=== PATIENT | female | born 1975 | race Caucasian/White ===

== ENCOUNTER 2022-12-17 09:48 | Outpatient (RCR) | payer BC, SELFPAY | END 2022-12-31 14:00 | disposition home or self-care (01) | LOC: PT 09:48 | PROVIDERS: PCP Internal Medicine; Visit Provider Nurse Practitioner Family | DX: M47.812 Spondylosis without myelopathy or radiculopathy, cervical region (principal) | CPT/HCPCS: 97010; 97012; 97035; 97140; G0283 ==

== ENCOUNTER 2022-12-28 12:44 | Outpatient (OUT) | payer BC, SELFPAY ==
--- NOTE | 2022-12-28 15:16 | PM.CN ---
Consult Note: HPI Data of Consult Patient: known to practice within the last 3 years Consult date: 12/28/22 Requesting Physician: Booker Lizarraga MD Primary Care Provider: Shaikh Patria MD Consult Narrative Reason for consult: Neck pain Narrative: this is a pleasant 47-year-old female who presents for assessment. She has increasing pain throughout her axial neck and bilateral shoulder region. She recently underwent a cervical MRI, which is significant for multiple levels of spondylosis and facet arthropathy, as well as mild stenosis and multiple levels. She engages in physical therapy, acupuncture, and massage, which provide mild relief. She utilizes baclofen, which helps her sleep. She was also recently prescribed gabapentin, but has not started taking this yet. She denies adverse medication side effects or loss of bowel or bladder control. cc:: CC: Booker Lizarraga MD Review of Systems ROS Status of ROS 10 or more systems reviewed and unremarkable except as noted in history and below Meds Home Medications and Allergies Home Medications Medication Instructions Recorded Confirmed Type baclofen 10 mg tablet 10 mg PO .HS PRN muscle spasm 12/28/22 12/28/22 History citalopram 20 mg tablet 20 mg PO .QD 12/28/22 12/28/22 History hydrocortisone 10 mg tablet 10 mg PO .Every Other Day 12/28/22 12/28/22 History levothyroxine 50 mcg tablet 50 mcg PO .QD 12/28/22 12/28/22 History pantoprazole 40 mg tablet,delayed 40 mg PO .QD 12/28/22 12/28/22 History release Allergies Allergy/AdvReac Type Severity Reaction Status Date / Time No Known Drug Allergies Allergy Verified 12/28/22 14:29 Exam Constitutional Common normals: no apparent distress, oriented x3 and healthy appearing Neck & C-Spine Other: tenderness to palpation throughout the cervical spine and paraspinal muscles which her. Pain is elicited with flexion, extension, lateral rotation of the cervical spine. Facet loading maneuvers are positive bilaterally. Coordination remains intact. Gait remains nonantalgic. Respiratory Common normals: normal respiratory effort Effort & inspection: able to speak in complete sentences Extremity Common normals: normal to inspection Neuro Common normals: oriented x3, CN's II-XII intact bilaterally and no focal motor deficits Psych Common normals: mental status grossly normal and cooperative Assessment and Plan Assessment and Plan (1) Cervical spondylosis: (2) Cervical stenosis of spinal canal: Plan this is a pleasant 47-year-old female who presents for assessment. She has failed physical and medical modalities, as listed above. Imaging was reviewed, as noted above. Given her symptomatology, imaging findings, and failure to respond to more conservative measures, it is prudent to attempt diagnostic bilateral C5, C6, C7 medial branch blocks with the intention of proceeding to radiofrequency ablation. She is in agreement with this plan. Medications were reviewed. I suggested that she could trial the gabapentin for now and see how effective it may be. She expressed understanding. She will follow-up after the procedure is completed.
[2023-01-05] MEDS: HEPARIN SODIUM (PORCINE) PF LOCK FLUSH 500 UNIT/5 ML SYRINGE IV (12:31)
[2023-01-05 13:32] LABS: Basophils Absolute Auto 0.1 10^3/uL (0.0-0.1); Eosinophils Absolute Auto 0.2 10^3/uL (0.0-0.7); Eosinophils Percent Auto 4.7 % (0.9-7.0); Hematocrit 38.6 % (36.0-48.0); Hemoglobin 12.7 g/dL (12.0-16.0); Immature Granulocytes Abs Auto 0.01 10^3/uL (0.00-0.03); Immature Granulocytes Pct Auto 0.2 % (0.0-0.5); Lymphocytes Absolute Auto 1.8 10^3/uL (1.2-3.8); Lymphocytes Percent Auto 34.7 % (20.5-60.0); Mean Corpuscular HGB Conc 32.9 g/dL (29.9-35.2); Mean Corpuscular Hemoglobin 30.1 pg (26.7-34.0); Mean Corpuscular Volume 91.5 fL (81.0-99.0); Mean Platelet Volume 9.3 fL (9.5-13.5); Monocytes Absolute Auto 0.4 10^3/uL (0.3-0.8); Monocytes Percent Auto 8.4 % (1.7-12.0); Neutrophils Absolute Auto 2.6 10^3/uL (1.4-6.5); Platelet Count 273 10^3/uL (150-450); Red Blood Count 4.22 10^6/uL (4.20-5.40); Red Cell Distribution Width 12.6 % (11.0-15.0); White Blood Count 5.1 10^3/uL (4.0-11.0)
[2023-01-05 13:48] LABS: Erythrocyte Sedimentation Rate 24 mm/hr (<=20)
[2023-01-05 14:37] LABS: Alanine Aminotransferase 25 U/L (14-59); Albumin Level 3.5 g/dL (3.4-5.0); Alkaline Phosphatase 91 U/L (46-116); Aspartate Amino Transferase 27 U/L (15-37); BUN Creatinine Ratio 15.9; Bilirubin Total 0.5 mg/dL (0.2-1.0); Calcium 9.4 mg/dL (8.5-10.1); Carbon Dioxide 25.9 mmol/L (21.0-32.0); Chloride 104 mmol/L (98-107); Estimated GFR (African America >60 (>=60); Estimated GFR (Non-African Ame >60 (>=60); Globulin 3.6 g/dL; Glucose 84 mg/dL (74-106); Potassium 3.9 mmol/L (3.5-5.1); Sodium 140 mmol/L (136-145); Total Protein 7.1 g/dL (6.4-8.2)
[2023-01-05 16:54] LABS: C Reactive Protein <0.2 mg/dL (<=1.0)
[2023-01-06 07:09] LABS: Rheumatoid Factor (RF) <10.0 IU/mL (<14.0)
[2023-01-06 14:14] LABS: ANA Direct Negative (Negative)
== END 2022-12-28 13:30 | disposition home or self-care (01) ==
LOC: PM 03-09 12:44
PROVIDERS: PCP Internal Medicine; Visit Provider Anesthesiology
DX: M47.812 Spondylosis without myelopathy or radiculopathy, cervical region (principal); M48.02 Spinal stenosis, cervical region; M13.0 Polyarthritis, unspecified
CPT/HCPCS: 36415; 80053; 85025; 85652; 86038; 86140; 86430; G0463

== ENCOUNTER 2023-01-05 10:30 | Outpatient (OUT) | payer BC, SELFPAY | END 2023-01-05 10:31 | disposition home or self-care (01) | LOC: HEMC 01-14 09:19 | PROVIDERS: PCP Internal Medicine; Visit Provider Internal Medicine Hematology & Oncology | DX: M13.0 Polyarthritis, unspecified (principal); C50.919 Malignant neoplasm of unspecified site of unspecified female breast | CPT/HCPCS: 36415; 80053; 85025; 85652; 86038; 86140; 86430; G0463 ==

== ENCOUNTER 2023-01-11 06:40 | Day surgery (SDC) | payer BC, SELFPAY ==
[2023-01-11 06:53] VITALS: BP 101/65; PULSE 87; RESP 16; TEMP 36.6; O2SAT 98
[2023-01-11 07:34] VITALS: BP 96/63; PULSE 82; RESP 18; O2SAT 96
[2023-01-11] MEDS: BUPIVACAINE HCL 0.25% PF 25 MG/10 ML VIAL INJ (07:37)
[2023-01-11] MEDS: DEXAMETHASONE SODIUM PHOSPHATE 10 MG/ML VIAL INJ (07:39)
[2023-01-11] MEDS: LIDOCAINE HCL 2% PF 100 MG/5 ML VIAL INJ (07:39)
[2023-01-11 07:41] VITALS: BP 96/59; PULSE 64; RESP 18; O2SAT 95
--- NOTE | 2023-01-11 07:41 | W.PM.PROCNOT ---
Date of procedure: 01/11/23 Pre-op diagnosis: cervical spondylosis Post-op diagnosis: same Procedure: Bilateral C5, 6, 7 medial branch block Medications: Bupivacaine 0.25% 4cc The patient was seen and examined in the preoperative holding area.? The informed consent was obtained and placed on the chart.? The patient was brought to the medical procedure unit and placed in the prone position.? A timeout was completed verifying correct patient, procedure site, positioning, plan, and special equipment.? Using aseptic technique, the needle was placed at left C5.? Under direct fluoroscopic visualization, a Quincke tip needle was advanced to the midpoint of the waist of the articular pillar at the respective medial branch segment. The above-mentioned injectate was placed in a 1 mL aliquot proceeded by negative aspiration.? The needle was removed.? The procedure was completed at all left C6, 7. The same procedure, at the same levels, was then completed on the right side. Insertion site was covered.? Patient was taken to the postprocedural recovery area and monitored for an appropriate length of time before found suitable for discharge in the accompaniment of a responsible adult. Surgeon: Booker Lizarraga Condition: stable
== END 2023-01-11 07:46 | disposition home or self-care (01) ==
PROVIDERS: PCP Internal Medicine; Visit Provider Anesthesiology
DX: M47.812 Spondylosis without myelopathy or radiculopathy, cervical region (principal)
CPT/HCPCS: 64490; 64491; J1100

== ENCOUNTER 2023-01-13 15:05 | Outpatient (RCR) | payer BC, SELFPAY | END 2023-02-04 16:20 | disposition home or self-care (01) | LOC: OT 15:05 | PROVIDERS: PCP Internal Medicine; Visit Provider Internal Medicine | DX: M54.2 Cervicalgia (principal) | CPT/HCPCS: 97110; 97140; 97166 ==

== ENCOUNTER 2023-01-14 07:35 | Outpatient (OUT) | payer BC, SELFPAY ==
[2023-01-14 09:25] VITALS: BP 111/73; PULSE 71; RESP 18; TEMP 36.2; O2SAT 95
[2023-01-14] MEDS: COSYNTROPIN 0.25 MG VIAL IM (09:47)
--- NOTE | 2023-01-14 09:53 | PC.NURSE ---
Pt is here for port blood draw and Cosyntropin IM, cortisol level drawn, Cosyntropin given at 0947, will draw next cortisol level at 1017 then 1047. Patient tolerated port blood draw well and injection well.
[2023-01-14] MEDS: HEPARIN SODIUM (PORCINE) PF LOCK FLUSH 500 UNIT/5 ML SYRINGE IV (10:52)
== END 2023-01-14 07:36 | disposition home or self-care (01) ==
LOC: INF 07:36
PROVIDERS: PCP Internal Medicine; Visit Provider Internal Medicine
DX: E27.3 Drug-induced adrenocortical insufficiency (principal); E03.9 Hypothyroidism, unspecified
CPT/HCPCS: 36415; 36591; 82533

== ENCOUNTER 2023-01-29 10:11 | Outpatient (OUT) | payer BC, SELFPAY ==
--- NOTE | 2023-01-29 10:25 | P.CN_ITS ---
Consult Note: HPI Data of Consult Patient: known to practice within the last 3 years Consult date: 01/29/23 Requesting Physician: PATRICK TOMLIN NP Primary Care Provider: Shaikh Patria MD Consult Narrative Narrative: Patient is here for f/u of bilat cervical MBB done 01/11/23 . She recieved 90% relief of pain and increased fx for several hours. She would like to proceed with second MBB of same region. Pain today is bilat neck worse with ROM. No radiculopathy . No new sensorimotor or bowel or bladder issues. No adverse medication SE. Medication regimen assists patient with being better able to complete ADLs. cc:: CC: PATRICK TOMLIN NP Review of Systems ROS Status of ROS 10 or more systems reviewed and unremarkable except as noted in history and below [facility] Medical History (Updated 01/29/23 @ 10:43 by PATRICK TOMLIN NP) Surgical History Meds Home Medications and Allergies Home Medications Medication Instructions Recorded Confirmed Type baclofen 10 mg tablet 10 mg PO .HS PRN muscle spasm 12/28/22 01/11/23 History citalopram 20 mg tablet 20 mg PO .QD 12/28/22 01/11/23 History hydrocortisone 10 mg tablet 10 mg PO .Every Other Day 12/28/22 01/11/23 History levothyroxine 50 mcg tablet 50 mcg PO .QD 12/28/22 01/11/23 History pantoprazole 40 mg tablet,delayed 40 mg PO .QD 12/28/22 01/11/23 History release Allergies Allergy/AdvReac Type Severity Reaction Status Date / Time No Known Drug Allergies Allergy Verified 12/28/22 14:29 Exam Constitutional Documenting provider has reviewed patient's vital signs: yes Common normals: no apparent distress, average body habitus, oriented x3, no limitations, healthy appearing, alert and well nourished General appearance: cooperative and comfortable Orientation/consciousness: Yes awake, Yes oriented to person, Yes oriented to place and Yes oriented to time [facility] Common normals: normocephalic and moist oral mucous membranes Neck & C-Spine Common normals: supple General: normal visual inspection, trachea midline and tenderness Other: trigger point areas to left trapezius area. muscle strength 5/5 bilat UE with intact sensation Respiratory Common normals: normal respiratory effort, no retractions and no use of accessory muscles Effort & inspection: able to speak in complete sentences and symmetric chest movement Extremity Common normals: normal to inspection, full ROM and normal capillary refill Assessment and Plan Assessment and Plan (1) Cervical spondylosis: Plan schedule second dx MBB bilat cervical C5, 6, 7 under fluoroscopy
== END 2023-01-29 10:12 | disposition home or self-care (01) ==
PROVIDERS: PCP Internal Medicine; Visit Provider Nurse Practitioner
DX: M47.812 Spondylosis without myelopathy or radiculopathy, cervical region (principal)
CPT/HCPCS: G0463

== ENCOUNTER 2023-02-01 10:16 | Outpatient (OUT) | payer BC, SELFPAY ==
[2023-02-01 13:05] LABS: Anion Gap 12.8; BUN Creatinine Ratio 17.7; Calcium 9.3 mg/dL (8.5-10.1); Carbon Dioxide 26.4 mmol/L (21.0-32.0); Chloride 104 mmol/L (98-107); Estimated GFR (African America >60 (>=60); Estimated GFR (Non-African Ame >60 (>=60); Free T3 2.64 pg/mL (2.18-3.98); Glucose 90 mg/dL (74-106); Potassium 4.2 mmol/L (3.5-5.1); Sodium 139 mmol/L (136-145); Thyroid Stimulating Hormone 2.392 uIU/mL (0.358-3.740)
[2023-02-01 14:40] LABS: Free T4 0.89 ng/dL (0.76-1.46)
[2023-02-02 13:08] LABS: ACTH, Plasma 7.1 pg/mL (7.2-63.3)
== END 2023-02-01 10:17 | disposition home or self-care (01) ==
LOC: LAB 10:18
PROVIDERS: PCP Internal Medicine; Visit Provider Internal Medicine
DX: E27.3 Drug-induced adrenocortical insufficiency (principal); E03.9 Hypothyroidism, unspecified
CPT/HCPCS: 36415; 80048; 82024; 82533; 84439; 84443; 84481

== ENCOUNTER 2023-02-09 09:52 | Outpatient (OUT) | payer BC, SELFPAY | END 2023-02-09 09:53 | disposition home or self-care (01) | LOC: INF 09:53 | PROVIDERS: PCP Internal Medicine; Visit Provider Internal Medicine Hematology & Oncology | DX: C50.919 Malignant neoplasm of unspecified site of unspecified female breast (principal) | CPT/HCPCS: G0463 ==

== ENCOUNTER 2023-02-09 11:21 | Outpatient (OUT) | payer BC, SELFPAY ==
--- NOTE | 2023-02-09 11:26 | MM_ITS ---
Patient: ALLYSON HANCOCK Exam Date: 02/09/2023 : 1975 Gender:F Ordering : Jaci [place] Admission #: [id number] Family : SHAIKH Krystian HEARN . Order #: [id number] CLICK HERE TO VIEW EXAM RADIOLOGY REPORT PROCEDURE: MM TOMOSYNTHESIS DIAGNOSTIC BI COMPARISON: MAMMO POST BIOPSY RIGHT, 05/26/2021. MG MAMM RT DIAG FU, 05/13/2021. MG MAMM SCREEN 3D YUAN CAD, 04/22/2021. MG MAMM YUAN SCRN W CAD DIG, 07/05/2014. 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 LOCATION: [facility] BREAST COMPOSITION: Heterogeneously dense,which may obscure small masses. FINDINGS: DIAGNOSTIC CATEGORY 2--BENIGN FINDING: RIGHT BREAST: No significant suspicious finding. New rim calcified oil cyst at site of prior surgery, resection of previously seen mass. LEFT BREAST: No significant suspicious finding. No significant change has occurred. RECOMMENDATIONS: ROUTINE MAMMOGRAM AND CLINICAL EVALUATION IN 12 MONTHS. PLEASE NOTE: A NORMAL MAMMOGRAM DOES NOT EXCLUDE THE POSSIBILITY OF BREAST CANCER. A CLINICALLY SUSPICIOUS PALPABLE LUMP SHOULD BE BIOPSIED. Dictated by: Magdiel Leiva M.D. on 02/09/2023 at 12:40 Approved by: Magdiel Leiva M.D. on 02/09/2023 at 13:02
== END 2023-02-09 11:22 | disposition home or self-care (01) ==
LOC: MAMMO 11:21
PROVIDERS: PCP Internal Medicine; Visit Provider Internal Medicine Hematology & Oncology
DX: C50.911 Malignant neoplasm of unspecified site of right female breast (principal); Z98.890 Other specified postprocedural states; N60.01 Solitary cyst of right breast
CPT/HCPCS: 77066; G0279

== ENCOUNTER 2023-02-15 07:03 | Day surgery (SDC) | payer BC, SELFPAY ==
[2023-02-15 07:20] VITALS: BP 110/75; PULSE 68; RESP 16; TEMP 36.4; O2SAT 100
--- NOTE | 2023-02-15 08:00 | P.ON_ITS ---
Date of procedure: 02/15/23 Pre-op diagnosis: Lumbosacral spondylosis Post-op diagnosis: same Procedure: Procedure: L3-4, L4-5 radiofrequency ablation Medications: Bupivacaine 0.25% 6cc, kenalog 80mg The patient was seen and examined in the preoperative holding area.? The site w as marked.? Written informed consent was obtained and placed on the chart.? The patient was brought to the medical procedure unit and placed in the prone position.? A timeout was completed verifying correct patient, procedure, positioning, and special requirements.? The skin overlying the target points, the designated medial branch, were prepped and draped in the usual sterile fashion.? The target point was achieved with a 20-gauge 15 cm with a 10 mm curved active tip radiofrequency cannula under direct fluoroscopic visualization.? The needle was inserted at level L3 on the right side. Needle tip position was confirmed with lateral fluoroscopic position.? Motor stimulation was carried out at 2 Hz up to 5 volts with the absence of extremity activity.? This was repeated at level L4, L5 on right side.?? Sensory stimulation was carried out.? Concordant pain was realized at the above- mentioned sites.? Then radiofrequency lesioning was carried out times 90 seconds at 80 degrees times 2 lesions at each level.? The radiofrequency probe was removed prior to cannula removal.? The above-mentioned injectate was placed in 1 mL increments.? The needle was removed.? Insertion sites were covered.? The patient was taken to the postoperative recovery area and monitored for an appropriate length of time before being found suitable for discharge in the company of a responsible adult. The same procedure was then completed on the left side. Anesthesia: MAC Surgeon: Booker Lizarraga Pathology: none sent Condition: stable Disposition: no change
[2023-02-15] MEDS: BUPIVACAINE HCL 0.25% PF 25 MG/10 ML VIAL INJ (08:10)
[2023-02-15] MEDS: DEXAMETHASONE SODIUM PHOSPHATE 10 MG/ML VIAL INJ (08:10)
[2023-02-15] MEDS: LIDOCAINE HCL 2% PF 100 MG/5 ML VIAL INJ (08:11)
--- NOTE | 2023-02-15 08:20 | W.PM.PROCNOT ---
Date of procedure: 02/15/23 Pre-op diagnosis: Cervical spondylosis Post-op diagnosis: same Procedure: Procedure: Bilateral C5-6, C6-7 medial branch block Medications: Bupivacaine 0.25% 4cc The patient was seen and examined in the preoperative holding area.? The informed consent was obtained and placed on the chart.? The patient was brought to the medical procedure unit and placed in the prone position.? A timeout was completed verifying correct patient, procedure site, positioning, plan, and special equipment.? Using aseptic technique, the needle was placed at left C5.? Under direct fluoroscopic visualization, a Quincke tip needle was advanced to the midpoint of the waist of the articular pillar at the respective medial branch segment. The above-mentioned injectate was placed in a 1 mL aliquot proceeded by negative aspiration.? The needle was removed.? The procedure was completed at all left C6, 7. The same procedure, at the same levels, was then completed on the right side. Insertion site was covered.? Patient was taken to the postprocedural recovery area and monitored for an appropriate length of time before found suitable for discharge in the accompaniment of a responsible adult. Anesthesia: Local Surgeon: Booker Lizarraga Pathology: none sent Condition: stable Disposition: no change
[2023-02-15 13:39] VITALS: BP 117/72; BP 126/72; PULSE 60; PULSE 61; RESP 18; O2SAT 98; O2SAT 99
== END 2023-02-15 08:21 | disposition home or self-care (01) ==
PROVIDERS: PCP Internal Medicine; Visit Provider Anesthesiology
DX: M47.812 Spondylosis without myelopathy or radiculopathy, cervical region (principal)
CPT/HCPCS: 64490; 64491; J1100

== ENCOUNTER 2023-02-25 08:10 | Outpatient (OUT) | payer BC, SELFPAY ==
--- NOTE | 2023-02-25 08:18 | P.CN_ITS ---
Consult Note: HPI Data of Consult Patient: known to practice within the last 3 years Requesting Physician: Elsie Kwong NP Primary Care Provider: Shaikh Patria MD Consult Narrative Reason for consult: MBB bilateral C5-6 C6-7 #2 F/U cc:: CC: Elsie Kwong NP Review of Systems ROS Status of ROS 10 or more systems reviewed and unremarkable except as noted in history and below [facility] Medical History (Updated 02/25/23 @ 08:38 by Elsie Kwong NP) Surgical History Meds Home Medications and Allergies Home Medications Medication Instructions Recorded Confirmed Type baclofen 10 mg tablet 10 mg PO .HS PRN muscle spasm 12/28/22 02/15/23 History citalopram 20 mg tablet 20 mg PO .QD 12/28/22 02/15/23 History hydrocortisone 10 mg tablet 10 mg PO .Every Other Day 12/28/22 02/15/23 History levothyroxine 50 mcg tablet 50 mcg PO .QD 12/28/22 02/15/23 History pantoprazole 40 mg tablet,delayed 40 mg PO .QD 12/28/22 02/15/23 History release Allergies Allergy/AdvReac Type Severity Reaction Status Date / Time No Known Drug Allergies Allergy Verified 12/28/22 14:29 Exam Constitutional Common normals: no apparent distress, oriented x3, healthy appearing, alert and well nourished General appearance: cooperative HENCT Common normals: normocephalic Head and scalp: normocephalic Mouth: oral and palatal mucosa normal Eye Common normals: PERRL Pupil: PERRL Neck & C-Spine Common normals: full ROM (mild pain with ROM) General: normal visual inspection Cervical spine: cervical ROM normal and pain with cervical ROM Other: bilateral neck tightness radiating from cervical to upper shoulders Chest Common normals: inspection of chest normal Respiratory Common normals: normal respiratory effort, no retractions and no use of accessory muscles Back & Pelvis Common normals: thoracic and lumbar spine normal to inspection, no thoracic nor lumbar tenderness and thoraco-lumbar ROM normal Extremity Common normals: normal to inspection, full ROM, no clubbing, cyanosis or edema and no pedal edema Neuro Common normals: oriented x3, CN's II-XII intact bilaterally, moves all extremities, no focal motor deficits, no sensory deficits noted, deep tendon reflexes 2+ bilaterally and gait normal Sensorium/orientation: alert Motor exam: strength 5/5 throughout and no movement abnormalities noted Psych Common normals: mental status grossly normal, thought process normal, cooperative, affect normal, speech normal and activity/motor behavior normal Speech: normal speech Thought process: normal thought process Assessment and Plan Assessment and Plan (1) Cervical spondylosis: (2) Muscle spasms of neck: Plan The patient had significant relief of over 80%, with increased range of motion, decreased pain with provocative maneuvers, and increased ability to perform ADLs after diagnostic bilateral C5/6 C6/7 block #2.?? The patient has had over 3 months of moderate to severe neck pain with functional impairment and inadequate response to conservative care including NSAIDS (unless there are contraindication such as concurrent blood thinners), multiple oral or topical pain medications, and home exercise program/physical therapy.? Patient has completed >6 weeks of guided home exercise program and/or formal physical therapy program without relief of their symptoms.? I have reviewed the imaging of the cervical spine and no red flags were identified.? The imaging reveals radiographic findings consistent with cervical facet arthropathy. The Oswestry Disability Index was completed, and the patient scored a 22%.? The patient noted the following:?? moderate pain, pain completing ADLs, pain restricts sleep to less than 6hrs, and pain restricts journeys over 2hrs. We discussed the risks and benefits of the procedure with the patient, and we are NOT planning on using sedation. Proceed with thermal RFA under fluoroscopy on bilateral C5/6 C6/7, will be done as two separate procedures once on the left side and once on the right side. Discussed procedure, risks/benefits, and follow up with patient. Continue on baclofen 10mg HS PRN for muscle spasms. F/u 4 weeks after RFA
== END 2023-02-25 08:11 | disposition home or self-care (01) ==
PROVIDERS: PCP Internal Medicine; Visit Provider Nurse Practitioner
DX: M54.50 Low back pain, unspecified (principal); M54.2 Cervicalgia; M25.552 Pain in left hip; M47.812 Spondylosis without myelopathy or radiculopathy, cervical region; M47.816 Spondylosis without myelopathy or radiculopathy, lumbar region; M62.838 Other muscle spasm
CPT/HCPCS: 72050; 72110; 73502; G0463

== ENCOUNTER 2023-02-25 08:37 | Outpatient (OUT) | payer BC, SELFPAY ==
--- NOTE | 2023-02-25 08:53 | XR_ITS ---
The [address] [address] Patient Name: ALLYSON HANCOCK MRN: [id number] date: 1975 Sex: F Assigned Patient Location: [facility] Current Patient Location: [facility] Accession/Order Number: [id number] Exam Date: 02/25/2023 09:05 Report Date: 02/25/2023 09:54 At the request of: DARLENE BENITEZ Procedure: XR cervical spine 5V EXAMINATION: XR cervical spine 5V HISTORY: Neck pain ; chronic COMPARISON: XR C-spine 10/08/2020 FINDINGS: BONES: Mild straightening of normal lordotic curvature. No fracture or spondylolisthesis. Multilevel mild degenerative facet arthropathy. DISC SPACES: Moderate narrowing C4-5, C5-C6 with prominent posterior disc-osteophyte complexes causing moderate foramen narrowing. Mild disc height reduction and C7-T1. PARASPINOUS: Negative. No paraspinous abnormality is seen. OTHER: Left subclavian Port-A-Cath. XR/XR cervical spine 5V IMPRESSION: 1. Multilevel moderate degenerative changes of cervical spine; not appreciably changed. Consider MRI for further evaluation. Electronically authenticated by: BARBER VASQUEZ Date: 02/25/2023 09:54
--- NOTE | 2023-02-25 08:53 | XR_ITS ---
The [address] [address] Patient Name: ALLYSON HANCOCK MRN: [id number] date: 1975 Sex: F Assigned Patient Location: [facility] Current Patient Location: [facility] Accession/Order Number: [id number] Exam Date: 02/25/2023 09:05 Report Date: 02/25/2023 09:49 At the request of: DARLENE BENITEZ Procedure: XR lumbar spine min 4V EXAMINATION: XR lumbar spine min 4V HISTORY: Low back pain, left hip pain ; chronic COMPARISON: XR L-spine 05/07/2021 FINDINGS: BONES: Mild right convex curvature of lumbar spine. Mild degenerative facet arthropathy L4-5, L5-S1. DISC SPACES: Mild narrowing L2-3, L3-4, L4-5. PARASPINOUS: Negative. No paraspinous abnormality is seen. OTHER: Negative. XR/XR lumbar spine min 4V IMPRESSION: 1. Mild degenerative changes of lumbar spine; not appreciably changed compared to 05/07/2021. Electronically authenticated by: BARBER VASQUEZ Date: 02/25/2023 09:49
--- NOTE | 2023-02-25 09:03 | XR_ITS ---
The [address] [address] Patient Name: ALLYSON HANCOCK MRN: [id number] date: 1975 Sex: F Assigned Patient Location: [facility] Current Patient Location: [facility] Accession/Order Number: [id number] Exam Date: 02/25/2023 09:05 Report Date: 02/25/2023 09:46 At the request of: DARLENE BENITEZ Procedure: XR hip LT min 2V PROCEDURE: XR hip LT min 2V HISTORY: Left hip pain , chronic COMPARISON: None. FINDINGS: BONES:No fracture, acute abnormality, or significant arthropathy. SOFT TISSUES:No visible soft tissue swelling. EFFUSION:None visible. OTHER: Bilateral fallopian tube clips within pelvis. XR/XR hip LT min 2V IMPRESSION: 1. No acute bone abnormality or significant degenerative joint disease of the left hip. Electronically authenticated by: BARBER VASQUEZ Date: 02/25/2023 09:46
== END 2023-02-25 08:38 | disposition home or self-care (01) ==
LOC: RAD 08:39
PROVIDERS: PCP Internal Medicine; Visit Provider Internal Medicine Rheumatology
DX: M54.50 Low back pain, unspecified (principal); M54.2 Cervicalgia; M25.552 Pain in left hip; M47.812 Spondylosis without myelopathy or radiculopathy, cervical region; M47.816 Spondylosis without myelopathy or radiculopathy, lumbar region
CPT/HCPCS: 72050; 72110; 73502

== ENCOUNTER 2023-03-03 07:52 | Outpatient (OUT) | payer BC, SELFPAY ==
[2023-03-04 15:11] LABS: Cortisol - AM 0.6 ug/dL (6.2-19.4)
== END 2023-03-03 07:53 | disposition home or self-care (01) ==
PROVIDERS: PCP Internal Medicine; Visit Provider Internal Medicine Hematology & Oncology
DX: C50.911 Malignant neoplasm of unspecified site of right female breast (principal); M25.50 Pain in unspecified joint; M13.0 Polyarthritis, unspecified
CPT/HCPCS: 36415; 82533

== ENCOUNTER 2023-03-15 07:04 | Day surgery (SDC) | payer BC, SELFPAY ==
[2023-03-15 07:17] VITALS: BP 118/86; PULSE 71; RESP 16; TEMP 36.3; O2SAT 100
[2023-03-15] MEDS: DEXAMETHASONE SODIUM PHOSPHATE 10 MG/ML VIAL INJ (08:21)
[2023-03-15] MEDS: BUPIVACAINE HCL 0.25% PF 25 MG/10 ML VIAL 2 ML INJ (08:21)
[2023-03-15] MEDS: LIDOCAINE HCL 2% 400 MG/20 ML MDV 10 ML INJ (08:21)
[2023-03-15 08:22] VITALS: BP 116/74; PULSE 58; RESP 20; O2SAT 97
[2023-03-15 08:23] VITALS: RESP 20; O2SAT 97
[2023-03-15 08:24] VITALS: BP 111/64; PULSE 56
--- NOTE | 2023-03-15 08:42 | P.ON_ITS ---
Date of procedure: 03/15/23 Pre-op diagnosis: Cervical spondylosis Post-op diagnosis: same as pre-op Procedure: Procedure: Left C5-6, C6-7 radiofrequency ablation Medications: Bupivacaine 0.25% 3cc, lidocaine 1% 3cc, dexamethasone 10mg The patient was seen and examined in the preoperative holding area.? The site was marked.? Written informed consent was obtained and placed on the chart.? The patient was brought to the medical procedure unit and placed in the prone position.? A timeout was completed verifying correct patient, procedure, positioning, and special requirements.? The skin overlying the target points, the designated medial branch, were prepped and draped in the usual sterile fashion.? The target point was achieved with a 20-gauge 15 cm with a 10 mm curved active tip radiofrequency cannula under direct fluoroscopic visualization.? The needle was inserted at level left on the C5 side. Needle tip position was confirmed with lateral fluoroscopic position.? Motor stimulation was carried out at 2 Hz up to 5 volts with the absence of extremity activity.? This was repeated at level C6, 7 on left side.?? Sensory stimulation was carried out.? Concordant pain was realized at the above- mentioned sites.? Then radiofrequency lesioning was carried out times 90 seconds at 80 degrees times 2 lesions at each level.? The radiofrequency probe was removed prior to cannula removal.? The above-mentioned injectate was placed in 1 mL increments.? The needle was removed.? Insertion sites were covered.? The patient was taken to the postoperative recovery area and monitored for an appropriate length of time before being found suitable for discharge in the company of a responsible adult. Anesthesia: Local and None Surgeon: Booker Lizarraga Pathology: none sent Condition: stable Disposition: no change
== END 2023-03-15 08:34 | disposition home or self-care (01) ==
PROVIDERS: PCP Internal Medicine; Visit Provider Anesthesiology
DX: M47.812 Spondylosis without myelopathy or radiculopathy, cervical region (principal)
CPT/HCPCS: 64633; 64634; J1100

== ENCOUNTER 2023-03-29 06:45 | Day surgery (SDC) | payer BC, SELFPAY ==
[2023-03-29 07:12] VITALS: BP 118/67; PULSE 51; RESP 16; TEMP 36.7; O2SAT 99
[2023-03-29 07:38] VITALS: BP 134/75; PULSE 52; RESP 18; O2SAT 97
[2023-03-29] MEDS: BUPIVACAINE HCL 0.25% PF 25 MG/10 ML VIAL INJ (07:42)
[2023-03-29] MEDS: LIDOCAINE HCL 2% 400 MG/20 ML MDV 15 ML INJ (07:43)
[2023-03-29] MEDS: DEXAMETHASONE SODIUM PHOSPHATE 10 MG/ML VIAL INJ (07:43)
[2023-03-29 07:44] VITALS: BP 135/77; PULSE 49; RESP 18; O2SAT 98
--- NOTE | 2023-03-29 07:49 | P.ON_ITS ---
Date of procedure: 03/29/23 Pre-op diagnosis: cervical spondylosis Post-op diagnosis: same as pre-op Procedure: Procedure: Right C5-6, C6-7 radiofrequency ablation Medications: Bupivacaine 0.25% 3cc, lidocaine 1% 5cc, dexamethasone 10mg The patient was seen and examined in the preoperative holding area.? The site was marked.? Written informed consent was obtained and placed on the chart.? The patient was brought to the medical procedure unit and placed in the prone position.? A timeout was completed verifying correct patient, procedure, positioning, and special requirements.? The skin overlying the target points, the designated medial branch, were prepped and draped in the usual sterile fashion.? The target point was achieved with a 20-gauge 15 cm with a 10 mm curved active tip radiofrequency cannula under direct fluoroscopic visualization.? The needle was inserted at level C5 on the right side. Needle tip position was confirmed with lateral fluoroscopic position.? Motor stimulation was carried out at 2 Hz up to 5 volts with the absence of extremity activity.? This was repeated at level C6, 7 on right side.?? Sensory stimulation was carried out.? Concordant pain was realized at the above- mentioned sites.? Then radiofrequency lesioning was carried out times 90 seconds at 80 degrees times 2 lesions at each level.? The radiofrequency probe was removed prior to cannula removal.? The above-mentioned injectate was placed in 1 mL increments.? The needle was removed.? Insertion sites were covered.? The patient was taken to the postoperative recovery area and monitored for an appropriate length of time before being found suitable for discharge in the company of a responsible adult. Anesthesia: Local Surgeon: Booker Lizarraga Pathology: none sent Condition: stable Disposition: no change
== END 2023-03-29 07:52 | disposition home or self-care (01) ==
PROVIDERS: PCP Internal Medicine; Visit Provider Anesthesiology
DX: M47.812 Spondylosis without myelopathy or radiculopathy, cervical region (principal)
CPT/HCPCS: 64633; 64634; J1100

== ENCOUNTER 2023-04-08 08:42 | Outpatient (OUT) | payer BC, SELFPAY ==
[2023-04-09 16:08] LABS: Cortisol - AM 0.6 ug/dL (6.2-19.4)
== END 2023-04-08 08:43 | disposition home or self-care (01) ==
PROVIDERS: PCP Internal Medicine; Visit Provider Internal Medicine Hematology & Oncology
DX: C50.911 Malignant neoplasm of unspecified site of right female breast (principal); M25.50 Pain in unspecified joint; M13.0 Polyarthritis, unspecified
CPT/HCPCS: 36415; 82533

== ENCOUNTER 2023-04-08 08:52 | Outpatient (OUT) | payer BC, SELFPAY ==
[2023-04-08 09:53] LABS: Basophils Absolute Auto 0.1 10^3/uL (0.0-0.1); Basophils Percent Auto 0.8 % (0.2-2.0); Eosinophils Absolute Auto 0.1 10^3/uL (0.0-0.7); Eosinophils Percent Auto 1.5 % (0.9-7.0); Hematocrit 42.4 % (36.0-48.0); Hemoglobin 13.4 g/dL (12.0-16.0); Immature Granulocytes Abs Auto 0.07 10^3/uL (0.00-0.03); Immature Granulocytes Pct Auto 1.1 % (0.0-0.5); Lymphocytes Percent Auto 30.2 % (20.5-60.0); Mean Corpuscular HGB Conc 31.6 g/dL (29.9-35.2); Mean Corpuscular Hemoglobin 30.1 pg (26.7-34.0); Mean Corpuscular Volume 95.3 fL (81.0-99.0); Mean Platelet Volume 9.1 fL (9.5-13.5); Monocytes Absolute Auto 0.4 10^3/uL (0.3-0.8); Monocytes Percent Auto 5.9 % (1.7-12.0); Neutrophils Percent Auto 60.5 % (43.0-75.0); Platelet Count 251 10^3/uL (150-450); Red Blood Count 4.45 10^6/uL (4.20-5.40); White Blood Count 6.6 10^3/uL (4.0-11.0)
[2023-04-08 10:14] LABS: Estimated Average Glucose 111 mg/dL; Glycohemoglobin A1C 5.5 % (4.5-6.2)
[2023-04-08 10:23] LABS: Alanine Aminotransferase 21 U/L (14-59); Albumin Level 3.9 g/dL (3.4-5.0); Alkaline Phosphatase 112 U/L (46-116); Anion Gap 12.9; Aspartate Amino Transferase 12 U/L (15-37); BUN Creatinine Ratio 31.9; Bilirubin Total 0.5 mg/dL (0.2-1.0); Calcium 9.6 mg/dL (8.5-10.1); Carbon Dioxide 25.5 mmol/L (21.0-32.0); Chloride 103 mmol/L (98-107); Chol HDL Ratio 3.4; Cholesterol 313 mg/dL (<=200); Estimated GFR (African America >60 (>=60); Estimated GFR (Non-African Ame >60 (>=60); Globulin 3.9 g/dL; Glucose 80 mg/dL (74-106); HDL Cholesterol 91 mg/dL (40-60); Potassium 4.4 mmol/L (3.5-5.1); Sodium 137 mmol/L (136-145); Thyroid Stimulating Hormone 2.952 uIU/mL (0.358-3.740); Total Protein 7.8 g/dL (6.4-8.2); Triglycerides 108 mg/dL (<=150); VLDL CHOLESTEROL 21.6 mg/dL
== END 2023-04-08 08:53 | disposition home or self-care (01) ==
LOC: LAB 08:53
PROVIDERS: PCP Internal Medicine; Visit Provider Internal Medicine
DX: Z00.00 Encounter for general adult medical examination without abnormal findings (principal); C50.911 Malignant neoplasm of unspecified site of right female breast; M25.50 Pain in unspecified joint; M13.0 Polyarthritis, unspecified
CPT/HCPCS: 36415; 80053; 80061; 82533; 83036; 84443; 85025

== ENCOUNTER 2023-04-12 20:42 | Outpatient (REF) | payer BC, SELFPAY ==
[2023-04-15 16:10] LABS: Age Gdln ACOG Testing Note (.); HPV Aptima Negative (Negative); IGP, Aptima HPV, rfx 16/18,45 Note (.)
== END 2023-04-12 20:43 | disposition home or self-care (01) ==
LOC: LAB 20:42
PROVIDERS: PCP Internal Medicine; Visit Provider Obstetrics & Gynecology
DX: Z12.4 Encounter for screening for malignant neoplasm of cervix (principal)
CPT/HCPCS: 87624; G0145

== ENCOUNTER 2023-04-28 10:27 | Outpatient (OUT) | payer BC, SELFPAY ==
[2023-04-28 11:47] LABS: Albumin Level 3.8 g/dL (3.4-5.0); Anion Gap 10.8; BUN Creatinine Ratio 19.4; Calcium 8.8 mg/dL (8.5-10.1); Carbon Dioxide 25.6 mmol/L (21.0-32.0); Chloride 103 mmol/L (98-107); Estimated GFR (African America >60 (>=60); Estimated GFR (Non-African Ame >60 (>=60); Free T3 2.14 pg/mL (2.18-3.98); Glucose 76 mg/dL (74-106); Potassium 4.4 mmol/L (3.5-5.1); Sodium 135 mmol/L (136-145); Thyroid Stimulating Hormone 0.826 uIU/mL (0.358-3.740)
[2023-04-28 12:03] LABS: Free T4 1.11 ng/dL (0.76-1.46)
== END 2023-04-28 10:28 | disposition home or self-care (01) ==
LOC: LAB 10:30
PROVIDERS: PCP Internal Medicine; Visit Provider Internal Medicine
DX: E03.9 Hypothyroidism, unspecified (principal); E27.3 Drug-induced adrenocortical insufficiency
CPT/HCPCS: 36415; 80069; 82306; 84439; 84443; 84481

== ENCOUNTER 2023-04-28 14:37 | Outpatient (OUT) | payer BC, SELFPAY ==
--- NOTE | 2023-04-28 14:55 | P.CN_ITS ---
Consult Note: HPI Data of Consult Patient: known to practice within the last 3 years Requesting Physician: Elsie Kwong NP Primary Care Provider: Shaikh Patria MD Consult Narrative Reason for consult: f/u Narrative: Tenisha Harrington a pleasant 48 year old female presents for evaluation and management of chronic neck pain. Patient recently had right and left C5-6 C6-7 RFAs with mild to no relief. Today rating pain 4/10 and burning. Patient utilizes biofreeze, heat, and ice with mild relief. Ibuprofen mildly beneficial. Patient would like to discuss additional treatment options. cc:: CC: Elsie Kwong NP Review of Systems ROS Status of ROS 10 or more systems reviewed and unremarkable except as noted in history and below Musculoskeletal Reports: neck pain PFSH PFSH Medical History Breast cancer ?C50.919 - Malignant neoplasm of unspecified site of unspecified female breast (ICD-10) Carpal tunnel syndrome ?G56.00 - Carpal tunnel syndrome, unspecified upper limb (ICD-10) Former smoker ?Z87.891 - Personal history of nicotine dependence (ICD-10) High cholesterol ?E78.00 - Pure hypercholesterolemia, unspecified (ICD-10) Low back pain ?M54.50 - Low back pain, unspecified (ICD-10) Neck pain ?M54.2 - Cervicalgia (ICD-10) Numbness and tingling ?R20.0 - Anesthesia of skin (ICD-10) ?R20.2 - Paresthesia of skin (ICD-10) Osteoarthritis ?M19.90 - Unspecified osteoarthritis, unspecified site (ICD-10) TMJ (dislocation of temporomandibular joint) ?S03.00XA - Dislocation of jaw, unspecified side, initial encounter (ICD-10) Upper back pain ?M54.9 - Dorsalgia, unspecified (ICD-10) Surgical History H/O foot surgery ?Z98.890 - Other specified postprocedural states (ICD-10) Hx of cholecystectomy ?Z90.49 - Acquired absence of other specified parts of digestive tract (ICD- 10) Hx of tubal ligation ?Z98.51 - Tubal ligation status (ICD-10) S/P lumpectomy of breast ?Z98.890 - Other specified postprocedural states (ICD-10) Meds Home Medications and Allergies Home Medications Medication Instructions Recorded Confirmed Type baclofen 10 mg tablet 10 mg PO .HS PRN muscle spasm 12/28/22 03/29/23 History citalopram 20 mg tablet 20 mg PO .QD 12/28/22 03/29/23 History hydrocortisone 10 mg tablet 10 mg PO .Every Other Day 12/28/22 03/29/23 History levothyroxine 50 mcg tablet 50 mcg PO .QD 12/28/22 03/29/23 History pantoprazole 40 mg tablet,delayed 40 mg PO .QD 12/28/22 03/29/23 History release Allergies Allergy/AdvReac Type Severity Reaction Status Date / Time No Known Drug Allergies Allergy Verified 03/29/23 07:25 Exam Constitutional Documenting provider has reviewed patient's vital signs: yes Common normals: no apparent distress, oriented x3, healthy appearing, alert and well nourished General appearance: cooperative HENMT Common normals: normocephalic, hearing grossly normal bilaterally and moist oral mucous membranes Head and scalp: normocephalic Eye Common normals: PERRL Pupil: PERRL Neck & C-Spine Common normals: full ROM General: normal visual inspection Cervical spine: pain with cervical ROM, cervical spine tenderness and paracervical muscle tenderness Chest Common normals: inspection of chest normal Respiratory Common normals: normal respiratory effort, no retractions and no use of accessory muscles Neuro Common normals: oriented x3, CN's II-XII intact bilaterally, moves all extremities, no focal motor deficits, no sensory deficits noted, deep tendon reflexes 2+ bilaterally and gait normal Sensorium/orientation: alert Motor exam: strength 5/5 throughout and no movement abnormalities noted Psych Common normals: mental status grossly normal, thought process normal, cooperative, affect normal, speech normal and activity/motor behavior normal Speech: normal speech Thought process: normal thought process Results Additional Findings Additional findings: I have checked an [facility] report on this patient today and there are no aberrancies noted in the prescribing history.?? A drug screen was completed and reviewed within the last year, and if there has not been a drug screen completed we ordered one today to monitor higher risk, state monitored pain medication use. As part of providing excellent, safe, comprehensive care, the following was completed at our patient's visit: 1. A medication reconciliation and review to ensure accurate knowledge of current/active medications, including asking our patients to inform us about any [id number] medications or herbal remedies/nutritional s upplements/alternative remedies. 2. A review to specifically ensure our patients have had annual screening for: elevated body mass index (BMI), tobacco use, screening for depression, and screening for unhealthy alcohol use. When screening is concerning, patients are provided with education and the specific recommendation to discuss the concerning health issue and treatment options with their primary care provider. Assessment and Plan Assessment and Plan (1) Cervical spondylosis: Assessment and Plan: mild to no relief from recent r and l cervical RFA at 5-6 6-7 facets (2) Muscle spasms of neck: Plan increase baclofen 10mg BID PRN muscle spasms, consider switching in the future PT with massage and dry needling transdermal therapeutics cream #8 TID-QID to neck f/u 2 months, sooner if needed
== END 2023-04-28 14:38 | disposition home or self-care (01) ==
LOC: PM 14:37
PROVIDERS: PCP Internal Medicine; Visit Provider Nurse Practitioner
DX: M47.812 Spondylosis without myelopathy or radiculopathy, cervical region (principal); M62.838 Other muscle spasm; E27.3 Drug-induced adrenocortical insufficiency; E03.9 Hypothyroidism, unspecified
CPT/HCPCS: 36415; 80069; 82306; 84439; 84443; 84481; G0463

== ENCOUNTER 2023-05-04 14:54 | Outpatient (RCR) | payer BC, SELFPAY | END 2023-05-18 23:59 | disposition home or self-care (01) | LOC: INF 14:54 | PROVIDERS: PCP Internal Medicine; Visit Provider Internal Medicine Hematology & Oncology | DX: C50.911 Malignant neoplasm of unspecified site of right female breast (principal); M25.50 Pain in unspecified joint; M13.0 Polyarthritis, unspecified | CPT/HCPCS: G0463 ==

== ENCOUNTER 2023-05-07 15:00 | Outpatient (RCR) | payer BC, SELFPAY | END 2023-05-29 17:17 | disposition home or self-care (01) | LOC: PT 15:00 | PROVIDERS: PCP Internal Medicine; Visit Provider Nurse Practitioner | DX: M47.812 Spondylosis without myelopathy or radiculopathy, cervical region (principal); M62.838 Other muscle spasm | CPT/HCPCS: 20560; 97110; 97140; 97161 ==

== ENCOUNTER 2023-07-20 09:54 | Outpatient (OUT) | payer BC, SELFPAY ==
--- OUTSIDE RECORDS SUMMARY | 2023-07-20 10:05 | XMS_ITS | CCD ---
Author Name Unknown Address [address] [facility] [address] [place] [address] Organization [facility] Care Team Providers Care Construction Recruiter Name Role Phone Jasbir Limon Primary Care Provider [phone] Franco Stokes Unavailable Jasbir Limon MD Primary Care Provider Eliel Hurd Primary Care Provider [phone] BRYAN MURGUIAANCE P Admitting Unavailable SHANTAL, DIANA P Attending Unavailable ELIEL HURD Primary Care Unavailable BRYAN MURGUIAANCE P Referring Unavailable ELIEL HURD Primary Care Unavailable MD Eliel Hurd Primary Care Provider [phone] MD Eliel Hurd Referring Provider MD Kallie Chang Attending Provider [phone] NON STAFF Attending Provider Unavailable MD Eliel Hurd Primary Care Provider [phone] MD Eliel Hurd Referring Provider MD Kallie Chang Attending Provider BRYAN MURGUIAANCE P Referring Unavailable ELIEL HURD Primary Care Unavailable ELIEL HURD Primary Care Unavailable DIANA MURGUIA P Referring Unavailable MD Eliel Hurd Primary Care Provider [phone] MD Larissa Saunders Attending Provider MD Eliel Hurd Referring Provider [phone] MD Kallie Chang Attending Provider [phone] MD Eliel Hurd Primary Care Provider MD Larissa Saunders Attending Provider MD Eliel Hurd Referring Provider MD Kallie Chang Attending Provider MD Eliel Hurd Primary Care Provider [phone] DO Adam Vickers Attending Provider MD Eliel Hurd Referring Provider MD Kallie Chang Attending Provider MD Eliel Hurd Referring Provider [phone] MD Kallie Chang Attending Provider MD Eliel Hurd Referring Provider [phone] MD Kallie Chang Attending Provider [phone] MD Eliel Hurd Primary Care Provider [phone] MD Eliel Hurd Referring Provider MD Kallie Chang Attending Provider MD Eliel Hurd Primary Care Provider [phone] MD Eliel Hurd Referring Provider [phone] MD Kallie Chang Attending Provider EARNEST HDZ Admitting Unavailable HURD ., DR ELIEL Rouse Primary Care Unavailable EARNEST HDZ Attending Unavailable EARNEST HDZ Consulting Unavailable HURD ., DR ELIEL Rouse Attending Unavailable HURD ., DR ELIEL Rouse Consulting Unavailable HURD ., DR ELIEL Rouse Primary Care Unavailable HURD ., DR ELIEL Rouse Admitting Unavailable ZIEBER, DR BARBER Christianson Consulting Unavailable HURD ., DR ELIEL Rouse Attending Unavailable HURD ., DR ELIEL Rouse Admitting Unavailable HURD ., DR ELIEL Rouse Consulting Unavailable HURD ., DR ELIEL Rouse Primary Care Unavailable VERNELL ., DR FREITAS Consulting Unavailable VERNELL ., DR FREITAS Admitting Unavailable HURD ., DR ELIEL Rouse Primary Care Unavailable VERNELL ., DR FREITAS Attending Unavailable [place], DR KRISTA Delgado Consulting Unavailable HURD ., DR ELIEL Rouse Primary Care Unavailable VERNELL ., DR FREITAS Admitting Unavailable VERNELL ., DR FREITAS Attending Unavailable VERNELL ., DR FREITAS Consulting Unavailable BRIEN KOEHLER Admitting Unavailable SHAIKH Jun HEARN Primary Care Unavailable BRIEN KOEHLER Attending Unavailable [facility] Consulting Unavailable DI ., DR ELIEL Rouse Primary Care Unavailable MONIQUE ., DR KAITLIN Norton Admitting Unavailable MONIQUE ., DR KAITLIN Norton Attending Unavailable GIEDJESSIE, ANDRI Admitting Unavailable JUAN RICE Referring Unavailable SHAIKH Jun HEARN Primary Care Unavailable GIBUD, ANDVENKAT Attending Unavailable Elham POZO, Booker Briones Attending Unavailable Elham POZO, Booker Briones Attending Unavailable MD Eliel Hurd Primary Care Provider MD Eliazar Gibson Attending Provider Eliel Hurd Primary Care Unavailable Eliazar Gibson Admitting Unavailable Eliazar Gibson Attending Unavailable Rizwan Vickers Admitting Unavailab Rizwan Schuster Attending UnavailEliel Taylor Primary Care Unavailable Kallie Chang Attending Unavailable Eliel Hurd Primary Care Unavailable Eliel Hurd Referring Unavailable Kallie Chang Admitting Unavailable Ismael BERMAN Attending Unavailable SYDNIE LITTEL Primary Care Unavailable Allergies Allergy Classification Reported Allergen(s) Allergy Type Date of Onset Reaction(s) Facility (1 source) No Known Medication Allergies; Translations: [No Known Medication Allergies] Propensity to adverse reactions (disorder) [facility] Repository Medications Current Medications Medication Drug Class(es) Dates Sig (Normalized) Sig (Original) acetaminophen 250 mg / aspirin 250 mg / caffeine 65 mg oral tablet (14 sources) Platelet Aggregation Inhibitor, Nonsteroidal Anti-inflammatory Drug, Central Nervous System Stimulant, Methylxanthine Start: 07-08-2021 take 1 tablet by mouth every four to six hours Aspirin-Acetamin ophen-Caffeine (Excedrin Migraine) 250-250-65 mg Tablet Active 1 TAB PO EVERY 4-6 HOURS July 08, 2021 1:00am take 1 tablet by adair th every six hours as needed for headache rkbxuyl-qzgimlrndutue-zrgcnkjv (EXCEDRIN MIGRAINE) 250-250-65 MG per tablet Take 1 tablet by mouth every 6 hours as needed for Headaches 0 Active acetaminophen 325 mg / HYDROcodone bitartrate 5 mg oral tablet (1 source) Opioid Agonist Start: 02-17-2022 End: 02-22-2022 HYDROcodone-acetaminophen (NORCO) 5-325 MG per tablet Indications: Status post breast lumpectomy , Status post breast reconstruction Take 1 tablet by mouth every 6 hours as needed for Pain for up to 5 days. Intended supply: 5 days. Take lowest dose possible to manage pain 20 tablet 0 02/17/2022 02/22/2022 Active baclofen 10 mg oral tablet (1 source) gamma-Aminobut yric Acid-ergic Agonist Start: 02-17-2022 End: 02-27-2022 baclofen (LIORESAL) 10 MG ta blet Take 1 tablet by mouth in the morning and 1 tablet at noon and 1 tablet before bedtime. Do all this for 10 days. 30 tablet 0 02/17/2022 02/27/2022 Active calcium chloride 0.0014 meq/ml / potassium chloride 0.004 meq/ml / sodium chloride 0.103 meq/ml / sodium lactate 0.028 meq/ml injectable solution (1 source) Start: 02-18-2022 lactated ringe rs infusion Start: 02-18-2022 lactated ringe rs infusion citalopram 20 mg oral tablet (17 sources) Serotonin Reuptake Inhibitor Start: 02-27-2021 take 20 mg by mouth once daily Citalopram Active 20 MG PO Daily July 08, 2021 1:00am Comment on above: Take 20 mg by mouth once daily. 2 ml fentaNYL 0.05 mg/ml injection (1 source) Opioid Agonist Start: 02-17-2022 fentaNYL (SUBLIMAZE) injection 25 mcg gabapentin 300 mg oral capsule (1 source) Anti-epileptic Agent Start: 02-17-2022 End: 03-03-2022 gabapentin (NEURONTIN) 300 MG capsule Take 1 capsule by mouth in the morning and 1 capsule at noon and 1 capsule before bedtime. Do all this for 14 days. Intended supply: 90 days. 42 capsule 0 02/17/2022 03/03/2022 Active hydrocortisone 20 mg oral tablet (10 sources) Corticosteroid Start: 09-18-2022 Hydrocortisone Active 20 MG PO Daily September 18, 2022 1:00am 20mg and 10mg in the afternoon Start: 06-18-2022 End: 08-06-2022 Hydrocortisone Discontinued 0 .ROUTE .COMPLEX 90 June 18, 2022 1:00am August 06, 2022 2:31pm take 2 tabs in am and 1 tab in pm 0.5 ml HYDROmorphone hydrochloride 1 mg/ml prefilled syringe (1 source) Opioid Agonist Start: 02-17-2022 HYDROmorphone HCl PF (DILAUDID) injection 0.25 mg Ibuprofen (1 source) Nonsteroidal Anti-inflammatory Drug Ibuprofen Active 10 ml lidocaine hydrochloride 10 mg/ml injection (2 sources) Antiarrhythmic, Amide Local Anesthetic Start: 02-18-2022 End: 02-18-2022 lidocaine PF 1 % injection 1 mL Start: 02-17-2022 End: 02-17-2022 lidocaine (LMX) 4 % cream ondansetron 8 mg disintegrating oral tablet (20 sources) Serotonin-3 Receptor Antagonist Start: 06-02-2022 take 8 mg by mouth every eight hours Ondansetron Active 8 MG PO Q8H June 02, 2022 1:00am Start: 02-17-2022 End: 02-17-2022 ondansetron (ZOFRAN) injecti on 4 mg Start: 07-08-2021 End: 03-12-2022 take 8 mg by mouth every eight hours Ondansetron Hcl Discontinued 8 MG PO Q8H July 08, 2021 1:00am March 12, 2022 8:55am Start: 07-03-2021 End: 08-14-2021 take 8 mg by mouth twice daily Ondansetron Discontinue d 8 MG PO Twice daily July 03, 2021 1:00am August 14, 2021 10:21am 72 hr scopolamine 0.0139 mg/hr transdermal system (1 source) Anticholinergic Start: 02-17-2022 scopolamine (TRANSDERM-SCOP) transdermal patch 1 patch sertraline 50 mg oral tablet (1 source) Serotonin Reuptake Inhibitor take 1 tablet by mouth every twenty-four hours Sertraline HCl 50 MG 1 tablet Orally Once a day for 30 day(s) Active simvastatin 20 mg oral tablet (1 source) HMG-CoA Reductase Inhibitor take 1 tablet by mouth every twenty-four hours Simvastatin 20 MG 1 tablet in the evening Orally Once a day Active 5 ml sodium chloride 9 mg/ml injection (8 sources) Start: 02-17-2022 sodium chloride flush 0.9 % injection 5-40 mL Start: 02-17-2022 0.9 % sodium c hloride infusion Start: 02-17-2022 sodium chlorid e flush 0.9 % injection 5-40 mL Start: 02-04-2022 sodium chlorid e flush 0.9 % injection 10 mL Start: 02-04-2022 End: 02-04-2022 0.9 % sodium chloride bolus Completed/Discontinued Medications Medication Drug Class(es) Dates Sig (Normalized) Sig (Original) cephalexin 500 mg oral capsule (11 sources) Cephalosporin Antibacterial Start: 07-03-2021 End: 07-08-2021 take 500 mg by mouth three times daily Cephalexin Discontinued 500 MG PO Three times daily July 03, 2021 1:00am July 08, 2021 3:07pm dexamethasone 4 mg oral tablet (20 sources) Corticosteroid Start: 09-17-2021 End: 03-12-2022 take 8 mg by mouth twice daily Dexamethasone Discontinued 8 MG PO Twice daily September 17, 2021 1:00am March 12, 2022 8:55am for 3 days after treatment Start: 07-03-2021 End: 07-22-2021 take 4 mg by mouth once daily Dexamethasone Discontinu ed 4 MG PO Daily July 03, 2021 1:00am July 22, 2021 3:49pm diclofenac sodium 50 mg delayed release oral tablet (14 sources) Nonsteroidal Anti-inflammatory Drug Start: 07-08-2021 End: 03-12-2022 take 50 mg by mouth three times daily Diclofenac Sodium Discontinued 50 MG PO Three times daily July 08, 2021 1:00am March 12, 2022 8:55am DICLOFENAC SODIU M PO Take by mouth 0 Active 1 ml diphenhydrAMINE hydrochloride 50 mg/ml cartridge (1 source) Histamine-1 Receptor Antagonist Start: 02-17-2022 End: 02-17-2022 diphenhydrAMINE (BENADRYL) injection 12.5 mg Start: 02-17-2022 End: 02-17-2022 diphenhydrAMINE (BENADRYL) i njection 12.5 mg gadoteridol (PROHANCE) injection 18 mL (1 source) Start: 02-04-2022 End: 02-04-2022 gadoteridol (PROHANCE) injection 18 mL levothyroxine sodium 0.05 mg oral tablet (8 sources) l-Thyroxine Start: 09-04-2022 End: 10-12-2022 take 1 tablet by mouth once daily Levothyroxine (Synthroid) 50 mcg Tablet Discontinued 50 MCG PO Daily September 04, 2022 2:26pm October 12, 2022 10:38am LORazepam 1 mg oral tablet (20 sources) Benzodiazepine Start: 07-03-2021 End: 03-12-2022 take 1 mg by mouth every six hours Lorazepam Discontinued 1 MG PO Q6H 56 September 04, 2021 12:48pm March 12, 2022 8:55am mometasone furoate 1 mg/ml topical cream (15 sources) Corticosteroid Start: 04-16-2022 End: 08-06-2022 Mometasone Discontinued 1 APPLIC TOPICAL Daily June 09, 2022 1:12pm August 06, 2022 2:31pm omeprazole 20 mg delayed release oral capsule (15 sources) Proton Pump Inhibitor Start: 11-29-2021 take 1 capsule by mouth twice daily omeprazole (PRILOSEC) 20 mg capsule Take 20 mg by mouth twice daily. 0 11/29/2021 Active Start: 07-08-2021 take 20 mg by mouth once daily Omeprazole Active 20 MG PO Daily July 08, 2021 1:00am Comment on above: Take 20 mg by mouth twice daily. pantoprazole 40 mg injection (1 source) Proton Pump Inhibitor Start: 02-17-2022 End: 02-17-2022 pantoprazole (PROTONIX) injection 40 mg Start: 02-17-2022 End: 02-17-2022 pantoprazole (PROTONIX) inje ction 40 mg predniSONE 20 mg oral tablet (18 sources) Start: 08-17-2022 End: 09-04-2022 take 10 mg by mouth once daily Prednisone Discontinued 10 MG PO Daily 60 August 17, 2022 1:01pm September 04, 2022 3:10pm Start: 08-14-2022 End: 09-18-2022 take 40 mg by mouth once daily, then take 30 mg by mouth once daily, then take 20 mg by mouth once daily Prednisone Discontinued 20 MG PO As Directed 60 September 04, 2022 3:09pm September 18, 2022 2:35pm take 40mg po daily for 7d then 30mg po daily for 7d then 20mg po daily Start: 08-14-2022 Prednisone Act laci 20 MG PO As Directed August 14, 2022 12:00am tapered dose, patient down to 1/2 20mg tab daily Start: 07-23-2022 End: 08-06-2022 take 1 tablet by mouth once daily Prednisone Discontinued 0 .ROUTE .COMPLEX 42 July 23, 2022 1:00am August 06, 2022 2:31pm 20 mg orally--take 3 tabs daily x 1 week, then 2 tabs daily x 1 week, then 1 tab daily x 1 week, then 0.5mg daily x 1 week prochlorperazine 10 mg oral tablet (20 sources) Phenothiazine Start: 07-03-2021 End: 03-12-2022 take 10 mg by mouth every six hours Prochlorperazine Maleate Discontinued 10 MG PO Q6H October 13, 2021 8:26am October 22, 2021 8:35am silver sulfADIAZINE 10 mg/ml topical cream (7 sources) Sulfonamide Antibacterial Start: 06-09-2022 End: 08-06-2022 Silver Sulfadiazine (Silvadene) 1 % Cream Discontinued 1 APPLIC TOPICAL Daily 60 June 09, 2022 1:00am August 06, 2022 2:31pm apply a 1.5 mm thickness to open/blistered areas only technetium Tc 99m tilmanocept (LYMPHOSEEK) injection 0.6 millicurie (1 source) Start: 02-17-2022 End: 02-17-2022 technetium Tc 99m tilmanocept (LYMPHOSEEK) injection 0.6 millicurie Problems Active Problems Problem Classification Problem Date Documented Date Episodic/Chronic Administrative/social admission (11 sources) Patient encounter status; Translations: [Other specified counseling] 06-19-2022 Episodic Cancer of breast (20 sources) Malignant neoplasm of female breast; Translations: [Malignant neoplasm of unspecified site of right female breast] Onset: 11-25-2022 Chronic Cancer of breast (1 source) History of malignant neoplasm of breast; Translations: [Personal history of malignant neoplasm of breast] Episodic Diseases of white blood cells (20 sources) Neutropenia due to and following chemotherapy; Translations: [Agranulocytosis secondary to cancer chemotherapy] 11-13-2021 Chronic Disorders of lipid metabolism (3 sources) Hyperlipidemia; Translations: [Hyperlipidemia, unspecified] Onset: 01-23-2022 01-23-2022 Chronic Esophageal disorders (1 source) Gastro-esophageal reflux disease without esophagitis; Translations: [GERD WITHOUT ESOPHAGITIS] Onset: 04-05-2022 Chronic Maintenance chemotherapy; radiotherapy (20 sources) Patient encounter status; Translations: [Encounter for antineoplastic chemotherapy] 09-24-2021 Chronic Nonmalignant breast conditions (1 source) Breasts asymmetrical; Translations: [Disproportion of reconstructed breast] Episodic Other endocrine disorders (6 sources) Adrenal cortical hypofunction; 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] 06-19-2022 Chronic Other endocrine disorders (5 sources) Drug-induced adrenocortical insufficiency; Translations: [Glucocorticoid deficiency] 07-22-2022 Chronic Other nervous system disorders (1 source) Carpal tunnel syndrome; Translations: [Carpal tunnel syndrome, left upper limb] 11-25-2022 Chronic Other non-traumatic joint disorders (6 sources) Multiple joint pain; Translations: [Pain in unspecified joint] 06-19-2022 Episodic Other non-traumatic joint disorders (6 sources) Pain in unspecified joint; Translations: [Pain in joint, multiple sites] Onset: 04-07-2023 07-22-2022 Episodic Residual codes; unclassified (3 sources) H/O: artificial organ/tissue; Translations: [Other specified postprocedural states] Onset: 02-17-2022 Episodic Spondylosis; intervertebral disc disorders; other back problems (5 sources) Cervical spondylosis; Translations: [Spondylosis without myelopathy or radiculopathy, cervical region] Onset: 09-15-2021 Resolved: 09-15-2021 Chronic Spondylosis; intervertebral disc disorders; other back problems (20 sources) Neck pain; Translations: [Cervical pain (neck)] 09-24-2021 Episodic Thyroid disorders (5 sources) Acquired hypothyroidism; Translations: [Hypothyroidism, unspecified] 09-04-2022 Chronic Unclassified (2 sources) CONTACT W/AND (SUSP) EXPOS COVID-19; Translations: [CONTACT W/AND (SUSP) EXPOS COVID-19] Onset: 04-01-2022 Unclassified (1 source) Malignant neoplasm of unspecified site of right female breast; Translations: [Malignant neoplasm of unspecified site of right female breast] Onset: 11-25-2022 Viral infection (1 source) COVID-19; Translations: [COVID-19] Onset: 04-01-2022 Past or Other Problems Problem Classification Problem Date Documented Date Episodic/Chronic Abdominal pain (4 sources) Epigastric pain; Translations: [EPIGASTRIC PAIN] Onset: 2022 Episodic Immunizations and screening for infectious disease (1 source) Encounter for screening for human papillomavirus (HPV); Translations: [ENC SCREENING HUMAN PAPILLOMAVIRUS] Onset: 04-08-2022 Episodic Other connective tissue disease (1 source) Other symptoms and signs involving the musculoskeletal system; Translations: [Other symptoms and signs involving the musculoskeletal system] Onset: 06-19-2022 Episodic Other screening for suspected conditions (not mental disorders or infectious disease) (5 sources) Mammography abnormal; Translations: [Other abnormal and inconclusive findings on diagnostic imaging of breast] Onset: 04-07-2022 Episodic Residual codes; unclassified (4 sources) Personal history of antineoplastic chemotherapy; Translations: [PERSONAL HX ANTINEOPLASTIC CHEMO] Onset: 04-14-2022 Episodic Unclassified (1 source) CONTACT W/AND (SUSP) EXPOS COVID-19; Translations: [CONTACT W/AND (SUSP) EXPOS COVID-19] Onset: 03-14-2022 Results Test Name Value Interpretation Reference Range Facility Physician Referralon 023 Physician Referral [id number] .[id number] Normal [facility] Physician Referralon 023 Physician Referral [id number] .[id number] Normal [facility] LEONARD Antinuclear Antibodieson 04-07-2023 Antinuclear Abs, IFA Positive Critically abnormal . [facility] Comment on above: Result Comment: Nega tive <1:80 Borderline 1:80 Positive >1:80 Performed By: #### C RAYMON CBC #### [facility] [address] Homogeneous Pattern 1:80 Normal . [facility] Comment on above: Result Comment: ICAP nomenclature: AC-1 Performed By: #### C RAYMON, CBC #### [facility] [address] [place] [id number] [facility] Note 1 Normal . [facility] Comment on above: Result Comment: For more information about Hep-2 cell patterns use ANApatterns.org, the official website for the International Consensus on Antinuclear Antibody (LEONARD) Patterns (ICAP). A positive LEONARD result may occur in healthy individuals (low titer) or be associated with a variety of diseases. See interpretation chart which is not all inclusive: Pattern Antigen Detected Suggested Disease Association Homogeneous DNA(ds,ss), SLE - High titers Nucleosomes, Histones Drug-induced SLE Speckled Sm, PARAFFIN PLANT OPERATOR, SCL-70, SLE,MCTD,PSS (diffuse form), SS-A/SS-B Sjogrens Nucleolar SCL-70, PM-1/SCL High titers Scleroderma, PM/DM Centromere Centromere PSS (limited form) w/Crest syndrome variable Nuclear Dot [id number] Primary Biliary Cirrhosis Nuclear GP210, Primary Biliary Cirrhosis Membrane scarlett A,B,C Performed at: [address] [id number] Detective And Intelligence Analyst: Red Sena PhD, Phone: [phone] PERFORMED BY: [place] [address] PATHOLOGIST ARTIFICIAL INSEMINATOR CHITO HENDRICKS M.D. Performed By: #### C MP, CBC #### [facility] [address] [place] [address] [place] Speckled Pattern 1:160 High . [facility] Comment on above: Result Comment: ICAP nomenclature: AC-2,4,5,29 Performed By: #### C MP, CBC #### [facility] [address] [place] [address] [place] C reactive protein [Mass/vol ume] in Serum or PlasmaOrdered By: Eliazar Gibson on 04-07-2023 CRP [Mass/Vol] < 0.5 mg/dL 0.0-0.5 [facility] C-Reactive Proteinon 023 CRP [Mass/Vol] mg/L Normal 0.0-0.5 [facility] Comment on above: Result Comment: PERF ORMED BY: [place] [address] PATHOLOGIST ARTIFICIAL INSEMINATOR CHITO HENDRICKS M.D. Performed By: #### C MP, CBC #### [facility] [address] [place] [address] Erythrocyte Sedimentation Ra logan 04-07-2023 ESR (Bld) [Velocity] 22 mm/h High 0- [facility] Comment on above: Result Comment: PERF ORMED BY: [place] [address] PATHOLOGIST ARTIFICIAL INSEMINATOR CHTIO HENDRICKS M.D. Performed By: #### C MP, CBC #### [facility] [address] [place] [address] Erythrocyte sedimentation ra te by Photometric methodOrdered By: Eliazar Gibson on 04-07-2023 ESR Photometric method (Bld) [Velocity] 22 mm/hr 0 [facility] Retail - Clinical Noteon Retail - Clinical Note [id number]. [id number]:127 Normal [facility] Free T4 (Free Thyroxine)on 0 11-16-2022 Free T4 [Mass/Vol] 1.03 ng/dL Normal 0.61-1.12 [facility] Comment on above: Performed By: #### C MP, TSH3, RAÚL, T4F #### [facility] [address] [place] [address] Serum or plasma thyroperoxid ase antibody assay (units/volume)Ordered By: Elizabeth Pérez on 11-16-2022 TPO Ab Qn 13 [IU]/mL [facility] Comment on above: Performed at: [facility] [address] [id number] Director: Red Sena PhD, Phone: [phone] Thyroid Peroxidase Antibodie son 11-16-2022 Thyroid Peroxidase Antibodies 13 Normal - [facility] Comment on above: Result Comment: Perf ormed at: CB - [facility] [address] [id number] Detective And Intelligence Analyst: Red Sena PhD, Phone: [phone] PERFORMED BY: [place] [address] PATHOLOGIST ARTIFICIAL INSEMINATOR CHITO HENDRICKS M.D. Performed By: #### C MP, TSH3, RAÚL, T4F #### [facility] [address] [place] [address] [place] Thyroid Stimulating Hormoneo n 11-16-2022 TSH Qn 1.03 m[IU]/L Normal 0.45-5.33 [facility] Comment on above: Result Comment: PERF ORMED BY: [place] [address] PATHOLOGIST ARTIFICIAL INSEMINATOR CHITO HENDRICKS M.D. Performed By: #### C MP, TSH3, RAÚL, T4F #### [address] [address] [place] Thyrotropin [Units/volume] i n Serum or PlasmaOrdered By: lEizabeth Pérez on 11-16-2022 TSH Qn 1.03 m[IU]/L 0.45-5.33 [facility] Thyroxine (T4) free [Mass/vo lume] in Serum or PlasmaOrdered By: Elizabeth Pérez on 11-16-2022 Free T4 [Mass/Vol] 1.03 ng/dL 0.61-1.12 [facility] Triiodothyronine (T3) Freeon 11-16-2022 Triiodothyronine (T3) Free 4.39 pg/mL High 2.50-3.90 [facility] Comment on above: Result Comment: PERF ORMED BY: [address] [address] PATHOLOGIST ARTIFICIAL INSEMINATOR CHITO HENDRICKS M.D. Performed By: #### C MP, CBC #### [facility] [address] [place] [id number] [facility] Triiodothyronine (T3) Free [ Mass/volume] in Serum or PlasmaOrdered By: Elizabeth Pérez on 11-16-2022 Free T3 [Mass/Vol] 4.39 pg/mL 2.50-3.90 [facility] Adrenocorticotropic Hormone PLon 09-16-[address] <1.5 Low 7.2-63.3 [facility] Comment on above: Result Comment: ACTH reference interval for samples collected between 7 and 10 AM. Performed at: - [facility] [address], [place], [place] [id number] Detective And Intelligence Analyst: Red Sena PhD, Phone: [phone] PERFORMED BY: [place] [address] PATHOLOGIST ARTIFICIAL INSEMINATOR CHITO HENDRICKS M.D. Performed By: #### C BC, CMP #### [address] Albumin [Mass/volume] in Bod y fluidOrdered By: Kallie Chang on 09-16-2022 Albumin (Body fld) [Mass/Vol] 3.7 g/dL 3.2-5.5 [facility] Alkaline phosphatase [Enzyma tic activity/volume] in Serum or PlasmaOrdered By: Kallie Chang on 09-16-2022 ALP [Catalytic activity/Vol] 85 U/L 32-92 [facility] Aspartate aminotransferase [ Enzymatic activity/volume] in Serum or PlasmaOrdered By: Kallie Chang on 09-16-2022 AST [Catalytic activity/Vol] 20 U/L 10-42 [facility] Basophils Auto (Bld) [#/Vol] Ordered By: Kallie Chang on 09-16-2022 Basophils (Bld) [#/Vol] 0.0 10*3/uL 0.0-0.2 [facility] Basophils/100 WBC Auto (Bld) Ordered By: Kallie Chang on 09-16-2022 Basophils/100 WBC (Bld) 0.3 % . [facility] Bilirubin.total [Mass/volume ] in Serum or PlasmaOrdered By: Kallie Chang on 09-16-2022 Bilirubin [Mass/Vol] 0.6 mg/dL 0.3-1.2 [facility] Calcium [Mass/volume] in Ser um or PlasmaOrdered By: Kallie Chang on 09-16-2022 Calcium [Mass/Vol] 9.2 mg/dL 8.2-10.2 [facility] Carbon dioxide, total [Moles /volume] in Serum or PlasmaOrdered By: Kallie Chang on 09-16-2022 CO2 [Moles/Vol] 23.1 mmol/L 22.0-30.0 [facility] Chloride [Moles/volume] in S nathaly or PlasmaOrdered By: Kallie Chang on 09-16-2022 Chloride [Moles/Vol] 102 mmol/L 95-114 [facility] Complete Blood Count Auto Di ffon 09-16-2022 Basophils (Bld) [#/Vol] 0.0 10*3/uL Normal 0.0-0.2 [facility] Comment on above: Result Comment: PERF ORMED BY: [place] [address] PATHOLOGIST ARTIFICIAL INSEMINATOR CHITO HENDIRCKS M.D. Performed By: #### C MP, TSH3, RAÚL, T4F #### [facility] [address] [place] [address] Basophils/100 WBC (Bld) 0.3 % Normal . [facility] Comment on above: Performed By: #### C MP, TSH3, RAÚL, T4F #### [facility] [address] Eosinophils (Bld) [#/Vol] 0.0 10*3/uL Normal 0.0-0.45 [facility] Comment on above: Performed By: #### C MP, TSH3, RAÚL, T4F #### [facility] [address] [place] [address] Eosinophils/100 WBC (Bld) 0.1 % Normal . [facility] Comment on above: Performed By: #### C MP, TSH3, RAÚL, T4F #### [facility] [address] [place] [address] Erythrocyte distribution width (RBC) [Ratio] 15.1 % Normal 11.9-15.3 [facility] Comment on above: Performed By: #### C MP, TSH3, RAÚL, T4F #### [facility] [address] [place] [address] Hematocrit (Bld) [Volume fraction] 38.3 % Normal 34.0-46.4 [facility] Comment on above: Performed By: #### C MP, TSH3, RAÚL, T4F #### [address] Hemoglobin (Bld) [Mass/Vol] 12.5 g/dL Normal 11.8-15.4 [facility] Comment on above: Performed By: #### C MP, TSH3, RAÚL, T4F #### [address] Lymphocytes (Bld) [#/Vol] 0.7 10*3/uL Low 1.00-4.8 [facility] Comment on above: Performed By: #### C MP, TSH3, RAÚL, T4F #### [address] Lymphocytes/100 WBC (Bld) 6.2 % Normal . [facility] Comment on above: Performed By: #### C MP, TSH3, RAÚL, T4F #### [address] MCH (RBC) [Entitic mass] 30.2 pg Normal 24.7-34.3 [facility] Comment on above: Performed By: #### C MP, TSH3, RAÚL, T4F #### [address] MCV (RBC) [Entitic vol] 92.4 fL Normal 80-100 [facility] Comment on above: Performed By: #### C MP, TSH3, RAÚL, T4F #### [address] Mean Corpuscular HGB Conc 32.7 g/dL Normal 32.0-35.0 [facility] Comment on above: Performed By: #### C MP, TSH3, RAÚL, T4F #### [address] Monocytes (Bld) [#/Vol] 0.3 10*3/uL Normal 0.0-0.8 [facility] Comment on above: Performed By: #### C MP, TSH3, RAÚL, T4F #### [address] [address] [place] [address] [place] Monocytes/100 WBC (Bld) 2.3 % Normal . [facility] Comment on above: Performed By: #### C MP, TSH3, RAÚL, T4F #### [facility] [address] Neutrophils (Bld) [#/Vol] 10.4 10*3/uL High 1.8-7.7 [facility] Comment on above: Performed By: #### C MP, TSH3, RAÚL, T4F #### [facility] [address] [place] [address] Neutrophils/100 WBC (Bld) 91.1 % Normal . [facility] Comment on above: Performed By: #### C MP, TSH3, RAÚL, T4F #### [facility] [address] [place] [address] NRBC% 0.1 /100{WBC} Normal 0-0.5 [facility] Comment on above: Performed By: #### C MP, TSH3, RAÚL, T4F #### [facility] [address] [place] [address] Platelet mean volume (Bld) [Entitic vol] 6.9 fL Normal 6.3-10.7 [facility] Comment on above: Performed By: #### C MP, TSH3, RAÚL, T4F #### [place] [address] [place] Platelets (Bld) [#/Vol] 287 10*3/uL Normal 150-450 [facility] Comment on above: Performed By: #### C MP, TSH3, RAÚL, T4F #### [facility] [address] [place] [address] [place] RBC (Bld) [#/Vol] 4.14 10*6/uL Normal 3.60-5.00 [facility] Comment on above: Performed By: #### C MP, TSH3, RAÚL, T4F #### [place] [address] [place] WBC (Bld) [#/Vol] 11.5 10*3/uL Normal 3.8-11.6 [facility] Comment on above: Performed By: #### C MP, TSH3, RAÚL, T4F #### [facility] [address] [place] [address] Comprehensive Metabolic Pane arthur 09-16-2022 Albumin [Mass/Vol] 3.7 g/dL Normal 3.2-5.5 [facility] Comment on above: Performed By: #### C MP, TSH3, RAÚL, T4F #### [facility] [address] [place] [address] Albumin/Globulin [Mass ratio] 1.3 {ratio} Normal [facility] Comment on above: Performed By: #### C MP, TSH3, RAÚL, T4F #### [facility] [address] [place] [address] ALP [Catalytic activity/Vol] 85 U/L Normal 32-92 [facility] Comment on above: Performed By: #### C MP, TSH3, RAÚL, T4F #### [facility] [address] [place] [address] ALT [Catalytic activity/Vol] 16 U/L Normal 10-60 [facility] Comment on above: Performed By: #### C MP, TSH3, RAÚL, T4F #### [address] Anion gap [Moles/Vol] 13.2 mmol/L Normal 6.0-15.0 [facility] Comment on above: Performed By: #### C MP, TSH3, RAÚL, T4F #### [facility] [address] [place] [address] AST [Catalytic activity/Vol] 20 U/L Normal 10-42 [facility] Comment on above: Performed By: #### C MP, TSH3, RAÚL, T4F #### [facility] [address] [place] [address] Bilirubin [Mass/Vol] 0.6 mg/dL Normal 0.3-1.2 [facility] Comment on above: Performed By: #### C MP, TSH3, RAÚL, T4F #### [facility] [address] Calcium [Mass/Vol] 9.2 mg/dL Normal 8.2-10.2 [facility] Comment on above: Performed By: #### C MP, TSH3, RAÚL, T4F #### [facility] [address] Chloride [Moles/Vol] 102 mmol/L Normal 95-114 [facility] Comment on above: Performed By: #### C MP, TSH3, RAÚL, T4F #### [address] CO2 [Moles/Vol] 23.1 mmol/L Normal 22.0-30.0 [facility] Comment on above: Performed By: #### C MP, TSH3, RAÚL, T4F #### [address] Creatinine [Mass/Vol] 0.98 mg/dL Normal 0.44-1.03 [facility] Comment on above: Performed By: #### C MP, TSH3, RAÚL, T4F #### [address] Creatinine Clr Calc Pharmacy 72.74 [facility] Comment on above: Result Comment: PERF ORMED BY: [place] [address] PATHOLOGIST ARTIFICIAL INSEMINATOR CHITO HENDRICKS M.D. Performed By: #### C MP, TSH3, RAÚL, T4F #### [address] Estimated GFR ( Janis > 60 [facility] Comment on above: Result Comment: GFR estimated reference range: According to KDOQI guidelines, <60 ml/min/1.73m2 is sufficient to diagnose a patient with chronic kidney disease. Performed By: #### C MP, TSH3, RAÚL, T4F #### [address] Estimated GFR (Non- Am > 60 [facility] Comment on above: Performed By: #### C MP, TSH3, RAÚL, T4F #### [facility] [address] [place] [address] [place] Globulin (S) [Mass/Vol] 2.8 g/dL Normal [facility] Comment on above: Performed By: #### C MP, TSH3, RAÚL, T4F #### [facility] [address] [place] [address] [place] Glucose [Mass/Vol] 176 mg/dL High 70-100 [facility] Comment on above: Result Comment: [facility] Glucose Reference Range is dependent on time and content of last meal. Glucose of more than 200 mg/dL in a nonstressed, ambulatory subject supports the diagnosis of Diabetes Mellitus. ADA recommended reference range Performed By: #### C MP, TSH3, RAÚL, T4F #### [facility] [address] Potassium [Moles/Vol] 4.3 mmol/L Normal 3.5-5.1 [facility] Comment on above: Performed By: #### C MP, TSH3, RAÚL, T4F #### [facility] [address] [place] [address] [place] Protein [Mass/Vol] 6.5 g/dL Normal 6.1-7.9 [facility] Comment on above: Performed By: #### C MP, TSH3, RAÚL, T4F #### [facility] [address] [place] [address] [place] Sodium [Moles/Vol] 134 mmol/L Low 136-146 [facility] Comment on above: Performed By: #### C MP, TSH3, RAÚL, T4F #### [facility] [address] [place] [address] [place] Urea nitrogen [Mass/Vol] 15 mg/dL Normal 9-23 [facility] Comment on above: Performed By: #### C MP, TSH3, RAÚL, T4F #### [facility] [address] [place] [address] [place] Cortisolon 09-16-2022 Cortisol 3.7 ug/dL Normal [facility] Comment on above: Result Comment: Refe rence range: AM 6 - 24 ug/dl PM <10 ug/dl PERFORMED BY: [place] [address] PATHOLOGIST ARTIFICIAL INSEMINATOR CHITO HENDRICKS M.D. Performed By: #### C BC, CMP #### [facility] [address] Creatinine and Glomerular fi ltration rate.predicted panel (S/P/Bld)Ordered By: Kallie Chang on 09-16-2022 Creatinine [Mass/Vol] 0.98 mg/dL 0.44-1.03 [facility] Eosinophils Auto (Bld) [#/Vo l]Ordered By: Kallie Chang on 09-16-2022 Eosinophils (Bld) [#/Vol] 0.0 10*3/uL 0.0-0.45 [facility] Eosinophils/100 WBC Auto (Bl d)Ordered By: Kallie Chang on 09-16-2022 Eosinophils/100 WBC (Bld) 0.1 % . [facility] Erythrocyte distribution wid th Auto (RBC) [Ratio]Ordered By: Kallie Chang on 09-16-2022 Erythrocyte distribution width (RBC) [Ratio] 15.1 % 11.9-15.3 [facility] Estimated glomerular filtrat ion rate (GFR) non- AmericanOrdered By: Kallie Chang on 09-16-2022 GFR/1.73 sq M.predicted among non-blacks MDRD (S/P/Bld) [Vol rate/Area] > 60 mL/Min [facility] Free T4 (Free Thyroxine)on 0 09-16-2022 Free T4 [Mass/Vol] 0.84 ng/dL Normal 0.61-1.12 [facility] Comment on above: Performed By: #### C BC, CMP #### [facility] [address] Globulin Calc (S) [Mass/Vol] Ordered By: Kallie Chang on 09-16-2022 Globulin (S) [Mass/Vol] 2.8 g/dL [facility] Glucose [Mass/volume] in Ser um or PlasmaOrdered By: Kallie Chang on 09-16-2022 Glucose [Mass/Vol] 176 mg/dL 70-100 [facility] Comment on above: ADA recommended refe rence rangeRandom Glucose Reference Range is dependent on time and content of last meal. Glucose of more than 200 mg/dL in a nonstressed, ambulatory subject supports the diagnosis of Diabetes Mellitus. Hematocrit Auto (Bld) [Volum e fraction]Ordered By: Kallie Chang on 09-16-2022 Hematocrit (Bld) [Volume fraction] 38.3 % 34.0-46.4 [facility] Hemoglobin [Mass/volume] in BloodOrdered By: Kallie Chang on 09-16-2022 Hemoglobin (Bld) [Mass/Vol] 12.5 g/dL 11.8-15.4 [facility] Leukocytes [#/volume] correc annie for nucleated erythrocytes in Blood by Automated counOrdered By: Kallie Chang on 09-16-2022 WBC corrected for nucl RBC Auto (Bld) [#/Vol] 11.5 10*3/uL 3.8-11.6 [facility] Lymphocytes Auto (Bld) [#/Vo l]Ordered By: Kallie Chang on 09-16-2022 Lymphocytes (Bld) [#/Vol] 0.7 10*3/uL 1.00-4.8 [facility] Lymphocytes/100 WBC Auto (Bl d)Ordered By: Kallie Chang on 09-16-2022 Lymphocytes/100 WBC (Bld) 6.2 % . [facility] MCH Auto (RBC) [Entitic mass ]Ordered By: Kallie Chang on 09-16-2022 MCH (RBC) [Entitic mass] 30.2 pg 24.7-34.3 [facility] MCHC Auto (RBC) [Mass/Vol]Or dered By: Kallie Chang on 09-16-2022 MCHC (RBC) [Mass/Vol] 32.7 g/dL 32.0-35.0 [facility] MCV Auto (RBC) [Entitic vol] Ordered By: Kallie Chang on 09-16-2022 MCV (RBC) [Entitic vol] 92.4 fL 80-100 [facility] Monocytes Auto (Bld) [#/Vol] Ordered By: Kallie Chang on 09-16-2022 Monocytes (Bld) [#/Vol] 0.3 10*3/uL 0.0-0.8 [facility] Monocytes/100 WBC Auto (Bld) Ordered By: Kallie Chang on 09-16-2022 Monocytes/100 WBC (Bld) 2.3 % . [facility] Neutrophils Auto (Bld) [#/Vo l]Ordered By: Kallie Chang on 09-16-2022 Neutrophils (Bld) [#/Vol] 10.4 10*3/uL 1.8-7.7 [facility] Neutrophils/100 WBC Auto (Bl d)Ordered By: Kallie Chang on 09-16-2022 Neutrophils/100 WBC (Bld) 91.1 % . [facility] No Panel InformationOrdered By: Kallie Chang on 09-16-2022 Adrenocorticotropic Hormone <1.5 pg/mL 7.2-63.3 [facility] Comment on above: ACTH reference inter ervin for samples collected between 7 and10 AM.Performed at: [facility] [address] [id number] Director: Red Sena PhD, Phone: [phone] Estimated GFR () > 60 mL/Min [facility] Comment on above: GFR estimated refere nce range: According to KDOQI guidelines, <60 ml/min/1.73m2 is sufficient to diagnose a patient with chronic kidney disease. Pharmacy Creatinine Clearance (Chem 72.74 [facility] Nucleated erythrocytes [Pres ence] in Blood by Automated countOrdered By: Kallie Chang on 09-16-2022 Nucleated RBC Auto Ql (Bld) 0.1 /100{WBC} 0-0.5 [facility] Platelet mean volume Auto (B ld) [Entitic vol]Ordered By: Kallie Chang on 09-16-2022 Platelet mean volume (Bld) [Entitic vol] 6.9 fL 6.3-10.7 [facility] Platelets Auto (Bld) [#/Vol] Ordered By: Kallie Chang on 09-16-2022 Platelets (Bld) [#/Vol] 287 10*3/uL 150-450 [facility] Potassium [Moles/volume] in Serum or PlasmaOrdered By: Kallie Chang on 09-16-2022 Potassium [Moles/Vol] 4.3 mmol/L 3.5-5.1 [facility] Protein [Mass/volume] in Ser um or PlasmaOrdered By: Kallie Chang on 09-16-2022 Protein [Mass/Vol] 6.5 g/dL 6.1-7.9 [facility] RBC Auto (Bld) [#/Vol]Ordere d By: Kallie Chang on 09-16-2022 RBC (Bld) [#/Vol] 4.14 10*6/uL 3.60-5.00 [facility] Random cortisol measurementO rdered By: Kallie Chang on 09-16-2022 Cortisol [Mass/Vol] 3.7 ug/dL [facility] Comment on above: Reference range: AM 6 - 24 ug/dl PM <10 ug/dl Serum or plasma alanine napoles otransferase measurement without P-5'-P (enzymatic activiOrdered By: Kallie Chang on 09-16-2022 ALT No additional P-5'-P [Catalytic activity/Vol] 16 U/L 10-60 [facility] Serum or plasma albumin/glob ulin mass ratioOrdered By: Kallie Chang on 09-16-2022 Albumin/Globulin [Mass ratio] 1.3 {ratio} [facility] Serum or plasma anion gap de terminationOrdered By: Kallie Chang on 09-16-2022 Anion gap [Moles/Vol] 13.2 mmol/L 6.0-15.0 [facility] Sodium [Moles/volume] in Ser um or PlasmaOrdered By: Kallie Chang on 09-16-2022 Sodium [Moles/Vol] 134 mmol/L 136-146 [facility] TSH DL <= 0.005 mIU/L QnOrde red By: Kallie Chang on 09-16-2022 TSH Qn 0.51 m[IU]/L 0.45-5.33 [facility] Thyroid Stimulating Hormoneo n 09-16-2022 TSH Qn 0.51 m[IU]/L Normal 0.45-5.33 [facility] Comment on above: Performed By: #### C BC, CMP #### [address] Thyroxine (T4) free [Mass/vo lume] in Serum or PlasmaOrdered By: Kallie Chang on 09-16-2022 Free T4 [Mass/Vol] 0.84 ng/dL 0.61-1.12 [facility] Urea nitrogen [Mass/volume] in Serum or PlasmaOrdered By: Kallie Chang on 09-16-2022 Urea nitrogen [Mass/Vol] 15 mg/dL 04-10 [facility] WBC Auto (Bld) [#/Vol]Ordere d By: Kallie Chang on 09-16-2022 WBC (Bld) [#/Vol] 11.5 10*3/uL 3.8-11.6 [facility] Adrenocorticotropic Hormone PLon 08-27-[address] 2.7 pg/mL Low 7.2-63.3 [facility] Comment on above: Result Comment: ACTH reference interval for samples collected between 7 and 10 AM. Performed at: - [place] [id number] Detective And Intelligence Analyst: Red Sena PhD, Phone: [phone] PERFORMED BY: [place] [address] PATHOLOGIST ARTIFICIAL INSEMINATOR CHITO HENDRICKS M.D. Performed By: #### C MP, CBC #### [address] Complete Blood Count Auto Di ffon 08-27-2022 Basophils (Bld) [#/Vol] 0.1 10*3/uL Normal 0.0-0.2 [facility] Comment on above: Result Comment: PERF ORMED BY: [place] [address] PATHOLOGIST ARTIFICIAL INSEMINATOR CHITO HENDRICKS M.D. Performed By: #### C BC, CMP #### [address] Basophils/100 WBC (Bld) 0.8 % Normal . [facility] Comment on above: Performed By: #### C BC, CMP #### [facility] [address] [place] [address] [place] Eosinophils (Bld) [#/Vol] 0.1 10*3/uL Normal 0.0-0.45 [facility] Comment on above: Performed By: #### C BC, CMP #### [facility] [address] [place] [address] [place] Eosinophils/100 WBC (Bld) 2.3 % Normal . [facility] Comment on above: Performed By: #### C BC, CMP #### [address] Erythrocyte distribution width (RBC) [Ratio] 15.1 % Normal 11.9-15.3 [facility] Comment on above: Performed By: #### C BC, CMP #### [address] Hematocrit (Bld) [Volume fraction] 36.6 % Normal 34.0-46.4 [facility] Comment on above: Performed By: #### C BC, CMP #### [address] Hemoglobin (Bld) [Mass/Vol] 12.3 g/dL Normal 11.8-15.4 [facility] Comment on above: Performed By: #### C BC, CMP #### [place] [address] [place] Lymphocytes (Bld) [#/Vol] 1.5 10*3/uL Normal 1.00-4.8 [facility] Comment on above: Performed By: #### C BC, CMP #### [place] [address] [place] Lymphocytes/100 WBC (Bld) 25.4 % Normal . [facility] Comment on above: Performed By: #### C BC, CMP #### [address] MCH (RBC) [Entitic mass] 30.7 pg Normal 24.7-34.3 [facility] Comment on above: Performed By: #### C BC, CMP #### [facility] [address] MCV (RBC) [Entitic vol] 91.1 fL Normal 80-100 [facility] Comment on above: Performed By: #### C BC, CMP #### [facility] [address] Mean Corpuscular HGB Conc 33.7 g/dL Normal 32.0-35.0 [facility] Comment on above: Performed By: #### C BC, CMP #### [facility] [address] Monocytes (Bld) [#/Vol] 0.4 10*3/uL Normal 0.0-0.8 [facility] Comment on above: Performed By: #### C BC, CMP #### [facility] [address] [place] [address] [place] Monocytes/100 WBC (Bld) 6.2 % Normal . [facility] Comment on above: Performed By: #### C BC, CMP #### [facility] [address] [place] [address] [place] Neutrophils (Bld) [#/Vol] 4.0 10*3/uL Normal 1.8-7.7 [facility] Comment on above: Performed By: #### C BC, CMP #### [facility] [address] [place] [address] [place] Neutrophils/100 WBC (Bld) 65.3 % Normal . [facility] Comment on above: Performed By: #### C BC, CMP #### [facility] [address] [place] [address] [place] NRBC% 0.2 /100{WBC} Normal 0-0.5 [facility] Comment on above: Performed By: #### C BC, CMP #### [facility] [address] Platelet mean volume (Bld) [Entitic vol] 6.8 fL Normal 6.3-10.7 [facility] Comment on above: Performed By: #### C BC, CMP #### [facility] [address] Platelets (Bld) [#/Vol] 272 10*3/uL Normal 150-450 [facility] Comment on above: Performed By: #### C BC, CMP #### [address] RBC (Bld) [#/Vol] 4.01 10*6/uL Normal 3.60-5.00 [facility] Comment on above: Performed By: #### C BC, CMP #### [address] WBC (Bld) [#/Vol] 6.1 10*3/uL Normal 3.8-11.6 [facility] Comment on above: Performed By: #### C BC, CMP #### [address] Comprehensive Metabolic Pane arthur 08-27-2022 Albumin [Mass/Vol] 3.6 g/dL Normal 3.2-5.5 [facility] Comment on above: Performed By: #### C BC, CMP #### [address] Albumin/Globulin [Mass ratio] 1.4 {ratio} Normal [facility] Comment on above: Performed By: #### C BC, CMP #### [address] ALP [Catalytic activity/Vol] 89 U/L Normal 32-92 [facility] Comment on above: Performed By: #### C BC, CMP #### [address] ALT [Catalytic activity/Vol] 18 U/L Normal 10-60 [facility] Comment on above: Performed By: #### C BC, CMP #### [address] Anion gap [Moles/Vol] 11.5 mmol/L Normal 6.0-15.0 [facility] Comment on above: Performed By: #### C BC, CMP #### [facility] [address] [place] [address] [place] AST [Catalytic activity/Vol] 20 U/L Normal 10-42 [facility] Comment on above: Performed By: #### C BC, CMP #### [facility] [address] [place] [id number] [facility] Bilirubin [Mass/Vol] 0.4 mg/dL Normal 0.3-1.2 [facility] Comment on above: Performed By: #### C BC, CMP #### [facility] [address] Calcium [Mass/Vol] 9.1 mg/dL Normal 8.2-10.2 [facility] Comment on above: Performed By: #### C BC, CMP #### [facility] [address] [place] [address] [place] Chloride [Moles/Vol] 103 mmol/L Normal 95-114 [facility] Comment on above: Performed By: #### C BC, CMP #### [facility] [address] [place] [address] [place] CO2 [Moles/Vol] 24.3 mmol/L Normal 22.0-30.0 [facility] Comment on above: Performed By: #### C BC, CMP #### [facility] [address] [place] [address] [place] Creatinine [Mass/Vol] 0.79 mg/dL Normal 0.44-1.03 [facility] Comment on above: Performed By: #### C BC, CMP #### [facility] [address] [place] [address] [place] Creatinine Clr Calc Pharmacy 89.84 Normal [facility] Comment on above: Result Comment: PERF ORMED BY: [place] [address] PATHOLOGIST ARTIFICIAL INSEMINATOR CHITO HENDRICKS M.D. Performed By: #### C BC, CMP #### [facility] [address] [place] [address] [place] Estimated GFR ( Janis > 60 Normal [facility] Comment on above: Result Comment: GFR estimated reference range: According to KDOQI guidelines, <60 ml/min/1.73m2 is sufficient to diagnose a patient with chronic kidney disease. Performed By: #### C BC, CMP #### [address] Estimated GFR (Non- Am > 60 Normal [facility] Comment on above: Performed By: #### C BC, CMP #### [address] Globulin (S) [Mass/Vol] 2.6 g/dL Normal [facility] Comment on above: Performed By: #### C BC, CMP #### [address] Glucose [Mass/Vol] 130 mg/dL High 70-100 [facility] Comment on above: Result Comment: [place] Glucose Reference Range is dependent on time and content of last meal. Glucose of more than 200 mg/dL in a nonstressed, ambulatory subject supports the diagnosis of Diabetes Mellitus. ADA recommended reference range Performed By: #### C BC, CMP #### [address] Potassium [Moles/Vol] 3.8 mmol/L Normal 3.5-5.1 [facility] Comment on above: Performed By: #### C BC, CMP #### [place] [address] [place] Protein [Mass/Vol] 6.2 g/dL Normal 6.1-7.9 [facility] Comment on above: Performed By: #### C BC, CMP #### [place] [address] [place] Sodium [Moles/Vol] 135 mmol/L Low 136-146 [facility] Comment on above: Performed By: #### C BC, CMP #### [place] [address] [place] Urea nitrogen [Mass/Vol] 15 mg/dL Normal 9-23 [facility] Comment on above: Performed By: #### C BC, CMP #### [address] Cortisolon 08-27-2022 Cortisol < 0.4 Normal [facility] Comment on above: Result Comment: Refe rence range: AM 6 - 24 ug/dl PM <10 ug/dl PERFORMED BY: [place] [address] PATHOLOGIST ARTIFICIAL INSEMINATOR CHITO HENDRICKS M.D. Performed By: #### C MP, CBC #### [address] Free T4 (Free Thyroxine)on 0 08-27-2022 Free T4 [Mass/Vol] 0.66 ng/dL Normal 0.61-1.12 [facility] Comment on above: Performed By: #### C BC, CMP #### [address] Thyroid Stimulating Hormoneo n 08-27-2022 TSH Qn 6.13 m[IU]/L High 0.45-5.33 [facility] Comment on above: Performed By: #### C MP, CBC #### [address] Adrenocorticotropic Hormone PLon 08-05-[address] <1.5 Low 7.2-63.3 [facility] Comment on above: Result Comment: ACTH reference interval for samples collected between 7 and 10 AM. Performed at: [facility] [id number] Detective And Intelligence Analyst: Red Sena PhD, Phone: [phone] PERFORMED BY: [place] [address] PATHOLOGIST ARTIFICIAL INSEMINATOR CHITO HENDRICKS M.D. Performed By: #### C MP, CBC #### [address] Albumin [Mass/volume] in Ser um or PlasmaOrdered By: Kallie Chang on 08-05-2022 Albumin [Mass/Vol] 3.8 g/dL 3.2-5.5 [facility] Basophils Auto (Bld) [#/Vol] Ordered By: Kallie Chang on 08-05-2022 Basophils (Bld) [#/Vol] 0.0 10*3/uL 0.0-0.2 [facility] Basophils/100 WBC Auto (Bld) Ordered By: Kallie Chang on 08-05-2022 Basophils/100 WBC (Bld) 0.2 % . [facility] Complete Blood Count Auto Di ffon 08-05-2022 Basophils (Bld) [#/Vol] 0.0 10*3/uL Normal 0.0-0.2 [facility] Comment on above: Result Comment: PERF ORMED BY: [place] [address] PATHOLOGIST ARTIFICIAL INSEMINATOR CHITO HENDRICKS M.D. Performed By: #### C MP, CBC #### [address] Basophils/100 WBC (Bld) 0.2 % Normal . [facility] Comment on above: Performed By: #### C MP, CBC #### [address] Eosinophils (Bld) [#/Vol] 0.0 10*3/uL Normal 0.0-0.45 [facility] Comment on above: Performed By: #### C MP, CBC #### [address] Eosinophils/100 WBC (Bld) 0.0 % Normal . [facility] Comment on above: Performed By: #### C MP, CBC #### [address] Erythrocyte distribution width (RBC) [Ratio] 14.9 % Normal 11.9-15.3 [facility] Comment on above: Performed By: #### C MP, CBC #### [address] Hematocrit (Bld) [Volume fraction] 37.2 % Normal 34.0-46.4 [facility] Comment on above: Performed By: #### C MP, CBC #### [facility] [address] Hemoglobin (Bld) [Mass/Vol] 12.2 g/dL Normal 11.8-15.4 [facility] Comment on above: Performed By: #### C MP, CBC #### [facility] [address] Lymphocytes (Bld) [#/Vol] 0.5 10*3/uL Low 1.00-4.8 [facility] Comment on above: Performed By: #### C MP, CBC #### [facility] [address] Lymphocytes/100 WBC (Bld) 5.5 % Normal . [facility] Comment on above: Performed By: #### C MP, CBC #### [facility] [address] MCH (RBC) [Entitic mass] 29.8 pg Normal 24.7-34.3 [facility] Comment on above: Performed By: #### C MP, CBC #### [facility] [address] MCV (RBC) [Entitic vol] 90.9 fL Normal 80-100 [facility] Comment on above: Performed By: #### C MP, CBC #### [facility] [address] Mean Corpuscular HGB Conc 32.8 g/dL Normal 32.0-35.0 [facility] Comment on above: Performed By: #### C MP, CBC #### [facility] [address] [place] [address] [place] Monocytes (Bld) [#/Vol] 0.1 10*3/uL Normal 0.0-0.8 [facility] Comment on above: Performed By: #### C MP, CBC #### [facility] [address] Monocytes/100 WBC (Bld) 1.4 % Normal . [facility] Comment on above: Performed By: #### C MP, CBC #### [facility] [address] [place] [address] [place] Neutrophils (Bld) [#/Vol] 8.7 10*3/uL High 1.8-7.7 [facility] Comment on above: Performed By: #### C MP, CBC #### [facility] [address] [place] [id number] [place] Neutrophils/100 WBC (Bld) 92.9 % Normal . [facility] Comment on above: Performed By: #### C MP, CBC #### [facility] [address] NRBC% 0.0 /100{WBC} Normal 0-0.5 [facility] Comment on above: Performed By: #### C MP, CBC #### [facility] [address] Platelet mean volume (Bld) [Entitic vol] 7.1 fL Normal 6.3-10.7 [facility] Comment on above: Performed By: #### C MP, CBC #### [facility] [address] [place] [address] [place] Platelets (Bld) [#/Vol] 263 10*3/uL Normal 150-450 [facility] Comment on above: Performed By: #### C MP, CBC #### [facility] [address] [place] [address] [place] RBC (Bld) [#/Vol] 4.09 10*6/uL Normal 3.60-5.00 [facility] Comment on above: Performed By: #### C MP, CBC #### [facility] [address] [place] [address] [place] WBC (Bld) [#/Vol] 9.3 10*3/uL Normal 3.8-11.6 [facility] Comment on above: Performed By: #### C MP, CBC #### [facility] [address] Comprehensive Metabolic Pane arthur 08-05-2022 Albumin [Mass/Vol] 3.8 g/dL Normal 3.2-5.5 [facility] Comment on above: Performed By: #### C MP, CBC #### [facility] [address] [place] [address] [place] Albumin/Globulin [Mass ratio] 1.4 {ratio} [facility] Comment on above: Performed By: #### C MP, CBC #### [facility] [address] Albumin/Globulin [Mass ratio] 1.3 {ratio} [facility] Comment on above: Performed By: #### C MP, CBC #### [facility] [address] [place] [address] ALP [Catalytic activity/Vol] 88 U/L Normal [facility] Comment on above: Performed By: #### C MP, CBC #### [facility] [address] [place] [address] ALP [Catalytic activity/Vol] 89 U/L Normal [facility] Comment on above: Performed By: #### C MP, CBC #### [facility] [address] [place] [address] [place] ALT [Catalytic activity/Vol] 17 U/L Normal [facility] Comment on above: Performed By: #### C MP, CBC #### [facility] [address] [place] [address] [place] ALT [Catalytic activity/Vol] 16 U/L Normal [facility] Comment on above: Performed By: #### C MP, CBC #### [facility] [address] [place] [address] [place] Anion gap [Moles/Vol] 14.5 mmol/L Normal 6.0-15.0 [facility] Comment on above: Performed By: #### C MP, CBC #### [facility] [address] [place] [address] Anion gap [Moles/Vol] 16.6 mmol/L High 6.0-15.0 [facility] Comment on above: Performed By: #### C MP, CBC #### [facility] [address] AST [Catalytic activity/Vol] 15 U/L Normal 10-42 [facility] Comment on above: Performed By: #### C MP, CBC #### [address] AST [Catalytic activity/Vol] 18 U/L Normal 10-42 [facility] Comment on above: Performed By: #### C MP, CBC #### [address] Bilirubin [Mass/Vol] 0.5 mg/dL Normal 0.3-1.2 [facility] Comment on above: Performed By: #### C MP, CBC #### [address] Bilirubin [Mass/Vol] 0.7 mg/dL Normal 0.3-1.2 [facility] Comment on above: Performed By: #### C MP, CBC #### [address] Calcium [Mass/Vol] 9.0 mg/dL Normal 8.2-10.2 [facility] Comment on above: Performed By: #### C MP, CBC #### [address] Calcium [Mass/Vol] 9.1 mg/dL Normal 8.2-10.2 [facility] Comment on above: Performed By: #### C MP, CBC #### [facility] [address] [place] [address] [place] Chloride [Moles/Vol] 101 mmol/L Normal 95-114 [facility] Comment on above: Performed By: #### C MP, CBC #### [facility] [address] [place] [address] [place] Chloride [Moles/Vol] 99 mmol/L Normal 95-114 [facility] Comment on above: Performed By: #### C MP, CBC #### [place] [address] [place] CO2 [Moles/Vol] 25.1 mmol/L Normal 22.0-30.0 [facility] Comment on above: Performed By: #### C MP, CBC #### [facility] [address] [place] [address] CO2 [Moles/Vol] 24.0 mmol/L Normal 22.0-30.0 [facility] Comment on above: Performed By: #### C MP, CBC #### [place] [address] [place] Creatinine [Mass/Vol] 1.01 mg/dL Normal 0.44-1.03 [facility] Comment on above: Performed By: #### C MP, CBC #### [address] Creatinine [Mass/Vol] 1.03 mg/dL Normal 0.44-1.03 [facility] Comment on above: Performed By: #### C MP, CBC #### [place] [address] [place] Creatinine Clr Calc Pharmacy 69.07 [facility] Comment on above: Result Comment: PERF ORMED BY: [place] [address] PATHOLOGIST ARTIFICIAL INSEMINATOR CHITO HENDRICKS M.D. Performed By: #### C MP, CBC #### [place] [address] [place] Creatinine Clr Calc Pharmacy 67.73 [facility] Comment on above: Performed By: #### C MP, CBC #### [facility] [address] [place] [address] Estimated GFR ( Janis > 60 [facility] Comment on above: Result Comment: GFR estimated reference range: According to KDOQI guidelines, <60 ml/min/1.73m2 is sufficient to diagnose a patient with chronic kidney disease. Performed By: #### C MP, CBC #### [place] [address] [place] Estimated GFR (Non- Am 59 [facility] Comment on above: Performed By: #### C MP, CBC #### [address] [place] [address] [place] Estimated GFR (Non- Am 58 Normal [facility] Comment on above: Performed By: #### C MP, CBC #### [facility] [address] [place] [id number] [facility] Globulin (S) [Mass/Vol] 2.8 g/dL Normal [facility] Comment on above: Performed By: #### C MP, CBC #### [facility] [address] Globulin (S) [Mass/Vol] 2.9 g/dL Normal [facility] Comment on above: Performed By: #### C MP, CBC #### [facility] [address] Glucose [Mass/Vol] 164 mg/dL High 70-100 [facility] Comment on above: Result Comment: [place] Glucose Reference Range is dependent on time and content of last meal. Glucose of more than 200 mg/dL in a nonstressed, ambulatory subject supports the diagnosis of Diabetes Mellitus. ADA recommended reference range Performed By: #### C MP, CBC #### [address] Potassium [Moles/Vol] 4.6 mmol/L Normal 3.5-5.1 [facility] Comment on above: Performed By: #### C MP, CBC #### [place] [address] [place] Protein [Mass/Vol] 6.6 g/dL Normal 6.1-7.9 [facility] Comment on above: Performed By: #### C MP, CBC #### [facility] [address] [place] [id number] [place] Protein [Mass/Vol] 6.7 g/dL Normal 6.1-7.9 [facility] Comment on above: Performed By: #### C MP, CBC #### [facility] [address] [place] [address] [place] Sodium [Moles/Vol] 136 mmol/L Normal 136-146 [facility] Comment on above: Performed By: #### C MP, CBC #### [facility] [address] Sodium [Moles/Vol] 135 mmol/L Low 136-146 [facility] Comment on above: Performed By: #### C MP, CBC #### [facility] [address] Urea nitrogen [Mass/Vol] 15 mg/dL Normal 9-23 [facility] Comment on above: Performed By: #### C MP, CBC #### [facility] [address] Creatinine and Glomerular fi ltration rate.predicted panel (S/P/Bld)Ordered By: Kallie Chang on 08-05-2022 Creatinine [Mass/Vol] 1.03 mg/dL 0.44-1.03 [facility] Eosinophils Auto (Bld) [#/Vo l]Ordered By: Kallie Chang on 08-05-2022 Eosinophils (Bld) [#/Vol] 0.0 10*3/uL 0.0-0.45 [facility] Eosinophils/100 WBC Auto (Bl d)Ordered By: Kallie Chang on 08-05-2022 Eosinophils/100 WBC (Bld) 0.0 % . [facility] Erythrocyte distribution wid th Auto (RBC) [Ratio]Ordered By: Kallie Chang on 08-05-2022 Erythrocyte distribution width (RBC) [Ratio] 14.9 % 11.9-15.3 [facility] Estimated glomerular filtrat ion rate (GFR) non- AmericanOrdered By: Kallie Chang on 08-05-2022 GFR/1.73 sq M.predicted among non-blacks MDRD (S/P/Bld) [Vol rate/Area] 58 mL/Min [facility] Free T4 (Free Thyroxine)on 0 08-05-2022 Free T4 [Mass/Vol] 0.71 ng/dL Normal 0.61-1.12 [facility] Comment on above: Performed By: #### C MP, CBC #### [facility] [address] [place] [address] [place] Globulin Calc (S) [Mass/Vol] Ordered By: Kallie Chang on 08-05-2022 Globulin (S) [Mass/Vol] 2.9 g/dL [facility] Hematocrit Auto (Bld) [Volum e fraction]Ordered By: Kallie Chang on 08-05-2022 Hematocrit (Bld) [Volume fraction] 37.2 % 34.0-46.4 [facility] Hemoglobin [Mass/volume] in BloodOrdered By: Kallie Chang on 08-05-2022 Hemoglobin (Bld) [Mass/Vol] 12.2 g/dL 11.8-15.4 [facility] LDH Lactate Dehydrogenaseon 08-05-2022 LDH Lactate Dehydrogenase 169 U/L Normal 45-190 [facility] Comment on above: Performed By: #### C MP, CBC #### [address] Lactate dehydrogenase measur ement (enzymatic activity/volume)Ordered By: Kallie Chang on 08-05-2022 LDH (Unsp spec) [Catalytic activity/Vol] 169 U/L 45-190 [facility] Leukocytes [#/volume] correc annie for nucleated erythrocytes in Blood by Automated counOrdered By: Kallie Chang on 08-05-2022 WBC corrected for nucl RBC Auto (Bld) [#/Vol] 9.3 10*3/uL 3.8-11.6 [facility] Lymphocytes Auto (Bld) [#/Vo l]Ordered By: Kallie Chang on 08-05-2022 Lymphocytes (Bld) [#/Vol] 0.5 10*3/uL 1.00-4.8 [facility] Lymphocytes/100 WBC Auto (Bl d)Ordered By: Kallie Chang on 08-05-2022 Lymphocytes/100 WBC (Bld) 5.5 % . [facility] MCH Auto (RBC) [Entitic mass ]Ordered By: Kallie Chang on 08-05-2022 MCH (RBC) [Entitic mass] 29.8 pg 24.7-34.3 [facility] MCHC Auto (RBC) [Mass/Vol]Or dered By: Kallie Chang on 08-05-2022 MCHC (RBC) [Mass/Vol] 32.8 g/dL 32.0-35.0 [facility] MCV Auto (RBC) [Entitic vol] Ordered By: Kallie Chang on 08-05-2022 MCV (RBC) [Entitic vol] 90.9 fL 80-100 [facility] Monocytes Auto (Bld) [#/Vol] Ordered By: Kallie Chang on 08-05-2022 Monocytes (Bld) [#/Vol] 0.1 10*3/uL 0.0-0.8 [facility] Monocytes/100 WBC Auto (Bld) Ordered By: Kallie Chang on 08-05-2022 Monocytes/100 WBC (Bld) 1.4 % . [facility] Neutrophils Auto (Bld) [#/Vo l]Ordered By: Kallie Chang on 08-05-2022 Neutrophils (Bld) [#/Vol] 8.7 10*3/uL 1.8-7.7 [facility] Neutrophils/100 WBC Auto (Bl d)Ordered By: Kallie Chang on 08-05-2022 Neutrophils/100 WBC (Bld) 92.9 % . [facility] No Panel InformationOrdered By: Kallie Chang on 08-05-2022 Adrenocorticotropic Hormone <1.5 pg/mL 7.2-63.3 [facility] Comment on above: ACTH reference inter ervin for samples collected between 7 and10 AM.Performed at: [facility] [address] [id number] Director: Red Sena PhD, Phone: [phone] Estimated GFR () > 60 mL/Min [facility] Comment on above: GFR estimated refere nce range: According to KDOQI guidelines, <60 ml/min/1.73m2 is sufficient to diagnose a patient with chronic kidney disease. Pharmacy Creatinine Clearance (Chem 67.73 [facility] Nucleated erythrocytes [Pres ence] in Blood by Automated countOrdered By: Kallie Chang on 08-05-2022 Nucleated RBC Auto Ql (Bld) 0.0 /100{WBC} 0-0.5 [facility] Platelet mean volume Auto (B ld) [Entitic vol]Ordered By: Kallie Chang on 08-05-2022 Platelet mean volume (Bld) [Entitic vol] 7.1 fL 6.3-10.7 [facility] Platelets Auto (Bld) [#/Vol] Ordered By: Kallie Chang on 08-05-2022 Platelets (Bld) [#/Vol] 263 10*3/uL 150-450 [facility] Protein [Mass/volume] in Ser um or PlasmaOrdered By: Kallie Chang on 08-05-2022 Protein [Mass/Vol] 6.7 g/dL 6.1-7.9 [facility] RBC Auto (Bld) [#/Vol]Ordere d By: Kallie Chang on 08-05-2022 RBC (Bld) [#/Vol] 4.09 10*6/uL 3.60-5.00 [facility] Serum or plasma alanine napoles otransferase measurement without P-5'-P (enzymatic activiOrdered By: Kallie Chang on 08-05-2022 ALT No additional P-5'-P [Catalytic activity/Vol] 16 U/L 10-60 [facility] Serum or plasma albumin/glob ulin mass ratioOrdered By: Kallie Chang on 08-05-2022 Albumin/Globulin [Mass ratio] 1.3 {ratio} [facility] Serum or plasma alkaline zo sphatase measurement (enzymatic activity/volume)Ordered By: Kallie Chang on 08-05-2022 ALP [Catalytic activity/Vol] 89 U/L 32-92 [facility] Serum or plasma anion gap de terminationOrdered By: Kallie Chang on 08-05-2022 Anion gap [Moles/Vol] 16.6 mmol/L 6.0-15.0 [facility] Serum or plasma aspartate am inotransferase measurement (enzymatic activity/volume)Ordered By: Kallie Chang on 08-05-2022 AST [Catalytic activity/Vol] 18 U/L 10-42 [facility] Serum or plasma calcium daiana urement (mass/volume)Ordered By: Kallie Chang on 08-05-2022 Calcium [Mass/Vol] 9.1 mg/dL 8.2-10.2 [facility] Serum or plasma chloride lizett surement (moles/volume)Ordered By: Kallie Chang on 01-18-2023 Chloride [Moles/Vol] 99 mmol/L 95-114 [facility] Serum or plasma glucose daiana urement (mass/volume)Ordered By: Kallie Chang on 08-05-2022 Glucose [Mass/Vol] 164 mg/dL 70-100 [facility] Comment on above: ADA recommended refe rence rangeRandom Glucose Reference Range is dependent on time and content of last meal. Glucose of more than 200 mg/dL in a nonstressed, ambulatory subject supports the diagnosis of Diabetes Mellitus. Serum or plasma potassium me asurement (moles/volume)Ordered By: Kallie hCang on 08-05-2022 Potassium [Moles/Vol] 4.6 mmol/L 3.5-5.1 [facility] Serum or plasma sodium measu rement (moles/volume)Ordered By: Kallie Chang on 08-05-2022 Sodium [Moles/Vol] 135 mmol/L 136-146 [facility] Serum or plasma total biliru bin measurement (mass/volume)Ordered By: Kallie Chang on 08-05-2022 Bilirubin [Mass/Vol] 0.7 mg/dL 0.3-1.2 [facility] Serum or plasma total carbon dioxide measurement (moles/volume)Ordered By: Kallie Chang on 08-05-2022 CO2 [Moles/Vol] 24.0 mmol/L 22.0-30.0 [facility] Serum or plasma urea nitroge n measurement (mass/volume)Ordered By: Kallie Chang on 08-05-2022 Urea nitrogen [Mass/Vol] 15 mg/dL 9-23 [facility] TSH DL <= 0.005 mIU/L QnOrde red By: Kallie Chang on 08-05-2022 TSH Qn 0.70 m[IU]/L 0.45-5.33 [facility] Thyroid Stimulating Hormoneo n 08-05-2022 TSH Qn 0.70 m[IU]/L Normal 0.45-5.33 [facility] Comment on above: Result Comment: PERF ORMED BY: [facility] [address] [place] [address] PATHOLOGIST ARTIFICIAL INSEMINATOR CHITO HENDRICKS M.D. Performed By: #### C MP, CBC #### [address] Thyroxine (T4) free [Mass/vo lume] in Serum or PlasmaOrdered By: Kallie Chang on 08-05-2022 Free T4 [Mass/Vol] 0.71 ng/dL 0.61-1.12 [facility] WBC Auto (Bld) [#/Vol]Ordere d By: Kallie Chang on 08-05-2022 WBC (Bld) [#/Vol] 9.3 10*3/uL 3.8-11.6 [facility] Adrenocorticotropic Hormone PLon 07-22-[address] <1.5 Low 7.2-63.3 [facility] Comment on above: Result Comment: ACTH reference interval for samples collected between 7 and 10 AM. Performed at: [facility] [address] [id number] Detective And Intelligence Analyst: Red Sena PhD, Phone: [phone] PERFORMED BY: [place] [address] PATHOLOGIST ARTIFICIAL INSEMINATOR CHITO HENDRICKS M.D. Performed By: #### C MP, CBC #### [address] Complete Blood Count Auto Di ffon 07-22-2022 Basophils (Bld) [#/Vol] 0.0 10*3/uL Normal 0.0-0.2 [facility] Comment on above: Result Comment: PERF ORMED BY: [place] [address] PATHOLOGIST ARTIFICIAL INSEMINATOR CHITO HENDRICKS M.D. Performed By: #### C BC #### [place] [address] [place] Basophils/100 WBC (Bld) 0.7 % Normal . [facility] Comment on above: Performed By: #### C BC #### [place] [address] [place] Eosinophils (Bld) [#/Vol] 0.1 10*3/uL Normal 0.0-0.45 [facility] Comment on above: Performed By: #### C BC #### [facility] [address] [place] [address] [place] Eosinophils/100 WBC (Bld) 1.3 % Normal . [facility] Comment on above: Performed By: #### C BC #### [facility] [address] Erythrocyte distribution width (RBC) [Ratio] 13.7 % Normal 11.9-15.3 [facility] Comment on above: Performed By: #### C BC #### [facility] [address] Hematocrit (Bld) [Volume fraction] 32.7 % Low 34.0-46.4 [facility] Comment on above: Performed By: #### C BC #### [facility] [address] Hemoglobin (Bld) [Mass/Vol] 11.0 g/dL Low 11.8-15.4 [facility] Comment on above: Performed By: #### C BC #### [facility] [address] [place] [address] [place] Lymphocytes (Bld) [#/Vol] 1.3 10*3/uL Normal 1.00-4.8 [facility] Comment on above: Performed By: #### C BC #### [facility] [address] Lymphocytes/100 WBC (Bld) 19.9 % Normal . [facility] Comment on above: Performed By: #### C BC #### [facility] [address] MCH (RBC) [Entitic mass] 30.1 pg Normal 24.7-34.3 [facility] Comment on above: Performed By: #### C BC #### [facility] [address] MCV (RBC) [Entitic vol] 89.6 fL Normal 80-100 [facility] Comment on above: Performed By: #### C BC #### [facility] [address] Mean Corpuscular HGB Conc 33.6 g/dL Normal 32.0-35.0 [facility] Comment on above: Performed By: #### C BC #### [facility] [address] Monocytes (Bld) [#/Vol] 0.4 10*3/uL Normal 0.0-0.8 [facility] Comment on above: Performed By: #### C BC #### [facility] [address] [place] [address] [place] Monocytes/100 WBC (Bld) 6.3 % Normal . [facility] Comment on above: Performed By: #### C BC #### [address] Neutrophils (Bld) [#/Vol] 4.6 10*3/uL Normal 1.8-7.7 [facility] Comment on above: Performed By: #### C BC #### [address] Neutrophils/100 WBC (Bld) 71.8 % Normal . [facility] Comment on above: Performed By: #### C BC #### [address] NRBC% 0.2 /100{WBC} Normal 0-0.5 [facility] Comment on above: Performed By: #### C BC #### [address] Platelet mean volume (Bld) [Entitic vol] 6.9 fL Normal 6.3-10.7 [facility] Comment on above: Performed By: #### C BC #### [place] [address] [place] Platelets (Bld) [#/Vol] 361 10*3/uL Normal 150-450 [facility] Comment on above: Performed By: #### C BC #### [place] [address] [place] RBC (Bld) [#/Vol] 3.65 10*6/uL Normal 3.60-5.00 [facility] Comment on above: Performed By: #### C BC #### [address] WBC (Bld) [#/Vol] 6.5 10*3/uL Normal 3.8-11.6 [facility] Comment on above: Performed By: #### C BC #### [address] Comprehensive Metabolic Pane arthur 07-22-2022 Albumin [Mass/Vol] 3.5 g/dL Normal 3.2-5.5 [facility] Comment on above: Performed By: #### C MP, TSH3, RAÚL, T4F #### [address] Albumin/Globulin [Mass ratio] 1.2 {ratio} Normal [facility] Comment on above: Performed By: #### C MP, TSH3, RAÚL, T4F #### [address] ALP [Catalytic activity/Vol] 71 U/L Normal 32-92 [facility] Comment on above: Performed By: #### C MP, TSH3, RAÚL, T4F #### [address] ALT [Catalytic activity/Vol] 18 U/L Normal 10-60 [facility] Comment on above: Performed By: #### C MP, TSH3, RAÚL, T4F #### [address] Anion gap [Moles/Vol] 13.0 mmol/L Normal 6.0-15.0 [facility] Comment on above: Performed By: #### C MP, TSH3, RAÚL, T4F #### [address] AST [Catalytic activity/Vol] 19 U/L Normal 10-42 [facility] Comment on above: Performed By: #### C MP, TSH3, RAÚL, T4F #### [facility] [address] Bilirubin [Mass/Vol] 0.3 mg/dL Normal 0.3-1.2 [facility] Comment on above: Performed By: #### C MP, TSH3, RAÚL, T4F #### [facility] [address] Calcium [Mass/Vol] 9.2 mg/dL Normal 8.2-10.2 [facility] Comment on above: Performed By: #### C MP, TSH3, RAÚL, T4F #### [address] Chloride [Moles/Vol] 103 mmol/L Normal 95-114 [facility] Comment on above: Performed By: #### C MP, TSH3, RAÚL, T4F #### [address] CO2 [Moles/Vol] 23.1 mmol/L Normal 22.0-30.0 [facility] Comment on above: Performed By: #### C MP, TSH3, RAÚL, T4F #### [address] Creatinine [Mass/Vol] 0.67 mg/dL Normal 0.44-1.03 [facility] Comment on above: Performed By: #### C MP, TSH3, RAÚL, T4F #### [facility] [address] [place] [address] [place] Creatinine Clr Calc Pharmacy 103.05 [facility] Comment on above: Performed By: #### C MP, TSH3, RAÚL, T4F #### [address] Estimated GFR ( Janis > 60 [facility] Comment on above: Result Comment: GFR estimated reference range: According to KDOQI guidelines, <60 ml/min/1.73m2 is sufficient to diagnose a patient with chronic kidney disease. Performed By: #### C MP, TSH3, RAÚL, T4F #### [place] [id number] [place] Estimated GFR (Non- Am > 60 Normal [facility] Comment on above: Performed By: #### C MP, TSH3, RAÚL, T4F #### [address] Globulin (S) [Mass/Vol] 2.9 g/dL Normal [facility] Comment on above: Performed By: #### C MP, TSH3, RAÚL, T4F #### [address] Glucose [Mass/Vol] 93 mg/dL Normal 70-100 [facility] Comment on above: Result Comment: [facility] Glucose Reference Range is dependent on time and content of last meal. Glucose of more than 200 mg/dL in a nonstressed, ambulatory subject supports the diagnosis of Diabetes Mellitus. ADA recommended reference range Performed By: #### C MP, TSH3, RAÚL, T4F #### [address] Potassium [Moles/Vol] 4.1 mmol/L Normal 3.5-5.1 [facility] Comment on above: Performed By: #### C MP, TSH3, RAÚL, T4F #### [address] Protein [Mass/Vol] 6.4 g/dL Normal 6.1-7.9 [facility] Comment on above: Performed By: #### C MP, TSH3, RAÚL, T4F #### [address] Sodium [Moles/Vol] 135 mmol/L Low 136-146 [facility] Comment on above: Performed By: #### C MP, TSH3, RAÚL, T4F #### [address] Urea nitrogen [Mass/Vol] 10 mg/dL Normal 9-23 [facility] Comment on above: Performed By: #### C MP, TSH3, RAÚL, T4F #### [address] Cortisolon 01-04-2023 Cortisol 2.6 ug/dL Normal [facility] Comment on above: Result Comment: Refe rence range: AM 6 - 24 ug/dl PM <10 ug/dl PERFORMED BY: [place] [address] PATHOLOGIST ARTIFICIAL INSEMINATOR CHITO HENDRICKS M.D. Performed By: #### C MP, TSH3, RAÚL, T4F #### [facility] [address] [place] [address] Free T4 (Free Thyroxine)on 0 07-22-2022 Free T4 [Mass/Vol] 0.78 ng/dL Normal 0.61-1.12 [facility] Comment on above: Performed By: #### C MP, TSH3, RAÚL, T4F #### [address] Random cortisol measurementO rdered By: Kallie Chang on 07-22-2022 Cortisol [Mass/Vol] 2.6 ug/dL [facility] Comment on above: Reference range: AM 6 - 24 ug/dl PM <10 ug/dl Thyroid Stimulating Hormoneo n 07-22-2022 TSH Qn 1.41 m[IU]/L Normal 0.45-5.33 [facility] Comment on above: Performed By: #### C MP, TSH3, RAÚL, T4F #### [address] MR cervical spine wo conon 1 08-20-2021 MR cervical spine wo con [facility] Main [place] [address] [place] [address] MRI Report Signed Patient: Tenisha Hancock MR#: [id number] : 1975 Acct:[id number] Age/Sex: 47 / F ADM Date: 06/19/22 Loc: MR Room: Type: [facility] Attending Dr: Adam Vickers DO Copies to: Rizwan Vickers DO Ordering Provider: Rizwan Vickers DO Date of Service: 06/19/22 MR/MR cervical spine wo con: [id number] EXAMINATION: MRI OF THE CERVICAL SPINE WITHOUT CONTRAST CLINICAL DATA: Chronic neck and left arm numbness for multiple years. TECHNIQUE: Multiecho imaging was performed in the sagittal and axial plane without contrast administration. FINDINGS: Vertebral body heights appear maintained. No bone marrow edema is noted. No abnormal cord signal. Cervicomedullary junction appears normal. No paraspinal mass. C2-3: Normal. C3-4: Normal. C4-5: Disc osteophyte complex causing mild canal bilateral neural foraminal stenosis. C5-6: Disc osteophyte complex causing mild canal and bilateral neural foraminal stenosis. C6-7: Central disc osteophyte complex causing mild canal and bilateral neural foraminal stenosis. MR/MR cervical spine wo con IMPRESSION: DEGENERATIVE DISEASE C4-C7. Impression dictated by: Jamari Guzman Jr., D.O.06/19/2022 7:04 PM Dictation Location: [place] [address] Transcribed By: [facility] 06/19/221903 Dictated By: Jmaari Guzman Jr, DO 06/19/221857 Signed By: 06/19/221903 Normal [facility] Adrenocorticotropic Hormone PLon 06-17-[address] 8.2 pg/mL Normal 7.2-63.3 [facility] Comment on above: Result Comment: ACTH reference interval for samples collected between 7 and 10 AM. Performed at: [facility] [address] [id number] Detective And Intelligence Analyst: Red Sena PhD, Phone: [phone] PERFORMED BY: [place] [address] PATHOLOGIST ARTIFICIAL INSEMINATOR CHITO HENDRICKS M.D. Performed By: #### C MP, CBC #### [address] Albumin [Mass/volume] in Ser um or PlasmaOrdered By: Kallie Chang on 06-17-2022 Albumin [Mass/Vol] 3.6 g/dL 3.2-5.5 [facility] Basophils Auto (Bld) [#/Vol] Ordered By: Kallie Chang on 06-17-2022 Basophils (Bld) [#/Vol] 0.0 10*3/uL 0.0-0.2 [facility] Basophils/100 WBC Auto (Bld) Ordered By: Kallie Chang on 06-17-2022 Basophils/100 WBC (Bld) 0.7 % . [facility] Complete Blood Count Auto Di ffon 06-17-2022 Basophils (Bld) [#/Vol] 0.0 10*3/uL Normal 0.0-0.2 [facility] Comment on above: Result Comment: PERF ORMED BY: [place] [address] PATHOLOGIST ARTIFICIAL INSEMINATOR CHITO HENDRICKS M.D. Performed By: #### C MP, CBC #### [address] Basophils/100 WBC (Bld) 0.7 % Normal . [facility] Comment on above: Performed By: #### C MP, CBC #### [address] Eosinophils (Bld) [#/Vol] 0.1 10*3/uL Normal 0.0-0.45 [facility] Comment on above: Performed By: #### C MP, CBC #### [address] Eosinophils/100 WBC (Bld) 2.7 % Normal . [facility] Comment on above: Performed By: #### C MP, CBC #### [address] Erythrocyte distribution width (RBC) [Ratio] 13.2 % Normal 11.9-15.3 [facility] Comment on above: Performed By: #### C MP, CBC #### [address] Hematocrit (Bld) [Volume fraction] 32.8 % Low 34.0-46.4 [facility] Comment on above: Performed By: #### C MP, CBC #### [address] Hemoglobin (Bld) [Mass/Vol] 10.7 g/dL Low 11.8-15.4 [facility] Comment on above: Performed By: #### C MP, CBC #### [address] Lymphocytes (Bld) [#/Vol] 0.9 10*3/uL Low 1.00-4.8 [facility] Comment on above: Performed By: #### C MP, CBC #### [address] Lymphocytes/100 WBC (Bld) 17.2 % Normal . [facility] Comment on above: Performed By: #### C MP, CBC #### [address] MCH (RBC) [Entitic mass] 29.5 pg Normal 24.7-34.3 [facility] Comment on above: Performed By: #### C MP, CBC #### [address] MCV (RBC) [Entitic vol] 90.0 fL Normal 80-100 [facility] Comment on above: Performed By: #### C MP, CBC #### [address] Mean Corpuscular HGB Conc 32.8 g/dL Normal 32.0-35.0 [facility] Comment on above: Performed By: #### C MP, CBC #### [address] Monocytes (Bld) [#/Vol] 0.5 10*3/uL Normal 0.0-0.8 [facility] Comment on above: Performed By: #### C MP, CBC #### [address] Monocytes/100 WBC (Bld) 10.3 % Normal . [facility] Comment on above: Performed By: #### C MP, CBC #### [address] Neutrophils (Bld) [#/Vol] 3.5 10*3/uL Normal 1.8-7.7 [facility] Comment on above: Performed By: #### C MP, CBC #### [address] Neutrophils/100 WBC (Bld) 69.1 % Normal . [facility] Comment on above: Performed By: #### C MP, CBC #### [facility] [address] NRBC% 0.0 /100{WBC} Normal 0-0.5 [facility] Comment on above: Performed By: #### C MP, CBC #### [address] Platelet mean volume (Bld) [Entitic vol] 7.2 fL Normal 6.3-10.7 [facility] Comment on above: Performed By: #### C MP, CBC #### [address] Platelets (Bld) [#/Vol] 241 10*3/uL Normal 150-450 [facility] Comment on above: Performed By: #### C MP, CBC #### [address] RBC (Bld) [#/Vol] 3.64 10*6/uL Normal 3.60-5.00 [facility] Comment on above: Performed By: #### C MP, CBC #### [address] WBC (Bld) [#/Vol] 5.1 10*3/uL Normal 3.8-11.6 [facility] Comment on above: Performed By: #### C MP, CBC #### [address] Comprehensive Metabolic Pane arthur 06-17-2022 Albumin [Mass/Vol] 3.6 g/dL Normal 3.2-5.5 [facility] Comment on above: Performed By: #### C BC, CMP #### [address] [place] [address] [place] Albumin/Globulin [Mass ratio] 1.4 {ratio} Normal [facility] Comment on above: Performed By: #### C BC, CMP #### [address] ALP [Catalytic activity/Vol] 82 U/L Normal 32-92 [facility] Comment on above: Performed By: #### C BC, CMP #### [address] ALT [Catalytic activity/Vol] 34 U/L Normal 10-60 [facility] Comment on above: Performed By: #### C BC, CMP #### [address] Anion gap [Moles/Vol] 11.1 mmol/L Normal 6.0-15.0 [facility] Comment on above: Performed By: #### C BC, CMP #### [address] AST [Catalytic activity/Vol] 36 U/L Normal 10-42 [facility] Comment on above: Performed By: #### C BC, CMP #### [address] Bilirubin [Mass/Vol] 0.8 mg/dL Normal 0.3-1.2 [facility] Comment on above: Performed By: #### C BC, CMP #### [facility] [address] [place] [address] Calcium [Mass/Vol] 9.5 mg/dL Normal 8.2-10.2 [facility] Comment on above: Performed By: #### C BC, CMP #### [facility] [address] [place] [address] [place] Chloride [Moles/Vol] 101 mmol/L Normal 95-114 [facility] Comment on above: Performed By: #### C BC, CMP #### [address] CO2 [Moles/Vol] 24.5 mmol/L Normal 22.0-30.0 [facility] Comment on above: Performed By: #### C BC, CMP #### [facility] [address] Creatinine [Mass/Vol] 0.66 mg/dL Normal 0.44-1.03 [facility] Comment on above: Performed By: #### C BC, CMP #### [facility] [address] Creatinine Clr Calc Pharmacy 110.52 [facility] Comment on above: Result Comment: PERF ORMED BY: [facility] [address] [place] [address] PATHOLOGIST ARTIFICIAL INSEMINATOR CHITO HENDRICKS M.D. Performed By: #### C BC, CMP #### [facility] [address] Estimated GFR ( Janis > 60 [facility] Comment on above: Result Comment: GFR estimated reference range: According to KDOQI guidelines, <60 ml/min/1.73m2 is sufficient to diagnose a patient with chronic kidney disease. Performed By: #### C BC, CMP #### [facility] [address] Estimated GFR (Non- Am > 60 [facility] Comment on above: Performed By: #### C BC, CMP #### [facility] [address] Globulin (S) [Mass/Vol] 2.6 g/dL Normal [facility] Comment on above: Performed By: #### C BC, CMP #### [facility] [address] Glucose [Mass/Vol] 94 mg/dL Normal 70-100 [facility] Comment on above: Result Comment: [place] Glucose Reference Range is dependent on time and content of last meal. Glucose of more than 200 mg/dL in a nonstressed, ambulatory subject supports the diagnosis of Diabetes Mellitus. ADA recommended reference range Performed By: #### C BC, CMP #### [facility] [address] Potassium [Moles/Vol] 3.6 mmol/L Normal 3.5-5.1 [facility] Comment on above: Performed By: #### C BC, CMP #### [facility] [address] Protein [Mass/Vol] 6.2 g/dL Normal 6.1-7.9 [facility] Comment on above: Performed By: #### C BC, CMP #### [facility] [address] Sodium [Moles/Vol] 133 mmol/L Low 136-146 [facility] Comment on above: Performed By: #### C BC, CMP #### [facility] [address] Urea nitrogen [Mass/Vol] 7 mg/dL Low 9-23 [facility] Comment on above: Performed By: #### C BC, CMP #### [facility] [address] [place] [address] Cortisolon 06-17-2022 Cortisol 0.4 ug/dL Normal [facility] Comment on above: Result Comment: Refe rence range: AM 6 - 24 ug/dl PM <10 ug/dl PERFORMED BY: [place] [address] PATHOLOGIST ARTIFICIAL INSEMINATOR CHITO HENDRICKS M.D. Performed By: #### C MP, CBC #### [facility] [address] [place] [address] Creatinine and Glomerular fi ltration rate.predicted panel (S/P/Bld)Ordered By: Kallie Chang on 06-17-2022 Creatinine [Mass/Vol] 0.66 mg/dL 0.44-1.03 [facility] Eosinophils Auto (Bld) [#/Vo l]Ordered By: Kallie Chang on 06-17-2022 Eosinophils (Bld) [#/Vol] 0.1 10*3/uL 0.0-0.45 [facility] Eosinophils/100 WBC Auto (Bl d)Ordered By: Kallie Chang on 06-17-2022 Eosinophils/100 WBC (Bld) 2.7 % . [facility] Erythrocyte distribution wid th Auto (RBC) [Ratio]Ordered By: Kallie Chang on 06-17-2022 Erythrocyte distribution width (RBC) [Ratio] 13.2 % 11.9-15.3 [facility] Estimated glomerular filtrat ion rate (GFR) non- AmericanOrdered By: Kallie Chang on 06-17-2022 GFR/1.73 sq M.predicted among non-blacks MDRD (S/P/Bld) [Vol rate/Area] > 60 mL/Min [facility] Free T4 (Free Thyroxine)on 08-17-2021 Free T4 [Mass/Vol] 0.43 ng/dL Low 0.61-1.12 [facility] Comment on above: Performed By: #### C MP, CBC #### [facility] [address] Globulin Calc (S) [Mass/Vol] Ordered By: Kallie Chang on 06-17-2022 Globulin (S) [Mass/Vol] 2.6 g/dL [facility] Hematocrit Auto (Bld) [Volum e fraction]Ordered By: Kallie Chang on 06-17-2022 Hematocrit (Bld) [Volume fraction] 32.8 % 34.0-46.4 [facility] Hemoglobin [Mass/volume] in BloodOrdered By: Kallie Chang on 06-17-2022 Hemoglobin (Bld) [Mass/Vol] 10.7 g/dL 11.8-15.4 [facility] Leukocytes [#/volume] correc annie for nucleated erythrocytes in Blood by Automated counOrdered By: Kallie Chang on 06-17-2022 WBC corrected for nucl RBC Auto (Bld) [#/Vol] 5.1 10*3/uL 3.8-11.6 [facility] Lymphocytes Auto (Bld) [#/Vo l]Ordered By: Kallie Chang on 06-17-2022 Lymphocytes (Bld) [#/Vol] 0.9 10*3/uL 1.00-4.8 [facility] Lymphocytes/100 WBC Auto (Bl d)Ordered By: Kallie Chang on 06-17-2022 Lymphocytes/100 WBC (Bld) 17.2 % . [facility] MCH Auto (RBC) [Entitic mass ]Ordered By: Kallie Chang on 06-17-2022 MCH (RBC) [Entitic mass] 29.5 pg 24.7-34.3 [facility] MCHC Auto (RBC) [Mass/Vol]Or dered By: Kallie Chang on 06-17-2022 MCHC (RBC) [Mass/Vol] 32.8 g/dL 32.0-35.0 Fir [facility] MCV Auto (RBC) [Entitic vol] Ordered By: Kallie Chang on 06-17-2022 MCV (RBC) [Entitic vol] 90.0 fL 80-100 [facility] Monocytes Auto (Bld) [#/Vol] Ordered By: Kallie Chang on 06-17-2022 Monocytes (Bld) [#/Vol] 0.5 10*3/uL 0.0-0.8 [facility] Monocytes/100 WBC Auto (Bld) Ordered By: Kallie Chang on 06-17-2022 Monocytes/100 WBC (Bld) 10.3 % . [facility] Neutrophils Auto (Bld) [#/Vo l]Ordered By: Kallie Chang on 06-17-2022 Neutrophils (Bld) [#/Vol] 3.5 10*3/uL 1.8-7.7 [facility] Neutrophils/100 WBC Auto (Bl d)Ordered By: Kallie Chang on 06-17-2022 Neutrophils/100 WBC (Bld) 69.1 % . [facility] No Panel InformationOrdered By: Kallie Chang on 06-17-2022 Adrenocorticotropic Hormone 8.2 pg/mL 7.2-63.3 [facility] Comment on above: ACTH reference inter ervin for samples collected between 7 and10 AM.Performed at: [facility] [id number] Director: Red Sena PhD, Phone: [phone] Estimated GFR () > 60 mL/Min [facility] Comment on above: GFR estimated refere nce range: According to KDOQI guidelines, <60 ml/min/1.73m2 is sufficient to diagnose a patient with chronic kidney disease. Pharmacy Creatinine Clearance (Chem 110.52 [facility] Nucleated erythrocytes [Pres ence] in Blood by Automated countOrdered By: Kallie Chang on 06-17-2022 Nucleated RBC Auto Ql (Bld) 0.0 /100{WBC} 0-0.5 [facility] Platelet mean volume Auto (B ld) [Entitic vol]Ordered By: Kallie Chang on 06-17-2022 Platelet mean volume (Bld) [Entitic vol] 7.2 fL 6.3-10.7 [facility] Platelets Auto (Bld) [#/Vol] Ordered By: Kallie Chang on 06-17-2022 Platelets (Bld) [#/Vol] 241 10*3/uL 150-450 [facility] Protein [Mass/volume] in Ser um or PlasmaOrdered By: Kallie Chang on 06-17-2022 Protein [Mass/Vol] 6.2 g/dL 6.1-7.9 [facility] RBC Auto (Bld) [#/Vol]Ordere d By: Kallie Chang on 06-17-2022 RBC (Bld) [#/Vol] 3.64 10*6/uL 3.60-5.00 [facility] Random cortisol measurementO rdered By: Kallie Chang on 06-17-2022 Cortisol [Mass/Vol] 0.4 ug/dL [facility] Comment on above: Reference range: AM 6 - 24 ug/dl PM <10 ug/dl Serum or plasma alanine napoles otransferase measurement without P-5'-P (enzymatic activiOrdered By: Kallie Chang on 06-17-2022 ALT No additional P-5'-P [Catalytic activity/Vol] 34 U/L 10-60 [facility] Serum or plasma albumin/glob ulin mass ratioOrdered By: Kallie Chang on 06-17-2022 Albumin/Globulin [Mass ratio] 1.4 {ratio} [facility] Serum or plasma alkaline zo sphatase measurement (enzymatic activity/volume)Ordered By: Kallie Chang on 06-17-2022 ALP [Catalytic activity/Vol] 82 U/L 32-92 [facility] Serum or plasma anion gap de terminationOrdered By: Kallie Chang on 06-17-2022 Anion gap [Moles/Vol] 11.1 mmol/L 6.0-15.0 [facility] Serum or plasma aspartate am inotransferase measurement (enzymatic activity/volume)Ordered By: Kallie Chang on 06-17-2022 AST [Catalytic activity/Vol] 36 U/L 10-42 [facility] Serum or plasma calcium daiana urement (mass/volume)Ordered By: Kallie Chang on 06-17-2022 Calcium [Mass/Vol] 9.5 mg/dL 8.2-10.2 [facility] Serum or plasma chloride lizett surement (moles/volume)Ordered By: Kallie Chang on 06-17-2022 Chloride [Moles/Vol] 101 mmol/L 95-114 [facility] Serum or plasma glucose daiana urement (mass/volume)Ordered By: Kallie Chang on 06-17-2022 Glucose [Mass/Vol] 94 mg/dL 70-100 [facility] Comment on above: ADA recommended refe rence rangeRandom Glucose Reference Range is dependent on time and content of last meal. Glucose of more than 200 mg/dL in a nonstressed, ambulatory subject supports the diagnosis of Diabetes Mellitus. Serum or plasma potassium me asurement (moles/volume)Ordered By: Kallie Chang on 06-17-2022 Potassium [Moles/Vol] 3.6 mmol/L 3.5-5.1 [facility] Serum or plasma sodium measu rement (moles/volume)Ordered By: Kallie Chang on 06-17-2022 Sodium [Moles/Vol] 133 mmol/L 136-146 [facility] Serum or plasma total biliru bin measurement (mass/volume)Ordered By: Kallie Chang on 06-17-2022 Bilirubin [Mass/Vol] 0.8 mg/dL 0.3-1.2 [facility] Serum or plasma total carbon dioxide measurement (moles/volume)Ordered By: Kallie Chang on 06-17-2022 CO2 [Moles/Vol] 24.5 mmol/L 22.0-30.0 [facility] Serum or plasma urea nitroge n measurement (mass/volume)Ordered By: Kallie Chang on 06-17-2022 Urea nitrogen [Mass/Vol] 7 mg/dL 9-23 [facility] TSH DL <= 0.005 mIU/L QnOrde red By: Kallie Chang on 06-17-2022 TSH Qn 2.66 m[IU]/L 0.45-5.33 [facility] Thyroid Stimulating Hormoneo n 06-17-2022 TSH Qn 2.66 m[IU]/L Normal 0.45-5.33 [facility] Comment on above: Performed By: #### C MP, CBC #### [facility] [address] [place] [address] Thyroxine (T4) free [Mass/vo lume] in Serum or PlasmaOrdered By: Kallie Bernardo on 06-17-2022 Free T4 [Mass/Vol] 0.43 ng/dL 0.61-1.12 [facility] WBC Auto (Bld) [#/Vol]Ordere d By: Kallie Bernardo on 06-17-2022 WBC (Bld) [#/Vol] 5.1 10*3/uL 3.8-11.6 [facility] Adrenocorticotropic Hormone PLon 05-27-[address] 14.9 pg/mL Normal 7.2-63.3 [facility] Comment on above: Result Comment: ACTH reference interval for samples collected between 7 and 10 AM. Performed at: [facility] [address] [id number] Detective And Intelligence Analyst: Red Sena PhD, Phone: [phone] PERFORMED BY: [address] [place] [address] PATHOLOGIST ARTIFICIAL INSEMINATOR CHITO HENDRICKS M.D. Performed By: #### C BC, CMP #### [facility] [address] [place], [place] [id number] [facility] Complete Blood Count Auto Di ffon 05-27-2022 Basophils (Bld) [#/Vol] 0.0 10*3/uL Normal 0.0-0.2 [facility] Comment on above: Result Comment: PERF ORMED BY: [address] [place] [address] PATHOLOGIST ARTIFICIAL INSEMINATOR CHITO HENDRICKS M.D. Performed By: #### C MP, CBC #### [facility] [address] [place] [address] [place] Basophils/100 WBC (Bld) 0.6 % Normal . [facility] Comment on above: Performed By: #### C MP, CBC #### [facility] [address] [place] [address] [place] Eosinophils (Bld) [#/Vol] 0.3 10*3/uL Normal 0.0-0.45 [facility] Comment on above: Performed By: #### C MP, CBC #### [facility] [address] [place] [address] [place] Eosinophils/100 WBC (Bld) 5.8 % Normal . [facility] Comment on above: Performed By: #### C MP, CBC #### [address] Erythrocyte distribution width (RBC) [Ratio] 13.3 % Normal 11.9-15.3 [facility] Comment on above: Performed By: #### C MP, CBC #### [facility] [address] [place] [address] [place] Hematocrit (Bld) [Volume fraction] 31.2 % Low 34.0-46.4 [facility] Comment on above: Performed By: #### C MP, CBC #### [facility] [address] [place] [address] [place] Hemoglobin (Bld) [Mass/Vol] 10.5 g/dL Low 11.8-15.4 [facility] Comment on above: Performed By: #### C MP, CBC #### [facility] [address] [place] [address] [place] Lymphocytes (Bld) [#/Vol] 1.0 10*3/uL Normal 1.00-4.8 [facility] Comment on above: Performed By: #### C MP, CBC #### [facility] [address] [place] [address] [place] Lymphocytes/100 WBC (Bld) 19.1 % Normal . [facility] Comment on above: Performed By: #### C MP, CBC #### [facility] [address] MCH (RBC) [Entitic mass] 30.4 pg Normal 24.7-34.3 [facility] Comment on above: Performed By: #### C MP, CBC #### [facility] [address] MCV (RBC) [Entitic vol] 90.1 fL Normal 80-100 [facility] Comment on above: Performed By: #### C MP, CBC #### [facility] [address] Mean Corpuscular HGB Conc 33.7 g/dL Normal 32.0-35.0 [facility] Comment on above: Performed By: #### C MP, CBC #### [facility] [address] Monocytes (Bld) [#/Vol] 0.4 10*3/uL Normal 0.0-0.8 [facility] Comment on above: Performed By: #### C MP, CBC #### [facility] [address] [place] [address] [place] Monocytes/100 WBC (Bld) 8.4 % Normal . [facility] Comment on above: Performed By: #### C MP, CBC #### [facility] [address] [place] [address] [place] Neutrophils (Bld) [#/Vol] 3.5 10*3/uL Normal 1.8-7.7 [facility] Comment on above: Performed By: #### C MP, CBC #### [facility] [address] [place] [address] [place] Neutrophils/100 WBC (Bld) 66.1 % Normal . [facility] Comment on above: Performed By: #### C MP, CBC #### [facility] [address] [place] [address] [place] Nucleated RBC/100 WBC (Bld) [Ratio] 0.1 % Normal 0-0.5 [facility] Comment on above: Performed By: #### C MP, CBC #### [facility] [address] Platelet mean volume (Bld) [Entitic vol] 7.4 fL Normal 6.3-10.7 [facility] Comment on above: Performed By: #### C MP, CBC #### [address] Platelets (Bld) [#/Vol] 278 10*3/uL Normal 150-450 [facility] Comment on above: Performed By: #### C MP, CBC #### [address] RBC (Bld) [#/Vol] 3.46 10*6/uL Low 3.60-5.00 [facility] Comment on above: Performed By: #### C MP, CBC #### [address] WBC (Bld) [#/Vol] 5.2 10*3/uL Normal 4.5-11.0 [facility] Comment on above: Performed By: #### C MP, CBC #### [address] Comprehensive Metabolic Pane arthur 05-27-2022 Albumin [Mass/Vol] 3.2 g/dL Normal 3.2-5.5 [facility] Comment on above: Performed By: #### C MP, CBC #### [address] Albumin/Globulin [Mass ratio] 1.3 {ratio} Normal [facility] Comment on above: Performed By: #### C MP, CBC #### [address] ALP [Catalytic activity/Vol] 56 U/L Normal 32-92 [facility] Comment on above: Performed By: #### C MP, CBC #### [address] ALT [Catalytic activity/Vol] 28 U/L Normal 10-60 [facility] Comment on above: Performed By: #### C MP, CBC #### [facility] [address] [place] [id number] [facility] Anion gap [Moles/Vol] 9.8 mmol/L Normal 6.0-15.0 [facility] Comment on above: Performed By: #### C MP, CBC #### [facility] [address] [place] [id number] [facility] AST [Catalytic activity/Vol] 31 U/L Normal 10-42 [facility] Comment on above: Performed By: #### C MP, CBC #### [facility] [address] Bilirubin [Mass/Vol] 0.5 mg/dL Normal 0.3-1.2 [facility] Comment on above: Performed By: #### C MP, CBC #### [facility] [address] Calcium [Mass/Vol] 9.3 mg/dL Normal 8.2-10.2 [facility] Comment on above: Performed By: #### C MP, CBC #### [facility] [address] [place] [address] [place] Chloride [Moles/Vol] 102 mmol/L Normal 95-114 [facility] Comment on above: Performed By: #### C MP, CBC #### [facility] [address] [place] [address] [place] CO2 [Moles/Vol] 26.7 mmol/L Normal 22.0-30.0 [facility] Comment on above: Performed By: #### C MP, CBC #### [facility] [address] [place] [address] [place] Creatinine [Mass/Vol] 0.69 mg/dL Normal 0.44-1.03 [facility] Comment on above: Performed By: #### C MP, CBC #### [facility] [address] [place] [address] [place] Creatinine Clr Calc Pharmacy 109.79 Normal [facility] Comment on above: Result Comment: PERF ORMED BY: [place] [address] PATHOLOGIST ARTIFICIAL INSEMINATOR CHITO HENDRICKS M.D. Performed By: #### C MP, CBC #### [address] Estimated GFR ( Janis > 60 [facility] Comment on above: Result Comment: GFR estimated reference range: According to KDOQI guidelines, <60 ml/min/1.73m2 is sufficient to diagnose a patient with chronic kidney disease. Performed By: #### C MP, CBC #### [address] Estimated GFR (Non- Am > 60 [facility] Comment on above: Performed By: #### C MP, CBC #### [address] Globulin (S) [Mass/Vol] 2.5 g/dL Normal [facility] Comment on above: Performed By: #### C MP, CBC #### [address] Glucose [Mass/Vol] 113 mg/dL High 70-100 [facility] Comment on above: Result Comment: [place] Glucose Reference Range is dependent on time and content of last meal. Glucose of more than 200 mg/dL in a nonstressed, ambulatory subject supports the diagnosis of Diabetes Mellitus. ADA recommended reference range Performed By: #### C MP, CBC #### [address] Potassium [Moles/Vol] 3.5 mmol/L Normal 3.5-5.1 [facility] Comment on above: Performed By: #### C MP, CBC #### [address] Protein [Mass/Vol] 5.7 g/dL Low 6.1-7.9 [facility] Comment on above: Performed By: #### C MP, CBC #### [address] Sodium [Moles/Vol] 135 mmol/L Low 136-146 [facility] Comment on above: Performed By: #### C MP, CBC #### [address] Urea nitrogen [Mass/Vol] 9 mg/dL Normal 9-23 [facility] Comment on above: Performed By: #### C MP, CBC #### [address] Cortisolon 05-27-2022 Cortisol 0.8 ug/dL Normal [facility] Comment on above: Result Comment: Refe rence range: AM 6 - 24 ug/dl PM <10 ug/dl PERFORMED BY: [place] [address] PATHOLOGIST ARTIFICIAL INSEMINATOR CHITO HENDRICKS M.D. Performed By: #### C BC, CMP #### [address] Free T4 (Free Thyroxine)on 07-27-2021 Free T4 [Mass/Vol] 0.46 ng/dL Low 0.61-1.12 [facility] Comment on above: Performed By: #### C BC, CMP #### [address] Laboratory - Hematology and Cell countsOrdered By: Kallie Chang on 05-27-2022 Nucleated RBC/100 WBC (Bld) [Ratio] 0.1 % 0-0.5 [facility] No Panel InformationOrdered By: Kallie Chang on 05-27-2022 Adrenocorticotropic Hormone 14.9 pg/mL 7.2-63.3 [facility] Comment on above: ACTH reference inter ervin for samples collected between 7 and10 AM.Performed at: - [facility] [id number] Director: Red Sena PhD, Phone: [phone] Thyroid Stimulating Hormoneo n 05-27-2022 TSH Qn 1.89 m[IU]/L Normal 0.45-5.33 [facility] Comment on above: Performed By: #### C BC, CMP #### [address] HCG ( test) IA.rapi d Ql (U)Ordered By: Stacie Thomas on 04-16-2022 HCG ( test) Ql (U) Negative [facility] PAP ACOG PANEL 2: 30 to 65on 04-16-2022 . . Normal [facility] Comment on above: Result Comment: Perf ormed at: WB Performed By: #### [id number] #### [facility] [address] [place] [address] [address] Lilly Varner Age Gdln ACOG Testing - Normal [facility] Comment on above: Performed By: #### [id number] #### [facility] [address] [place] [address] [address] Lilly Varner DIAGNOSIS: Comment [facility] Comment on above: Result Comment: NEGA TIVE FOR INTRAEPITHELIAL LESION OR MALIGNANCY. THIS SPECIMEN WAS RESCREENED PART OF OUR MEDICAL ONCOLOGY PHYSICIAN PROGRAM. Performed at: WB Performed By: #### [id number] #### [facility] [address] [place] [address] [address] Lilly Varner HPV Aptima Positive Abnormal Negative [facility] Comment on above: Result Comment: This nucleic acid amplification test detects fourteen high-risk HPV types (16,18,31,33,35,39,45,51,52,56,58,59,66,68) without differentiation. Performed at: =G Performed By: #### [id number] #### [facility] [address] [place] [address] [address] Lilly Varner HPV Genotype 16 Negative Normal Negative [facility] Comment on above: Result Comment: Perf ormed at: =G Performed By: #### [id number] #### [facility] [address] [place] [address] [address] Lilly Varner HPV Genotype 18,45 Positive Abnormal Negative [facility] Comment on above: Result Comment: Perf ormed at: =G Performed By: #### [id number] #### [facility] [address] [place] [address] [address] Lilly Varner Methodology: Comment Normal [facility] Comment on above: Result Comment: This liquid based ThinPrep(R) pap test was screened with the use of an image guided system. Performed at: WB Performed By: #### [id number] #### [facility] [address] [place] [address] Dr. Lilly Varner Note: Comment Normal [facility] Comment on above: Result Comment: The Pap smear is a screening test designed to aid in the detection of premalignant and malignant conditions of the uterine cervix. It is not a diagnostic procedure and should not be used as the sole means of detecting cervical cancer. Both false-positive and false-negative reports do occur. . Performed at: WB Performed By: #### [id number] #### [facility] [address] [place] [address] Dr. Lilly Varner Performed by: Comment Normal [facility] Comment on above: Result Comment: Nickie Ford, Paper Hanger (ASCP) Performed at: WB Performed By: #### [id number] #### [facility] [address] [place] [address] Dr. Lilly Varner QC reviewed by: Comment Normal [facility] Comment on above: Result Comment: Dequan Plaza, Supervisory Paper Hanger (ASCP) Performed at: WB Performed By: #### [id number] #### [facility] [address] [place] [address] Dr. Lilly Varner Specimen adequacy: Comment Normal [facility] Comment on above: Result Comment: Sati sfactory for evaluation. Endocervical and/or squamous metaplastic cells (endocervical component) are present. Performed at: WB Performed By: #### [id number] #### [facility] [address] [place] [address] Dr. Lilly Varner XR DEXA BONE DENSITYon 04-14 XR DEXA BONE DENSITY EXAMINATION: XR DEX A BONE DENSITY, 04/14/2022 1:34 PM EDT HISTORY: Personal history of antineoplastic chemotherapy COMPARISON: None. TECHNIQUE: Dual-energy X-ray absorptiometry (DEXA) bone density study performed for the axial skeleton. FINDINGS: Bone mineral density AP spine L1-L4 measures 1.355 g/sq cm. T score -1.5. WHO classification: Normal Bone mineral density lowest in the rectum trochanter measuring 0.875 g/sq cm. T score 0.2. WHO classification: Normal IMPRESSION: Normal bone mineral density. Low fracture risk Electronically authenticated by: KRISTA ROBERTSON Date: 2022-04-14 17:25 Normal [facility] VIT D 25-OH LABCORPon 2021 Vitamin D, 25-Hydroxy 19.5 ng/mL Critically low 30.0-100.0 [facility] Comment on above: Result Comment: [place] min D deficiency has been defined by the [place] of [employer] and an Endocrine Society practice guideline as a level of serum 25-OH vitamin D less than 20 ng/mL (1,2). The Endocrine Society went on to further define vitamin D insufficiency as a level between 21 and 29 ng/mL (2). 1. IOM ([place] [employer]). 2010. Dietary reference intakes for calcium and D. [place]: The National Academies Press. 2. Lorena MF, Art [place], Eleazar SPENCE, et al. Evaluation, treatment, and prevention of vitamin D deficiency: an Endocrine Society clinical practice guideline. JCEM. 2010; 96(7):1911-30. Performed By: #### V ITADLC #### [facility] [address] [place] [address] Dr. Lilly Varner CBC AUTO DIFFon 2022 BASO # 0.0 103/ul Normal 0.0-0.1 [facility] Comment on above: Performed By: #### C BC #### [facility] [address] [place] [address] Dr. Lilly Varner Basophils/100 WBC (Bld) 0.5 % Normal 0.2-2.0 [facility] Comment on above: Performed By: #### C BC #### [facility] [address] [place] [address] Dr. Lilly Varner EO # 0.5 103/ul Normal 0.0-0.7 [facility] Comment on above: Performed By: #### C BC #### [facility] [address] [place] [address] Dr. Lilly Varner Eosinophils/100 WBC (Bld) 6.4 % Normal 0.9-7.0 [facility] Comment on above: Performed By: #### C BC #### [facility] [address] [place] [address] Dr. Lilly Varner Erythrocyte distribution width (RBC) [Ratio] 13.0 % Normal 11.0-15.0 [facility] Comment on above: Performed By: #### C BC #### [facility] [address] [place] [address] Dr. Lilly Varner Hematocrit (Bld) [Volume fraction] 40.1 % Normal 36.0-48.0 [facility] Comment on above: Performed By: #### C BC #### [facility] [address] [place] [address] Dr. Lilly Varner Hemoglobin (Bld) [Mass/Vol] 12.7 g/dL Normal 12.0-16.0 [facility] Comment on above: Performed By: #### C BC #### [facility] [address] [place] [address] Dr. Lilly Varner IG # 0.04 10e3/ul Critically high 0.00-0.03 [facility] Comment on above: Performed By: #### C BC #### [facility] [address] [place] [address] Dr. Lilly Varner IG % 0.5 % Normal 0.0-0.5 [facility] Comment on above: Performed By: #### C BC #### [facility] [address] [place] [address] Dr. Lilly Varner LYMPH # 2.0 103/ul Normal 1.2-3.8 [facility] Comment on above: Performed By: #### C BC #### [facility] [address] [place] [address] Dr. Lilly Varner Lymphocytes/100 WBC (Bld) 24.3 % Normal 20.5-60.0 [facility] Comment on above: Performed By: #### C BC #### [facility] [address] [place] [address] Dr. Lilly Varner MANUAL DIFF REQ NO Normal [facility] Comment on above: Performed By: #### C BC #### [facility] [address] [place] [address] [address] Lilly Varner MCH (RBC) [Entitic mass] 30.3 pg Normal 26.7-34.0 [facility] Comment on above: Performed By: #### C BC #### [facility] [address] [place] [address] [address] Lilly Varner MCHC (RBC) [Mass/Vol] 31.7 g/dL Normal 29.9-35.2 [facility] Comment on above: Performed By: #### C BC #### [facility] [address] [place] [address] Dr. Lilly Varner MCV (RBC) [Entitic vol] 95.7 fL Normal 81.0-99.0 [facility] Comment on above: Performed By: #### C BC #### [facility] [address] [place] [address] Dr. Lilly Varner MONO # 0.5 103/ul Normal 0.3-0.8 [facility] Comment on above: Performed By: #### C BC #### [facility] [address] [place] [address] Dr. Lilly Varner Monocytes/100 WBC (Bld) 5.7 % Normal 1.7-12.0 [facility] Comment on above: Performed By: #### C BC #### [facility] [address] [place] [address] Dr. Lilly Varner NEUT # 5.1 103/ul Normal 1.4-6.5 [facility] Comment on above: Performed By: #### C BC #### [facility] [address] [place] [address] Dr. Lilly Varner Neutrophils/100 WBC (Bld) 62.6 % Normal 43.0-75.0 [facility] Comment on above: Performed By: #### C BC #### [facility] [address] [place] [address] Dr. Lilly Varner Platelet mean volume (Bld) [Entitic vol] 8.6 fL Critically low 9.5-13.5 [facility] Comment on above: Performed By: #### C BC #### [facility] [address] [place] [address] [address] Lilly Varner PLT 279 103/ul Normal 150-450 [facility] Comment on above: Performed By: #### C BC #### [facility] [address] [place] [address] [address] Lilly Varner RBC 4.19 106/ul Critically low 4.20-5.40 [facility] Comment on above: Performed By: #### C BC #### [facility] [address] [place] [address] [address] Lilly Varner WBC 8.2 103/ul Normal 4.0-11.0 [facility] Comment on above: Performed By: #### C BC #### [facility] [address] [place] [address] [address] Lilly Varner GLYCOHEMOGLOBIN A1Con 2021 ADA RECOMMENDATION SEE BELOW Normal [facility] Comment on above: Result Comment: ADA RECOMMENDED LIMIT 4.0 - 6.0 ADA THERAPEUTIC TARGET < 7.0 ACTION SUGGESTED > 7.0 Performed By: #### A 1C ####[facility] [id number] [place] [address]Dr. Lilly Varner Glucose [Mass/Vol] 128 mg/dL Normal [facility] Comment on above: Performed By: #### A 1C ####[facility] [id number] [place] [id number]. Lilly Varner HbA1c (Bld) [Mass fraction] 6.1 % Normal 4.5-6.2 [facility] Comment on above: Performed By: #### A 1C ####[facility] [id number] [place] [address]Dr. Lilly Varner LIPID PROFILEon 2022 CHOL-HDL RATIO NORM SEE BELOW Normal [facility] Comment on above: Result Comment: 3.3 - 4.4 LOW RISK 4.4 - 7.1 AVERAGE RISK 7.1 - 11.0 MODERATE RISK >11.0 HIGH RISK Performed By: #### C MP, TSH, LIPID #### [facility] [address] [address] [address] Lilly Varner Cholesterol [Mass/Vol] 291 mg/dL Critically high <=200 [facility] Comment on above: Performed By: #### C MP, TSH, LIPID #### [facility] [address] [address] [address] Lilly Varner Cholesterol in HDL [Mass/Vol] 60 mg/dL Normal 40-60 [facility] Comment on above: Performed By: #### C MP, TSH, LIPID #### [facility] [address] [address] [address] Lilly Varner Cholesterol in LDL [Mass/Vol] 209.6 mg/dL Normal [facility] Comment on above: Performed By: #### C MP, TSH, LIPID #### [facility] [address] [address] [address] Lilly Varner Cholesterol.total/Cholest caro in HDL [Mass ratio] 4.9 {ratio} Normal [facility] Comment on above: Performed By: #### C MP, TSH, LIPID #### [facility] [address] [address] [address] Lilly Varner HDL NORMAL > or = 60 mg/dl - LO W CARDIOVASCULAR RISK <40 mg/dl - HIGH CARDIOVASCULAR RISK Normal [facility] Comment on above: Performed By: #### C MP, TSH, LIPID #### [facility] [address] [address] [address] Lilly Varner LDL CALC NORMAL SEE BELOW Normal [facility] Comment on above: Result Comment: <100 mg/dl OPTIMAL 100 - 129 mg/dl NEAR OR ABOVE OPTIMAL 130 - 159 mg/dl BORDERLINE HIGH 160 - 189 mg/dl HIGH >190 mg/dl VERY HIGH Performed By: #### C MP, TSH, LIPID #### [facility] [address] [address] [address] Lilly Varner Triglyceride [Mass/Vol] 107 mg/dL Normal <=150 [facility] Comment on above: Performed By: #### C MP, TSH, LIPID #### [facility] [address] [address] [address] Lilly Varner VLDL CALC 21.4 mg/dL Normal [facility] Comment on above: Performed By: #### C MP, TSH, LIPID #### [facility] [address] [address] [address] Lilly Varner PROF 14(COMP METB)on 022 Albumin [Mass/Vol] 3.9 g/dL Normal 3.4-5.0 [facility] Comment on above: Performed By: #### C MP, TSH, LIPID #### [facility] [address] [address] [address] Lilly Varner Albumin/Globulin [Mass ratio] 1.1 {ratio} Normal [facility] Comment on above: Performed By: #### C MP, TSH, LIPID #### [facility] [address] [address] [address] Lilly Varner ALP [Catalytic activity/Vol] 103 U/L Normal 46-116 [facility] Comment on above: Performed By: #### C MP, TSH, LIPID #### [facility] [address] [place] [address] Dr. Lilly Varner ALT [Catalytic activity/Vol] 44 U/L Normal 14-59 [facility] Comment on above: Performed By: #### C MP, TSH, LIPID #### [facility] [address] [address] [address] Lilly Varner Anion gap [Moles/Vol] 12.7 mmol/L Normal [facility] Comment on above: Performed By: #### C MP, TSH, LIPID #### [facility] [address] [address] [address] Lilly Varner AST [Catalytic activity/Vol] 24 U/L Normal 15-37 [facility] Comment on above: Performed By: #### C MP, TSH, LIPID #### [facility] [address] [address] [address] Lilly Varner Bilirubin [Mass/Vol] 0.4 mg/dL Normal 0.2-1.0 [facility] Comment on above: Performed By: #### C MP, TSH, LIPID #### [facility] [address] [address] [address] Lilly Varner Calcium [Mass/Vol] 9.1 mg/dL Normal 8.5-10.1 [facility] Comment on above: Performed By: #### C MP, TSH, LIPID #### [facility] [address] [address] [address] Lilly Varner Chloride [Moles/Vol] 104 mmol/L Normal 98-107 [facility] Comment on above: Performed By: #### C MP, TSH, LIPID #### [facility] [address] [address] [address] Lilly Varner CO2 [Moles/Vol] 28.4 mmol/L Normal 21.0-32.0 [facility] Comment on above: Performed By: #### C MP, TSH, LIPID #### [facility] [address] [place] [address] Dr. Lilly Varner Creatinine [Mass/Vol] 0.75 mg/dL Normal 0.55-1.02 [facility] Comment on above: Performed By: #### C MP, TSH, LIPID #### [facility] [address] [place] [address] Dr. Lilly Varner EGFR-AF WALLISIAN >60 Normal >=60 [facility] Comment on above: Performed By: #### C MP, TSH, LIPID #### [facility] [address] [place] [address] Dr. Lilly Varner EGFR-NON AF WALLISIAN >60 Normal >=60 [facility] Comment on above: Performed By: #### C MP, TSH, LIPID #### [facility] Laboratory [address] [place] [address] Dr. Lilly Varner Globulin (S) [Mass/Vol] 3.7 g/dL Normal [facility] Comment on above: Performed By: #### C MP, TSH, LIPID #### [facility] Laboratory [address] [place] [address] Dr. Lilly Varner Glucose [Mass/Vol] 98 mg/dL Normal 74-106 [facility] Comment on above: Performed By: #### C MP, TSH, LIPID #### [facility] Laboratory [address] [place] [address] Dr. Lilly Varner Potassium [Moles/Vol] 4.1 mmol/L Normal 3.5-5.1 [facility] Comment on above: Performed By: #### C MP, TSH, LIPID #### [facility] Laboratory [address] [place] [address] Dr. Lilly Varner Protein [Mass/Vol] 7.6 g/dL Normal 6.4-8.2 [facility] Comment on above: Performed By: #### C MP, TSH, LIPID #### [facility] Laboratory [address] [place] [address] Dr. Lilly Varner Sodium [Moles/Vol] 141 mmol/L Normal 136-145 [facility] Comment on above: Performed By: #### C MP, TSH, LIPID #### [facility] Laboratory [address] [place] [address] Dr. Lilly Varner Urea nitrogen [Mass/Vol] 16.0 mg/dL Normal 7.0-18.0 [facility] Comment on above: Performed By: #### C MP, TSH, LIPID #### [facility] Laboratory [address] [place] [address] Dr. Lilly Varner Urea nitrogen/Creatinine [Mass ratio] 21.3 mg/mg Normal [facility] Comment on above: Performed By: #### C MP, TSH, LIPID #### [facility] Laboratory [address] [place] [address] Dr. Lilly Varner TSHon 2022 TSH 1.280 uIU/mL Normal 0.358-3.74 0 [facility] Comment on above: Performed By: #### C MP, TSH, LIPID #### [facility] Laboratory [address] [place] [address] Dr. Lilly Varner [facility] SARS-CoV-2 (COVID-19) RNA SHILPI+probe Ql (Unsp spec) Detected Critically abnormal NOT DETECTED [facility] Comment on above: Result Comment: This test is not yet approved or cleared by the [place] FDA. When there are no FDA-approved or cleared tests available, and other criteria are met, FDA can make tests available under an emergency access mechanism called an Emergency Use Authorization (EUA). The EUA for this test is supported by the [place] of Health and Human Service's declaration that circumstances exist to justify the emergency use of in vitro diagnostics for the detection and/or diagnosis of the virus that causes COVID-19. This EUA will remain in effect for the duration of the COVID-19 declaration justifying emergency of IVDs, unless it is terminated or revoked by the FDA (after which the test may no longer be used). Performed By: #### C [facility] #### [facility] Laboratory [address] [place] [address] Dr. 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 SEE COMMENT. -- Diagnosis Comment -- By report HER2 IHC is negative (1+). Krista Coto M.D. Electronically Signed Out magda02/19/2022 Clinical Information Operative Findings: RIGHT BREAST 6:00 MASS AND CALCIFICATIONS Operation Performed: US GUIDED CORE BIOPSY OF BREAST Source of Specimen A: OUTSIDE SLIDES Gross Description Received from [facility] Department of Pathology are 6 slides labelled, [id number], TENISHA HANCOCK, for consultation at the request of Dr. Diana Murguia. tm Microscopic Description Microscopic examination performed. Diagnosis of malignancy confirmed by Dr. Bruner. PROCEDURE: Ultrasound-guided biopsy. SPECIMEN LATERALITY / TUMOR SITE: Right/6:00. HISTOLOGIC TYPE OF INVASIVE CARCINOMA: Invasive carcinoma of no special type (ductal). LONGEST FOCUS INVASIVE COMPONENT IN ANY CORE: 10.0 mm. HISTOLOGIC GRADE (ELLIOTT) - GLANDULAR/TUBULAR DIFFERENTIATION SCORE: 3. - NUCLEAR PLEOMORPHISM SCORE: 3. - MITOTIC RATE SCORE: 3. - OVERALL GRADE (FROM E[place]IOTT TOTAL SCORE): Grade 3 (poorly differentiated). DCIS PRESENT / ARCHITECTURAL PATTERN: Not identified. DCIS NUCLEAR GRADE: N/A. DCIS NECROSIS: N/A. MICROCALCIFICATIONS: Not identified. LYMPHOVASCULAR INVASION: Not identified. BIOMARKER TESTING BREAST CARCINOMA ESTROGEN RECEPTOR*-- -NEGATIVE (<1% OF POSITIVE TUMOR CELL NUCLEI): Negative (0% staining). ---AVERAGE INTENSITY OF ANY POSITIVE STAINING: N/A. ---INTERNAL CONTROL PRESENT AND STAIN EXPECTED: Yes. PROGESTERONE RECEPTOR*-- -NEGATIVE (<1% OF POSITIVE TUMOR CELL NUCLEI): Negative (0% staining). ---AVERAGE INTENSITY OF ANY POSITIVE STAINING: N/A. ---INTERNAL CONTROL PRESENT AND STAIN EXPECTED: Yes. HER2*-- HER2 PROTEIN EXPRESSION (IMMUNOHISTOCHEMISTRY ): By report HER2 IHC is negative (1+). HER2 GENE AMPLIFICATION (INSITU HYBRIDIZATION): N/A. COLD ISCHEMIA TIME (TARGET UP TO 60 MIN): 7 minutes. FIXATION TIME (TARGET 6-72 HRS): 27 hours. CAP Breast Biopsy 1110; CAP BreastBiomarkers 1410 OUTSIDE CONSULTATION Patient Name: TENISHA HANCOCK [facility] Rec: [id number] Path Number: [id number] [facility] ANATOMIC PATHOLOGY [address] [place] [id number] [facility] Comment on above: Performed By: #### P PPVOC #### [facility] [employer] [address] [place] [address] [id number] Detective And Intelligence Analyst: Rico Melo MD [facility] BREAST SPECIMENon 2021 [facility] BREAST SPECIMEN EXAMINATION: SPECIMEN RADIOGRAPH 02/17/2022 TECHNIQUE: Single radiograph of the surgical specimen was obtained intraoperatively. COMPARISON: Localization procedure today. HISTORY: Specimen radiograph post lumpectomy. ORDERING SYSTEM PROVIDED HISTORY: Status post breast lumpectomy TECHNOLOGIST PROVIDED HISTORY: breast cancer Is the patient ?->No FINDINGS: Specimen radiograph is submitted intraoperatively. Biopsy clip and nearby microcalcifications are in the specimen. Biopsy clip coordinates are A2 and the microcalcification coordinates are A3. Wire tip is intact. IMPRESSION: Specimen radiograph demonstrates inclusion of the targeted microcalcifications and biopsy clip Findings discussed with Dr. Murguia in person at 12:55pm on 02/17/2022 Interpreted by: Gage Eng MD Signed by: Gage Eng MD 02/17/22 Final result Normal [facility] Specimen radiograph demonstrates inclusion of the targeted microcalcifications and biopsy clip Findings discussed with Dr. Murguia in person at 12:55pm on 02/17/2022 [facility] EXAMINATION: SPECIMEN RADIOGRAPH 02/17/2022 TECHNIQUE: Single radiograph of the surgical specimen was obtained intraoperatively. COMPARISON: Localization procedure today. HISTORY: Specimen radiograph post lumpectomy. ORDERING SYSTEM PROVIDED HISTORY: Status post breast lumpectomy TECHNOLOGIST PROVIDED HISTORY: breast cancer Is the patient ?->No FINDINGS: Specimen radiograph is submitted intraoperatively. Biopsy clip and nearby microcalcifications are in the specimen. Biopsy clip coordinates are A2 and the microcalcification coordinates are A3. Wire tip is intact. [facility] YURI Quintura Work Phone: Radiology Study observation (narrative) [facility] Quintura Work Phone: WILLIE NEEDLE BREAST LOCALIZATI ON RIGHTon 02-17-2022 WILLIE NEEDLE BREAST LOCALIZATION RIGHT EXAMINATION: MAMMOGRAPHIC GUIDED NEEDLE LOCALIZATION OF THE RIGHT BREAST POSTPROCEDURE RIGHT MAMMOGRAM 02/17/2022 7:57 am TECHNIQUE: A timeout was performed to confirm patient identification and site of procedure. Risks, benefits, and alternatives of the procedure were discussed. Informed written consent was obtained. The patient's right breast was prepped in the standard fashion and 1% lidocaine was used for local anesthesia. Previously placed biopsy clip and microcalcifications previously seen within the mass were targeted for this localization. The needle was advanced under mammographic guidance from a lateral approach through the targeted clip and nearby microcalcifications and wire deployed. Gentle traction was then applied to engage the hook and postprocedural imaging was performed. The wire tip is at a depth of approximately 11 cm. Total wire length is 15 cm. The patient tolerated the procedure well with no immediate complications and was transferred to the surgical preoperative area for continued care. COMPARISON: Outside mammography 05/26/2021. MRI 02/04/2022. HISTORY: ORDERING SYSTEM PROVIDED HISTORY: breast cancer TECHNOLOGIST PROVIDED HISTORY: breast cancer Is the patient ?->No FINDINGS: The postprocedure right mammogram demonstrates good localization of the biopsy clip and residual microcalcifications. The tip of the wire is at a depth of 11 cm from the skin surface. The microcalcifications are immediately adjacent to the wire at a depth of approximately 9 cm from the skin surface and the biopsy clip (2 cm proximal to the tip) is at a depth of approximately 8.5 cm from the skin surface (3 cm proximal to the tip) adjacent to the wire. No significant residual mammographic mass. IMPRESSION: Mammographic wire localization of biopsy clip and associated microcalcifications, as described. No residual mammographic mass. Interpreted by: Gage Eng MD Signed by: Gage Eng MD 02/17/22 Final result Normal [facility] WILLIE NEEDLE LOCALIZATION RIG Ton 02-17-2022 Mammographic wire localization of biopsy clip and associated microcalcifications, as described. No residual mammographic mass. [facility] EXAMINATION: MAMMOGRAPHIC GUIDED NEEDLE LOCALIZATION OF THE RIGHT BREAST POSTPROCEDURE RIGHT MAMMOGRAM 02/17/2022 7:57 am TECHNIQUE: A timeout was performed to confirm patient identification and site of procedure. Risks, benefits, and alternatives of the procedure were discussed. Informed written consent was obtained. The patient's right breast was prepped in the standard fashion and 1% lidocaine was used for local anesthesia. Previously placed biopsy clip and microcalcifications previously seen within the mass were targeted for this localization. The needle was advanced under mammographic guidance from a lateral approach through the targeted clip and nearby microcalcifications and wire deployed. Gentle traction was then applied to engage the hook and postprocedural imaging was performed. The wire tip is at a depth of approximately 11 cm. Total wire length is 15 cm. The patient tolerated the procedure well with no immediate complications and was transferred to the surgical preoperative area for continued care. COMPARISON: Outside mammography 05/26/2021. MRI 02/04/2022. HISTORY: ORDERING SYSTEM PROVIDED HISTORY: breast cancer TECHNOLOGIST PROVIDED HISTORY: breast cancer Is the patient ?->No FINDINGS: The postprocedure right mammogram demonstrates good localization of the biopsy clip and residual microcalcifications. The tip of the wire is at a depth of 11 cm from the skin surface. The microcalcifications are immediately adjacent to the wire at a depth of approximately 9 cm from the skin surface and the biopsy clip (2 cm proximal to the tip) is at a depth of approximately 8.5 cm from the skin surface (3 cm proximal to the tip) adjacent to the wire. No significant residual mammographic mass. [facility] Radiology Study observation (narrative) CORKY RUIZ Quintura Work Phone: WILLIE NEEDLE LOCALIZATION RIGH TOrdered By: Gage Eng on 02-17-2022 CORKY WELCH Quintura Work Phone: NM LYMPHOSCINTIGRAMon 2021 NM LYMPHOSCINTIGRAM EXAMINATION: LYMPHOSCINTIGRAPHY (INJECTION AND IMAGES) 02/17/2022 9:24 am TECHNIQUE: Verbal informed consent was provided. Site of procedure was performed with the patient. The skin was cleansed and sulfur colloid labeled with 0.6 mCi of Tc99 was injected in the periareolar right breast in 4 divided doses. Scintigraphic imaging was then performed. HISTORY: ORDERING SYSTEM PROVIDED HISTORY: Malignant neoplasm of right female breast, unspecified estrogen receptor status, unspecified site of breast (HCC) TECHNOLOGIST PROVIDED HISTORY: Is the patient ?->No Reason for Exam: Right Breast CA IMPRESSION: Prompt identification of sentinel lymph node in the right axilla. Interpreted by: Gage Eng MD Signed by: Gage Eng MD 02/17/22 Final result Normal [facility] Prompt identificatio n of sentinel lymph node in the right axilla. [facility] EXAMINATION: LYMPHOSCINTIGRAPHY (INJECTION AND IMAGES) 02/17/2022 9:24 am TECHNIQUE: Verbal informed consent was provided. Site of procedure was performed with the patient. The skin was cleansed and sulfur colloid labeled with 0.6 mCi of Tc99 was injected in the periareolar right breast in 4 divided doses. Scintigraphic imaging was then performed. HISTORY: ORDERING SYSTEM PROVIDED HISTORY: Malignant neoplasm of right female breast, unspecified estrogen receptor status, unspecified site of breast (HCC) TECHNOLOGIST PROVIDED HISTORY: Is the patient ?->No Reason for Exam: Right Breast CA [facility] Gage Eng MD - 02/17/2022 EXAMINATION: LYMPHOSCINTIGRAPHY (INJECTION AND IMAGES) 02/17/2022 9:24 am TECHNIQUE: Verbal informed consent was provided. Site of procedure was performed with the patient. The skin was cleansed and sulfur colloid labeled with 0.6 mCi of Tc99 was injected in the periareolar right breast in 4 divided doses. Scintigraphic imaging was then performed. HISTORY: ORDERING SYSTEM PROVIDED HISTORY: Malignant neoplasm of right female breast, unspecified estrogen receptor status, unspecified site of breast (HCC) TECHNOLOGIST PROVIDED HISTORY: Is the patient ?->No Reason for Exam: Right Breast CA IMPRESSION: Prompt identification of sentinel lymph node in the right axilla. CORK[facility] [employer] Phone: Radiology Study observation (narrative) [employer]APP Phone: [place] LYMPHOSCINTIGRAMOrdered B y: Gage Eng on 02-17-2022 [employer] Phone: Surgical Pathologyon 022 Surgical Pathology (NOTE) -- Diagnosis -- A. RIGHT AXILLARY SENTINEL LYMPH NODES, EXCISIONAL BIOPSIES: - NEGATIVE FOR MALIGNANCY (0/5). B. RIGHT BREAST, EXCISIONAL LUMPECTOMY WITH WIRE LOCALIZATION: - FOCAL INTERMEDIATE GRADE DUCTAL CARCINOMA IN SITU (3.5 MM), ER FOCALLY POSITIVE (5%), LA NEGATIVE, IN THE REGION OF THE PRIOR BIOPSY SITE. - NEGATIVE FOR RESIDUAL INVASIVE CARCINOMA. - ALL FINAL SURGICAL MARGINS ARE NEGATIVE FOR ATYPIA AND NEOPLASIA. - STATUS POST NEOADJUVANT CHEMOTHERAPY. - SEE COMMENT. -- Diagnosis Comment -- PER THE PREOPERATIVE NOTE, THE INVASIVE CARCINOMA WAS NEGATIVE FOR ESTROGEN RECEPTOR, PROGESTERONE RECEPTOR AND HER2 EXPRESSION (TRIPLE NEGATIVE) IN THE ORIGINAL BIOPSY. THE PATIENT UNDERWENT NEOADJUVANT CHEMOTHERAPY PRIOR TO THE CURRENT PROCEDURE. NO RESIDUAL INVASIVE CARCINOMA IS IDENTIFIED IN THE CURRENT LUMPECTOMY SPECIMEN (FOCAL INTERMEDIATE GRADE DCIS ONLY) AND THE SENTINEL LYMPH NODES ARE NEGATIVE. THIS CONSTITUTES A PATHOLOGIC COMPLETE RESPONSE (pCR). Brett Nuñez M.D. Electronically Signed Out 02/18/2022 Clinical Information Pre-op Diagnosis: MALIGNANT NEOPLASM OF RIGHT FEMALE BREAST, UNSPECIFIED ESTROGEN RECEPTOR STATUS, UNSPECIFIED SITE OF BREAST Operative Findings: RIGHT AXILLARY SENTINEL NODES; RIGHT BREAST MAS DOUBLE SHORT BLACK SUTURE DAVISON SUPERIOR MARGIN, SINGLE LONG BLACK IS LATERAL MARGIN, BLUE SUTURE DAVISON ANTERIOR MARGIN, ADDITIONAL ANTERIOR MEDIAL MARGIN SUTURE DAVISON NEW MARGIN Operation Performed: NEEDLE DIRECTED RIGHT BREAST LUMPECTOMY WITH SENTINEL NODE BIOPSY WITH FROZEN SECTION AND POSSIBLE AXILLARY LYMPH NODE DISSECTION, ONCOPLASTIC RECONSTRUCTION RIGHT BREAST WITH JOSE R INCISIONAL VAC AND PEC BLOCK Source of Specimen A: RIGHT AXILLARY SENTINEL NODES B: RIGHT BREAST MASS Gross Description A. TENISHA HANCOCK, RIGHT AXILLARY SENTINEL NODES Received fresh are multiple fragments of adipose tissue, 4.0 x 3.0 x 2.1 cm in aggregate, contain five nodes, 0.3-1.1 cm. TP x 2, FS x 2, 2cs. B. TENISHA HANCOCK, RIGHT BREAST MASS DOUBLE SHORT BLACK SUTURE DAVISON SUPERIOR MARGIN, SINGLE LONG BLACK IS LATERAL MARGIN, BLUE SUTURE DAVISON ANTERIOR MARGIN, ADDITIONAL ANTERIOR MEDIAL MARGIN SUTURE DAVISON NEW MARGIN Two components. The first component is a 7.2 x 6.4 x 3.2 cm (S-I x M-L x A-P) oriented portion of fibrofatty tissue with a localization wire. The specimen is oriented with a double short black suture, single long black and double blue suture. The deep margin is inked black, superior blue, inferior red and anterior green. Sectioning reveals approximately 90% yellow-costello lobular adipose tissue and 10% focally dense ill-defined fibrous tissue with areas of nodular foci. Centrally, there is a region of hemorrhage consistent with previous biopsy and a stellate mass is not identified. Dense fibrous tissue focally extends to the superior, anterior and medial margins. The second component is a 5.1 x 2.8 x 1.8 cm oriented portion of fibrofatty tissue with a suture designating new margin. The new margin is inked black and opposite surface blue. Sectioning reveals mostly fatty cut surfaces with a few areas of ill-defined fibrous tissue that extend focally to the new margin and there are cystic areas which are at least 0.5 cm from the new margin. Cassette summary: 1-26 component 1 business services sales representative submitted from lateral to medial with all margins perpendicular except medial which is en face in 1 and medial is perpendicular in 25-26, biopsy site is in region of 24-26 and obvious dense fibrous tissue submitted in entirety (all six margins are represented), 27-35 component 2 in entirety, new margin perpendicular. tm Intraoperative Diagnosis A. FS DX: Negative for malignancy on frozen sections. ([facility], 02/17/22) Microscopic Description A, B. PROCEDURE: Excisional lumpectomy with wire localization, excision of additional margin, biopsies of right axillary sentinel lymph nodes SPECIMEN LATERALITY AND TUMOR SITE: Right breast, site not specified TUMOR SIZE (LARGEST INVASIVE COMPONENT): No residual invasive carcinoma is identified in the lumpectomy specimen. See comment above. DUCTAL CARCINOMA IN SITU: A 3.5 mm focus of intermediate grade ductal carcinoma in situ is present adjacent to the prior biopsy site. TUMOR EXTENT - SKIN (INVASION, SATELLITE FOCI): N/A - NIPPLE: N/A - SKELETAL MUSCLE: Negative MARGINS - INVASIVE CARCINOMA - - SITE(S) OF ALL POSITIVE MARGINS (SPECIFY EXTENT): N/A - IF ALL NEGATIVE-- --SITE(S) AND DISTANCE TO CLOSEST: N/A MARGINS - DCIS - - SITE(S) OF ALL POSITIVE MARGINS: N/A - IF ALL NEGATIVE-- --SITE(S) AND DISTANCE TO CLOSEST: All final surgical margins are greater than 1 cm from the DCIS. LYMPHOVASCULAR INVASION: Not identified REGIONAL LYMPH NODES - - NUMBER EXAMINED (SENTINEL AND NON-SENTINEL): 5 - NUMBER OF SENTINEL: 5 - NUMBER WITH MACROMETASTASES: 0. The sentinel lymp (more content not included)... Normal [facility] Comment on above: Performed By: #### P PPVS #### [facility] [employer] [facility] [place] [address] Detective And Intelligence Analyst: Rico Melo MD MRI BREAST BILATERAL W WO CO NTRASTon 02-04-2022 MRI BREAST BILATERAL W WO CONTRAST EXAMINATION: MRI OF THE BILATERAL BREASTS WITHOUT AND WITH CONTRAST 02/04/2022 12:46 pm: TECHNIQUE: Multiplanar multisequence MRI of the bilateral breasts were performed without and with the administration of intravenous contrast. Data analysis was performed with color parametric mapping, image subtraction, and 3D reconstructions. COMPARISON: Comparison November 17 prior right breast ultrasound of 13 May 2021 and right mammogram of 22 April [address] [facility]. Other right mammogram of June 2021 at an outside facility is not available. HISTORY: ORDERING SYSTEM PROVIDED HISTORY: Malignant neoplasm of right female breast, unspecified estrogen receptor status, unspecified site of breast (HCC) TECHNOLOGIST PROVIDED HISTORY: STAT Creatinine as needed:->Yes Last MRI done at [facility] in [place]. Result scanned in Media Reason for Exam: Last MRI done at [facility] in [place]. Result scanned in Media , Malign Additional signs and symptoms: Last MRI done at [facility] in [place]. Result scanned in Media , Malignant neoplasm of right female breast, unspecified estrogen receptor status, unspecified site of breast (HCC) pleomorphic calcifications within a mass 2.4 x 2.2 cm at 6 o'clock in the right breast. Patient has undergone chemotherapy. FINDINGS: Breast parenchyma: The breasts are composed of scattered fibroglandular density. Minimal parenchymal contrast enhancement is noted. Right breast: At 6 o'clock in the right breast there is a signal void area compatible with a biopsy clip. Surrounding this area is minimal enhancement of approximately 9 x 6 mm, located 8 cm from the nipple representing the patient's site of carcinoma with only minimal residual remaining following chemotherapy. No other areas of questionable masslike or non masslike contrast enhancement are noted within the right breast. No abnormality in the right axilla or internal mammary chain. Left breast: Areas of cyst-like signal are present in the upper inner left breast. No worrisome areas of masslike or non masslike contrast enhancement. No abnormality in the left axilla or internal mammary chain is noted. Extra mammary tissues: No abnormal signal intensity or contrast enhancement noted. IMPRESSION: 1. Area of 9 x 6 mm mild enhancement at 6 o'clock right breast 8 cm from the nipple consistent with residual of breast cancer treated with chemotherapy. No other areas of abnormal contrast enhancement in the right breast or axilla. 2. No MRI evidence of malignancy left breast. BI-RADS 6 BIRADS: BIRADS - CATEGORY 6 Known Biopsy-Proven Cancer. Appropriate action should be taken. OVERALL ASSESSMENT - KNOWN BIOPSY PROVEN MALIGNANCY. Interpreted by: Ashlie Fofana MD Signed by: Ashlie Fofana MD 02/04/22 Final result Normal [facility] 1. Area of 9 x 6 mm mild enhancement at 6 o'clock right breast 8 cm from the nipple consistent with residual of breast cancer treated with chemotherapy. No other areas of abnormal contrast enhancement in the right breast or axilla. 2. No MRI evidence of malignancy left breast. BI-RADS 6 BIRADS: BIRADS - CATEGORY 6 Known Biopsy-Proven Cancer. Appropriate action should be taken. OVERALL ASSESSMENT - KNOWN BIOPSY PROVEN MALIGNANCY. [facility] RIS CONSOL[facility] EXAMINATION: MRI OF THE BILATERAL BREASTS WITHOUT AND WITH CONTRAST 02/04/2022 12:46 pm: TECHNIQUE: Multiplanar multisequence MRI of the bilateral breasts were performed without and with the administration of intravenous contrast. Data analysis was performed with color parametric mapping, image subtraction, and 3D reconstructions. COMPARISON: Comparison May 2 prior right breast ultrasound of 13 May 2021 and right mammogram of 22 April [address] [facility]. Other right mammogram of June 2021 at an outside facility is not available. HISTORY: ORDERING SYSTEM PROVIDED HISTORY: Malignant neoplasm of right female breast, unspecified estrogen receptor status, unspecified site of breast (HCC) TECHNOLOGIST PROVIDED HISTORY: STAT Creatinine as needed:->Yes Last MRI done at [facility] in [place]. Result scanned in Media Reason for Exam: Last MRI done at [facility] in [place]. Result scanned in Media , Malign Additional signs and symptoms: Last MRI done at [facility] in [place]. Result scanned in Media , Malignant neoplasm of right female breast, unspecified estrogen receptor status, unspecified site of breast (HCC) pleomorphic calcifications within a mass 2.4 x 2.2 cm at 6 o'clock in the right breast. Patient has undergone chemotherapy. FINDINGS: Breast parenchyma: The breasts are composed of scattered fibroglandular density. Minimal parenchymal contrast enhancement is noted. Right breast: At 6 o'clock in the right breast there is a signal void area compatible with a biopsy clip. Surrounding this area is minimal enhancement of approximately 9 x 6 mm, located 8 cm from the nipple representing the patient's site of carcinoma with only minimal residual remaining following chemotherapy. No other areas of questionable masslike or non masslike contrast enhancement are noted within the right breast. No abnormality in the right axilla or internal mammary chain. Left breast: Areas of cyst-like signal are present in the upper inner left breast. No worrisome areas of masslike or non masslike contrast enhancement. No abnormality in the left axilla or internal mammary chain is noted. Extra mammary tissues: No abnormal signal intensity or contrast enhancement noted. [facility] Radiology Study observation (narrative) CORKY RUIZ [facility]ura Work Phone: MRI BREAST BILATERAL W WO CO NTRASTOrdered By: Ashlie Fofana on 02-04-2022 Interpretation and review of laboratory results Abnormal C[facility]Y [facility]ura Work Phone: CORKY WELCH [employer] Phone: Aamir 01-29-2022 CNPN Telephone (BRJESSICAAV) TENISHA HANCOCK ([id number]) 1975 F DEF Date Time Provider Department 01/29/22 XIOMARA LEA During your visit today, we recorded the following information about you: Nat Ricketts RN 01/29/2022 5:27 PM Signed Noticed that patient's appointment for 01/[address] Lea was cancelled Called and lmom with my name and number for her to call back if this was cancelled accidentally somehow and we would be happy to put her back on the schedule Allergies As of Date: 01/29/2022 (No Known Allergies) Date Reviewed: 01/15/2022 Reviewed by: Diamond Gibson - Fully Assessed Reason for Visit: Appointment [186] Prescriptions as of 02/02/2022 - citalopram (CELEXA) 20 mg tablet Take 20 mg by mouth once daily. - omeprazole (PRILOSEC) 20 mg capsule Take 20 mg by mouth twice daily. Problem List As Of Date: 01/29/2022 (None) Encounter Status:Closed by NAT RICKETTS on 02/02/22 [facility] 01-15-2022 CNOV Office Visit (PLASMN ) TENISHA HANCOCK ([id number]) 1975 F DEF Date Time Provider Department 01/15/22 4:00 PM FAHAD RUSSELL During your visit today, we recorded the following information about you: Temperature Pulse Blood pressure Weight 98.1 degrees 72/minute 149/86 87.6 kg Height 1.6 m Fahad Russell MD 01/27/2022 4:45 PM Signed BREAST RECONSTRUCTION EVALUATION CC: Tenisha Hnacock is a 46 year old female that presents today for breast reconstruction evaluation. 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 Dr. Reza in [place] is her breast surgeon. She saw a plastic surgeon in [place] but he was not a microsurgeon and she is interested in a JOSEP. She is currently leaning towards a double mastectomy but is not definite. Prior breast procedures: Breast biopsy Prior Abdominal Surgery: Gallbladder removed Hx Radiation Therapy: No Hx Chemotherapy: Yes - finished 12/17/21 PRIOR MAMMOGRAM: Yes, date: October 07, 2021 Bra Size: C Desired Bra Size: around the same size OB HISTORY: Para: 1 : Patient did breastfeed Plan for future pregnancies: No HISTORY OF BREAST DISEASE: No patient history of previous breast disease FAMILY HISTORY OF BREAST CANCER: No family history of breast cancer HISTORY OF BLEEDING/CLOTTING: No FAMILY HISTORY OF BLEEDING OR CLOTTING: No REVIEW OF SYSTEMS PAIN ASSESSMENT: Negative for pain, history of chronic pain, or current treatment for a chronic pain condition. GENERAL: No weight loss, malaise or fevers NECK: Negative for lumps, goiter, pain and significant neck swelling RESPIRATORY: Negative for cough, hemoptysis, wheezing, COPD, dyspnea or shortness of breath CARDIOVASCULAR: Negative for chest pain, leg swelling, hypertension, CHF or palpitations MUSCULOSKELETAL: Negative for joint pain or swelling, back pain or muscle pain SKIN: Negative for lesions, rash, and itching ENDOCRINE: Negative for cold or heat intolerance, polyuria, polydipsia and goiter NEURO: No history of headaches, syncope, paralysis, seizures or tremors PMH: No past medical history on file. PSH: No past surgical history on file. MEDS: No current outpatient medications on file. No current facility-administered medications for this visit. 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 Back Exam: no scar; latissimus dorsi muscle function appears to be intact Abdominal Exam: soft, non-tender, obese and protuberant, BS+, non-distended, lap samreen Breast Exam: Asymmetry: Minimal Axillary Lymphadenopathy: no Scars: None Ptosis: R: Grade III L: Grade III Medially displaced nipple: None Assessment: Patient is a candidate for tissue guest relations agent Photos taken today Plan: An extensive discussion was undertaken with the patient detailing the risks, benefits and alternatives to tissue guest relations agent. Tenisha Hancock was given supplemental information on breast reconstruction. I have advised her to contact me at any time with further questions she may have regarding breast reconstruction. This plan will be coordinated with Dr. Lea This visit lasted for more than 30 minutes and greater than 50% of the visit was involved in the discussion of the options for treatment. The patient was seen with Yeimi Ogden RN who performed the Review of Systems and Past/Family/Social History. I have reviewed these and agree with her findings. The History and Physical as taken by me are documented above and/or dictated below. I agree with the Chief Complaint, ROS, and Past Histories independently gathered by the clinical office support specialist and the remaining scribed note accurately describes my personal service to the patient. patient's condition reviewed and examined ? plan and options of management, complexity, risk benefit limitation potential complication, success /failure of management, expected result and recovery discussed ? I spent 30 minutes in the visit, with more than 50% of the total [id number] time of the visit in counseling / coordination of care. ? Fahad Russell MD Referring Provider: SELF [200] Allergies As of Date: 01/15/2022 (No Known Allergies) Date Reviewed: 01/15/2022 Reviewed by: Diamond Gibson - Fully Assessed Reason for Visit: Consult [173] Primary Visit Diagnosis:History of breast cancer [Z85.3] Other Visit Diagnosis:Breast asymmetry following reconstructive surgery [N65.1] Prescriptions as of 01/27/2022 - citalopram (CELEXA) 20 mg tablet Take 20 mg by mouth once daily. - omeprazole (PRILOSEC) 20 mg capsule Take 20 mg by mouth twice daily. Problem Li (more content not included)... [facility] CNPNon 01-15-2022 CNPN Telephone (BRCRAV) TENISHA HANCOCK ([id number]) 1975 F DEF Date Time Provider Department 01/15/22 XIOMARA LEA During your visit today, we recorded the following information about you: Nat Ricketts, RN 01/15/2022 4:43 PM Signed Patient was seen by Dr Russell and has finished her chemotherapy treatments and needs a surgical consult SHANNAN She had outside studies done so we will need all outside imaging and reports and path slides and reports SHANNAN Lucinda Alvarez Ma 01/16/2022 9:42 AM Signed I called pt to discuss where all outside workup has been, she has had studies at both [facility] and [place]. I was able to have patient get a release and will also fax to [facility] what she has thus far. Our office will continue to work on getting all outside records to be submitted for a second review. Gayeabdulkadir Vanesa 01/16/2022 1:25 PM Signed Pt calling regarding faxed info she had sent to [facility]. Pt asking if fax was received by office or if she needs to do anything else. Pt requesting call back to discuss. Lucinda Alvarez Ma 01/16/2022 3:53 PM Signed Noted I will check when in [place] on Wednesday. Marybel Watson 01/22/2022 9:54 AM Signed Patient is calling again in reference to the below. Patient states she has still not been contacted about the status of her outside records being reviewed or scheduling an appointment. Patient is asking for a call back to discuss and schedule. Jade Marie 01/22/2022 11:20 AM Addendum Patient calling checking on status of records and consult Please advise Xiomara Lea MD 01/22/2022 1:20 PM Signed Imaging reports rec'd reviewed: [facility] 04/2021 - R screening abnl 2.4 cm mass with satellites? Bx in May, looks like no clip placed? Rest of imaging doesn't have location IDed MRI 06/11/21 - 2.8 cm mass at 6:00 posterior, two adjacent satellite lesions (7 mm and 1 cm) Clip placed 06/19/21 CT CAP 07/16/21 - 8mm and 7mm liver lesions, uncertain etiology Hip XRay 08/18/21 neg MRI L spine 08/19/21 neg for malignancy Breast MRI 10/13/21 decrease in size of masses I have no images, no notes about treatment to date. I see a teaching note 06/23/21 at [facility] but limited documentation since then as to her treatments, etc. I need path to be reviewed, pt will likely need updated imaging, can start with bilat diagnostic mammogram, perhaps can see me with same day imaging at ? Perhaps combine slots for her at 2:00 Tuesday 01/30? Thanks, MD Nat Louis RN 01/22/2022 2:07 PM Signed Left message on answering machine with my name and number and to call back to offer appointment Tuesday 01/30 at 1:[address] Lea. She will need imaging prior to that appt and we will call with arrival time for that 01/23 [facility] 01/22/2022 3:14 PM Signed Patient called back, she left detailed message on voicemail to return her call at [phone]. Thank you. Nat Ricketts RN 01/22/2022 3:49 PM Signed Spoke with patient - she is aware that we will call her 01/23 with the time to arrive for imaging prior to appt We still need her slides to be reviewed as stated below Nat Ricketts RN 01/23/2022 9:32 AM Signed Please add patient to Dr Lea on 01/30 at 1:45 for 60 min new cancer consult at [facility] Patient Moss Picker 01/23/2022 9:57 AM Signed Pt scheduled Lucinda Alvarez Ma 01/23/2022 10:40 AM Signed Still have not received all records, I spoke to patient today and asked that she help expedite getting her pathology reports and slides from [facility] along with all her images and reports, we also need all the workup done at [facility] and [place]. I provided [facility] fax number and patient advised she will help me gather all her records. Lucinda Alvarez Ma 01/27/2022 10:00 AM Signed We still have not received path slides as of today. I called and LMOM for Jillian whom is the director of [employer] lab department to get an update. I will f/u once I receive a call from this office. Lucinda Alvarez Ma 01/27/2022 10:07 AM Signed Please note patient's imaging and biopsies were from 04/2021 to 06/2021 due to being over 6 months old radiology will not review, images and reports are available for Dr. Lea to review. Lucinda Alvarez Ma 01/27/2022 10:34 AM Signed Jillian called from [facility] she advised she will work on getting all slides sent to [facility] [place]. Lucinda Alvarez Ma 01/28/2022 9:41 AM Signed Addended by: LUCINDA RED MA on: 01/28/2022 09:41 AM Modules accepted: Orders Allergies As of Date: 01/15/2022 (No Known Allergies) Date Reviewed: 01/15/2022 Reviewed by: Diamond Gibson - Fully Assessed Reason for Visit: Appointment [186] Order(s):OUTSIDE SURG PATH SLIDE REVIEW [[id number]] Order #: [id number] Prescriptions as of 01/28/2022 - citalopram (CELEXA) 20 mg tablet Take 20 mg (more content not included)... [facility] Basophils Auto (Bld) [#/Vol] Ordered By: Kallie Chang on 12-24-2021 Basophils (Bld) [#/Vol] 0.0 10*3/uL 0.0-0.2 [facility] Basophils/100 WBC Auto (Bld) Ordered By: Kallie Chang on 12-24-2021 Basophils/100 WBC (Bld) 0.3 % . [facility] Blood hemoglobin measurement (mass/volume)Ordered By: Kallie Chang on 12-24-2021 Hemoglobin (Bld) [Mass/Vol] 10.3 g/dL 11.8-15.4 [facility] Blood leukocytes automated c ount (number/volume)Ordered By: Kallie Chang on 12-24-2021 WBC (Bld) [#/Vol] 5.8 10*3/uL 4.5-11.0 [facility] Body fluid albumin measureme nt (mass/volume)Ordered By: Kallie Chang on 12-24-2021 Albumin (Body fld) [Mass/Vol] 3.8 g/dL 3.2-5.5 [facility] Creatinine and Glomerular fi ltration rate.predicted panel (S/P/Bld)Ordered By: Kallie Chang on 12-24-2021 Creatinine [Mass/Vol] 0.66 mg/dL 0.44-1.03 [facility] Eosinophils Auto (Bld) [#/Vo l]Ordered By: Kallie Chang on 12-24-2021 Eosinophils (Bld) [#/Vol] 0.1 10*3/uL 0.0-0.45 [facility] Eosinophils/100 WBC Auto (Bl d)Ordered By: Kallie Chang on 12-24-2021 Eosinophils/100 WBC (Bld) 0.9 % . [facility] Erythrocyte distribution wid th Auto (RBC) [Ratio]Ordered By: Kallie Chang on 12-24-2021 Erythrocyte distribution width (RBC) [Ratio] 13.9 % 11.9-15.3 [facility] Estimated glomerular filtrat ion rate (GFR) non- AmericanOrdered By: Kallie Chang on 12-24-2021 GFR/1.73 sq M.predicted among non-blacks MDRD (S/P/Bld) [Vol rate/Area] > 60 mL/Min [facility] Globulin Calc (S) [Mass/Vol] Ordered By: Kallie Chang on 12-24-2021 Globulin (S) [Mass/Vol] 3.0 g/dL [facility] Hematocrit Auto (Bld) [Volum e fraction]Ordered By: Kallie Chang on 12-24-2021 Hematocrit (Bld) [Volume fraction] 30.4 % 34.0-46.4 [facility] Laboratory - Hematology and Cell countsOrdered By: Kallie Chang on 12-24-2021 Nucleated RBC/100 WBC (Bld) [Ratio] 0.0 % 0-0.5 [facility] Lymphocytes Auto (Bld) [#/Vo l]Ordered By: Kallie Chang on 12-24-2021 Lymphocytes (Bld) [#/Vol] 1.2 10*3/uL 1.00-4.8 [facility] Lymphocytes/100 WBC Auto (Bl d)Ordered By: Kallie Chang on 12-24-2021 Lymphocytes/100 WBC (Bld) 21.5 % . [facility] MCH Auto (RBC) [Entitic mass ]Ordered By: Kallie Chang on 12-24-2021 MCH (RBC) [Entitic mass] 34.6 pg 24.7-34.3 [facility] MCHC Auto (RBC) [Mass/Vol]Or dered By: Kallie Chang on 12-24-2021 MCHC (RBC) [Mass/Vol] 33.9 g/dL 32.0-35.0 Fir [facility] MCV Auto (RBC) [Entitic vol] Ordered By: Kallie Chang on 12-24-2021 MCV (RBC) [Entitic vol] 102.2 fL 80-100 [facility] Macrocytes detectionOrdered By: Kallie Chang on 12-24-2021 Macrocytes Ql (Bld) Slight [facility] Monocytes Auto (Bld) [#/Vol] Ordered By: Kallie Chang on 12-24-2021 Monocytes (Bld) [#/Vol] 0.3 10*3/uL 0.0-0.8 [facility] Monocytes/100 WBC Auto (Bld) Ordered By: Kallie Chang on 12-24-2021 Monocytes/100 WBC (Bld) 5.5 % . [facility] Neutrophils Auto (Bld) [#/Vo l]Ordered By: Kallie Chang on 12-24-2021 Neutrophils (Bld) [#/Vol] 4.1 10*3/uL 1.8-7.7 [facility] Neutrophils/100 WBC Auto (Bl d)Ordered By: Kallie Chang on 12-24-2021 Neutrophils/100 WBC (Bld) 71.8 % . [facility] No Panel InformationOrdered By: Kallie Chang on 12-24-2021 Estimated GFR () > 60 mL/Min [facility] Comment on above: GFR estimated refere nce range: According to KDOQI guidelines, <60 ml/min/1.73m2 is sufficient to diagnose a patient with chronic kidney disease. Pharmacy Creatinine Clearance (Chem 115.02 [facility] Platelet Estimate Normal Normal [facility] Platelet Morphology Comment Normal Normal [facility] Poikilocytosis Slight [facility] Ovalocyte detectionOrdered B y: Kallie Chang on 12-24-2021 Ovalocytes LM Ql (Bld) [facility] Plate[facility] mean volume Auto (B ld) [Entitic vol]Ordered By: Kallie Chang on 12-24-2021 Platelet mean volume (Bld) [Entitic vol] 8.0 fL 6.3-10.7 [facility] Platelets Auto (Bld) [#/Vol] Ordered By: Kallie Chang on 12-24-2021 Platelets (Bld) [#/Vol] 207 10*3/uL 150-450 [facility] Protein [Mass/volume] in Ser um or PlasmaOrdered By: Kallie Chang on 12-24-2021 Protein [Mass/Vol] 6.8 g/dL 6.1-7.9 [facility] RBC Auto (Bld) [#/Vol]Ordere d By: Kallie Chang on 12-24-2021 RBC (Bld) [#/Vol] 2.98 10*6/uL 3.60-5.00 [facility] RBC morphologyOrdered By: Precious Chang on 12-24-2021 RBC morphology finding Nom (Bld) N/A [facility] Serum or plasma alanine napoles otransferase measurement without P-5'-P (enzymatic activiOrdered By: Kallie Chang on 12-24-2021 ALT No additional P-5'-P [Catalytic activity/Vol] 20 U/L 10-60 [facility] Serum or plasma albumin/glob ulin mass ratioOrdered By: Kallie Chang on 12-24-2021 Albumin/Globulin [Mass ratio] 1.3 {ratio} [facility] Serum or plasma alkaline zo sphatase measurement (enzymatic activity/volume)Ordered By: Kallie Chang on 12-24-2021 ALP [Catalytic activity/Vol] 112 U/L 32-92 [facility] Serum or plasma aspartate am inotransferase measurement (enzymatic activity/volume)Ordered By: Kallie Chang on 12-24-2021 AST [Catalytic activity/Vol] 17 U/L 10-42 [facility] Serum or plasma calcium daiana urement (mass/volume)Ordered By: Kallie Chang on 12-24-2021 Calcium [Mass/Vol] 9.6 mg/dL 8.2-10.2 [facility] Serum or plasma chloride lizett surement (moles/volume)Ordered By: Kallie Chang on 12-24-2021 Chloride [Moles/Vol] 98 mmol/L 95-114 [facility] Serum or plasma glucose daiana urement (mass/volume)Ordered By: Kallie Chang on 12-24-2021 Glucose [Mass/Vol] 119 mg/dL 70-100 [facility] Comment on above: ADA recommended refe rence range Random Glucose Reference Range is dependent on time and content of last meal. Glucose of more than 200 mg/dL in a nonstressed, ambulatory subject supports the diagnosis of Diabetes Mellitus. ADA recommended refe rence rangeRandom Glucose Reference Range is dependent on time and content of last meal. Glucose of more than 200 mg/dL in a nonstressed, ambulatory subject supports the diagnosis of Diabetes Mellitus. Serum or plasma potassium me asurement (moles/volume)Ordered By: Kallie Chang on 12-24-2021 Potassium [Moles/Vol] 4.0 mmol/L 3.5-5.1 [facility] Serum or plasma sodium measu rement (moles/volume)Ordered By: Kallie Chang on 12-24-2021 Sodium [Moles/Vol] 134 mmol/L 136-146 [facility] Serum or plasma total biliru bin measurement (mass/volume)Ordered By: Kallie Chang on 12-24-2021 Bilirubin [Mass/Vol] 0.5 mg/dL 0.3-1.2 [facility] Serum or plasma total carbon dioxide measurement (moles/volume)Ordered By: Kallie Chang on 12-24-2021 CO2 [Moles/Vol] 23.2 mmol/L 22.0-30.0 [facility] Serum or plasma urea nitroge n measurement (mass/volume)Ordered By: Kallie Chang on 12-24-2021 Urea nitrogen [Mass/Vol] 7 mg/dL 04-10 [facility] CNPNon 12-19-2021 CNPN Telephone (DPQ) TENISHA HANCOCK ([id number]) 1975 F Date Time Provider Department 12/19/21 FAHAD RUSESLL DPQ During your visit today, we recorded the following information about you: Alfredo Falcon 12/19/2021 10:46 AM Signed I was unable to contact the patient to get her scheduled with . The phone number on file is disconnected and the patient does not have a my chart set up. Allergies As of Date: 12/19/2021 (Not on File) Date Reviewed: Never Reviewed Reason for Visit: Appointment [186] Problem List As Of Date: 12/19/2021 (None) Encounter Status:Closed by ALFREDO ORTEGA on 12/19/21 [facility] No Panel InformationOrdered By: Kallie Chang on 12-16-2021 Adrenocorticotropic Hormone 31.0 pg/mL 7.2-63.3 [facility] Comment on above: ACTH reference inter ervin for samples collected between 7 and 10 AM. Performed at: [facility] [id number] Detective And Intelligence Analyst: Red Sena PhD, Phone: [phone] ACTH reference inter ervin for samples collected between 7 and10 AM.Performed at: [facility] [id number] Director: Red Sena PhD, Phone: [phone] Random cortisol measurementO rdered By: Kallie Chang on 12-16-2021 Cortisol [Mass/Vol] 7.2 ug/dL [facility] Comment on above: Reference range: AM 6 - 24 ug/dl PM <10 ug/dl Reference range: AM 6 - 24 ug/dl PM <10 ug/dl TSH DL <= 0.005 mIU/L QnOrde red By: Kallie Chang on 12-16-2021 TSH Qn 0.08 m[IU]/L 0.45-5.33 [facility] Thyroxine (T4) free [Mass/vo lume] in Serum or PlasmaOrdered By: Kallie Chang on 12-16-2021 Free T4 [Mass/Vol] 0.74 ng/dL 0.61-1.12 [facility] No Panel InformationOrdered By: Kallie Chang on 12-02-2021 Dohle Bodies Slight [facility] Teardrop cell detectionOrder ed By: Kallie Chang on 12-02-2021 Dacrocytes LM Ql (Bld) Slight [facility] Toxic leukocyte granulation detectionOrdered By: Kallie Chang on 12-02-2021 Toxic granules LM Ql (Bld) Slight [facility] Basophils/100 WBC Auto (Bld) Ordered By: Kallie Chang on 11-04-2021 Basophils/100 WBC (Bld) 1 % 0-2 [facility] Blood anisocytosis detection Ordered By: Kallie Chang on 11-04-2021 Anisocytosis Ql (Bld) Moderate [facility] Blood polychromasia detectio n by light microscopyOrdered By: Kallie Chang on 11-04-2021 Polychromasia LM Ql (Bld) Slight [facility] Erythrocyte basophilic stipp ling detectionOrdered By: Kallie Chang on 11-04-2021 Basophilic stippling LM Ql (Bld) Rare [facility] Laboratory - Hematology and Cell countsOrdered By: Kallie Chang on 11-04-2021 Band form neutrophils/100 WBC (Bld) 1 % 0-5 [facility] Lymphocytes/100 WBC Auto (Bl d)Ordered By: Kallie Chang on 11-04-2021 Lymphocytes/100 WBC (Bld) 25 % 18-42 [facility] Monocytes/100 WBC Manual cnt (Bld)Ordered By: Kallie Chang on 11-04-2021 Monocytes/100 WBC (Bld) 6 % 2-11 [facility] Myelocytes/100 WBC Manual cn t (Bld)Ordered By: Kallie Chang on 11-04-2021 Myelocytes/100 WBC (Bld) 3 % 0-0 [facility] No Panel InformationOrdered By: Kallie Chang on 11-04-2021 Rouleau Slight [facility] Segmented neutrophils/100 WB C Manual cnt (Bld)Ordered By: Kallie Chang on 11-04-2021 Segmented neutrophils/100 WBC (Bld) 64 % 50-70 [facility] Otheron 06-06-1998 CONVERTED ELECTRONIC SIGNATURE PATI CARTAGENA, SUPERVISORY POST ACUTE CARE NURSE PRACTITIONER (Electronic signature on file) Final Signed Out: 06/06/1998 15:39 [facility] CONVERTED FINAL DIAGNOSIS SPECIMEN ADEQU ACY SATISFACTORY FOR EVALUATION GENERAL CATEGORIZATION BENIGN CELLULAR CHANGES DESCRIPTIVE DIAGNOSIS FUNGAL ORGANISMS MORPHOLOGICALLY CONSISTENT WITH JUAN CARLOS SPECIES. INFLAMMATORY CELL CHANGES. HORMONAL EVALUATION HORMONAL PATTERN COMPATIBLE WITH AGE AND HISTORY [facility] CONVERTED ORDERING PROVIDER Ordering Provider: JAMARI HOYT [facility] CONVERTED PAP DISCLAIMER The Pap test se rves as a screening tool for early detection of cervical cancer. The Pap test does not represent a final diagnostic test for cervical cancer. Furthermore, the Pap test was not designed to screen for other malignancies (endometrial, ovarian cancer, etc....). False negatives and false positives have occurred. If clinically indicated, further patient evaluation is recommended. [facility] Vital Signs Date Time Vital Sign Value Performing Clinician Facility 11-25-2022 14:42-0400 Body temperature 97.8 [degF] MD Eliel Hurd Work Phone: [facility] 11-25-2022 14:42-0400 Body weight 79.83 kg MD Eliel Hurd Work Phone: [facility] 11-25-2022 14:42-0400 Diastolic blood pressure 73 mm[Hg] MD Eliel Hurd Work Phone: [facility] 11-25-2022 14:42-0400 Heart rate 75 /min MD Eliel Hurd Work Phone: [facility] [facility] 11-25-2022 14:42-0400 Respiratory rate 16 /min MD Eliel Hurd Work Phone: [facility] 11-25-2022 14:42-0400 SaO2% (BldA) [Mass fraction] 97 % MD Eliel Hurd Work Phone: [facility] 11-25-2022 14:42-0400 Systolic blood pressure 109 mm[Hg] MD Eliel Hurd Work Phone: [facility] 09-18-2022 13:38-0500 Body temperature 98 [degF] MD Eliel Hurd Work Phone: [facility] 09-18-2022 13:38-0500 Body weight 80.4 kg MD Eliel Hurd Work Phone: [facility] 09-18-2022 13:38-0500 Diastolic blood pressure 78 mm[Hg] MD Eliel Hurd Work Phone: [facility] 09-18-2022 13:38-0500 Heart rate 77 /min MD Eliel Hurd Work Phone: [facility] 09-18-2022 13:38-0500 Respiratory rate 16 /min MD Eliel Hurd Work Phone: [facility] 09-18-2022 13:38-0500 SaO2% (BldA) [Mass fraction] 99 % MD Eliel Hurd Work Phone: [facility] 09-18-2022 13:38-0500 Systolic blood pressure 115 mm[Hg] MD Eliel Hurd Work Phone: [facility] 08-14-2022 14:08-0500 Body weight 79.6 kg MD Eliel Hurd Work Phone: [facility] 08-14-2022 14:08-0500 Diastolic blood pressure 68 mm[Hg] MD Eliel Hurd Work Phone: [facility] 08-14-2022 14:08-0500 Heart rate 72 /min MD Eliel Hurd Work Phone: [facility] 08-14-2022 14:08-0500 Respiratory rate 18 /min MD Eliel Hurd Work Phone: [facility] 08-14-2022 14:08-0500 SaO2% (BldA) [Mass fraction] 99 % MD Eliel Hurd Work Phone: [facility] 08-14-2022 14:08-0500 Systolic blood pressure 103 mm[Hg] MD Eliel Hurd Work Phone: [facility] 08-07-2022 13:06-0500 Body temperature 98 [degF] MD Eliel Hurd Work Phone: [facility] 08-06-2022 13:31-0500 Body temperature 97.8 [degF] MD Eliel Hurd Work Phone: [facility] 08-06-2022 13:31-0500 Body weight 76.1 kg MD Eliel Hurd Work Phone: [facility] 08-06-2022 13:31-0500 Diastolic blood pressure 78 mm[Hg] MD Eliel Hurd Work Phone: [facility] 08-06-2022 13:31-0500 Heart rate 60 /min MD Eliel Hurd Work Phone: [facility] 08-06-2022 13:31-0500 Respiratory rate 16 /min MD Eliel Hurd Work Phone: [facility] 08-06-2022 13:31-0500 SaO2% (BldA) [Mass fraction] 95 % MD Eliel uHrd Work Phone: [facility] 08-06-2022 13:31-0500 Systolic blood pressure 115 mm[Hg] MD Eliel Hurd Work Phone: [facility] 07-15-2022 13:06-0500 Body height 160.02 cm MD Eliel Hurd Work Phone: [facility] 07-15-2022 13:06-0500 Body temperature 97.5 [degF] MD Eliel Hurd Work Phone: [facility] 07-15-2022 13:06-0500 Body weight 75.3 kg MD Eliel Hurd Work Phone: [facility] 07-15-2022 13:06-0500 Diastolic blood pressure 61 mm[Hg] MD Eliel Hurd Work Phone: [facility] 07-15-2022 13:06-0500 Heart rate 80 /min MD lEiel Hurd Work Phone: [facility] 07-15-2022 13:06-0500 Respiratory rate 18 /min MD Eliel Hurd Work Phone: [facility] 07-15-2022 13:06-0500 SaO2% (BldA) [Mass fraction] 98 % MD Eliel Hurd Work Phone: [facility] 07-15-2022 13:06-0500 Systolic blood pressure 102 mm[Hg] MD Eliel Hurd Work Phone: [facility] 06-18-2022 10:07-0500 Body height 160.02 cm MD Eliel Hurd Work Phone: [facility] 06-18-2022 10:07-0500 Body temperature 98.4 [degF] MD Eliel Hurd Work Phone: [facility] 06-18-2022 10:07-0500 Body weight 78.9 kg MD Eliel Hurd Work Phone: [facility] 06-18-2022 10:07-0500 Diastolic blood pressure 80 mm[Hg] MD Eliel Hurd Work Phone: [facility] 06-18-2022 10:07-0500 Heart rate 84 /min MD Eliel Hurd Work Phone: [facility] 06-18-2022 10:07-0500 Respiratory rate 20 /min MD Eliel Hurd Work Phone: [facility] 06-18-2022 10:07-0500 SaO2% (BldA) [Mass fraction] 100 % MD Eliel Hurd Work Phone: [facility] 06-18-2022 10:07-0500 Systolic blood pressure 117 mm[Hg] MD Eliel Hurd Work Phone: [facility] 03-19-2022 10:00-0400 Body temperature 98.8 [degF] MD Eliel Hurd Work Phone: [facility] 03-19-2022 10:00-0400 Body weight 90.26 kg MD Eliel Hurd Work Phone: [facility] 03-19-2022 10:00-0400 Diastolic blood pressure 86 mm[Hg] MD Eliel Hurd Work Phone: [facility] 03-19-2022 10:00-0400 Heart rate 68 /min MD Eliel Hurd Work Phone: [facility] 03-19-2022 10:00-0400 Respiratory rate 18 /min MD Eliel Hurd Work Phone: [facility] 03-19-2022 10:00-0400 SaO2% (BldA) [Mass fraction] 98 % MD Eliel Hurd Work Phone: [facility] 03-19-2022 10:00-0400 Systolic blood pressure 125 mm[Hg] MD Eliel Hurd Work Phone: [facility] 02-17-2022 16:00-0400 Body temperature 97.5 [degF] Diana Cashen DO Work Phone: [facility] 02-17-2022 16:00-0400 Diastolic blood pressure 71 mm[Hg] Diana Cashen DO Work Phone: [facility] 02-17-2022 16:00-0400 Heart rate 101 /min [facility] 02-17-2022 16:00-0400 Respiratory rate 23 /min Diana Cashen DO Work Phone: [facility] 02-17-2022 16:00-0400 SaO2% (BldA) [Mass fraction] 95 % Diana Cashen DO Work Phone: [facility] 02-17-2022 16:00-0400 Systolic blood pressure 134 mm[Hg] Diana Cashen DO Work Phone: [facility] 02-17-2022 07:21-0400 Body height 160 cm Diana Cashen DO Work Phone: [facility] 02-17-2022 07:21-0400 Body mass index (BMI) [Ratio] 34.05 kg/m2 Diana Shantal DO Work Phone: [facility] 02-17-2022 07:21-0400 Body weight 87.18 kg Dianasadie Murguia DO Work Phone: [facility] 01-15-2022 15:34-0400 Body height 160 cm Fahad Russell MD Work Phone: [facility] 01-15-2022 15:34-0400 Body temperature 98.1 [degF] Fahad Russell MD Work Phone: [facility] 01-15-2022 15:34-0400 Body weight 87.59 kg Fahad Russell MD Work Phone: [facility] 01-15-2022 15:34-0400 Diastolic blood pressure 86 mm[Hg] Fahad Russell MD Work Phone: [facility] 01-15-2022 15:34-0400 Heart rate 72 /min Fahad Russell MD Work Phone: [facility] 01-15-2022 15:34-0400 Systolic blood pressure 149 mm[Hg] Fahad Russell MD Work Phone: [facility] 09-15-2021 15:45-0500 Body height 160.02 cm Franco Stokes Other [employer] Other 09-15-2021 15:45-0500 Body mass index (BMI) [Ratio] 34.36 kg/m2 Franco Stokes Other [employer] Other 09-15-2021 15:45-0500 Body weight 88 kg Franco Stokes Other [employer] Other 07-08-2021 14:14-0500 Body height 160.02 cm MD Eliel Hurd Work Phone: [facility] Encounters Encounter Date Encounter Type Care Provider Facility Start: 06-23-2023 ambulatory Ismael R ANTONELLA Facility : [facility] Start: 05-04-2023 ambulatory Ismael BERMAN Facility:[facility] Start: 04-07-2023 End: 04-07-2023 ambulatory Eliel Hurd Facility:[facility] Start: 04-07-2023 End: 04-07-2023 ambulatory MD Eliel Hurd Work Phone: [facility] Work Phone: Start: 04-07-2023 End: 04-07-2023 Patient encounter procedure MD Eliel Hurd Work Phone: [facility]-Lab [address] Work Phone: Start: 02-15-2023 End: 02-16-2023 ambulatory Booker Lizarraga MD Facility:[facility] Start: 01-22-2023 ambulatory Ismael NILL Facility:[facility] Start: 01-11-2023 End: 01-12-2023 ambulatory Booker Lizarraga MD Facility:[facility] Start: 12-28-2022 ambulatory ANDRIUS ELHAM Faci lity:[facility] Start: 12-01-2022 ambulatory BRIEN KOEHLER Facility :[facility] Start: 11-25-2022 ambulatory Kallie Bernardo Facility:[facility] Start: 11-25-2022 End: 11-25-2022 ambulatory MD Eliel Hurd Work Phone: [facility] Work Phone: Start: 11-25-2022 End: 11-25-2022 Registered Recurring MD Eliel Hurd Work Phone: [facility] Work Phone: Start: 09-18-2022 End: 09-18-2022 ambulatory MD Eliel Hurd Work Phone: [facility] Work Phone: Start: 09-18-2022 End: 09-18-2022 Registered Recurring MD Eliel Hurd Work Phone: [facility] Work Phone: Start: 08-14-2022 End: 08-14-2022 ambulatory MD Eliel Hurd Work Phone: [facility] Work Phone: Start: 08-14-2022 End: 08-14-2022 Registered Recurring MD Eliel Hurd Work Phone: [facility] Work Phone: Start: 08-06-2022 End: 08-06-2022 ambulatory MD Eliel Hurd Work Phone: [facility] Work Phone: Start: 08-06-2022 End: 08-06-2022 Registered Recurring MD Eliel Hurd Work Phone: [facility] Work Phone: Start: 07-23-[address] DOCTOR STRINGER Facility :[facility] Start: 07-22-2022 End: 07-22-2022 ambulatory MD Eliel Hurd Work Phone: [facility] Work Phone: Start: 07-22-2022 End: 07-22-2022 Registered Recurring MD Eliel Hurd Work Phone: [facility] Work Phone: Start: 06-19-2022 End: 06-19-2022 ambulatory Miguelcarol Vickers Facility:[facility] Start: 06-19-2022 End: 06-19-2022 Patient encounter procedure MD Eliel Hurd Work Phone: [facility]-MRI [address] [place] Work Phone: Start: 06-18-2022 End: 06-18-2022 ambulatory MD Eliel Hurd Work Phone: [facility] Work Phone: Start: 06-18-2022 End: 06-18-2022 Registered Recurring MD Eliel Hurd Work Phone: [facility] Start: 04-16-2022 End: 04-16-2022 ambulatory MD Eliel Hurd Work Phone: [facility] Work Phone: Start: 04-16-2022 End: 04-16-2022 Registered Recurring MD Eliel Hurd Work Phone: [facility] Start: 04-16-2022 End: 04-16-2022 Discharged Recurring MD Eliel Hurd Work Phone: [facility]-Infusion Therapy - O/P Start: 04-14-2022 End: 04-15-[address] KRISTA ROBERTSON Facility:[facility] Start: 04-07-2022 End: 04-07-[address] CHIDI MATT . Facility:[facility] Start: 04-05-2022 Encounter for genera l adult medical examination without abnormal findings DR ELIEL HURD . [facility] Start: 2022 End: 04-01-2022 Encounter for general adult medical examination without abnormal findings DR ELIEL HURD . Facility:[facility] Start: 2022 End: 04-01-[address] ELIEL HURD . Facility:[facility] Start: 03-20-2022 Registered Recurring MD Eliel rogers Work Phone: [facility]-Infusion Therapy - O/P Start: 03-19-2022 End: 03-19-2022 Registered Recurring MD Eliel Hurd Work Phone: [facility] Start: 03-14-2022 End: 03-14-2022 ambulatory EARNEST HDZ Facility:[facility] Start: 03-12-2022 End: 03-12-2022 Registered Recurring MD Eliel Hurd Work Phone: [facility] Start: 02-18-2022 End: 02-19-2022 ambulatory [facility] Start: 02-17-2022 End: 02-20-2022 ambulatory [facility] Start: 02-17-2022 End: 02-17-2022 ambulatory [facility] Start: 02-17-2022 End: 02-19-2022 Subsequent hospital visit by physician Jackie Everett Room 1 [facility] Nuclear Medicine Comment on above: Malignant neoplasm o f right female breast, unspecified estrogen receptor status, unspecified site of breast (HCC) Start: 02-17-2022 End: 02-17-2022 Subsequent hospital visit by physician Diana Murguia DO Work Phone: [facility] Comment on above: Status post breast r econstruction (Primary Dx); Status post breast lumpectomy; Abnormal mammogram; Malignant neoplasm of right female breast, unspecified estrogen receptor status, unspecified site of breast (HCC) Start: 02-04-2022 End: 02-07-20[facility] Start: 02-04-2022 End: 02-06-2022 Subsequent hospital visit by physician Lesly Su Mri [facility] MRI Comment on above: Malignant neoplasm o f right female breast, unspecified estrogen receptor status, unspecified site of breast (HCC) Start: 01-29-2022 Telephone encounter Xiomara tolliver MD Work Phone: [facility] Comment on above: Appointment Start: 01-15-2022 End: 01-15-2022 Patient encounter procedure Fahad Russell MD Work Phone: Plastic Surgery Comment on above: History of breast ca ncer (Primary Dx); Breast asymmetry following reconstructive surgery Start: 01-15-2022 Telephone encounter Xiomara tolliver MD Work Phone: [facility] Comment on above: Appointment Start: 09-15-2021 End: 09-15-2021 ambulatory Franco Stokes Other [facility] [employer] Other Start: 09-15-2021 Office outpatient ne w 30 minutes Franco Stokes [facility] Neurosurgery Start: 05-27-1998 End: 05-27-1998 Patient encounter procedure Conversion José Meyer [facility] Start: 05-27-1998 Results Only Conversion José Meyer [facility] Procedures Date Procedure Procedure Detail Performing Clinician Start: 06-19-2022 MRI of cervical spin e without contrast MD Eliel Hurd Work Phone: Start: 02-17-2022 Radiological examina tion surgical specimen Diana P Cashen DO Work Phone: Start: 02-17-2022 Lymphatics & lymph n odes imaging Diana P Cashen DO Work Phone: Start: 02-17-2022 Perq device placemen t breast loc 1st les w/gdnce Diana P Cashen DO Work Phone: Start: 02-04-2022 MRI w/o fol w/cont, breast, Diana P Cashen DO Work Phone: Start: 10-07-2021 MRI of bilateral corinna asts with contrast MD Eliel Hurd Work Phone: Start: 08-18-2021 MRI of lumbar spine with contrast MD Eliel Hurd Work Phone: Start: 08-18-2021 Plain X-ray of left hip MD Eliel Hurd Work Phone: Start: 07-16-2021 Computed tomography of abdomen and pelvis with contrast MD Eliel Hurd Work Phone: Start: 07-16-2021 CT of thorax with contrast MD Eliel Hurd Work Phone: Start: 04-22-2021 Mammography Xiomara bolanos MD Work Phone: Start: 05-27-1998 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 José Ap History of mastectomy Status pos t breast lumpectomy Diana Murguia DO Work Phone: Plan of Treatment Date Care Activity Detail Author Start: 04-07-2023 [facility] Start: 09-04-2022 End: 09-04-2022 [facility] Start: 09-03-2022 [facility] Start: 08-07-2022 [facility] Start: 08-05-2022 [facility] Start: 07-22-2022 Adrenocorticotropic hormone measurement [facility] Start: 07-22-2022 [facility] Start: 07-09-2022 [facility] Start: 06-19-2022 [facility] Start: 06-18-2022 [facility] Start: 06-17-2022 Adrenocorticotropic hormone measurement [facility] Start: 05-28-2022 [facility] Start: 04-22-2022 Mammography MAMMOGRAM [facility] Start: 03-20-2022 Registered Recurring Registered Recurring [facility]-Infusion Therapy - O/P Start: 03-19-2022 Influenza vaccination [facility] Start: 03-04-2022 End: 03-04-2022 Patient encounter procedure 03/04/2022 Office Visit [place] [id number] [address] [facility] Start: 03-04-2022 End: 03-04-2022 Patient encounter procedure 03/04/2022 Office Visit General Surgery Diana Murguia, DO [address] [address] [facility] Start: 02-17-2022 End: 02-17-2022 Mast modf rad w/ax lymph nod w/wo pect/gonzalo min BREAST MASTECTOMY RECONSTRUCTION Malignant neoplasm of right female breast, unspecified estrogen receptor status, unspecified site of breast (HCC) 02/17/2022 10:22 AM [facility] Start: 02-17-2022 End: 02-17-2022 Mastectomy partial BREAST LUMPECTOMY PARTIAL MASTECTOMY Malignant neoplasm of right female breast, unspecified estrogen receptor status, unspecified site of breast (HCC) 02/17/2022 10:22 AM [facility] Start: 02-09-2022 End: 02-09-2022 Patient encounter procedure 02/09/2022 Office Visit General Surgery Diana Murguia, DO [address] [facility] [address] [place] [address] [facility] Start: 12-17-2021 [facility] Start: 11-26-2021 [facility] Start: 11-05-2021 [facility] Start: 10-15-2021 [facility] Start: 09-30-2021 [facility] Start: 09-24-2021 [facility] Start: 09-24-2021 [facility] Start: 09-17-2021 End: 09-17-2021 [facility] Start: 09-16-2021 End: 09-16-2021 [facility] Start: 09-11-2021 End: 09-11-2021 [facility] Start: 09-04-2021 [facility] Start: 08-27-2021 [facility] Start: 08-20-2021 [facility] Start: 08-14-2021 [facility] Start: 08-13-2021 End: 08-14-2021 [facility] Start: 07-30-2021 [facility] Start: 07-28-2021 [facility] Start: 07-21-2021 End: 07-22-2021 [facility] Start: 01-18-2021 COVID-19 VACCINE (3 - Booster for Moderna series) COVID-19 VACCINE (3 - Booster for Moderna series) [facility] Start: 2017 [facility]id [facility]ids [facility] Start: 2012 Diabetes screen Diabetes screen [facility] Start: 2007 HPV TESTING HPV TESTING [facility] Start: 2007 Screening for malignant neoplasm of cervix [email or web address] Start: 1998 PAP TESTING PAP TESTING [facility] Start: 1998 Screening for malignant neoplasm of cervix Pap smear [email or web address] Start: 1996 DTaP/Tdap/Td vaccine (1 - Tdap) DTaP/Tdap/Td vaccine (1 - Tdap) [facility] Start: 1996 Urine microalbumin profile DTAP,TDAP,TD (1 - Tdap) [facility] Start: 1995 HEPATITIS C SCREENING HEPATITIS C SCREENING [facility] Start: 1995 Hepatitis C screening Hepatitis C screen [facility] Start: 1995 HIV SCREENING HIV SCREENING [facility] Start: 1992 HIV screening HIV screen [email or web address] Start: 1989 Adult depression screening assessment [facility] Start: 1989 Depression Screen Depression [facility] Start: 1977 COVID-19 Vaccine (#1) COVID-19 Vaccine (#1) [facility] Adrenocorticotropic hormone measurement [facility] Work Phone: Adrenocorticotropic hormone measurement [facility] Adrenocorticotropic hormone measurement [facility] Adrenocorticotropic hormone measurement [facility] Adrenocorticotropic hormone measurement [facility] Adrenocorticotropic hormone measurement [facility] Basophils [#/volume] in Blood by Automated count [facility] Basophils/100 leukoc ytes in Blood by Automated count [facility] Comprehensive metabo lic 1999 panel - Serum or Plasma [facility] Work Phone: Comprehensive metabo lic 1999 panel - Serum or Plasma [facility] Comprehensive metabo lic 1999 panel - Serum or Plasma [facility] Comprehensive metabo lic 1999 panel - Serum or Plasma [facility] Comprehensive metabo lic 1999 panel - Serum or Plasma [facility] Comprehensive metabo lic 1999 panel - Serum or Plasma [facility] Comprehensive metabo lic 1999 panel - Serum or Plasma [facility] Comprehensive metabo lic 1999 panel - Serum or Plasma [facility] Comprehensive metabo lic 1999 panel - Serum or Plasma [facility] Cortisol [Mass/volum e] in Serum or Plasma [facility] Work Phone: Cortisol [Mass/volum e] in Serum or Plasma [facility] Cortisol [Mass/volum e] in Serum or Plasma [facility] Cortisol [Mass/volum e] in Serum or Plasma [facility] Cortisol [Mass/volum e] in Serum or Plasma [facility] Cortisol [Mass/volum e] in Serum or Plasma [facility] CT Head WO and W contrast IV [facility] Work Phone: CT Head WO and W contrast IV [facility] Eosinophils [#/volum e] in Blood [facility] Eosinophils/100 leuk ocytes in Blood by Automated count [facility] Erythrocyte distribu tion width [Ratio] by Automated count [facility] Erythrocytes [#/volu me] in Blood [facility] Hematocrit [Volume F raction] of Blood [facility] Hemoglobin [Mass/vol ume] in Blood [facility] End: 02-17-2022 INITIATE PACU OXYGEN THERAPY PROTOCOL Initiate PACU Oxygen Therapy Protocol Respiratory Care Routine Continuous until discontinued starting 02/17/2022 [employer] Work Phone: Comment on above: Continuous until discontinued starting 0 02/17/2022 Leukocytes [#/volume ] corrected for nucleated erythrocytes in Blood by Automated coun [facility] Leukocytes [#/volume ] in Blood [facility] Lymphocytes [#/volum e] in Blood by Automated count [facility] Lymphocytes/100 leuk ocytes in Blood by Automated count [facility] End: 02-17-2022 WILLIE NEEDLE LOCALIZATION RIGHT WILLIE NEEDLE LOCALIZATION RIGHT Imaging Routine Abnormal mammogram Once for 1 Occurrences starting 02/17/2022 until 02/17/2022 [employer] Work Phone: Comment on above: Once for 1 Occurrences starting 02/18/20 until 02/17/2022 MCH [Entitic mass] b y Automated count [facility] MCHC [Mass/volume] b y Automated count [facility] MCV [Entitic volume] by Automated count [facility] MG Breast - bilatera l Diagnostic [facility] Monocytes [#/volume] in Blood by Automated count [facility] Monocytes/100 leukoc ytes in Blood by Automated count [facility] Neutrophils [#/volum e] in Blood by Automated count [facility] Neutrophils/100 leuk ocytes in Blood by Automated count [facility] Nucleated erythrocyt es [Presence] in Blood by Automated count [facility] Oxygen therapy [Mini mum Data Set] Initiate Oxygen Therapy Protocol Respiratory Care Routine Daily until discontinued starting 02/17/2022 [employer] Work Phone: Comment on above: Daily until discontinued starting 2021 Platelet mean volume [Entitic volume] in Blood by Automated count [facility] Platelets [#/volume] in Blood [facility] Surgical Pathology Surgical Path ology Lab Routine Malignant neoplasm of right female breast, unspecified estrogen receptor status, unspecified site of breast (HCC) Release Upon Ordering for 1 Occurrences starting 02/17/2022 [employer] Phone: Comment on above: Release Upon Ordering for 1 Occurrences starting 02/17/2022 End: 02-17-2022 SURGICAL PATHOLOGY REPORT SURGICAL PATHOLOGY REPORT Lab Routine Once for 1 Occurrences starting 02/17/2022 until 02/17/2022 [employer] Phone: Comment on above: Once for 1 Occurrences starting 02/18/20 22 until 02/17/2022 Thyrotropin [Units/v olume] in Serum or Plasma [facility] Work Phone: Thyrotropin [Units/v olume] in Serum or Plasma [facility] Thyrotropin [Units/v olume] in Serum or Plasma [facility] Thyrotropin [Units/v olume] in Serum or Plasma [facility] Thyrotropin [Units/v olume] in Serum or Plasma [facility] Thyrotropin [Units/v olume] in Serum or Plasma [facility] Thyroxine (T4) free [Mass/volume] in Serum or Plasma [facility] Work Phone: Thyroxine (T4) free [Mass/volume] in Serum or Plasma [facility] Thyroxine (T4) free [Mass/volume] in Serum or Plasma [facility] Thyroxine (T4) free [Mass/volume] in Serum or Plasma [facility] Thyroxine (T4) free [Mass/volume] in Serum or Plasma [facility] Thyroxine (T4) free [Mass/volume] in Serum or Plasma [facility] Payers Date Payer Category Payer Unknown [id number] 2022 Unknown 2021 Unknown MMO MMO [employer] [id number] 2021-Present [phone] [address] [place] [address] O [id number] 2021 Self-pay [id number] 2021 Unknown [id number] 2019 Unknown [id number] [id number] 1977 Unknown [id number] 2.16.840.1.801700.3.579.2.177 1977 Unknown [id number] 2.16.840.1.139869.3.579.2.177 1977 Unknown [id number] 2.16.840.1.043623.3.579.2.175 1977 Unknown [id number] 2.16.840.1.531537.3.579.2.175 1977 Unknown [id number] 2.16.840.1.898266.3.579.2.593 1977 Unknown [id number] 2.16.840.1.665836.3.579.2.593 1977 Unknown [id number] 2.16840.1.309427.3.579.2.593 1977 Unknown [id number] 2.16840.1.917851.3.579.2.593 1977 Unknown [id number] 2.840.1.222783.3.579.2.593 1977 Unknown [id number] 2.840.1.058199.3.579.2.593 1977 Unknown [id number] 2.840.1.188628.3.579.2.593 1977 Unknown [id number] 2.840.1.766970.3.579.2.593 1977 Unknown [id number] 2.840.1.350072.3.579.2.196 1977 Unknown [id number] 2.840.1.893839.3.579.2.196 1977 Unknown [id number] .840.1.977833.3.579.2.727 Unknown HCAP/HFA/FAP Active [id number] Unknown [id number] .840.1.443915.3.579.2.531 Unknown [id number] 2.840.1.793895.3.579.2.531 Unknown [id number] 2.16840.1.362780.3.579.2.531 Social History Date Type Detail Facility Tobacco smoking status NHIS Unknown if ever smoked [facility] Start: 1975 Sex Assigned At Not on file [place] Sex Assigned At Sex Assigned At [facility] [employer] Other Start: 01-15-2022 End: 11-25-2022 Tobacco smoking status NHIS Ex-smoker [facility] Start: 01-15-2022 Tobacco use and exposure Smokeless tobacco non-user [facility] Start: 1975 Sex Assigned At Female [facility] [place] Start: 01-13-2022 End: 02-17-2022 Exposure to SARS-CoV-2 (event) Not sure [facility] History of tobacco use Current smoker [facility] Phone: Start: 02-04-2022 Tobacco use and exposure Former smokeless tobacco user [employer] [facility]: Start: 02-17-2022 End: 02-18-2022 Alcohol intake Lifetime non-drinker (finding) [employer] [facility]: Clinical Notes 07-08-2021 to 09-19-2022 Note Date & Type Note Facility 09-19-2022 Progress note Note Date/Time September 18, 2022 1:44pm [facility] [place] [address] Hem/Onc Follow Up Note - OP Signed Patient: Tenisha Hancock MR#: [id number] : 1975 Acct:[id number] Age/Sex: 47 / F Type: REG RCR Copies to: MD Eliel Arteaga MD~ Subjective Date/Time of Service: Date of Service: 09/18/2022 Time of Service: 13:43 Chief Complaint: Patient is here today for a 2 week follow up visit for breast cancer. She saw Dr Elizabeth Pérez MD HPI: 09/18/2022: Rachel had an endocrinology consult with Dr. Pérez on 09/16/2022. He recommended changing to hydrocortisone 20mg am/10mg pm which she started yesterday with stable fatigue. She is to complete 6 weeks on hydrocortisone, then he plans to test her ACTH and cortisol off hydrocortisone. Arthralgias andmyalgias have largely resolved. We will see her in mid to late October after her endocrinology followup and determine whether she is able to resume pembrolizumabat that time or continue observation. 30 min moderate complexity to review endocrinology recommendations. 09/04/2022: Rachel is here for 3 week followup on pembrolizumab. She had adrenal insufficiency and immunotherapy-related arthralgia in 06/2022. Therapy was held with improved fatigue and arthralgias after full dose steroids. Labs last week showed recurrent adrenal insufficiency with undetectable cortisol and low ACTH. She also has increased TSH and I will hold her pembrolizumab again and refer to endocrinology for adrenal insufficiency or possibly hypopituitarism. Will resume higher dose Prednisone 40mg daily, then decrease by 10mg each week and add levothyroxine 50mcg daily. Will f/u endocrinology consult in 2 weeks. Moderate complexity 35 minute f/u visit. 08/14/2022: Rachel presents in follow-up for her breast cancer on pembrolizumab.She maintains on 10mg prednisone daily and states her symptoms were definitely improved with her last treatment. She notes fatigue and slept quite a bit still thru last weekend, but has felt more energy this week. She notes her body aches were much less severe but still present. Otherwise she denies new complaints. She would like to continue with treatment for now and follow-up for another tox check after next cycle of pembro to ensure her symptoms continue to improve and don't worsen again after next cycle. 08/06/2022: Rachel is here for 2-week follow-up. She notes that she feels much improved since starting full dose steroids. She is now tapered down to 20 mg daily starting tomorrow. We discussed potential risks and benefits of resuming immunotherapy with pembrolizumab maintenance x1 year. Since she has immunotherapy related adrenal insufficiency, we will complete the next week of prednisone at 20 mg daily, then maintain prednisone dose at 10 mg daily and she wishes to resume pembrolizumab maintenance starting 08/13/2022. We will coordinate follow-up 1 week later with nurse practitioner to review side effects. If well-tolerated she will continue current dosing and follow-up with me at 3 months for exam. Moderate complexity 30-minute follow-up to review symptoms on prednisone taper and coordinate resuming immunotherapy. 07/23/2022: Rachel is here for 1 month follow-up after holding Pembroluzumab dueto multiple suspected immunotherapy related symptoms. She previously was havingdiffuse body aches with difficulty ambulating due to joint pain. Her joint painis now pretty much localized to her wrists and she is ambulating without assistance, however she still has profound fatigue. She was also noted to have persistently low cortisol level of 2.6 with ACTH <1.5 despite compliance with replacement dose hydrocortisone 20 mg a.m., 10 mg p.m. she sometimes notes that she forgets to take the evening dose. CBC shows stable hemoglobin 11 with normal white count and platelets. Sodium mildly low at 135 but otherwise normalelectrolytes and liver function test. TSH and free T4 normal. I recommended increasing steroid dose to prednisone 60 mg daily for 1 week, then 40 mg daily for 1 week then 20 mg daily for 1 week, then 10 mg daily for 1 week with reassessment in 1 month. We will continue to hold Pembroluzumab immunotherapy and reevaluate whether she is able to continue adjuvant immunotherapy or observation only. This is a moderate complexity visit over 30 minutes for review of symptoms with immunotherapy related adrenal insufficiency and myalgias. 06/19/2022: Rachel completed radiation therapy on 06/16/2022: continued nausea with generalized weakness and diffuse body aches. She has pain over joints, pain rising to stand and ambulating. Labs reveal low cortisol and normal ACTH suggesting immunotherapy related adrenal insufficiency, thyroid function normal. We discussed holding pembrolizumab today and starting replacement dose hydrocortisone 20mg am/10mg pm. 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 We may give full dose slow prednisone taper if continued arthralgias on immunotherapy. Will determine whether she continues further pembrolizumab if persistent arthralgia. High complexity 45 minute visit to manage immunotherapy related adrenal insufficiency and arthralgia. 03/12/2022: Rachel is here following her needle localized lumpectomy with oncoplastic reconstruction of right breast with right mastopexy on 02/17/2022 by Drs. Saunders/Drew ([facility]). 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 DCIS had estrogen receptor 5% and progesterone receptor negative therefore she is not a candidate for adjuvant hormonal therapy. -- Prior to neoadjuvant therapy the patient's clinical stage was T2N0 (baseline tumor about 2.5 cm by exam). Pathologic stage is ypTis pN0 pMx (3.5mm). She ishealing well with mild residual pain at sites but no drainage from incisions which are healing well. Due to in situ disease only, she does not require further chemotherapy and we will send her to radiation to discuss radiation for her in situ disease. As per the KEYNOTE-522 study, the patient will receive 9 additional cycles of pembrolizumab every 3 weeks following her radiation therapythen observation. The patient expresses understanding and will return after radiation oncology evaluation to and I will see her for follow-up cycle 2. High complexity 45-minute visit for review of outside operative notes and final pathology after right lumpectomy/reconstruction. 12/24/2021: Rachel presents after completing her 4th and last cycle of Adriamycin, Cytoxan and Pembrolizumab. She notes some lingering fatigue and nausea without vomiting. She also notes a few days of diarrhea with some improvement today. Otherwise she does not admit to any other complaints. Her labs are reviewed and stable overall, no significant cytopenias. She is unsure of her next steps and has a lot of questions related to surgical options as wellas if she will need radiation therapy. She met with Dr. Simons and has an appointment scheduled at [facility] to discuss josep flap surgery as well. We have advised her to follow-up with Dr. Reza to review her options and answer herquestions related to timing with the surgeon and plastic surgeon. We reviewed lumpectomy vs. mastectomy and the role radiation plays as well. We will plan to follow-up 2 weeks postop, and she will call us with her surgery date once decisions have been made. 12/03/2021: Rachel presents for cycle 3, week 2 toxicity check for Adriamycin/Cytoxan/Pembrolizumab. She continues to note fatigue and nausea but has not had any further neutropenia since dose reduction. We are coordinating evaluation by Dr. Simons with plastic surgery as well as Dr. Reza for planned end of therapy with last cycle due on December 17, 2021. The patient is undecided whether she would like to proceed with breast conservation option versus immediate reconstruction with mastectomy. Dr. Simons was contacted to arrange initial evaluation and she may see nurse practitioner for follow-up 1 week after her last cycle of Adriamycin/Cytoxan/Pembrolizumab. I will see her about 2 weeks postoperatively from her definitive therapy to review pathology and any further therapy options at that point. 11/12/2021: Rachel is here for cycle 2, week 2 toxicity check for Adriamycin/Cytoxan/Pembrolizumab. She was given 20% dose reduction Adriamycin and Cytoxan due to neutropenia last cycle and notes that she felt even more fatigued this cycle than prior cycle. She did not have any oral mucositis and met with Dr. Reza but he was unable to review her prior films. She did notrequire any further interventions since surgical clip was placed in the past. She still is undecided whether she will proceed with lumpectomy or mastectomy. I will refer her back for surgical evaluation after completion of her 4 cycles of Adriamycin/Cytoxan/Pembrolizumab. Currently she does not have any cytopeniasnoted recommend proceeding with same dose of therapy. 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 Next follow-up in 3 weeks fortoxicity check or sooner as needed. 10/22/2021: Rachel is here for toxicity check after cycle 1 of Adriamycin/Cytoxan/Pembrolizumab 1 week ago. She notes that she had increased fatigue and persistent nausea and her total white blood cell count is 1200 with ANC 100. No fever, chills, night sweats, or signs or symptoms of infection. Wediscussed dose reduction by 20% due to her neutropenia. Baseline echocardiogramprior to Adriamycin and Cytoxan was 55 to 60%. MRI of the breast was reviewed in comparison to her initial MRI in May 2022 that shows some progression ofher primary breast mass and one of the satellite lesions is no longer identified. Patient does note that after her breast MRI she did undergo placement of clip at the site of her prior lesions. She wanted to transfer her care for surgical evaluation by Dr. Reza and I will place consult for him to evaluate her to plan surgery following 3 more cycles of Adriamycin/Cytoxan/Pembroluzumab. Otherwise she will follow-up for next cycle of chemotherapy in 2 weeks and toxicity visit the following week after 20% dose reduction of both Adriamycin and Cytoxan. 10/08/2021: Rachel is here for followup after completing 4 cycles of neoadjuvant carboplatin AUC 5 with weekly paclitaxel 80 mg/m? and every 3-week Pembroluzumab 200 mg. She is on her last dose of 12-week paclitaxel today. We ordered an MRI on her and reviewed the images with her in clinic today but finalreport is still pending radiology read. I reviewed her case with breast medical oncologist Dr. Vinh Bucio who agreed that patient should likely continue on Adriamycin/Cytoxan/Pembrolizumab every 3 weeks for 4 more cycles as previously written. She had a baseline echocardiogram in May but we will repeat this prior to starting her next round of chemo in 1 week. Her next follow-up for toxicity visit will be cycle 1 week 2 and we will coordinate surgery evaluation based on her breast MRI to review her response to initial therapy. Symptoms are otherwise stable on weekly paclitaxel with minimal neuropathy. I contacted radiology and breast MRI should be read early next week. 09/24/2021: Rachel is a 46-year-old lady who is currently cycle 4-day 1 for neoadjuvant carboplatin AUC 5 (dose adjusted for adjusted body weight), weekly paclitaxel 80 mg/m?, and every 3-week Pembrolizumab 200 mg. She has tolerated chemotherapy reasonably well with nausea and IBS symptoms but she has not had any significant neutropenia. She has not noticed any clinical difference in herbreast exam, although in comparison to prior notes there is a 9 discrete area onexam 3 to 4 cm of thickening in the right 10:00 to 11:00 area. There is no skindimpling or nipple discharge or retraction. I do not feel any palpable masses in the axilla. Although the patient previously saw Dr. Red at diagnosis, she is uncertain of the plan for surgery. Since she had negative genetic testing it is unlikely that she will have bilateral mastectomy and reconstruction, however we can coordinate her evaluation by surgery locally if she wishes. --Otherwise we decided to proceed with her fourth cycle of carboplatin/paclitaxel/Pembrolizumab today. She had a baseline MRI and I will schedule repeat MRI after her fourth cycle and reevaluate her response to disease. Originally Dr. Phoenix had consented her to proceed with Adriamycin and Cytoxan with Pembrolizumab for 4 more cycles following her carboplatin/paclitaxel/Pembrolizumab. I will review this with tertiary breast medical oncologist Dr. Vinh Bucio to determine whether she should proceed with further therapy or be evaluated for surgery. Patient will follow up with me in approximately 2 weeks after her MRI to review subsequent plan of therapy. Previous notes from Dr. Phoenix, last seen 08/18/2021: Tenisha presents August 20, 2021 for cycle 2, day 7 of neoadjuvant chemotherapy for triple negative breast cancer. She does have some progressive alopecia. No nausea vomiting diarrhea. The breast mass in the right breast is not as evidence with deep palpation. Youcan still feel it but it appears to be smaller somewhat. In the right axilla there is a very small pinpoint hard nodule fairly superficial. Her tolerance to therapy to date has been overall good. BRCA testing was done through [employer] and is negative. She does have left foot numbness. MRI was done of the lumbar spine and does show multiple areas of degenerative disc disease. The patient has a known history of problem both in her lumbar spine and what appears in her cervical spine. I will refer her to Dr. Castle for consideration of kyphoplasty or other. I willdefer to his impression and recommendations. MOHEGAN: This is a now 47 year old female, recently diagnosed with triple negative right breast cancer; currently undergoing neoadjuvant pembrolizumab, carboplatin AUC 4and weekly paclitaxel x6 cycles, which commenced: 07/22/2021. This is a 46-year-old female who works at [employer] with triple negative breast cancer, referred for neoadjuvant chemotherapy. Mammogramon on April 22, 2021 showed 3 new focal masses with the largest measuring 2 cm in size in the right breast. 2 additional lesions measuring 1 cm and a second 0.9 cm were also seen. The patient was referred for biopsy. Needle biopsy showed triple negative breast cancer, ER negative, LA negative, and H ER 2 -. The patient was referred to Dr. Ismael Red for Otxwgj-n-Gjcw which she has had placed. She has seen my colleague Dr. Smith at the [facility] recommended neoadjuvant chemotherapy and immunotherapy. Because of insurance reasons, she will be getting her treatment here at [facility]. She has had echocardiography as well. According the patient an MRI was obtained prior to neoadjuvant therapy while she was at [facility] we are requesting this prior study. She does have a palpable breast mass. It is in the lower mid quadrant of the right breast. Mammogram on on April 22, 2021 showed 3 new focal masses with the largest measuring 2 cm in size in the right breast. 2 additional lesions measuring 1 cmand a second 0.9 cm were also seen. The patient was referred for biopsy. Needle biopsy showed triple negative breast cancer, ER negative, LA negative, and HER 2 -. The patient was referred to Dr. Ismael Red for Raresf-o-Toom which she has had placed. She has seen my colleague Dr. Smith at the [facility] recommended neoadjuvant chemotherapy and immunotherapy. Because of insurance reasons, she will be getting her treatment here at [facility]. She has had echocardiography as well. PET/CT scan was denied by insurance and she underwent CT scan of the chest/abdomen/pelvis on 07/16/2021 which showed no obvious evidence of distant metastatic disease. As noted above, Cycle 1, Day 1 (Carboplatin/Paclitaxel/Pembrolizumab) commenced 07/22/2021 and this was well tolerated. The patient went home that evening and began to feel flushed, general malaise, etc. She subsequently tested positive for COVID - 19 per PCR the following day, 07/23/2021. Her symptoms were quite mild; however, next cycle of chemotherapy was pushed out 2 days and she is here today for Cycle 1, Day 8 of single agent Paclitaxel. She does have a palpable breast mass in the lower mid quadrant of the right breast; she was concerned about a lump under her right axilla but upon exam wehad trouble locating a discrete nodule or lymph node. Otherwise, her only complaint is continued low back pain with radiculopathy involving the left groin/hip and left lower extremity with associated numbness in left foot. She has known neuroma of the left foot and was in the process of being worked up by pain management (Dr. Monique) for lumbar pain; radiculopathy. - Summary of Therapies Summary of Therapies: 1. Neoadjuvant Carboplatin AUC 5-day 1, Pembrolizumab 200 mg day 1, Paclitaxel 80 mg meter squared weekly each 21-day cycle for planned 4 cycles: started Cycle1, Day 1: 07/22/2021, cycle 4 09/24/2021 --Plan 10/15/2021: Start Pembrolizumab 200 mg day 1, doxorubicin 60 mg/m? day 1,and cyclophosphamide 600 mg/m? day 1 every 21 days x 4 cycles followed by adjuvant Pembrolizumab 200 mg IV every 21 days x 9 cycles --Original breast MRI obtained from [facility] from May 2021, follow-up breast MRI performed 10/07/2021 for initial response to therapy. Patient requested an opinion from Dr. Reza for planning breast surgery options based on MRI (she does note that prior biopsy clips were placed after her original MRI for further neoadjuvant therapy). -- 20% dose reduction doxorubicin and cyclophosphamide cycle 2 for neutropenia. Last dose of Adriamycin, cyclophosphamide, Pembrolizumab due 12/17/2021. End of therapy echo may be ordered preoperatively in late December. 2. 02/17/2022 at [facility], Drs. Saunders/Shantal: needle localized lumpectomy with oncoplastic reconstruction of right breast with right mastopexy 3. Adjuvant radiation: Right SCV axilla 5000 cGy 05/04-06/07/22 25 fractions over 34 elapsed days. Right breast 5000 cGy 05/04-06/07/22 25 fractions over 34elapsed days. Cavity boost 1000 cGy 06/08-06/16/2022 5 fractions over 8 days. 4. Resumed Immunotherapy Pembrolizumab 200 mg IV every 3 weeks for 9 more cycles--first/only postop dose was 05/28/2022. Stopped 06/18/2022 after 1 postopdose due to immunotherapy related arthralgias/myalgia and adrenal insufficiency. No hormonal therapy indicated for triple negative disease. Continue to hold Pembroluzumab follow-up 07/23/2022 -- Resumed Pembrolizumab 200 mg IV every 3 weeks on 08/14/2022, maintaining prednisone 10 mg daily for immunotherapy related myalgias and adrenal insufficiency. -- Held dose 09/04/2022, resumed prednisone 40mg po daily with addition of levothyroxine 50mcg daily. -- Endocrinology consult 09/16/2022--he placed her back on hydrocortisone 20mg am/10mg pm--6 weeks on replacement dose. Continue to hold Pembrolizumab. ROS Details: All systems reviewed & no additional complaints except as documented Subjective/ROS - Narrative: CONSTITUTIONAL: Improvement of generalized fatigue (now resumed on replacement dose hydrocortisone), negative for fever or night sweats. Still able to performactivities of daily living. HEAD AND NECK: Negative for changes in hearing and vision. Negative for mouth ulcers, nasal congestion and nasal drainage. BREASTS: Status post right lumpectomy with oncoplastic reconstruction/right mastopexy well-healed incisions without tenderness to palpation. No lymphedema or axillary fullness right. Left breast and axilla unremarkable. PULMONARY: Negative for chest pain, cough and dyspnea. CARDIOVASCULAR: Negative for claudication and irregular heartbeat/palpitations. GASTROINTESTINAL: Negative for abdominal pain, constipation, decreased appetite,diarrhea. Denies nausea/vomiting on Prednisone GENITOURINARY: Negative for dysuria and hematuria. ENDOCRINE: Negative for cold intolerance and heat intolerance. Positive for fatigue due to immunotherapy related adrenal insufficiency--started hydrocortisone 20 mg a.m./10 mg p.m. at 06/18/2022 visit--changed to higher dose prednisone 07/23 visit). Significantly improved myalgias at 08/06/2022 visit but worse at 09/04 visit after taper. Repeated Prednisone higher dose pending endocrinology consult. 09/16/2022: endocrinology placed back on hydrocortisone 20mg a.m./10 mg p.m. CENTRAL NERVOUS SYSTEM: Improvement of prior gait disturbance due to myalgia/arthralgia at 07/23 visit but still persistent bilateral wrist pain. Negative for headache. No significant motor neuropathy or focal deficits. PSYCHIATRIC: Negative for anxiety. Positive distress mood regarding recent symptoms. DERMATOLOGICAL: Negative for pruritus and rash. Negative for suspicious skin lesions. MUSCULOSKELETAL: Stable lumbar back pain. New generalized arthralgias and myalgias--noted at 06/18 visit, stopped immunotherapy for symptoms; resumed 08/13,held again 09/04. HEMATOLOGICAL: Negative for bleeding and easy bruising. Negative for history of transfusion or thromboembolic disease. Laboratories with cycle 1 AC Pembroluzumab showed neutropenia without fever. No neutropenia after dose reduction cycle 2. ALLERGY: Negative for environmental allergies and food allergies. PMFSH - History Attestation statement: The following information was validated with the patient. Source: Old Records Reviewed - Medical History Medical History: Medical History (Last Reviewed 09/18/22 @ 21:59 by Kallie Chang MD) Arthritis COVID-19 Headache High blood cholesterol - Surgical History Surgical History: Surgical History (Last Reviewed 09/18/22 @ 21:59 by Kallie Chang MD) History of breast biopsy right 05/26/2021 History of carpal tunnel release History of cholecystectomy History of foot surgery right - Family History Family History: Family History (Last Reviewed 09/18/22 @ 21:59 by Kallie Chang MD) Brother Lung cancer Father Cancer Mother COPD (chronic obstructive pulmonary disease) - Social History Smoking Status: Former smoker Tobacco Type: cigarettes Substance Use Type: None Home Medications & Allergies Allergies No Known Allergies Allergy (Verified 09/18/22 13:38) Home Medications [id number] 250 mg-250 mg-65 mg tablet (Excedrin Migraine) 1 tab PO Q4-6H PRN Headache 07/08/21 [History Confirmed 09/18/22] citalopram 20 mg tablet 20 mg PO DAILY 07/08/21 [History Confirmed 09/18/22] omeprazole 20 mg capsule,delayed release 20 mg PO DAILY 07/08/21 [History Confirmed 09/18/22] ondansetron 8 mg disintegrating tablet 8 mg PO Q8H #90 tabs 06/02/22 [Rx Confirmed 09/18/22] levothyroxine 50 mcg tablet (Synthroid) 50 mcg PO DAILY #30 tabs 09/04/22 [Rx Confirmed 09/18/22] hydrocortisone 20 mg tablet 20 mg PO DAILY 09/18/22 [History Confirmed 09/18/22] Objective - Height/Weight Height/Weight: Height 5 ft 3 in Weight 80.4 kg BSA for Today's Weight 1.85 - Vital Signs Vital Signs: 09/18/22 13:38 Temperature 98.0 F Pulse Rate [Left Brachial] 77 Respiratory Rate 16 Blood Pressure [Left Arm] 115/78 02 Sat by Pulse Oximetry 99 Oxygen Delivery Method Room Air - Pain Left Shoulder Pain Intensity: 5 Lower Back Pain Intensity: 4 Pain Location Body Site: Penis Generalized Left Pain Intensity: 5 Generalized Pain Intensity: 8 - Distress Screening Distress Screen Results: RN Distress Screening Start: 07/08/21 15:06 Freq: Q30D Status: Active Protocol: Document 09/04/22 13:16 LB (Rec: 09/04/22 13:17 LB [id number]) Distress Screening Distress Score: 9 Physical Concerns Pain,Trouble Sleeping Emotional Concerns Depression,Worry Distress Screening Total 9 Distress score of 4 or more discussed No with patient? Distress screening follow up: defer to patient navigator Physical Exam Narrative: GENERAL: Alert, pleasant, no acute distress, no longer noted to have hip pain with ambulating and ambulates independently. Exam deferred--see 09/04/2022 exam below HEENT: Oral mucosa is pink/moist; no lesions or exudate. Neck supple without adenopathy or thyromegaly. BREAST: Well-healed incisions from right lumpectomy with breast reconstruction/mastopexy. No masses left breast. No axillary fullness or tenderness. HEART: RRR; no murmurs/rubs or gallops; S1 and S2 normal. No edema. LUNGS: CTA bilaterally; no wheezes or crackles. Normal respiratory effort. ABDOMEN: Soft, non tender. BS present x 4 quadrants. No HSM. INTEGUMENTARY: Warm, dry; no skin rashes. LYMPHATICS: No lymphadenopathy appreciated. MUSCULOSKELETAL: No vertebral tenderness or step-off deformity. No palpable synovitis of joints. NEUROLOGICAL: Grossly intact, patient is alert and oriented x 3; stable gait, nofocal deficits. - ECOG Performance Status ECOG Score: 1 Results - Labs Labs: Diagram of Most Recent CBC and CMP 09/16/22 14:53 09/16/22 14:53 Labs - Last 7 Days 09/16/22 14:53: PHA Creatinine Clear 72.74, Sodium 134 L, Potassium 4.3, Chloride 102, Carbon Dioxide 23.1, Anion Gap 13.2, BUN 15, Creatinine 0.98, Est GFR ( Amer) > 60, Est GFR (Non-Af Amer) > 60, Glucose 176 H, Calcium 9.2,Total Bilirubin 0.6, AST 20, ALT 16, Alkaline Phosphatase 85, Total Protein 6.5,Albumin 3.7, Globulin 2.8, Albumin/Globulin Ratio 1.3 09/16/22 14:53: Corrected WBC 11.5, Uncorrected WBC Count 11.5, RBC 4.14, Hgb 12.5, Hct 38.3, MCV 92.4, MCH 30.2, MCHC 32.7, RDW 15.1, Plt Count 287, MPV 6.9,Neut % (Auto) 91.1, Lymph % (Auto) 6.2, [place] % (Auto) 2.3, Eos % (Auto) 0.1, Baso % (Auto) 0.3, Nucleat RBC Rel Count 0.1, Neut # (Auto) 10.4 H, Lymph # (Auto) 0.7 L, [place] # (Auto) 0.3, Eos # (Auto) 0.0, Baso # (Auto) 0.0 09/16/22 14:53: ACTH <1.5 L 09/16/22 14:53: Free T4 0.84, TSH 3rd Generation 0.51, Total Cortisol 3.7 - Impressions No new imaging for review. 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 Right lumpectomy/breast reconstruction/mastopexy 02/17/2022--small area of ductal carcinoma in situ 3.5 mm but no invasive disease. 5 lymph nodes were negative for carcinoma. (1) Breast cancer Qualifiers: Breast location: overlapping sites of breast Patient sex: female Laterality: right Patient is a now 47-year-old female presenting with 3 discernible masses by mammography (04/22/2021) with needle biopsy confirming triple negative breast cancer. She was initially see in consultation by Dr. Smith at [facility] in [place], [place]; however, due to insurance reasons the [facility]. In reviewing notes from her prior physician from 06/20/2021 she had 3 focal nodules with largest measuring 2 x 1.8 cm 6 o'clock position, 2 additional lesions measuring 1 x 0.7 cm and another 0.9 x 0.6 cm. BI-RADS spot compression view right breast showed persistent 2.4 x 2.2 cm partially obscured round mass with pleomorphic calcifications. She did have breast MRI prior to initiation of neoadjuvant therapy which I do not have records from this from [facility] in [place]. I am requesting this to evaluate her baseline study since transfer of care from Dr. Phoenix to myself. She also had reported normal baseline echo in May 2021. She commenced neoadjuvant Carboplatin/Paclitaxel/Pembrolizumab therapy on 07/22/2021; Our treatment plan will be pembrolizumab 200 mg IV every 3 weeks with weekly paclitaxel 80 mg/m? IV and q. 21 days carboplatin AUC 5 for 4 cycles. This treatment regimen is based on KEYNOTE 522 trial and is now standard of careand NCCN guidelines. After review of her MRI from outside hospital, I will repeat her breast MRI for new baseline here. If stable to responding disease wemay continue prior plan for followed by pembrolizumab every 3 weeks with Adriamycin and cyclophosphamide for 4 cycles. The patient would like reassessment by general surgery for surgical plan and we will determine whether she proceeds with mastectomy or lumpectomy based on his results. Baseline genetic testing returned negative from prior physicians at [facility]. BRCA testing negative Follow-up September is cycle 4 -day 1. Tolerance is overall good-- Proceed with cycle 4 with breast MRI prior to 2-week follow-up in comparison to baseline MRI. This will be useful in surgical planning. I am discussing her case with tertiary breast oncology Dr. Vinh Bucio to see if he concurs withthis plan. If decision is made to commence AC Pembroluzumab we will repeat her echocardiogram prior to this and obtain her prior echo results. --Physical exam may be showing some evidence of response with the lump in the right breast being not as conspicuous as compared to prior notes although it is unclear to evaluate by exam, therefore MRI is ordered. --My plan at this time will be to press on and continue our chemotherapy per plan. I will see her in 2 weeks. 10/08/2021: Patient is here for her last paclitaxel prior to changing agents for neoadjuvant therapy to Adriamycin/cyclophosphamide/pembrolizumab. She is due for follow-up echocardiogram prior to starting anthracycline. She had discussedpotentially changing surgeons to Dr. Reza and I contacted him regarding breast MRI for surgical planning. We will review her prior MRI from [facility] in May 2021 in comparison to most recent MRI (report pending). Of note outside MRI noted no biopsy clips in place and we may need to rebiopsy to place clips at sites of residual tumor masses prior to continuing further neoadjuvant therapy. We will coordinate a time for him to meet with the patientto discuss surgical options of lumpectomy versus mastectomy. Patient will commence her Adriamycin/cyclophosphamide/Pembrolizumab at 10/15/2021 and I will follow-up with her in early October for toxicity visit for tolerance. 10/22/2021: Change to Adriamycin/cyclophosphamide/Pembrolizumab with neutropenia noted but no fever. Echocardiogram at baseline was 55 to 60%. Other than nausea no other significant toxicities. MRI was reviewed and [facility] tumor board with Dr. Reza and he will be arranging evaluation for surgical options. Consultation was placed to him today. We willdose reduce Adriamycin and cyclophosphamide both by 20% due to her neutropenia. Otherwise may proceed with chemotherapy in 2 weeks he can follow-up in 3 weeks either with myself or nurse practitioner for toxicity review. 11/12/2021: Here for cycle 2-day 8 toxicity visit on now 20% dose reduced Adriamycin/cyclophosphamide/Pembrolizumab due to neutropenia without fever last cycle. Persistent fatigue and nausea without mouth ulcers. No neutropenia thiscycle. The patient met with Dr. Reza and will follow-up with her at end oftherapy. She is still not decided whether she would like to proceed with lumpectomy or mastectomy plus minus reconstruction. We will coordinate 3-week follow-up toxicity visit with nurse practitioner cycle 3-day 8--no dose reduction since she does not have any significant cytopenias. 12/03/2021: Here for cycle 3-day 8 toxicity visit on 20% dose reduced Adriamycin/cyclophosphamide/Pembrolizumab with no new toxicities. No cytopeniasare noted. I am coordinating plastic surgery consultation with Dr. Berny Simons prior to evaluation by Dr. Reza to determine surgical approach. She will have 1 more dose of chemotherapy due on 12/17/2021 and will follow-up with nurse practitioner 1 week following her chemo. She will require end of therapy echocardiogram in late December. I will see her in follow-up 2 weeks after her definitive surgery to review pathology and further plan for therapy/surveillance. Moderate complexity visit over 35 minutes for symptom review on chemotherapy, coordination with Dr. Simons and Dr. Reza of breast surgery for surgical plan. 12/24/2021: She is here for toxicity check after completion of 4 cycles of AC+Pembro. She has some lingering fatigue and nausea, but otherwise ok. Labs reviewed and ok. She will schedule follow-up with Dr. Reza to discuss surgical intervention and schedule surgery. We will plan for follow-up 2 weeks postop to discuss final pathology and next steps. She will call us with the scheduled surgery date. Her end of treatment ECHO is scheduled for 01/07/2022. 03/12/2022: Patient returns after right lumpectomy/breast reconstruction/mastopexy 02/17/2022 well-healed without complaints. 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 5lymph nodes were negative for carcinoma. We discussed referral to radiation oncology after she has well-healed, then she may resume pembrolizumab 200 mg IV every 3 weeks for 9 further cycles as per KEYNOTE 522. No hormonal therapy indicated due to triple negative breast cancer. I will see her in follow-up with immunotherapy labs adjuvant cycle 2-day 1 Pembrolizumab or sooner if new issues arise. High complexity visit over 45 minutes to review outside operativenotes, pathology, and to discuss adjuvant radiation and immunotherapy. 06/19/2022: Patient has now completed her adjuvant radiation therapy on 06/16/2022. She resumed her first postop dose of Pembrolizumab on 05/28/2022 and has had intractable arthralgias and myalgias. She is also has had nausea and vomiting and is noted to have cortisol level of 0.2 with normal ACTH. This is consistent with immunotherapy induced adrenal insufficiency. We will hold pembrolizumab today and start hydrocortisone 20 mg a.m./10 mg p.m. reassessed byNP in 1 week to see if arthralgia symptoms are improved. If she has persistent arthralgias and myalgias she may get full dose prednisone with slow taper (prednisone 60 mg x 1 week, 40 mg x 1 week, 20 mg x 1 week, 10 mg x 1 week). Ifarthralgias completely resolved with hydrocortisone therapy we may consider resuming Keytruda for remaining doses. Next follow-up with me will be in around6 weeks or sooner as needed. High complexity visit over 45 minutes to address new toxicities. 07/23/2022: As per HPI the patient has improvement of gait but still has persistent myalgias and arthralgias of bilateral wrists. Also has persistent nausea despite compliance with replacement dose hydrocortisone. Since she has persistent nausea and arthralgias/myalgias with persistently low fasting cortisol she will be treated with full dose prednisone with slow taper (prednisone 60 mg x 1 week, 40 mg x 1 week, 20 mg x 1 week, 10 mg x 1 week). Continue to hold Pembroluzumab and follow-up in about 1 month for symptom review(with nurse practitioner at that time). No evidence of recurrence on clinical exam. Moderate complexity 30-minute follow-up of immunotherapy related toxicities. 08/06/2022: Significant improvement of myalgias since higher dose prednisone dosing with taper. She completed her first 2 weeks and starts 20 mg daily x1 week tomorrow. Due to her adrenal insufficiency I will have her maintain prednisone 10 mg daily. After discussion of risks and benefits she wishes to resume Pembrolizumab on 08/13/2022 and will have toxicity follow-up with Nurse Practitioner the following week. The goal will be to complete 8 more cycles of adjuvant pembrolizumab every 3 weeks. I will see her in follow-up in 3 months for full exam and immunotherapy labs. Is a moderate complexity 35-minute follow-up of her symptoms on prednisone taper, decision to resume immunotherapy. 08/21/2022: She had improvement in her myalgias and fatigue with addition of steroids to her treatment regimen. She maintains on 10mg prednisone currently. Her fatigue was more significant over the weekend after treatment, but this weekhas improved quite a bit. She still had diffuse myalgias, but much improved. Labs stable overall. She will follow-up in 3wks after discussion to see how she tolerates the next cycle and if adjustments will need made to her steroids. Thiswill be discussed further at follow-up. 09/04/2022: Resumed Pembrolizumab 200mg IV on 08/10--now has recurrent adrenal insufficiency with hypothyroidism. Resumed Prednisone 40mg daily taper with newprescription for levothyroxine 50mcg daily. Consult to Endocrinology for further workup. Will continue to hold pembrolizumab and followup in 2 weeks after endocrinology evaluation. Moderate complexity 35 minute followup. 09/18/2022: Consult with endocrinology on 09/16/2022: Recommendation to resume hydrocortisone 20 mg a.m./[address] Pérez will recommend titration of steroid dosing and likely retesting ACTH and cortisol with thyroid studies in about 6 weeks. Continue to hold pembrolizumab until 6 week followup after endocrinology testing for adrenal insufficiency. Moderate complexity 35 minute followup. 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 persistent symptoms at follow-up 07/23/2022 and changed to full dose prednisone with slow taper (prednisone 60 mg x 1 week, 40 mg x 1 week, 20 mg x 1 week, 10 mg x 1 week). 08/06/2022: Symptoms improved with higher dose prednisone. She will resume Pembrolizumab 08/13/2022 and maintain prednisone 10 mg daily. We can titrate prednisone as needed for adrenal insufficiency and myalgias. 08/14/2022: Tolerated pembro better with addition of 10mg prednisone. No repeat ACTH yet 09/04/2022: Holding pembrolizumab again and resuming Prednisone 40mg daily, Levothyroxine, endocrinology consult. 09/18/2022: Dr. Pérez recommended replacement dose hydrocortisone and followup testing in 6 weeks. Continue to hold Pembrolizumab. (3) Hypothyroidism (acquired) Continue levothyroxine 50mcg daily--6 week recheck at endocrinology evaluation. (4) Lumbar back pain with radiculopathy affecting left lower extremity Lumbar MRI results previously reviewed--degenerative disc disease but no evidence of metastatic cancer. Previously referred to Dr. Jameson Castle for his recommendations. Recent cervical MRI consistent with degenerative disc diseases. (5) Arthralgia of multiple sites, bilateral This is also deemed associated with immunotherapy. She has had good response response to prednisone over the last 2 weeks and will resume Pembrolizumab next week with low-dose prednisone therapy. 08/14/2022: Improved with addition of steroids to treatment regimen. Will monitorclosely. As noted above, holding Pembrolizumab 09/04/2022 and resuming higher dose Prednisone. 09/18/2022: No recurrence of myalgias/arthralgia--now resumed on hydrocortisone by Dr. Pérez. Reassess symptoms mid to late October and continue to hold Pembrolizumab. (6) Encounter for antineoplastic immunotherapy Good partial pathologic response with only a small focus of residual DCIS, ER 5%, LA 0%. Completed adjuvant radiation then we resumed pembrolizumab 200 mg IVevery 3 weeks for 9 cycles in May 2022. Pembrolizumab on hold for 2 months for immunotherapy related adrenal insufficiency and arthralgias. Improvement with steroid course and decision to resume therapy 08/13/2022, then stop again with steroids and endocrinology referral 09/04/2022. Continue to hold Pembrolizumab at 09/18/2022 followup after endocrinology consult. - Chemo Plan Chemo Plan (Dose, Rate, Freq): Neoadjuvant Carboplatin/Paclitaxel/Pembrolizumab therapy on 07/22/2021; Our treatment plan will be pembrolizumab 200 mg IV every 3 weeks with weekly paclitaxel 80 mg/m? IV and q. 21 days carboplatin AUC 5 for 4 cycles. This treatment regimen is based on KEYNOTE 522 trial and is now standard of care and NCCN guidelines. --After review of her MRI from outside hospital, I repeated her breast MRI for new baseline here. 10/17/2021: Cycle 1 day 1 pembrolizumab every 3 weeks with Adriamycin and cyclophosphamide for 4 cycles. 20% dose reduction Adriamycin andcyclophosphamide for neutropenia with cycle 2. -- She underwent lumpectomy with sentinel lymph node biopsy 02/17/2022 in [place]. Adjuvant radiation completed 05/04-06/16/2022. Total of 30 fractions. -- Resumed adjuvant Pembrolizumab 05/28/2022. Received 1 cycle and stopped 06/18/2022 due to persistent arthralgias/myalgia and adrenal insufficiency. Resume therapy with Pembrolizumab after response to steroids 08/13/2022, maintainlow-dose prednisone. Continue to hold Pembrolizumab at 09/04 and 09/18/2022 followups. Number of Cycles: 8 Goal of Treatment: Curative - Time with Patient Time Spent with Patient (Follow Up Visit): 35 minutes - Moderate complexity 35 visit for immunotherapy related adrenal insufficiency. Resumed Keytruda 08/13/2021/held 09/04 for recurrent AI/low thyroid. Endocrine consult 09/16--Resumehydrocortisone 6 weeks. Coordination of Care & Counseling Time: Greater than 50% of time spent with patient was for coordination of care (as documented) and [id number] counseling of patient and/or family. Dictated By: Kallie Chang MD DD/ [id number] Signed By: <Electronically signed by MD Kallie Chang> 09/18/22 [id number] [facility] Work Phone: [phone]) [phone] Progress note Author Kallie Chang [facility] September 04, 2022 10:35pm Note Date/Time September 04, 2022 1:11pm [facility] [place] [address] Hem/Onc Follow Up Note - OP Signed Patient: Tenisha Hancock Kaitlin MR#: [id number] : 1975 Acct:[id number] Age/Sex: 47 / F Type: REG RCR Copies to: MD Eliel Arteaga MD~ Subjective Date/Time of Service: Date of Service: 09/04/2022 Time of Service: 13:08 Chief Complaint: Patient is here today a 3 follow up visit for breast cancer andgo over labs HPI: 09/04/2022: Rachel is here for 3 week followup on pembrolizumab. She had adrenal insufficiency and immunotherapy-related arthralgia in 06/2022. Therapy was held with improved fatigue and arthralgias after full dose steroids. Labs last week showed recurrent adrenal insufficiency with undetectable cortisol and low ACTH. She also has increased TSH and I will hold her pembrolizumab again and refer to endocrinology for adrenal insufficiency or possibly hypopituitarism. Will resume higher dose Prednisone 40mg daily, then decrease by 10mg each week and add levothyroxine 50mcg daily. Will f/u endocrinology consult in 2 weeks. Moderate complexity 35 minute f/u visit. 08/14/2022: Rachel presents in follow-up for her breast cancer on pembrolizumab.She maintains on 10mg prednisone daily and states her symptoms were definitely improved with her last treatment. She notes fatigue and slept quite a bit still thru last weekend, but has felt more energy this week. She notes her body aches were much less severe but still present. Otherwise she denies new complaints. She would like to continue with treatment for now and follow-up for another tox check after next cycle of pembro to ensure her symptoms continue to improve and don't worsen again after next cycle. 08/06/2022: Rachel is here for 2-week follow-up. She notes that she feels much improved since starting full dose steroids. She is now tapered down to 20 mg daily starting tomorrow. We discussed potential risks and benefits of resuming immunotherapy with pembrolizumab maintenance x1 year. Since she has immunotherapy related adrenal insufficiency, we will complete the next week of prednisone at 20 mg daily, then maintain prednisone dose at 10 mg daily and she wishes to resume pembrolizumab maintenance starting 08/13/2022. We will coordinate follow-up 1 week later with nurse practitioner to review side effects. If well-tolerated she will continue current dosing and follow-up with me at 3 months for exam. Moderate complexity 30-minute follow-up to review symptoms on prednisone taper and coordinate resuming immunotherapy. 07/23/2022: Rachel is here for 1 month follow-up after holding Pembroluzumab dueto multiple suspected immunotherapy related symptoms. She previously was havingdiffuse body aches with difficulty ambulating due to joint pain. Her joint painis now pretty much localized to her wrists and she is ambulating without assistance, however she still has profound fatigue. She was also noted to have persistently low cortisol level of 2.6 with ACTH <1.5 despite compliance with replacement dose hydrocortisone 20 mg a.m., 10 mg p.m. she sometimes notes that she forgets to take the evening dose. CBC shows stable hemoglobin 11 with normal white count and platelets. Sodium mildly low at 135 but otherwise normalelectrolytes and liver function test. TSH and free T4 normal. I recommended increasing steroid dose to prednisone 60 mg daily for 1 week, then 40 mg daily for 1 week then 20 mg daily for 1 week, then 10 mg daily for 1 week with reassessment in 1 month. We will continue to hold Pembroluzumab immunotherapy and reevaluate whether she is able to continue adjuvant immunotherapy or observation only. This is a moderate complexity visit over 30 minutes for review of symptoms with immunotherapy related adrenal insufficiency and myalgias. 06/19/2022: Rachel completed radiation therapy on 06/16/2022: continued nausea with generalized weakness and diffuse body aches. She has pain over joints, pain rising to stand and ambulating. Labs reveal low cortisol and normal ACTH suggesting immunotherapy related adrenal insufficiency, thyroid function normal. We discussed holding pembrolizumab today and starting replacement dose hydrocortisone 20mg am/10mg pm. 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 We may give full dose slow prednisone taper if continued arthralgias on immunotherapy. Will determine whether she continues further pembrolizumab if persistent arthralgia. High complexity 45 minute visit to manage immunotherapy related adrenal insufficiency and arthralgia. 03/12/2022: Rachel is here following her needle localized lumpectomy with oncoplastic reconstruction of right breast with right mastopexy on 02/17/2022 by Drs. Saunders/Drew ([facility]). 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 DCIS had estrogen receptor 5% and progesterone receptor negative therefore she is not a candidate for adjuvant hormonal therapy. -- Prior to neoadjuvant therapy the patient's clinical stage was T2N0 (baseline tumor about 2.5 cm by exam). Pathologic stage is ypTis pN0 pMx (3.5mm). She ishealing well with mild residual pain at sites but no drainage from incisions which are healing well. Due to in situ disease only, she does not require further chemotherapy and we will send her to radiation to discuss radiation for her in situ disease. As per the KEYNOTE-522 study, the patient will receive 9 additional cycles of pembrolizumab every 3 weeks following her radiation therapythen observation. The patient expresses understanding and will return after radiation oncology evaluation to and I will see her for follow-up cycle 2. High complexity 45-minute visit for review of outside operative notes and final pathology after right lumpectomy/reconstruction. 12/24/2021: Rachel presents after completing her 4th and last cycle of Adriamycin, Cytoxan and Pembrolizumab. She notes some lingering fatigue and nausea without vomiting. She also notes a few days of diarrhea with some improvement today. Otherwise she does not admit to any other complaints. Her labs are reviewed and stable overall, no significant cytopenias. She is unsure of her next steps and has a lot of questions related to surgical options as wellas if she will need radiation therapy. She met with Dr. Simons and has an appointment scheduled at [facility] to discuss josep flap surgery as well. We have advised her to follow-up with Dr. Reza to review her options and answer herquestions related to timing with the surgeon and plastic surgeon. We reviewed lumpectomy vs. mastectomy and the role radiation plays as well. We will plan to follow-up 2 weeks postop, and she will call us with her surgery date once decisions have been made. 12/03/2021: Rachel presents for cycle 3, week 2 toxicity check for Adriamycin/Cytoxan/Pembrolizumab. She continues to note fatigue and nausea but has not had any further neutropenia since dose reduction. We are coordinating evaluation by Dr. Simons with plastic surgery as well as Dr. Reza for planned end of therapy with last cycle due on December 17, 2021. The patient is undecided whether she would like to proceed with breast conservation option versus immediate reconstruction with mastectomy. Dr. Simons was contacted to arrange initial evaluation and she may see nurse practitioner for follow-up 1 week after her last cycle of Adriamycin/Cytoxan/Pembrolizumab. I will see her about 2 weeks postoperatively from her definitive therapy to review pathology and any further therapy options at that point. 11/12/2021: Rachel is here for cycle 2, week 2 toxicity check for Adriamycin/Cytoxan/Pembrolizumab. She was given 20% dose reduction Adriamycin and Cytoxan due to neutropenia last cycle and notes that she felt even more fatiguedthis cycle than prior cycle. She did not have any oral mucositis and met with Dr. Reza but he was unable to review her prior films. She did not require any further interventions since surgical clip was placed in the past. She stillis undecided whether she will proceed with lumpectomy or mastectomy. I will refer her back for surgical evaluation after completion of her 4 cycles of Adriamycin/Cytoxan/Pembrolizumab. Currently she does not have any cytopenias noted recommend proceeding with same dose of therapy. 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 Next follow-up in 3 weeks fortoxicity check or sooner as needed. 10/22/2021: Rachel is here for toxicity check after cycle 1 of Adriamycin/Cytoxan/Pembrolizumab 1 week ago. She notes that she had increased fatigue and persistent nausea and her total white blood cell count is 1200 with ANC 100. No fever, chills, night sweats, or signs or symptoms of infection. Wediscussed dose reduction by 20% due to her neutropenia. Baseline echocardiogramprior to Adriamycin and Cytoxan was 55 to 60%. MRI of the breast was reviewed in comparison to her initial MRI in May 2022 that shows some progression ofher primary breast mass and one of the satellite lesions is no longer identified. Patient does note that after her breast MRI she did undergo placement of clip at the site of her prior lesions. She wanted to transfer her care for surgical evaluation by Dr. Reza and I will place consult for him to evaluate her to plan surgery following 3 more cycles of Adriamycin/Cytoxan/Pembroluzumab. Otherwise she will follow-up for next cycle of chemotherapy in 2 weeks and toxicity visit the following week after 20% dose reduction of both Adriamycin and Cytoxan. 10/08/2021: Rachel is here for followup after completing 4 cycles of neoadjuvant carboplatin AUC 5 with weekly paclitaxel 80 mg/m? and every 3-week Pembroluzumab 200 mg. She is on her last dose of 12-week paclitaxel today. We ordered an MRI on her and reviewed the images with her in clinic today but finalreport is still pending radiology read. I reviewed her case with breast medical oncologist Dr. Vinh Bucio who agreed that patient should likely continue on Adriamycin/Cytoxan/Pembrolizumab every 3 weeks for 4 more cycles as previously written. She had a baseline echocardiogram in May but we will repeat this prior to starting her next round of chemo in 1 week. Her next follow-up for toxicity visit will be cycle 1 week 2 and we will coordinate surgery evaluation based on her breast MRI to review her response to initial therapy. Symptoms are otherwise stable on weekly paclitaxel with minimal neuropathy. I contacted radiology and breast MRI should be read early next week. 09/24/2021: Rachel is a 46-year-old lady who is currently cycle 4-day 1 for neoadjuvant carboplatin AUC 5 (dose adjusted for adjusted body weight), weekly paclitaxel 80 mg/m?, and every 3-week Pembrolizumab 200 mg. She has tolerated chemotherapy reasonably well with nausea and IBS symptoms but she has not had any significant neutropenia. She has not noticed any clinical difference in herbreast exam, although in comparison to prior notes there is a 9 discrete area onexam 3 to 4 cm of thickening in the right 10:00 to 11:00 area. There is no skindimpling or nipple discharge or retraction. I do not feel any palpable masses in the axilla. Although the patient previously saw Dr. Red at diagnosis, she is uncertain of the plan for surgery. Since she had negative genetic testing it is unlikely that she will have bilateral mastectomy and reconstruction, however we can coordinate her evaluation by surgery locally if she wishes. --Otherwise we decided to proceed with her fourth cycle of carboplatin/paclitaxel/Pembrolizumab today. She had a baseline MRI and I will schedule repeat MRI after her fourth cycle and reevaluate her response to disease. Originally Dr. Phoenix had consented her to proceed with Adriamycin and Cytoxan with Pembrolizumab for 4 more cycles following her carboplatin/paclitaxel/Pembrolizumab. I will review this with tertiary breast medical oncologist Dr. Vinh Bucio to determine whether she should proceed with further therapy or be evaluated for surgery. Patient will follow up with me in approximately 2 weeks after her MRI to review subsequent plan of therapy. Previous notes from Dr. Phoenix, last seen 08/18/2021: Tenisha presents August 20, 2021 for cycle 2, day 7 of neoadjuvant chemotherapy for triple negative breast cancer. She does have some progressive alopecia. No nausea vomiting diarrhea. The breast mass in the right breast is not as evidence with deep palpation. Youcan still feel it but it appears to be smaller somewhat. In the right axilla there is a very small pinpoint hard nodule fairly superficial. Her tolerance to therapy to date has been overall good. BRCA testing was done through [employer] and is negative. She does have left foot numbness. MRI was done of the lumbar spine and does show multiple areas of degenerative disc disease. The patient has a known history of problem both in her lumbar spine and what appears in her cervical spine. I will refer her to Dr. Castle for consideration of kyphoplasty or other. I willdefer to his impression and recommendations. MOHEGAN: This is a now 47 year old female, recently diagnosed with triple negative right breast cancer; currently undergoing neoadjuvant pembrolizumab, carboplatin AUC 4and weekly paclitaxel x6 cycles, which commenced: 07/22/2021. This is a 46-year-old female who works at [employer] with triple negative breast cancer, referred for neoadjuvant chemotherapy. Mammogramon on April 22, 2021 showed 3 new focal masses with the largest measuring 2 cm in size in the right breast. 2 additional lesions measuring 1 cm and a second 0.9 cm were also seen. The patient was referred for biopsy. Needle biopsy showed triple negative breast cancer, ER negative, LA negative, and H ER 2 -. The patient was referred to Dr. Ismael Red for [id number] which she has had placed. She has seen my colleague Dr. Smith at the [facility] recommended neoadjuvant chemotherapy and immunotherapy. Because of insurance reasons, she will be getting her treatment here at [facility]. She has had echocardiography as well. According the patient an MRI was obtained prior to neoadjuvant therapy while she was at [facility] we are requesting this prior study. She does have a palpable breast mass. It is in the lower mid quadrant of the right breast. Mammogram on on April 22, 2021 showed 3 new focal masses with the largest measuring 2 cm in size in the right breast. 2 additional lesions measuring 1 cmand a second 0.9 cm were also seen. The patient was referred for biopsy. Needle biopsy showed triple negative breast cancer, ER negative, LA negative, and HER 2 -. The patient was referred to Dr. Ismael Red for [id number] which she has had placed. She has seen my colleague Dr. Smith at the [facility] recommended neoadjuvant chemotherapy and immunotherapy. Because of insurance reasons, she will be getting her treatment here at [facility]. She has had echocardiography as well. PET/CT scan was denied by insurance and she underwent CT scan of the chest/abdomen/pelvis on 07/16/2021 which showed no obvious evidence of distant metastatic disease. As noted above, Cycle 1, Day 1 (Carboplatin/Paclitaxel/Pembrolizumab) commenced 07/22/2021 and this was well tolerated. The patient went home that evening and began to feel flushed, general malaise, etc. She subsequently tested positive for COVID - 19 per PCR the following day, 07/23/2021. Her symptoms were quite mild; however, next cycle of chemotherapy was pushed out 2 days and she is here today for Cycle 1, Day 8 of single agent Paclitaxel. She does have a palpable breast mass in the lower mid quadrant of the right breast; she was concerned about a lump under her right axilla but upon exam wehad trouble locating a discrete nodule or lymph node. Otherwise, her only complaint is continued low back pain with radiculopathy involving the left groin/hip and left lower extremity with associated numbness in left foot. She has known neuroma of the left foot and was in the process of being worked up by pain management (Dr. Monique) for lumbar pain; radiculopathy. - Summary of Therapies Summary of Therapies: 1. Neoadjuvant Carboplatin AUC 5-day 1, Pembrolizumab 200 mg day 1, Paclitaxel 80 mg meter squared weekly each 21-day cycle for planned 4 cycles: started Cycle1, Day 1: 07/22/2021, cycle 4 09/24/2021 --Plan 10/15/2021: Start Pembrolizumab 200 mg day 1, doxorubicin 60 mg/m? day 1,and cyclophosphamide 600 mg/m? day 1 every 21 days x 4 cycles followed by adjuvant Pembrolizumab 200 mg IV every 21 days x 9 cycles --Original breast MRI obtained from [facility] from May 2021, follow-up breast MRI performed 10/07/2021 for initial response to therapy. Patient requested an opinion from Dr. Reza for planning breast surgery options based on MRI (she does note that prior biopsy clips were placed after her original MRI for further neoadjuvant therapy). -- 20% dose reduction doxorubicin and cyclophosphamide cycle 2 for neutropenia. Last dose of Adriamycin, cyclophosphamide, Pembrolizumab due 12/17/2021. End of therapy echo may be ordered preoperatively in late December. 2. 02/17/2022 at [facility], Drs. Saunders/Shantal: needle localized lumpectomy with oncoplastic reconstruction of right breast with right mastopexy 3. Adjuvant radiation: Right SCV axilla 5000 cGy 05/04-06/07/22 25 fractions over 34 elapsed days. Right breast 5000 cGy 05/04-06/07/22 25 fractions over 34elapsed days. Cavity boost 1000 cGy 06/08-06/16/2022 5 fractions over 8 days. 4. Resumed Immunotherapy Pembrolizumab 200 mg IV every 3 weeks for 9 more cycles--first/only postop dose was 05/28/2022. Stopped 06/18/2022 after 1 postopdose due to immunotherapy related arthralgias/myalgia and adrenal insufficiency. No hormonal therapy indicated for triple negative disease. Continue to hold Pembroluzumab follow-up 07/23/2022 -- Resumed Pembrolizumab 200 mg IV every 3 weeks on 08/14/2022, maintaining prednisone 10 mg daily for immunotherapy related myalgias and adrenal insufficiency. -- Held dose 09/04/2022, resumed prednisone 40mg po daily with addition of levothyroxine 50mcg daily. Endocrinology consult. ROS Details: All systems reviewed & no additional complaints except as documented Subjective/ROS - Narrative: CONSTITUTIONAL: Positive for recurrent generalized fatigue (not improved on replacement dose hydrocortisone or after prednisone taper), negative for fever or night sweats. Still able to perform activities of daily living. HEAD AND NECK: Negative for changes in hearing and vision. Negative for mouth ulcers, nasal congestion and nasal drainage. BREASTS: Status post right lumpectomy with oncoplastic reconstruction/right mastopexy well-healed incisions without tenderness to palpation. No lymphedema or axillary fullness right. Left breast and axilla unremarkable. PULMONARY: Negative for chest pain, cough and dyspnea. CARDIOVASCULAR: Negative for claudication and irregular heartbeat/palpitations. GASTROINTESTINAL: Negative for abdominal pain, constipation, decreased appetite,diarrhea. Denies nausea/vomiting on Prednisone GENITOURINARY: Negative for dysuria and hematuria. ENDOCRINE: Negative for cold intolerance and heat intolerance. Positive for fatigue due to immunotherapy related adrenal insufficiency--started hydrocortisone 20 mg a.m./10 mg p.m. at 06/18/2022 visit--changed to higher dose prednisone 07/23 visit). Significantly improved myalgias at 08/06/2022 visit but worse at 09/04 visit after taper. Repeating Prednisone higher dose pending endocrinology consult. CENTRAL NERVOUS SYSTEM: Improvement of prior gait disturbance due to myalgia/arthralgia at 07/23 visit but still persistent bilateral wrist pain. Negative for headache. No significant motor neuropathy or focal deficits. PSYCHIATRIC: Negative for anxiety. Positive distress mood regarding recent symptoms. DERMATOLOGICAL: Negative for pruritus and rash. Negative for suspicious skin lesions. MUSCULOSKELETAL: Stable lumbar back pain. New generalized arthralgias and myalgias--noted at 06/18 visit, stopped immunotherapy for symptoms; resumed 08/13,held again 09/04. HEMATOLOGICAL: Negative for bleeding and easy bruising. Negative for history of transfusion or thromboembolic disease. Laboratories with cycle 1 AC Pembroluzumab showed neutropenia without fever. No neutropenia after dose reduction cycle2. ALLERGY: Negative for environmental allergies and food allergies. PMFSH - History Attestation statement: The following information was validated with the patient. Source: Old Records Reviewed - Medical History Medical History: Medical History (Last Reviewed 09/04/22 @ 22:16 by Kallie Chang MD) Arthritis COVID-19 Headache High blood cholesterol - Surgical History Surgical History: Surgical History (Last Reviewed 09/04/22 @ 22:17 by Kallie Chang MD) History of breast biopsy right 05/26/2021 History of carpal tunnel release History of cholecystectomy History of foot surgery right - Family History Family History: Family History (Last Reviewed 09/04/22 @ 22:16 by Kallie Chang MD) Brother Lung cancer Father Cancer Mother COPD (chronic obstructive pulmonary disease) - Social History Smoking Status: Former smoker Tobacco Type: cigarettes Substance Use Type: None Home Medications & Allergies Allergies No Known Allergies Allergy (Verified 09/04/22 13:03) Home Medications [id number] 250 mg-250 mg-65 mg tablet (Excedrin Migraine) 1 tab PO Q4-6H PRN Headache 07/08/21 [History Confirmed 09/04/22] citalopram 20 mg tablet 20 mg PO DAILY 07/08/21 [History Confirmed 09/04/22] omeprazole 20 mg capsule,delayed release 20 mg PO DAILY 07/08/21 [History Confirmed 09/04/22] ondansetron 8 mg disintegrating tablet 8 mg PO Q8H #90 tabs 06/02/22 [Rx Confirmed 09/04/22] levothyroxine 50 mcg tablet (Synthroid) 50 mcg PO DAILY #30 tabs 09/04/22 [Rx] prednisone 20 mg tablet 20 mg PO DIRECTED #60 tabs 09/04/22 [Rx] Objective - Height/Weight Height/Weight: Height 5 ft 3 in Weight 80.3 kg BSA for Today's Weight 1.85 - Vital Signs Vital Signs: 09/04/22 13:04 Temperature 97.8 F Pulse Rate [Left Brachial] 75 Respiratory Rate 16 Blood Pressure [Left Arm] 141/83 H 02 Sat by Pulse Oximetry 98 Oxygen Delivery Method Room Air - Pain Left Shoulder Pain Intensity: 5 Lower Back Pain Intensity: 4 Generalized Left Pain Intensity: 5 Generalized Pain Intensity: 8 Physical Exam Narrative: GENERAL: Alert, pleasant, no acute distress, no longer noted to have hip pain with ambulating and ambulates independently. HEENT: Oral mucosa is pink/moist; no lesions or exudate. Neck supple without adenopathy or thyromegaly. BREAST: Well-healed incisions from right lumpectomy with breast reconstruction/mastopexy. No masses left breast. No axillary fullness or tenderness. HEART: RRR; no murmurs/rubs or gallops; S1 and S2 normal. No edema. LUNGS: CTA bilaterally; no wheezes or crackles. Normal respiratory effort. ABDOMEN: Soft, non tender. BS present x 4 quadrants. No HSM. INTEGUMENTARY: Warm, dry; no skin rashes. LYMPHATICS: No lymphadenopathy appreciated. MUSCULOSKELETAL: No vertebral tenderness or step-off deformity. No palpable synovitis of joints. NEUROLOGICAL: Grossly intact, patient is alert and oriented x 3; stable gait, nofocal deficits. - ECOG Performance Status ECOG Score: 1 Results - Labs Labs: Diagram of Most Recent CBC and CMP 08/27/22 14:35 08/27/22 14:35 Assessment and Plan - TNM Staging Staging: Stage II right breast invasive ductal carcinoma grade 3, estrogen receptor 0%, progesterone receptor 0%, HER-2 negative by IHC Clinical stage II with baseline tumor at least 2 or 2.5 cm (In comparison with prior 05/2021 MRI there was interval decrease of dominant mass to 1.5 cm in greatest dimension)--completed neoadjuvant therapy with TC plus pembrolizumab then AC plus pembrolizumab Postoperative pathologic staging: yTis yN0 postoperative pathologic stage 0. Right lumpectomy/breast reconstruction/mastopexy 02/17/2022--small area of ductal carcinoma in situ 3.5 mm but no invasive disease. 5 lymph nodes were negative for carcinoma. (1) Breast cancer Qualifiers: Breast location: overlapping sites of breast Patient sex: female Laterality: right Patient is a now 47-year-old female presenting with 3 discernible masses by mammography (04/22/2021) with needle biopsy confirming triple negative breast cancer. She was initially see in consultation by Dr. Smith at [facility] in [place], [place]; however, due to insurance reasons the [facility]. In reviewing notes from her prior physician from 06/20/2021 she had 3 focal nodules with largest measuring 2 x 1.8 cm 6 o'clock position, 2 additional lesions measuring 1 x 0.7 cm and another 0.9 x 0.6 cm. BI-RADS spot compression view right breast showed persistent 2.4 x 2.2 cm partially obscured round mass with pleomorphic calcifications. She did have breast MRI prior to initiation of neoadjuvant therapy which I do not have records from this from [facility] in [place]. I am requesting this to evaluate her baseline study since transfer of care from Dr. Phoenix to myself. She also had reported normal baseline echo in May 2021. She commenced neoadjuvant Carboplatin/Paclitaxel/Pembrolizumab therapy on 07/22/2021; Our treatment plan will be pembrolizumab 200 mg IV every 3 weeks with weekly paclitaxel 80 mg/m? IV and q. 21 days carboplatin AUC 5 for 4 cycles. This treatment regimen is based on KEYNOTE 522 trial and is now standard of careand NCCN guidelines. After review of her MRI from outside hospital, I will repeat her breast MRI for new baseline here. If stable to responding disease wemay continue prior plan for followed by pembrolizumab every 3 weeks with Adriamycin and cyclophosphamide for 4 cycles. The patient would like reassessment by general surgery for surgical plan and we will determine whether she proceeds with mastectomy or lumpectomy based on his results. Baseline genetic testing returned negative from prior physicians at [facility]. BRCA testing negative Follow-up September is cycle 4 -day 1. Tolerance is overall good-- Proceed with cycle 4 with breast MRI prior to 2-week follow-up in comparison to baseline MRI. This will be useful in surgical planning. I am discussing her case with tertiary breast oncology Dr. Vinh Bucio to see if he concurs withthis plan. If decision is made to commence AC Pembroluzumab we will repeat her echocardiogram prior to this and obtain her prior echo results. --Physical exam may be showing some evidence of response with the lump in the right breast being not as conspicuous as compared to prior notes although it is unclear to evaluate by exam, therefore MRI is ordered. --My plan at this time will be to press on and continue our chemotherapy per plan. I will see her in 2 weeks. 10/08/2021: Patient is here for her last paclitaxel prior to changing agents for neoadjuvant therapy to Adriamycin/cyclophosphamide/pembrolizumab. She is due for follow-up echocardiogram prior to starting anthracycline. She had discussedpotentially changing surgeons to Dr. Reza and I contacted him regarding breast MRI for surgical planning. We will review her prior MRI from [facility] in May 2021 in comparison to most recent MRI (report pending). Of note outside MRI noted no biopsy clips in place and we may need to rebiopsy to place clips at sites of residual tumor masses prior to continuing further neoadjuvant therapy. We will coordinate a time for him to meet with the patientto discuss surgical options of lumpectomy versus mastectomy. Patient will commence her Adriamycin/cyclophosphamide/Pembrolizumab at 10/15/2021 and I will follow-up with her in early October for toxicity visit for tolerance. 10/22/2021: Change to Adriamycin/cyclophosphamide/Pembrolizumab with neutropenia noted but no fever. Echocardiogram at baseline was 55 to 60%. Other than nausea no other significant toxicities. MRI was reviewed and [facility] tumor board with Dr. Reza and he will be arranging evaluation for surgical options. Consultation was placed to him today. We willdose reduce Adriamycin and cyclophosphamide both by 20% due to her neutropenia. Otherwise may proceed with chemotherapy in 2 weeks he can follow-up in 3 weeks either with myself or nurse practitioner for toxicity review. 11/12/2021: Here for cycle 2-day 8 toxicity visit on now 20% dose reduced Adriamycin/cyclophosphamide/Pembrolizumab due to neutropenia without fever last cycle. Persistent fatigue and nausea without mouth ulcers. No neutropenia thiscycle. The patient met with Dr. Reza and will follow-up with her at end oftherapy. She is still not decided whether she would like to proceed with lumpectomy or mastectomy plus minus reconstruction. We will coordinate 3-week follow-up toxicity visit with nurse practitioner cycle 3-day 8--no dose reduction since she does not have any significant cytopenias. 12/03/2021: Here for cycle 3-day 8 toxicity visit on 20% dose reduced Adriamycin/cyclophosphamide/Pembrolizumab with no new toxicities. No cytopenias are noted. I am coordinating plastic surgery consultation with Dr. Berny Simons prior to evaluation by Dr. Reza to determine surgical approach. She will have 1 more dose of chemotherapy due on 12/17/2021 and will follow-up with nurse practitioner 1 week following her chemo. She will require end of therapy echocardiogram in late December. I will see her in follow-up 2 weeks after her definitive surgery to review pathology and further plan for therapy/surveillance. Moderate complexity visit over 35 minutes for symptom review on chemotherapy, coordination with Dr. Simons and Dr. Reza of breast surgery for surgical plan. 12/24/2021: She is here for toxicity check after completion of 4 cycles of AC+Pembro. She has some lingering fatigue and nausea, but otherwise ok. Labs reviewed and ok. She will schedule follow-up with Dr. Reza to discuss surgical intervention and schedule surgery. We will plan for follow-up 2 weeks postop to discuss final pathology and next steps. She will call us with the scheduled surgery date. Her end of treatment ECHO is scheduled for 01/07/2022. 03/12/2022: Patient returns after right lumpectomy/breast reconstruction/mastopexy 02/17/2022 well-healed without complaints. 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 5 lymph nodes were negative for carcinoma. We discussed referral to radiation oncology after she has well-healed, then she may resume pembrolizumab 200 mg IV every 3 weeks for 9 further cycles as per KEYNOTE 522. No hormonal therapy indicated due to triple negative breast cancer. I will see her in follow-up with immunotherapy labs adjuvant cycle 2-day 1 Pembrolizumab timothy if new issues arise. High complexity visit over 45 minutes to review outside operative notes, pathology, and to discuss adjuvant radiation and immunotherapy. 06/19/2022: Patient has now completed her adjuvant radiation therapy on 06/16/2022. She resumed her first postop dose of Pembrolizumab on 05/28/2022 and has had intractable arthralgias and myalgias. She is also has had nausea and vomiting and is noted to have cortisol level of 0.2 with normal ACTH. This is consistent with immunotherapy induced adrenal insufficiency. We will hold pembrolizumab today and start hydrocortisone 20 mg a.m./10 mg p.m. reassessed byNP in 1 week to see if arthralgia symptoms are improved. If she has persistent arthralgias and myalgias she may get full dose prednisone with slow taper (prednisone 60 mg x 1 week, 40 mg x 1 week, 20 mg x 1 week, 10 mg x 1 week). Ifarthralgias completely resolved with hydrocortisone therapy we may consider resuming Keytruda for remaining doses. Next follow-up with me will be in around6 weeks or sooner as needed. High complexity visit over 45 minutes to address new toxicities. 07/23/2022: As per HPI the patient has improvement of gait but still has persistent myalgias and arthralgias of bilateral wrists. Also has persistent nausea despite compliance with replacement dose hydrocortisone. Since she has persistent nausea and arthralgias/myalgias with persistently low fasting cortisol she will be treated with full dose prednisone with slow taper (prednisone 60 mg x 1 week, 40 mg x 1 week, 20 mg x 1 week, 10 mg x 1 week). Continue to hold Pembroluzumab and follow-up in about 1 month for symptom review(with nurse practitioner at that time). No evidence of recurrence on clinical exam. Moderate complexity 30-minute follow-up of immunotherapy related toxicities. 08/06/2022: Significant improvement of myalgias since higher dose prednisone dosing with taper. She completed her first 2 weeks and starts 20 mg daily x1 week tomorrow. Due to her adrenal insufficiency I will have her maintain prednisone 10 mg daily. After discussion of risks and benefits she wishes to resume Pembrolizumab on 08/13/2022 and will have toxicity follow-up with Nurse Practitioner the following week. The goal will be to complete 8 more cycles of adjuvant pembrolizumab every 3 weeks. I will see her in follow-up in 3 months for full exam and immunotherapy labs. Is a moderate complexity 35-minute follow-up of her symptoms on prednisone taper, decision to resume immunotherapy. 08/21/2022: She had improvement in her myalgias and fatigue with addition of steroids to her treatment regimen. She maintains on 10mg prednisone currently. Her fatigue was more significant over the weekend after treatment, but this weekhas improved quite a bit. She still had diffuse myalgias, but much improved. Labs stable overall. She will follow-up in 3wks after discussion to see how she tolerates the next cycle and if adjustments will need made to her steroids. Thiswill be discussed further at follow-up. 09/04/2022: Resumed Pembrolizumab 200mg IV on 08/10--now has recurrent adrenal insufficiency with hypothyroidism. Resumed Prednisone 40mg daily taper with newprescription for levothyroxine 50mcg daily. Consult to Endocrinology for further workup. Will continue to hold pembrolizumab and followup in 2 weeks after endocrinology evaluation. Moderate complexity 35 minute followup. 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 persistent symptoms at follow-up 07/23/2022 and changed to full dose prednisone with slow taper (prednisone 60 mg x 1 week, 40 mg x 1 week, 20 mg x 1 week, 10 mg x 1 week). 08/06/2022: Symptoms improved with higher dose prednisone. She will resume Pembrolizumab 08/13/2022 and maintain prednisone 10 mg daily. We can titrate prednisone as needed for adrenal insufficiency and myalgias. 08/14/2022: Tolerated pembro better with addition of 10mg prednisone. No repeat ACTH yet 09/04/2022: Holding pembrolizumab again and resuming Prednisone 40mg daily, Levothyroxine, endocrinology consult. (3) Hypothyroidism (acquired) Start levothyroxine 50mcg daily pending endocrinology evaluation. (4) Lumbar back pain with radiculopathy affecting left lower extremity Lumbar MRI results previously reviewed--degenerative disc disease but no evidence of metastatic cancer. Previously referred to Dr. Jameson Castle for his recommendations. Recent cervical MRI consistent with degenerative disc diseases. (5) Arthralgia of multiple sites, bilateral This is also deemed associated with immunotherapy. She has had good response response to prednisone over the last 2 weeks and will resume Pembrolizumab next week with low-dose prednisone therapy. 08/14/2022: Improved with addition of steroids to treatment regimen. Will monitorclosely. As noted above, holding Pembrolizumab 09/04/2022 and resuming higher dose Prednisone. (6) Encounter for antineoplastic immunotherapy Good partial pathologic response with only a small focus of residual DCIS, ER 5%, LA 0%. Completed adjuvant radiation then we resumed pembrolizumab 200 mg IVevery 3 weeks for 9 cycles in May 2022. Pembrolizumab on hold for 2 months for immunotherapy related adrenal insufficiency and arthralgias. Improvement with steroid course and decision to resume therapy 08/13/2022, then stop again with steroids and endocrinology referral 09/04/2022. - Chemo Plan Number of Cycles: 8 Goal of Treatment: Curative - Time with Patient Time Spent with Patient (Follow Up Visit): 35 minutes - Moderate complexity 35 visit for immunotherapy related adrenal insufficiency, arthralgia/myalgia. Resumed Keytruda 08/13/2021/held 09/04 for recurrent AI/low thyroid. Resume prednisone and hypothyroidism for symptom management. Coordination of Care & Counseling Time: Greater than 50% of time spent with patient was for coordination of care (as documented) and [id number] counseling of patient and/or family. Dictated By: Kallie Chang MD DD/ [id number] Signed By: <Electronically signed by MD Kallie Chang> 09/04/22 [address] [facility] Work Phone: [phone]) 948-672602-03-2023 Progress note Author Ashlie Arriaga [facility] August 21, 2022 1:13pm Note Date/Time August 14, 2022 2 :16pm [facility] at [address] [address] Hem/Onc Follow Up Note - OP Signed Patient: Tenisha Hancock MR#: [id number] : 1975 Acct:[id number] Age/Sex: 47 / F Type: REG RCR Copies to: MD Eliel Wilson MD~ Subjective Date/Time of Service: Date of Service: 08/14/2022 Time of Service: 14:16 Chief Complaint: Patient is here for a one week follow up, had cycle 10 day 15 Pembro 08/07/2022. Patient states she was fatigued all weekend and slept most ofit. HPI: 08/14/2022: Rachel presents in follow-up for her breast cancer on pembrolizumab.She maintains on 10mg prednisone daily and states her symptoms were definitely improved with her last treatment. She notes fatigue and slept quite a bit still thru last weekend, but has felt more energy this week. She notes her body aches were much less severe but still present. Otherwise she denies new complaints. She would like to continue with treatment for now and follow-up for another tox check after next cycle of pembro to ensure her symptoms continue to improve and don't worsen again after next cycle. 08/06/2022: Rachel is here for 2-week follow-up. She notes that she feels much improved since starting full dose steroids. She is now tapered down to 20 mg daily starting tomorrow. We discussed potential risks and benefits of resuming immunotherapy with pembrolizumab maintenance x1 year. Since she has immunotherapy related adrenal insufficiency, we will complete the next week of prednisone at 20 mg daily, then maintain prednisone dose at 10 mg daily and she wishes to resume pembrolizumab maintenance starting 08/13/2022. We will coordinate follow-up 1 week later with nurse practitioner to review side effects. If well-tolerated she will continue current dosing and follow-up with me at 3 months for exam. Moderate complexity 30-minute follow-up to review symptoms on prednisone taper and coordinate resuming immunotherapy. 07/23/2022: Rachel is here for 1 month follow-up after holding Pembroluzumab dueto multiple suspected immunotherapy related symptoms. She previously was havingdiffuse body aches with difficulty ambulating due to joint pain. Her joint painis now pretty much localized to her wrists and she is ambulating without assistance, however she still has profound fatigue. She was also noted to have persistently low cortisol level of 2.6 with ACTH <1.5 despite compliance with replacement dose hydrocortisone 20 mg a.m., 10 mg p.m. she sometimes notes that she forgets to take the evening dose. CBC shows stable hemoglobin 11 with normal white count and platelets. Sodium mildly low at 135 but otherwise normalelectrolytes and liver function test. TSH and free T4 normal. I recommended increasing steroid dose to prednisone 60 mg daily for 1 week, then 40 mg daily for 1 week then 20 mg daily for 1 week, then 10 mg daily for 1 week with reassessment in 1 month. We will continue to hold Pembroluzumab immunotherapy and reevaluate whether she is able to continue adjuvant immunotherapy or observation only. This is a moderate complexity visit over 30 minutes for review of symptoms with immunotherapy related adrenal insufficiency and myalgias. 06/19/2022: Rachel completed radiation therapy on 06/16/2022: continued nausea with generalized weakness and diffuse body aches. She has pain over joints, pain rising to stand and ambulating. Labs reveal low cortisol and normal ACTH suggesting immunotherapy related adrenal insufficiency, thyroid function normal. We discussed holding pembrolizumab today and starting replacement dose hydrocortisone 20mg am/10mg pm. 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 We may give full dose slow prednisone taper if continued arthralgias on immunotherapy. Will determine whether she continues further pembrolizumab if persistent arthralgia. High complexity 45 minute visit to manage immunotherapy related adrenal insufficiency and arthralgia. 03/12/2022: Rachel is here following her needle localized lumpectomy with oncoplastic reconstruction of right breast with right mastopexy on 02/17/[address] Drs. Saunders/Drew ([facility]). 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 DCIS had estrogen receptor 5% and progesterone receptor negative therefore she is not a candidate for adjuvant hormonal therapy. -- Prior to neoadjuvant therapy the patient's clinical stage was T2N0 (baseline tumor about 2.5 cm by exam). Pathologic stage is ypTis pN0 pMx (3.5mm). She ishealing well with mild residual pain at sites but no drainage from incisions which are healing well. Due to in situ disease only, she does not require further chemotherapy and we will send her to radiation to discuss radiation for her in situ disease. As per the KEYNOTE-522 study, the patient will receive 9 additional cycles of pembrolizumab every 3 weeks following her radiation therapythen observation. The patient expresses understanding and will return after radiation oncology evaluation to and I will see her for follow-up cycle 2. High complexity 45-minute visit for review of outside operative notes and final pathology after right lumpectomy/reconstruction. 12/24/2021: Rachel presents after completing her 4th and last cycle of Adriamycin, Cytoxan and Pembrolizumab. She notes some lingering fatigue and nausea without vomiting. She also notes a few days of diarrhea with some improvement today. Otherwise she does not admit to any other complaints. Her labs are reviewed and stable overall, no significant cytopenias. She is unsure of hernext steps and has a lot of questions related to surgical options as well as if she will need radiation therapy. She met with Dr. Simons and has an appointment scheduled at [facility] to discuss josep flap surgery as well. We have advised her to follow-up with Dr. Reza to review her options and answer herquestions related to timing with the surgeon and plastic surgeon. We reviewed lumpectomy vs. mastectomy and the role radiation plays as well. We will plan to follow-up 2 weeks postop, and she will call us with her surgery date once decisions have been made. 12/03/2021: Rachel presents for cycle 3, week 2 toxicity check for Adriamycin/Cytoxan/Pembrolizumab. She continues to note fatigue and nausea but has not had any further neutropenia since dose reduction. We are coordinating evaluation by Dr. Simons with plastic surgery as well as Dr. Reza for planned end of therapy with last cycle due on December 17, 2021. The patient is undecided whether she would like to proceed with breast conservation option versus immediate reconstruction with mastectomy. Dr. Simons was contacted to arrange initial evaluation and she may see nurse practitioner for follow-up 1 week after her last cycle of Adriamycin/Cytoxan/Pembrolizumab. I will see her about 2 weeks postoperatively from her definitive therapy to review pathology and any further therapy options at that point. 11/12/2021: Rachel is here for cycle 2, week 2 toxicity check for Adriamycin/Cytoxan/Pembrolizumab. She was given 20% dose reduction Adriamycin and Cytoxan due to neutropenia last cycle and notes that she felt even more fatigued this cycle than prior cycle. She did not have any oral mucositis and met with Dr. Reza but he was unable to review her prior films. She did notrequire any further interventions since surgical clip was placed in the past. She still is undecided whether she will proceed with lumpectomy or mastectomy. I will refer her back for surgical evaluation after completion of her 4 cycles of Adriamycin/Cytoxan/Pembrolizumab. Currently she does not have any cytopeniasnoted recommend proceeding with same dose of therapy. 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 Next follow-up in 3 weeks fortoxicity check or sooner as needed. 10/22/2021: Rachel is here for toxicity check after cycle 1 of Adriamycin/Cytoxan/Pembrolizumab 1 week ago. She notes that she had increased fatigue and persistent nausea and her total white blood cell count is 1200 with ANC 100. No fever, chills, night sweats, or signs or symptoms of infection. Wediscussed dose reduction by 20% due to her neutropenia. Baseline echocardiogramprior to Adriamycin and Cytoxan was 55 to 60%. MRI of the breast was reviewed in comparison to her initial MRI in May 2022 that shows some progression ofher primary breast mass and one of the satellite lesions is no longer identified. Patient does note that after her breast MRI she did undergo placement of clip at the site of her prior lesions. She wanted to transfer her care for surgical evaluation by Dr. Reza and I will place consult for him to evaluate her to plan surgery following 3 more cycles of Adriamycin/Cytoxan/Pembroluzumab. Otherwise she will follow-up for next cycle of chemotherapy in 2 weeks and toxicity visit the following week after 20% dose reduction of both Adriamycin and Cytoxan. 10/08/2021: Rachel is here for followup after completing 4 cycles of neoadjuvant carboplatin AUC 5 with weekly paclitaxel 80 mg/m? and every 3-week Pembroluzumab 200 mg. She is on her last dose of 12-week paclitaxel today. We ordered an MRI on her and reviewed the images with her in clinic today but finalreport is still pending radiology read. I reviewed her case with breast medical oncologist Dr. Vinh Bucio who agreed that patient should likely continue on Adriamycin/Cytoxan/Pembrolizumab every 3 weeks for 4 more cycles as previously written. She had a baseline echocardiogram in May but we will repeat this prior to starting her next round of chemo in 1 week. Her next follow-up for toxicity visit will be cycle 1 week 2 and we will coordinate surgery evaluation based on her breast MRI to review her response to initial therapy. Symptoms are otherwise stable on weekly paclitaxel with minimal neuropathy. I contacted radiology and breast MRI should be read early next week. 09/24/2021: Rachel is a 46-year-old lady who is currently cycle 4-day 1 for neoadjuvant carboplatin AUC 5 (dose adjusted for adjusted body weight), weekly paclitaxel 80 mg/m?, and every 3-week Pembrolizumab 200 mg. She has tolerated chemotherapy reasonably well with nausea and IBS symptoms but she has not had any significant neutropenia. She has not noticed any clinical difference in herbreast exam, although in comparison to prior notes there is a 9 discrete area onexam 3 to 4 cm of thickening in the right 10:00 to 11:00 area. There is no skindimpling or nipple discharge or retraction. I do not feel any palpable masses in the axilla. Although the patient previously saw Dr. Red at diagnosis, she is uncertain of the plan for surgery. Since she had negative genetic testing it is unlikely that she will have bilateral mastectomy and reconstruction, however we can coordinate her evaluation by surgery locally if she wishes. --Otherwise we decided to proceed with her fourth cycle of carboplatin/paclitaxel/Pembrolizumab today. She had a baseline MRI and I will schedule repeat MRI after her fourth cycle and reevaluate her response to disease. Originally Dr. Phoenix had consented her to proceed with Adriamycin and Cytoxan with Pembrolizumab for 4 more cycles following her carboplatin/paclitaxel/Pembrolizumab. I will review this with tertiary breast medical oncologist Dr. Vinh Bucio to determine whether she should proceed with further therapy or be evaluated for surgery. Patient will follow up with me in approximately 2 weeks after her MRI to review subsequent plan of therapy. Previous notes from Dr. Phoenix, last seen 08/18/2021: Tenisha presents August 20, 2021 for cycle 2, day 7 of neoadjuvant chemotherapy for triple negative breast cancer. She does have some progressive alopecia. No nausea vomiting diarrhea. The breast mass in the right breast is not as evidence with deep palpation. Youcan still feel it but it appears to be smaller somewhat. In the right axilla there is a very small pinpoint hard nodule fairly superficial. Her tolerance to therapy to date has been overall good. BRCA testing was done through [employer] and is negative. She does have left foot numbness. MRI was done of the lumbar spine and does show multiple areas of degenerative disc disease. The patient has a known history of problem both in her lumbar spine and what appears in her cervical spine. I will refer her to Dr. Castle for consideration of kyphoplasty or other. I willdefer to his impression and recommendations. MOHEGAN: This is a 46 year old female, recently diagnosed with triple negative right breast cancer; currently undergoing neoadjuvant pembrolizumab, carboplatin AUC 4and weekly paclitaxel x6 cycles, which commenced: 07/22/2021. This is a 46-year-old female who works at [employer] with triple negative breast cancer, referred for neoadjuvant chemotherapy. Mammogramon on April 22, 2021 showed 3 new focal masses with the largest measuring 2 cm in size in the right breast. 2 additional lesions measuring 1 cm and a second 0.9 cm were also seen. The patient was referred for biopsy. Needle biopsy showed triple negative breast cancer, ER negative, LA negative, and H ER 2 -. The patient was referred to Dr. Ismael Red for Qotonp-s-Thpl which she has had placed. [facility]. Because of insurance reasons, she will be getting her treatment here at [facility]. She has had echocardiography as well. According the patient an MRI was obtained prior to neoadjuvant therapy while she was at [facility] we are requesting this prior study. She does have a palpable breast mass. It is in the lower mid quadrant of the right breast. Mammogram on on April 22, 2021 showed 3 new focal masses with the largest measuring 2 cm in size in the right breast. 2 additional lesions measuring 1 cmand a second 0.9 cm were also seen. The patient was referred for biopsy. Needle biopsy showed triple negative breast cancer, ER negative, LA negative, and HER 2 -. The patient was referred to Dr. Ismael Red for Cvnajt-n-Apim which she has had placed. She [facility] [facility]. Because of insurance reasons, she will be getting her treatment here at [facility]. She has had echocardiography as well. PET/CT scan was denied by insurance and she underwent CT scan of the chest/abdomen/pelvis on 07/16/2021 which showed no obvious evidence of distant metastatic disease. As noted above, Cycle 1, Day 1 (Carboplatin/Paclitaxel/Pembrolizumab) commenced 07/22/2021 and this was well tolerated. The patient went home that evening and began to feel flushed, general malaise, etc. She subsequently tested positive for COVID - 19 per PCR the following day, 07/23/2021. Her symptoms were quite mild; however, next cycle of chemotherapy was pushed out 2 days and she is here today for Cycle 1, Day 8 of single agent Paclitaxel. She does have a palpable breast mass in the lower mid quadrant of the right breast; she was concerned about a lump under her right axilla but upon exam wehad trouble locating a discrete nodule or lymph node. Otherwise, her only complaint is continued low back pain with radiculopathy involving the left groin/hip and left lower extremity with associated numbness in left foot. She has known neuroma of the left foot and was in the process of being worked up by pain management (Dr. Monique) for lumbar pain; radiculopathy. - Summary of Therapies Summary of Therapies: 1. Neoadjuvant Carboplatin AUC 5-day 1, Pembrolizumab 200 mg day 1, Paclitaxel 80 mg meter squared weekly each 21-day cycle for planned 4 cycles: started Cycle1, Day 1: 07/22/2021, cycle 4 09/24/2021 --Plan 10/15/2021: Start Pembrolizumab 200 mg day 1, doxorubicin 60 mg/m? day 1,and cyclophosphamide 600 mg/m? day 1 every 21 days x 4 cycles followed by adjuvant Pembrolizumab 200 mg IV every 21 days x 9 cycles --Original breast MRI obtained from [facility] from May 2021, follow-up breast MRI performed 10/07/2021 for initial response to therapy. Patient requested an opinion from Dr. Reza for planning breast surgery options based on MRI (she does note that prior biopsy clips were placed after her original MRI for further neoadjuvant therapy). -- 20% dose reduction doxorubicin and cyclophosphamide cycle 2 for neutropenia. Last dose of Adriamycin, cyclophosphamide, Pembrolizumab due 12/17/2021. End of therapy echo may be ordered preoperatively in late December. 2. 02/17/2022 at [facility], Drs. Saunders/Shantal: needle localized lumpectomy with oncoplastic reconstruction of right breast with right mastopexy 3. Adjuvant radiation: Right SCV axilla 5000 cGy 05/04-06/07/22 25 fractions over 34 elapsed days. Right breast 5000 cGy 05/04-06/07/22 25 fractions over 34elapsed days. Cavity boost 1000 cGy 06/08-06/16/2022 5 fractions over 8 days. 4. Resumed Immunotherapy Pembrolizumab 200 mg IV every 3 weeks for 9 more cycles--first/only postop dose was 05/28/2022. Stopped 06/18/2022 after 1 postopdose due to immunotherapy related arthralgias/myalgia and adrenal insufficiency. No hormonal therapy indicated for triple negative disease. Continue to hold Pembroluzumab follow-up 07/23/2022 -- Plan to resume Pembrolizumab 200 mg IV every 3 weeks on 08/13/2022 for 8 more cycles. We will maintain prednisone 10 mg daily for immunotherapy related myalgias and adrenal insufficiency. ROS Details: All systems reviewed & no additional complaints except as documented [facility] - Medical History Medical History: Medical History (Last Reviewed 08/07/22 @ 12:37 by Kallie Chang MD) Arthritis COVID-19 Headache High blood cholesterol - Surgical History Surgical History: Surgical History (Last Reviewed 08/07/22 @ 12:37 by Kallie Chang MD) History of breast biopsy right 05/26/2021 History of carpal tunnel release History of cholecystectomy History of foot surgery right - Family History Family History: Family History (Last Reviewed 08/07/22 @ 12:37 by Kallie Chang MD) Brother Lung cancer Father Cancer Mother COPD (chronic obstructive pulmonary disease) - Social History Smoking Status: Former smoker Tobacco Type: cigarettes Substance Use Type: None Home Medications & Allergies Allergies No Known Allergies Allergy (Verified 08/06/22 13:31) Home Medications lupsmic-kqxmzzsqswkks-ublacidy 250 mg-250 mg-65 mg tablet (Excedrin Migraine) 1 tab PO Q4-6H PRN Headache 07/08/21 [History Confirmed 08/14/22] citalopram 20 mg tablet 20 mg PO DAILY 07/08/21 [History Confirmed 08/14/22] omeprazole 20 mg capsule,delayed release 20 mg PO DAILY 07/08/21 [History Confirmed 08/14/22] ondansetron 8 mg disintegrating tablet 8 mg PO Q8H #90 tabs 06/02/22 [Rx Confirmed 08/14/22] prednisone 20 mg tablet 20 mg PO DIRECTED 08/14/22 [History Confirmed 08/14/22] prednisone 5 mg tablet 10 mg PO DAILY 30 days #60 tabs 08/17/22 [Rx] Objective - Height/Weight Height/Weight: Height 5 ft 3 in Weight 79.6 kg BSA for Today's Weight 1.85 - Vital Signs Vital Signs: 08/14/22 14:08 Pulse Rate [Left Brachial] 72 Respiratory Rate 18 Blood Pressure [Left Arm] 103/68 02 Sat by Pulse Oximetry 99 Oxygen Delivery Method Room Air - Pain Left Shoulder Pain Intensity: 5 Lower Back Pain Intensity: 4 Generalized Left Pain Intensity: 5 Generalized Pain Intensity: 5 Physical Exam Narrative: GENERAL: Alert, pleasant, no acute distress, no longer noted to have hip pain with ambulating and ambulates independently. HEENT: Oral mucosa is pink/moist; no lesions or exudate. Neck supple without adenopathy or thyromegaly. HEART: RRR; no murmurs/rubs or gallops; S1 and S2 normal. No edema. LUNGS: CTA bilaterally; no wheezes or crackles. Normal respiratory effort. ABDOMEN: Soft, non tender. BS present x 4 quadrants. No HSM. INTEGUMENTARY: Warm, dry; no skin rashes. LYMPHATICS: No lymphadenopathy appreciated. MUSCULOSKELETAL: No vertebral tenderness or step-off deformity. No palpable synovitis of joints. NEUROLOGICAL: Grossly intact, patient is alert and oriented x 3; improved gait, no focal deficits. 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 Right lumpectomy/breast reconstruction/mastopexy 02/17/2022--small area of ductal carcinoma in situ 3.5 mm but no invasive disease. 5 lymph nodes were negative for carcinoma. (1) Breast cancer Qualifiers: Breast location: overlapping sites of breast Patient sex: female Laterality: right Patient is a now 47-year-old female presenting with 3 discernible masses by mammography (04/22/2021) with needle biopsy confirming triple negative breast cancer. She was initially see in consultation by Dr. Smith at [facility] in [place], [place]; however, due to insurance reasons the [facility]. In reviewing notes from her prior physician from 06/20/2021 she had 3 focal nodules with largest measuring 2 x 1.8 cm 6 o'clock position, 2 additional lesions measuring 1 x 0.7 cm and another 0.9 x 0.6 cm. BI-RADS spot compression view right breast showed persistent 2.4 x 2.2 cm partially obscured round mass with pleomorphic calcifications. She did have breast MRI prior to initiation of neoadjuvant therapy which I do not have records from this from [facility] in [place]. I am requesting this to evaluate her baseline study since transfer of care from Dr. Phoenix to myself. She also had reported normal baseline echo in May 2021. She commenced neoadjuvant Carboplatin/Paclitaxel/Pembrolizumab therapy on 07/22/2021; Our treatment plan will be pembrolizumab 200 mg IV every 3 weeks with weekly paclitaxel 80 mg/m? IV and q. 21 days carboplatin AUC 5 for 4 cycles. This treatment regimen is based on KEYNOTE 522 trial and is now standard of careand NCCN guidelines. After review of her MRI from outside hospital, I will repeat her breast MRI for new baseline here. If stable to responding disease wemay continue prior plan for followed by pembrolizumab every 3 weeks with Adriamycin and cyclophosphamide for 4 cycles. The patient would like reassessment by general surgery for surgical plan and we will determine whether she proceeds with mastectomy or lumpectomy based on his results. Baseline genetic testing returned negative from prior physicians at [facility]. BRCA testing negative Follow-up September is cycle 4 -day 1. Tolerance is overall good-- Proceed with cycle 4 with breast MRI prior to 2-week follow-up in comparison to baseline MRI. This will be useful in surgical planning. I am discussing her case with tertiary breast oncology Dr. Vinh Bucio to see if he concurs withthis plan. If decision is made to commence AC Pembroluzumab we will repeat her echocardiogram prior to this and obtain her prior echo results. --Physical exam may be showing some evidence of response with the lump in the right breast being not as conspicuous as compared to prior notes although it is unclear to evaluate by exam, therefore MRI is ordered. --My plan at this time will be to press on and continue our chemotherapy per plan. I will see her in 2 weeks. 10/08/2021: Patient is here for her last paclitaxel prior to changing agents for neoadjuvant therapy to Adriamycin/cyclophosphamide/pembrolizumab. She is due for follow-up echocardiogram prior to starting anthracycline. She had discussedpotentially changing surgeons to Dr. Reza and I contacted him regarding breast MRI for surgical planning. We will review her prior MRI from [facility] in May 2021 in comparison to most recent MRI (report pending). Of note outside MRI noted no biopsy clips in place and we may need to rebiopsy to place clips at sites of residual tumor masses prior to continuing further neoadjuvant therapy. We will coordinate a time for him to meet with the patientto discuss surgical options of lumpectomy versus mastectomy. Patient will commence her Adriamycin/cyclophosphamide/Pembrolizumab at 10/15/2021 and I will follow-up with her in early October for toxicity visit for tolerance. 10/22/2021: Change to Adriamycin/cyclophosphamide/Pembrolizumab with neutropenia noted but no fever. Echocardiogram at baseline was 55 to 60%. Other than nausea no other significant toxicities. MRI was reviewed and [facility] tumor board with Dr. Reza and he will be arranging evaluation for surgical options. Consultation was placed to him today. We willdose reduce Adriamycin and cyclophosphamide both by 20% due to her neutropenia. Otherwise may proceed with chemotherapy in 2 weeks he can follow-up in 3 weeks either with myself or nurse practitioner for toxicity review. 11/12/2021: Here for cycle 2-day 8 toxicity visit on now 20% dose reduced Adriamycin/cyclophosphamide/Pembrolizumab due to neutropenia without fever last cycle. Persistent fatigue and nausea without mouth ulcers. No neutropenia thiscycle. The patient met with Dr. Reza and will follow-up with her at end oftherapy. She is still not decided whether she would like to proceed with lumpectomy or mastectomy plus minus reconstruction. We will coordinate 3-week follow-up toxicity visit with nurse practitioner cycle 3-day 8--no dose reduction since she does not have any significant cytopenias. 12/03/2021: Here for cycle 3-day 8 toxicity visit on 20% dose reduced Adriamycin/cyclophosphamide/Pembrolizumab with no new toxicities. No cytopeniasare noted. I am coordinating plastic surgery consultation with Dr. Berny Simons prior to evaluation by Dr. Reza to determine surgical approach. She will have 1 more dose of chemotherapy due on 12/17/2021 and will follow-up with nurse practitioner 1 week following her chemo. She will require end of therapy echocardiogram in late December. I will see her in follow-up 2 weeks after her definitive surgery to review pathology and further plan for therapy/surveillance. Moderate complexity visit over 35 minutes for symptom review on chemotherapy, coordination with Dr. Simons and Dr. Reza of breast surgery for surgical plan. 12/24/2021: She is here for toxicity check after completion of 4 cycles of AC+Pembro. She has some lingering fatigue and nausea, but otherwise ok. Labs reviewed and ok. She will schedule follow-up with Dr. Reza to discuss surgical intervention and schedule surgery. We will plan for follow-up 2 weeks postop to discuss final pathology and next steps. She will call us with the scheduled surgery date. Her end of treatment ECHO is scheduled for 01/07/2022. 03/12/2022: Patient returns after right lumpectomy/breast reconstruction/mastopexy 02/17/2022 well-healed without complaints. 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 5 lymph nodes were negative for carcinoma. We discussed referral to radiation oncology after she has well-healed, then she may resume pembrolizumab 200 mg IV every 3 weeks for 9 further cycles as per KEYNOTE 522. No hormonal therapy indicated due to triple negative breast cancer. I will see her in follow-up with immunotherapy labs adjuvant cycle 2-day 1 Pembrolizumab orsooner if new issues arise. High complexity visit over 45 minutes to review outside operative notes, pathology, and to discuss adjuvant radiation and immunotherapy. 06/19/2022: Patient has now completed her adjuvant radiation therapy on 06/16/2022. She resumed her first postop dose of Pembrolizumab on 05/28/2022 and hashad intractable arthralgias and myalgias. She is also has had nausea and vomiting and is noted to have cortisol level of 0.2 with normal ACTH. This is consistent with immunotherapy induced adrenal insufficiency. We will hold pembrolizumab today and start hydrocortisone 20 mg a.m./10 mg p.m. reassessed byNP in 1 week to see if arthralgia symptoms are improved. If she has persistent arthralgias and myalgias she may get full dose prednisone with slow taper (prednisone 60 mg x 1 week, 40 mg x 1 week, 20 mg x 1 week, 10 mg x 1 week). Ifarthralgias completely resolved with hydrocortisone therapy we may consider resuming Keytruda for remaining doses. Next follow-up with me will be in around6 weeks or sooner as needed. High complexity visit over 45 minutes to address new toxicities. 07/23/2022: As per HPI the patient has improvement of gait but still has persistent myalgias and arthralgias of bilateral wrists. Also has persistent nausea despite compliance with replacement dose hydrocortisone. Since she has persistent nausea and arthralgias/myalgias with persistently low fasting cortisol she will be treated with full dose prednisone with slow taper (prednisone 60 mg x 1 week, 40 mg x 1 week, 20 mg x 1 week, 10 mg x 1 week). Continue to hold Pembroluzumab and follow-up in about 1 month for symptom review(with nurse practitioner at that time). No evidence of recurrence on clinical exam. Moderate complexity 30-minute follow-up of immunotherapy related toxicities. 08/06/2022: Significant improvement of myalgias since higher dose prednisone dosing with taper. She completed her first 2 weeks and starts 20 mg daily x1 week tomorrow. Due to her adrenal insufficiency I will have her maintain prednisone 10 mg daily. After discussion of risks and benefits she wishes to resume Pembrolizumab on 08/13/2022 and will have toxicity follow-up with Nurse Practitioner the following week. The goal will be to complete 8 more cycles of adjuvant pembrolizumab every 3 weeks. I will see her in follow-up in 3 months for full exam and immunotherapy labs. Is a moderate complexity 35-minute follow-up of her symptoms on prednisone taper, decision to resume immunotherapy. 08/21/2022: She had improvement in her myalgias and fatigue with addition of steroids to her treatment regimen. She maintains on 10mg prednisone currently. Her fatigue was more significant over the weekend after treatment, but this weekhas improved quite a bit. She still had diffuse myalgias, but much improved. Labs stable overall. She will follow-up in 3wks after discussion to see how she tolerates the next cycle and if adjustments will need made to her steroids. Thiswill be discussed further at follow-up. 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 persistent symptoms at follow-up 07/23/2022 and changed to full dose prednisone with slow taper (prednisone 60 mg x 1 week, 40 mg x 1 week, 20 mg x 1 week, 10 mg x 1 week). 08/06/2022: Symptoms improved with higher dose prednisone. She will resume Pembrolizumab 08/13/2022 and maintain prednisone 10 mg daily. We can titrate prednisone as needed for adrenal insufficiency and myalgias. 08/14/2022: Tolerated pembro better with addition of 10mg prednisone. No repeat ACTH yet (3) Lumbar back pain with radiculopathy affecting left lower extremity Lumbar MRI results previously reviewed--degenerative disc disease but no evidence of metastatic cancer. Previously referred to Dr. Jameson Castle for his recommendations. (4) Arthralgia of multiple sites, bilateral This is also deemed associated with immunotherapy. She has had good response response to prednisone over the last 2 weeks and will resume Pembrolizumab next week with low-dose prednisone therapy. 08/14/2022: Improved with addition of steroids to treatment regimen. Will monitorclosely (5) Encounter for antineoplastic immunotherapy Good partial pathologic response with only a small focus of residual DCIS, ER 5%, LA 0%. Completed adjuvant radiation then we resumed pembrolizumab 200 mg IVevery 3 weeks for 9 cycles in May 2022. Pembrolizumab on hold for 2 months for immunotherapy related adrenal insufficiency and arthralgias. Improvement with steroid course and decision to resume therapy 08/13/2022. - Chemo Plan Number of Cycles: 8 Goal of Treatment: Curative - Time with Patient Time Spent with Patient (Follow Up Visit): 35 minutes - Moderate complexity 30 visit for review of symptoms of immunotherapy related adrenal insufficiency, arthralgia/myalgia. Plan to resume Keytruda 08/13/2021 and continue prednisone for symptom management. Good pathologic response with DCIS only on pathology Coordination of Care & Counseling Time: Greater than 50% of time spent with patient was for coordination of care (as documented) and [id number] counseling of patient and/or family. Dictated By: Ashlie Arriaga APRN DD/ [id number] Signed By: <Electronically signed by PETE Arriaga> 08/21/22 13[address] [facility] Work Phone: [phone]) 952-995501-20-2023 Progress note Author Kallie Chang [facility] August 07, 2022 1:00pm Note Date/Time August 06, 2022 1 :39pm [facility] [place] [id number] Hem/Onc Follow Up Note - OP Signed Patient: Tenisha Hancock MR#: [id number] : 1975 Acct:[id number] Age/Sex: 47 / F Type: REG RCR Copies to: MD Eliel Perdue MD~ Subjective Date/Time of Service: Date of Service: 08/06/2022 Time of Service: 13:38 Chief Complaint: Patient is here today for a two week follow up visit and she isfeeling better HPI: 08/06/2022: Rachel is here for 2-week follow-up. She notes that she feels much improved since starting full dose steroids. She is now tapered down to 20 mg daily starting tomorrow. We discussed potential risks and benefits of resuming immunotherapy with pembrolizumab maintenance x1 year. Since she has immunotherapy related adrenal insufficiency, we will complete the next week of prednisone at 20 mg daily, then maintain prednisone dose at 10 mg daily and she wishes to resume pembrolizumab maintenance starting 08/13/2022. We will coordinate follow-up 1 week later with nurse practitioner to review side effects. If well-tolerated she will continue current dosing and follow-up with me at 3 months for exam. Moderate complexity 30-minute follow-up to review symptoms on prednisone taper and coordinate resuming immunotherapy. 07/23/2022: Rachel is here for 1 month follow-up after holding Pembroluzumab dueto multiple suspected immunotherapy related symptoms. She previously was havingdiffuse body aches with difficulty ambulating due to joint pain. Her joint painis now pretty much localized to her wrists and she is ambulating without assistance, however she still has profound fatigue. She was also noted to have persistently low cortisol level of 2.6 with ACTH <1.5 despite compliance with replacement dose hydrocortisone 20 mg a.m., 10 mg p.m. she sometimes notes that she forgets to take the evening dose. CBC shows stable hemoglobin 11 with normal white count and platelets. Sodium mildly low at 135 but otherwise normalelectrolytes and liver function test. TSH and free T4 normal. I recommended increasing steroid dose to prednisone 60 mg daily for 1 week, then 40 mg daily for 1 week then 20 mg daily for 1 week, then 10 mg daily for 1 week with reassessment in 1 month. We will continue to hold Pembroluzumab immunotherapy and reevaluate whether she is able to continue adjuvant immunotherapy or observation only. This is a moderate complexity visit over 30 minutes for review of symptoms with immunotherapy related adrenal insufficiency and myalgias. 06/19/2022: Rachel completed radiation therapy on 06/16/2022: continued nausea with generalized weakness and diffuse body aches. She has pain over joints, pain rising to stand and ambulating. Labs reveal low cortisol and normal ACTH suggesting immunotherapy related adrenal insufficiency, thyroid function normal. We discussed holding pembrolizumab today and starting replacement dose hydrocortisone 20mg am/10mg pm. 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 We may give full dose slow prednisone taper if continued arthralgias on immunotherapy. Will determine whether she continues further pembrolizumab if persistent arthralgia. High complexity 45 minute visit to manage immunotherapy related adrenal insufficiency and arthralgia. 03/12/2022: Rachel is here following her needle localized lumpectomy with oncoplastic reconstruction of right breast with right mastopexy on 02/17/2022 by Drs. Saunders/Drew ([facility]). 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 DCIS had estrogen receptor 5% and progesterone receptor negative therefore she is not a candidate for adjuvant hormonal therapy. -- Prior to neoadjuvant therapy the patient's clinical stage was T2N0 (baseline tumor about 2.5 cm by exam). Pathologic stage is ypTis pN0 pMx (3.5mm). She ishealing well with mild residual pain at sites but no drainage from incisions which are healing well. Due to in situ disease only, she does not require further chemotherapy and we will send her to radiation to discuss radiation for her in situ disease. As per the KEYNOTE-522 study, the patient will receive 9 additional cycles of pembrolizumab every 3 weeks following her radiation therapythen observation. The patient expresses understanding and will return after radiation oncology evaluation to and I will see her for follow-up cycle 2. High complexity 45-minute visit for review of outside operative notes and final pathology after right lumpectomy/reconstruction. 12/24/2021: Rachel presents after completing her 4th and last cycle of Adriamycin, Cytoxan and Pembrolizumab. She notes some lingering fatigue and nausea without vomiting. She also notes a few days of diarrhea with some improvement today. Otherwise she does not admit to any other complaints. Her labs are reviewed and stable overall, no significant cytopenias. She is unsure of her next steps and has a lot of questions related to surgical options as wellas if she will need radiation therapy. She met with Dr. Simons and has an appointment scheduled at [facility] to discuss josep flap surgery as well. We have advised her to follow-up with Dr. Reza to review her options and answer her questions related to timing with the surgeon and plastic surgeon. We reviewed lumpectomy vs. mastectomy and the role radiation plays as well. We will plan to follow-up 2 weeks postop, and she will call us with her surgery date once decisions have been made. 12/03/2021: Rachel presents for cycle 3, week 2 toxicity check for Adriamycin/Cytoxan/Pembrolizumab. She continues to note fatigue and nausea but has not had any further neutropenia since dose reduction. We are coordinating evaluation by Dr. Simons with plastic surgery as well as Dr. Reza for planned end of therapy with last cycle due on December 17, 2021. The patient is undecided whether she would like to proceed with breast conservation option versus immediate reconstruction with mastectomy. Dr. Simons was contacted to arrange initial evaluation and she may see nurse practitioner for follow-up 1 week after her last cycle of Adriamycin/Cytoxan/Pembrolizumab. I will see her about 2 weeks postoperatively from her definitive therapy to review pathology and any further therapy options at that point. 11/12/2021: Rachel is here for cycle 2, week 2 toxicity check for Adriamycin/Cytoxan/Pembrolizumab. She was given 20% dose reduction Adriamycin and Cytoxan due to neutropenia last cycle and notes that she felt even more fatigued this cycle than prior cycle. She did not have any oral mucositis and met with Dr. Reza but he was unable to review her prior films. She did notrequire any further interventions since surgical clip was placed in the past. She still is undecided whether she will proceed with lumpectomy or mastectomy. I will refer her back for surgical evaluation after completion of her 4 cycles of Adriamycin/Cytoxan/Pembrolizumab. Currently she does not have any cytopeniasnoted recommend proceeding with same dose of therapy. 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 Next follow-up in 3 weeks fortoxicity check or sooner as needed. 10/22/2021: Rachel is here for toxicity check after cycle 1 of Adriamycin/Cytoxan/Pembrolizumab 1 week ago. She notes that she had increased fatigue and persistent nausea and her total white blood cell count is 1200 with ANC 100. Nofever, chills, night sweats, or signs or symptoms of infection. We discussed dose reduction by 20% due to her neutropenia. Baseline echocardiogram prior to Adriamycin and Cytoxan was 55 to 60%. MRI of the breast was reviewed in comparison to her initial MRI in May 2022 that shows some progression of her primary breast mass and one of the satellite lesions is no longer identified. Patient does note that after her breast MRI she did undergo placement of clip at the site of her prior lesions. She wanted to transfer her care for surgical evaluation by Dr. Reza and I will place consult for him to evaluate her to plan surgery following 3 more cycles of Adriamycin/Cytoxan/Pembroluzumab. Otherwise she will follow-up for next cycle of chemotherapy in 2 weeks and toxicity visit the following week after 20% dose reduction of both Adriamycin and Cytoxan. 10/08/2021: Rachel is here for followup after completing 4 cycles of neoadjuvant carboplatin AUC 5 with weekly paclitaxel 80 mg/m? and every 3-week Pembroluzumab 200 mg. She is on her last dose of 12-week paclitaxel today. We ordered an MRI on her and reviewed the images with her in clinic today but finalreport is still pending radiology read. I reviewed her case with breast medical oncologist Dr. Vinh Bucio who agreed that patient should likely continue on Adriamycin/Cytoxan/Pembrolizumab every 3 weeks for 4 more cycles as previously written. She had a baseline echocardiogram in May but we will repeat this prior to starting her next round of chemo in 1 week. Her next follow-up for toxicity visit will be cycle 1 week 2 and we will coordinate surgery evaluation based on her breast MRI to review her response to initial therapy. Symptoms are otherwise stable on weekly paclitaxel with minimal neuropathy. I contacted radiology and breast MRI should be read early next week. 09/24/2021: Rachel is a 46-year-old lady who is currently cycle 4-day 1 for neoadjuvant carboplatin AUC 5 (dose adjusted for adjusted body weight), weekly paclitaxel 80 mg/m?, and every 3-week Pembrolizumab 200 mg. She has tolerated chemotherapy reasonably well with nausea and IBS symptoms but she has not had any significant neutropenia. She has not noticed any clinical difference in herbreast exam, although in comparison to prior notes there is a 9 discrete area onexam 3 to 4 cm of thickening in the right 10:00 to 11:00 area. There is no skindimpling or nipple discharge or retraction. I do not feel any palpable masses in the axilla. Although the patient previously saw Dr. Red at diagnosis, she is uncertain of the plan for surgery. Since she had negative genetic testing it is unlikely that she will have bilateral mastectomy and reconstruction, however we can coordinate her evaluation by surgery locally if she wishes. --Otherwise we decided to proceed with her fourth cycle of carboplatin/paclitaxel/Pembrolizumab today. She had a baseline MRI and I will schedule repeat MRI after her fourth cycle and reevaluate her response to disease. Originally Dr. Phoenix had consented her to proceed with Adriamycin and Cytoxan with Pembrolizumab for 4 more cycles following her carboplatin/paclitaxel/Pembrolizumab. I will review this with tertiary breast medical oncologist Dr. Vinh Bucio to determine whether she should proceed with further therapyor be evaluated for surgery. Patient will follow up with me in approximately 2 weeks after her MRI to review subsequent plan of therapy. Previous notes from Dr. Phoenix, last seen 08/18/2021: Tenisha presents August 20, 2021 for cycle 2, day 7 of neoadjuvant chemotherapy for triple negative breast cancer. She does have some progressive alopecia. No nausea vomiting diarrhea. The breast mass in the right breast is not as evidence with deep palpation. Youcan still feel it but it appears to be smaller somewhat. In the right axilla there is a very small pinpoint hard nodule fairly superficial. Her tolerance to therapy to date has been overall good. BRCA testing was done through [employer] and is negative. She does have left foot numbness. MRI was done of the lumbar spine and does show multiple areas of degenerative disc disease. The patient has a known history of problem both in her lumbar spine and what appears in her cervical spine. I will refer her to Dr. Castle for consideration of kyphoplasty or other. I willdefer to his impression and recommendations. MOHEGAN: This is a 46 year old female, recently diagnosed with triple negative right breast cancer; currently undergoing neoadjuvant pembrolizumab, carboplatin AUC 4and weekly paclitaxel x6 cycles, which commenced: 07/22/2021. This is a 46-year-old female who works at [employer] with triple negative breast cancer, referred for neoadjuvant chemotherapy. Mammogramon on April 22, 2021 showed 3 new focal masses with the largest measuring 2 cm in size in the right breast. 2 additional lesions measuring 1 cm and a second 0.9 cm were also seen. The patient was referred for biopsy. Needle biopsy showed triple negative breast cancer, ER negative, LA negative, and H ER 2 -. The patient was referred to Dr. Ismael Red for [id number] which she has had placed. [facility]. Because of insurance reasons, she will be getting her treatment here at [facility]. She has had echocardiography as well. According the patient an MRI was obtained prior to neoadjuvant therapy while she was at [facility] we are requesting this prior study. She does have a palpable breast mass. It is in the lower mid quadrant of the right breast. Mammogram on on April 22, 2021 showed 3 new focal masses with the largest measuring 2 cm in size in the right breast. 2 additional lesions measuring 1 cmand a second 0.9 cm were also seen. The patient was referred for biopsy. Needle biopsy showed triple negative breast cancer, ER negative, LA negative, and HER 2 -. The patient was referred to Dr. Ismael Red for [id number] which she has had placed. She has [facility]. Because of insurance reasons, she will be getting her treatment here at [facility]. She has had echocardiography as well. PET/CT scan was denied by insurance and she underwent CT scan of the chest/abdomen/pelvis on 07/16/2021 which showed no obvious evidence of distant metastatic disease. As noted above, Cycle 1, Day 1 (Carboplatin/Paclitaxel/Pembrolizumab) commenced 07/22/2021 and this was well tolerated. The patient went home that evening and began to feel flushed, general malaise, etc. She subsequently tested positive for COVID - 19 per PCR the following day, 07/23/2021. Her symptoms were quite mild; however, next cycle of chemotherapy was pushed out 2 days and she is here today for Cycle 1, Day 8 of single agent Paclitaxel. She does have a palpable breast mass in the lower mid quadrant of the right breast; she was concerned about a lump under her right axilla but upon exam wehad trouble locating a discrete nodule or lymph node. Otherwise, her only complaint is continued low back pain with radiculopathy involving the left groin/hip and left lower extremity with associated numbness in left foot. She has known neuroma of the left foot and was in the process of being worked up by pain management (Dr. Monique) for lumbar pain; radiculopathy. - Summary of Therapies Summary of Therapies: 1. Neoadjuvant Carboplatin AUC 5-day 1, Pembrolizumab 200 mg day 1, Paclitaxel 80 mg meter squared weekly each 21-day cycle for planned 4 cycles: started Cycle1, Day 1: 07/22/2021, cycle 4 09/24/2021 --Plan 10/15/2021: Start Pembrolizumab 200 mg day 1, doxorubicin 60 mg/m? day 1,and cyclophosphamide 600 mg/m? day 1 every 21 days x 4 cycles followed by adjuvant Pembrolizumab 200 mg IV every 21 days x 9 cycles --Original breast MRI obtained from [facility] from May 2021, follow-up breast MRI performed 10/07/2021 for initial response to therapy. Patient requested an opinion from Dr. Reza for planning breast surgery options based on MRI (she does note that prior biopsy clips were placed after her original MRI for further neoadjuvant therapy). -- 20% dose reduction doxorubicin and cyclophosphamide cycle 2 for neutropenia. Last dose of Adriamycin, cyclophosphamide, Pembrolizumab due 12/17/2021. End of therapy echo may be ordered preoperatively in late December. 2. 02/17/2022 at [facility], Drs. Saunders/Shantal: needle localized lumpectomy with oncoplastic reconstruction of right breast with right mastopexy 3. Adjuvant radiation: Right SCV axilla 5000 cGy 05/04-06/07/22 25 fractions over 34 elapsed days. Right breast 5000 cGy 05/04-06/07/22 25 fractions over 34elapsed days. Cavity boost 1000 cGy 06/08-06/16/2022 5 fractions over 8 days. 4. Resumed Immunotherapy Pembrolizumab 200 mg IV every 3 weeks for 9 more cycles--first/only postop dose was 05/28/2022. Stopped 06/18/2022 after 1 postopdose due to immunotherapy related arthralgias/myalgia and adrenal insufficiency. No hormonal therapy indicated for triple negative disease. Continue to hold Pembroluzumab follow-up 07/23/2022 -- Plan to resume Pembrolizumab 200 mg IV every 3 weeks on 08/13/2022 for 8 more cycles. We will maintain prednisone 10 mg daily for immunotherapy related myalgias and adrenal insufficiency. ROS Details: All systems reviewed & no additional complaints except as documented Subjective/ROS - Narrative: CONSTITUTIONAL: Positive for generalized fatigue (not improved on replacement dose hydrocortisone), negative for fever or night sweats. Still able to performactivities of daily living. HEAD AND NECK: Negative for changes in hearing and vision. Negative for mouth ulcers, nasal congestion and nasal drainage. BREASTS: Status post right lumpectomy with oncoplastic reconstruction/right mastopexy well-healed incisions without tenderness to palpation. No lymphedema or axillary fullness right. Left breast and axilla unremarkable. PULMONARY: Negative for chest pain, cough and dyspnea. CARDIOVASCULAR: Negative for claudication and irregular heartbeat/palpitations. GASTROINTESTINAL: Negative for abdominal pain, constipation, decreased appetite,diarrhea. Positive for recent nausea/vomiting over the past 2 to 3 weeks--persistent nausea despite hydrocortisone (increasing to higher dose prednisone 07/23 visit). GENITOURINARY: Negative for dysuria and hematuria. ENDOCRINE: Negative for cold intolerance and heat intolerance. Positive for fatigue and nausea due to immunotherapy related adrenal insufficiency--started hydrocortisone 20 mg a.m./10 mg p.m. at 06/18/2022 visit--changed to higher dose prednisone 07/23 visit). Significantly improved myalgias at 08/06/2022 visit. CENTRAL NERVOUS SYSTEM: Improvement of prior gait disturbance due to myalgia/arthralgia at 07/23 visit but still persistent bilateral wrist pain. Negative for headache. No significant motor neuropathy or focal deficits. PSYCHIATRIC: Negative for anxiety. Positive distress mood regarding recent symptoms. DERMATOLOGICAL: Negative for pruritus and rash. Negative for suspicious skin lesions. MUSCULOSKELETAL: Stable lumbar back pain. New generalized arthralgias and myalgias--noted at 06/18 visit, stopped immunotherapy for symptoms. HEMATOLOGICAL: Negative for bleeding and easy bruising. Negative for history of transfusion or thromboembolic disease. Laboratories with cycle 1 AC Pembroluzumab showed neutropenia without fever. No neutropenia after dose reduction cycle 2. ALLERGY: Negative for environmental allergies and food allergies. PMFSH - History Attestation statement: The following information was validated with the patient. Source: Old Records Reviewed - Medical History Medical History: Medical History (Last Reviewed 08/07/22 @ 12:37 by Kallie Chang MD) Arthritis COVID-19 Headache High blood cholesterol - Surgical History Surgical History: Surgical History (Last Reviewed 08/07/22 @ 12:37 by Kallie Chang MD) History of breast biopsy right 05/26/2021 History of carpal tunnel release History of cholecystectomy History of foot surgery right - Family History Family History: Family History (Last Reviewed 08/07/22 @ 12:37 by Kallie Chang MD) Brother Lung cancer Father Cancer Mother COPD (chronic obstructive pulmonary disease) - Social History Smoking Status: Former smoker Tobacco Type: cigarettes Substance Use Type: None Home Medications & Allergies Allergies No Known Allergies Allergy (Verified 08/06/22 13:31) Home Medications yciqwry-xiocnddqstruw-vbdxcdor 250 mg-250 mg-65 mg tablet (Excedrin Migraine) 1 tab PO Q4-6H PRN Headache 07/08/21 [History Confirmed 08/06/22] citalopram 20 mg tablet 20 mg PO DAILY 07/08/21 [History Confirmed 08/06/22] omeprazole 20 mg capsule,delayed release 20 mg PO DAILY 07/08/21 [History Confirmed 08/06/22] ondansetron 8 mg disintegrating tablet 8 mg PO Q8H #90 tabs 06/02/22 [Rx Confirmed 08/06/22] Objective - Height/Weight Height/Weight: Height 5 ft 3 in Weight 76.1 kg BSA for Today's Weight 2.01 - Vital Signs Vital Signs: 08/06/22 13:31 Temperature 97.8 F Pulse Rate [Left Brachial] 60 Respiratory Rate 16 Blood Pressure [Left Arm] 115/78 02 Sat by Pulse Oximetry 95 Oxygen Delivery Method Room Air - Pain Left Shoulder Pain Intensity: 5 Lower Back Pain Intensity: 4 Generalized Left Pain Intensity: 5 Physical Exam Narrative: GENERAL: Alert, pleasant, no acute distress, no longer noted to have hip pain with ambulating and ambulates independently. Full exam deferred. See exam below from 07/23/2022. HEENT: Oral mucosa is pink/moist; no lesions or exudate. Neck supple without adenopathy or thyromegaly. BREAST: Well-healed incisions from right lumpectomy with breast reconstruction/mastopexy. No masses left breast. No axillary fullness or tenderness. HEART: RRR; no murmurs/rubs or gallops; S1 and S2 normal. No edema. LUNGS: CTA bilaterally; no wheezes or crackles. Normal respiratory effort. ABDOMEN: Soft, non tender. BS present x 4 quadrants. No HSM. INTEGUMENTARY: Warm, dry; no skin rashes. LYMPHATICS: No lymphadenopathy appreciated. MUSCULOSKELETAL: No vertebral tenderness or step-off deformity. No palpable synovitis of joints. Decreased range of motion wrists due to arthralgias/myalgia. NEUROLOGICAL: Grossly intact, patient is alert and oriented x 3; improved gait, no focal deficits. - ECOG Performance Status ECOG Score: 1 Results - Labs Labs: Diagram of Most Recent CBC and CMP 08/05/22 13:45 08/05/22 13:45 Labs - Last 7 Days 08/05/22 13:45: ACTH <1.5 L 08/05/22 13:45: PHA Creatinine Clear 67.73, Sodium 135 L, Potassium 4.6, Chloride 99, Carbon Dioxide 24.0, Anion Gap 16.6 H, BUN 15, Creatinine 1.03, EstGFR ( Amer) > 60, Est GFR (Non-Af Amer) 58, Glucose 164 H, Calcium 9.1, Total Bilirubin 0.7, AST 18, ALT 16, Alkaline Phosphatase 89, Lactate Dehydrogenase 169, Total Protein 6.7, Albumin 3.8, Globulin 2.9, Albumin/Globulin Ratio 1.3, Free T4 0.71, TSH 3rd Generation 0.70 08/05/22 13:45: PHA Creatinine Clear 69.07, Sodium 136, Potassium 4.6, Chloride 101, Carbon Dioxide 25.1, Anion Gap 14.5, BUN 15, Creatinine 1.01, Est GFR ( Amer) > 60, Est GFR (Non-Af Amer) 59, Glucose 164 H, Calcium 9.0, TotalBilirubin 0.5, AST 15, ALT 17, Alkaline Phosphatase 88, Total Protein 6.6, Albumin 3.8, Globulin 2.8, Albumin/Globulin Ratio 1.4 08/05/22 13:45: Corrected WBC 9.3, Uncorrected WBC Count 9.3, RBC 4.09, Hgb 12.2, Hct 37.2, MCV 90.9, MCH 29.8, MCHC 32.8, RDW 14.9, Plt Count 263, MPV 7.1,Neut % (Auto) 92.9, Lymph % (Auto) 5.5, [place] % (Auto) 1.4, Eos % (Auto) 0.0, Baso % (Auto) 0.2, Nucleat RBC Rel Count 0.0, Neut # (Auto) 8.7 H, Lymph # (Auto) 0.5 L, [place] # (Auto) 0.1, Eos # (Auto) 0.0, Baso # (Auto) 0.0 - Impressions No new imaging for review. 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 Right lumpectomy/breast reconstruction/mastopexy 02/17/2022--small area of ductal carcinoma in situ 3.5 mm but no invasive disease. 5 lymph nodes were negative for carcinoma. (1) Breast cancer Qualifiers: Breast location: overlapping sites of breast Patient sex: female Laterality: right Patient is a now 47-year-old female presenting with 3 discernible masses by mammography (04/22/2021) with needle biopsy confirming triple negative breast cancer. She was initially see in consultation by Dr. Smith at [facility] in [place], [place]; however, due to insurance reasons the [facility]. In reviewing notes from her prior physician from 06/20/2021 she had 3 focal nodules with largest measuring 2 x 1.8 cm 6 o'clock position, 2 additional lesions measuring 1 x 0.7 cm and another 0.9 x 0.6 cm. BI-RADS spot compression view right breast showed persistent 2.4 x 2.2 cm partially obscured round mass with pleomorphic calcifications. She did have breast MRI prior to initiation of neoadjuvant therapy which I do not have records from this from [facility] in [place]. I am requesting this to evaluate her baseline study since transfer of care from Dr. Phoenix to myself. She also had reported normal baseline echo in May 2021. She commenced neoadjuvant Carboplatin/Paclitaxel/Pembrolizumab therapy on 07/22/2021; Our treatment plan will be pembrolizumab 200 mg IV every 3 weeks with weekly paclitaxel 80 mg/m? IV and q. 21 days carboplatin AUC 5 for 4 cycles. This treatment regimen is based on KEYNOTE 522 trial and is now standard of careand NCCN guidelines. After review of her MRI from outside hospital, I will repeat her breast MRI for new baseline here. If stable to responding disease wemay continue prior plan for followed by pembrolizumab every 3 weeks with Adriamycin and cyclophosphamide for 4 cycles. The patient would like reassessment by general surgery for surgical plan and we will determine whether she proceeds with mastectomy or lumpectomy based on his results. Baseline genetic testing returned negative from prior physicians at [facility]. BRCA testing negative Follow-up September is cycle 4 -day 1. Tolerance is overall good-- Proceed with cycle 4 with breast MRI prior to 2-week follow-up in comparison to baseline MRI. This will be useful in surgical planning. I am discussing her case with tertiary breast oncology Dr. Vinh Bucio to see if he concurs withthis plan. If decision is made to commence AC Pembroluzumab we will repeat her echocardiogram prior to this and obtain her prior echo results. --Physical exam may be showing some evidence of response with the lump in the right breast being not as conspicuous as compared to prior notes although it is unclear to evaluate by exam, therefore MRI is ordered. --My plan at this time will be to press on and continue our chemotherapy per plan. I will see her in 2 weeks. 10/08/2021: Patient is here for her last paclitaxel prior to changing agents for neoadjuvant therapy to Adriamycin/cyclophosphamide/pembrolizumab. She is due for follow-up echocardiogram prior to starting anthracycline. She had discussedpotentially changing surgeons to Dr. Reza and I contacted him regarding breast MRI for surgical planning. We will review her prior MRI from [facility] in May 2021 in comparison to most recent MRI (report pending). Of note outside MRI noted no biopsy clips in place and we may need to rebiopsy to place clips at sites of residual tumor masses prior to continuing further neoadjuvant therapy. We will coordinate a time for him to meet with the patientto discuss surgical options of lumpectomy versus mastectomy. Patient will commence her Adriamycin/cyclophosphamide/Pembrolizumab at 10/15/2021 and I will follow-up with her in early October for toxicity visit for tolerance. 10/22/2021: Change to Adriamycin/cyclophosphamide/Pembrolizumab with neutropenia noted but no fever. Echocardiogram at baseline was 55 to 60%. Other than nausea no other significant toxicities. MRI was reviewed and [facility] tumor board with Dr. Reza and he will be arranging evaluation for surgical options. Consultation was placed to him today. We willdose reduce Adriamycin and cyclophosphamide both by 20% due to her neutropenia. Otherwise may proceed with chemotherapy in 2 weeks he can follow-up in 3 weeks either with myself or nurse practitioner for toxicity review. 11/12/2021: Here for cycle 2-day 8 toxicity visit on now 20% dose reduced Adriamycin/cyclophosphamide/Pembrolizumab due to neutropenia without fever last cycle. Persistent fatigue and nausea without mouth ulcers. No neutropenia thiscycle. The patient met with Dr. Reza and will follow-up with her at end oftherapy. She is still not decided whether she would like to proceed with lumpectomy or mastectomy plus minus reconstruction. We will coordinate 3-week follow-up toxicity visit with nurse practitioner cycle 3-day 8--no dose reduction since she does not have any significant cytopenias. 12/03/2021: Here for cycle 3-day 8 toxicity visit on 20% dose reduced Adriamycin/cyclophosphamide/Pembrolizumab with no new toxicities. No cytopeniasare noted. I am coordinating plastic surgery consultation with Dr. Berny Simons prior to evaluation by Dr. Reza to determine surgical approach. She will have 1 more dose of chemotherapy due on 12/17/2021 and will follow-up with nurse practitioner 1 week following her chemo. She will require end of therapy echocardiogram in late December. I will see her in follow-up 2 weeks after her definitive surgery to review pathology and further plan for therapy/surveillance. Moderate complexity visit over 35 minutes for symptom review on chemotherapy, coordination with Dr. Simons and Dr. Reza of breast surgery for surgical plan. 12/24/2021: She is here for toxicity check after completion of 4 cycles of AC+Pembro. She has some lingering fatigue and nausea, but otherwise ok. Labs reviewed and ok. She will schedule follow-up with Dr. Reza to discuss surgical intervention and schedule surgery. We will plan for follow-up 2 weeks postop to discuss final pathology and next steps. She will call us with the scheduled surgery date. Her end of treatment ECHO is scheduled for 01/07/2022. 03/12/2022: Patient returns after right lumpectomy/breast reconstruction/mastopexy 02/17/2022 well-healed without complaints. 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 5 lymph nodes were negative for carcinoma. We discussed referral to radiation oncology after she has well-healed, then she may resume pembrolizumab 200 mg IV every 3 weeks for 9 further cycles as per KEYNOTE 522. No hormonal therapy indicated due to triple negative breast cancer. I will see her in follow-up with immunotherapy labs adjuvant cycle 2-day 1 Pembrolizumab timothy if new issues arise. High complexity visit over 45 minutes to review outside operative notes, pathology, and to discuss adjuvant radiation and immunotherapy. 06/19/2022: Patient has now completed her adjuvant radiation therapy on 06/16/2022. She resumed her first postop dose of Pembrolizumab on 05/28/2022 and has had intractable arthralgias and myalgias. She is also has had nausea and vomiting and is noted to have cortisol level of 0.2 with normal ACTH. This is consistent with immunotherapy induced adrenal insufficiency. We will hold pembrolizumab today and start hydrocortisone 20 mg a.m./10 mg p.m. reassessed byNP in 1 week to see if arthralgia symptoms are improved. If she has persistent arthralgias and myalgias she may get full dose prednisone with slow taper (prednisone 60 mg x 1 week, 40 mg x 1 week, 20 mg x 1 week, 10 mg x 1 week). Ifarthralgias completely resolved with hydrocortisone therapy we may consider resuming Keytruda for remaining doses. Next follow-up with me will be in around6 weeks or sooner as needed. High complexity visit over 45 minutes to address new toxicities. 07/23/2022: As per HPI the patient has improvement of gait but still has persistent myalgias and arthralgias of bilateral wrists. Also has persistent nausea despite compliance with replacement dose hydrocortisone. Since she has persistent nausea and arthralgias/myalgias with persistently low fasting cortisol she will be treated with full dose prednisone with slow taper (prednisone 60 mg x 1 week, 40 mg x 1 week, 20 mg x 1 week, 10 mg x 1 week). Continue to hold Pembroluzumab and follow-up in about 1 month for symptom review(with nurse practitioner at that time). No evidence of recurrence on clinical exam. Moderate complexity 30-minute follow-up of immunotherapy related toxicities. 08/06/2022: Significant improvement of myalgias since higher dose prednisone dosing with taper. She completed her first 2 weeks and starts 20 mg daily x1 week tomorrow. Due to her adrenal insufficiency I will have her maintain prednisone 10 mg daily. After discussion of risks and benefits she wishes to resume Pembrolizumab on 08/13/2022 and will have toxicity follow-up with Nurse Practitioner the following week. The goal will be to complete 8 more cycles of adjuvant pembrolizumab every 3 weeks. I will see her in follow-up in 3 months for full exam and immunotherapy labs. Is a moderate complexity 35-minute follow-up of her symptoms on prednisone taper, decision to resume immunotherapy. 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 persistent symptoms at follow-up 07/23/2022 and changed to full dose prednisone with slow taper (prednisone 60 mg x 1 week, 40 mg x 1 week, 20 mg x 1 week, 10 mg x 1 week). 08/06/2022: Symptoms improved with higher dose prednisone. She will resume Pembrolizumab 08/13/2022 and maintain prednisone 10 mg daily. We can titrate prednisone as needed for adrenal insufficiency and myalgias. (3) Lumbar back pain with radiculopathy affecting left lower extremity Lumbar MRI results previously reviewed--degenerative disc disease but no evidence of metastatic cancer. Previously referred to Dr. Jameson Castle for his recommendations. (4) Arthralgia of multiple sites, bilateral This is also deemed associated with immunotherapy. She has had good response response to prednisone over the last 2 weeks and will resume Pembrolizumab next week with low-dose prednisone therapy. (5) Encounter for antineoplastic immunotherapy Good partial pathologic response with only a small focus of residual DCIS, ER 5%, LA 0%. Completed adjuvant radiation then we resumed pembrolizumab 200 mg IVevery 3 weeks for 9 cycles in May 2022. Pembrolizumab on hold for 2 months for immunotherapy related adrenal insufficiency and arthralgias. Improvement with steroid course and decision to resume therapy 08/13/2022. - Chemo Plan Chemo Plan (Dose, Rate, Freq): Neoadjuvant Carboplatin/Paclitaxel/Pembrolizumab therapy on 07/22/2021; Our treatment plan will be pembrolizumab 200 mg IV every 3 weeks with weekly paclitaxel 80 mg/m? IV and q. 21 days carboplatin AUC 5 for 4 cycles. This treatment regimen is based on KEYNOTE 522 trial and is now standard of care and NCCN guidelines. --After review of her MRI from outside hospital, I repeated her breast MRI for new baseline here. 10/17/2021: Cycle 1 day 1 pembrolizumab every 3 weeks with Adriamycin and cyclophosphamide for 4 cycles. 20% dose reduction Adriamycin andcyclophosphamide for neutropenia with cycle 2. -- She underwent lumpectomy with sentinel lymph node biopsy 02/17/2022 in [place]. Adjuvant radiation completed 05/04-06/16/2022. Total of 30 fractions. -- Resumed adjuvant Pembrolizumab 05/28/2022. Received 1 cycle and stopped 06/18/2022 due to persistent arthralgias/myalgia and adrenal insufficiency. Resume therapy with Pembrolizumab after response to steroids 08/13/2022, maintainlow-dose prednisone. Number of Cycles: 8 Goal of Treatment: Curative - Time with Patient Time Spent with Patient (Follow Up Visit): 35 minutes - Moderate complexity 30 visit for review of symptoms of immunotherapy related adrenal insufficiency, arthralgia/myalgia. Plan to resume Keytruda 08/13/2021 and continue prednisone for symptom management. Good pathologic response with DCIS only on pathology Coordination of Care & Counseling Time: Greater than 50% of time spent with patient was for coordination of care (as documented) and [id number] counseling of patient and/or family. Dictated By: Kallie Chang MD DD/ [id number] Signed By: <Electronically signed by MD Kallie Chagn> 08/07/22 [address] [facility] Work Phone: [phone] 516-901001-06-2023 Progress note Author Kallie Chang [facility] July 24, 2022 11:26am Note Date/Time July 23, 2022 1: 43pm [facility] [place] [address] Hem/Onc Follow Up Note - OP Signed Patient: Tenisha Hancock MR#: [id number] : 1975 Acct:[id number] Age/Sex: 47 / F Type: REG RCR Copies to: Eliel Hurd MD~ Subjective Date/Time of Service: Date of Service: 07/23/2022 Time of Service: 13:42 Chief Complaint: Patient is here for a one month follow up with labs for review.FInished radiation 06/16/2022. Patient reports losing her balance, dizziness, chemo brain, and nausea. HPI: 07/23/2022: Rachel is here for 1 month follow-up after holding Pembroluzumab dueto multiple suspected immunotherapy related symptoms. She previously was havingdiffuse body aches with difficulty ambulating due to joint pain. Her joint painis now pretty much localized to her wrists and she is ambulating without assistance, however she still has profound fatigue. She was also noted to have persistently low cortisol level of 2.6 with ACTH <1.5 despite compliance with replacement dose hydrocortisone 20 mg a.m., 10 mg p.m. she sometimes notes that she forgets to take the evening dose. CBC shows stable hemoglobin 11 with normal white count and platelets. Sodium mildly low at 135 but otherwise normal electrolytes and liver function test. TSH and free T4 normal. I recommended increasing steroid dose to prednisone 60 mg daily for 1 week, then 40 mg daily for 1 week then 20 mg daily for 1 week, then 10 mg daily for 1 week with reassessment in 1 month. We will continue to hold Pembroluzumab immunotherapy and reevaluate whether she is able to continue adjuvant immunotherapy or observation only. This is a moderate complexity visit over 30 minutes for review of symptoms with immunotherapy related adrenal insufficiency and myalgias. 06/19/2022: Rachel completed radiation therapy on 06/16/2022: continued nausea with generalized weakness and diffuse body aches. She has pain over joints, pain rising to stand and ambulating. Labs reveal low cortisol and normal ACTH suggesting immunotherapy related adrenal insufficiency, thyroid function normal. We discussed holding pembrolizumab today and starting replacement dose hydrocortisone 20mg am/10mg pm. 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 We may give full dose slow prednisone taper if continued arthralgias on immunotherapy. Will determine whether she continues further pembrolizumab if persistent arthralgia. High complexity 45 minute visit to manage immunotherapy related adrenal insufficiency and arthralgia. 03/12/2022: Rachel is here following her needle localized lumpectomy with oncoplastic reconstruction of right breast with right mastopexy on 02/17/2022 by Drs. Saunders/Drew ([facility]). 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 DCIS had estrogen receptor 5% and progesterone receptor negative therefore she is not a candidate for adjuvant hormonal therapy. -- Prior to neoadjuvant therapy the patient's clinical stage was T2N0 (baseline tumor about 2.5 cm by exam). Pathologic stage is ypTis pN0 pMx (3.5mm). She ishealing well with mild residual pain at sites but no drainage from incisions which are healing well. Due to in situ disease only, she does not require further chemotherapy and we will send her to radiation to discuss radiation for her in situ disease. As per the KEYNOTE-522 study, the patient will receive 9 additional cycles of pembrolizumab every 3 weeks following her radiation therapythen observation. The patient expresses understanding and will return after radiation oncology evaluation to and I will see her for follow-up cycle 2. High complexity 45-minute visit for review of outside operative notes and final pathology after right lumpectomy/reconstruction. 12/24/2021: Rachel presents after completing her 4th and last cycle of Adriamycin, Cytoxan and Pembrolizumab. She notes some lingering fatigue and nausea without vomiting. She also notes a few days of diarrhea with some improvement today. Otherwise she does not admit to any other complaints. Her labs are reviewed and stable overall, no significant cytopenias. She is unsure of her next steps and has a lot of questions related to surgical options as wellas if she will need radiation therapy. She met with Dr. Simons and has an appointment scheduled at [facility] to discuss josep flap surgery as well. We have advised her to follow-up with Dr. Reza to review her options and answer herquestions related to timing with the surgeon and plastic surgeon. We reviewed lumpectomy vs. mastectomy and the role radiation plays as well. We will plan to follow-up 2 weeks postop, and she will call us with her surgery date once decisions have been made. 12/03/2021: Rachel presents for cycle 3, week 2 toxicity check for Adriamycin/Cytoxan/Pembrolizumab. She continues to note fatigue and nausea but has not had any further neutropenia since dose reduction. We are coordinating evaluation by Dr. Simons with plastic surgery as well as Dr. Reza for planned end of therapy with last cycle due on December 17, 2021. The patient is undecided whether she would like to proceed with breast conservation option versus immediate reconstruction with mastectomy. Dr. Simons was contacted to arrange initial evaluation and she may see nurse practitioner for follow-up 1 week after her last cycle of Adriamycin/Cytoxan/Pembrolizumab. I will see her about 2 weeks postoperatively from her definitive therapy to review pathology and any further therapy options at that point. 11/12/2021: Rachel is here for cycle 2, week 2 toxicity check for Adriamycin/Cytoxan/Pembrolizumab. She was given 20% dose reduction Adriamycin and Cytoxan due to neutropenia last cycle and notes that she felt even more fatigued this cycle than prior cycle. She did not have any oral mucositis and met with Dr. Reza but he was unable to review her prior films. She did notrequire any further interventions since surgical clip was placed in the past. She still is undecided whether she will proceed with lumpectomy or mastectomy. I will refer her back for surgical evaluation after completion of her 4 cycles of Adriamycin/Cytoxan/Pembrolizumab. Currently she does not have any cytopeniasnoted recommend proceeding with same dose of therapy. 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 Next follow-up in 3 weeks fortoxicity check or sooner as needed. 10/22/2021: Rachel is here for toxicity check after cycle 1 of Adriamycin/Cytoxan/Pembrolizumab 1 week ago. She notes that she had increased fatigueand persistent nausea and her total white blood cell count is 1200 with ANC 100. No fever, chills, night sweats, or signs or symptoms of infection. We discussed dose reduction by 20% due to her neutropenia. Baseline echocardiogramprior to Adriamycin and Cytoxan was 55 to 60%. MRI of the breast was reviewed in comparison to her initial MRI in May 2022 that shows some progression ofher primary breast mass and one of the satellite lesions is no longer identified. Patient does note that after her breast MRI she did undergo placement of clip at the site of her prior lesions. She wanted to transfer her care for surgical evaluation by Dr. Reza and I will place consult for him to evaluate her to plan surgery following 3 more cycles of Adriamycin/Cytoxan/Pembroluzumab. Otherwise she will follow-up for next cycle of chemotherapy in 2 weeks and toxicity visit the following week after 20% dose reduction of both Adriamycin and Cytoxan. 10/08/2021: Rachel is here for followup after completing 4 cycles of neoadjuvant carboplatin AUC 5 with weekly paclitaxel 80 mg/m? and every 3-week Pembroluzumab 200 mg. She is on her last dose of 12-week paclitaxel today. We ordered an MRI on her and reviewed the images with her in clinic today but finalreport is still pending radiology read. I reviewed her case with breast medical oncologist Dr. Vinh Bucio who agreed that patient should likely continue on Adriamycin/Cytoxan/Pembrolizumab every 3 weeks for 4 more cycles as previously written. She had a baseline echocardiogram in May but we will repeat this prior to starting her next round of chemo in 1 week. Her next follow-up for toxicity visit will be cycle 1 week 2 and we will coordinate surgery evaluation based on her breast MRI to review her response to initial therapy. Symptoms are otherwise stable on weekly paclitaxel with minimal neuropathy. I contacted radiology and breast MRI should be read early next week. 09/24/2021: Rachel is a 46-year-old lady who is currently cycle 4-day 1 for neoadjuvant carboplatin AUC 5 (dose adjusted for adjusted body weight), weekly paclitaxel 80 mg/m?, and every 3-week Pembrolizumab 200 mg. She has tolerated chemotherapy reasonably well with nausea and IBS symptoms but she has not had any significant neutropenia. She has not noticed any clinical difference in herbreast exam, although in comparison to prior notes there is a 9 discrete area onexam 3 to 4 cm of thickening in the right 10:00 to 11:00 area. There is no skindimpling or nipple discharge or retraction. I do not feel any palpable masses in the axilla. Although the patient previously saw Dr. Red at diagnosis, she is uncertain of the plan for surgery. Since she had negative genetic testing it is unlikely that she will have bilateral mastectomy and reconstruction, however we can coordinate her evaluation by surgery locally if she wishes. --Otherwise we decided to proceed with her fourth cycle of carboplatin/paclitaxel/Pembrolizumab today. She had a baseline MRI and I will schedule repeat MRI after her fourth cycle and reevaluate her response to disease. Originally Dr. Phoenix had consented her to proceed with Adriamycin and Cytoxan with Pembrolizumab for 4 more cycles following her carboplatin/paclitaxel/Pembrolizumab. I will review this with tertiary breast medical oncologist Dr. Vinh Bucio to determine whether she should proceed with further therapy or be evaluated for surgery. Patient will follow up with me in approximately 2 weeks after her MRI to review subsequent plan of therapy. Previous notes from Dr. Phoenix, last seen 08/18/2021: Tenisha presents August 20, 2021 for cycle 2, day 7 of neoadjuvant chemotherapy for triple negative breast cancer. She does have some progressive alopecia. No nausea vomiting diarrhea. The breast mass in the right breast is not as evidence with deep palpation. Youcan still feel it but it appears to be smaller somewhat. In the right axilla there is a very small pinpoint hard nodule fairly superficial. Her tolerance to therapy to date has been overall good. BRCA testing was done through [employer] and is negative. She does have left foot numbness. MRI was done of the lumbar spine and does show multiple areas of degenerative disc disease. The patient has a known history of problem both in her lumbar spine and what appears in her cervical spine. I will refer her to Dr. Castle for consideration of kyphoplasty or other. I willdefer to his impression and recommendations. MOHEGAN: This is a 46 year old female, recently diagnosed with triple negative right breast cancer; currently undergoing neoadjuvant pembrolizumab, carboplatin AUC 4and weekly paclitaxel x6 cycles, which commenced: 07/22/2021. This is a 46-year-old female who works at [employer] with triple negative breast cancer, referred for neoadjuvant chemotherapy. Mammogram onon April 22, 2021 showed 3 new focal masses with the largest measuring 2 cm in size in the right breast. 2 additional lesions measuring 1 cm and a second 0.9 cm were also seen. The patient was referred for biopsy. Needle biopsy showed triple negative breast cancer, ER negative, LA negative, and H ER 2 -. The patient was referred to Dr. Ismael Red for Byfllb-[id number] which she has had placed. She has seen my colleague Dr. Smith at the [facility] whorecommended neoadjuvant chemotherapy and immunotherapy. Because of insurance reasons, she will be getting her treatment here at [facility]. She has had echocardiography as well. According the patient an MRI was obtained prior to neoadjuvant therapy while [facility]was at [facility] we are requesting this prior study. She does have a palpable breast mass. It is in the lower mid quadrant of the right breast. Mammogram on on April 22, 2021 showed 3 new focal masses with the largest measuring 2 cm in size in the right breast. 2 additional lesions measuring 1 cmand a second 0.9 cm were also seen. The patient was referred for biopsy. Needle biopsy showed triple negative breast cancer, ER negative, LA negative, and HER 2 -. The patient was referred to Dr. Ismael Red for [id number] which she has had placed. [facility]. Because of insurance reasons, she will be getting her treatment here at [facility]. She has had echocardiography as well. PET/CT scan was denied by insurance and she underwent CT scan of the chest/abdomen/pelvis on 07/16/2021 which showed no obvious evidence of distant metastatic disease. As noted above, Cycle 1, Day 1 (Carboplatin/Paclitaxel/Pembrolizumab) commenced 07/22/2021 and this was well tolerated. The patient went home that evening and began to feel flushed, general malaise, etc. She subsequently tested positive for COVID - 19 per PCR the following day, 07/23/2021. Her symptoms were quite mild; however, next cycle of chemotherapy was pushed out 2 days and she is here today for Cycle 1, Day 8 of single agent Paclitaxel. She does have a palpable breast mass in the lower mid quadrant of the right breast; she was concerned about a lump under her right axilla but upon exam wehad trouble locating a discrete nodule or lymph node. Otherwise, her only complaint is continued low back pain with radiculopathy involving the left groin/hip and left lower extremity with associated numbness in left foot. She has known neuroma of the left foot and was in the process of being worked up by pain management (Dr. Monique) for lumbar pain; radiculopathy. - Summary of Therapies Summary of Therapies: 1. Neoadjuvant Carboplatin AUC 5-day 1, Pembrolizumab 200 mg day 1, Paclitaxel 80 mg meter squared weekly each 21-day cycle for planned 4 cycles: started Cycle1, Day 1: 07/22/2021, cycle 4 09/24/2021 --Plan 10/15/2021: Start Pembrolizumab 200 mg day 1, doxorubicin 60 mg/m? day 1,and cyclophosphamide 600 mg/m? day 1 every 21 days x 4 cycles followed by adjuvant Pembrolizumab 200 mg IV every 21 days x 9 cycles --Original breast MRI obtained from [facility] from May 2021, follow-up breast MRI performed 10/07/2021 for initial response to therapy. Patient requested an opinion from Dr. Reza for planning breast surgery options based on MRI (she does note that prior biopsy clips were placed after her original MRI for further neoadjuvant therapy). -- 20% dose reduction doxorubicin and cyclophosphamide cycle 2 for neutropenia. Last dose of Adriamycin, cyclophosphamide, Pembrolizumab due 12/17/2021. End of therapy echo may be ordered preoperatively in late December. 2. 02/17/2022 at [facility], Drs. Saunders/Drew: needle localized lumpectomy with oncoplastic reconstruction of right breast with right mastopexy 3. Adjuvant radiation: Right SCV axilla 5000 cGy 05/04-06/07/22 25 fractions over 34 elapsed days. Right breast 5000 cGy 05/04-06/07/22 25 fractions over 34elapsed days. Cavity boost 1000 cGy 06/08-06/16/2022 5 fractions over 8 days. 4. Resumed Immunotherapy Pembrolizumab 200 mg IV every 3 weeks for 9 more cycles--first/only postop dose was 05/28/2022. Stopped 06/18/2022 after 1 postopdose due to immunotherapy related arthralgias/myalgia and adrenal insufficiency. No hormonal therapy indicated for triple negative disease. Continue to hold Pembroluzumab follow-up 07/23/2022 ROS Details: All systems reviewed & no additional complaints except as documented Subjective/ROS - Narrative: CONSTITUTIONAL: Positive for generalized fatigue (not improved on replacement dose hydrocortisone), negative for fever or night sweats. Still able to performactivities of daily living. HEAD AND NECK: Negative for changes in hearing and vision. Negative for mouth ulcers, nasal congestion and nasal drainage. BREASTS: Status post right lumpectomy with oncoplastic reconstruction/right mastopexy well-healed incisions without tenderness to palpation. No lymphedema or axillary fullness right. Left breast and axilla unremarkable. PULMONARY: Negative for chest pain, cough and dyspnea. CARDIOVASCULAR: Negative for claudication and irregular heartbeat/palpitations. GASTROINTESTINAL: Negative for abdominal pain, constipation, decreased appetite,diarrhea. Positive for recent nausea/vomiting over the past 2 to 3 weeks--persistent nausea despite hydrocortisone (increasing to higher dose prednisone 07/23 visit). GENITOURINARY: Negative for dysuria and hematuria. ENDOCRINE: Negative for cold intolerance and heat intolerance. Positive for fatigue and nausea due to immunotherapy related adrenal insufficiency--started hydrocortisone 20 mg a.m./10 mg p.m. at 06/18/2022 visit--changed to higher dose prednisone 07/23 visit). CENTRAL NERVOUS SYSTEM: Improvement of prior gait disturbance due to myalgia/arthralgia at 07/23 visit but still persistent bilateral wrist pain. Negative for headache. No significant motor neuropathy or focal deficits. PSYCHIATRIC: Negative for anxiety. Positive distress mood regarding recent symptoms. DERMATOLOGICAL: Negative for pruritus and rash. Negative for suspicious skin lesions. MUSCULOSKELETAL: Stable lumbar back pain. New generalized arthralgias and myalgias--noted at 06/18 visit, stopped immunotherapy for symptoms. HEMATOLOGICAL: Negative for bleeding and easy bruising. Negative for history of transfusion or thromboembolic disease. Laboratories with cycle 1 AC Pembroluzumab showed neutropenia without fever. No neutropenia after dose reduction cycle 2. ALLERGY: Negative for environmental allergies and food allergies. PMFSH - History Attestation statement: The following information was validated with the patient. Source: Old Records Reviewed - Medical History Medical History: Medical History (Last Reviewed 07/24/22 @ 11:16 by Kallie Chang MD) Arthritis COVID-19 Headache High blood cholesterol - Surgical History Surgical History: Surgical History (Last Reviewed 07/24/22 @ 11:16 by Kallie Chang MD) History of breast biopsy right 05/26/2021 History of carpal tunnel release History of cholecystectomy History of foot surgery right - Family History Family History: Family History (Last Reviewed 07/24/22 @ 11:17 by Kallie Chang MD) Brother Lung cancer Father Cancer Mother COPD (chronic obstructive pulmonary disease) - Social History Smoking Status: Former smoker Tobacco Type: cigarettes Substance Use Type: None Home Medications & Allergies Allergies No Known Allergies Allergy (Verified 07/23/22 13:29) Home Medications aqpnjok-nnrhcsxekisrd-frsqerfs 250 mg-250 mg-65 mg tablet (Excedrin Migraine) 1 tab PO Q4-6H PRN Headache 07/08/21 [History Confirmed 07/23/22] citalopram 20 mg tablet 20 mg PO DAILY 07/08/21 [History Confirmed 07/23/22] omeprazole 20 mg capsule,delayed release 20 mg PO DAILY 07/08/21 [History Confirmed 07/23/22] ondansetron 8 mg disintegrating tablet 8 mg PO Q8H #90 tabs 06/02/22 [Rx Confirmed 07/23/22] mometasone 0.1 % topical cream 1 applic topical DAILY #45 grams 06/09/22 [Rx Confirmed 07/23/22] silver sulfadiazine 1 % topical cream (Silvadene) 1 applic topical DAILY #60 grams 06/09/22 [Rx Confirmed 07/23/22] hydrocortisone 10 mg tablet See Rx Instructions .Route .COMPLEX 30 days #90 tabs108/19/21 [Rx Confirmed 07/23/22] prednisone 20 mg tablet See Rx Instructions .Route .COMPLEX 28 days #42 tabs 07/23/22 [Rx] Objective - Height/Weight Height/Weight: Height 5 ft 3 in Weight 76.9 kg BSA for Today's Weight 2.01 - Vital Signs Vital Signs: 07/23/22 13:30 Pulse Rate [Left Brachial] 68 Respiratory Rate 20 Blood Pressure [Left Arm] 108/68 02 Sat by Pulse Oximetry 99 Oxygen Delivery Method Room Air - Pain Left Shoulder Pain Intensity: 5 Lower Back Pain Intensity: 4 Generalized Left Pain Intensity: 5 Physical Exam Narrative: GENERAL: Alert, pleasant, no acute distress, no longer noted to have hip pain with ambulating and ambulates independently. HEENT: Oral mucosa is pink/moist; no lesions or exudate. Neck supple without adenopathy or thyromegaly. BREAST: Well-healed incisions from right lumpectomy with breast reconstruction/mastopexy. No masses left breast. No axillary fullness or tenderness. HEART: RRR; no murmurs/rubs or gallops; S1 and S2 normal. No edema. LUNGS: CTA bilaterally; no wheezes or crackles. Normal respiratory effort. ABDOMEN: Soft, non tender. BS present x 4 quadrants. No HSM. INTEGUMENTARY: Warm, dry; no skin rashes. LYMPHATICS: No lymphadenopathy appreciated. MUSCULOSKELETAL: No vertebral tenderness or step-off deformity. No palpable synovitis of joints. Decreased range of motion wrists due to arthralgias/myalgia. NEUROLOGICAL: Grossly intact, patient is alert and oriented x 3; improved gait, no focal deficits. - ECOG Performance Status ECOG Score: 1 Results - Labs Labs: Diagram of Most Recent CBC and CMP 07/22/22 15:05 07/22/22 15:05 Labs - Last 7 Days 07/22/22 15:05: Corrected WBC 6.5, Uncorrected WBC Count 6.5, RBC 3.65, Hgb 11.0L, Hct 32.7 L, MCV 89.6, MCH 30.1, MCHC 33.6, RDW 13.7, Plt Count 361, MPV 6.9, Neut % (Auto) 71.8, Lymph % (Auto) 19.9, [place] % (Auto) 6.3, Eos % (Auto) 1.3, Baso % (Auto) 0.7, Nucleat RBC Rel Count 0.2, Neut # (Auto) 4.6, Lymph # (Auto) 1.3, Greenwood # (Auto) 0.4, Eos # (Auto) 0.1, Baso # (Auto) 0.0 07/22/22 15:05: PHA Creatinine Clear 103.05, Sodium 135 L, Potassium 4.1, Chloride 103, Carbon Dioxide 23.1, Anion Gap 13.0, BUN 10, Creatinine 0.67, Est GFR ( Amer) > 60, Est GFR (Non-Af Amer) > 60, Glucose 93, Calcium 9.2, Total Bilirubin 0.3, AST 19, ALT 18, Alkaline Phosphatase 71, Total Protein 6.4,Albumin 3.5, Globulin 2.9, Albumin/Globulin Ratio 1.2, Free T4 0.78, TSH 3rd Generation 1.41, Total Cortisol 2.6 - Impressions EXAMINATION: MRI OF THE CERVICAL SPINE WITHOUT CONTRAST CLINICAL DATA: Chronic neck and left arm numbness for multiple years. TECHNIQUE: Multiecho imaging was performed in the sagittal and axial plane without contrast administration. FINDINGS: Vertebral body heights appear maintained. No bone marrow edema is noted. No abnormal cord signal. Cervicomedullary junction appears normal. No paraspinal mass. C2-3: Normal. C3-4: Normal. C4-5: Disc osteophyte complex causing mild canal bilateral neural foraminal stenosis. C5-6: Disc osteophyte complex causing mild canal and bilateral neural foraminal stenosis. C6-7: Central disc osteophyte complex causing mild canal and bilateral neural foraminal stenosis. MR/MR cervical spine wo con IMPRESSION: DEGENERATIVE DISEASE C4-C7. Impression dictated by: Jamari Guzman Jr., D.O.06/19/2022 7:04 PM Assessment and Plan - TNM Staging Staging: Stage II right breast invasive ductal carcinoma grade 3, estrogen receptor 0%, progesterone receptor 0%, HER-2 negative by IHC Clinical stage II with baseline tumor at least 2 or 2.5 cm (In comparison with prior 05/2021 MRI there was interval decrease of dominant mass to 1.5 cm in greatest dimension)--completed neoadjuvant therapy with TC plus pembrolizumab then AC plus pembrolizumab Postoperative pathologic staging: yTis yN0 postoperative pathologic stage 0. Right lumpectomy/breast reconstruction/mastopexy 02/17/2022--small area of ductal carcinoma in situ 3.5 mm but no invasive disease. 5 lymph nodes were negative for carcinoma. (1) Breast cancer Qualifiers: Breast location: overlapping sites of breast Patient sex: female Laterality: right Patient is a now 47-year-old female presenting with 3 discernible masses by mammography (04/22/2021) with needle biopsy confirming triple negative breast cancer. She was initially see in consultation by Dr. Smith at [facility] in [place], [place]; however, due to insurance reasons [facility]. In reviewing notes from her prior physician from 06/20/2021 she had 3 focal nodules with largest measuring 2 x 1.8 cm 6 o'clock position, 2 additional lesions measuring 1 x 0.7 cm and another0.9 x 0.6 cm. BI- RADS spot compression view right breast showed persistent 2.4 x 2.2 cm partially obscured round mass with pleomorphic calcifications. She didhave breast MRI prior to initiation of neoadjuvant therapy which I do not have records from this from [facility] in [place]. I am requesting this to evaluate her baseline study since transfer of care from Dr. Phoenix to myself. She also had reported normal baseline echo in May 2021. She commenced neoadjuvant Carboplatin/Paclitaxel/Pembrolizumab therapy on 07/22/2021; Our treatment plan will be pembrolizumab 200 mg IV every 3 weeks with weekly paclitaxel 80 mg/m? IV and q. 21 days carboplatin AUC 5 for 4 cycles. This treatment regimen is based on KEYNOTE 522 trial and is now standard of careand NCCN guidelines. After review of her MRI from outside hospital, I will repeat her breast MRI for new baseline here. If stable to responding disease wemay continue prior plan for followed by pembrolizumab every 3 weeks with Adriamycin and cyclophosphamide for 4 cycles. The patient would like reassessment by general surgery for surgical plan and we will determine whether she proceeds with mastectomy or lumpectomy based on his results. Baseline genetic testing returned negative from prior physicians at [facility]. BRCA testing negative Follow-up September is cycle 4 -day 1. Tolerance is overall good-- Proceed with cycle 4 with breast MRI prior to 2-week follow-up in comparison to baseline MRI. This will be useful in surgical planning. I am discussing her case with tertiary breast oncology Dr. Vinh Bucio to see if he concurs withthis plan. If decision is made to commence AC Pembroluzumab we will repeat her echocardiogram prior to this and obtain her prior echo results. --Physical exam may be showing some evidence of response with the lump in the right breast being not as conspicuous as compared to prior notes although it is unclear to evaluate by exam, therefore MRI is ordered. --My plan at this time will be to press on and continue our chemotherapy per plan. I will see her in 2 weeks. 10/08/2021: Patient is here for her last paclitaxel prior to changing agents for neoadjuvant therapy to Adriamycin/cyclophosphamide/pembrolizumab. She is due for follow-up echocardiogram prior to starting anthracycline. She had discussedpotentially changing surgeons to Dr. Reza and I contacted him regarding breast MRI for surgical planning. We will review her prior MRI from [facility] in May 2021 in comparison to most recent MRI (report pending). Of note outside MRI noted no biopsy clips in place and we may need to rebiopsy to place clips at sites of residual tumor masses prior to continuing further neoadjuvant therapy. We will coordinate a time for him to meet with the patientto discuss surgical options of lumpectomy versus mastectomy. Patient will commence her Adriamycin/cyclophosphamide/Pembrolizumab at 10/15/2021 and I will follow-up with her in early October for toxicity visit for tolerance. 10/22/2021: Change to Adriamycin/cyclophosphamide/Pembrolizumab with neutropenia noted but no fever. Echocardiogram at baseline was 55 to 60%. Other than nausea no other significant toxicities. MRI was reviewed and [facility] tumor board with Dr. Reza and he will be arranging evaluation for surgical options. Consultation was placed to him today. We willdose reduce Adriamycin and cyclophosphamide both by 20% due to her neutropenia. Otherwise may proceed with chemotherapy in 2 weeks he can follow-up in 3 weeks either with myself or nurse practitioner for toxicity review. 11/12/2021: Here for cycle 2-day 8 toxicity visit on now 20% dose reduced Adriamycin/cyclophosphamide/Pembrolizumab due to neutropenia without fever last cycle. Persistent fatigue and nausea without mouth ulcers. No neutropenia thiscycle. The patient met with Dr. Reza and will follow-up with her at end oftherapy. She is still not decided whether she would like to proceed with lumpectomy or mastectomy plus minus reconstruction. We will coordinate 3-week follow-up toxicity visit with nurse practitioner cycle 3-day 8--no dose reduction since she does not have any significant cytopenias. 12/03/2021: Here for cycle 3-day 8 toxicity visit on 20% dose reduced Adriamycin/cyclophosphamide/Pembrolizumab with no new toxicities. No cytopeniasare noted. I am coordinating plastic surgery consultation with Dr. Berny Simons prior to evaluation by Dr. Reza to determine surgical approach. She will have 1 more dose of chemotherapy due on 12/17/2021 and will follow-up with nurse practitioner 1 week following her chemo. She will require end of therapy echocardiogram in late December. I will see her in follow-up 2 weeks after her definitive surgery to review pathology and further plan for therapy/surveillance. Moderate complexity visit over 35 minutes for symptom review on chemotherapy, coordination with Dr. Simons and Dr. Reza of breast surgery for surgical plan. 12/24/2021: She is here for toxicity check after completion of 4 cycles of AC+Pembro. She has some lingering fatigue and nausea, but otherwise ok. Labs reviewed and ok. She will schedule follow-up with Dr. Reza to discuss surgical intervention and schedule surgery. We will plan for follow-up 2 weeks postop to discuss final pathology and next steps. She will call us with the scheduled surgery date. Her end of treatment ECHO is scheduled for 01/07/2022. 03/12/2022: Patient returns after right lumpectomy/breast reconstruction/mastopexy 02/17/2022 well-healed without complaints. 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 5 lymph nodes were negative for carcinoma. We discussed referral to radiation oncology after she has well-healed, then she may resume pembrolizumab 200 mg IV every 3 weeks for 9 further cycles as per KEYNOTE 522. No hormonal therapy indicated due to triple negative breast cancer. I will see her in follow-up with immunotherapy labs adjuvant cycle 2-day 1 Pembrolizumab orsooner if new issues arise. High complexity visit over 45 minutes to review outside operative notes, pathology, and to discuss adjuvant radiation and immunotherapy. 06/19/2022: Patient has now completed her adjuvant radiation therapy on 06/16/2022. She resumed her first postop dose of Pembrolizumab on 05/28/2022 and has had intractable arthralgias and myalgias. She is also has had nausea and vomiting and is noted to have cortisol level of 0.2 with normal ACTH. This is consistent with immunotherapy induced adrenal insufficiency. We will hold pembrolizumab today and start hydrocortisone 20 mg a.m./10 mg p.m. reassessed byNP in 1 week to see if arthralgia symptoms are improved. If she has persistent arthralgias and myalgias she may get full dose prednisone with slow taper (prednisone 60 mg x 1 week, 40 mg x 1 week, 20 mg x 1 week, 10 mg x 1 week). Ifarthralgias completely resolved with hydrocortisone therapy we may consider resuming Keytruda for remaining doses. Next follow-up with me will be in around6 weeks or sooner as needed. High complexity visit over 45 minutes to address new toxicities. 07/23/2022: As per HPI the patient has improvement of gait but still has persistent myalgias and arthralgias of bilateral wrists. Also has persistent nausea despite compliance with replacement dose hydrocortisone. Since she has persistent nausea and arthralgias/myalgias with persistently low fasting cortisol she will be treated with full dose prednisone with slow taper (prednisone 60 mg x 1 week, 40 mg x 1 week, 20 mg x 1 week, 10 mg x 1 week). Continue to hold Pembroluzumab and follow-up in about 1 month for symptom review(with nurse practitioner at that time). No evidence of recurrence on clinical exam. Moderate complexity 30-minute follow-up of immunotherapy related toxicities. 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 persistent symptoms at follow-up 07/23/2022 and changed to full dose prednisone with slow taper (prednisone 60 mg x 1 week, 40 mg x 1 week, 20 mg x 1 week, 10 mg x 1 week). (3) Lumbar back pain with radiculopathy affecting left lower extremity Lumbar MRI results previously reviewed--degenerative disc disease but no evidence of metastatic cancer. Previously referred to Dr. Jameson Castle for his recommendations. (4) Arthralgia of multiple sites, bilateral This is also deemed associated with immunotherapy. We will assess her response to prednisone over the last month and continue to hold Pembroluzumab. (5) Encounter for coordination of complex care Discussion of new symptoms, coordination of treatment for immunotherapy, continuing to hold Keytruda - Chemo Plan Chemo Plan (Dose, Rate, Freq): Neoadjuvant Carboplatin/Paclitaxel/Pembrolizumab therapy on 07/22/2021; Our treatment plan will be pembrolizumab 200 mg IV every 3 weeks with weekly paclitaxel 80 mg/m? IV and q. 21 days carboplatin AUC 5 for 4 cycles. This treatment regimen is based on KEYNOTE 522 trial and is now standard of care and NCCN guidelines. --After review of her MRI from outside hospital, I repeated her breast MRI for new baseline here. 10/17/2021: Cycle 1 day 1 pembrolizumab every 3 weeks with Adriamycin and cyclophosphamide for 4 cycles. 20% dose reduction Adriamycin andcyclophosphamide for neutropenia with cycle 2. -- She underwent lumpectomy with sentinel lymph node biopsy 02/17/2022 in [place]. Adjuvant radiation completed 05/04-06/16/2022. Total of 30 fractions. -- Resumed adjuvant Pembrolizumab 05/28/2022. Received 1 cycle and stopped 06/18/2022 due to persistent arthralgias/myalgia and adrenal insufficiency. We will determine based on response to steroids whether she can resume therapy. Number of Cycles: 8 Goal of Treatment: Curative - Time with Patient Time Spent with Patient (Follow Up Visit): 35 minutes - Moderate complexity 30 visit for review labs and symptoms of immunotherapy related adrenal insufficiency, arthralgia/myalgia. Holding Keytruda and giving prednisone for symptom management. Good pathologic response with DCIS only on pathology Coordination of Care & Counseling Time: Greater than 50% of time spent with patient was for coordination of care (as documented) and [id number] counseling of patient and/or family. Dictated By: Kallie Chang MD DD/ [id number] Signed By: <Electronically signed by MD Kallie Chang> 07/24/22 [address] [facility] Work Phone: [phone] 140-791412-28-2022 Progress note Author Stacie Thomas [facility] July 15, 2022 1:57pm Note Date/Time July 15, 2022 9:31am [facility] [place] [address] Rad Onc Follow Up Note - OP Signed Patient: Tenisha Hancock MR#: [id number] : 1975 Acct:[id number] Age/Sex: 47 / F Type: REG RCR Copies to: MD Eliel Wilson MD~ Date of Service Service Date: 07/15/22 Assessment & Plan (1) Breast cancer Plan: Return to clinic as needed Assessment: 47-year-old female who presented with a cT2N0 invasive ductal carcinoma of the right breast, grade 3, multifocal disease, triple negative. She received neoadjuvant chemotherapy and immunotherapy in early February 2022 proceeded to right-sided lumpectomy with oncoplastic reduction. Final pathology confirmed 3.5 cm of residual DCIS with 0 out of 5 lymph nodes involved. [id number]. In review of her operative note as well as the final pathology it clearly states there was treatment effect in both the breast and the lymph nodes indicating shewas likely at least microscopically and pathologically node positive at presentation. Patient was seen in consultation on March 18 at that time her exam showed persistent wound dehiscence and she was scheduled to meet with wound care. Radiation was delayed until appropriate wound healing was confirmed. June 16, 2022 patient completed whole breast radiation including regional liliana radiation using conventional fractionation with a boost due to her young age and advanced disease. She received total of 50 Benavidez in 25 fractions followed by a 10 Benavidez 5 fraction boost. She tolerated radiation therapy well and worked full-time during her treatment course. She did experience expected radiation dermatitis and moist desquamation in the axilla for which she was given Silvadene. Today patient's has healed well from her radiation. We reviewed light massage techniques to help minimize radiation fibrosis. She still struggles with her adrenal insufficiency from the Keytruda which she has been off of for 6 weeks. She occasionally forgets to take her evening dose of the steroid and she was counseled on the importance of compliance. She has follow-up with medical oncology for ongoing systemic therapy we will discharge her in their care. We are happy to see her back at any time if there is a need for additional radiation or radiation related concerns. Follow Up Note - Narrative 47-year-old female with the following oncologic history: April 22 2021 screening mammogram confirming 3 new masses largest measuring 2 cm at the 6 o'clock position with 2 additional lesions in this vicinity measuring 1 cm and 9 mm in the upper outer quadrant and lower inner quadrant of the right breast. Left breast was negative. May 13, 2021 diagnostic mammogram showed a 2.4 partially obscured mildly lobular round mass with pleomorphic microcalcifications. Ultrasound confirmed the lesion at the 6 o'clock position with mildly lobular borders. May 26, 2021 ultrasound-guided core biopsy of the mass at 6:00 confirmed invasive ductal carcinoma, 9 mm, provisional grade 3, ER/LA negative and HER2 negative. Per the available notes her BRCA testing was done through [employer] and was negative. Also appears the right breast mass was palpable in the lower mid quadrant of the breast. [facility]. Due to insurance reasons she received her systemic therapy here at [facility]. PET/CT was denied by insurance. CT scan of the chest abdomen pelvis on July 16, 2021 was negative for metastatic disease. Her clinical stage at presentation was cT2N0. June 11, 2021 patient did undergo an MRI in [place]. I do not have that report available however based on my review it appears there was multifocal disease with possibility of ipsilateral lymphadenopathy. July 22, 2021 patient was initiated on neoadjuvant carboplatin, paclitaxel, pembrolizumab. Of note she tested positive for COVID on July 23, 2021. September 2021 breast MRI was somewhat concerning for progression of her primary breast mass however one of the satellite lesions was no longer identified. December 24, 2021 she completed her fourth and last cycle of Adriamycin, Cytoxan and pembrolizumab. February 23, 2022 patient went a needle localized lumpectomy and oncoplastic reconstruction of the right breast with right mastopexy (60g removed). Her pathology came back negative for invasive disease with only 3.5 mm of DCIS with all margins negative. 0 out of 5 lymph nodes negative. [id number]. Pathology was negative for LVSI. Of note final pathology did show treatment effect in both the breast and the lymph nodes. Frozen section diagnosis also reported treatment effect in all 5 lymph nodes per the operative report. Patient was seen in consultation on March 18 at that time her exam showed persistent wound dehiscence and she was scheduled to meet with wound care. Radiation was delayed until appropriate wound healing was confirmed. June 16, 2022 patient completed whole breast radiation including regional liliana radiation using conventional fractionation with a boost due to her young age and advanced disease. She received total of 50 Benavidez in 25 fractions followed by a 10 Benavidez 5 fraction boost. She tolerated radiation therapy well and worked full-time during her treatment course. She did experience expected radiation dermatitis and moist desquamation in the axilla for which she was given Silvadene. Today patient has been off her Keytruda for 6 weeks. She is on steroids for theadrenal insufficiency but states she is not always compliant with taking eveningdose. She reports an occasional headache. Ongoing nausea. She also reports occasional memory loss and chemo brain type symptoms. Physical exam: General: Alert and oriented, no acute distress. HEENT: Normocephalic, extraocular movements intact Chest: Normal work of breathing on room air Breast: Right breast shows surgical incision from oncoplastic reduction to be well-healed. Mild residual tanning consistent with the radiation field. Abdomen: Nonacute MSK: Extremities within normal limits Dictated By: Stacie Thomas MD DD/ 8 Signed By: <Electronically signed by Stacie Thomas MD> 07/15/22 0963 [facility] Work Phone: 1(235) 756-396312-02-2022 Progress note Author Kallie Chang [facility] June 19, 2022 9:06am Note Date/Time June 18, 2022 1 0:26am [facility] [place] [address] Hem/Onc Follow Up Note - OP Signed Patient: Tenisha Hancock MR#: [id number] : 1975 Acct:[id number] Age/Sex: 47 / F Type: REG RCR Copies to: MD Eliel Perdue MD Norleena Poynter, MD~ Subjective Date/Time of Service: Date of Service: 06/18/2022 Time of Service: 10:00 Chief Complaint: Patient is here for a 3 month follow up, finsihed radiation 06/16/2022. She has labs for review prior to treatment today. Patient reports nausea and vomiting. HPI: 06/19/2022: Rachel completed radiation therapy on 06/16/2022: continued nausea with generalized weakness and diffuse body aches. She has pain over joints, pain rising to stand and ambulating. Labs reveal low cortisol and normal ACTH suggesting immunotherapy related adrenal insufficiency, thyroid function normal. We discussed holding pembrolizumab today and starting replacement dose hydrocortisone 20mg am/10mg pm. 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 We may give full dose slow prednisone taper if continued arthralgias on immunotherapy. Will determine whether she continues further pembrolizumab if persistent arthralgia. High complexity 45 minute visit to manage immunotherapy related adrenal insufficiency and arthralgia. 03/12/2022: Rachel is here following her needle localized lumpectomy with oncoplastic reconstruction of right breast with right mastopexy on 02/17/2022 by Drs. Saunders/Drew ([facility]). 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 DCIS had estrogen receptor 5% and progesterone receptor negative therefore she is not a candidate for adjuvant hormonal therapy. -- Prior to neoadjuvant therapy the patient's clinical stage was T2N0 (baseline tumor about 2.5 cm by exam). Pathologic stage is ypTis pN0 pMx (3.5mm). She ishealing well with mild residual pain at sites but no drainage from incisions which are healing well. Due to in situ disease only, she does not require further chemotherapy and we will send her to radiation to discuss radiation for her in situ disease. As per the [id number] study, the patient will receive 9 additional cycles of pembrolizumab every 3 weeks following her radiation therapythen observation. The patient expresses understanding and will return after radiation oncology evaluation to and I will see her for follow-up cycle 2. High complexity 45-minute visit for review of outside operative notes and final pathology after right lumpectomy/reconstruction. 12/24/2021: Rachel presents after completing her 4th and last cycle of Adriamycin, Cytoxan and Pembrolizumab. She notes some lingering fatigue and nausea without vomiting. She also notes a few days of diarrhea with some improvement today. Otherwise she does not admit to any other complaints. Her labs are reviewed and stable overall, no significant cytopenias. She is unsure of her next steps and has a lot of questions related to surgical options as wellas if she will need radiation therapy. She met with Dr. Simons and has an appointment scheduled at [facility] to discuss josep flap surgery as well. We have advised her to follow-up with Dr. Reza to review her options and answer herquestions related to timing with the surgeon and plastic surgeon. We reviewed lumpectomy vs. mastectomy and the role radiation plays as well. We will plan to follow-up 2 weeks postop, and she will call us with her surgery date once decisions have been made. 12/03/2021: Rachel presents for cycle 3, week 2 toxicity check for Adriamycin/Cytoxan/Pembrolizumab. She continues to note fatigue and nausea but has not had any further neutropenia since dose reduction. We are coordinating evaluation by Dr. Simons with plastic surgery as well as Dr. Reza for planned end of therapy with last cycle due on December 17, 2021. The patient is undecided whether she would like to proceed with breast conservation option versus immediate reconstruction with mastectomy. Dr. Simons was contacted to arrange initial evaluation and she may see nurse practitioner for follow-up 1 week after her last cycle of Adriamycin/Cytoxan/Pembrolizumab. I will see her about 2 weeks postoperatively from her definitive therapy to review pathology and any further therapy options at that point. 11/12/2021: Rachel is here for cycle 2, week 2 toxicity check for Adriamycin/Cytoxan/Pembrolizumab. She was given 20% dose reduction Adriamycin and Cytoxan due to neutropenia last cycle and notes that she felt even more fatigued this cycle than prior cycle. She did not have any oral mucositis and met with Dr. Reza but he was unable to review her prior films. She did notrequire any further interventions since surgical clip was placed in the past. She still is undecided whether she will proceed with lumpectomy or mastectomy. I will refer her back for surgical evaluation after completion of her 4 cycles of Adriamycin/Cytoxan/Pembrolizumab. Currently she does not have any cytopeniasnoted recommend proceeding with same dose of therapy. 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 Next follow-up in 3 weeks fortoxicity check or sooner as needed. 10/22/2021: Rachel is here for toxicity check after cycle 1 of Adriamycin/Cytoxan/Pembrolizumab 1 week ago. She notes that she had increased fatigue and persistent nausea and her total white blood cell count is 1200 with ANC 100. No fever, chills, night sweats, or signs or symptoms of infection. Wediscussed dose reduction by 20% due to her neutropenia. Baseline echocardiogramprior to Adriamycin and Cytoxan was 55 to 60%. MRI of the breast was reviewed in comparison to her initial MRI in May 2022 that shows some progression ofher primary breast mass and one of the satellite lesions is no longer identified. Patient does note that after her breast MRI she did undergo placement of clip at the site of her prior lesions. She wanted to transfer her care for surgical evaluation by Dr. Reza and I will place consult for him to evaluate her to plan surgery following 3 more cycles of Adriamycin/Cytoxan/Pembroluzumab. Otherwise she will follow-up for next cycle of chemotherapy in 2 weeks and toxicity visit the following week after 20% dose reduction of both Adriamycin and Cytoxan. 10/08/2021: Rachel is here for followup after completing 4 cycles of neoadjuvant carboplatin AUC 5 with weekly paclitaxel 80 mg/m? and every 3-week Pembroluzumab 200 mg. She is on her last dose of 12-week paclitaxel today. We ordered an MRI on her and reviewed the images with her in clinic today but finalreport is still pending radiology read. I reviewed her case with breast medical oncologist Dr. Vinh Bucio who agreed that patient should likely continue on Adriamycin/Cytoxan/Pembrolizumab every 3 weeks for 4 more cycles as previously written. She had a baseline echocardiogram in May but we will repeat this prior to starting her next round of chemo in 1 week. Her next follow-up for toxicity visit will be cycle 1 week 2 and we will coordinate surgery evaluation based on her breast MRI to review her response to initial therapy. Symptoms are otherwise stable on weekly paclitaxel with minimal neuropathy. I contacted radiology and breast MRI should be read early next week. 09/24/2021: Rachel is a 46-year-old lady who is currently cycle 4-day 1 for neoadjuvant carboplatin AUC 5 (dose adjusted for adjusted body weight), weekly paclitaxel 80 mg/m?, and every 3-week Pembrolizumab 200 mg. She has tolerated chemotherapy reasonably well with nausea and IBS symptoms but she has not had any significant neutropenia. She has not noticed any clinical difference in herbreast exam, although in comparison to prior notes there is a 9 discrete area onexam 3 to 4 cm of thickening in the right 10:00 to 11:00 area. There is no skindimpling or nipple discharge or retraction. I do not feel any palpable masses in the axilla. Although the patient previously saw Dr. Red at diagnosis, she is uncertain of the plan for surgery. Since she had negative genetic testing it is unlikely that she will have bilateral mastectomy and reconstruction, however we can coordinate her evaluation by surgery locally if she wishes. --Otherwise we decided to proceed with her fourth cycle of carboplatin/paclitaxel/Pembrolizumab today. She had a baseline MRI and I will schedule repeat MRI after her fourth cycle and reevaluate her response to disease. Originally Dr. Phoenix had consented her to proceed with Adriamycin and Cytoxan with Pembrolizumab for 4 more cycles following her carboplatin/paclitaxel/Pembrolizumab. I will review this with tertiary breast medical oncologist Dr. Vinh Bucio to determine whether she should proceed with further therapy or be evaluated for surgery. Patient will follow up with me in approximately 2 weeks after her MRI to review subsequent plan of therapy. Previous notes from Dr. Phoenix, last seen 08/18/2021: Tenisha presents August 20, 2021 for cycle 2, day 7 of neoadjuvant chemotherapy for triple negative breast cancer. She does have some progressive alopecia. No nausea vomiting diarrhea. The breast mass in the right breast is not as evidence with deep palpation. Youcan still feel it but it appears to be smaller somewhat. In the right axilla there is a very small pinpoint hard nodule fairly superficial. Her tolerance to therapy to date has been overall good. BRCA testing was done through [employer] and is negative. She does have left foot numbness. MRI was done of the lumbar spine and does show multiple areas of degenerative disc disease. The patient has a known history of problem both in her lumbar spine and what appears in her cervical spine. I will refer her to Dr. Castle for consideration of kyphoplasty or other. I willdefer to his impression and recommendations. MOHEGAN: This is a 46 year old female, recently diagnosed with triple negative right breast cancer; currently undergoing neoadjuvant pembrolizumab, carboplatin AUC 4and weekly paclitaxel x6 cycles, which commenced: 07/22/2021. This is a 46-year-old female who works at [employer] with triple negative breast cancer, referred for neoadjuvant chemotherapy. Mammogramon on April 22, 2021 showed 3 new focal masses with the largest measuring 2 cm in size in the right breast. 2 additional lesions measuring 1 cm and a second 0.9 cm were also seen. The patient was referred for biopsy. Needle biopsy showed triple negative breast cancer, ER negative, LA negative, and H ER 2 -. The patient was referred to Dr. Ismael Red for Utqhmj-y-Rild which she has had placed. She has seen my colleague Dr. Smith at the [facility] recommended neoadjuvant chemotherapy and immunotherapy. Because of insurance reasons, she will be getting her treatment here at [facility]. She has had echocardiography as well. According the patient an MRI was obtained prior to neoadjuvant therapy while she was at [facility] we are requesting this prior study. She does have a palpable breast mass. It is in the lower mid quadrant of the right breast. Mammogram on on April 22, 2021 showed 3 new focal masses with the largest measuring 2 cm in size in the right breast. 2 additional lesions measuring 1 cmand a second 0.9 cm were also seen. The patient was referred for biopsy. Needle biopsy showed triple negative breast cancer, ER negative, LA negative, and HER 2 -. The patient was referred to Dr. Ismael Red for Qugmgi-p-Ewlv which she has had placed. She has seen my colleague Dr. Smith at the [facility] recommended neoadjuvant chemotherapy and immunotherapy. Because of insurance reasons, she will be getting her treatment here at [facility]. She has had echocardiography as well. PET/CT scan was denied by insurance and she underwent CT scan of the chest/abdomen/pelvis on 07/16/2021 which showed no obvious evidence of distant metastatic disease. As noted above, Cycle 1, Day 1 (Carboplatin/Paclitaxel/Pembrolizumab) commenced 07/22/2021 and this was well tolerated. The patient went home that evening and began to feel flushed, general malaise, etc. She subsequently tested positive for COVID - 19 per PCR the following day, 07/23/2021. Her symptoms were quite mild; however, next cycle of chemotherapy was pushed out 2 days and she is here today for Cycle 1, Day 8 of single agent Paclitaxel. She does have a palpable breast mass in the lower mid quadrant of the right breast; she was concerned about a lump under her right axilla but upon exam wehad trouble locating a discrete nodule or lymph node. Otherwise, her only complaint is continued low back pain with radiculopathy involving the left groin/hip and left lower extremity with associated numbness in left foot. She has known neuroma of the left foot and was in the process of being worked up by pain management (Dr. Monique) for lumbar pain; radiculopathy. - Summary of Therapies Summary of Therapies: 1. Neoadjuvant Carboplatin AUC 5-day 1, Pembrolizumab 200 mg day 1, Paclitaxel 80 mg meter squared weekly each 21-day cycle for planned 4 cycles: started Cycle1, Day 1: 07/22/2021, cycle 4 09/24/2021 --Plan 10/15/2021: Start Pembrolizumab 200 mg day 1, doxorubicin 60 mg/m? day 1,and cyclophosphamide 600 mg/m? day 1 every 21 days x 4 cycles followed by adjuvant Pembrolizumab 200 mg IV every 21 days x 9 cycles --Original breast MRI obtained from [facility] from May 2021, follow-up breast MRI performed 10/07/2021 for initial response to therapy. Patient requested an opinion from Dr. Reza for planning breast surgery options based on MRI (she does note that prior biopsy clips were placed after her original MRI for further neoadjuvant therapy). -- 20% dose reduction doxorubicin and cyclophosphamide cycle 2 for neutropenia. Last dose of Adriamycin, cyclophosphamide, Pembrolizumab due 12/17/2021. End of therapy echo may be ordered preoperatively in late December. 2. 02/17/2022 at [facility], Drs. Saunders/Drew: needle localized lumpectomy with oncoplastic reconstruction of right breast with right mastopexy 3. Adjuvant radiation: Right SCV axilla 5000 cGy 05/04-06/07/22 25 fractions over 34 elapsed days. Right breast 5000 cGy 05/04-06/07/22 25 fractions over 34elapsed days. Cavity boost 1000 cGy 06/08-06/16/2022 5 fractions over 8 days. 4. Resumed Immunotherapy Pembrolizumab 200 mg IV every 3 weeks for 9 more cycles--first postop dose was 05/28/2022. Stopped 06/18/2022 after 1 postop dose dueto immunotherapy related arthralgias/myalgia and adrenal insufficiency. No hormonal therapy indicated for triple negative disease. ROS Details: All systems reviewed & no additional complaints except as documented Subjective/ROS - Narrative: CONSTITUTIONAL: Positive for generalized fatigue, negative for fever or night sweats. Still able to perform activities of daily living. HEAD AND NECK: Negative for changes in hearing and vision. Negative for mouth ulcers, nasal congestion and nasal drainage. BREASTS: Status post right lumpectomy with oncoplastic reconstruction/right mastopexy well-healed incisions without tenderness to palpation. No lymphedema or axillary fullness right. Left breast and axilla unremarkable. PULMONARY: Negative for chest pain, cough and dyspnea. CARDIOVASCULAR: Negative for claudication and irregular heartbeat/palpitations. GASTROINTESTINAL: Negative for abdominal pain, constipation, decreased appetite,diarrhea. Positive for recent nausea or vomiting over the past 2 to 3 weeks. GENITOURINARY: Negative for dysuria and hematuria. ENDOCRINE: Negative for cold intolerance and heat intolerance. Positive for fatigue and nausea due to immunotherapy related adrenal insufficiency--started hydrocortisone 20 mg a.m./10 mg p.m. at 06/18/2022 visit. CENTRAL NERVOUS SYSTEM: Positive for gait disturbance due to myalgia/arthralgia. Negative for headache. No significant motor neuropathy or focal deficits. PSYCHIATRIC: Negative for anxiety. Positive distress mood regarding recent symptoms. DERMATOLOGICAL: Negative for pruritus and rash. Negative for suspicious skin lesions. MUSCULOSKELETAL: Stable lumbar back pain. New generalized arthralgias and myalgias--noted at 06/18 visit, stopped immunotherapy for symptoms. HEMATOLOGICAL: Negative for bleeding and easy bruising. Negative for history of transfusion or thromboembolic disease. Laboratories with cycle 1 AC Pembroluzumab showed neutropenia without fever. No neutropenia after dose reduction cycle 2. ALLERGY: Negative for environmental allergies and food allergies. PMFSH - History Attestation statement: The following information was validated with the patient. Source: Old Records Reviewed - Medical History Medical History: Medical History (Last Reviewed 06/19/22 @ 08:34 by Kallie Chang MD) Arthritis COVID-19 Headache High blood cholesterol - Surgical History Surgical History: Surgical History (Last Reviewed 06/19/22 @ 08:34 by Kallie Chang MD) History of breast biopsy right 05/26/2021 History of carpal tunnel release History of cholecystectomy History of foot surgery right - Family History Family History: Family History (Last Reviewed 06/19/22 @ 08:34 by Kallie Chang MD) Brother Lung cancer Father Cancer Mother COPD (chronic obstructive pulmonary disease) - Social History Smoking Status: Former smoker Tobacco Type: cigarettes Substance Use Type: None Home Medications & Allergies Allergies No Known Allergies Allergy (Verified 03/12/22 08:56) Home Medications htilcoa-itnaglljpnkuu-uxgbamty 250 mg-250 mg-65 mg tablet (Excedrin Migraine) 1 tab PO Q4-6H PRN Headache 07/08/21 [History Confirmed 06/18/22] citalopram 20 mg tablet 20 mg PO DAILY 07/08/21 [History Confirmed 06/18/22] omeprazole 20 mg capsule,delayed release 20 mg PO DAILY 07/08/21 [History Confirmed 06/18/22] ondansetron 8 mg disintegrating tablet 8 mg PO Q8H #90 tabs 06/02/22 [Rx Confirmed 06/18/22] mometasone 0.1 % topical cream 1 applic topical DAILY #45 grams 06/09/22 [Rx Confirmed 06/18/22] silver sulfadiazine 1 % topical cream (Silvadene) 1 applic topical DAILY #60 grams 06/09/22 [Rx Confirmed 06/18/22] hydrocortisone 10 mg tablet See Rx Instructions .Route .COMPLEX 30 days #90 tabs108/19/21 [Rx] Objective - Height/Weight Height/Weight: Height 5 ft 3 in Weight 78.9 kg BSA for Today's Weight 2.01 - Vital Signs Vital Signs: 06/18/22 10:07 Temperature 98.4 F Pulse Rate [Left Brachial] 84 Respiratory Rate 20 Blood Pressure [Left Arm] 117/80 02 Sat by Pulse Oximetry 100 Oxygen Delivery Method Room Air - Pain Left Shoulder Pain Intensity: 5 Lower Back Pain Intensity: 4 Generalized Left Pain Intensity: 5 Physical Exam Narrative: GENERAL: Alert, pleasant, no acute distress, but pain with ambulating and delayed rise to stand due to arthralgias/myalgia. HEENT: Oral mucosa is pink/moist; no lesions or exudate. Neck supple without adenopathy or thyromegaly. BREAST: Well-healed incisions from right lumpectomy with breast reconstruction/mastopexy. No masses left breast. No axillary fullness or tenderness. HEART: RRR; no murmurs/rubs or gallops; S1 and S2 normal. No edema. LUNGS: CTA bilaterally; no wheezes or crackles. Normal respiratory effort. ABDOMEN: Soft, non tender. BS present x 4 quadrants. No HSM. INTEGUMENTARY: Warm, dry; no skin rashes. LYMPHATICS: No lymphadenopathy appreciated. MUSCULOSKELETAL: No vertebral tenderness or step-off deformity. No palpable synovitis of joints. Decreased range of motion due to arthralgias/myalgia. NEUROLOGICAL: Grossly intact, patient is alert and oriented x 3; positive for antalgic gait but no focal deficits. - ECOG Performance Status ECOG Score: 2 Results - Labs Labs: Diagram of Most Recent CBC and CMP 06/17/22 11:25 06/17/22 11:25 Labs - Last 7 Days 06/17/22 11:25: PHA Creatinine Clear 110.52, Sodium 133 L, Potassium 3.6, Chloride 101, Carbon Dioxide 24.5, Anion Gap 11.1, BUN 7 L, Creatinine 0.66, EstGFR ( Amer) > 60, Est GFR (Non-Af Amer) > 60, Glucose 94, Calcium 9.5, Total Bilirubin 0.8, AST 36, ALT 34, Alkaline Phosphatase 82, Total Protein 6.2,Albumin 3.6, Globulin 2.6, Albumin/Globulin Ratio 1.4 06/17/22 11:25: Corrected WBC 5.1, Uncorrected WBC Count 5.1, RBC 3.64, Hgb 10.7L, Hct 32.8 L, MCV 90.0, MCH 29.5, MCHC 32.8, RDW 13.2, Plt Count 241, MPV 7.2, Neut % (Auto) 69.1, Lymph % (Auto) 17.2, [place] % (Auto) 10.3, Eos % (Auto) 2.7, Baso % (Auto) 0.7, Nucleat RBC Rel Count 0.0, Neut # (Auto) 3.5, Lymph # (Auto) 0.9 L, Greenwood # (Auto) 0.5, Eos # (Auto) 0.1, Baso # (Auto) 0.0 06/17/22 11:25: Free T4 0.43 L, TSH 3rd Generation 2.66, Total Cortisol 0.4 - Impressions No new imaging for review. 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 Right lumpectomy/breast reconstruction/mastopexy 02/17/2022--small area of ductal carcinoma in situ 3.5 mm but no invasive disease. 5 lymph nodes were negative for carcinoma. (1) Breast cancer Qualifiers: Breast location: overlapping sites of breast Patient sex: female Laterality: right Patient is a now 47-year-old female presenting with 3 discernible masses by mammography (04/22/2021) with needle biopsy confirming triple negative breast cancer. She was initially see in consultation by Dr. Smith at [facility] in [place], [place]; however, due to insurance reasons the [facility]. In reviewing notes from her prior physician from 06/20/2021 she had 3 focal nodules with largest measuring 2 x 1.8 cm 6 o'clock position, 2 additional lesions measuring 1 x 0.7 cm and another 0.9 x 0.6 cm. BI-RADS spot compression view right breast showed persistent 2.4 x 2.2 cm partially obscured round mass with pleomorphic calcifications. She did have breast MRI prior to initiation of neoadjuvant therapy which I do not have records from this from [facility] in [place]. I am requesting this to evaluate her baseline study since transfer of care from Dr. Phoenix to myself. She also had reported normal baseline echo in May 2021. She commenced neoadjuvant Carboplatin/Paclitaxel/Pembrolizumab therapy on 07/22/2021; Our treatment plan will be pembrolizumab 200 mg IV every 3 weeks with weekly paclitaxel 80 mg/m? IV and q. 21 days carboplatin AUC 5 for 4 cycles. This treatment regimen is based on KEYNOTE 522 trial and is now standard of careand NCCN guidelines. After review of her MRI from outside hospital, I will repeat her breast MRI for new baseline here. If stable to responding disease wemay continue prior plan for followed by pembrolizumab every 3 weeks with Adriamycin and cyclophosphamide for 4 cycles. The patient would like reassessment by general surgery for surgical plan and we will determine whether she proceeds with mastectomy or lumpectomy based on his results. Baseline genetic testing returned negative from prior physicians at [facility]. BRCA testing negative Follow-up September is cycle 4 -day 1. Tolerance is overall good-- Proceed with cycle 4 with breast MRI prior to 2-week follow-up in comparison to baseline MRI. This will be useful in surgical planning. I am discussing her case with tertiary breast oncology Dr. Vinh Bucio to see if he concurs withthis plan. If decision is made to commence AC Pembroluzumab we will repeat her echocardiogram prior to this and obtain her prior echo results. --Physical exam may be showing some evidence of response with the lump in the right breast being not as conspicuous as compared to prior notes although it is unclear to evaluate by exam, therefore MRI is ordered. --My plan at this time will be to press on and continue our chemotherapy per plan. I will see her in 2 weeks. 10/08/2021: Patient is here for her last paclitaxel prior to changing agents for neoadjuvant therapy to Adriamycin/cyclophosphamide/pembrolizumab. She is due for follow-up echocardiogram prior to starting anthracycline. She had discussedpotentially changing surgeons to Dr. Reza and I contacted him regarding breast MRI for surgical planning. We will review her prior MRI from [facility] in May 2021 in comparison to most recent MRI (report pending). Of note outside MRI noted no biopsy clips in place and we may need to rebiopsy to place clips at sites of residual tumor masses prior to continuing further neoadjuvant therapy. We will coordinate a time for him to meet with the patientto discuss surgical options of lumpectomy versus mastectomy. Patient will commence her Adriamycin/cyclophosphamide/Pembrolizumab at 10/15/2021 and I will follow-up with her in early October for toxicity visit for tolerance. 10/22/2021: Change to Adriamycin/cyclophosphamide/Pembrolizumab with neutropenia noted but no fever. Echocardiogram at baseline was 55 to 60%. Other than nauseano other significant toxicities. MRI was reviewed and [facility] tumor board with Dr. Reza and he will be arranging evaluation for surgical options. Consultation was placed to him today. We willdose reduce Adriamycin and cyclophosphamide both by 20% due to her neutropenia. Otherwise may proceed with chemotherapy in 2 weeks he can follow-up in 3 weeks either with myself or nurse practitioner for toxicity review. 11/12/2021: Here for cycle 2-day 8 toxicity visit on now 20% dose reduced Adriamycin/cyclophosphamide/Pembrolizumab due to neutropenia without fever last cycle. Persistent fatigue and nausea without mouth ulcers. No neutropenia thiscycle. The patient met with Dr. Reza and will follow-up with her at end oftherapy. She is still not decided whether she would like to proceed with lumpectomy or mastectomy plus minus reconstruction. We will coordinate 3-week follow-up toxicity visit with nurse practitioner cycle 3-day 8--no dose reduction since she does not have any significant cytopenias. 12/03/2021: Here for cycle 3-day 8 toxicity visit on 20% dose reduced Adriamycin/cyclophosphamide/Pembrolizumab with no new toxicities. No cytopeniasare noted. I am coordinating plastic surgery consultation with Dr. Berny Simons prior to evaluation by Dr. Reza to determine surgical approach. She will have 1 more dose of chemotherapy due on 12/17/2021 and will follow-up with nurse practitioner 1 week following her chemo. She will require end of therapy echocardiogram in late December. I will see her in follow-up 2 weeks after her definitive surgery to review pathology and further plan for therapy/surveillance. Moderate complexity visit over 35 minutes for symptom review on chemotherapy, coordination with Dr. Simons and Dr. Reza of breast surgery for surgical plan. 12/24/2021: She is here for toxicity check after completion of 4 cycles of AC+Pembro. She has some lingering fatigue and nausea, but otherwise ok. Labs reviewed and ok. She will schedule follow-up with Dr. Reza to discuss surgical intervention and schedule surgery. We will plan for follow-up 2 weeks postop to discuss final pathology and next steps. She will call us with the scheduled surgery date. Her end of treatment ECHO is scheduled for 01/07/2022. 03/12/2022: Patient returns after right lumpectomy/breast reconstruction/mastopexy 02/17/2022 well-healed without complaints. 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 5 lymph nodes were negative for carcinoma. We discussed referral to radiation oncology after she has well-healed, then she may resume pembrolizumab 200 mg IV every 3 weeks for 9 further cycles as per KEYNOTE 522. No hormonal therapy indicated due to triple negative breast cancer. I will see her in follow-up with immunotherapy labs adjuvant cycle 2-day 1 Pembrolizumab orsooner if new issues arise. High complexity visit over 45 minutes to review outside operative notes, pathology, and to discuss adjuvant radiation and immunotherapy. 06/19/2022: Patient has now completed her adjuvant radiation therapy on 06/16/2022. She resumed her first postop dose of Pembrolizumab on 05/28/2022 and has had intractable arthralgias and myalgias. She is also has had nausea and vomiting and is noted to have cortisol level of 0.2 with normal ACTH. This is consistent with immunotherapy induced adrenal insufficiency. We will hold pembrolizumab today and start hydrocortisone 20 mg a.m./10 mg p.m. reassessed byNP in 1 week to see if arthralgia symptoms are improved. If she has persistent arthralgias and myalgias she may get full dose prednisone with slow taper (prednisone 60 mg x 1 week, 40 mg x 1 week, 20 mg x 1 week, 10 mg x 1 week). Ifarthralgias completely resolved with hydrocortisone therapy we may consider resuming Keytruda for remaining doses. Next follow-up with me will be in around6 weeks or sooner as needed. High complexity visit over 45 minutes to address new toxicities. (2) Lumbar back pain with radiculopathy affecting left lower extremity Lumbar MRI results previously reviewed--degenerative disc disease but no evidence of metastatic cancer. Previously referred to Dr. Jameson Castle for his recommendations. (3) 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 As noted above patient has new immunotherapy associated adrenal insufficiency and is starting hydrocortisone 20 mg a.m./10 mg p.m. with reevaluation by nurse practitioner next week to review arthralgia and nausea/vomiting symptoms. Keytruda therapy is held today. (4) Arthralgia of multiple sites, bilateral This is also deemed associated with immunotherapy. We will assess her response to hydrocortisone next week and if persistent symptoms she can start on higher dose prednisone as above. (5) Encounter for coordination of complex care Discussion of new symptoms, coordination of treatment for immunotherapy, stopping Keytruda, reviewing adjuvant radiation course - Chemo Plan Chemo Plan (Dose, Rate, Freq): Neoadjuvant Carboplatin/Paclitaxel/Pembrolizumab therapy on 07/22/2021; Our treatment plan will be pembrolizumab 200 mg IV every 3 weeks with weekly paclitaxel 80 mg/m? IV and q. 21 days carboplatin AUC 5 for 4 cycles. This treatment regimen is based on KEYNOTE 522 trial and is now standard of care and NCCN guidelines. --After review of her MRI from outside hospital, I repeated her breast MRI for new baseline here. 10/17/2021: Cycle 1 day 1 pembrolizumab every 3 weeks with Adriamycin and cyclophosphamide for 4 cycles. 20% dose reduction Adriamycin andcyclophosphamide for neutropenia with cycle 2. -- She underwent lumpectomy with sentinel lymph node biopsy 02/17/2022 in [place]. Adjuvant radiation completed 05/04-06/16/2022. Total of 30 fractions. -- Resumed adjuvant Pembrolizumab 05/28/2022. Received 1 cycle and stopped 06/18/2022 due to persistent arthralgias/myalgia and adrenal insufficiency. We will determine based on response to low-dose steroids whether she can resume therapy. Number of Cycles: 8 Goal of Treatment: Curative - Time with Patient Time Spent with Patient (Follow Up Visit): 45 minutes or more - High complexity for review labs showing immunotherapy related adrenal insufficiency, arthralgia/myalgia. Stopping Keytruda and giving hydrocortisone for symptom management. Reassess by ASSOCIATE PROPERTY MANAGER for tolerance of therapy in 1 week. Good pathologicresponse with DCIS only on pathology Coordination of Care & Counseling Time: Greater than 50% of time spent with patient was for coordination of care (as documented) and [id number] counseling of patient and/or family. Dictated By: Kallie Chang MD DD/ 1026 Signed By: <Electronically signed by MD Kallie Chang> 06/19/22 09 [facility] Work Phone: [phone]) 372-846209-30-2022 Progress note Author Stacie Thomas [facility] April 17, 2022 9:21am Note Date/Time April 16, 2022 9:02am [facility] [place] [address] Rad Onc Follow Up Note - OP Signed with Addenda Patient: Tenisha Hancock MR#: [id number] : 1975 Acct:[id number] Age/Sex: 47 / F Type: REG RCR Copies to: MD Eliel Wilson MD~ ADDENDUM1 Correction, because of the need to treat the regional lymphatics, patient will be planned for 42.5Gy/16 fx to right breast, SCV, and Axilla followed by a 10Gy/4fx boost to the cavity. IMN will be included if able to meet constraints. Pt required ABC due to liver elevation. Addendum Dictated By: Stacie Thomas MD Addendum Signed By: 04/17/22920 Addendum Cosigned By: DD/ TD/TT: 04/17/22 Date of Service Service Date: 04/16/22 Assessment & Plan (1) Breast cancer Plan: CT simulation today - NOTE: At time of CT simulation patient was noted to have aresidual ipsilateral right tumor bed/cavity despite the oncoplastic reduction. Therefore her radiation prescription was changed for delivery of 40.05 Benavidez in 15 fractions followed by cavity boost of 10 Benavidez in 4 fractions for a total of [address] simulation showed significant liver elevation on the right. Due to her young age and need to minimize toxicity we will utilize ABC to spare the liver. This was explained to the patient and she is agreeable to the plan. Assessment: 46-year-old female who has been treated at several outside facilities. Per the available medical records she presented with a cT2N0 invasive ductal carcinoma of the right breast, grade 3, multifocal disease, triple negative. However in review of her June 11, 2021 MRI it appears there could have been involvementof the ipsilateral axillary lymph nodes despite being clinically negative. We will obtain this radiology report to confirm. Regardless she received neoadjuvant chemotherapy and immunotherapy in early February 2022 proceeded to right-sided lumpectomy with oncoplastic reduction. Final pathology confirmed 3.5 cm of residual DCIS with 0 out of 5 lymph nodes involved. [id number]. In review of her operative note as well as the final pathology it clearly states there was treatment effect in both the breast and the lymph nodes indicating shewas likely at least microscopically and pathologically node positive at presentation. Patient returns to clinic today and is planned for CT simulation and delivery of42.5 Benavidez in 16 fractions to the whole breast and regional lymphatics. Typically I would consider a boost to the cavity in light of her oncoplastic reduction this is not feasible. I again provided a general overview of radiation treatment planning and delivery. We discussed the need for immobilization and CT simulation. Short and long-term side effects were reviewed in detail and her questions were answered. She has previously been consulted. Follow Up Note - Narrative 47-year-old female with the following oncologic history: April 22 2021 screening mammogram confirming 3 new masses largest measuring 2 cm at the 6 o'clock position with 2 additional lesions in this vicinity measuring 1 cm and 9 mm in the upper outer quadrant and lower inner quadrant of the right breast. Left breast was negative. May 13, 2021 diagnostic mammogram showed a 2.4 partially obscured mildly lobular round mass with pleomorphic microcalcifications. Ultrasound confirmed the lesion at the 6 o'clock position with mildly lobular borders. May 26, 2021 ultrasound-guided core biopsy of the mass at 6:00 confirmed invasive ductal carcinoma, 9 mm, provisional grade 3, ER/LA negative and HER2 negative. Per the available notes her BRCA testing was done through [employer] and was negative. Also appears the right breast mass was palpable in the lower mid quadrant of the breast. [facility] and immunotherapy. Due to insurance reasons she received her systemic therapy here at [facility]. PET/CT was denied by insurance. CT scan of the chest abdomen pelvis on July 16, 2021 was negative for metastatic disease. Her clinical stage at presentation was cT2N0. June 11, 2021 patient did undergo an MRI in [place]. I do not have that report available however based on my review it appears there was multifocal disease with possibility of ipsilateral lymphadenopathy. July 22, 2021 patient was initiated on neoadjuvant carboplatin, paclitaxel, pembrolizumab. Of note she tested positive for COVID on July 23, 2021. September 2021 breast MRI was somewhat concerning for progression of her primary breast mass however one of the satellite lesions was no longer identified. December 24, 2021 she completed her fourth and last cycle of Adriamycin, Cytoxan and pembrolizumab. February 23, 2022 patient went a needle localized lumpectomy and oncoplastic reconstruction of the right breast with right mastopexy (60g removed). Her pathology came back negative for invasive disease with only 3.5 mm of DCIS with all margins negative. 0 out of 5 lymph nodes negative. [id number]. Pathology was negative for LVSI. Of note final pathology did show treatment effect in both the breast and the lymph nodes. Frozen section diagnosis also reported treatment effect in all 5 lymph nodes per the operative report. Patient was seen in consultation on March 18 at that time her exam showed persistent wound dehiscence and she was scheduled to meet with wound care. She returns to clinic today and was recently discharged from wound care and is healed well. She has no new breast related complaints. Physical exam: General: Alert and oriented, no acute distress. HEENT: Normocephalic, extraocular movements intact Chest: Normal work of breathing on room air Breast: Right breast shows surgical incision from oncoplastic reduction to be well-healed. Contralateral breast within normal limits. Lymph: No palpable cervical, supraclavicular, axillary lymphadenopathy bilaterally. Abdomen: Nonacute MSK: Extremities within normal limits Dictated By: Stacie Thomas MD DD/ 0901 Signed By: <Electronically signed by Stacie Thomas MD> 04/16/22 1256 [facility] Work Phone: [phone]) 679-879009-13-2022 NotePROCEDURE: XR GI UPPER AIR KUB DUAL CONTRAST, XR CINERADIOGRAPHY COMPARISON: None. HISTORY: Indigestion TECHNIQUE: An air contrast upper gastrointestinal series was performed in the usual manner. Standard level fluoroscopic mode of operation utilized. FINDINGS: ESOPHAGUS:Marked gastroesophageal reflux without visible stricture, abnormal dilation, or appreciable mucosal irregularity. No hiatal hernia. STOMACH: No obstruction, mass, or ulceration. Normal motility. DUODENUM:No ulceration or diverticulum. OTHER: Negative. IMPRESSION: 1. Marked gastroesophageal reflux. 2. No hiatal hernia. Electronically authenticated by: BARBER VASQUEZ Date: 2022 14:36[facility]09-13-2022 NotePROCEDURE: XR GI UPPER AIR KUB DUAL CONTRAST, XR CINERADIOGRAPHY COMPARISON: None. HISTORY: Indigestion TECHNIQUE: An air contrast upper gastrointestinal series was performed in the usual manner. Standard level fluoroscopic mode of operation utilized. FINDINGS: ESOPHAGUS:Marked gastroesophageal reflux without visible stricture, abnormal dilation, or appreciable mucosal irregularity. No hiatal hernia. STOMACH: No obstruction, mass, or ulceration. Normal motility. DUODENUM:No ulceration or diverticulum. OTHER: Negative. IMPRESSION: 1. Marked gastroesophageal reflux. 2. No hiatal hernia. Electronically authenticated by: BARBER VASQUEZ Date: 2022 14:36[facility]09-01-2022 Consult note Author Stacie Thomas [facility] March 19, 2022 10:56am Note Date/Time March 18, 2022 3: [address] [place] [address] [place] [address] Rad Onc Consult Note - OP Signed Patient: Tenisha Hancock MR#: [id number] : 1975 Acct:[id number] Age/Sex: 46 / F Type: REG RCR Copies to: MD Eliel Wilson MD~ Assessment & Plan (1) Breast cancer Plan: Obtain radiology report of 06/11/21 outside breast MRI Return to clinic in 1 month for follow-up Tentatively planned at that time for CT simulation to the right whole breast andregional lymphatics to a dose of 42.5 Benavidez in 16 fractions. Assessment: 46-year-old female who has been treated at several outside facilities. Per the available medical records she presented with a cT2N0 invasive ductal carcinoma of the right breast, grade 3, multifocal disease, triple negative. However in review of her June 11, 2021 MRI it appears there could have been involvementof the ipsilateral axillary lymph nodes despite being clinically negative. We will obtain this radiology report to confirm. Regardless she received neoadjuvant chemotherapy and immunotherapy in early February 2022 proceeded to right-sided lumpectomy with oncoplastic reduction. Final pathology confirmed 3.5 cm of residual DCIS with 0 out of 5 lymph nodes involved. [id number]. In review of her operative note as well as the final pathology it clearly states there was treatment effect in both the breast and the lymph nodes indicating shewas likely at least microscopically and pathologically node positive at presentation. We reviewed the role of adjuvant radiation in the treatment of triple negative breast cancer. The need for whole breast radiation after pathological complete response is a active clinical trial question. However in light of her young ageand aggressive nature of triple negative breast cancer she is a candidate for whole breast radiation and due to concern for lymph node involvement upfront I do favor comprehensive liliana radiation. Consequently I recommend 42.5 Benavidez in 16 fractions to the whole breast and regional lymphatics. Typically I would consider a boost to the cavity in light of her oncoplastic reduction this is notfeasible. I provided a general overview of radiation treatment planning and delivery. We discussed the need for immobilization and CT simulation. Short and long-term side effects were reviewed in detail and her questions were answered. She understands the risk of a secondary malignancy and was counseled on the importance of a cancer prevention lifestyle. She was consented to receive care. As her exam today shows a superficial wound dehiscence she will proceed to wound care. I would like to see her back in 1 month for follow-up and tentativeCT simulation. In light of the wound dehiscence as well as the lumpectomy and oncoplastic she needs additional time to heal. HPI Date of Service: 03/19/22 HPI: 46-year-old female with the following oncologic history: April 22 2021 screening mammogram confirming 3 new masses largest measuring 2 cm at the 6 o'clock position with 2 additional lesions in this vicinity measuring 1 cm and 9 mm in the upper outer quadrant and lower inner quadrant of the right breast. Left breast was negative. May 13, 2021 diagnostic mammogram showed a 2.4 partially obscured mildly lobular round mass with pleomorphic microcalcifications. Ultrasound confirmed the lesion at the 6 o'clock position with mildly lobular borders. May 26, 2021 ultrasound-guided core biopsy of the mass at 6:00 confirmed invasive ductal carcinoma, 9 mm, provisional grade 3, ER/LA negative and HER2 negative. Per the available notes her BRCA testing was done through [employer] and was negative. Also appears the right breast mass was palpable in the lower mid quadrant of the breast. [facility]. Due to insurance reasons she received her systemic therapy here at [facility]. PET/CT was denied by insurance. CT scan of the chest abdomen pelvis on July 16, 2021 was negative for metastatic disease. Her clinical stage at presentation was cT2N0. June 11, 2021 patient did undergo an MRI in [place]. I do not have that report available however based on my review it appears there was multifocal disease with possibility of ipsilateral lymphadenopathy. July 22, 2021 patient was initiated on neoadjuvant carboplatin, paclitaxel, pembrolizumab. Of note she tested positive for COVID on July 23, 2021. September 2021 breast MRI was somewhat concerning for progression of her primary breast mass however one of the satellite lesions was no longer identified. December 24, 2021 she completed her fourth and last cycle of Adriamycin, Cytoxan and pembrolizumab. February 23, 2022 patient went a needle localized lumpectomy and oncoplastic reconstruction of the right breast with right mastopexy (60g removed). Her pathology came back negative for invasive disease with only 3.5 mm of DCIS with all margins negative. 0 out of 5 lymph nodes negative. [id number]. Pathology was negative for LVSI. Of note final pathology did show treatment effect in both the breast and the lymph nodes. Frozen section diagnosis also reported treatment effect in all 5 lymph nodes per the operative report. She presents today for consideration of radiation. Today she is overall doing well does report fatigue from her systemic therapy. She is concerned regarding her surgical wound not healing and is planned to meet with wound care today. She states she was given a cream but cannot get the prescription filled anywherelocally. She is currently off work. Has no other breast related complaints. [facility] - Medical History Medical History: Medical History (Last Reviewed 03/12/22 @ 16:28 by Kallie Chang MD) Arthritis COVID-19 Headache High blood cholesterol - Surgical History Surgical History: Surgical History (Last Reviewed 03/12/22 @ 16:28 by Kallie Chang MD) History of breast biopsy right 05/26/2021 History of carpal tunnel release History of cholecystectomy History of foot surgery right - Family History Family History: Family History (Last Reviewed 03/12/22 @ 16:28 by Kallie Chang MD) Brother Lung cancer Father Cancer Mother COPD (chronic obstructive pulmonary disease) - Social History Smoking Status: Former smoker Tobacco Type: cigarettes Substance Use Type: None Home Medications & Allergies Allergies No Known Allergies Allergy (Verified 03/12/22 08:56) Home Medications [id number] 250 mg-250 mg-65 mg tablet (Excedrin Migraine) 1 tab PO Q4-6H PRN Headache 07/08/21 [History Confirmed 03/12/22] citalopram 20 mg tablet 20 mg PO DAILY 07/08/21 [History Confirmed 03/12/22] omeprazole 20 mg capsule,delayed release 20 mg PO DAILY 07/08/21 [History Confirmed 03/12/22] Subjective ROS: I reviewed the 12-point Review of Systems with the patient as per our standard questionnaire. Objective Height 5 ft 3 in Weight 89.358 kg Temp 97.7 F 03/12/22 08:56 Pulse 60 03/12/22 08:56 Resp 16 03/12/22 08:56 BP 131/85 03/12/22 08:56 Pulse Ox 98 03/12/22 08:56 O2 Del Method Room Air 03/12/22 08:56 Pain: 0/10 Karnofsky Performance Scale: 90%: Can perform normal activity, minor signs of disease Physical Exam: Physical exam: General: Alert and oriented, no acute distress. HEENT: Normocephalic, extraocular movements intact Chest: Normal work of breathing on room air Breast: Examination of the right breast shows mastopexy scars to be healing however there is a superficial wound dehiscence at inferior to the nipple approximately 1 cm x 1 cm in size. Exam also shows expected postoperative changes palpable edema. No palpable mass or abnormality. Contralateral breast within normal limits. Lymph: No palpable cervical, supraclavicular, axillary lymphadenopathy bilaterally. Exam limited by body habitus. Abdomen: Nonacute MSK: Extremities within normal limits Results CBC & Chem 7: 12/24/21 13:31 12/24/21 13:31 Dictated By: Stacie Thomas MD DD/ [id number] Signed By: <Electronically signed by Stacie Thomas MD> 03/19/22 10[address] [facility] Work Phone: 1(781) 157-206608-31-2022 Consult note Author Stacie Thomas [facility] March 19, 2022 10:56am Note Date/Time March 18, 2022 3: 31pm [facility] [place] [address] Rad Onc Consult Note - OP Signed Patient: Tenisha Hancock MR#: [id number] : 1975 Acct:[id number] Age/Sex: 46 / F Type: REG RCR Copies to: MD Eliel Wilson MD~ Assessment & Plan (1) Breast cancer Plan: Obtain radiology report of 06/11/21 outside breast MRI Return to clinic in 1 month for follow-up Tentatively planned at that time for CT simulation to the right whole breast andregional lymphatics to a dose of 42.5 Benavidez in 16 fractions. Assessment: 46-year-old female who has been treated at several outside facilities. Per the available medical records she presented with a cT2N0 invasive ductal carcinoma of the right breast, grade 3, multifocal disease, triple negative. However in review of her June 11, 2021 MRI it appears there could have been involvementof the ipsilateral axillary lymph nodes despite being clinically negative. We will obtain this radiology report to confirm. Regardless she received neoadjuvant chemotherapy and immunotherapy in early February 2022 proceeded to right-sided lumpectomy with oncoplastic reduction. Final pathology confirmed 3.5 cm of residual DCIS with 0 out of 5 lymph nodes involved. [id number]. In review of her operative note as well as the final pathology it clearly states there was treatment effect in both the breast and the lymph nodes indicating shewas likely at least microscopically and pathologically node positive at presentation. We reviewed the role of adjuvant radiation in the treatment of triple negative breast cancer. The need for whole breast radiation after pathological complete response is a active clinical trial question. However in light of her young ageand aggressive nature of triple negative breast cancer she is a candidate for whole breast radiation and due to concern for lymph node involvement upfront I do favor comprehensive liliana radiation. Consequently I recommend 42.5 Benavidez in 16 fractions to the whole breast and regional lymphatics. Typically I would consider a boost to the cavity in light of her oncoplastic reduction this is notfeasible. I provided a general overview of radiation treatment planning and delivery. We discussed the need for immobilization and CT simulation. Short and long-term side effects were reviewed in detail and her questions were answered. She understands the risk of a secondary malignancy and was counseled on the importance of a cancer prevention lifestyle. She was consented to receive care. As her exam today shows a superficial wound dehiscence she will proceed to wound care. I would like to see her back in 1 month for follow-up and tentativeCT simulation. In light of the wound dehiscence as well as the lumpectomy and oncoplastic she needs additional time to heal. HPI Date of Service: 03/19/22 HPI: 46-year-old female with the following oncologic history: April 22 2021 screening mammogram confirming 3 new masses largest measuring 2 cm at the 6 o'clock position with 2 additional lesions in this vicinity measuring 1 cm and 9 mm in the upper outer quadrant and lower inner quadrant of the right breast. Left breast was negative. May 13, 2021 diagnostic mammogram showed a 2.4 partially obscured mildly lobular round mass with pleomorphic microcalcifications. Ultrasound confirmed the lesion at the 6 o'clock position with mildly lobular borders. May 26, 2021 ultrasound-guided core biopsy of the mass at 6:00 confirmed invasive ductal carcinoma, 9 mm, provisional grade 3, ER/LA negative and HER2 negative. Per the available notes her BRCA testing was done through [employer] and was negative. Also appears the right breast mass was palpable in the lower mid quadrant of the breast. [facility]. Due to insurance reasons she received her systemic therapy here at [facility]. PET/CT was denied by insurance. CT scan of the chest abdomen pelvis on July 16, 2021 was negative for metastatic disease. Her clinical stage at presentation was cT2N0. June 11, 2021 patient did undergo an MRI in [place]. I do not have that report available however based on my review it appears there was multifocal disease with possibility of ipsilateral lymphadenopathy. July 22, 2021 patient was initiated on neoadjuvant carboplatin, paclitaxel, pembrolizumab. Of note she tested positive for COVID on July 23, 2021. September 2021 breast MRI was somewhat concerning for progression of her primary breast mass however one of the satellite lesions was no longer identified. December 24, 2021 she completed her fourth and last cycle of Adriamycin, Cytoxan and pembrolizumab. February 23, 2022 patient went a needle localized lumpectomy and oncoplastic reconstruction of the right breast with right mastopexy (60g removed). Her pathology came back negative for invasive disease with only 3.5 mm of DCIS with all margins negative. 0 out of 5 lymph nodes negative. [id number]. Pathology was negative for LVSI. Of note final pathology did show treatment effect in both the breast and the lymph nodes. Frozen section diagnosis also reported treatment effect in all 5 lymph nodes per the operative report. She presents today for consideration of radiation. Today she is overall doing well does report fatigue from her systemic therapy. She is concerned regarding her surgical wound not healing and is planned to meet with wound care today. She states she was given a cream but cannot get the prescription filled anywherelocally. She is currently off work. Has no other breast related complaints. [facility] - Medical History Medical History: Medical History (Last Reviewed 03/12/22 @ 16:28 by Kallie Chang MD) Arthritis COVID-19 Headache High blood cholesterol - Surgical History Surgical History: Surgical History (Last Reviewed 03/12/22 @ 16:28 by Kallie Chang MD) History of breast biopsy right 05/26/2021 History of carpal tunnel release History of cholecystectomy History of foot surgery right - Family History Family History: Family History (Last Reviewed 03/12/22 @ 16:28 by Kallie Chang MD) Brother Lung cancer Father Cancer Mother COPD (chronic obstructive pulmonary disease) - Social History Smoking Status: Former smoker Tobacco Type: cigarettes Substance Use Type: None Home Medications & Allergies Allergies No Known Allergies Allergy (Verified 03/12/22 08:56) Home Medications [id number]-[id number] 250 mg-250 mg-65 mg tablet (Excedrin Migraine) 1 tab PO Q4-6H PRN Headache 07/08/21 [History Confirmed 03/12/22] citalopram 20 mg tablet 20 mg PO DAILY 07/08/21 [History Confirmed 03/12/22] omeprazole 20 mg capsule,delayed release 20 mg PO DAILY 07/08/21 [History Confirmed 03/12/22] Subjective ROS: I reviewed the 12-point Review of Systems with the patient as per our standard questionnaire. Objective Height 5 ft 3 in Weight 89.358 kg Temp 97.7 F 03/12/22 08:56 Pulse 60 03/12/22 08:56 Resp 16 03/12/22 08:56 BP 131/85 03/12/22 08:56 Pulse Ox 98 03/12/22 08:56 O2 Del Method Room Air 03/12/22 08:56 Pain: 0/10 Karnofsky Performance Scale: 90%: Can perform normal activity, minor signs of disease Physical Exam: Physical exam: General: Alert and oriented, no acute distress. HEENT: Normocephalic, extraocular movements intact Chest: Normal work of breathing on room air Breast: Examination of the right breast shows mastopexy scars to be healing however there is a superficial wound dehiscence at inferior to the nipple approximately 1 cm x 1 cm in size. Exam also shows expected postoperative changes palpable edema. No palpable mass or abnormality. Contralateral breast within normal limits. Lymph: No palpable cervical, supraclavicular, axillary lymphadenopathy bilaterally. Exam limited by body habitus. Abdomen: Nonacute MSK: Extremities within normal limits Results CBC & Chem 7: 12/24/21 13:31 12/24/21 13:31 Dictated By: Stacie Thomas MD DD/ [id number] Signed By: <Electronically signed by Stacie Thomas MD> 03/19/22 5[address] [facility] Work Phone: [phone]) 207-713408-25-2022 Progress note Author Kallie Chang [facility] March 12, 2022 4:36pm Note Date/Time March 12, 2022 9: 49am [facility] at [address] [address] Hem/Onc Follow Up Note - OP Signed Patient: Tenisha Hancock MR#: [id number] : 1975 Acct:[id number] Age/Sex: 46 / F Type: REG RCR Copies to: Eliel Hurd MD~ Subjective Date/Time of Service: Date of Service: 03/12/2022 Time of Service: 08:48 Chief Complaint: Patient is here today for a 2 month follow up visit for breast cancer. She had a needle point lumpectomy with oncoplastic reconstructin HPI: 03/12/2022: Rachel is here following her needle localized lumpectomy with oncoplastic reconstruction of right breast with right mastopexy on 02/17/2022 by Drs. Saunders/Derw ([facility]). 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 DCIS had estrogen receptor 5% and progesterone receptor negative therefore she is not a candidate for adjuvant hormonal therapy. -- Prior to neoadjuvant therapy the patient's clinical stage was T2N0 (baseline tumor about 2.5 cm by exam). Pathologic stage is ypTis pN0 pMx (3.5mm). She ishealing well with mild residual pain at sites but no drainage from incisions which are healing well. Due to in situ disease only, she does not require further chemotherapy and we will send her to radiation to discuss radiation for her in situ disease. As per the [id number] study, the patient will receive 9 additional cycles of pembrolizumab every 3 weeks following her radiation therapythen observation. The patient expresses understanding and will return after radiation oncology evaluation to and I will see her for follow-up cycle 2. High complexity 45-minute visit for review of outside operative notes and final pathology after right lumpectomy/reconstruction. 12/24/2021: Rachel presents after completing her 4th and last cycle of Adriamycin, Cytoxan and Pembrolizumab. She notes some lingering fatigue and nausea without vomiting. She also notes a few days of diarrhea with some improvement today. Otherwise she does not admit to any other complaints. Her labs are reviewed and stable overall, no significant cytopenias. She is unsure of her next steps and has a lot of questions related to surgical options as well as if she will need radiation therapy. She met with Dr. Simons and has an appointment scheduled at [facility] to discuss josep flap surgery as well. We have advised her to follow-up with Dr. Reza to review her options and answer herquestions related to timing with the surgeon and plastic surgeon. We reviewed lumpectomy vs. mastectomy and the role radiation plays as well. We will plan to follow-up 2 weeks postop, and she will call us with her surgery date once decisions have been made. 12/03/2021: Rachel presents for cycle 3, week 2 toxicity check for Adriamycin/Cytoxan/Pembrolizumab. She continues to note fatigue and nausea but has not had any further neutropenia since dose reduction. We are coordinating evaluation by Dr. Simons with plastic surgery as well as Dr. Reza for planned end of therapy with last cycle due on December 17, 2021. The patient is undecided whether she would like to proceed with breast conservation option versus immediate reconstruction with mastectomy. Dr. Simons was contacted to arrange initial evaluation and she may see nurse practitioner for follow-up 1 week after her last cycle of Adriamycin/Cytoxan/Pembrolizumab. I will see her about 2 weeks postoperatively from her definitive therapy to review pathology and any further therapy options at that point. 11/12/2021: Rachel is here for cycle 2, week 2 toxicity check for Adriamycin/Cytoxan/Pembrolizumab. She was given 20% dose reduction Adriamycin and Cytoxan due to neutropenia last cycle and notes that she felt even more fatigued this cycle than prior cycle. She did not have any oral mucositis and met with Dr. Reza but he was unable to review her prior films. She did notrequire any further interventions since surgical clip was placed in the past. She still is undecided whether she will proceed with lumpectomy or mastectomy. I will refer her back for surgical evaluation after completion of her 4 cycles of Adriamycin/Cytoxan/Pembrolizumab. Currently she does not have any cytopeniasnoted recommend proceeding with same dose of therapy. 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 Next follow-up in 3 weeks fortoxicity check or sooner as needed. 10/22/2021: Rachel is here for toxicity check after cycle 1 of Adriamycin/Cytoxan/Pembrolizumab 1 week ago. She notes that she had increased fatigue and persistent nausea and her total white blood cell count is 1200 with ANC 100. No fever, chills, night sweats, or signs or symptoms of infection. Wediscussed dose reduction by 20% due to her neutropenia. Baseline echocardiogramprior to Adriamycin and Cytoxan was 55 to 60%. MRI of the breast was reviewed in comparison to her initial MRI in May 2022 that shows some progression ofher primary breast mass and one of the satellite lesions is no longer identified. Patient does note that after her breast MRI she did undergo placement of clip at the site of her prior lesions. She wanted to transfer her care for surgical evaluation by Dr. Reza and I will place consult for him to evaluate her to plan surgery following 3 more cycles of Adriamycin/Cytoxan/Pembroluzumab. Otherwise she will follow-up for next cycle of chemotherapy in 2 weeks and toxicity visit the following week after 20% dose reduction of both Adriamycin and Cytoxan. 10/08/2021: Rachel is here for followup after completing 4 cycles of neoadjuvant carboplatin AUC 5 with weekly paclitaxel 80 mg/m? and every 3-week Pembroluzumab 200 mg. She is on her last dose of 12-week paclitaxel today. We ordered an MRI on her and reviewed the images with her in clinic today but finalreport is still pending radiology read. I reviewed her case with breast medical oncologist Dr. Vinh Bucio who agreed that patient should likely continue on Adriamycin/Cytoxan/Pembrolizumab every 3 weeks for 4 more cycles as previously written. She had a baseline echocardiogram in May but we will repeat this prior to starting her next round of chemo in 1 week. Her next follow-up for toxicity visit will be cycle 1 week 2 and we will coordinate surgery evaluation based on her breast MRI to review her response to initial therapy. Symptoms are otherwise stable on weekly paclitaxel with minimal neuropathy. I contacted radiology and breast MRI should be read early next week. 09/24/2021: Rachel is a 46-year-old lady who is currently cycle 4-day 1 for neoadjuvant carboplatin AUC 5 (dose adjusted for adjusted body weight), weekly paclitaxel 80 mg/m?, and every 3-week Pembrolizumab 200 mg. She has tolerated chemotherapy reasonably well with nausea and IBS symptoms but she has not had any significant neutropenia. She has not noticed any clinical difference in herbreast exam, although in comparison to prior notes there is a 9 discrete area onexam 3 to 4 cm of thickening in the right 10:00 to 11:00 area. There is no skindimpling or nipple discharge or retraction. I do not feel any palpable masses in the axilla. Although the patient previously saw Dr. Red at diagnosis, she is uncertain of the plan for surgery. Since she had negative genetic testing it is unlikely that she will have bilateral mastectomy and reconstruction, however we can coordinate her evaluation by surgery locally if she wishes. --Otherwise we decided to proceed with her fourth cycle of carboplatin/paclitaxel/Pembrolizumab today. She had a baseline MRI and I will schedule repeat MRI after her fourth cycle and reevaluate her response to disease. Originally Dr. Phoenix had consented her to proceed with Adriamycin and Cytoxan with Pembrolizumab for 4 more cycles following her carboplatin/paclitaxel/Pembrolizumab. I will review this with tertiary breast medical oncologist Dr. Vinh Bucio to determine whether she should proceed with further therapy or be evaluated for surgery. Patient will follow up with me in approximately 2 weeks after her MRI to review subsequent plan of therapy. Previous notes from Dr. Phoenix, last seen 08/18/2021: Tenisha presents August 20, 2021 for cycle 2, day 7 of neoadjuvant chemotherapy for triple negative breast cancer. She does have some progressive alopecia. No nausea vomiting diarrhea. The breast mass in the right breast is not as evidence with deep palpation. Youcan still feel it but it appears to be smaller somewhat. In the right axilla there is a very small pinpoint hard nodule fairly superficial. Her tolerance to therapy to date has been overall good. BRCA testing was done through [employer] and is negative. She does have left foot numbness. MRI was done of the lumbar spine and does show multiple areas of degenerative disc disease. The patient has a known history of problem both in her lumbar spine and what appears in her cervical spine. I will refer her to Dr. Castle for consideration of kyphoplasty or other. I willdefer to his impression and recommendations. MOHEGAN: This is a 46 year old female, recently diagnosed with triple negative right breast cancer; currently undergoing neoadjuvant pembrolizumab, carboplatin AUC 4 and weekly paclitaxel x6 cycles, which commenced: 07/22/2021. This is a 46-year-old female who works at [employer] with triple negative breast cancer, referred for neoadjuvant chemotherapy. Mammogramon on April 22, 2021 showed 3 new focal masses with the largest measuring 2 cm in size in the right breast. 2 additional lesions measuring 1 cm and a second 0.9 cm were also seen. The patient was referred for biopsy. Needle biopsy showed triple negative breast cancer, ER negative, LA negative, and H ER 2 -. The patient was referred to Dr. Ismael Red for Kwtuhk-f-Qyfo which she has had placed. She has seen my colleague Dr. Smith at the [facility] recommended neoadjuvant chemotherapy and immunotherapy. Because of insurance reasons, she will be getting her treatment here at [facility]. She has had echocardiography as well. According the patient an MRI was obtained prior to neoadjuvant therapy while she was at [facility] we are requesting this prior study. She does have a palpable breast mass. It is in the lower mid quadrant of the right breast. Mammogram on on April 22, 2021 showed 3 new focal masses with the largest measuring 2 cm in size in the right breast. 2 additional lesions measuring 1 cmand a second 0.9 cm were also seen. The patient was referred for biopsy. Needle biopsy showed triple negative breast cancer, ER negative, LA negative, and HER 2 -. The patient was referred to Dr. Ismael Red for [id number]-Slwo which she has had placed. She has seen my colleague Dr. Smith at the [facility] recommended neoadjuvant chemotherapy and immunotherapy. Because of insurance reasons, she will be getting her treatment here at [facility]. She has had echocardiography as well. PET/CT scan was denied by insurance and she underwent CT scan of the chest/abdomen/pelvis on 07/16/2021 which showed no obvious evidence of distant metastatic disease. As noted above, Cycle 1, Day 1 (Carboplatin/Paclitaxel/Pembrolizumab) commenced 07/22/2021 and this was well tolerated. The patient went home that evening and began to feel flushed, general malaise, etc. She subsequently tested positive for COVID - 19 per PCR the following day, 07/23/2021. Her symptoms were quite mild; however, next cycle of chemotherapy was pushed out 2 days and she is here today for Cycle 1, Day 8 of single agent Paclitaxel. She does have a palpable breast mass in the lower mid quadrant of the right breast; she was concerned about a lump under her right axilla but upon exam wehad trouble locating a discrete nodule or lymph node. Otherwise, her only complaint is continued low back pain with radiculopathy involving the left groin/hip and left lower extremity with associated numbness in left foot. She hasknown neuroma of the left foot and was in the process of being worked up by painmanagement (Dr. Monique) for lumbar pain; radiculopathy. - Summary of Therapies Summary of Therapies: 1. Neoadjuvant Carboplatin AUC 5-day 1, Pembrolizumab 200 mg day 1, Paclitaxel 80 mg meter squared weekly each 21-day cycle for planned 4 cycles: started Cycle1, Day 1: 07/22/2021, cycle 4 09/24/2021 --Plan 10/15/2021: Start Pembrolizumab 200 mg day 1, doxorubicin 60 mg/m? day 1,and cyclophosphamide 600 mg/m? day 1 every 21 days x 4 cycles followed by adjuvant Pembrolizumab 200 mg IV every 21 days x 9 cycles --Original breast MRI obtained from [facility] from May 2021, follow-up breast MRI performed 10/07/2021 for initial response to therapy. Patient requested an opinion from Dr. Reza for planning breast surgery options based on MRI (she does note that prior biopsy clips were placed after her original MRI for further neoadjuvant therapy). -- 20% dose reduction doxorubicin and cyclophosphamide cycle 2 for neutropenia. Last dose of Adriamycin, cyclophosphamide, Pembrolizumab due 12/17/2021. End of therapy echo may be ordered preoperatively in late December. 2. 02/17/2022 at [facility], Drs. Saunders/Drew: needle localized lumpectomy with oncoplastic reconstruction of right breast with right mastopexy 3. 03/12/2022: Referral to radiation oncology, then resume Pembrolizumab 200 mg IV every 3 weeks for 9 more cycles. No hormonal therapy indicated for triple negative disease. ROS Details: All systems reviewed & no additional complaints except as documented Subjective/ROS - Narrative: CONSTITUTIONAL: Improved fatigue, negative for fever or night sweats. Still able to perform activities of daily living. HEAD AND NECK: Negative for changes in hearing and vision. Negative for mouth ulcers, nasal congestion and nasal drainage. BREASTS: Status post right lumpectomy with oncoplastic reconstruction/right mastopexy well-healed incisions without tenderness to palpation. No lymphedema or axillary fullness right. Left breast and axilla unremarkable. PULMONARY: Negative for chest pain, cough and dyspnea. CARDIOVASCULAR: Negative for claudication and irregular heartbeat/palpitations. GASTROINTESTINAL: Negative for abdominal pain, constipation, decreased appetite,diarrhea, nausea or vomiting. GENITOURINARY: Negative for dysuria and hematuria. ENDOCRINE: Negative for cold intolerance and heat intolerance. CENTRAL NERVOUS SYSTEM: Negative for gait disturbance and headache. PSYCHIATRIC: Negative for anxiety or depression. DERMATOLOGICAL: Negative for pruritus and rash. Negative for suspicious skin lesions. MUSCULOSKELETAL: Stable lumbar back pain and no bone/joint symptoms. HEMATOLOGICAL: Negative for bleeding and easy bruising. Negative for history of transfusion or thromboembolic disease. Laboratories with cycle 1 AC Pembroluzumab showed neutropenia without fever. No neutropenia after dose reduction cycle 2. ALLERGY: Negative for environmental allergies and food allergies. PMFSH - History Attestation statement: The following information was validated with the patient. Source: Old Records Reviewed - Medical History Medical History: Medical History (Last Reviewed 03/12/22 @ 16:28 by Kallie Chang MD) Arthritis COVID-19 Headache High blood cholesterol - Surgical History Surgical History: Surgical History (Last Reviewed 03/12/22 @ 16:28 by Kallie Chang MD) History of breast biopsy right 05/26/2021 History of carpal tunnel release History of cholecystectomy History of foot surgery right - Family History Family History: Family History (Last Reviewed 03/12/22 @ 16:28 by Kallie Chang MD) Brother Lung cancer Father Cancer Mother COPD (chronic obstructive pulmonary disease) - Social History Smoking Status: Former smoker Tobacco Type: cigarettes Substance Use Type: None Home Medications & Allergies Allergies No Known Allergies Allergy (Verified 03/12/22 08:56) Home Medications [id number]-ilplvqhzboqho-ixdmdnmg 250 mg-250 mg-65 mg tablet (Excedrin Migraine) 1 tab PO Q4-6H PRN Headache 07/08/21 [History Confirmed 03/12/22] citalopram 20 mg tablet 20 mg PO DAILY 07/08/21 [History Confirmed 03/12/22] omeprazole 20 mg capsule,delayed release 20 mg PO DAILY 07/08/21 [History Confirmed 03/12/22] Objective - Height/Weight Height/Weight: Height 5 ft 3 in Weight 89.358 kg BSA for Today's Weight 2.01 - Vital Signs Vital Signs: 03/12/22 08:56 Temperature 97.7 F Pulse Rate [Left Brachial] 60 Respiratory Rate 16 Blood Pressure [Left Arm] 131/85 02 Sat by Pulse Oximetry 98 Oxygen Delivery Method Room Air - Pain Left Shoulder Pain Intensity: 5 Lower Back Pain Intensity: 4 Generalized Left Pain Intensity: 5 Physical Exam Narrative: GENERAL: Alert, pleasant, no acute distress. HEENT: Oral mucosa is pink/moist; no lesions or exudate. Neck supple without adenopathy or thyromegaly. BREAST: Well-healed incisions from right lumpectomy with breast reconstruction/mastopexy. No masses left breast. No axillary fullness or tenderness. HEART: RRR; no murmurs/rubs or gallops; S1 and S2 normal. No edema. LUNGS: CTA bilaterally; no wheezes or crackles. Normal respiratory effort. ABDOMEN: Soft, non tender. BS present x 4 quadrants. No HSM. INTEGUMENTARY: Warm, dry; no skin rashes. LYMPHATICS: No lymphadenopathy appreciated. NEUROLOGICAL: Grossly intact, patient is alert and oriented x 3; normal gait. - ECOG Performance Status ECOG Score: 0 Results - Labs Labs: Diagram of Most Recent CBC and CMP 12/24/21 13:31 12/24/21 13:31 - Impressions Outside records reviewed prior operative note and pathology. - Other Results Results/Comments: Date of Service: 01/07/22 ECH/ECH echo transthoracic: end of therapy Copies to: MD Meghana Wilson MD, [facility]~ Weight: 196 lb Performed By: ARNOLD Alexis BSA: 1.9 m2 BP: 131/80 mmHg HR: 67 Reason For Study: end of therapy History: No cardiac history per patient Interpretation Summary Ejection Fraction = 55-60%. The left ventricular size, thickness and function are normal The left ventricular wall motion is normal. Normal strain pattern Normal transthoracic echocardiogram. Assessment and Plan - TNM Staging Staging: Stage II right breast invasive ductal carcinoma grade 3, estrogen receptor 0%, progesterone receptor 0%, HER-2 negative by IHC Clinical stage II with baseline tumor at least 2 or 2.5 cm (In comparison with prior 05/2021 MRI there was interval decrease of dominant mass to 1.5 cm in greatest dimension)--we will continue neoadjuvant therapy as previously written with AC plus pembrolizumab (1) Breast cancer Qualifiers: Breast location: overlapping sites of breast Patient sex: female Laterality: right Patient is a 46-year-old female presenting with 3 discernible masses by mammography (04/22/2021) with needle biopsy confirming triple negative breast cancer. She was initially see in consultation by Dr. Smith at [facility] in [place], [place]; however, due to insurance reasons the [facility]. In reviewing notes from her prior physician from 06/20/2021 she had 3 focal nodules with largest measuring 2 x 1.8 cm 6 o'clock position, 2 additional lesions measuring 1 x 0.7 cm and another 0.9 x 0.6 cm. BI-RADS spot compression view right breast showed persistent 2.4 x 2.2 cm partially obscured round mass with pleomorphic calcifications. She did have breast MRI prior to initiation of neoadjuvant therapy which I do not have records from this from [facility] in [place]. I am requesting this to evaluate her baseline study since transfer of care from Dr. Phoenix to myself. She also had reported normal baseline echo in May 2021. She commenced neoadjuvant Carboplatin/Paclitaxel/Pembrolizumab therapy on 07/22/2021; Our treatment plan will be pembrolizumab 200 mg IV every 3 weeks with weekly paclitaxel 80 mg/m? IV and q. 21 days carboplatin AUC 5 for 4 cycles. This treatment regimen is based on KEYNOTE 522 trial and is now standard of careand NCCN guidelines. After review of her MRI from outside hospital, I will repeat her breast MRI for new baseline here. If stable to responding disease wemay continue prior plan for followed by pembrolizumab every 3 weeks with Adriamycin and cyclophosphamide for 4 cycles. The patient would like reassessment by general surgery for surgical plan and we will determine whether she proceeds with mastectomy or lumpectomy based on his results. Baseline genetic testing returned negative from prior physicians at [facility]. BRCA testing negative Follow-up September is cycle 4 -day 1. Tolerance is overall good-- Proceed with cycle 4 with breast MRI prior to 2-week follow-up in comparison to baseline MRI. This will be useful in surgical planning. I am discussing her case with tertiary breast oncology Dr. Vinh Bucio to see if he concurs withthis plan. If decision is made to commence AC Pembroluzumab we will repeat her echocardiogram prior to this and obtain her prior echo results. --Physical exam may be showing some evidence of response with the lump in the right breast being not as conspicuous as compared to prior notes although it is unclear to evaluate by exam, therefore MRI is ordered. --My plan at this time will be to press on and continue our chemotherapy per plan. I will see her in 2 weeks. 10/08/2021: Patient is here for her last paclitaxel prior to changing agents for neoadjuvant therapy to Adriamycin/cyclophosphamide/pembrolizumab. She is due for follow-up echocardiogram prior to starting anthracycline. She had discussedpotentially changing surgeons to Dr. Reza and I contacted him regarding breast MRI for surgical planning. We will review her prior MRI from [facility] in May 2021 in comparison to most recent MRI (report pending). Of note outside MRI noted no biopsy clips in place and we may need to rebiopsy to place clips at sites of residual tumor masses prior to continuing further neoadjuvant therapy. We will coordinate a time for him to meet with the patientto discuss surgical options of lumpectomy versus mastectomy. Patient will commence her Adriamycin/cyclophosphamide/Pembrolizumab at 10/15/2021 and I will follow-up with her in early October for toxicity visit for tolerance. 10/22/2021: Change to Adriamycin/cyclophosphamide/Pembrolizumab with neutropenia noted but no fever. Echocardiogram at baseline was 55 to 60%. Other than nausea no other significant toxicities. MRI was reviewed and [facility] tumor board with Dr. Reza and he will be arranging evaluation for surgical options. Consultation was placed to him today. We willdose reduce Adriamycin and cyclophosphamide both by 20% due to her neutropenia. Otherwise may proceed with chemotherapy in 2 weeks he can follow-up in 3 weeks either with myself or nurse practitioner for toxicity review. 11/12/2021: Here for cycle 2-day 8 toxicity visit on now 20% dose reduced Adriamycin/cyclophosphamide/Pembrolizumab due to neutropenia without fever last cycle. Persistent fatigue and nausea without mouth ulcers. No neutropenia thiscycle. The patient met with Dr. Reza and will follow-up with her at end oftherapy. She is still not decided whether she would like to proceed with lumpectomy or mastectomy plus minus reconstruction. We will coordinate 3-week follow-up toxicity visit with nurse practitioner cycle 3-day 8--no dose reduction since she does not have any significant cytopenias. 12/03/2021: Here for cycle 3-day 8 toxicity visit on 20% dose reduced Adriamycin/cyclophosphamide/Pembrolizumab with no new toxicities. No cytopeniasare noted. I am coordinating plastic surgery consultation with Dr. Berny Simons prior to evaluation by Dr. Reza to determine surgical approach. She will have 1 more dose of chemotherapy due on 12/17/2021 and will follow-up with nurse practitioner 1 week following her chemo. She will require end of therapy echocardiogram in late December. I will see her in follow-up 2 weeks after her definitive surgery to review pathology and further plan for therapy/surveillance. Moderate complexity visit over 35 minutes for symptom review on chemotherapy, coordination with Dr. Simons and Dr. Reza of breast surgery for surgical plan. 12/24/2021: She is here for toxicity check after completion of 4 cycles of AC+Pembro. She has some lingering fatigue and nausea, but otherwise ok. Labs reviewed and ok. She will schedule follow-up with Dr. Reza to discuss surgical intervention and schedule surgery. We will plan for follow-up 2 weeks postop to discuss final pathology and next steps. She will call us with the scheduled surgery date. Her end of treatment ECHO is scheduled for 01/07/2022. 03/12/2022: Patient returns after right lumpectomy/breast reconstruction/mastopexy 02/17/2022 well-healed without complaints. 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 5 lymph nodes were negative for carcinoma. We discussed referral to radiation oncology after she has well-healed, then she may resume pembrolizumab 200 mg IV every 3 weeks for 9 further cycles as per KEYNOTE 522. No hormonal therapy indicated due to triple negative breast cancer. I will see her in follow-up with immunotherapy labs adjuvant cycle 2-day 1 Pembroluzumab orsooner if new issues arise. High complexity visit over 45 minutes to review outside operative notes, pathology, and to discuss adjuvant radiation and immunotherapy. (2) Lumbar back pain with radiculopathy affecting left lower extremity Lumbar MRI results previously reviewed--degenerative disc disease but no evidence of metastatic cancer. Previously referred to Dr. Jameson Castle for his recommendations. (3) Encounter for antineoplastic immunotherapy Good partial pathologic response with only a small focus of residual DCIS, ER 5%, LA 0%. Referring for adjuvant radiation then we will resume pembrolizumab 200 mg IV every 3 weeks for 9 cycles. - Chemo Plan Chemo Plan (Dose, Rate, Freq): Neoadjuvant Carboplatin/Paclitaxel/Pembrolizumab therapy on 07/22/2021; Our treatment plan will be pembrolizumab 200 mg IV every 3 weeks with weekly paclitaxel 80 mg/m? IV and q. 21 days carboplatin AUC 5 for 4 cycles. This treatment regimen is based on KEYNOTE 522 trial and is now standard of care and NCCN guidelines. --After review of her MRI from outside hospital, I repeated her breast MRI for new baseline here. 10/17/2021: Cycle 1 day 1 pembrolizumab every 3 weeks with Adriamycin and cyclophosphamide for 4 cycles. 20% dose reduction Adriamycin andcyclophosphamide for neutropenia with cycle 2. Number of Cycles: 8 Goal of Treatment: Curative - Time with Patient Time Spent with Patient (Follow Up Visit): 45 minutes or more - High complexity for review of outside records operative note, pathology, discussion of adjuvant radiation and immunotherapy. Good pathologic response with DCIS only on pathology Coordination of Care & Counseling Time: Greater than 50% of time spent with patient was for coordination of care (as documented) and [id number] counseling of patient and/or family. Dictated By: Kallie Chang MD DD/ [id number] Signed By: <Electronically signed by MD Kallie Chang> 03/12/22 1636 [facility] Work Phone: 1(731) 798-424508-02-2022 Hospital Discharge instructions* Discharge Instructions* Nader Alicia MD - 02/17/2022 9:51 AM EDT Images from the original note were not included. Surgery Patient Discharge Instructions Discharge Date: 02/17/2022 Discharged To: Home RESUME ACTIVITY: WOUND CARE: See Dr. Saunders instructions for management of wound dressing Surgical glue to remain in place. BATHING: Ok to shower in 24 hrs. DRIVING: No driving for while on pain medication RETURN TO WORK: No overhead lifting WALKING: Yes LIFTING: Avoid lifting objects heavier than 10 lbs for 2 weeks. DIET: Ok to resume regular diet. SPECIAL INSTRUCTIONS: After you leave the hospital, call your doctor if any of the following occurs: Pain or symptoms that worsen Other new symptoms Signs of infection, including fever and chills Nausea and/or vomiting that you can't control with the medications you were given Pain that you can't control with the medications you've been given Excessive tenderness or swelling Changes in bowel or sexual function Dizziness or lightheadedness Rash or hives Watch for signs of infection: Excessive warmth or bright redness around your incisions Leakage of bloody or cloudy fluid from you incisions Fever over 100.5 POST-OPERATIVE INSTRUCTIONS FOR SUTURE LINECARE Incisions and suture lines are a necessary part of surgery. These lines take many months to fully heal. Part of the healing process requires proper cleansing and care. In addition, there are treatments that can help resulting scars to be flatter, finer, and less noticeable. There is no guarantee towhat a scar will look like once it has fully healed, however the following instructions are important to a good outcome. Do not smoke. You have been advised to quit before surgery. Do not start after surgery. Smoking decreases the oxygen in your blood and greatly impacts your ability to heal. Do not smoke until your incisions have fully healed. You may shower 24 hours post your procedure unless instructed other giron. You may remove the outer dressings to shower. If you have Steri-Strips in place keep them intact. If you have no visible sutures but only tape (steri-strips) over the incision, you do not need to do anything until the strips fall off. You may use antibiotic ointment on the area after the steri-strips have fallen off. If you have sutures, they will remain in the skin anywhere from 7-21 days, or longer depending on the area and your healing. Please call for an appointment if one has not been scheduled. You may notice a slight drainage of either blood or a clear type of liquid from the area, which is normal. If the drainage has an odor to it call the office. DIET: Resume your previous diet. ACTIVITY: Avoid straining, strenuous exercise, or lifting over five pounds for 14 days, unless instructed otherwise. Depending on they type of surgery you have had this may be as long as SIX WEEKS. (Do not bend over for the first 24 hours after your surgery). Direct trauma and physical stress may result in a separation of the suture line or wider scars. MEDICATIONS: If you have been given an antibiotic, take until finished. Please take pain medication as prescribed, follow directions CAREFULLY. Note: As Needed Do not drive or operate machinery while on pain medications. WORK/SCHOOL: This will be decided at the time of surgery or your follow up visit. Do not swim in any mata, ocean, swimming pool or other water for at least 5 days or other giron instructed. INFORMATION: Pain and swelling in the surgical area is normal, and will reduce over the several weeks after surgery, at times it may last several months after surgery. Avoid sun medina or over exposing your skin to the sun for two weeks prior to surgery, and one year after your surgery. You must wear water proof sun block with at least an SPF of 30 at all times in the surgically treated area including the suture line. This is imperative at least 30 minutes before any prolonged sun exposure is expected. Protective clothing and wide brimmed hat for facial surgeries is highly recommended. New scars are sensitive to sunlight and if unprotected will result in permanent changes in scar color to darker, clinic mgr or discolored. At times you may have a modular, bumpy,raised or thickened appearance to the scar. This may be hypertrophic or keloid. Please contact our o ffice as soon as possible. Call the office if any of the following occur: Excessive bleeding from the incision Excessive swelling Excessive redness Extreme throbbing Fever over 100.4 F. Foul smelling drainage Our office numbers are as follows: [place] office: documented in this encounterBON ABRAZO CENTRAL [email or web address] [facility] Phone: [phone]) 766-105007-14-2022 Miscellaneous Notes* Telephone Encounter - Nat Ricketts RN - 01/29/2022 5:25 PM EDT Noticed that patient's appointment for 01/[address] Lea was cancelled Called and lmom with my name and number for her to call back if this was cancelled accidentally somehow and we would be happy to put her back on the schedule documented in this encounterAcmc Healthcare System07-07-2022 Miscellaneous Notes* Telephone Encounter - Nat Ricketts RN - 01/22/2022 3:42 PM EDT Spoke with patient - she is aware that we will call her 01/23 with the time to arrive for imaging prior to appt We still need her slides to be reviewed as stated below * Telephone Encounter - Sarah Lima - 01/22/2022 3:13 PM EDT Patient called back, she left detailed message on voicemail to return her call at [phone]. Thank you. * Telephone Encounter - Nat Ricketts RN - 01/22/2022 2:06 PM EDT Left message on answering machine with my name and number and to call back to offer appointment Tuesday 01/30 at 1:[address] Lea. She will need imaging prior to that appt and we will call with arrival time for that 01/23 * Telephone Encounter - Xiomara Lea MD - 01/22/2022 12:46 PM EDT Imaging reports rec'd reviewed: [facility] 04/2021 - R screening abnl 2.4 cm mass with satellites? Bx in May, looks like no clip placed? Rest of imaging doesn't have location IDed MRI 06/11/21 - 2.8 cm mass at 6:00 posterior, two adjacent satellite lesions (7 mm and 1 cm) Clip placed 06/19/21 CT CAP 07/16/21 - 8mm and 7mm liver lesions, uncertain etiology Hip XRay 08/18/21 neg MRI L spine 08/19/21 neg for malignancy Breast MRI 10/13/21 decrease in size of masses I have no images, no notes about treatment to date. I see a teaching note 06/23/21 at [facility] but limited documentation since then as to her treatments, etc. I need path to be reviewed, pt will likely need updated imaging, can start with bilat diagnostic mammogram, perhaps can see me with same day imaging at ? Perhaps combine slots for her at 2:00 Tuesday 01/30? Thanks, Xiomara Lea MD * Telephone Encounter - Jade Marie - 01/22/2022 11:18 AM EDT Patient calling checking on status of records and consult Please advise * Telephone Encounter - Marybel Watson - 01/22/2022 9:51 AM EDT Patient is calling again in reference to the below. Patient states she has still not been contacted about the status of her outside records being reviewed or scheduling an appointment. Patient is asking for a call back to discuss and schedule. * Telephone Encounter - Lucinda Alvarez Ma - 01/16/2022 3:53 PM EDT Noted I will check when in [place] on Wednesday. * Telephone Encounter - Alvin Alexis - 01/16/2022 1:23 PM EDT Pt calling regarding faxed info she had sent to [facility]. Pt asking if fax was received by office or if she needs to do anything else. Pt requesting call back to discuss. * Telephone Encounter - Lucinda Alvarez Ma - 01/16/2022 9:13 AM EDT I called pt to discuss where all outside workup has been, she has had studies at both [facility] and [place]. I was able to have patient get a release and will also fax to [facility] what she hasthus far. Our office will continue to work on getting all outside records to be submitted for a second review. * Telephone Encounter - Nat Ricketts RN - 01/15/2022 4:25 PM EDT Patient was seen by Dr Russell and has finished her chemotherapy treatments and needs a surgical consult SHANNAN She had outside studies done so we will need all outside imaging and reports and path slides and reports SHANNAN documented in this encounterAcmc Healthcare System06-30-2022 NoteHNO ID: [id number] Author: Yasemin Turnergess Service: ? Author Type: ? Type: Progress Notes Filed: 01/15/2022 4:35 PM Note Text: DATE OF PHOTOS: 01/15/2022 Body Part: Breasts and Abdomen Yasemin Bernal January 15, 2022 4:35 [facility]06-29-2022 NoteHNO ID: [id number] Author: Fahad Russell MD Service: ? Author Type: Physician Type: Progress Notes Filed: 01/27/2022 4:45 PM Note Text: BREAST RECONSTRUCTION EVALUATION CC: Tenisha Hancock is a 46 year old female that presents today for breast reconstruction evaluation. 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 Dr. Reza in [place] is her breast surgeon. She saw a plastic surgeon in [place] but he was not a microsurgeon and she is interested in a JOSEP. She is currently leaning towards a double mastectomy but is not definite. Prior breast procedures: Breast biopsy Prior Abdominal Surgery: Gallbladder removed Hx Radiation Therapy: No Hx Chemotherapy: Yes - finished 12/17/21 PRIOR MAMMOGRAM: Yes, date: October 07, 2021 Bra Size: C Desired Bra Size: around the same size OB HISTORY: Para: 1 : Patient did breastfeed Plan for future pregnancies: No HISTORY OF BREAST DISEASE: No patient history of previous breast disease FAMILY HISTORY OF BREAST CANCER: No family history of breast cancer HISTORY OF BLEEDING/CLOTTING: No FAMILY HISTORY OF BLEEDING OR CLOTTING: No REVIEW OF SYSTEMS PAIN ASSESSMENT: Negative for pain, history of chronic pain, or current treatment for a chronic pain condition. GENERAL: No weight loss, malaise or fevers NECK: Negative for lumps, goiter, pain and significant neck swelling RESPIRATORY: Negative for cough, hemoptysis, wheezing, COPD, dyspnea or shortness of breath CARDIOVASCULAR: Negative for chest pain, leg swelling, hypertension, CHF or palpitations MUSCULOSKELETAL: Negative for joint pain or swelling, back pain or muscle pain SKIN: Negative for lesions, rash, and itching ENDOCRINE: Negative for cold or heat intolerance, polyuria, polydipsia and goiter NEURO: No history of headaches, syncope, paralysis, seizures or tremors PMH: No past medical history on file. PSH: No past surgical history on file. MEDS: No current outpatient medications on file. No current facility-administered medications for this visit. SMOKING HISTORY: Ex-smoker - quit 25 years ago ETOH USE: None USE OF VITAMIN E, HERBS, ASA, NSAIDS: No MARITAL STATUS: Single EMPLOYMENT: Patient is employed at [employer] [employer] EXAM: There is no height or weight on file to calculate BMI. Back Exam: no scar; latissimus dorsi muscle function appears to be intact Abdominal Exam: soft, non-tender, obese and protuberant, BS+, non-distended, lap samreen Breast Exam: Asymmetry: Minimal Axillary Lymphadenopathy: no Scars: None Ptosis: R: Grade III L: Grade III Medially displaced nipple: None Assessment: Patient is a candidate for tissue guest relations agent Photos taken today Plan: An extensive discussion was undertaken with the patient detailing the risks, benefits and alternatives to tissue guest relations agent. Tenisha Hancock was given supplemental information on breast reconstruction. I have advised her to contact me at any time with further questions she may have regarding breast reconstruction. This plan will be coordinated with Dr. Lea This visit lasted for more than 30 minutes and greater than 50% of the visit was involved in the discussion of the options for treatment. The patient was seen with Yeimi Ogden RN who performed the Review of Systems and Past/Family/Social History. I have reviewed these and agree with her findings. The History and Physical as taken by me are documented above and/or dictated below. I agree with the Chief Complaint, ROS, and Past Histories independently gathered by the clinical office support specialist and the remaining scribed note accurately describes my personal service to the patient. patient's condition reviewed and examined ? plan and options of management, complexity, risk benefit limitation potential complication, success /failure of management, expected result and recovery discussed ? I spent 30 minutes in the visit, with more than 50% of the total bega-wf-dwks time of the visit in counseling / coordination of care. ? [facility] History of Present illness Narrative* Fahad Russell MD - 01/14/2022 4:48 PM EDT BREAST RECONSTRUCTION EVALUATION CC: Tenisha Hancock is a 46 year old female that presents today for breast reconstruction evaluation. 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 in [place] is her breast surgeon. She saw a plastic surgeon in [place] but he was not amicrosurgeon and she is interested in a JOSEP. She is currently leaning towards a double mastectomy but is not definite. Prior breast procedures: Breast biopsy Prior Abdominal Surgery: Gallbladder removed Hx Radiation Therapy: No Hx Chemotherapy: Yes - finished 12/17/21 PRIOR MAMMOGRAM: Yes, date: October 07, 2021 Bra Size: C Desired Bra Size: around the same size OB HISTORY: Para: 1 : Patient did breastfeed Plan for future pregnancies: No HISTORY OF BREAST DISEASE: No patient history of previous breast disease FAMILY HISTORY OF BREAST CANCER: No family history of breast cancer HISTORY OF BLEEDING/CLOTTING: No FAMILY HISTORY OF BLEEDING OR CLOTTING: No REVIEW OF SYSTEMS PAIN ASSESSMENT: Negative for pain, history of chronic pain, or current treatment for a chronic pain condition. GENERAL: No weight loss, malaise or fevers NECK: Negative for lumps, goiter, pain and significant neck swelling RESPIRATORY: Negative for cough, hemoptysis, wheezing, COPD, dyspnea or shortness of breath CARDIOVASCULAR: Negative for chest pain, leg swelling, hypertension, CHF or palpitations MUSCULOSKELETAL: Negative for joint pain or swelling, back pain or muscle pain SKIN: Negative for lesions, rash, and itching ENDOCRINE: Negative for cold or heat intolerance, polyuria, polydipsia and goiter NEURO: No history of headaches, syncope, paralysis, seizures or tremors PMH: No past medical history on file. PSH: No past surgical history on file. MEDS: No current outpatient medications on file. No current facility-administered medications for this visit. 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 Back Exam: no scar; latissimus dorsi muscle function appears to be intact Abdominal Exam: soft, non-tender, obese and protuberant, BS+, non-distended, lap samreen Breast Exam: Asymmetry: Minimal Axillary Lymphadenopathy: no Scars: None Ptosis: R: Grade III L: Grade III Medially displaced nipple: None Assessment: Patient is a candidate for tissue guest relations agent Photos taken today Plan: An extensive discussion was undertaken with the patient detailing the risks, benefits and alternatives to tissue guest relations agent. Tenisha Hancock was given supplemental information on breast reconstruction. I have advised her to contact me at any time with further questions she may have regarding breast reconstruction. This plan will be coordinated with Dr. Lea This visit lasted for more than 30 minutes and greater than 50% of the visit was involved in the discussion of the options for treatment. The patient was seen with Yeimi Ogden RN who performed the Review of Systems and Past/Family/Social History. I have reviewed these and agree with her findings. The History and Physical as taken by me are documented above and/or dictated below. I agree with the Chief Complaint, ROS, and Past Histories independently gathered by the clinical office support specialist and the remaining scribed note accurately describes my personal service to the patient. patient's condition reviewed and examined plan and options of management, complexity, risk benefit limitation potential complication, success/failure of management, expected result and recovery discussed I spent 30 minutes in the visit, with more than 50% of the total sppt-as-qcac time of the visit in counseling / coordination of care. Fahad Russell MD documented in [facility] Progress note Author [facility] December 24, 2021 8:46pm Note Date/Time December 24, 2021 3:07p kaitlin [facility] [place] [address] Hem/Onc Follow Up Note - OP Signed Patient: Tenisha Hancock MR#: [id number] : 1975 Acct:[id number] Age/Sex: 46 / F Type: REG RCR Copies to: MD Uriel Wilson DO Kim E Knight, MD~ Subjective Date/Time of Service: Date of Service: 12/24/2021 Time of Service: 15:07 Chief Complaint: Patient is here for a 3 week follow up [facility] labs for review. Has multiple questions today. HPI: 12/24/2021: Rachel presents after completing her 4th and last cycle of Adriamycin, Cytoxan and Pembrolizumab. She notes some lingering fatigue and nausea without vomiting. She also notes a few days of diarrhea with some improvement today. Otherwise she does not admit to any other complaints. Her labs are reviewed and stable overall, no significant cytopenias. She is unsure of her next steps and has a lot of questions related to surgical options as wellas if she will need radiation therapy. She met with Dr. Simons and has an appointment scheduled at [facility] to discuss josep flap surgery as well. We have advised her to follow-up with Dr. Reza to review her options and answer herquestions related to timing with the surgeon and plastic surgeon. We reviewed lumpectomy vs. mastectomy and the role radiation plays as well. We will plan to follow-up 2 weeks postop, and she will call us with her surgery date once decisions have been made. 12/03/2021: Rachel presents for cycle 3, week 2 toxicity check for Adriamycin/Cytoxan/Pembrolizumab. She continues to note fatigue and nausea but has not had any further neutropenia since dose reduction. We are coordinating evaluation by Dr. Simons with plastic surgery as well as Dr. Reza for planned end of therapy with last cycle due on December 17, 2021. The patient is undecided whether she would like to proceed with breast conservation option versus immediate reconstruction with mastectomy. Dr. Simons was contacted to arrange initial evaluation and she may see nurse practitioner for follow-up 1 week after her last cycle of Adriamycin/Cytoxan/Pembrolizumab. I will see her about 2 weeks postoperatively from her definitive therapy to review pathology and any further therapy options at that point. 11/12/2021: Rachel is here for cycle 2, week 2 toxicity check for Adriamycin/Cytoxan/Pembrolizumab. She was given 20% dose reduction Adriamycin and Cytoxan due to neutropenia last cycle and notes that she felt even more fatigued this cycle than prior cycle. She did not have any oral mucositis and met with Dr. Reza but he was unable to review her prior films. She did notrequire any further interventions since surgical clip was placed in the past. She still is undecided whether she will proceed with lumpectomy or mastectomy. I will refer her back for surgical evaluation after completion of her 4 cycles of Adriamycin/Cytoxan/Pembrolizumab. Currently she does not have any cytopeniasnoted recommend proceeding with same dose of therapy. 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 Next follow-up in 3 weeks fortoxicity check or sooner as needed. 10/22/2021: Rachel is here for toxicity check after cycle 1 of Adriamycin/Cytoxan/Pembrolizumab 1 week ago. She notes that she had increased fatigue and persistent nausea and her total white blood cell count is 1200 with ANC 100. No fever, chills, night sweats, or signs or symptoms of infection. Wediscussed dose reduction by 20% due to her neutropenia. Baseline echocardiogramprior to Adriamycin and Cytoxan was 55 to 60%. MRI of the breast was reviewed in comparison to her initial MRI in May 2022 that shows some progression ofher primary breast mass and one of the satellite lesions is no longer identified. Patient does note that after her breast MRI she did undergo placement of clip at the site of her prior lesions. She wanted to transfer her care for surgical evaluation by Dr. Reza and I will place consult for him to evaluate her to plan surgery following 3 more cycles of Adriamycin/Cytoxan/Pembroluzumab. Otherwise she will follow-up for next cycle of chemotherapy in 2 weeks and toxicity visit the following week after 20% dose reduction of both Adriamycin and Cytoxan. 10/08/2021: Rachel is here for followup after completing 4 cycles of neoadjuvant carboplatin AUC 5 with weekly paclitaxel 80 mg/m? and every 3-week Pembroluzumab 200 mg. She is on her last dose of 12-week paclitaxel today. We ordered an MRI on her and reviewed the images with her in clinic today but finalreport is still pending radiology read. I reviewed her case with breast medical oncologist Dr. Vinh Bucio who agreed that patient should likely continue on Adriamycin/Cytoxan/Pembrolizumab every 3 weeks for 4 more cycles as previously written. She had a baseline echocardiogram in May but we will repeat this prior to starting her next round of chemo in 1 week. Her next follow-up for toxicity visit will be cycle 1 week 2 and we will coordinate surgery evaluation based on her breast MRI to review her response to initial therapy. Symptoms are otherwise stable on weekly paclitaxel with minimal neuropathy. I contacted radiology and breast MRI should be read early next week. 09/24/2021: Rachel is a 46-year-old lady who is currently cycle 4-day 1 for neoadjuvant carboplatin AUC 5 (dose adjusted for adjusted body weight), weekly paclitaxel 80 mg/m?, and every 3-week Pembrolizumab 200 mg. She has tolerated chemotherapy reasonably well with nausea and IBS symptoms but she has not had any significant neutropenia. She has not noticed any clinical difference in herbreast exam, although in comparison to prior notes there is a 9 discrete area onexam 3 to 4 cm of thickening in the right 10:00 to 11:00 area. There is no skindimpling or nipple discharge or retraction. I do not feel any palpable masses in the axilla. Although the patient previously saw Dr. Red at diagnosis, she is uncertain of the plan for surgery. Since she had negative genetic testing it is unlikely that she will have bilateral mastectomy and reconstruction, however we can coordinate her evaluation by surgery locally if she wishes. --Otherwise we decided to proceed with her fourth cycle of carboplatin/paclitaxel/Pembrolizumab today. She had a baseline MRI and I will schedule repeat MRI after her fourth cycle and reevaluate her response to disease. Originally Dr. Phoenix had consented her to proceed with Adriamycin and Cytoxan with Pembrolizumab for 4 more cycles following her carboplatin/paclitaxel/Pembrolizumab. I will review this with tertiary breast medical oncologist Dr. Vinh Bucio to determine whether she should proceed with further therapy or be evaluated for surgery. Patient will follow up with me in approximately 2 weeks after her MRI to review subsequent plan of therapy. Previous notes from Dr. Phoenix, last seen 08/18/2021: Tenisha presents August 20, 2021 for cycle 2, day 7 of neoadjuvant chemotherapy for triple negative breast cancer. She does have some progressive alopecia. No nausea vomiting diarrhea. The breast mass in the right breast is not as evidence with deep palpation. Youcan still feel it but it appears to be smaller somewhat. In the right axilla there is a very small pinpoint hard nodule fairly superficial. Her tolerance to therapy to date has been overall good. BRCA testing was done through [employer] and is negative. She does have left foot numbness. MRI was done of the lumbar spine and does show multiple areas of degenerative disc disease. The patient has a known history of problem both in her lumbar spine and what appears in her cervical spine. I will refer her to Dr. Castel for consideration of kyphoplasty or other. I willdefer to his impression and recommendations. MOHEGAN: This is a 46 year old female, recently diagnosed with triple negative right breast cancer; currently undergoing neoadjuvant pembrolizumab, carboplatin AUC 4and weekly paclitaxel x6 cycles, which commenced: 07/22/2021. This is a 46-year-old female who works at [employer] with triple negative breast cancer, referred for neoadjuvant chemotherapy. Mammogramon on April 22, 2021 showed 3 new focal masses with the largest measuring 2 cm in size in the right breast. 2 additional lesions measuring 1 cm and a second 0.9 cm were also seen. The patient was referred for biopsy. Needle biopsy showed triple negative breast cancer, ER negative, LA negative, and H ER 2 -. The patient was referred to Dr. Ismael Red for Mmkxdh-b-Fzwr which she has had placed. [facility]. Because of insurance reasons, she will be getting her treatment here at [facility]. She has had echocardiography as well. According the patient an MRI was obtained prior to neoadjuvant therapy while she was at [facility] we are requesting this prior study. She does have a palpable breast mass. It is in the lower mid quadrant of the right breast. Mammogram on on April 22, 2021 showed 3 new focal masses with the largest measuring 2 cm in size in the right breast. 2 additional lesions measuring 1 cmand a second 0.9 cm were also seen. The patient was referred for biopsy. Needle biopsy showed triple negative breast cancer, ER negative, LA negative, and HER 2 -. The patient was referred to Dr. Ismael Red for Ktltdr-f-Bkod which she has had placed. She [facility]. Because of insurance reasons, she will be getting her treatment here at [facility]. She has had echocardiography as well. PET/CT scan was denied by insurance and she underwent CT scan of the chest/abdomen/pelvis on 07/16/2021 which showed no obvious evidence of distant metastatic disease. As noted above, Cycle 1, Day 1 (Carboplatin/Paclitaxel/Pembrolizumab) commenced 07/22/2021 and this was well tolerated. The patient went home that evening and began to feel flushed, general malaise, etc. She subsequently tested positive for COVID - 19 per PCR the following day, 07/23/2021. Her symptoms were quite mild; however, next cycle of chemotherapy was pushed out 2 days and she is here today for Cycle 1, Day 8 of single agent Paclitaxel. She does have a palpable breast mass in the lower mid quadrant of the right breast; she was concerned about a lump under her right axilla but upon exam wehad trouble locating a discrete nodule or lymph node. Otherwise, her only complaint is continued low back pain with radiculopathy involving the left groin/hip and left lower extremity with associated numbness in left foot. She has known neuroma of the left foot and was in the process of being worked up by pain management (Dr. Monique) for lumbar pain; radiculopathy. - Summary of Therapies Summary of Therapies: Neoadjuvant Carboplatin AUC 5-day 1, Pembrolizumab 200 mg day 1, Paclitaxel 80 mg meter squared weekly each 21-day cycle for planned 4 cycles: started Cycle 1,Day 1: 07/22/2021, cycle 4 09/24/2021 --Plan 10/15/2021: Start Pembrolizumab 200 mg day 1, doxorubicin 60 mg/m? day 1,and cyclophosphamide 600 mg/m? day 1 every 21 days x 4 cycles followed by adjuvant Pembrolizumab 200 mg IV every 21 days x 9 cycles --Original breast MRI obtained from [facility] from May 2021, follow-up breast MRI performed 10/07/2021 for initial response to therapy. Patient requested an opinion from Dr. Reza for planning breast surgery options based on MRI (she does note that prior biopsy clips were placed after her original MRI for further neoadjuvant therapy). -- 20% dose reduction doxorubicin and cyclophosphamide cycle 2 for neutropenia. Last dose of Adriamycin, cyclophosphamide, Pembroluzumab due 12/17/2021. End of therapy echo may be ordered preoperatively in late December. ROS Details: All systems reviewed & no additional complaints except as documented PMFSH - Medical History Medical History: Medical History (Last Reviewed 12/03/21 @ 14:14 by Kallie Chang MD) Arthritis COVID-19 Headache High blood cholesterol - Surgical History Surgical History: Surgical History (Last Reviewed 12/03/21 @ 14:14 by Kallie Chang MD) History of breast biopsy right 05/26/2021 History of carpal tunnel release History of cholecystectomy History of foot surgery right - Family History Family History: Family History (Last Reviewed 12/03/21 @ 14:14 by Kallie Chang MD) Brother Lung cancer Father Cancer Mother COPD (chronic obstructive pulmonary disease) - Social History Smoking Status: Former smoker Tobacco Type: cigarettes Substance Use Type: None Home Medications & Allergies Allergies No Known Allergies Allergy (Verified 12/03/21 13:51) Home Medications okrlszs-mlftluzxptdfl-vpruvlnk 250 mg-250 mg-65 mg tablet (Excedrin Migraine) 1 tab PO Q4-6H PRN 07/08/21 [History Confirmed 12/24/21] citalopram 20 mg tablet 20 mg PO DAILY 07/08/21 [History Confirmed 12/24/21] diclofenac sodium 50 mg tablet,delayed release 50 mg PO TID 07/08/21 [History Confirmed 12/24/21] omeprazole 20 mg capsule,delayed release 20 mg PO DAILY 07/08/21 [History Confirmed 12/24/21] ondansetron HCl 8 mg tablet 8 mg PO Q8H PRN #30 tab 07/08/21 [Rx Confirmed 12/24/21] prochlorperazine maleate 10 mg tablet (Compazine) 10 mg PO Q6H PRN #30 tab 07/08/21 [Rx Confirmed 12/24/21] lorazepam 1 mg tablet 1 mg PO Q6H PRN 14 Days #56 tab 09/04/21 [Rx Confirmed 12/24/21] dexamethasone 4 mg tablet 8 mg PO BID #6 tab 09/17/21 [Rx Confirmed 12/24/21] Objective - Height/Weight Height/Weight: Height 5 ft 3 in Weight 88.859 kg BSA for Today's Weight 2.01 - Vital Signs Vital Signs: 12/24/21 13:59 Temperature 97.7 F Pulse Rate [Left Brachial] 76 Respiratory Rate 18 Blood Pressure [Left Arm] 118/82 02 Sat by Pulse Oximetry 100 - Pain Left Shoulder Pain Intensity: 5 Lower Back Pain Intensity: 4 Generalized Left Pain Intensity: 4 Physical Exam Narrative: GENERAL: Alert, pleasant, no acute distress. HEENT: Oral mucosa is pink/moist; no lesions or exudate. Neck supple without adenopathy or thyromegaly. BREAST: Deferred HEART: RRR; no murmurs/rubs or gallops; S1 and S2 normal. No edema. LUNGS: CTA bilaterally; no wheezes or crackles. Normal respiratory effort. ABDOMEN: Soft, non tender. BS present x 4 quadrants. No HSM. INTEGUMENTARY: Warm, dry; no skin rashes. LYMPHATICS: No lymphadenopathy appreciated. NEUROLOGICAL: Grossly intact, patient is alert and oriented x 3; stable gait. Results - Labs Labs: Diagram of Most Recent CBC and CMP 12/24/21 13:31 12/24/21 13:31 Labs - Last 7 Days 12/24/21 13:31: PHA Creatinine Clear 115.02, Sodium 134 L, Potassium 4.0, Chloride 98, Carbon Dioxide 23.2, BUN 7 L, Creatinine 0.66, Est GFR ( Amer) > 60, Est GFR (Non-Af Amer) > 60, Glucose 119 H, Calcium 9.6, Total Bilirubin 0.5, AST 17, ALT 20, Alkaline Phosphatase 112 H, Total Protein 6.8, Albumin 3.8, Globulin 3.0, Albumin/Globulin Ratio 1.3 12/24/21 13:31: Corrected WBC 5.8, Uncorrected WBC Count 5.8, RBC 2.98 L, Hgb 10.3 L, Hct 30.4 L, MCV 102.2 H, MCH 34.6 H, MCHC 33.9, RDW 13.9, Plt Count 207,MPV 8.0, Nucleated RBC % (auto) 0.0 Assessment and Plan - TNM Staging Staging: Stage II right breast invasive ductal carcinoma grade 3, estrogen receptor 0%, progesterone receptor 0%, HER-2 negative by IHC Clinical stage II with baseline tumor at least 2 or 2.5 cm (In comparison with prior 05/2021 MRI there was interval decrease of dominant mass to 1.5 cm in greatest dimension)--we will continue neoadjuvant therapy as previously written with AC plus pembrolizumab (1) Breast cancer Qualifiers: Breast location: overlapping sites of breast Patient sex: female Laterality: right Patient is a 46-year-old female presenting with 3 discernible masses by mammography (04/22/2021) with needle biopsy confirming triple negative breast cancer. She was initially see in consultation by Dr. Smith at [facility] in [place], [place]; however, due to insurance reasons the [facility]. In reviewing notes from her prior physician from 06/20/2021 she had 3 focal nodules with largest measuring 2 x 1.8 cm 6 o'clock position, 2 additional lesions measuring 1 x 0.7 cm and another 0.9 x 0.6 cm. BI-RADS spot compression view right breast showed persistent 2.4 x 2.2 cm partially obscured round mass with pleomorphic calcifications. She did have breast MRI prior to initiation of neoadjuvant therapy which I do not have records from this from [facility] in [place]. I am requesting this to evaluate her baseline study since transfer of care from Dr. Phoenix to myself. She also had reported normal baseline echo in May 2021. She commenced neoadjuvant Carboplatin/Paclitaxel/Pembrolizumab therapy on 07/22/2021; Our treatment plan will be pembrolizumab 200 mg IV every 3 weeks with weekly paclitaxel 80 mg/m? IV and q. 21 days carboplatin AUC 5 for 4 cycles. This treatment regimen is based on KEYNOTE 522 trial and is now standard of careand NCCN guidelines. After review of her MRI from outside hospital, I will repeat her breast MRI for new baseline here. If stable to responding disease wemay continue prior plan for followed by pembrolizumab every 3 weeks with Adriamycin and cyclophosphamide for 4 cycles. The patient would like reassessment by general surgery for surgical plan and we will determine whether she proceeds with mastectomy or lumpectomy based on his results. Baseline genetic testing returned negative from prior physicians at [facility]. BRCA testing negative Follow-up September is cycle 4 -day 1. Tolerance is overall good-- Proceed with cycle 4 with breast MRI prior to 2-week follow-up in comparison to baseline MRI. This will be useful in surgical planning. I am discussing her case with tertiary breast oncology Dr. Vinh Bucio to see if he concurs withthis plan. If decision is made to commence AC Pembroluzumab we will repeat her echocardiogram prior to this and obtain her prior echo results. --Physical exam may be showing some evidence of response with the lump in the right breast being not as conspicuous as compared to prior notes although it is unclear to evaluate by exam, therefore MRI is ordered. --My plan at this time will be to press on and continue our chemotherapy per plan. I will see her in 2 weeks. 10/08/2021: Patient is here for her last paclitaxel prior to changing agents for neoadjuvant therapy to Adriamycin/cyclophosphamide/pembrolizumab. She is due for follow-up echocardiogram prior to starting anthracycline. She had discussedpotentially changing surgeons to Dr. Reza and I contacted him regarding breast MRI for surgical planning. We will review her prior MRI from [facility] in May 2021 in comparison to most recent MRI (report pending). Of note outside MRI noted no biopsy clips in place and we may need to rebiopsy to place clips at sites of residual tumor masses prior to continuing further neoadjuvant therapy. We will coordinate a time for him to meet with the patientto discuss surgical options of lumpectomy versus mastectomy. Patient will commence her Adriamycin/cyclophosphamide/Pembrolizumab at 10/15/2021 and I will follow-up with her in early October for toxicity visit for tolerance. 10/22/2021: Change to Adriamycin/cyclophosphamide/Pembrolizumab with neutropenia noted but no fever. Echocardiogram at baseline was 55 to 60%. Other than nausea no other significant toxicities. MRI was reviewed and [facility] tumor board with Dr. Reza and he will be arranging evaluation for surgical options. Consultation was placed to him today. We willdose reduce Adriamycin and cyclophosphamide both by 20% due to her neutropenia. Otherwise may proceed with chemotherapy in 2 weeks he can follow-up in 3 weeks either with myself or nurse practitioner for toxicity review. 11/12/2021: Here for cycle 2-day 8 toxicity visit on now 20% dose reduced Adriamycin/cyclophosphamide/Pembrolizumab due to neutropenia without fever last cycle. Persistent fatigue and nausea without mouth ulcers. No neutropenia thiscycle. The patient met with Dr. Reza and will follow-up with her at end oftherapy. She is still not decided whether she would like to proceed with lumpectomy or mastectomy plus minus reconstruction. We will coordinate 3-week follow-up toxicity visit with nurse practitioner cycle 3-day 8--no dose reduction since she does not have any significant cytopenias. 12/03/2021: Here for cycle 3-day 8 toxicity visit on 20% dose reduced Adriamycin/cyclophosphamide/Pembrolizumab with no new toxicities. No cytopeniasare noted. I am coordinating plastic surgery consultation with Dr. Berny Simons prior to evaluation by Dr. Reza to determine surgical approach. She will have 1 more dose of chemotherapy due on 12/17/2021 and will follow-up with nurse practitioner 1 week following her chemo. She will require end of therapy echocardiogram in late December. I will see her in follow-up 2 weeks after her definitive surgery to review pathology and further plan for therapy/surveillance. Moderate complexity visit over 35 minutes for symptom review on chemotherapy, coordination with Dr. Simons and Dr. Reza of breast surgery for surgical plan. 12/24/2021: She is here for toxicity check after completion of 4 cycles of AC+Pembro. She has some lingering fatigue and nausea, but otherwise ok. Labs reviewed and ok. She will schedule follow-up with Dr. Reza to discuss surgical intervention and schedule surgery. We will plan for follow-up 2 weeks postop to discuss final pathology and next steps. She will call us with the scheduled surgery date. Her end of treatment ECHO is scheduled for 01/07/2022. (2) Lumbar back pain with radiculopathy affecting left lower extremity Lumbar MRI results are reviewed--degenerative disc disease but no evidence of metastatic cancer. Previously referred to Dr. Jameson Castle for his recommendations. (3) Encounter for chemotherapy management Moderate complexity visit for toxicity visit on Adriamycin/cyclophosphamide/Pembroluzumab, review evaluation by Dr. Reza ofgeneral surgery, and discussion of overall plan of care with the patient. -- Last cycle of therapy completed 12/17/2021 and now coordinating surgical planning. - Chemo Plan Chemo Plan (Dose, Rate, Freq): Neoadjuvant Carboplatin/Paclitaxel/Pembrolizumab therapy on 07/22/2021; Our treatment plan will be pembrolizumab 200 mg IV every 3 weeks with weekly paclitaxel 80 mg/m? IV and q. 21 days carboplatin AUC 5 for 4 cycles. This treatment regimen is based on KEYNOTE 522 trial and is now standard of care and NCCN guidelines. --After review of her MRI from outside hospital, I repeated her breast MRI for new baseline here. 10/17/2021: Cycle 1 day 1 pembrolizumab every 3 weeks with Adriamycin and cyclophosphamide for 4 cycles. 20% dose reduction Adriamycin andcyclophosphamide for neutropenia with cycle 2. Number of Cycles: 8 Goal of Treatment: Curative - Time with Patient Time Spent with Patient (Follow Up Visit): 35 minutes Coordination of Care & Counseling Time: Greater than 50% of time spent with patient was for coordination of care (as documented) and [id number] counseling of patient and/or family. Dictated By: Ashlie Arriaga APRN DD/ [id number] Signed By: <Electronically signed by PETE Arriaga> 12/24/212045 [facility] Work Phone: [phone] Progress note Author Kallie Chang [facility] December 03, 2021 2:19pm Note Date/Time December 03, 2021 2:02p [facility] [place] [id number] Hem/Onc Follow Up Note - OP Signed Patient: Tenisha Hancock MR#: [id number] : 1975 Acct:[id number] Age/Sex: 46 / F Type: REG RCR Copies to: DO Miguel Ángel Fernandez MD Kim E Knight, MD~ Subjective Date/Time of Service: Date of Service: 12/03/2021 Time of Service: 14:01 Chief Complaint: Patient is here today for 3 week follow up visit for breast cancer of the right breast and toxicity check HPI: 12/03/2021: Rachel presents for cycle 3, week 2 toxicity check for Adriamycin/Cytoxan/Pembrolizumab. She continues to note fatigue and nausea but has not had any further neutropenia since dose reduction. We are coordinating evaluation by Dr. Simons with plastic surgery as well as Dr. Reza for planned end of therapy with last cycle due on December 17, 2021. The patient is undecided whether she would like to proceed with breast conservation option versus immediate reconstruction with mastectomy. Dr. Simons was contacted to arrange initial evaluation and she may see nurse practitioner for follow-up 1 week after her last cycle of Adriamycin/Cytoxan/Pembrolizumab. I will see her about 2 weeks postoperatively from her definitive therapy to review pathology and any further therapy options at that point. 11/12/2021: Rachel is here for cycle 2, week 2 toxicity check for Adriamycin/Cytoxan/Pembrolizumab. She was given 20% dose reduction Adriamycin and Cytoxan due to neutropenia last cycle and notes that she felt even more fatigued this cycle than prior cycle. She did not have any oral mucositis and met with Dr. Reza but he was unable to review her prior films. She did notrequire any further interventions since surgical clip was placed in the past. She still is undecided whether she will proceed with lumpectomy or mastectomy. I will refer her back for surgical evaluation after completion of her 4 cycles of Adriamycin/Cytoxan/Pembrolizumab. Currently she does not have any cytopeniasnoted recommend proceeding with same dose of therapy. 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 Next follow-up in 3 weeks fortoxicity check or sooner as needed. 10/22/2021: Rachel is here for toxicity check after cycle 1 of Adriamycin/Cytoxan/Pembrolizumab 1 week ago. She notes that she had increased fatigue and persistent nausea and her total white blood cell count is 1200 with ANC 100. No fever, chills, night sweats, or signs or symptoms of infection. Wediscussed dose reduction by 20% due to her neutropenia. Baseline echocardiogramprior to Adriamycin and Cytoxan was 55 to 60%. MRI of the breast was reviewed in comparison to her initial MRI in May 2022 that shows some progression ofher primary breast mass and one of the satellite lesions is no longer identified. Patient does note that after her breast MRI she did undergo placement of clip at the site of her prior lesions. She wanted to transfer her care for surgical evaluation by Dr. Reza and I will place consult for him to evaluate her to plan surgery following 3 more cycles of Adriamycin/Cytoxan/Pembroluzumab. Otherwise she will follow-up for next cycle of chemotherapy in 2 weeks and toxicity visit the following week after 20% dose reduction of both Adriamycin and Cytoxan. 10/08/2021: Rachel is here for followup after completing 4 cycles of neoadjuvant carboplatin AUC 5 with weekly paclitaxel 80 mg/m? and every 3-week Pembroluzumab 200 mg. She is on her last dose of 12-week paclitaxel today. We ordered an MRI on her and reviewed the images with her in clinic today but finalreport is still pending radiology read. I reviewed her case with breast medical oncologist Dr. Vinh Bucio who agreed that patient should likely continue on Adriamycin/Cytoxan/Pembrolizumab every 3 weeks for 4 more cycles as previously written. She had a baseline echocardiogram in May but we will repeat this prior to starting her next round of chemo in 1 week. Her next follow-up for toxicity visit will be cycle 1 week 2 and we will coordinate surgery evaluation based on her breast MRI to review her response to initial therapy. Symptoms are otherwise stable on weekly paclitaxel with minimal neuropathy. I contacted radiology and breast MRI should be read early next week. 09/24/2021: Rachel is a 46-year-old lady who is currently cycle 4-day 1 for neoadjuvant carboplatin AUC 5 (dose adjusted for adjusted body weight), weekly paclitaxel 80 mg/m?, and every 3-week Pembrolizumab 200 mg. She has tolerated chemotherapy reasonably well with nausea and IBS symptoms but she has not had any significant neutropenia. She has not noticed any clinical difference in herbreast exam, although in comparison to prior notes there is a 9 discrete area onexam 3 to 4 cm of thickening in the right 10:00 to 11:00 area. There is no skindimpling or nipple discharge or retraction. I do not feel any palpable masses in the axilla. Although the patient previously saw Dr. Red at diagnosis, she is uncertain of the plan for surgery. Since she had negative genetic testing it is unlikely that she will have bilateral mastectomy and reconstruction, however we can coordinate her evaluation by surgery locally if she wishes. --Otherwise we decided to proceed with her fourth cycle of carboplatin/paclitaxel/Pembrolizumab today. She had a baseline MRI and I will schedule repeat MRI after her fourth cycle and reevaluate her response to disease. Originally Dr. Phoenix had consented her to proceed with Adriamycin and Cytoxan with Pembrolizumab for 4 more cycles following her carboplatin/paclitaxel/Pembrolizumab. I will review this with tertiary breast medical oncologist Dr. Vinh Bucio to determine whether she should proceed with further therapy or be evaluated for surgery. Patient will follow up with me in approximately 2 weeks after her MRI to review subsequent plan of therapy. Previous notes from Dr. Phoenix, last seen 08/18/2021: Tenisha presents August 20, 2021 for cycle 2, day 7 of neoadjuvant chemotherapy for triple negative breast cancer. She does have some progressive alopecia. No nausea vomiting diarrhea. The breast mass in the right breast is not as evidence with deep palpation. Youcan still feel it but it appears to be smaller somewhat. In the right axilla there is a very small pinpoint hard nodule fairly superficial. Her tolerance to therapy to date has been overall good. BRCA testing was done through [employer] and is negative. She does have left foot numbness. MRI was done of the lumbar spine and does show multiple areas of degenerative disc disease. The patient has a known history of problem both in her lumbar spine and what appears in her cervical spine. I will refer her to Dr. Castle for consideration of kyphoplasty or other. I willdefer to his impression and recommendations. MOHEGAN: This is a 46 year old female, recently diagnosed with triple negative right breast cancer; currently undergoing neoadjuvant pembrolizumab, carboplatin AUC 4and weekly paclitaxel x6 cycles, which commenced: 07/22/2021. This is a 46-year-old female who works at [employer] with triple negative breast cancer, referred for neoadjuvant chemotherapy. Mammogramon on April 22, 2021 showed 3 new focal masses with the largest measuring 2 cm in size in the right breast. 2 additional lesions measuring 1 cm and a second 0.9 cm were also seen. The patient was referred for biopsy. Needle biopsy showed triple negative breast cancer, ER negative, LA negative, and H ER 2 -. The patient was referred to Dr. Ismael Red for [id number]-[id number] which she has had placed. She has seen my colleague Dr. Smith at the [facility] recommended neoadjuvant chemotherapy and immunotherapy. Because of insurance reasons, she will be getting her treatment here at [facility]. She has had echocardiography as well. According the patient an MRI was obtained prior to neoadjuvant therapy while she was at [facility] we are requesting this prior study. She does have a palpable breast mass. It is in the lower mid quadrant of the right breast. Mammogram on on April 22, 2021 showed 3 new focal masses with the largest measuring 2 cm in size in the right breast. 2 additional lesions measuring 1 cmand a second 0.9 cm were also seen. The patient was referred for biopsy. Needle biopsy showed triple negative breast cancer, ER negative, LA negative, and HER 2 -. The patient was referred to Dr. Ismael Red for [id number] which she has had placed. She has seen my colleague Dr. Smith at the [facility] recommended neoadjuvant chemotherapy and immunotherapy. Because of insurance reasons, she will be getting her treatment here at [facility]. She has had echocardiography as well. PET/CT scan was denied by insurance and she underwent CT scan of the chest/abdomen/pelvis on 07/16/2021 which showed no obvious evidence of distant metastatic disease. As noted above, Cycle 1, Day 1 (Carboplatin/Paclitaxel/Pembrolizumab) commenced 07/22/2021 and this was well tolerated. The patient went home that evening and began to feel flushed, general malaise, etc. She subsequently tested positive for COVID - 19 per PCR the following day, 07/23/2021. Her symptoms were quite mild; however, next cycle of chemotherapy was pushed out 2 days and she is here today for Cycle 1, Day 8 of single agent Paclitaxel. She does have a palpable breast mass in the lower mid quadrant of the right breast; she was concerned about a lump under her right axilla but upon exam wehad trouble locating a discrete nodule or lymph node. Otherwise, her only complaint is continued low back pain with radiculopathy involving the left groin/hip and left lower extremity with associated numbness in left foot. She has known neuroma of the left foot and was in the process of being worked up by pain management (Dr. Monique) for lumbar pain; radiculopathy. - Summary of Therapies Summary of Therapies: Neoadjuvant Carboplatin AUC 5-day 1, Pembrolizumab 200 mg day 1, Paclitaxel 80 mg meter squared weekly each 21-day cycle for planned 4 cycles: started Cycle 1,Day 1: 07/22/2021, cycle 4 09/24/2021 --Plan 10/15/2021: Start Pembrolizumab 200 mg day 1, doxorubicin 60 mg/m? day 1,and cyclophosphamide 600 mg/m? day 1 every 21 days x 4 cycles followed by adjuvant Pembrolizumab 200 mg IV every 21 days x 9 cycles --Original breast MRI obtained from [facility] from May 2021, follow-up breast MRI performed 10/07/2021 for initial response to therapy. Patient requested an opinion from Dr. Reza for planning breast surgery options based on MRI (she does note that prior biopsy clips were placed after her original MRI for further neoadjuvant therapy). -- 20% dose reduction doxorubicin and cyclophosphamide cycle 2 for neutropenia. Last dose of Adriamycin, cyclophosphamide, Pembroluzumab due 12/17/2021. End of therapy echo may be ordered preoperatively in late December. ROS Details: All systems reviewed & no additional complaints except as documented Subjective/ROS - Narrative: CONSTITUTIONAL: Stable fatigue, negative for fever or night sweats. Still able to perform activities of daily living. HEAD AND NECK: Negative for changes in hearing and vision. Negative for mouth ulcers, nasal congestion and nasal drainage. BREASTS: Unchanged right UOQ fullness without skin changes. PULMONARY: Negative for chest pain, cough and dyspnea. CARDIOVASCULAR: Negative for claudication and irregular heartbeat/palpitations. GASTROINTESTINAL: Negative for abdominal pain, constipation, decreased appetite,diarrhea, noted to have increased nausea without vomiting with first 2 cycles ofAC Pembroluzumab--stable cycle 3. GENITOURINARY: Negative for dysuria and hematuria. ENDOCRINE: Negative for cold intolerance and heat intolerance. CENTRAL NERVOUS SYSTEM: Negative for gait disturbance and headache. PSYCHIATRIC: Negative for anxiety or depression. DERMATOLOGICAL: Negative for pruritus and rash. Negative for suspicious skin lesions. MUSCULOSKELETAL: Stable lumbar back pain and no bone/joint symptoms. HEMATOLOGICAL: Negative for bleeding and easy bruising. Negative for history of transfusion or thromboembolic disease. Laboratories with cycle 1 AC Pembroluzumab shows neutropenia without fever. No neutropenia after dose reduction cycle 2. ALLERGY: Negative for environmental allergies and food allergies. PMFSH - History Attestation statement: The following information was validated with the patient. Source: Old Records Reviewed - Medical History Medical History: Medical History (Last Reviewed 12/03/21 @ 14:14 by Kallie Chang MD) Arthritis COVID-19 Headache High blood cholesterol - Surgical History Surgical History: Surgical History (Last Reviewed 12/03/21 @ 14:14 by Kallie Chang MD) History of breast biopsy right 05/26/2021 History of carpal tunnel release History of cholecystectomy History of foot surgery right - Family History Family History: Family History (Last Reviewed 12/03/21 @ 14:14 by Kallie Chang MD) Brother Lung cancer Father Cancer Mother COPD (chronic obstructive pulmonary disease) - Social History Smoking Status: Former smoker Tobacco Type: cigarettes Substance Use Type: None Home Medications & Allergies Allergies No Known Allergies Allergy (Verified 12/03/21 13:51) Home Medications [id number] 250 mg-250 mg-65 mg tablet (Excedrin Migraine) 1 tab PO Q4-6H PRN 07/08/21 [History Confirmed 12/03/21] citalopram 20 mg tablet 20 mg PO DAILY 07/08/21 [History Confirmed 12/03/21] diclofenac sodium 50 mg tablet,delayed release 50 mg PO TID 07/08/21 [History Confirmed 12/03/21] omeprazole 20 mg capsule,delayed release 20 mg PO DAILY 07/08/21 [History Confirmed 12/03/21] ondansetron HCl 8 mg tablet 8 mg PO Q8H PRN #30 tab 07/08/21 [Rx Confirmed 12/03/21] prochlorperazine maleate 10 mg tablet (Compazine) 10 mg PO Q6H PRN #30 tab 07/08/21 [Rx Confirmed 12/03/21] lorazepam 1 mg tablet 1 mg PO Q6H PRN 14 Days #56 tab 09/04/21 [Rx Confirmed 12/03/21] dexamethasone 4 mg tablet 8 mg PO BID #6 tab 09/17/21 [Rx Confirmed 12/03/21] Objective - Height/Weight Height/Weight: Height 5 ft 3 in Weight 90.265 kg BSA for Today's Weight 2.02 - Vital Signs Vital Signs: 12/03/21 13:51 Temperature 97.0 F L Pulse Rate [Left Brachial] 81 Respiratory Rate 16 Blood Pressure [Left Arm] 108/72 02 Sat by Pulse Oximetry 98 - Pain Left Shoulder Pain Intensity: 5 Lower Back Pain Intensity: 4 Generalized Left Pain Intensity: 4 Physical Exam Narrative: GENERAL: Alert, pleasant, no acute distress. HEENT: Oral mucosa is pink/moist; no lesions or exudate. Neck supple without adenopathy or thyromegaly. BREAST: Right breast reveals fullness without discrete margins in the subareolarregion (previously documented as ~ 2-3 cm in size near the inferior/medial aspect of the breast). No supraclavicular/infraclavicular or axillary lymphadenopathy. Left breast without masses, left upper chest [id number]-[id number] in place and nontender. No axillary fullness seen, no skin changes or nipple discharge/deviation of left breast. HEART: RRR; no murmurs/rubs or gallops; S1 and S2 normal. No edema. LUNGS: CTA bilaterally; no wheezes or crackles. Normal respiratory effort. ABDOMEN: Soft, non tender. BS present x 4 quadrants. No HSM. INTEGUMENTARY: Warm, dry; no skin rashes. MUSCULOSKELETAL: Normal strength 5/5 in extremities x 4; no weakness; left groinpain. LYMPHATICS: No lymphadenopathy appreciated. NEUROLOGICAL: Grossly intact, patient is alert and oriented x 3; stable gait. Lumbar spine pain with referred pain in the left gluteal area and around the left groin; with radiculopathy of left lower extremity--patient is ambulatory and pain is stable. - ECOG Performance Status ECOG Score: 1 Results - Labs Labs: Diagram of Most Recent CBC and CMP 12/02/21 13:28 12/02/21 13:28 Labs - Last 7 Days 12/02/21 13:28: PHA Creatinine Clear 87.18, Sodium 133 L, Potassium 3.7, Chloride 100, Carbon Dioxide 23.7, BUN 8 L, Creatinine 0.88, Est GFR ( Amer) > 60, Est GFR (Non-Af Amer) > 60, Glucose 168 H, Calcium 8.9, Total Bilirubin 0.5, AST 16, ALT 23, Alkaline Phosphatase 131 H, Total Protein 6.5, Albumin 3.6, Globulin 2.9, Albumin/Globulin Ratio 1.2 12/02/21 13:28: Corrected WBC 8.7, Uncorrected WBC Count 8.7, RBC 2.87 L, Hgb 10.0 L, Hct 30.0 L, MCV 104.6 H, MCH 34.8 H, MCHC 33.3, RDW 15.1, Plt Count 284,MPV 7.9, Neut % (Auto) 80.1, Lymph % (Auto) 16.3, Greenwood % (Auto) 2.6, Eos % (Auto) 0.5, Baso % (Auto) 0.5, Neut # (Auto) 6.9, Lymph # (Auto) 1.4, Greenwood # (Auto) 0.2, Eos # (Auto) 0.0, Baso # (Auto) 0.0, Nucleated RBC % (auto) 0.1, Toxic Granulation Slight, Dohle Bodies Slight, Platelet Estimate Normal, Plt Morphology Comment Normal, RBC Morphology N/A, Macrocytosis Slight, Tear Drop Cells Slight 11/25/21 14:45: PHA Creatinine Clear 105.09, Sodium 137, Potassium 4.2, [id number], Carbon Dioxide 22.6, BUN 14, Creatinine 0.73, Est GFR ( Amer) > 60, Est GFR (Non-Af Amer) > 60, Glucose 99, Calcium 9.3, Total Bilirubin 0.4, AST 39, ALT 46, Alkaline Phosphatase 77, Total Protein 6.5, Albumin 3.8, Globulin 2.7, Albumin/Globulin Ratio 1.4 11/25/21 14:45: Corrected WBC 8.7, Uncorrected WBC Count 8.7, RBC 2.81 L, Hgb 9.9 L, Hct 29.4 L, MCV 104.6 H, MCH 35.4 H, MCHC 33.8, RDW 15.6 H, Plt Count 321, MPV 8.6, Neut % (Auto) 71.5, Lymph % (Auto) 19.6, Greenwood % (Auto) 7.6, Eos % (Auto) 0.4, Baso % (Auto) 0.9, Neut # (Auto) 6.2, Lymph # (Auto) 1.7, Greenwood # (Auto) 0.7, Eos # (Auto) 0.0, Baso # (Auto) 0.1, Nucleated RBC % (auto) 0.2 11/25/21 14:45: ACTH 11/25/21 14:45: Free T4 0.81, TSH 3rd Generation 0.13 L, Total Cortisol 4.0 - Impressions No new imaging for review. Assessment and Plan - TNM Staging Staging: Stage II right breast invasive ductal carcinoma grade 3, estrogen receptor 0%, progesterone receptor 0%, HER-2 negative by IHC Clinical stage II with baseline tumor at least 2 or 2.5 cm (In comparison with prior 05/2021 MRI there was interval decrease of dominant mass to 1.5 cm in greatest dimension)--we will continue neoadjuvant therapy as previously written with AC plus pembrolizumab (1) Breast cancer Qualifiers: Breast location: overlapping sites of breast Patient sex: female Laterality: right Patient is a 46-year-old female presenting with 3 discernible masses by mammography (04/22/2021) with needle biopsy confirming triple negative breast cancer. She was initially see in consultation by Dr. Smith at [facility] in [place], [place]; however, due to insurance reasons the [facility]. In reviewing notes from her prior physician from 06/20/2021 she had 3 focal nodules with largest measuring 2 x 1.8 cm 6 o'clock position, 2 additional lesions measuring 1 x 0.7 cm and another 0.9 x 0.6 cm. BI-RADS spot compression view right breast showed persistent 2.4 x 2.2 cm partially obscured round mass with pleomorphic calcifications. She did have breast MRI prior to initiation of neoadjuvant therapy which I do not have records from this from [facility] in [place]. I am requesting this to evaluate her baseline study since transfer of care from Dr. Phoenix to myself. She also had reported normal baseline echo in May 2021. She commenced neoadjuvant Carboplatin/Paclitaxel/Pembrolizumab therapy on 07/22/2021; Our treatment plan will be pembrolizumab 200 mg IV every 3 weeks with weekly paclitaxel 80 mg/m? IV and q. 21 days carboplatin AUC 5 for 4 cycles. This treatment regimen is based on KEYNOTE 522 trial and is now standard of careand NCCN guidelines. After review of her MRI from outside hospital, I will repeat her breast MRI for new baseline here. If stable to responding disease wemay continue prior plan for followed by pembrolizumab every 3 weeks with Adriamycin and cyclophosphamide for 4 cycles. The patient would like reassessment by general surgery for surgical plan and we will determine whether she proceeds with mastectomy or lumpectomy based on his results. Baseline genetic testing returned negative from prior physicians at [facility]. BRCA testing negative Follow-up September is cycle 4 -day 1. Tolerance is overall good-- Proceed with cycle 4 with breast MRI prior to 2-week follow-up in comparison to baseline MRI. This will be useful in surgical planning. I am discussing her case with tertiary breast oncology Dr. Vinh Bucio to see if he concurs withthis plan. If decision is made to commence AC Pembroluzumab we will repeat her echocardiogram prior to this and obtain her prior echo results. --Physical exam may be showing some evidence of response with the lump in the right breast being not as conspicuous as compared to prior notes although it is unclear to evaluate by exam, therefore MRI is ordered. --My plan at this time will be to press on and continue our chemotherapy per plan. I will see her in 2 weeks. 10/08/2021: Patient is here for her last paclitaxel prior to changing agents for neoadjuvant therapy to Adriamycin/cyclophosphamide/pembrolizumab. She is due for follow-up echocardiogram prior to starting anthracycline. She had discussedpotentially changing surgeons to Dr. Reza and I contacted him regarding breast MRI for surgical planning. We will review her prior MRI from [facility] in May 2021 in comparison to most recent MRI (report pending). Of note outside MRI noted no biopsy clips in place and we may need to rebiopsy to place clips at sites of residual tumor masses prior to continuing further neoadjuvant therapy. We will coordinate a time for him to meet with the patientto discuss surgical options of lumpectomy versus mastectomy. Patient will commence her Adriamycin/cyclophosphamide/Pembrolizumab at 10/15/2021 and I will follow-up with her in early October for toxicity visit for tolerance. 10/22/2021: Change to Adriamycin/cyclophosphamide/Pembrolizumab with neutropenia noted but no fever. Echocardiogram at baseline was 55 to 60%. Other than nausea no other significant toxicities. MRI was reviewed and [facility] tumor board with Dr. Reza and he will be arranging evaluation for surgical options. Consultation was placed to him today. We willdose reduce Adriamycin and cyclophosphamide both by 20% due to her neutropenia. Otherwise may proceed with chemotherapy in 2 weeks he can follow-up in 3 weeks either with myself or nurse practitioner for toxicity review. 11/12/2021: Here for cycle 2-day 8 toxicity visit on now 20% dose reduced Adriamycin/cyclophosphamide/Pembrolizumab due to neutropenia without fever last cycle. Persistent fatigue and nausea without mouth ulcers. No neutropenia thiscycle. The patient met with Dr. Reza and will follow-up with her at end oftherapy. She is still not decided whether she would like to proceed with lumpectomy or mastectomy plus minus reconstruction. We will coordinate 3-week follow-up toxicity visit with nurse practitioner cycle 3-day 8--no dose reduction since she does not have any significant cytopenias. 12/03/2021: Here for cycle 3-day 8 toxicity visit on 20% dose reduced Adriamycin/cyclophosphamide/Pembrolizumab with no new toxicities. No cytopeniasare noted. I am coordinating plastic surgery consultation with Dr. Berny Simons prior to evaluation by Dr. Reza to determine surgical approach. She will have 1 more dose of chemotherapy due on 12/17/2021 and will follow-up with nurse practitioner 1 week following her chemo. She will require end of therapy echocardiogram in late December. I will see her in follow-up 2 weeks after her definitive surgery to review pathology and further plan for therapy/surveillance. Moderate complexity visit over 35 minutes for symptom review on chemotherapy, coordination with Dr. Simons and Dr. Reza of breast surgery for surgical plan. (2) Chemotherapy-induced neutropenia Neutropenia without fever with first cycle. Precautions given. 20% dose reduction for cycle 2 Adriamycin and cyclophosphamide as noted above--no furtherdose reductions required for cycle 3 or cycle 4. (3) Lumbar back pain with radiculopathy affecting left lower extremity Lumbar MRI results are reviewed--degenerative disc disease but no evidence of metastatic cancer. Previously referred to Dr. Jameson Castle for his recommendations. (4) Encounter for chemotherapy management Moderate complexity visit for toxicity visit on Adriamycin/cyclophosphamide/Pembroluzumab, review evaluation by Dr. Reza ofgeneral surgery, and discussion of overall plan of care with the patient. -- Last cycle of therapy 12/17/2021 and coordinating surgical planning. - Chemo Plan Chemo Plan (Dose, Rate, Freq): Neoadjuvant Carboplatin/Paclitaxel/Pembrolizumab therapy on 07/22/2021; Our treatment plan will be pembrolizumab 200 mg IV every 3 weeks with weekly paclitaxel 80 mg/m? IV and q. 21 days carboplatin AUC 5 for 4 cycles. This treatment regimen is based on KEYNOTE 522 trial and is now standard of care and NCCN guidelines. --After review of her MRI from outside hospital, I repeated her breast MRI for new baseline here. 10/17/2021: Cycle 1 day 1 pembrolizumab every 3 weeks with Adriamycin and cyclophosphamide for 4 cycles. 20% dose reduction Adriamycin andcyclophosphamide for neutropenia with cycle 2. Number of Cycles: 8 Goal of Treatment: Curative - Time with Patient Time Spent with Patient (Follow Up Visit): 35 minutes Coordination of Care & Counseling Time: Greater than 50% of time spent with patient was for coordination of care (as documented) and [id number] counseling of patient and/or family. Dictated By: Kallie Chang MD DD/ [id number] Signed By: <Electronically signed by MD Kallie Chang> 12/03/21 1419 [facility] Work Phone: [phone] 111-441504-28-2022 Progress note Author Kallie Chang [facility] November 13, 2021 3:34pm Note Date/Time November 12, 2021 3:0 7pm [facility] at [address] [address] Hem/Onc Follow Up Note - OP Signed Patient: Tenisha Hancock MR#: [id number] : 1975 Acct:[id number] Age/Sex: 46 / F Type: REG RCR Copies to: DO Eliel Fernandez MD~ Subjective Date/Time of Service: Date of Service: 11/12/2021 Time of Service: 15:07 Chief Complaint: Patient is here for a 3 week follow up with labs for review, states she is not feeling the greatest today. HPI: 11/12/2021: Rachel is here for cycle 2, week 2 toxicity check for cycle 2 Adriamycin/Cytoxan/Pembrolizumab. She was given 20% dose reduction Adriamycin and Cytoxan due to neutropenia last cycle and notes that she felt even more fatigued this cycle than prior cycle. She did not have any oral mucositis and met with Dr. Reza but he was unable to review her prior films. She did notrequire any further interventions since surgical clip was placed in the past. She still is undecided whether she will proceed with lumpectomy or mastectomy. Iwill refer her back for surgical evaluation after completion of her 4 cycles of Adriamycin/Cytoxan/Pembroluzumab. Currently she does not have any cytopenias noted recommend proceeding with same dose of therapy. 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 Next follow-up in 3 weeks fortoxicity check or sooner as needed. 10/22/2021: Rachel is here for toxicity check after cycle 1 of Adriamycin/Cytoxan/Pembrolizumab 1 week ago. She notes that she had increased fatigue and persistent nausea and her total white blood cell count is 1200 with ANC 100. No fever, chills, night sweats, or signs or symptoms of infection. Wediscussed dose reduction by 20% due to her neutropenia. Baseline echocardiogramprior to Adriamycin and Cytoxan was 55 to 60%. MRI of the breast was reviewed in comparison to her initial MRI in May 2022 that shows some progression ofher primary breast mass and one of the satellite lesions is no longer identified. Patient does note that after her breast MRI she did undergo placement of clip at the site of her prior lesions. She wanted to transfer her care for surgical evaluation by Dr. Reza and I will place consult for him to evaluate her to plan surgery following 3 more cycles of Adriamycin/Cytoxan/Pembroluzumab. Otherwise she will follow-up for next cycle of chemotherapy in 2 weeks and toxicity visit the following week after 20% dose reduction of both Adriamycin and Cytoxan. 10/08/2021: Rachel is here for followup after completing 4 cycles of neoadjuvant carboplatin AUC 5 with weekly paclitaxel 80 mg/m? and every 3-week Pembroluzumab 200 mg. She is on her last dose of 12-week paclitaxel today. We ordered an MRI on her and reviewed the images with her in clinic today but finalreport is still pending radiology read. I reviewed her case with breast medical oncologist Dr. Vinh Bucio who agreed that patient should likely continue on Adriamycin/Cytoxan/Pembrolizumab every 3 weeks for 4 more cycles as previously written. She had a baseline echocardiogram in May but we will repeat this prior to starting her next round of chemo in 1 week. Her next follow-up for toxicity visit will be cycle 1 week 2 and we will coordinate surgery evaluation based on her breast MRI to review her response to initial therapy. Symptoms are otherwise stable on weekly paclitaxel with minimal neuropathy. I contacted radiology and breast MRI should be read early next week. 09/24/2021: Rachel is a 46-year-old lady who is currently cycle 4-day 1 for neoadjuvant carboplatin AUC 5 (dose adjusted for adjusted body weight), weekly paclitaxel 80 mg/m?, and every 3-week Pembrolizumab 200 mg. She has tolerated chemotherapy reasonably well with nausea and IBS symptoms but she has not had any significant neutropenia. She has not noticed any clinical difference in herbreast exam, although in comparison to prior notes there is a 9 discrete area onexam 3 to 4 cm of thickening in the right 10:00 to 11:00 area. There is no skindimpling or nipple discharge or retraction. I do not feel any palpable masses in the axilla. Although the patient previously saw Dr. Red at diagnosis, she is uncertain of the plan for surgery. Since she had negative genetic testing it is unlikely that she will have bilateral mastectomy and reconstruction, however we can coordinate her evaluation by surgery locally if she wishes. --Otherwise we decided to proceed with her fourth cycle of carboplatin/paclitaxel/Pembrolizumab today. She had a baseline MRI and I will schedule repeat MRI after her fourth cycle and reevaluate her response to disease. Originally Dr. Phoenix had consented her to proceed with Adriamycin and Cytoxan with Pembrolizumab for 4 more cycles following her carboplatin/paclitaxel/Pembrolizumab. I will review this with tertiary breast medical oncologist Dr. Vinh Bucio to determine whether she should proceed with further therapy or be evaluated for surgery. Patient will follow up with me in approximately 2 weeks after her MRI to review subsequent plan of therapy. Previous notes from Dr. Phoenix, last seen 08/18/2021: Tenisha presents August 20, 2021 for cycle 2, day 7 of neoadjuvant chemotherapy for triple negative breast cancer. She does have some progressive alopecia. No nausea vomiting diarrhea. The breast mass in the right breast is not as evidence with deep palpation. Youcan still feel it but it appears to be smaller somewhat. In the right axilla there is a very small pinpoint hard nodule fairly superficial. Her tolerance to therapy to date has been overall good. BRCA testing was done through [employer] and is negative. She does have left foot numbness. MRI was done of the lumbar spine and does show multiple areas of degenerative disc disease. The patient has a known history of problem both in her lumbar spine and what appears in her cervical spine. I will refer her to Dr. Castle for consideration of kyphoplasty or other. I willdefer to his impression and recommendations. MOHEGAN: This is a 46 year old female, recently diagnosed with triple negative right breast cancer; currently undergoing neoadjuvant pembrolizumab, carboplatin AUC 4and weekly paclitaxel x6 cycles, which commenced: 07/22/2021. This is a 46-year-old female who works at [employer] with triple negative breast cancer, referred for neoadjuvant chemotherapy. Mammogramon on April 22, 2021 showed 3 new focal masses with the largest measuring 2 cm in size in the right breast. 2 additional lesions measuring 1 cm and a second 0.9 cm were also seen. The patient was referred for biopsy. Needle biopsy showed triple negative breast cancer, ER negative, LA negative, and H ER 2 -. The patient was referred to Dr. Ismael Red for Hjktmy-t-Boim which she has had placed. [facility]. Because of insurance reasons, she will be getting her treatment here at [facility]. She has had echocardiography as well. According the patient an MRI was obtained prior to neoadjuvant therapy while she was at [facility] we are requesting this prior study. She does have a palpable breast mass. It is in the lower mid quadrant of the right breast. Mammogram on on April 22, 2021 showed 3 new focal masses with the largest measuring 2 cm in size in the right breast. 2 additional lesions measuring 1 cmand a second 0.9 cm were also seen. The patient was referred for biopsy. Needle biopsy showed triple negative breast cancer, ER negative, LA negative, and HER 2 -. The patient was referred to Dr. Ismael Red for [id number] which she has had placed. She has seen my colleague Dr. Smith at the [facility] recommended neoadjuvant chemotherapy and immunotherapy. Because of insurance reasons, she will be getting her treatment here at [facility]. She has had echocardiography as well. PET/CT scan was denied by insurance and she underwent CT scan of the chest/abdomen/pelvis on 07/16/2021 which showed no obvious evidence of distant metastatic disease. As noted above, Cycle 1, Day 1 (Carboplatin/Paclitaxel/Pembrolizumab) commenced 07/22/2021 and this was well tolerated. The patient went home that evening and began to feel flushed, general malaise, etc. She subsequently tested positive for COVID - 19 per PCR the following day, 07/23/2021. Her symptoms were quite mild; however, next cycle of chemotherapy was pushed out 2 days and she is here today for Cycle 1, Day 8 of single agent Paclitaxel. She does have a palpable breast mass in the lower mid quadrant of the right breast; she was concerned about a lump under her right axilla but upon exam wehad trouble locating a discrete nodule or lymph node. Otherwise, her only complaint is continued low back pain with radiculopathy involving the left groin/hip and left lower extremity with associated numbness in left foot. She has known neuroma of the left foot and was in the process of being worked up by pain management (Dr. Monique) for lumbar pain; radiculopathy. - Summary of Therapies Summary of Therapies: Neoadjuvant Carboplatin AUC 5-day 1, Pembrolizumab 200 mg day 1, Paclitaxel 80 mg meter squared weekly each 21-day cycle for planned 4 cycles: started Cycle 1,Day 1: 07/22/2021, cycle 4 09/24/2021 --Plan 10/15/2021: Start Pembrolizumab 200 mg day 1, doxorubicin 60 mg/m? day 1,and cyclophosphamide 600 mg/m? day 1 every 21 days x 4 cycles followed by adjuvant Pembrolizumab 200 mg IV every 21 days x 9 cycles --Original breast MRI obtained from [facility] from May 2021, follow-up breast MRI performed 10/07/2021 for initial response to therapy. Patient requested an opinion from Dr. Reza for planning breast surgery options based on MRI (she does note that prior biopsy clips were placed after her original MRI for further neoadjuvant therapy). -- 20% dose reduction doxorubicin and cyclophosphamide cycle 2 for neutropenia. ROS Details: All systems reviewed & no additional complaints except as documented Subjective/ROS - Narrative: CONSTITUTIONAL: Moderate increased fatigue, negative for fever or night sweats. Still able to perform activities of daily living. HEAD AND NECK: Negative for changes in hearing and vision. Negative for mouth ulcers, nasal congestion and nasal drainage. BREASTS: Unchanged right UOQ fullness without skin changes. PULMONARY: Negative for chest pain, cough and dyspnea. CARDIOVASCULAR: Negative for claudication and irregular heartbeat/palpitations. GASTROINTESTINAL: Negative for abdominal pain, constipation, decreased appetite,diarrhea, noted to have increased nausea without vomiting with first 2 cycles ofAC Pembroluzumab. GENITOURINARY: Negative for dysuria and hematuria. ENDOCRINE: Negative for cold intolerance and heat intolerance. CENTRAL NERVOUS SYSTEM: Negative for gait disturbance and headache. PSYCHIATRIC: Negative for anxiety or depression. DERMATOLOGICAL: Negative for pruritus and rash. Negative for suspicious skin lesions. MUSCULOSKELETAL: Stable lumbar back pain and no bone/joint symptoms. HEMATOLOGICAL: Negative for bleeding and easy bruising. Negative for history of transfusion or thromboembolic disease. Laboratories with cycle 1 AC Pembroluzumab shows neutropenia without fever. No neutropenia after dose reduction cycle 2. ALLERGY: Negative for environmental allergies and food allergies. PMFSH - History Attestation statement: The following information was validated with the patient. Source: Old Records Reviewed - Medical History Medical History: Medical History (Last Reviewed 11/13/21 @ 15:24 by Kallie Chang MD) Arthritis COVID-19 Headache High blood cholesterol - Surgical History Surgical History: Surgical History (Last Reviewed 11/13/21 @ 15:24 by Kallie Chang MD) History of breast biopsy right 05/26/2021 History of carpal tunnel release History of cholecystectomy History of foot surgery right - Family History Family History: Family History (Last Reviewed 11/13/21 @ 15:24 by Kallie Chang MD) Brother Lung cancer Father Cancer Mother COPD (chronic obstructive pulmonary disease) - Social History Smoking Status: Former smoker Tobacco Type: cigarettes Substance Use Type: None Home Medications & Allergies Allergies No Known Allergies Allergy (Verified 10/22/21 10:19) Home Medications kqrpnbr-[id number]-[id number] 250 mg-250 mg-65 mg tablet (Excedrin Migraine) 1 tab PO Q4-6H PRN 07/08/21 [History Confirmed 11/12/21] citalopram 20 mg tablet 20 mg PO DAILY 07/08/21 [History Confirmed 11/12/21] diclofenac sodium 50 mg tablet,delayed release 50 mg PO TID 07/08/21 [History Confirmed 11/12/21] omeprazole 20 mg capsule,delayed release 20 mg PO DAILY 07/08/21 [History Confirmed 11/12/21] ondansetron HCl 8 mg tablet 8 mg PO Q8H PRN #30 tab 07/08/21 [Rx Confirmed 11/12/21] prochlorperazine maleate 10 mg tablet (Compazine) 10 mg PO Q6H PRN #30 tab 07/08/21 [Rx Confirmed 11/12/21] lorazepam 1 mg tablet 1 mg PO Q6H PRN 14 Days #56 tab 09/04/21 [Rx Confirmed 11/12/21] dexamethasone 4 mg tablet 8 mg PO BID #6 tab 09/17/21 [Rx Confirmed 11/12/21] Objective - Height/Weight Height/Weight: Height 5 ft 3 in Weight 90.628 kg BSA for Today's Weight 2.02 - Vital Signs Vital Signs: 11/12/21 14:57 Temperature 97.7 F Pulse Rate [Left Brachial] 78 Respiratory Rate 20 Blood Pressure [Left Arm] 111/74 02 Sat by Pulse Oximetry 100 - Pain Left Shoulder Pain Intensity: 5 Lower Back Pain Intensity: 4 Generalized Left Pain Intensity: 4 Physical Exam Narrative: GENERAL: Alert, pleasant, no acute distress. HEENT: Oral mucosa is pink/moist; no lesions or exudate. Neck supple without adenopathy or thyromegaly. BREAST: Right breast reveals less discrete mass 1.5 cm area of fullness without discrete margins in the subareolar region (previously documented as ~ 2-3 cm in size near the inferior/medial aspect of the breast); mildly regressed per patient. No supraclavicular/infraclavicular or axillary lymphadenopathy. Left breast without masses, left upper chest Keimzu-x-[id number] in place and nontender. No axillary fullness seen, no skin changes or nipple discharge/deviation of leftbreast. HEART: RRR; no murmurs/rubs or gallops; S1 and S2 normal. No edema. LUNGS: CTA bilaterally; no wheezes or crackles. Normal respiratory effort. ABDOMEN: Soft, non tender. BS present x 4 quadrants. No HSM. INTEGUMENTARY: Warm, dry; no skin rashes. MUSCULOSKELETAL: Normal strength 5/5 in extremities x 4; no weakness; left groinpain. LYMPHATICS: No lymphadenopathy appreciated. NEUROLOGICAL: Grossly intact, patient is alert and oriented x 3; stable gait. Lumbar spine pain with referred pain in the left gluteal area and around the left groin; with radiculopathy of left lower extremity--patient is ambulatory and pain is stable. - ECOG Performance Status ECOG Score: 1 Results - Labs Labs: Diagram of Most Recent CBC and CMP 11/12/21 13:52 Labs - Last 7 Days 11/12/21 13:52: PHA Creatinine Clear 145.60, Sodium 136, Potassium 3.6, [id number], Carbon Dioxide 23.3, BUN 7 L, Creatinine 0.53, Est GFR ( Amer) > 60,Est GFR (Non-Af Amer) > 60, Glucose 110 H, Calcium 9.3, Total Bilirubin 0.6, AST17, ALT 24, Alkaline Phosphatase 112 H, Total Protein 6.4, Albumin 3.6, Globulin2.8, Albumin/Globulin Ratio 1.3, Free T4 0.71, TSH 3rd Generation 0.60, Total Cortisol 7.3 - Impressions No new imaging for review. Assessment and Plan - TNM Staging Staging: Stage II right breast invasive ductal carcinoma grade 3, estrogen receptor 0%, progesterone receptor 0%, HER-2 negative by IHC Clinical stage II with baseline tumor at least 2 or 2.5 cm (awaiting prior MRI results)--we will continue neoadjuvant therapy as previously written with AC plus pembrolizumab (1) Breast cancer Qualifiers: Breast location: overlapping sites of breast Patient sex: female Laterality: right Patient is a 46-year-old female presenting with 3 discernible masses by mammography (04/22/2021) with needle biopsy confirming triple negative breast cancer. She was initially see in consultation by Dr. Smith at [facility] in [place], [place]; however, due to insurance reasons the [facility]. In reviewing notes from her prior physician from 06/20/2021 she had 3 focal nodules with largest measuring 2 x 1.8 cm 6 o'clock position, 2 additional lesions measuring 1 x 0.7 cm and another 0.9 x 0.6 cm. BI-RADS spot compression view right breast showed persistent 2.4 x 2.2 cm partially obscured round mass with pleomorphic calcifications. She did have breast MRI prior to initiation of neoadjuvant therapy which I do not have records from this from [facility] in [place]. I am requesting this to evaluate her baseline study since transfer of care from Dr. Phoenix to myself. She also had reported normal baseline echo in May 2021. She commenced neoadjuvant Carboplatin/Paclitaxel/Pembrolizumab therapy on 07/22/2021; Our treatment plan will be pembrolizumab 200 mg IV every 3 weeks with weekly paclitaxel 80 mg/m? IV and q. 21 days carboplatin AUC 5 for 4 cycles. This treatment regimen is based on KEYNOTE 522 trial and is now standard of careand NCCN guidelines. After review of her MRI from outside hospital, I will repeat her breast MRI for new baseline here. If stable to responding disease wemay continue prior plan for followed by pembrolizumab every 3 weeks with Adriamycin and cyclophosphamide for 4 cycles. The patient would like reassessment by general surgery for surgical plan and we will determine whether she proceeds with mastectomy or lumpectomy based on his results. Baseline genetic testing returned negative from prior physicians at [facility]. BRCA testing negative Follow-up September is cycle 4 -day 1. Tolerance is overall good-- Proceed with cycle 4 with breast MRI prior to 2-week follow-up in comparison to baseline MRI. This will be useful in surgical planning. I am discussing her case with tertiary breast oncology Dr. Vinh Bucio to see if he concurs withthis plan. If decision is made to commence AC Pembroluzumab we will repeat her echocardiogram prior to this and obtain her prior echo results. --Physical exam may be showing some evidence of response with the lump in the right breast being not as conspicuous as compared to prior notes although it is unclear to evaluate by exam, therefore MRI is ordered. --My plan at this time will be to press on and continue our chemotherapy per plan. I will see her in 2 weeks. 10/08/2021: Patient is here for her last paclitaxel prior to changing agents for neoadjuvant therapy to Adriamycin/cyclophosphamide/pembrolizumab. She is due for follow-up echocardiogram prior to starting anthracycline. She had discussedpotentially changing surgeons to Dr. Reza and I contacted him regarding breast MRI for surgical planning. We will review her prior MRI from [facility] in May 2021 in comparison to most recent MRI (report pending). Of note outside MRI noted no biopsy clips in place and we may need to rebiopsy to place clips at sites of residual tumor masses prior to continuing further neoadjuvant therapy. We will coordinate a time for him to meet with the patientto discuss surgical options of lumpectomy versus mastectomy. Patient will commence her Adriamycin/cyclophosphamide/Pembrolizumab at 10/15/2021 and I will follow-up with her in early October for toxicity visit for tolerance. 10/22/2021: Change to Adriamycin/cyclophosphamide/Pembrolizumab with neutropenia noted but no fever. Echocardiogram at baseline was 55 to 60%. Other than nausea no other significant toxicities. MRI was reviewed and [facility] tumor board with Dr. Reza and he will be arranging evaluation for surgical options. Consultation was placed to him today. We willdose reduce Adriamycin and cyclophosphamide both by 20% due to her neutropenia. Otherwise may proceed with chemotherapy in 2 weeks he can follow-up in 3 weeks either with myself or nurse practitioner for toxicity review. 11/12/2021: Here for cycle 2-day 8 toxicity visit on now 20% dose reduced Adriamycin/cyclophosphamide/Pembrolizumab due to neutropenia without fever last cycle. Persistent fatigue and nausea without mouth ulcers. No neutropenia thiscycle. The patient met with Dr. Reza and will follow-up with her at end oftherapy. She is still not decided whether she would like to proceed with lumpectomy or mastectomy plus minus reconstruction. We will coordinate 3-week follow-up toxicity visit with nurse practitioner cycle 3-day 8--no dose reduction since she does not have any significant cytopenias. Moderate complexity visit over 25 minutes for symptom review on chemotherapy, coordination with Dr. Reza of breast surgery for surgical plan. (2) Chemotherapy-induced neutropenia Neutropenia without fever with first cycle. Precautions given. 20% dose reduction for cycle 2 Adriamycin and cyclophosphamide as noted above--no furtherdose reductions required for cycle 3. (3) Lumbar back pain with radiculopathy affecting left lower extremity Lumbar MRI results are reviewed--degenerative disc disease but no evidence of metastatic cancer. Previously referred to Dr. Jameson Castle for his recommendations. (4) Encounter for chemotherapy management Moderate complexity visit for toxicity visit on Adriamycin/cyclophosphamide/Pembroluzumab, review evaluation by Dr. Reza of general surgery, and discussion of overall plan of care with the patient. - Chemo Plan Chemo Plan (Dose, Rate, Freq): Neoadjuvant Carboplatin/Paclitaxel/Pembrolizumab therapy on 07/22/2021; Our treatment plan will be pembrolizumab 200 mg IV every 3 weeks with weekly paclitaxel 80 mg/m? IV and q. 21 days carboplatin AUC 5 for 4 cycles. This treatment regimen is based on KEYNOTE 522 trial and is now standard of care and NCCN guidelines. --After review of her MRI from outside hospital, I repeated her breast MRI for new baseline here. 10/17/2021: Cycle 1 day 1 pembrolizumab every 3 weeks with Adriamycin and cyclophosphamide for 4 cycles. 20% dose reduction Adriamycin andcyclophosphamide for neutropenia with cycle 2. Number of Cycles: 8 Goal of Treatment: Curative - Time with Patient Time Spent with Patient (Follow Up Visit): 25 minutes Coordination of Care & Counseling Time: Greater than 50% of time spent with patient was for coordination of care (as documented) and [id number] counseling of patient and/or family. Dictated By: Kallie Chang MD DD/ [id number] Signed By: <Electronically signed by MD Kallie Chang> 11/13/21 1534 [facility] Work Phone: [phone] 405-767704-06-2022 Progress note Author Kallie Chang [facility] October 22, 2021 4:22pm Note Date/Time October 22, 2021 10:2 8am [facility] [place] [address] Hem/Onc Follow Up Note - OP Signed Patient: Tenisha Hancock MR#: [id number] : 1975 Acct:[id number] Age/Sex: 46 / F Type: REG RCR Copies to: DO Eliel Fernandez MD~ Subjective Date/Time of Service: Date of Service: 10/22/2021 Time of Service: 10:28 Chief Complaint: Patient is here today for 2 week follow up visit for breast cancer and go over echo and toxicity check. She has been having problems with nausea and headaches HPI: 10/22/2021: Rachel is here for toxicity check after cycle 1 of Adriamycin/Cytoxan/Pembrolizumab 1 week ago. She notes that she had increased fatigue and persistent nausea and her total white blood cell count is 1200 with ANC 100. No fever, chills, night sweats, or signs or symptoms of infection. Wediscussed dose reduction by 20% due to her neutropenia. Baseline echocardiogramprior to Adriamycin and Cytoxan was 55 to 60%. MRI of the breast was reviewed in comparison to her initial MRI in May 2022 that shows some progression ofher primary breast mass and one of the satellite lesions is no longer identified. Patient does note that after her breast MRI she did undergo placement of clip at the site of her prior lesions. She wanted to transfer her care for surgical evaluation by Dr. Reza and I will place consult for him to evaluate her to plan surgery following 3 more cycles of Adriamycin/Cytoxan/Pembroluzumab. Otherwise she will follow-up for next cycle of chemotherapy in 2 weeks and toxicity visit the following week after 20% dose reduction of both Adriamycin and Cytoxan. 10/08/2021: Rachel is here for followup after completing 4 cycles of neoadjuvant carboplatin AUC 5 with weekly paclitaxel 80 mg/m? and every 3-week Pembroluzumab 200 mg. She is on her last dose of 12-week paclitaxel today. We ordered an MRI on her and reviewed the images with her in clinic today but finalreport is still pending radiology read. I reviewed her case with breast medical oncologist Dr. Vinh Bucio who agreed that patient should likely continue on Adriamycin/Cytoxan/Pembrolizumab every 3 weeks for 4 more cycles as previously written. She had a baseline echocardiogram in May but we will repeat this prior to starting her next round of chemo in 1 week. Her next follow-up for toxicity visit will be cycle 1 week 2 and we will coordinate surgery evaluation based on her breast MRI to review her response to initial therapy. Symptoms are otherwise stable on weekly paclitaxel with minimal neuropathy. I contacted radiology and breast MRI should be read early next week. 09/24/2021: Rachel is a 46-year-old lady who is currently cycle 4-day 1 for neoadjuvant carboplatin AUC 5 (dose adjusted for adjusted body weight), weekly paclitaxel 80 mg/m?, and every 3-week Pembrolizumab 200 mg. She has tolerated chemotherapy reasonably well with nausea and IBS symptoms but she has not had any significant neutropenia. She has not noticed any clinical difference in herbreast exam, although in comparison to prior notes there is a 9 discrete area onexam 3 to 4 cm of thickening in the right 10:00 to 11:00 area. There is no skindimpling or nipple discharge or retraction. I do not feel any palpable masses in the axilla. Although the patient previously saw Dr. Red at diagnosis, she is uncertain of the plan for surgery. Since she had negative genetic testing it is unlikely that she will have bilateral mastectomy and reconstruction, however we can coordinate her evaluation by surgery locally if shewishes. --Otherwise we decided to proceed with her fourth cycle of carboplatin/paclitaxel/Pembrolizumab today. She had a baseline MRI and I will schedule repeat MRI after her fourth cycle and reevaluate her response to disease. Originally Dr. Phoenix had consented her to proceed with Adriamycin and Cytoxan with Pembrolizumab for 4 more cycles following her carboplatin/paclitaxel/Pembrolizumab. I will review this with tertiary breast medical oncologist Dr. Vinh Bucio to determine whether she should proceed with further therapy or be evaluated for surgery. Patient will follow up with me in approximately 2 weeks after her MRI to review subsequent plan of therapy. Previous notes from Dr. Phoenix, last seen 08/18/2021: Tenisha presents August 20, 2021 for cycle 2, day 7 of neoadjuvant chemotherapy for triple negative breast cancer. She does have some progressive alopecia. No nausea vomiting diarrhea. The breast mass in the right breast is not as evidence with deep palpation. Youcan still feel it but it appears to be smaller somewhat. In the right axilla there is a very small pinpoint hard nodule fairly superficial. Her tolerance to therapy to date has been overall good. BRCA testing was done through [employer] and is negative. She does have left foot numbness. MRI was done of the lumbar spine and does show multiple areas of degenerative disc disease. The patient has a known history of problem both in her lumbar spine and what appears in her cervical spine. I will refer her to Dr. Castle for consideration of kyphoplasty or other. I willdefer to his impression and recommendations. MOHEGAN: This is a 46 year old female, recently diagnosed with triple negative right breast cancer; currently undergoing neoadjuvant pembrolizumab, carboplatin AUC 4and weekly paclitaxel x6 cycles, which commenced: 07/22/2021. This is a 46-year-old female who works at [employer] with triple negative breast cancer, referred for neoadjuvant chemotherapy. Mammogramon on April 22, 2021 showed 3 new focal masses with the largest measuring 2 cm in size in the right breast. 2 additional lesions measuring 1 cm and a second 0.9 cm were also seen. The patient was referred for biopsy. Needle biopsy showed triple negative breast cancer, ER negative, LA negative, and H ER 2 -. The patient was referred to Dr. Ismael Red for [id number] which she has had placed. [facility]. Because of insurance reasons, she will be getting her treatment here at [facility]. She has had echocardiography as well. According the patient an MRI was obtained prior to neoadjuvant therapy while she was at [facility] we are requesting this prior study. She does have a palpable breast mass. It is in the lower mid quadrant of the right breast. Mammogram on on April 22, 2021 showed 3 new focal masses with the largest measuring 2 cm in size in the right breast. 2 additional lesions measuring 1 cmand a second 0.9 cm were also seen. The patient was referred for biopsy. Needle biopsy showed triple negative breast cancer, ER negative, LA negative, and HER 2 -. The patient was referred to Dr. Ismael Red for [id number] which she has had placed. She [facility]. Because of insurance reasons, she will be getting her treatment here at [facility]. She has had echocardiography as well. PET/CT scan was denied by insurance and she underwent CT scan of the chest/abdomen/pelvis on 07/16/2021 which showed no obvious evidence of distant metastatic disease. As noted above, Cycle 1, Day 1 (Carboplatin/Paclitaxel/Pembrolizumab) commenced 07/22/2021 and this was well tolerated. The patient went home that evening and began to feel flushed, general malaise, etc. She subsequently tested positive for COVID - 19 per PCR the following day, 07/23/2021. Her symptoms were quite mild; however, next cycle of chemotherapy was pushed out 2 days and she is here today for Cycle 1, Day 8 of single agent Paclitaxel. She does have a palpable breast mass in the lower mid quadrant of the right breast; she was concerned about a lump under her right axilla but upon exam wehad trouble locating a discrete nodule or lymph node. Otherwise, her only complaint is continued low back pain with radiculopathy involving the left groin/hip and left lower extremity with associated numbness in left foot. She has known neuroma of the left foot and was in the process of being worked up by pain management (Dr. Monique) for lumbar pain; radiculopathy. - Summary of Therapies Summary of Therapies: Neoadjuvant Carboplatin AUC 5-day 1, Pembrolizumab 200 mg day 1, Paclitaxel 80 mg meter squared weekly each 21-day cycle for planned 4 cycles: started Cycle 1,Day 1: 07/22/2021, cycle 4 09/24/2021 --Plan 10/15/2021: Start Pembrolizumab 200 mg day 1, doxorubicin 60 mg/m? day 1,and cyclophosphamide 600 mg/m? day 1 every 21 days x 4 cycles followed by adjuvant Pembrolizumab 200 mg IV every 21 days x 9 cycles --Original breast MRI obtained from [facility] from May 2021, follow-up breast MRI performed 10/07/2021 for initial response to therapy. Patient requested an opinion from Dr. Reza for planning breast surgery options based on MRI (she does note that prior biopsy clips were placed after her original MRI for further neoadjuvant therapy). ROS Details: All systems reviewed & no additional complaints except as documented Subjective/ROS - Narrative: CONSTITUTIONAL: Moderate increased fatigue, negative for fever or night sweats. Still able to perform activities of daily living. HEAD AND NECK: Negative for changes in hearing and vision. Negative for mouth ulcers, nasal congestion and nasal drainage. BREASTS: Unchanged right UOQ fullness without skin changes. PULMONARY: Negative for chest pain, cough and dyspnea. CARDIOVASCULAR: Negative for claudication and irregular heartbeat/palpitations. GASTROINTESTINAL: Negative for abdominal pain, constipation, decreased appetite,diarrhea, noted to have increased nausea without vomiting with first cycle of ACPembroluzumab. GENITOURINARY: Negative for dysuria and hematuria. ENDOCRINE: Negative for cold intolerance and heat intolerance. CENTRAL NERVOUS SYSTEM: Negative for gait disturbance and headache. PSYCHIATRIC: Negative for anxiety or depression. DERMATOLOGICAL: Negative for pruritus and rash. Negative for suspicious skin lesions. MUSCULOSKELETAL: Stable lumbar back pain and no bone/joint symptoms. HEMATOLOGICAL: Negative for bleeding and easy bruising. Negative for history of transfusion or thromboembolic disease. Laboratories with her cycle AC Pembroluzumab shows neutropenia without fever. ALLERGY: Negative for environmental allergies and food allergies. PMFSH - History Attestation statement: The following information was validated with the patient. Source: Old Records Reviewed - Medical History Medical History: Medical History (Last Reviewed 10/22/21 @ 16:12 by Kallie Chang MD) Arthritis COVID-19 Headache High blood cholesterol - Surgical History Surgical History: Surgical History (Last Reviewed 10/22/21 @ 16:12 by Kallie Chang MD) History of breast biopsy right 05/26/2021 History of carpal tunnel release History of cholecystectomy History of foot surgery right - Family History Family History: Family History (Last Reviewed 10/22/21 @ 16:12 by Kallie Chang MD) Brother Lung cancer Father Cancer Mother COPD (chronic obstructive pulmonary disease) - Social History Smoking Status: Former smoker Tobacco Type: cigarettes Substance Use Type: None Home Medications & Allergies Allergies No Known Allergies Allergy (Verified 10/22/21 10:19) Home Medications fumplgw-gnykrbwudkdtt-tgeaphsl 250 mg-250 mg-65 mg tablet (Excedrin Migraine) 1 tab PO Q4-6H PRN 07/08/21 [History Confirmed 10/22/21] citalopram 20 mg tablet 20 mg PO DAILY 07/08/21 [History Confirmed 10/22/21] diclofenac sodium 50 mg tablet,delayed release 50 mg PO TID 07/08/21 [History Confirmed 10/22/21] omeprazole 20 mg capsule,delayed release 20 mg PO DAILY 07/08/21 [History Confirmed 10/22/21] ondansetron HCl 8 mg tablet 8 mg PO Q8H PRN #30 tab 07/08/21 [Rx Confirmed 10/22/21] prochlorperazine maleate 10 mg tablet (Compazine) 10 mg PO Q6H PRN #30 tab 07/08/21 [Rx Confirmed 10/22/21] lorazepam 1 mg tablet 1 mg PO Q6H PRN 14 Days #56 tab 09/04/21 [Rx Confirmed 10/22/21] dexamethasone 4 mg tablet 8 mg PO BID #6 tab 09/17/21 [Rx Confirmed 10/22/21] Objective - Height/Weight Height/Weight: Height 5 ft 3 in Weight 91.626 kg BSA for Today's Weight 2.03 - Vital Signs Vital Signs: 10/22/21 10:20 Temperature 98.0 F Pulse Rate [Left Brachial] 84 Respiratory Rate 16 Blood Pressure [Left Arm] 101/70 02 Sat by Pulse Oximetry 99 - Pain Left Shoulder Pain Intensity: 5 Lower Back Pain Intensity: 4 Generalized Left Pain Intensity: 5 Physical Exam Narrative: GENERAL: Alert, pleasant, no acute distress. HEENT: Oral mucosa is pink/moist; no lesions or exudate. Neck supple without adenopathy or thyromegaly. BREAST: Right breast reveals palpable mass 2 cm area of fullness without discrete margins in the subareolar region (previously documented as ~ 2-3 cm in size near the inferior/medial aspect of the breast); unchanged per patient. No supraclavicular/infraclavicular or axillary lymphadenopathy. Left breast withoutmasses, left upper chest [id number] in place and nontender. No axillary fullness seen, no skin changes or nipple discharge/deviation of left breast. HEART: RRR; no murmurs/rubs or gallops; S1 and S2 normal. No edema. LUNGS: CTA bilaterally; no wheezes or crackles. Normal respiratory effort. ABDOMEN: Soft, non tender. BS present x 4 quadrants. No HSM. INTEGUMENTARY: Warm, dry; no skin rashes. MUSCULOSKELETAL: Normal strength 5/5 in extremities x 4; no weakness; left groinpain. LYMPHATICS: No lymphadenopathy appreciated. NEUROLOGICAL: Grossly intact, patient is alert and oriented x 3; stable gait. Lumbar spine pain with referred pain in the left gluteal area and around the left groin; with radiculopathy of left lower extremity--patient is ambulatory and pain is stable. - ECOG Performance Status ECOG Score: 1 Results - Labs Labs: Diagram of Most Recent CBC and CMP 10/22/21 09:40 10/22/21 09:40 Labs - Last 7 Days 10/22/21 09:40: PHA Creatinine Clear 133.76, Sodium 134 L, Potassium 4.0, Chloride 100, Carbon Dioxide 25.1, BUN 9, Creatinine 0.58, Est GFR ( Amer) > 60, Est GFR (Non-Af Amer) > 60, Glucose 122 H, Calcium 8.8, Total Bilirubin 0.7, AST 15, ALT 23, Alkaline Phosphatase 81, Total Protein 6.0 L, Albumin 3.1 L, Globulin 2.9, Albumin/Globulin Ratio 1.1 10/22/21 09:40: Corrected WBC 1.2 L, Uncorrected WBC Count 1.2 L, RBC 2.49 L, Hgb 8.6 L, Hct 25.6 L, MCV 102.5 H, MCH 34.5 H, MCHC 33.7, RDW 16.7 H, Plt [id number] L, MPV 7.1, Nucleated RBC % (auto) 0.3 10/14/21 15:20: ACTH 12.7 - Impressions MR/MR breast BI wo/w con CAD IMPRESSION: 1. Interval decrease in size of the dominant mass at the 6:00 position of the right breast, middle depth now measuring 1.5 cm in AP, 1.4 cm in the transverse and 1.0 cm no critical dimensions when compared to the prior outside breast MRI consistent with response to therapy. In addition, one of the previously identified satellite nodules appears to have resolved with one remaining Satellite nodule less conspicuous on today's study but still appears to be present just anterior to the dominant lesion measuring 5 mm in AP, 5 mm in the transverse and 4 mm in the craniocaudal dimensions. This also appears smaller compared to the prior MRI study. Findings are consistent with response to therapy. No new areas of malignancy are seen within either breast. No MRI evidence of metastatic disease. RESULT CODE: 6 DENSITY CODE: 2 FOLLOW UP: IMM Impression dictated by: Jamari Guzman Jr., DPeyton10/13/2021 3:12 PM - Other Results Results/Comments: Date of Service: 10/14/21 [facility] transthoracic: monitoring for chemotherapy Interpretation Summary The left ventricular size, thickness and function are normal Ejection Fraction = 55-60%. There is trace mitral regurgitation. There is trace tricuspid regurgitation. Procedure/Quality: A two-dimensional transthoracic echocardiogram with color flow and Doppler was performed. The study was technically good in quality. Left Ventricle: The left ventricular size, thickness and function are normal. Ejection Fraction = 55-60%. No left ventricular thrombus or mass is seen. Left Atrium: The left atrium appears normal in size. The atrial septum appears normal. Right Atrium: The right atrium appears normal in size. Right Ventricle: The right ventricular size, thickness and function are normal. Aortic Valve: The aortic valve is normal in structure and function. Mitral Valve: The mitral valve leaflets appear normal. There is no evidence of stenosis, fluttering, or prolapse. There is trace mitral regurgitation. Tricuspid Valve: The tricuspid valve is normal. There is trace tricuspid regurgitation. Pulmonic Valve: The pulmonic valve is not well visualized. Arteries: The aortic root is normal size. The aortic arch was visualized and no abnormalities were seen. Pericardium/Pleura: No pericardial effusion seen. There is no pleural effusion. IVC/Hepatic Viens: The inferior vena cava is normal in size, with a normal collapsibility index. Assessment and Plan - TNM Staging Staging: Stage II right breast invasive ductal carcinoma grade 3, estrogen receptor 0%, progesterone receptor 0%, HER-2 negative by IHC Clinical stage II with baseline tumor at least 2 or 2.5 cm (awaiting prior MRI results)--we will continue neoadjuvant therapy as previously written with AC plus pembrolizumab (1) Breast cancer Qualifiers: Breast location: overlapping sites of breast Patient sex: female Laterality: right Patient is a 46-year-old female presenting with 3 discernible masses by mammography (04/22/2021) with needle biopsy confirming triple negative breast cancer. She was initially see in consultation by Dr. Smith at [facility] in [place], [place]; however, due to insurance reasons the [facility]. In reviewing notes from her prior physician from 06/20/2021 she had 3 focal nodules with largest measuring 2 x 1.8 cm 6 o'clock position, 2 additional lesions measuring 1 x 0.7 cm and another 0.9 x 0.6 cm. BI-RADS spot compression view right breast showed persistent 2.4 x 2.2 cm partially obscured round mass with pleomorphic calcifications. She did have breast MRI prior to initiation of neoadjuvant therapy which I do not have records from this from [facility] in [place]. I am requesting this to evaluate her baseline study since transfer of care from Dr. Phoenix to myself. She also had reported normal baseline echo in May 2021. She commenced neoadjuvant Carboplatin/Paclitaxel/Pembrolizumab therapy on 07/22/2021; Our treatment plan will be pembrolizumab 200 mg IV every 3 weeks with weekly paclitaxel 80 mg/m? IV and q. 21 days carboplatin AUC 5 for 4 cycles. This treatment regimen is based on KEYNOTE 522 trial and is now standard of careand NCCN guidelines. After review of her MRI from outside hospital, I will repeat her breast MRI for new baseline here. If stable to responding disease wemay continue prior plan for followed by pembrolizumab every 3 weeks with Adriamycin and cyclophosphamide for 4 cycles. The patient would like reassessment by general surgery for surgical plan and we will determine whether she proceeds with mastectomy or lumpectomy based on his results. Baseline genetic testing returned negative from prior physicians at [facility]. BRCA testing negative Follow-up September is cycle 4 -day 1. Tolerance is overall good-- Proceed with cycle 4 with breast MRI prior to 2-week follow-up in comparison to baseline MRI. This will be useful in surgical planning. I am discussing her case with tertiary breast oncology Dr. Vinh Bucio to see if he concurs withthis plan. If decision is made to commence AC Pembroluzumab we will repeat her echocardiogram prior to this and obtain her prior echo results. --Physical exam may be showing some evidence of response with the lump in the right breast being not as conspicuous as compared to prior notes although it is unclear to evaluate by exam, therefore MRI is ordered. --My plan at this time will be to press on and continue our chemotherapy per plan. I will see her in 2 weeks. 10/08/2021: Patient is here for her last paclitaxel prior to changing agents for neoadjuvant therapy to Adriamycin/cyclophosphamide/pembrolizumab. She is due for follow-up echocardiogram prior to starting anthracycline. She had discussedpotentially changing surgeons to Dr. Reza and I contacted him regarding breast MRI for surgical planning. We will review her prior MRI from [facility] in May 2021 in comparison to most recent MRI (report pending). Of note outside MRI noted no biopsy clips in place and we may need to rebiopsy to place clips at sites of residual tumor masses prior to continuing further neoadjuvant therapy. We will coordinate a time for him to meet with the patientto discuss surgical options of lumpectomy versus mastectomy. Patient will commence her Adriamycin/cyclophosphamide/Pembrolizumab at 10/15/2021 and I will follow-up with her in early October for toxicity visit for tolerance. 10/22/2021: Change to Adriamycin/cyclophosphamide/Pembroluzumab with neutropenia noted but no fever. Echocardiogram at baseline was 55 to 60%. Other than nausea no other significant toxicities. MRI was reviewed and [facility] tumor board with Dr. Reza and he will be arranging evaluation for surgical options. Consultation was placed to him today. We willdose reduce Adriamycin and cyclophosphamide both by 20% due to her neutropenia. Otherwise may proceed with chemotherapy in 2 weeks he can follow-up in 3 weeks either with myself or nurse practitioner for toxicity review. Moderate complexity visit over 35 minutes for symptom review on chemotherapy, evaluation of breast MRI and echocardiogram, coordination with Dr. Reza of breast surgery for surgical plan. (2) Chemotherapy-induced neutropenia Neutropenia without fever. Precautions given. Dose reduction for cycle 2 Adriamycin and cyclophosphamide as noted above. (3) Lumbar back pain with radiculopathy affecting left lower extremity Lumbar MRI results are reviewed--degenerative disc disease but no evidence of metastatic cancer. Previously referred to Dr. Jameson Castle for his recommendations. (4) Encounter for chemotherapy management Moderate complexity visit for discussion and [facility] tumor board, review of MRI and echocardiogram, reevaluation by Dr. Reza of general surgery, and discussion of overall plan of care with the patient. - Chemo Plan Chemo Plan (Dose, Rate, Freq): Neoadjuvant Carboplatin/Paclitaxel/Pembrolizumab therapy on 07/22/2021; Our treatment plan will be pembrolizumab 200 mg IV every 3 weeks with weekly paclitaxel 80 mg/m? IV and q. 21 days carboplatin AUC 5 for 4 cycles. This treatment regimen is based on KEYNOTE 522 trial and is now standard of care and NCCN guidelines. --After review of her MRI from outside hospital, I repeated her breast MRI for new baseline here. 10/17/2021: Cycle 1 day 1 pembrolizumab every 3 weeks with Adriamycin and cyclophosphamide for 4 cycles. 20% dose reduction Adriamycin andcyclophosphamide for neutropenia with cycle 2. Number of Cycles: 8 Goal of Treatment: Curative - Time with Patient Time Spent with Patient (Follow Up Visit): 35 minutes Coordination of Care & Counseling Time: Greater than 50% of time spent with patient was for coordination of care (as documented) and [id number] counseling of patient and/or family. Dictated By: Kallie Chang MD DD/ [id number] Signed By: <Electronically signed by MD Kallie Chang> 10/22/21 0129 [facility] Work Phone: [phone] Progress note Author Kallie Chang [facility] October 09, 2021 2:48pm Note Date/Time October 08, 2021 11: 37am [facility] at [address] [address] Hem/Onc Follow Up Note - OP Signed Patient: Tenisha Hancock MR#: [id number] : 1975 Acct:[id number] Age/Sex: 46 / F Type: REG RCR Copies to: DO Eliel Fernandez MD~ Subjective Date/Time of Service: Date of Service: 10/08/2021 Time of Service: 11:36 Chief Complaint: Patient is here today for 2 week follow up visit for breast cancer and go over labs and breast biopsy MRI. HPI: 10/08/2021: Rachel is here for followup after completing 4 cycles of neoadjuvant carboplatin AUC 5 with weekly paclitaxel 80 mg/m? and every 3-week Pembroluzumab 200 mg. She is on her last dose of 12-week paclitaxel today. We ordered an MRI on her and reviewed the images with her in clinic today but finalreport is still pending radiology read. I reviewed her case with breast medical oncologist Dr. Vinh Bucio who agreed that patient should likely continue on Adriamycin/Cytoxan/Pembrolizumab every 3 weeks for 4 more cycles as previously written. She had a baseline echocardiogram in May but we will repeat this prior to starting her next round of chemo in 1 week. Her next follow-up for toxicity visit will be cycle 1 week 2 and we will coordinate surgery evaluation based on her breast MRI to review her response to initial therapy. Symptoms are otherwise stable on weekly paclitaxel with minimal neuropathy. I contacted radiology and breast MRI should be read early next week. 09/24/2021: Rachel is a 46-year-old lady who is currently cycle 4-day 1 for neoadjuvant carboplatin AUC 5 (dose adjusted for adjusted body weight), weekly paclitaxel 80 mg/m?, and every 3-week Pembrolizumab 200 mg. She has tolerated chemotherapy reasonably well with nausea and IBS symptoms but she has not had any significant neutropenia. She has not noticed any clinical difference in herbreast exam, although in comparison to prior notes there is a 9 discrete area onexam 3 to 4 cm of thickening in the right 10:00 to 11:00 area. There is no skindimpling or nipple discharge or retraction. I do not feel any palpable masses in the axilla. Although the patient previously saw Dr. Red at diagnosis, she is uncertain of the plan for surgery. Since she had negative genetic testing it is unlikely that she will have bilateral mastectomy and reconstruction, however we can coordinate her evaluation by surgery locally if she wishes. --Otherwise we decided to proceed with her fourth cycle of carboplatin/paclitaxel/Pembrolizumab today. She had a baseline MRI and I will schedule repeat MRI after her fourth cycle and reevaluate her response to disease. Originally Dr. Phoenix had consented her to proceed with Adriamycin and Cytoxan with Pembrolizumab for 4 more cycles following her carboplatin/paclitaxel/Pembrolizumab. I will review this with tertiary breast medical oncologist Dr. Vinh Bucio to determine whether she should proceed with further therapy or be evaluated for surgery. Patient will follow up with me in approximately 2 weeks after her MRI to review subsequent plan of therapy. Previous notes from Dr. Phoenix, last seen 08/18/2021: Tenisha presents August 20, 2021 for cycle 2, day 7 of neoadjuvant chemotherapy for triple negative breast cancer. She does have some progressive alopecia. No nausea vomiting diarrhea. The breast mass in the right breast is not as evidence with deep palpation. Youcan still feel it but it appears to be smaller somewhat. In the right axilla there is a very small pinpoint hard nodule fairly superficial. Her tolerance to therapy to date has been overall good. BRCA testing was done through [employer] and is negative. She does have left foot numbness. MRI was done of the lumbar spine and does show multiple areas of degenerative disc disease. The patient has a known history of problem both in her lumbar spine and what appears in her cervical spine. I will refer her to Dr. Castle for consideration of kyphoplasty or other. I willdefer to his impression and recommendations. MOHEGAN: This is a 46 year old female, recently diagnosed with triple negative right breast cancer; currently undergoing neoadjuvant pembrolizumab, carboplatin AUC 4and weekly paclitaxel x6 cycles, which commenced: 07/22/2021. This is a 46-year-old female who works at [employer] with triple negative breast cancer, referred for neoadjuvant chemotherapy. Mammogramon on April 22, 2021 showed 3 new focal masses with the largest measuring 2 cm in size in the right breast. 2 additional lesions measuring 1 cm and a second 0.9 cm were also seen. The patient was referred for biopsy. Needle biopsy showed triple negative breast cancer, ER negative, LA negative, and H ER 2 -. The patient was referred to Dr. Ismael Red for Evasth-s-Mlpw which she has had placed. She has seen my colleague Dr. Smith at the [facility] recommended neoadjuvant chemotherapy and immunotherapy. Because of insurance reasons, she will be getting her treatment here at [facility]. She has had echocardiography as well. According the patient an MRI was obtained prior to neoadjuvant therapy while she was at [facility] we are requesting this prior study. She does have a palpable breast mass. It is in the lower mid quadrant of the right breast. Mammogram on on April 22, 2021 showed 3 new focal masses with the largest measuring 2 cm in size in the right breast. 2 additional lesions measuring 1 cmand a second 0.9 cm were also seen. The patient was referred for biopsy. Needle biopsy showed triple negative breast cancer, ER negative, LA negative, and HER 2 -. The patient was referred to Dr. Ismael Red for [id number]-[id number] which she has had placed. She has seen my colleague Dr. Smith at the [facility] recommended neoadjuvant chemotherapy and immunotherapy. Because of insurance reasons, she will be getting her treatment here at [facility]. She has had echocardiography as well. PET/CT scan was denied by insurance and she underwent CT scan of the chest/abdomen/pelvis on 07/16/2021 which showed no obvious evidence of distant metastatic disease. As noted above, Cycle 1, Day 1 (Carboplatin/Paclitaxel/Pembrolizumab) commenced 07/22/2021 and this was well tolerated. The patient went home that evening and began to feel flushed, general malaise, etc. She subsequently tested positive for COVID - 19 per PCR the following day, 07/23/2021. Her symptoms were quite mild; however, next cycle of chemotherapy was pushed out 2 days and she is here today for Cycle 1, Day 8 of single agent Paclitaxel. She does have a palpable breast mass in the lower mid quadrant of the right breast; she was concerned about a lump under her right axilla but upon exam wehad trouble locating a discrete nodule or lymph node. Otherwise, her only complaint is continued low back pain with radiculopathy involving the left groin/hip and left lower extremity with associated numbness in left foot. She has known neuroma of the left foot and was in the process of being worked up by pain management (Dr. Monique) for lumbar pain; radiculopathy. - Summary of Therapies Summary of Therapies: Neoadjuvant Carboplatin AUC 5-day 1, Pembrolizumab 200 mg day 1, Paclitaxel 80 mg meter squared weekly each 21-day cycle for planned 4 cycles: started Cycle 1,Day 1: 07/22/2021, cycle 4 09/24/2021 --Plan 10/15/2021: Start Pembrolizumab 200 mg day 1, doxorubicin 60 mg/m? day 1,and cyclophosphamide 600 mg/m? day 1 every 21 days x 4 cycles followed by adjuvant Pembrolizumab 200 mg IV every 21 days x 9 cycles --Original breast MRI obtained from [facility] from May 2021, follow-up breast MRI performed 10/07/2021 for initial response to therapy. Patient was requesting an opinion from Dr. Reza for planning breast surgeryoptions based on MRI (if no clips in place we may need to arrange for ultrasound-guided biopsy for placement of biopsy clips for further neoadjuvant therapy). ROS Details: All systems reviewed & no additional complaints except as documented Subjective/ROS - Narrative: CONSTITUTIONAL: Stable mild fatigue, negative for fever or night sweats. HEAD AND NECK: Negative for changes in hearing and vision. Negative for mouth ulcers, nasal congestion and nasal drainage. BREASTS: Unchanged right UOQ fullness without skin changes. PULMONARY: Negative for chest pain, cough and dyspnea. CARDIOVASCULAR: Negative for claudication and irregular heartbeat/palpitations. GASTROINTESTINAL: Negative for abdominal pain, constipation, decreased appetite,diarrhea, controlled nausea without vomiting. GENITOURINARY: Negative for dysuria and hematuria. ENDOCRINE: Negative for cold intolerance and heat intolerance. CENTRAL NERVOUS SYSTEM: Negative for gait disturbance and headache. PSYCHIATRIC: Negative for anxiety or depression. DERMATOLOGICAL: Negative for pruritus and rash. Negative for suspicious skin lesions. MUSCULOSKELETAL: Stable lumbar back pain and no bone/joint symptoms. HEMATOLOGICAL: Negative for bleeding and easy bruising. Negative for history of transfusion or thromboembolic disease ALLERGY: Negative for environmental allergies and food allergies. PMFSH - History Attestation statement: The following information was validated with the patient. Source: Old Records Reviewed - Medical History Medical History: Medical History (Last Reviewed 10/09/21 @ 14:14 by Kallie Chang MD) Arthritis COVID-19 Headache High blood cholesterol - Surgical History Surgical History: Surgical History (Last Reviewed 10/09/21 @ 14:14 by Kallie Chang MD) History of breast biopsy right 05/26/2021 History of carpal tunnel release History of cholecystectomy History of foot surgery right - Family History Family History: Family History (Last Reviewed 10/09/21 @ 14:14 by Kallie Chang MD) Brother Lung cancer Father Cancer Mother COPD (chronic obstructive pulmonary disease) - Social History Smoking Status: Former smoker Tobacco Type: cigarettes Substance Use Type: None Home Medications & Allergies Allergies No Known Allergies Allergy (Verified 10/08/21 11:31) Home Medications prochlorperazine maleate 10 mg tablet 10 mg PO Q6H PRN 07/03/21 [History Confirmed 10/08/21] znwxkcd-flibottofdowe-zrnhvxez 250 mg-250 mg-65 mg tablet (Excedrin Migraine) 1 tab PO Q4-6H PRN 07/08/21 [History Confirmed 10/08/21] citalopram 20 mg tablet 20 mg PO DAILY 07/08/21 [History Confirmed 10/08/21] diclofenac sodium 50 mg tablet,delayed release 50 mg PO TID 07/08/21 [History Confirmed 10/08/21] omeprazole 20 mg capsule,delayed release 20 mg PO DAILY 07/08/21 [History Confirmed 10/08/21] ondansetron HCl 8 mg tablet 8 mg PO Q8H PRN #30 tab 07/08/21 [Rx Confirmed 10/08/21] prochlorperazine maleate 10 mg tablet (Compazine) 10 mg PO Q6H PRN #30 tab 07/08/21 [Rx Confirmed 10/08/21] lorazepam 1 mg tablet 1 mg PO Q6H PRN 14 Days #56 tab 09/04/21 [Rx Confirmed 10/08/21] dexamethasone 4 mg tablet 8 mg PO BID #6 tab 09/17/21 [Rx Confirmed 10/08/21] Objective - Height/Weight Height/Weight: Height 5 ft 3 in Weight 91.626 kg BSA for Today's Weight 2.02 - Vital Signs Vital Signs: 10/08/21 11:31 Temperature 98.0 F Pulse Rate [Left Brachial] 77 Respiratory Rate 16 Blood Pressure [Left Arm] 119/79 02 Sat by Pulse Oximetry 98 - Pain Left Shoulder Pain Intensity: 5 Lower Back Pain Intensity: 4 Generalized Left Pain Intensity: 5 Physical Exam Narrative: GENERAL: Alert, pleasant, no acute distress. HEENT: Oral mucosa is pink/moist; no lesions or exudate. Neck supple without adenopathy or thyromegaly. BREAST: Right breast reveals palpable mass 2 cm area of fullness (previously documented as ~ 2-3 cm in size near the inferior/medial aspect of the breast); unchanged per patient. No definitive supraclavicular/infraclavicular or axillarylymphadenopathy. Left breast without masses, left upper chest Lzovds-v-Ziuh in place and nontender. No axillary fullness seen, no skin changes or nipple discharge/deviation of left breast. HEART: RRR; no murmurs/rubs or gallops; S1 and S2 normal. No edema. LUNGS: CTA bilaterally; no wheezes or crackles. Normal respiratory effort. ABDOMEN: Soft, non tender. BS present x 4 quadrants. No HSM. INTEGUMENTARY: Warm, dry; no skin rashes. MUSCULOSKELETAL: Normal strength 5/5 in extremities x 4; no weakness; left groinpain. LYMPHATICS: No lymphadenopathy appreciated. NEUROLOGICAL: Grossly intact, patient is alert and oriented x 3; stable gait. Lumbar spine pain with referred pain in the left gluteal area and around the left groin; with radiculopathy of left lower extremity--patient is ambulatory and pain is stable. - ECOG Performance Status ECOG Score: 0 Results - Labs Labs: Diagram of Most Recent CBC and CMP 10/07/21 10:42 10/07/21 10:42 Labs - Last 7 Days 10/07/21 10:42: PHA Creatinine Clear 110.24, Sodium 136, Potassium 3.7, [id number], Carbon Dioxide 22.8, BUN 7 L, Creatinine 0.70, Est GFR ( Amer) > 60,Est GFR (Non-Af Amer) > 60, Glucose 140 H, Calcium 9.2, Total Bilirubin 0.6, AST34, ALT 53, Alkaline Phosphatase 77, Total Protein 6.6, Albumin 3.6, Globulin 3.0, Albumin/Globulin Ratio 1.2 10/07/21 10:42: Corrected WBC 6.1, Uncorrected WBC Count 6.1, RBC 2.94 L, Hgb 10.0 L, Hct 29.0 L, MCV 98.9, MCH 34.1, MCHC 34.5, RDW 18.3 H, Plt Count 327, MPV 7.4, Neut % (Auto) 65.5, Lymph % (Auto) 30.1, [place] % (Auto) 3.7, Eos % (Auto) 0.4, Baso % (Auto) 0.3, Neut # (Auto) 4.0, Lymph # (Auto) 1.8, [place] # (Auto) 0.2, Eos # (Auto) 0.0, Baso # (Auto) 0.0, Nucleated RBC % (auto) 0.2 - Impressions Breast MRI reviewed with patient but report still pending Assessment and Plan - TNM Staging Staging: Stage II right breast invasive ductal carcinoma grade 3, estrogen receptor 0%, progesterone receptor 0%, HER-2 negative by IHC Clinical stage II with baseline tumor at least 2 or 2.5 cm (awaiting prior MRI results)--we will continue neoadjuvant therapy as previously written with AC plus pembrolizumab (1) Breast cancer Qualifiers: Breast location: overlapping sites of breast Patient sex: female Laterality: right Patient is a 46-year-old female presenting with 3 discernible masses by mammography (04/22/2021) with needle biopsy confirming triple negative breast cancer. She was initially see in consultation by Dr. Smith at [facility] in [place], [place]; however, due to insurance reasons the [facility]. In reviewing notes from her prior physician from 06/20/2021 she had 3 focal nodules with largest measuring 2 x 1.8 cm 6 o'clock position, 2 additional lesions measuring 1 x 0.7 cm and another 0.9 x 0.6 cm. BI-RADS spot compression view right breast showed persistent 2.4 x 2.2 cm partially obscured round mass with pleomorphic calcifications. She did have breast MRI prior to initiation of neoadjuvant therapy which I do not have records from this from [facility] in [place]. I am requesting this to evaluate her baseline study since transfer of care from Dr. Phoenix to myself. She also had reported normal baseline echo in May 2021. She commenced neoadjuvant Carboplatin/Paclitaxel/Pembrolizumab therapy on 07/22/2021; Our treatment plan will be pembrolizumab 200 mg IV every 3 weeks with weekly paclitaxel 80 mg/m? IV and q. 21 days carboplatin AUC 5 for 4 cycles. This treatment regimen is based on KEYNOTE 522 trial and is now standard of careand NCCN guidelines. After review of her MRI from outside hospital, I will repeat her breast MRI for new baseline here. If stable to responding disease wemay continue prior plan for followed by pembrolizumab every 3 weeks with Adriamycin and cyclophosphamide for 4 cycles. The patient would like reassessment by general surgery for surgical plan and we will determine whether she proceeds with mastectomy or lumpectomy based on his results. Baseline genetic testing returned negative from prior physicians at [facility]. BRCA testing negative Follow-up September is cycle 4 -day 1. Tolerance is overall good-- Proceed with cycle 4 with breast MRI prior to 2-week follow-up in comparison to baseline MRI. This will be useful in surgical planning. I am discussing her case with tertiary breast oncology Dr. Vinh Bucio to see if he concurs withthis plan. If decision is made to commence AC Pembroluzumab we will repeat her echocardiogram prior to this and obtain her prior echo results. --Physical exam may be showing some evidence of response with the lump in the right breast being not as conspicuous as compared to prior notes although it is unclear to evaluate by exam, therefore MRI is ordered. --My plan at this time will be to press on and continue our chemotherapy per plan. I will see her in 2 weeks. 10/08/2021: Patient is here for her last paclitaxel prior to changing agents for neoadjuvant therapy to Adriamycin/cyclophosphamide/pembrolizumab. She is due for follow-up echocardiogram prior to starting anthracycline. She had discussedpotentially changing surgeons to Dr. Reza and I contacted him regarding breast MRI for surgical planning. We will review her prior MRI from [facility] in May 2021 in comparison to most recent MRI (report pending). Of note outside MRI noted no biopsy clips in place and we may need to rebiopsy to place clips at sites of residual tumor masses prior to continuing further neoadjuvant therapy. We will coordinate a time for him to meet with the patientto discuss surgical options of lumpectomy versus mastectomy. Patient will commence her Adriamycin/cyclophosphamide/Pembroluzumab at 10/15/2021 and I will follow-up with her in early October for toxicity visit for tolerance. High complexity visit over 45 minutes for patient counseling and review of extensive prior records including prior MRI, coordination with Dr. Reza of breast surgery for surgical plan. (2) Lumbar back pain with radiculopathy affecting left lower extremity Lumbar MRI results are reviewed--degenerative disc disease but no evidence of metastatic cancer. Previously referred to Dr. Jameson Castle for his recommendations. (3) Encounter for chemotherapy management High complexity visit for coordination of transfer of medical oncology care, reevaluation by Dr. Reza of general surgery, obtaining outside studies and discussion of overall plan of care with the patient. - Chemo Plan Chemo Plan (Dose, Rate, Freq): Neoadjuvant Carboplatin/Paclitaxel/Pembrolizumab therapy on 07/22/2021; Our treatment plan will be pembrolizumab 200 mg IV every 3 weeks with weekly paclitaxel 80 mg/m? IV and q. 21 days carboplatin AUC 5 for 4 cycles. This treatment regimen is based on KEYNOTE 522 trial and is now standard of care and NCCN guidelines. --After review of her MRI from outside hospital, I repeated her breast MRI for new baseline here. Although report is pending, her disease appears to be stable, therefore we may continue prior plan for followed by pembrolizumab every3 weeks with Adriamycin and cyclophosphamide for 4 cycles. Number of Cycles: 8 Goal of Treatment: Curative - Time with Patient Time Spent with Patient (Follow Up Visit): 45 minutes or more Coordination of Care & Counseling Time: Greater than 50% of time spent with patient was for coordination of care (as documented) and uzdn-po-ifxp counseling of patient and/or family. Dictated By: Kallie Chang MD DD/ [id number] Signed By: <Electronically signed by MD Kallie Chang> 10/09/21 1448 [facility] Work Phone: [phone] 177-492603-09-2022 Progress note Author Kallie Chang [facility] September 24, 2021 11:25am Note Date/Time September 24, 2021 8:11 am [facility] [place] [address] Hem/Onc Follow Up Note - OP Signed Patient: Tenisha Hancock MR#: [id number] : 1975 Acct:[id number] Age/Sex: 46 / F Type: REG RCR Copies to: DO Eliel Fernandez MD Michael E Grillis, DO~ Subjective Date/Time of Service: Date of Service: 09/24/2021 Time of Service: 08:10 Chief Complaint: Patient is here today for 5 week follow up visit for breast cancer. She has outside labs to reivew. Patient has questions today HPI: 09/24/2021: Rachel is a 46-year-old lady who is currently cycle 4-day 1 for neoadjuvant carboplatin AUC 5 (dose adjusted for adjusted body weight), weekly paclitaxel 80 mg/m?, and every 3-week Pembrolizumab 200 mg. She has tolerated chemotherapy reasonably well with nausea and IBS symptoms but she has not had any significant neutropenia. She has not noticed any clinical difference in herbreast exam, although in comparison to prior notes there is a 9 discrete area onexam 3 to 4 cm of thickening in the right 10:00 to 11:00 area. There is no skindimpling or nipple discharge or retraction. I do not feel any palpable masses in the axilla. Although the patient previously saw Dr. Red at diagnosis, she is uncertain of the plan for surgery. Since she had negative genetic testing it is unlikely that she will have bilateral mastectomy and reconstruction, however we can coordinate her evaluation by surgery locally if she wishes. --Otherwise we decided to proceed with her fourth cycle of carboplatin/paclitaxel/Pembrolizumab today. She had a baseline MRI and I will schedule repeat MRI after her fourth cycle and reevaluate her response to disease. Originally Dr. Phoenix had consented her to proceed with Adriamycin and Cytoxan with Pembrolizumab for 4 more cycles following her carboplatin/paclitaxel/Pembrolizumab. I will review this with tertiary breast medical oncologist Dr. Vinh Bucio to determine whether she should proceed with further therapy or be evaluated for surgery. Patient will follow up with me in approximately 2 weeks after her MRI to review subsequent plan of therapy. Previous notes from Dr. Phoenix, last seen 08/18/2021: Tenisha presents August 20, 2021 for cycle 2, day 7 of neoadjuvant chemotherapy for triple negative breast cancer. She does have some progressive alopecia. No nausea vomiting diarrhea. The breast mass in the right breast is not as evidence with deep palpation. Youcan still feel it but it appears to be smaller somewhat. In the right axilla there is a very small pinpoint hard nodule fairly superficial. Her tolerance to therapy to date has been overall good. BRCA testing was done through [employer] and is negative. She does have left foot numbness. MRI was done of the lumbar spine and does show multiple areas of degenerative disc disease. The patient has a known history of problem both in her lumbar spine and what appears in her cervical spine. I will refer her to Dr. Castle for consideration of kyphoplasty or other. I willdefer to his impression and recommendations. MOHEGAN: This is a 46 year old female, recently diagnosed with triple negative right breast cancer; currently undergoing neoadjuvant pembrolizumab, carboplatin AUC 4and weekly paclitaxel x6 cycles, which commenced: 07/22/2021. This is a 46-year-old female who works at [employer] with triple negative breast cancer, referred for neoadjuvant chemotherapy. Mammogramon on April 22, 2021 showed 3 new focal masses with the largest measuring 2 cm in size in the right breast. 2 additional lesions measuring 1 cm and a second 0.9 cm were also seen. The patient was referred for biopsy. Needle biopsy showed triple negative breast cancer, ER negative, LA negative, and H ER 2 -. The patient was referred to Dr. Ismael Red for Xorypj-y-Swqw which she has had placed. [facility]. Because of insurance reasons, she will be getting her treatment here at [facility]. She has had echocardiography as well. According the patient an MRI was obtained prior to neoadjuvant therapy while she was at [facility] we are requesting this prior study. She does have a palpable breast mass. It is in the lower mid quadrant of the right breast. Mammogram on on April 22, 2021 showed 3 new focal masses with the largest measuring 2 cm in size in the right breast. 2 additional lesions measuring 1 cmand a second 0.9 cm were also seen. The patient was referred for biopsy. Needle biopsy showed triple negative breast cancer, ER negative, LA negative, and HER 2 -. The patient was referred to Dr. Ismael Red for Sftvlb-b-Fhsd which she has had placed. She has [facility]. Because of insurance reasons, she will be getting her treatment here at [facility]. She has had echocardiography as well. PET/CT scan was denied by insurance and she underwent CT scan of the chest/abdomen/pelvis on 07/16/2021 which showed no obvious evidence of distant metastatic disease. As noted above, Cycle 1, Day 1 (Carboplatin/Paclitaxel/Pembrolizumab) commenced 07/22/2021 and this was well tolerated. The patient went home that evening and began to feel flushed, general malaise, etc. She subsequently tested positive for COVID - 19 per PCR the following day, 07/23/2021. Her symptoms were quite mild; however, next cycle of chemotherapy was pushed out 2 days and she is here today for Cycle 1, Day 8 of single agent Paclitaxel. She does have a palpable breast mass in the lower mid quadrant of the right breast; she was concerned about a lump under her right axilla but upon exam wehad trouble locating a discrete nodule or lymph node. Otherwise, her only complaint is continued low back pain with radiculopathy involving the left groin/hip and left lower extremity with associated numbness in left foot. She has known neuroma of the left foot and was in the process of being worked up by pain management (Dr. Monique) for lumbar pain; radiculopathy. - Summary of Therapies Summary of Therapies: Neoadjuvant Carboplatin AUC 5-day 1, Pembrolizumab 200 mg day 1, Paclitaxel 80 mg meter squared weekly each 21-day cycle for planned 4 cycles: started Cycle 1,Day 1: 07/22/2021, cycle 4 09/24/2021 --Evaluation in 3 weeks for Pembrolizumab 200 mg day 1, doxorubicin 60 mg/m? day1, and cyclophosphamide 600 mg/m? day 1 every 21 days x 4 cycles followed by adjuvant Pembrolizumab 200 mg IV every 21 days x 9 cycles (will discuss with tertiary medical oncology and review MRI for response) ROS Details: All systems reviewed & no additional complaints except as documented Subjective/ROS - Narrative: CONSTITUTIONAL: Stable mild fatigue, negative for fever or night sweats. HEAD AND NECK: Negative for changes in hearing and vision. Negative for mouth ulcers, nasal congestion and nasal drainage. BREASTS: Unchanged right UOQ fullness without skin changes. PULMONARY: Negative for chest pain, cough and dyspnea. CARDIOVASCULAR: Negative for claudication and irregular heartbeat/palpitations. GASTROINTESTINAL: Negative for abdominal pain, constipation, decreased appetite,diarrhea, controlled nausea without vomiting. GENITOURINARY: Negative for dysuria and hematuria. ENDOCRINE: Negative for cold intolerance and heat intolerance. CENTRAL NERVOUS SYSTEM: Negative for gait disturbance and headache. PSYCHIATRIC: Negative for anxiety or depression. DERMATOLOGICAL: Negative for pruritus and rash. Negative for suspicious skin lesions. MUSCULOSKELETAL: Stable lumbar back pain and no bone/joint symptoms. HEMATOLOGICAL: Negative for bleeding and easy bruising. Negative for history of transfusion or thromboembolic disease ALLERGY: Negative for environmental allergies and food allergies. PMFSH - History Attestation statement: The following information was validated with the patient. Source: Old Records Reviewed - Medical History Medical History: Medical History (Last Reviewed 09/24/21 @ 11:09 by Kallie Chang MD) Arthritis COVID-19 Headache High blood cholesterol - Surgical History Surgical History: Surgical History (Last Reviewed 09/24/21 @ 11:09 by Kallie Chang MD) History of breast biopsy right 05/26/2021 History of carpal tunnel release History of cholecystectomy History of foot surgery right - Family History Family History: Family History (Last Reviewed 09/24/21 @ 11:09 by Kallie Chang MD) Brother Lung cancer Father Cancer Mother COPD (chronic obstructive pulmonary disease) - Social History Smoking Status: Former smoker Tobacco Type: cigarettes Substance Use Type: None Home Medications & Allergies Allergies No Known Allergies Allergy (Verified 09/24/21 08:03) Home Medications prochlorperazine maleate 10 mg tablet 10 mg PO Q6H PRN 07/03/21 [History Confirmed 09/24/21] dkhnnxy-ztovfhbjyobum-nkhwbmke 250 mg-250 mg-65 mg tablet (Excedrin Migraine) 1 tab PO Q4-6H PRN 07/08/21 [History Confirmed 09/24/21] citalopram 20 mg tablet 20 mg PO DAILY 07/08/21 [History Confirmed 09/24/21] diclofenac sodium 50 mg tablet,delayed release 50 mg PO TID 07/08/21 [History Confirmed 09/24/21] omeprazole 20 mg capsule,delayed release 20 mg PO DAILY 07/08/21 [History Confirmed 09/24/21] ondansetron HCl 8 mg tablet 8 mg PO Q8H PRN #30 tab 07/08/21 [Rx Confirmed 09/24/21] prochlorperazine maleate 10 mg tablet (Compazine) 10 mg PO Q6H PRN #30 tab 07/08/21 [Rx Confirmed 09/24/21] lorazepam 1 mg tablet 1 mg PO Q6H PRN 14 Days #56 tab 09/04/21 [Rx Confirmed 09/24/21] dexamethasone 4 mg tablet 8 mg PO BID #6 tab 09/17/21 [Rx Confirmed 09/24/21] Objective - Height/Weight Height/Weight: Height 5 ft 3 in Weight 91.626 kg BSA for Today's Weight 2.02 - Vital Signs Vital Signs: 09/24/21 08:03 Temperature 98.0 F Pulse Rate [Left Brachial] 87 Respiratory Rate 16 Blood Pressure [Left Arm] 135/86 02 Sat by Pulse Oximetry 100 - Pain Left Shoulder Pain Intensity: 5 Lower Back Pain Intensity: 4 Generalized Left Pain Intensity: 5 Physical Exam Narrative: GENERAL: Alert, pleasant, no acute distress. HEENT: Oral mucosa is pink/moist; no lesions or exudate. Neck supple without adenopathy or thyromegaly. BREAST: Right breast reveals palpable mass 3 cm area of fullness (previously documented as ~ 2-2.5 cm in size near the inferior/medial aspect of the breast);unchanged per patient. No definitive supraclavicular/infraclavicular or axillarylymphadenopathy. Left breast without masses, left upper chest Owkcag-t-Uqxz in place and nontender. No axillary fullness seen, no skin changes or nipple discharge/deviation of left breast. HEART: RRR; no murmurs/rubs or gallops; S1 and S2 normal. No edema. LUNGS: CTA bilaterally; no wheezes or crackles. Normal respiratory effort. ABDOMEN: Soft, non tender. BS present x 4 quadrants. No HSM. INTEGUMENTARY: Warm, dry; no skin rashes. MUSCULOSKELETAL: Normal strength 5/5 in extremities x 4; no weakness; left groinpain. LYMPHATICS: No lymphadenopathy appreciated. NEUROLOGICAL: Grossly intact, patient is alert and oriented x 3; stable gait. Lumbar spine pain with referred pain in the left gluteal area and around the left groin; with radiculopathy of left lower extremity--patient is ambulatory and pain is stable. - ECOG Performance Status ECOG Score: 0 Results - Labs Labs: Diagram of Most Recent CBC and CMP 08/20/21 14:00 07/16/21 12:50 Outside labs reviewed 09/16/2021: White blood cells 5900, hemoglobin 10.3, hematocrit 31.5, platelet count 411,000, absolute neutrophil count 3400 Sodium 137, potassium 4.1, glucose 140, BUN 13, creatinine 0.8, EGFR greater than 60, calcium 9.4, ALT 66, AST 29, alkaline phosphatase 101, albumin 3.7 - Impressions We will request outside MRI from [facility] from baseline. - Other Results Results/Comments: Prior notes from 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 She was initially see in consultation by Dr. Smith at [facility] in [place], [place]; however, due to insurance reasons the [facility]. In reviewing notes from her prior physician from 06/20/2021 she had 3 focal nodules with largest measuring 2 x 1.8 cm 6 o'clock position, 2 additional lesions measuring 1 x 0.7 cm and another 0.9 x 0.6 cm. BI-RADS spot compression view right breast showed persistent 2.4 x 2.2 cm partially obscured round mass with pleomorphic calcifications. She did have breast MRI prior to initiation of neoadjuvant therapy which I do not have records from this from [facility] in [place]. I am requesting this to evaluate her baseline study since transfer of care from Dr. Phoenix to myself. She also had reported normal baseline echo in May 2021. She commenced neoadjuvant Carboplatin/Paclitaxel/Pembrolizumab therapy on 07/22/2021; Our treatment plan will be pembrolizumab 200 mg IV every 3 weeks with weekly paclitaxel 80 mg/m? IV and q. 21 days carboplatin AUC 5 for 4 cycles. This treatment regimen is based on KEYNOTE 522 trial and is now standard of careand NCCN guidelines. After review of her MRI from outside hospital, I will repeat her breast MRI for new baseline here. If stable to responding disease wemay continue prior plan for followed by pembrolizumab every 3 weeks with Adriamycin and cyclophosphamide for 4 cycles. The patient would like reassessment by general surgery for surgical plan and we will determine whether she proceeds with mastectomy or lumpectomy based on his results. Baseline genetic testing returned negative from prior physicians at [facility]. BRCA testing negative Today in follow-up September is cycle 4 -day 1. Tolerance is overall good-- Proceed with cycle 4 with breast MRI prior to 2-week follow-up in comparison to baseline MRI. This will be useful in surgical planning. I am discussing her case with tertiary breast oncology Dr. Vinh Bucio to see if he concurs with this plan. If decision is made to commence AC Pembroluzumab we will repeat her echocardiogram prior to this and obtain her prior echo results. Physical exam may be showing some evidence of response with the lump in the right breast being not as conspicuous as compared to prior notes although it is unclear to evaluate by exam, therefore MRI is ordered. My plan at this time will be to press on and continue our chemotherapy per plan. I will see her in 2 weeks. High complexity visit over 45 minutes for patient counseling and review of extensive prior records, coordination with tertiary breast oncology. (2) Lumbar back pain with radiculopathy affecting left lower extremity MRI results are reviewed. Previously referred to Dr. Jameson Castle for his recommendations. (3) Encounter for chemotherapy management High complexity visit for coordination of transfer of medical oncology care, potential reevaluation by general surgery, obtaining outside studies and discussion of overall plan of care with the patient. - Chemo Plan Chemo Plan (Dose, Rate, Freq): Neoadjuvant Carboplatin/Paclitaxel/Pembrolizumab therapy on 07/22/2021; Our treatment plan will be pembrolizumab 200 mg IV every 3 weeks with weekly paclitaxel 80 mg/m? IV and q. 21 days carboplatin AUC 5 for 4 cycles. This treatment regimen is based on KEYNOTE 522 trial and is now standard of care and NCCN guidelines. --After review of her MRI from outside hospital, I will repeat her breast MRI for new baseline here. If stable to responding disease we may continue prior plan for followed by pembrolizumab every 3 weeks with Adriamycin and cyclophosphamide for 4 cycles. Number of Cycles: 8 Goal of Treatment: Curative - Time with Patient Time Spent with Patient (Follow Up Visit): 45 minutes or more Coordination of Care & Counseling Time: Greater than 50% of time spent with patient was for coordination of care (as documented) and kalb-uc-lebq counseling of patient and/or family. Dictated By: Kallie Chang MD DD/ [id number] Signed By: <Electronically signed by MD Kallie Chang> 09/24/21 0735 [facility] Work Phone: [phone] Evaluation note* Encounter Date Diagnosis Assessment Notes Treatment Notes Treatment Clinical Notes Aug, Lumbar spondylosis (ICD-10 - M47.816) I really do not see any surgical process in either her lumbar spine or her cervical spine although I do not have an MRI of her cervical spine. If she wants to further understand the symptoms in her left leg she would be a candidate for left lower extremity EMG and nerve conduction study. Given everything else that she has going on knowing that this is not neoplastic at all I think she may want a follow-up conservatively for period of time but were happy to make those arrangements should she want further investigation. Aug, Cervical spondylosis (ICD-10 - M47.812) [employer] Other 02-02-2022 Progress note Author Salbador Phoenix [facility] August 20, 2021 2:47pm Note Date/Time August 20, 2021 2 :45pm [facility] [place] [address] Hem/Onc Follow Up Note - OP Signed Patient: Tenisha Hancock MR#: [id number] : 1975 Acct:[id number] Age/Sex: 46 / F Type: REG RCR Copies to: MD Eliel Hernandez MD~ Subjective Date/Time of Service: Date of Service: 08/20/2021 Time of Service: 14:41 Chief Complaint: Patient is here for a 3 week follow up with labs and MRI for review, prior to treatment today. HPI: Tenisha presents August 20, 2021 for cycle 2, day 7 of neoadjuvant chemotherapy for triple negative breast cancer. She does have some progressive alopecia. No nausea vomiting diarrhea. The breast mass in the right breast is not as evidence with deep palpation. Youcan still feel it but it appears to be smaller somewhat. In the right axilla there is a very small pinpoint hard nodule fairly superficial. Her tolerance to therapy to date has been overall good. BRCA testing was done through [employer] and is negative. She does have left foot numbness. MRI was done of the lumbar spine and does show multiple areas of degenerative disc disease. The patient has a known history of problem both in her lumbar spine and what appears in her cervical spine. I will refer her to Dr. Castle for consideration of kyphoplasty or other. I willdefer to his impression and recommendations. MOHEGAN: This is a 46 year old female, recently diagnosed with triple negative right breast cancer; currently undergoing neoadjuvant pembrolizumab, carboplatin and paclitaxel, which commenced: 07/22/2021. Mammogram on on April 22, 2021 showed 3 new focal masses with the largest measuring 2 cm in size in the right breast. 2 additional lesions measuring 1 cm staci second 0.9 cm were also seen. The patient was referred for biopsy. Needle biopsy showed triple negative breast cancer, ER negative, LA negative, and HER 2-. The patient was referred to Dr. Ismael Red for Nucvrc-v-Lzvy which she has had placed. [facility]. Because of insurance reasons, she will be getting her treatment here at [facility]. She has had echocardiography as well. PET/CT scan was denied by insurance and she underwent CT scan of the chest/abdomen/pelvis on 07/16/2021 which showed no obvious evidence of distant metastatic disease. As noted above, Cycle 1, Day 1 (Carboplatin/Paclitaxel/Pembrolizumab) commenced 07/22/2021 and this was well tolerated. The patient went home that evening and began to feel flushed, general malaise, etc. She subsequently tested positive for COVID - 19 per PCR the following day, 07/23/2021. Her symptoms were quite mild; however, next cycle of chemotherapy was pushed out 2 days and she is here today for Cycle 1, Day 8 of single agent Paclitaxel. She does have a palpable breast mass in the lower mid quadrant of the right breast; she was concerned about a lump under her right axilla but upon exam wehad trouble locating a discrete nodule or lymph node. Otherwise, her only complaint is continued low back pain with radiculopathy involving the left groin/hip and left lower extremity with associated numbness in left foot. She has known neuroma of the left foot and was in the process of being worked up by pain management (Dr. Monique) for lumbar pain; radiculopathy. - Summary of Therapies Summary of Therapies: Neoadjuvant Carboplatin, Pembrolizumab, Paclitaxel: started Cycle 1, Day 1: 07/22/2021 Subjective/ROS - Narrative: Mild fatigue; left hip/left groin pain, low back pain (chronic); left lower extremity radiculopathy; otherwise, 10 point review of systems is negative. PMFSH - Medical History Medical History: Medical History (Last Updated 07/31/21 @ 13:37 by Minda Hall) Arthritis COVID-19 Headache High blood cholesterol - Surgical History Surgical History: Surgical History (Last Reviewed 08/20/21 @ 14:18 by Minda Hall) History of breast biopsy right 05/26/2021 History of carpal tunnel release History of cholecystectomy History of foot surgery right - Family History Family History: Family History (Last Reviewed 07/08/21 @ 15:06 by Salbador Phoenix MD) Brother Lung cancer Father Cancer Mother COPD (chronic obstructive pulmonary disease) - Social History Smoking Status: Former smoker Tobacco Type: cigarettes Substance Use Type: None Home Medications & Allergies Allergies No Known Allergies Allergy (Verified 08/14/21 09:20) Home Medications prochlorperazine maleate 10 mg tablet 10 mg PO Q6H PRN 07/03/21 [History Confirmed 08/20/21] ycqrtaq-merfknndfpxyc-jikqglay 250 mg-250 mg-65 mg tablet (Excedrin Migraine) 1 tab PO Q4-6H PRN 07/08/21 [History Confirmed 08/20/21] citalopram 20 mg tablet 20 mg PO DAILY 07/08/21 [History Confirmed 08/20/21] diclofenac sodium 50 mg tablet,delayed release 50 mg PO TID 07/08/21 [History Confirmed 08/20/21] omeprazole 20 mg capsule,delayed release 20 mg PO DAILY 07/08/21 [History Confirmed 08/20/21] ondansetron HCl 8 mg tablet 8 mg PO Q8H PRN #30 tab 07/08/21 [Rx Confirmed 08/20/21] prochlorperazine maleate 10 mg tablet (Compazine) 10 mg PO Q6H PRN #30 tab 07/08/21 [Rx Confirmed 08/20/21] lorazepam 1 mg tablet 1 mg PO Q6H PRN 14 Days #56 tab 07/15/21 [Rx Confirmed 08/20/21] Objective - Height/Weight Height/Weight: Height 5 ft 3 in Weight 91.263 kg BSA for Today's Weight 2.01 - Vital Signs Vital Signs: 08/20/21 14:18 Temperature 97.9 F Pulse Rate [Left Brachial] 86 Respiratory Rate 20 Blood Pressure [Left Arm] 127/76 02 Sat by Pulse Oximetry 98 - Pain Left Shoulder Pain Intensity: 0 Lower Back Pain Intensity: 4 Generalized Left Pain Intensity: 5 Physical Exam Narrative: GENERAL: Alert, pleasant, no acute distress. HEENT: Oral mucosa is pink/moist; no lesions or exudate. Neck supple without adenopathy or thyromegaly. HEART: RRR; no murmurs/rubs or gallops; S1 and S2 normal. No edema. LUNGS: CTA bilaterally; no wheezes or crackles. Normal respiratory effort. ABDOMEN: Soft, non tender. BS present x 4 quadrants. No HSM. BREAST: Right breast reveals palpable mass ~ 2-2.5 cm in size near the inferior/medial aspect of the breast; unchanged per patient. No definitive supraclavicular/infraclavicular or axillary lymphadenopathy. Left breast not examined today. INTEGUMENTARY: Warm, dry; no skin rashes. MUSCULOSKELETAL: Normal strength 5/5 in extremities x 4; no weakness; left groinpain. LYMPHATICS: No lymphadenopathy appreciated. NEUROLOGICAL: Grossly intact, patient is alert and oriented x 3; stable gait. Lumbar spine pain with referred pain in the left gluteal area and around the left groin; with radiculopathy of left lower extremity. - ECOG Performance Status ECOG Score: 0 Results - Labs Labs: Diagram of Most Recent CBC and CMP 08/20/21 14:00 07/16/21 12:50 Labs - Last 7 Days 08/20/21 14:00: Corrected WBC 5.5, Uncorrected WBC Count 5.5, RBC 3.44 L, Hgb 10.9 L, Hct 32.0 L, MCV 93.0, MCH 31.7, MCHC 34.0, RDW 13.3, Plt Count 220, MPV 7.1, Neut % (Auto) 58.0, Lymph % (Auto) 36.6, Greenwood % (Auto) 3.9, Eos % (Auto) 1.0, Baso % (Auto) 0.5, Neut # (Auto) 3.2, Lymph # (Auto) 2.0, Greenwood # (Auto) 0.2, Eos # (Auto) 0.1, Baso # (Auto) 0.0, Nucleated RBC % (auto) 0.1 08/14/21 09:30: ACTH 7.3 08/14/21 09:30: Free T4 0.93, TSH 3rd Generation 0.84, Total Cortisol 1.7 Assessment and Plan (1) Breast cancer Patient is a 46-year-old female presenting with 3 discernible masses by mammography (04/22/2021) with needle biopsy confirming triple negative breast cancer. She was initially see in consultation by Dr. Smith at [facility] in [place], [place]; however, due to insurance reasons the patient [facility]care [facility]. She commenced neoadjuvant Carboplatin/Paclitaxel/Pembrolizumab therapy on 07/22/2021; Our treatment plan will be pembrolizumab every 3 weeks with weekly paclitaxel and q. 21 days carboplatin for 4 cycles, followed by pembrolizumab every 3 weeks with Adriamycin and cyclophosphamide for 4 cycles. BRCA testing negative Today in follow-up August 20, 2021 is cycle 2-day 7. Tolerance is overall good. Physical exam may be showing some evidence of response with the lump in the right breast being not as conspicuous. My plan at this time will be to press on and continue our chemotherapy per plan. I will see her in 1 month. (2) Lumbar back pain with radiculopathy affecting left lower extremity MRI results are reviewed. I will refer to Dr. Jameson Castle for his recommendations. - Chemo Plan Goal of Treatment: Curative - Time with Patient Time Spent with Patient (Follow Up Visit): 35 minutes Coordination of Care & Counseling Time: Greater than 50% of time spent with patient was for coordination of care (as documented) and ftra-vp-[id number] counseling of patient and/or family. Dictated By: Salbador Phoenix MD DD/ 40 Signed By: <Electronically signed by MD Salbador Phoenix> 08/20/21 1447 [facility] Work Phone: [phone] 165-709201-13-2022 Progress note Author Jazmin Monsivais [facility] July 31, 2021 3:54pm Note Date/Time July 31, 2021 3 :07pm [facility] at [address] [address] Hem/Onc Follow Up Note - OP Signed Patient: Tenisha Hancock MR#: [id number] : 1975 Acct:[id number] Age/Sex: 46 / F Type: REG RCR Copies to: Eliel Hurd MD~ Subjective Date/Time of Service: Date of Service: 07/31/2021 Time of Service: 14:54 Chief Complaint: Patient is here for a 2 week follow up for breast cancer with outside labs for review. She had CT scans 07/16/21 for review today. Patient states that she noticed a lump under her right arm. No other concerns voiced at this time. HPI: Cuong is a 46 year old female, recently diagnosed with triple negative right breast cancer; currently undergoing neoadjuvant pembrolizumab, carboplatin and paclitaxel, which commenced: 07/22/2021. Mammogram on on April 22, 2021 showed 3 new focal masses with the largest measuring 2 cm in size in the right breast. 2additional lesions measuring 1 cm and a second 0.9 cm were also seen. The patient was referred for biopsy. Needle biopsy showed triple negative breast cancer, ER negative, LA negative, and HER 2 -. The patient was referred to Dr. Ismael Red for Lqislb-g-Ampf which she has had placed. [facility]. Because of insurance reasons, she will be getting her treatment here at [facility]. She has had echocardiography as well. PET/CT scan was denied by insurance and she underwent CT scan of the chest/abdomen/pelvis on 07/16/2021 which showed no obvious evidence of distant metastatic disease. As noted above, Cycle 1, Day 1 (Carboplatin/Paclitaxel/Pembrolizumab) commenced 07/22/2021 and this was well tolerated. The patient went home that evening and began to feel flushed, general malaise, etc. She subsequently tested positive for COVID - 19 per PCR the following day, 07/23/2021. Her symptoms were quite mild; however, next cycle of chemotherapy was pushed out 2 days and she is here today for Cycle 1, Day 8 of single agent Paclitaxel. She does have a palpable breast mass in the lower mid quadrant of the right breast; she was concerned about a lump under her right axilla but upon exam wehad trouble locating a discrete nodule or lymph node. Otherwise, her only complaint is continued low back pain with radiculopathy involving the left groin/hip and left lower extremity with associated numbness in left foot. She has known neuroma of the left foot and was in the process of being worked up by pain management (Dr. Monique) for lumbar pain; radiculopathy. She was in the process of getting an MRI but was subsequently diagnosed with her breast cancer and work up has been on hold. She has true hip joint pain deep within the left groin. - Summary of Therapies Summary of Therapies: Neoadjuvant Carboplatin, Pembrolizumab, Paclitaxel: started Cycle 1, Day 1: 07/22/2021 Subjective/ROS - Narrative: Mild fatigue; left hip/left groin pain, low back pain (chronic); left lower extremity radiculopathy; otherwise, 10 point review of systems is negative. [facility] - Medical History Medical History: Medical History (Last Updated 07/31/21 @ 13:37 by Minda Hall) Arthritis COVID-19 Headache High blood cholesterol - Surgical History Surgical History: Surgical History (Last Reviewed 07/08/21 @ 15:06 by Salbador Phoenix MD) History of breast biopsy right 05/26/2021 History of carpal tunnel release History of cholecystectomy History of foot surgery right - Family History Family History: Family History (Last Reviewed 07/08/21 @ 15:06 by Salbador Phoenix MD) Brother Lung cancer Father Cancer Mother COPD (chronic obstructive pulmonary disease) - Social History Smoking Status: Former smoker Tobacco Type: cigarettes Substance Use Type: None Home Medications & Allergies Allergies No Known Allergies Allergy (Verified 07/31/21 13:24) Home Medications ondansetron 8 mg disintegrating tablet 8 mg PO BID PRN 07/03/21 [History Confirmed 07/31/21] prochlorperazine maleate 10 mg tablet 10 mg PO Q6H PRN 07/03/21 [History Confirmed 07/31/21] giwesvz-eheeimqcyjpft-oqgzomcc 250 mg-250 mg-65 mg tablet (Excedrin Migraine) 1 tab PO Q4-6H PRN 07/08/21 [History Confirmed 07/31/21] citalopram 20 mg tablet 20 mg PO DAILY 07/08/21 [History Confirmed 07/31/21] diclofenac sodium 50 mg tablet,delayed release 50 mg PO TID 07/08/21 [History Confirmed 07/31/21] omeprazole 20 mg capsule,delayed release 20 mg PO DAILY 07/08/21 [History Confirmed 07/31/21] ondansetron HCl 8 mg tablet 8 mg PO Q8H PRN #30 tab 07/08/21 [Rx Confirmed 07/31/21] prochlorperazine maleate 10 mg tablet (Compazine) 10 mg PO Q6H PRN #30 tab 07/08/21 [Rx Confirmed 07/31/21] lorazepam 1 mg tablet 1 mg PO Q6H PRN 14 Days #56 tab 07/15/21 [Rx Confirmed 07/31/21] Objective - Resuscitation Status Resuscitation Status: Full Code - Height/Weight Height/Weight: Height 5 ft 3 in Weight 91.263 kg BSA for Today's Weight 2.01 - Vital Signs Vital Signs: 07/31/21 13:27 Temperature 98 F Pulse Rate [Left Brachial] 80 Respiratory Rate 20 Blood Pressure [Left Arm] 121/73 02 Sat by Pulse Oximetry 99 - Pain Left Shoulder Pain Intensity: 0 Lower Back Pain Intensity: 4 Physical Exam Narrative: GENERAL: Alert, pleasant, no acute distress. HEENT: Oral mucosa is pink/moist; no lesions or exudate. Neck supple without adenopathy or thyromegaly. HEART: RRR; no murmurs/rubs or gallops; S1 and S2 normal. No edema. LUNGS: CTA bilaterally; no wheezes or crackles. Normal respiratory effort. ABDOMEN: Soft, non tender. BS present x 4 quadrants. No HSM. BREAST: Right breast reveals palpable mass ~ 2-2.5 cm in size near the inferior/medial aspect of the breast; unchanged per patient. No definitive supraclavicular/infraclavicular or axillary lymphadenopathy. Left breast not examined today. INTEGUMENTARY: Warm, dry; no skin rashes. MUSCULOSKELETAL: Normal strength 5/5 in extremities x 4; no weakness; left groinpain. LYMPHATICS: No lymphadenopathy appreciated. NEUROLOGICAL: Grossly intact, patient is alert and oriented x 3; stable gait. Lumbar spine pain with referred pain in the left gluteal area and around the left groin; with radiculopathy of left lower extremity. - ECOG Performance Status ECOG Score: 0 Results - Labs Labs: Diagram of Most Recent CBC and CMP 07/16/21 12:50 07/16/21 12:50 Outside Labs: Outside labs from [facility] scanned in chart; no significant cytopenias or abnormalities (WBC- 8.0; Hgb 12.0; normal platelets; Normal electrolytes; renal/hepatic fxn) Assessment and Plan (1) Breast cancer Patient is a 46-year-old female presenting with 3 discernible masses by mammography (04/22/2021) with needle biopsy confirming triple negative breast cancer. She was initially see in consultation by Dr. Smith at [facility] in [place], [place]; however, due to insurance reasons the patient transferredcare to [facility]. She commenced neoadjuvant Carboplatin/Paclitaxel/Pembrolizumab therapy on 07/22/2021; Our treatment plan will be pembrolizumab every 3 weeks with weekly paclitaxel and q. 21 days carboplatin for 4 cycles, followed by pembrolizumab every 3 weeks with Adriamycin and cyclophosphamide for 4 cycles. She is seen today, 07/31/2021 for toxicity check following initiation of therapy and will receive Cycle 1, Day 8 Paclitaxel today. She reports good tolerance to first treatment with no untoward side effects. Denies fever/chills, nausea/vomiting; bowel or bladder changes. We also reviewed her imaging; of note, it appears that insurance did not approve PET scan and she had CT scans ofthe chest/abdomen/pelvis on 07/16/2021 here at [facility]. There was no obvious evidence of distant metastatic disease (see report above). There was mention of 2 small subcentimeter areas in the liver; that were felt to be most consistent with hemangiomas vs cyst. We will follow her clinically throughout treatment andwith additional imaging if need be. Genetic testing to be re-drawn today as her first specimen was inadequate for testing. Labs are okay; may proceed with treatment today. See Dr. Phoenix prior to Cycle 2, Day 1 for toxicity visit/on treatment visit. (2) Lumbar back pain with radiculopathy affecting left lower extremity Chronic low back pain; known degenerative changes in the lumbar spine. Prior to diagnosis patient was being [facility] She has ongoing issues with low back pain; left gluteal pain radiating to the trochanteric bursa and left groin with associated left foot numbness. Patient also has known neuroma of left foot. She was in the process ofhaving a lumbar spine MRI ordered; however, was diagnosed with her breast cancerand this subsequently placed on hold. Symptoms seem to be worsening; mainly because of the neuropathy in her foot. Sheis pain mostly at night and it is hard to get comfortable; she has tried a couple sessions of physical therapy but no other aggressive measures. To be prudent we will check lumbar spine MRI and left hip X-ray; given her true hip joint pain. As noted above, on most recent CT scans there was no evidence of metastatic disease and she does not have any pain elsewhere. - Chemo Plan Goal of Treatment: Curative - Time with Patient Time Spent with Patient (Follow Up Visit): 35 minutes Coordination of Care & Counseling Time: Greater than 50% of time spent with patient was for coordination of care (as documented) and nanr-ah-evyj counseling of patient and/or family. Dictated By: Jazmin Monsivais APRN DD/ 1454 Signed By: <Electronically signed by PETE Monsivais> 07/31/21 1554 [facility] Work Phone: [phone]) 620-153101-13-2022 Hospital Discharge instructionsAmbulatory Orders* Imaging on Disk Time Frame: 1 Day, Location: Determined By Patient * RISE Order Time Frame: 07/31/21, Location: Determined By Patient [facility] Work Phone: [phone]) 427-273612-28-2021 Progress note Author Salbador Phoenix [facility] July 15, 2021 1:32pm Note Date/Time July 15, 2021 1:28pm [facility] at [address] [address] Hem/Onc Follow Up Note - OP Signed Patient: Tenisha Hancock MR#: [id number] : 1975 Acct:[id number] Age/Sex: 46 / F Type: REG RCR Copies to: Eliel Hurd MD~ Subjective Date/Time of Service: Date of Service: 07/15/2021 Time of Service: 13:27 Chief Complaint: Patient is here today for one week follow up visit HPI: Cuong will be starting neoadjuvant pembrolizumab, carboplatin and paclitaxel January 19, 2021. She will be getting chemotherapy education. Informed consent hasbeen obtained. She will be attending chemotherapy education class. PET scan isscheduled for tomorrow. This is a 46-year-old female who works at [employer] who was referred here with triple negative breast cancer, referred for neoadjuvant chemotherapy. Mammogram on on April 22, 2021 showed 3 new focal masses with the largest measuring 2 cm in size in the right breast. 2 additional lesions measuring 1 cm and a second 0.9 cm were also seen. The patient was referred forbiopsy. Needle biopsy showed triple negative breast cancer, ER negative, LA negative, and H ER 2 -. The patient was referred to Dr. Ismael Red for Wgwdoz-r-Mwgx which she has had placed. She has seen my colleague Dr. Smith at the [facility] who recommended neoadjuvant chemotherapy and immunotherapy. Because of insurance reasons, she will be getting her treatment here at [facility]. She has had echocardiography as well. She does have a palpable breast mass. It is in the lower mid quadrant of the right breast. Subjective/ROS - Narrative: No acute complaints PMFSH - Medical History Medical History: Medical History (Last Reviewed 07/08/21 @ 15:06 by Salbador Phoenix MD) Arthritis Headache High blood cholesterol - Surgical History Surgical History: Surgical History (Last Reviewed 07/08/21 @ 15:06 by Salbador Phoenix MD) History of breast biopsy right 05/26/2021 History of carpal tunnel release History of cholecystectomy History of foot surgery right - Family History Family History: Family History (Last Reviewed 07/08/21 @ 15:06 by Salbador Phoenix MD) Brother Lung cancer Father Cancer Mother COPD (chronic obstructive pulmonary disease) - Social History Smoking Status: Former smoker Tobacco Type: cigarettes Substance Use Type: None Home Medications & Allergies Allergies No Known Allergies Allergy (Verified 07/15/21 13:13) Home Medications dexamethasone 4 mg tablet 4 mg PO DAILY 07/03/21 [History Confirmed 07/15/21] lorazepam 1 mg tablet 1 mg PO Q6H PRN 07/03/21 [History Confirmed 07/15/21] ondansetron 8 mg disintegrating tablet 8 mg PO BID PRN 07/03/21 [History Confirmed 07/15/21] prochlorperazine maleate 10 mg tablet 10 mg PO Q6H PRN 07/03/21 [History Confirmed 07/15/21] lrxykre-weazwjxiysqvm-hmfopezf 250 mg-250 mg-65 mg tablet (Excedrin Migraine) 1 tab PO Q4-6H PRN 07/08/21 [History Confirmed 07/15/21] citalopram 20 mg tablet 20 mg PO DAILY 07/08/21 [History Confirmed 07/15/21] diclofenac sodium 50 mg tablet,delayed release 50 mg PO TID 07/08/21 [History Confirmed 07/15/21] omeprazole 20 mg capsule,delayed release 20 mg PO DAILY 07/08/21 [History Confirmed 07/15/21] ondansetron HCl 8 mg tablet 8 mg PO Q8H PRN #30 tab 07/08/21 [Rx Confirmed 07/15/21] prochlorperazine maleate 10 mg tablet (Compazine) 10 mg PO Q6H PRN #30 tab 07/08/21 [Rx Confirmed 07/15/21] Objective - Height/Weight Height/Weight: Height 5 ft 3 in Weight 90.265 kg - Vital Signs Vital Signs: 07/15/21 13:13 Temperature 98.0 F Pulse Rate [Left Brachial] 72 Respiratory Rate 20 Blood Pressure [Left Arm] 127/77 02 Sat by Pulse Oximetry 98 - Pain Left Shoulder Pain Intensity: 4 Physical Exam Narrative: Physical exam is noncontributory today - ECOG Performance Status ECOG Score: 0 Results - Labs Labs: Diagram of Most Recent CBC and CMP 07/08/21 16:15 07/08/21 16:15 Labs - Last 7 Days 07/08/21 16:15: PHA Creatinine Clear 106.95, Sodium 135 L, Potassium , Chloride 103, Carbon Dioxide 21.2 L, BUN 12, Creatinine 0.71, Est GFR ( Amer) > 60, Est GFR (Non-Af Amer) > 60, Glucose 102 H, Calcium 9.4, Total Bilirubin 0.7,AST 24, ALT 20, Alkaline Phosphatase 71, Total Protein 7.0, Albumin 4.0, Globulin 3.0, Albumin/Globulin Ratio 1.3 07/08/21 16:15: Corrected WBC 10.1, Uncorrected WBC Count 10.1, RBC 4.56, Hgb 14.1, Hct 41.9, MCV 91.8, MCH 31.0, MCHC 33.7, RDW 12.7, Plt Count 333, MPV 7.8,Neut % (Auto) 68.7, Lymph % (Auto) 25.5, Greenwood % (Auto) 3.9, Eos % (Auto) 1.0, Baso % (Auto) 0.9, Neut # (Auto) 6.9, Lymph # (Auto) 2.6, Greenwood # (Auto) 0.4, Eos# (Auto) 0.1, Baso # (Auto) 0.1, Nucleated RBC % (auto) 0.1 Assessment and Plan (1) Breast cancer Patient is a 46-year-old female presenting with 3 discernible masses by mammography with needle biopsy confirming triple negative breast cancer. Patient will get PET scan tomorrow. She will be starting neoadjuvant pembrolizumab and carboplatin paclitaxel July 22, 2021. I will see her in follow-up July 29, 2021. The patient has her Yjcrqd-a-Knqw and and has had echocardiography. We will refer her for chemotherapy education and literature. PET scan is pending. Genetic testing is pending. Our treatment plan will be pembrolizumab every 3 weeks with weekly paclitaxel and q. 21 days carboplatin for 4 cycles, followed by pembrolizumab every 3 weekswith Adriamycin and cyclophosphamide for 4 cycles. - Time with Patient Coordination of Care & Counseling Time: Greater than 50% of time spent with patient was for coordination of care (as documented) and vphc-sm-idkc counseling of patient and/or family. Dictated By: Salbador Phoenix MD DD/ 1327 Signed By: <Electronically signed by MD Salbador Phoenix> 07/15/21 1332 [facility] Work Phone: 1([phone]) 290-352612-21-2021 Consult note Author Salbador Phoenix [facility] July 08, 2021 3:14pm Note Date/Time July 08, 2021 2:58pm [facility] at [place] [id number] Hem/Onc Consult Note - OP Signed Patient: Tenisha Hancock MR#: [id number] : 1975 Acct:[id number] Age/Sex: 46 / F Type: REG RCR Copies to: Chidi Hurd MD~ HPI Date/Time of Service: Date of Service: 07/08/2021 Time of Service: 14:57 Referring Provider/PCP: Referring Provider: Eliel Hurd MD PCP: Eliel Hurd MD - History of Present Illness Reason for Consultation: Triple negative breast cancer Chief Complaint: Patient is here today for a transfer of care from Dr Telly Smith for breast cancern HPI: This is a 46-year-old female who works at [employer] who is referred here with triple negative breast cancer, referred for neoadjuvant chemotherapy. Mammogram on on April 22, 2021 showed 3 new focal masses with the largest measuring 2 cm in size in the right breast. 2 additional lesions measuring 1 cm and a second 0.9 cm were also seen. The patient was referred forbiopsy. Needle biopsy showed triple negative breast cancer, ER negative, LA negative, and H ER 2 -. The patient was referred to Dr. Ismael Red for Seleod-s-Wumq which she has had placed. She has seen my colleague Dr. Smith at the [facility] who recommended neoadjuvant chemotherapy and immunotherapy. Because of insurance reasons, she will be getting her treatment here at [facility]. She has had echocardiography as well. She does have a palpable breast mass. It is in the lower mid quadrant of the right breast. [facility] - Medical History Medical History: Medical History (Last Reviewed 07/08/21 @ 15:06 by Salbador Phoenix MD) Arthritis Headache High blood cholesterol - Surgical History Surgical History: Surgical History (Last Reviewed 07/08/21 @ 15:06 by Salbador Phoenix MD) History of breast biopsy right 05/26/2021 History of carpal tunnel release History of cholecystectomy History of foot surgery right - Family History Family History: Family History (Last Reviewed 07/08/21 @ 15:06 by Salbador Phoenix MD) Brother Lung cancer Father Cancer Mother COPD (chronic obstructive pulmonary disease) - Social History Smoking Status: Former smoker Tobacco Type: cigarettes Substance Use Type: None Home Medications & Allergies Allergies No Known Allergies Allergy (Verified 07/08/21 14:07) Home Medications dexamethasone 4 mg tablet 4 mg PO DAILY 07/03/21 [History Confirmed 07/08/21] lorazepam 1 mg tablet 1 mg PO Q6H PRN 07/03/21 [History Confirmed 07/08/21] ondansetron 8 mg disintegrating tablet 8 mg PO BID PRN 07/03/21 [History Confirmed 07/08/21] prochlorperazine maleate 10 mg tablet 10 mg PO Q6H PRN 07/03/21 [History Confirmed 07/08/21] scgpbsu-chzrqseyllfjm-fcjxpnxv 250 mg-250 mg-65 mg tablet (Excedrin Migraine) 1 tab PO Q4-6H PRN 07/08/21 [History Confirmed 07/08/21] citalopram 20 mg tablet 20 mg PO DAILY 07/08/21 [History Confirmed 07/08/21] diclofenac sodium 50 mg tablet,delayed release 50 mg PO TID 07/08/21 [History Confirmed 07/08/21] omeprazole 20 mg capsule,delayed release 20 mg PO DAILY 07/08/21 [History Confirmed 07/08/21] ondansetron HCl 8 mg tablet 8 mg PO Q8H PRN #30 tab 07/08/21 [Rx] prochlorperazine maleate 10 mg tablet (Compazine) 10 mg PO Q6H PRN #30 tab 07/08/21 [Rx] Objective - Height/Weight Height/Weight: Height 5 ft 3 in Weight 88.904 kg - Vital Signs Vital Signs: 07/08/21 14:15 Temperature 97.9 F Pulse Rate [Left Brachial] 79 Respiratory Rate 20 Blood Pressure [Left Arm] 120/71 02 Sat by Pulse Oximetry 98 - Pain Left Shoulder Pain Intensity: 4 Physical Exam Narrative: Physical exam is noted for a deep lower mid quadrant mass of the right breast. It is palpable with deep palpation. Remainder the physical exam is noncontributory. - ECOG Performance Status ECOG Score: 0 Assessment and Plan (1) Breast cancer Patient is a 46-year-old female presenting with 3 discernible masses by mammography with needle biopsy confirming triple negative breast cancer. She has seen medical oncology at [facility] who has recommended neoadjuvant chemotherapy and immunotherapy. I agree with Dr. Smith's recommendations with theuse of neoadjuvant pembrolizumab with carboplatin, paclitaxel followed by Adriamycin and cyclophosphamide. I was able to discuss the rationale, the treatment indications and potential side effects and risk. Clearly the use of immunotherapy upfront with chemotherapy has proven to improve the pathologic complete response rate and is standard in this situation. I do not see any contraindications to the use of immunotherapy at this time. The patient has her Xppnqg-f-Kavg and and has had echocardiography. We will refer her for chemotherapy education and literature. She was requesting PET scan which is reasonable. I will also recommend genetic testing which can be done through [employer]. Our treatment plan will be pembrolizumab every 3 weeks with weekly paclitaxel and q. 21 days carboplatin for 4 cycles, followed by pembrolizumab every 3 weekswith Adriamycin and cyclophosphamide for 4 cycles. I will see her in 1 week andtry to start a soon as possible. - Time with Patient Coordination of Care & Counseling Time: Greater than 50% of time spent with patient was for coordination of care (as documented) and [id number] counseling of patient and/or family. Dictated By: Salbador Phoenix MD DD/ [id number] Signed By: <Electronically signed by MD Salbador Phoenix> 07/08/21 [id number] [facility] Work Phone: Consult note Author [facility] March 19, 2022 10:56am Note Date/Time March 18, 2022 3: 31pm [facility] [place] [address] Rad Onc Consult Note - OP Signed Patient: Tenisha Hancock MR#: [id number] : 1975 Acct:[id number] Age/Sex: 46 / F Type: REG RCR Copies to: MD Eliel Wilson MD~ Assessment & Plan (1) Breast cancer Plan: Obtain radiology report of 06/11/21 outside breast MRI Return to clinic in 1 month for follow-up Tentatively planned at that time for CT simulation to the right whole breast andregional lymphatics to a dose of 42.5 Benavidez in 16 fractions. Assessment: 46-year-old female who has been treated at several outside facilities. Per the available medical records she presented with a cT2N0 invasive ductal carcinoma of the right breast, grade 3, multifocal disease, triple negative. However in review of her June 11, 2021 MRI it appears there could have been involvementof the ipsilateral axillary lymph nodes despite being clinically negative. We will obtain this radiology report to confirm. Regardless she received neoadjuvant chemotherapy and immunotherapy in early February 2022 proceeded to right-sided lumpectomy with oncoplastic reduction. Final pathology confirmed 3.5 cm of residual DCIS with 0 out of 5 lymph nodes involved. [id number]. In review of her operative note as well as the final pathology it clearly states there was treatment effect in both the breast and the lymph nodes indicating shewas likely at least microscopically and pathologically node positive at presentation. We reviewed the role of adjuvant radiation in the treatment of triple negative breast cancer. The need for whole breast radiation after pathological complete response is a active clinical trial question. However in light of her young ageand aggressive nature of triple negative breast cancer she is a candidate for whole breast radiation and due to concern for lymph node involvement upfront I do favor comprehensive liliana radiation. Consequently I recommend 42.5 Benavidez in 16 fractions to the whole breast and regional lymphatics. Typically I would consider a boost to the cavity in light of her oncoplastic reduction this is notfeasible. I provided a general overview of radiation treatment planning and delivery. We discussed the need for immobilization and CT simulation. Short and long-term side effects were reviewed in detail and her questions were answered. She understands the risk of a secondary malignancy and was counseled on the importance of a cancer prevention lifestyle. She was consented to receive care. As her exam today shows a superficial wound dehiscence she will proceed to wound care. I would like to see her back in 1 month for follow-up and tentativeCT simulation. In light of the wound dehiscence as well as the lumpectomy and oncoplastic she needs additional time to heal. HPI Date of Service: 03/19/22 HPI: 46-year-old female with the following oncologic history: April 22 2021 screening mammogram confirming 3 new masses largest measuring 2 cm at the 6 o'clock position with 2 additional lesions in this vicinity measuring 1 cm and 9 mm in the upper outer quadrant and lower inner quadrant of the right breast. Left breast was negative. May 13, 2021 diagnostic mammogram showed a 2.4 partially obscured mildly lobular round mass with pleomorphic microcalcifications. Ultrasound confirmed the lesion at the 6 o'clock position with mildly lobular borders. May 26, 2021 ultrasound-guided core biopsy of the mass at 6:00 confirmed invasive ductal carcinoma, 9 mm, provisional grade 3, ER/LA negative and HER2 negative. Per the available notes her BRCA testing was done through [employer] and was negative. Also appears the right breast mass was palpable in the lower mid quadrant of the breast. [facility]. Due to insurance reasons she received her systemic therapy here at [facility]. PET/CT was denied by insurance. CT scan of the chest abdomen pelvis on July 16, 2021 was negative for metastatic disease. Her clinical stage at presentation was cT2N0. June 11, 2021 patient did undergo an MRI in [place]. I do not have that report available however based on my review it appears there was multifocal disease with possibility of ipsilateral lymphadenopathy. July 22, 2021 patient was initiated on neoadjuvant carboplatin, paclitaxel, pembrolizumab. Of note she tested positive for COVID on July 23, 2021. September 2021 breast MRI was somewhat concerning for progression of her primary breast mass however one of the satellite lesions was no longer identified. December 24, 2021 she completed her fourth and last cycle of Adriamycin, Cytoxan and pembrolizumab. February 23, 2022 patient went a needle localized lumpectomy and oncoplastic reconstruction of the right breast with right mastopexy (60g removed). Her pathology came back negative for invasive disease with only 3.5 mm of DCIS with all margins negative. 0 out of 5 lymph nodes negative. [id number]. Pathology was negative for LVSI. Of note final pathology did show treatment effect in both the breast and the lymph nodes. Frozen section diagnosis also reported treatment effect in all 5 lymph nodes per the operative report. She presents today for consideration of radiation. Today she is overall doing well does report fatigue from her systemic therapy. She is concerned regarding her surgical wound not healing and is planned to meet with wound care today. She states she was given a cream but cannot get the prescription filled anywherelocally. She is currently off work. Has no other breast related complaints. [facility] - Medical History Medical History: Medical History (Last Reviewed 03/12/22 @ 16:28 by Kallie Chang MD) Arthritis COVID-19 Headache High blood cholesterol - Surgical History Surgical History: Surgical History (Last Reviewed 03/12/22 @ 16:28 by Kallie Chang MD) History of breast biopsy right 05/26/2021 History of carpal tunnel release History of cholecystectomy History of foot surgery right - Family History Family History: Family History (Last Reviewed 03/12/22 @ 16:28 by Kallie Chang MD) Brother Lung cancer Father Cancer Mother COPD (chronic obstructive pulmonary disease) - Social History Smoking Status: Former smoker Tobacco Type: cigarettes Substance Use Type: None Home Medications & Allergies Allergies No Known Allergies Allergy (Verified 03/12/22 08:56) Home Medications uemvaug-ezmljszmfjnty-[id number] 250 mg-250 mg-65 mg tablet (Excedrin Migraine) 1 tab PO Q4-6H PRN Headache 07/08/21 [History Confirmed 03/12/22] citalopram 20 mg tablet 20 mg PO DAILY 07/08/21 [History Confirmed 03/12/22] omeprazole 20 mg capsule,delayed release 20 mg PO DAILY 07/08/21 [History Confirmed 03/12/22] Subjective ROS: I reviewed the 12-point Review of Systems with the patient as per our standard questionnaire. Objective Height 5 ft 3 in Weight 89.358 kg Temp 97.7 F 03/12/22 08:56 Pulse 60 03/12/22 08:56 Resp 16 03/12/22 08:56 BP 131/85 03/12/22 08:56 Pulse Ox 98 03/12/22 08:56 O2 Del Method Room Air 03/12/22 08:56 Pain: 0/10 Karnofsky Performance Scale: 90%: Can perform normal activity, minor signs of disease Physical Exam: Physical exam: General: Alert and oriented, no acute distress. HEENT: Normocephalic, extraocular movements intact Chest: Normal work of breathing on room air Breast: Examination of the right breast shows mastopexy scars to be healing however there is a superficial wound dehiscence at inferior to the nipple approximately 1 cm x 1 cm in size. Exam also shows expected postoperative changes palpable edema. No palpable mass or abnormality. Contralateral breast within normal limits. Lymph: No palpable cervical, supraclavicular, axillary lymphadenopathy bilaterally. Exam limited by body habitus. Abdomen: Nonacute MSK: Extremities within normal limits Results CBC & Chem 7: 12/24/21 13:31 12/24/21 13:31 Dictated By: Stacie Thomas MD DD/ [id number] Signed By: <Electronically signed by Stacie Thomas MD> 03/19/22 1056 [facility] Work Phone: Evaluation note* Diagnosis History of breast cancer- Primary Personal history of malignant neoplasm of breast Breast asymmetry following reconstructive surgery Disproportion of reconstructed breast Malignant neoplasm of right female breast, unspecified estrogen receptor status, unspecified site of breast (HCC)- Primary [facility] Diagnosis Malignant neoplasm of right female breast, unspecified estrogen receptor status, unspecified site of breast (HCC) documented in this encounter [employer] Phone: evaluation note* Diagnosis Status post breast reconstruction- Primary Breast replaced by other means Status post breast lumpectomy Other postprocedural status Abnormal mammogram Abnormal mammogram, unspecified Malignant neoplasm of right female breast, unspecified estrogen receptor status, unspecified site of breast (HCC) documented in this encounter [employer] Phone: evaltsctve note* Diagnosis Malignant neoplasm of right female breast, unspecified estrogen receptor status, unspecified site of breast (HCC) documented in this encounter [employer] Phone: evalbasbih note* Diagnosis Onset Date Resolution Status Breast cancer chronic Encounter for antineoplastic immunotherapy chronic Encounter for chemotherapy management chronic 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 Chemotherapy-induced neutropenia resolved [facility] Work Phone: Evaluation note* Diagnosis Onset Date Resolution Status 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 acute Arthralgia of multiple sites, bilateral acute Encounter for coordination of complex care acute Breast cancer chronic Encounter for antineoplastic immunotherapy chronic Encounter for chemotherapy management chronic 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 Chemotherapy-induced neutropenia resolved [facility] Work Phone: Evaluation note* Diagnosis Onset Date Resolution Status 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 chronic Arthralgia of multiple sites, bilateral chronic Breast cancer chronic Encounter for antineoplastic immunotherapy chronic Encounter for chemotherapy management chronic Encounter for coordination of complex care chronic 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 Chemotherapy-induced neutropenia resolved [facility] Work Phone: Evaluation note* Diagnosis Onset Date Resolution Status 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 chronic Breast cancer chronic Encounter for antineoplastic immunotherapy chronic Encounter for chemotherapy management chronic Encounter for coordination of complex care chronic 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 Arthralgia of multiple sites, bilateral resolved Chemotherapy-induced neutropenia resolved [facility] Work Phone: Evaluation note* Diagnosis Onset Date Resolution Status Hypothyroidism (acquired) ac circle 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 chronic Breast cancer chronic Encounter for antineoplastic immunotherapy chronic Encounter for chemotherapy management chronic Encounter for coordination of complex care chronic 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 Arthralgia of multiple sites, bilateral resolved Chemotherapy-induced neutropenia resolved [facility] Work Phone: Evaluation noteNo assessment information available [facility] Work Phone: Hisrpec general Narrative - Reported* Type Description Date Medical History GERD (gastroesophageal reflux di sease) Medical History Depression Medical History Breast Cancer Surgical History gallbladder Surgical History Foot Surgery Hospitalization History gallbladder [facility] Work Phone[facility] Work Phone: [facility] Work Phone: Hospital Discharge instructionsAmbulatory Orders* RISE Order Time Frame: 1 Day, Location: Determined By Patient [facility] Work Phone: Progress note Author Kallie Chang [facility] March 12, 2022 4:36pm Note Date/Time March 12, 2022 9: 49am [facility] at [address] [address] Hem/Onc Follow Up Note - OP Signed Patient: Tenisha Hancock MR#: [id number] : 1975 Acct:[id number] Age/Sex: 46 / F Type: REG RCR Copies to: Eliel Hurd MD~ Subjective Date/Time of Service: Date of Service: 03/12/2022 Time of Service: 08:48 Chief Complaint: Patient is here today for a 2 month follow up visit for breast cancer. She had a needle point lumpectomy with oncoplastic reconstructin HPI: 03/12/2022: Rachel is here following her needle localized lumpectomy with oncoplastic reconstruction of right breast with right mastopexy on 02/17/[address] Saunders/Drew ([facility]). 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 DCIS had estrogen receptor 5% and progesterone receptor negative therefore she is not a candidate for adjuvant hormonal therapy. -- Prior to neoadjuvant therapy the patient's clinical stage was T2N0 (baseline tumor about 2.5 cm by exam). Pathologic stage is ypTis pN0 pMx (3.5mm). She ishealing well with mild residual pain at sites but no drainage from incisions which are healing well. Due to in situ disease only, she does not require further chemotherapy and we will send her to radiation to discuss radiation for her in situ disease. As per the KEYNOTE-522 study, the patient will receive 9 additional cycles of pembrolizumab every 3 weeks following her radiation therapythen observation. The patient expresses understanding and will return after radiation oncology evaluation to and I will see her for follow-up cycle 2. High complexity 45-minute visit for review of outside operative notes and final pathology after right lumpectomy/reconstruction. 12/24/2021: Rachel presents after completing her 4th and last cycle of Adriamycin, Cytoxan and Pembrolizumab. She notes some lingering fatigue and nausea without vomiting. She also notes a few days of diarrhea with some improvement today. Otherwise she does not admit to any other complaints. Her labs are reviewed and stable overall, no significant cytopenias. She is unsure of her next steps and has a lot of questions related to surgical options as well as if she will need radiation therapy. She met with Dr. Simons and has an appointment scheduled at [facility] to discuss josep flap surgery as well. We have advised her to follow-up with Dr. Reza to review her options and answer herquestions related to timing with the surgeon and plastic surgeon. We reviewed lumpectomy vs. mastectomy and the role radiation plays as well. We will plan to follow-up 2 weeks postop, and she will call us with her surgery date once decisions have been made. 12/03/2021: Rachel presents for cycle 3, week 2 toxicity check for Adriamycin/Cytoxan/Pembrolizumab. She continues to note fatigue and nausea but has not had any further neutropenia since dose reduction. We are coordinating evaluation by Dr. Simons with plastic surgery as well as Dr. Reza for planned end of therapy with last cycle due on December 17, 2021. The patient is undecided whether she would like to proceed with breast conservation option versus immediate reconstruction with mastectomy. Dr. Simons was contacted to arrange initial evaluation and she may see nurse practitioner for follow-up 1 week after her last cycle of Adriamycin/Cytoxan/Pembrolizumab. I will see her about 2 weeks postoperatively from her definitive therapy to review pathology and any further therapy options at that point. 11/12/2021: Rachel is here for cycle 2, week 2 toxicity check for Adriamycin/Cytoxan/Pembrolizumab. She was given 20% dose reduction Adriamycin and Cytoxan due to neutropenia last cycle and notes that she felt even more fatigued this cycle than prior cycle. She did not have any oral mucositis and met with Dr. Reza but he was unable to review her prior films. She did notrequire any further interventions since surgical clip was placed in the past. She still is undecided whether she will proceed with lumpectomy or mastectomy. I will refer her back for surgical evaluation after completion of her 4 cycles of Adriamycin/Cytoxan/Pembrolizumab. Currently she does not have any cytopeniasnoted recommend proceeding with same dose of therapy. 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 Next follow-up in 3 weeks fortoxicity check or sooner as needed. 10/22/2021: Rachel is here for toxicity check after cycle 1 of Adriamycin/Cytoxan/Pembrolizumab 1 week ago. She notes that she had increased fatigue and persistent nausea and her total white blood cell count is 1200 with ANC 100. No fever, chills, night sweats, or signs or symptoms of infection. Wediscussed dose reduction by 20% due to her neutropenia. Baseline echocardiogramprior to Adriamycin and Cytoxan was 55 to 60%. MRI of the breast was reviewed in comparison to her initial MRI in May 2022 that shows some progression ofher primary breast mass and one of the satellite lesions is no longer identified. Patient does note that after her breast MRI she did undergo placement of clip at the site of her prior lesions. She wanted to transfer her care for surgical evaluation by Dr. Reza and I will place consult for him to evaluate her to plan surgery following 3 more cycles of Adriamycin/Cytoxan/Pembroluzumab. Otherwise she will follow-up for next cycle of chemotherapy in 2 weeks and toxicity visit the following week after 20% dose reduction of both Adriamycin and Cytoxan. 10/08/2021: Rachel is here for followup after completing 4 cycles of neoadjuvant carboplatin AUC 5 with weekly paclitaxel 80 mg/m? and every 3-week Pembroluzumab 200 mg. She is on her last dose of 12-week paclitaxel today. We ordered an MRI on her and reviewed the images with her in clinic today but finalreport is still pending radiology read. I reviewed her case with breast medical oncologist Dr. Vinh Bucio who agreed that patient should likely continue on Adriamycin/Cytoxan/Pembrolizumab every 3 weeks for 4 more cycles as previously written. She had a baseline echocardiogram in May but we will repeat this prior to starting her next round of chemo in 1 week. Her next follow-up for toxicity visit will be cycle 1 week 2 and we will coordinate surgery evaluation based on her breast MRI to review her response to initial therapy. Symptoms are otherwise stable on weekly paclitaxel with minimal neuropathy. I contacted radiology and breast MRI should be read early next week. 09/24/2021: Rachel is a 46-year-old lady who is currently cycle 4-day 1 for neoadjuvant carboplatin AUC 5 (dose adjusted for adjusted body weight), weekly paclitaxel 80 mg/m?, and every 3-week Pembrolizumab 200 mg. She has tolerated chemotherapy reasonably well with nausea and IBS symptoms but she has not had any significant neutropenia. She has not noticed any clinical difference in herbreast exam, although in comparison to prior notes there is a 9 discrete area onexam 3 to 4 cm of thickening in the right 10:00 to 11:00 area. There is no skindimpling or nipple discharge or retraction. I do not feel any palpable masses in the axilla. Although the patient previously saw Dr. Red at diagnosis, she is uncertain of the plan for surgery. Since she had negative genetic testing it is unlikely that she will have bilateral mastectomy and reconstruction, however we can coordinate her evaluation by surgery locally if she wishes. --Otherwise we decided to proceed with her fourth cycle of carboplatin/paclitaxel/Pembrolizumab today. She had a baseline MRI and I will schedule repeat MRI after her fourth cycle and reevaluate her response to disease. Originally Dr. Phoenix had consented her to proceed with Adriamycin and Cytoxan with Pembrolizumab for 4 more cycles following her carboplatin/paclitaxel/Pembrolizumab. I will review this with tertiary breast medical oncologist Dr. Vinh Bucio to determine whether she should proceed with further therapy or be evaluated for surgery. Patient will follow up with me in approximately 2 weeks after her MRI to review subsequent plan of therapy. Previous notes from Dr. Phoenix, last seen 08/18/2021: Tenisha presents August 20, 2021 for cycle 2, day 7 of neoadjuvant chemotherapy for triple negative breast cancer. She does have some progressive alopecia. No nausea vomiting diarrhea. The breast mass in the right breast is not as evidence with deep palpation. Youcan still feel it but it appears to be smaller somewhat. In the right axilla there is a very small pinpoint hard nodule fairly superficial. Her tolerance to therapy to date has been overall good. BRCA testing was done through [employer] and is negative. She does have left foot numbness. MRI was done of the lumbar spine and does show multiple areas of degenerative disc disease. The patient has a known history of problem both in her lumbar spine and what appears in her cervical spine. I will refer her to Dr. Castle for consideration of kyphoplasty or other. I willdefer to his impression and recommendations. MOHEGAN: This is a 46 year old female, recently diagnosed with triple negative right breast cancer; currently undergoing neoadjuvant pembrolizumab, carboplatin AUC 4 and weekly paclitaxel x6 cycles, which commenced: 07/22/2021. This is a 46-year-old female who works at [employer] with triple negative breast cancer, referred for neoadjuvant chemotherapy. Mammogramon on April 22, 2021 showed 3 new focal masses with the largest measuring 2 cm in size in the right breast. 2 additional lesions measuring 1 cm and a second 0.9 cm were also seen. The patient was referred for biopsy. Needle biopsy showed triple negative breast cancer, ER negative, LA negative, and H ER 2 -. The patient was referred to Dr. Ismael Red for [id number] which she has had placed. She has seen my colleague Dr. Smith at the [facility] recommended neoadjuvant chemotherapy and immunotherapy. Because of insurance reasons, she will be getting her treatment here at [facility]. She has had echocardiography as well. According the patient an MRI was obtained prior to neoadjuvant therapy while she was at [facility] we are requesting this prior study. She does have a palpable breast mass. It is in the lower mid quadrant of the right breast. Mammogram on on April 22, 2021 showed 3 new focal masses with the largest measuring 2 cm in size in the right breast. 2 additional lesions measuring 1 cmand a second 0.9 cm were also seen. The patient was referred for biopsy. Needle biopsy showed triple negative breast cancer, ER negative, LA negative, and HER 2 -. The patient was referred to Dr. Ismael Red for [id number] which she has had placed. She has seen my colleague Dr. Smith at the [facility] recommended neoadjuvant chemotherapy and immunotherapy. Because of insurance reasons, she will be getting her treatment here at [facility]. She has had echocardiography as well. PET/CT scan was denied by insurance and she underwent CT scan of the chest/abdomen/pelvis on 07/16/2021 which showed no obvious evidence of distant metastatic disease. As noted above, Cycle 1, Day 1 (Carboplatin/Paclitaxel/Pembrolizumab) commenced 07/22/2021 and this was well tolerated. The patient went home that evening and began to feel flushed, general malaise, etc. She subsequently tested positive for COVID - 19 per PCR the following day, 07/23/2021. Her symptoms were quite mild; however, next cycle of chemotherapy was pushed out 2 days and she is here today for Cycle 1, Day 8 of single agent Paclitaxel. She does have a palpable breast mass in the lower mid quadrant of the right breast; she was concerned about a lump under her right axilla but upon exam wehad trouble locating a discrete nodule or lymph node. Otherwise, her only complaint is continued low back pain with radiculopathy involving the left groin/hip and left lower extremity with associated numbness in left foot. She hasknown neuroma of the left foot and was in the process of being worked up by painmanagement (Dr. Monique) for lumbar pain; radiculopathy. - Summary of Therapies Summary of Therapies: 1. Neoadjuvant Carboplatin AUC 5-day 1, Pembrolizumab 200 mg day 1, Paclitaxel 80 mg meter squared weekly each 21-day cycle for planned 4 cycles: started Cycle1, Day 1: 07/22/2021, cycle 4 09/24/2021 --Plan 10/15/2021: Start Pembrolizumab 200 mg day 1, doxorubicin 60 mg/m? day 1,and cyclophosphamide 600 mg/m? day 1 every 21 days x 4 cycles followed by adjuvant Pembrolizumab 200 mg IV every 21 days x 9 cycles --Original breast MRI obtained from [facility] from May 2021, follow-up breast MRI performed 10/07/2021 for initial response to therapy. Patient requested an opinion from Dr. Reza for planning breast surgery options based on MRI (she does note that prior biopsy clips were placed after her original MRI for further neoadjuvant therapy). -- 20% dose reduction doxorubicin and cyclophosphamide cycle 2 for neutropenia. Last dose of Adriamycin, cyclophosphamide, Pembrolizumab due 12/17/2021. End of therapy echo may be ordered preoperatively in late December. 2. 02/17/2022 at [facility], Drs. Saunders/Djohan: needle localized lumpectomy with oncoplastic reconstruction of right breast with right mastopexy 3. 03/12/2022: Referral to radiation oncology, then resume Pembrolizumab 200 mg IV every 3 weeks for 9 more cycles. No hormonal therapy indicated for triple negative disease. ROS Details: All systems reviewed & no additional complaints except as documented Subjective/ROS - Narrative: CONSTITUTIONAL: Improved fatigue, negative for fever or night sweats. Still able to perform activities of daily living. HEAD AND NECK: Negative for changes in hearing and vision. Negative for mouth ulcers, nasal congestion and nasal drainage. BREASTS: Status post right lumpectomy with oncoplastic reconstruction/right mastopexy well-healed incisions without tenderness to palpation. No lymphedema or axillary fullness right. Left breast and axilla unremarkable. PULMONARY: Negative for chest pain, cough and dyspnea. CARDIOVASCULAR: Negative for claudication and irregular heartbeat/palpitations. GASTROINTESTINAL: Negative for abdominal pain, constipation, decreased appetite,diarrhea, nausea or vomiting. GENITOURINARY: Negative for dysuria and hematuria. ENDOCRINE: Negative for cold intolerance and heat intolerance. CENTRAL NERVOUS SYSTEM: Negative for gait disturbance and headache. PSYCHIATRIC: Negative for anxiety or depression. DERMATOLOGICAL: Negative for pruritus and rash. Negative for suspicious skin lesions. MUSCULOSKELETAL: Stable lumbar back pain and no bone/joint symptoms. HEMATOLOGICAL: Negative for bleeding and easy bruising. Negative for history of transfusion or thromboembolic disease. Laboratories with cycle 1 AC Pembroluzumab showed neutropenia without fever. No neutropenia after dose reduction cycle 2. ALLERGY: Negative for environmental allergies and food allergies. PMF - History Attestation statement: The following information was validated with the patient. Source: Old Records Reviewed - Medical History Medical History: Medical History (Last Reviewed 03/12/22 @ 16:28 by Kallie Chang MD) Arthritis COVID-19 Headache High blood cholesterol - Surgical History Surgical History: Surgical History (Last Reviewed 03/12/22 @ 16:28 by Kallie Chang MD) History of breast biopsy right 05/26/2021 History of carpal tunnel release History of cholecystectomy History of foot surgery right - Family History Family History: Family History (Last Reviewed 03/12/22 @ 16:28 by Kallie Chang MD) Brother Lung cancer Father Cancer Mother COPD (chronic obstructive pulmonary disease) - Social History Smoking Status: Former smoker Tobacco Type: cigarettes Substance Use Type: None Home Medications & Allergies Allergies No Known Allergies Allergy (Verified 03/12/22 08:56) Home Medications fqlzdtd-bfkguvlhyxhqz-lsorsgmw 250 mg-250 mg-65 mg tablet (Excedrin Migraine) 1 tab PO Q4-6H PRN Headache 07/08/21 [History Confirmed 03/12/22] citalopram 20 mg tablet 20 mg PO DAILY 07/08/21 [History Confirmed 03/12/22] omeprazole 20 mg capsule,delayed release 20 mg PO DAILY 07/08/21 [History Confirmed 03/12/22] Objective - Height/Weight Height/Weight: Height 5 ft 3 in Weight 89.358 kg BSA for Today's Weight 2.01 - Vital Signs Vital Signs: 03/12/22 08:56 Temperature 97.7 F Pulse Rate [Left Brachial] 60 Respiratory Rate 16 Blood Pressure [Left Arm] 131/85 02 Sat by Pulse Oximetry 98 Oxygen Delivery Method Room Air - Pain Left Shoulder Pain Intensity: 5 Lower Back Pain Intensity: 4 Generalized Left Pain Intensity: 5 Physical Exam Narrative: GENERAL: Alert, pleasant, no acute distress. HEENT: Oral mucosa is pink/moist; no lesions or exudate. Neck supple without adenopathy or thyromegaly. BREAST: Well-healed incisions from right lumpectomy with breast reconstruction/mastopexy. No masses left breast. No axillary fullness or tenderness. HEART: RRR; no murmurs/rubs or gallops; S1 and S2 normal. No edema. LUNGS: CTA bilaterally; no wheezes or crackles. Normal respiratory effort. ABDOMEN: Soft, non tender. BS present x 4 quadrants. No HSM. INTEGUMENTARY: Warm, dry; no skin rashes. LYMPHATICS: No lymphadenopathy appreciated. NEUROLOGICAL: Grossly intact, patient is alert and oriented x 3; normal gait. - ECOG Performance Status ECOG Score: 0 Results - Labs Labs: Diagram of Most Recent CBC and CMP 12/24/21 13:31 12/24/21 13:31 - Impressions Outside records reviewed prior operative note and pathology. - Other Results Results/Comments: Date of Service: 01/07/22 ECH/ECH echo transthoracic: end of therapy Copies to: MD Meghana Wilson MD, FACC~ Weight: 196 lb Performed By: ARNOLD Alexis BSA: 1.9 m2 BP: 131/80 mmHg HR: 67 Reason For Study: end of therapy History: No cardiac history per patient Interpretation Summary Ejection Fraction = 55-60%. The left ventricular size, thickness and function are normal The left ventricular wall motion is normal. Normal strain pattern Normal transthoracic echocardiogram. Assessment and Plan - TNM Staging Staging: Stage II right breast invasive ductal carcinoma grade 3, estrogen receptor 0%, progesterone receptor 0%, HER-2 negative by IHC Clinical stage II with baseline tumor at least 2 or 2.5 cm (In comparison with prior 05/2021 MRI there was interval decrease of dominant mass to 1.5 cm in greatest dimension)--we will continue neoadjuvant therapy as previously written with AC plus pembrolizumab (1) Breast cancer Qualifiers: Breast location: overlapping sites of breast Patient sex: female Laterality: right Patient is a 46-year-old female presenting with 3 discernible masses by mammography (04/22/2021) with needle biopsy confirming triple negative breast cancer. She was initially see in consultation by Dr. Smith at [facility] in [place], [place]; however, due to insurance reasons the [facility]. In reviewing notes from her prior physician from 06/20/2021 she had 3 focal nodules with largest measuring 2 x 1.8 cm 6 o'clock position, 2 additional lesions measuring 1 x 0.7 cm and another 0.9 x 0.6 cm. BI-RADS spot compression view right breast showed persistent 2.4 x 2.2 cm partially obscured round mass with pleomorphic calcifications. She did have breast MRI prior to initiation of neoadjuvant therapy which I do not have records from this from [facility] in [place]. I am requesting this to evaluate her baseline study since transfer of care from Dr. Phoenix to myself. She also had reported normal baseline echo in May 2021. She commenced neoadjuvant Carboplatin/Paclitaxel/Pembrolizumab therapy on 07/22/2021; Our treatment plan will be pembrolizumab 200 mg IV every 3 weeks with weekly paclitaxel 80 mg/m? IV and q. 21 days carboplatin AUC 5 for 4 cycles. This treatment regimen is based on KEYNOTE 522 trial and is now standard of careand NCCN guidelines. After review of her MRI from outside hospital, I will repeat her breast MRI for new baseline here. If stable to responding disease wemay continue prior plan for followed by pembrolizumab every 3 weeks with Adriamycin and cyclophosphamide for 4 cycles. The patient would like reassessment by general surgery for surgical plan and we will determine whether she proceeds with mastectomy or lumpectomy based on his results. Baseline genetic testing returned negative from prior physicians at [facility]. BRCA testing negative Follow-up September is cycle 4 -day 1. Tolerance is overall good-- Proceed with cycle 4 with breast MRI prior to 2-week follow-up in comparison to baseline MRI. This will be useful in surgical planning. I am discussing her case with tertiary breast oncology Dr. Vinh Bucio to see if he concurs withthis plan. If decision is made to commence AC Pembroluzumab we will repeat her echocardiogram prior to this and obtain her prior echo results. --Physical exam may be showing some evidence of response with the lump in the right breast being not as conspicuous as compared to prior notes although it is unclear to evaluate by exam, therefore MRI is ordered. --My plan at this time will be to press on and continue our chemotherapy per plan. I will see her in 2 weeks. 10/08/2021: Patient is here for her last paclitaxel prior to changing agents for neoadjuvant therapy to Adriamycin/cyclophosphamide/pembrolizumab. She is due for follow-up echocardiogram prior to starting anthracycline. She had discussedpotentially changing surgeons to Dr. Reza and I contacted him regarding breast MRI for surgical planning. We will review her prior MRI from [facility] in May 2021 in comparison to most recent MRI (report pending). Of note outside MRI noted no biopsy clips in place and we may need to rebiopsy to place clips at sites of residual tumor masses prior to continuing further neoadjuvant therapy. We will coordinate a time for him to meet with the patientto discuss surgical options of lumpectomy versus mastectomy. Patient will commence her Adriamycin/cyclophosphamide/Pembrolizumab at 10/15/2021 and I will follow-up with her in early October for toxicity visit for tolerance. 10/22/2021: Change to Adriamycin/cyclophosphamide/Pembrolizumab with neutropenia noted but no fever. Echocardiogram at baseline was 55 to 60%. Other than nausea no other significant toxicities. MRI was reviewed and [facility] tumor board with Dr. Reza and he will be arranging evaluation for surgical options. Consultation was placed to him today. We willdose reduce Adriamycin and cyclophosphamide both by 20% due to her neutropenia. Otherwise may proceed with chemotherapy in 2 weeks he can follow-up in 3 weeks either with myself or nurse practitioner for toxicity review. 11/12/2021: Here for cycle 2-day 8 toxicity visit on now 20% dose reduced Adriamycin/cyclophosphamide/Pembrolizumab due to neutropenia without fever last cycle. Persistent fatigue and nausea without mouth ulcers. No neutropenia thiscycle. The patient met with Dr. Reza and will follow-up with her at end oftherapy. She is still not decided whether she would like to proceed with lumpectomy or mastectomy plus minus reconstruction. We will coordinate 3-week follow-up toxicity visit with nurse practitioner cycle 3-day 8--no dose reduction since she does not have any significant cytopenias. 12/03/2021: Here for cycle 3-day 8 toxicity visit on 20% dose reduced Adriamycin/cyclophosphamide/Pembrolizumab with no new toxicities. No cytopeniasare noted. I am coordinating plastic surgery consultation with Dr. Berny Simons prior to evaluation by Dr. Reza to determine surgical approach. She will have 1 more dose of chemotherapy due on 12/17/2021 and will follow-up with nurse practitioner 1 week following her chemo. She will require end of therapy echocardiogram in late December. I will see her in follow-up 2 weeks after her definitive surgery to review pathology and further plan for therapy/surveillance. Moderate complexity visit over 35 minutes for symptom review on chemotherapy, coordination with Dr. Simons and Dr. Reza of breast surgery for surgical plan. 12/24/2021: She is here for toxicity check after completion of 4 cycles of AC+Pembro. She has some lingering fatigue and nausea, but otherwise ok. Labs reviewed and ok. She will schedule follow-up with Dr. Reza to discuss surgical intervention and schedule surgery. We will plan for follow-up 2 weeks postop to discuss final pathology and next steps. She will call us with the scheduled surgery date. Her end of treatment ECHO is scheduled for 01/07/2022. 03/12/2022: Patient returns after right lumpectomy/breast reconstruction/mastopexy 02/17/2022 well-healed without complaints. 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 5 lymph nodes were negative for carcinoma. We discussed referral to radiation oncology after she has well-healed, then she may resume pembrolizumab 200 mg IV every 3 weeks for 9 further cycles as per KEYNOTE 522. No hormonal therapy indicated due to triple negative breast cancer. I will see her in follow-up with immunotherapy labs adjuvant cycle 2-day 1 Pembroluzumab orsooner if new issues arise. High complexity visit over 45 minutes to review outside operative notes, pathology, and to discuss adjuvant radiation and immunotherapy. (2) Lumbar back pain with radiculopathy affecting left lower extremity Lumbar MRI results previously reviewed--degenerative disc disease but no evidence of metastatic cancer. Previously referred to Dr. Jameson Castle for his recommendations. (3) Encounter for antineoplastic immunotherapy Good partial pathologic response with only a small focus of residual DCIS, ER 5%, LA 0%. Referring for adjuvant radiation then we will resume pembrolizumab 200 mg IV every 3 weeks for 9 cycles. - Chemo Plan Chemo Plan (Dose, Rate, Freq): Neoadjuvant Carboplatin/Paclitaxel/Pembrolizumab therapy on 07/22/2021; Our treatment plan will be pembrolizumab 200 mg IV every 3 weeks with weekly paclitaxel 80 mg/m? IV and q. 21 days carboplatin AUC 5 for 4 cycles. This treatment regimen is based on KEYNOTE 522 trial and is now standard of care and NCCN guidelines. --After review of her MRI from outside hospital, I repeated her breast MRI for new baseline here. 10/17/2021: Cycle 1 day 1 pembrolizumab every 3 weeks with Adriamycin and cyclophosphamide for 4 cycles. 20% dose reduction Adriamycin andcyclophosphamide for neutropenia with cycle 2. Number of Cycles: 8 Goal of Treatment: Curative - Time with Patient Time Spent with Patient (Follow Up Visit): 45 minutes or more - High complexity for review of outside records operative note, pathology, discussion of adjuvant radiation and immunotherapy. Good pathologic response with DCIS only on pathology Coordination of Care & Counseling Time: Greater than 50% of time spent with patient was for coordination of care (as documented) and [id number] counseling of patient and/or family. Dictated By: Kallie Chang MD DD/ [id number] Signed By: <Electronically signed by MD Kallie Chang> 03/12/22 1636 [facility] Work Phone: Progress note Author Kallie Chang [facility] September 18, 2022 10:28pm Note Date/Time September 18, 2022 1:44 pm [facility] [place] [address] Hem/Onc Follow Up Note - OP Signed Patient: Tenisha Hancock MR#: [id number] : 1975 Acct:[id number] Age/Sex: 47 / F Type: REG RCR Copies to: MD Eliel Arteaga MD~ Subjective Date/Time of Service: Date of Service: 09/18/2022 Time of Service: 13:43 Chief Complaint: Patient is here today for a 2 week follow up visit for breast cancer. She saw Dr Elizabeth Pérez MD HPI: 09/18/2022: Rachel had an endocrinology consult with Dr. Pérez on 09/16/2022. He recommended changing to hydrocortisone 20mg am/10mg pm which she started yesterday with stable fatigue. She is to complete 6 weeks on hydrocortisone, then he plans to test her ACTH and cortisol off hydrocortisone. Arthralgias andmyalgias have largely resolved. We will see her in mid to late October after her endocrinology followup and determine whether she is able to resume pembrolizumabat that time or continue observation. 30 min moderate complexity to review endocrinology recommendations. 09/04/2022: Rachel is here for 3 week followup on pembrolizumab. She had adrenal insufficiency and immunotherapy-related arthralgia in 06/2022. Therapy was held with improved fatigue and arthralgias after full dose steroids. Labs last week showed recurrent adrenal insufficiency with undetectable cortisol and low ACTH. She also has increased TSH and I will hold her pembrolizumab again and refer to endocrinology for adrenal insufficiency or possibly hypopituitarism. Will resume higher dose Prednisone 40mg daily, then decrease by 10mg each week and add levothyroxine 50mcg daily. Will f/u endocrinology consult in 2 weeks. Moderate complexity 35 minute f/u visit. 08/14/2022: Rachel presents in follow-up for her breast cancer on pembrolizumab.She maintains on 10mg prednisone daily and states her symptoms were definitely improved with her last treatment. She notes fatigue and slept quite a bit still thru last weekend, but has felt more energy this week. She notes her body aches were much less severe but still present. Otherwise she denies new complaints. She would like to continue with treatment for now and follow-up for another tox check after next cycle of pembro to ensure her symptoms continue to improve and don't worsen again after next cycle. 08/06/2022: Rachel is here for 2-week follow-up. She notes that she feels much improved since starting full dose steroids. She is now tapered down to 20 mg daily starting tomorrow. We discussed potential risks and benefits of resuming immunotherapy with pembrolizumab maintenance x1 year. Since she has immunotherapy related adrenal insufficiency, we will complete the next week of prednisone at 20 mg daily, then maintain prednisone dose at 10 mg daily and she wishes to resume pembrolizumab maintenance starting 08/13/2022. We will coordinate follow-up 1 week later with nurse practitioner to review side effects. If well-tolerated she will continue current dosing and follow-up with me at 3 months for exam. Moderate complexity 30-minute follow-up to review symptoms on prednisone taper and coordinate resuming immunotherapy. 07/23/2022: Rachel is here for 1 month follow-up after holding Pembroluzumab dueto multiple suspected immunotherapy related symptoms. She previously was havingdiffuse body aches with difficulty ambulating due to joint pain. Her joint painis now pretty much localized to her wrists and she is ambulating without assistance, however she still has profound fatigue. She was also noted to have persistently low cortisol level of 2.6 with ACTH <1.5 despite compliance with replacement dose hydrocortisone 20 mg a.m., 10 mg p.m. she sometimes notes that she forgets to take the evening dose. CBC shows stable hemoglobin 11 with normal white count and platelets. Sodium mildly low at 135 but otherwise normalelectrolytes and liver function test. TSH and free T4 normal. I recommended increasing steroid dose to prednisone 60 mg daily for 1 week, then 40 mg daily for 1 week then 20 mg daily for 1 week, then 10 mg daily for 1 week with reassessment in 1 month. We will continue to hold Pembroluzumab immunotherapy and reevaluate whether she is able to continue adjuvant immunotherapy or observation only. This is a moderate complexity visit over 30 minutes for review of symptoms with immunotherapy related adrenal insufficiency and myalgias. 06/19/2022: Rachel completed radiation therapy on 06/16/2022: continued nausea with generalized weakness and diffuse body aches. She has pain over joints, pain rising to stand and ambulating. Labs reveal low cortisol and normal ACTH suggesting immunotherapy related adrenal insufficiency, thyroid function normal. We discussed holding pembrolizumab today and starting replacement dose hydrocortisone 20mg am/10mg pm. 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 We may give full dose slow prednisone taper if continued arthralgias on immunotherapy. Will determine whether she continues further pembrolizumab if persistent arthralgia. High complexity 45 minute visit to manage immunotherapy related adrenal insufficiency and arthralgia. 03/12/2022: Rachel is here following her needle localized lumpectomy with oncoplastic reconstruction of right breast with right mastopexy on 02/17/2022 by Drs. Saunders/Drew ([facility]). 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 DCIS had estrogen receptor 5% and progesterone receptor negative therefore she is not a candidate for adjuvant hormonal therapy. -- Prior to neoadjuvant therapy the patient's clinical stage was T2N0 (baseline tumor about 2.5 cm by exam). Pathologic stage is ypTis pN0 pMx (3.5mm). She ishealing well with mild residual pain at sites but no drainage from incisions which are healing well. Due to in situ disease only, she does not require further chemotherapy and we will send her to radiation to discuss radiation for her in situ disease. As per the KEYNOTE-522 study, the patient will receive 9 additional cycles of pembrolizumab every 3 weeks following her radiation therapythen observation. The patient expresses understanding and will return after radiation oncology evaluation to and I will see her for follow-up cycle 2. High complexity 45-minute visit for review of outside operative notes and final pathology after right lumpectomy/reconstruction. 12/24/2021: Rachel presents after completing her 4th and last cycle of Adriamycin, Cytoxan and Pembrolizumab. She notes some lingering fatigue and nausea without vomiting. She also notes a few days of diarrhea with some improvement today. Otherwise she does not admit to any other complaints. Her labs are reviewed and stable overall, no significant cytopenias. She is unsure of her next steps and has a lot of questions related to surgical options as wellas if she will need radiation therapy. She met with Dr. Simons and has an appointment scheduled at [facility] to discuss josep flap surgery as well. We have advised her to follow-up with Dr. Reza to review her options and answer herquestions related to timing with the surgeon and plastic surgeon. We reviewed lumpectomy vs. mastectomy and the role radiation plays as well. We will plan to follow-up 2 weeks postop, and she will call us with her surgery date once decisions have been made. 12/03/2021: Rachel presents for cycle 3, week 2 toxicity check for Adriamycin/Cytoxan/Pembrolizumab. She continues to note fatigue and nausea but has not had any further neutropenia since dose reduction. We are coordinating evaluation by Dr. Simons with plastic surgery as well as Dr. Reza for planned end of therapy with last cycle due on December 17, 2021. The patient is undecided whether she would like to proceed with breast conservation option versus immediate reconstruction with mastectomy. Dr. Simons was contacted to arrange initial evaluation and she may see nurse practitioner for follow-up 1 week after her last cycle of Adriamycin/Cytoxan/Pembrolizumab. I will see her about 2 weeks postoperatively from her definitive therapy to review pathology and any further therapy options at that point. 11/12/2021: Rachel is here for cycle 2, week 2 toxicity check for Adriamycin/Cytoxan/Pembrolizumab. She was given 20% dose reduction Adriamycin and Cytoxan due to neutropenia last cycle and notes that she felt even more fatigued this cycle than prior cycle. She did not have any oral mucositis and met with Dr. Reza but he was unable to review her prior films. She did notrequire any further interventions since surgical clip was placed in the past. She still is undecided whether she will proceed with lumpectomy or mastectomy. I will refer her back for surgical evaluation after completion of her 4 cycles of Adriamycin/Cytoxan/Pembrolizumab. Currently she does not have any cytopeniasnoted recommend proceeding with same dose of therapy. 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 Next follow-up in 3 weeks fortoxicity check or sooner as needed. 10/22/2021: Rachel is here for toxicity check after cycle 1 of Adriamycin/Cytoxan/Pembrolizumab 1 week ago. She notes that she had increased fatigue and persistent nausea and her total white blood cell count is 1200 with ANC 100. No fever, chills, night sweats, or signs or symptoms of infection. Wediscussed dose reduction by 20% due to her neutropenia. Baseline echocardiogramprior to Adriamycin and Cytoxan was 55 to 60%. MRI of the breast was reviewed in comparison to her initial MRI in May 2022 that shows some progression ofher primary breast mass and one of the satellite lesions is no longer identified. Patient does note that after her breast MRI she did undergo placement of clip at the site of her prior lesions. She wanted to transfer her care for surgical evaluation by Dr. Reza and I will place consult for him to evaluate her to plan surgery following 3 more cycles of Adriamycin/Cytoxan/Pembroluzumab. Otherwise she will follow-up for next cycle of chemotherapy in 2 weeks and toxicity visit the following week after 20% dose reduction of both Adriamycin and Cytoxan. 10/08/2021: Rachel is here for followup after completing 4 cycles of neoadjuvant carboplatin AUC 5 with weekly paclitaxel 80 mg/m? and every 3-week Pembroluzumab 200 mg. She is on her last dose of 12-week paclitaxel today. We ordered an MRI on her and reviewed the images with her in clinic today but finalreport is still pending radiology read. I reviewed her case with breast medical oncologist Dr. Vinh Bucio who agreed that patient should likely continue on Adriamycin/Cytoxan/Pembrolizumab every 3 weeks for 4 more cycles as previously written. She had a baseline echocardiogram in May but we will repeat this prior to starting her next round of chemo in 1 week. Her next follow-up for toxicity visit will be cycle 1 week 2 and we will coordinate surgery evaluation based on her breast MRI to review her response to initial therapy. Symptoms are otherwise stable on weekly paclitaxel with minimal neuropathy. I contacted radiology and breast MRI should be read early next week. 09/24/2021: Rachel is a 46-year-old lady who is currently cycle 4-day 1 for neoadjuvant carboplatin AUC 5 (dose adjusted for adjusted body weight), weekly paclitaxel 80 mg/m?, and every 3-week Pembrolizumab 200 mg. She has tolerated chemotherapy reasonably well with nausea and IBS symptoms but she has not had any significant neutropenia. She has not noticed any clinical difference in herbreast exam, although in comparison to prior notes there is a 9 discrete area onexam 3 to 4 cm of thickening in the right 10:00 to 11:00 area. There is no skindimpling or nipple discharge or retraction. I do not feel any palpable masses in the axilla. Although the patient previously saw Dr. Red at diagnosis, she is uncertain of the plan for surgery. Since she had negative genetic testing it is unlikely that she will have bilateral mastectomy and reconstruction, however we can coordinate her evaluation by surgery locally if she wishes. --Otherwise we decided to proceed with her fourth cycle of carboplatin/paclitaxel/Pembrolizumab today. She had a baseline MRI and I will schedule repeat MRI after her fourth cycle and reevaluate her response to disease. Originally Dr. Phoenix had consented her to proceed with Adriamycin and Cytoxan with Pembrolizumab for 4 more cycles following her carboplatin/paclitaxel/Pembrolizumab. I will review this with tertiary breast medical oncologist Dr. Vinh Bucio to determine whether she should proceed with further therapy or be evaluated for surgery. Patient will follow up with me in approximately 2 weeks after her MRI to review subsequent plan of therapy. Previous notes from Dr. Phoenix, last seen 08/18/2021: Tenisha presents August 20, 2021 for cycle 2, day 7 of neoadjuvant chemotherapy for triple negative breast cancer. She does have some progressive alopecia. No nausea vomiting diarrhea. The breast mass in the right breast is not as evidence with deep palpation. Youcan still feel it but it appears to be smaller somewhat. In the right axilla there is a very small pinpoint hard nodule fairly superficial. Her tolerance to therapy to date has been overall good. BRCA testing was done through [employer] and is negative. She does have left foot numbness. MRI was done of the lumbar spine and does show multiple areas of degenerative disc disease. The patient has a known history of problem both in her lumbar spine and what appears in her cervical spine. I will refer her to Dr. Castle for consideration of kyphoplasty or other. I willdefer to his impression and recommendations. MOHEGAN: This is a now 47 year old female, recently diagnosed with triple negative right breast cancer; currently undergoing neoadjuvant pembrolizumab, carboplatin AUC 4and weekly paclitaxel x6 cycles, which commenced: 07/22/2021. This is a 46-year-old female who works at [employer] with triple negative breast cancer, referred for neoadjuvant chemotherapy. Mammogramon on April 22, 2021 showed 3 new focal masses with the largest measuring 2 cm in size in the right breast. 2 additional lesions measuring 1 cm and a second 0.9 cm were also seen. The patient was referred for biopsy. Needle biopsy showed triple negative breast cancer, ER negative, LA negative, and H ER 2 -. The patient was referred to Dr. Ismael Red for [id number] which she has had placed. [facility]. Because of insurance reasons, she will be getting her treatment here at [facility]. She has had echocardiography as well. According the patient an MRI was obtained prior to neoadjuvant therapy while she was at [facility] we are requesting this prior study. She does have a palpable breast mass. It is in the lower mid quadrant of the right breast. Mammogram on on April 22, 2021 showed 3 new focal masses with the largest measuring 2 cm in size in the right breast. 2 additional lesions measuring 1 cmand a second 0.9 cm were also seen. The patient was referred for biopsy. Needle biopsy showed triple negative breast cancer, ER negative, LA negative, and HER 2 -. The patient was referred to Dr. Ismael Red for [id number] which she has had placed. She has [facility]. Because of insurance reasons, she will be getting her treatment here at [facility]. She has had echocardiography as well. PET/CT scan was denied by insurance and she underwent CT scan of the chest/abdomen/pelvis on 07/16/2021 which showed no obvious evidence of distant metastatic disease. As noted above, Cycle 1, Day 1 (Carboplatin/Paclitaxel/Pembrolizumab) commenced 07/22/2021 and this was well tolerated. The patient went home that evening and began to feel flushed, general malaise, etc. She subsequently tested positive for COVID - 19 per PCR the following day, 07/23/2021. Her symptoms were quite mild; however, next cycle of chemotherapy was pushed out 2 days and she is here today for Cycle 1, Day 8 of single agent Paclitaxel. She does have a palpable breast mass in the lower mid quadrant of the right breast; she was concerned about a lump under her right axilla but upon exam wehad trouble locating a discrete nodule or lymph node. Otherwise, her only complaint is continued low back pain with radiculopathy involving the left groin/hip and left lower extremity with associated numbness in left foot. She has known neuroma of the left foot and was in the process of being worked up by pain management (Dr. Monique) for lumbar pain; radiculopathy. - Summary of Therapies Summary of Therapies: 1. Neoadjuvant Carboplatin AUC 5-day 1, Pembrolizumab 200 mg day 1, Paclitaxel 80 mg meter squared weekly each -day cycle for planned 4 cycles: started Cycle1, Day 1: 07/22/2021, cycle 4 09/24/2021 --Plan 10/15/2021: Start Pembrolizumab 200 mg day 1, doxorubicin 60 mg/m? day 1,and cyclophosphamide 600 mg/m? day 1 every 21 days x 4 cycles followed by adjuvant Pembrolizumab 200 mg IV every 21 days x 9 cycles --Original breast MRI obtained from [facility] from May 2021, follow-up breast MRI performed 10/07/2021 for initial response to therapy. Patient requested an opinion from Dr. Reza for planning breast surgery options based on MRI (she does note that prior biopsy clips were placed after her original MRI for further neoadjuvant therapy). -- 20% dose reduction doxorubicin and cyclophosphamide cycle 2 for neutropenia. Last dose of Adriamycin, cyclophosphamide, Pembrolizumab due 12/17/2021. End of therapy echo may be ordered preoperatively in late December. 2. 02/17/2022 at [facility], Drs. Saunders/Shantal: needle localized lumpectomy with oncoplastic reconstruction of right breast with right mastopexy 3. Adjuvant radiation: Right SCV axilla 5000 cGy 05/04-06/07/22 25 fractions over 34 elapsed days. Right breast 5000 cGy 05/04-06/07/22 25 fractions over 34elapsed days. Cavity boost 1000 cGy 06/08-06/16/2022 5 fractions over 8 days. 4. Resumed Immunotherapy Pembrolizumab 200 mg IV every 3 weeks for 9 more cycles--first/only postop dose was 05/28/2022. Stopped 06/18/2022 after 1 postopdose due to immunotherapy related arthralgias/myalgia and adrenal insufficiency. No hormonal therapy indicated for triple negative disease. Continue to hold Pembroluzumab follow-up 07/23/2022 -- Resumed Pembrolizumab 200 mg IV every 3 weeks on 08/14/2022, maintaining prednisone 10 mg daily for immunotherapy related myalgias and adrenal insufficiency. -- Held dose 09/04/2022, resumed prednisone 40mg po daily with addition of levothyroxine 50mcg daily. -- Endocrinology consult 09/16/2022--he placed her back on hydrocortisone 20mg am/10mg pm--6 weeks on replacement dose. Continue to hold Pembrolizumab. ROS Details: All systems reviewed & no additional complaints except as documented Subjective/ROS - Narrative: CONSTITUTIONAL: Improvement of generalized fatigue (now resumed on replacement dose hydrocortisone), negative for fever or night sweats. Still able to performactivities of daily living. HEAD AND NECK: Negative for changes in hearing and vision. Negative for mouth ulcers, nasal congestion and nasal drainage. BREASTS: Status post right lumpectomy with oncoplastic reconstruction/right mastopexy well-healed incisions without tenderness to palpation. No lymphedema or axillary fullness right. Left breast and axilla unremarkable. PULMONARY: Negative for chest pain, cough and dyspnea. CARDIOVASCULAR: Negative for claudication and irregular heartbeat/palpitations. GASTROINTESTINAL: Negative for abdominal pain, constipation, decreased appetite,diarrhea. Denies nausea/vomiting on Prednisone GENITOURINARY: Negative for dysuria and hematuria. ENDOCRINE: Negative for cold intolerance and heat intolerance. Positive for fatigue due to immunotherapy related adrenal insufficiency--started hydrocortisone 20 mg a.m./10 mg p.m. at 06/18/2022 visit--changed to higher dose prednisone 07/23 visit). Significantly improved myalgias at 08/06/2022 visit but worse at 09/04 visit after taper. Repeated Prednisone higher dose pending endocrinology consult. 09/16/2022: endocrinology placed back on hydrocortisone 20mg a.m./10 mg p.m. CENTRAL NERVOUS SYSTEM: Improvement of prior gait disturbance due to myalgia/arthralgia at 07/23 visit but still persistent bilateral wrist pain. Negative for headache. No significant motor neuropathy or focal deficits. PSYCHIATRIC: Negative for anxiety. Positive distress mood regarding recent symptoms. DERMATOLOGICAL: Negative for pruritus and rash. Negative for suspicious skin lesions. MUSCULOSKELETAL: Stable lumbar back pain. New generalized arthralgias and myalgias--noted at 06/18 visit, stopped immunotherapy for symptoms; resumed 08/13,held again 09/04. HEMATOLOGICAL: Negative for bleeding and easy bruising. Negative for history of transfusion or thromboembolic disease. Laboratories with cycle 1 AC Pembroluzumab showed neutropenia without fever. No neutropenia after dose reduction cycle 2. ALLERGY: Negative for environmental allergies and food allergies. [facility] - History Attestation statement: The following information was validated with the patient. Source: Old Records Reviewed - Medical History Medical History: Medical History (Last Reviewed 09/18/22 @ 21:59 by Kallie Chang MD) Arthritis COVID-19 Headache High blood cholesterol - Surgical History Surgical History: Surgical History (Last Reviewed 09/18/22 @ 21:59 by Kallie Chang MD) History of breast biopsy right 05/26/2021 History of carpal tunnel release History of cholecystectomy History of foot surgery right - Family History Family History: Family History (Last Reviewed 09/18/22 @ 21:59 by Kallie Chang MD) Brother Lung cancer Father Cancer Mother COPD (chronic obstructive pulmonary disease) - Social History Smoking Status: Former smoker Tobacco Type: cigarettes Substance Use Type: None Home Medications & Allergies Allergies No Known Allergies Allergy (Verified 09/18/22 13:38) Home Medications [id number]-[id number]-slcilrmp 250 mg-250 mg-65 mg tablet (Excedrin Migraine) 1 tab PO Q4-6H PRN Headache 07/08/21 [History Confirmed 09/18/22] citalopram 20 mg tablet 20 mg PO DAILY 07/08/21 [History Confirmed 09/18/22] omeprazole 20 mg capsule,delayed release 20 mg PO DAILY 07/08/21 [History Confirmed 09/18/22] ondansetron 8 mg disintegrating tablet 8 mg PO Q8H #90 tabs 06/02/22 [Rx Confirmed 09/18/22] levothyroxine 50 mcg tablet (Synthroid) 50 mcg PO DAILY #30 tabs 09/04/22 [Rx Confirmed 09/18/22] hydrocortisone 20 mg tablet 20 mg PO DAILY 09/18/22 [History Confirmed 09/18/22] Objective - Height/Weight Height/Weight: Height 5 ft 3 in Weight 80.4 kg BSA for Today's Weight 1.85 - Vital Signs Vital Signs: 09/18/22 13:38 Temperature 98.0 F Pulse Rate [Left Brachial] 77 Respiratory Rate 16 Blood Pressure [Left Arm] 115/78 02 Sat by Pulse Oximetry 99 Oxygen Delivery Method Room Air - Pain Left Shoulder Pain Intensity: 5 Lower Back Pain Intensity: 4 Pain Location Body Site: Penis Generalized Left Pain Intensity: 5 Generalized Pain Intensity: 8 - Distress Screening Distress Screen Results: RN Distress Screening Start: 07/08/21 15:06 Freq: Q30D Status: Active Protocol: Document 09/04/22 13:16 LB (Rec: 09/04/22 13:17 LB [id number]) Distress Screening Distress Score: 9 Physical Concerns Pain,Trouble Sleeping Emotional Concerns Depression,Worry Distress Screening Total 9 Distress score of 4 or more discussed No with patient? Distress screening follow up: defer to patient navigator Physical Exam Narrative: GENERAL: Alert, pleasant, no acute distress, no longer noted to have hip pain with ambulating and ambulates independently. Exam deferred--see 09/04/2022 exam below HEENT: Oral mucosa is pink/moist; no lesions or exudate. Neck supple without adenopathy or thyromegaly. BREAST: Well-healed incisions from right lumpectomy with breast reconstruction/mastopexy. No masses left breast. No axillary fullness or tenderness. HEART: RRR; no murmurs/rubs or gallops; S1 and S2 normal. No edema. LUNGS: CTA bilaterally; no wheezes or crackles. Normal respiratory effort. ABDOMEN: Soft, non tender. BS present x 4 quadrants. No HSM. INTEGUMENTARY: Warm, dry; no skin rashes. LYMPHATICS: No lymphadenopathy appreciated. MUSCULOSKELETAL: No vertebral tenderness or step-off deformity. No palpable synovitis of joints. NEUROLOGICAL: Grossly intact, patient is alert and oriented x 3; stable gait, nofocal deficits. - ECOG Performance Status ECOG Score: 1 Results - Labs Labs: Diagram of Most Recent CBC and CMP 09/16/22 14:53 09/16/22 14:53 Labs - Last 7 Days 09/16/22 14:53: PHA Creatinine Clear 72.74, Sodium 134 L, Potassium 4.3, Chloride 102, Carbon Dioxide 23.1, Anion Gap 13.2, BUN 15, Creatinine 0.98, Est GFR ( Amer) > 60, Est GFR (Non-Af Amer) > 60, Glucose 176 H, Calcium 9.2,Total Bilirubin 0.6, AST 20, ALT 16, Alkaline Phosphatase 85, Total Protein 6.5,Albumin 3.7, Globulin 2.8, Albumin/Globulin Ratio 1.3 09/16/22 14:53: Corrected WBC 11.5, Uncorrected WBC Count 11.5, RBC 4.14, Hgb 12.5, Hct 38.3, MCV 92.4, MCH 30.2, MCHC 32.7, RDW 15.1, Plt Count 287, MPV 6.9,Neut % (Auto) 91.1, Lymph % (Auto) 6.2, [place] % (Auto) 2.3, Eos % (Auto) 0.1, Baso % (Auto) 0.3, Nucleat RBC Rel Count 0.1, Neut # (Auto) 10.4 H, Lymph # (Auto) 0.7 L, [place] # (Auto) 0.3, Eos # (Auto) 0.0, Baso # (Auto) 0.0 09/16/22 14:53: ACTH <1.5 L 09/16/22 14:53: Free T4 0.84, TSH 3rd Generation 0.51, Total Cortisol 3.7 - Impressions No new imaging for review. 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 Right lumpectomy/breast reconstruction/mastopexy 02/17/2022--small area of ductal carcinoma in situ 3.5 mm but no invasive disease. 5 lymph nodes were negative for carcinoma. (1) Breast cancer Qualifiers: Breast location: overlapping sites of breast Patient sex: female Laterality: right Patient is a now 47-year-old female presenting with 3 discernible masses by mammography (04/22/2021) with needle biopsy confirming triple negative breast cancer. She was initially see in consultation by Dr. Smith at [facility] in [place], [place]; however, due to insurance reasons the [facility]. In reviewing notes from her prior physician from 06/20/2021 she had 3 focal nodules with largest measuring 2 x 1.8 cm 6 o'clock position, 2 additional lesions measuring 1 x 0.7 cm and another 0.9 x 0.6 cm. BI-RADS spot compression view right breast showed persistent 2.4 x 2.2 cm partially obscured round mass with pleomorphic calcifications. She did have breast MRI prior to initiation of neoadjuvant therapy which I do not have records from this from [facility] in [place]. I am requesting this to evaluate her baseline study since transfer of care from Dr. Phoenix to myself. She also had reported normal baseline echo in May 2021. She commenced neoadjuvant Carboplatin/Paclitaxel/Pembrolizumab therapy on 07/22/2021; Our treatment plan will be pembrolizumab 200 mg IV every 3 weeks with weekly paclitaxel 80 mg/m? IV and q. 21 days carboplatin AUC 5 for 4 cycles. This treatment regimen is based on KEYNOTE 522 trial and is now standard of careand NCCN guidelines. After review of her MRI from outside hospital, I will repeat her breast MRI for new baseline here. If stable to responding disease wemay continue prior plan for followed by pembrolizumab every 3 weeks with Adriamycin and cyclophosphamide for 4 cycles. The patient would like reassessment by general surgery for surgical plan and we will determine whether she proceeds with mastectomy or lumpectomy based on his results. Baseline genetic testing returned negative from prior physicians at [facility] clinic. BRCA testing negative Follow-up September is cycle 4 -day 1. Tolerance is overall good-- Proceed with cycle 4 with breast MRI prior to 2-week follow-up in comparison to baseline MRI. This will be useful in surgical planning. I am discussing her case with tertiary breast oncology Dr. Vinh Bucio to see if he concurs withthis plan. If decision is made to commence AC Pembroluzumab we will repeat her echocardiogram prior to this and obtain her prior echo results. --Physical exam may be showing some evidence of response with the lump in the right breast being not as conspicuous as compared to prior notes although it is unclear to evaluate by exam, therefore MRI is ordered. --My plan at this time will be to press on and continue our chemotherapy per plan. I will see her in 2 weeks. 10/08/2021: Patient is here for her last paclitaxel prior to changing agents for neoadjuvant therapy to Adriamycin/cyclophosphamide/pembrolizumab. She is due for follow-up echocardiogram prior to starting anthracycline. She had discussedpotentially changing surgeons to Dr. Reza and I contacted him regarding breast MRI for surgical planning. We will review her prior MRI from [facility] in May 2021 in comparison to most recent MRI (report pending). Of note outside MRI noted no biopsy clips in place and we may need to rebiopsy to place clips at sites of residual tumor masses prior to continuing further neoadjuvant therapy. We will coordinate a time for him to meet with the patientto discuss surgical options of lumpectomy versus mastectomy. Patient will commence her Adriamycin/cyclophosphamide/Pembrolizumab at 10/15/2021 and I will follow-up with her in early October for toxicity visit for tolerance. 10/22/2021: Change to Adriamycin/cyclophosphamide/Pembrolizumab with neutropenia noted but no fever. Echocardiogram at baseline was 55 to 60%. Other than nausea no other significant toxicities. MRI was reviewed and [facility] tumor board with Dr. Reza and he will be arranging evaluation for surgical options. Consultation was placed to him today. We willdose reduce Adriamycin and cyclophosphamide both by 20% due to her neutropenia. Otherwise may proceed with chemotherapy in 2 weeks he can follow-up in 3 weeks either with myself or nurse practitioner for toxicity review. 11/12/2021: Here for cycle 2-day 8 toxicity visit on now 20% dose reduced Adriamycin/cyclophosphamide/Pembrolizumab due to neutropenia without fever last cycle. Persistent fatigue and nausea without mouth ulcers. No neutropenia thiscycle. The patient met with Dr. Reza and will follow-up with her at end oftherapy. She is still not decided whether she would like to proceed with lumpectomy or mastectomy plus minus reconstruction. We will coordinate 3-week follow-up toxicity visit with nurse practitioner cycle 3-day 8--no dose reduction since she does not have any significant cytopenias. 12/03/2021: Here for cycle 3-day 8 toxicity visit on 20% dose reduced Adriamycin/cyclophosphamide/Pembrolizumab with no new toxicities. No cytopeniasare noted. I am coordinating plastic surgery consultation with Dr. Berny Simons prior to evaluation by Dr. Reza to determine surgical approach. She will have 1 more dose of chemotherapy due on 12/17/2021 and will follow-up with nurse practitioner 1 week following her chemo. She will require end of therapy echocardiogram in late December. I will see her in follow-up 2 weeks after her definitive surgery to review pathology and further plan for therapy/surveillance. Moderate complexity visit over 35 minutes for symptom review on chemotherapy, coordination with Dr. Simons and Dr. Reza of breast surgery for surgical plan. 12/24/2021: She is here for toxicity check after completion of 4 cycles of AC+Pembro. She has some lingering fatigue and nausea, but otherwise ok. Labs reviewed and ok. She will schedule follow-up with Dr. Reza to discuss surgical intervention and schedule surgery. We will plan for follow-up 2 weeks postop to discuss final pathology and next steps. She will call us with the scheduled surgery date. Her end of treatment ECHO is scheduled for 01/07/2022. 03/12/2022: Patient returns after right lumpectomy/breast reconstruction/mastopexy 02/17/2022 well-healed without complaints. 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 5lymph nodes were negative for carcinoma. We discussed referral to radiation oncology after she has well-healed, then she may resume pembrolizumab 200 mg IV every 3 weeks for 9 further cycles as per KEYNOTE 522. No hormonal therapy indicated due to triple negative breast cancer. I will see her in follow-up with immunotherapy labs adjuvant cycle 2-day 1 Pembrolizumab or sooner if new issues arise. High complexity visit over 45 minutes to review outside operativenotes, pathology, and to discuss adjuvant radiation and immunotherapy. 06/19/2022: Patient has now completed her adjuvant radiation therapy on 06/16/2022. She resumed her first postop dose of Pembrolizumab on 05/28/2022 and has had intractable arthralgias and myalgias. She is also has had nausea and vomiting and is noted to have cortisol level of 0.2 with normal ACTH. This is consistent with immunotherapy induced adrenal insufficiency. We will hold pembrolizumab today and start hydrocortisone 20 mg a.m./10 mg p.m. reassessed byNP in 1 week to see if arthralgia symptoms are improved. If she has persistent arthralgias and myalgias she may get full dose prednisone with slow taper (prednisone 60 mg x 1 week, 40 mg x 1 week, 20 mg x 1 week, 10 mg x 1 week). Ifarthralgias completely resolved with hydrocortisone therapy we may consider resuming Keytruda for remaining doses. Next follow-up with me will be in around6 weeks or sooner as needed. High complexity visit over 45 minutes to address new toxicities. 07/23/2022: As per HPI the patient has improvement of gait but still has persistent myalgias and arthralgias of bilateral wrists. Also has persistent nausea despite compliance with replacement dose hydrocortisone. Since she has persistent nausea and arthralgias/myalgias with persistently low fasting cortisol she will be treated with full dose prednisone with slow taper (prednisone 60 mg x 1 week, 40 mg x 1 week, 20 mg x 1 week, 10 mg x 1 week). Continue to hold Pembroluzumab and follow-up in about 1 month for symptom review(with nurse practitioner at that time). No evidence of recurrence on clinical exam. Moderate complexity 30-minute follow-up of immunotherapy related toxicities. 08/06/2022: Significant improvement of myalgias since higher dose prednisone dosing with taper. She completed her first 2 weeks and starts 20 mg daily x1 week tomorrow. Due to her adrenal insufficiency I will have her maintain prednisone 10 mg daily. After discussion of risks and benefits she wishes to resume Pembrolizumab on 08/13/2022 and will have toxicity follow-up with Nurse Practitioner the following week. The goal will be to complete 8 more cycles of adjuvant pembrolizumab every 3 weeks. I will see her in follow-up in 3 months for full exam and immunotherapy labs. Is a moderate complexity 35-minute follow-up of her symptoms on prednisone taper, decision to resume immunotherapy. 08/21/2022: She had improvement in her myalgias and fatigue with addition of steroids to her treatment regimen. She maintains on 10mg prednisone currently. Her fatigue was more significant over the weekend after treatment, but this weekhas improved quite a bit. She still had diffuse myalgias, but much improved. Labs stable overall. She will follow-up in 3wks after discussion to see how she tolerates the next cycle and if adjustments will need made to her steroids. Thiswill be discussed further at follow-up. 09/04/2022: Resumed Pembrolizumab 200mg IV on 08/10--now has recurrent adrenal insufficiency with hypothyroidism. Resumed Prednisone 40mg daily taper with newprescription for levothyroxine 50mcg daily. Consult to Endocrinology for further workup. Will continue to hold pembrolizumab and followup in 2 weeks after endocrinology evaluation. Moderate complexity 35 minute followup. 09/18/2022: Consult with endocrinology on 09/16/2022: Recommendation to resume hydrocortisone 20 mg a.m./[address] Pérez will recommend titration of steroid dosing and likely retesting ACTH and cortisol with thyroid studies in about 6 weeks. Continue to hold pembrolizumab until 6 week followup after endocrinology testing for adrenal insufficiency. Moderate complexity 35 minute followup. 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 persistent symptoms at follow-up 07/23/2022 and changed to full dose prednisone with slow taper (prednisone 60 mg x 1 week, 40 mg x 1 week, 20 mg x 1 week, 10 mg x 1 week). 08/06/2022: Symptoms improved with higher dose prednisone. She will resume Pembrolizumab 08/13/2022 and maintain prednisone 10 mg daily. We can titrate prednisone as needed for adrenal insufficiency and myalgias. 08/14/2022: Tolerated pembro better with addition of 10mg prednisone. No repeat ACTH yet 09/04/2022: Holding pembrolizumab again and resuming Prednisone 40mg daily, Levothyroxine, endocrinology consult. 09/18/2022: Dr. Pérez recommended replacement dose hydrocortisone and followup testing in 6 weeks. Continue to hold Pembrolizumab. (3) Hypothyroidism (acquired) Continue levothyroxine 50mcg daily--6 week recheck at endocrinology evaluation. (4) Lumbar back pain with radiculopathy affecting left lower extremity Lumbar MRI results previously reviewed--degenerative disc disease but no evidence of metastatic cancer. Previously referred to Dr. Jameson Castle for his recommendations. Recent cervical MRI consistent with degenerative disc diseases. (5) Arthralgia of multiple sites, bilateral This is also deemed associated with immunotherapy. She has had good response response to prednisone over the last 2 weeks and will resume Pembrolizumab next week with low-dose prednisone therapy. 08/14/2022: Improved with addition of steroids to treatment regimen. Will monitorclosely. As noted above, holding Pembrolizumab 09/04/2022 and resuming higher dose Prednisone. 09/18/2022: No recurrence of myalgias/arthralgia--now resumed on hydrocortisone by Dr. Pérez. Reassess symptoms mid to late October and continue to hold Pembrolizumab. (6) Encounter for antineoplastic immunotherapy Good partial pathologic response with only a small focus of residual DCIS, ER 5%, LA 0%. Completed adjuvant radiation then we resumed pembrolizumab 200 mg IVevery 3 weeks for 9 cycles in May 2022. Pembrolizumab on hold for 2 months for immunotherapy related adrenal insufficiency and arthralgias. Improvement with steroid course and decision to resume therapy 08/13/2022, then stop again with steroids and endocrinology referral 09/04/2022. Continue to hold Pembrolizumab at 09/18/2022 followup after endocrinology consult. - Chemo Plan Chemo Plan (Dose, Rate, Freq): Neoadjuvant Carboplatin/Paclitaxel/Pembrolizumab therapy on 07/22/2021; Our treatment plan will be pembrolizumab 200 mg IV every 3 weeks with weekly paclitaxel 80 mg/m? IV and q. 21 days carboplatin AUC 5 for 4 cycles. This treatment regimen is based on KEYNOTE 522 trial and is now standard of care and NCCN guidelines. --After review of her MRI from outside hospital, I repeated her breast MRI for new baseline here. 10/17/2021: Cycle 1 day 1 pembrolizumab every 3 weeks with Adriamycin and cyclophosphamide for 4 cycles. 20% dose reduction Adriamycin andcyclophosphamide for neutropenia with cycle 2. -- She underwent lumpectomy with sentinel lymph node biopsy 02/17/2022 in [place]. Adjuvant radiation completed 05/04-06/16/2022. Total of 30 fractions. -- Resumed adjuvant Pembrolizumab 05/28/2022. Received 1 cycle and stopped 06/18/2022 due to persistent arthralgias/myalgia and adrenal insufficiency. Resume therapy with Pembrolizumab after response to steroids 08/13/2022, maintainlow-dose prednisone. Continue to hold Pembrolizumab at 09/04 and 09/18/2022 followups. Number of Cycles: 8 Goal of Treatment: Curative - Time with Patient Time Spent with Patient (Follow Up Visit): 35 minutes - Moderate complexity 35 visit for immunotherapy related adrenal insufficiency. Resumed Keytruda 08/13/2021/held 09/04 for recurrent AI/low thyroid. Endocrine consult 09/16--Resumehydrocortisone 6 weeks. Coordination of Care & Counseling Time: Greater than 50% of time spent with patient was for coordination of care (as documented) and [id number] counseling of patient and/or family. Dictated By: Kallie Chang MD DD/ [id number] Signed By: <Electronically signed by MD Kallie Chang> 09/18/22 [address] [facility] Work Phone: Reason for visit NarrativeReferral Dr. [place] T12 [facility] [place] Other Summary Purpose Family History No Family History Records Found Relationship Condition Age at Onset Recorded Date/T vanessa brother Malignant neoplasm of lung Unknown father Malignant neoplasm Unknown Not Specified Chronic obstructive pulmonary disease Un known Advance Directives No Advanced Directives Records Found Advance Directive Response Recorded Date/ Time Advance Directives No July 24, 2020 3:25pm Advance Directive Response Recorded Date/ Time Advance Directives No July 24, 2020 2:25pm Reason for Referral Specialty Diagnoses / Procedures Referred By Ramirez t Referred To Contact Radiology Diagnoses Malignant neoplasm of right female breast, unspecified estrogen receptor status, unspecified site of breast (HCC) Procedures MRI BREAST BILATERAL W WO CONTRAST Diana Murguia P, DO [address] [facility] [address] [place] [id number] Referral ID Status Reason Start Date Expiration Date Visits Re quested Visits Authorized [id number] Closed 02/03/2022 01/28/2023 1 1 Chief Complaint and Reason for Visit Chief Complaint Breast Cancer R Breast Wound Reason for Visit Breast cancer Encounter for antineoplastic immunotherapy Encounter for chemotherapy management Lumbar back pain with radiculopathy affecting left lower extremity Chemotherapy-induced neutropenia Chief Complaint R Breast Wound Breast Cancer Reason for Visit Breast cancer Encounter for antineoplastic immunotherapy Encounter for chemotherapy management Lumbar back pain with radiculopathy affecting left lower extremity Chemotherapy-induced neutropenia Chief Complaint R29.898 Breast Cancer Reason for Visit Adrenal 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 Arthralgia of multiple sites, bilateral Encounter for coordination of complex care Breast cancer Encounter for antineoplastic immunotherapy Encounter for chemotherapy management Lumbar back pain with radiculopathy affecting left lower extremity Chemotherapy-induced neutropenia Chief Complaint R29.898 Breast Cancer Reason for Visit Adrenal 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 Arthralgia of multiple sites, bilateral Breast cancer Encounter for antineoplastic immunotherapy Encounter for chemotherapy management Encounter for coordination of complex care Lumbar back pain with radiculopathy affecting left lower extremity Chemotherapy-induced neutropenia Chief Complaint R29.898 Breast Cancer Reason for Visit Adrenal 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 Breast cancer Encounter for antineoplastic immunotherapy Encounter for chemotherapy management Encounter for coordination of complex care Lumbar back pain with radiculopathy affecting left lower extremity Arthralgia of multiple sites, bilateral Chemotherapy-induced neutropenia Chief Complaint Breast Cancer Reason for Visit Hypothyroidism (acqu ired) 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 Breast cancer Encounter for antineoplastic immunotherapy Encounter for chemotherapy management Encounter for coordination of complex care Lumbar back pain with radiculopathy affecting left lower extremity Arthralgia of multiple sites, bilateral Chemotherapy-induced neutropenia Additional Source Comments Source Comments (unrecognize d section and content) In the event this informatio n is protected by the Federal Confidentiality of Alcohol and Drug Abuse Patient Records regulations: The Federal rules restrict any use of the information to criminally investigate or prosecute any alcohol or drug abuse patient.[facility] the event this information is protected by the Federal Confidentiality of Alcohol and Drug Abuse Patient Records regulations: The Federal rules restrict any use of the information to criminally investigate or prosecute any alcohol or drug abuse patient.[facility] SystemIn the event this information is protected by the Federal Confidentiality of Alcohol and Drug Abuse Patient Records regulations: The Federal rules restrict any use of the information to criminally investigate or prosecute any alcohol or drug abuse patient.[facility] SystemIn the event this information is protected by the Federal Confidentiality of Alcohol and Drug Abuse Patient Records regulations: The Federal rules restrict any use of the information to criminally investigate or prosecute any alcohol or drug abuse patient.[facility] Reason for Visit (unrecogniz ed section and content) Reason Comments Appointment Reason Comments Consult Specialty Diagnoses / Procedures Referred By Ramirez t Referred To Contact Radiology Diagnoses Malignant neoplasm of right female breast, unspecified estrogen receptor status, unspecified site of breast (HCC) Procedures MRI BREAST BILATERAL W WO CONTRAST Diana Murguia, DO [address] [place] [address] Referral ID Status Reason Start Date Expiration Date Visits Re quested Visits Authorized [id number] Closed 02/03/2022 01/28/2023 1 1 Specialty Diagnoses / Procedures Referred By Daryaac t Referred To Contact Diagnoses Malignant neoplasm of right female breast, unspecified estrogen receptor status, unspecified site of breast (HCC) Malignant neoplasm of right female breast, unspecified estrogen receptor status, unspecified site of breast (HCC) [C50.911] Procedures LA MASTECTOMY, PARTIAL LA OFFICE/OUTPT VISIT,PROCEDURE ONLY LA BREAST REDUCTION NEEDLE DIRECTED @ 800 RIGHT BREAST LUMPECTOMY WITH SENTINEL NODE BIOPSY @ 830 WITH FROZEN SECTION AND POSSIBLE AXILLARY LYMPH NODE DISSECTION ONCOPLASTIC RECONSTRUCTION RIGHT BREAST WITH JOSE R INCISIONAL VAC AND PEC BLOCK Diana Murguia, DO [address] [facility] [address] [place] [address] [facility] [address] [place] [address] Referral ID Status Reason Start Date Expiration Date Visits Re quested Visits Authorized [id number] 1 1 Specialty Diagnoses / Procedures Referred By Ramirez t Referred To Contact Diagnoses Malignant neoplasm of unspecified site of right female breast Procedures HC NM LYMPHATICS,LYMPH GLAND IMAGING [facility] Nuclear Medicine [address] [place] [id number] [facility] [address] [place] [address] Referral ID Status Reason Start Date Expiration Date Visits Re quested Visits Authorized [id number] 1 1 Care Teams (unrecognized sec tion and content) Team Status: Active Member Role Status Dates Eliel Hurd MD Primary Care Provider Active Team Status: Inactive Member Role Status Dates Eliel Hurd MD Primary Care Provider Active Eliazar Gibson MD Attending Provider Active Team Status: Active Member Role Status Dates Eliel Hurd MD Primary Care Provider, Referring Pro vider Active Kallie Chang MD Attending Provider Active 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 Start Date End Date Jasbir Limon MD [facility] [place] [phone] PCP - General 10/28/00 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 Start Date End Date Jasbir Limon MD [address] [place] [phone] (Fax) PCP - General 10/28/00 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 Start Date End Date Jasbir Limon MD [address] [place] [phone] (Fax) PCP - General 10/28/00 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 Start Date End Date Eliel Hurd [address] [place] [address] PCP - General Specialist 02/04/22 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 Start Date End Date Eliel Hurd [address] [place] [address] PCP - General Specialist 02/04/22 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 Start Date End Date Eliel Hurd [address] [place] [address] PCP - General Specialist 02/04/22 Team Status: Active Member Role Status Dates Eliel Hurd MD Primary Care Provider Active NON STAFF Attending Provider Active Team Status: Inactive Member Role Status Dates Eliel Hurd MD Primary Care Provider Active Larissa Saunders MD Attending Provider Active Team Status: Active Member Role Status Dates Eliel Hurd MD Primary Care Provider, Referring Pro vider Active Kallie Chang MD Attending Provider Active Stacie Thomas MD Active Team Status: Inactive Member Role Status Dates Eliel Hurd MD Primary Care Provider Active Adam Vickers DO Attending Provider Active INFORMATION SOURCE (unrecogn ized section and content) DATE CREATED AUTHOR 02/03/2022 [facility] DATE CREATED AUTHOR AUTHOR'S ORGANIZ ATION 02/21/2022 [facility] DATE CREATED AUTHOR AUTHOR'S ORGANIZ ATION 03/24/2022 [facility] DATE CREATED AUTHOR AUTHOR'S ORGANIZ ATION 12/02/2022 [facility] DATE CREATED AUTHOR AUTHOR'S ORGANIZ ATION 03/09/2023 [facility] DATE CREATED AUTHOR AUTHOR'S ORGANIZ ATION 04/20/2023 [facility] DATE CREATED AUTHOR AUTHOR'S ORGANIZ ATION [facility]20[facility] Ordered Prescriptions (unrec ognized section and content) Prescription Sig Dispensed Refills Start Date End Da te gabapentin (NEURONTIN) 300 MG capsule Take 1 capsule by mouth in the morning and 1 capsule at noon and 1 capsule before bedtime. Do all this for 14 days. Intended supply: 90 days. 42 capsule 0 02/17/2022 03/03/2022 baclofen (LIORESAL) 10 MG tablet Take 1 tablet by mouth in the morning and 1 tablet at noon and 1 tablet before bedtime. Do all this for 10 days. 30 tablet 0 02/17/2022 02/27/2022 HYDROcodone-acetaminophe n (NORCO) 5-325 MG per tabletIndications:Status post breast lumpectomy,Status post breast reconstruction Take 1 tablet by mouth every 6 hours as needed for Pain for up to 5 days. Intended supply: 5 days. Take lowest dose possible to manage pain 20 tablet 0 02/17/2022 02/22/2022 Scheduled Active and Recently Administ ered Medications (unrecognized section and content) Medication Order 02/15/2022 02/16/2022 02/17/2022 ceFAZolin (ANCEF) 2000 mg in dextrose 5 % 50 mL IVPB (COMPLETED) 2,000 mg, IntraVENous, ONCE, 1 dose, On Wed02/17/22 at 0745, Antimicrobial Indications: Surgical Prophylaxis, Pre-op (day of surgery) 1047 (Given - Provid er: Valerie Davila CLINICAL TRIAL EDUCATOR - EMPLOYEE RELATIONS CONSULTANT) diphenhydrAMINE (BENADRYL) injection 12.5 mg (COMPLETED) 12.5 mg, IntraVENous, ONCE, 1 dose, On Wed02/17/22 at 0800, Pre-op (day of surgery) 0750 (Given - Provid er: Deloris Alejandra RN) pantoprazole (PROTONIX) injection 40 mg (COMPLETED) 40 mg, IntraVENous, ONCE, 1 dose, On Wed02/17/22 at 0815, Reconstitute with 10 mL 0.9 % sodium chloride and administer over at least 2 minutes., STAT 0812 (Given - Provid er: Deloris Alejandra RN) scopolamine (TRANSDERM-SCOP) transdermal patch 1 patch 1 patch, TransDERmal, Administer over 72 Hours, ONCE, On Wed02/17/22 at 0800, For 1 dose, 1.5 mg patch delivers 1 mg over 3 days. Apply patch to hairless area behind the ear., Pre-op (day of surgery) 0750 (Patch Applied - Provider: Deloris Alejandra RN - Comment: Behind right ear) sodium chloride flush 0.9 % injection 5-40 mL 5-40 mL, IntraVENous, EVERY 12 HOURS SCHEDULED (2 times per day), First dose on Wed02/17/22 at 0900, Until Discontinued, For Line Patency: Peripheral IV = 5 mL; Midline or Central Line = 10 mL/lumen. If following IV push medication, administer flush at same rate as the IV push. Flush volume is determined by type of infusion therapy being given. For non-viscous solutions use: Peripheral IV = 5 mL Midline or Central Line = 10 mL/lumen For viscous solutions (i.e. blood components, parenteral nutrition, contrast media, or after obtaining blood sample) use: Peripheral IV = 10 mL Midline or Central Line = 20 mL/lumen, Pre-op (day of surgery) 0900 (Due)2100 (Due) sodium chloride flush 0.9 % injection 5-40 mL 5-40 mL, IntraVENous, EVERY 12 HOURS SCHEDULED (2 times per day), First dose on Wed02/17/22 at 2100, Until Discontinued, For Line Patency: Peripheral IV = 5 mL; Midline or Central Line = 10 mL/lumen. If following IV push medication, administer flush at same rate as the IV push. Flush volume is determined by type of infusion therapy being given. For non-viscous solutions use: Peripheral IV = 5 mL Midline or Central Line = 10 mL/lumen For viscous solutions (i.e. blood components, parenteral nutrition, contrast media, or after obtaining blood sample) use: Peripheral IV = 10 mL Midline or Central Line = 20 mL/lumen, PACU only 2100 (Due) Continuous Medication Order 02/15/2022 02/16/2022 02/17/2022 lactated ringers infusion IntraVENous, at 125 mL/hr, CONTINUOUS, Starting on Wed02/18/22 at 0000, Pre-op (day of surgery) 0737 (New Bag - Prov ider: Deloris Alejandra RN)1022 (NoRateChange - Provider: Valerie Davila APRN - EMPLOYEE RELATIONS CONSULTANT)1148 (Paused - Provider: PETE Pereira CRNA - Comment: Switch to gravity)1149 (New Bag - Provider: Valerie Davila APRN - EMPLOYEE RELATIONS CONSULTANT)1318 (Anesthesia Volume Adjustment - Provider: Valerie Davila APRN - EMPLOYEE RELATIONS CONSULTANT)1615 (Stopped - Provider: Ashlie Baron RN) PRN Medication Order 02/15/2022 02/16/2022 02/17/2022 0.9 % sodium chloride infusion IntraVENous, at 5-250 mL/hr, PRN, if patient receiving piggyback infusions and maintenance fluids are not ordered OR KVO fluids to protect IV site / prevent frequent line interruptions/ long duration, Starting on Wed02/17/22 at 0724, For piggyback infusion, administer at same rate as piggyback for a total of 25 mL. Enter 25 mL into dose field and piggyback rate into rate field of order. If piggyback is infusing at a rate less than 100 mL/hr, enter 25 mL into dose field and 100 mL/hr into rate field of order. For KVO fluids, enter rate of 20 mL/hr or less into rate field of order., Pre-op (day of surgery) 0.9 % sodium chloride infusion IntraVENous, at 5-250 mL/hr, PRN, if patient receiving piggyback infusions and maintenance fluids are not ordered OR KVO fluids to protect IV site / prevent frequent line interruptions/ long duration, Starting on Wed02/17/22 at 1426, For piggyback infusion, administer at same rate as piggyback for a total of 25 mL. Enter 25 mL into dose field and piggyback rate into rate field of order. If piggyback is infusing at a rate less than 100 mL/hr, enter 25 mL into dose field and 100 mL/hr into rate field of order. For KVO fluids, enter rate of 20 mL/hr or less into rate field of order., PACU only fentaNYL (SUBLIMAZE) injection 25 mcg 25 mcg, IntraVENous, EVERY 5 MIN PRN, 4 doses, Starting on Wed02/17/22 at 1426, Until Discontinued, Pain Moderate (4-6), Phase I - Initial therapy for moderate pain., PACU only 1453 (Given - Provid er: Ashlie Baron RN) HYDROmorphone HCl PF (DILAUDID) injection 0.25 mg HYDROmorphone (DILAUDID) 1.5mg IV is equivalent to morphine 10mg IV, 0.25 mg, IntraVENous, EVERY 5 MIN PRN, 4 doses, Starting on Wed02/17/22 at 1426, Until Discontinued, Pain Severe (7-10), Phase I - Initial therapy for severe pain., PACU only lidocaine (LMX) 4 % cream (COMPLETED) Topical, As Directed - RT (PRN), Pain, Starting on Wed02/17/22 at 0724, For 1 dose, Apply to right breast., Pre-op (day of surgery) 0731 (Given - Provid er: Deloris Alejandra RN - Comment: Right breast) lidocaine PF 1 % injection 1 mL 1 mL, IntraDERmal, ONCE PRN, 1 dose, Starting on Wed02/18/22 at 0000, Until Wed02/18/22 at 2359, IV start, Pre-op (day of surgery) ondansetron (ZOFRAN) injection 4 mg (COMPLETED) 4 mg, IntraVENous, ONCE PRN, 1 dose, Starting on Wed02/17/22 at 1426, Until Wed02/17/22 at 2359, Nausea, Initial antiemetic therapy., PACU only 1624 (Given - Provid er: Ashlie Baron RN) sodium chloride flush 0.9 % injection 5-40 mL 5-40 mL, IntraVENous, PRN, Starting on Wed02/17/22 at 0724, Until Discontinued, Line Care, After every IV line use, For Line Patency: Peripheral IV = 5 mL; Midline or Central Line = 10 mL/lumen. If following IV push medication, administer flush at same rate as the IV push. Flush volume is determined by type of infusion therapy being given. For non-viscous solutions use: Peripheral IV = 5 mL Midline or Central Line = 10 mL/lumen For viscous solutions (i.e. blood components, parenteral nutrition, contrast media, or after obtaining blood sample) use: Peripheral IV = 10 mL Midline or Central Line = 20 mL/lumen, Pre-op (day of surgery) sodium chloride flush 0.9 % injection 5-40 mL 5-40 mL, IntraVENous, PRN, Starting on Wed02/17/22 at 1426, Until Discontinued, Line Care, After every IV line use, For Line Patency: Peripheral IV = 5 mL; Midline or Central Line = 10 mL/lumen. If following IV push medication, administer flush at same rate as the IV push. Flush volume is determined by type of infusion therapy being given. For non-viscous solutions use: Peripheral IV = 5 mL Midline or Central Line = 10 mL/lumen For viscous solutions (i.e. blood components, parenteral nutrition, contrast media, or after obtaining blood sample) use: Peripheral IV = 10 mL Midline or Central Line = 20 mL/lumen, PACU only Goals (unrecognized section and content) Goals may be documented in a n alternate section FOR RECORDS PERTAINING TO PATIENTS WHO ARE OR HAVE BEEN ENROLLED IN A CHEMICAL DEPENDENCY/SUBSTANCEABUSE PROGRAM, SOME INFORMATION MAY BE OMITTED. This clinical summary was aggregated from multiple sources. Caution should be exercised in using it in the provision of clinical care. This summary normalizes information from multiple sources, and as a consequence, information in this document may materially change the coding, format and clinical context of patient data. In addition, data may be omitted in some cases. CLINICAL DECISIONS SHOULD BE BASED ON THE PRIMARY CLINICAL RECORDS. [employer] [facility]. provides no warranty or guarantee of the accuracy or completeness of information in this document.
[2023-07-20 11:59] LABS: Alanine Aminotransferase 49 U/L (14-59); Albumin Globulin Ratio 0.9; Albumin Level 3.5 g/dL (3.4-5.0); Alkaline Phosphatase 132 U/L (46-116); Aspartate Amino Transferase 30 U/L (15-37); Bilirubin Direct 0.1 mg/dL (0.0-0.2); Bilirubin Total 0.3 mg/dL (0.2-1.0); Chol HDL Ratio 2.6; Cholesterol 178 mg/dL (<=200); Globulin 3.8 g/dL; HDL Cholesterol 68 mg/dL (40-60); Total Protein 7.3 g/dL (6.4-8.2); Triglycerides 96 mg/dL (<=150); VLDL CHOLESTEROL 19.2 mg/dL
== END 2023-07-20 09:55 | disposition home or self-care (01) ==
LOC: LAB 09:54
PROVIDERS: PCP Internal Medicine; Visit Provider Internal Medicine
DX: E78.5 Hyperlipidemia, unspecified (principal)
CPT/HCPCS: 36415; 80061; 80076

== ENCOUNTER 2023-07-30 08:50 | Outpatient (OUT) | payer BC, SELFPAY ==
--- OUTSIDE RECORDS SUMMARY | 2023-07-30 08:56 | XMS_ITS | CCD ---
Author Name Unknown Address [address] [place] [address] Organization [facility] Care Team Providers Care Relay Tester Name Role Phone Jasbir Limon Primary Care Provider Franco Stokes Unavailable Jasbir Limon MD Primary Care Provider Eliel Hurd Primary Care Provider [phone] BRYAN MURGUIAANCE P Admitting Unavailable SHANTAL, DIANA P Attending Unavailable ELIEL HURD Primary Care Unavailable BRYAN MURGUIAANCE P Referring Unavailable ELIEL HURD Primary Care Unavailable MD Eliel Hurd Primary Care Provider [phone] MD Eliel Hurd Referring Provider MD Kallie Chang Attending Provider [phone] NON STAFF Attending Provider Unavailable MD Eliel Hurd Primary Care Provider MD Eliel Hudr Referring Provider [phone] MD Kallie Chang Attending Provider BRYAN MURGUIAANCE P Referring Unavailable ELIEL HURD Primary Care Unavailable ELIEL HURD Primary Care Unavailable DIANA MURGUIA P Referring Unavailable MD Eliel Hurd Primary Care Provider [phone] MD Larissa Saunders Attending Provider [phone] MD Eliel Hurd Referring Provider MD Kallie Chang Attending Provider MD Eliel Hurd Primary Care Provider MD Larissa Saunders Attending Provider MD Eliel Hurd Referring Provider [phone] MD Kallie Chang Attending Provider MD Eliel Hurd Primary Care Provider [phone] DO Adam Vickers Attending Provider MD Eliel Hurd Referring Provider MD Kallie Chang Attending Provider [phone] MD Eliel Hurd Referring Provider MD Kallie Chang Attending Provider [phone] MD Eliel Hurd Referring Provider MD Kallie Chang Attending Provider MD Eliel Hurd Primary Care Provider MD Eliel Hurd Referring Provider MD Kallie Chang Attending Provider [phone] MD Eliel Hurd Primary Care Provider MD Eliel Hurd Referring Provider [phone] MD Kallie Chang Attending Provider EARNEST HDZ Admitting Unavailable HURD ., DR ELIEL Rouse Primary Care Unavailable EARNEST HDZ Attending Unavailable EARNEST [employer] Consulting Unavailable HURD ., DR ELIEL Rouse Attending Unavailable HURD ., DR ELIEL Rouse Consulting Unavailable HURD ., DR ELIEL Rouse Primary Care Unavailable HURD ., DR ELIEL Rouse Admitting Unavailable ZIEBER, DR BARBRE Christianson Consulting Unavailable HURD ., DR ELIEL Rouse Attending Unavailable HURD ., DR ELIEL Rouse Admitting Unavailable HURD ., DR ELIEL Rouse Consulting Unavailable HURD ., DR LEIEL Rouse Primary Care Unavailable VERNELL ., DR FREITAS Consulting Unavailable VERNELL ., DR FREITAS Admitting Unavailable HURD ., DR ELIEL Rouse Primary Care Unavailable VERNELL ., DR FREITAS Attending Unavailable [place], DR KRISTA Delgado Consulting Unavailable HURD ., DR ELIEL Rouse Primary Care Unavailable VERNELL ., DR FREITAS Admitting Unavailable VERNELL ., DR FREITAS Attending Unavailable VERNELL ., DR FREITAS Consulting Unavailable BRIEN KOEHLER Admitting Unavailable SHAIKH Jun HEARN Primary Care Unavailable BRIEN KOEHLER Attending Unavailable [facility] Consulting Unavailable DI ., DR ELIEL Rouse Primary Care Unavailable MONIQUE ., DR KAITLIN Norton Admitting Unavailable MONIQUE ., DR KAITLIN Norton Attending Unavailable GIEDJESSIE, ANDRI Admitting Unavailable JUAN RICE Referring Unavailable SHAIKH Jun HEARN Primary Care Unavailable GIBUD, ANDVENKAT Attending Unavailable Elham POZO, Booker Briones Attending Unavailable Elham POZO, Booker Briones Attending Unavailable MD Eliel Hurd Primary Care Provider [phone] MD Eliazar Gibson Attending Provider Eliel Hurd Primary Care Unavailable Eliazar Gibson Admitting Unavailable Eliazar Gibson Attending Unavailable Rizwan Vickers Admitting Unavailab Rizwan Schuster Attending UnavailEliel Taylor Primary Care Unavailable Kallie Chang Attending Unavailable Eliel Hurd Primary Care Unavailable Eliel Hurd Referring Unavailable Kallie Chang Admitting Unavailable Ismael BERMAN Attending Unavailable SYDNIE LITTLE Primary Care Unavailable Allergies Allergy Classification Reported Allergen(s) Allergy Type Date of Onset Reaction(s) Facility (1 source) No Known Medication Allergies; Translations: [No Known Medication Allergies] Propensity to adverse reactions (disorder) [facility] Repository Medications Current Medications Medication [...] every six hours as needed for headache uyqohmc-nkhpmwzyudpvo-qzmiolhk (EXCEDRIN MIGRAINE) 250-250-65 MG per tablet Take [...] Range Facility Physician Referralon 023 Physician Referral [id number] 1 [id number] .[id number] Normal [facility] Physician Referralon 023 Physician Referral [id number] 0 [id number] .[id number] Normal [facility] LEONARD Antinuclear Antibodieson 04-07-2023 Antinuclear Abs, IFA Positive Critically abnormal . [facility] Comment on above: Result Comment: Nega tive <1:80 Borderline 1:80 Positive >1:80 Performed By: #### C RAYMON CBC #### [facility] [address] Homogeneous Pattern 1:80 Normal . [facility] Comment on above: Result Comment: ICAP nomenclature: AC-1 Performed By: #### C RAYMON, CBC #### [facility] [address] [place] [id number] [facility] Note 1 Normal . [facility] Comment on above: Result Comment: For more [...] titers Nucleosomes, Histones Drug-induced SLE Speckled Sm, BUNKER WORKER, SCL-70, SLE,MCTD,PSS (diffuse form), SS-A/SS-B Sjogrens Nucleolar SCL-70, PM-1/SCL High titers Scleroderma, PM/DM Centromere Centromere PSS (limited form) w/Crest syndrome variable Nuclear Dot Sp100,[id number] Primary Biliary Cirrhosis Nuclear GP210, Primary Biliary Cirrhosis Membrane scarlett A,B,C Performed at: [address] [id number] Grant Officer: Red Sena PhD, Phone: [phone] PERFORMED BY: [place] [address] PATHOLOGIST CORRECTIONAL LIEUTENANT CHITO HENDRICKS M.D. Performed By: #### C MP, CBC #### [facility] [address] [place] [address] [place] Speckled Pattern 1:160 High . [facility] Comment on above: Result Comment: ICAP nomenclature: AC-2,4,5,29 Performed By: #### C MP, CBC #### [facility] [address] [place] [address] [place] C reactive protein [Mass/vol ume] in Serum or PlasmaOrdered By: Eliazar Gibson on 04-07-2023 CRP [Mass/Vol] < 0.5 mg/dL 0.0-0.5 [facility] C-Reactive Proteinon 023 CRP [Mass/Vol] mg/L Normal 0.0-0.5 [facility] Comment on above: Result Comment: PERF ORMED BY: [place] [address] PATHOLOGIST CORRECTIONAL LIEUTENANT CHITO HENDRICKS M.D. Performed By: #### C MP, CBC #### [facility] [address] [place] [address] Erythrocyte Sedimentation Ra logan 04-07-2023 ESR (Bld) [Velocity] 22 mm/h High 0- [facility] Comment on above: Result Comment: PERF ORMED BY: [place] [address] PATHOLOGIST CORRECTIONAL LIEUTENANT CHITO HENDRICKS M.D. Performed By: #### C MP, CBC #### [facility] [address] [place] [address] Erythrocyte sedimentation ra te by Photometric methodOrdered By: Eliazar Gibson on 04-07-2023 ESR Photometric method (Bld) [Velocity] 22 mm/hr 0 [facility] Retail - Clinical Noteon Retail - Clinical Note [id number]. [id number] Normal [facility] Free T4 (Free Thyroxine)on 0 11-16-2022 Free T4 [Mass/Vol] 1.03 ng/dL Normal 0.61-1.12 [facility] Comment on above: Performed By: #### C MP, TSH3, RAÚL, T4F #### [facility] [address] [place] [address] Serum or plasma thyroperoxid ase antibody assay (units/volume)Ordered By: Elizabeth Pérez on 11-16-2022 TPO Ab Qn 13 [IU]/mL [facility] Comment on above: Performed at: [facility] [address] [id number] Director: Red Sena PhD, Phone: [phone] Thyroid Peroxidase Antibodie son 11-16-2022 Thyroid Peroxidase Antibodies 13 Normal - [facility] Comment on above: Result Comment: Perf ormed at: CB - [facility] [address] [id number] Grant Officer: Red Sena PhD, Phone: [phone] PERFORMED BY: [place] [address] PATHOLOGIST CORRECTIONAL LIEUTENANT CHITO HENDRICKS M.D. Performed By: #### C MP, TSH3, RAÚL, T4F #### [facility] [address] [place] [address] [place] Thyroid Stimulating Hormoneo n 11-16-2022 TSH Qn 1.03 m[IU]/L Normal 0.45-5.33 [facility] Comment on above: Result Comment: PERF ORMED BY: [place] [address] PATHOLOGIST CORRECTIONAL LIEUTENANT CHITO HENDRICKS M.D. Performed By: #### C MP, TSH3, RAÚL, T4F #### [address] [address] [place] Thyrotropin [Units/volume] i n Serum or PlasmaOrdered By: Elizabeth Pérez on 11-16-2022 TSH Qn 1.03 m[IU]/L 0.45-5.33 [facility] Thyroxine (T4) free [Mass/vo lume] in Serum or PlasmaOrdered By: Elizabeth Pérez on 11-16-2022 Free T4 [Mass/Vol] 1.03 ng/dL 0.61-1.12 [facility] Triiodothyronine (T3) Freeon 11-16-2022 Triiodothyronine (T3) Free 4.39 pg/mL High 2.50-3.90 [facility] Comment on above: Result Comment: PERF ORMED BY: [address] [address] PATHOLOGIST CORRECTIONAL LIEUTENANT CHITO HENDRICKS M.D. Performed By: #### C MP, CBC #### [facility] [address] [place] [address] [facility] Triiodothyronine (T3) Free [ Mass/volume] in Serum or PlasmaOrdered By: Elizabeth Pérez on 11-16-2022 Free T3 [Mass/Vol] 4.39 pg/mL 2.50-3.90 [facility] Adrenocorticotropic Hormone PLon 09-16-[address] <1.5 Low 7.2-63.3 [facility] Comment on above: Result Comment: ACTH reference interval for samples collected between 7 and 10 AM. Performed at: - [facility] [address], [place], [place] [id number] Grant Officer: Red Sena PhD, Phone: [phone] PERFORMED BY: [place] [address] PATHOLOGIST CORRECTIONAL LIEUTENANT CHITO HENDRICKS M.D. Performed By: #### C BC, CMP #### [address] Albumin [Mass/volume] in Bod y fluidOrdered By: Kallie Chang on 09-16-2022 Albumin (Body fld) [Mass/Vol] 3.7 g/dL 3.2-5.5 [facility] Alkaline phosphatase [Enzyma tic activity/volume] in Serum or PlasmaOrdered By: Kallie Chang on 09-16-2022 ALP [Catalytic activity/Vol] 85 U/L 32-92 [facility] Aspartate aminotransferase [ Enzymatic activity/volume] in Serum or PlasmaOrdered By: Kallie Chang on 09-16-2022 AST [Catalytic activity/Vol] 20 U/L 10-42 [facility] Basophils Auto (Bld) [#/Vol] Ordered By: Kallie Chang on 09-16-2022 Basophils (Bld) [#/Vol] 0.0 10*3/uL 0.0-0.2 [facility] Basophils/100 WBC Auto (Bld) Ordered By: Kallie Chang on 09-16-2022 Basophils/100 WBC (Bld) 0.3 % . [facility] Bilirubin.total [Mass/volume ] in Serum or PlasmaOrdered By: Kallie Chang on 09-16-2022 Bilirubin [Mass/Vol] 0.6 mg/dL 0.3-1.2 [facility] Calcium [Mass/volume] in Ser um or PlasmaOrdered By: Kallie Chang on 09-16-2022 Calcium [Mass/Vol] 9.2 mg/dL 8.2-10.2 [facility] Carbon dioxide, total [Moles /volume] in Serum or PlasmaOrdered By: Kallie Chang on 09-16-2022 CO2 [Moles/Vol] 23.1 mmol/L 22.0-30.0 [facility] Chloride [Moles/volume] in S nathaly or PlasmaOrdered By: Kallie Chang on 09-16-2022 Chloride [Moles/Vol] 102 mmol/L 95-114 [facility] Complete Blood Count Auto Di ffon 09-16-2022 Basophils (Bld) [#/Vol] 0.0 10*3/uL Normal 0.0-0.2 [facility] Comment on above: Result Comment: PERF ORMED BY: [place] [address] PATHOLOGIST CORRECTIONAL LIEUTENANT CHITO HENDRICKS M.D. Performed By: #### C MP, TSH3, RAÚL, T4F #### [facility] [address] [place] [address] Basophils/100 WBC (Bld) 0.3 % Normal . [facility] Comment on above: Performed By: #### C MP, TSH3, RAÚL, T4F #### [facility] [address] Eosinophils (Bld) [#/Vol] 0.0 10*3/uL Normal 0.0-0.45 [facility] Comment on above: Performed By: #### C MP, TSH3, RAÚL, T4F #### [facility] [address] [place] [address] Eosinophils/100 WBC (Bld) 0.1 % Normal . [facility] Comment on above: Performed By: #### C MP, TSH3, RAÚL, T4F #### [facility] [address] [place] [address] Erythrocyte distribution width (RBC) [Ratio] 15.1 % Normal 11.9-15.3 [facility] Comment on above: Performed By: #### C MP, TSH3, RAÚL, T4F #### [facility] [address] [place] [address] Hematocrit (Bld) [Volume fraction] 38.3 % Normal 34.0-46.4 [facility] Comment on above: Performed By: #### C MP, TSH3, RAÚL, T4F #### [address] Hemoglobin (Bld) [Mass/Vol] 12.5 g/dL Normal 11.8-15.4 [facility] Comment on above: Performed By: #### C MP, TSH3, RAÚL, T4F #### [address] Lymphocytes (Bld) [#/Vol] 0.7 10*3/uL Low 1.00-4.8 [facility] Comment on above: Performed By: #### C MP, TSH3, RAÚL, T4F #### [address] Lymphocytes/100 WBC (Bld) 6.2 % Normal . [facility] Comment on above: Performed By: #### C MP, TSH3, RAÚL, T4F #### [address] MCH (RBC) [Entitic mass] 30.2 pg Normal 24.7-34.3 [facility] Comment on above: Performed By: #### C MP, TSH3, RAÚL, T4F #### [address] MCV (RBC) [Entitic vol] 92.4 fL Normal 80-100 F [facility] Comment on above: Performed By: #### C MP, TSH3, RAÚL, T4F #### [address] Mean Corpuscular HGB Conc 32.7 g/dL Normal 32.0-35.0 [facility] Comment on above: Performed By: #### C MP, TSH3, RAÚL, T4F #### [address] Monocytes (Bld) [#/Vol] 0.3 10*3/uL Normal 0.0-0.8 [facility] Comment on above: Performed By: #### C MP, TSH3, RAÚL, T4F #### [place] [address] [place] [address] [place] Monocytes/100 WBC (Bld) 2.3 % Normal . [facility] Comment on above: Performed By: #### C MP, TSH3, RAÚL, T4F #### [facility] [address] Neutrophils (Bld) [#/Vol] 10.4 10*3/uL High 1.8-7.7 [facility] Comment on above: Performed By: #### C MP, TSH3, RAÚL, T4F #### [facility] [address] [place] [address] Neutrophils/100 WBC (Bld) 91.1 % Normal . [facility] Comment on above: Performed By: #### C MP, TSH3, RAÚL, T4F #### [facility] [address] [place] [address] NRBC% 0.1 /100{WBC} Normal 0-0.5 [facility] Comment on above: Performed By: #### C MP, TSH3, RAÚL, T4F #### [facility] [address] [place] [address] Platelet mean volume (Bld) [Entitic vol] 6.9 fL Normal 6.3-10.7 [facility] Comment on above: Performed By: #### C MP, TSH3, RAÚL, T4F #### [place] [address] [place] Platelets (Bld) [#/Vol] 287 10*3/uL Normal 150-450 [facility] Comment on above: Performed By: #### C MP, TSH3, RAÚL, T4F #### [facility] [address] [place] [address] [place] RBC (Bld) [#/Vol] 4.14 10*6/uL Normal 3.60-5.00 [facility] Comment on above: Performed By: #### C MP, TSH3, RAÚL, T4F #### [place] [address] [place] WBC (Bld) [#/Vol] 11.5 10*3/uL Normal 3.8-11.6 [facility] Comment on above: Performed By: #### C MP, TSH3, RAÚL, T4F #### [facility] [address] [place] [address] Comprehensive Metabolic Pane arthur 09-16-2022 Albumin [Mass/Vol] 3.7 g/dL Normal 3.2-5.5 [facility] Comment on above: Performed By: #### C MP, TSH3, RAÚL, T4F #### [facility] [address] [place] [address] Albumin/Globulin [Mass ratio] 1.3 {ratio} Normal [facility] Comment on above: Performed By: #### C MP, TSH3, RAÚL, T4F #### [facility] [address] [place] [address] ALP [Catalytic activity/Vol] 85 U/L Normal 32-92 [facility] Comment on above: Performed By: #### C MP, TSH3, RAÚL, T4F #### [facility] [address] [place] [address] ALT [Catalytic activity/Vol] 16 U/L Normal 10-60 [facility] Comment on above: Performed By: #### C MP, TSH3, RAÚL, T4F #### [address] Anion gap [Moles/Vol] 13.2 mmol/L Normal 6.0-15.0 [facility] Comment on above: Performed By: #### C MP, TSH3, RAÚL, T4F #### [facility] [address] [place] [address] AST [Catalytic activity/Vol] 20 U/L Normal 10-42 [facility] Comment on above: Performed By: #### C MP, TSH3, RAÚL, T4F #### [facility] [address] [place] [address] Bilirubin [Mass/Vol] 0.6 mg/dL Normal 0.3-1.2 [facility] Comment on above: Performed By: #### C MP, TSH3, RAÚL, T4F #### [facility] [address] Calcium [Mass/Vol] 9.2 mg/dL Normal 8.2-10.2 [facility] Comment on above: Performed By: #### C MP, TSH3, RAÚL, T4F #### [facility] [address] Chloride [Moles/Vol] 102 mmol/L Normal 95-114 [facility] Comment on above: Performed By: #### C MP, TSH3, RAÚL, T4F #### [address] CO2 [Moles/Vol] 23.1 mmol/L Normal 22.0-30.0 [facility] Comment on above: Performed By: #### C MP, TSH3, RAÚL, T4F #### [address] Creatinine [Mass/Vol] 0.98 mg/dL Normal 0.44-1.03 [facility] Comment on above: Performed By: #### C MP, TSH3, RAÚL, T4F #### [address] Creatinine Clr Calc Pharmacy 72.74 [facility] Comment on above: Result Comment: PERF ORMED BY: [place] [address] PATHOLOGIST CORRECTIONAL LIEUTENANT CHITO HENDRICKS M.D. Performed By: #### C MP, TSH3, RAÚL, T4F #### [address] Estimated GFR ( Janis > 60 [facility] Comment on above: Result Comment: GFR estimated reference range: According to KDOQI guidelines, <60 ml/min/1.73m2 is sufficient to diagnose a patient with chronic kidney disease. Performed By: #### C MP, TSH3, RAÚL, T4F #### [address] Estimated GFR (Non- Am > 60 [facility] Comment on above: Performed By: #### C MP, TSH3, RAÚL, T4F #### [facility] [address] [place] [address] [place] Globulin (S) [Mass/Vol] 2.8 g/dL Normal F [facility] Comment on above: Performed By: #### C MP, TSH3, RAÚL, T4F #### [facility] [address] [place] [address] [place] Glucose [Mass/Vol] 176 mg/dL High 70-100 [facility] Comment on above: Result Comment: [facility] Glucose Reference Range is dependent on time and content of last meal. Glucose of more than 200 mg/dL in a nonstressed, ambulatory subject supports the diagnosis of Diabetes Mellitus. ADA recommended reference range Performed By: #### C MP, TSH3, RAÚL, T4F #### [facility] [address] Potassium [Moles/Vol] 4.3 mmol/L Normal 3.5-5.1 [facility] Comment on above: Performed By: #### C MP, TSH3, RAÚL, T4F #### [facility] [address] [place] [address] [place] Protein [Mass/Vol] 6.5 g/dL Normal 6.1-7.9 [facility] Comment on above: Performed By: #### C MP, TSH3, RAÚL, T4F #### [facility] [address] [place] [address] [place] Sodium [Moles/Vol] 134 mmol/L Low 136-146 [facility] Comment on above: Performed By: #### C MP, TSH3, RAÚL, T4F #### [facility] [address] [place] [address] [place] Urea nitrogen [Mass/Vol] 15 mg/dL Normal 9-23 [facility] Comment on above: Performed By: #### C MP, TSH3, RAÚL, T4F #### [facility] [address] [place] [address] [place] Cortisolon 09-16-2022 Cortisol 3.7 ug/dL Normal [facility] Comment on above: Result Comment: Refe rence range: AM 6 - 24 ug/dl PM <10 ug/dl PERFORMED BY: [place] [address] PATHOLOGIST CORRECTIONAL LIEUTENANT CHITO HENDRICKS M.D. Performed By: #### C BC, CMP #### [facility] [address] Creatinine and Glomerular fi ltration rate.predicted panel (S/P/Bld)Ordered By: Kallie Chang on 09-16-2022 Creatinine [Mass/Vol] 0.98 mg/dL 0.44-1.03 [facility] Eosinophils Auto (Bld) [#/Vo l]Ordered By: Kallie Chang on 09-16-2022 Eosinophils (Bld) [#/Vol] 0.0 10*3/uL 0.0-0.45 [facility] Eosinophils/100 WBC Auto (Bl d)Ordered By: Kallie Chang on 09-16-2022 Eosinophils/100 WBC (Bld) 0.1 % . [facility] Erythrocyte distribution wid th Auto (RBC) [Ratio]Ordered By: Kallie Chang on 09-16-2022 Erythrocyte distribution width (RBC) [Ratio] 15.1 % 11.9-15.3 [facility] Estimated glomerular filtrat ion rate (GFR) non- AmericanOrdered By: Kallie Chang on 09-16-2022 GFR/1.73 sq M.predicted among non-blacks MDRD (S/P/Bld) [Vol rate/Area] > 60 mL/Min [facility] Free T4 (Free Thyroxine)on 0 09-16-2022 Free T4 [Mass/Vol] 0.84 ng/dL Normal 0.61-1.12 [facility] Comment on above: Performed By: #### C BC, CMP #### [facility] [address] Globulin Calc (S) [Mass/Vol] Ordered By: Kallie Chang on 09-16-2022 Globulin (S) [Mass/Vol] 2.8 g/dL [facility] Glucose [Mass/volume] in Ser um or PlasmaOrdered By: Kallie Chang on 09-16-2022 Glucose [Mass/Vol] 176 mg/dL 70-100 [facility] Comment on above: ADA recommended refe rence rangeRandom Glucose Reference Range is dependent on time and content of last meal. Glucose of more than 200 mg/dL in a nonstressed, ambulatory subject supports the diagnosis of Diabetes Mellitus. Hematocrit Auto (Bld) [Volum e fraction]Ordered By: Kallie Chang on 09-16-2022 Hematocrit (Bld) [Volume fraction] 38.3 % 34.0-46.4 [facility] Hemoglobin [Mass/volume] in BloodOrdered By: Kallie Chang on 09-16-2022 Hemoglobin (Bld) [Mass/Vol] 12.5 g/dL 11.8-15.4 [facility] Leukocytes [#/volume] correc annie for nucleated erythrocytes in Blood by Automated counOrdered By: Kallie Chang on 09-16-2022 WBC corrected for nucl RBC Auto (Bld) [#/Vol] 11.5 10*3/uL 3.8-11.6 [facility] Lymphocytes Auto (Bld) [#/Vo l]Ordered By: Kallie Chang on 09-16-2022 Lymphocytes (Bld) [#/Vol] 0.7 10*3/uL 1.00-4.8 [facility] Lymphocytes/100 WBC Auto (Bl d)Ordered By: Kallie Chang on 09-16-2022 Lymphocytes/100 WBC (Bld) 6.2 % . [facility] MCH Auto (RBC) [Entitic mass ]Ordered By: Kallie Chang on 09-16-2022 MCH (RBC) [Entitic mass] 30.2 pg 24.7-34.3 [facility] MCHC Auto (RBC) [Mass/Vol]Or dered By: Kallie Chang on 09-16-2022 MCHC (RBC) [Mass/Vol] 32.7 g/dL 32.0-35.0 [facility] MCV Auto (RBC) [Entitic vol] Ordered By: Kallie Chang on 09-16-2022 MCV (RBC) [Entitic vol] 92.4 fL 80-100 [facility] Monocytes Auto (Bld) [#/Vol] Ordered By: Kallie Chang on 09-16-2022 Monocytes (Bld) [#/Vol] 0.3 10*3/uL 0.0-0.8 [facility] Monocytes/100 WBC Auto (Bld) Ordered By: Kallie Chang on 09-16-2022 Monocytes/100 WBC (Bld) 2.3 % . F [facility] Neutrophils Auto (Bld) [#/Vo l]Ordered By: Kallie Chang on 09-16-2022 Neutrophils (Bld) [#/Vol] 10.4 10*3/uL 1.8-7.7 [facility] Neutrophils/100 WBC Auto (Bl d)Ordered By: Kallie Chang on 09-16-2022 Neutrophils/100 WBC (Bld) 91.1 % . [facility] No Panel InformationOrdered By: Kallie Chang on 09-16-2022 Adrenocorticotropic Hormone <1.5 pg/mL 7.2-63.3 [facility] Comment on above: ACTH reference inter ervin for samples collected between 7 and10 AM.Performed at: [facility] [address] [id number] Director: Red Sena PhD, Phone: [phone] Estimated GFR () > 60 mL/Min [facility] Comment on above: GFR estimated refere nce range: According to KDOQI guidelines, <60 ml/min/1.73m2 is sufficient to diagnose a patient with chronic kidney disease. Pharmacy Creatinine Clearance (Chem 72.74 [facility] Nucleated erythrocytes [Pres ence] in Blood by Automated countOrdered By: Kallie Chang on 09-16-2022 Nucleated RBC Auto Ql (Bld) 0.1 /100{WBC} 0-0.5 [facility] Platelet mean volume Auto (B ld) [Entitic vol]Ordered By: Kallie Chang on 09-16-2022 Platelet mean volume (Bld) [Entitic vol] 6.9 fL 6.3-10.7 [facility] Platelets Auto (Bld) [#/Vol] Ordered By: Kallie Chang on 09-16-2022 Platelets (Bld) [#/Vol] 287 10*3/uL 150-450 [facility] Potassium [Moles/volume] in Serum or PlasmaOrdered By: Kallie Chang on 09-16-2022 Potassium [Moles/Vol] 4.3 mmol/L 3.5-5.1 [facility] Protein [Mass/volume] in Ser um or PlasmaOrdered By: Kallie Chang on 09-16-2022 Protein [Mass/Vol] 6.5 g/dL 6.1-7.9 [facility] RBC Auto (Bld) [#/Vol]Ordere d By: Kallie Chang on 09-16-2022 RBC (Bld) [#/Vol] 4.14 10*6/uL 3.60-5.00 [facility] Random cortisol measurementO rdered By: Kallie Chang on 09-16-2022 Cortisol [Mass/Vol] 3.7 ug/dL [facility] Comment on above: Reference range: AM 6 - 24 ug/dl PM <10 ug/dl Serum or plasma alanine napoles otransferase measurement without P-5'-P (enzymatic activiOrdered By: Kallie Chang on 09-16-2022 ALT No additional P-5'-P [Catalytic activity/Vol] 16 U/L 10-60 [facility] Serum or plasma albumin/glob ulin mass ratioOrdered By: Kallie Chang on 09-16-2022 Albumin/Globulin [Mass ratio] 1.3 {ratio} [facility] Serum or plasma anion gap de terminationOrdered By: Kallie Chang on 09-16-2022 Anion gap [Moles/Vol] 13.2 mmol/L 6.0-15.0 [facility] Sodium [Moles/volume] in Ser um or PlasmaOrdered By: Kallie Chang on 09-16-2022 Sodium [Moles/Vol] 134 mmol/L 136-146 [facility] TSH DL <= 0.005 mIU/L QnOrde red By: Kallie Chang on 09-16-2022 TSH Qn 0.51 m[IU]/L 0.45-5.33 [facility] Thyroid Stimulating Hormoneo n 09-16-2022 TSH Qn 0.51 m[IU]/L Normal 0.45-5.33 [facility] Comment on above: Performed By: #### C BC, CMP #### [address] Thyroxine (T4) free [Mass/vo lume] in Serum or PlasmaOrdered By: Kallie Chang on 09-16-2022 Free T4 [Mass/Vol] 0.84 ng/dL 0.61-1.12 [facility] Urea nitrogen [Mass/volume] in Serum or PlasmaOrdered By: Kallie Chang on 09-16-2022 Urea nitrogen [Mass/Vol] 15 mg/dL 04-10 [facility] WBC Auto (Bld) [#/Vol]Ordere d By: Kallie Chang on 09-16-2022 WBC (Bld) [#/Vol] 11.5 10*3/uL 3.8-11.6 [facility] Adrenocorticotropic Hormone PLon 08-27-[address] 2.7 pg/mL Low 7.2-63.3 [facility] Comment on above: Result Comment: ACTH reference interval for samples collected between 7 and 10 AM. Performed at: - [facility] [id number] Grant Officer: Red Sena PhD, Phone: [phone] PERFORMED BY: [place] [address] PATHOLOGIST CORRECTIONAL LIEUTENANT CHITO HENDRICKS M.D. Performed By: #### C MP, CBC #### [address] Complete Blood Count Auto Di ffon 08-27-2022 Basophils (Bld) [#/Vol] 0.1 10*3/uL Normal 0.0-0.2 [facility] Comment on above: Result Comment: PERF ORMED BY: [place] [address] PATHOLOGIST [employer]CTION[employer]IEUTENANT CHITO HENDRICKS M.D. Performed By: #### C BC, CMP #### [address] Basophils/100 WBC (Bld) 0.8 % Normal . [facility] Comment on above: Performed By: #### C BC, CMP #### [facility] [address] [place] [address] [place] Eosinophils (Bld) [#/Vol] 0.1 10*3/uL Normal 0.0-0.45 [facility] Comment on above: Performed By: #### C BC, CMP #### [facility] [address] [place] [address] [place] Eosinophils/100 WBC (Bld) 2.3 % Normal . [facility] Comment on above: Performed By: #### C BC, CMP #### [address] Erythrocyte distribution width (RBC) [Ratio] 15.1 % Normal 11.9-15.3 [facility] Comment on above: Performed By: #### C BC, CMP #### [address] Hematocrit (Bld) [Volume fraction] 36.6 % Normal 34.0-46.4 [facility] Comment on above: Performed By: #### C BC, CMP #### [address] Hemoglobin (Bld) [Mass/Vol] 12.3 g/dL Normal 11.8-15.4 [facility] Comment on above: Performed By: #### C BC, CMP #### [place] [address] [place] Lymphocytes (Bld) [#/Vol] 1.5 10*3/uL Normal 1.00-4.8 [facility] Comment on above: Performed By: #### C BC, CMP #### [place] [address] [place] Lymphocytes/100 WBC (Bld) 25.4 % Normal . [facility] Comment on above: Performed By: #### C BC, CMP #### [address] MCH (RBC) [Entitic mass] 30.7 pg Normal 24.7-34.3 [facility] Comment on above: Performed By: #### C BC, CMP #### [facility] [address] MCV (RBC) [Entitic vol] 91.1 fL Normal 80-100 [facility] Comment on above: Performed By: #### C BC, CMP #### [facility] [address] Mean Corpuscular HGB Conc 33.7 g/dL Normal 32.0-35.0 [facility] Comment on above: Performed By: #### C BC, CMP #### [facility] [address] Monocytes (Bld) [#/Vol] 0.4 10*3/uL Normal 0.0-0.8 [facility] Comment on above: Performed By: #### C BC, CMP #### [facility] [address] [place] [address] [place] Monocytes/100 WBC (Bld) 6.2 % Normal . [facility] Comment on above: Performed By: #### C BC, CMP #### [facility] [address] [place] [address] [place] Neutrophils (Bld) [#/Vol] 4.0 10*3/uL Normal 1.8-7.7 [facility] Comment on above: Performed By: #### C BC, CMP #### [facility] [address] [place] [address] [place] Neutrophils/100 WBC (Bld) 65.3 % Normal . [facility] Comment on above: Performed By: #### C BC, CMP #### [facility] [address] [place] [address] [place] NRBC% 0.2 /100{WBC} Normal 0-0.5 [facility] Comment on above: Performed By: #### C BC, CMP #### [facility] [address] Platelet mean volume (Bld) [Entitic vol] 6.8 fL Normal 6.3-10.7 [facility] Comment on above: Performed By: #### C BC, CMP #### [facility] [address] Platelets (Bld) [#/Vol] 272 10*3/uL Normal 150-450 [facility] Comment on above: Performed By: #### C BC, CMP #### [address] RBC (Bld) [#/Vol] 4.01 10*6/uL Normal 3.60-5.00 [facility] Comment on above: Performed By: #### C BC, CMP #### [address] WBC (Bld) [#/Vol] 6.1 10*3/uL Normal 3.8-11.6 [facility] Comment on above: Performed By: #### C BC, CMP #### [address] Comprehensive Metabolic Pane arthur 08-27-2022 Albumin [Mass/Vol] 3.6 g/dL Normal 3.2-5.5 [facility] Comment on above: Performed By: #### C BC, CMP #### [address] Albumin/Globulin [Mass ratio] 1.4 {ratio} Normal [facility] Comment on above: Performed By: #### C BC, CMP #### [address] ALP [Catalytic activity/Vol] 89 U/L Normal 32-92 [facility] Comment on above: Performed By: #### C BC, CMP #### [address] ALT [Catalytic activity/Vol] 18 U/L Normal 10-60 [facility] Comment on above: Performed By: #### C BC, CMP #### [address] Anion gap [Moles/Vol] 11.5 mmol/L Normal 6.0-15.0 [facility] Comment on above: Performed By: #### C BC, CMP #### [facility] [address] [place] [address] [place] AST [Catalytic activity/Vol] 20 U/L Normal 10-42 [facility] Comment on above: Performed By: #### C BC, CMP #### [facility] [address] [place] [id number] [facility] Bilirubin [Mass/Vol] 0.4 mg/dL Normal 0.3-1.2 [facility] Comment on above: Performed By: #### C BC, CMP #### [facility] [address] Calcium [Mass/Vol] 9.1 mg/dL Normal 8.2-10.2 [facility] Comment on above: Performed By: #### C BC, CMP #### [facility] [address] [place] [address] [place] Chloride [Moles/Vol] 103 mmol/L Normal 95-114 [facility] Comment on above: Performed By: #### C BC, CMP #### [facility] [address] [place] [address] [place] CO2 [Moles/Vol] 24.3 mmol/L Normal 22.0-30.0 [facility] Comment on above: Performed By: #### C BC, CMP #### [facility] [address] [place] [address] [place] Creatinine [Mass/Vol] 0.79 mg/dL Normal 0.44-1.03 [facility] Comment on above: Performed By: #### C BC, CMP #### [facility] [address] [place] [address] [place] Creatinine Clr Calc Pharmacy 89.84 Normal [facility] Comment on above: Result Comment: PERF ORMED BY: [place] [address] PATHOLOGIST [employer]CTION[employer]ENANT CHITO HENDRICKS M.D. Performed By: #### C BC, CMP #### [facility] [address] [place] [address] [place] Estimated GFR ( Janis > 60 Normal [facility] Comment on above: Result Comment: GFR estimated reference range: According to KDOQI guidelines, <60 ml/min/1.73m2 is sufficient to diagnose a patient with chronic kidney disease. Performed By: #### C BC, CMP #### [address] Estimated GFR (Non- Am > 60 Normal [facility] Comment on above: Performed By: #### C BC, CMP #### [address] Globulin (S) [Mass/Vol] 2.6 g/dL Normal [facility] Comment on above: Performed By: #### C BC, CMP #### [address] Glucose [Mass/Vol] 130 mg/dL High 70-100 [facility] Comment on above: Result Comment: [place] Glucose Reference Range is dependent on time and content of last meal. Glucose of more than 200 mg/dL in a nonstressed, ambulatory subject supports the diagnosis of Diabetes Mellitus. ADA recommended reference range Performed By: #### C BC, CMP #### [address] Potassium [Moles/Vol] 3.8 mmol/L Normal 3.5-5.1 [facility] Comment on above: Performed By: #### C BC, CMP #### [place] [address] [place] Protein [Mass/Vol] 6.2 g/dL Normal 6.1-7.9 [facility] Comment on above: Performed By: #### C BC, CMP #### [place] [address] [place] Sodium [Moles/Vol] 135 mmol/L Low 136-146 [facility] Comment on above: Performed By: #### C BC, CMP #### [place] [address] [place] Urea nitrogen [Mass/Vol] 15 mg/dL Normal 9-23 [facility] Comment on above: Performed By: #### C BC, CMP #### [address] Cortisolon 08-27-2022 Cortisol < 0.4 Normal [facility] Comment on above: Result Comment: Refe rence range: AM 6 - 24 ug/dl PM <10 ug/dl PERFORMED BY: [place] [address] PATHOLOGIST [employer]NT CHITO HENDRICKS M.D. Performed By: #### C MP, CBC #### [address] Free T4 (Free Thyroxine)on 0 08-27-2022 Free T4 [Mass/Vol] 0.66 ng/dL Normal 0.61-1.12 [facility] Comment on above: Performed By: #### C BC, CMP #### [address] Thyroid Stimulating Hormoneo n 08-27-2022 TSH Qn 6.13 m[IU]/L High 0.45-5.33 [facility] Comment on above: Performed By: #### C MP, CBC #### [address] Adrenocorticotropic Hormone PLon 08-05-[address] <1.5 Low 7.2-63.3 [facility] Comment on above: Result Comment: ACTH reference interval for samples collected between 7 and 10 AM. Performed at: [facility] [address] [id number] [place] Officer: Red Sena PhD, Phone: [phone] PERFORMED BY: [place] [address] PATHOLOGIST [employer] CHITO HENDRICKS M.D. Performed By: #### C MP, CBC #### [address] Albumin [Mass/volume] in Ser um or PlasmaOrdered By: Kallie Chang on 08-05-2022 Albumin [Mass/Vol] 3.8 g/dL 3.2-5.5 [facility] Basophils Auto (Bld) [#/Vol] Ordered By: Kallie Chang on 08-05-2022 Basophils (Bld) [#/Vol] 0.0 10*3/uL 0.0-0.2 [facility] Basophils/100 WBC Auto (Bld) Ordered By: Kallie Chang on 08-05-2022 Basophils/100 WBC (Bld) 0.2 % . F [facility] Complete Blood Count Auto Di ffon 08-05-2022 Basophils (Bld) [#/Vol] 0.0 10*3/uL Normal 0.0-0.2 [facility] Comment on above: Result Comment: PERF ORMED BY: [place] [address] PATHOLOGIST COR[employer]CTIONAL [employer]IE[employer]ENANT CHITO HENDRICKS M.D. Performed By: #### C MP, CBC #### [address] Basophils/100 WBC (Bld) 0.2 % Normal . [facility] Comment on above: Performed By: #### C MP, CBC #### [address] Eosinophils (Bld) [#/Vol] 0.0 10*3/uL Normal 0.0-0.45 [facility] Comment on above: Performed By: #### C MP, CBC #### [address] Eosinophils/100 WBC (Bld) 0.0 % Normal . [facility] Comment on above: Performed By: #### C MP, CBC #### [address] Erythrocyte distribution width (RBC) [Ratio] 14.9 % Normal 11.9-15.3 [facility] Comment on above: Performed By: #### C MP, CBC #### [address] Hematocrit (Bld) [Volume fraction] 37.2 % Normal 34.0-46.4 [facility] Comment on above: Performed By: #### C MP, CBC #### [facility] [address] Hemoglobin (Bld) [Mass/Vol] 12.2 g/dL Normal 11.8-15.4 [facility] Comment on above: Performed By: #### C MP, CBC #### [facility] [address] Lymphocytes (Bld) [#/Vol] 0.5 10*3/uL Low 1.00-4.8 [facility] Comment on above: Performed By: #### C MP, CBC #### [facility] [address] Lymphocytes/100 WBC (Bld) 5.5 % Normal . [facility] Comment on above: Performed By: #### C MP, CBC #### [facility] [address] MCH (RBC) [Entitic mass] 29.8 pg Normal 24.7-34.3 [facility] Comment on above: Performed By: #### C MP, CBC #### [facility] [address] MCV (RBC) [Entitic vol] 90.9 fL Normal 80-100 [facility] Comment on above: Performed By: #### C MP, CBC #### [facility] [address] Mean Corpuscular HGB Conc 32.8 g/dL Normal 32.0-35.0 [facility] Comment on above: Performed By: #### C MP, CBC #### [facility] [address] [place] [address] [place] Monocytes (Bld) [#/Vol] 0.1 10*3/uL Normal 0.0-0.8 [facility] Comment on above: Performed By: #### C MP, CBC #### [facility] [address] Monocytes/100 WBC (Bld) 1.4 % Normal . [facility] Comment on above: Performed By: #### C MP, CBC #### [facility] [address] [place] [address] [place] Neutrophils (Bld) [#/Vol] 8.7 10*3/uL High 1.8-7.7 [facility] Comment on above: Performed By: #### C MP, CBC #### [facility] [address] [place] [id number] [place] Neutrophils/100 WBC (Bld) 92.9 % Normal . [facility] Comment on above: Performed By: #### C MP, CBC #### [facility] [address] NRBC% 0.0 /100{WBC} Normal 0-0.5 [facility] Comment on above: Performed By: #### C MP, CBC #### [facility] [address] Platelet mean volume (Bld) [Entitic vol] 7.1 fL Normal 6.3-10.7 [facility] Comment on above: Performed By: #### C MP, CBC #### [facility] [address] [place] [address] [place] Platelets (Bld) [#/Vol] 263 10*3/uL Normal 150-450 [facility] Comment on above: Performed By: #### C MP, CBC #### [facility] [address] [place] [address] [place] RBC (Bld) [#/Vol] 4.09 10*6/uL Normal 3.60-5.00 [facility] Comment on above: Performed By: #### C MP, CBC #### [facility] [address] [place] [address] [place] WBC (Bld) [#/Vol] 9.3 10*3/uL Normal 3.8-11.6 [facility] Comment on above: Performed By: #### C MP, CBC #### [facility] [address] Comprehensive Metabolic Pane arthur 08-05-2022 Albumin [Mass/Vol] 3.8 g/dL Normal 3.2-5.5 [facility] Comment on above: Performed By: #### C MP, CBC #### [facility] [address] [place] [address] [place] Albumin/Globulin [Mass ratio] 1.4 {ratio} [facility] Comment on above: Performed By: #### C MP, CBC #### [facility] [address] Albumin/Globulin [Mass ratio] 1.3 {ratio} [facility] Comment on above: Performed By: #### C MP, CBC #### [facility] [address] [place] [address] ALP [Catalytic activity/Vol] 88 U/L Normal [facility] Comment on above: Performed By: #### C MP, CBC #### [facility] [address] [place] [address] ALP [Catalytic activity/Vol] 89 U/L Normal [facility] Comment on above: Performed By: #### C MP, CBC #### [facility] [address] [place] [address] [place] ALT [Catalytic activity/Vol] 17 U/L Normal [facility] Comment on above: Performed By: #### C MP, CBC #### [facility] [address] [place] [address] [place] ALT [Catalytic activity/Vol] 16 U/L Normal [facility] Comment on above: Performed By: #### C MP, CBC #### [facility] [address] [place] [address] [place] Anion gap [Moles/Vol] 14.5 mmol/L Normal 6.0-15.0 [facility] Comment on above: Performed By: #### C MP, CBC #### [facility] [address] [place] [address] Anion gap [Moles/Vol] 16.6 mmol/L High 6.0-15.0 [facility] Comment on above: Performed By: #### C MP, CBC #### [facility] [address] AST [Catalytic activity/Vol] 15 U/L Normal 10-42 [facility] Comment on above: Performed By: #### C MP, CBC #### [address] AST [Catalytic activity/Vol] 18 U/L Normal 10-42 [facility] Comment on above: Performed By: #### C MP, CBC #### [address] Bilirubin [Mass/Vol] 0.5 mg/dL Normal 0.3-1.2 [facility] Comment on above: Performed By: #### C MP, CBC #### [address] Bilirubin [Mass/Vol] 0.7 mg/dL Normal 0.3-1.2 [facility] Comment on above: Performed By: #### C MP, CBC #### [address] Calcium [Mass/Vol] 9.0 mg/dL Normal 8.2-10.2 [facility] Comment on above: Performed By: #### C MP, CBC #### [address] Calcium [Mass/Vol] 9.1 mg/dL Normal 8.2-10.2 [facility] Comment on above: Performed By: #### C MP, CBC #### [facility] [address] [place] [address] [place] Chloride [Moles/Vol] 101 mmol/L Normal 95-114 [facility] Comment on above: Performed By: #### C MP, CBC #### [facility] [address] [place] [address] [place] Chloride [Moles/Vol] 99 mmol/L Normal 95-114 [facility] Comment on above: Performed By: #### C MP, CBC #### [place] [address] [place] CO2 [Moles/Vol] 25.1 mmol/L Normal 22.0-30.0 [facility] Comment on above: Performed By: #### C MP, CBC #### [facility] [address] [place] [address] CO2 [Moles/Vol] 24.0 mmol/L Normal 22.0-30.0 [facility] Comment on above: Performed By: #### C MP, CBC #### [place] [address] [place] Creatinine [Mass/Vol] 1.01 mg/dL Normal 0.44-1.03 [facility] Comment on above: Performed By: #### C MP, CBC #### [address] Creatinine [Mass/Vol] 1.03 mg/dL Normal 0.44-1.03 [facility] Comment on above: Performed By: #### C MP, CBC #### [place] [address] [place] Creatinine Clr Calc Pharmacy 69.07 [facility] Comment on above: Result Comment: PERF ORMED BY: [place] [address] PATHOLOGIST CORRECTION[employer] LIEUTENANT CHITO HENDRICKS M.D. Performed By: #### C MP, CBC #### [place] [address] [place] Creatinine Clr Calc Pharmacy 67.73 [facility] Comment on above: Performed By: #### C MP, CBC #### [facility] [address] [place] [address] Estimated GFR ( Janis > 60 [facility] Comment on above: Result Comment: GFR estimated reference range: According to KDOQI guidelines, <60 ml/min/1.73m2 is sufficient to diagnose a patient with chronic kidney disease. Performed By: #### C MP, CBC #### [place] [address] [place] Estimated GFR (Non- Am 59 [facility] Comment on above: Performed By: #### C MP, CBC #### [address] [place] [address] [place] Estimated GFR (Non- Am 58 Normal [facility] Comment on above: Performed By: #### C MP, CBC #### [facility] [address] [place] [id number] [facility] Globulin (S) [Mass/Vol] 2.8 g/dL Normal F [facility] Comment on above: Performed By: #### C MP, CBC #### [facility] [address] Globulin (S) [Mass/Vol] 2.9 g/dL Normal F [facility] Comment on above: Performed By: #### C MP, CBC #### [facility] [address] Glucose [Mass/Vol] 164 mg/dL High 70-100 [facility] Comment on above: Result Comment: [place] Glucose Reference Range is dependent on time and content of last meal. Glucose of more than 200 mg/dL in a nonstressed, ambulatory subject supports the diagnosis of Diabetes Mellitus. ADA recommended reference range Performed By: #### C MP, CBC #### [address] Potassium [Moles/Vol] 4.6 mmol/L Normal 3.5-5.1 [facility] Comment on above: Performed By: #### C MP, CBC #### [place] [address] [place] Protein [Mass/Vol] 6.6 g/dL Normal 6.1-7.9 [facility] Comment on above: Performed By: #### C MP, CBC #### [facility] [address] [place] [id number] [place] Protein [Mass/Vol] 6.7 g/dL Normal 6.1-7.9 [facility] Comment on above: Performed By: #### C MP, CBC #### [facility] [address] [place] [address] [place] Sodium [Moles/Vol] 136 mmol/L Normal 136-146 [facility] Comment on above: Performed By: #### C MP, CBC #### [facility] [address] Sodium [Moles/Vol] 135 mmol/L Low 136-146 [facility] Comment on above: Performed By: #### C MP, CBC #### [facility] [address] Urea nitrogen [Mass/Vol] 15 mg/dL Normal 9-23 [facility] Comment on above: Performed By: #### C MP, CBC #### [facility] [address] Creatinine and Glomerular fi ltration rate.predicted panel (S/P/Bld)Ordered By: Kallie Chang on 08-05-2022 Creatinine [Mass/Vol] 1.03 mg/dL 0.44-1.03 [facility] Eosinophils Auto (Bld) [#/Vo l]Ordered By: Kallie Chang on 08-05-2022 Eosinophils (Bld) [#/Vol] 0.0 10*3/uL 0.0-0.45 [facility] Eosinophils/100 WBC Auto (Bl d)Ordered By: Kallie Chang on 08-05-2022 Eosinophils/100 WBC (Bld) 0.0 % . [facility] Erythrocyte distribution wid th Auto (RBC) [Ratio]Ordered By: Kallie Chang on 08-05-2022 Erythrocyte distribution width (RBC) [Ratio] 14.9 % 11.9-15.3 [facility] Estimated glomerular filtrat ion rate (GFR) non- AmericanOrdered By: Kallie Chang on 08-05-2022 GFR/1.73 sq M.predicted among non-blacks MDRD (S/P/Bld) [Vol rate/Area] 58 mL/Min [facility] Free T4 (Free Thyroxine)on 0 08-05-2022 Free T4 [Mass/Vol] 0.71 ng/dL Normal 0.61-1.12 [facility] Comment on above: Performed By: #### C MP, CBC #### [facility] [address] [place] [address] [place] Globulin Calc (S) [Mass/Vol] Ordered By: Kallie Chang on 08-05-2022 Globulin (S) [Mass/Vol] 2.9 g/dL F [facility] Hematocrit Auto (Bld) [Volum e fraction]Ordered By: Kallie Chang on 08-05-2022 Hematocrit (Bld) [Volume fraction] 37.2 % 34.0-46.4 [facility] Hemoglobin [Mass/volume] in BloodOrdered By: Kallie Chang on 08-05-2022 Hemoglobin (Bld) [Mass/Vol] 12.2 g/dL 11.8-15.4 [facility] LDH Lactate Dehydrogenaseon 08-05-2022 LDH Lactate Dehydrogenase 169 U/L Normal 45-190 [facility] Comment on above: Performed By: #### C MP, CBC #### [address] Lactate dehydrogenase measur ement (enzymatic activity/volume)Ordered By: Kallie Chang on 08-05-2022 LDH (Unsp spec) [Catalytic activity/Vol] 169 U/L 45-190 [facility] Leukocytes [#/volume] correc annie for nucleated erythrocytes in Blood by Automated counOrdered By: Kallie Chang on 08-05-2022 WBC corrected for nucl RBC Auto (Bld) [#/Vol] 9.3 10*3/uL 3.8-11.6 [facility] Lymphocytes Auto (Bld) [#/Vo l]Ordered By: Kallie Chang on 08-05-2022 Lymphocytes (Bld) [#/Vol] 0.5 10*3/uL 1.00-4.8 [facility] Lymphocytes/100 WBC Auto (Bl d)Ordered By: Kallie Chang on 08-05-2022 Lymphocytes/100 WBC (Bld) 5.5 % . [facility] MCH Auto (RBC) [Entitic mass ]Ordered By: Kallie Chang on 08-05-2022 MCH (RBC) [Entitic mass] 29.8 pg 24.7-34.3 [facility] MCHC Auto (RBC) [Mass/Vol]Or dered By: Kallie Chang on 08-05-2022 MCHC (RBC) [Mass/Vol] 32.8 g/dL 32.0-35.0 [facility] MCV Auto (RBC) [Entitic vol] Ordered By: Kallie Chang on 08-05-2022 MCV (RBC) [Entitic vol] 90.9 fL 80-100 [facility] Monocytes Auto (Bld) [#/Vol] Ordered By: Kallie Chang on 08-05-2022 Monocytes (Bld) [#/Vol] 0.1 10*3/uL 0.0-0.8 [facility] Monocytes/100 WBC Auto (Bld) Ordered By: Kallie Chang on 08-05-2022 Monocytes/100 WBC (Bld) 1.4 % . [facility] Neutrophils Auto (Bld) [#/Vo l]Ordered By: Kallie Chang on 08-05-2022 Neutrophils (Bld) [#/Vol] 8.7 10*3/uL 1.8-7.7 [facility] Neutrophils/100 WBC Auto (Bl d)Ordered By: Kallie Chang on 08-05-2022 Neutrophils/100 WBC (Bld) 92.9 % . [facility] No Panel InformationOrdered By: Kallie Chang on 08-05-2022 Adrenocorticotropic Hormone <1.5 pg/mL 7.2-63.3 [facility] Comment on above: ACTH reference inter ervin for samples collected between 7 and10 AM.Performed at: [facility] [address] [id number] Director: Red Sena PhD, Phone: [phone] Estimated GFR () > 60 mL/Min [facility] Comment on above: GFR estimated refere nce range: According to KDOQI guidelines, <60 ml/min/1.73m2 is sufficient to diagnose a patient with chronic kidney disease. Pharmacy Creatinine Clearance (Chem 67.73 [facility] Nucleated erythrocytes [Pres ence] in Blood by Automated countOrdered By: Kallie Chang on 08-05-2022 Nucleated RBC Auto Ql (Bld) 0.0 /100{WBC} 0-0.5 [facility] Platelet mean volume Auto (B ld) [Entitic vol]Ordered By: Kallie Chang on 08-05-2022 Platelet mean volume (Bld) [Entitic vol] 7.1 fL 6.3-10.7 [facility] Platelets Auto (Bld) [#/Vol] Ordered By: Kallie Chang on 08-05-2022 Platelets (Bld) [#/Vol] 263 10*3/uL 150-450 [facility] Protein [Mass/volume] in Ser um or PlasmaOrdered By: Kallie Chang on 08-05-2022 Protein [Mass/Vol] 6.7 g/dL 6.1-7.9 [facility] RBC Auto (Bld) [#/Vol]Ordere d By: Kallie Chang on 08-05-2022 RBC (Bld) [#/Vol] 4.09 10*6/uL 3.60-5.00 [facility] Serum or plasma alanine napoles otransferase measurement without P-5'-P (enzymatic activiOrdered By: Kallie Chang on 08-05-2022 ALT No additional P-5'-P [Catalytic activity/Vol] 16 U/L 10-60 [facility] Serum or plasma albumin/glob ulin mass ratioOrdered By: Kallie Chang on 08-05-2022 Albumin/Globulin [Mass ratio] 1.3 {ratio} [facility] Serum or plasma alkaline zo sphatase measurement (enzymatic activity/volume)Ordered By: Kallie hCang on 08-05-2022 ALP [Catalytic activity/Vol] 89 U/L 32-92 [facility] Serum or plasma anion gap de terminationOrdered By: Kallie Chang on 08-05-2022 Anion gap [Moles/Vol] 16.6 mmol/L 6.0-15.0 [facility] Serum or plasma aspartate am inotransferase measurement (enzymatic activity/volume)Ordered By: Kallie Chang on 08-05-2022 AST [Catalytic activity/Vol] 18 U/L 10-42 [facility] Serum or plasma calcium daiana urement (mass/volume)Ordered By: Kallie Chang on 08-05-2022 Calcium [Mass/Vol] 9.1 mg/dL 8.2-10.2 [facility] Serum or plasma chloride lizett surement (moles/volume)Ordered By: Kallie Chang on 01-18-2023 Chloride [Moles/Vol] 99 mmol/L 95-114 [facility] Serum or plasma glucose daiana urement (mass/volume)Ordered By: Kallie Chang on 08-05-2022 Glucose [Mass/Vol] 164 mg/dL 70-100 [facility] Comment on above: ADA recommended refe rence rangeRandom Glucose Reference Range is dependent on time and content of last meal. Glucose of more than 200 mg/dL in a nonstressed, ambulatory subject supports the diagnosis of Diabetes Mellitus. Serum or plasma potassium me asurement (moles/volume)Ordered By: Kallie Chang on 08-05-2022 Potassium [Moles/Vol] 4.6 mmol/L 3.5-5.1 [facility] Serum or plasma sodium measu rement (moles/volume)Ordered By: Kallie Chang on 08-05-2022 Sodium [Moles/Vol] 135 mmol/L 136-146 [facility] Serum or plasma total biliru bin measurement (mass/volume)Ordered By: Kallie Chang on 08-05-2022 Bilirubin [Mass/Vol] 0.7 mg/dL 0.3-1.2 [facility] Serum or plasma total carbon dioxide measurement (moles/volume)Ordered By: Kallie Chang on 08-05-2022 CO2 [Moles/Vol] 24.0 mmol/L 22.0-30.0 [facility] Serum or plasma urea nitroge n measurement (mass/volume)Ordered By: Kallie Chang on 08-05-2022 Urea nitrogen [Mass/Vol] 15 mg/dL 9-23 [facility] TSH DL <= 0.005 mIU/L QnOrde red By: Kallie Chang on 08-05-2022 TSH Qn 0.70 m[IU]/L 0.45-5.33 [facility] Thyroid Stimulating Hormoneo n 08-05-2022 TSH Qn 0.70 m[IU]/L Normal 0.45-5.33 [facility] Comment on above: Result Comment: PERF ORMED BY: [facility] [address] [place] [address] PATHOLOGIST CORRECTIONAL LIEUTENANT CHITO HENDRICKS M.D. Performed By: #### C MP, CBC #### [address] Thyroxine (T4) free [Mass/vo lume] in Serum or PlasmaOrdered By: Kallie Chang on 08-05-2022 Free T4 [Mass/Vol] 0.71 ng/dL 0.61-1.12 [facility] WBC Auto (Bld) [#/Vol]Ordere d By: Kallie Chang on 08-05-2022 WBC (Bld) [#/Vol] 9.3 10*3/uL 3.8-11.6 [facility] Adrenocorticotropic Hormone PLon 07-22-[address] <1.5 Low 7.2-63.3 [facility] Comment on above: Result Comment: ACTH reference interval for samples collected between 7 and 10 AM. Performed at: [facility] [address] [id number] [place] Officer: Red Sena PhD, Phone: [phone] PERFORMED BY: [place] [address] PATHOLOGIST CORRECTIONAL LIEUTENANT CHITO HENDRICKS M.D. Performed By: #### C MP, CBC #### [address] Complete Blood Count Auto Di ffon 07-22-2022 Basophils (Bld) [#/Vol] 0.0 10*3/uL Normal 0.0-0.2 [facility] Comment on above: Result Comment: PERF ORMED BY: [place] [address] PATHOLOGIST CORRECTIONAL LIEUTENANT CHITO HENDRICKS M.D. Performed By: #### C BC #### [place] [address] [place] Basophils/100 WBC (Bld) 0.7 % Normal . [facility] Comment on above: Performed By: #### C BC #### [place] [address] [place] Eosinophils (Bld) [#/Vol] 0.1 10*3/uL Normal 0.0-0.45 [facility] Comment on above: Performed By: #### C BC #### [facility] [address] [place] [address] [place] Eosinophils/100 WBC (Bld) 1.3 % Normal . [facility] Comment on above: Performed By: #### C BC #### [facility] [address] Erythrocyte distribution width (RBC) [Ratio] 13.7 % Normal 11.9-15.3 [facility] Comment on above: Performed By: #### C BC #### [facility] [address] Hematocrit (Bld) [Volume fraction] 32.7 % Low 34.0-46.4 [facility] Comment on above: Performed By: #### C BC #### [facility] [address] Hemoglobin (Bld) [Mass/Vol] 11.0 g/dL Low 11.8-15.4 [facility] Comment on above: Performed By: #### C BC #### [facility] [address] [place] [address] [place] Lymphocytes (Bld) [#/Vol] 1.3 10*3/uL Normal 1.00-4.8 [facility] Comment on above: Performed By: #### C BC #### [facility] [address] Lymphocytes/100 WBC (Bld) 19.9 % Normal . [facility] Comment on above: Performed By: #### C BC #### [facility] [address] MCH (RBC) [Entitic mass] 30.1 pg Normal 24.7-34.3 [facility] Comment on above: Performed By: #### C BC #### [facility] [address] MCV (RBC) [Entitic vol] 89.6 fL Normal 80-100 [facility] Comment on above: Performed By: #### C BC #### [facility] [address] Mean Corpuscular HGB Conc 33.6 g/dL Normal 32.0-35.0 [facility] Comment on above: Performed By: #### C BC #### [facility] [address] Monocytes (Bld) [#/Vol] 0.4 10*3/uL Normal 0.0-0.8 [facility] Comment on above: Performed By: #### C BC #### [facility] [address] [place] [address] [place] Monocytes/100 WBC (Bld) 6.3 % Normal . [facility] Comment on above: Performed By: #### C BC #### [address] Neutrophils (Bld) [#/Vol] 4.6 10*3/uL Normal 1.8-7.7 [facility] Comment on above: Performed By: #### C BC #### [address] Neutrophils/100 WBC (Bld) 71.8 % Normal . [facility] Comment on above: Performed By: #### C BC #### [address] NRBC% 0.2 /100{WBC} Normal 0-0.5 [facility] Comment on above: Performed By: #### C BC #### [address] Platelet mean volume (Bld) [Entitic vol] 6.9 fL Normal 6.3-10.7 [facility] Comment on above: Performed By: #### C BC #### [place] [address] [place] Platelets (Bld) [#/Vol] 361 10*3/uL Normal 150-450 [facility] Comment on above: Performed By: #### C BC #### [place] [address] [place] RBC (Bld) [#/Vol] 3.65 10*6/uL Normal 3.60-5.00 [facility] Comment on above: Performed By: #### C BC #### [address] WBC (Bld) [#/Vol] 6.5 10*3/uL Normal 3.8-11.6 [facility] Comment on above: Performed By: #### C BC #### [address] Comprehensive Metabolic Pane arthur 07-22-2022 Albumin [Mass/Vol] 3.5 g/dL Normal 3.2-5.5 [facility] Comment on above: Performed By: #### C MP, TSH3, RAÚL, T4F #### [address] Albumin/Globulin [Mass ratio] 1.2 {ratio} Normal [facility] Comment on above: Performed By: #### C MP, TSH3, RAÚL, T4F #### [address] ALP [Catalytic activity/Vol] 71 U/L Normal 32-92 [facility] Comment on above: Performed By: #### C MP, TSH3, RAÚL, T4F #### [address] ALT [Catalytic activity/Vol] 18 U/L Normal 10-60 [facility] Comment on above: Performed By: #### C MP, TSH3, RAÚL, T4F #### [address] Anion gap [Moles/Vol] 13.0 mmol/L Normal 6.0-15.0 [facility] Comment on above: Performed By: #### C MP, TSH3, RAÚL, T4F #### [address] AST [Catalytic activity/Vol] 19 U/L Normal 10-42 [facility] Comment on above: Performed By: #### C MP, TSH3, RAÚL, T4F #### [facility] [address] Bilirubin [Mass/Vol] 0.3 mg/dL Normal 0.3-1.2 [facility] Comment on above: Performed By: #### C MP, TSH3, RAÚL, T4F #### [facility] [address] Calcium [Mass/Vol] 9.2 mg/dL Normal 8.2-10.2 [facility] Comment on above: Performed By: #### C MP, TSH3, RAÚL, T4F #### [address] Chloride [Moles/Vol] 103 mmol/L Normal 95-114 [facility] Comment on above: Performed By: #### C MP, TSH3, RAÚL, T4F #### [address] CO2 [Moles/Vol] 23.1 mmol/L Normal 22.0-30.0 [facility] Comment on above: Performed By: #### C MP, TSH3, RAÚL, T4F #### [address] Creatinine [Mass/Vol] 0.67 mg/dL Normal 0.44-1.03 [facility] Comment on above: Performed By: #### C MP, TSH3, RAÚL, T4F #### [facility] [address] [place] [address] [place] Creatinine Clr Calc Pharmacy 103.05 [facility] Comment on above: Performed By: #### C MP, TSH3, RAÚL, T4F #### [address] Estimated GFR ( Janis > 60 [facility] Comment on above: Result Comment: GFR estimated reference range: According to KDOQI guidelines, <60 ml/min/1.73m2 is sufficient to diagnose a patient with chronic kidney disease. Performed By: #### C MP, TSH3, RAÚL, T4F #### [place] [id number] [place] Estimated GFR (Non- Am > 60 Normal [facility] Comment on above: Performed By: #### C MP, TSH3, RAÚL, T4F #### [address] Globulin (S) [Mass/Vol] 2.9 g/dL Normal F [facility] Comment on above: Performed By: #### C MP, TSH3, RAÚL, T4F #### [address] Glucose [Mass/Vol] 93 mg/dL Normal 70-100 [facility] Comment on above: Result Comment: [facility] Glucose Reference Range is dependent on time and content of last meal. Glucose of more than 200 mg/dL in a nonstressed, ambulatory subject supports the diagnosis of Diabetes Mellitus. ADA recommended reference range Performed By: #### C MP, TSH3, RAÚL, T4F #### [address] Potassium [Moles/Vol] 4.1 mmol/L Normal 3.5-5.1 [facility] Comment on above: Performed By: #### C MP, TSH3, RAÚL, T4F #### [address] Protein [Mass/Vol] 6.4 g/dL Normal 6.1-7.9 [facility] Comment on above: Performed By: #### C MP, TSH3, RAÚL, T4F #### [address] Sodium [Moles/Vol] 135 mmol/L Low 136-146 [facility] Comment on above: Performed By: #### C MP, TSH3, RAÚL, T4F #### [address] Urea nitrogen [Mass/Vol] 10 mg/dL Normal 9-23 [facility] Comment on above: Performed By: #### C MP, TSH3, RAÚL, T4F #### [address] Cortisolon 01-04-2023 Cortisol 2.6 ug/dL Normal [facility] Comment on above: Result Comment: Refe rence range: AM 6 - 24 ug/dl PM <10 ug/dl PERFORMED BY: [place] [address] PATHOLOGIST CORRECTIONAL LIEUTENANT CHITO HENDRICKS M.D. Performed By: #### C MP, TSH3, RAÚL, T4F #### [facility] [address] [place] [address] Free T4 (Free Thyroxine)on 0 07-22-2022 Free T4 [Mass/Vol] 0.78 ng/dL Normal 0.61-1.12 [facility] Comment on above: Performed By: #### C MP, TSH3, RAÚL, T4F #### [address] Random cortisol measurementO rdered By: Kallie Chang on 07-22-2022 Cortisol [Mass/Vol] 2.6 ug/dL [facility] Comment on above: Reference range: AM 6 - 24 ug/dl PM <10 ug/dl Thyroid Stimulating Hormoneo n 07-22-2022 TSH Qn 1.41 m[IU]/L Normal 0.45-5.33 [facility] Comment on above: Performed By: #### C MP, TSH3, RAÚL, T4F #### [address] MR cervical spine wo conon 1 08-20-2021 MR cervical spine wo con [facility] Main [place] [address] [place] [address] MRI Report Signed Patient: Tenisha Hancock MR#: [id number] : 1975 Acct:[id number] Age/Sex: 47 / F ADM Date: 06/19/22 Loc: MR Room: Type: [facility] Attending Dr: Adam Vickers DO Copies to: [...] Guzman Jr., D.O.06/19/2022 7:04 PM Dictation Location: [place] [address] Transcribed By: [facility] 06/19/221903 Dictated By: Jamari Guzman Jr, DO 06/19/221857 Signed By: 06/19/221903 Normal [facility] Adrenocorticotropic Hormone PLon 06-17-[address] 8.2 pg/mL Normal 7.2-63.3 [facility] Comment on above: Result Comment: ACTH reference interval for samples collected between 7 and 10 AM. Performed at: [facility] [address] [id number] [place] Officer: Red Sena PhD, Phone: [phone] PERFORMED BY: [place] [address] PATHOLOGIST CORRECTIONAL LIEUTENANT CHITO HENDRICKS M.D. Performed By: #### C MP, CBC #### [address] Albumin [Mass/volume] in Ser um or PlasmaOrdered By: Kallie Chang on 06-17-2022 Albumin [Mass/Vol] 3.6 g/dL 3.2-5.5 [facility] Basophils Auto (Bld) [#/Vol] Ordered By: Kallie Chang on 06-17-2022 Basophils (Bld) [#/Vol] 0.0 10*3/uL 0.0-0.2 [facility] Basophils/100 WBC Auto (Bld) Ordered By: Kallie Chang on 06-17-2022 Basophils/100 WBC (Bld) 0.7 % . F [facility] Complete Blood Count Auto Di ffon 06-17-2022 Basophils (Bld) [#/Vol] 0.0 10*3/uL Normal 0.0-0.2 [facility] Comment on above: Result Comment: PERF ORMED BY: [place] [address] PATHOLOGIST CORRECTIONAL LIEUTENANT CHITO HENDRICKS M.D. Performed By: #### C MP, CBC #### [address] Basophils/100 WBC (Bld) 0.7 % Normal . [facility] Comment on above: Performed By: #### C MP, CBC #### [address] Eosinophils (Bld) [#/Vol] 0.1 10*3/uL Normal 0.0-0.45 [facility] Comment on above: Performed By: #### C MP, CBC #### [address] Eosinophils/100 WBC (Bld) 2.7 % Normal . [facility] Comment on above: Performed By: #### C MP, CBC #### [address] Erythrocyte distribution width (RBC) [Ratio] 13.2 % Normal 11.9-15.3 [facility] Comment on above: Performed By: #### C MP, CBC #### [address] Hematocrit (Bld) [Volume fraction] 32.8 % Low 34.0-46.4 [facility] Comment on above: Performed By: #### C MP, CBC #### [address] Hemoglobin (Bld) [Mass/Vol] 10.7 g/dL Low 11.8-15.4 [facility] Comment on above: Performed By: #### C MP, CBC #### [address] Lymphocytes (Bld) [#/Vol] 0.9 10*3/uL Low 1.00-4.8 [facility] Comment on above: Performed By: #### C MP, CBC #### [address] Lymphocytes/100 WBC (Bld) 17.2 % Normal . [facility] Comment on above: Performed By: #### C MP, CBC #### [address] MCH (RBC) [Entitic mass] 29.5 pg Normal 24.7-34.3 [facility] Comment on above: Performed By: #### C MP, CBC #### [address] MCV (RBC) [Entitic vol] 90.0 fL Normal 80-100 [facility] Comment on above: Performed By: #### C MP, CBC #### [address] Mean Corpuscular HGB Conc 32.8 g/dL Normal 32.0-35.0 [facility] Comment on above: Performed By: #### C MP, CBC #### [address] Monocytes (Bld) [#/Vol] 0.5 10*3/uL Normal 0.0-0.8 [facility] Comment on above: Performed By: #### C MP, CBC #### [address] Monocytes/100 WBC (Bld) 10.3 % Normal . [facility] Comment on above: Performed By: #### C MP, CBC #### [address] Neutrophils (Bld) [#/Vol] 3.5 10*3/uL Normal 1.8-7.7 [facility] Comment on above: Performed By: #### C MP, CBC #### [address] Neutrophils/100 WBC (Bld) 69.1 % Normal . [facility] Comment on above: Performed By: #### C MP, CBC #### [facility] [address] NRBC% 0.0 /100{WBC} Normal 0-0.5 [facility] Comment on above: Performed By: #### C MP, CBC #### [address] Platelet mean volume (Bld) [Entitic vol] 7.2 fL Normal 6.3-10.7 [facility] Comment on above: Performed By: #### C MP, CBC #### [address] Platelets (Bld) [#/Vol] 241 10*3/uL Normal 150-450 [facility] Comment on above: Performed By: #### C MP, CBC #### [address] RBC (Bld) [#/Vol] 3.64 10*6/uL Normal 3.60-5.00 [facility] Comment on above: Performed By: #### C MP, CBC #### [address] WBC (Bld) [#/Vol] 5.1 10*3/uL Normal 3.8-11.6 [facility] Comment on above: Performed By: #### C MP, CBC #### [address] Comprehensive Metabolic Pane arthur 06-17-2022 Albumin [Mass/Vol] 3.6 g/dL Normal 3.2-5.5 [facility] Comment on above: Performed By: #### C BC, CMP #### [address] [place] [address] [place] Albumin/Globulin [Mass ratio] 1.4 {ratio} Normal [facility] Comment on above: Performed By: #### C BC, CMP #### [address] ALP [Catalytic activity/Vol] 82 U/L Normal 32-92 [facility] Comment on above: Performed By: #### C BC, CMP #### [address] ALT [Catalytic activity/Vol] 34 U/L Normal 10-60 [facility] Comment on above: Performed By: #### C BC, CMP #### [address] Anion gap [Moles/Vol] 11.1 mmol/L Normal 6.0-15.0 [facility] Comment on above: Performed By: #### C BC, CMP #### [address] AST [Catalytic activity/Vol] 36 U/L Normal 10-42 [facility] Comment on above: Performed By: #### C BC, CMP #### [address] Bilirubin [Mass/Vol] 0.8 mg/dL Normal 0.3-1.2 [facility] Comment on above: Performed By: #### C BC, CMP #### [facility] [address] [place] [address] Calcium [Mass/Vol] 9.5 mg/dL Normal 8.2-10.2 [facility] Comment on above: Performed By: #### C BC, CMP #### [facility] [address] [place] [address] [place] Chloride [Moles/Vol] 101 mmol/L Normal 95-114 [facility] Comment on above: Performed By: #### C BC, CMP #### [address] CO2 [Moles/Vol] 24.5 mmol/L Normal 22.0-30.0 [facility] Comment on above: Performed By: #### C BC, CMP #### [facility] [address] Creatinine [Mass/Vol] 0.66 mg/dL Normal 0.44-1.03 [facility] Comment on above: Performed By: #### C BC, CMP #### [facility] [address] Creatinine Clr Calc Pharmacy 110.52 [facility] Comment on above: Result Comment: PERF ORMED BY: [facility] [address] [place] [address] PATHOLOGIST CORRECTIONAL LIEUTENANT CHITO HENDRICKS M.D. Performed By: #### C BC, CMP #### [facility] [address] Estimated GFR ( Janis > 60 [facility] Comment on above: Result Comment: GFR estimated reference range: According to KDOQI guidelines, <60 ml/min/1.73m2 is sufficient to diagnose a patient with chronic kidney disease. Performed By: #### C BC, CMP #### [facility] [address] Estimated GFR (Non- Am > 60 [facility] Comment on above: Performed By: #### C BC, CMP #### [facility] [address] Globulin (S) [Mass/Vol] 2.6 g/dL Normal [facility] Comment on above: Performed By: #### C BC, CMP #### [facility] [address] Glucose [Mass/Vol] 94 mg/dL Normal 70-100 [facility] Comment on above: Result Comment: [place] Glucose Reference Range is dependent on time and content of last meal. Glucose of more than 200 mg/dL in a nonstressed, ambulatory subject supports the diagnosis of Diabetes Mellitus. ADA recommended reference range Performed By: #### C BC, CMP #### [facility] [address] Potassium [Moles/Vol] 3.6 mmol/L Normal 3.5-5.1 [facility] Comment on above: Performed By: #### C BC, CMP #### [facility] [address] Protein [Mass/Vol] 6.2 g/dL Normal 6.1-7.9 [facility] Comment on above: Performed By: #### C BC, CMP #### [facility] [address] Sodium [Moles/Vol] 133 mmol/L Low 136-146 [facility] Comment on above: Performed By: #### C BC, CMP #### [facility] [address] Urea nitrogen [Mass/Vol] 7 mg/dL Low 9-23 [facility] Comment on above: Performed By: #### C BC, CMP #### [facility] [address] [place] [address] Cortisolon 06-17-2022 Cortisol 0.4 ug/dL Normal [facility] Comment on above: Result Comment: Refe rence range: AM 6 - 24 ug/dl PM <10 ug/dl PERFORMED BY: [place] [address] PATHOLOGIST CORRECTIONAL LIEUTENANT CHITO HENDRICKS M.D. Performed By: #### C MP, CBC #### [facility] [address] [place] [address] Creatinine and Glomerular fi ltration rate.predicted panel (S/P/Bld)Ordered By: Kallie Chang on 06-17-2022 Creatinine [Mass/Vol] 0.66 mg/dL 0.44-1.03 [facility] Eosinophils Auto (Bld) [#/Vo l]Ordered By: Kallie Chang on 06-17-2022 Eosinophils (Bld) [#/Vol] 0.1 10*3/uL 0.0-0.45 [facility] Eosinophils/100 WBC Auto (Bl d)Ordered By: Kallie Chang on 06-17-2022 Eosinophils/100 WBC (Bld) 2.7 % . [facility] Erythrocyte distribution wid th Auto (RBC) [Ratio]Ordered By: Kallie Chang on 06-17-2022 Erythrocyte distribution width (RBC) [Ratio] 13.2 % 11.9-15.3 [facility] Estimated glomerular filtrat ion rate (GFR) non- AmericanOrdered By: Kallie Chang on 06-17-2022 GFR/1.73 sq M.predicted among non-blacks MDRD (S/P/Bld) [Vol rate/Area] > 60 mL/Min [facility] Free T4 (Free Thyroxine)on 08-17-2021 Free T4 [Mass/Vol] 0.43 ng/dL Low 0.61-1.12 [facility] Comment on above: Performed By: #### C MP, CBC #### [facility] [address] Globulin Calc (S) [Mass/Vol] Ordered By: Kallie Chang on 06-17-2022 Globulin (S) [Mass/Vol] 2.6 g/dL F [facility] Hematocrit Auto (Bld) [Volum e fraction]Ordered By: Kallie Chang on 06-17-2022 Hematocrit (Bld) [Volume fraction] 32.8 % 34.0-46.4 [facility] Hemoglobin [Mass/volume] in BloodOrdered By: Kallie Chang on 06-17-2022 Hemoglobin (Bld) [Mass/Vol] 10.7 g/dL 11.8-15.4 [facility] Leukocytes [#/volume] correc annie for nucleated erythrocytes in Blood by Automated counOrdered By: Kallie Chang on 06-17-2022 WBC corrected for nucl RBC Auto (Bld) [#/Vol] 5.1 10*3/uL 3.8-11.6 [facility] Lymphocytes Auto (Bld) [#/Vo l]Ordered By: Kallie Chang on 06-17-2022 Lymphocytes (Bld) [#/Vol] 0.9 10*3/uL 1.00-4.8 [facility] Lymphocytes/100 WBC Auto (Bl d)Ordered By: Kallie Chang on 06-17-2022 Lymphocytes/100 WBC (Bld) 17.2 % . [facility] MCH Auto (RBC) [Entitic mass ]Ordered By: Kallie Chang on 06-17-2022 MCH (RBC) [Entitic mass] 29.5 pg 24.7-34.3 [facility] MCHC Auto (RBC) [Mass/Vol]Or dered By: Kallie Chang on 06-17-2022 MCHC (RBC) [Mass/Vol] 32.8 g/dL 32.0-35.0 Fir [facility] MCV Auto (RBC) [Entitic vol] Ordered By: Kallie Chang on 06-17-2022 MCV (RBC) [Entitic vol] 90.0 fL 80-100 F [facility] Monocytes Auto (Bld) [#/Vol] Ordered By: Kallie Chang on 06-17-2022 Monocytes (Bld) [#/Vol] 0.5 10*3/uL 0.0-0.8 [facility] Monocytes/100 WBC Auto (Bld) Ordered By: Kallie Chang on 06-17-2022 Monocytes/100 WBC (Bld) 10.3 % . F [facility] Neutrophils Auto (Bld) [#/Vo l]Ordered By: Kallie Chang on 06-17-2022 Neutrophils (Bld) [#/Vol] 3.5 10*3/uL 1.8-7.7 [facility] Neutrophils/100 WBC Auto (Bl d)Ordered By: Kallie Chang on 06-17-2022 Neutrophils/100 WBC (Bld) 69.1 % . [facility] No Panel InformationOrdered By: Kallie Chang on 06-17-2022 Adrenocorticotropic Hormone 8.2 pg/mL 7.2-63.3 [facility] Comment on above: ACTH reference inter ervin for samples collected between 7 and10 AM.Performed at: [employer] [id number] Director: Red Sena PhD, Phone: [phone] Estimated GFR () > 60 mL/Min [facility] Comment on above: GFR estimated refere nce range: According to KDOQI guidelines, <60 ml/min/1.73m2 is sufficient to diagnose a patient with chronic kidney disease. Pharmacy Creatinine Clearance (Chem 110.52 [facility] Nucleated erythrocytes [Pres ence] in Blood by Automated countOrdered By: Kallie Chang on 06-17-2022 Nucleated RBC Auto Ql (Bld) 0.0 /100{WBC} 0-0.5 [facility] Platelet mean volume Auto (B ld) [Entitic vol]Ordered By: Kallie Chang on 06-17-2022 Platelet mean volume (Bld) [Entitic vol] 7.2 fL 6.3-10.7 [facility] Platelets Auto (Bld) [#/Vol] Ordered By: Kallie Chang on 06-17-2022 Platelets (Bld) [#/Vol] 241 10*3/uL 150-450 [facility] Protein [Mass/volume] in Ser um or PlasmaOrdered By: Kallie Chang on 06-17-2022 Protein [Mass/Vol] 6.2 g/dL 6.1-7.9 [facility] RBC Auto (Bld) [#/Vol]Ordere d By: Kallie Chang on 06-17-2022 RBC (Bld) [#/Vol] 3.64 10*6/uL 3.60-5.00 [facility] Random cortisol measurementO rdered By: Kallie Chang on 06-17-2022 Cortisol [Mass/Vol] 0.4 ug/dL [facility] Comment on above: Reference range: AM 6 - 24 ug/dl PM <10 ug/dl Serum or plasma alanine napoles otransferase measurement without P-5'-P (enzymatic activiOrdered By: Kallie Chang on 06-17-2022 ALT No additional P-5'-P [Catalytic activity/Vol] 34 U/L 10-60 [facility] Serum or plasma albumin/glob ulin mass ratioOrdered By: Kallie Chang on 06-17-2022 Albumin/Globulin [Mass ratio] 1.4 {ratio} [facility] Serum or plasma alkaline zo sphatase measurement (enzymatic activity/volume)Ordered By: Kallie Chang on 06-17-2022 ALP [Catalytic activity/Vol] 82 U/L 32-92 [facility] Serum or plasma anion gap de terminationOrdered By: Kallie Chang on 06-17-2022 Anion gap [Moles/Vol] 11.1 mmol/L 6.0-15.0 [facility] Serum or plasma aspartate am inotransferase measurement (enzymatic activity/volume)Ordered By: Kallie Chang on 06-17-2022 AST [Catalytic activity/Vol] 36 U/L 10-42 [facility] Serum or plasma calcium daiana urement (mass/volume)Ordered By: Kallie Chang on 06-17-2022 Calcium [Mass/Vol] 9.5 mg/dL 8.2-10.2 [facility] Serum or plasma chloride lizett surement (moles/volume)Ordered By: Kallie Chang on 06-17-2022 Chloride [Moles/Vol] 101 mmol/L 95-114 [facility] Serum or plasma glucose daiana urement (mass/volume)Ordered By: Kallie Chang on 06-17-2022 Glucose [Mass/Vol] 94 mg/dL 70-100 [facility] Comment on above: ADA recommended refe rence rangeRandom Glucose Reference Range is dependent on time and content of last meal. Glucose of more than 200 mg/dL in a nonstressed, ambulatory subject supports the diagnosis of Diabetes Mellitus. Serum or plasma potassium me asurement (moles/volume)Ordered By: Kallie Chang on 06-17-2022 Potassium [Moles/Vol] 3.6 mmol/L 3.5-5.1 [facility] Serum or plasma sodium measu rement (moles/volume)Ordered By: Kallie Chang on 06-17-2022 Sodium [Moles/Vol] 133 mmol/L 136-146 [facility] Serum or plasma total biliru bin measurement (mass/volume)Ordered By: Kallie Chang on 06-17-2022 Bilirubin [Mass/Vol] 0.8 mg/dL 0.3-1.2 [facility] Serum or plasma total carbon dioxide measurement (moles/volume)Ordered By: Kallie Chang on 06-17-2022 CO2 [Moles/Vol] 24.5 mmol/L 22.0-30.0 [facility] Serum or plasma urea nitroge n measurement (mass/volume)Ordered By: Kallie Chang on 06-17-2022 Urea nitrogen [Mass/Vol] 7 mg/dL 9-23 [facility] TSH DL <= 0.005 mIU/L QnOrde red By: Kallie Chang on 06-17-2022 TSH Qn 2.66 m[IU]/L 0.45-5.33 [facility] Thyroid Stimulating Hormoneo n 06-17-2022 TSH Qn 2.66 m[IU]/L Normal 0.45-5.33 [facility] Comment on above: Performed By: #### C MP, CBC #### [facility] [address] [place] [address] Thyroxine (T4) free [Mass/vo lume] in Serum or PlasmaOrdered By: Kallie Bernardo on 06-17-2022 Free T4 [Mass/Vol] 0.43 ng/dL 0.61-1.12 [facility] WBC Auto (Bld) [#/Vol]Ordere d By: Kallie Bernardo on 06-17-2022 WBC (Bld) [#/Vol] 5.1 10*3/uL 3.8-11.6 [facility] Adrenocorticotropic Hormone PLon 05-27-[address] 14.9 pg/mL Normal 7.2-63.3 [facility] Comment on above: Result Comment: ACTH reference interval for samples collected between 7 and 10 AM. Performed at: [facility] [address] [id number] [place] Officer: Red Sena PhD, Phone: [phone] PERFORMED BY: [address] [place] [address] PATHOLOGIST CORRECTIONAL LIEUTENANT CHITO HENDRICKS M.D. Performed By: #### C BC, CMP #### [facility] [address] [place], [place] [id number] [facility] Complete Blood Count Auto Di ffon 05-27-2022 Basophils (Bld) [#/Vol] 0.0 10*3/uL Normal 0.0-0.2 [facility] Comment on above: Result Comment: PERF ORMED BY: [address] [place] [address] PATHOLOGIST CORRECTIONAL LIEUTENANT CHITO HENDRICKS M.D. Performed By: #### C MP, CBC #### [facility] [address] [place] [address] [place] Basophils/100 WBC (Bld) 0.6 % Normal . F [facility] Comment on above: Performed By: #### C MP, CBC #### [facility] [address] [place] [address] [place] Eosinophils (Bld) [#/Vol] 0.3 10*3/uL Normal 0.0-0.45 [facility] Comment on above: Performed By: #### C MP, CBC #### [facility] [address] [place] [address] [place] Eosinophils/100 WBC (Bld) 5.8 % Normal . [facility] Comment on above: Performed By: #### C MP, CBC #### [address] Erythrocyte distribution width (RBC) [Ratio] 13.3 % Normal 11.9-15.3 [facility] Comment on above: Performed By: #### C MP, CBC #### [facility] [address] [place] [address] [place] Hematocrit (Bld) [Volume fraction] 31.2 % Low 34.0-46.4 [facility] Comment on above: Performed By: #### C MP, CBC #### [facility] [address] [place] [address] [place] Hemoglobin (Bld) [Mass/Vol] 10.5 g/dL Low 11.8-15.4 [facility] Comment on above: Performed By: #### C MP, CBC #### [facility] [address] [place] [address] [place] Lymphocytes (Bld) [#/Vol] 1.0 10*3/uL Normal 1.00-4.8 [facility] Comment on above: Performed By: #### C MP, CBC #### [facility] [address] [place] [address] [place] Lymphocytes/100 WBC (Bld) 19.1 % Normal . [facility] Comment on above: Performed By: #### C MP, CBC #### [facility] [address] MCH (RBC) [Entitic mass] 30.4 pg Normal 24.7-34.3 [facility] Comment on above: Performed By: #### C MP, CBC #### [facility] [address] MCV (RBC) [Entitic vol] 90.1 fL Normal 80-100 F [facility] Comment on above: Performed By: #### C MP, CBC #### [facility] [address] Mean Corpuscular HGB Conc 33.7 g/dL Normal 32.0-35.0 [facility] Comment on above: Performed By: #### C MP, CBC #### [facility] [address] Monocytes (Bld) [#/Vol] 0.4 10*3/uL Normal 0.0-0.8 [facility] Comment on above: Performed By: #### C MP, CBC #### [facility] [address] [place] [address] [place] Monocytes/100 WBC (Bld) 8.4 % Normal . F [facility] Comment on above: Performed By: #### C MP, CBC #### [facility] [address] [place] [address] [place] Neutrophils (Bld) [#/Vol] 3.5 10*3/uL Normal 1.8-7.7 [facility] Comment on above: Performed By: #### C MP, CBC #### [facility] [address] [place] [address] [place] Neutrophils/100 WBC (Bld) 66.1 % Normal . [facility] Comment on above: Performed By: #### C MP, CBC #### [facility] [address] [place] [address] [place] Nucleated RBC/100 WBC (Bld) [Ratio] 0.1 % Normal 0-0.5 [facility] Comment on above: Performed By: #### C MP, CBC #### [facility] [address] Platelet mean volume (Bld) [Entitic vol] 7.4 fL Normal 6.3-10.7 [facility] Comment on above: Performed By: #### C MP, CBC #### [address] Platelets (Bld) [#/Vol] 278 10*3/uL Normal 150-450 [facility] Comment on above: Performed By: #### C MP, CBC #### [address] RBC (Bld) [#/Vol] 3.46 10*6/uL Low 3.60-5.00 [facility] Comment on above: Performed By: #### C MP, CBC #### [address] WBC (Bld) [#/Vol] 5.2 10*3/uL Normal 4.5-11.0 [facility] Comment on above: Performed By: #### C MP, CBC #### [address] Comprehensive Metabolic Pane arthur 05-27-2022 Albumin [Mass/Vol] 3.2 g/dL Normal 3.2-5.5 [facility] Comment on above: Performed By: #### C MP, CBC #### [address] Albumin/Globulin [Mass ratio] 1.3 {ratio} Normal [facility] Comment on above: Performed By: #### C MP, CBC #### [address] ALP [Catalytic activity/Vol] 56 U/L Normal 32-92 [facility] Comment on above: Performed By: #### C MP, CBC #### [address] ALT [Catalytic activity/Vol] 28 U/L Normal 10-60 [facility] Comment on above: Performed By: #### C MP, CBC #### [facility] [address] [place] [id number] [facility] Anion gap [Moles/Vol] 9.8 mmol/L Normal 6.0-15.0 [facility] Comment on above: Performed By: #### C MP, CBC #### [facility] [address] [place] [id number] [facility] AST [Catalytic activity/Vol] 31 U/L Normal 10-42 [facility] Comment on above: Performed By: #### C MP, CBC #### [facility] [address] Bilirubin [Mass/Vol] 0.5 mg/dL Normal 0.3-1.2 [facility] Comment on above: Performed By: #### C MP, CBC #### [facility] [address] Calcium [Mass/Vol] 9.3 mg/dL Normal 8.2-10.2 [facility] Comment on above: Performed By: #### C MP, CBC #### [facility] [address] [place] [address] [place] Chloride [Moles/Vol] 102 mmol/L Normal 95-114 [facility] Comment on above: Performed By: #### C MP, CBC #### [facility] [address] [place] [address] [place] CO2 [Moles/Vol] 26.7 mmol/L Normal 22.0-30.0 [facility] Comment on above: Performed By: #### C MP, CBC #### [facility] [address] [place] [address] [place] Creatinine [Mass/Vol] 0.69 mg/dL Normal 0.44-1.03 [facility] Comment on above: Performed By: #### C MP, CBC #### [facility] [address] [place] [address] [place] Creatinine Clr Calc Pharmacy 109.79 Normal [facility] Comment on above: Result Comment: PERF ORMED BY: [place] [address] PATHOLOGIST CORRECTIONAL LIEUTENANT CHITO HENDRICKS M.D. Performed By: #### C MP, CBC #### [address] Estimated GFR ( Janis > 60 [facility] Comment on above: Result Comment: GFR estimated reference range: According to KDOQI guidelines, <60 ml/min/1.73m2 is sufficient to diagnose a patient with chronic kidney disease. Performed By: #### C MP, CBC #### [address] Estimated GFR (Non- Am > 60 [facility] Comment on above: Performed By: #### C MP, CBC #### [address] Globulin (S) [Mass/Vol] 2.5 g/dL Normal [facility] Comment on above: Performed By: #### C MP, CBC #### [address] Glucose [Mass/Vol] 113 mg/dL High 70-100 [facility] Comment on above: Result Comment: [place] Glucose Reference Range is dependent on time and content of last meal. Glucose of more than 200 mg/dL in a nonstressed, ambulatory subject supports the diagnosis of Diabetes Mellitus. ADA recommended reference range Performed By: #### C MP, CBC #### [address] Potassium [Moles/Vol] 3.5 mmol/L Normal 3.5-5.1 [facility] Comment on above: Performed By: #### C MP, CBC #### [address] Protein [Mass/Vol] 5.7 g/dL Low 6.1-7.9 [facility] Comment on above: Performed By: #### C MP, CBC #### [address] Sodium [Moles/Vol] 135 mmol/L Low 136-146 [facility] Comment on above: Performed By: #### C MP, CBC #### [address] Urea nitrogen [Mass/Vol] 9 mg/dL Normal 9-23 [facility] Comment on above: Performed By: #### C MP, CBC #### [address] Cortisolon 05-27-2022 Cortisol 0.8 ug/dL Normal [facility] Comment on above: Result Comment: Refe rence range: AM 6 - 24 ug/dl PM <10 ug/dl PERFORMED BY: [place] [address] PATHOLOGIST CORRECTIONAL LIEUTENANT CHITO HENDRICKS M.D. Performed By: #### C BC, CMP #### [address] Free T4 (Free Thyroxine)on 07-27-2021 Free T4 [Mass/Vol] 0.46 ng/dL Low 0.61-1.12 [facility] Comment on above: Performed By: #### C BC, CMP #### [address] Laboratory - Hematology and Cell countsOrdered By: Kallie Chang on 05-27-2022 Nucleated RBC/100 WBC (Bld) [Ratio] 0.1 % 0-0.5 [facility] No Panel InformationOrdered By: Kallie Chang on 05-27-2022 Adrenocorticotropic Hormone 14.9 pg/mL 7.2-63.3 [facility] Comment on above: ACTH reference inter ervin for samples collected between 7 and10 AM.Performed at: - [facility] [id number] Director: Red Sena PhD, Phone: [phone] Thyroid Stimulating Hormoneo n 05-27-2022 TSH Qn 1.89 m[IU]/L Normal 0.45-5.33 [facility] Comment on above: Performed By: #### C BC, CMP #### [address] HCG ( test) IA.rapi d Ql (U)Ordered By: Stacie Thomas on 04-16-2022 HCG ( test) Ql (U) Negative [facility] PAP ACOG PANEL 2: 30 to 65on 04-16-2022 . . Normal [facility] Comment on above: Result Comment: Perf ormed at: WB Performed By: #### [id number] #### [facility] [address] [address] [address] Lilly Varner Age Gdln ACOG Testing - Normal [facility] Comment on above: Performed By: #### [id number] #### [facility] [address] [address] [address] Lilly Varner DIAGNOSIS: Comment [facility] Comment on above: Result Comment: NEGA TIVE FOR INTRAEPITHELIAL LESION OR MALIGNANCY. THIS SPECIMEN WAS RESCREENED PART OF OUR MERCHANDISING EXECUTION MANAGER PROGRAM. Performed at: WB Performed By: #### [id number] #### [facility] [address] [address] [address] Lilly Varner HPV Aptima Positive Abnormal Negative [facility] Comment on above: Result Comment: This nucleic acid amplification test detects fourteen high-risk HPV types (16,18,31,33,35,39,45,51,52,56,58,59,66,68) without differentiation. Performed at: =G Performed By: #### [id number] #### [facility] [address] [address] [address] Lilly Varner HPV Genotype 16 Negative Normal Negative [facility] Comment on above: Result Comment: Perf ormed at: =G Performed By: #### [id number] #### [facility] [address] [address] [address] Lilly Varner HPV Genotype 18,45 Positive Abnormal Negative [facility] Comment on above: Result Comment: Perf ormed at: =G Performed By: #### [id number] #### [facility] [address] [address] [address] Lilly Varner Methodology: Comment Normal [facility] Comment on above: Result Comment: This liquid based ThinPrep(R) pap test was screened with the use of an image guided system. Performed at: WB Performed By: #### [id number] #### [facility] [address] [place] [address] Dr. Lilly Varner Note: Comment Normal [facility] Comment on above: Result Comment: The Pap smear is a screening test designed to aid in the detection of premalignant and malignant conditions of the uterine cervix. It is not a diagnostic procedure and should not be used as the sole means of detecting cervical cancer. Both false-positive and false-negative reports do occur. . Performed at: WB Performed By: #### [id number] #### [facility] [address] [place] [address] Dr. Lilly Varner Performed by: Comment Normal [facility] Comment on above: Result Comment: Nickie Ford, Food And Drug Inspector (ASCP) Performed at: WB Performed By: #### [id number] #### [facility] [address] [place] [address] Dr. Lilly Varner QC reviewed by: Comment Normal [facility] Comment on above: Result Comment: Dequan Plaza, Supervisory Food And Drug Inspector (ASCP) Performed at: WB Performed By: #### [id number] #### [facility] [address] [place] [address] Dr. Lilly Varner Specimen adequacy: Comment Normal [facility] Comment on above: Result Comment: Sati sfactory for evaluation. Endocervical and/or squamous metaplastic cells (endocervical component) are present. Performed at: WB Performed By: #### [id number] #### [facility] [address] [place] [address] Dr. Lilly Varner XR DEXA BONE DENSITYon [...] by: KRISTA ROBERTSON Date: 2022-04-14 17:25 Normal [facility] VIT D 25-OH [facility]on 2021 Vitamin D, 25-Hydroxy 19.5 ng/mL Critically low 30.0-100.0 [facility] Comment on above: Result Comment: [place] min D deficiency has been defined by the [place] of [employer] and an Endocrine Society practice guideline as a level of serum 25-OH vitamin D less than 20 ng/mL (1,2). The Endocrine Society went on to further define vitamin D insufficiency as a level between 21 and 29 ng/mL (2). 1. IOM ([place] of [employer]). 2010. Dietary reference intakes for calcium and D. [place]: The National Academies Press. 2. Lorena MF, Art [place], Eleazar SPENCE, et al. Evaluation, treatment, and prevention of vitamin D deficiency: an Endocrine Society clinical practice guideline. JCEM. 2010; 96(7):1911-30. Performed By: #### V ITADLC #### [facility] [address] [place] [address] Dr. Lilly Varner CBC AUTO DIFFon 2022 BASO # 0.0 103/ul Normal 0.0-0.1 [facility] Comment on above: Performed By: #### C BC #### [facility] [address] [place] [address] Dr. Lilly Varner Basophils/100 WBC (Bld) 0.5 % Normal 0.2-2.0 [facility] Comment on above: Performed By: #### C BC #### [facility] [address] [place] [address] Dr. Lilly Varner EO # 0.5 103/ul Normal 0.0-0.7 [facility] Comment on above: Performed By: #### C BC #### [facility] [address] [place] [address] Dr. Lilly Varner Eosinophils/100 WBC (Bld) 6.4 % Normal 0.9-7.0 [facility] Comment on above: Performed By: #### C BC #### [facility] [address] [place] [address] Dr. Lilly Varner Erythrocyte distribution width (RBC) [Ratio] 13.0 % Normal 11.0-15.0 [facility] Comment on above: Performed By: #### C BC #### [facility] [address] [place] [address] Dr. Lilly Varner Hematocrit (Bld) [Volume fraction] 40.1 % Normal 36.0-48.0 [facility] Comment on above: Performed By: #### C BC #### [facility] [address] [place] [address] Dr. Lilly Varner Hemoglobin (Bld) [Mass/Vol] 12.7 g/dL Normal 12.0-16.0 [facility] Comment on above: Performed By: #### C BC #### [facility] [address] [place] [address] Dr. Lilly Varner IG # 0.04 10e3/ul Critically high 0.00-0.03 [facility] Comment on above: Performed By: #### C BC #### [facility] [address] [place] [address] Dr. Lilly Varner IG % 0.5 % Normal 0.0-0.5 [facility] Comment on above: Performed By: #### C BC #### [facility] [address] [place] [address] Dr. Lilly Varner LYMPH # 2.0 103/ul Normal 1.2-3.8 [facility] Comment on above: Performed By: #### C BC #### [facility] [address] [place] [address] Dr. Lilly Varner Lymphocytes/100 WBC (Bld) 24.3 % Normal 20.5-60.0 [facility] Comment on above: Performed By: #### C BC #### [facility] [address] [place] [address] Dr. Lilly Varner MANUAL DIFF REQ NO Normal [facility] Comment on above: Performed By: #### C BC #### [facility] [address] [address] [address] Lilly Varner MCH (RBC) [Entitic mass] 30.3 pg Normal 26.7-34.0 [facility] Comment on above: Performed By: #### C BC #### [facility] [address] [address] [address] Lilly Varner MCHC (RBC) [Mass/Vol] 31.7 g/dL Normal 29.9-35.2 [facility] Comment on above: Performed By: #### C BC #### [facility] [address] [place] [address] Dr. Lilly Varner MCV (RBC) [Entitic vol] 95.7 fL Normal 81.0-99.0 [facility] Comment on above: Performed By: #### C BC #### [facility] [address] [place] [address] Dr. Lilly Varner MONO # 0.5 103/ul Normal 0.3-0.8 [facility] Comment on above: Performed By: #### C BC #### [facility] [address] [place] [address] Dr. Lilly Varner Monocytes/100 WBC (Bld) 5.7 % Normal 1.7-12.0 [facility] Comment on above: Performed By: #### C BC #### [facility] [address] [place] [address] Dr. Lilly Varner NEUT # 5.1 103/ul Normal 1.4-6.5 [facility] Comment on above: Performed By: #### C BC #### [facility] [address] [place] [address] Dr. Lilly Varner Neutrophils/100 WBC (Bld) 62.6 % Normal 43.0-75.0 [facility] Comment on above: Performed By: #### C BC #### [facility] [address] [place] [address] Dr. Lilly Varner Platelet mean volume (Bld) [Entitic vol] 8.6 fL Critically low 9.5-13.5 [facility] Comment on above: Performed By: #### C BC #### [facility] [address] [address] [address] Lilly Varner PLT 279 103/ul Normal 150-450 [facility] Comment on above: Performed By: #### C BC #### [facility] [address] [address] [address] Lilly Varner RBC 4.19 106/ul Critically low 4.20-5.40 [facility] Comment on above: Performed By: #### C BC #### [facility] [address] [address] [address] Lilly Varner WBC 8.2 103/ul Normal 4.0-11.0 [facility] Comment on above: Performed By: #### C BC #### [facility] [address] [address] [address] Lilly Varner GLYCOHEMOGLOBIN A1Con 2021 ADA RECOMMENDATION SEE BELOW Normal [facility] Comment on above: Result Comment: ADA RECOMMENDED LIMIT 4.0 - 6.0 ADA THERAPEUTIC TARGET < 7.0 ACTION SUGGESTED > 7.0 Performed By: #### A 1C ####[facility] [id number] [address] Lilly Varner Glucose [Mass/Vol] 128 mg/dL Normal [facility] Comment on above: Performed By: #### A 1C ####[facility] [id number] [id number]. Lilly Varner HbA1c (Bld) [Mass fraction] 6.1 % Normal 4.5-6.2 [facility] Comment on above: Performed By: #### A 1C ####[facility] [id number] [address]Dr. Lilly Varner LIPID PROFILEon 2022 CHOL-HDL RATIO NORM SEE BELOW Normal [facility] Comment on above: Result Comment: 3.3 - 4.4 LOW RISK 4.4 - 7.1 AVERAGE RISK 7.1 - 11.0 MODERATE RISK >11.0 HIGH RISK Performed By: #### C MP, TSH, LIPID #### [facility] [address] [address] [address] Lilly Varner Cholesterol [Mass/Vol] 291 mg/dL Critically high <=200 [facility] Comment on above: Performed By: #### C MP, TSH, LIPID #### [facility] [address] [address] [address] Lilly Varner Cholesterol in HDL [Mass/Vol] 60 mg/dL Normal 40-60 [facility] Comment on above: Performed By: #### C MP, TSH, LIPID #### [facility] [address] [address] [address] Lilly Varner Cholesterol in LDL [Mass/Vol] 209.6 mg/dL Normal [facility] Comment on above: Performed By: #### C MP, TSH, LIPID #### [facility] [address] [address] [address] Lilly Varner Cholesterol.total/Cholest caro in HDL [Mass ratio] 4.9 {ratio} Normal [facility] Comment on above: Performed By: #### C MP, TSH, LIPID #### [facility] [address] [address] [address] Lilly Varner HDL NORMAL > or = 60 mg/dl - LO W CARDIOVASCULAR RISK <40 mg/dl - HIGH CARDIOVASCULAR RISK Normal [facility] Comment on above: Performed By: #### C MP, TSH, LIPID #### [facility] [address] [address] [address] Lilly Varner LDL CALC NORMAL SEE BELOW Normal [facility] Comment on above: Result Comment: <100 mg/dl OPTIMAL 100 - 129 mg/dl NEAR OR ABOVE OPTIMAL 130 - 159 mg/dl BORDERLINE HIGH 160 - 189 mg/dl HIGH >190 mg/dl VERY HIGH Performed By: #### C MP, TSH, LIPID #### [facility] [address] [address] [address] Lilly Varner Triglyceride [Mass/Vol] 107 mg/dL Normal <=150 [facility] Comment on above: Performed By: #### C MP, TSH, LIPID #### [facility] [address] [address] [address] Lilly Varner VLDL CALC 21.4 mg/dL Normal [facility] Comment on above: Performed By: #### C MP, TSH, LIPID #### [facility] [address] [address] [address] Lilly Varner PROF 14(COMP METB)on 022 Albumin [Mass/Vol] 3.9 g/dL Normal 3.4-5.0 [facility] Comment on above: Performed By: #### C MP, TSH, LIPID #### [facility] [address] [address] [address] Lilly Varner Albumin/Globulin [Mass ratio] 1.1 {ratio} Normal [facility] Comment on above: Performed By: #### C MP, TSH, LIPID #### [facility] [address] [address] [address] Lilly Varner ALP [Catalytic activity/Vol] 103 U/L Normal 46-116 [facility] Comment on above: Performed By: #### C MP, TSH, LIPID #### [facility] [address] [place] [address] Dr. Lilly Varner ALT [Catalytic activity/Vol] 44 U/L Normal 14-59 [facility] Comment on above: Performed By: #### C MP, TSH, LIPID #### [facility] [address] [address] [address] Lilly Varner Anion gap [Moles/Vol] 12.7 mmol/L Normal [facility] Comment on above: Performed By: #### C MP, TSH, LIPID #### [facility] [address] [address] [address] Lilly Varner AST [Catalytic activity/Vol] 24 U/L Normal 15-37 [facility] Comment on above: Performed By: #### C MP, TSH, LIPID #### [facility] [address] [address] [address] Lilly Varner Bilirubin [Mass/Vol] 0.4 mg/dL Normal 0.2-1.0 [facility] Comment on above: Performed By: #### C MP, TSH, LIPID #### [facility] [address] [address] [address] Lilly Varner Calcium [Mass/Vol] 9.1 mg/dL Normal 8.5-10.1 [facility] Comment on above: Performed By: #### C MP, TSH, LIPID #### [facility] [address] [address] [address] Lilly Varner Chloride [Moles/Vol] 104 mmol/L Normal 98-107 [facility] Comment on above: Performed By: #### C MP, TSH, LIPID #### [facility] [address] [address] [address] Lilly Varner CO2 [Moles/Vol] 28.4 mmol/L Normal 21.0-32.0 [facility] Comment on above: Performed By: #### C MP, TSH, LIPID #### [facility] [address] [place] [address] Dr. Lilly Varner Creatinine [Mass/Vol] 0.75 mg/dL Normal 0.55-1.02 [facility] Comment on above: Performed By: #### C MP, TSH, LIPID #### [facility] [address] [place] [address] Dr. Lilly Varner EGFR-AF TOGOLESE >60 Normal >=60 [facility] Comment on above: Performed By: #### C MP, TSH, LIPID #### [facility] [address] [place] [address] Dr. Lilly Varner EGFR-NON AF TOGOLESE >60 Normal >=60 [facility] Comment on above: Performed By: #### C MP, TSH, LIPID #### [facility] [address] [place] [address] Dr. Lilly Varner Globulin (S) [Mass/Vol] 3.7 g/dL Normal [facility] Comment on above: Performed By: #### C MP, TSH, LIPID #### [facility] [address] [place] [address] Dr. Lilly Varner Glucose [Mass/Vol] 98 mg/dL Normal 74-106 [facility] Comment on above: Performed By: #### C MP, TSH, LIPID #### [facility] [address] [place] [address] Dr. Lilly Varner Potassium [Moles/Vol] 4.1 mmol/L Normal 3.5-5.1 [facility] Comment on above: Performed By: #### C MP, TSH, LIPID #### [facility] [address] [place] [address] Dr. Lilly Varner Protein [Mass/Vol] 7.6 g/dL Normal 6.4-8.2 [facility] Comment on above: Performed By: #### C MP, TSH, LIPID #### [facility] [address] [place] [address] Dr. Lilly Varner Sodium [Moles/Vol] 141 mmol/L Normal 136-145 [facility] Comment on above: Performed By: #### C MP, TSH, LIPID #### [facility] [address] [place] [address] Dr. Lilly Varner Urea nitrogen [Mass/Vol] 16.0 mg/dL Normal 7.0-18.0 [facility] Comment on above: Performed By: #### C MP, TSH, LIPID #### [facility] [address] [place] [address] Dr. Lilly Varner Urea nitrogen/Creatinine [Mass ratio] 21.3 mg/mg Normal [facility] Comment on above: Performed By: #### C MP, TSH, LIPID #### [facility] [address] [place] [address] Dr. Lilly Varner TSHon 2022 TSH 1.280 uIU/mL Normal 0.358-3.74 0 [facility] Comment on above: Performed By: #### C MP, TSH, LIPID #### [facility] [address] [place] [address] Dr. Lilly Varner [facility]-17 SARS-CoV-2 (COVID-19) RNA SHILPI+probe Ql (Unsp spec) Detected Critically abnormal NOT DETECTED [facility] Comment on above: Result Comment: This test is not yet approved or cleared by the [place] FDA. When there are no FDA-approved or cleared tests available, and other criteria are met, FDA can make tests available under an emergency access mechanism called an Emergency Use Authorization (EUA). The EUA for this test is supported by the Aquatics Specialist of Health and Human Service's declaration that [...] longer be used). Performed By: #### C [facility] #### [facility] [address] [place] [address] Dr. 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 SEE COMMENT. -- Diagnosis Comment -- By report HER2 IHC is negative (1+). Krista Coto M.D. Electronically Signed Out magda02/19/2022 Clinical Information Operative Findings: RIGHT BREAST 6:00 MASS AND CALCIFICATIONS Operation Performed: US GUIDED CORE BIOPSY OF BREAST Source of Specimen A: OUTSIDE SLIDES Gross Description Received from [facility] Department of Pathology are 6 slides labelled, [id number], TENISHA HANCOCK, for consultation at the request [...] 1410 OUTSIDE CONSULTATION Patient Name: TENISHA HANCOCK [facility] Rec: [id number] Path Number: [id number] [facility] ANATOMIC PATHOLOGY [address] [place] [id number] [facility] Comment on above: Performed By: #### P PPVOC #### [facility] [employer] [address] [place] [id number] Grant Officer: Rico Melo MD [facility] BREAST SPECIMENon 2021 [facility] BREAST SPECIMEN EXAMINATION: SPECIMEN RADIOGRAPH 02/17/2022 TECHNIQUE: [...] Gage Eng MD 02/17/22 Final result Normal [facility] Specimen radiograph demonstrates inclusion of the targeted microcalcifications and biopsy clip Findings discussed with Dr. Murguia in person at 12:55pm on 02/17/2022 [facility] EXAMINATION: SPECIMEN RADIOGRAPH 02/17/2022 TECHNIQUE: Single [...] coordinates are A3. Wire tip is intact. [facility] [employer] Work Phone: Radiology Study observation (narrative) [facility] [employer] Work Phone: WILLIE NEEDLE BREAST LOCALIZATI ON [...] Gage Eng MD 02/17/22 Final result Normal [facility] WILLIE NEEDLE LOCALIZATION RIG Ton 02-17-2022 Mammographic wire localization of biopsy clip and associated microcalcifications, as described. No residual mammographic mass. [facility] RIS CONSOLIDATED EXAMINATION: MAMMOGRAPHIC GUIDED NEEDLE LOCALIZATION [...] the wire. No significant residual mammographic mass. [facility] Radiology Study observation (narrative) [employer] R[employer]Z [employer] Work Phone: WILLIE NEEDLE LOCALIZATION RIGH TOrdered By: Gage Eng on 02-17-2022 [employer] WELCH [employer] Work Phone: NM LYMPHOSCINTIGRAMon 2021 NM LYMPHOSCINTIGRAM [...] Gage Eng MD 02/17/22 Final result Normal [facility] Prompt identificatio n of sentinel lymph node in the right axilla. [facility] EXAMINATION: LYMPHOSCINTIGRAPHY (INJECTION AND IMAGES) 02/17/2022 9:24 [...] ?->No Reason for Exam: Right Breast CA [facility] Gage Eng MD - 02/17/2022 EXAMINATION: LYMPHOSCINTIGRAPHY [...] lymph node in the right axilla. [employer] Phone: Radiology Study observation (narrative) [employer] Phone: NM LYMPHOSCINTIGRAMOrdered B y: Gage Eng on 02-17-2022 [employer] Phone: Surgical Pathologyon 022 Surgical Pathology (NOTE) -- Diagnosis -- A. RIGHT AXILLARY SENTINEL LYMPH NODES, EXCISIONAL BIOPSIES: - NEGATIVE FOR MALIGNANCY (0/5). B. 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 ([facility], 02/17/22) Microscopic Description A, B. PROCEDURE: Excisional [...] sentinel lymp (more content not included)... Normal [facility] Comment on above: Performed By: #### P PPVS #### [facility] [employer] [facility] [place] [address] Grant Officer: Rico Melo MD MRI BREAST BILATERAL W [...] right mammogram of 22 April 2021 from [facility]. Other right mammogram of June 2021 at an outside facility is not available. HISTORY: ORDERING SYSTEM PROVIDED HISTORY: Malignant neoplasm of right female breast, unspecified estrogen receptor status, unspecified site of breast (HCC) TECHNOLOGIST PROVIDED HISTORY: STAT Creatinine as needed:->Yes Last MRI done at [facility] in [place]. Result scanned in Media Reason for Exam: Last MRI done at [facility] in [place]. Result scanned in Media , Malign Additional signs and symptoms: Last MRI done at [facility] in [place]. Result scanned in Media , Malignant neoplasm [...] Ashlie Fofana MD 02/04/22 Final result Normal [facility] 1. Area of 9 x 6 [...] OVERALL ASSESSMENT - KNOWN BIOPSY PROVEN MALIGNANCY. [facility] RIS CONSOLIDATED EXAMINATION: MRI OF THE BILATERAL [...] right mammogram of 22 April 2021 from [facility]. Other right mammogram of June 2021 at an outside facility is not available. HISTORY: ORDERING SYSTEM PROVIDED HISTORY: Malignant neoplasm of right female breast, unspecified estrogen receptor status, unspecified site of breast (HCC) TECHNOLOGIST PROVIDED HISTORY: STAT Creatinine as needed:->Yes Last MRI done at [facility] in [place]. Result scanned in Media Reason for Exam: Last MRI done at [facility] in [place]. Result scanned in Media , Malign Additional signs and symptoms: Last MRI done at [facility] in [place]. Result scanned in Media , Malignant neoplasm [...] abnormal signal intensity or contrast enhancement noted. [facility] Radiology Study observation (narrative) [employer] R[employer] Work Phone: MRI BREAST BILATERAL W WO CO NTRASTOrdered By: Ashlie Fofana on 02-04-2022 Interpretation and review of laboratory results Abnormal [employer]ORK[employer] Norton [employer] Work Phone: CORKY WELCH [employer] Phone: Aamir 01-29-2022 CNPN Telephone (BRJESSICAAV) TENISHA HANCOCK ([id number]) 1975 F DEF Date Time Provider Department [...] Encounter Status:Closed by NAT RICKETTS on 02/02/22 [facility] 01-15-2022 CNOV Office Visit (PLASMN ) TENISHA HANCOCK ([id number]) 1975 F DEF Date Time Provider Department 01/15/22 4:00 PM FAHAD RUSSELL During your visit today, we recorded the following information about you: Temperature Pulse Blood pressure Weight 98.1 degrees 72/minute 149/86 87.6 kg Height 1.6 m Fahad Russell MD 01/27/2022 4:45 PM Signed BREAST RECONSTRUCTION EVALUATION CC: Tenisha Hancock is a 46 year old female that presents today for breast reconstruction evaluation. 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 Dr. Reza in [place] is her breast surgeon. 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 Back Exam: no scar; latissimus dorsi muscle function appears to be intact Abdominal Exam: soft, non-tender, obese and protuberant, BS+, non-distended, lap samreen Breast Exam: Asymmetry: Minimal Axillary Lymphadenopathy: no Scars: None Ptosis: R: Grade III L: Grade III Medially displaced nipple: None Assessment: Patient is a candidate for tissue medical authorization specialist Photos taken today Plan: An extensive discussion was undertaken with the patient detailing the risks, benefits and alternatives to tissue medical authorization specialist. Tenisha Hancock was given supplemental information on [...] Past Histories independently gathered by the clinical system support specialist and the remaining scribed note accurately describes my personal service to the patient. patient's condition reviewed and examined ? plan and options of management, complexity, risk benefit limitation potential complication, success /failure of management, expected result and recovery discussed ? I spent 30 minutes in the visit, with more than 50% of the total [id number] time of the visit in counseling / [...] Problem Li (more content not included)... Normal [facility] CNPNon 01-15-2022 CNPN Telephone (BRCRAV) TENISHA HANCOCK ([id number]) 1975 F DEF Date Time Provider Department [...] been, she has had studies at both [facility] and [place]. I was able to have patient get a release and will also fax to [facility] what she has thus far. Our office will continue to work on getting all outside records to be submitted for a second review. Gayeabdulkadir Vanesa 01/16/2022 1:25 PM Signed Pt calling regarding faxed info she had sent to [employer]. Pt asking if fax was received by office or if she needs to do anything else. Pt requesting call back to discuss. Lucinda Alvarez Ma 01/16/2022 3:53 PM Signed Noted I will check when in [place] on Wednesday. Marybel Watson 01/22/2022 9:54 AM [...] 1:20 PM Signed Imaging reports rec'd reviewed: [place] 04/2021 - R screening abnl 2.4 cm [...] I see a teaching note 06/23/[address] [facility] but limited documentation since then as to [...] call with arrival time for that 01/23 [facility] 01/22/2022 3:14 PM Signed Patient called back, she left detailed message on voicemail to return her call at [phone]. Thank you. Nat Ricketts RN 01/22/2022 3:49 [...] for 60 min new cancer consult at [facility] Patient Distribution [employer] 01/23/2022 9:57 AM Signed Pt scheduled Lucinda Alvarez Ma 01/23/2022 10:40 AM Signed Still have not received all records, I spoke to patient today and asked that she help expedite getting her pathology reports and slides from [place] along with all her images and reports, we also need all the workup done at [facility] and [place]. I provided [place] fax number and patient advised she will help me gather all her records. Lucinda Alvarez Ma 01/27/2022 10:00 AM Signed We still have not received path slides as of today. I called and LMOM for Jillian whom is the director of [facility] lab department to get an update. I [...] 01/27/2022 10:34 AM Signed Jillian called from [place] she advised she will work on getting all slides sent to [facility] [place]. Lucinda Alvarez Ma 01/28/2022 9:41 AM Signed Addended by: LUCINDA RED MA on: 01/28/2022 09:41 AM Modules accepted: Orders Allergies As of Date: 01/15/2022 (No Known Allergies) Date Reviewed: 01/15/2022 Reviewed by: Diamond Gibson - Fully Assessed Reason for Visit: Appointment [[id number]] Order(s):OUTSIDE SURG PATH SLIDE REVIEW [[id number]] Order #: [id number] Prescriptions as of 01/28/2022 - citalopram (CELEXA) 20 mg tablet Take 20 mg (more content not included)... Normal [facility] Basophils Auto (Bld) [#/Vol] Ordered By: Kallie Chang on 12-24-2021 Basophils (Bld) [#/Vol] 0.0 10*3/uL 0.0-0.2 [facility] Basophils/100 WBC Auto (Bld) Ordered By: Kallie Chang on 12-24-2021 Basophils/100 WBC (Bld) 0.3 % . F [facility] Blood hemoglobin measurement (mass/volume)Ordered By: Kallie Chang on 12-24-2021 Hemoglobin (Bld) [Mass/Vol] 10.3 g/dL 11.8-15.4 [facility] Blood leukocytes automated c ount (number/volume)Ordered By: Kallie Chang on 12-24-2021 WBC (Bld) [#/Vol] 5.8 10*3/uL 4.5-11.0 [facility] Body fluid albumin measureme nt (mass/volume)Ordered By: Kallie Chang on 12-24-2021 Albumin (Body fld) [Mass/Vol] 3.8 g/dL 3.2-5.5 [facility] [facility] l[facility] rate.predicted panel (S/P/Bld)Ordered By: Kallie Chang on 12-24-2021 Creatinine [Mass/Vol] 0.66 mg/dL 0.44-1.03 [facility] Eosinophils Auto (Bld) [#/Vo l]Ordered By: Kallie Chang on 12-24-2021 Eosinophils (Bld) [#/Vol] 0.1 10*3/uL 0.0-0.45 [facility] Eosinophils/100 WBC Auto (Bl d)Ordered By: Kallie Chang on 12-24-2021 Eosinophils/100 WBC (Bld) 0.9 % . [facility] Erythrocyte distribution wid th Auto (RBC) [Ratio]Ordered By: Kallie Chang on 12-24-2021 Erythrocyte distribution width (RBC) [Ratio] 13.9 % 11.9-15.3 [facility] Estimated glomerular filtrat ion rate (GFR) non- AmericanOrdered By: Kallie Chang on 12-24-2021 GFR/1.73 sq M.predicted among non-blacks MDRD (S/P/Bld) [Vol rate/Area] > 60 mL/Min [facility] Globulin Calc (S) [Mass/Vol] Ordered By: Kallie Chang on 12-24-2021 Globulin (S) [Mass/Vol] 3.0 g/dL F [facility] Hematocrit Auto (Bld) [Volum e fraction]Ordered By: Kallie Chang on 12-24-2021 Hematocrit (Bld) [Volume fraction] 30.4 % 34.0-46.4 [facility] Laboratory - Hematology and Cell countsOrdered By: Kallie Chang on 12-24-2021 Nucleated RBC/100 WBC (Bld) [Ratio] 0.0 % 0-0.5 [facility] Lymphocytes Auto (Bld) [#/Vo l]Ordered By: Kallie Chang on 12-24-2021 Lymphocytes (Bld) [#/Vol] 1.2 10*3/uL 1.00-4.8 [facility] Lymphocytes/100 WBC Auto (Bl d)Ordered By: Kallie Chang on 12-24-2021 Lymphocytes/100 WBC (Bld) 21.5 % . [facility] MCH Auto (RBC) [Entitic mass ]Ordered By: Kallie Chang on 12-24-2021 MCH (RBC) [Entitic mass] 34.6 pg 24.7-34.3 [facility] MCHC Auto (RBC) [Mass/Vol]Or dered By: Kallie Chang on 12-24-2021 MCHC (RBC) [Mass/Vol] 33.9 g/dL 32.0-35.0 Fir [facility] MCV Auto (RBC) [Entitic vol] Ordered By: Kallie Chnag on 12-24-2021 MCV (RBC) [Entitic vol] 102.2 fL 80-100 F [facility] Macrocytes detectionOrdered By: Kallie Chang on 12-24-2021 Macrocytes Ql (Bld) Slight [facility] Monocytes Auto (Bld) [#/Vol] Ordered By: Kallie Chang on 12-24-2021 Monocytes (Bld) [#/Vol] 0.3 10*3/uL 0.0-0.8 [facility] Monocytes/100 WBC Auto (Bld) Ordered By: Kallie Chang on 12-24-2021 Monocytes/100 WBC (Bld) 5.5 % . F [facility] Neutrophils Auto (Bld) [#/Vo l]Ordered By: Kallie Chang on 12-24-2021 Neutrophils (Bld) [#/Vol] 4.1 10*3/uL 1.8-7.7 [facility] Neutrophils/100 WBC Auto (Bl d)Ordered By: Kallie Chang on 12-24-2021 Neutrophils/100 WBC (Bld) 71.8 % . [facility] No Panel InformationOrdered By: Kallie Chang on 12-24-2021 Estimated GFR () > 60 mL/Min [facility] Comment on above: GFR estimated refere nce range: According to KDOQI guidelines, <60 ml/min/1.73m2 is sufficient to diagnose a patient with chronic kidney disease. Pharmacy Creatinine Clearance (Chem 115.02 [facility] Platelet Estimate Normal Normal [facility] Platelet Morphology Comment Normal Normal [facility] Poikilocytosis Slight [facility] Ovalocyte detectionOrdered B y: Kallie Chang on 12-24-2021 Ovalocytes LM Ql (Bld) [facility] Plate[facility] mean volume Auto (B ld) [Entitic vol]Ordered By: Kallie Chang on 12-24-2021 Platelet mean volume (Bld) [Entitic vol] 8.0 fL 6.3-10.7 [facility] Platelets Auto (Bld) [#/Vol] Ordered By: Kallie Chang on 12-24-2021 Platelets (Bld) [#/Vol] 207 10*3/uL 150-450 [facility] Protein [Mass/volume] in Ser um or PlasmaOrdered By: Kallie Chang on 12-24-2021 Protein [Mass/Vol] 6.8 g/dL 6.1-7.9 [facility] RBC Auto (Bld) [#/Vol]Ordere d By: Kallie Chang on 12-24-2021 RBC (Bld) [#/Vol] 2.98 10*6/uL 3.60-5.00 [facility] RBC morphologyOrdered By: Precious Chang on 12-24-2021 RBC morphology finding Nom (Bld) N/A [facility] Serum or plasma alanine napoles otransferase measurement without P-5'-P (enzymatic activiOrdered By: Kallie Chang on 12-24-2021 ALT No additional P-5'-P [Catalytic activity/Vol] 20 U/L 10-60 [facility] Serum or plasma albumin/glob ulin mass ratioOrdered By: Kallie Chang on 12-24-2021 Albumin/Globulin [Mass ratio] 1.3 {ratio} [facility] Serum or plasma alkaline zo sphatase measurement (enzymatic activity/volume)Ordered By: Kallie Chang on 12-24-2021 ALP [Catalytic activity/Vol] 112 U/L 32-92 [facility] Serum or plasma aspartate am inotransferase measurement (enzymatic activity/volume)Ordered By: Kallie Chang on 12-24-2021 AST [Catalytic activity/Vol] 17 U/L 10-42 [facility] Serum or plasma calcium daiana urement (mass/volume)Ordered By: Kallie Chang on 12-24-2021 Calcium [Mass/Vol] 9.6 mg/dL 8.2-10.2 [facility] Serum or plasma chloride lizett surement (moles/volume)Ordered By: Kallie Chang on 12-24-2021 Chloride [Moles/Vol] 98 mmol/L 95-114 [facility] Serum or plasma glucose daiana urement (mass/volume)Ordered By: Kallie Chang on 12-24-2021 Glucose [Mass/Vol] 119 mg/dL 70-100 [facility] Comment on above: ADA recommended refe rence [...] on 12-24-2021 Potassium [Moles/Vol] 4.0 mmol/L 3.5-5.1 [facility] Serum or plasma sodium measu rement (moles/volume)Ordered By: Kallie Chang on 12-24-2021 Sodium [Moles/Vol] 134 mmol/L 136-146 [facility] Serum or plasma total biliru bin measurement (mass/volume)Ordered By: Kallie Chang on 12-24-2021 Bilirubin [Mass/Vol] 0.5 mg/dL 0.3-1.2 [facility] Serum or plasma total carbon dioxide measurement (moles/volume)Ordered By: Kallie Chang on 12-24-2021 CO2 [Moles/Vol] 23.2 mmol/L 22.0-30.0 [facility] Serum or plasma urea nitroge n measurement (mass/volume)Ordered By: Kallie Chang on 12-24-2021 Urea nitrogen [Mass/Vol] 7 mg/dL 04-10 [facility] CNPNon 12-19-2021 CNPN Telephone (DPQ) TENISHA HANCOCK ([id number]) 1975 F Date Time Provider Department 12/19/21 FAHAD RUSSELL DPQ During your visit today, we recorded [...] Status:Closed by ALFREDO ORTEGA on 12/19/21 Normal [facility] No Panel InformationOrdered By: Kallie Chang on 12-16-2021 Adrenocorticotropic Hormone 31.0 pg/mL 7.2-63.3 [facility] Comment on above: ACTH reference inter ervin for samples collected between 7 and 10 AM. Performed at: [facility] [id number] [place] Officer: Red Sena PhD, Phone: [phone] ACTH reference inter ervin for samples collected between 7 and10 AM.Performed at: [facility] [id number] Director: Red Sena PhD, Phone: [phone] Random cortisol measurementO rdered By: Kallie Chang on 12-16-2021 Cortisol [Mass/Vol] 7.2 ug/dL [facility] Comment on above: Reference range: AM 6 - 24 ug/dl PM <10 ug/dl Reference range: AM 6 - 24 ug/dl PM <10 ug/dl TSH DL <= 0.005 mIU/L QnOrde red By: Kallie Chang on 12-16-2021 TSH Qn 0.08 m[IU]/L 0.45-5.33 [facility] Thyroxine (T4) free [Mass/vo lume] in Serum or PlasmaOrdered By: Kallie Chang on 12-16-2021 Free T4 [Mass/Vol] 0.74 ng/dL 0.61-1.12 [facility] No Panel InformationOrdered By: Kallie Chang on 12-02-2021 Dohle Bodies Slight [facility] Teardrop cell detectionOrder ed By: Kallie Chang on 12-02-2021 Dacrocytes LM Ql (Bld) Slight Fi [facility] Toxic leukocyte granulation detectionOrdered By: Kallie Chang on 12-02-2021 Toxic granules LM Ql (Bld) Slight [facility] Basophils/100 WBC Auto (Bld) Ordered By: Kallie Chang on 11-04-2021 Basophils/100 WBC (Bld) 1 % 0-2 F [facility] Blood anisocytosis detection Ordered By: Kallie Chang on 11-04-2021 Anisocytosis Ql (Bld) Moderate [facility] Blood polychromasia detectio n by light microscopyOrdered By: Kallie Chang on 11-04-2021 Polychromasia LM Ql (Bld) Slight [facility] Erythrocyte basophilic stipp ling detectionOrdered By: Kallie Chang on 11-04-2021 Basophilic stippling LM Ql (Bld) Rare [facility] Laboratory - Hematology and Cell countsOrdered By: Kallie Chang on 11-04-2021 Band form neutrophils/100 WBC (Bld) 1 % 0-5 [facility] Lymphocytes/100 WBC Auto (Bl d)Ordered By: Kallie Chang on 11-04-2021 Lymphocytes/100 WBC (Bld) 25 % 18-42 [facility] Monocytes/100 WBC Manual cnt (Bld)Ordered By: Kallie Chang on 11-04-2021 Monocytes/100 WBC (Bld) 6 % 2-11 F [facility] Myelocytes/100 WBC Manual cn t (Bld)Ordered By: Kallie Chang on 11-04-2021 Myelocytes/100 WBC (Bld) 3 % 0-0 [facility] No Panel InformationOrdered By: Kallie Chang on 11-04-2021 Rouleau Slight [facility] Segmented neutrophils/100 WB C Manual cnt (Bld)Ordered By: Kallie Chang on 11-04-2021 Segmented neutrophils/100 WBC (Bld) 64 % 50-70 [facility] Otheron 06-06-1998 CONVERTED ELECTRONIC SIGNATURE PATI [employer], [employer] ARCHITECT (Electronic signature on file) Final Signed Out: 06/06/1998 15:39 [facility] CONVERTED FINAL DIAGNOSIS SPECIMEN ADEQU ACY SATISFACTORY FOR EVALUATION GENERAL CATEGORIZATION BENIGN CELLULAR CHANGES DESCRIPTIVE DIAGNOSIS FUNGAL ORGANISMS MORPHOLOGICALLY CONSISTENT WITH JUAN CARLOS SPECIES. INFLAMMATORY CELL CHANGES. HORMONAL EVALUATION HORMONAL PATTERN COMPATIBLE WITH AGE AND HISTORY [facility] CONVERTED ORDERING PROVIDER Ordering Provider: JAMARI HOYT [facility] CONVERTED PAP DISCLAIMER The Pap test se rves as a screening tool for early detection of cervical cancer. The Pap test does not represent a final diagnostic test for cervical cancer. Furthermore, the Pap test was not designed to screen for other malignancies (endometrial, ovarian cancer, etc....). False negatives and false positives have occurred. If clinically indicated, further patient evaluation is recommended. [facility] Vital Signs Date Time Vital Sign Value Performing Clinician Facility 11-25-2022 14:42-0400 Body temperature 97.8 [degF] MD Eliel Hurd Work Phone: [facility] 11-25-2022 14:42-0400 Body weight 79.83 kg MD Eliel Hurd Work Phone: [facility] 11-25-2022 14:42-0400 Diastolic blood pressure 73 mm[Hg] MD Eliel Hurd Work Phone: [facility] 11-25-2022 14:42-0400 Heart rate 75 /min MD Eliel Hurd Work Phone: [facility] 11-25-2022 14:42-0400 Respiratory rate 16 /min MD Eliel Hurd Work Phone: [facility] 11-25-2022 14:42-0400 SaO2% (BldA) [Mass fraction] 97 % MD Eliel Hurd Work Phone: [facility] 11-25-2022 14:42-0400 Systolic blood pressure 109 mm[Hg] MD Eliel Hurd Work Phone: [facility] 09-18-2022 13:38-0500 Body temperature 98 [degF] MD Eliel Hurd Work Phone: [facility] 09-18-2022 13:38-0500 Body weight 80.4 kg MD Eliel Hurd Work Phone: [facility] 09-18-2022 13:38-0500 Diastolic blood pressure 78 mm[Hg] MD Eliel Hurd Work Phone: [facility] 09-18-2022 13:38-0500 Heart rate 77 /min MD Eliel Hurd Work Phone: [facility] 09-18-2022 13:38-0500 Respiratory rate 16 /min MD Eliel Hurd Work Phone: [facility] 09-18-2022 13:38-0500 SaO2% (BldA) [Mass fraction] 99 % MD Eliel Hurd Work Phone: [facility] 09-18-2022 13:38-0500 Systolic blood pressure 115 mm[Hg] MD Eliel Hurd Work Phone: [facility] 08-14-2022 14:08-0500 Body weight 79.6 kg MD Eliel Hurd Work Phone: [facility] 08-14-2022 14:08-0500 Diastolic blood pressure 68 mm[Hg] MD Eliel Hurd Work Phone: [facility] 08-14-2022 14:08-0500 Heart rate 72 /min MD Eliel Hurd Work Phone: [facility] 08-14-2022 14:08-0500 Respiratory rate 18 /min MD Eliel Hurd Work Phone: [facility] 08-14-2022 14:08-0500 SaO2% (BldA) [Mass fraction] 99 % MD Eliel Hurd Work Phone: [facility] 08-14-2022 14:08-0500 Systolic blood pressure 103 mm[Hg] MD Eliel Hurd Work Phone: [facility] 08-07-2022 13:06-0500 Body temperature 98 [degF] MD Eliel Hurd Work Phone: [facility] 08-06-2022 13:31-0500 Body temperature 97.8 [degF] MD Eliel Hurd Work Phone: [facility] 08-06-2022 13:31-0500 Body weight 76.1 kg MD Eliel Hurd Work Phone: [facility] 08-06-2022 13:31-0500 Diastolic blood pressure 78 mm[Hg] MD Eliel Hurd Work Phone: [facility] 08-06-2022 13:31-0500 Heart rate 60 /min MD Eliel Hurd Work Phone: [facility] 08-06-2022 13:31-0500 Respiratory rate 16 /min MD Eliel Hurd Work Phone: [facility] 08-06-2022 13:31-0500 SaO2% (BldA) [Mass fraction] 95 % MD Eliel Hurd Work Phone: [facility] 08-06-2022 13:31-0500 Systolic blood pressure 115 mm[Hg] MD Eliel Hurd Work Phone: [facility] 07-15-2022 13:06-0500 Body height 160.02 cm MD Eliel Hurd Work Phone: [facility] 07-15-2022 13:06-0500 Body temperature 97.5 [degF] MD Eliel Hurd Work Phone: [facility] 07-15-2022 13:06-0500 Body weight 75.3 kg MD Eliel Hurd Work Phone: [facility] 07-15-2022 13:06-0500 Diastolic blood pressure 61 mm[Hg] MD Eliel Hurd Work Phone: [facility] 07-15-2022 13:06-0500 Heart rate 80 /min MD Eliel Hurd Work Phone: [facility] 07-15-2022 13:06-0500 Respiratory rate 18 /min MD Eliel Hurd Work Phone: [facility] 07-15-2022 13:06-0500 SaO2% (BldA) [Mass fraction] 98 % MD Eliel Hurd Work Phone: [facility] 07-15-2022 13:06-0500 Systolic blood pressure 102 mm[Hg] MD Eliel Hurd Work Phone: [facility] 06-18-2022 10:07-0500 Body height 160.02 cm MD Eliel Hurd Work Phone: [facility] 06-18-2022 10:07-0500 Body temperature 98.4 [degF] MD Eliel Hurd Work Phone: [facility] 06-18-2022 10:07-0500 Body weight 78.9 kg MD Eliel Hurd Work Phone: [facility] 06-18-2022 10:07-0500 Diastolic blood pressure 80 mm[Hg] MD Eliel Hurd Work Phone: [facility] 06-18-2022 10:07-0500 Heart rate 84 /min MD Eliel Hurd Work Phone: [facility] 06-18-2022 10:07-0500 Respiratory rate 20 /min MD Eliel Hurd Work Phone: [facility] 06-18-2022 10:07-0500 SaO2% (BldA) [Mass fraction] 100 % MD Eliel Hurd Work Phone: [facility] 06-18-2022 10:07-0500 Systolic blood pressure 117 mm[Hg] MD Eliel Hurd Work Phone: [facility] 03-19-2022 10:00-0400 Body temperature 98.8 [degF] MD Eliel Hurd Work Phone: [facility] 03-19-2022 10:00-0400 Body weight 90.26 kg MD Eliel Hurd Work Phone: [facility] 03-19-2022 10:00-0400 Diastolic blood pressure 86 mm[Hg] MD Eliel Hurd Work Phone: [facility] 03-19-2022 10:00-0400 Heart rate 68 /min MD Eliel Hurd Work Phone: [facility] 03-19-2022 10:00-0400 Respiratory rate 18 /min MD Eliel Hurd Work Phone: [facility] 03-19-2022 10:00-0400 SaO2% (BldA) [Mass fraction] 98 % MD Eliel Hurd Work Phone: [facility] 03-19-2022 10:00-0400 Systolic blood pressure 125 mm[Hg] MD Eliel Hurd Work Phone: [facility] 02-17-2022 16:00-0400 Body temperature 97.5 [degF] Diana Cashen DO Work Phone: [facility] [employer] 02-17-2022 16:00-0400 Diastolic blood pressure 71 mm[Hg] Diana Cashen DO Work Phone: [facility] [employer] 02-17-2022 16:00-0400 Heart rate 101 /min Diana Cashen DO Work Phone: [facility] 02-17-2022 16:00-0400 Respiratory rate 23 /min Diana Cashen DO Work Phone: [facility] [employer] 02-17-2022 16:00-0400 SaO2% (BldA) [Mass fraction] 95 % Diana Cashen DO Work Phone: [facility] [employer] 02-17-2022 16:00-0400 Systolic blood pressure 134 mm[Hg] Diana Cashen DO Work Phone: [facility] [email or web address] 02-17-2022 07:21-0400 Body height 160 cm Diana Cashen DO Work Phone: [facility] [email or web address] 02-17-2022 07:21-0400 Body mass index (BMI) [Ratio] 34.05 kg/m2 Diana Shantal DO Work Phone: [facility] [employer] 02-17-2022 07:21-0400 Body weight 87.18 kg Dianasadie Murguia DO Work Phone: [facility] [employer] 01-15-2022 15:34-0400 Body height 160 cm Fahad Russell MD Work Phone: [facility] 01-15-2022 15:34-0400 Body temperature 98.1 [degF] Fahad Russell MD Work Phone: [facility] 01-15-2022 15:34-0400 Body weight 87.59 kg Fahad Russell MD Work Phone: [facility] 01-15-2022 15:34-0400 Diastolic blood pressure 86 mm[Hg] Fahad Russell MD Work Phone: [facility] 01-15-2022 15:34-0400 Heart rate 72 /min Fahad Russell MD Work Phone: [facility] 01-15-2022 15:34-0400 Systolic blood pressure 149 mm[Hg] Fahad Russell MD Work Phone: [facility] 09-15-2021 15:45-0500 Body height 160.02 cm Franco Stokes Other [employer] Other 09-15-2021 15:45-0500 Body mass index (BMI) [Ratio] 34.36 kg/m2 Franco Stokes Other [employer] Other 09-15-2021 15:45-0500 Body weight 88 kg Franco Stokes Other [employer] Other 07-08-2021 14:14-0500 Body height 160.02 cm MD Eliel Hurd Work Phone: [facility] Encounters Encounter Date Encounter Type Care Provider Facility Start: 06-23-2023 ambulatory Ismael R ANTONELLA Facility : [facility] Start: 05-04-2023 ambulatory Ismael BERMAN Facility:[facility] Start: 04-07-2023 End: 04-07-2023 ambulatory Eliel Hurd Facility:[facility] Start: 04-07-2023 End: 04-07-2023 ambulatory MD Eliel Hurd Work Phone: [facility] Work Phone: Start: 04-07-2023 End: 04-07-2023 Patient encounter procedure MD Eliel Hurd Work Phone: [facility] [address] Work Phone: Start: 02-15-2023 End: 02-16-2023 ambulatory Booker Lizarraga MD Facility:[facility] Start: 01-22-2023 ambulatory Ismael NILL Facility:[facility] Start: 01-11-2023 End: 01-12-2023 ambulatory Booker Lizarraga MD Facility:[facility] Start: 12-28-2022 ambulatory ANDRIUS ELHAM Faci lity:[facility] Start: 12-01-2022 ambulatory BRIEN KOEHLER Facility :[facility] Start: 11-25-2022 ambulatory Kallie Bernardo Facility:[facility] Start: 11-25-2022 End: 11-25-2022 ambulatory MD Eliel Hurd Work Phone: [facility] Work Phone: Start: 11-25-2022 End: 11-25-2022 Registered Recurring MD Eliel Hurd Work Phone: [facility] Work Phone: Start: 09-18-2022 End: 09-18-2022 ambulatory MD Eliel Hurd Work Phone: [facility] Work Phone: Start: 09-18-2022 End: 09-18-2022 Registered Recurring MD Eliel Hurd Work Phone: [facility] Work Phone: Start: 08-14-2022 End: 08-14-2022 ambulatory MD Eliel Hurd Work Phone: [facility] Work Phone: Start: 08-14-2022 End: 08-14-2022 Registered Recurring MD Eliel Hurd Work Phone: [facility] Work Phone: Start: 08-06-2022 End: 08-06-2022 ambulatory MD Eliel Hurd Work Phone: [facility] Work Phone: Start: 08-06-2022 End: 08-06-2022 Registered Recurring MD Eliel Hurd Work Phone: [facility] Work Phone: Start: 07-23-[address] DOCTOR STRINGER Facility :[facility] Start: 07-22-2022 End: 07-22-2022 ambulatory MD Eliel Hurd Work Phone: [facility] Work Phone: Start: 07-22-2022 End: 07-22-2022 Registered Recurring MD Eliel Hurd Work Phone: [facility] Work Phone: Start: 06-19-2022 End: 06-19-2022 ambulatory Miguelcarol Vickers Facility:[facility] Start: 06-19-2022 End: 06-19-2022 Patient encounter procedure MD Eliel Hurd Work Phone: [facility] [address] [place] Work Phone: Start: 06-18-2022 End: 06-18-2022 ambulatory MD Eliel Hurd Work Phone: [facility] Work Phone: Start: 06-18-2022 End: 06-18-2022 Registered Recurring MD Eliel Hurd Work Phone: [facility] Start: 04-16-2022 End: 04-16-2022 ambulatory MD Eliel Hurd Work Phone: [facility] Work Phone: Start: 04-16-2022 End: 04-16-2022 Registered Recurring MD Eliel Hurd Work Phone: [facility] Start: 04-16-2022 End: 04-16-2022 Discharged Recurring MD Eliel Hurd Work Phone: [facility]-Infusion Therapy - O/P Start: 04-14-2022 End: 04-15-[address] KRISTA ROBERTSON Facility:[facility] Start: 04-07-2022 End: 04-07-[address] CHIDI MATT . Facility:[facility] Start: 04-05-2022 Encounter for genera l adult medical examination without abnormal findings DR ELIEL HURD . [facility] Start: 2022 End: 04-01-2022 Encounter for general adult medical examination without abnormal findings DR ELIEL HURD . Facility:[facility] Start: 2022 End: 04-01-[address] ELIEL HURD . Facility:[facility] Start: 03-20-2022 Registered Recurring MD Eliel rogers Work Phone: [facility]Infusion Therapy - O/P Start: 03-19-2022 End: 03-19-2022 Registered Recurring MD Eliel Hurd Work Phone: [facility] Start: 03-14-2022 End: 03-14-2022 ambulatory EARNEST HDZ Facility:[facility] Start: 03-12-2022 End: 03-12-2022 Registered Recurring MD Eliel Hurd Work Phone: [facility] Start: 02-18-2022 End: 02-19-2022 ambulatory [facility] Start: 02-17-2022 End: 02-20-2022 ambulatory [facility] Start: 02-17-2022 End: 02-17-2022 ambulatory [facility] Start: 02-17-2022 End: 02-19-2022 Subsequent hospital visit by physician Jackie Everett Room 1 [facility] Comment on above: Malignant neoplasm o f right female breast, unspecified estrogen receptor status, unspecified site of breast (HCC) Start: 02-17-2022 End: 02-17-2022 Subsequent hospital visit by physician Diana Murguia DO Work Phone: [facility] Comment on above: Status post breast r econstruction (Primary Dx); Status post breast lumpectomy; Abnormal mammogram; Malignant neoplasm of right female breast, unspecified estrogen receptor status, unspecified site of breast (HCC) Start: 02-04-2022 End: [facility]-07[facility] Start: 02-04-2022 End: 02-06-2022 Subsequent hospital visit by physician Lesly [facility] Comment on above: Malignant neoplasm o f right female breast, unspecified estrogen receptor status, unspecified site of breast (HCC) Start: 01-29-2022 Telephone encounter Xiomara tolliver MD Work Phone: [facility] Comment on above: Appointment Start: 01-15-2022 End: 01-15-2022 Patient encounter procedure Fahad Russell MD Work Phone: Plastic Surgery Comment on above: History of breast ca ncer (Primary Dx); Breast asymmetry following reconstructive surgery Start: 01-15-2022 Telephone encounter Xiomara tolliver MD Work Phone: [facility] Comment on above: Appointment Start: 09-15-2021 End: 09-15-2021 ambulatory Franco Stokes Other [facility] [employer] Other Start: 09-15-2021 Office outpatient ne w 30 minutes Franco Stokes [facility] [place], operated by [facility] Start: 05-27-1998 End: 05-27-1998 Patient encounter procedure Conversion [facility] [facility] [place] Start: 05-27-1998 Results Only Conversion José Meyer [facility] Procedures Date Procedure Procedure Detail Performing Clinician [...] MD Work Phone: Start: 05-27-1998 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 José Ap History of mastectomy Status pos t breast lumpectomy Diana Murguia DO Work Phone: Plan of Treatment Date Care Activity Detail Author Start: 04-07-2023 [facility] Start: 09-04-2022 End: 09-04-2022 [facility] Start: 09-03-2022 [facility] Start: 08-07-2022 [facility] Start: 08-05-2022 [facility] Start: 07-22-2022 Adrenocorticotropic hormone measurement [facility] Start: 07-22-2022 [facility] Start: 07-09-2022 [facility] Start: 06-19-2022 [facility] Start: 06-18-2022 [facility] Start: 06-17-2022 Adrenocorticotropic hormone measurement [facility] Start: 05-28-2022 [facility] Start: 04-22-2022 Mammography MAMMOGRAM [facility] [place] Start: 03-20-2022 Registered Recurring Registered Recurring [facility] Therapy - O/P Start: 03-19-2022 Influenza vaccination [facility] [place] Start: 03-04-2022 End: 03-04-2022 Patient encounter procedure 03/04/2022 Office Visit [place] [id number] [address] [facility] Start: 03-04-2022 End: 03-04-2022 Patient encounter procedure 03/04/2022 Office Visit General Surgery Diana Murguia, DO [address] [address] [facility] Start: 02-17-2022 End: 02-17-2022 Mast modf rad w/ax lymph nod w/wo pect/gonzalo min BREAST MASTECTOMY RECONSTRUCTION Malignant neoplasm of right female breast, unspecified estrogen receptor status, unspecified site of breast (HCC) 02/17/2022 10:22 AM [facility] Start: 02-17-2022 End: 02-17-2022 Mastectomy partial BREAST LUMPECTOMY PARTIAL MASTECTOMY Malignant neoplasm of right female breast, unspecified estrogen receptor status, unspecified site of breast (HCC) 02/17/2022 10:22 AM [facility] Start: 02-09-2022 End: 02-09-2022 Patient encounter procedure 02/09/2022 Office Visit General Surgery Diana Murguia, DO [address] [facility] [address] [place] [address] [facility] Start: 12-17-2021 [facility] Start: 11-26-2021 [facility] Start: 11-05-2021 [facility] Start: 10-15-2021 [facility] Start: 09-30-2021 [facility] Start: 09-24-2021 [facility] Start: 09-24-2021 [facility] Start: 09-17-2021 End: 09-17-2021 [facility] Start: 09-16-2021 End: 09-16-2021 [facility] Start: 09-11-2021 End: 09-11-2021 [facility] Start: 09-04-2021 [facility] Start: 08-27-2021 [facility] Start: 08-20-2021 [facility] Start: 08-14-2021 [facility] Start: 08-13-2021 End: 08-14-2021 [facility] Start: 07-30-2021 [facility] Start: 07-28-2021 [facility] Start: 07-21-2021 End: 07-22-2021 [facility] Start: 01-18-2021 COVID-19 VACCINE (3 - Booster for Moderna series) COVID-19 VACCINE (3 - Booster for Moderna series) [facility] [place] Start: 2017 Lipid panel [facility]ids [facility] Start: 2012 Diabetes screen Diabetes screen [facility] Start: 2007 HPV TESTING HPV TESTING [facility] [place] Start: 2007 Screening for malignant neoplasm of cervix [facility] Start: 1998 PAP TESTING PAP TESTING [facility] [place] Start: 1998 Screening for malignant neoplasm of cervix Pap smear [facility] Start: 1996 DTaP/Tdap/Td vaccine (1 - Tdap) DTaP/Tdap/Td vaccine (1 - Tdap) [facility] Start: 1996 Urine microalbumin profile DTAP,TDAP,TD (1 - Tdap) [facility] [place] Start: 1995 HEPATITIS C SCREENING HEPATITIS C SCREENING [facility] [place] Start: 1995 Hepatitis C screening Hepatitis C screen [facility] Start: 1995 HIV SCREENING HIV SCREENING [facility] [place] Start: 1992 HIV screening HIV screen [facility] [place] [facility] Start: 1989 Adult depression screening assessment [facility] [place] Start: 1989 Depression Screen Depression Screen [facility] Start: 1977 COVID-19 Vaccine (#1) COVID-19 Vaccine (#1) [facility] Adrenocorticotropic hormone measurement [facility] Work Phone: Adrenocorticotropic hormone measurement [facility] Adrenocorticotropic hormone measurement [facility] Adrenocorticotropic hormone measurement [facility] Adrenocorticotropic hormone measurement [facility] Adrenocorticotropic hormone measurement [facility] Basophils [#/volume] in Blood by Automated count [facility] Basophils/100 leukoc ytes in Blood by Automated count [facility] Comprehensive metabo lic 1999 panel - Serum or Plasma [facility] Work Phone: Comprehensive metabo lic 1999 panel - Serum or Plasma [facility] Comprehensive metabo lic 1999 panel - Serum or Plasma [facility] Comprehensive metabo lic 1999 panel - Serum or Plasma [facility] Comprehensive metabo lic 1999 panel - Serum or Plasma [facility] Comprehensive metabo lic 1999 panel - Serum or Plasma [facility] Comprehensive metabo lic 1999 panel - Serum or Plasma [facility] Comprehensive metabo lic 1999 panel - Serum or Plasma [facility] Comprehensive metabo lic 1999 panel - Serum or Plasma [facility] Cortisol [Mass/volum e] in Serum or Plasma [facility] Work Phone: Cortisol [Mass/volum e] in Serum or Plasma [facility] Cortisol [Mass/volum e] in Serum or Plasma [facility] Cortisol [Mass/volum e] in Serum or Plasma [facility] Cortisol [Mass/volum e] in Serum or Plasma [facility] Cortisol [Mass/volum e] in Serum or Plasma [facility] CT Head WO and W contrast IV [facility] Work Phone: CT Head WO and W contrast IV [facility] Eosinophils [#/volum e] in Blood [facility] Eosinophils/100 leuk ocytes in Blood by Automated count [facility] Erythrocyte distribu tion width [Ratio] by Automated count [facility] Erythrocytes [#/volu me] in Blood [facility] Hematocrit [Volume F raction] of Blood [facility] Hemoglobin [Mass/vol ume] in Blood [facility] End: 02-17-2022 INITIATE PACU OXYGEN THERAPY PROTOCOL Initiate PACU Oxygen Therapy Protocol Respiratory Care Routine Continuous until discontinued starting 02/17/2022 [facility] Work Phone: Comment on above: Continuous until discontinued starting 0 02/17/2022 Leukocytes [#/volume ] corrected for nucleated erythrocytes in Blood by Automated coun [facility] Leukocytes [#/volume ] in Blood [facility] Lymphocytes [#/volum e] in Blood by Automated count [facility] Lymphocytes/100 leuk ocytes in Blood by Automated count [facility] End: 02-17-2022 WILLIE NEEDLE LOCALIZATION RIGHT WILLIE [employer]LE LOCALIZATION RIGHT Imaging Routine Abnormal mammogram Once for 1 Occurrences starting 02/17/2022 until 02/17/2022 [facility] Work Phone: Comment on above: Once for 1 Occurrences starting 02/18/20 until 02/17/2022 MCH [Entitic mass] b y Automated count [facility] MCHC [Mass/volume] b y Automated count [facility] MCV [Entitic volume] by Automated count [facility] MG Breast - bilatera l Diagnostic [facility] Monocytes [#/volume] in Blood by Automated count [facility] Monocytes/100 leukoc ytes in Blood by Automated count [facility] Neutrophils [#/volum e] in Blood by Automated count [facility] Neutrophils/100 leuk ocytes in Blood by Automated count [facility] Nucleated erythrocyt es [Presence] in Blood by Automated count [facility] Oxygen therapy [Mini mum Data Set] Initiate Oxygen Therapy Protocol Respiratory Care Routine Daily until discontinued starting 02/17/2022 [facility] Work Phone: Comment on above: Daily until discontinued starting 2021 Platelet mean volume [Entitic volume] in Blood by Automated count [facility] Platelets [#/volume] in Blood [facility] Surgical Pathology Surgical Path ology Lab Routine Malignant neoplasm of right female breast, unspecified estrogen receptor status, unspecified site of breast (HCC) Release Upon Ordering for 1 Occurrences starting 02/17/2022 [employer] Phone: Comment on above: Release Upon Ordering for 1 Occurrences starting 02/17/2022 End: 02-17-2022 SURGICAL PATHOLOGY REPORT SURGICAL PATHOLOGY REPORT Lab Routine Once for 1 Occurrences starting 02/17/2022 until 02/17/2022 [employer] Phone: Comment on above: Once for 1 Occurrences starting 02/18/20 22 until 02/17/2022 Thyrotropin [Units/v olume] in Serum or Plasma [facility] Work Phone: Thyrotropin [Units/v olume] in Serum or Plasma [facility] Thyrotropin [Units/v olume] in Serum or Plasma [facility] Thyrotropin [Units/v olume] in Serum or Plasma [facility] Thyrotropin [Units/v olume] in Serum or Plasma [facility] Thyrotropin [Units/v olume] in Serum or Plasma [facility] Thyroxine (T4) free [Mass/volume] in Serum or Plasma [facility] Work Phone: Thyroxine (T4) free [Mass/volume] in Serum or Plasma [facility] Thyroxine (T4) free [Mass/volume] in Serum or Plasma [facility] Thyroxine (T4) free [Mass/volume] in Serum or Plasma [facility] Thyroxine (T4) free [Mass/volume] in Serum or Plasma [facility] Thyroxine (T4) free [Mass/volume] in Serum or Plasma [facility] Payers Date Payer Category Payer Unknown [id number] 2022 Unknown 2021 Unknown MMO MMO [employer] [id number] 2021-Present [phone] [address] [place] [address] O [id number] 2021 Self-pay [id number] 2021 Unknown [id number] 2019 Unknown [id number] 1977 Unknown [id number] 2.16.840.1.221706.3.579.2.177 1977 Unknown [id number] 2.16.840.1.022680.3.579.2.177 1977 Unknown [id number] 2.16.840.1.758080.3.579.2.175 1977 Unknown [id number] 2.16.840.1.869337.3.579.2.175 1977 Unknown [id number] 2.16.840.1.915951.3.579.2.593 1977 Unknown [id number] 2.16.840.1.846191.3.579.2.593 1977 Unknown [id number] 2.16840.1.117507.3.579.2.593 1977 Unknown [id number] 2.16840.1.950993.3.579.2.593 1977 Unknown [id number] 2.840.1.031807.3.579.2.593 1977 Unknown [id number] 2.840.1.171521.3.579.2.593 1977 Unknown [id number] 2.840.1.878544.3.579.2.593 1977 Unknown [id number] 2.840.1.420564.3.579.2.593 1977 Unknown [id number] 2.840.1.590936.3.579.2.196 1977 Unknown [id number] 2.840.1.662373.3.579.2.196 1977 Unknown [id number] .840.1.831088.3.579.2.727 Unknown HCAP/HFA/FAP Active [id number] Unknown [id number] .[id number] Unknown [id number] 2.840.1.707195.3.579.2.531 Unknown [id number] 2.16840.1.939977.3.579.2.531 Social History Date Type Detail Facility Tobacco smoking status NHIS Unknown if ever smoked [facility] Start: 1975 Sex Assigned At Not on file [facility] Sex Assigned At Sex Assigned At Bir th [employer] [facility] Start: 01-15-2022 End: 11-25-2022 Tobacco smoking status NHIS Ex-smoker [facility] [place] Start: 01-15-2022 Tobacco use and exposure Smokeless tobacco non-user [facility] [place] Start: 1975 Sex Assigned At Female [facility] Start: 01-13-2022 End: 02-17-2022 Exposure to SARS-CoV-2 (event) Not sure [facility] [place] History of tobacco use Current smoker [employer] Phone: Start: 02-04-2022 Tobacco use and exposure Former smokeless tobacco user [employer] Phone: Start: 02-17-2022 End: 02-18-2022 Alcohol intake Lifetime non-drinker (finding) [employer] Phone: Clinical Notes 07-08-2021 to 09-19-2022 Note Date & Type Note Facility 09-19-2022 Progress note Note Date/Time September 18, 2022 1:44pm [facility] [place] [address] Hem/Onc Follow Up Note - OP Signed Patient: Tenisha Hancock MR#: [id number] : 1975 Acct:[id number] Age/Sex: 47 / F Type: REG RCR [...] prednisone taper and coordinate resuming immunotherapy. 07/23/2022: Rahcel is here for 1 month follow-up after [...] hydrocortisone 20mg am/10mg pm. Will f/u with PROCEDURE WRITER next week to review symptoms. We may [...] right mastopexy on 02/17/2022 by Drs. Saunders/Drew ([facility]). Her pathology returned with no evidence of [...] Simons and has an appointment scheduled at [facility] to discuss josep flap surgery as [...] overall good. BRCA testing was done through [employer] and is negative. She does have left [...] I willdefer to his impression and recommendations. 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 This is a 46-year-old female who works at [employer] with triple negative breast cancer, referred for neoadjuvant chemotherapy. Mammogramon on April 22, 2021 showed 3 new focal masses with the largest measuring 2 cm in size in the right breast. 2 additional lesions measuring 1 cm and a second 0.9 cm were also seen. The patient was referred for biopsy. Needle biopsy showed triple negative breast cancer, ER negative, ID negative, and H ER 2 -. The patient was referred to Dr. Ismael Red for Xdgagu-p-Ggzg which she has had placed. She has seen my colleague Dr. Smith at the [facility] recommended neoadjuvant chemotherapy and immunotherapy. Because of insurance reasons, she will be getting her treatment here at [facility]. She has had echocardiography as well. According the patient an MRI was obtained prior to neoadjuvant therapy while she was at [facility] we are requesting this prior study. She [...] showed triple negative breast cancer, ER negative, ID negative, and HER 2 -. The patient was referred to Dr. Ismael Red for Bftfoz-i-Haup which she has had placed. She has seen my colleague Dr. Smith at the [facility] recommended neoadjuvant chemotherapy and immunotherapy. Because of insurance reasons, she will be getting her treatment here at [facility]. She has had echocardiography as well. PET/CT [...] 9 cycles --Original breast MRI obtained from [facility] from May 2021, follow-up breast MRI performed [...] preoperatively in late December. 2. 02/17/2022 at [facility], Drs. Saunders/Shantal: needle localized lumpectomy with oncoplastic [...] Allergies Allergy (Verified 09/18/22 13:38) Home Medications smecpsl-ygjpidfeyjdop-mxvhuuwq 250 mg-250 mg-65 mg tablet (Excedrin Migraine) [...] % (Auto) 91.1, Lymph % (Auto) 6.2, Bartholomew % (Auto) 2.3, Eos % (Auto) 0.1, Baso % (Auto) 0.3, Nucleat RBC Rel Count 0.1, Neut # (Auto) 10.4 H, Lymph # (Auto) 0.7 L, Bartholomew # (Auto) 0.3, Eos # (Auto) 0.0, [...] see in consultation by Dr. Smith at [facility] in [place], [place]; however, due to insurance reasons the patient transferredcare [facility]. In reviewing notes from her prior physician [...] do not have records from this from [facility] in [place]. I am requesting this to evaluate her [...] testing returned negative from prior physicians at [facility]. BRCA testing negative Follow-up September is cycle [...] We will review her prior MRI from [facility] in May 2021 in comparison to most [...] other significant toxicities. MRI was reviewed and [facility] tumor board with Dr. Reza and he [...] small focus of residual DCIS, ER 5%, ID 0%. Completed adjuvant radiation then we resumed [...] with sentinel lymph node biopsy 02/17/2022 in [place]. Adjuvant radiation completed 05/04-06/16/2022. Total of 30 [...] for coordination of care (as documented) and elts-cw-muqf counseling of patient and/or family. Dictated By: Kallie Chang MD DD/ [id number] Signed By: <Electronically signed by MD Kallie Chang> 09/18/[address] [facility] Work Phone: 1(365) 226-171702-18-2023 Progress note Author Kallie Chang [facility] September 04, 2022 10:35pm Note Date/Time September 04, 2022 1:11pm [facility] [place] [address] Hem/Onc Follow Up Note - OP Signed Patient: Tenisha Hancock Kaitlin MR#: [id number] : 1975 Acct:[id number] Age/Sex: 47 / F Type: REG RCR [...] hydrocortisone 20mg am/10mg pm. Will f/u with PROCEDURE WRITER next week to review symptoms. We may [...] right mastopexy on 02/17/[address] Drs. Saunders/Drew ([facility]). Her pathology returned with no evidence of [...] Simons and has an appointment scheduled at [facility] to discuss josep flap surgery as [...] overall good. BRCA testing was done through [employer] and is negative. She does have left [...] I willdefer to his impression and recommendations. 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 This is a 46-year-old female who works at [employer] with triple negative breast cancer, referred for neoadjuvant chemotherapy. Mammogramon on April 22, 2021 showed 3 new focal masses with the largest measuring 2 cm in size in the right breast. 2 additional lesions measuring 1 cm and a second 0.9 cm were also seen. The patient was referred for biopsy. Needle biopsy showed triple negative breast cancer, ER negative, ID negative, and H ER 2 -. The patient was referred to Dr. Ismael Red for Niosoa-i-Hepy which she has had placed. She has seen my colleague Dr. Smith at the [facility] recommended neoadjuvant chemotherapy and immunotherapy. Because of insurance reasons, she will be getting her treatment here at [facility]. She has had echocardiography as well. According the patient an MRI was obtained prior to neoadjuvant therapy while she was at [facility] we are requesting this prior study. She [...] showed triple negative breast cancer, ER negative, ID negative, and HER 2 -. The patient was referred to Dr. Ismael Red for Eorqxb-x-Zjgt which she has had placed. She has seen my colleague Dr. Smith at the [facility] recommended neoadjuvant chemotherapy and immunotherapy. Because of insurance reasons, she will be getting her treatment here at [facility]. She has had echocardiography as well. PET/CT [...] 9 cycles --Original breast MRI obtained from [facility] from May 2021, follow-up breast MRI performed [...] preoperatively in late December. 2. 02/17/2022 at [facility], Drs. Saunders/Shantal: needle localized lumpectomy with oncoplastic [...] Allergies Allergy (Verified 09/04/22 13:03) Home Medications ruowdbc-qewxnwxrvxkpa-jxvskafb 250 mg-250 mg-65 mg tablet (Excedrin Migraine) [...] see in consultation by Dr. Smith at [facility] in [place], [place]; however, due to insurance reasons the patient transferredcare to [facility]. In reviewing notes from her prior physician [...] do not have records from this from [facility] in [place]. I am requesting this to evaluate her [...] testing returned negative from prior physicians at [facility]. BRCA testing negative Follow-up September is cycle [...] We will review her prior MRI from [facility] in May 2021 in comparison to most [...] other significant toxicities. MRI was reviewed and [facility] tumor board with Dr. Reza and he [...] small focus of residual DCIS, ER 5%, ID 0%. Completed adjuvant radiation then we resumed [...] for coordination of care (as documented) and sboq-wz-oafu counseling of patient and/or family. Dictated By: Kallie Chang MD DD/ [id number] Signed By: <Electronically signed by MD Kallie Chang> 09/04/[address] [facility] Work Phone: 1(661) 979-297702-03-2023 Progress note Author Ashlie Arriaga [facility] August 21, 2022 1:13pm Note Date/Time August 14, 2022 2 :16pm [facility] [address] [address] Hem/Onc Follow Up Note - OP Signed Patient: Tenisha Hancock MR#: [id number] : 1975 Acct:[id number] Age/Sex: 47 / F Type: REG RCR [...] hydrocortisone 20mg am/10mg pm. Will f/u with PROCEDURE WRITER next week to review symptoms. We may [...] right mastopexy on 02/17/[address] Saunders/Drew ([facility]). Her pathology returned with no evidence of [...] Simons and has an appointment scheduled at [facility] to discuss josep flap surgery as [...] overall good. BRCA testing was done through [employer] and is negative. She does have left [...] I willdefer to his impression and recommendations. 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 This is a 46-year-old female who works at [employer] with triple negative breast cancer, referred for neoadjuvant chemotherapy. Mammogramon on April 22, 2021 showed 3 new focal masses with the largest measuring 2 cm in size in the right breast. 2 additional lesions measuring 1 cm and a second 0.9 cm were also seen. The patient was referred for biopsy. Needle biopsy showed triple negative breast cancer, ER negative, ID negative, and H ER 2 -. The patient was referred to Dr. Ismael Red for Zlrafd-u-Ebty which she has had placed. [facility]. Because of insurance reasons, she will be getting her treatment here at [facility]. She has had echocardiography as well. According the patient an MRI was obtained prior to neoadjuvant therapy while she was at [facility] we are requesting this prior study. She [...] showed triple negative breast cancer, ER negative, ID negative, and HER 2 -. The patient was referred to Dr. Ismael Red for Quwgas-a-Jpxr which she has had placed. [facility]. Because of insurance reasons, she will be getting her treatment here at [facility]. She has had echocardiography as well. PET/CT [...] 9 cycles --Original breast MRI obtained from [facility] from May 2021, follow-up breast MRI performed [...] preoperatively in late December. 2. 02/17/2022 at [facility], Drs. Saunders/Shantal: needle localized lumpectomy with oncoplastic [...] additional complaints except as documented [facility] - Medical History Medical History: Medical History [...] Allergies Allergy (Verified 08/06/22 13:31) Home Medications qlfshzw-hyeoidduhinoc-zfhbeaom 250 mg-250 mg-65 mg tablet (Excedrin Migraine) [...] see in consultation by Dr. Smith at [facility] in [place], [place]; however, due to insurance reasons the patient transferredcare to [facility]. In reviewing notes from her [...] do not have records from this from [facility] in [place]. I am requesting this to evaluate her [...] testing returned negative from prior physicians at [facility]. BRCA testing negative Follow-up September is cycle [...] We will review her prior MRI from [facility] in May 2021 in comparison to most [...] other significant toxicities. MRI was reviewed and [facility] tumor board with Dr. Reza and he [...] small focus of residual DCIS, ER 5%, ID 0%. Completed adjuvant radiation then we resumed [...] for coordination of care (as documented) and mctm-mm-nnja counseling of patient and/or family. Dictated By: Ashlie Arriaga APRN DD/ [id number] Signed By: <Electronically signed by PETE Arriaga> 08/21/22 1313 [facility] Work Phone: 1(296) 977-107001-20-2023 Progress note Author Kallie Chang [facility] August 07, 2022 1:00pm Note Date/Time August 06, 2022 1 :39pm [facility] [place] [id number] Hem/Onc Follow Up Note - OP Signed Patient: Tenisha Hancock MR#: [id number] : 1975 Acct:[id number] Age/Sex: 47 / F Type: REG RCR [...] hydrocortisone 20mg am/10mg pm. Will f/u with PROCEDURE WRITER next week to review symptoms. We may [...] right mastopexy on 02/17/2022 by Drs. Saunders/Drew ([facility]). Her pathology returned with no evidence of [...] Simons and has an appointment scheduled at [facility] to discuss josep flap surgery as [...] overall good. BRCA testing was done through [employer] and is negative. She does have left [...] I willdefer to his impression and recommendations. 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 This is a 46-year-old female who works at [employer] with triple negative breast cancer, referred for neoadjuvant chemotherapy. Mammogramon on April 22, 2021 showed 3 new focal masses with the largest measuring 2 cm in size in the right breast. 2 additional lesions measuring 1 cm and a second 0.9 cm were also seen. The patient was referred for biopsy. Needle biopsy showed triple negative breast cancer, ER negative, ID negative, and H ER 2 -. The patient was referred to Dr. Ismael Red for Ehhdyo-o-Fjgs which she has had placed. [facility]. Because of insurance reasons, she will be getting her treatment here at [facility]. She has had echocardiography as well. According the patient an MRI was obtained prior to neoadjuvant therapy while she was at [facility] we are requesting this prior study. She [...] showed triple negative breast cancer, ER negative, ID negative, and HER 2 -. The patient was referred to Dr. Ismael Red for Zhnvqq-l-Gnxx which she has had placed. She [facility]. Because of insurance reasons, she will be getting her treatment here at [facility]. She has had echocardiography as well. PET/CT [...] 9 cycles --Original breast MRI obtained from [facility] from May 2021, follow-up breast MRI performed [...] preoperatively in late December. 2. 02/17/2022 at [facility], Drs. Saunders/Shantal: needle localized lumpectomy with oncoplastic [...] Allergies Allergy (Verified 08/06/22 13:31) Home Medications zktxjcf-irasrqvlbzxfh-jkweljsx 250 mg-250 mg-65 mg tablet (Excedrin Migraine) [...] % (Auto) 92.9, Lymph % (Auto) 5.5, Bartholomew % (Auto) 1.4, Eos % (Auto) 0.0, Baso % (Auto) 0.2, Nucleat RBC Rel Count 0.0, Neut # (Auto) 8.7 H, Lymph # (Auto) 0.5 L, Bartholomew # (Auto) 0.1, Eos # (Auto) 0.0, [...] see in consultation by Dr. Smith at [facility] in [place], [place]; however, due to insurance reasons the patient transferredcare to [facility]. In reviewing notes from her prior physician [...] do not have records from this from [facility] in [place]. I am requesting this to evaluate her [...] testing returned negative from prior physicians at [facility]. BRCA testing negative Follow-up September is cycle [...] We will review her prior MRI from [facility] in May 2021 in comparison to most [...] other significant toxicities. MRI was reviewed and [facility] tumor board with Dr. Reza and he [...] small focus of residual DCIS, ER 5%, ID 0%. Completed adjuvant radiation then we resumed [...] with sentinel lymph node biopsy 02/17/2022 in [place]. Adjuvant radiation completed 05/04-06/16/2022. Total of 30 [...] for coordination of care (as documented) and kdyt-ob-apng counseling of patient and/or family. Dictated By: Kallie Chang MD DD/ [id number] Signed By: <Electronically signed by MD Kallie Chang> 08/07/[address] [facility] Work Phone: 1(346) 868-547301-06-2023 Progress note Author Kallie Chang [facility] July 24, 2022 11:26am Note Date/Time July 23, 2022 1: 43pm [facility] [place] [address] Hem/Onc Follow Up Note - OP Signed Patient: Tenisha Hancock MR#: [id number] : 1975 Acct:[id number] Age/Sex: 47 / F Type: REG RCR [...] hydrocortisone 20mg am/10mg pm. Will f/u with PROCEDURE WRITER next week to review symptoms. We may [...] right mastopexy on 02/17/2022 [address] Drs. Saunders/Drew ([facility]). Her pathology returned with no evidence of [...] Simons and has an appointment scheduled at [facility] to discuss josep flap surgery as [...] overall good. BRCA testing was done through [employer] and is negative. She does have left [...] I willdefer to his impression and recommendations. 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 This is a 46-year-old female who works at [employer] with triple negative breast cancer, referred for neoadjuvant chemotherapy. Mammogram onon April 22, 2021 showed 3 new focal masses with the largest measuring 2 cm in size in the right breast. 2 additional lesions measuring 1 cm and a second 0.9 cm were also seen. The patient was referred for biopsy. Needle biopsy showed triple negative breast cancer, ER negative, ID negative, and H ER 2 -. The patient was referred to Dr. Ismael Red for Rjsbok-o-Wnha which she has had placed. She has seen my [facility] whorecommended neoadjuvant chemotherapy and immunotherapy. Because of insurance reasons, she will be getting her treatment here at [facility]. She has had echocardiography as well. According the patient an MRI was obtained prior to neoadjuvant therapy while shewas at [facility] we are requesting this prior study. She [...] showed triple negative breast cancer, ER negative, ID negative, and HER 2 -. The patient was referred to Dr. Ismael Red for Vdmncq-s-Vdpy which she has had placed. She [facility]. Because of insurance reasons, she will be getting her treatment here at [facility]. She has had echocardiography as well. PET/CT [...] 9 cycles --Original breast MRI obtained from [facility] from May 2021, follow-up breast MRI performed [...] preoperatively in late December. 2. 02/17/2022 at [facility], Drs. Saunders/Drew: needle localized lumpectomy with oncoplastic [...] Allergies Allergy (Verified 07/23/22 13:29) Home Medications sinbjqg-ndxfnijiffqtp-ezlxhuak 250 mg-250 mg-65 mg tablet (Excedrin Migraine) [...] % (Auto) 71.8, Lymph % (Auto) 19.9, Bartholomew % (Auto) 6.3, Eos % (Auto) 1.3, Baso % (Auto) 0.7, Nucleat RBC Rel Count 0.2, Neut # (Auto) 4.6, Lymph # (Auto) 1.3, Bartholomew # (Auto) 0.4, Eos # (Auto) 0.1, [...] see in consultation by Dr. Smith at [facility] in [place], [place]; however, due to insurance reasons the patient transferredcare to [facility]. In reviewing notes from her prior physician [...] do not have records from this from [facility] in [place]. I am requesting this to evaluate her [...] testing returned negative from prior physicians at [facility]. BRCA testing negative Follow-up September is cycle [...] We will review her prior MRI from [facility] in May 2021 in comparison to most [...] other significant toxicities. MRI was reviewed and [facility] tumor board with Dr. Reza and he [...] with sentinel lymph node biopsy 02/17/2022 in [place]. Adjuvant radiation completed 05/04-06/16/2022. Total of 30 [...] for coordination of care (as documented) and pcpa-sh-sfyl counseling of patient and/or family. Dictated By: Kallie Chang MD DD/ 1342 Signed By: <Electronically signed by MD Kallie Chang> 07/24/22 1126 [facility] Work Phone: 1([phone]) 209-713212-28-2022 Progress note Author Stacie Thomas [facility] July 15, 2022 1:57pm Note Date/Time July 15, 2022 9:31am [facility] [place] [address] Rad Onc Follow Up Note - OP Signed Patient: Tenisha Hancock MR#: [id number] : 1975 Acct:[id number] Age/Sex: 47 / F Type: REG RCR [...] 0 out of 5 lymph nodes involved. [id number]. In review of her operative note as [...] ductal carcinoma, 9 mm, provisional grade 3, ER/ID negative and HER2 negative. Per the available notes her BRCA testing was done through [employer] and was negative. Also appears the right breast mass was palpable in the lower mid quadrant of the breast. [facility] and [facility]. Due to insurance reasons she received her systemic therapy here at [facility]. PET/CT was denied by insurance. CT scan of the chest abdomen pelvis on July 16, 2021 was negative for metastatic disease. Her clinical stage at presentation was cT2N0. June 11, 2021 patient did undergo an MRI in [place]. I do not have that report available [...] 0 out of 5 lymph nodes negative. [id number]. Pathology was negative for LVSI. Of note [...] <Electronically signed by Stacie Thomas MD> 07/15/[address] [facility] Work Phone: 1([phone]) 766-855312-02-2022 Progress note Author Kallie Chang [facility] June 19, 2022 9:06am Note Date/Time June 18, 2022 1 0:26am [place] [address] Hem/Onc Follow Up Note - OP Signed Patient: Tenisha Hancock MR#: [id number] : 1975 Acct:[id number] Age/Sex: 47 / F Type: REG RCR [...] hydrocortisone 20mg am/10mg pm. Will f/u with PROCEDURE WRITER next week to review symptoms. We may [...] right mastopexy on 02/17/20[address] Drs. Saunders/Drew ([facility]). Her pathology returned with no evidence of [...] Simons and has an appointment scheduled at [facility] to discuss josep flap surgery as [...] overall good. BRCA testing was done through [employer] and is negative. She does have left [...] I willdefer to his impression and recommendations. 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 This is a 46-year-old female who works at [employer] with triple negative breast cancer, referred for neoadjuvant chemotherapy. Mammogramon on April 22, 2021 showed 3 new focal masses with the largest measuring 2 cm in size in the right breast. 2 additional lesions measuring 1 cm and a second 0.9 cm were also seen. The patient was referred for biopsy. Needle biopsy showed triple negative breast cancer, ER negative, ID negative, and H ER 2 -. The patient was referred to Dr. Ismael Red for Sluhrk-g-Oroy which she has had placed. She has seen my colleague Dr. Smith at the [facility] recommended neoadjuvant chemotherapy and immunotherapy. Because of insurance reasons, she will be getting her treatment here at [facility]. She has had echocardiography as well. According the patient an MRI was obtained prior to neoadjuvant therapy while she was at [facility] we are requesting this prior study. She [...] showed triple negative breast cancer, ER negative, ID negative, and HER 2 -. The patient was referred to Dr. Ismael Red for Mbghlt-v-Cltr which she has had placed. She has seen my colleague Dr. Smith at the [facility] recommended neoadjuvant chemotherapy and immunotherapy. Because of insurance reasons, she will be getting her treatment here at [facility]. She has had echocardiography as well. PET/CT [...] 9 cycles --Original breast MRI obtained from [facility] from May 2021, follow-up breast MRI performed [...] preoperatively in late December. 2. 02/17/2022 at [facility], Drs. Saunders/Drew: needle localized lumpectomy with oncoplastic [...] Allergies Allergy (Verified 03/12/22 08:56) Home Medications ysawyws-fcusnyrqvsrpa-dbtogwlb 250 mg-250 mg-65 mg tablet (Excedrin Migraine) [...] % (Auto) 69.1, Lymph % (Auto) 17.2, Bartholomew % (Auto) 10.3, Eos % (Auto) 2.7, Baso % (Auto) 0.7, Nucleat RBC Rel Count 0.0, Neut # (Auto) 3.5, Lymph # (Auto) 0.9 L, Bartholomew # (Auto) 0.5, Eos # (Auto) 0.1, [...] see in consultation by Dr. Smith at [facility] in [place], [place]; however, due to insurance reasons the patient transferredcare to [facility]. In reviewing notes from her prior physician [...] do not have records from this from [facility] in [place]. I am requesting this to evaluate her [...] testing returned negative from prior physicians at [facility]. BRCA testing negative Follow-up September is cycle [...] We will review her prior MRI from [facility] in May 2021 in comparison to most [...] other significant toxicities. MRI was reviewed and [facility] tumor board with Dr. Reza and [...] with sentinel lymph node biopsy 02/17/2022 in [place]. Adjuvant radiation completed 05/04-06/16/2022. Total of 30 [...] giving hydrocortisone for symptom management. Reassess by PROCEDURE WRITER for tolerance of therapy in 1 week. Good pathologicresponse with DCIS only on pathology Coordination of Care & Counseling Time: Greater than 50% of time spent with patient was for coordination of care (as documented) and pwji-oq-ibyb counseling of patient and/or family. Dictated By: Kallie Chang MD DD/ 1026 Signed By: <Electronically signed by MD Kallie Chang> 06/19/[address] [facility] Work Phone: 1([phone]) 406-654309-30-2022 Progress note Author Stacie Thomas [facility] April 17, 2022 9:21am Note Date/Time April 16, 2022 9:02am [facility] [place] [address] Rad Onc Follow Up Note - OP Signed with Addenda Patient: Tenisha Hancock MR#: [id number] : 1975 Acct:[id number] Age/Sex: 47 / F Type: REG RCR [...] 0 out of 5 lymph nodes involved. [id number]. In review of her operative note as [...] ductal carcinoma, 9 mm, provisional grade 3, ER/ID negative and HER2 negative. Per the available notes her BRCA testing was done through [employer] and was negative. Also appears the right breast mass was palpable in the lower mid quadrant of the breast. [facility] and immunotherapy. Due to insurance reasons she received her systemic therapy here at [facility]. PET/CT was denied by insurance. CT scan of the chest abdomen pelvis on July 16, 2021 was negative for metastatic disease. Her clinical stage at presentation was cT2N0. June 11, 2021 patient did undergo an MRI in [place]. I do not have that report available [...] 0 out of 5 lymph nodes negative. shSddQ8Hx. Pathology was negative for LVSI. Of note [...] signed by Stacie Thomas MD> 04/16/[address] [facility] Work Phone: [phone]) 620-509709-13-2022 NotePROCEDURE: XR GI UPPER AIR KUB DUAL [...] Electronically authenticated by: BARBER VASQUEZ Date: 2022 14:36[facility]09-13-2022 NotePROCEDURE: XR GI UPPER AIR KUB [...] Electronically authenticated by: BARBER VASQUEZ Date: 2022 14:36[facility]09-01-2022 Consult note Author Stacie Thomas [facility] March 19, 2022 10:56am Note Date/Time March 18, 2022 3: [address] [place] [address] [place] [address] Rad Onc Consult Note - OP Signed Patient: Tenisha Hancock MR#: [id number] : 1975 Acct:[id number] Age/Sex: 46 / F Type: REG RCR [...] 0 out of 5 lymph nodes involved. pBlxI2Te. In review of her operative note as [...] ductal carcinoma, 9 mm, provisional grade 3, ER/ID negative and HER2 negative. Per the available notes her BRCA testing was done through [employer] and was negative. Also appears the right breast mass was palpable in the lower mid quadrant of the breast. [facility]. Due to insurance reasons she received her systemic therapy here at [facility]. PET/CT was denied by insurance. CT scan of the chest abdomen pelvis on July 16, 2021 was negative for metastatic disease. Her clinical stage at presentation was cT2N0. June 11, 2021 patient did undergo an MRI in [place]. I do not have that report available [...] 0 out of 5 lymph nodes negative. tuBhqB6Xh. Pathology was negative for LVSI. Of note [...] no other breast related complaints. [facility] - Medical History Medical History: Medical History [...] Allergies Allergy (Verified 03/12/22 08:56) Home Medications yaluqed-gryhehnkngvqi-pkbyuifd 250 mg-250 mg-65 mg tablet (Excedrin Migraine) [...] signed by Stacie Thomas MD> 03/19/[address] [facility] Work Phone: 1([phone]) 185-917008-31-2022 Consult note Author Stacie Thomas [facility] March 19, 2022 10:56am Note Date/Time March 18, 2022 3: 31pm [place] [address] Rad Onc Consult Note - OP Signed Patient: Tenisha Hancock MR#: [id number] : 1975 Acct:[id number] Age/Sex: 46 / F Type: REG RCR [...] 0 out of 5 lymph nodes involved. [id number]. In review of her operative note as [...] ductal carcinoma, 9 mm, provisional grade 3, ER/ID negative and HER2 negative. Per the available notes her BRCA testing was done through [employer] and was negative. Also appears the right breast mass was palpable in the lower mid quadrant of the breast. [facility]. Due to insurance reasons she received her systemic therapy here at [facility]. PET/CT was denied by insurance. CT scan of the chest abdomen pelvis on July 16, 2021 was negative for metastatic disease. Her clinical stage at presentation was cT2N0. June 11, 2021 patient did undergo an MRI in [place]. I do not have that report available [...] 0 out of 5 lymph nodes negative. ybXgqQ2Fn. Pathology was negative for LVSI. Of note [...] no other breast related complaints. [facility] - Medical History Medical History: Medical History [...] Allergies Allergy (Verified 03/12/22 08:56) Home Medications ofkyfpb-hmgzryphdqulz-izjgghoi 250 mg-250 mg-65 mg tablet (Excedrin Migraine) [...] 13:31 Dictated By: Stacie Thomas MD DD/ [id number] Signed By: <Electronically signed by Stacie Thomas MD> 03/19/22 9262 [facility] Work Phone: 1([phone]) 891-221608-25-2022 Progress note Author Kallie Chang [facility] March 12, 2022 4:36pm Note Date/Time March 12, 2022 9: 49am [facility] at [address] [address] Hem/Onc Follow Up Note - OP Signed Patient: Tenisha Hancock MR#: [id number] : 1975 Acct:[id number] Age/Sex: 46 / F Type: REG RCR [...] right mastopexy on 02/17/2022 by Drs. Saunders/Drew ([facility]). Her pathology returned with no evidence of [...] Simons and has an appointment scheduled at [facility] to discuss josep flap surgery as [...] overall good. BRCA testing was done through [employer] and is negative. She does have left [...] I willdefer to his impression and recommendations. UNGA: This is a 46 year old female, recently diagnosed with triple negative right breast cancer; currently undergoing neoadjuvant pembrolizumab, carboplatin AUC 4 and weekly paclitaxel x6 cycles, which commenced: 07/22/2021. This is a 46-year-old female who works at [employer] with triple negative breast cancer, referred for neoadjuvant chemotherapy. Mammogramon on April 22, 2021 showed 3 new focal masses with the largest measuring 2 cm in size in the right breast. 2 additional lesions measuring 1 cm and a second 0.9 cm were also seen. The patient was referred for biopsy. Needle biopsy showed triple negative breast cancer, ER negative, ID negative, and H ER 2 -. The patient was referred to Dr. Ismael Red for Inmwhx-j-Kqcx which she has had placed. She has seen my colleague Dr. Smith at the [facility] recommended neoadjuvant chemotherapy and immunotherapy. Because of insurance reasons, she will be getting her treatment here at [facility]. She has had echocardiography as well. According the patient an MRI was obtained prior to neoadjuvant therapy while she was at [facility] we are requesting this prior study. She [...] showed triple negative breast cancer, ER negative, ID negative, and HER 2 -. The patient was referred to Dr. Ismael Red for Vfhonr-e-Jvbk which she has had placed. She has seen my colleague Dr. Smith at the [facility] recommended neoadjuvant chemotherapy and immunotherapy. Because of insurance reasons, she will be getting her treatment here at [facility]. She has had echocardiography as well. PET/CT [...] 9 cycles --Original breast MRI obtained from [facility] from May 2021, follow-up breast MRI performed [...] preoperatively in late December. 2. 02/17/2022 at [facility], Drs. Saunders/Drew: needle localized lumpectomy with oncoplastic [...] Allergies Allergy (Verified 03/12/22 08:56) Home Medications muptaqg-ajuyqfjdfvsgf-juvoyyob 250 mg-250 mg-65 mg tablet (Excedrin Migraine) [...] therapy Copies to: MD Meghana Wilson MD, [facility]~ Weight: 196 lb Performed By: ARNOLD Alexis [...] see in consultation by Dr. Smith at [facility] in [place], [place]; however, due to insurance reasons the patient transferredcare to [facility]. In reviewing notes from her prior physician [...] do not have records from this from [facility] in [place]. I am requesting this to evaluate her [...] testing returned negative from prior physicians at [facility]. BRCA testing negative Follow-up September is cycle [...] We will review her prior MRI from [facility] in May 2021 in comparison to most [...] other significant toxicities. MRI was reviewed and [facility] tumor board with Dr. Reza and he [...] small focus of residual DCIS, ER 5%, ID 0%. Referring for adjuvant radiation then we [...] for coordination of care (as documented) and orzc-lb-tjsy counseling of patient and/or family. Dictated By: Kallie Chang MD DD/ [id number] Signed By: <Electronically signed by MD Kallie Chang> 03/12/[address] [facility] Work Phone: 1(653) 859-283708-02-2022 Hospital Discharge instructions* Discharge Instructions* Nader Alicia [...] permanent changes in scar color to darker, complaint specialist or discolored. At times you may have [...] drainage Our office numbers are as follows: [place] office: documented in this encounterBON TUCS[facility] MEDICAL CENTERNewzulu [place] [facility]ITALBench[facility] Phone: 1([phone]) 283-337007-14-2022 Miscellaneous Notes* Telephone Encounter - Nat Ricketts RN - 01/29/2022 5:25 PM EDT Noticed that patient's appointment for 01/[address] Lea was cancelled Called and lmom with my name and number for her to call back if this was cancelled accidentally somehow and we would be happy to put her back on the schedule documented in this encounterSelect [facility] Miscellaneous Notes* Telephone Encounter - Nat Ricketts RN - 01/22/2022 3:42 PM EDT Spoke with patient - she is aware that we will call her 01/23 with the time to arrive for imaging prior to appt We still need her slides to be reviewed as stated below * Telephone Encounter - Saarh Lima - 01/22/2022 3:13 PM EDT Patient called back, she left detailed message on voicemail to return her call at [phone]. Thank you. * Telephone Encounter - Nat [...] 12:46 PM EDT Imaging reports rec'd reviewed: Leigh 04/2021 - R screening abnl 2.4 cm [...] I see a teaching note 06/23/[address] [facility] but limited documentation since then as to [...] EDT Noted I will check when in [place] on Wednesday. * Telephone Encounter - Alvin Alexis - 01/16/2022 1:23 PM EDT Pt calling regarding faxed info she had sent to [employer]. Pt asking if fax was received by office or if she needs to do anything else. Pt requesting call back to discuss. * Telephone Encounter - Lucinda Alvarez Ma - 01/16/2022 9:13 AM EDT I called pt to discuss where all outside workup has been, she has had studies at both [facility] and [facility]. I was able to have patient get a release and will also fax to [employer] what she hasthus far. Our office will [...] slides and reports SHANNAN documented in this encounterSelect Medical [facility]06-30-2022 NoteHNO ID: [id number] Author: Yasemin Turnergess Service: ? Author Type: ? Type: Progress Notes Filed: 01/15/2022 4:35 PM Note Text: DATE OF PHOTOS: 01/15/2022 Body Part: Breasts and Abdomen Yasemin Bernal January 15, 2022 4:35 [facility]06-29-2022 NoteHNO ID: [id number] Author: Fahad Russell MD Service: ? Author Type: Physician Type: Progress Notes Filed: 01/27/2022 4:45 PM Note Text: BREAST RECONSTRUCTION EVALUATION CC: Tensiha Hancock is a 46 year old female that presents today for breast reconstruction evaluation. 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 Dr. Reza in [place] is her breast surgeon. 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 Back Exam: no scar; latissimus dorsi muscle function appears to be intact Abdominal Exam: soft, non-tender, obese and protuberant, BS+, non-distended, lap samreen Breast Exam: Asymmetry: Minimal Axillary Lymphadenopathy: no Scars: None Ptosis: R: Grade III L: Grade III Medially displaced nipple: None Assessment: Patient is a candidate for tissue medical authorization specialist Photos taken today Plan: An extensive discussion was undertaken with the patient detailing the risks, benefits and alternatives to tissue medical authorization specialist. Tenisha Hancock was given supplemental information on [...] Past Histories independently gathered by the clinical system support specialist and the remaining scribed note accurately describes my personal service to the patient. patient's condition reviewed and examined ? plan and options of management, complexity, risk benefit limitation potential complication, success /failure of management, expected result and recovery discussed ? I spent 30 minutes in the visit, with more than 50% of the total lldw-vj-vkev time of the visit in counseling / coordination of care. ? [facility] History of Present illness Narrative* Fahad Russell MD - 01/14/2022 4:48 PM EDT BREAST RECONSTRUCTION EVALUATION CC: Tenisha Hancock is a 46 year old female that presents today for breast reconstruction evaluation. 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 in [place] is her breast surgeon. 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 Back Exam: no scar; latissimus dorsi muscle function appears to be intact Abdominal Exam: soft, non-tender, obese and protuberant, BS+, non-distended, lap samreen Breast Exam: Asymmetry: Minimal Axillary Lymphadenopathy: no Scars: None Ptosis: R: Grade III L: Grade III Medially displaced nipple: None Assessment: Patient is a candidate for tissue medical authorization specialist Photos taken today Plan: An extensive discussion was undertaken with the patient detailing the risks, benefits and alternatives to tissue medical authorization specialist. Tenisha Hancock was given supplemental information on [...] Past Histories independently gathered by the clinical system support specialist and the remaining scribed note accurately describes my personal service to the patient. patient's condition reviewed and examined plan and options of management, complexity, risk benefit limitation potential complication, success/failure of management, expected result and recovery discussed I spent 30 minutes in the visit, with more than 50% of the total ikgh-ow-bqzo time of the visit in counseling / coordination of care. Fahad Russell MD documented in this encounterSelect Medical [facility] [place]06-08-2022 Progress note Author Ashlie WihppleGrand Lake Joint [facility] December 24, 2021 8:46pm Note Date/Time December 24, 2021 3:07p kaitlin [facility] [place] [address] Hem/Onc Follow Up Note - OP Signed Patient: Tenisha Hancock MR#: [id number] : 1975 Acct:[id number] Age/Sex: 46 / F Type: REG RCR Copies to: MD Uriel Wilson DO Kim E Knight, MD~ Subjective Date/Time of Service: Date of Service: 12/24/2021 Time of Service: 15:07 Chief Complaint: Patient is here for a 3 week follow up [facility] labs for review. Has multiple [...] Simons and has an appointment scheduled at [facility] to discuss josep flap surgery as [...] overall good. BRCA testing was done through [employer] and is negative. She does have left [...] I willdefer to his impression and recommendations. 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 This is a 46-year-old female who works at [employer] with triple negative breast cancer, referred for neoadjuvant chemotherapy. Mammogramon on April 22, 2021 showed 3 new focal masses with the largest measuring 2 cm in size in the right breast. 2 additional lesions measuring 1 cm and a second 0.9 cm were also seen. The patient was referred for biopsy. Needle biopsy showed triple negative breast cancer, ER negative, ID negative, and H ER 2 -. The patient was referred to Dr. Ismael Red for Ckyspd-n-Csyx which she has had placed. [facility]. Because of insurance reasons, she will be getting her treatment here at [facility]. She has had echocardiography as well. According the patient an MRI was obtained prior to neoadjuvant therapy while she was at [facility] we are requesting this prior study. She [...] showed triple negative breast cancer, ER negative, ID negative, and HER 2 -. The patient was referred to Dr. Ismael Red for Uworaz-w-Ppud which she has had placed. [facility]. Because of insurance reasons, she will be getting her treatment here at [facility]. She has had echocardiography as well. PET/CT [...] 9 cycles --Original breast MRI obtained from [facility] from May 2021, follow-up breast MRI performed [...] (Last Reviewed 12/03/21 @ 14:14 by Kallie Chagn MD) Brother Lung cancer Father Cancer Mother COPD (chronic obstructive pulmonary disease) - Social History Smoking Status: Former smoker Tobacco Type: cigarettes Substance Use Type: None Home Medications & Allergies Allergies No Known Allergies Allergy (Verified 12/03/21 13:51) Home Medications yempezy-zhlhehlbnlgxh-ukatedmm 250 mg-250 mg-65 mg tablet (Excedrin Migraine) [...] see in consultation by Dr. Smith at [facility] in [place], [place]; however, due to insurance reasons the patient transferredcare to [facility]. In reviewing notes from her prior physician [...] do not have records from this from [facility] in [place]. I am requesting this to evaluate her [...] testing returned negative from prior physicians at [facility]. BRCA testing negative Follow-up September is cycle [...] We will review her prior MRI from [facility] in May 2021 in comparison to most [...] other significant toxicities. MRI was reviewed and [facility] tumor board with Dr. Reza and he [...] for coordination of care (as documented) and uste-ae-ruzh counseling of patient and/or family. Dictated By: Ashlie Arriaga APRN DD/ 1507 Signed By: <Electronically signed by PETE Arriaga> 12/24/212045 [facility] Work Phone: 1(839) 864-115605-18-2022 Progress note Author Kallie Chang [facility] December 03, 2021 2:19pm Note Date/Time December 03, 2021 2:02p [facility] [place] [id number] Hem/Onc Follow Up Note - OP Signed Patient: Tenisha Hancock MR#: [id number] : 1975 Acct:[id number] Age/Sex: 46 / F Type: REG RCR [...] overall good. BRCA testing was done through [employer] and is negative. She does have left [...] I willdefer to his impression and recommendations. 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 This is a 46-year-old female who works at [employer] with triple negative breast cancer, referred for neoadjuvant chemotherapy. Mammogramon on April 22, 2021 showed 3 new focal masses with the largest measuring 2 cm in size in the right breast. 2 additional lesions measuring 1 cm and a second 0.9 cm were also seen. The patient was referred for biopsy. Needle biopsy showed triple negative breast cancer, ER negative, ID negative, and H ER 2 -. The patient was referred to Dr. Ismael Red for Cnymlq-g-Fkcs which she has had placed. She has seen my colleague Dr. Smith at the [facility] recommended neoadjuvant chemotherapy and immunotherapy. Because of insurance reasons, she will be getting her treatment here at [facility]. She has had echocardiography as well. According the patient an MRI was obtained prior to neoadjuvant therapy while she was at [facility] we are requesting this prior study. She [...] showed triple negative breast cancer, ER negative, ID negative, and HER 2 -. The patient was referred to Dr. Ismael Red for Reewmj-f-Dvct which she has had placed. She has seen my colleague Dr. Smith at the [facility] recommended neoadjuvant chemotherapy and immunotherapy. Because of insurance reasons, she will be getting her treatment here at [facility]. She has had echocardiography as well. PET/CT [...] 9 cycles --Original breast MRI obtained from [facility] from May 2021, follow-up breast MRI performed [...] Allergies Allergy (Verified 12/03/21 13:51) Home Medications ediucyx-iaxdrxghqbcrq-bvkqrnce 250 mg-250 mg-65 mg tablet (Excedrin Migraine) [...] Left breast without masses, left upper chest Sywvrh-t-Upex in place and nontender. No axillary fullness [...] % (Auto) 80.1, Lymph % (Auto) 16.3, Bartholomew % (Auto) 2.6, Eos % (Auto) 0.5, Baso % (Auto) 0.5, Neut # (Auto) 6.9, Lymph # (Auto) 1.4, Bartholomew # (Auto) 0.2, Eos # (Auto) 0.0, Baso # (Auto) 0.0, Nucleated RBC % (auto) 0.1, Toxic Granulation Slight, Dohle Bodies Slight, Platelet Estimate Normal, Plt Morphology Comment Normal, RBC Morphology N/A, Macrocytosis Slight, Tear Drop Cells Slight 11/25/21 14:45: PHA Creatinine Clear 105.09, Sodium 137, Potassium 4.2, Eovagnws337, Carbon Dioxide 22.6, BUN 14, Creatinine 0.73, [...] % (Auto) 71.5, Lymph % (Auto) 19.6, Bartholomew % (Auto) 7.6, Eos % (Auto) 0.4, Baso % (Auto) 0.9, Neut # (Auto) 6.2, Lymph # (Auto) 1.7, Bartholomew # (Auto) 0.7, Eos # (Auto) 0.0, [...] see in consultation by Dr. Smith at [facility] in [place], [place]; however, due to insurance reasons the patient transferredcare to [facility]. In reviewing notes from her prior physician [...] do not have records from this from [facility] in [place]. I am requesting this to evaluate her [...] testing returned negative from prior physicians at [facility]. BRCA testing negative Follow-up September is cycle [...] We will review her prior MRI from [facility] in May 2021 in comparison to most [...] other significant toxicities. MRI was reviewed and [facility] tumor board with Dr. Reza and he [...] metastatic cancer. Previously referred to Dr. Jameson Caslte for his recommendations. (4) Encounter for chemotherapy [...] for coordination of care (as documented) and fcwe-gy-zahv counseling of patient and/or family. Dictated By: Kallie Chang MD DD/ 1401 Signed By: <Electronically signed by MD Kallie Chang> 12/03/21 1419 [facility] Work Phone: 1([phone]) 570-146004-28-2022 Progress note Author Kallie Chang [facility] November 13, 2021 3:34pm Note Date/Time November 12, 2021 3:0 7pm [facility] at [address] [address] Hem/Onc Follow Up Note - OP Signed Patient: Tenisha Hancock MR#: [id number] : 1975 Acct:[id number] Age/Sex: 46 / F Type: REG RCR [...] overall good. BRCA testing was done through [employer] and is negative. She does have left [...] I willdefer to his impression and recommendations. 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 This is a 46-year-old female who works at [employer] with triple negative breast cancer, referred for neoadjuvant chemotherapy. Mammogramon on April 22, 2021 showed 3 new focal masses with the largest measuring 2 cm in size in the right breast. 2 additional lesions measuring 1 cm and a second 0.9 cm were also seen. The patient was referred for biopsy. Needle biopsy showed triple negative breast cancer, ER negative, ID negative, and H ER 2 -. The patient was referred to Dr. Ismael Red for Vsmesy-y-Jttf which she has had placed. She [facility]. Because of insurance reasons, she will be getting her treatment here at [facility]. She has had echocardiography as well. According the patient an MRI was obtained prior to neoadjuvant therapy while she was at [facility] we are requesting this prior study. She [...] showed triple negative breast cancer, ER negative, ID negative, and HER 2 -. The patient was referred to Dr. Ismael Red for Mldyeq-u-Vvbb which she has had placed. She has seen my colleague Dr. Smith at the [facility] recommended neoadjuvant chemotherapy and immunotherapy. Because of insurance reasons, she will be getting her treatment here at [facility]. She has had echocardiography as well. PET/CT [...] 9 cycles --Original breast MRI obtained from [facility] from May 2021, follow-up breast MRI performed [...] Allergies Allergy (Verified 10/22/21 10:19) Home Medications jxtqfgg-kfpwvuejduakc-sjhbxtza 250 mg-250 mg-65 mg tablet (Excedrin Migraine) [...] Left breast without masses, left upper chest Dsfsqb-m-Iyla in place and nontender. No axillary fullness [...] Creatinine Clear 145.60, Sodium 136, Potassium 3.6, Rkxavewr265, Carbon Dioxide 23.3, BUN 7 L, Creatinine [...] see in consultation by Dr. Smith at [facility] in [place], [place]; however, due to insurance reasons the patient transferredcare to [facility]. In reviewing notes from her [...] do not have records from this from [facility] in [place]. I am requesting this to evaluate her [...] testing returned negative from prior physicians at [facility]. BRCA testing negative Follow-up September is cycle [...] We will review her prior MRI from [facility] in May 2021 in comparison to most [...] other significant toxicities. MRI was reviewed and [facility] tumor board with Dr. Reza and he [...] for coordination of care (as documented) and idin-ro-qrrj counseling of patient and/or family. Dictated By: Kallie Chang MD DD/ 1507 Signed By: <Electronically signed by MD Kallie Chang> 11/13/21 1534 [facility] Work Phone: 1(160) 197-985704-06-2022 Progress note Author Kallie Chang [facility] October 22, 2021 4:22pm Note Date/Time October 22, 2021 10:2 8am [facility] [place] [address] Hem/Onc Follow Up Note - OP Signed Patient: Tenisha Hancock MR#: [id number] : 1975 Acct:[id number] Age/Sex: 46 / F Type: REG RCR [...] overall good. BRCA testing was done through [employer] and is negative. She does have left [...] I willdefer to his impression and recommendations. 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 This is a 46-year-old female who works at [employer] with triple negative breast cancer, referred for neoadjuvant chemotherapy. Mammogramon on April 22, 2021 showed 3 new focal masses with the largest measuring 2 cm in size in the right breast. 2 additional lesions measuring 1 cm and a second 0.9 cm were also seen. The patient was referred for biopsy. Needle biopsy showed triple negative breast cancer, ER negative, ID negative, and H ER 2 -. The patient was referred to Dr. Ismael Red for Wbymjm-o-Envh which she has had placed. She [facility]. Because of insurance reasons, she will be getting her treatment here at [facility]. She has had echocardiography as well. According the patient an MRI was obtained prior to neoadjuvant therapy while she was at [facility] we are requesting this prior study. She [...] showed triple negative breast cancer, ER negative, ID negative, and HER 2 -. The patient was referred to Dr. Ismael Red for Iwcnnw-b-Enkc which she has had placed. She [facility]. Because of insurance reasons, she will be getting her treatment here at [facility]. She has had echocardiography as well. PET/CT [...] 9 cycles --Original breast MRI obtained from [facility] from May 2021, follow-up breast MRI performed [...] Allergies Allergy (Verified 10/22/21 10:19) Home Medications gslutzi-wfkibpfevceuq-mmxonnoo 250 mg-250 mg-65 mg tablet (Excedrin Migraine) [...] lymphadenopathy. Left breast withoutmasses, left upper chest Yamsus-b-Fkvz in place and nontender. No axillary fullness [...] H, MCHC 33.7, RDW 16.7 H, Plt Ltlzp024 L, MPV 7.1, Nucleated RBC % (auto) [...] Other Results Results/Comments: Date of Service: 10/14/21 [facility] transthoracic: monitoring for chemotherapy Interpretation [...] see in consultation by Dr. Smith at [facility] in [place], [place]; however, due to insurance reasons the patient transferredcare to [facility]. In reviewing notes from her [...] do not have records from this from [facility] in [place]. I am requesting this to evaluate her [...] testing returned negative from prior physicians at [facility]. BRCA testing negative Follow-up September is cycle [...] We will review her prior MRI from [facility] in May 2021 in comparison to most [...] other significant toxicities. MRI was reviewed and [facility] tumor board with Dr. Reza and he [...] management Moderate complexity visit for discussion and [facility] tumor board, review of MRI and echocardiogram, [...] for coordination of care (as documented) and kitp-vc-zmkl counseling of patient and/or family. Dictated By: Kallie Chang MD DD/ 1025 Signed By: <Electronically signed by MD Kallie Chang> 10/22/21 7712 [facility] Work Phone: 1(791) 656-805303-24-2022 Progress note Author Kallie Chang [facility] October 09, 2021 2:48pm Note Date/Time October 08, 2021 11: 37am [facility] at [address] [address] Hem/Onc Follow Up Note - OP Signed Patient: Tenisha Hancock MR#: [id number] : 1975 Acct:[id number] Age/Sex: 46 / F Type: REG RCR [...] overall good. BRCA testing was done through [employer] and is negative. She does have left [...] I willdefer to his impression and recommendations. 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 This is a 46-year-old female who works at [employer] with triple negative breast cancer, referred for neoadjuvant chemotherapy. Mammogramon on April 22, 2021 showed 3 new focal masses with the largest measuring 2 cm in size in the right breast. 2 additional lesions measuring 1 cm and a second 0.9 cm were also seen. The patient was referred for biopsy. Needle biopsy showed triple negative breast cancer, ER negative, ID negative, and H ER 2 -. The patient was referred to Dr. Ismael Red for Jmdejo-n-Wggn which she has had placed. She has seen my colleague Dr. Smith at the [facility] recommended neoadjuvant chemotherapy and immunotherapy. Because of insurance reasons, she will be getting her treatment here at [facility]. She has had echocardiography as well. According the patient an MRI was obtained prior to neoadjuvant therapy while she was at [facility] we are requesting this prior study. She [...] showed triple negative breast cancer, ER negative, ID negative, and HER 2 -. The patient was referred to Dr. Ismael Red for Tpwbwi-w-Brtb which she has had placed. She has seen my colleague Dr. Smith at the [facility] recommended neoadjuvant chemotherapy and immunotherapy. Because of insurance reasons, she will be getting her treatment here at [facility]. She has had echocardiography as well. PET/CT [...] 9 cycles --Original breast MRI obtained from [facility] from May 2021, follow-up breast MRI performed [...] PO Q6H PRN 07/03/21 [History Confirmed 10/08/21] styhsga-brpodxcfdbhtg-luuopsir 250 mg-250 mg-65 mg tablet (Excedrin Migraine) [...] Left breast without masses, left upper chest Nulull-a-Puul in place and nontender. No axillary fullness [...] Creatinine Clear 110.24, Sodium 136, Potassium 3.7, Bryeuvoz884, Carbon Dioxide 22.8, BUN 7 L, Creatinine [...] % (Auto) 65.5, Lymph % (Auto) 30.1, Bartholomew % (Auto) 3.7, Eos % (Auto) 0.4, Baso % (Auto) 0.3, Neut # (Auto) 4.0, Lymph # (Auto) 1.8, Bartholomew # (Auto) 0.2, Eos # (Auto) 0.0, [...] see in consultation by Dr. Smith at [facility] in [place], [place]; however, due to insurance reasons the patient transferredcare to [facility]. In reviewing notes from her [...] do not have records from this from [facility] in [place]. I am requesting this to evaluate her [...] testing returned negative from prior physicians at [facility]. BRCA testing negative Follow-up September is cycle [...] We will review her prior MRI from [facility] in May 2021 in comparison to most [...] for coordination of care (as documented) and gonv-ht-wirc counseling of patient and/or family. Dictated By: Kallie Chang MD DD/ 1136 Signed By: <Electronically signed by MD Kallie Chang> 10/09/21 1448 [facility] Work Phone: 1([phone]) 594-485803-09-2022 Progress note Author Kallie Chang [facility] September 24, 2021 11:25am Note Date/Time September 24, 2021 8:11 am [place] [address] Hem/Onc Follow Up Note - OP Signed Patient: Tenisha Hancock MR#: [id number] : 1975 Acct:[id number] Age/Sex: 46 / F Type: REG RCR [...] overall good. BRCA testing was done through [employer] and is negative. She does have left [...] I willdefer to his impression and recommendations. 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 This is a 46-year-old female who works at [employer] with triple negative breast cancer, referred for neoadjuvant chemotherapy. Mammogramon on April 22, 2021 showed 3 new focal masses with the largest measuring 2 cm in size in the right breast. 2 additional lesions measuring 1 cm and a second 0.9 cm were also seen. The patient was referred for biopsy. Needle biopsy showed triple negative breast cancer, ER negative, ID negative, and H ER 2 -. The patient was referred to Dr. Ismael Red for Qguqzm-i-Imkl which she has had placed. [facility]. Because of insurance reasons, she will be getting her treatment here at [facility]. She has had echocardiography as well. According the patient an MRI was obtained prior to neoadjuvant therapy while she was at [facility] we are requesting this prior study. She [...] showed triple negative breast cancer, ER negative, ID negative, and HER 2 -. The patient was referred to Dr. Ismael Red for Ffgbar-c-Nrov which she has had placed. She [facility]. Because of insurance reasons, she will be getting her treatment here at [facility]. She has had echocardiography as well. PET/CT [...] PO Q6H PRN 07/03/21 [History Confirmed 09/24/21] mrfeydu-ginexzdkshadh-jiblfyoi 250 mg-250 mg-65 mg tablet (Excedrin Migraine) [...] Left breast without masses, left upper chest Kqffnx-w-Zoyj in place and nontender. No axillary fullness [...] Impressions We will request outside MRI from [facility] from baseline. - Other Results Results/Comments: Prior notes from [facility] CT scan showed echocardiogram 06/19/2021 with ejection [...] see in consultation by Dr. Smith at [facility] in [place], [place]; however, due to insurance reasons the patient transferredcare to [facility]. In reviewing notes from her [...] do not have records from this from [facility] in [place]. I am requesting this to evaluate her [...] testing returned negative from prior physicians at [facility]. BRCA testing negative Today in follow-up September [...] for coordination of care (as documented) and rjfw-sg-focb counseling of patient and/or family. Dictated By: Kallie Chang MD DD/ 0810 Signed By: <Electronically signed by MD Kallie Chang> 09/24/[address] [facility] Work Phone: 1([phone]) 164-750302-28-2022 Evaluation note* Encounter Date Diagnosis Assessment Notes [...] investigation. Aug, Cervical spondylosis (ICD-10 - M47.812) [employer] Other 02-02-2022 Progress note Author Salbador Phoenix [facility] August 20, 2021 2:47pm Note Date/Time August 20, 2021 2 :45pm [facility] [place] [address] Hem/Onc Follow Up Note - OP Signed Patient: Tenisha Hancock MR#: [id number] : 1975 Acct:[id number] Age/Sex: 46 / F Type: REG RCR [...] overall good. BRCA testing was done through [employer] and is negative. She does have left [...] I willdefer to his impression and recommendations. UNGA: This is a 46 year old female, [...] showed triple negative breast cancer, ER negative, ID negative, and HER 2-. The patient was referred to Dr. Ismael Red for Akveqk-t-Whet which she has had placed. She [facility]. Because of insurance reasons, she will be getting her treatment here at [facility]. She has had echocardiography as well. PET/CT [...] PO Q6H PRN 07/03/21 [History Confirmed 08/20/21] uyftgyl-wvjvqokwpdluu-acdbbsrc 250 mg-250 mg-65 mg tablet (Excedrin Migraine) [...] % (Auto) 58.0, Lymph % (Auto) 36.6, Bartholomew % (Auto) 3.9, Eos % (Auto) 1.0, Baso % (Auto) 0.5, Neut # (Auto) 3.2, Lymph # (Auto) 2.0, Bartholomew # (Auto) 0.2, Eos # (Auto) 0.1, [...] was initially see in consultation by Dr. mSith at [facility] in [place], [place]; however, due to insurance reasons the patient transferredcare [facility]. She commenced neoadjuvant Carboplatin/Paclitaxel/Pembrolizumab therapy on 07/22/2021; [...] for coordination of care (as documented) and vtsi-pz-tsav counseling of patient and/or family. Dictated By: Salbador Phoenix MD DD/ 40 Signed By: <Electronically signed by MD Salbador Phoenix> 08/20/[address] [facility] Work Phone: [phone]) 892-440701-13-2022 Progress note Author Jazmin Monsivais [facility] July 31, 2021 3:54pm Note Date/Time July 31, 2021 3 :07pm [facility] at [address] [address] Hem/Onc Follow Up Note - OP Signed Patient: Tenisha Hancock MR#: [id number] : 1975 Acct:[id number] Age/Sex: 46 / F Type: REG RCR [...] showed triple negative breast cancer, ER negative, ID negative, and HER 2 -. The patient was referred to Dr. Ismael Red for Evfbol-w-Yjzq which she has had placed. She has [facility]. Because of insurance reasons, she will be getting her treatment here at [facility]. She has had echocardiography as well. PET/CT [...] review of systems is negative. [facility] - Medical History Medical History: Medical History [...] PO Q6H PRN 07/03/21 [History Confirmed 07/31/21] lkopuik-vihyxydlkunyx-fimfitkl 250 mg-250 mg-65 mg tablet (Excedrin Migraine) [...] 07/16/21 12:50 Outside Labs: Outside labs from [facility] scanned in chart; no significant cytopenias or abnormalities (WBC- 8.0; Hgb 12.0; normal platelets; Normal electrolytes; renal/hepatic fxn) Assessment and Plan (1) Breast cancer Patient is a 46-year-old female presenting with 3 discernible masses by mammography (04/22/2021) with needle biopsy confirming triple negative breast cancer. She was initially see in consultation by Dr. Smith at [facility] in [place], [place]; however, due to insurance reasons the patient transferredcare to [facility]. She commenced neoadjuvant Carboplatin/Paclitaxel/Pembrolizumab therapy on 07/22/2021; [...] scans ofthe chest/abdomen/pelvis on 07/16/2021 here at [facility]. There was no obvious evidence of distant [...] [facility] She has ongoing issues with low back [...] for coordination of care (as documented) and bunf-bh-xsew counseling of patient and/or family. Dictated By: Jazmin Monsivais APRN DD/ 1454 Signed By: <Electronically signed by PETE Monsivais> 07/31/[address] [facility] Work Phone: 1([phone]) 830-788601-13-2022 Hospital Discharge instructionsAmbulatory Orders* Imaging on Disk Time Frame: 1 Day, Location: Determined By Patient * RISE Order Time Frame: 07/31/21, Location: Determined By Patient [facility] Work Phone: [phone]) 617-640112-28-2021 Progress note Author Salbador Phoenix [facility] July 15, 2021 1:32pm Note Date/Time July 15, 2021 1:28pm [facility] at [address] [address] Hem/Onc Follow Up Note - OP Signed Patient: Tenisha Hancock MR#: [id number] : 1975 Acct:[id number] Age/Sex: 46 / F Type: REG RCR [...] is a 46-year-old female who works at [employer] who was referred here with triple negative [...] showed triple negative breast cancer, ER negative, ID negative, and H ER 2 -. The patient was referred to Dr. Ismael Red for Mmvhte-u-Jnzz which she has had placed. She has seen my colleague Dr. Smith at the [facility] who recommended neoadjuvant chemotherapy and immunotherapy. Because of insurance reasons, she will be getting her treatment here at [facility]. She has had echocardiography as well. She [...] PO Q6H PRN 07/03/21 [History Confirmed 07/15/21] hvxqrfn-pdlkeslhmipey-plnhlrui 250 mg-250 mg-65 mg tablet (Excedrin Migraine) [...] % (Auto) 68.7, Lymph % (Auto) 25.5, Bartholomew % (Auto) 3.9, Eos % (Auto) 1.0, Baso % (Auto) 0.9, Neut # (Auto) 6.9, Lymph # (Auto) 2.6, Bartholomew # (Auto) 0.4, Eos# (Auto) 0.1, Baso [...] July 29, 2021. The patient has her Dqtvov-j-Vbvn and and has had echocardiography. We will [...] for coordination of care (as documented) and leef-gu-qpcb counseling of patient and/or family. Dictated By: Salbador Phoenix MD DD/ 1327 Signed By: <Electronically signed by MD Salbador Phoenix> 07/15/21 1332 [facility] Work Phone: [phone]) 318-932112-21-2021 Consult note Author Salbador Phoenix [facility] July 08, 2021 3:14pm Note Date/Time July 08, 2021 2:58pm [facility] [place] [id number] Hem/Onc Consult Note - OP Signed Patient: Tenisha Hancock MR#: [id number] : 1975 Acct:[id number] Age/Sex: 46 / F Type: REG RCR Copies to: Chidi Hurd MD~ HPI Date/Time of Service: Date of Service: 07/08/2021 Time of Service: 14:57 Referring Provider/PCP: Referring Provider: Eliel Hurd MD PCP: Eliel Hurd MD - History of Present Illness Reason for Consultation: Triple negative breast cancer Chief Complaint: Patient is here today for a transfer of care from Dr eTlly Smith for breast cancern HPI: This is a 46-year-old female who works at [employer] who is referred here with triple negative [...] showed triple negative breast cancer, ER negative, ID negative, and H ER 2 -. The patient was referred to Dr. Ismael Red for Otrxdm-j-Flxc which she has had placed. She has seen my colleague Dr. Smith at the [facility] who recommended neoadjuvant chemotherapy and immunotherapy. Because of insurance reasons, she will be getting her treatment here at [facility]. She has had echocardiography as well. She does have a palpable breast mass. It is in the lower mid quadrant of the right breast. [facility] - Medical History Medical History: Medical History [...] PO Q6H PRN 07/03/21 [History Confirmed 07/08/21] smgjwbx-cwbaqchwgplsh-hwkpberm 250 mg-250 mg-65 mg tablet (Excedrin Migraine) [...] cancer. She has seen medical oncology at [facility] who has recommended neoadjuvant chemotherapy and immunotherapy. [...] at this time. The patient has her Fntaqg-c-Nfbq and and has had echocardiography. We will refer her for chemotherapy education and literature. She was requesting PET scan which is reasonable. I will also recommend genetic testing which can be done through [employer]. Our treatment plan will be pembrolizumab every [...] for coordination of care (as documented) and ties-rq-mkaj counseling of patient and/or family. Dictated By: Salbador Phoenix MD DD/ 1457 Signed By: <Electronically signed by MD Salbador Phoenix> 07/08/21 1038 [facility] Work Phone: Consult note Author [facility] March 19, 2022 10:56am Note Date/Time March 18, 2022 3: 31pm [facility] [place] [address] Rad Onc Consult Note - OP Signed Patient: Tenisha Hancock MR#: [id number] : 1975 Acct:[id number] Age/Sex: 46 / F Type: REG RCR [...] 0 out of 5 lymph nodes involved. [id number]. In review of her operative note as [...] ductal carcinoma, 9 mm, provisional grade 3, ER/ID negative and HER2 negative. Per the available notes her BRCA testing was done through [employer] and was negative. Also appears the right breast mass was palpable in the lower mid quadrant of the breast. [facility]. Due to insurance reasons she received her systemic therapy here at [facility]. PET/CT was denied by insurance. CT scan of the chest abdomen pelvis on July 16, 2021 was negative for metastatic disease. Her clinical stage at presentation was cT2N0. June 11, 2021 patient did undergo an MRI in [place]. I do not have that report available [...] 0 out of 5 lymph nodes negative. [id number]. Pathology was negative for LVSI. Of note [...] no other breast related complaints. [facility] - Medical History Medical History: Medical History [...] Allergies Allergy (Verified 03/12/22 08:56) Home Medications yjxklaf-bftxukpxtoolc-klhjlxzx 250 mg-250 mg-65 mg tablet (Excedrin Migraine) [...] signed by Stacie Thomas MD> 03/19/[address] [facility] [employer] Work Phone: Evaluation note* Diagnosis History of breast cancer- Primary Personal history of malignant neoplasm of breast Breast asymmetry following reconstructive surgery Disproportion of reconstructed breast Malignant neoplasm of right female breast, unspecified estrogen receptor status, unspecified site of breast (HCC)- Primary [facility] Diagnosis Malignant neoplasm of right female breast, unspecified estrogen receptor status, unspecified site of breast (HCC) documented in this encounter [employer] Phone: evaluation note* Diagnosis Status post breast reconstruction- Primary Breast replaced by other means Status post breast lumpectomy Other postprocedural status Abnormal mammogram Abnormal mammogram, unspecified Malignant neoplasm of right female breast, unspecified estrogen receptor status, unspecified site of breast (HCC) documented in this encounter [employer] Phone: evalctmjhi note* Diagnosis Malignant neoplasm of right female breast, unspecified estrogen receptor status, unspecified site of breast (HCC) documented in this encounter [employer] Phone: evalmlraqr note* Diagnosis Onset Date Resolution Status Breast cancer chronic Encounter for antineoplastic immunotherapy chronic Encounter for chemotherapy management chronic 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 Chemotherapy-induced neutropenia resolved [facility] [employer] Work Phone: Evaluation note* Diagnosis Onset Date Resolution Status 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 acute Arthralgia of multiple sites, bilateral acute Encounter for coordination of complex care acute Breast cancer chronic Encounter for antineoplastic immunotherapy chronic Encounter for chemotherapy management chronic 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 Chemotherapy-induced neutropenia resolved [facility] [employer] Work Phone: Evaluation note* Diagnosis Onset Date Resolution Status 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 chronic Arthralgia of multiple sites, bilateral chronic Breast cancer chronic Encounter for antineoplastic immunotherapy chronic Encounter for chemotherapy management chronic Encounter for coordination of complex care chronic 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 Chemotherapy-induced neutropenia resolved [facility] Work Phone: Evaluation note* Diagnosis Onset Date Resolution Status 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 chronic Breast cancer chronic Encounter for antineoplastic immunotherapy chronic Encounter for chemotherapy management chronic Encounter for coordination of complex care chronic 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 Arthralgia of multiple sites, bilateral resolved Chemotherapy-induced neutropenia resolved [facility] Work Phone: Evaluation note* Diagnosis Onset Date Resolution Status Hypothyroidism (acquired) ac jania 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 chronic Breast cancer chronic Encounter for antineoplastic immunotherapy chronic Encounter for chemotherapy management chronic Encounter for coordination of complex care chronic 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 Arthralgia of multiple sites, bilateral resolved Chemotherapy-induced neutropenia resolved [facility] Work Phone: Evaluation noteNo assessment information available [facility] Work Phone: Hisayge general Narrative - Reported* Type Description Date Medical History GERD (gastroesophageal reflux di sease) Medical History Depression Medical History Breast Cancer Surgical History gallbladder Surgical History Foot Surgery Hospitalization History gallbladder [facility] Work Phone: [facility] Work Phone: [facility] Work Phone: Hospital Discharge instructionsAmbulatory Orders* RISE Order Time Frame: 1 Day, Location: Determined By Patient [facility] Work Phone: Progress note Author Kallie Chang [facility] March 12, 2022 4:36pm Note Date/Time March 12, 2022 9: 49am [facility] at [address] [address] Hem/Onc Follow Up Note - OP Signed Patient: Tenisha Hancock MR#: [id number] : 1975 Acct:[id number] Age/Sex: 46 / F Type: REG RCR [...] right mastopexy on 02/17/2022 [address] Drs. Saunders/Drew ([facility]). Her pathology returned with no evidence of [...] Simons and has an appointment scheduled at [facility] to discuss josep flap surgery as [...] overall good. BRCA testing was done through [employer] and is negative. She does have left [...] I willdefer to his impression and recommendations. UNGA: This is a 46 year old female, recently diagnosed with triple negative right breast cancer; currently undergoing neoadjuvant pembrolizumab, carboplatin AUC 4 and weekly paclitaxel x6 cycles, which commenced: 07/22/2021. This is a 46-year-old female who works at [employer] with triple negative breast cancer, referred for neoadjuvant chemotherapy. Mammogramon on April 22, 2021 showed 3 new focal masses with the largest measuring 2 cm in size in the right breast. 2 additional lesions measuring 1 cm and a second 0.9 cm were also seen. The patient was referred for biopsy. Needle biopsy showed triple negative breast cancer, ER negative, ID negative, and H ER 2 -. The patient was referred to Dr. Ismael Red for Lahvvl-d-Zlex which she has had placed. She has seen my colleague Dr. Smith at the [facility] recommended neoadjuvant chemotherapy and immunotherapy. Because of insurance reasons, she will be getting her treatment here at [facility]. She has had echocardiography as well. According the patient an MRI was obtained prior to neoadjuvant therapy while she was at [facility] we are requesting this prior study. She [...] showed triple negative breast cancer, ER negative, ID negative, and HER 2 -. The patient was referred to Dr. Ismael Red for Ejnwrm-t-Tufq which she has had placed. She has seen my colleague Dr. Smith at the [facility] recommended neoadjuvant chemotherapy and immunotherapy. Because of insurance reasons, she will be getting her treatment here at [facility]. She has had echocardiography as well. PET/CT [...] 9 cycles --Original breast MRI obtained from [facility] from May 2021, follow-up breast MRI performed [...] preoperatively in late December. 2. 02/17/2022 at [facility], Drs. Saunders/Djohan: needle localized lumpectomy with oncoplastic [...] Allergies Allergy (Verified 03/12/22 08:56) Home Medications rxfegzo-avfrtcilpxjvh-yukxtpkf 250 mg-250 mg-65 mg tablet (Excedrin Migraine) [...] see in consultation by Dr. Smith at [facility] in [place], [place]; however, due to insurance reasons the patient transferredcare to [facility]. In reviewing notes from her prior physician [...] do not have records from this from [facility] in [place]. I am requesting this to evaluate her [...] testing returned negative from prior physicians at [facility]. BRCA testing negative Follow-up September is cycle [...] We will review her prior MRI from [facility] in May 2021 in comparison to most [...] other significant toxicities. MRI was reviewed and [facility] tumor board with Dr. Reza and he [...] small focus of residual DCIS, ER 5%, ID 0%. Referring for adjuvant radiation then we [...] for coordination of care (as documented) and qbwm-zd-cuwz counseling of patient and/or family. Dictated By: Kallie Chang MD DD/ [id number] Signed By: <Electronically signed by MD Kallie Chang> 03/12/[address] [facility] Work Phone: Progress note Author Kallie Chang [facility] September 18, 2022 10:28pm Note Date/Time September 18, 2022 1:44 pm [facility] [place] [address] Hem/Onc Follow Up Note - OP Signed Patient: Tenisha Hancock MR#: [id number] : 1975 Acct:[id number] Age/Sex: 47 / F Type: REG RCR [...] hydrocortisone 20mg am/10mg pm. Will f/u with PROCEDURE WRITER next week to review symptoms. We may [...] right mastopexy on 02/17/2022 by Drs. Saunders/Drew ([facility]). Her pathology returned with no evidence of [...] Simons and has an appointment scheduled at [facility] to discuss josep flap surgery as [...] overall good. BRCA testing was done through [employer] and is negative. She does have left [...] I willdefer to his impression and recommendations. 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 This is a 46-year-old female who works at [employer] with triple negative breast cancer, referred for neoadjuvant chemotherapy. Mammogramon on April 22, 2021 showed 3 new focal masses with the largest measuring 2 cm in size in the right breast. 2 additional lesions measuring 1 cm and a second 0.9 cm were also seen. The patient was referred for biopsy. Needle biopsy showed triple negative breast cancer, ER negative, ID negative, and H ER 2 -. The patient was referred to Dr. Ismael Red for Qjugjn-o-Knkb which she has had placed. [facility]. Because of insurance reasons, she will be getting her treatment here at [facility]. She has had echocardiography as well. According the patient an MRI was obtained prior to neoadjuvant therapy while she was at [facility] we are requesting this prior study. She [...] showed triple negative breast cancer, ER negative, ID negative, and HER 2 -. The patient was referred to Dr. Ismael Red for Idxdna-o-Raaq which she has had placed. She [facility]. Because of insurance reasons, she will be getting her treatment here at [facility]. She has had echocardiography as well. PET/CT [...] 9 cycles --Original breast MRI obtained from [facility] from May 2021, follow-up breast MRI performed [...] preoperatively in late December. 2. 02/17/2022 at [facility], Drs. Saunders/Shantal: needle localized lumpectomy with oncoplastic [...] environmental allergies and food allergies. [facility] - History Attestation statement: The following information [...] Allergies Allergy (Verified 09/18/22 13:38) Home Medications vioywwl-bvcgvplcujcmh-eylrdifb 250 mg-250 mg-65 mg tablet (Excedrin Migraine) [...] % (Auto) 91.1, Lymph % (Auto) 6.2, Bartholomew % (Auto) 2.3, Eos % (Auto) 0.1, Baso % (Auto) 0.3, Nucleat RBC Rel Count 0.1, Neut # (Auto) 10.4 H, Lymph # (Auto) 0.7 L, Bartholomew # (Auto) 0.3, Eos # (Auto) 0.0, [...] see in consultation by Dr. Smith at [facility] in [place], [place]; however, due to insurance reasons the patient transferredcare to [facility]. In reviewing notes from her [...] do not have records from this from [facility] in [place]. I am requesting this to evaluate her [...] testing returned negative from prior physicians at [facility] clinic. BRCA testing negative Follow-up September is [...] We will review her prior MRI from [facility] in May 2021 in comparison to most [...] other significant toxicities. MRI was reviewed and [facility] tumor board with Dr. Reza and he [...] small focus of residual DCIS, ER 5%, ID 0%. Completed adjuvant radiation then we resumed [...] with sentinel lymph node biopsy 02/17/2022 in [place]. Adjuvant radiation completed 05/04-06/16/2022. Total of 30 [...] for coordination of care (as documented) and gfku-zf-gwcv counseling of patient and/or family. Dictated By: Kallie Chang MD DD/ 1343 Signed By: <Electronically signed by MD Kallie Chang> 09/18/[address] [facility] Work Phone: Reason for visit NarrativeReferral Dr. [place] T12 [facility] [employer] [employer] Other Summary Purpose Family History No Family [...] WO CONTRAST Diana Murguia P, DO [address] [facility] [address] [place] [id number] Referral ID Status Reason Start Date Expiration Date Visits Re quested Visits Authorized [id number] Closed 02/03/2022 01/28/2023 1 1 Chief Complaint [...] or prosecute any alcohol or drug abuse patient.[facility] the event this information is protected by the Federal Confidentiality of Alcohol and Drug Abuse Patient Records regulations: The Federal rules restrict any use of the information to criminally investigate or prosecute any alcohol or drug abuse patient.[facility] the event this information is protected by the Federal Confidentiality of Alcohol and Drug Abuse Patient Records regulations: The Federal rules restrict any use of the information to criminally investigate or prosecute any alcohol or drug abuse patient.[facility] the event this information is protected by the Federal Confidentiality of Alcohol and Drug Abuse Patient Records regulations: The Federal rules restrict any use of the information to criminally investigate or prosecute any alcohol or drug abuse patient.[facility] Reason for Visit (unrecogniz ed section and content) Reason Comments Appointment Reason Comments Consult Specialty Diagnoses / Procedures Referred By Ramirez t Referred To Contact Radiology Diagnoses Malignant neoplasm of right female breast, unspecified estrogen receptor status, unspecified site of breast (HCC) Procedures MRI BREAST BILATERAL W WO CONTRAST Diana Murguai, DO [address] [place] [address] Referral ID Status Reason Start Date Expiration Date Visits Re quested Visits Authorized [id number] Closed 02/03/2022 01/28/2023 1 1 Specialty Diagnoses / Procedures Referred By Daryaac t Referred To Contact Diagnoses Malignant neoplasm of right female breast, unspecified estrogen receptor status, unspecified site of breast (HCC) Malignant neoplasm of right female breast, unspecified estrogen receptor status, unspecified site of breast (HCC) [C50.911] Procedures ID MASTECTOMY, PARTIAL ID OFFICE/OUTPT VISIT,PROCEDURE ONLY ID BREAST REDUCTION NEEDLE DIRECTED @ 800 RIGHT BREAST LUMPECTOMY WITH SENTINEL NODE BIOPSY @ 830 WITH FROZEN SECTION AND POSSIBLE AXILLARY LYMPH NODE DISSECTION ONCOPLASTIC RECONSTRUCTION RIGHT BREAST WITH JOSER INCISIONAL VAC AND PEC BLOCK Diana Murguia, DO [address] [facility] [address] [place] [address] [facility] [id number] [place] [address] Referral ID Status Reason Start Date Expiration Date Visits Re quested Visits Authorized [id number] 1 1 Specialty Diagnoses / Procedures Referred By Ramirez t Referred To Contact Diagnoses Malignant neoplasm of unspecified site of right female breast Procedures HC NM LYMPHATICS,LYMPH GLAND IMAGING [facility] Nuclear Medicine [address] [place] [address] [facility] [employer] [id number] [place] [address] Referral ID Status Reason Start Date Expiration Date Visits Re quested Visits Authorized [id number] 1 1 Care Teams (unrecognized sec tion [...] Active Kallie Chang MD Attending Provider Active Relay Tester Relationship Specialty Start Date End Date Jasbir Limon MD [facility] [place] [address] PCP - General 10/28/00 Relay Tester Relationship Specialty Start Date End Date Jasbir Limon MD [address] [place] [address] (Fax) PCP - General 10/28/00 Relay Tester Relationship Specialty Start Date End Date Jasbir Limon MD [address] [place] [address] (Fax) PCP - General 10/28/00 Relay Tester Relationship Specialty Start Date End Date Eliel Hurd [address] [place] [address] PCP - General Specialist 02/04/22 Relay Tester Relationship Specialty Start Date End Date Eliel Hurd [address] [place] [address] PCP - General Specialist 02/04/22 Relay Tester Relationship Specialty Start Date End Date Eliel Hurd [address] [place] [address] PCP - General Specialist 02/04/22 Team Status: [...] section and content) DATE CREATED AUTHOR 02/03/2022 [facility] DATE CREATED AUTHOR AUTHOR'S ORGANIZ ATION 02/21/2022 [facility] DATE CREATED AUTHOR AUTHOR'S ORGANIZ ATION 03/24/2022 [facility] DATE CREATED AUTHOR AUTHOR'S ORGANIZ ATION 12/02/2022 [facility] DATE CREATED AUTHOR AUTHOR'S ORGANIZ ATION 03/09/2023 [facility] DATE CREATED AUTHOR AUTHOR'S ORGANIZ ATION 04/20/2023 [facility] DATE CREATED AUTHOR AUTHOR'S ORGANIZ ATION [facility]/22/20[facility] Ordered Prescriptions (unrec ognized section and content) [...] 1047 (Given - Provid er: Valerie Davila [employer]ODU[employer] TEACHER - ABRASIVES SALES REPRESENTATIVE) diphenhydrAMINE (BENADRYL) injection 12.5 mg (COMPLETED) 12.5 [...] (NoRateChange - Provider: Valerie Davila APRN - ABRASIVES SALES REPRESENTATIVE)1148 (Paused - Provider: PETE Pereira CRNA - Comment: Switch to gravity)1149 (New Bag - Provider: Valerie Davila APRN - ABRASIVES SALES REPRESENTATIVE)1318 (Anesthesia Volume Adjustment - Provider: Valerie Davila APRN - ABRASIVES SALES REPRESENTATIVE)1615 (Stopped - Provider: Ashlie Baron RN) PRN [...] BE BASED ON THE PRIMARY CLINICAL RECORDS. [employer] [facility]. provides no warranty or guarantee of the accuracy or completeness of information in this document.
[2023-07-30 09:07] LABS: Basophils Percent Auto 0.6 % (0.2-2.0); Eosinophils Absolute Auto 0.2 10^3/uL (0.0-0.7); Eosinophils Percent Auto 3.2 % (0.9-7.0); Hematocrit 37.6 % (36.0-48.0); Hemoglobin 12.4 g/dL (12.0-16.0); Immature Granulocytes Abs Auto 0.01 10^3/uL (0.00-0.03); Immature Granulocytes Pct Auto 0.2 % (0.0-0.5); Lymphocytes Percent Auto 32.1 % (20.5-60.0); Monocytes Absolute Auto 0.4 10^3/uL (0.3-0.8); Monocytes Percent Auto 6.8 % (1.7-12.0); Neutrophils Absolute Auto 3.5 10^3/uL (1.4-6.5); Neutrophils Percent Auto 57.1 % (43.0-75.0); Platelet Count 240 10^3/uL (150-450); Red Cell Distribution Width 11.2 % (11.0-15.0); White Blood Count 6.2 10^3/uL (4.0-11.0)
[2023-07-30 10:08] LABS: Alanine Aminotransferase 47 U/L (14-59); Albumin Globulin Ratio 1.1; Albumin Level 3.6 g/dL (3.4-5.0); Alkaline Phosphatase 137 U/L (46-116); Anion Gap 12.6; Aspartate Amino Transferase 32 U/L (15-37); BUN Creatinine Ratio 16.4; Bilirubin Total 0.5 mg/dL (0.2-1.0); Carbon Dioxide 27.1 mmol/L (21.0-32.0); Chloride 103 mmol/L (98-107); Estimated GFR (African America >60 (>=60); Estimated GFR (Non-African Ame >60 (>=60); Globulin 3.4 g/dL; Glucose 91 mg/dL (74-106); Potassium 3.7 mmol/L (3.5-5.1); Sodium 139 mmol/L (136-145); Thyroid Stimulating Hormone 2.141 uIU/mL (0.358-3.740)
[2023-07-30 10:11] LABS: Free T4 1.05 ng/dL (0.76-1.46)
[2023-08-01 19:07] LABS: Cortisol - AM 0.2 ug/dL (6.2-19.4)
== END 2023-07-30 08:51 | disposition home or self-care (01) ==
LOC: LAB 08:52
PROVIDERS: PCP Internal Medicine; Visit Provider Internal Medicine Hematology & Oncology
DX: C50.911 Malignant neoplasm of unspecified site of right female breast (principal); M25.50 Pain in unspecified joint; M13.0 Polyarthritis, unspecified
CPT/HCPCS: 36415; 80053; 82306; 82533; 84439; 84443; 85025

== ENCOUNTER 2023-08-03 07:27 | Outpatient (RCR) | payer BC, SELFPAY | END 2023-08-03 15:00 | disposition home or self-care (01) | LOC: INF 07:27 | PROVIDERS: PCP Internal Medicine; Visit Provider Internal Medicine Hematology & Oncology | DX: C50.911 Malignant neoplasm of unspecified site of right female breast (principal); M25.50 Pain in unspecified joint; M13.0 Polyarthritis, unspecified; E03.9 Hypothyroidism, unspecified; E27.40 Unspecified adrenocortical insufficiency; E23.0 Hypopituitarism | CPT/HCPCS: G0463 ==

== ENCOUNTER 2023-08-27 10:30 | Outpatient (OUT) | payer BC, SELFPAY ==
--- NOTE | 2023-08-27 | XR_ITS ---
The [address] [address] Patient Name: ALLYSON HANCOCK MRN: [id number] date: 1975 Sex: F Assigned Patient Location: [facility] Current Patient Location: [facility] Accession/Order Number: [id number] Exam Date: 08/27/2023 15:18 Report Date: 08/27/2023 15:48 At the request of: SHAIKH NADIYA Procedure: XR wrist LT min 3V EXAM: XR wrist LT min 3V HISTORY: Left wrist pain M25.532, pain of left thumb M79.645 COMPARISON: None. TECHNIQUE: 3 views of the right wrist were obtained. FINDINGS: There is no evidence of an acute fracture or dislocation. Ulnar minus variance is present. There is mild narrowing of the first carpometacarpal joint. The remainder the joint spaces are intact throughout the wrist. No abnormal soft tissue calcifications are present. XR/XR wrist LT min 3V IMPRESSION: No acute fracture or dislocation. Mild degenerative changes at the first carpometacarpal joint. The remainder the joint spaces are intact. Electronically authenticated by: MEHDI RODRIGUEZ Date: 08/27/2023 15:48
--- NOTE | 2023-08-27 | XR_ITS ---
The [address] [address] Patient Name: ALLYSON HANCOCK MRN: [id number] date: 1975 Sex: F Assigned Patient Location: [facility] Current Patient Location: [facility] Accession/Order Number: [id number] Exam Date: 08/27/2023 15:18 Report Date: 08/27/2023 15:50 At the request of: SHAIKH NADIYA Procedure: XR hand LT min 3V EXAM: XR hand LT min 3V HISTORY: Left wrist pain M25.532, pain of left thumb M79.645 COMPARISON: None. TECHNIQUE: 3 views of left hand were obtained. FINDINGS: There is no evidence of an acute fracture or dislocation. There is mild narrowing of the first carpometacarpal joint. The remainder the joint spaces are intact. No abnormal soft tissue calcification or radiopaque foreign body is identified. XR/XR hand LT min 3V IMPRESSION: No acute fracture or dislocation. Except for mild degenerative changes at the first carpometacarpal joint, the joint spaces are intact. Electronically authenticated by: MEHDI RODRIGUEZ Date: 08/27/2023 15:50
--- OUTSIDE RECORDS SUMMARY | 2023-08-27 10:51 | XMS_ITS | CCD ---
Author Name Unknown Address [address] [facility] [address] [place] [address] Organization [facility] Care Team Providers Care Controller Mechanic Name Role Phone Jasbir Limon Primary Care Provider [phone] Franco Stokes Unavailable Jasbir Limon MD Primary Care Provider Eliel Hurd Primary Care Provider [phone] CASHEN, DIANA P Admitting Unavailable MACARENAEN, DIANA P Attending Unavailable ELIEL HURD Primary Care Unavailable BRYAN MURGUIAANCE P Referring Unavailable ELIEL HURD Primary Care Unavailable MD Eliel Hurd Primary Care Provider [phone] MD Eliel Hurd Referring Provider MD Kallie Chang Attending Provider NON STAFF Attending Provider Unavailable MD Eliel Hurd Primary Care Provider MD Eliel Hurd Referring Provider MD Kallie Chang Attending Provider BRYAN MURGUIAANCE P Referring Unavailable ELIEL HURD Primary Care Unavailable ELIEL HURD Primary Care Unavailable DIANA MURGUIA P Referring Unavailable MD Eliel Hurd Primary Care Provider MD Larissa Saunders Attending Provider MD Eliel Hudr Referring Provider [phone] MD Kallie Chang Attending Provider [phone] MD Eliel Hurd Primary Care Provider MD Larissa Saunders Attending Provider MD Eliel Hurd Referring Provider MD Kallie Chang Attending Provider MD Eliel Hurd Primary Care Provider [phone] DO Adam Vickers Attending Provider MD Eliel Hurd Referring Provider MD Kallie Chang Attending Provider MD Eliel Hurd Referring Provider [phone] MD Kallie Chang Attending Provider MD Eliel Hurd Referring Provider MD Kallie Chang Attending Provider MD Eliel Hurd Primary Care Provider MD Eliel Hurd Referring Provider [phone] MD Kallie Chang Attending Provider [phone] MD Eliel Hurd Primary Care Provider MD Eliel Hurd Referring Provider MD Kallie Chang Attending Provider [phone] [facility] Admitting Unavailable HURD ., DR ELIEL Rouse Primary Care Unavailable EARNEST HDZ Attending Unavailable [facility] Consulting Unavailable HURD ., DR ELILE Rouse Attending Unavailable HURD ., DR ELIEL [...] Unavailable VERNELL ., DR FREITAS Attending Unavailable RIVERDALE, DR KRISTA Delgado Consulting Unavailable HURD ., DR ELIEL Rouse Primary Care Unavailable VERNELL ., DR FREITAS Admitting Unavailable VERNELL ., DR FREITAS Attending Unavailable VERNELL ., DR FREITAS Consulting Unavailable BRIEN KOEHLER Admitting Unavailable FAWWAD, MARIN H Primary Care Unavailable APLING, BRIEN B Attending [facility]available [facility] Consult[facility] Unavailable DI ., DR ELIEL Rouse Primary Care Unavailable MONIQUE ., DR KAITLIN Norton Admitting Unavailable MONIQUE ., DR KAITLIN Norton Attending Unavailable GIEDJESSIE, ANDRI Admitting Unavailable JUAN RICE Referring Unavailable SHAIKH Jun HEARN Primary Care Unavailable GIBUD, ANDRI Attending Unavailable Elham POZO, Booker Briones Attending Unavailable Elham POZO, Booker Briones Attending Unavailable MD Eliel Hurd Primary Care Provider [phone] MD Eliazar Gibson Attending Provider [phone] Eliel Hurd Primary Care Unavailable Elaizar Gibson Admitting Unavailable Eliazar Gibson Attending Unavailable [...] Medication Allergies] Propensity to adverse reactions (disorder) [facility] Repository Medications Current Medications Medication Drug Class(es) [...] every six hours as needed for headache utcybpg-mmvyylaipbqpj-kaepraes (EXCEDRIN MIGRAINE) 250-250-65 MG per tablet Take [...] Range Facility Physician Referralon 023 Physician Referral [id number] 1 [id number] Normal [facility] Physician Referralon 023 Physician Referral [id number] 0 [id number] Normal [facility] LEONARD Antinuclear Antibodieson 04-07-2023 Antinuclear Abs, IFA Positive Critically abnormal . [facility] Comment on above: Result Comment: Nega tive <1:80 Borderline 1:80 Positive >1:80 Performed By: #### C RAYMON CBC #### [facility] [address] Homogeneous Pattern 1:80 Normal . [facility] Comment on above: Result Comment: ICAP nomenclature: AC-1 Performed By: #### C RAYMON, CBC #### [facility] [address] [place] [id number] [facility] Note 1 Normal . [facility] Comment on above: Result Comment: For [...] titers Nucleosomes, Histones Drug-induced SLE Speckled Sm, MEDICAL SALES REPRESENTATIVE, SCL-70, SLE,MCTD,PSS (diffuse form), SS-A/SS-B Sjogrens Nucleolar SCL-70, PM-1/SCL High titers Scleroderma, PM/DM Centromere Centromere PSS (limited form) w/Crest syndrome variable Nuclear Dot Sp100,[id number] Primary Biliary Cirrhosis Nuclear GP210, Primary Biliary Cirrhosis Membrane scarlett A,B,C Performed at: [address] [id number] Information Management Manager: Red Sena PhD, Phone: [phone] PERFORMED BY: [place] [address] PATHOLOGIST DIESEL CRANE OPERATOR CHITO HENDRICKS M.D. Performed By: #### C MP, CBC #### [facility] [address] [place] [address] [place] Speckled Pattern 1:160 High . [facility] Comment on above: Result Comment: ICAP nomenclature: AC-2,4,5,29 Performed By: #### C MP, CBC #### [facility] [address] [place] [address] [place] C reactive protein [Mass/vol ume] in Serum or PlasmaOrdered By: Eliazar Gibson on 04-07-2023 CRP [Mass/Vol] < 0.5 mg/dL 0.0-0.5 [facility] C-Reactive Proteinon 023 CRP [Mass/Vol] mg/L Normal 0.0-0.5 [facility] Comment on above: Result Comment: PERF ORMED BY: [place] [address] PATHOLOGIST DIESEL CRANE OPERATOR CHITO HENDRICKS M.D. Performed By: #### C MP, CBC #### [facility] [address] [place] [address] Erythrocyte Sedimentation Ra logan 04-07-2023 ESR (Bld) [Velocity] 22 mm/h High 0- [facility] Comment on above: Result Comment: PERF ORMED BY: [place] [address] PATHOLOGIST DIESEL CRANE OPERATOR CHITO HENDRICKS M.D. Performed By: #### C MP, CBC #### [facility] [address] [place] [address] Erythrocyte sedimentation ra te by Photometric methodOrdered By: Eliazar Gibson on 04-07-2023 ESR Photometric method (Bld) [Velocity] 22 mm/hr 0 [facility] Retail - Clinical Noteon Retail - Clinical Note [id number] Normal [facility] Free T4 (Free Thyroxine)on 0 11-16-2022 Free T4 [Mass/Vol] 1.03 ng/dL Normal 0.61-1.12 [facility] Comment on above: Performed By: #### C MP, TSH3, RAÚL, T4F #### [facility] [address] [place] [address] Serum or plasma thyroperoxid ase antibody assay (units/volume)Ordered By: Elizabeth Pérez on 11-16-2022 TPO Ab Qn 13 [IU]/mL - [facility] Comment on above: Performed at: [facility] [address] [id number] Director: Red Sena PhD, Phone: [phone] Thyroid Peroxidase Antibodie son 11-16-2022 Thyroid Peroxidase Antibodies 13 Normal - [facility] Comment on above: Result Comment: Perf ormed at: CB - [facility] [address] [id number] Information Management Manager: Red Sena PhD, Phone: [phone] PERFORMED BY: [place] [address] PATHOLOGIST DIESEL CRANE OPERATOR CHITO HENDRICKS M.D. Performed By: #### C MP, TSH3, RAÚL, T4F #### [facility] [address] [place] [address] [place] Thyroid Stimulating Hormoneo n 11-16-2022 TSH Qn 1.03 m[IU]/L Normal 0.45-5.33 [facility] Comment on above: Result Comment: PERF ORMED BY: [place] [address] PATHOLOGIST DIESEL CRANE OPERATOR CHITO HENDRICKS M.D. Performed By: #### C MP, TSH3, RAÚL, T4F #### [address] [id number] Thyrotropin [Units/volume] i n Serum or PlasmaOrdered By: Elizabeth Pérez on 11-16-2022 TSH Qn 1.03 m[IU]/L 0.45-5.33 [facility] Thyroxine (T4) free [Mass/vo lume] in Serum or PlasmaOrdered By: Elizabeth Pérez on 11-16-2022 Free T4 [Mass/Vol] 1.03 ng/dL 0.61-1.12 [facility] Triiodothyronine (T3) Freeon 11-16-2022 Triiodothyronine (T3) Free 4.39 pg/mL High 2.50-3.90 [facility] Comment on above: Result Comment: PERF ORMED BY: [place] [address] PATHOLOGIST DIESEL CRANE OPERATOR CHITO HENDRICKS M.D. Performed By: #### C MP, CBC #### [facility] [address] [place] [address] [facility] Triiodothyronine (T3) Free [ Mass/volume] in Serum or PlasmaOrdered By: Elizabeth Pérez on 11-16-2022 Free T3 [Mass/Vol] 4.39 pg/mL 2.50-3.90 [facility] Adrenocorticotropic Hormone PLon 09-16-[address] <1.5 Low 7.2-63.3 [facility] Comment on above: Result Comment: ACTH reference interval for samples collected between 7 and 10 AM. Performed at: - [facility] [address], [place], [place] [id number] Information Management Manager: Red Sena PhD, Phone: [phone] PERFORMED BY: [place] [address] PATHOLOGIST DIESEL CRANE OPERATOR CHITO HENDRICKS M.D. Performed By: #### C BC, CMP #### [address] Albumin [Mass/volume] in Bod y fluidOrdered By: Kallie Chang on 09-16-2022 Albumin (Body fld) [Mass/Vol] 3.7 g/dL 3.2-5.5 [facility] Alkaline phosphatase [Enzyma tic activity/volume] in Serum or PlasmaOrdered By: Kallie Chang on 09-16-2022 ALP [Catalytic activity/Vol] 85 U/L 32-92 [facility] Aspartate aminotransferase [ Enzymatic activity/volume] in Serum or PlasmaOrdered By: Kallie Chang on 09-16-2022 AST [Catalytic activity/Vol] 20 U/L 10-42 [facility] Basophils Auto (Bld) [#/Vol] Ordered By: Kallie Chang on 09-16-2022 Basophils (Bld) [#/Vol] 0.0 10*3/uL 0.0-0.2 [facility] Basophils/100 WBC Auto (Bld) Ordered By: Kallie Chang on 09-16-2022 Basophils/100 WBC (Bld) 0.3 % . [facility] Bilirubin.total [Mass/volume ] in Serum or PlasmaOrdered By: Kallie Chang on 09-16-2022 Bilirubin [Mass/Vol] 0.6 mg/dL 0.3-1.2 [facility] Calcium [Mass/volume] in Ser um or PlasmaOrdered By: Kallie Chang on 09-16-2022 Calcium [Mass/Vol] 9.2 mg/dL 8.2-10.2 [facility] Carbon dioxide, total [Moles /volume] in Serum or PlasmaOrdered By: Kallie Chang on 09-16-2022 CO2 [Moles/Vol] 23.1 mmol/L 22.0-30.0 [facility] Chloride [Moles/volume] in S nathaly or PlasmaOrdered By: Kallie Chang on 09-16-2022 Chloride [Moles/Vol] 102 mmol/L 95-114 [facility] Complete Blood Count Auto Di ffon 09-16-2022 Basophils (Bld) [#/Vol] 0.0 10*3/uL Normal 0.0-0.2 [facility] Comment on above: Result Comment: PERF ORMED BY: [place] [address] PATHOLOGIST DIESEL CRANE OPERATOR CHITO HENDRICKS M.D. Performed By: #### C MP, TSH3, RAÚL, T4F #### [facility] [address] [place] [address] Basophils/100 WBC (Bld) 0.3 % Normal . [facility] Comment on above: Performed By: #### C MP, TSH3, RAÚL, T4F #### [facility] [address] Eosinophils (Bld) [#/Vol] 0.0 10*3/uL Normal 0.0-0.45 [facility] Comment on above: Performed By: #### C MP, TSH3, RAÚL, T4F #### [facility] [address] [place] [address] Eosinophils/100 WBC (Bld) 0.1 % Normal . [facility] Comment on above: Performed By: #### C MP, TSH3, RAÚL, T4F #### [facility] [address] [place] [address] Erythrocyte distribution width (RBC) [Ratio] 15.1 % Normal 11.9-15.3 [facility] Comment on above: Performed By: #### C MP, TSH3, RAÚL, T4F #### [facility] [address] [place] [address] Hematocrit (Bld) [Volume fraction] 38.3 % Normal 34.0-46.4 [facility] Comment on above: Performed By: #### C MP, TSH3, RAÚL, T4F #### [address] Hemoglobin (Bld) [Mass/Vol] 12.5 g/dL Normal 11.8-15.4 [facility] Comment on above: Performed By: #### C MP, TSH3, RAÚL, T4F #### [address] Lymphocytes (Bld) [#/Vol] 0.7 10*3/uL Low 1.00-4.8 [facility] Comment on above: Performed By: #### C MP, TSH3, RAÚL, T4F #### [address] Lymphocytes/100 WBC (Bld) 6.2 % Normal . [facility] Comment on above: Performed By: #### C MP, TSH3, RAÚL, T4F #### [address] MCH (RBC) [Entitic mass] 30.2 pg Normal 24.7-34.3 [facility] Comment on above: Performed By: #### C MP, TSH3, RAÚL, T4F #### [address] MCV (RBC) [Entitic vol] 92.4 fL Normal 80-100 [facility] Comment on above: Performed By: #### C MP, TSH3, RAÚL, T4F #### [address] Mean Corpuscular HGB Conc 32.7 g/dL Normal 32.0-35.0 [facility] Comment on above: Performed By: #### C MP, TSH3, RAÚL, T4F #### [address] Monocytes (Bld) [#/Vol] 0.3 10*3/uL Normal 0.0-0.8 [facility] Comment on above: Performed By: #### C MP, TSH3, RAÚL, T4F #### [address] [place] [address] [place] Monocytes/100 WBC (Bld) 2.3 % Normal . [facility] Comment on above: Performed By: #### C MP, TSH3, RAÚL, T4F #### [facility] [address] Neutrophils (Bld) [#/Vol] 10.4 10*3/uL High 1.8-7.7 [facility] Comment on above: Performed By: #### C MP, TSH3, RAÚL, T4F #### [facility] [address] Neutrophils/100 WBC (Bld) 91.1 % Normal . [facility] Comment on above: Performed By: #### C MP, TSH3, RAÚL, T4F #### [facility] [address] [place] [address] NRBC% 0.1 /100{WBC} Normal 0-0.5 [facility] Comment on above: Performed By: #### C MP, TSH3, RAÚL, T4F #### [facility] [address] Platelet mean volume (Bld) [Entitic vol] 6.9 fL Normal 6.3-10.7 [facility] Comment on above: Performed By: #### C MP, TSH3, RAÚL, T4F #### [place] [address] [place] Platelets (Bld) [#/Vol] 287 10*3/uL Normal 150-450 [facility] Comment on above: Performed By: #### C MP, TSH3, RAÚL, T4F #### [facility] [address] [place] [address] [place] RBC (Bld) [#/Vol] 4.14 10*6/uL Normal 3.60-5.00 [facility] Comment on above: Performed By: #### C MP, TSH3, RAÚL, T4F #### [place] [address] [place] WBC (Bld) [#/Vol] 11.5 10*3/uL Normal 3.8-11.6 [facility] Comment on above: Performed By: #### C MP, TSH3, RAÚL, T4F #### [facility] [address] Comprehensive Metabolic Pane arthur 09-16-2022 Albumin [Mass/Vol] 3.7 g/dL Normal 3.2-5.5 [facility] Comment on above: Performed By: #### C MP, TSH3, RAÚL, T4F #### [address] Albumin/Globulin [Mass ratio] 1.3 {ratio} Normal [facility] Comment on above: Performed By: #### C MP, TSH3, RAÚL, T4F #### [address] ALP [Catalytic activity/Vol] 85 U/L Normal 32-92 [facility] Comment on above: Performed By: #### C MP, TSH3, RAÚL, T4F #### [address] ALT [Catalytic activity/Vol] 16 U/L Normal 10-60 [facility] Comment on above: Performed By: #### C MP, TSH3, RAÚL, T4F #### [address] Anion gap [Moles/Vol] 13.2 mmol/L Normal 6.0-15.0 [facility] Comment on above: Performed By: #### C MP, TSH3, RAÚL, T4F #### [address] AST [Catalytic activity/Vol] 20 U/L Normal 10-42 [facility] Comment on above: Performed By: #### C MP, TSH3, RAÚL, T4F #### [address] Bilirubin [Mass/Vol] 0.6 mg/dL Normal 0.3-1.2 [facility] Comment on above: Performed By: #### C MP, TSH3, RAÚL, T4F #### [facility] [address] Calcium [Mass/Vol] 9.2 mg/dL Normal 8.2-10.2 [facility] Comment on above: Performed By: #### C MP, TSH3, RAÚL, T4F #### [facility] [address] Chloride [Moles/Vol] 102 mmol/L Normal 95-114 [facility] Comment on above: Performed By: #### C MP, TSH3, RAÚL, T4F #### [address] CO2 [Moles/Vol] 23.1 mmol/L Normal 22.0-30.0 [facility] Comment on above: Performed By: #### C MP, TSH3, RAÚL, T4F #### [address] Creatinine [Mass/Vol] 0.98 mg/dL Normal 0.44-1.03 [facility] Comment on above: Performed By: #### C MP, TSH3, RAÚL, T4F #### [address] Creatinine Clr Calc Pharmacy 72.74 [facility] Comment on above: Result Comment: PERF ORMED BY: [place] [address] PATHOLOGIST DIESEL CRANE OPERATOR CHITO HENDRICKS M.D. Performed By: #### C MP, TSH3, RAÚL, T4F #### [address] Estimated GFR ( Janis > 60 [facility] Comment on above: Result Comment: GFR estimated reference range: According to KDOQI guidelines, <60 ml/min/1.73m2 is sufficient to diagnose a patient with chronic kidney disease. Performed By: #### C MP, TSH3, RAÚL, T4F #### [address] Estimated GFR (Non- Am > 60 [facility] Comment on above: Performed By: #### C MP, TSH3, RAÚL, T4F #### [facility] [address] [place] [address] [place] Globulin (S) [Mass/Vol] 2.8 g/dL Normal [facility] Comment on above: Performed By: #### C MP, TSH3, RAÚL, T4F #### [facility] [address] [place] [address] [place] Glucose [Mass/Vol] 176 mg/dL High 70-100 [facility] Comment on above: Result Comment: [facility] Glucose Reference Range is dependent on time and content of last meal. Glucose of more than 200 mg/dL in a nonstressed, ambulatory subject supports the diagnosis of Diabetes Mellitus. ADA recommended reference range Performed By: #### C MP, TSH3, RAÚL, T4F #### [facility] [address] Potassium [Moles/Vol] 4.3 mmol/L Normal 3.5-5.1 [facility] Comment on above: Performed By: #### C MP, TSH3, RAÚL, T4F #### [facility] [address] [place] [address] [place] Protein [Mass/Vol] 6.5 g/dL Normal 6.1-7.9 [facility] Comment on above: Performed By: #### C MP, TSH3, RAÚL, T4F #### [facility] [address] [place] [address] [place] Sodium [Moles/Vol] 134 mmol/L Low 136-146 [facility] Comment on above: Performed By: #### C MP, TSH3, RAÚL, T4F #### [facility] [address] [place] [address] [place] Urea nitrogen [Mass/Vol] 15 mg/dL Normal 9-23 [facility] Comment on above: Performed By: #### C MP, TSH3, RAÚL, T4F #### [facility] [address] [place] [address] [place] Cortisolon 09-16-2022 Cortisol 3.7 ug/dL Normal [facility] Comment on above: Result Comment: Refe rence range: AM 6 - 24 ug/dl PM <10 ug/dl PERFORMED BY: [place] [address] PATHOLOGIST DIESEL CRANE OPERATOR CHITO HENDRICKS M.D. Performed By: #### C BC, CMP #### [facility] [address] Creatinine and Glomerular fi ltration rate.predicted panel (S/P/Bld)Ordered By: Kallie Chang on 09-16-2022 Creatinine [Mass/Vol] 0.98 mg/dL 0.44-1.03 [facility] Eosinophils Auto (Bld) [#/Vo l]Ordered By: Kallie Chang on 09-16-2022 Eosinophils (Bld) [#/Vol] 0.0 10*3/uL 0.0-0.45 [facility] Eosinophils/100 WBC Auto (Bl d)Ordered By: Kallie Chang on 09-16-2022 Eosinophils/100 WBC (Bld) 0.1 % . [facility] Erythrocyte distribution wid th Auto (RBC) [Ratio]Ordered By: Kallie Chang on 09-16-2022 Erythrocyte distribution width (RBC) [Ratio] 15.1 % 11.9-15.3 [facility] Estimated glomerular filtrat ion rate (GFR) non- AmericanOrdered By: Kallie Chang on 09-16-2022 GFR/1.73 sq M.predicted among non-blacks MDRD (S/P/Bld) [Vol rate/Area] > 60 mL/Min [facility] Free T4 (Free Thyroxine)on 0 09-16-2022 Free T4 [Mass/Vol] 0.84 ng/dL Normal 0.61-1.12 [facility] Comment on above: Performed By: #### C BC, CMP #### [facility] [address] Globulin Calc (S) [Mass/Vol] Ordered By: Kallie Chang on 09-16-2022 Globulin (S) [Mass/Vol] 2.8 g/dL [facility] Glucose [Mass/volume] in Ser um or PlasmaOrdered By: Kallie Chang on 09-16-2022 Glucose [Mass/Vol] 176 mg/dL 70-100 [facility] Comment on above: ADA recommended refe rence rangeRandom Glucose Reference Range is dependent on time and content of last meal. Glucose of more than 200 mg/dL in a nonstressed, ambulatory subject supports the diagnosis of Diabetes Mellitus. Hematocrit Auto (Bld) [Volum e fraction]Ordered By: Kallie Chang on 09-16-2022 Hematocrit (Bld) [Volume fraction] 38.3 % 34.0-46.4 [facility] Hemoglobin [Mass/volume] in BloodOrdered By: Kallie Chang on 09-16-2022 Hemoglobin (Bld) [Mass/Vol] 12.5 g/dL 11.8-15.4 [facility] Leukocytes [#/volume] correc annie for nucleated erythrocytes in Blood by Automated counOrdered By: Kallie Chang on 09-16-2022 WBC corrected for nucl RBC Auto (Bld) [#/Vol] 11.5 10*3/uL 3.8-11.6 [facility] Lymphocytes Auto (Bld) [#/Vo l]Ordered By: Kallie Chang on 09-16-2022 Lymphocytes (Bld) [#/Vol] 0.7 10*3/uL 1.00-4.8 [facility] Lymphocytes/100 WBC Auto (Bl d)Ordered By: Kallie Chang on 09-16-2022 Lymphocytes/100 WBC (Bld) 6.2 % . [facility] MCH Auto (RBC) [Entitic mass ]Ordered By: Kallie Chang on 09-16-2022 MCH (RBC) [Entitic mass] 30.2 pg 24.7-34.3 [facility] MCHC Auto (RBC) [Mass/Vol]Or dered By: Kallie Chang on 09-16-2022 MCHC (RBC) [Mass/Vol] 32.7 g/dL 32.0-35.0 [facility] MCV Auto (RBC) [Entitic vol] Ordered By: Kallie Chang on 09-16-2022 MCV (RBC) [Entitic vol] 92.4 fL 80-100 [facility] Monocytes Auto (Bld) [#/Vol] Ordered By: Kallie Chang on 09-16-2022 Monocytes (Bld) [#/Vol] 0.3 10*3/uL 0.0-0.8 [facility] Monocytes/100 WBC Auto (Bld) Ordered By: Kallie Chang on 09-16-2022 Monocytes/100 WBC (Bld) 2.3 % . [facility] Neutrophils Auto (Bld) [#/Vo l]Ordered By: Kallie Chang on 09-16-2022 Neutrophils (Bld) [#/Vol] 10.4 10*3/uL 1.8-7.7 [facility] Neutrophils/100 WBC Auto (Bl d)Ordered By: Kallie Chang on 09-16-2022 Neutrophils/100 WBC (Bld) 91.1 % . [facility] No Panel InformationOrdered By: Kallie Chang on 09-16-2022 Adrenocorticotropic Hormone <1.5 pg/mL 7.2-63.3 [facility] Comment on above: ACTH reference inter ervin for samples collected between 7 and10 AM.Performed at: [facility] [address] [id number] Director: Red Sena PhD, Phone: [phone] Estimated GFR () > 60 mL/Min [facility] Comment on above: GFR estimated refere nce range: According to KDOQI guidelines, <60 ml/min/1.73m2 is sufficient to diagnose a patient with chronic kidney disease. Pharmacy Creatinine Clearance (Chem 72.74 [facility] Nucleated erythrocytes [Pres ence] in Blood by Automated countOrdered By: Kallie Chang on 09-16-2022 Nucleated RBC Auto Ql (Bld) 0.1 /100{WBC} 0-0.5 [facility] Platelet mean volume Auto (B ld) [Entitic vol]Ordered By: Kallie Chang on 09-16-2022 Platelet mean volume (Bld) [Entitic vol] 6.9 fL 6.3-10.7 [facility] Platelets Auto (Bld) [#/Vol] Ordered By: Kallie Chang on 09-16-2022 Platelets (Bld) [#/Vol] 287 10*3/uL 150-450 [facility] Potassium [Moles/volume] in Serum or PlasmaOrdered By: Kallie Chang on 09-16-2022 Potassium [Moles/Vol] 4.3 mmol/L 3.5-5.1 [facility] Protein [Mass/volume] in Ser um or PlasmaOrdered By: Kallie Chang on 09-16-2022 Protein [Mass/Vol] 6.5 g/dL 6.1-7.9 [facility] RBC Auto (Bld) [#/Vol]Ordere d By: Kallie Chang on 09-16-2022 RBC (Bld) [#/Vol] 4.14 10*6/uL 3.60-5.00 [facility] Random cortisol measurementO rdered By: Kallie Chang on 09-16-2022 Cortisol [Mass/Vol] 3.7 ug/dL [facility] Comment on above: Reference range: AM 6 - 24 ug/dl PM <10 ug/dl Serum or plasma alanine napoles otransferase measurement without P-5'-P (enzymatic activiOrdered By: Kallie Chang on 09-16-2022 ALT No additional P-5'-P [Catalytic activity/Vol] 16 U/L 10-60 [facility] Serum or plasma albumin/glob ulin mass ratioOrdered By: Kallie Chang on 09-16-2022 Albumin/Globulin [Mass ratio] 1.3 {ratio} [facility] Serum or plasma anion gap de terminationOrdered By: Kallie Chang on 09-16-2022 Anion gap [Moles/Vol] 13.2 mmol/L 6.0-15.0 [facility] Sodium [Moles/volume] in Ser um or PlasmaOrdered By: Kallie Chang on 09-16-2022 Sodium [Moles/Vol] 134 mmol/L 136-146 [facility] TSH DL <= 0.005 mIU/L QnOrde red By: Kallie Chang on 09-16-2022 TSH Qn 0.51 m[IU]/L 0.45-5.33 [facility] Thyroid Stimulating Hormoneo n 09-16-2022 TSH Qn 0.51 m[IU]/L Normal 0.45-5.33 [facility] Comment on above: Performed By: #### C BC, CMP #### [address] Thyroxine (T4) free [Mass/vo lume] in Serum or PlasmaOrdered By: Kallie Chang on 09-16-2022 Free T4 [Mass/Vol] 0.84 ng/dL 0.61-1.12 [facility] Urea nitrogen [Mass/volume] in Serum or PlasmaOrdered By: Kallie Chang on 09-16-2022 Urea nitrogen [Mass/Vol] 15 mg/dL 04-10 [facility] WBC Auto (Bld) [#/Vol]Ordere d By: Kallie Chang on 09-16-2022 WBC (Bld) [#/Vol] 11.5 10*3/uL 3.8-11.6 [facility] Adrenocorticotropic Hormone PLon 08-27-[address] 2.7 pg/mL Low 7.2-63.3 [facility] Comment on above: Result Comment: ACTH reference interval for samples collected between 7 and 10 AM. Performed at: - [facility] [id number] Information Management Manager: Red Sena PhD, Phone: [phone] PERFORMED BY: [place] [address] PATHOLOGIST DIESEL CRANE OPERATOR CHITO HENDRICKS M.D. Performed By: #### C MP, CBC #### [address] Complete Blood Count Auto Di ffon 08-27-2022 Basophils (Bld) [#/Vol] 0.1 10*3/uL Normal 0.0-0.2 [facility] Comment on above: Result Comment: PERF ORMED BY: [place] [address] PATHOLOGIST DIESEL CRANE OPERATOR CHITO HENDRICKS M.D. Performed By: #### C BC, CMP #### [address] Basophils/100 WBC (Bld) 0.8 % Normal . [facility] Comment on above: Performed By: #### C BC, CMP #### [facility] [address] [place] [address] [place] Eosinophils (Bld) [#/Vol] 0.1 10*3/uL Normal 0.0-0.45 [facility] Comment on above: Performed By: #### C BC, CMP #### [facility] [address] [place] [address] [place] Eosinophils/100 WBC (Bld) 2.3 % Normal . [facility] Comment on above: Performed By: #### C BC, CMP #### [address] Erythrocyte distribution width (RBC) [Ratio] 15.1 % Normal 11.9-15.3 [facility] Comment on above: Performed By: #### C BC, CMP #### [address] Hematocrit (Bld) [Volume fraction] 36.6 % Normal 34.0-46.4 [facility] Comment on above: Performed By: #### C BC, CMP #### [place] [address] [place] Hemoglobin (Bld) [Mass/Vol] 12.3 g/dL Normal 11.8-15.4 [facility] Comment on above: Performed By: #### C BC, CMP #### [place] [address] [place] Lymphocytes (Bld) [#/Vol] 1.5 10*3/uL Normal 1.00-4.8 [facility] Comment on above: Performed By: #### C BC, CMP #### [place] [address] [place] Lymphocytes/100 WBC (Bld) 25.4 % Normal . [facility] Comment on above: Performed By: #### C BC, CMP #### [place] [address] [place] MCH (RBC) [Entitic mass] 30.7 pg Normal 24.7-34.3 [facility] Comment on above: Performed By: #### C BC, CMP #### [facility] [address] MCV (RBC) [Entitic vol] 91.1 fL Normal 80-100 [facility] Comment on above: Performed By: #### C BC, CMP #### [facility] [address] Mean Corpuscular HGB Conc 33.7 g/dL Normal 32.0-35.0 [facility] Comment on above: Performed By: #### C BC, CMP #### [facility] [address] Monocytes (Bld) [#/Vol] 0.4 10*3/uL Normal 0.0-0.8 [facility] Comment on above: Performed By: #### C BC, CMP #### [facility] [address] [place] [address] [place] Monocytes/100 WBC (Bld) 6.2 % Normal . [facility] Comment on above: Performed By: #### C BC, CMP #### [facility] [address] [place] [address] [place] Neutrophils (Bld) [#/Vol] 4.0 10*3/uL Normal 1.8-7.7 [facility] Comment on above: Performed By: #### C BC, CMP #### [facility] [address] [place] [address] [place] Neutrophils/100 WBC (Bld) 65.3 % Normal . [facility] Comment on above: Performed By: #### C BC, CMP #### [facility] [address] [place] [address] [place] NRBC% 0.2 /100{WBC} Normal 0-0.5 [facility] Comment on above: Performed By: #### C BC, CMP #### [facility] [address] Platelet mean volume (Bld) [Entitic vol] 6.8 fL Normal 6.3-10.7 [facility] Comment on above: Performed By: #### C BC, CMP #### [facility] [address] Platelets (Bld) [#/Vol] 272 10*3/uL Normal 150-450 [facility] Comment on above: Performed By: #### C BC, CMP #### [address] RBC (Bld) [#/Vol] 4.01 10*6/uL Normal 3.60-5.00 [facility] Comment on above: Performed By: #### C BC, CMP #### [address] WBC (Bld) [#/Vol] 6.1 10*3/uL Normal 3.8-11.6 [facility] Comment on above: Performed By: #### C BC, CMP #### [address] Comprehensive Metabolic Pane arthur 08-27-2022 Albumin [Mass/Vol] 3.6 g/dL Normal 3.2-5.5 [facility] Comment on above: Performed By: #### C BC, CMP #### [address] Albumin/Globulin [Mass ratio] 1.4 {ratio} Normal [facility] Comment on above: Performed By: #### C BC, CMP #### [address] ALP [Catalytic activity/Vol] 89 U/L Normal 32-92 [facility] Comment on above: Performed By: #### C BC, CMP #### [address] ALT [Catalytic activity/Vol] 18 U/L Normal 10-60 [facility] Comment on above: Performed By: #### C BC, CMP #### [address] Anion gap [Moles/Vol] 11.5 mmol/L Normal 6.0-15.0 [facility] Comment on above: Performed By: #### C BC, CMP #### [facility] [address] [place] [address] [place] AST [Catalytic activity/Vol] 20 U/L Normal 10-42 [facility] Comment on above: Performed By: #### C BC, CMP #### [facility] [address] [place] [id number] [facility] Bilirubin [Mass/Vol] 0.4 mg/dL Normal 0.3-1.2 [facility] Comment on above: Performed By: #### C BC, CMP #### [facility] [address] Calcium [Mass/Vol] 9.1 mg/dL Normal 8.2-10.2 [facility] Comment on above: Performed By: #### C BC, CMP #### [facility] [address] [place] [address] [place] Chloride [Moles/Vol] 103 mmol/L Normal 95-114 [facility] Comment on above: Performed By: #### C BC, CMP #### [facility] [address] [place] [address] [place] CO2 [Moles/Vol] 24.3 mmol/L Normal 22.0-30.0 [facility] Comment on above: Performed By: #### C BC, CMP #### [facility] [address] [place] [address] [place] Creatinine [Mass/Vol] 0.79 mg/dL Normal 0.44-1.03 [facility] Comment on above: Performed By: #### C BC, CMP #### [facility] [address] [place] [address] [place] Creatinine Clr Calc Pharmacy 89.84 Normal [facility] Comment on above: Result Comment: PERF ORMED BY: [place] [address] PATHOLOGIST DIESEL CRANE OPERATOR CHITO HENDRICKS M.D. Performed By: #### C BC, CMP #### [facility] [address] [place] [address] [place] Estimated GFR ( Janis > 60 Normal [facility] Comment on above: Result Comment: GFR estimated reference range: According to KDOQI guidelines, <60 ml/min/1.73m2 is sufficient to diagnose a patient with chronic kidney disease. Performed By: #### C BC, CMP #### [facility] [address] Estimated GFR (Non- Am > 60 Normal [facility] Comment on above: Performed By: #### C BC, CMP #### [facility] [address] Globulin (S) [Mass/Vol] 2.6 g/dL Normal [facility] Comment on above: Performed By: #### C BC, CMP #### [address] Glucose [Mass/Vol] 130 mg/dL High 70-100 [facility] Comment on above: Result Comment: [place] Glucose Reference Range is dependent on time and content of last meal. Glucose of more than 200 mg/dL in a nonstressed, ambulatory subject supports the diagnosis of Diabetes Mellitus. ADA recommended reference range Performed By: #### C BC, CMP #### [place] [address] [place] Potassium [Moles/Vol] 3.8 mmol/L Normal 3.5-5.1 [facility] Comment on above: Performed By: #### C BC, CMP #### [place] [address] [place] Protein [Mass/Vol] 6.2 g/dL Normal 6.1-7.9 [facility] Comment on above: Performed By: #### C BC, CMP #### [place] [address] [place] Sodium [Moles/Vol] 135 mmol/L Low 136-146 [facility] Comment on above: Performed By: #### C BC, CMP #### [place] [address] [place] Urea nitrogen [Mass/Vol] 15 mg/dL Normal 9-23 [facility] Comment on above: Performed By: #### C BC, CMP #### [place] [id number] [facility] Cortisolon 08-27-2022 Cortisol < 0.4 Normal [facility] Comment on above: Result Comment: Refe rence range: AM 6 - 24 ug/dl PM <10 ug/dl PERFORMED BY: [place] [address] PATHOLOGIST DIESEL CRANE OPERATOR CHITO HENDRICKS M.D. Performed By: #### C MP, CBC #### [address] Free T4 (Free Thyroxine)on 0 08-27-2022 Free T4 [Mass/Vol] 0.66 ng/dL Normal 0.61-1.12 [facility] Comment on above: Performed By: #### C BC, CMP #### [address] Thyroid Stimulating Hormoneo n 08-27-2022 TSH Qn 6.13 m[IU]/L High 0.45-5.33 [facility] Comment on above: Performed By: #### C MP, CBC #### [address] Adrenocorticotropic Hormone PLon 08-05-[address] <1.5 Low 7.2-63.3 [facility] Comment on above: Result Comment: ACTH reference interval for samples collected between 7 and 10 AM. Performed at: [facility] [address] [id number] Information Management Manager: Red Sena PhD, Phone: [phone] PERFORMED BY: [place] [address] PATHOLOGIST DIESEL CRANE OPERATOR CHITO HENDRICKS M.D. Performed By: #### C MP, CBC #### [address] Albumin [Mass/volume] in Ser um or PlasmaOrdered By: Kallie Chang on 08-05-2022 Albumin [Mass/Vol] 3.8 g/dL 3.2-5.5 [facility] Basophils Auto (Bld) [#/Vol] Ordered By: Kallie Chang on 08-05-2022 Basophils (Bld) [#/Vol] 0.0 10*3/uL 0.0-0.2 [facility] Basophils/100 WBC Auto (Bld) Ordered By: Kallie Chang on 08-05-2022 Basophils/100 WBC (Bld) 0.2 % . [facility] Complete Blood Count Auto Di ffon 08-05-2022 Basophils (Bld) [#/Vol] 0.0 10*3/uL Normal 0.0-0.2 [facility] Comment on above: Result Comment: PERF ORMED BY: [place] [address] PATHOLOGIST DIESEL CRANE OPERATOR CHITO HENDRICKS M.D. Performed By: #### C MP, CBC #### [address] Basophils/100 WBC (Bld) 0.2 % Normal . [facility] Comment on above: Performed By: #### C MP, CBC #### [facility] [address] [place] [address] [place] Eosinophils (Bld) [#/Vol] 0.0 10*3/uL Normal 0.0-0.45 [facility] Comment on above: Performed By: #### C MP, CBC #### [facility] [address] [place] [address] Eosinophils/100 WBC (Bld) 0.0 % Normal . [facility] Comment on above: Performed By: #### C MP, CBC #### [facility] [address] [place] [address] Erythrocyte distribution width (RBC) [Ratio] 14.9 % Normal 11.9-15.3 [facility] Comment on above: Performed By: #### C MP, CBC #### [address] Hematocrit (Bld) [Volume fraction] 37.2 % Normal 34.0-46.4 [facility] Comment on above: Performed By: #### C MP, CBC #### [facility] [address] Hemoglobin (Bld) [Mass/Vol] 12.2 g/dL Normal 11.8-15.4 [facility] Comment on above: Performed By: #### C MP, CBC #### [facility] [address] Lymphocytes (Bld) [#/Vol] 0.5 10*3/uL Low 1.00-4.8 [facility] Comment on above: Performed By: #### C MP, CBC #### [facility] [address] Lymphocytes/100 WBC (Bld) 5.5 % Normal . [facility] Comment on above: Performed By: #### C MP, CBC #### [facility] [address] MCH (RBC) [Entitic mass] 29.8 pg Normal 24.7-34.3 [facility] Comment on above: Performed By: #### C MP, CBC #### [facility] [address] MCV (RBC) [Entitic vol] 90.9 fL Normal 80-100 [facility] Comment on above: Performed By: #### C MP, CBC #### [facility] [address] Mean Corpuscular HGB Conc 32.8 g/dL Normal 32.0-35.0 [facility] Comment on above: Performed By: #### C MP, CBC #### [facility] [address] [place] [address] [place] Monocytes (Bld) [#/Vol] 0.1 10*3/uL Normal 0.0-0.8 [facility] Comment on above: Performed By: #### C MP, CBC #### [facility] [address] Monocytes/100 WBC (Bld) 1.4 % Normal . [facility] Comment on above: Performed By: #### C MP, CBC #### [facility] [address] [place] [address] [place] Neutrophils (Bld) [#/Vol] 8.7 10*3/uL High 1.8-7.7 [facility] Comment on above: Performed By: #### C MP, CBC #### [facility] [address] [place] [id number] [place] Neutrophils/100 WBC (Bld) 92.9 % Normal . [facility] Comment on above: Performed By: #### C MP, CBC #### [facility] [address] NRBC% 0.0 /100{WBC} Normal 0-0.5 [facility] Comment on above: Performed By: #### C MP, CBC #### [facility] [address] Platelet mean volume (Bld) [Entitic vol] 7.1 fL Normal 6.3-10.7 [facility] Comment on above: Performed By: #### C MP, CBC #### [facility] [address] [place] [address] [place] Platelets (Bld) [#/Vol] 263 10*3/uL Normal 150-450 [facility] Comment on above: Performed By: #### C MP, CBC #### [facility] [address] RBC (Bld) [#/Vol] 4.09 10*6/uL Normal 3.60-5.00 [facility] Comment on above: Performed By: #### C MP, CBC #### [facility] [address] [place] [address] [place] WBC (Bld) [#/Vol] 9.3 10*3/uL Normal 3.8-11.6 [facility] Comment on above: Performed By: #### C MP, CBC #### [facility] [address] Comprehensive Metabolic Pane arthur 08-05-2022 Albumin [Mass/Vol] 3.8 g/dL Normal 3.2-5.5 [facility] Comment on above: Performed By: #### C MP, CBC #### [facility] [address] [place] [address] [place] Albumin/Globulin [Mass ratio] 1.4 {ratio} [facility] Comment on above: Performed By: #### C MP, CBC #### [facility] [address] Albumin/Globulin [Mass ratio] 1.3 {ratio} [facility] Comment on above: Performed By: #### C MP, CBC #### [facility] [address] ALP [Catalytic activity/Vol] 88 U/L Normal [facility] Comment on above: Performed By: #### C MP, CBC #### [facility] [address] [place] [address] ALP [Catalytic activity/Vol] 89 U/L Normal [facility] Comment on above: Performed By: #### C MP, CBC #### [facility] [address] [place] [address] [place] ALT [Catalytic activity/Vol] 17 U/L Normal [facility] Comment on above: Performed By: #### C MP, CBC #### [facility] [address] [place] [address] [place] ALT [Catalytic activity/Vol] 16 U/L Normal [facility] Comment on above: Performed By: #### C MP, CBC #### [facility] [address] [place] [address] [place] Anion gap [Moles/Vol] 14.5 mmol/L Normal 6.0-15.0 [facility] Comment on above: Performed By: #### C MP, CBC #### [facility] [address] [place] [address] Anion gap [Moles/Vol] 16.6 mmol/L High 6.0-15.0 [facility] Comment on above: Performed By: #### C MP, CBC #### [facility] [address] AST [Catalytic activity/Vol] 15 U/L Normal 10-42 [facility] Comment on above: Performed By: #### C MP, CBC #### [address] AST [Catalytic activity/Vol] 18 U/L Normal 10-42 [facility] Comment on above: Performed By: #### C MP, CBC #### [address] Bilirubin [Mass/Vol] 0.5 mg/dL Normal 0.3-1.2 [facility] Comment on above: Performed By: #### C MP, CBC #### [address] Bilirubin [Mass/Vol] 0.7 mg/dL Normal 0.3-1.2 [facility] Comment on above: Performed By: #### C MP, CBC #### [address] Calcium [Mass/Vol] 9.0 mg/dL Normal 8.2-10.2 [facility] Comment on above: Performed By: #### C MP, CBC #### [address] Calcium [Mass/Vol] 9.1 mg/dL Normal 8.2-10.2 [facility] Comment on above: Performed By: #### C MP, CBC #### [facility] [address] [place] [address] [place] Chloride [Moles/Vol] 101 mmol/L Normal 95-114 [facility] Comment on above: Performed By: #### C MP, CBC #### [facility] [address] [place] [address] [place] Chloride [Moles/Vol] 99 mmol/L Normal 95-114 [facility] Comment on above: Performed By: #### C MP, CBC #### [facility] [address] [place] [address] [place] CO2 [Moles/Vol] 25.1 mmol/L Normal 22.0-30.0 [facility] Comment on above: Performed By: #### C MP, CBC #### [facility] [address] [place] [address] CO2 [Moles/Vol] 24.0 mmol/L Normal 22.0-30.0 [facility] Comment on above: Performed By: #### C MP, CBC #### [address] Creatinine [Mass/Vol] 1.01 mg/dL Normal 0.44-1.03 [facility] Comment on above: Performed By: #### C MP, CBC #### [address] Creatinine [Mass/Vol] 1.03 mg/dL Normal 0.44-1.03 [facility] Comment on above: Performed By: #### C MP, CBC #### [place] [address] [place] Creatinine Clr Calc Pharmacy 69.07 [facility] Comment on above: Result Comment: PERF ORMED BY: [place] [address] PATHOLOGIST DIESEL CRANE OPERATOR CHITO HENDRICKS M.D. Performed By: #### C MP, CBC #### [place] [address] [place] Creatinine Clr Calc Pharmacy 67.73 [facility] Comment on above: Performed By: #### C MP, CBC #### [address] Estimated GFR ( Janis > 60 [facility] Comment on above: Result Comment: GFR estimated reference range: According to KDOQI guidelines, <60 ml/min/1.73m2 is sufficient to diagnose a patient with chronic kidney disease. Performed By: #### C MP, CBC #### [place] [address] [place] Estimated GFR (Non- Am 59 [facility] Comment on above: Performed By: #### C MP, CBC #### [address] [place] [address] [place] Estimated GFR (Non- Am 58 Normal [facility] Comment on above: Performed By: #### C MP, CBC #### [facility] [address] [place] [id number] [facility] Globulin (S) [Mass/Vol] 2.8 g/dL Normal [facility] Comment on above: Performed By: #### C MP, CBC #### [facility] [address] Globulin (S) [Mass/Vol] 2.9 g/dL Normal [facility] Comment on above: Performed By: #### C MP, CBC #### [address] Glucose [Mass/Vol] 164 mg/dL High 70-100 [facility] Comment on above: Result Comment: [place] Glucose Reference Range is dependent on time and content of last meal. Glucose of more than 200 mg/dL in a nonstressed, ambulatory subject supports the diagnosis of Diabetes Mellitus. ADA recommended reference range Performed By: #### C MP, CBC #### [address] Potassium [Moles/Vol] 4.6 mmol/L Normal 3.5-5.1 [facility] Comment on above: Performed By: #### C MP, CBC #### [place] [address] [place] Protein [Mass/Vol] 6.6 g/dL Normal 6.1-7.9 [facility] Comment on above: Performed By: #### C MP, CBC #### [place] [id number] [place] Protein [Mass/Vol] 6.7 g/dL Normal 6.1-7.9 [facility] Comment on above: Performed By: #### C MP, CBC #### [facility] [address] [place] [address] [place] Sodium [Moles/Vol] 136 mmol/L Normal 136-146 [facility] Comment on above: Performed By: #### C MP, CBC #### [facility] [address] [place] [address] [place] Sodium [Moles/Vol] 135 mmol/L Low 136-146 [facility] Comment on above: Performed By: #### C MP, CBC #### [facility] [address] [place] [id number] [facility] Urea nitrogen [Mass/Vol] 15 mg/dL Normal 9-23 [facility] Comment on above: Performed By: #### C MP, CBC #### [facility] [address] Creatinine and Glomerular fi ltration rate.predicted panel (S/P/Bld)Ordered By: Kallie Chang on 08-05-2022 Creatinine [Mass/Vol] 1.03 mg/dL 0.44-1.03 [facility] Eosinophils Auto (Bld) [#/Vo l]Ordered By: Kallie Chang on 08-05-2022 Eosinophils (Bld) [#/Vol] 0.0 10*3/uL 0.0-0.45 [facility] Eosinophils/100 WBC Auto (Bl d)Ordered By: Kallie Chang on 08-05-2022 Eosinophils/100 WBC (Bld) 0.0 % . [facility] Erythrocyte distribution wid th Auto (RBC) [Ratio]Ordered By: Kallie Chang on 08-05-2022 Erythrocyte distribution width (RBC) [Ratio] 14.9 % 11.9-15.3 [facility] Estimated glomerular filtrat ion rate (GFR) non- AmericanOrdered By: Kallie Chang on 08-05-2022 GFR/1.73 sq M.predicted among non-blacks MDRD (S/P/Bld) [Vol rate/Area] 58 mL/Min [facility] Free T4 (Free Thyroxine)on 0 08-05-2022 Free T4 [Mass/Vol] 0.71 ng/dL Normal 0.61-1.12 [facility] Comment on above: Performed By: #### C MP, CBC #### [facility] [address] [place] [address] [place] Globulin Calc (S) [Mass/Vol] Ordered By: Kallie Chang on 08-05-2022 Globulin (S) [Mass/Vol] 2.9 g/dL [facility] Hematocrit Auto (Bld) [Volum e fraction]Ordered By: Kallie Chang on 08-05-2022 Hematocrit (Bld) [Volume fraction] 37.2 % 34.0-46.4 [facility] Hemoglobin [Mass/volume] in BloodOrdered By: Kallie Chang on 08-05-2022 Hemoglobin (Bld) [Mass/Vol] 12.2 g/dL 11.8-15.4 [facility] LDH Lactate Dehydrogenaseon 08-05-2022 LDH Lactate Dehydrogenase 169 U/L Normal 45-190 [facility] Comment on above: Performed By: #### C MP, CBC #### [address] Lactate dehydrogenase measur ement (enzymatic activity/volume)Ordered By: Kallie Chang on 08-05-2022 LDH (Unsp spec) [Catalytic activity/Vol] 169 U/L 45-190 [facility] Leukocytes [#/volume] correc annie for nucleated erythrocytes in Blood by Automated counOrdered By: Kallie Chang on 08-05-2022 WBC corrected for nucl RBC Auto (Bld) [#/Vol] 9.3 10*3/uL 3.8-11.6 [facility] Lymphocytes Auto (Bld) [#/Vo l]Ordered By: Kallie Chang on 08-05-2022 Lymphocytes (Bld) [#/Vol] 0.5 10*3/uL 1.00-4.8 [facility] Lymphocytes/100 WBC Auto (Bl d)Ordered By: Kallie Chang on 08-05-2022 Lymphocytes/100 WBC (Bld) 5.5 % . [facility] MCH Auto (RBC) [Entitic mass ]Ordered By: Kallie Chang on 08-05-2022 MCH (RBC) [Entitic mass] 29.8 pg 24.7-34.3 [facility] MCHC Auto (RBC) [Mass/Vol]Or dered By: Kallie Chang on 08-05-2022 MCHC (RBC) [Mass/Vol] 32.8 g/dL 32.0-35.0 [facility] MCV Auto (RBC) [Entitic vol] Ordered By: Kallie Chang on 08-05-2022 MCV (RBC) [Entitic vol] 90.9 fL 80-100 [facility] Monocytes Auto (Bld) [#/Vol] Ordered By: Kallie Chang on 08-05-2022 Monocytes (Bld) [#/Vol] 0.1 10*3/uL 0.0-0.8 [facility] Monocytes/100 WBC Auto (Bld) Ordered By: Kallie Chang on 08-05-2022 Monocytes/100 WBC (Bld) 1.4 % . [facility] Neutrophils Auto (Bld) [#/Vo l]Ordered By: Kallie Chang on 08-05-2022 Neutrophils (Bld) [#/Vol] 8.7 10*3/uL 1.8-7.7 [facility] Neutrophils/100 WBC Auto (Bl d)Ordered By: Kallie Chang on 08-05-2022 Neutrophils/100 WBC (Bld) 92.9 % . [facility] No Panel InformationOrdered By: Kallie Chang on 08-05-2022 Adrenocorticotropic Hormone <1.5 pg/mL 7.2-63.3 [facility] Comment on above: ACTH reference inter ervin for samples collected between 7 and10 AM.Performed at: [facility] [address] [id number] Director: Red Sena PhD, Phone: [phone] Estimated GFR () > 60 mL/Min [facility] Comment on above: GFR estimated refere nce range: According to KDOQI guidelines, <60 ml/min/1.73m2 is sufficient to diagnose a patient with chronic kidney disease. Pharmacy Creatinine Clearance (Chem 67.73 [facility] Nucleated erythrocytes [Pres ence] in Blood by Automated countOrdered By: Kallie Chang on 08-05-2022 Nucleated RBC Auto Ql (Bld) 0.0 /100{WBC} 0-0.5 [facility] Platelet mean volume Auto (B ld) [Entitic vol]Ordered By: Kallie Chang on 08-05-2022 Platelet mean volume (Bld) [Entitic vol] 7.1 fL 6.3-10.7 [facility] Platelets Auto (Bld) [#/Vol] Ordered By: Kallie Chang on 08-05-2022 Platelets (Bld) [#/Vol] 263 10*3/uL 150-450 [facility] Protein [Mass/volume] in Ser um or PlasmaOrdered By: Kallie Chang on 08-05-2022 Protein [Mass/Vol] 6.7 g/dL 6.1-7.9 [facility] RBC Auto (Bld) [#/Vol]Ordere d By: Kallie Chang on 08-05-2022 RBC (Bld) [#/Vol] 4.09 10*6/uL 3.60-5.00 [facility] Serum or plasma alanine napoles otransferase measurement without P-5'-P (enzymatic activiOrdered By: Kallie Chang on 08-05-2022 ALT No additional P-5'-P [Catalytic activity/Vol] 16 U/L 10-60 [facility] Serum or plasma albumin/glob ulin mass ratioOrdered By: Kallie Chang on 08-05-2022 Albumin/Globulin [Mass ratio] 1.3 {ratio} [facility] Serum or plasma alkaline zo sphatase measurement (enzymatic activity/volume)Ordered By: Kallie Chang on 08-05-2022 ALP [Catalytic activity/Vol] 89 U/L 32-92 [facility] Serum or plasma anion gap de terminationOrdered By: Kallie Chang on 08-05-2022 Anion gap [Moles/Vol] 16.6 mmol/L 6.0-15.0 [facility] Serum or plasma aspartate am inotransferase measurement (enzymatic activity/volume)Ordered By: Kallie Chang on 08-05-2022 AST [Catalytic activity/Vol] 18 U/L 10-42 [facility] Serum or plasma calcium daiana urement (mass/volume)Ordered By: Kallie Chagn on 08-05-2022 Calcium [Mass/Vol] 9.1 mg/dL 8.2-10.2 [facility] Serum or plasma chloride lizett surement (moles/volume)Ordered By: Kallie Chang on 08-05-2022 Chloride [Moles/Vol] 99 mmol/L 95-114 [facility] Serum or plasma glucose daiana urement (mass/volume)Ordered By: Kallie Chang on 08-05-2022 Glucose [Mass/Vol] 164 mg/dL 70-100 [facility] Comment on above: ADA recommended refe rence rangeRandom Glucose Reference Range is dependent on time and content of last meal. Glucose of more than 200 mg/dL in a nonstressed, ambulatory subject supports the diagnosis of Diabetes Mellitus. Serum or plasma potassium me asurement (moles/volume)Ordered By: Kallie Chang on 08-05-2022 Potassium [Moles/Vol] 4.6 mmol/L 3.5-5.1 [facility] Serum or plasma sodium measu rement (moles/volume)Ordered By: Kallie Chang on 08-05-2022 Sodium [Moles/Vol] 135 mmol/L 136-146 [facility] Serum or plasma total biliru bin measurement (mass/volume)Ordered By: Kallie Chang on 08-05-2022 Bilirubin [Mass/Vol] 0.7 mg/dL 0.3-1.2 [facility] Serum or plasma total carbon dioxide measurement (moles/volume)Ordered By: Kallie Chang on 08-05-2022 CO2 [Moles/Vol] 24.0 mmol/L 22.0-30.0 [facility] Serum or plasma urea nitroge n measurement (mass/volume)Ordered By: Kallie Chang on 08-05-2022 Urea nitrogen [Mass/Vol] 15 mg/dL 9-23 [facility] TSH DL <= 0.005 mIU/L QnOrde red By: Kallie Chang on 08-05-2022 TSH Qn 0.70 m[IU]/L 0.45-5.33 [facility] Thyroid Stimulating Hormoneo n 08-05-2022 TSH Qn 0.70 m[IU]/L Normal 0.45-5.33 [facility] Comment on above: Result Comment: PERF ORMED BY: [facility] [address] [place] [address] PATHOLOGIST DIESEL CRANE OPERATOR CHITO HENDRICKS M.D. Performed By: #### C MP, CBC #### [address] Thyroxine (T4) free [Mass/vo lume] in Serum or PlasmaOrdered By: Kallie Chang on 08-05-2022 Free T4 [Mass/Vol] 0.71 ng/dL 0.61-1.12 [facility] WBC Auto (Bld) [#/Vol]Ordere d By: Kallie Chang on 08-05-2022 WBC (Bld) [#/Vol] 9.3 10*3/uL 3.8-11.6 [facility] Adrenocorticotropic Hormone PLon 07-22-[address] <1.5 Low 7.2-63.3 [facility] Comment on above: Result Comment: ACTH reference interval for samples collected between 7 and 10 AM. Performed at: [facility] [address] [id number] Information Management Manager: Red Sena PhD, Phone: [phone] PERFORMED BY: [place] [address] PATHOLOGIST DIESEL CRANE OPERATOR CHITO HENDRICKS M.D. Performed By: #### C MP, CBC #### [address] Complete Blood Count Auto Di ffon 07-22-2022 Basophils (Bld) [#/Vol] 0.0 10*3/uL Normal 0.0-0.2 [facility] Comment on above: Result Comment: PERF ORMED BY: [place] [address] PATHOLOGIST DIESEL CRANE OPERATOR CHITO HENDRICKS M.D. Performed By: #### C BC #### [address] Basophils/100 WBC (Bld) 0.7 % Normal . [facility] Comment on above: Performed By: #### C BC #### [place] [address] [place] Eosinophils (Bld) [#/Vol] 0.1 10*3/uL Normal 0.0-0.45 [facility] Comment on above: Performed By: #### C BC #### [facility] [address] Eosinophils/100 WBC (Bld) 1.3 % Normal . [facility] Comment on above: Performed By: #### C BC #### [facility] [address] Erythrocyte distribution width (RBC) [Ratio] 13.7 % Normal 11.9-15.3 [facility] Comment on above: Performed By: #### C BC #### [facility] [address] Hematocrit (Bld) [Volume fraction] 32.7 % Low 34.0-46.4 [facility] Comment on above: Performed By: #### C BC #### [facility] [address] Hemoglobin (Bld) [Mass/Vol] 11.0 g/dL Low 11.8-15.4 [facility] Comment on above: Performed By: #### C BC #### [facility] [address] Lymphocytes (Bld) [#/Vol] 1.3 10*3/uL Normal 1.00-4.8 [facility] Comment on above: Performed By: #### C BC #### [facility] [address] Lymphocytes/100 WBC (Bld) 19.9 % Normal . [facility] Comment on above: Performed By: #### C BC #### [facility] [address] MCH (RBC) [Entitic mass] 30.1 pg Normal 24.7-34.3 [facility] Comment on above: Performed By: #### C BC #### [facility] [address] MCV (RBC) [Entitic vol] 89.6 fL Normal 80-100 [facility] Comment on above: Performed By: #### C BC #### [facility] [address] Mean Corpuscular HGB Conc 33.6 g/dL Normal 32.0-35.0 [facility] Comment on above: Performed By: #### C BC #### [facility] [address] Monocytes (Bld) [#/Vol] 0.4 10*3/uL Normal 0.0-0.8 [facility] Comment on above: Performed By: #### C BC #### [facility] [address] [place] [address] [place] Monocytes/100 WBC (Bld) 6.3 % Normal . [facility] Comment on above: Performed By: #### C BC #### [address] Neutrophils (Bld) [#/Vol] 4.6 10*3/uL Normal 1.8-7.7 [facility] Comment on above: Performed By: #### C BC #### [address] Neutrophils/100 WBC (Bld) 71.8 % Normal . [facility] Comment on above: Performed By: #### C BC #### [address] NRBC% 0.2 /100{WBC} Normal 0-0.5 [facility] Comment on above: Performed By: #### C BC #### [address] Platelet mean volume (Bld) [Entitic vol] 6.9 fL Normal 6.3-10.7 [facility] Comment on above: Performed By: #### C BC #### [place] [address] [place] Platelets (Bld) [#/Vol] 361 10*3/uL Normal 150-450 [facility] Comment on above: Performed By: #### C BC #### [place] [address] [place] RBC (Bld) [#/Vol] 3.65 10*6/uL Normal 3.60-5.00 [facility] Comment on above: Performed By: #### C BC #### [address] WBC (Bld) [#/Vol] 6.5 10*3/uL Normal 3.8-11.6 [facility] Comment on above: Performed By: #### C BC #### [address] Comprehensive Metabolic Pane arthur 07-22-2022 Albumin [Mass/Vol] 3.5 g/dL Normal 3.2-5.5 [facility] Comment on above: Performed By: #### C MP, TSH3, RAÚL, T4F #### [address] Albumin/Globulin [Mass ratio] 1.2 {ratio} Normal [facility] Comment on above: Performed By: #### C MP, TSH3, RAÚL, T4F #### [address] ALP [Catalytic activity/Vol] 71 U/L Normal 32-92 [facility] Comment on above: Performed By: #### C MP, TSH3, RAÚL, T4F #### [address] ALT [Catalytic activity/Vol] 18 U/L Normal 10-60 [facility] Comment on above: Performed By: #### C MP, TSH3, RAÚL, T4F #### [address] Anion gap [Moles/Vol] 13.0 mmol/L Normal 6.0-15.0 [facility] Comment on above: Performed By: #### C MP, TSH3, RAÚL, T4F #### [address] AST [Catalytic activity/Vol] 19 U/L Normal 10-42 [facility] Comment on above: Performed By: #### C MP, TSH3, RAÚL, T4F #### [facility] [address] Bilirubin [Mass/Vol] 0.3 mg/dL Normal 0.3-1.2 [facility] Comment on above: Performed By: #### C MP, TSH3, RAÚL, T4F #### [facility] [address] Calcium [Mass/Vol] 9.2 mg/dL Normal 8.2-10.2 [facility] Comment on above: Performed By: #### C MP, TSH3, RAÚL, T4F #### [address] Chloride [Moles/Vol] 103 mmol/L Normal 95-114 [facility] Comment on above: Performed By: #### C MP, TSH3, RAÚL, T4F #### [facility] [address] [place] [address] CO2 [Moles/Vol] 23.1 mmol/L Normal 22.0-30.0 [facility] Comment on above: Performed By: #### C MP, TSH3, RAÚL, T4F #### [address] Creatinine [Mass/Vol] 0.67 mg/dL Normal 0.44-1.03 [facility] Comment on above: Performed By: #### C MP, TSH3, RAÚL, T4F #### [facility] [address] [place] [address] [place] Creatinine Clr Calc Pharmacy 103.05 [facility] Comment on above: Performed By: #### C MP, TSH3, RAÚL, T4F #### [facility] [address] [place] [address] Estimated GFR ( Janis > 60 [facility] Comment on above: Result Comment: GFR estimated reference range: According to KDOQI guidelines, <60 ml/min/1.73m2 is sufficient to diagnose a patient with chronic kidney disease. Performed By: #### C MP, TSH3, RAÚL, T4F #### [place] [address] [place] Estimated GFR (Non- Am > 60 Normal [facility] Comment on above: Performed By: #### C MP, TSH3, RAÚL, T4F #### [facility] [address] Globulin (S) [Mass/Vol] 2.9 g/dL Normal [facility] Comment on above: Performed By: #### C MP, TSH3, RAÚL, T4F #### [facility] [address] Glucose [Mass/Vol] 93 mg/dL Normal 70-100 [facility] Comment on above: Result Comment: [facility] Glucose Reference Range is dependent on time and content of last meal. Glucose of more than 200 mg/dL in a nonstressed, ambulatory subject supports the diagnosis of Diabetes Mellitus. ADA recommended reference range Performed By: #### C MP, TSH3, RAÚL, T4F #### [address] Potassium [Moles/Vol] 4.1 mmol/L Normal 3.5-5.1 [facility] Comment on above: Performed By: #### C MP, TSH3, RAÚL, T4F #### [address] Protein [Mass/Vol] 6.4 g/dL Normal 6.1-7.9 [facility] Comment on above: Performed By: #### C MP, TSH3, RAÚL, T4F #### [address] Sodium [Moles/Vol] 135 mmol/L Low 136-146 [facility] Comment on above: Performed By: #### C MP, TSH3, RAÚL, T4F #### [facility] [address] Urea nitrogen [Mass/Vol] 10 mg/dL Normal 9-23 [facility] Comment on above: Performed By: #### C MP, TSH3, RAÚL, T4F #### [facility] [address] Cortisolon 07-22-2022 Cortisol 2.6 ug/dL Normal [facility] Comment on above: Result Comment: Refe rence range: AM 6 - 24 ug/dl PM <10 ug/dl PERFORMED BY: [place] [address] PATHOLOGIST DIESEL CRANE OPERATOR CHITO HENDRICKS M.D. Performed By: #### C MP, TSH3, RAÚL, T4F #### [facility] [address] [place] [address] Free T4 (Free Thyroxine)on 0 07-22-2022 Free T4 [Mass/Vol] 0.78 ng/dL Normal 0.61-1.12 [facility] Comment on above: Performed By: #### C MP, TSH3, RAÚL, T4F #### [address] Random cortisol measurementO rdered By: Kallie Chang on 07-22-2022 Cortisol [Mass/Vol] 2.6 ug/dL [facility] Comment on above: Reference range: AM 6 - 24 ug/dl PM <10 ug/dl Thyroid Stimulating Hormoneo n 07-22-2022 TSH Qn 1.41 m[IU]/L Normal 0.45-5.33 [facility] Comment on above: Performed By: #### C MP, TSH3, RAÚL, T4F #### [address] MR cervical spine wo conon 1 08-20-2021 MR cervical spine wo con [facility] [place] [address] [place] [address] MRI Report Signed Patient: Tenisha Hancock MR#: [id number] : 1975 Acct:[id number] Age/Sex: 47 / F ADM Date: 06/19/22 Loc: MR Room: Type: [facility] Attending Dr: Adam Vickers DO [...] Guzman Jr., D.O.06/19/2022 7:04 PM Dictation Location: [place] [address] Transcribed By: [facility] 06/19/221903 Dictated By: Jamari Guzman Jr, DO 06/19/221857 Signed By: 06/19/221903 Normal [facility] Adrenocorticotropic Hormone PLon 06-17-[address] 8.2 pg/mL Normal 7.2-63.3 [facility] Comment on above: Result Comment: ACTH reference interval for samples collected between 7 and 10 AM. Performed at: [facility] [address] [id number] Information Management Manager: Red Sena PhD, Phone: [phone] PERFORMED BY: [place] [address] PATHOLOGIST DIESEL CRANE OPERATOR CHITO HENDRICKS M.D. Performed By: #### C MP, CBC #### [address] Albumin [Mass/volume] in Ser um or PlasmaOrdered By: Kallie Chang on 06-17-2022 Albumin [Mass/Vol] 3.6 g/dL 3.2-5.5 [facility] Basophils Auto (Bld) [#/Vol] Ordered By: Kallie Chang on 06-17-2022 Basophils (Bld) [#/Vol] 0.0 10*3/uL 0.0-0.2 [facility] Basophils/100 WBC Auto (Bld) Ordered By: Kallie Chang on 06-17-2022 Basophils/100 WBC (Bld) 0.7 % . [facility] Complete Blood Count Auto Di ffon 06-17-2022 Basophils (Bld) [#/Vol] 0.0 10*3/uL Normal 0.0-0.2 [facility] Comment on above: Result Comment: PERF ORMED BY: [place] [address] PATHOLOGIST DIESEL CRANE OPERATOR CHITO HENDRICKS M.D. Performed By: #### C MP, CBC #### [address] Basophils/100 WBC (Bld) 0.7 % Normal . [facility] Comment on above: Performed By: #### C MP, CBC #### [address] Eosinophils (Bld) [#/Vol] 0.1 10*3/uL Normal 0.0-0.45 [facility] Comment on above: Performed By: #### C MP, CBC #### [address] Eosinophils/100 WBC (Bld) 2.7 % Normal . [facility] Comment on above: Performed By: #### C MP, CBC #### [address] Erythrocyte distribution width (RBC) [Ratio] 13.2 % Normal 11.9-15.3 [facility] Comment on above: Performed By: #### C MP, CBC #### [address] Hematocrit (Bld) [Volume fraction] 32.8 % Low 34.0-46.4 [facility] Comment on above: Performed By: #### C MP, CBC #### [place] [address] [place] Hemoglobin (Bld) [Mass/Vol] 10.7 g/dL Low 11.8-15.4 [facility] Comment on above: Performed By: #### C MP, CBC #### [address] Lymphocytes (Bld) [#/Vol] 0.9 10*3/uL Low 1.00-4.8 [facility] Comment on above: Performed By: #### C MP, CBC #### [address] Lymphocytes/100 WBC (Bld) 17.2 % Normal . [facility] Comment on above: Performed By: #### C MP, CBC #### [address] MCH (RBC) [Entitic mass] 29.5 pg Normal 24.7-34.3 [facility] Comment on above: Performed By: #### C MP, CBC #### [address] MCV (RBC) [Entitic vol] 90.0 fL Normal 80-100 [facility] Comment on above: Performed By: #### C MP, CBC #### [address] Mean Corpuscular HGB Conc 32.8 g/dL Normal 32.0-35.0 [facility] Comment on above: Performed By: #### C MP, CBC #### [address] Monocytes (Bld) [#/Vol] 0.5 10*3/uL Normal 0.0-0.8 [facility] Comment on above: Performed By: #### C MP, CBC #### [address] Monocytes/100 WBC (Bld) 10.3 % Normal . [facility] Comment on above: Performed By: #### C MP, CBC #### [address] Neutrophils (Bld) [#/Vol] 3.5 10*3/uL Normal 1.8-7.7 [facility] Comment on above: Performed By: #### C MP, CBC #### [address] Neutrophils/100 WBC (Bld) 69.1 % Normal . [facility] Comment on above: Performed By: #### C MP, CBC #### [facility] [address] NRBC% 0.0 /100{WBC} Normal 0-0.5 [facility] Comment on above: Performed By: #### C MP, CBC #### [address] Platelet mean volume (Bld) [Entitic vol] 7.2 fL Normal 6.3-10.7 [facility] Comment on above: Performed By: #### C MP, CBC #### [address] Platelets (Bld) [#/Vol] 241 10*3/uL Normal 150-450 [facility] Comment on above: Performed By: #### C MP, CBC #### [address] RBC (Bld) [#/Vol] 3.64 10*6/uL Normal 3.60-5.00 [facility] Comment on above: Performed By: #### C MP, CBC #### [address] WBC (Bld) [#/Vol] 5.1 10*3/uL Normal 3.8-11.6 [facility] Comment on above: Performed By: #### C MP, CBC #### [address] Comprehensive Metabolic Pane arthur 06-17-2022 Albumin [Mass/Vol] 3.6 g/dL Normal 3.2-5.5 [facility] Comment on above: Performed By: #### C BC, CMP #### [address] [address] [place] Albumin/Globulin [Mass ratio] 1.4 {ratio} Normal [facility] Comment on above: Performed By: #### C BC, CMP #### [address] ALP [Catalytic activity/Vol] 82 U/L Normal 32-92 [facility] Comment on above: Performed By: #### C BC, CMP #### [facility] [address] [place] [address] ALT [Catalytic activity/Vol] 34 U/L Normal 10-60 [facility] Comment on above: Performed By: #### C BC, CMP #### [facility] [address] [place] [address] Anion gap [Moles/Vol] 11.1 mmol/L Normal 6.0-15.0 [facility] Comment on above: Performed By: #### C BC, CMP #### [facility] [address] [place] [address] AST [Catalytic activity/Vol] 36 U/L Normal 10-42 [facility] Comment on above: Performed By: #### C BC, CMP #### [facility] [address] [place] [address] Bilirubin [Mass/Vol] 0.8 mg/dL Normal 0.3-1.2 [facility] Comment on above: Performed By: #### C BC, CMP #### [facility] [address] [place] [address] Calcium [Mass/Vol] 9.5 mg/dL Normal 8.2-10.2 [facility] Comment on above: Performed By: #### C BC, CMP #### [facility] [address] [place] [address] [place] Chloride [Moles/Vol] 101 mmol/L Normal 95-114 [facility] Comment on above: Performed By: #### C BC, CMP #### [facility] [address] [place] [address] CO2 [Moles/Vol] 24.5 mmol/L Normal 22.0-30.0 [facility] Comment on above: Performed By: #### C BC, CMP #### [facility] [address] Creatinine [Mass/Vol] 0.66 mg/dL Normal 0.44-1.03 [facility] Comment on above: Performed By: #### C BC, CMP #### [facility] [address] Creatinine Clr Calc Pharmacy 110.52 [facility] Comment on above: Result Comment: PERF ORMED BY: [facility] [address] [place] [address] PATHOLOGIST DIESEL CRANE OPERATOR CHITO HENDRICKS M.D. Performed By: #### C BC, CMP #### [facility] [address] Estimated GFR ( Janis > 60 [facility] Comment on above: Result Comment: GFR estimated reference range: According to KDOQI guidelines, <60 ml/min/1.73m2 is sufficient to diagnose a patient with chronic kidney disease. Performed By: #### C BC, CMP #### [facility] [address] Estimated GFR (Non- Am > 60 [facility] Comment on above: Performed By: #### C BC, CMP #### [facility] [address] Globulin (S) [Mass/Vol] 2.6 g/dL Normal [facility] Comment on above: Performed By: #### C BC, CMP #### [facility] [address] [address] Glucose [Mass/Vol] 94 mg/dL Normal 70-100 [facility] Comment on above: Result Comment: [place] Glucose Reference Range is dependent on time and content of last meal. Glucose of more than 200 mg/dL in a nonstressed, ambulatory subject supports the diagnosis of Diabetes Mellitus. ADA recommended reference range Performed By: #### C BC, CMP #### [facility] [address] Potassium [Moles/Vol] 3.6 mmol/L Normal 3.5-5.1 [facility] Comment on above: Performed By: #### C BC, CMP #### [facility] [address] Protein [Mass/Vol] 6.2 g/dL Normal 6.1-7.9 [facility] Comment on above: Performed By: #### C BC, CMP #### [facility] [address] Sodium [Moles/Vol] 133 mmol/L Low 136-146 [facility] Comment on above: Performed By: #### C BC, CMP #### [facility] [address] Urea nitrogen [Mass/Vol] 7 mg/dL Low 9-23 [facility] Comment on above: Performed By: #### C BC, CMP #### [facility] [address] [place] [address] Cortisolon 06-17-2022 Cortisol 0.4 ug/dL Normal [facility] Comment on above: Result Comment: Refe rence range: AM 6 - 24 ug/dl PM <10 ug/dl PERFORMED BY: [place] [address] PATHOLOGIST DIESEL CRANE OPERATOR CHITO HENDRICKS M.D. Performed By: #### C MP, CBC #### [facility] [address] [place] [address] Creatinine and Glomerular fi ltration rate.predicted panel (S/P/Bld)Ordered By: Kallie Chang on 06-17-2022 Creatinine [Mass/Vol] 0.66 mg/dL 0.44-1.03 [facility] Eosinophils Auto (Bld) [#/Vo l]Ordered By: Kallie Chang on 06-17-2022 Eosinophils (Bld) [#/Vol] 0.1 10*3/uL 0.0-0.45 [facility] Eosinophils/100 WBC Auto (Bl d)Ordered By: Kallie Chang on 06-17-2022 Eosinophils/100 WBC (Bld) 2.7 % . [facility] Erythrocyte distribution wid th Auto (RBC) [Ratio]Ordered By: Kallie Chang on 06-17-2022 Erythrocyte distribution width (RBC) [Ratio] 13.2 % 11.9-15.3 [facility] Estimated glomerular filtrat ion rate (GFR) non- AmericanOrdered By: Kallie Chang on 06-17-2022 GFR/1.73 sq M.predicted among non-blacks MDRD (S/P/Bld) [Vol rate/Area] > 60 mL/Min [facility] Free T4 (Free Thyroxine)on 08-17-2021 Free T4 [Mass/Vol] 0.43 ng/dL Low 0.61-1.12 [facility] Comment on above: Performed By: #### C MP, CBC #### [address] Globulin Calc (S) [Mass/Vol] Ordered By: Kallie Chang on 06-17-2022 Globulin (S) [Mass/Vol] 2.6 g/dL [facility] Hematocrit Auto (Bld) [Volum e fraction]Ordered By: Kallie Chang on 06-17-2022 Hematocrit (Bld) [Volume fraction] 32.8 % 34.0-46.4 [facility] Hemoglobin [Mass/volume] in BloodOrdered By: Kallie Chang on 06-17-2022 Hemoglobin (Bld) [Mass/Vol] 10.7 g/dL 11.8-15.4 [facility] Leukocytes [#/volume] correc annie for nucleated erythrocytes in Blood by Automated counOrdered By: Kallie Chang on 06-17-2022 WBC corrected for nucl RBC Auto (Bld) [#/Vol] 5.1 10*3/uL 3.8-11.6 [facility] Lymphocytes Auto (Bld) [#/Vo l]Ordered By: Kallie Chang on 06-17-2022 Lymphocytes (Bld) [#/Vol] 0.9 10*3/uL 1.00-4.8 [facility] Lymphocytes/100 WBC Auto (Bl d)Ordered By: Kallie Chang on 06-17-2022 Lymphocytes/100 WBC (Bld) 17.2 % . [facility] MCH Auto (RBC) [Entitic mass ]Ordered By: Kallie Chang on 06-17-2022 MCH (RBC) [Entitic mass] 29.5 pg 24.7-34.3 [facility] MCHC Auto (RBC) [Mass/Vol]Or dered By: Kallie Chang on 06-17-2022 MCHC (RBC) [Mass/Vol] 32.8 g/dL 32.0-35.0 [facility] MCV Auto (RBC) [Entitic vol] Ordered By: Kallie Chang on 06-17-2022 MCV (RBC) [Entitic vol] 90.0 fL 80-100 [facility] Monocytes Auto (Bld) [#/Vol] Ordered By: Kallie Chang on 06-17-2022 Monocytes (Bld) [#/Vol] 0.5 10*3/uL 0.0-0.8 [facility] Monocytes/100 WBC Auto (Bld) Ordered By: Kallie Chang on 06-17-2022 Monocytes/100 WBC (Bld) 10.3 % . [facility] Neutrophils Auto (Bld) [#/Vo l]Ordered By: Kallie Chang on 06-17-2022 Neutrophils (Bld) [#/Vol] 3.5 10*3/uL 1.8-7.7 [facility] Neutrophils/100 WBC Auto (Bl d)Ordered By: Kallie Chang on 06-17-2022 Neutrophils/100 WBC (Bld) 69.1 % . [facility] No Panel InformationOrdered By: Kallie Chang on 06-17-2022 Adrenocorticotropic Hormone 8.2 pg/mL 7.2-63.3 [facility] Comment on above: ACTH reference inter ervin for samples collected between 7 and10 AM.Performed at: [employer] [facility] [id number] Director: Red Sena PhD, Phone: [phone] Estimated GFR () > 60 mL/Min [facility] Comment on above: GFR estimated refere nce range: According to KDOQI guidelines, <60 ml/min/1.73m2 is sufficient to diagnose a patient with chronic kidney disease. Pharmacy Creatinine Clearance (Chem 110.52 [facility] Nucleated erythrocytes [Pres ence] in Blood by Automated countOrdered By: Kallie Chang on 06-17-2022 Nucleated RBC Auto Ql (Bld) 0.0 /100{WBC} 0-0.5 [facility] Platelet mean volume Auto (B ld) [Entitic vol]Ordered By: Kallie Chang on 06-17-2022 Platelet mean volume (Bld) [Entitic vol] 7.2 fL 6.3-10.7 [facility] Platelets Auto (Bld) [#/Vol] Ordered By: Kallie Chang on 06-17-2022 Platelets (Bld) [#/Vol] 241 10*3/uL 150-450 [facility] Protein [Mass/volume] in Ser um or PlasmaOrdered By: Kallie Chang on 06-17-2022 Protein [Mass/Vol] 6.2 g/dL 6.1-7.9 [facility] RBC Auto (Bld) [#/Vol]Ordere d By: Kallie Chang on 06-17-2022 RBC (Bld) [#/Vol] 3.64 10*6/uL 3.60-5.00 [facility] Random cortisol measurementO rdered By: Kallie Chang on 06-17-2022 Cortisol [Mass/Vol] 0.4 ug/dL [facility] Comment on above: Reference range: AM 6 - 24 ug/dl PM <10 ug/dl Serum or plasma alanine napoles otransferase measurement without P-5'-P (enzymatic activiOrdered By: Kallie Chang on 06-17-2022 ALT No additional P-5'-P [Catalytic activity/Vol] 34 U/L 10-60 [facility] Serum or plasma albumin/glob ulin mass ratioOrdered By: Kallie Chang on 06-17-2022 Albumin/Globulin [Mass ratio] 1.4 {ratio} [facility] Serum or plasma alkaline zo sphatase measurement (enzymatic activity/volume)Ordered By: Kallie Chang on 06-17-2022 ALP [Catalytic activity/Vol] 82 U/L 32-92 [facility] Serum or plasma anion gap de terminationOrdered By: Kallie Chang on 06-17-2022 Anion gap [Moles/Vol] 11.1 mmol/L 6.0-15.0 [facility] Serum or plasma aspartate am inotransferase measurement (enzymatic activity/volume)Ordered By: Kallie Chang on 06-17-2022 AST [Catalytic activity/Vol] 36 U/L 10-42 [facility] Serum or plasma calcium daiana urement (mass/volume)Ordered By: Kallie Chang on 06-17-2022 Calcium [Mass/Vol] 9.5 mg/dL 8.2-10.2 [facility] Serum or plasma chloride lizett surement (moles/volume)Ordered By: Kallie Chang on 06-17-2022 Chloride [Moles/Vol] 101 mmol/L 95-114 [facility] Serum or plasma glucose daiana urement (mass/volume)Ordered By: Kallie Chang on 06-17-2022 Glucose [Mass/Vol] 94 mg/dL 70-100 [facility] Comment on above: ADA recommended refe rence rangeRandom Glucose Reference Range is dependent on time and content of last meal. Glucose of more than 200 mg/dL in a nonstressed, ambulatory subject supports the diagnosis of Diabetes Mellitus. Serum or plasma potassium me asurement (moles/volume)Ordered By: Kallie Chang on 06-17-2022 Potassium [Moles/Vol] 3.6 mmol/L 3.5-5.1 [facility] Serum or plasma sodium measu rement (moles/volume)Ordered By: Kallie Chang on 06-17-2022 Sodium [Moles/Vol] 133 mmol/L 136-146 [facility] Serum or plasma total biliru bin measurement (mass/volume)Ordered By: Kallie Chang on 06-17-2022 Bilirubin [Mass/Vol] 0.8 mg/dL 0.3-1.2 [facility] Serum or plasma total carbon dioxide measurement (moles/volume)Ordered By: Kallie Chang on 06-17-2022 CO2 [Moles/Vol] 24.5 mmol/L 22.0-30.0 [facility] Serum or plasma urea nitroge n measurement (mass/volume)Ordered By: Kallie Chang on 06-17-2022 Urea nitrogen [Mass/Vol] 7 mg/dL 9-23 [facility] TSH DL <= 0.005 mIU/L QnOrde red By: Kallie Chang on 06-17-2022 TSH Qn 2.66 m[IU]/L 0.45-5.33 [facility] Thyroid Stimulating Hormoneo n 06-17-2022 TSH Qn 2.66 m[IU]/L Normal 0.45-5.33 [facility] Comment on above: Performed By: #### C MP, CBC #### [facility] [address] [place] [address] Thyroxine (T4) free [Mass/vo lume] in Serum or PlasmaOrdered By: Kallie Bernardo on 06-17-2022 Free T4 [Mass/Vol] 0.43 ng/dL 0.61-1.12 [facility] WBC Auto (Bld) [#/Vol]Ordere d By: Kallie Mariese on 06-17-2022 WBC (Bld) [#/Vol] 5.1 10*3/uL 3.8-11.6 [facility] Adrenocorticotropic Hormone PLon 05-27-[address] 14.9 pg/mL Normal 7.2-63.3 [facility] Comment on above: Result Comment: ACTH reference interval for samples collected between 7 and 10 AM. Performed at: [facility] [address] [id number] Information Management Manager: Red Sena PhD, Phone: [phone] PERFORMED BY: [address] [place] [address] PATHOLOGIST DIESEL CRANE OPERATOR CHITO HENDRICKS M.D. Performed By: #### C BC, CMP #### [facility] [address] [place], [place] [id number] [facility] Complete Blood Count Auto Di ffon 05-27-2022 Basophils (Bld) [#/Vol] 0.0 10*3/uL Normal 0.0-0.2 [facility] Comment on above: Result Comment: PERF ORMED BY: [address] [place] [address] PATHOLOGIST DIESEL CRANE OPERATOR CHITO HENDRICKS M.D. Performed By: #### C MP, CBC #### [facility] [address] [place] [address] [place] Basophils/100 WBC (Bld) 0.6 % Normal . [facility] Comment on above: Performed By: #### C MP, CBC #### [facility] [address] [place] [address] [place] Eosinophils (Bld) [#/Vol] 0.3 10*3/uL Normal 0.0-0.45 [facility] Comment on above: Performed By: #### C MP, CBC #### [facility] [address] [place] [address] [place] Eosinophils/100 WBC (Bld) 5.8 % Normal . [facility] Comment on above: Performed By: #### C MP, CBC #### [address] Erythrocyte distribution width (RBC) [Ratio] 13.3 % Normal 11.9-15.3 [facility] Comment on above: Performed By: #### C MP, CBC #### [place] [address] [place] Hematocrit (Bld) [Volume fraction] 31.2 % Low 34.0-46.4 [facility] Comment on above: Performed By: #### C MP, CBC #### [place] [address] [place] Hemoglobin (Bld) [Mass/Vol] 10.5 g/dL Low 11.8-15.4 [facility] Comment on above: Performed By: #### C MP, CBC #### [facility] [address] [place] [address] [place] Lymphocytes (Bld) [#/Vol] 1.0 10*3/uL Normal 1.00-4.8 [facility] Comment on above: Performed By: #### C MP, CBC #### [facility] [address] [place] [address] [place] Lymphocytes/100 WBC (Bld) 19.1 % Normal . [facility] Comment on above: Performed By: #### C MP, CBC #### [facility] [address] MCH (RBC) [Entitic mass] 30.4 pg Normal 24.7-34.3 [facility] Comment on above: Performed By: #### C MP, CBC #### [facility] [address] MCV (RBC) [Entitic vol] 90.1 fL Normal 80-100 [facility] Comment on above: Performed By: #### C MP, CBC #### [facility] [address] Mean Corpuscular HGB Conc 33.7 g/dL Normal 32.0-35.0 [facility] Comment on above: Performed By: #### C MP, CBC #### [facility] [address] Monocytes (Bld) [#/Vol] 0.4 10*3/uL Normal 0.0-0.8 [facility] Comment on above: Performed By: #### C MP, CBC #### [facility] [address] [place] [address] [place] Monocytes/100 WBC (Bld) 8.4 % Normal . [facility] Comment on above: Performed By: #### C MP, CBC #### [facility] [address] Neutrophils (Bld) [#/Vol] 3.5 10*3/uL Normal 1.8-7.7 [facility] Comment on above: Performed By: #### C MP, CBC #### [facility] [address] [place] [address] [place] Neutrophils/100 WBC (Bld) 66.1 % Normal . [facility] Comment on above: Performed By: #### C MP, CBC #### [facility] [address] [place] [address] [place] Nucleated RBC/100 WBC (Bld) [Ratio] 0.1 % Normal 0-0.5 [facility] Comment on above: Performed By: #### C MP, CBC #### [facility] [address] [place] [address] Platelet mean volume (Bld) [Entitic vol] 7.4 fL Normal 6.3-10.7 [facility] Comment on above: Performed By: #### C MP, CBC #### [facility] [address] [place] [address] Platelets (Bld) [#/Vol] 278 10*3/uL Normal 150-450 [facility] Comment on above: Performed By: #### C MP, CBC #### [address] RBC (Bld) [#/Vol] 3.46 10*6/uL Low 3.60-5.00 [facility] Comment on above: Performed By: #### C MP, CBC #### [address] WBC (Bld) [#/Vol] 5.2 10*3/uL Normal 4.5-11.0 [facility] Comment on above: Performed By: #### C MP, CBC #### [address] Comprehensive Metabolic Pane arthur 05-27-2022 Albumin [Mass/Vol] 3.2 g/dL Normal 3.2-5.5 [facility] Comment on above: Performed By: #### C MP, CBC #### [facility] [address] [place] [address] Albumin/Globulin [Mass ratio] 1.3 {ratio} Normal [facility] Comment on above: Performed By: #### C MP, CBC #### [address] ALP [Catalytic activity/Vol] 56 U/L Normal 32-92 [facility] Comment on above: Performed By: #### C MP, CBC #### [address] ALT [Catalytic activity/Vol] 28 U/L Normal 10-60 [facility] Comment on above: Performed By: #### C MP, CBC #### [facility] [address] [place] [id number] [place] Anion gap [Moles/Vol] 9.8 mmol/L Normal 6.0-15.0 [facility] Comment on above: Performed By: #### C MP, CBC #### [facility] [address] AST [Catalytic activity/Vol] 31 U/L Normal 10-42 [facility] Comment on above: Performed By: #### C MP, CBC #### [facility] [address] Bilirubin [Mass/Vol] 0.5 mg/dL Normal 0.3-1.2 [facility] Comment on above: Performed By: #### C MP, CBC #### [facility] [address] Calcium [Mass/Vol] 9.3 mg/dL Normal 8.2-10.2 [facility] Comment on above: Performed By: #### C MP, CBC #### [facility] [address] [place] [address] [place] Chloride [Moles/Vol] 102 mmol/L Normal 95-114 [facility] Comment on above: Performed By: #### C MP, CBC #### [facility] [address] CO2 [Moles/Vol] 26.7 mmol/L Normal 22.0-30.0 [facility] Comment on above: Performed By: #### C MP, CBC #### [facility] [address] [place] [address] [place] Creatinine [Mass/Vol] 0.69 mg/dL Normal 0.44-1.03 [facility] Comment on above: Performed By: #### C MP, CBC #### [facility] [address] [place] [address] [place] Creatinine Clr Calc Pharmacy 109.79 Normal [facility] Comment on above: Result Comment: PERF ORMED BY: [place] [address] PATHOLOGIST DIESEL CRANE OPERATOR CHITO HENDRICKS M.D. Performed By: #### C MP, CBC #### [address] Estimated GFR ( Janis > 60 Normal [facility] Comment on above: Result Comment: GFR estimated reference range: According to KDOQI guidelines, <60 ml/min/1.73m2 is sufficient to diagnose a patient with chronic kidney disease. Performed By: #### C MP, CBC #### [address] Estimated GFR (Non- Am > 60 Normal [facility] Comment on above: Performed By: #### C MP, CBC #### [address] Globulin (S) [Mass/Vol] 2.5 g/dL Normal [facility] Comment on above: Performed By: #### C MP, CBC #### [address] Glucose [Mass/Vol] 113 mg/dL High 70-100 [facility] Comment on above: Result Comment: [place] Glucose Reference Range is dependent on time and content of last meal. Glucose of more than 200 mg/dL in a nonstressed, ambulatory subject supports the diagnosis of Diabetes Mellitus. ADA recommended reference range Performed By: #### C MP, CBC #### [address] Potassium [Moles/Vol] 3.5 mmol/L Normal 3.5-5.1 [facility] Comment on above: Performed By: #### C MP, CBC #### [address] Protein [Mass/Vol] 5.7 g/dL Low 6.1-7.9 [facility] Comment on above: Performed By: #### C MP, CBC #### [address] Sodium [Moles/Vol] 135 mmol/L Low 136-146 [facility] Comment on above: Performed By: #### C MP, CBC #### [address] Urea nitrogen [Mass/Vol] 9 mg/dL Normal 9-23 [facility] Comment on above: Performed By: #### C MP, CBC #### [address] Cortisolon 05-27-2022 Cortisol 0.8 ug/dL Normal [facility] Comment on above: Result Comment: Refe rence range: AM 6 - 24 ug/dl PM <10 ug/dl PERFORMED BY: [place] [address] PATHOLOGIST DIESEL CRANE OPERATOR CHITO HENDRICKS M.D. Performed By: #### C BC, CMP #### [address] Free T4 (Free Thyroxine)on 07-27-2021 Free T4 [Mass/Vol] 0.46 ng/dL Low 0.61-1.12 [facility] Comment on above: Performed By: #### C BC, CMP #### [address] Laboratory - Hematology and Cell countsOrdered By: Kallie Chang on 05-27-2022 Nucleated RBC/100 WBC (Bld) [Ratio] 0.1 % 0-0.5 [facility] No Panel InformationOrdered By: Kallie Chang on 05-27-2022 Adrenocorticotropic Hormone 14.9 pg/mL 7.2-63.3 [facility] Comment on above: ACTH reference inter ervin for samples collected between 7 and10 AM.Performed at: - [facility] [id number] Director: Red Sena PhD, Phone: [phone] Thyroid Stimulating Hormoneo n 05-27-2022 TSH Qn 1.89 m[IU]/L Normal 0.45-5.33 [facility] Comment on above: Performed By: #### C BC, CMP #### [address] HCG ( test) IA.rapi d Ql (U)Ordered By: Stacie Thomas on 04-16-2022 HCG ( test) Ql (U) Negative [facility] PAP ACOG PANEL 2: 30 to 65on 04-16-2022 . . Normal [facility] Comment on above: Result Comment: Perf ormed at: WB Performed By: #### [id number] #### [facility] [address] [address] [address] Lilly Varner Age Gdln ACOG Testing - Normal [facility] Comment on above: Performed By: #### [id number] #### [facility] [address] [address] [address] Lilly Varner DIAGNOSIS: Comment [facility] Comment on above: Result Comment: NEGA TIVE FOR INTRAEPITHELIAL LESION OR MALIGNANCY. THIS SPECIMEN WAS RESCREENED PART OF OUR BUSINESS DEVELOPMENT RECRUITER PROGRAM. Performed at: WB Performed By: #### [id number] #### [facility] [address] [address] [address] Lilly Varner HPV Aptima Positive Abnormal Negative [facility] Comment on above: Result Comment: This nucleic acid amplification test detects fourteen high-risk HPV types (16,18,31,33,35,39,45,51,52,56,58,59,66,68) without differentiation. Performed at: =G Performed By: #### [id number] #### [facility] [address] [address] [address] Lilly Varner HPV Genotype 16 Negative Normal Negative [facility] Comment on above: Result Comment: Perf ormed at: =G Performed By: #### [id number] #### [facility] [address] [place] [address] [address] Lilly Varner HPV Genotype 18,45 Positive Abnormal Negative [facility] Comment on above: Result Comment: Perf ormed at: =G Performed By: #### [id number] #### [facility] [address] [address] [address] Lilly Varner Methodology: Comment Normal [facility] Comment on above: Result Comment: This liquid based ThinPrep(R) pap test was screened with the use of an image guided system. Performed at: WB Performed By: #### [id number] #### [facility] [address] [place] [address] Dr. Lilly Varner Note: Comment Normal [facility] Comment on above: Result Comment: The Pap smear is a screening test designed to aid in the detection of premalignant and malignant conditions of the uterine cervix. It is not a diagnostic procedure and should not be used as the sole means of detecting cervical cancer. Both false-positive and false-negative reports do occur. . Performed at: WB Performed By: #### [id number] #### [facility] [address] [place] [address] Dr. Lilly Varner Performed by: Comment Normal [facility] Comment on above: Result Comment: Nickie Ford, Software Sales Manager (ASCP) Performed at: WB Performed By: #### [id number] #### [facility] [address] [place] [address] Dr. Lilly Varner QC reviewed by: Comment Normal [facility] Comment on above: Result Comment: Dequan Plaza, Supervisory Software Sales Manager (ASCP) Performed at: WB Performed By: #### [id number] #### [facility] [address] [place] [address] Dr. Lilly Varner Specimen adequacy: Comment Normal [facility] Comment on above: Result Comment: Sati sfactory for evaluation. Endocervical and/or squamous metaplastic cells (endocervical component) are present. Performed at: WB Performed By: #### [id number] #### [facility] [address] [place] [address] Dr. Lilly Varner XR DEXA BONE DENSITYon [...] by: KRISTA ROBERTSON Date: 2022-04-14 17:25 Normal [facility] VIT D 25-OH LABCORPon 2021 Vitamin D, 25-Hydroxy 19.5 ng/mL Critically low 30.0-100.0 [facility] Comment on above: Result Comment: [place] min D deficiency has been defined by the [place] of [employer] and an Endocrine Society practice guideline as a level of serum 25-OH vitamin D less than 20 ng/mL (1,2). The Endocrine Society went on to further define vitamin D insufficiency as a level between 21 and 29 ng/mL (2). 1. IOM ([place] of [employer]). 2010. Dietary reference intakes for calcium and D. [place]: The National Academies Press. 2. Lorena MF, Art [place], Eleazar SPENCE, et al. Evaluation, treatment, and prevention of vitamin D deficiency: an Endocrine Society clinical practice guideline. JCEM. 2010; 96(7):1911-30. Performed By: #### V ITADLC #### [facility] [address] [place] [address] Dr. Lilly Varner CBC AUTO DIFFon 2022 BASO # 0.0 103/ul Normal 0.0-0.1 [facility] Comment on above: Performed By: #### C BC #### [facility] [address] [place] [address] Dr. Lilly Varner Basophils/100 WBC (Bld) 0.5 % Normal 0.2-2.0 [facility] Comment on above: Performed By: #### C BC #### [facility] [address] [place] [address] Dr. Lilly Varner EO # 0.5 103/ul Normal 0.0-0.7 [facility] Comment on above: Performed By: #### C BC #### [facility] [address] [place] [address] Dr. Lilly Varner Eosinophils/100 WBC (Bld) 6.4 % Normal 0.9-7.0 [facility] Comment on above: Performed By: #### C BC #### [facility] [address] [place] [address] Dr. Lilly Varner Erythrocyte distribution width (RBC) [Ratio] 13.0 % Normal 11.0-15.0 [facility] Comment on above: Performed By: #### C BC #### [facility] [address] [place] [address] Dr. Lilly Varner Hematocrit (Bld) [Volume fraction] 40.1 % Normal 36.0-48.0 [facility] Comment on above: Performed By: #### C BC #### [facility] [address] [place] [address] Dr. Lilly Varner Hemoglobin (Bld) [Mass/Vol] 12.7 g/dL Normal 12.0-16.0 [facility] Comment on above: Performed By: #### C BC #### [facility] [address] [place] [address] Dr. Lilly Varner IG # 0.04 10e3/ul Critically high 0.00-0.[address] [facility] Comment on above: Performed By: #### C BC #### [facility] [address] [place] [address] Dr. Lilly Varner IG % 0.5 % Normal 0.0-0.5 [facility] Comment on above: Performed By: #### C BC #### [facility] [address] [place] [address] Dr. Lilly Varner LYMPH # 2.0 103/ul Normal 1.2-3.8 [facility] Comment on above: Performed By: #### C BC #### [facility] [address] [place] [address] Dr. Lilly Varner Lymphocytes/100 WBC (Bld) 24.3 % Normal 20.5-60.0 [facility] Comment on above: Performed By: #### C BC #### [facility] [address] [place] [address] Dr. Lilly Varner MANUAL DIFF REQ NO Normal [facility] Comment on above: Performed By: #### C BC #### [facility] [address] [address] [address] Lilly Varner MCH (RBC) [Entitic mass] 30.3 pg Normal 26.7-34.0 [facility] Comment on above: Performed By: #### C BC #### [facility] [address] [address] [address] Lilly Varner MCHC (RBC) [Mass/Vol] 31.7 g/dL Normal 29.9-35.2 [facility] Comment on above: Performed By: #### C BC #### [facility] [address] [place] [address] Dr. Lilly Varner MCV (RBC) [Entitic vol] 95.7 fL Normal 81.0-99.0 [facility] Comment on above: Performed By: #### C BC #### [facility] [address] [place] [address] Dr. Lilly Varner MONO # 0.5 103/ul Normal 0.3-0.8 [facility] Comment on above: Performed By: #### C BC #### [facility] [address] [place] [address] Dr. Lilly Varner Monocytes/100 WBC (Bld) 5.7 % Normal 1.7-12.0 [facility] Comment on above: Performed By: #### C BC #### [facility] [address] [place] [address] Dr. Lilly Varner NEUT # 5.1 103/ul Normal 1.4-6.5 [facility] Comment on above: Performed By: #### C BC #### [facility] [address] [place] [address] Dr. Lilly Varner Neutrophils/100 WBC (Bld) 62.6 % Normal 43.0-75.0 [facility] Comment on above: Performed By: #### C BC #### [facility] [address] [place] [address] Dr. Lilly Varner Platelet mean volume (Bld) [Entitic vol] 8.6 fL Critically low 9.5-13.5 [facility] Comment on above: Performed By: #### C BC #### [facility] [address] [address] [address] Lilly Varner PLT 279 103/ul Normal 150-450 [facility] Comment on above: Performed By: #### C BC #### [facility] [address] [address] [address] Lilly Varner RBC 4.19 106/ul Critically low 4.20-5.40 [facility] Comment on above: Performed By: #### C BC #### [facility] [address] [address] [address] Lilly Varner WBC 8.2 103/ul Normal 4.0-11.0 [facility] Comment on above: Performed By: #### C BC #### [facility] [address] [address] [address] Lilly Varner GLYCOHEMOGLOBIN A1Con 2021 ADA RECOMMENDATION SEE BELOW Normal [facility] Comment on above: Result Comment: ADA RECOMMENDED LIMIT 4.0 - 6.0 ADA THERAPEUTIC TARGET < 7.0 ACTION SUGGESTED > 7.0 Performed By: #### A 1C ####[facility] [id number] [address]Dr. Lilly Varner Glucose [Mass/Vol] 128 mg/dL Normal [facility] Comment on above: Performed By: #### A 1C ####[facility] [id number] [address]Dr. Lilly Varner HbA1c (Bld) [Mass fraction] 6.1 % Normal 4.5-6.2 [facility] Comment on above: Performed By: #### A 1C ####[facility] [id number] [address]Dr. Lilly Varner LIPID PROFILEon 2022 CHOL-HDL RATIO NORM SEE BELOW Normal [facility] Comment on above: Result Comment: 3.3 - 4.4 LOW RISK 4.4 - 7.1 AVERAGE RISK 7.1 - 11.0 MODERATE RISK >11.0 HIGH RISK Performed By: #### C MP, TSH, LIPID #### [facility] [address] [address] [address] Lilly Varner Cholesterol [Mass/Vol] 291 mg/dL Critically high <=200 [facility] Comment on above: Performed By: #### C MP, TSH, LIPID #### [facility] [address] [address] [address] Lilly Varner Cholesterol in HDL [Mass/Vol] 60 mg/dL Normal 40-60 [facility] Comment on above: Performed By: #### C MP, TSH, LIPID #### [facility] [address] [address] [address] Lilly Varner Cholesterol in LDL [Mass/Vol] 209.6 mg/dL Normal [facility] Comment on above: Performed By: #### C MP, TSH, LIPID #### [facility] [address] [address] [address] Lilly Varner Cholesterol.total/Cholest caro in HDL [Mass ratio] 4.9 {ratio} Normal [facility] Comment on above: Performed By: #### C MP, TSH, LIPID #### [facility] [address] [address] [address] Lilly Varner HDL NORMAL > or = 60 mg/dl - LO W CARDIOVASCULAR RISK <40 mg/dl - HIGH CARDIOVASCULAR RISK Normal [facility] Comment on above: Performed By: #### C MP, TSH, LIPID #### [facility] [address] [address] [address] Lilly Varner LDL CALC NORMAL SEE BELOW Normal [facility] Comment on above: Result Comment: <100 mg/dl OPTIMAL 100 - 129 mg/dl NEAR OR ABOVE OPTIMAL 130 - 159 mg/dl BORDERLINE HIGH 160 - 189 mg/dl HIGH >190 mg/dl VERY HIGH Performed By: #### C MP, TSH, LIPID #### [facility] [address] [address] [address] Lilly Varner Triglyceride [Mass/Vol] 107 mg/dL Normal <=150 [facility] Comment on above: Performed By: #### C MP, TSH, LIPID #### [facility] [address] [address] [address] Lilly Varner VLDL CALC 21.4 mg/dL Normal [facility] Comment on above: Performed By: #### C MP, TSH, LIPID #### [facility] [address] [address] [address] Lilly Varner PROF 14(COMP METB)on 022 Albumin [Mass/Vol] 3.9 g/dL Normal 3.4-5.0 [facility] Comment on above: Performed By: #### C MP, TSH, LIPID #### [facility] [address] [address] [address] Lilly Varner Albumin/Globulin [Mass ratio] 1.1 {ratio} Normal [facility] Comment on above: Performed By: #### C MP, TSH, LIPID #### [facility] [address] [place] [address] Dr. Lilly Varner ALP [Catalytic activity/Vol] 103 U/L Normal 46-116 [facility] Comment on above: Performed By: #### C MP, TSH, LIPID #### [facility] [address] [place] [address] Dr. Lilly Varner ALT [Catalytic activity/Vol] 44 U/L Normal 14-59 [facility] Comment on above: Performed By: #### C MP, TSH, LIPID #### [facility] [address] [place] [address] Dr. Lilly Varner Anion gap [Moles/Vol] 12.7 mmol/L Normal [facility] Comment on above: Performed By: #### C MP, TSH, LIPID #### [facility] [address] [place] [address] Dr. Lilly Varner AST [Catalytic activity/Vol] 24 U/L Normal 15-37 [facility] Comment on above: Performed By: #### C MP, TSH, LIPID #### [facility] [address] [place] [address] Dr. Lilly Varner Bilirubin [Mass/Vol] 0.4 mg/dL Normal 0.2-1.0 [facility] Comment on above: Performed By: #### C MP, TSH, LIPID #### [facility] [address] [address] [address] Lilly Varner Calcium [Mass/Vol] 9.1 mg/dL Normal 8.5-10.1 [facility] Comment on above: Performed By: #### C MP, TSH, LIPID #### [facility] [address] [address] [address] Lilly Varner Chloride [Moles/Vol] 104 mmol/L Normal 98-107 [facility] Comment on above: Performed By: #### C MP, TSH, LIPID #### [facility] [address] [address] [address] Lilyl Varner CO2 [Moles/Vol] 28.4 mmol/L Normal 21.0-32.0 [facility] Comment on above: Performed By: #### C MP, TSH, LIPID #### [facility] [address] [place] [address] Dr. Lilly Varner Creatinine [Mass/Vol] 0.75 mg/dL Normal 0.55-1.02 [facility] Comment on above: Performed By: #### C MP, TSH, LIPID #### [facility] [address] [place] [address] Dr. Lilly Varner EGFR-AF NIGERIAN >60 Normal >=60 [facility] Comment on above: Performed By: #### C MP, TSH, LIPID #### [facility] [address] [place] [address] Dr. Lilly Varner EGFR-NON AF NIGERIAN >60 Normal >=60 [facility] Comment on above: Performed By: #### C MP, TSH, LIPID #### [facility] [address] [place] [address] Dr. Lilly Varner Globulin (S) [Mass/Vol] 3.7 g/dL Normal [facility] Comment on above: Performed By: #### C MP, TSH, LIPID #### [facility] [address] [place] [address] Dr. Lilly Varner Glucose [Mass/Vol] 98 mg/dL Normal 74-106 [facility] Comment on above: Performed By: #### C MP, TSH, LIPID #### [facility] [address] [place] [address] Dr. Lilly Varner Potassium [Moles/Vol] 4.1 mmol/L Normal 3.5-5.1 [facility] Comment on above: Performed By: #### C MP, TSH, LIPID #### [facility] [address] [place] [address] Dr. Lilly Varner Protein [Mass/Vol] 7.6 g/dL Normal 6.4-8.2 [facility] Comment on above: Performed By: #### C MP, TSH, LIPID #### [facility] [address] [place] [address] Dr. Lilly Varner Sodium [Moles/Vol] 141 mmol/L Normal 136-145 [facility] Comment on above: Performed By: #### C MP, TSH, LIPID #### [facility] [address] [place] [address] Dr. Lilly Varner Urea nitrogen [Mass/Vol] 16.0 mg/dL Normal 7.0-18.0 [facility] Comment on above: Performed By: #### C MP, TSH, LIPID #### [facility] [address] [place] [address] Dr. Lilly Varner Urea nitrogen/Creatinine [Mass ratio] 21.3 mg/mg Normal [facility] Comment on above: Performed By: #### C MP, TSH, LIPID #### [facility] [address] [place] [address] Dr. Lilly Varner TSHon 2022 TSH 1.280 uIU/mL Normal 0.358-3.74 0 [facility] Comment on above: Performed By: #### C MP, TSH, LIPID #### [facility] [address] [place] [address] Dr. Lilly Varner Covid-19 PCR ([facility]on 02-17 SARS-CoV-2 (COVID-19) RNA SHILPI+probe Ql (Unsp spec) Detected Critically abnormal NOT DETECTED [facility] Comment on above: Result Comment: This test is not yet approved or cleared by the [place] FDA. When there are no FDA-approved or cleared tests available, and other criteria are met, FDA can make tests available under an emergency access mechanism called an Emergency Use Authorization (EUA). The EUA for this test is supported by the Solar Sales Manager of Health and Human Service's declaration that [...] longer be used). Performed By: #### C [facility] #### [facility] [address] [place] [address] Dr. 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 SEE COMMENT. -- Diagnosis Comment -- By report HER2 IHC is negative (1+). Krista Coto M.D. Electronically Signed Out magda/02/19/2022 Clinical Information Operative Findings: RIGHT BREAST 6:00 MASS AND CALCIFICATIONS Operation Performed: US GUIDED CORE BIOPSY OF BREAST Source of Specimen A: OUTSIDE SLIDES Gross Description Received from [facility] Department of Pathology are 6 slides labelled, [id number], TENISHA HANCOCK, for consultation at the request [...] 1410 OUTSIDE CONSULTATION Patient Name: TENISHA HANCOCK [facility] Rec: [id number] Path Number: [id number] [facility] [employer] [facility] ANATOMIC PATHOLOGY [address] [place] [id number] [facility] Comment on above: Performed By: #### P PPVOC #### [facility] [employer] [address] [place] [address] [id number] Information Management Manager: Rico Melo MD [facility] BREAST SPECIMENon 2021 [facility] BREAST SPECIMEN EXAMINATION: SPECIMEN RADIOGRAPH 02/17/2022 [...] Gage Eng MD 02/17/22 Final result Normal [facility] Specimen radiograph demonstrates inclusion of the targeted microcalcifications and biopsy clip Findings discussed with Dr. Murguia in person at 12:55pm on 02/17/2022 [facility] EXAMINATION: SPECIMEN RADIOGRAPH 02/17/2022 [...] coordinates are A3. Wire tip is intact. [facility] [employer] Work Phone: Radiology Study observation (narrative) [facility] JOHN RUIZ [employer] Phone: WILLIE NEEDLE BREAST LOCALIZATI ON RIGHTon [...] Gage Eng MD 02/17/22 Final result Normal [facility] WILLIE NEEDLE LOCALIZATION [facility] Ton 02-17-2022 Mammographic wire localization of biopsy clip and associated microcalcifications, as described. No residual mammographic mass. [facility] RIS CONSOLIDATED EXAMINATION: MAMMOGRAPHIC GUIDED NEEDLE [...] the wire. No significant residual mammographic mass. [facility] Radiology Study observation (narrative) [employer] Work Phone: WILLIE NEEDLE LOCALIZATION RIGH TOrdered By: Gage Eng on 02-17-2022 [employer] Work Phone: [place] LYMPHOSCINTIGRAMon 2021 NM LYMPHOSCINTIGRAM [...] Gage Eng MD 02/17/22 Final result Normal [facility] Prompt identificatio n of sentinel lymph node in the right axilla. [facility] EXAMINATION: LYMPHOSCINTIGRAPHY (INJECTION AND IMAGES) 02/17/2022 [...] ?->No Reason for Exam: Right Breast CA [facility] Gage Eng MD - 02/17/2022 EXAMINATION: [...] lymph node in the right axilla. [employer] Phone: Radiology Study observation (narrative) [employer] Phone: [place] LYMPHOSCINTIGRAMOrdered B y: Gage Eng on 02-17-2022 [email or web address] Phone: Surgical Pathologyon 022 Surgical Pathology (NOTE) -- Diagnosis -- A. RIGHT AXILLARY SENTINEL LYMPH NODES, EXCISIONAL BIOPSIES: - NEGATIVE FOR MALIGNANCY (0/5). B. 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 Cassette summary: 1-26 component 1 sales representative consultant submitted from lateral to medial with all margins perpendicular except medial which is en face in 1 and medial is perpendicular in 25-26, biopsy site is in region of 24-26 and obvious dense fibrous tissue submitted in entirety (all six margins are represented), 27-35 component 2 in entirety, new margin perpendicular. tm Intraoperative Diagnosis A. FS DX: Negative for malignancy on frozen sections. ([facility], 02/17/22) Microscopic Description A, B. [...] sentinel lymp (more content not included)... Normal [facility] Comment on above: Performed By: #### P PPVS #### [facility] [employer] [address] [place] [address] Information Management Manager: Rico Melo MD MRI BREAST BILATERAL W [...] right mammogram of [address] [facility]. Other right mammogram of June 2021 at an outside facility is not available. HISTORY: ORDERING SYSTEM PROVIDED HISTORY: Malignant neoplasm of right female breast, unspecified estrogen receptor status, unspecified site of breast (HCC) TECHNOLOGIST PROVIDED HISTORY: STAT Creatinine as needed:->Yes Last MRI done at [facility] in [place]. Result scanned in Media Reason for Exam: Last MRI done at [facility] in [place]. Result scanned in Media , Malign Additional signs and symptoms: Last MRI done at [facility] in [place]. Result scanned in Media , Malignant neoplasm [...] Ashlie Fofana MD 02/04/22 Final result Normal [facility] 1. Area of 9 x 6 [...] OVERALL ASSESSMENT - KNOWN BIOPSY PROVEN MALIGNANCY. [facility] RIS CONSOLIDATED EXAMINATION: MRI OF THE [...] right mammogram of [address] [facility]. Other right mammogram of June 2021 at an outside facility is not available. HISTORY: ORDERING SYSTEM PROVIDED HISTORY: Malignant neoplasm of right female breast, unspecified estrogen receptor status, unspecified site of breast (HCC) TECHNOLOGIST PROVIDED HISTORY: STAT Creatinine as needed:->Yes Last MRI done at [facility] in [place]. Result scanned in Media Reason for Exam: Last MRI done at [facility] in [place]. Result scanned in Media , Malign Additional signs and symptoms: Last MRI done at [facility] in [place]. Result scanned in Media , Malignant neoplasm [...] abnormal signal intensity or contrast enhancement noted. [facility] Radiology Study observation (narrative) [employer] Work Phone: MRI BREAST BILATERAL W WO CO NTRASTOrdered By: Ashlie Fofana on 02-04-2022 Interpretation and review of laboratory results Abnormal [employer] Work Phone: CORKY WELCH [employer] Work Phone: Aamir 01-29-2022 CNPN Telephone (BRCRAV) TENISHA HANCOCK ([id number]) 1975 F DEF Date Time Provider Department [...] Encounter Status:Closed by NAT RICKETTS on 02/02/22 [facility] 01-15-2022 CNOV Office Visit (PLASMN ) TENISHA HANCOCK ([id number]) 1975 F DEF Date Time Provider Department [...] breast in May 2021. Dr. Reza in [place] is her breast surgeon. 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 Tenisha Hancock was given supplemental information on [...] Past Histories independently gathered by the clinical account support analyst and the remaining scribed note accurately describes my personal service to the patient. patient's condition reviewed and examined ? plan and options of management, complexity, risk benefit limitation potential complication, success /failure of management, expected result and recovery discussed ? I spent 30 minutes in the visit, with more than 50% of the total qozg-zz-fenq time of the visit in counseling / [...] Problem Li (more content not included)... Normal [facility] CNPNon 01-15-2022 CNPN Telephone (BRCRAV) TENISHA HANCOCK ([id number]) 1975 F DEF Date Time Provider Department [...] reports and path slides and reports SHANNAN Lcuinda Alvarez Ma 01/16/2022 9:42 AM Signed I called pt to discuss where all outside workup has been, she has had studies at both [facility] and [place]. I was able to have patient get a release and will also fax to [facility] what she has thus far. Our office will continue to work on getting all outside records to be submitted for a second review. Leonilarosaabdulkadir Vanesa 01/16/2022 1:25 PM Signed Pt calling regarding faxed info she had sent to [facility]. Pt asking if fax was received by [...] 1:20 PM Signed Imaging reports rec'd reviewed: [facility] 04/2021 - R screening abnl 2.4 cm [...] I see a teaching note 06/23/21 at [facility] but limited documentation since then as [...] call with arrival time for that 01/23 [facility] 01/22/2022 3:14 PM Signed Patient called back, she left detailed message on voicemail to return her call at [phone]. Thank you. 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 I provided [place] fax number and patient advised she will help me gather all her records. Lucinda Alvarez Ma 01/27/2022 10:00 AM Signed We still have not received path slides as of today. I called and LMOM for Jillian whom is the director of [facility] lab department to get an update. I [...] 01/27/2022 10:34 AM Signed Jillian called from [facility] she advised she will work on getting all slides sent to [facility]. Lucinda Alvarez Ma 01/28/2022 9:41 AM Signed Addended by: LUCINDA RED MA on: 01/28/2022 09:41 AM Modules accepted: Orders Allergies As of Date: 01/15/2022 (No Known Allergies) Date Reviewed: 01/15/2022 Reviewed by: Diamond Gibson - Fully Assessed Reason for Visit: Appointment [[id number]] Order(s):OUTSIDE SURG PATH SLIDE REVIEW [[id number]] Order #: [id number] Prescriptions as of 01/28/2022 - citalopram (CELEXA) 20 mg tablet Take 20 mg (more content not included)... Normal [facility] Basophils Auto (Bld) [#/Vol] Ordered By: Kallie Chang on 12-24-2021 Basophils (Bld) [#/Vol] 0.0 10*3/uL 0.0-0.2 [facility] Basophils/100 WBC Auto (Bld) Ordered By: Kallie Chang on 12-24-2021 Basophils/100 WBC (Bld) 0.3 % . [facility] Blood hemoglobin measurement (mass/volume)Ordered By: Kallie Chang on 12-24-2021 Hemoglobin (Bld) [Mass/Vol] 10.3 g/dL 11.8-15.4 [facility] Blood leukocytes automated c ount (number/volume)Ordered By: Kallie Chang on 12-24-2021 WBC (Bld) [#/Vol] 5.8 10*3/uL 4.5-11.0 [facility] Body fluid albumin measureme nt (mass/volume)Ordered By: Kallie Chang on 12-24-2021 Albumin (Body fld) [Mass/Vol] 3.8 g/dL 3.2-5.5 [facility] Creatinine and Glomerular fi ltration rate.predicted panel (S/P/Bld)Ordered By: Kallie Chang on 12-24-2021 Creatinine [Mass/Vol] 0.66 mg/dL 0.44-1.03 [facility] Eosinophils Auto (Bld) [#/Vo l]Ordered By: Kallie Chang on 12-24-2021 Eosinophils (Bld) [#/Vol] 0.1 10*3/uL 0.0-0.45 [facility] Eosinophils/100 WBC Auto (Bl d)Ordered By: Kallie Chang on 12-24-2021 Eosinophils/100 WBC (Bld) 0.9 % . [facility] Erythrocyte distribution wid th Auto (RBC) [Ratio]Ordered By: Kallie Chang on 12-24-2021 Erythrocyte distribution width (RBC) [Ratio] 13.9 % 11.9-15.3 [facility] Estimated glomerular filtrat ion rate (GFR) non- AmericanOrdered By: Kallie Chang on 12-24-2021 GFR/1.73 sq M.predicted among non-blacks MDRD (S/P/Bld) [Vol rate/Area] > 60 mL/Min [facility] Globulin Calc (S) [Mass/Vol] Ordered By: Kallie Chang on 12-24-2021 Globulin (S) [Mass/Vol] 3.0 g/dL [facility] Hematocrit Auto (Bld) [Volum e fraction]Ordered By: Kallie Chang on 12-24-2021 Hematocrit (Bld) [Volume fraction] 30.4 % 34.0-46.4 [facility] Laboratory - Hematology and Cell countsOrdered By: Kallie Chang on 06-08-2022 Nucleated RBC/100 WBC (Bld) [Ratio] 0.0 % 0-0.5 [facility] Lymphocytes Auto (Bld) [#/Vo l]Ordered By: Kallie Chang on 12-24-2021 Lymphocytes (Bld) [#/Vol] 1.2 10*3/uL 1.00-4.8 [facility] Lymphocytes/100 WBC Auto (Bl d)Ordered By: Kallie Chang on 12-24-2021 Lymphocytes/100 WBC (Bld) 21.5 % . [facility] MCH Auto (RBC) [Entitic mass ]Ordered By: Kallie Chang on 12-24-2021 MCH (RBC) [Entitic mass] 34.6 pg 24.7-34.3 [facility] MCHC Auto (RBC) [Mass/Vol]Or dered By: Kallie Chang on 12-24-2021 MCHC (RBC) [Mass/Vol] 33.9 g/dL 32.0-35.0 Fir [facility] MCV Auto (RBC) [Entitic vol] Ordered By: Kallie Chang on 12-24-2021 MCV (RBC) [Entitic vol] 102.2 fL 80-100 [facility] Macrocytes detectionOrdered By: Kallie Chang on 12-24-2021 Macrocytes Ql (Bld) Slight [facility] Monocytes Auto (Bld) [#/Vol] Ordered By: Kallie Chang on 12-24-2021 Monocytes (Bld) [#/Vol] 0.3 10*3/uL 0.0-0.8 [facility] Monocytes/100 WBC Auto (Bld) Ordered By: Kallie Chang on 12-24-2021 Monocytes/100 WBC (Bld) 5.5 % . [facility] Neutrophils Auto (Bld) [#/Vo l]Ordered By: Kallie Chang on 12-24-2021 Neutrophils (Bld) [#/Vol] 4.1 10*3/uL 1.8-7.7 [facility] Neutrophils/100 WBC Auto (Bl d)Ordered By: Kallie Chang on 12-24-2021 Neutrophils/100 WBC (Bld) 71.8 % . [facility] No Panel InformationOrdered By: Kallie Chang on 12-24-2021 Estimated GFR () > 60 mL/Min [facility] Comment on above: GFR estimated refere nce range: According to KDOQI guidelines, <60 ml/min/1.73m2 is sufficient to diagnose a patient with chronic kidney disease. Pharmacy Creatinine Clearance (Chem 115.02 [facility] Platelet Estimate Normal Normal [facility] Platelet Morphology Comment Normal Normal [facility] Poikilocytosis Slight [facility] Ovalocyte detectionOrdered B y: Kallie Chang on 12-24-2021 Ovalocytes LM Ql (Bld) [facility] mean volume Auto (B ld) [Entitic vol]Ordered By: Kallie Chang on 12-24-2021 Platelet mean volume (Bld) [Entitic vol] 8.0 fL 6.3-10.7 [facility] Platelets Auto (Bld) [#/Vol] Ordered By: Kallie Chang on 12-24-2021 Platelets (Bld) [#/Vol] 207 10*3/uL 150-450 [facility] Protein [Mass/volume] in Ser um or PlasmaOrdered By: Kallie Chang on 12-24-2021 Protein [Mass/Vol] 6.8 g/dL 6.1-7.9 [facility] RBC Auto (Bld) [#/Vol]Ordere d By: Kalile Chang on 12-24-2021 RBC (Bld) [#/Vol] 2.98 10*6/uL 3.60-5.00 [facility] RBC morphologyOrdered By: Precious Chang on 12-24-2021 RBC morphology finding Nom (Bld) N/A [facility] Serum or plasma alanine napoles otransferase measurement without P-5'-P (enzymatic activiOrdered By: Kallie Chang on 12-24-2021 ALT No additional P-5'-P [Catalytic activity/Vol] 20 U/L 10-60 [facility] Serum or plasma albumin/glob ulin mass ratioOrdered By: Kallie Chang on 12-24-2021 Albumin/Globulin [Mass ratio] 1.3 {ratio} [facility] Serum or plasma alkaline zo sphatase measurement (enzymatic activity/volume)Ordered By: Kallie Chang on 12-24-2021 ALP [Catalytic activity/Vol] 112 U/L 32-92 [facility] Serum or plasma aspartate am inotransferase measurement (enzymatic activity/volume)Ordered By: Kallie Chang on 12-24-2021 AST [Catalytic activity/Vol] 17 U/L 10-42 [facility] Serum or plasma calcium daiana urement (mass/volume)Ordered By: Kallie Chang on 12-24-2021 Calcium [Mass/Vol] 9.6 mg/dL 8.2-10.2 [facility] Serum or plasma chloride lizett surement (moles/volume)Ordered By: Kallie Chang on 12-24-2021 Chloride [Moles/Vol] 98 mmol/L 95-114 [facility] Serum or plasma glucose daiana urement (mass/volume)Ordered By: Kallie Chang on 12-24-2021 Glucose [Mass/Vol] 119 mg/dL 70-100 [facility] Comment on above: ADA recommended refe rence [...] on 12-24-2021 Potassium [Moles/Vol] 4.0 mmol/L 3.5-5.1 [facility] Serum or plasma sodium measu rement (moles/volume)Ordered By: Kallie Chang on 12-24-2021 Sodium [Moles/Vol] 134 mmol/L 136-146 [facility] Serum or plasma total biliru bin measurement (mass/volume)Ordered By: Kallie Chang on 12-24-2021 Bilirubin [Mass/Vol] 0.5 mg/dL 0.3-1.2 [facility] Serum or plasma total carbon dioxide measurement (moles/volume)Ordered By: Kallie Chagn on 12-24-2021 CO2 [Moles/Vol] 23.2 mmol/L 22.0-30.0 [facility] Serum or plasma urea nitroge n measurement (mass/volume)Ordered By: Kallie Chang on 12-24-2021 Urea nitrogen [Mass/Vol] 7 mg/dL 04-10 [facility] CNPNon 12-19-2021 CNPN Telephone (DPQ) TENISHA HANCOCK ([id number]) 1975 F Date Time Provider Department 12/19/21 [...] Status:Closed by ALFREDO ORTEGA on 12/19/21 Normal [facility] No Panel InformationOrdered By: Kallie Chang on 12-16-2021 Adrenocorticotropic Hormone 31.0 pg/mL 7.2-63.3 [facility] Comment on above: ACTH reference inter ervin for samples collected between 7 and 10 AM. Performed at: [facility] [id number] Information Management Manager: Red Sena PhD, Phone: [phone] ACTH reference inter ervin for samples collected between 7 and10 AM.Performed at: [facility] [id number] Director: Red Sena PhD, Phone: [phone] Random cortisol measurementO rdered By: Kallie Chang on 12-16-2021 Cortisol [Mass/Vol] 7.2 ug/dL [facility] Comment on above: Reference range: AM 6 - 24 ug/dl PM <10 ug/dl Reference range: AM 6 - 24 ug/dl PM <10 ug/dl TSH DL <= 0.005 mIU/L QnOrde red By: Kallie Chang on 12-16-2021 TSH Qn 0.08 m[IU]/L 0.45-5.33 [facility] Thyroxine (T4) free [Mass/vo lume] in Serum or PlasmaOrdered By: Kallie Chang on 12-16-2021 Free T4 [Mass/Vol] 0.74 ng/dL 0.61-1.12 [facility] No Panel InformationOrdered By: Kallie Chang on 12-02-2021 Dohle Bodies Slight [facility] Teardrop cell detectionOrder ed By: Kallie Chang on 12-02-2021 Dacrocytes LM Ql (Bld) Slight Fi [facility] Toxic leukocyte granulation detectionOrdered By: Kallie Chang on 12-02-2021 Toxic granules LM Ql (Bld) Slight [facility] Basophils/100 WBC Auto (Bld) Ordered By: Kallie Chang on 11-04-2021 Basophils/100 WBC (Bld) 1 % 0-2 [facility] Blood anisocytosis detection Ordered By: Kallie Chang on 11-04-2021 Anisocytosis Ql (Bld) Moderate Fir [facility] Blood polychromasia detectio n by light microscopyOrdered By: Kallie Chang on 11-04-2021 Polychromasia LM Ql (Bld) Slight [facility] Erythrocyte basophilic stipp ling detectionOrdered By: Kallie Chang on 11-04-2021 Basophilic stippling LM Ql (Bld) Rare [facility] Laboratory - Hematology and Cell countsOrdered By: Kallie Chang on 11-04-2021 Band form neutrophils/100 WBC (Bld) 1 % 0-5 [facility] Lymphocytes/100 WBC Auto (Bl d)Ordered By: Kallie Chang on 11-04-2021 Lymphocytes/100 WBC (Bld) 25 % 18-42 [facility] Monocytes/100 WBC Manual cnt (Bld)Ordered By: Kallie Chang on 11-04-2021 Monocytes/100 WBC (Bld) 6 % 2-11 [facility] Myelocytes/100 WBC Manual cn t (Bld)Ordered By: Kallie Chang on 11-04-2021 Myelocytes/100 WBC (Bld) 3 % 0-0 [facility] No Panel InformationOrdered By: Kallie Chang on 11-04-2021 Rouleau Slight [facility] Segmented neutrophils/100 WB C Manual cnt (Bld)Ordered By: Kallie Chang on 11-04-2021 Segmented neutrophils/100 WBC (Bld) 64 % 50-70 [facility] Otheron 06-06-1998 CONVERTED ELECTRONIC SIGNATURE PATI [employer], [employer]PERVISORY [employer] COLLECTOR (Electronic signature on file) Final Signed Out: 06/06/1998 15:39 [facility] CONVERTED FINAL DIAGNOSIS SPECIMEN ADEQU ACY SATISFACTORY FOR EVALUATION GENERAL CATEGORIZATION BENIGN CELLULAR CHANGES DESCRIPTIVE DIAGNOSIS FUNGAL ORGANISMS MORPHOLOGICALLY CONSISTENT WITH JUAN CARLOS SPECIES. INFLAMMATORY CELL CHANGES. HORMONAL EVALUATION HORMONAL PATTERN COMPATIBLE WITH AGE AND HISTORY [facility] CONVERTED ORDERING PROVIDER Ordering Provider: JAMARI HOYT [facility] CONVERTED PAP DISCLAIMER The Pap test se rves as a screening tool for early detection of cervical cancer. The Pap test does not represent a final diagnostic test for cervical cancer. Furthermore, the Pap test was not designed to screen for other malignancies (endometrial, ovarian cancer, etc....). False negatives and false positives have occurred. If clinically indicated, further patient evaluation is recommended. [facility] Vital Signs Date Time Vital Sign Value Performing Clinician Facility 11-25-2022 14:42-0400 Body temperature 97.8 [degF] MD Eliel Hurd Work Phone: [facility] 11-25-2022 14:42-0400 Body weight 79.83 kg MD Eliel Hurd Work Phone: [facility] 11-25-2022 14:42-0400 Diastolic blood pressure 73 mm[Hg] MD Eliel Hurd Work Phone: [facility] 11-25-2022 14:42-0400 Heart rate 75 /min MD Eliel Hurd Work Phone: [facility] 11-25-2022 14:42-0400 Respiratory rate 16 /min MD Eliel Hurd Work Phone: [facility] 11-25-2022 14:42-0400 SaO2% (BldA) [Mass fraction] 97 % MD Eliel Hurd Work Phone: [facility] 11-25-2022 14:42-0400 Systolic blood pressure 109 mm[Hg] MD Eliel Hurd Work Phone: [facility] 09-18-2022 13:38-0500 Body temperature 98 [degF] MD Eliel Hurd Work Phone: [facility] 09-18-2022 13:38-0500 Body weight 80.4 kg MD Eliel Hurd Work Phone: [facility] 09-18-2022 13:38-0500 Diastolic blood pressure 78 mm[Hg] MD Eliel Hurd Work Phone: [facility] 09-18-2022 13:38-0500 Heart rate 77 /min MD Eliel Hurd Work Phone: [facility] 09-18-2022 13:38-0500 Respiratory rate 16 /min MD Eliel Hurd Work Phone: [facility] 09-18-2022 13:38-0500 SaO2% (BldA) [Mass fraction] 99 % MD Eliel Hurd Work Phone: [facility] 09-18-2022 13:38-0500 Systolic blood pressure 115 mm[Hg] MD Eliel Hurd Work Phone: [facility] 08-14-2022 14:08-0500 Body weight 79.6 kg MD Eliel Hurd Work Phone: [facility] 08-14-2022 14:08-0500 Diastolic blood pressure 68 mm[Hg] MD Eliel Hurd Work Phone: [facility] 08-14-2022 14:08-0500 Heart rate 72 /min MD Eliel Hurd Work Phone: [facility] 08-14-2022 14:08-0500 Respiratory rate 18 /min MD Eliel Hurd Work Phone: [facility] 08-14-2022 14:08-0500 SaO2% (BldA) [Mass fraction] 99 % MD Eliel Hurd Work Phone: [facility] 08-14-2022 14:08-0500 Systolic blood pressure 103 mm[Hg] MD Eliel Hurd Work Phone: [facility] 08-07-2022 13:06-0500 Body temperature 98 [degF] MD Eliel Hurd Work Phone: [facility] 08-06-2022 13:31-0500 Body temperature 97.8 [degF] MD Eliel Hurd Work Phone: [facility] 08-06-2022 13:31-0500 Body weight 76.1 kg MD Eliel Hurd Work Phone: [facility] 08-06-2022 13:31-0500 Diastolic blood pressure 78 mm[Hg] MD Eliel Hurd Work Phone: [facility] 08-06-2022 13:31-0500 Heart rate 60 /min MD Eliel Hurd Work Phone: [facility] 08-06-2022 13:31-0500 Respiratory rate 16 /min MD Eliel Hurd Work Phone: [facility] 08-06-2022 13:31-0500 SaO2% (BldA) [Mass fraction] 95 % MD Eliel Hurd Work Phone: [facility] 08-06-2022 13:31-0500 Systolic blood pressure 115 mm[Hg] MD Eliel Hurd Work Phone: [facility] 07-15-2022 13:06-0500 Body height 160.02 cm MD Eliel Hurd Work Phone: [facility] 07-15-2022 13:06-0500 Body temperature 97.5 [degF] MD Eliel Hurd Work Phone: [facility] 07-15-2022 13:06-0500 Body weight 75.3 kg MD Eliel Hurd Work Phone: [facility] 07-15-2022 13:06-0500 Diastolic blood pressure 61 mm[Hg] MD Eliel Hurd Work Phone: [facility] 07-15-2022 13:06-0500 Heart rate 80 /min MD Eliel Hurd Work Phone: [facility] 07-15-2022 13:06-0500 Respiratory rate 18 /min MD Eliel Hurd Work Phone: [facility] 07-15-2022 13:06-0500 SaO2% (BldA) [Mass fraction] 98 % MD Eliel Hurd Work Phone: [facility] 07-15-2022 13:06-0500 Systolic blood pressure 102 mm[Hg] MD Eliel Hurd Work Phone: [facility] 06-18-2022 10:07-0500 Body height 160.02 cm MD Eliel Hurd Work Phone: [facility] 06-18-2022 10:07-0500 Body temperature 98.4 [degF] MD Eliel Hurd Work Phone: [facility] 06-18-2022 10:07-0500 Body weight 78.9 kg MD Eliel Hurd Work Phone: [facility] 06-18-2022 10:07-0500 Diastolic blood pressure 80 mm[Hg] MD Eliel Hurd Work Phone: [facility] 06-18-2022 10:07-0500 Heart rate 84 /min MD Eliel Hurd Work Phone: [facility] 06-18-2022 10:07-0500 Respiratory rate 20 /min MD Eliel Hurd Work Phone: [facility] 06-18-2022 10:07-0500 SaO2% (BldA) [Mass fraction] 100 % MD Eliel Hurd Work Phone: [facility] 06-18-2022 10:07-0500 Systolic blood pressure 117 mm[Hg] MD Eliel Hurd Work Phone: [facility] 03-19-2022 10:00-0400 Body temperature 98.8 [degF] MD Eliel Hurd Work Phone: [facility] 03-19-2022 10:00-0400 Body weight 90.26 kg MD Eliel Hurd Work Phone: [facility] 03-19-2022 10:00-0400 Diastolic blood pressure 86 mm[Hg] MD Eliel Hurd Work Phone: [facility] 03-19-2022 10:00-0400 Heart rate 68 /min MD Eliel Hurd Work Phone: [facility] 03-19-2022 10:00-0400 Respiratory rate 18 /min MD Eliel Hurd Work Phone: [facility] 03-19-2022 10:00-0400 SaO2% (BldA) [Mass fraction] 98 % MD Eliel Hurd Work Phone: [facility] 03-19-2022 10:00-0400 Systolic blood pressure 125 mm[Hg] MD Eliel Hurd Work Phone: [facility] 02-17-2022 16:00-0400 Body temperature 97.5 [degF] [facility] 02-17-2022 16:00-0400 Diastolic blood pressure 71 mm[Hg] Diana Cashen DO Work Phone[facility] 02-17-2022 16:00-0400 Heart rate 101 /min Diana Cashen DO Work Phone[facility] 02-17-2022 16:00-0400 Respiratory rate 23 /min Diana Cashen DO Work Phone: [employer] 02-17-2022 16:00-0400 SaO2% (BldA) [Mass fraction] 95 % Diana Cashen DO Work Phone: [facility] [employer] 02-17-2022 16:00-0400 Systolic blood pressure 134 mm[Hg] Diana Cashen DO Work Phone: [facility] [employer] 02-17-2022 07:21-0400 Body height 160 cm Diana Cashen DO Work Phone: [facility] [employer] 02-17-2022 07:21-0400 Body mass index (BMI) [Ratio] 34.05 kg/m2 Dianasadie Murguia DO Work Phone: [facility] [employer] 02-17-2022 07:21-0400 Body weight 87.18 kg Dianasadie Murguia DO Work Phone: [facility] [employer] 01-15-2022 15:34-0400 Body height 160 cm Fahad Russell MD Work Phone: [facility] 01-15-2022 15:34-0400 Body temperature 98.1 [degF] Fahad Russell MD Work Phone: [facility] 01-15-2022 15:34-0400 Body weight 87.59 kg Fahad Russell MD Work Phone: [facility] 01-15-2022 15:34-0400 Diastolic blood pressure 86 mm[Hg] Fahad Russell MD Work Phone: [facility] 01-15-2022 15:34-0400 Heart rate 72 /min Fahad Russell MD Work Phone: [facility] 01-15-2022 15:34-0400 Systolic blood pressure 149 mm[Hg] Fahad Russell MD Work Phone: [facility] 09-15-2021 15:45-0500 Body height 160.02 cm Franco Stokes Other [employer] Other 09-15-2021 15:45-0500 Body mass index (BMI) [Ratio] 34.36 kg/m2 Franco Stokes Other [employer] Other 09-15-2021 15:45-0500 Body weight 88 kg Franco Stokes Other [employer] Other 07-08-2021 14:14-0500 Body height 160.02 cm MD Eliel Hurd Work Phone: [facility] Encounters Encounter Date Encounter Type Care Provider Facility Start: 06-23-2023 ambulatory Ismael BERMAN Facility : [facility] Start: 05-04-2023 ambulatory Ismael BERMAN Facility:[facility] Start: 04-07-2023 End: 04-07-2023 ambulatory Eliel Hurd Facility:[facility] Start: 04-07-2023 End: 04-07-2023 ambulatory MD Eliel Hurd Work Phone: [facility] Work Phone: Start: 04-07-2023 End: 04-07-2023 Patient encounter procedure MD Eliel Hurd Work Phone: [facility] [address] Work Phone: Start: 02-15-2023 End: 02-16-2023 ambulatory Booker Lizarraga MD Facility:[facility] Start: 01-22-2023 ambulatory Ismael NILL Facility:[facility] Start: 01-11-2023 End: 01-12-2023 ambulatory Booker Lizarraga MD Facility:[facility] Start: 12-28-2022 ambulatory ANDRIUS ELHAM Faci lity:[facility] Start: 12-01-2022 ambulatory BRIEN KOEHLER Facility :[facility] Start: 11-25-2022 ambulatory Kallie Bernardo Facility:[facility] Start: 11-25-2022 End: 05-10-2023 ambulatory MD Eliel uHrd Work Phone: [facility] Work Phone: Start: 11-25-2022 End: 11-25-2022 Registered Recurring MD Eliel Hurd Work Phone: [facility] Work Phone: Start: 09-18-2022 End: 09-18-2022 ambulatory MD Eliel Hurd Work Phone: [facility] Work Phone: Start: 09-18-2022 End: 09-18-2022 Registered Recurring MD Eliel Hurd Work Phone: [facility] Work Phone: Start: 08-14-2022 End: 08-14-2022 ambulatory MD Eliel Hurd Work Phone: [facility] Work Phone: Start: 08-14-2022 End: 08-14-2022 Registered Recurring MD Eliel Hurd Work Phone: [facility] Work Phone: Start: 08-06-2022 End: 08-06-2022 ambulatory MD Eliel Hurd Work Phone: [facility] Work Phone: Start: 08-06-2022 End: 08-06-2022 Registered Recurring MD Eliel Hurd Work Phone: [facility] Work Phone: Start: 07-23-[address] DOCTOR STRINGER Facility :[facility] Start: 07-22-2022 End: 07-22-2022 ambulatory MD Eliel Hurd Work Phone: [facility] Work Phone: Start: 07-22-2022 End: 07-22-2022 Registered Recurring MD Eliel Hurd Work Phone: [facility] Work Phone: Start: 06-19-2022 End: 06-19-2022 ambulatory Miguelcarol Vickers Facility:[facility] Start: 06-19-2022 End: 06-19-2022 Patient encounter procedure MD Eliel Hurd Work Phone: [facility] [address] Work Phone: Start: 06-18-2022 End: 06-18-2022 ambulatory MD Eliel Hurd Work Phone: [facility] Work Phone: Start: 06-18-2022 End: 06-18-2022 Registered Recurring MD Eliel Hurd Work Phone: [facility] Start: 04-16-2022 End: 04-16-2022 ambulatory MD Eliel Hurd Work Phone: [facility] Work Phone: Start: 04-16-2022 End: 04-16-2022 Registered Recurring MD Eliel Hurd Work Phone: [facility] Start: 04-16-2022 End: 04-16-2022 Discharged Recurring MD Eliel Hurd Work Phone: [facility]-Infusion Therapy - O/P Start: 04-14-2022 End: 04-15-[address] KRISTA ROBERTSON Facility:[facility] Start: 04-07-2022 End: 04-07-[address] CHIDI MATT . Facility:[facility] Start: 04-05-2022 Encounter for genera l adult medical examination without abnormal findings DR ELIEL HURD . [facility] Start: 2022 End: 04-01-2022 Encounter for general adult medical examination without abnormal findings DR ELIEL HURD . Facility:[facility] Start: 2022 End: 04-01-[address] ELIEL HURD . Facility:[facility] Start: 03-20-2022 Registered Recurring MD Eliel rogers Work Phone: [facility]Infusion [facility] - O/P Start: 03-19-2022 End: 03-19-2022 Registered Recurring MD Eliel Hurd Work Phone: [facility] Start: 03-14-2022 End: 03-14-2022 ambulatory EARNEST HDZ Facility:[facility] Start: 03-12-2022 End: 03-12-2022 Registered Recurring MD Eliel Hurd Work Phone: [facility] Start: 02-18-2022 End: 02-19-2022 ambulatory DIANA [facility] Start: 02-17-2022 End: 02-20-[address] [facility] Start: 02-17-2022 End: 02-17-[address] [facility] Start: 02-17-2022 End: 02-19-2022 Subsequent hospital visit by physician Jackie Everett Room 1 [facility] Comment on above: Malignant neoplasm o f right female breast, unspecified estrogen receptor status, unspecified site of breast (HCC) Start: 02-17-2022 End: 02-17-2022 Subsequent hospital visit by physician Diana Murguia DO Work Phone: [facility] Comment on above: Status post breast r econstruction (Primary Dx); Status post breast lumpectomy; Abnormal mammogram; Malignant neoplasm of right female breast, unspecified estrogen receptor status, unspecified site of breast (HCC) Start: 02-04-2022 End: 02-07-2022 [facility] Start: 02-04-2022 End: 02-06-2022 Subsequent hospital visit by physician Lesly Su Mri [facility] MRI Comment on above: Malignant neoplasm o f right female breast, unspecified estrogen receptor status, unspecified site of breast (HCC) Start: 01-29-2022 Telephone encounter Xiomara tolliver MD Work Phone: [facility] Comment on above: Appointment Start: 01-15-2022 End: 01-15-2022 Patient encounter procedure Fahad Russell MD Work Phone: Plastic Surgery Comment on above: History of breast ca ncer (Primary Dx); Breast asymmetry following reconstructive surgery Start: 01-15-2022 Telephone encounter Xiomara tolliver MD Work Phone: [facility] Comment on above: Appointment Start: 09-15-2021 End: 09-15-2021 ambulatory Franco Stokes Other [facility] [employer] Other Start: 09-15-2021 Office outpatient ne w [address] 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 Conversion José Meyer History of mastectomy Status pos t breast lumpectomy Diana Murguia DO Work Phone: Plan of Treatment Date Care Activity Detail Author Start: 04-07-2023 [facility] Start: 09-04-2022 End: 09-04-2022 [facility] Start: 09-03-2022 [facility] Start: 08-07-2022 [facility] Start: 08-05-2022 [facility] Start: 07-22-2022 Adrenocorticotropic hormone measurement [facility] Start: 07-22-2022 [facility] Start: 07-09-2022 [facility] Start: 06-19-2022 [facility] Start: 06-18-2022 [facility] Start: 06-17-2022 Adrenocorticotropic hormone measurement [facility] Start: 05-28-2022 [facility] Start: 04-22-2022 Mammography MAMMOGRAM [facility] Start: 03-20-2022 Registered Recurring Registered Recurring [facility]-Infusion Therapy - O/P Start: 03-19-2022 Influenza vaccination [facility] Start: 03-04-2022 End: 03-04-2022 Patient encounter procedure 03/04/2022 Office Visit [place] [id number] [address] [facility] Start: 03-04-2022 End: 03-04-2022 Patient encounter procedure 03/04/2022 Office Visit General Surgery Diana Murguia, [address] [address] [facility] Start: 02-17-2022 End: 02-17-2022 Mast modf rad w/ax lymph nod w/wo pect/gonzalo min BREAST MASTECTOMY RECONSTRUCTION Malignant neoplasm of right female breast, unspecified estrogen receptor status, unspecified site of breast (HCC) 02/17/2022 10:22 AM [facility] Start: 02-17-2022 End: 02-17-2022 Mastectomy partial BREAST LUMPECTOMY PARTIAL MASTECTOMY Malignant neoplasm of right female breast, unspecified estrogen receptor status, unspecified site of breast (HCC) 02/17/2022 10:22 AM [facility] Start: 02-09-2022 End: 02-09-2022 Patient encounter procedure 02/09/2022 Office Visit General Surgery Diana Murguia, DO [address] [facility] [address] [place] [address] [facility] Start: 12-17-2021 [facility] Start: 11-26-2021 [facility] Start: 11-05-2021 [facility] Start: 10-15-2021 [facility] Start: 09-30-2021 [facility] Start: 09-24-2021 [facility] Start: 09-24-2021 [facility] Start: 09-17-2021 End: 09-17-2021 [facility] Start: 09-16-2021 End: 09-16-2021 [facility] Start: 09-11-2021 End: 09-11-2021 [facility] Start: 09-04-2021 [facility] Start: 08-27-2021 [facility] Start: 08-20-2021 [facility] Start: 08-14-2021 [facility] Start: 08-13-2021 End: 08-14-2021 [facility] Start: 07-30-2021 [facility] Start: 07-28-2021 [facility] Start: 07-21-2021 End: 07-22-2021 [facility] Start: 01-18-2021 COVID-19 VACCINE (3 - Booster for Moderna series) COVID-19 VACCINE (3 - Booster for Moderna series) [facility] Start: 2017 [facility] Start[facility] 2012 Diabetes screen Diabetes screen [facility] Start: 2007 HPV TESTING HPV TESTING [facility] Start: 2007 Screening for malignant neoplasm of cervix [facility] Start: 1998 PAP TESTING PAP TESTING [facility] Start: 1998 Screening for malignant neoplasm of cervix Pap [facility] Start: 1996 DTaP/Tdap/Td vaccine (1 - Tdap) DTaP/Tdap/Td vaccine (1 - Tdap) [facility] Start: 1996 Urine microalbumin profile DTAP,TDAP,TD (1 - Tdap) [facility] Start: 1995 HEPATITIS C SCREENING HEPATITIS C SCREENING [facility] Start: 1995 Hepatitis C screening Hepatitis C screen [facility] Start: 1995 HIV SCREENING HIV SCREENING [facility] Start: 1992 HIV screening [facility] screen [facility] Start: 1989 Adult depression screening assessment [facility] Start: 1989 Depression Screen Depression Screen [facility] Start: 1977 COVID-19 Vaccine (#1) COVID-19 Vaccine (#1) [facility] Adrenocorticotropic hormone measurement [facility] Work Phone: Adrenocorticotropic hormone measurement [facility] Adrenocorticotropic hormone measurement [facility] Adrenocorticotropic hormone measurement [facility] Adrenocorticotropic hormone measurement [facility] Adrenocorticotropic hormone measurement [facility] Basophils [#/volume] in Blood by Automated count [facility] Basophils/100 leukoc ytes in Blood by Automated count [facility] Comprehensive metabo lic 1999 panel - Serum or Plasma [facility] Work Phone: Comprehensive metabo lic 1999 panel - Serum or Plasma [facility] Comprehensive metabo lic 1999 panel - Serum or Plasma [facility] Comprehensive metabo lic 1999 panel - Serum or Plasma [facility] Comprehensive metabo lic 1999 panel - Serum or Plasma [facility] Comprehensive metabo lic 1999 panel - Serum or Plasma [facility] Comprehensive metabo lic 1999 panel - Serum or Plasma [facility] Comprehensive metabo lic 1999 panel - Serum or Plasma [facility] Comprehensive metabo lic 1999 panel - Serum or Plasma [facility] Cortisol [Mass/volum e] in Serum or Plasma [facility] Work Phone: Cortisol [Mass/volum e] in Serum or Plasma [facility] Cortisol [Mass/volum e] in Serum or Plasma [facility] Cortisol [Mass/volum e] in Serum or Plasma [facility] Cortisol [Mass/volum e] in Serum or Plasma [facility] Cortisol [Mass/volum e] in Serum or Plasma [facility] CT Head WO and W contrast IV [facility] Work Phone: CT Head WO and W contrast IV [facility] Eosinophils [#/volum e] in Blood [facility] Eosinophils/100 leuk ocytes in Blood by Automated count [facility] Erythrocyte distribu tion width [Ratio] by Automated count [facility] Erythrocytes [#/volu me] in Blood [facility] Hematocrit [Volume F raction] of Blood [facility] Hemoglobin [Mass/vol ume] in Blood [facility] End: 02-17-2022 INITIATE PACU OXYGEN THERAPY PROTOCOL Initiate PACU Oxygen Therapy Protocol Respiratory Care Routine Continuous until discontinued starting 02/17/2022 [email or web address] Phone: Comment on above: Continuous until discontinued starting 0 02/17/2022 Leukocytes [#/volume ] corrected for nucleated erythrocytes in Blood by Automated coun [facility] Leukocytes [#/volume ] in Blood [facility] Lymphocytes [#/volum e] in Blood by Automated count [facility] Lymphocytes/100 leuk ocytes in Blood by Automated count [facility] End: 02-17-2022 WILLIE NEEDLE LOCALIZATION RIGHT WILLIE [employer] LOCALIZATION RIGHT Imaging Routine Abnormal mammogram Once for 1 Occurrences starting 02/17/2022 until 02/17/2022 [email or web address] Phone: Comment on above: Once for 1 Occurrences starting 02/18/20 until 02/17/2022 MCH [Entitic mass] b y Automated count [facility] MCHC [Mass/volume] b y Automated count [facility] MCV [Entitic volume] by Automated count [facility] MG Breast - bilatera l Diagnostic [facility] Monocytes [#/volume] in Blood by Automated count [facility] Monocytes/100 leukoc ytes in Blood by Automated count [facility] Neutrophils [#/volum e] in Blood by Automated count [facility] Neutrophils/100 leuk ocytes in Blood by Automated count [facility] Nucleated erythrocyt es [Presence] in Blood by Automated count [facility] Oxygen therapy [Mini mum Data Set] Initiate Oxygen Therapy Protocol Respiratory Care Routine Daily until discontinued starting 02/17/2022 [email or web address] Phone: Comment on above: Daily until discontinued starting 2021 Platelet mean volume [Entitic volume] in Blood by Automated count [facility] Platelets [#/volume] in Blood [facility] Surgical Pathology Surgical Path ology Lab Routine Malignant neoplasm of right female breast, unspecified estrogen receptor status, unspecified site of breast (HCC) Release Upon Ordering for 1 Occurrences starting 02/17/2022 [email or web address] Phone: Comment on above: Release Upon Ordering for 1 Occurrences starting 02/17/2022 End: 02-17-2022 SURGICAL PATHOLOGY REPORT SURGICAL PATHOLOGY REPORT Lab Routine Once for 1 Occurrences starting 02/17/2022 until 02/17/2022 [email or web address] Phone: Comment on above: Once for 1 Occurrences starting 02/18/20 until 02/17/2022 Thyrotropin [Units/v olume] in Serum or Plasma [facility] Work Phone: Thyrotropin [Units/v olume] in Serum or Plasma [facility] Thyrotropin [Units/v olume] in Serum or Plasma [facility] Thyrotropin [Units/v olume] in Serum or Plasma [facility] Thyrotropin [Units/v olume] in Serum or Plasma [facility] Thyrotropin [Units/v olume] in Serum or Plasma [facility] Thyroxine (T4) free [Mass/volume] in Serum or Plasma [facility] Work Phone: Thyroxine (T4) free [Mass/volume] in Serum or Plasma [facility] Thyroxine (T4) free [Mass/volume] in Serum or Plasma [facility] Thyroxine (T4) free [Mass/volume] in Serum or Plasma [facility] Thyroxine (T4) free [Mass/volume] in Serum or Plasma [facility] Thyroxine (T4) free [Mass/volume] in Serum or Plasma [facility] Payers Date Payer Category Payer Unknown [id number] 2022 Unknown 2021 Unknown MMO MMO [employer] [id number] 2021-Present [phone] [address] [place] [address] O [id number] 2021 Self-pay [id number] 2021 Unknown [id number] 2019 Unknown [id number] 1977 Unknown [id number] 2.16.840.1.198408.3.579.2.177 1977 Unknown [id number] 2.16.840.1.526620.3.579.2.177 1977 Unknown [id number] 2.16.840.1.824348.3.579.2.175 1977 Unknown [id number] 2.16.840.1.433322.3.579.2.175 1977 Unknown [id number] 2.16.840.1.052466.3.579.2.593 1977 Unknown [id number] 2.16.840.1.084311.3.579.2.593 1977 Unknown [id number] 2.16840.1.504526.3.579.2.593 1977 Unknown [id number] 2.16.840.1.799993.3.579.2.593 1977 Unknown [id number] 2.16840.1.957216.3.579.2.593 1977 Unknown [id number] 2.16840.1.485205.3.579.2.593 1977 Unknown [id number] 2.840.1.109947.3.579.2.593 1977 Unknown [id number] 2.840.1.246853.3.579.2.593 1977 Unknown [id number] 2.840.1.541131.3.579.2.196 1977 Unknown [id number] 2.16840.1.351932.3.579.2.196 1977 Unknown [id number] .840.1.755499.3.579.2.727 Unknown HCAP/HFA/FAP Active [id number] Unknown [id number] .[id number] Unknown [id number] 2.16840.1.073735.3.579.2.531 Unknown [id number] 2.16840.1.413924.3.579.2.531 Social History Date Type Detail Facility Tobacco smoking status NHIS Unknown if ever smoked [facility] Start: 1975 Sex Assigned At Not on file [facility] Sex Assigned At Sex Assigned At [facility] [employer] Other Start: 01-15-2022 End: 11-25-2022 Tobacco smoking status ILIS Ex-smoker [facility] Start: 01-15-2022 Tobacco use and exposure Smokeless tobacco non-user [facility] Start: 1975 Sex Assigned At Female [facility] Start: 01-13-2022 End: 02-17-2022 Exposure to SARS-CoV-2 (event) Not sure [facility] History of tobacco use Current smoker [email or web address] Phone: Start: 02-04-2022 Tobacco use and exposure Former smokeless tobacco user [email or web address] Phone: Start: 02-17-2022 End: 02-18-2022 Alcohol intake Lifetime non-drinker (finding) [email or web address] Phone: Clinical Notes 07-08-2021 to 09-19-2022 Note Date & Type Note Facility 09-19-2022 Progress note Note Date/Time September 18, 2022 1:44pm [facility] [place] [address] Hem/Onc Follow Up Note - OP Signed Patient: Tenisha Hancock MR#: [id number] : 1975 Acct:[id number] Age/Sex: 47 / F Type: REG RCR [...] hydrocortisone 20mg am/10mg pm. Will f/u with [employer] next week to review symptoms. We may [...] right mastopexy on 02/17/2022 by Drs. Saunders/Drew ([facility]). Her pathology returned with no evidence [...] Simons and has an appointment scheduled at [facility] to discuss josep flap surgery as [...] reduction of both Adriamycin and Cytoxan. 10/08/2021: Rahcel is here for followup after completing 4 [...] overall good. BRCA testing was done through [facility] and is negative. She does have left [...] I willdefer to his impression and recommendations. POARCH: This is a now 47 year old female, recently diagnosed with triple negative right breast cancer; currently undergoing neoadjuvant pembrolizumab, carboplatin AUC 4and weekly paclitaxel x6 cycles, which commenced: 07/22/2021. This is a 46-year-old female who works at [employer] with triple negative breast cancer, referred for neoadjuvant chemotherapy. Mammogramon on April 22, 2021 showed 3 new focal masses with the largest measuring 2 cm in size in the right breast. 2 additional lesions measuring 1 cm and a second 0.9 cm were also seen. The patient was referred for biopsy. Needle biopsy showed triple negative breast cancer, ER negative, KS negative, and H ER 2 -. The patient was referred to Dr. Ismael Red for Wenaww-x-Fxqk which she has had placed. She has seen my colleague Dr. Smith at the [facility] recommended neoadjuvant chemotherapy and immunotherapy. Because of insurance reasons, she will be getting her treatment here at [facility]. She has had echocardiography as well. According the patient an MRI was obtained prior to neoadjuvant therapy while she was at [facility] we are requesting this prior study. She [...] showed triple negative breast cancer, ER negative, KS negative, and HER 2 -. The patient was referred to Dr. Ismael Red for Pdldix-e-Cqon which she has had placed. She has seen my colleague Dr. Smith at the [facility] recommended neoadjuvant chemotherapy and immunotherapy. Because of insurance reasons, she will be getting her treatment here at [facility]. She has had echocardiography as well. [...] 9 cycles --Original breast MRI obtained from [facility] from May 2021, follow-up breast MRI performed [...] preoperatively in late December. 2. 02/17/2022 at [facility], Drs. Saunders/Shantal: needle localized lumpectomy with [...] Allergies Allergy (Verified 09/18/22 13:38) Home Medications cohydmx-ibjhqbfztdhca-lbnotztk 250 mg-250 mg-65 mg tablet (Excedrin Migraine) [...] % (Auto) 91.1, Lymph % (Auto) 6.2, [place] % (Auto) 2.3, Eos % (Auto) 0.1, Baso % (Auto) 0.3, Nucleat RBC Rel Count 0.1, Neut # (Auto) 10.4 H, Lymph # (Auto) 0.7 L, [place] # (Auto) 0.3, Eos # (Auto) 0.0, [...] see in consultation by Dr. Smith at [facility] in [place], [place]; however, due to insurance reasons the patient transferredcare to [facility] [place] [facility]. In reviewing notes from her prior physician [...] do not have records from this from [facility] in [place]. I am requesting this to evaluate her [...] testing returned negative from prior physicians at [facility]. BRCA testing negative Follow-up September is [...] We will review her prior MRI from [facility] in May 2021 in comparison to most [...] other significant toxicities. MRI was reviewed and [facility] tumor board with Dr. Reza and [...] small focus of residual DCIS, ER 5%, KS 0%. Completed adjuvant radiation then we resumed [...] with sentinel lymph node biopsy 02/17/2022 in [place]. Adjuvant radiation completed 05/04-06/16/2022. Total of 30 [...] for coordination of care (as documented) and tcuw-tx-oqpv counseling of patient and/or family. Dictated By: Kallie Chang MD DD/ [id number] Signed By: <Electronically signed by MD Kallie Chang> 09/18/22 4477 [facility] Work Phone: 1(639) 271-941802-18-2023 Progress note Author Kallie Chang [facility] September 04, 2022 10:35pm Note Date/Time September 04, 2022 1:11pm [facility] [place] [address] Hem/Onc Follow Up Note - OP Signed Patient: Tenisha Hancock Kaitlin MR#: [id number] : 1975 Acct:[id number] Age/Sex: 47 / F Type: REG RCR [...] hydrocortisone 20mg am/10mg pm. Will f/u with [employer] next week to review symptoms. We may [...] right mastopexy on 02/17/[address] Drs. Saunders/Drew ([facility]). Her pathology returned with no evidence [...] Simons and has an appointment scheduled at [facility] to discuss josep flap surgery as [...] overall good. BRCA testing was done through [facility] and is negative. She does have left [...] I willdefer to his impression and recommendations. POARCH: This is a now 47 year old female, recently diagnosed with triple negative right breast cancer; currently undergoing neoadjuvant pembrolizumab, carboplatin AUC 4and weekly paclitaxel x6 cycles, which commenced: 07/22/2021. This is a 46-year-old female who works at [employer] with triple negative breast cancer, referred for neoadjuvant chemotherapy. Mammogramon on April 22, 2021 showed 3 new focal masses with the largest measuring 2 cm in size in the right breast. 2 additional lesions measuring 1 cm and a second 0.9 cm were also seen. The patient was referred for biopsy. Needle biopsy showed triple negative breast cancer, ER negative, KS negative, and H ER 2 -. The patient was referred to Dr. Ismael Red for Eakfpx-t-Xrju which she has had placed. She has seen my colleague Dr. Smith at the [facility] recommended neoadjuvant chemotherapy and immunotherapy. Because of insurance reasons, she will be getting her treatment here at [facility]. She has had echocardiography as well. According the patient an MRI was obtained prior to neoadjuvant therapy while she was at [facility] we are requesting this prior study. She [...] showed triple negative breast cancer, ER negative, KS negative, and HER 2 -. The patient was referred to Dr. Ismael Red for Dnqufr-c-Brla which she has had placed. She has seen my colleague Dr. Smith at the [facility] recommended neoadjuvant chemotherapy and immunotherapy. Because of insurance reasons, she will be getting her treatment here at [facility]. She has had echocardiography as well. [...] 9 cycles --Original breast MRI obtained from [facility] from May 2021, follow-up breast MRI performed [...] preoperatively in late December. 2. 02/17/2022 at [facility], Drs. Saunders/Shantal: needle localized lumpectomy with [...] Allergies Allergy (Verified 09/04/22 13:03) Home Medications xdenjzz-xerildggamkys-glnzyvya 250 mg-250 mg-65 mg tablet (Excedrin Migraine) [...] see in consultation by Dr. Smith at [facility] in [place], [place]; however, due to insurance reasons the patient transferredcare to [facility] [place] [facility]. In reviewing notes from her prior physician [...] do not have records from this from [facility] in [place]. I am requesting this to evaluate her [...] testing returned negative from prior physicians at [facility]. BRCA testing negative Follow-up September is [...] We will review her prior MRI from [facility] in May 2021 in comparison to most [...] other significant toxicities. MRI was reviewed and [facility] tumor board with Dr. Reza and [...] small focus of residual DCIS, ER 5%, KS 0%. Completed adjuvant radiation then we resumed [...] for coordination of care (as documented) and tmad-df-bift counseling of patient and/or family. Dictated By: Kallie Chang MD DD/ [id number] Signed By: <Electronically signed by MD Kallie Chang> 09/04/22 3972 [facility] Work Phone: 1(583) 394-156302-03-2023 Progress note Author Ashlie Arriaga [facility] August 21, 2022 1:13pm Note Date/Time August 14, 2022 2 :16pm [facility] at [address] [address] Hem/Onc Follow Up Note - OP Signed Patient: Tenisha Hancock MR#: [id number] : 1975 Acct:[id number] Age/Sex: 47 / F Type: REG RCR [...] hydrocortisone 20mg am/10mg pm. Will f/u with [employer] next week to review symptoms. We may [...] right mastopexy on 02/17/[address] Saunders/Drew ([facility]). Her pathology returned with no evidence [...] Simons and has an appointment scheduled at [facility] to discuss josep flap surgery as [...] overall good. BRCA testing was done through [facility] and is negative. She does have left [...] I willdefer to his impression and recommendations. 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 This is a 46-year-old female who works at [employer] with triple negative breast cancer, referred for neoadjuvant chemotherapy. Mammogramon on April 22, 2021 showed 3 new focal masses with the largest measuring 2 cm in size in the right breast. 2 additional lesions measuring 1 cm and a second 0.9 cm were also seen. The patient was referred for biopsy. Needle biopsy showed triple negative breast cancer, ER negative, KS negative, and H ER 2 -. The patient was referred to Dr. Ismael Red for Gkisuj-j-Qxki which she has had placed. [facility]. Because of insurance reasons, she will be getting her treatment here at [facility]. She has had echocardiography as well. According the patient an MRI was obtained prior to neoadjuvant therapy while she was at [facility] we are requesting this prior study. She [...] showed triple negative breast cancer, ER negative, KS negative, and HER 2 -. The patient was referred to Dr. Ismael Red for Wuhzdz-i-Gget which she has had placed. [facility]. Because of insurance reasons, she will be getting her treatment here at [facility]. She has had echocardiography as well. [...] 9 cycles --Original breast MRI obtained from [facility] from May 2021, follow-up breast MRI performed [...] preoperatively in late December. 2. 02/17/2022 at [facility], Drs. Saunders/Shantal: needle localized lumpectomy with [...] Allergies Allergy (Verified 08/06/22 13:31) Home Medications rwlvadn-fbnvevfkpmlti-jxalydty 250 mg-250 mg-65 mg tablet (Excedrin Migraine) [...] see in consultation by Dr. Smith at [facility] in [place], [place]; however, due to insurance reasons the patient transferredcare to [facility]. In reviewing notes from her prior physician [...] do not have records from this from [facility] in [place]. I am requesting this to evaluate her [...] testing returned negative from prior physicians at [facility]. BRCA testing negative Follow-up September is [...] We will review her prior MRI from [facility] in May 2021 in comparison to most [...] other significant toxicities. MRI was reviewed and [facility] tumor board with Dr. Reza and [...] small focus of residual DCIS, ER 5%, KS 0%. Completed adjuvant radiation then we resumed [...] for coordination of care (as documented) and duxq-ek-mqap counseling of patient and/or family. Dictated By: Ashlie Arriaga APRN DD/ [id number] Signed By: <Electronically signed by PETE Arriaga> 08/21/22 1313 [facility] Work Phone: 1(114) 844-908501-20-2023 Progress note Author Kallie Chang [facility] August 07, 2022 1:00pm Note Date/Time August 06, 2022 1 :39pm [facility] [place] [id number] Hem/Onc Follow Up Note - OP Signed Patient: Tenisha Hancock MR#: [id number] : 1975 Acct:[id number] Age/Sex: 47 / F Type: REG RCR [...] hydrocortisone 20mg am/10mg pm. Will f/u with [employer] next week to review symptoms. We may [...] right mastopexy on 02/17/2022 by Drs. Saunders/Drew ([facility]). Her pathology returned with no evidence [...] Simons and has an appointment scheduled at [facility] to discuss josep flap surgery as [...] overall good. BRCA testing was done through [facility] and is negative. She does have left [...] I willdefer to his impression and recommendations. 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 This is a 46-year-old female who works at [employer] with triple negative breast cancer, referred for neoadjuvant chemotherapy. Mammogramon on April 22, 2021 showed 3 new focal masses with the largest measuring 2 cm in size in the right breast. 2 additional lesions measuring 1 cm and a second 0.9 cm were also seen. The patient was referred for biopsy. Needle biopsy showed triple negative breast cancer, ER negative, KS negative, and H ER 2 -. The patient was referred to Dr. Ismael Red for Rbhvej-n-Zmjv which she has had placed. She has [facility]. Because of insurance reasons, she will be getting her treatment here at [facility]. She has had echocardiography as well. According the patient an MRI was obtained prior to neoadjuvant therapy while she was at [facility] we are requesting this prior study. She [...] showed triple negative breast cancer, ER negative, KS negative, and HER 2 -. The patient was referred to Dr. Ismael Red for Jfrxwg-j-Vqfy which she has had placed. She has [facility] my [facility]. Because of insurance reasons, she will be getting her treatment here at [facility]. She has had echocardiography as well. [...] 9 cycles --Original breast MRI obtained from [facility] from May 2021, follow-up breast MRI performed [...] preoperatively in late December. 2. 02/17/2022 at [facility], Drs. Saunders/Shantal: needle localized lumpectomy with [...] (Last Reviewed 08/07/22 @ 12:37 by Kallie hCang MD) Arthritis COVID-19 Headache High blood cholesterol [...] Allergies Allergy (Verified 08/06/22 13:31) Home Medications ilpqemv-eouyniyhuvdvy-egohoksu 250 mg-250 mg-65 mg tablet (Excedrin Migraine) [...] % (Auto) 92.9, Lymph % (Auto) 5.5, [place] % (Auto) 1.4, Eos % (Auto) 0.0, Baso % (Auto) 0.2, Nucleat RBC Rel Count 0.0, Neut # (Auto) 8.7 H, Lymph # (Auto) 0.5 L, [place] # (Auto) 0.1, Eos # (Auto) 0.0, [...] see in consultation by Dr. Smith at [facility] in [place], [place]; however, due to insurance reasons the patient transferredcare to [facility] [place] [facility]. In reviewing notes from her prior physician [...] do not have records from this from [facility] in [place]. I am requesting this to evaluate her [...] testing returned negative from prior physicians at [facility]. BRCA testing negative Follow-up September is [...] We will review her prior MRI from [facility] in May 2021 in comparison to most [...] other significant toxicities. MRI was reviewed and [facility] tumor board with Dr. Reza and [...] immunotherapy labs adjuvant cycle 2-day 1 Pembrolizumab orscompaer if new issues arise. High complexity visit [...] small focus of residual DCIS, ER 5%, KS 0%. Completed adjuvant radiation then we resumed [...] with sentinel lymph node biopsy 02/17/2022 in [place]. Adjuvant radiation completed 05/04-06/16/2022. Total of 30 [...] for coordination of care (as documented) and kbpk-qx-mffj counseling of patient and/or family. Dictated By: Kallie Chang MD DD/ [id number] Signed By: <Electronically signed by MD Kallie Chang> 08/07/22 1300 [facility] Work Phone: 1(571) 412-616801-06-2023 Progress note Author Kallie Chang [facility] July 24, 2022 11:26am Note Date/Time July 23, 2022 1: 43pm [facility] [place] [address] Hem/Onc Follow Up Note - OP Signed Patient: Tenisha Hancock MR#: [id number] : 1975 Acct:[id number] Age/Sex: 47 / F Type: REG RCR [...] hydrocortisone 20mg am/10mg pm. Will f/u with [employer] next week to review symptoms. We may [...] right mastopexy on 02/17/2022 [address] Drs. Saunders/Drew ([facility]). Her pathology returned with no evidence [...] Simons and has an appointment scheduled at [facility] to discuss josep flap surgery as [...] overall good. BRCA testing was done through [facility] and is negative. She does have left [...] I willdefer to his impression and recommendations. 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 This is a 46-year-old female who works at [employer] with triple negative breast cancer, referred for neoadjuvant chemotherapy. Mammogram onon April 22, 2021 showed 3 new focal masses with the largest measuring 2 cm in size in the right breast. 2 additional lesions measuring 1 cm and a second 0.9 cm were also seen. The patient was referred for biopsy. Needle biopsy showed triple negative breast cancer, ER negative, KS negative, and H ER 2 -. The patient was referred to Dr. Ismael Red for Qwvify-v-Zjti which she has had placed. She has seen my colleague Dr. Smith at [facility] whorecommended neoadjuvant chemotherapy and immunotherapy. Because of insurance reasons, she will be getting her treatment here at [facility]. She has had echocardiography as well. According the patient an MRI was obtained prior to neoadjuvant therapy while shewas at [facility] we are requesting this prior study. She [...] showed triple negative breast cancer, ER negative, KS negative, and HER 2 -. The patient was referred to Dr. Ismael Red for Mmnujl-g-Bgke which she has had placed. She has [facility]. Because of insurance reasons, she will be getting her treatment here at [facility]. She has had echocardiography as well. [...] 9 cycles --Original breast MRI obtained from [facility] from May 2021, follow-up breast MRI performed [...] preoperatively in late December. 2. 02/17/2022 at [facility], Drs. Saunders/Drew: needle localized lumpectomy with [...] Negative for environmental allergies and food allergies. [facility] - History Attestation statement: The following information [...] Allergies Allergy (Verified 07/23/22 13:29) Home Medications yzgfmrz-bykulqdapaqdv-bbmbmnmv 250 mg-250 mg-65 mg tablet (Excedrin Migraine) [...] % (Auto) 71.8, Lymph % (Auto) 19.9, [place] % (Auto) 6.3, Eos % (Auto) 1.3, Baso % (Auto) 0.7, Nucleat RBC Rel Count 0.2, Neut # (Auto) 4.6, Lymph # (Auto) 1.3, [place] # (Auto) 0.4, Eos # (Auto) 0.1, [...] was initially see in consultation by Dr. Smtih at [facility] in [place], [place]; however, due to insurance reasons the patient transferredcare to [facility] [place] [facility]. In reviewing notes from her prior physician [...] do not have records from this from [facility] in [place]. I am requesting this to evaluate her [...] testing returned negative from prior physicians at [facility]. BRCA testing negative Follow-up September is [...] We will review her prior MRI from [facility] in May 2021 in comparison to most [...] other significant toxicities. MRI was reviewed and [facility] tumor board with Dr. Reza and [...] neutropenia thiscycle. The patient met with Dr. eRza and will follow-up with her at end [...] with sentinel lymph node biopsy 02/17/2022 in [place]. Adjuvant radiation completed 05/04-06/16/2022. Total of 30 [...] for coordination of care (as documented) and urzj-fa-ldbl counseling of patient and/or family. Dictated By: Kallie Chang MD DD/ 1342 Signed By: <Electronically signed by MD Kallie Chang> 07/24/22 1126 [facility] Work Phone: 1(784) 656-914512-28-2022 Progress note Author Stacie Thomas [facility] July 15, 2022 1:57pm Note Date/Time July 15, 2022 9:31am [facility] [place] [address] Rad Onc Follow Up Note - OP Signed Patient: Tenisha Hancock MR#: [id number] : 1975 Acct:[id number] Age/Sex: 47 / F Type: REG RCR [...] 0 out of 5 lymph nodes involved. [id number]. In review of her operative note as [...] ductal carcinoma, 9 mm, provisional grade 3, ER/KS negative and HER2 negative. Per the available notes her BRCA testing was done through [facility] and was negative. Also appears the right breast mass was palpable in the lower mid quadrant of the breast. [facility]. Due to insurance reasons she received her systemic therapy here at [facility]. PET/CT was denied by insurance. CT scan of the chest abdomen pelvis on July 16, 2021 was negative for metastatic disease. Her clinical stage at presentation was cT2N0. June 11, 2021 patient did undergo an MRI in [place]. I do not have that report available [...] 0 out of 5 lymph nodes negative. [id number]. Pathology was negative for LVSI. Of note [...] <Electronically signed by Stacie Thomas MD> 07/15/22 2455 [facility] Work Phone: 1(207) 829-686412-02-2022 Progress note Author Kallie Chang [facility] June 19, 2022 9:06am Note Date/Time June 18, 2022 1 0:26am [place] [address] Hem/Onc Follow Up Note - OP Signed Patient: Tenisha Hancock MR#: [id number] : 1975 Acct:[id number] Age/Sex: 47 / F Type: REG RCR [...] hydrocortisone 20mg am/10mg pm. Will f/u with [employer] next week to review symptoms. We may [...] right mastopexy on 02/17/2022 by Drs. Saunders/Drew ([facility]). Her pathology returned with no evidence [...] Simons and has an appointment scheduled at [facility] to discuss josep flap surgery as [...] axilla. Although the patient previously saw Dr. Grillis at diagnosis, she is uncertain of the [...] overall good. BRCA testing was done through [facility] and is negative. She does have left [...] I willdefer to his impression and recommendations. 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 This is a 46-year-old female who works at [employer] with triple negative breast cancer, referred for neoadjuvant chemotherapy. Mammogramon on April 22, 2021 showed 3 new focal masses with the largest measuring 2 cm in size in the right breast. 2 additional lesions measuring 1 cm and a second 0.9 cm were also seen. The patient was referred for biopsy. Needle biopsy showed triple negative breast cancer, ER negative, KS negative, and H ER 2 -. The patient was referred to Dr. Ismael Red for Hblxmi-b-Quuu which she has had placed. She has seen my colleague Dr. Smith at the [facility] recommended neoadjuvant chemotherapy and immunotherapy. Because of insurance reasons, she will be getting her treatment here at [facility]. She has had echocardiography as well. According the patient an MRI was obtained prior to neoadjuvant therapy while she was at [facility] we are requesting this prior study. She [...] showed triple negative breast cancer, ER negative, KS negative, and HER 2 -. The patient was referred to Dr. Ismael Red for Xsasks-r-Ieqy which she has had placed. She has seen my colleague Dr. Smith at the [facility] recommended neoadjuvant chemotherapy and immunotherapy. Because of insurance reasons, she will be getting her treatment here at [facility]. She has had echocardiography as well. [...] 9 cycles --Original breast MRI obtained from [facility] from May 2021, follow-up breast MRI performed [...] preoperatively in late December. 2. 02/17/2022 at [facility], Drs. Saunders/Drew: needle localized lumpectomy with [...] Allergies Allergy (Verified 03/12/22 08:56) Home Medications sgpzflg-hsuwzlobfkwmy-dtxlazug 250 mg-250 mg-65 mg tablet (Excedrin Migraine) [...] % (Auto) 69.1, Lymph % (Auto) 17.2, [place] % (Auto) 10.3, Eos % (Auto) 2.7, Baso % (Auto) 0.7, Nucleat RBC Rel Count 0.0, Neut # (Auto) 3.5, Lymph # (Auto) 0.9 L, [place] # (Auto) 0.5, Eos # (Auto) 0.1, [...] see in consultation by Dr. Smith at [facility] in [place], [place]; however, due to insurance reasons the patient transferredcare to [facility]. In reviewing notes from her prior physician [...] do not have records from this from [facility] in [place]. I am requesting this to evaluate her [...] testing returned negative from prior physicians at [facility]. BRCA testing negative Follow-up September is [...] We will review her prior MRI from [facility] in May 2021 in comparison to most [...] other significant toxicities. MRI was reviewed and [facility] tumor board with Dr. Reza and [...] with sentinel lymph node biopsy 02/17/2022 in [place]. Adjuvant radiation completed 05/04-06/16/2022. Total of 30 [...] giving hydrocortisone for symptom management. Reassess by [employer] for tolerance of therapy in 1 week. Good pathologicresponse with DCIS only on pathology Coordination of Care & Counseling Time: Greater than 50% of time spent with patient was for coordination of care (as documented) and vexn-tm-tzdr counseling of patient and/or family. Dictated By: Kallie Chang MD DD/ [id number] Signed By: <Electronically signed by MD Kallie Chang> 06/19/22 09 [facility] Work Phone: 1(894) 984-542009-30-2022 Progress note Author Stacie Thomas [facility] April 17, 2022 9:21am Note Date/Time April 16, 2022 9:02am [facility] [place] [address] Rad Onc Follow Up Note - OP Signed with Addenda Patient: Tenisha Hancock MR#: [id number] : 1975 Acct:[id number] Age/Sex: 47 / F Type: REG RCR [...] 0 out of 5 lymph nodes involved. [id number]. In review of her operative note as [...] ductal carcinoma, 9 mm, provisional grade 3, ER/KS negative and HER2 negative. Per the available notes her BRCA testing was done through [facility] and was negative. Also appears the right breast mass was palpable in the lower mid quadrant of the breast. [facility] and immunotherapy. Due to insurance reasons she received her systemic therapy here at [facility]. PET/CT was denied by insurance. CT scan of the chest abdomen pelvis on July 16, 2021 was negative for metastatic disease. Her clinical stage at presentation was cT2N0. June 11, 2021 patient did undergo an MRI in [place]. I do not have that report available [...] 0 out of 5 lymph nodes negative. [id number]. Pathology was negative for LVSI. Of note [...] Stacie Thomas MD> 04/16/22 1256 [facility] Work Phone: [phone] NotePROCEDURE: XR GI UPPER AIR KUB DUAL [...] Electronically authenticated by: BARBER VASQUEZ Date: 2022 14:36[facility]09-13-2022 NotePROCEDURE: XR GI UPPER AIR KUB [...] Electronically authenticated by: BARBER VASQUEZ Date: 2022 14:36[facility]09-01-2022 Consult note Author Stacie Thomas [facility] March 19, 2022 10:56am Note Date/Time March 18, 2022 3: [address] [place] [address] [place] [address] Rad Onc Consult Note - OP Signed Patient: Tenisha Hacnock MR#: [id number] : 1975 Acct:[id number] Age/Sex: 46 / F Type: REG RCR [...] 0 out of 5 lymph nodes involved. [id number]. In review of her operative note as [...] ductal carcinoma, 9 mm, provisional grade 3, ER/KS negative and HER2 negative. Per the available notes her BRCA testing was done through [facility] and was negative. Also appears the right breast mass was palpable in the lower mid quadrant of the breast. [facility]. Due to insurance reasons she received her systemic therapy here at [facility]. PET/CT was denied by insurance. CT scan of the chest abdomen pelvis on July 16, 2021 was negative for metastatic disease. Her clinical stage at presentation was cT2N0. June 11, 2021 patient did undergo an MRI in [place]. I do not have that report available [...] 0 out of 5 lymph nodes negative. [id number]. Pathology was negative for LVSI. Of note [...] work. Has no other breast related complaints. [facility] - Medical History Medical History: Medical History [...] Allergies Allergy (Verified 03/12/22 08:56) Home Medications siagzya-rcbrbdqbhrnzs-vsmdzlfx 250 mg-250 mg-65 mg tablet (Excedrin Migraine) [...] Stacie Thomas MD> 03/19/22 1056 [facility] Work Phone: 1(114) 341-992908-31-2022 Consult note Author Stacie Thomas [facility] March 19, 2022 10:56am Note Date/Time March 18, 2022 3: 31pm [place] [address] Rad Onc Consult Note - OP Signed Patient: Tenisha Hancock MR#: [id number] : 1975 Acct:[id number] Age/Sex: 46 / F Type: REG RCR [...] 0 out of 5 lymph nodes involved. [id number]. In review of her operative note as [...] ductal carcinoma, 9 mm, provisional grade 3, ER/KS negative and HER2 negative. Per the available notes her BRCA testing was done through [facility] and was negative. Also appears the right breast mass was palpable in the lower mid quadrant of the breast. [facility]. Due to insurance reasons she received her systemic therapy here at [facility]. PET/CT was denied by insurance. CT scan of the chest abdomen pelvis on July 16, 2021 was negative for metastatic disease. Her clinical stage at presentation was cT2N0. June 11, 2021 patient did undergo an MRI in [place]. I do not have that report available [...] 0 out of 5 lymph nodes negative. [id number]. Pathology was negative for LVSI. Of note [...] work. Has no other breast related complaints. [facility] - Medical History Medical History: Medical History [...] Allergies Allergy (Verified 03/12/22 08:56) Home Medications qmojnsa-gdimkgkidvpqo-elhvqajq 250 mg-250 mg-65 mg tablet (Excedrin Migraine) [...] 13:31 Dictated By: Stacie Thomas MD DD/ [id number] Signed By: <Electronically signed by Stacie Thomas MD> 03/19/22 6492 [facility] Work Phone: 1(565) 554-801208-25-2022 Progress note Author Kallie Chang [facility] March 12, 2022 4:36pm Note Date/Time March 12, 2022 9: 49am [facility] [place] [id number] Hem/Onc Follow Up Note - OP Signed Patient: Tenisha Hancock MR#: [id number] : 1975 Acct:[id number] Age/Sex: 46 / F Type: REG RCR [...] right mastopexy on 02/17/2022 by Drs. Saunders/Drew ([facility]). Her pathology returned with no evidence [...] Simons and has an appointment scheduled at [facility] to discuss josep flap surgery as [...] overall good. BRCA testing was done through [facility] and is negative. She does have left [...] I willdefer to his impression and recommendations. POARCH: This is a 46 year old female, recently diagnosed with triple negative right breast cancer; currently undergoing neoadjuvant pembrolizumab, carboplatin AUC 4 and weekly paclitaxel x6 cycles, which commenced: 07/22/2021. This is a 46-year-old female who works at [employer] with triple negative breast cancer, referred for neoadjuvant chemotherapy. Mammogramon on April 22, 2021 showed 3 new focal masses with the largest measuring 2 cm in size in the right breast. 2 additional lesions measuring 1 cm and a second 0.9 cm were also seen. The patient was referred for biopsy. Needle biopsy showed triple negative breast cancer, ER negative, KS negative, and H ER 2 -. The patient was referred to Dr. Ismael Red for Awozzb-m-Gwqu which she has had placed. She has seen my colleague Dr. Smith at the [facility] recommended neoadjuvant chemotherapy and immunotherapy. Because of insurance reasons, she will be getting her treatment here at [facility]. She has had echocardiography as well. According the patient an MRI was obtained prior to neoadjuvant therapy while she was at [facility] we are requesting this prior study. She [...] showed triple negative breast cancer, ER negative, KS negative, and HER 2 -. The patient was referred to Dr. Ismael Red for Mobbjq-t-Ityo which she has had placed. She has seen my [facility]. [facility] [facility] and immunotherapy. Because of insurance reasons, she will be getting her treatment here at [facility]. She has had echocardiography as well. [...] 9 cycles --Original breast MRI obtained from [facility] from May 2021, follow-up breast MRI performed [...] preoperatively in late December. 2. 02/17/2022 at [facility], Drs. Saunders/Drew: needle localized lumpectomy with [...] Allergies Allergy (Verified 03/12/22 08:56) Home Medications eknjyoq-tizuckgvrgyiw-chxozklj 250 mg-250 mg-65 mg tablet (Excedrin Migraine) [...] therapy Copies to: MD Meghana Wilson MD, [facility]~ Weight: 196 lb Performed By: ARNOLD [...] see in consultation by Dr. Smith at [facility] in [place], [place]; however, due to insurance reasons the patient transferredcare to [facility] [place] [facility]. In reviewing notes from her prior physician [...] do not have records from this from [facility] in [place]. I am requesting this to evaluate her [...] testing returned negative from prior physicians at [facility]. BRCA testing negative Follow-up September is [...] We will review her prior MRI from [facility] in May 2021 in comparison to most [...] other significant toxicities. MRI was reviewed and [facility] tumor board with Dr. Reza and [...] small focus of residual DCIS, ER 5%, KS 0%. Referring for adjuvant radiation then we [...] for coordination of care (as documented) and gzsk-om-wisb counseling of patient and/or family. 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 At times you may have [...] drainage Our office numbers are as follows: [place] office: documented in this encounterBON [facility]ENTER[facility] [employer] Phone: 1(256) 348-269907-14-2022 Miscellaneous Notes* Telephone Encounter - Nat Ricketts RN - 01/29/2022 5:25 PM EDT Noticed that patient's appointment for 01/[address] Lea was cancelled Called and lmom with my name and number for her to call back if this was cancelled accidentally somehow and we would be happy to put her back on the schedule documented in this encounterUniversity Hospitals Parma Medical Center07-07-2022 Miscellaneous Notes* Telephone Encounter - Nat Ricketts [...] on voicemail to return her call at [phone]. Thank you. * Telephone Encounter - Nat [...] 12:46 PM EDT Imaging reports rec'd reviewed: [place] 04/2021 - R screening abnl 2.4 cm [...] I see a teaching note 06/23/21 at [facility] but limited documentation since then as [...] EDT Noted I will check when in [place] on Wednesday. * Telephone Encounter - Alvin Alexis - 01/16/2022 1:23 PM EDT Pt calling regarding faxed info she had sent to [facility]. Pt asking if fax was received by office or if she needs to do anything else. Pt requesting call back to discuss. * Telephone Encounter - Lucinda Alvarez Ma - 01/16/2022 9:13 AM EDT I called pt to discuss where all outside workup has been, she has had studies at both [facility] and [place]. I was able to have patient get a release and will also fax to [facility] what she hasthus far. Our office will [...] slides and reports SHANNAN documented in this encounterUniversity Hospitals Parma Medical Center06-30-2022 NoteHNO ID: [id number] Author: Yasemin Turnergess Service: ? Author Type: ? Type: Progress Notes Filed: 01/15/2022 4:35 PM Note Text: DATE OF PHOTOS: 01/15/2022 Body Part: Breasts and Abdomen Yasemin Bernal January 15, 2022 4:35 [facility]06-29-2022 NoteHNO ID: [id number] Author: Fahad Russell MD Service: ? Author Type: Physician Type: Progress Notes Filed: 01/27/2022 4:45 PM Note Text: BREAST RECONSTRUCTION EVALUATION CC: Tenisha Hancock is a 46 year old female that presents today for breast reconstruction evaluation. 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 Dr. Reza in [place] is her breast surgeon. 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 Tenisha Hancock was given supplemental information on [...] Past Histories independently gathered by the clinical account support analyst and the remaining scribed note accurately describes my personal service to the patient. patient's condition reviewed and examined ? plan and options of management, complexity, risk benefit limitation potential complication, success /failure of management, expected result and recovery discussed ? I spent 30 minutes in the visit, with more than 50% of the total azkk-ds-ntcq time of the visit in counseling / coordination of care. ? CHER[facility] ContrerasKindred Healthcare06-29-2022 History of Present illness Narrative* Fahad Russell MD - 01/14/2022 4:48 PM EDT BREAST RECONSTRUCTION EVALUATION CC: Tenisha Hancock is a 46 year old female that presents today for breast reconstruction evaluation. 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 in [place] is her breast surgeon. 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 Tenisha Hancock was given supplemental information on [...] Past Histories independently gathered by the clinical account support analyst and the remaining scribed note accurately describes my personal service to the patient. patient's condition reviewed and examined plan and options of management, complexity, risk benefit limitation potential complication, success/failure of management, expected result and recovery discussed I spent 30 minutes in the visit, with more than 50% of the total rymf-fs-bdyu time of the visit in counseling / coordination of care. Fahad Russell MD documented in this encounterUniversity Hospitals Parma Medical Center06-08-2022 Progress note Author Ashlie [facility]tsK[facility] December 24, 2021 8:46pm Note Date/Time December 24, 2021 3:07p kaitlin [facility] [place] [address] Hem/Onc Follow Up Note - OP Signed Patient: Tenisha Hancock MR#: [id number] : 1975 Acct:[id number] Age/Sex: 46 / F Type: REG RCR Copies to: MD Uriel Wilson DO Kim E Knight, MD~ Subjective Date/Time of Service: Date of Service: 12/24/2021 Time of Service: 15:07 Chief Complaint: Patient is here for a 3 week follow up [facility] labs for review. Has multiple [...] Simons and has an appointment scheduled at [facility] to discuss josep flap surgery as [...] overall good. BRCA testing was done through [facility] and is negative. She does have left [...] I willdefer to his impression and recommendations. 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 This is a 46-year-old female who works at [employer] with triple negative breast cancer, referred for neoadjuvant chemotherapy. Mammogramon on April 22, 2021 showed 3 new focal masses with the largest measuring 2 cm in size in the right breast. 2 additional lesions measuring 1 cm and a second 0.9 cm were also seen. The patient was referred for biopsy. Needle biopsy showed triple negative breast cancer, ER negative, KS negative, and H ER 2 -. The patient was referred to Dr. Ismael Red for Lasoad-i-Vznn which she has had placed. [facility]. Because of insurance reasons, she will be getting her treatment here at [facility]. She has had echocardiography as well. According the patient an MRI was obtained prior to neoadjuvant therapy while she was at [facility] we are requesting this prior study. She [...] showed triple negative breast cancer, ER negative, KS negative, and HER 2 -. The patient was referred to Dr. Ismael Red for Ajahji-c-Gvuc which she has had placed. She has [facility]. Because of insurance reasons, she will be getting her treatment here at [facility]. She has had echocardiography as well. [...] 9 cycles --Original breast MRI obtained from [facility] from May 2021, follow-up breast MRI performed [...] Allergies Allergy (Verified 12/03/21 13:51) Home Medications anjnzof-uyksnfdaphwus-ukwepdol 250 mg-250 mg-65 mg tablet (Excedrin Migraine) [...] see in consultation by Dr. Smith at [facility] in [place], [place]; however, due to insurance reasons the patient transferredcare to [facility]. In reviewing notes from her prior physician [...] do not have records from this from [facility] in [place]. I am requesting this to evaluate her [...] testing returned negative from prior physicians at [facility]. BRCA testing negative Follow-up September is [...] We will review her prior MRI from [facility] in May 2021 in comparison to most [...] other significant toxicities. MRI was reviewed and [facility] tumor board with Dr. Reza and [...] for coordination of care (as documented) and kifq-iu-rwhn counseling of patient and/or family. Dictated By: Ashlie Arriaga APRN DD/ 1507 Signed By: <Electronically signed by PETE Arriaga> 12/24/212045 [facility] Work Phone: 1([phone]) 395-656205-18-2022 Progress note Author Kallie Chang [facility] December 03, 2021 2:19pm Note Date/Time December 03, 2021 2:02p [facility] [place] [address] Hem/Onc Follow Up Note - OP Signed Patient: Tenisha Hancock MR#: [id number] : 1975 Acct:[id number] Age/Sex: 46 / F Type: REG RCR [...] overall good. BRCA testing was done through [facility] and is negative. She does have left [...] I willdefer to his impression and recommendations. 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 This is a 46-year-old female who works at [employer] with triple negative breast cancer, referred for neoadjuvant chemotherapy. Mammogramon on April 22, 2021 showed 3 new focal masses with the largest measuring 2 cm in size in the right breast. 2 additional lesions measuring 1 cm and a second 0.9 cm were also seen. The patient was referred for biopsy. Needle biopsy showed triple negative breast cancer, ER negative, KS negative, and H ER 2 -. The patient was referred to Dr. Ismael Red for Kicata-a-Eyee which she has had placed. She has seen my colleague Dr. Smith at the [facility] recommended neoadjuvant chemotherapy and immunotherapy. Because of insurance reasons, she will be getting her treatment here at [facility]. She has had echocardiography as well. According the patient an MRI was obtained prior to neoadjuvant therapy while she was at [facility] we are requesting this prior study. She [...] showed triple negative breast cancer, ER negative, KS negative, and HER 2 -. The patient was referred to Dr. Ismael Red for Ycyako-e-Vvue which she has had placed. She has seen my colleague Dr. Smith at the [facility] recommended neoadjuvant chemotherapy and immunotherapy. Because of insurance reasons, she will be getting her treatment here at [facility]. She has had echocardiography as well. [...] 9 cycles --Original breast MRI obtained from [facility] from May 2021, follow-up breast MRI performed [...] Allergies Allergy (Verified 12/03/21 13:51) Home Medications eaynyco-slmppvecvgxjz-lvssudma 250 mg-250 mg-65 mg tablet (Excedrin Migraine) [...] Left breast without masses, left upper chest Ssgpbg-p-Zpks in place and nontender. No axillary fullness [...] % (Auto) 80.1, Lymph % (Auto) 16.3, [place] % (Auto) 2.6, Eos % (Auto) 0.5, Baso % (Auto) 0.5, Neut # (Auto) 6.9, Lymph # (Auto) 1.4, [place] # (Auto) 0.2, Eos # (Auto) 0.0, Baso # (Auto) 0.0, Nucleated RBC % (auto) 0.1, Toxic Granulation Slight, Dohle Bodies Slight, Platelet Estimate Normal, Plt Morphology Comment Normal, RBC Morphology N/A, Macrocytosis Slight, Tear Drop Cells Slight 11/25/21 14:45: PHA Creatinine Clear 105.09, Sodium 137, Potassium 4.2, Bkeitdvn481, Carbon Dioxide 22.6, BUN 14, Creatinine 0.73, [...] % (Auto) 71.5, Lymph % (Auto) 19.6, [place] % (Auto) 7.6, Eos % (Auto) 0.4, Baso % (Auto) 0.9, Neut # (Auto) 6.2, Lymph # (Auto) 1.7, [place] # (Auto) 0.7, Eos # (Auto) 0.0, [...] see in consultation by Dr. Smith at [facility] in [place], [place]; however, due to insurance reasons the patient transferredcare to [facility]. In reviewing notes from her prior physician [...] do not have records from this from [facility] in [place]. I am requesting this to evaluate her [...] testing returned negative from prior physicians at [facility]. BRCA testing negative Follow-up September is [...] We will review her prior MRI from [facility] in May 2021 in comparison to most [...] other significant toxicities. MRI was reviewed and [facility] tumor board with Dr. Reza and [...] for coordination of care (as documented) and nqsz-yz-weru counseling of patient and/or family. Dictated By: Kallie Chang MD DD/ 1401 Signed By: <Electronically signed by MD Kallie Chang> 12/03/21 1419 [facility] Work Phone: 1([phone]) 628-486904-28-2022 Progress note Author Kallie Chang [facility] November 13, 2021 3:34pm Note Date/Time November 12, 2021 3:0 7pm [facility] at [address] [address] Hem/Onc Follow Up Note - OP Signed Patient: Tenisha Hancock MR#: [id number] : 1975 Acct:[id number] Age/Sex: 46 / F Type: REG RCR [...] overall good. BRCA testing was done through [facility] and is negative. She does have left [...] I willdefer to his impression and recommendations. 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 This is a 46-year-old female who works at [employer] with triple negative breast cancer, referred for neoadjuvant chemotherapy. Mammogramon on April 22, 2021 showed 3 new focal masses with the largest measuring 2 cm in size in the right breast. 2 additional lesions measuring 1 cm and a second 0.9 cm were also seen. The patient was referred for biopsy. Needle biopsy showed triple negative breast cancer, ER negative, KS negative, and H ER 2 -. The patient was referred to Dr. Ismael Red for Oqouud-j-Wnas which she has had placed. She has [facility]. Because of insurance reasons, she will be getting her treatment here at [facility]. She has had echocardiography as well. According the patient an MRI was obtained prior to neoadjuvant therapy while she was at [facility] we are requesting this prior study. She [...] showed triple negative breast cancer, ER negative, KS negative, and HER 2 -. The patient was referred to Dr. Ismael Red for Ebebes-a-Irmm which she has had placed. She has seen my colleague Dr. Smith at the [facility] recommended neoadjuvant chemotherapy and immunotherapy. Because of insurance reasons, she will be getting her treatment here at [facility]. She has had echocardiography as well. [...] 9 cycles --Original breast MRI obtained from [facility] from May 2021, follow-up breast MRI performed [...] Allergies Allergy (Verified 10/22/21 10:19) Home Medications jrflvbz-outufbvtunroh-mpwqzlep 250 mg-250 mg-65 mg tablet (Excedrin Migraine) [...] Left breast without masses, left upper chest Mmdfof-u-Vloa in place and nontender. No axillary fullness [...] Creatinine Clear 145.60, Sodium 136, Potassium 3.6, Djcblcct597, Carbon Dioxide 23.3, BUN 7 L, Creatinine [...] see in consultation by Dr. Smith at [facility] in [place], [place]; however, due to insurance reasons the patient transferredcare to [facility]. In reviewing notes from her prior physician [...] do not have records from this from [facility] in [place]. I am requesting this to evaluate her [...] testing returned negative from prior physicians at [facility]. BRCA testing negative Follow-up September is [...] We will review her prior MRI from [facility] in May 2021 in comparison to most [...] other significant toxicities. MRI was reviewed and [facility] tumor board with Dr. Reza and [...] for coordination of care (as documented) and duuy-cy-lmef counseling of patient and/or family. Dictated By: Kallie Chang MD DD/ 1507 Signed By: <Electronically signed by MD Kallie Chang> 11/13/21 1534 [facility] Work Phone: 1(743) 349-525104-06-2022 Progress note Author Kallie Chang [facility] October 22, 2021 4:22pm Note Date/Time October 22, 2021 10:2 8am [facility] [place] [address] Hem/Onc Follow Up Note - OP Signed Patient: Tenisha Hancock MR#: [id number] : 1975 Acct:[id number] Age/Sex: 46 / F Type: REG RCR [...] overall good. BRCA testing was done through [facility] and is negative. She does have left [...] I willdefer to his impression and recommendations. 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 This is a 46-year-old female who works at [employer] with triple negative breast cancer, referred for neoadjuvant chemotherapy. Mammogramon on April 22, 2021 showed 3 new focal masses with the largest measuring 2 cm in size in the right breast. 2 additional lesions measuring 1 cm and a second 0.9 cm were also seen. The patient was referred for biopsy. Needle biopsy showed triple negative breast cancer, ER negative, KS negative, and H ER 2 -. The patient was referred to Dr. Ismael Red for Vmmyym-m-Vbaf which she has had placed. She has [facility]. Because of insurance reasons, she will be getting her treatment here at [facility]. She has had echocardiography as well. According the patient an MRI was obtained prior to neoadjuvant therapy while she was at [facility] we are requesting this prior study. She [...] showed triple negative breast cancer, ER negative, KS negative, and HER 2 -. The patient was referred to Dr. Ismael Red for Hmxxic-j-Ifis which she has had placed. She has [facility] my [facility]. Because of insurance reasons, she will be getting her treatment here at [facility]. She has had echocardiography as well. [...] 9 cycles --Original breast MRI obtained from [facility] from May 2021, follow-up breast MRI performed [...] Allergies Allergy (Verified 10/22/21 10:19) Home Medications avdannt-pbraehqrxsfxs-kymtuhgq 250 mg-250 mg-65 mg tablet (Excedrin Migraine) [...] lymphadenopathy. Left breast withoutmasses, left upper chest Wtzotl-h-Bzub in place and nontender. No axillary fullness [...] H, MCHC 33.7, RDW 16.7 H, Plt Jomfi098 L, MPV 7.1, Nucleated RBC % (auto) [...] IMM Impression dictated by: Jamari Guzman Jr., DSavanahOSavanah10/13/2021 3:12 PM - Other Results Results/Comments: Date of Service: 10/14/21 [facility] echo transthoracic: monitoring for chemotherapy Interpretation Summary [...] see in consultation by Dr. Smith at [facility] in [place], [place]; however, due to insurance reasons the patient transferredcare to [facility]. In reviewing notes from her prior physician [...] do not have records from this from [facility] in [place]. I am requesting this to evaluate her [...] testing returned negative from prior physicians at [facility]. BRCA testing negative Follow-up September is [...] We will review her prior MRI from [facility] in May 2021 in comparison to most [...] other significant toxicities. MRI was reviewed and [facility] tumor board with Dr. Reza and [...] management Moderate complexity visit for discussion and [facility] tumor board, review of MRI and [...] for coordination of care (as documented) and zuow-gt-oqxf counseling of patient and/or family. Dictated By: Kallie Chang MD DD/ 1027 Signed By: <Electronically signed by MD Kallie Chang> 10/22/21 9253 [facility] Work Phone: 1(370) 584-956203-24-2022 Progress note Author Kallie Chang [facility] October 09, 2021 2:48pm Note Date/Time October 08, 2021 11: 37[facility] at [address] [address] Hem/Onc Follow Up Note - OP Signed Patient: Tenisha Hancock MR#: [id number] : 1975 Acct:[id number] Age/Sex: 46 / F Type: REG RCR [...] overall good. BRCA testing was done through [facility] and is negative. She does have left [...] I willdefer to his impression and recommendations. 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 This is a 46-year-old female who works at [employer] with triple negative breast cancer, referred for neoadjuvant chemotherapy. Mammogramon on April 22, 2021 showed 3 new focal masses with the largest measuring 2 cm in size in the right breast. 2 additional lesions measuring 1 cm and a second 0.9 cm were also seen. The patient was referred for biopsy. Needle biopsy showed triple negative breast cancer, ER negative, KS negative, and H ER 2 -. The patient was referred to Dr. Ismael Red for Jsrtvg-o-Myhd which she has had placed. She has seen my colleague Dr. Smith at the [facility] recommended neoadjuvant chemotherapy and immunotherapy. Because of insurance reasons, she will be getting her treatment here at [facility]. She has had echocardiography as well. According the patient an MRI was obtained prior to neoadjuvant therapy while she was at [facility] we are requesting this prior study. She [...] showed triple negative breast cancer, ER negative, KS negative, and HER 2 -. The patient was referred to Dr. Ismael Red for Tmuzsf-g-Wgjs which she has had placed. She has seen my colleague Dr. Smith at the [facility] recommended neoadjuvant chemotherapy and immunotherapy. Because of insurance reasons, she will be getting her treatment here at [facility]. She has had echocardiography as well. [...] 9 cycles --Original breast MRI obtained from [facility] from May 2021, follow-up breast MRI performed [...] PO Q6H PRN 07/03/21 [History Confirmed 10/08/21] giirngw-ypmbljqaoquym-qacleoli 250 mg-250 mg-65 mg tablet (Excedrin Migraine) [...] Left breast without masses, left upper chest Ukfirg-b-Xkbr in place and nontender. No axillary fullness [...] Creatinine Clear 110.24, Sodium 136, Potassium 3.7, Witdivzh482, Carbon Dioxide 22.8, BUN 7 L, Creatinine [...] % (Auto) 65.5, Lymph % (Auto) 30.1, [place] % (Auto) 3.7, Eos % (Auto) 0.4, Baso % (Auto) 0.3, Neut # (Auto) 4.0, Lymph # (Auto) 1.8, [place] # (Auto) 0.2, Eos # (Auto) 0.0, [...] see in consultation by Dr. Smith at [facility] in [place], [place]; however, due to insurance reasons the patient transferredcare to [facility]. In reviewing notes from her prior physician [...] do not have records from this from [facility] in [place]. I am requesting this to evaluate her [...] testing returned negative from prior physicians at [facility]. BRCA testing negative Follow-up September is [...] We will review her prior MRI from [facility] in May 2021 in comparison to most [...] for coordination of care (as documented) and faqr-mq-qgrj counseling of patient and/or family. Dictated By: Kallie Chang MD DD/ 1136 Signed By: <Electronically signed by MD Kallie Chang> 10/09/21 1448 [facility] Work Phone: 1(481) 705-646503-09-2022 Progress note Author Kallie Chang [facility] September 24, 2021 11:25am Note Date/Time September 24, 2021 8:11 am [place] [address] Hem/Onc Follow Up Note - OP Signed Patient: Tenisha Hancock MR#: [id number] : 1975 Acct:[id number] Age/Sex: 46 / F Type: REG RCR [...] overall good. BRCA testing was done through [facility] and is negative. She does have left [...] I willdefer to his impression and recommendations. 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 This is a 46-year-old female who works at [employer] with triple negative breast cancer, referred for neoadjuvant chemotherapy. Mammogramon on April 22, 2021 showed 3 new focal masses with the largest measuring 2 cm in size in the right breast. 2 additional lesions measuring 1 cm and a second 0.9 cm were also seen. The patient was referred for biopsy. Needle biopsy showed triple negative breast cancer, ER negative, KS negative, and H ER 2 -. The patient was referred to Dr. Ismael Red for Rkdpwv-f-Wyos which she has had placed. She [facility]. Because of insurance reasons, she will be getting her treatment here at [facility]. She has had echocardiography as well. According the patient an MRI was obtained prior to neoadjuvant therapy while she was at [facility] we are requesting this prior study. She [...] showed triple negative breast cancer, ER negative, KS negative, and HER 2 -. The patient was referred to Dr. Ismael Red for Jlfthb-x-Onnd which she has had placed. She has [facility] my [facility]. Because of insurance reasons, she will be getting her treatment here at [facility]. She has had echocardiography as well. [...] PO Q6H PRN 07/03/21 [History Confirmed 09/24/21] cydabcq-nzpxmxglmqhzl-dvzvpopj 250 mg-250 mg-65 mg tablet (Excedrin Migraine) [...] Left breast without masses, left upper chest Wszoso-t-Cuzx in place and nontender. No axillary fullness [...] Impressions We will request outside MRI from [facility] from baseline. - Other Results Results/Comments: Prior notes from [facility] CT scan showed echocardiogram 06/19/2021 with [...] see in consultation by Dr. Smith at [facility] in [place], [place]; however, due to insurance reasons the patient transferredcare to [facility]. In reviewing notes from her prior physician [...] do not have records from this from [facility] in [place]. I am requesting this to evaluate her [...] testing returned negative from prior physicians at [facility]. BRCA testing negative Today in follow-up [...] for coordination of care (as documented) and jkeg-gg-noue counseling of patient and/or family. Dictated By: Kallie Chang MD DD/ 0810 Signed By: <Electronically signed by MD Kallie Chang> 09/24/21 [facility] Work Phone: 1([phone]) 426-303002-28-2022 Evaluation note* Encounter Date Diagnosis Assessment Notes [...] those arrangements should she want further investigation. 28 Aug, 2021 Cervical spondylosis (ICD-10 - M47.812) [employer] Other 02-02-2022 Progress note Author Salbador Phoenix [facility] August 20, 2021 2:47pm Note Date/Time August 20, 2021 2 :45pm [facility] [place] [address] Hem/Onc Follow Up Note - OP Signed Patient: Tenisha Hancock MR#: [id number] : 1975 Acct:[id number] Age/Sex: 46 / F Type: REG RCR [...] overall good. BRCA testing was done through [facility] and is negative. She does have left [...] I willdefer to his impression and recommendations. POARCH: This is a 46 year old female, [...] showed triple negative breast cancer, ER negative, KS negative, and HER 2-. The patient was referred to Dr. Ismael Red for Rgapup-z-Xjyx which she has had placed. She has [facility]. Because of insurance reasons, she will be getting her treatment here at [facility]. She has had echocardiography as well. [...] PO Q6H PRN 07/03/21 [History Confirmed 08/20/21] lrotmyw-ndnxylumcylnx-rxwzmjpj 250 mg-250 mg-65 mg tablet (Excedrin Migraine) [...] % (Auto) 58.0, Lymph % (Auto) 36.6, [place] % (Auto) 3.9, Eos % (Auto) 1.0, Baso % (Auto) 0.5, Neut # (Auto) 3.2, Lymph # (Auto) 2.0, [place] # (Auto) 0.2, Eos # (Auto) 0.1, [...] see in consultation by Dr. Smith at [facility] in [place], [place]; however, due to insurance reasons the patient transferredcare to [facility]. She commenced neoadjuvant Carboplatin/Paclitaxel/Pembrolizumab therapy on 07/22/2021; [...] for coordination of care (as documented) and kwkw-sc-xbgr counseling of patient and/or family. Dictated By: Salbador Phoenix MD DD/ 40 Signed By: <Electronically signed by MD Salbador Phoenix> 08/20/21 1447 [facility] Work Phone: 1([phone]) 864-616201-13-2022 Progress note Author Jazmin Monsivais [facility] July 31, 2021 3:54pm Note Date/Time July 31, 2021 3 :07pm [facility] at [address] [address] Hem/Onc Follow Up Note - OP Signed Patient: Tenisha Hancock MR#: [id number] : 1975 Acct:[id number] Age/Sex: 46 / F Type: REG RCR [...] showed triple negative breast cancer, ER negative, KS negative, and HER 2 -. The patient was referred to Dr. Ismael Red for Oxmwpl-r-Zyid which she has had placed. She has [facility]. Because of insurance reasons, she will be getting her treatment here at [facility]. She has had echocardiography as well. [...] 10 point review of systems is negative. [facility] - Medical History Medical History: Medical History [...] PO Q6H PRN 07/03/21 [History Confirmed 07/31/21] cwxhqux-kxpnlwimxzafu-zkppiebh 250 mg-250 mg-65 mg tablet (Excedrin Migraine) [...] 07/16/21 12:50 Outside Labs: Outside labs from [facility] [facility] scanned in chart; no significant cytopenias or abnormalities (WBC- 8.0; Hgb 12.0; normal platelets; Normal electrolytes; renal/hepatic fxn) Assessment and Plan (1) Breast cancer Patient is a 46-year-old female presenting with 3 discernible masses by mammography (04/22/2021) with needle biopsy confirming triple negative breast cancer. She was initially see in consultation by Dr. Smith at [facility] in [place], [place]; however, due to insurance reasons the patient transferredcare to [facility] [place] [facility]. She commenced neoadjuvant Carboplatin/Paclitaxel/Pembrolizumab therapy on 07/22/2021; [...] scans ofthe chest/abdomen/pelvis on 07/16/2021 here at [facility]. There was no obvious evidence of distant [...] [facility] She has ongoing issues with low back [...] for coordination of care (as documented) and gvic-it-ksbd counseling of patient and/or family. Dictated By: Jazmin Monsivais APRN DD/ 1454 Signed By: <Electronically signed by PETE Monsivais> 07/31/21 1554 [facility] Work Phone: 1(248) 635-323001-13-2022 Hospital Discharge instructionsAmbulatory Orders* Imaging on Disk Time Frame: 1 Day, Location: Determined By Patient * RISE Order Time Frame: 07/31/21, Location: Determined By Patient [facility] Work Phone: 1(603) 258-328312-28-2021 Progress note Author Salbador Phoenix [facility] July 15, 2021 1:32pm Note Date/Time July 15, 2021 1:28pm [facility] at [place] [id number] Hem/Onc Follow Up Note - OP Signed Patient: Tenisha Hancock MR#: [id number] : 1975 Acct:[id number] Age/Sex: 46 / F Type: REG RCR [...] is a 46-year-old female who works at [employer] who was referred here with triple negative [...] showed triple negative breast cancer, ER negative, KS negative, and H ER 2 -. The patient was referred to Dr. Ismael Red for Jtvivt-c-Lnwx which she has had placed. She has seen my colleague Dr. Smith at the [facility] who recommended neoadjuvant chemotherapy and immunotherapy. Because of insurance reasons, she will be getting her treatment here at [facility]. She has had echocardiography as well. [...] PO Q6H PRN 07/03/21 [History Confirmed 07/15/21] lzfckyf-ertxjethazyvn-nknsfsod 250 mg-250 mg-65 mg tablet (Excedrin Migraine) [...] % (Auto) 68.7, Lymph % (Auto) 25.5, [place] % (Auto) 3.9, Eos % (Auto) 1.0, Baso % (Auto) 0.9, Neut # (Auto) 6.9, Lymph # (Auto) 2.6, [place] # (Auto) 0.4, Eos# (Auto) 0.1, Baso [...] July 29, 2021. The patient has her Fnqcqf-t-Wecu and and has had echocardiography. We will [...] for coordination of care (as documented) and lrpc-su-wjwa counseling of patient and/or family. Dictated By: Salbador Phoenix MD DD/ 1327 Signed By: <Electronically signed by MD Salbador Phoenix> 07/15/21 1332 [facility] Work Phone: 1([phone]) 190-158712-21-2021 Consult note Author Salbador Phoenix [facility] July 08, 2021 3:14pm Note Date/Time July 08, 2021 2:58pm [facility] [place] [id number] Hem/Onc Consult Note - OP Signed Patient: Tenisha Hancock MR#: [id number] : 1975 Acct:[id number] Age/Sex: 46 / F Type: REG RCR [...] is a 46-year-old female who works at [employer] who is referred here with triple negative [...] showed triple negative breast cancer, ER negative, KS negative, and H ER 2 -. The patient was referred to Dr. Ismael Red for Qhzcfu-h-Puxi which she has had placed. She has seen my colleague Dr. Smith at the [facility] who recommended neoadjuvant chemotherapy and immunotherapy. Because of insurance reasons, she will be getting her treatment here at [facility]. She has had echocardiography as well. She does have a palpable breast mass. It is in the lower mid quadrant of the right breast. [facility] - Medical History Medical History: Medical History [...] PO Q6H PRN 07/03/21 [History Confirmed 07/08/21] ihsdsfi-uvalxsvhmrejx-ioideath 250 mg-250 mg-65 mg tablet (Excedrin Migraine) [...] cancer. She has seen medical oncology at [facility] who has recommended neoadjuvant chemotherapy and [...] at this time. The patient has her Iaxdus-i-Qdbb and and has had echocardiography. We will refer her for chemotherapy education and literature. She was requesting PET scan which is reasonable. I will also recommend genetic testing which can be done through [facility]. Our treatment plan will be pembrolizumab every [...] for coordination of care (as documented) and ncjk-vw-cfhk counseling of patient and/or family. Dictated By: Salbador Phoenix MD DD/ 1457 Signed By: <Electronically signed by MD Salbador Phoenix> 07/08/21 2689 [facility] Work Phone: Consult note Author [facility] March 19, 2022 10:56am Note Date/Time March 18, 2022 3: 31pm [facility] [place] [address] Rad Onc Consult Note - OP Signed Patient: Tenisha Hancock MR#: [id number] : 1975 Acct:[id number] Age/Sex: 46 / F Type: REG RCR [...] 0 out of 5 lymph nodes involved. [id number]. In review of her operative note as [...] ductal carcinoma, 9 mm, provisional grade 3, ER/KS negative and HER2 negative. Per the available notes her BRCA testing was done through [facility] and was negative. Also appears the right breast mass was palpable in the lower mid quadrant of the breast. [facility]. Due to insurance reasons she received her systemic therapy here at [facility]. PET/CT was denied by insurance. CT scan of the chest abdomen pelvis on July 16, 2021 was negative for metastatic disease. Her clinical stage at presentation was cT2N0. June 11, 2021 patient did undergo an MRI in [place]. I do not have that report available [...] 0 out of 5 lymph nodes negative. [id number]. Pathology was negative for LVSI. Of note [...] work. Has no other breast related complaints. [facility] - Medical History Medical History: Medical History [...] Allergies Allergy (Verified 03/12/22 08:56) Home Medications disqtud-zziikmroqbjtk-zzbdoknx 250 mg-250 mg-65 mg tablet (Excedrin Migraine) [...] Stacie Thomas MD> 03/19/22 1056 [facility] [employer] Work Phone: Evaluation note* Diagnosis History of breast cancer- Primary Personal history of malignant neoplasm of breast Breast asymmetry following reconstructive surgery Disproportion of reconstructed breast Malignant neoplasm of right female breast, unspecified estrogen receptor status, unspecified site of breast (HCC)- Primary [facility] Diagnosis Malignant neoplasm of right female breast, unspecified estrogen receptor status, unspecified site of breast (HCC) documented in this encounter [email or web address] Phone: [email or web address] note* Diagnosis Status post breast reconstruction- Primary Breast replaced by other means Status post breast lumpectomy Other postprocedural status Abnormal mammogram Abnormal mammogram, unspecified Malignant neoplasm of right female breast, unspecified estrogen receptor status, unspecified site of breast (HCC) documented in this encounter [email or web address] Phone: evalnnpayl note* Diagnosis Malignant neoplasm of right female breast, unspecified estrogen receptor status, unspecified site of breast (HCC) documented in this encounter [email or web address] Phone: evaluation note* Diagnosis Onset Date Resolution Status Breast cancer chronic Encounter for antineoplastic immunotherapy chronic Encounter for chemotherapy management chronic 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 Chemotherapy-induced neutropenia resolved [facility] [employer] Work Phone: Evaluation note* Diagnosis Onset Date Resolution Status 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 acute Arthralgia of multiple sites, bilateral acute Encounter for coordination of complex care acute Breast cancer chronic Encounter for antineoplastic immunotherapy chronic Encounter for chemotherapy management chronic 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 Chemotherapy-induced neutropenia resolved [facility] [employer] Work Phone: Evaluation note* Diagnosis Onset Date Resolution Status 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 chronic Arthralgia of multiple sites, bilateral chronic Breast cancer chronic Encounter for antineoplastic immunotherapy chronic Encounter for chemotherapy management chronic Encounter for coordination of complex care chronic 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 Chemotherapy-induced neutropenia resolved [facility] Work Phone: Evaluation note* Diagnosis Onset Date Resolution Status 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 chronic Breast cancer chronic Encounter for antineoplastic immunotherapy chronic Encounter for chemotherapy management chronic Encounter for coordination of complex care chronic 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 Arthralgia of multiple sites, bilateral resolved Chemotherapy-induced neutropenia resolved [facility] Work Phone: Evaluation note* Diagnosis [...] bilateral resolved Chemotherapy-induced neutropenia resolved [facility] Work Phone: Evaluation noteNo assessment information available [facility] Work Phone: Hisaibi general Narrative - Reported* Type Description Date Medical History GERD (gastroesophageal reflux di sease) Medical History Depression Medical History Breast Cancer Surgical History gallbladder Surgical History Foot Surgery Hospitalization History gallbladder [facility] [employer] Other [facility] Work Phone: [facility] instructions[facility] Work Phone: [facility] Work Phone: Hospital Discharge instructionsAmbulatory Orders* RISE Order Time Frame: 1 Day, Location: Determined By Patient [facility] Work Phone: Progress note Author Kallie Chang [facility] March 12, 2022 4:36pm Note Date/Time March 12, 2022 9: 49am [facility] at [address] [address] Hem/Onc Follow Up Note - OP Signed Patient: Tenisha Hancock MR#: [id number] : 1975 Acct:[id number] Age/Sex: 46 / F Type: REG RCR [...] right mastopexy on 02/17/2022 [address] Drs. Saunders/Drew ([facility]). Her pathology returned with no evidence [...] Simons and has an appointment scheduled at [facility] to discuss josep flap surgery as [...] overall good. BRCA testing was done through [facility] and is negative. She does have left [...] I willdefer to his impression and recommendations. POARCH: This is a 46 year old female, recently diagnosed with triple negative right breast cancer; currently undergoing neoadjuvant pembrolizumab, carboplatin AUC 4 and weekly paclitaxel x6 cycles, which commenced: 07/22/2021. This is a 46-year-old female who works at [employer] with triple negative breast cancer, referred for neoadjuvant chemotherapy. Mammogramon on April 22, 2021 showed 3 new focal masses with the largest measuring 2 cm in size in the right breast. 2 additional lesions measuring 1 cm and a second 0.9 cm were also seen. The patient was referred for biopsy. Needle biopsy showed triple negative breast cancer, ER negative, KS negative, and H ER 2 -. The patient was referred to Dr. Ismael Red for Zypjua-f-Jetn which she has had placed. She has seen my colleague Dr. Smith at the [facility] recommended neoadjuvant chemotherapy and immunotherapy. Because of insurance reasons, she will be getting her treatment here at [facility]. She has had echocardiography as well. According the patient an MRI was obtained prior to neoadjuvant therapy while she was at [facility] we are requesting this prior study. She [...] showed triple negative breast cancer, ER negative, KS negative, and HER 2 -. The patient was referred to Dr. Ismael Red for Sfcnmy-a-Iahy which she has had placed. She has seen my colleague Dr. Smith at the [facility] recommended neoadjuvant chemotherapy and immunotherapy. Because of insurance reasons, she will be getting her treatment here at [facility]. She has had echocardiography as well. [...] 9 cycles --Original breast MRI obtained from [facility] from May 2021, follow-up breast MRI performed [...] preoperatively in late December. 2. 02/17/2022 at [facility], Drs. Saunders/Djohan: needle localized lumpectomy with [...] Allergies Allergy (Verified 03/12/22 08:56) Home Medications kkjyyzr-guepyhoeyifdu-icikosos 250 mg-250 mg-65 mg tablet (Excedrin Migraine) [...] see in consultation by Dr. Smith at [facility] in [place], [place]; however, due to insurance reasons the patient transferredcare to [facility]. In reviewing notes from her prior physician [...] do not have records from this from [facility] in [place]. I am requesting this to evaluate her [...] testing returned negative from prior physicians at [facility]. BRCA testing negative Follow-up September is [...] We will review her prior MRI from [facility] in May 2021 in comparison to most [...] other significant toxicities. MRI was reviewed and [facility] tumor board with Dr. Reza and [...] small focus of residual DCIS, ER 5%, KS 0%. Referring for adjuvant radiation then we [...] for coordination of care (as documented) and qaia-ya-upoc counseling of patient and/or family. Dictated By: Kallie Chang MD DD/ 0948 Signed By: <Electronically signed by MD Kallie Chang> 03/12/22 1636 [facility] Work Phone: Progress note Author Kallie Chang [facility] September 18, 2022 10:28pm Note Date/Time September 18, 2022 1:44 pm [place] [address] Hem/Onc Follow Up Note - OP Signed Patient: Tenisha Hancock MR#: [id number] : 1975 Acct:[id number] Age/Sex: 47 / F Type: REG RCR [...] hydrocortisone 20mg am/10mg pm. Will f/u with [employer] next week to review symptoms. We may [...] right mastopexy on 02/17/[address] Saunders/Drew ([facility]). Her pathology returned with no evidence [...] Simons and has an appointment scheduled at [facility] to discuss josep flap surgery as [...] overall good. BRCA testing was done through [facility] and is negative. She does have left [...] I willdefer to his impression and recommendations. POARCH: This is a now 47 year old female, recently diagnosed with triple negative right breast cancer; currently undergoing neoadjuvant pembrolizumab, carboplatin AUC 4and weekly paclitaxel x6 cycles, which commenced: 07/22/2021. This is a 46-year-old female who works at [employer] with triple negative breast cancer, referred for neoadjuvant chemotherapy. Mammogramon on April 22, 2021 showed 3 new focal masses with the largest measuring 2 cm in size in the right breast. 2 additional lesions measuring 1 cm and a second 0.9 cm were also seen. The patient was referred for biopsy. Needle biopsy showed triple negative breast cancer, ER negative, KS negative, and H ER 2 -. The patient was referred to Dr. Ismael Red for Jtwvln-b-Dwmm which she has had placed. [facility]. Because of insurance reasons, she will be getting her treatment here at [facility]. She has had echocardiography as well. According the patient an MRI was obtained prior to neoadjuvant therapy while she was at [facility] we are requesting this prior study. She [...] showed triple negative breast cancer, ER negative, KS negative, and HER 2 -. The patient was referred to Dr. Ismael Red for Fmyddu-b-Ottx which she has had placed. She has [facility] my [facility]. Because of insurance reasons, she will be getting her treatment here at [facility]. She has had echocardiography as well. [...] 9 cycles --Original breast MRI obtained from [facility] from May 2021, follow-up breast MRI performed [...] preoperatively in late December. 2. 02/17/2022 at [facility], Drs. Saunders/Shantal: needle localized lumpectomy with [...] Negative for environmental allergies and food allergies. [facility] - History Attestation statement: The following information [...] Allergies Allergy (Verified 09/18/22 13:38) Home Medications tghckuw-suljqyzmcdbis-bwzwqcci 250 mg-250 mg-65 mg tablet (Excedrin Migraine) [...] % (Auto) 91.1, Lymph % (Auto) 6.2, [place] % (Auto) 2.3, Eos % (Auto) 0.1, Baso % (Auto) 0.3, Nucleat RBC Rel Count 0.1, Neut # (Auto) 10.4 H, Lymph # (Auto) 0.7 L, [place] # (Auto) 0.3, Eos # (Auto) 0.0, [...] see in consultation by Dr. Smith at [facility] in [place], [place]; however, due to insurance reasons the patient transferredcare to [facility]. In reviewing notes from her prior physician [...] do not have records from this from [facility] in [place]. I am requesting this to evaluate her [...] testing returned negative from prior physicians at [facility] clinic. BRCA testing negative Follow-up September is [...] We will review her prior MRI from [facility] in May 2021 in comparison to most [...] other significant toxicities. MRI was reviewed and [facility] tumor board with Dr. Reza and [...] small focus of residual DCIS, ER 5%, KS 0%. Completed adjuvant radiation then we resumed [...] with sentinel lymph node biopsy 02/17/2022 in [place]. Adjuvant radiation completed 05/04-06/16/2022. Total of 30 [...] for coordination of care (as documented) and royu-ke-lzip counseling of patient and/or family. Dictated By: Kallie Chang MD DD/ 1343 Signed By: <Electronically signed by MD Kallie Chang> 09/18/22 2222 [facility] Work Phone: Reason for visit NarrativeReferral Dr. [place] T12 [facility] Other Summary Purpose Family History No Family [...] WO CONTRAST Diana Murguia P, DO [address] [facility] [address] [place] [address] Referral ID Status Reason Start Date Expiration Date Visits Re quested Visits Authorized [id number] Closed 02/03/2022 01/28/2023 1 1 Chief Complaint [...] or prosecute any alcohol or drug abuse patient.[facility] Clinic[facility] the event this information is protected by the Federal Confidentiality of Alcohol and Drug Abuse Patient Records regulations: The Federal rules restrict any use of the information to criminally investigate or prosecute any alcohol or drug abuse patient.[facility] Center[facility] the event this information is protected by the Federal Confidentiality of Alcohol and Drug Abuse Patient Records regulations: The Federal rules restrict any use of the information to criminally investigate or prosecute any alcohol or drug abuse patient.[facility] CenterIn the event this information is protected by the Federal Confidentiality of Alcohol and Drug Abuse Patient Records regulations: The Federal rules restrict any use of the information to criminally investigate or prosecute any alcohol or drug abuse patient.[facility] Reason for Visit (unrecogniz ed section and content) Reason Comments Appointment Reason Comments Consult Specialty Diagnoses / Procedures Referred By Contac t Referred To Contact Radiology Diagnoses Malignant neoplasm of right female breast, unspecified estrogen receptor status, unspecified site of breast (HCC) Procedures MRI BREAST BILATERAL W WO CONTRAST Diana Murguia, DO [address] [id number] Referral ID Status Reason Start Date Expiration Date Visits Re quested Visits Authorized [id number] Closed 02/03/2022 01/28/2023 1 1 Specialty Diagnoses / Procedures Referred By Daryaac t Referred To Contact Diagnoses Malignant neoplasm of right female breast, unspecified estrogen receptor status, unspecified site of breast (HCC) Malignant neoplasm of right female breast, unspecified estrogen receptor status, unspecified site of breast (HCC) [C50.911] Procedures KS MASTECTOMY, PARTIAL KS OFFICE/OUTPT VISIT,PROCEDURE ONLY KS BREAST REDUCTION NEEDLE DIRECTED @ 800 RIGHT BREAST LUMPECTOMY WITH SENTINEL NODE BIOPSY @ 830 WITH FROZEN SECTION AND POSSIBLE AXILLARY LYMPH NODE DISSECTION ONCOPLASTIC RECONSTRUCTION RIGHT BREAST WITH JOSE R INCISIONAL VAC AND PEC BLOCK Diana Murguia, DO [address] [facility] [address] [place] [address] [facility] [address] [place] [address] Referral ID Status Reason Start Date Expiration Date Visits Re quested Visits Authorized [id number] 1 1 Specialty Diagnoses / Procedures Referred By Ramirez t Referred To Contact Diagnoses Malignant neoplasm of unspecified site of right female breast Procedures HC NM LYMPHATICS,LYMPH GLAND IMAGING [facility] Nuclear Medicine [address] [place] [address] [facility] [address] [address] [place] [address] Referral ID Status Reason Start Date Expiration Date Visits Re quested Visits Authorized [id number] 1 1 Care Teams (unrecognized sec tion [...] Active Kallie Chang MD Attending Provider Active Controller Mechanic Relationship Specialty Start Date End Date Jasbir Limon MD [facility] [place] [address] PCP - General 10/28/00 Controller Mechanic Relationship Specialty Start Date End Date Jasbir Limon MD [address] [place] [address] (Fax) PCP - General 10/28/00 Controller Mechanic Relationship Specialty Start Date End Date Jasbir Limon MD [address] [place] [address] (Fax) PCP - General 10/28/00 Controller Mechanic Relationship Specialty Start Date End Date Eliel Hurd [address] [place] [address] PCP - General Specialist 02/04/22 Controller Mechanic Relationship Specialty Start Date End Date Eliel Hurd [address] [place] [address] PCP - General Specialist 02/04/22 Controller Mechanic Relationship Specialty Start Date End Date Eliel Hurd [address] [place] [address] PCP - General Specialist 02/04/22 Team Status: [...] section and content) DATE CREATED AUTHOR 02/03/2022 [facility] DATE CREATED AUTHOR AUTHOR'S ORGANIZ ATION 02/21/2022 [facility] DATE CREATED AUTHOR AUTHOR'S ORGANIZ ATION 03/24/2022 [facility] DATE CREATED AUTHOR AUTHOR'S ORGANIZ ATION 12/02/2022 [facility] DATE CREATED AUTHOR AUTHOR'S ORGANIZ ATION 03/09/2023 [facility] DATE CREATED AUTHOR AUTHOR'S ORGANIZ ATION 04/20/2023 [facility] DATE CREATED AUTHOR AUTHOR'S ORGANIZ ATION 06/22/2023 Last [facility] Ordered Prescriptions (unrec ognized section and content) [...] 1047 (Given - Provid er: Valerie Davila BUSINESS TAXES SPECIALIST - TECHNICAL APPLICATIONS SPECIALIST) diphenhydrAMINE (BENADRYL) injection 12.5 mg (COMPLETED) 12.5 [...] (NoRateChange - Provider: Valerie Davila APRN - ELZBIETA)1148 (Paused - Provider: PETE Pereira CRNA - Comment: Switch to gravity)1149 (New Bag - Provider: PETE Pereira CRNA)1318 (Anesthesia Volume Adjustment - Provider: PETE Pereira CRNA)1615 (Stopped - Provider: Ashlie Baron RN) PRN [...] BE BASED ON THE PRIMARY CLINICAL RECORDS. [facility]. provides no warranty or guarantee of the accuracy or completeness of information in this document.
== END 2023-08-27 10:31 | disposition home or self-care (01) ==
LOC: RAD 10:32
PROVIDERS: PCP Internal Medicine; Visit Provider Internal Medicine
DX: M25.532 Pain in left wrist (principal); M79.645 Pain in left finger(s)
CPT/HCPCS: 73110; 73130

== ENCOUNTER 2023-10-21 14:42 | Outpatient (OUT) | payer BC, SELFPAY ==
--- NOTE | 2023-10-21 14:49 | MR_ITS ---
The [address] [address] Patient Name: ALLYSON HANCOCK MRN: [id number] date: 1975 Sex: F Assigned Patient Location: MRI Current Patient Location: MRI Accession/Order Number: [id number] Exam Date: 10/21/2023 15:40 Report Date: 10/22/2023 12:49 At the request of: CASTILLO GONSALEZ Procedure: MR wrist LT wo con HISTORY: Pain in the left wrist after moving heavy objects approximately 3 months ago. MR wrist LT wo con: 10/21/2023 3:40 PM EDT COMPARISON: Radiographs left wrist 08/27/2023. TECHNIQUE: Multiplanar, multisequence MRI images of the wrist were obtained. FINDINGS: LIGAMENTS AND TFCC: The scapholunate ligament complex and lunotriquetral ligament appear intact. The triangular fibrocartilage complex appears grossly intact. BONES AND JOINTS: The bone marrow signal intensity appears age appropriate. There are at least mild degenerative changes of the first carpometacarpal joint. No bone marrow edema-like signal is seen. TENDONS: There is severe tendinopathy and a superimposed short segment longitudinal split tear of the abductor pollicis longus tendon spanning approximately 1.5 cm in length at the level of the carpal bones. There is an adjacent moderate tenosynovitis and there is also a moderate amount of edema-like stranding of the subcutaneous fat in this region. There is ulnar subluxation of the extensor carpi ulnaris tendon from the dorsal groove of the ulna and there appears to be mild focal tendinopathy of the tendon in this region. The other tendons of the wrist appear within normal limits. CARPAL TUNNEL: There appear to be probable postsurgical changes from prior carpal tunnel surgery. No space-occupying mass is seen in the carpal tunnel. MUSCLES AND SOFT TISSUES: The visualized musculature appears grossly within normal limits in signal intensity. MR/MR wrist LT wo con IMPRESSION: 1. Severe tendinopathy and superimposed short segment longitudinal split tear of the abductor pollicis longus tendon spanning 1.5 cm in length at the level of the carpal bones. This is associated with a moderate tenosynovitis and moderate peritendinitis in this region. 2. Ulnar subluxation of the extensor carpi ulnaris tendon from the dorsal groove of the ulna with mild focal tendinopathy of the tendon in this region. 3. No ligament injury or tear of the TFCC. 4. 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 Electronically authenticated by: KENN THOMAS Date: 10/22/2023 12:49
== END 2023-10-21 14:43 | disposition home or self-care (01) ==
LOC: MRI 14:42
PROVIDERS: PCP Internal Medicine; Visit Provider Personal Emergency Response Attendant
DX: S63.502A Unspecified sprain of left wrist, initial encounter (principal); S66.812A Strain of other specified muscles, fascia and tendons at wrist and hand level, left hand, initial encounter
CPT/HCPCS: 73221

== ENCOUNTER 2023-10-26 07:35 | Outpatient (RCR) | payer BC, SELFPAY | END 2023-11-16 23:59 | disposition home or self-care (01) | LOC: INF 07:35 | PROVIDERS: PCP Internal Medicine; Visit Provider Internal Medicine Hematology & Oncology | DX: C50.911 Malignant neoplasm of unspecified site of right female breast (principal) | CPT/HCPCS: G0463 ==

== ENCOUNTER 2023-10-29 08:46 | Outpatient (OUT) | payer BC, SELFPAY ==
[2023-10-29 09:19] LABS: Basophils Percent Auto 0.6 % (0.2-2.0); Eosinophils Absolute Auto 0.2 10^3/uL (0.0-0.7); Hemoglobin 12.2 g/dL (12.0-16.0); Immature Granulocytes Abs Auto 0.02 10^3/uL (0.00-0.03); Immature Granulocytes Pct Auto 0.4 % (0.0-0.5); Lymphocytes Absolute Auto 1.9 10^3/uL (1.2-3.8); Lymphocytes Percent Auto 40.8 % (20.5-60.0); Mean Corpuscular HGB Conc 32.1 g/dL (29.9-35.2); Mean Corpuscular Hemoglobin 29.9 pg (26.7-34.0); Mean Corpuscular Volume 93.1 fL (81.0-99.0); Mean Platelet Volume 9.1 fL (9.5-13.5); Monocytes Absolute Auto 0.3 10^3/uL (0.3-0.8); Monocytes Percent Auto 6.1 % (1.7-12.0); Neutrophils Absolute Auto 2.3 10^3/uL (1.4-6.5); Neutrophils Percent Auto 48.1 % (43.0-75.0); Platelet Count 249 10^3/uL (150-450); Red Blood Count 4.08 10^6/uL (4.20-5.40); Red Cell Distribution Width 12.4 % (11.0-15.0); White Blood Count 4.8 10^3/uL (4.0-11.0)
[2023-10-29 09:36] LABS: Alanine Aminotransferase 37 U/L (14-59); Albumin Globulin Ratio 0.9; Albumin Level 3.3 g/dL (3.4-5.0); Alkaline Phosphatase 102 U/L (46-116); Aspartate Amino Transferase 24 U/L (15-37); BUN Creatinine Ratio 25.9; Bilirubin Total 0.4 mg/dL (0.2-1.0); Calcium 9.2 mg/dL (8.5-10.1); Carbon Dioxide 25.1 mmol/L (21.0-32.0); Chloride 106 mmol/L (98-107); Estimated GFR (African America >60 (>=60); Estimated GFR (Non-African Ame >60 (>=60); Globulin 3.6 g/dL; Glucose 129 mg/dL (74-106); Potassium 4.1 mmol/L (3.5-5.1); Sodium 142 mmol/L (136-145); Thyroid Stimulating Hormone 2.988 uIU/mL (0.358-3.740); Total Protein 6.9 g/dL (6.4-8.2)
[2023-10-29 10:14] LABS: Free T4 0.88 ng/dL (0.76-1.46)
[2023-10-31 15:13] LABS: Cortisol - AM 0.2 ug/dL (6.2-19.4)
== END 2023-10-29 08:47 | disposition home or self-care (01) ==
LOC: LAB 08:49
PROVIDERS: PCP Internal Medicine; Visit Provider Internal Medicine Hematology & Oncology
DX: C50.911 Malignant neoplasm of unspecified site of right female breast (principal); M25.50 Pain in unspecified joint; M13.0 Polyarthritis, unspecified
CPT/HCPCS: 36415; 80053; 82306; 82533; 84439; 84443; 85025

== ENCOUNTER 2023-11-04 11:05 | Outpatient (OUT) | payer BC, SELFPAY ==
--- NOTE | 2023-11-04 | US_ITS ---
Patient Name: ALLYSON HANCOCK MR#: [id number] : 1975 Exam Date: 11/04/2023 Ordering Doctor: DR Chidi Rincon . RADIOLOGY REPORT PROCEDURE: MM TOMOSYNTHESIS DIAGNOSTIC BI, 11/04/2023, 10:22 US BREAST RT LIMITED, 11/04/2023, 11:54 COMPARISON: MM TOMOSYNTHESIS DIAGNOSTIC BI, 02/09/2023. MAMMO POST BIOPSY RIGHT, 05/26/2021. MG MAMM RT DIAG FU, 05/13/2021. 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 LOCATION: [facility] BREAST COMPOSITION: The breasts are heterogeneously dense,which may obscure small masses. FINDINGS: DIAGNOSTIC CATEGORY 3--PROBABLY BENIGN FINDING. THE FOLLOWING FINDING(S) HAS A HIGH PROBABILITY OF A BENIGN ETIOLOGY: RIGHT BREAST: Spiculated opacity within posterior outer quadrant adjacent the chest wall on the CC view which was not seen on prior study but is suspected to be visible on today's study due to more of the posterior tissue able to be pulled into view. Opacity within this area on the MLO view is similar to prior study. Ultrasound evaluation demonstrates a slightly heterogeneous and questionable mass like structure within this region, but patient has undergone surgery in this area for prior mass removal. The above findings may represent postsurgical scarring, however, given the patient's history further evaluation is needed. Follow-up mammography and right breast ultrasound in 3-4 months is recommended to document stability. Any increase should prompt biopsy. Alternatively, MRI of the right breast could be performed at this time to evaluate enhancement characteristics. LEFT BREAST: No significant suspicious finding. No significant change has occurred. RECOMMENDATIONS: SHORT TERM FOLLOW-UP DIAGNOSTIC MAMMOGRAM RIGHT IN 3 MONTHS. SHORT TERM FOLLOW-UP ULTRASOUND RIGHT BREAST IN 3 MONTHS. PLEASE NOTE: A NORMAL MAMMOGRAM DOES NOT EXCLUDE THE POSSIBILITY OF BREAST CANCER. A CLINICALLY SUSPICIOUS PALPABLE LUMP SHOULD BE BIOPSIED. Dictated by: Magdiel Leiva M.D. on 11/04/2023 at 12:09 Approved by: Magdiel Leiva M.D. on 11/04/2023 at 12:57
--- NOTE | 2023-11-04 11:13 | MM_ITS ---
Patient Name: ALLYSON HANCOCK MR#: [id number] : 1975 Exam Date: 11/04/2023 Ordering Doctor: DR Chidi Rincon . RADIOLOGY REPORT PROCEDURE: MM TOMOSYNTHESIS DIAGNOSTIC BI, 11/04/2023, 10:22 US BREAST RT LIMITED, 11/04/2023, 11:54 COMPARISON: MM TOMOSYNTHESIS DIAGNOSTIC BI, 02/09/2023. MAMMO POST BIOPSY RIGHT, 05/26/2021. MG MAMM RT DIAG FU, 05/13/2021. 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 LOCATION: [facility] BREAST COMPOSITION: The breasts are heterogeneously dense,which may obscure small masses. FINDINGS: DIAGNOSTIC CATEGORY 3--PROBABLY BENIGN FINDING. THE FOLLOWING FINDING(S) HAS A HIGH PROBABILITY OF A BENIGN ETIOLOGY: RIGHT BREAST: Spiculated opacity within posterior outer quadrant adjacent the chest wall on the CC view which was not seen on prior study but is suspected to be visible on today's study due to more of the posterior tissue able to be pulled into view. Opacity within this area on the MLO view is similar to prior study. Ultrasound evaluation demonstrates a slightly heterogeneous and questionable mass like structure within this region, but patient has undergone surgery in this area for prior mass removal. The above findings may represent postsurgical scarring, however, given the patient's history further evaluation is needed. Follow-up mammography and right breast ultrasound in 3-4 months is recommended to document stability. Any increase should prompt biopsy. Alternatively, MRI of the right breast could be performed at this time to evaluate enhancement characteristics. LEFT BREAST: No significant suspicious finding. No significant change has occurred. RECOMMENDATIONS: SHORT TERM FOLLOW-UP DIAGNOSTIC MAMMOGRAM RIGHT IN 3 MONTHS. SHORT TERM FOLLOW-UP ULTRASOUND RIGHT BREAST IN 3 MONTHS. PLEASE NOTE: A NORMAL MAMMOGRAM DOES NOT EXCLUDE THE POSSIBILITY OF BREAST CANCER. A CLINICALLY SUSPICIOUS PALPABLE LUMP SHOULD BE BIOPSIED. Dictated by: Magdiel Leiva M.D. on 11/04/2023 at 12:09 Approved by: Magdiel Leiva M.D. on 11/04/2023 at 12:57
== END 2023-11-04 11:06 | disposition home or self-care (01) ==
LOC: MAMMO 11:05
PROVIDERS: PCP Internal Medicine; Visit Provider Obstetrics & Gynecology
DX: C50.511 Malignant neoplasm of lower-outer quadrant of right female breast (principal); Z80.9 Family history of malignant neoplasm, unspecified; Z87.898 Personal history of other specified conditions; Z85.3 Personal history of malignant neoplasm of breast; R92.8 Other abnormal and inconclusive findings on diagnostic imaging of breast
CPT/HCPCS: 76642; 77066; G0279

== ENCOUNTER 2023-12-14 14:30 | Outpatient (OUT) | payer BC, SELFPAY | END 2023-12-14 14:31 | disposition home or self-care (01) | LOC: PST 14:30 | PROVIDERS: PCP Internal Medicine; Visit Provider Surgery | DX: Z01.818 Encounter for other preprocedural examination (principal); R10.13 Epigastric pain; K21.9 Gastro-esophageal reflux disease without esophagitis; Z12.11 Encounter for screening for malignant neoplasm of colon ==

== ENCOUNTER 2023-12-22 09:14 | Day surgery (SDC) | payer BC, SELFPAY ==
--- NOTE | 2023-12-22 | OP_ITS ---
OPERATION DATE: 12/22/2023 PREOPERATIVE DIAGNOSIS: Colorectal screening as well as epigastric pain and GERD. POSTOPERATIVE DIAGNOSIS: Normal EGD and colonoscopy. PROCEDURE: EGD and colonoscopy to cecum. SURGEON: Ismael Carrero M.D. ANESTHESIA: Monitored anesthesia care. ESTIMATED BLOOD LOSS: Zero. INDICATIONS AND CONSENT: Patient is a 48-year-old female with history of intermittent epigastric abdominal pain and refractory GERD symptoms, as well as need for colorectal screening. Indications, risks, benefits, alternatives of proceeding with EGD and colonoscopy were explained extensively to the patient, including the risks of bleeding, aspiration, esophagogastric/gastric/duodenal or colonic perforation or anesthetic complications. All of her questions were answered. Informed consent was obtained. PROCEDURE: Patient brought to the operating room, placed in the left lateral decubitus position. Monitored anesthesia care was provided. Bite block was placed in the patient?s mouth. Scope was inserted into the oropharynx. Under direct visualization, it was advanced into the esophagus, past the cricopharyngeus, down to the stomach. The stomach was insufflated with air. The pylorus was traversed down to the descending portion of the duodenum. There was no evidence of duodenitis or ulceration. There was no scarring within the pyloric channel. Scope was pulled back into the stomach and retroflexed. There was no significant hiatal hernia. The GE junction was noted at approximately 34 cm. There was no distal esophagitis or Jose?s changes. The remainder of the esophagus was unremarkable. The scope was then withdrawn. Patient was then positioned for colonoscopy. Rectal exam was performed, which showed no masses or blood. The scope was then inserted into the anal canal. Under direct visualization, it was advanced to the cecum where cecal markings were clearly identified. There was noted to be a good prep. Upon withdrawal of the scope, mucosal surfaces were carefully examined. There were no mass lesions or polyps. No inflammatory changes or ulcerations. No significant diverticulosis. The scope was retroflexed in the anal canal. There was no significant hemorrhoidal disease. The scope was then withdrawn. The patient tolerated procedure well, was sent to recovery room in good condition.f/u screening colonoscopy in 10 years CC: Dr. Patria VIVAS
[2023-12-22 09:40] VITALS: BMI 29.6
[2023-12-22 09:41] LABS: HCG Qualitative NEGATIVE (NEGATIVE)
[2023-12-22] MEDS: LACTATED RINGER'S SOLUTION 1,000 ML 50 ML IV (09:50)
[2023-12-22 12:49] VITALS: BP 84/42; PULSE 70; O2SAT 98
[2023-12-22 13:19] VITALS: BP 124/81; PULSE 67; O2SAT 100
== END 2023-12-22 13:19 | disposition home or self-care (01) ==
PROVIDERS: PCP Internal Medicine; Visit Provider Surgery
PROC: (CPT 813; principal; 2023-12-22 10:40)
DX: Z12.11 Encounter for screening for malignant neoplasm of colon (principal); R10.13 Epigastric pain; K21.9 Gastro-esophageal reflux disease without esophagitis; C50.919 Malignant neoplasm of unspecified site of unspecified female breast; Z17.1 Estrogen receptor negative status [ER-]; E78.5 Hyperlipidemia, unspecified; E03.9 Hypothyroidism, unspecified; E27.40 Unspecified adrenocortical insufficiency; M54.16 Radiculopathy, lumbar region; Z90.49 Acquired absence of other specified parts of digestive tract; Z98.51 Tubal ligation status; D17.1 Benign lipomatous neoplasm of skin and subcutaneous tissue of trunk
CPT/HCPCS: 43235; 45378; 36415; 84703; J2704

== ENCOUNTER 2023-12-30 14:36 | Outpatient (OUT) | payer BC, SELFPAY ==
--- NOTE | 2023-12-30 15:45 | XR_ITS ---
The [address] [address] Patient Name: ALLYSON HANCOCK MRN: [id number] date: 1975 Sex: F Assigned Patient Location: [facility] Current Patient Location: [facility] Accession/Order Number: [id number] Exam Date: 12/30/2023 15:30 Report Date: 12/31/2023 09:12 At the request of: NON-STAFF PHYSICIAN Procedure: XR lumbar spine 2-3V EXAMINATION: XR lumbar spine 2-3V HISTORY: lumbar pain COMPARISON: No relevant comparison available. FINDINGS: BONES: Rotatory dextrocurvature centered at L3 no acute fracture or spondylolisthesis. Mild to moderate degenerative spondylosis and facet osteoarthropathy DISC SPACES: Multilevel disc space narrowing most significant at L2-L5 PARASPINOUS: Negative. No paraspinous abnormality is seen. OTHER: Negative. XR/XR lumbar spine 2-3V IMPRESSION: Dgdo-zz-tetfkbwk degenerative changes with rotatory dextrocurvature Electronically authenticated by: KRISTA ROBERTSON Date: 12/31/2023 09:12
--- NOTE | 2023-12-30 15:45 | XR_ITS ---
The [address] [address] Patient Name: ALLYSON HANCOCK MRN: [id number] date: 1975 Sex: F Assigned Patient Location: [facility] Current Patient Location: [facility] Accession/Order Number: [id number] Exam Date: 12/30/2023 15:30 Report Date: 12/31/2023 09:10 At the request of: NON-STAFF PHYSICIAN Procedure: XR cervical spine 2-3V EXAMINATION: XR cervical spine 2-3V HISTORY: cervical pain COMPARISON: No relevant comparison available. FINDINGS: BONES: Normal alignment with no acute fracture or spondylolisthesis. Reversal of normal lordosis. Moderate spondylosis and facet osteoarthropathy C4-C7 DISC SPACES: Moderate to severe disc space narrowing C4-C7 PARASPINOUS: Negative. No paraspinous abnormality is seen. OTHER: Negative. XR/XR cervical spine 2-3V IMPRESSION: Moderate degenerative changes with reversal of cervical lordosis Electronically authenticated by: KRISTA ROBERTSON Date: 12/31/2023 09:10
== END 2023-12-30 14:37 | disposition home or self-care (01) ==
LOC: RAD 14:38
PROVIDERS: PCP Internal Medicine
DX: M54.2 Cervicalgia (principal); M54.50 Low back pain, unspecified; M47.816 Spondylosis without myelopathy or radiculopathy, lumbar region; M47.812 Spondylosis without myelopathy or radiculopathy, cervical region
CPT/HCPCS: 72040; 72100

== ENCOUNTER 2023-12-30 15:02 | Outpatient (OUT) | payer BC, SELFPAY ==
--- NOTE | 2023-12-30 15:45 | XR_ITS ---
[address] [address] Patient Name: ALLYSON HANCOCK MRN: [id number] date: 1975 Sex: F Assigned Patient Location: [facility] Current Patient Location: Accession/Order Number: [id number] Exam Date: 12/30/2023 15:30 Report Date: 12/31/2023 08:00 At the request of: SHAIKH NADIYA Procedure: XR knee LT 3V PROCEDURE: XR knee LT 3V COMPARISON: None. HISTORY: LEFT KNEE PAIN FINDINGS: BONES:No acute fracture or dislocation. Fragmented anterior tibial tubercle, chronic. SOFT TISSUES:Negative. No visible soft tissue swelling. EFFUSION:None visible. OTHER: Negative. XR/XR knee LT 3V IMPRESSION: No acute abnormality Electronically authenticated by: KRISTA ROBERTSON Date: 12/31/2023 08:00
--- NOTE | 2023-12-30 15:45 | XR_ITS ---
The [address] [address] Patient Name: ALLYSON HANCOCK MRN: [id number] date: 1975 Sex: F Assigned Patient Location: [facility] Current Patient Location: [facility] Accession/Order Number: [id number] Exam Date: 12/30/2023 15:30 Report Date: 12/31/2023 09:09 At the request of: SHAIKH NADIYA Procedure: XR hip LT 2V w/ pelvis PROCEDURE: XR hip LT 2V w/ pelvis COMPARISON: None. HISTORY: left hip pain FINDINGS: BONES:No fracture, acute abnormality, or significant arthropathy. Moderate degenerative changes with rotatory dextrocurvature of the lumbar spine SOFT TISSUES:Negative. No visible soft tissue swelling. EFFUSION:None visible. OTHER: Tubal ligation clips. XR/XR hip LT 2V w/ pelvis IMPRESSION: No acute abnormality Electronically authenticated by: KRISTA ROBERTSON Date: 12/31/2023 09:09
== END 2023-12-30 15:03 | disposition home or self-care (01) ==
LOC: RAD 15:03
PROVIDERS: PCP Internal Medicine; Visit Provider Internal Medicine
DX: M54.2 Cervicalgia (principal); M54.50 Low back pain, unspecified; M47.816 Spondylosis without myelopathy or radiculopathy, lumbar region; M47.812 Spondylosis without myelopathy or radiculopathy, cervical region; M25.552 Pain in left hip; M25.562 Pain in left knee; G89.29 Other chronic pain
CPT/HCPCS: 72040; 72100; 73502; 73562

== ENCOUNTER 2024-01-11 07:35 | Outpatient (RCR) | payer BC, SELFPAY ==
[2024-01-12 07:01] LABS: Basophils Percent Auto 0.7 % (0.2-2.0); Eosinophils Absolute Auto 0.1 10^3/uL (0.0-0.7); Eosinophils Percent Auto 2.1 % (0.9-7.0); Hematocrit 36.9 % (36.0-48.0); Hemoglobin 12.4 g/dL (12.0-16.0); Immature Granulocytes Abs Auto 0.03 10^3/uL (0.00-0.03); Immature Granulocytes Pct Auto 0.5 % (0.0-0.5); Lymphocytes Absolute Auto 2.2 10^3/uL (1.2-3.8); Lymphocytes Percent Auto 36.7 % (20.5-60.0); Mean Corpuscular HGB Conc 33.6 g/dL (29.9-35.2); Mean Corpuscular Volume 89.3 fL (81.0-99.0); Mean Platelet Volume 8.9 fL (9.5-13.5); Monocytes Absolute Auto 0.4 10^3/uL (0.3-0.8); Monocytes Percent Auto 6.9 % (1.7-12.0); Neutrophils Absolute Auto 3.2 10^3/uL (1.4-6.5); Neutrophils Percent Auto 53.1 % (43.0-75.0); Platelet Count 241 10^3/uL (150-450); Red Blood Count 4.13 10^6/uL (4.20-5.40); Red Cell Distribution Width 11.7 % (11.0-15.0); White Blood Count 6.1 10^3/uL (4.0-11.0)
[2024-01-12 07:32] LABS: Alanine Aminotransferase 25 U/L (14-59); Albumin Globulin Ratio 1.1; Albumin Level 3.7 g/dL (3.4-5.0); Alkaline Phosphatase 85 U/L (46-116); Anion Gap 13.3; Aspartate Amino Transferase 22 U/L (15-37); BUN Creatinine Ratio 13.2; Bilirubin Total 0.6 mg/dL (0.2-1.0); Calcium 8.7 mg/dL (8.5-10.1); Carbon Dioxide 22.7 mmol/L (21.0-32.0); Chloride 99 mmol/L (98-107); Estimated GFR (African America >60 (>=60); Estimated GFR (Non-African Ame >60 (>=60); Globulin 3.4 g/dL; Glucose 85 mg/dL (74-106); Sodium 131 mmol/L (136-145); Thyroid Stimulating Hormone 1.678 uIU/mL (0.358-3.740); Total Protein 7.1 g/dL (6.4-8.2)
[2024-01-12 10:05] LABS: Free T4 1.28 ng/dL (0.76-1.46)
[2024-01-13 17:10] LABS: Cortisol - AM 0.4 ug/dL (6.2-19.4)
== END 2024-01-12 10:18 | disposition home or self-care (01) ==
LOC: INF 07:35
PROVIDERS: PCP Internal Medicine; Visit Provider Internal Medicine Hematology & Oncology
DX: C50.911 Malignant neoplasm of unspecified site of right female breast (principal); M25.50 Pain in unspecified joint; M13.0 Polyarthritis, unspecified
CPT/HCPCS: 36415; 80053; 82306; 82533; 84439; 84443; 85025; G0463

== ENCOUNTER 2024-02-01 07:41 | Outpatient (RCR) | payer BC, SELFPAY ==
[2024-02-01 08:22] VITALS: BP 108/76; PULSE 84; TEMP 36.4; O2SAT 99
[2024-02-01] MEDS: FAMOTIDINE/PF 20 MG/2 ML VIAL IVP (08:46)
[2024-02-01] MEDS: DEXAMETHASONE SODIUM PHOSPHATE IV (08:48)
[2024-02-01] MEDS: ONDANSETRON HCL IV (08:48)
[2024-02-01] MEDS: [UNRECOGNIZED DRUG - OTHER] IV (08:48)
[2024-02-01 09:57] VITALS: BP 105/68; PULSE 76; TEMP 36.6; O2SAT 99
== END 2024-02-16 23:59 | disposition home or self-care (01) ==
LOC: HEMC 07:41
PROVIDERS: PCP Internal Medicine; Visit Provider Internal Medicine Hematology & Oncology
DX: C50.911 Malignant neoplasm of unspecified site of right female breast (principal); M25.50 Pain in unspecified joint; M13.0 Polyarthritis, unspecified; E03.9 Hypothyroidism, unspecified; E23.0 Hypopituitarism
CPT/HCPCS: 96365; 96375; G0463; J1100; J2405

== ENCOUNTER 2024-03-22 07:24 | Outpatient (OUT) | payer BC, SELFPAY ==
--- OUTSIDE RECORDS SUMMARY | 2024-03-22 07:27 | XMS_ITS | CCD ---
Author Organization [facility] Care Team Providers Care Heating And Ventilation Engineer Name Role Phone Jasbir Limon Primary Care Provider [phone] Franco Stokes Unavailable Jasbir Limon MD Primary Care Provider Eliel uHrd Primary Care Provider CASHEN, DIANA P Admitting Unavailable MACARENAEN, DIANA P Attending Unavailable ELIEL HURD Primary Care Unavailable SHANTAL, DIANA P Referring Unavailable ELIEL HURD Primary Care Unavailable MD Eliel Hurd Primary Care Provider MD Eliel Hurd Referring Provider [phone] MD Kallie Chang Attending Provider [phone] NON STAFF Attending Provider Unavailable MD Eliel Hurd Primary Care Provider [phone] MD Eliel Hurd Referring Provider [phone] MD Kallie Chang Attending Provider SHANTAL, DIANA P Referring Unavailable ELIEL HURD Primary Care Unavailable ELIEL HURD Primary Care Unavailable SHANTAL, DIANA P Referring Unavailable MD Eliel Hurd Primary Care Provider MD Larissa Saunders Attending Provider MD Eliel Hurd Referring Provider [phone] MD Kallie Chang Attending Provider [phone] MD Eliel Hurd Primary Care Provider MD Larissa Saunders Attending Provider MD Eliel Hurd Referring Provider MD Kallie Chang Attending Provider MD Eliel Hurd Primary Care Provider [phone] DO Adam Vickers Attending Provider [phone] MD Eliel Hurd Referring Provider [phone] MD Kallie Chang Attending Provider MD Eliel Hurd Referring Provider MD Kallie Chang Attending Provider MD Eliel Hurd Referring Provider MD Kallie Chang Attending Provider [phone] MD Eliel Hurd Primary Care Provider MD Eliel Hurd Referring Provider MD Kallie Chang Attending Provider MD Eliel Hurd Primary Care Provider MD Eliel Hurd Referring Provider MD Kallie Chang Attending Provider [phone] EARNEST HDZ Admitting Unavailable HURD ., [...] Unavailable VERNELL ., DR FREITAS Attending Unavailable [place], DR KRISTA Delgado Consulting Unavailable HURD ., DR ELIEL Rouse Primary Care Unavailable VERNELL ., DR FREITAS Admitting Unavailable VERNELL ., DR FREITAS Attending Unavailable VERNELL ., DR FREITAS Consulting Unavailable APLING, BRIEN B Admitting Unavailable SHAIKH Jun ESPAÑA Primary Care Unavailable APLING BRIEN B Attending Unavailable [facility] [place] [place], DR POTTER Consulting Unavailable HURD ., DR ELIEL Rouse Primary Care Unavailable MONIQUE ., DR KAITLIN Norton Admitting Unavailable MONIQUE ., DR KAITLIN Norton Attending Unavailable GIEDRAITIS, ANDRIUS Admitting Unavailable JUAN RICE Referring Unavailable SHAIKH ESPAÑA Primary Care Unavailable GIEDRAITIS, ANDRIUS Attending Unavailable [employer] POZO, Andri Vytautzena Attending Unavailable Elham POZO, Booker Briones Attending Unavailable MD Eliel Hurd Primary Care Provider [phone] MD Eliazar Gibson Attending Provider Shaikh España MD Primary Care Provider [phone] SHAIKH ESPAÑA Primary Care Physician [phone] ANABEL SYDNIE Primary Care Unavailable Ismael BERMAN Attending Unavailable Ismael BERMAN Attending Unavailable ANABEL, SYDNIE Primary Care Unavailable Chidi Rincon Attending Provider [phone] MD To Españaikh Primary Care Provider [phone] Eliazar Gibson Admitting Unavailable Eliazar Gibson Attending Unavailable Eliel Hurd Primary Care Unavailable Shaikh España Primary Care Unavailable Chidi Rincon Admitting Unavailable Chidi Rincon Attending Unavailable CASTILLO GONSALEZ Attending Unavailable CASTILLO GONSALEZ Attending Unavailable SHAIKH ESPAÑA Attending Unavailable SHAIKH ESPAÑA Attending Unavailable JESUS NGUYỄN Attending Unavailable SHAIKH ESPAÑA Attending Unavailable JESUS NGUYỄN Attending Unavailable JESUS NGUYỄN Attending Unavailable JESUS NGUYỄN Referring Unavailable JESUS NGUYỄN Referring Unavailable AWA MARADIAGA Referring Unavailable ELIEL HURD Primary Care Unavailable AWA MARADIAGA. Attending Unavailable Allergies Allergy Classification Reported Allergen(s) Allergy Type Date of Onset Reaction(s) Facility (1 source) No Known Medication Allergies; Translations: [No Known Medication Allergies] Propensity to adverse reactions (disorder) [facility] Repository Medications Current Medications Medication Drug Class(es) Dates Sig (Normalized) Sig (Original) acetaminophen 250 mg / aspirin 250 mg / caffeine 65 mg oral tablet (16 sources) Platelet Aggregation Inhibitor, Nonsteroidal Anti-inflammatory Drug, Central Nervous System Stimulant, Methylxanthine Start: 07-08-2021 take 1 tablet by mouth every four to six hours Aspirin-Acetamin ophen-Caffeine (Excedrin Migraine) 250-250-65 mg Tablet Active 1 TAB PO EVERY 4-6 HOURS July 08, 2021 1:00am take 1 tablet by adair th every six hours as needed for headache eqeeqsb-hyvogdkixfcyl-abhqxefd (EXCEDRIN MIGRAINE) 250-250-65 MG per tablet Take [...] 02/22/2022 Active baclofen 10 mg oral tablet (2 sources) gamma-Aminobuty carlos Acid-ergic Agonist Start: 02-17-2022 End: 02-27-2022 baclofen (LIORESAL) 10 MG tablet Take 1 tablet by mouth in the morning and 1 tablet at noon and 1 tablet before bedtime. Do all this for 10 days. 30 tablet 0 02/17/2022 02/27/2022 Active 12 hr buPROPion hydrochloride 150 mg extended release oral tablet (1 source) Aminoketone Start: 11-03-2023 take 1 tablet by mouth once daily buPROPion 150 mg ER Tab 150 mg = 1 tab(s), Oral, Daily, Refills(s) 0 Start Date: 11/03/23 Status: Ordered calcium chloride 0.0014 meq/ml / potassium chloride 0.004 meq/ml / sodium chloride 0.103 meq/ml / sodium lactate 0.028 meq/ml injectable solution (1 source) Start: 02-18-2022 lactated ringers infusion Start: 02-18-2022 lactated ringe rs infusion citalopram 20 mg oral tablet (20 sources) Serotonin Reuptake Inhibitor Start: 02-27-2021 take [...] 03/03/2022 Active hydrocortisone 20 mg oral tablet (16 sources) Corticosteroid Start: 09-18-2022 Hydrocortisone Active 20 MG PO Daily September 18, 2022 1:00am 20mg and 10mg in the afternoon Start: 06-18-2022 End: 08-06-2022 Hydrocortisone Discontinued 0 .ROUTE .COMPLEX 90 June 18, 2022 1:00am August 06, 2022 2:31pm take 2 tabs in am and 1 tab in pm hydrocortisone ( Cortef) 10 MG tablet Take by mouth Daily. 0 Active 0.5 ml HYDROmorphone hydrochloride 1 mg/ml prefilled syringe (1 source) Opioid Agonist Start: 02-17-2022 HYDROmorphone HCl PF (DILAUDID) injection 0.25 mg ibuprofen 800 mg oral tablet (2 sources) Nonsteroidal Anti-inflammatory Drug Start: 05-12-2022 ibuprofen 800 MG tablet TAKE 1 TABLET BY MOUTH EVERY 6-8 HOURS NEEDED FOR PAIN 0 05/12/2022 Active Ibuprofen Active levothyroxine sodium 0.05 mg oral tablet (16 sources) l-Thyroxine Start: 06-11-2023 take 1 tablet by mouth once daily Synthroid 50 mcg Tab 50 mcg = 1 tab(s), Oral, Daily, Refills(s) 0 Start Date: 06/11/23 Status: Ordered Start: 09-04-2022 End: 10-12-2022 take 1 tablet by mouth once daily Levothyroxine (Synthroid) 50 mcg Tablet Discontinued 50 MCG PO Daily September 04, 2022 2:26pm October 12, 2022 10:38am 10 ml lidocaine hydrochloride 10 mg/ml injection [...] 03, 2021 1:00am August 14, 2021 10:21am pantoprazole 20 mg delayed release oral tablet (3 sources) Proton Pump Inhibitor Start: 06-11-2023 take 1 tablet by mouth once daily Protonix 20 mg Tab-DR 20 mg = 1 tab(s), Oral, Daily, Refills(s) 0 Start Date: 06/11/23 Status: Ordered Start: 02-17-2022 End: 02-17-2022 pantoprazole (PROTONIX) inje ction 40 mg take 1 tablet by adair th before mealtime pantoprazole (ProtoNix) 40 MG EC tablet Take 40 mg by mouth in the morning. Take before meals. Do not crush, chew, or split. . 0 Active rosuvastatin calcium 5 mg oral tablet (1 source) HMG-CoA Reductase Inhibitor Start: 06-11-2023 take 1 tablet by mouth once daily rosuvastatin 5 mg Tab 5 mg = 1 tab(s), Oral, Daily, Refills(s) 0 Start Date: 06/11/23 Status: Ordered 72 hr scopolamine 0.0139 mg/hr transdermal system [...] End: 02-04-2022 0.9 % sodium chloride bolus triamcinolone acetonide 10 mg/ml injectable suspension (1 source) Corticosteroid Start: 03-18-2023 triamcinolone acetonide (Kenalog) injection 10 mg Completed/Discontinued Medications Medication Drug Class(es) Dates Sig (Normalized) Sig (Original) cephalexin 500 mg oral capsule (13 sources) Cephalosporin Antibacterial Start: 07-03-2021 End: 07-08-2021 [...] sodium 50 mg delayed release oral tablet (16 sources) Nonsteroidal Anti-inflammatory Drug Start: 07-08-2021 End: [...] End: 02-04-2022 gadoteridol (PROHANCE) injection 18 mL LORazepam 1 mg oral tablet (20 sources) Benzodiazepine Start: 07-03-2021 End: 03-12-2022 take 1 mg by mouth every six hours Lorazepam Discontinued 1 MG PO Q6H 56 September 04, 2021 12:48pm March 12, 2022 8:55am mometasone furoate 1 mg/ml topical cream (19 sources) Corticosteroid Start: 04-16-2022 End: 08-06-2022 Mometasone Discontinued 1 APPLIC TOPICAL Daily 45 June 09, 2022 1:12pm August 06, 2022 2:31pm omeprazole 20 mg delayed release oral capsule (17 sources) Proton Pump Inhibitor Start: 11-29-2021 take 1 capsule by mouth twice daily omeprazole (PRILOSEC) 20 mg capsule Take 20 mg by mouth twice daily. 0 11/29/2021 Active Start: 07-08-2021 take 20 mg by mouth once daily Omeprazole Active 20 MG PO Daily July 08, 2021 1:00am Comment on above: Take 20 mg by mouth twice daily. predniSONE 20 mg oral tablet (20 sources) Start: 08-17-2022 End: 09-04-2022 take 10 mg by mouth once daily Prednisone Discontinued 10 MG PO Daily 60 August 17, 2022 1:01pm September 04, 2022 3:10pm Start: 08-14-2022 End: 09-18-2022 take 40 mg by mouth once daily, then take 30 mg by mouth once daily, then take 20 mg by mouth once daily Prednisone Discontinued 20 MG PO As Directed September 04, 2022 3:09pm September 18, 2022 [...] daily Prednisone Discontinued 0 .ROUTE .COMPLEX 42 28 July 23, 2022 1:00am August 06, 2022 [...] 8:35am silver sulfADIAZINE 10 mg/ml topical cream (9 sources) Sulfonamide Antibacterial Start: 06-09-2022 End: 08-06-2022 [...] Problem Date Documented Date Episodic/Chronic Abdominal pain (6 sources) Epigastric pain; Translations: [Epigastric pain] Onset: 2022 Episodic Administrative/social admission (14 sources) Patient encounter status; Translations: [Other specified counseling] Onset: 03-02-2023 06-19-2022 Episodic Anxiety disorders (1 source) Mixed anxiety and depressive disorder 06-11-2023 Chronic Cancer of breast (20 sources) Malignant neoplasm of female breast; Translations: [Malignant neoplasm of unspecified site of right female breast] Onset: 06-05-2021 Chronic Diseases of white blood cells (20 sources) Neutropenia due to and following chemotherapy; Translations: [Agranulocytosis secondary to cancer chemotherapy] 11-13-2021 Chronic Disorders of lipid metabolism (5 sources) Hyperlipidemia; Translations: [Hyperlipidemia, unspecified] Onset: 01-23-2022 01-23-2022 Chronic Esophageal disorders (3 sources) Gastro-esophageal reflux disease without esophagitis; Translations: [Gastroesophageal reflux disease without esophagitis] Onset: 04-05-2022 Chronic Headache; including migraine (2 sources) Migraine; Translations: [Migraine, unspecified, not intractable, without status migrainosus] Onset: 04-20-2011 11-30-2022 Chronic Maintenance chemotherapy; radiotherapy (20 sources) Patient encounter status; Translations: [Encounter for antineoplastic chemotherapy] 09-24-2021 Chronic Nonmalignant breast conditions (1 source) Breasts asymmetrical; Translations: [Disproportion of reconstructed breast] Episodic Osteoarthritis (2 sources) Arthritis of left hip; Translations: [Unilateral primary osteoarthritis, left hip] Onset: 11-30-2022 11-30-2022 Chronic Other and unspecified benign neoplasm (1 source) Lipoma of skin and subcutaneous tissue of trunk; Translations: [Benign lipomatous neoplasm of skin and subcutaneous tissue of trunk] Onset: 11-03-2023 Episodic Other and unspecified benign neoplasm (1 source) Lipoma of back 11-03-2023 Episodic Other connective tissue disease (1 source) Pain in left thumb; Translations: [Pain in left finger(s)] 08-25-2023 Episodic Other endocrine disorders (9 sources) Adrenal cortical hypofunction; 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] Onset: 01-14-2023 06-19-2022 Chronic Other endocrine disorders (5 sources) Drug-induced adrenocortical insufficiency; Translations: [Glucocorticoid deficiency] 07-22-2022 Chronic Other endocrine disorders (1 source) Drug-induced adrenocortical insufficiency; 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] Onset: 11-30-2022 11-30-2022 Chronic Other endocrine disorders (1 source) Hypopituitarism 11-01-2023 Chronic Other endocrine disorders (3 sources) Unspecified adrenocortical insufficiency; Translations: [Unspecified adrenocortical insufficiency] Onset: 03-09-2024 Chronic Other nervous system disorders (1 source) Carpal tunnel syndrome; Translations: [Carpal tunnel syndrome, left upper limb] 11-25-2022 Chronic Other nervous system disorders (1 source) Carpal tunnel syndrome of right wrist; Translations: [Carpal tunnel syndrome, right upper limb] Onset: 11-30-2022 11-30-2022 Chronic Other nervous system disorders (2 sources) Carpal tunnel syndrome of left wrist; Translations: [Carpal tunnel syndrome, left upper limb] 11-25-2022 Chronic Other non-traumatic joint disorders (8 sources) Multiple joint pain; Translations: [Pain in unspecified joint] 06-19-2022 Episodic Other non-traumatic joint disorders (1 source) Pain of left wrist; Translations: [Pain in left wrist] 08-25-2023 Episodic Other nutritional; endocrine; and metabolic disorders (2 sources) Body mass index 30+ - obesity; Translations: [Obesity, unspecified] Onset: 11-30-2022 11-30-2022 Chronic Other nutritional; endocrine; and metabolic disorders (1 source) Obesity 11-03-2023 Chronic Other screening for suspected conditions (not mental disorders or infectious disease) (7 sources) Mammography abnormal; Translations: [Other abnormal and inconclusive findings on diagnostic imaging of breast] Onset: 04-07-2022 Episodic Residual codes; unclassified (3 sources) H/O: artificial organ/tissue; Translations: [Other specified postprocedural states] Onset: 02-17-2022 Episodic Spondylosis; intervertebral disc disorders; other back problems (8 sources) Cervical spondylosis; Translations: [Spondylosis without myelopathy or radiculopathy, cervical region] Onset: 09-15-2021 Resolved: 06-11-2023 Chronic Spondylosis; intervertebral disc disorders; other back problems (20 sources) Neck pain; Translations: [Cervical pain (neck)] Onset: 06-18-2021 09-24-2021 Episodic Thyroid disorders (10 sources) Acquired hypothyroidism; Translations: [Hypothyroidism, unspecified] Onset: 03-09-2024 09-04-2022 Chronic Unclassified (2 sources) CONTACT W/AND (SUSP) EXPOS COVID-19; Translations: [CONTACT W/AND (SUSP) EXPOS COVID-19] Onset: 04-01-2022 Unclassified (1 source) Patient encounter status 11-03-2023 Unclassified (1 source) Triple-negative breast cancer Onset: 06-05-2021 06-11-2023 Viral infection (1 source) COVID-19; Translations: [COVID-19] Onset: 04-01-2022 Past or Other Problems Problem Classification Problem Date Documented Date Episodic/Chronic Cancer of breast (2 sources) History of malignant neoplasm of breast; Translations: [Personal history of malignant neoplasm of breast] Onset: 03-02-2023 Episodic Immunizations and screening for infectious disease (1 source) Encounter for screening for human papillomavirus (HPV); Translations: [ENC SCREENING HUMAN PAPILLOMAVIRUS] Onset: 04-08-2022 Episodic Other non-traumatic joint disorders (6 sources) Pain in unspecified joint; Translations: [Pain in joint, multiple sites] Onset: 04-07-2023 07-22-2022 Episodic Residual codes; unclassified (4 sources) Personal history of antineoplastic chemotherapy; Translations: [PERSONAL HX ANTINEOPLASTIC CHEMO] Onset: 04-14-2022 Episodic Residual codes; unclassified (1 source) History of breast reconstruction; Translations: [Other specified postprocedural states] Onset: 02-17-2022 03-02-2023 Episodic Unclassified (1 source) CONTACT W/AND (SUSP) EXPOS COVID-19; Translations: [CONTACT W/AND (SUSP) EXPOS COVID-19] Onset: 03-14-2022 Results Test Name Value Interpretation Reference Range Facility 36on 03-15-2024 36 Called patient to inform regarding lab results. Left voice message. FSH is elevated consistent with menopause. Prolactin normal. No further testing needed. Normal [facility] Telephoneon 03-15-2024 Telephone [id number] Tenisha Hancock 1975 F Date Provider Department [place] 03/15/2024 [id number] BASSETT [facility] ENDOCR [facility] No family history on file Reason for Visit and Comments: Labs [[id number]] Normal [facility] 37on 03-09-2024 37 Please take your thyroid hormone medication (levothyroxine) first thing in the morning on empty stomach with plain water, from other medication by 1 to 2 hours (especially, by 2 to 4 hours from calcium, iron and multivitamin pills), and wait 30 min before eating. Please contact the office for test results in one (1) week from test date if you are not informed Obtain a Medical Alert for Adrenal Insufficiency. HYDROCORTISONE ADJUSTMENT DURING STRESSES Minor: e.g., viral illness, uncomplicated infections - Take 20 mg on rising, 10 mg at noon, 10 mg 5pm starting immediately at onset of symptoms of acute illness for 2 to 3 days until symptoms improve. - Then go back to usual dose Moderate: e.g., minor surgery, heart attack - Take 25 mg of hydrocortisone every 6 hours starting immediately at onset of symptoms of 2 to 3 days. - Then, take 15 mg of hydrocortisone every 6 hours for 2 to 3 days until symptoms improve. - Then, go back to usual dose Severe: e.g. critical illness, prolonged/complicated surgery - 25 mg IV every 6 hours (50 mg if hypotensive) - Taper down gradually as clinically indicated - No need for mineralocorticoid when total hydrocortisone dose is > 50 mg/day Video demonstration of emergency hydrocortisone intramuscular injection (Solu-Cortef Act-O-Vial): Solu-Cortef Emergency Injection [email or web address]://www.roomlinx.c om/[email or web address]?v=[email or web address] Normal [facility] E2 [Mass/Vol]on 03-09-2024 ESTRADIOL 67.8 pg/mL Normal [facility] Comment on above: Result Comment: NON- FEMALES Mid follicular: 25-115 pg/mL Ovulatory Peak: 32.1-517 pg/mL Mid Luteal: 36.5-246 pg/mL Post-Menopausal Females: <15.0-25.1 pg/mL (Not on hormone therapy) The Access Sensitive Estradiol assay results are not intended to be used to measure the effectiveness of exogeneous Estradiol supplementation, for example, when the patient is on hormone replacement therapy. The presence of estradiol drug analogues and their metabolites could have an impact on estradiol recovery when using this assay. Performed By: #### 2 842-3, 2243-4, 33298-7 #### [facility] ([id number]) [address], [address] [place] [address] Follitropin Qnon 03-09-2024 FOLLICLE STIM HORMONE 58.1 mIU/mL Normal Pr [facility] Comment on above: Result Comment: NORMAL FEMALE Luteal 1.8-5.1 mIU/mL Follicular 3.8-8.8 mIU/mL Mid Cycle 4.5-22.5 mIU/mL Post Romy 16.7-113.6 mIU/mL Performed By: #### 2 842-3, 2243-4, 26869-2 #### [facility] ([id number]) [address] [place] [address], [address] [place] [address] Office Visiton 03-09-2024 Follow-up visit [id number] Tenisha Hancock 1975 F Date Provider Department Center 03/09/2024 [id number], AWA Sequeira [facility] ENDOCR [facility] No family history on file Level of Service:93853 IN OFFICE/OUTPATIENT NEW MODERATE MDM 45 MINUTES Reason for Visit and Comments: New Patient [632] Normal [facility] Prolactin [Mass/Vol]on 03-09 PROLACTIN 4.8 ng/mL Normal 3.3-26.7 [facility] Comment on above: Performed By: #### 2 842-3, 2243-4, 53054-0 #### [facility] ([id number]) [address], [address] [place] [address] MR breast BI wo/w con CADon 01-11-2024 MR breast BI wo/w con CAD [facility] Main [address] [address] MRI Report Signed Patient: Tenisha Hancock MR#: [id number] : 1975 Acct:[id number] Age/Sex: 48 / F ADM Date: 01/10/24 Loc: MR Room: Type: [facility] Attending Dr: Chidi Rincon Copies to: Chidi Rincon Ordering Provider: Chidi Rincon Date of Service: 01/10/24 MR/MR breast BI wo/w con CAD: R92.8 BILATERAL BREAST MRI WITHOUT AND WITH INTRAVENOUS CONTRAST CLINICAL HISTORY: History of right-sided breast cancer status post lumpectomy in 2022. Abnormal mammogram and ultrasound. COMPARISON: Diagnostic mammogram and ultrasound performed at outside institution 11/04/2023. Breast MRI 10/07/2021 TECHNIQUE: Multisequence, multiplanar imaging of the breasts were obtained before and after the use of IV contrast. All imaged data was reviewed using the Just[employer] system. The postcontrast images were subtracted and CAD mapping of the enhancement kinetics was performed. Kinetic curves were generated. 2D and 3D MIP images were also reviewed. FINDINGS: The breasts are composed of scattered fibroglandular densities with minimal background parenchymal enhancement. Postoperative/treatme nt changes are noted involving the right breast. A presumed lumpectomy site is seen along the posterior aspect of the right breast at the approximately 9:00 position within rim enhancement measuring approximately 2.0 x 1.6 x 1.0 cm. No nodular enhancement is seen to suggest tumor recurrence. No areas of masslike or nonmass-like enhancement within either breast. No suspicious intramammary or axillary lymph nodes. MR/MR breast BI wo/w con CAD IMPRESSION: POSTOPERATIVE/POSTTRE ATMENT CHANGES INVOLVING THE RIGHT BREAST WITHOUT DEFINITIVE MRI EVIDENCE OF RESIDUAL TUMOR OR ADDITIONAL SITES OF DISEASE. NO MRI EVIDENCE OF MALIGNANCY WITHIN THE CONTRALATERAL BREAST. NO MRI EVIDENCE OF LOCAL METASTATIC DISEASE. MAMMOGRAPHIC/ULTRASOU ND FOLLOW- UP OF THE ABNORMALITIES SEEN ON THE PREVIOUS STUDIES IN 6 MONTHS IS RECOMMENDED. RESULT CODE: 2 Benign Findings(s) FOLLOW UP: 6M Impression dictated by: Jamari Guzman Jr., D.O.01/11/2024 10:59 AM Dictation Location: [place] [address] Transcribed By: [facility] 01/11/24 1059 Dictated By: Jamari Guzman Jr, DO 01/11/24 1047 Signed By: 01/11/24 1059 Normal [facility] Outside Colonoscopyon 2023 Outside Colonoscopy [id number]#1. 00TIFF [facility] Lab Reportson 12-23-2023 Lab Reports [id number]#1. 00TIFF [facility] Reminderson 12-23-2023 Reminders - From: Andie Hodge LPN To: N - Clinical; Sent: 12/23/2023 12:00:00 EDT Show up: 11/20/2033 07:00:00 EDT Subject: colonoscopy recall Due Date/Time: 12/21/2033 07:00:00 EDT Reminder/Recall Patient due for screening colonoscopy 12/21/2033. [facility] Insurance Correspondenceon 0 12-08-2023 Insurance Correspondence [id number]# 1.00TIFF [facility] Consent for Procedure/Surger yon 11-04-2023 Consent for Procedure/Surgery [id number]#1 .00TIFF [facility] Facesheeton 11-04-2023 Facesheet [id number]# 1.00TIFF [facility] Ambulatory Visit Summaryon 0 11-03-2023 Ambulatory Visit Summary TENISHA HANCOCK :1975 Visit Date:11/03/2023 Ambulatory Visit Instructions Your Care Team Attending Physician - ANTONELLA POZO, Ismael Christianson Primary Care Physician - PATRIA POZO, This Is Your Medications List Contact prescribing physician if questions or concerns buPROPion (buPROPion 150 mg ER Tab) citalopram (CeleXA 20 mg Tab) hydrocortisone (hydrocortisone 20 mg oral tablet) levothyroxine (Synthroid 50 mcg Tab) ondansetron (ondansetron 8 mg Dis Tab) pantoprazole (Protonix 20 mg Tab-DR) rosuvastatin (rosuvastatin 5 mg Tab) Procedures Performed Biopsy of breast, Breast reconstruction, Carpal tunnel release, Cholecystectomy, Endometrial ablation, Hemorrhoidectomy, History of cervical spine surgery, Insertion of implantable venous access port, LEEP, Lumpectomy of right breast, Plantar fasciotomy, Tubal ligation. Discharge Vitals Heart Rate (Peripheral) 70 Respiratory Rate 16 Blood Pressure 112/66 Height 160 cm Height 63 in Weight 77.7 kg Weight 170.94 lb BMI 30.35 Medications What How Much When Instructions Unchanged buPROPion (buPROPion 150 mg ER Tab) 1 Tablets By Mouth Every day Contact prescribing physician if questions or concerns Unchanged citalopram (CeleXA 20 mg Tab) 1 Tablets By Mouth Every day Contact prescribing physician if questions or concerns Unchanged hydrocortisone (hydrocortisone 20 mg oral tablet) See instructions 1 tab po QAM and 0.5 tabs po QPM Contact prescribing physician if questions or concerns Unchanged levothyroxine (Synthroid 50 mcg Tab) 1 Tablets By Mouth Every day Contact prescribing physician if questions or concerns Unchanged ondansetron (ondansetron 8 mg Dis Tab) 1 Tablets By Mouth Every 8 hours as needed for Nausea Contact prescribing physician if questions or concerns Unchanged pantoprazole (Protonix 20 mg Tab-DR) 1 Tablets By Mouth Every day Contact prescribing physician if questions or concerns Unchanged rosuvastatin (rosuvastatin 5 mg Tab) 1 Tablets By Mouth Every day Contact prescribing physician if questions or concerns Allergies No Known Allergies No Known Medication Allergies Problems Ongoing - Any problem that you are currently receiving treatment for. Adrenal cortical hypofunction Anxiety and depression BMI 30.0-30.9,adult GERD (gastroesophageal reflux disease) Hyperlipidemia Hypopituitarism Hypothyroidism Lumbar radiculopathy Migraines Obesity Triple-negative breast cancer Historical - Any problem that you are no longer receiving treatment for. Cervical spondylosis Patient Survey You may receive a survey via text or e-mail asking about your office visit. Please share your experience with us by completing your survey. We appreciate your feedback and thank you for choosing us for your care. Normal [facility] Physician Referralon 024 Physician Referral [id number] 3 [id number] .[id number] Normal [facility] Physician Referralon 024 Physician Referral [id number]. 00TIFF Normal [facility] Physician Referralon 023 Physician Referral [id number] 1 [id number]#1 .00TIFF Normal [facility] Physician Referralon 023 Physician Referral [id number] 0 [id number]#1 .00TIFF Normal [facility] LEONARD Antinuclear Antibodieson 04-07-2023 Antinuclear Abs, IFA Positive Critically abnormal . [facility] Comment on above: Result Comment: Nega tive <1:80 Borderline 1:80 Positive >1:80 Performed By: #### C RP, ESR #### [facility] [address] [place] [address] [place] #### LEONARD #### [facility] , Homogeneous Pattern 1:80 Normal . [facility] Comment on above: Result Comment: ICAP nomenclature: AC-1 Performed By: #### C RP, ESR #### [facility] [address] [place] [address] [place] #### LEONARD #### [facility] , Note 1 Normal . [facility] Comment on above: Result Comment: For more [...] titers Nucleosomes, Histones Drug-induced SLE Speckled Sm, BOILERMAKING SUPERVISOR, SCL-70, SLE,MCTD,PSS (diffuse form), SS-A/SS-B Sjogrens Nucleolar SCL-70, PM-1/SCL High titers Scleroderma, PM/DM Centromere Centromere PSS (limited form) w/Crest syndrome variable Nuclear Dot Sp100,m35-wiloiy Primary Biliary Cirrhosis Nuclear GP210, Primary Biliary Cirrhosis Membrane scarlett A,B,C Performed at: [address] [id number] Machinist Mate: Red Sena PhD, Phone: [phone] PERFORMED BY: [facility] [address] PATHOLOGIST FINISHING ROOM OPERATOR CHITO HENDRICKS M.D. Performed By: #### C RP, ESR #### [place] [address] [place] #### LEONARD #### [facility] , Speckled Pattern 1:160 High . [facility] Comment on above: Result Comment: ICAP nomenclature: AC-2,4,5,29 Performed By: #### C RP, ESR #### [place] [address] [place] #### LEONARD #### [facility] , C reactive protein [Mass/vol ume] in Serum or PlasmaOrdered By: Eliazar Gibson on 04-07-2023 CRP [Mass/Vol] < 0.5 mg/dL 0.0-0.5 [facility] C-Reactive Proteinon 023 CRP [Mass/Vol] mg/L Normal 0.0-0.5 [facility] Comment on above: Result Comment: PERF ORMED BY: [place] [address] PATHOLOGIST FINISHING ROOM OPERATOR CHITO HENDRICKS M.D. Performed By: #### C RP, ESR #### [address] #### LEONARD #### [facility] , Erythrocyte Sedimentation Ra logan 04-07-2023 ESR (Bld) [Velocity] 22 mm/h High 0-19 [facility] Comment on above: Result Comment: PERF ORMED BY: [place] [address] PATHOLOGIST FINISHING ROOM OPERATOR CHITO HENDRICKS M.D. Performed By: #### C RP, ESR #### [place] [address] [place] #### LEONARD #### [facility] , Erythrocyte sedimentation ra te by Photometric methodOrdered By: Eliazar Gibson on 04-07-2023 ESR Photometric method (Bld) [Velocity] 22 mm/hr 0-19 [facility] Retail - Clinical Noteon Retail - Clinical Note [id number]#1. 00CD:[id number] Normal [facility] Serum or plasma thyroperoxid ase antibody assay (units/volume)Ordered By: Elizabeth Pérez on 11-16-2022 TPO Ab Qn 13 [IU]/mL 0-34 [facility] Comment on above: Performed at: [facility] [employer] [place] [id number] Director: Red Sena PhD, Phone: [phone] Thyrotropin [Units/volume] i n Serum or PlasmaOrdered By: Elizabeth Pérez on 11-16-2022 TSH Qn 1.03 m[IU]/L 0.45-5.33 [facility] Thyroxine (T4) free [Mass/vo lume] in Serum or PlasmaOrdered By: Elizabeth Pérez on 11-16-2022 Free T4 [Mass/Vol] 1.03 ng/dL 0.61-1.12 [facility] Triiodothyronine (T3) Free [ Mass/volume] in Serum or PlasmaOrdered By: Elizabeth Pérez on 11-16-2022 Free T3 [Mass/Vol] 4.39 pg/mL 2.50-3.90 [facility] Albumin [Mass/volume] in Bod y fluidOrdered By: Kallie Chang on 09-16-2022 Albumin (Body fld) [Mass/Vol] 3.7 g/dL 3.2-5.5 [facility] Alkaline phosphatase [Enzyma tic activity/volume] in Serum or PlasmaOrdered By: Kallie Chang on 09-16-2022 ALP [Catalytic activity/Vol] 85 U/L 32-92 [facility] Aspartate aminotransferase [ Enzymatic activity/volume] in Serum or PlasmaOrdered By: Kallie Chang on 09-16-2022 AST [Catalytic activity/Vol] 20 U/L 10-42 [facility] Basophils Auto (Bld) [#/Vol] Ordered By: Kallie Chang on 09-16-2022 Basophils (Bld) [#/Vol] 0.0 10*3/uL 0.0-0.2 [facility] Basophils/100 WBC Auto (Bld) Ordered By: Kallie Chang on 09-16-2022 Basophils/100 WBC (Bld) 0.3 % . [facility] Bilirubin.total [Mass/volume ] in Serum or PlasmaOrdered By: Klalie Chang on 09-16-2022 Bilirubin [Mass/Vol] 0.6 mg/dL 0.3-1.2 [facility] Calcium [Mass/volume] in Ser um or PlasmaOrdered By: Kallie Chang on 09-16-2022 Calcium [Mass/Vol] 9.2 mg/dL 8.2-10.2 [facility] Carbon dioxide, total [Moles /volume] in Serum or PlasmaOrdered By: Kallie Chang on 09-16-2022 CO2 [Moles/Vol] 23.1 mmol/L 22.0-30.0 [facility] Chloride [Moles/volume] in S nathaly or PlasmaOrdered By: Kallie Chang on 09-16-2022 Chloride [Moles/Vol] 102 mmol/L 95-114 [facility] Creatinine and Glomerular fi ltration rate.predicted panel (S/P/Bld)Ordered By: Kallie Chang on 09-16-2022 Creatinine [Mass/Vol] 0.98 mg/dL 0.44-1.03 [facility] Eosinophils Auto (Bld) [#/Vo l]Ordered By: Kallie Chang on 09-16-2022 Eosinophils (Bld) [#/Vol] 0.0 10*3/uL 0.0-0.45 [facility] Eosinophils/100 WBC Auto (Bl d)Ordered By: Kallie Chang on 09-16-2022 Eosinophils/100 WBC (Bld) 0.1 % . [facility] Erythrocyte distribution wid th Auto (RBC) [Ratio]Ordered By: Kallie Chang on 09-16-2022 Erythrocyte distribution width (RBC) [Ratio] 15.1 % 11.9-15.3 [facility] Estimated glomerular filtrat ion rate (GFR) non- AmericanOrdered By: Kallie Chang on 09-16-2022 GFR/1.73 sq M.predicted among non-blacks MDRD (S/P/Bld) [Vol rate/Area] > 60 mL/Min [facility] Globulin Calc (S) [Mass/Vol] Ordered By: Kallie Chang on 09-16-2022 Globulin (S) [Mass/Vol] 2.8 g/dL [facility] Glucose [Mass/volume] in Ser um or PlasmaOrdered By: Kallie Chang on 09-16-2022 Glucose [Mass/Vol] 176 mg/dL 70-100 [facility] Comment on above: ADA recommended refe rence rangeRandom Glucose Reference Range is dependent on time and content of last meal. Glucose of more than 200 mg/dL in a nonstressed, ambulatory subject supports the diagnosis of Diabetes Mellitus. Hematocrit Auto (Bld) [Volum e fraction]Ordered By: Kallie Chang on 09-16-2022 Hematocrit (Bld) [Volume fraction] 38.3 % 34.0-46.4 [facility] Hemoglobin [Mass/volume] in BloodOrdered By: Kallie Chang on 09-16-2022 Hemoglobin (Bld) [Mass/Vol] 12.5 g/dL 11.8-15.4 [facility] Leukocytes [#/volume] correc annie for nucleated erythrocytes in Blood by Automated counOrdered By: Kallie Chang on 09-16-2022 WBC corrected for nucl RBC Auto (Bld) [#/Vol] 11.5 10*3/uL 3.8-11.6 [facility] Lymphocytes Auto (Bld) [#/Vo l]Ordered By: Kallie Chang on 09-16-2022 Lymphocytes (Bld) [#/Vol] 0.7 10*3/uL 1.00-4.8 [facility] Lymphocytes/100 WBC Auto (Bl d)Ordered By: Kallie Chang on 09-16-2022 Lymphocytes/100 WBC (Bld) 6.2 % . [facility] MCH Auto (RBC) [Entitic mass ]Ordered By: Kallie Chang on 09-16-2022 MCH (RBC) [Entitic mass] 30.2 pg 24.7-34.3 [facility] MCHC Auto (RBC) [Mass/Vol]Or dered By: Kallie Chang on 09-16-2022 MCHC (RBC) [Mass/Vol] 32.7 g/dL 32.0-35.0 [facility] MCV Auto (RBC) [Entitic vol] Ordered By: Kallie Chang on 09-16-2022 MCV (RBC) [Entitic vol] 92.4 fL 80-100 [facility] Monocytes Auto (Bld) [#/Vol] Ordered By: Kallie Chang on 09-16-2022 Monocytes (Bld) [#/Vol] 0.3 10*3/uL 0.0-0.8 [facility] Monocytes/100 WBC Auto (Bld) Ordered By: Kallie Chang on 09-16-2022 Monocytes/100 WBC (Bld) 2.3 % . [facility] Neutrophils Auto (Bld) [#/Vo l]Ordered By: Kallie Chang on 09-16-2022 Neutrophils (Bld) [#/Vol] 10.4 10*3/uL 1.8-7.7 [facility] Neutrophils/100 WBC Auto (Bl d)Ordered By: Kallie Chang on 09-16-2022 Neutrophils/100 WBC (Bld) 91.1 % . [facility] No Panel InformationOrdered By: Kallie Chang on 09-16-2022 Adrenocorticotropic Hormone <1.5 pg/mL 7.2-63.3 [facility] Comment on above: ACTH reference inter ervin for samples collected between 7 and10 AM.Performed at: [facility] [id number] Director: Red Sena PhD, Phone: [phone] Estimated GFR () > 60 mL/Min [facility] Comment on above: GFR estimated refere nce range: According to KDOQI guidelines, <60 ml/min/1.73m2 is sufficient to diagnose a patient with chronic kidney disease. Pharmacy Creatinine Clearance (Chem 72.74 [facility] Nucleated erythrocytes [Pres ence] in Blood by Automated countOrdered By: Kallie Chang on 09-16-2022 Nucleated RBC Auto Ql (Bld) 0.1 /100{WBC} 0-0.5 [facility] Platelet mean volume Auto (B ld) [Entitic vol]Ordered By: Kallie Chang on 09-16-2022 Platelet mean volume (Bld) [Entitic vol] 6.9 fL 6.3-10.7 [facility] Platelets Auto (Bld) [#/Vol] Ordered By: Kallie Chang on 09-16-2022 Platelets (Bld) [#/Vol] 287 10*3/uL 150-450 [facility] Potassium [Moles/volume] in Serum or PlasmaOrdered By: Kallie Chang on 09-16-2022 Potassium [Moles/Vol] 4.3 mmol/L 3.5-5.1 [facility] Protein [Mass/volume] in Ser um or PlasmaOrdered By: Kallie Chang on 09-16-2022 Protein [Mass/Vol] 6.5 g/dL 6.1-7.9 [facility] RBC Auto (Bld) [#/Vol]Ordere d By: Kallie Chang on 09-16-2022 RBC (Bld) [#/Vol] 4.14 10*6/uL 3.60-5.00 [facility] Random cortisol measurementO rdered By: Kallie Chang on 09-16-2022 Cortisol [Mass/Vol] 3.7 ug/dL [facility] Comment on above: Reference range: AM 6 - 24 ug/dl PM <10 ug/dl Serum or plasma alanine napoles otransferase measurement without P-5'-P (enzymatic activiOrdered By: Kallie Chang on 09-16-2022 ALT No additional P-5'-P [Catalytic activity/Vol] 16 U/L 10-60 [facility] Serum or plasma albumin/glob ulin mass ratioOrdered By: Kallie Chang on 09-16-2022 Albumin/Globulin [Mass ratio] 1.3 {ratio} [facility] Serum or plasma anion gap de terminationOrdered By: Kallie Chang on 09-16-2022 Anion gap [Moles/Vol] 13.2 mmol/L 6.0-15.0 [facility] Sodium [Moles/volume] in Ser um or PlasmaOrdered By: Kallie Chang on 09-16-2022 Sodium [Moles/Vol] 134 mmol/L 136-146 [facility] TSH DL <= 0.005 mIU/L QnOrde red By: Kallie Chang on 09-16-2022 TSH Qn 0.51 m[IU]/L 0.45-5.33 [facility] Thyroxine (T4) free [Mass/vo lume] in Serum or PlasmaOrdered By: Kallie Chang on 09-16-2022 Free T4 [Mass/Vol] 0.84 ng/dL 0.61-1.12 [facility] Urea nitrogen [Mass/volume] in Serum or PlasmaOrdered By: Kallie Chang on 09-16-2022 Urea nitrogen [Mass/Vol] 15 mg/dL 9-23 [facility] WBC Auto (Bld) [#/Vol]Ordere d By: Kallie Chang on 09-16-2022 WBC (Bld) [#/Vol] 11.5 10*3/uL 3.8-11.6 [facility] Albumin [Mass/volume] in Ser um or PlasmaOrdered By: Kallie Chang on 08-05-2022 Albumin [Mass/Vol] 3.8 g/dL 3.2-5.5 [facility] Basophils Auto (Bld) [#/Vol] Ordered By: Kallie Chang on 08-05-2022 Basophils (Bld) [#/Vol] 0.0 10*3/uL 0.0-0.2 [facility] Basophils/100 WBC Auto (Bld) Ordered By: Kallie Chang on 08-05-2022 Basophils/100 WBC (Bld) 0.2 % . [facility] Creatinine and Glomerular fi ltration rate.predicted panel (S/P/Bld)Ordered By: Kallie Chang on 08-05-2022 Creatinine [Mass/Vol] 1.03 mg/dL 0.44-1.03 [facility] Eosinophils Auto (Bld) [#/Vo l]Ordered By: Kallie Chang on 08-05-2022 Eosinophils (Bld) [#/Vol] 0.0 10*3/uL 0.0-0.45 [facility] Eosinophils/100 WBC Auto (Bl d)Ordered By: Kallie Chang on 08-05-2022 Eosinophils/100 WBC (Bld) 0.0 % . [facility] Erythrocyte distribution wid th Auto (RBC) [Ratio]Ordered By: Kallie Chang on 08-05-2022 Erythrocyte distribution width (RBC) [Ratio] 14.9 % 11.9-15.3 [facility] Estimated glomerular filtrat ion rate (GFR) non- AmericanOrdered By: Kallie Chang on 08-05-2022 GFR/1.73 sq M.predicted among non-blacks MDRD (S/P/Bld) [Vol rate/Area] 58 mL/Min [facility] Globulin Calc (S) [Mass/Vol] Ordered By: Kallie Chang on 08-05-2022 Globulin (S) [Mass/Vol] 2.9 g/dL [facility] Hematocrit Auto (Bld) [Volum e fraction]Ordered By: Kallie Chang on 08-05-2022 Hematocrit (Bld) [Volume fraction] 37.2 % 34.0-46.4 [facility] Hemoglobin [Mass/volume] in BloodOrdered By: Kallie Chang on 08-05-2022 Hemoglobin (Bld) [Mass/Vol] 12.2 g/dL 11.8-15.4 [facility] Lactate dehydrogenase measur ement (enzymatic activity/volume)Ordered By: Kallie Chang on 08-05-2022 LDH (Unsp spec) [Catalytic activity/Vol] 169 U/L 45-190 [facility] Leukocytes [#/volume] correc annie for nucleated erythrocytes in Blood by Automated counOrdered By: Kallie Chang on 08-05-2022 WBC corrected for nucl RBC Auto (Bld) [#/Vol] 9.3 10*3/uL 3.8-11.6 [facility] Lymphocytes Auto (Bld) [#/Vo l]Ordered By: Kallie Chang on 08-05-2022 Lymphocytes (Bld) [#/Vol] 0.5 10*3/uL 1.00-4.8 [facility] Lymphocytes/100 WBC Auto (Bl d)Ordered By: Kallie Chang on 08-05-2022 Lymphocytes/100 WBC (Bld) 5.5 % . [facility] MCH Auto (RBC) [Entitic mass ]Ordered By: Kallie Chang on 08-05-2022 MCH (RBC) [Entitic mass] 29.8 pg 24.7-34.3 [facility] MCHC Auto (RBC) [Mass/Vol]Or dered By: Kallie Chang on 08-05-2022 MCHC (RBC) [Mass/Vol] 32.8 g/dL 32.0-35.0 [facility] MCV Auto (RBC) [Entitic vol] Ordered By: Kallie Chang on 08-05-2022 MCV (RBC) [Entitic vol] 90.9 fL 80-100 [facility] Monocytes Auto (Bld) [#/Vol] Ordered By: Kallie Chang on 08-05-2022 Monocytes (Bld) [#/Vol] 0.1 10*3/uL 0.0-0.8 [facility] Monocytes/100 WBC Auto (Bld) Ordered By: Kallie Chang on 08-05-2022 Monocytes/100 WBC (Bld) 1.4 % . [facility] Neutrophils Auto (Bld) [#/Vo l]Ordered By: Kallie Chang on 08-05-2022 Neutrophils (Bld) [#/Vol] 8.7 10*3/uL 1.8-7.7 [facility] Neutrophils/100 WBC Auto (Bl d)Ordered By: Kallie Chang on 08-05-2022 Neutrophils/100 WBC (Bld) 92.9 % . [facility] No Panel InformationOrdered By: Kallie Chang on 08-05-2022 Adrenocorticotropic Hormone <1.5 pg/mL 7.2-63.3 [facility] Comment on above: ACTH reference inter ervin for samples collected between 7 and10 AM.Performed at: [facility] [id number] Director: Red Sena PhD, Phone: [phone] Estimated GFR () > 60 mL/Min [facility] Comment on above: GFR estimated refere nce range: According to KDOQI guidelines, <60 ml/min/1.73m2 is sufficient to diagnose a patient with chronic kidney disease. Pharmacy Creatinine Clearance (Chem 67.73 [facility] Nucleated erythrocytes [Pres ence] in Blood by Automated countOrdered By: Kallie Chang on 08-05-2022 Nucleated RBC Auto Ql (Bld) 0.0 /100{WBC} 0-0.5 [facility] Platelet mean volume Auto (B ld) [Entitic vol]Ordered By: Kallie Chang on 08-05-2022 Platelet mean volume (Bld) [Entitic vol] 7.1 fL 6.3-10.7 [facility] Platelets Auto (Bld) [#/Vol] Ordered By: Kallie Chang on 08-05-2022 Platelets (Bld) [#/Vol] 263 10*3/uL 150-450 [facility] Protein [Mass/volume] in Ser um or PlasmaOrdered By: Kallie Chang on 08-05-2022 Protein [Mass/Vol] 6.7 g/dL 6.1-7.9 [facility] RBC Auto (Bld) [#/Vol]Ordere d By: Kallie Chang on 08-05-2022 RBC (Bld) [#/Vol] 4.09 10*6/uL 3.60-5.00 [facility] Serum or plasma alanine napoles otransferase measurement without P-5'-P (enzymatic activiOrdered By: Kallie Chang on 08-05-2022 ALT No additional P-5'-P [Catalytic activity/Vol] 16 U/L 10-60 [facility] Serum or plasma albumin/glob ulin mass ratioOrdered By: Kallie Chang on 08-05-2022 Albumin/Globulin [Mass ratio] 1.3 {ratio} [facility] Serum or plasma alkaline zo sphatase measurement (enzymatic activity/volume)Ordered By: Kallie Chang on 08-05-2022 ALP [Catalytic activity/Vol] 89 U/L 32-92 [facility] Serum or plasma anion gap de terminationOrdered By: Kallie Chang on 08-05-2022 Anion gap [Moles/Vol] 16.6 mmol/L 6.0-15.0 [facility] Serum or plasma aspartate am inotransferase measurement (enzymatic activity/volume)Ordered By: Kallie Chang on 08-05-2022 AST [Catalytic activity/Vol] 18 U/L 10-42 [facility] Serum or plasma calcium daiana urement (mass/volume)Ordered By: Kallie Chang on 08-05-2022 Calcium [Mass/Vol] 9.1 mg/dL 8.2-10.2 [facility] Serum or plasma chloride lizett surement (moles/volume)Ordered By: Kallie Chang on 08-05-2022 Chloride [Moles/Vol] 99 mmol/L 95-114 [facility] Serum or plasma glucose daiana urement (mass/volume)Ordered By: Kallie Chang on 08-05-2022 Glucose [Mass/Vol] 164 mg/dL 70-100 [facility] Comment on above: ADA recommended refe rence rangeRandom Glucose Reference Range is dependent on time and content of last meal. Glucose of more than 200 mg/dL in a nonstressed, ambulatory subject supports the diagnosis of Diabetes Mellitus. Serum or plasma potassium me asurement (moles/volume)Ordered By: Kallie Chang on 08-05-2022 Potassium [Moles/Vol] 4.6 mmol/L 3.5-5.1 [facility] Serum or plasma sodium measu rement (moles/volume)Ordered By: Kallie Chang on 08-05-2022 Sodium [Moles/Vol] 135 mmol/L 136-146 [facility] Serum or plasma total biliru bin measurement (mass/volume)Ordered By: Kallie Chang on 08-05-2022 Bilirubin [Mass/Vol] 0.7 mg/dL 0.3-1.2 [facility] Serum or plasma total carbon dioxide measurement (moles/volume)Ordered By: Kallie Chang on 08-05-2022 CO2 [Moles/Vol] 24.0 mmol/L 22.0-30.0 [facility] Serum or plasma urea nitroge n measurement (mass/volume)Ordered By: Kallie Chang on 08-05-2022 Urea nitrogen [Mass/Vol] 15 mg/dL 9- [facility] TSH DL <= 0.005 mIU/L QnOrde red By: Kallie Chang on 08-05-2022 TSH Qn 0.70 m[IU]/L 0.45-5.33 [facility] Thyroxine (T4) free [Mass/vo lume] in Serum or PlasmaOrdered By: Kallie Chang on 08-05-2022 Free T4 [Mass/Vol] 0.71 ng/dL 0.61-1.12 [facility] WBC Auto (Bld) [#/Vol]Ordere d By: Kallie Chang on 08-05-2022 WBC (Bld) [#/Vol] 9.3 10*3/uL 3.8-11.6 [facility] Random cortisol measurementO rdered By: Kallie Chang on 07-22-2022 Cortisol [Mass/Vol] 2.6 ug/dL [facility] Comment on above: Reference range: AM 6 - 24 ug/dl PM <10 ug/dl Albumin [Mass/volume] in Ser um or PlasmaOrdered By: Kallie Chang on 06-17-2022 Albumin [Mass/Vol] 3.6 g/dL 3.2-5.5 [facility] Basophils Auto (Bld) [#/Vol] Ordered By: Kallie Chang on 06-17-2022 Basophils (Bld) [#/Vol] 0.0 10*3/uL 0.0-0.2 [facility] Basophils/100 WBC Auto (Bld) Ordered By: Kallie Chang on 06-17-2022 Basophils/100 WBC (Bld) 0.7 % . [facility] Creatinine and Glomerular fi ltration rate.predicted panel (S/P/Bld)Ordered By: Kallie Chang on 06-17-2022 Creatinine [Mass/Vol] 0.66 mg/dL 0.44-1.03 [facility] Eosinophils Auto (Bld) [#/Vo l]Ordered By: Kallie Chang on 06-17-2022 Eosinophils (Bld) [#/Vol] 0.1 10*3/uL 0.0-0.45 [facility] Eosinophils/100 WBC Auto (Bl d)Ordered By: Kallie Chang on 06-17-2022 Eosinophils/100 WBC (Bld) 2.7 % . [facility] Erythrocyte distribution wid th Auto (RBC) [Ratio]Ordered By: Kallie Chang on 06-17-2022 Erythrocyte distribution width (RBC) [Ratio] 13.2 % 11.9-15.3 [facility] Estimated glomerular filtrat ion rate (GFR) non- AmericanOrdered By: Kallie Chang on 06-17-2022 GFR/1.73 sq M.predicted among non-blacks MDRD (S/P/Bld) [Vol rate/Area] > 60 mL/Min [facility] Globulin Calc (S) [Mass/Vol] Ordered By: Kallie Chang on 06-17-2022 Globulin (S) [Mass/Vol] 2.6 g/dL [facility] Hematocrit Auto (Bld) [Volum e fraction]Ordered By: Kallie Chang on 06-17-2022 Hematocrit (Bld) [Volume fraction] 32.8 % 34.0-46.4 [facility] Hemoglobin [Mass/volume] in BloodOrdered By: Kallie Chang on 06-17-2022 Hemoglobin (Bld) [Mass/Vol] 10.7 g/dL 11.8-15.4 [facility] Leukocytes [#/volume] correc annie for nucleated erythrocytes in Blood by Automated counOrdered By: Kallie Chang on 06-17-2022 WBC corrected for nucl RBC Auto (Bld) [#/Vol] 5.1 10*3/uL 3.8-11.6 [facility] Lymphocytes Auto (Bld) [#/Vo l]Ordered By: Kallie Chang on 06-17-2022 Lymphocytes (Bld) [#/Vol] 0.9 10*3/uL 1.00-4.8 [facility] Lymphocytes/100 WBC Auto (Bl d)Ordered By: Kallie Chang on 06-17-2022 Lymphocytes/100 WBC (Bld) 17.2 % . [facility] MCH Auto (RBC) [Entitic mass ]Ordered By: Kallie Chang on 06-17-2022 MCH (RBC) [Entitic mass] 29.5 pg 24.7-34.3 [facility] MCHC Auto (RBC) [Mass/Vol]Or dered By: Kallie Chang on 06-17-2022 MCHC (RBC) [Mass/Vol] 32.8 g/dL 32.0-35.0 [facility] MCV Auto (RBC) [Entitic vol] Ordered By: Kallie Chang on 06-17-2022 MCV (RBC) [Entitic vol] 90.0 fL 80-100 [facility] [facility] Auto (Bld) [#/Vol] Ordered By: Kallie Chang on 06-17-2022 Monocytes (Bld) [#/Vol] 0.5 10*3/uL 0.0-0.8 [facility] Monocytes/100 WBC Auto (Bld) Ordered By: Kallie Chang on 06-17-2022 Monocytes/100 WBC (Bld) 10.3 % . [facility] Neutrophils Auto (Bld) [#/Vo l]Ordered By: Kallie Chang on 06-17-2022 Neutrophils (Bld) [#/Vol] 3.5 10*3/uL 1.8-7.7 [facility] Neutrophils/100 WBC Auto (Bl d)Ordered By: Kallie Chang on 06-17-2022 Neutrophils/100 WBC (Bld) 69.1 % . [facility] No Panel InformationOrdered By: Kallie Chang on 06-17-2022 Adrenocorticotropic Hormone 8.2 pg/mL 7.2-63.3 [facility] Comment on above: ACTH reference inter ervin for samples collected between 7 and10 AM.Performed at: [facility] [address] [id number] Director: Red Sena PhD, Phone: [phone] Estimated GFR () > 60 mL/Min [facility] Comment on above: GFR estimated refere nce range: According to KDOQI guidelines, <60 ml/min/1.73m2 is sufficient to diagnose a patient with chronic kidney disease. Pharmacy Creatinine Clearance (Chem 110.52 [facility] Nucleated erythrocytes [Pres ence] in Blood by Automated countOrdered By: Kallie Chang on 06-17-2022 Nucleated RBC Auto Ql (Bld) 0.0 /100{WBC} 0-0.5 [facility] Platelet mean volume Auto (B ld) [Entitic vol]Ordered By: Kallie Chang on 06-17-2022 Platelet mean volume (Bld) [Entitic vol] 7.2 fL 6.3-10.7 [facility] Platelets Auto (Bld) [#/Vol] Ordered By: Kallie Chang on 06-17-2022 Platelets (Bld) [#/Vol] 241 10*3/uL 150-450 [facility] Protein [Mass/volume] in Ser um or PlasmaOrdered By: Kallie Chang on 06-17-2022 Protein [Mass/Vol] 6.2 g/dL 6.1-7.9 [facility] RBC Auto (Bld) [#/Vol]Ordere d By: Kallie Chang on 06-17-2022 RBC (Bld) [#/Vol] 3.64 10*6/uL 3.60-5.00 [facility] Random cortisol measurementO rdered By: Kallie Chang on 06-17-2022 Cortisol [Mass/Vol] 0.4 ug/dL [facility] Comment on above: Reference range: AM 6 - 24 ug/dl PM <10 ug/dl Serum or plasma alanine napoles otransferase measurement without P-5'-P (enzymatic activiOrdered By: Kallie Chang on 06-17-2022 ALT No additional P-5'-P [Catalytic activity/Vol] 34 U/L 1060 [facility] Serum or plasma albumin/glob ulin mass ratioOrdered By: Kallie Chang on 06-17-2022 Albumin/Globulin [Mass ratio] 1.4 {ratio} [facility] Serum or plasma alkaline zo sphatase measurement (enzymatic activity/volume)Ordered By: Kallie Chang on 06-17-2022 ALP [Catalytic activity/Vol] 82 U/L 32-92 [facility] Serum or plasma anion gap de terminationOrdered By: Kallie Chang on 06-17-2022 Anion gap [Moles/Vol] 11.1 mmol/L 6.0-15.0 [facility] Serum or plasma aspartate am inotransferase measurement (enzymatic activity/volume)Ordered By: Kallie Chang on 06-17-2022 AST [Catalytic activity/Vol] 36 U/L 10-42 [facility] Serum or plasma calcium daiana urement (mass/volume)Ordered By: Kallie Chang on 06-17-2022 Calcium [Mass/Vol] 9.5 mg/dL 8.2-10.2 [facility] Serum or plasma chloride lizett surement (moles/volume)Ordered By: Kallie Chang on 06-17-2022 Chloride [Moles/Vol] 101 mmol/L 95-114 [facility] Serum or plasma glucose daiana urement (mass/volume)Ordered By: Kallie Chang on 06-17-2022 Glucose [Mass/Vol] 94 mg/dL 70-100 [facility] Comment on above: ADA recommended refe rence rangeRandom Glucose Reference Range is dependent on time and content of last meal. Glucose of more than 200 mg/dL in a nonstressed, ambulatory subject supports the diagnosis of Diabetes Mellitus. Serum or plasma potassium me asurement (moles/volume)Ordered By: Kallie Chang on 06-17-2022 Potassium [Moles/Vol] 3.6 mmol/L 3.5-5.1 [facility] Serum or plasma sodium measu rement (moles/volume)Ordered By: Kallie Chang on 06-17-2022 Sodium [Moles/Vol] 133 mmol/L 136-146 [facility] Serum or plasma total biliru bin measurement (mass/volume)Ordered By: Kallie Chang on 06-17-2022 Bilirubin [Mass/Vol] 0.8 mg/dL 0.3-1.2 [facility] Serum or plasma total carbon dioxide measurement (moles/volume)Ordered By: Kallie Chang on 06-17-2022 CO2 [Moles/Vol] 24.5 mmol/L 22.0-30.0 [facility] Serum or plasma urea nitroge n measurement (mass/volume)Ordered By: Kallie Chang on 06-17-2022 Urea nitrogen [Mass/Vol] 7 mg/dL 9-23 [facility] TSH DL <= 0.005 mIU/L QnOrde red By: Kallie Chang on 06-17-2022 TSH Qn 2.66 m[IU]/L 0.45-5.33 [facility] Thyroxine (T4) free [Mass/vo lume] in Serum or PlasmaOrdered By: Kallie Chang on 06-17-2022 Free T4 [Mass/Vol] 0.43 ng/dL 0.61-1.12 [facility] WBC Auto (Bld) [#/Vol]Ordere d By: Kallie Chang on 06-17-2022 WBC (Bld) [#/Vol] 5.1 10*3/uL 3.8-11.6 [facility] - Hematology and Cell countsOrdered By: Kallie Bernardo on 05-27-2022 Nucleated RBC/100 WBC (Bld) [Ratio] 0.1 % 0-0.5 [facility] No Panel InformationOrdered By: Kallie Bernardo on 05-27-2022 Adrenocorticotropic Hormone 14.9 pg/mL 7.2-63.3 [facility] Comment on above: ACTH reference inter ervin for samples collected between 7 and10 AM.Performed at: [employer] [id number] Director: Red Sena PhD, Phone: [phone] HCG ( test) Cheryl bryan Ql (U)Ordered By: Stacie Thomas on 04-16-2022 HCG ( test) Ql (U) Negative [facility] PAP ACOG PANEL 2: 30 to 65on 04-16-2022 . . Normal [facility] Comment on above: Result Comment: Perf ormed at: WB Performed By: #### [id number] #### [facility] [address] [place] [address] Dr. Lilly Varner Age Gdln ACOG Testing 30-65 Normal [facility] Comment on above: Performed By: #### [id number] #### [facility] [address] [address] [address] Lilly Varner DIAGNOSIS: Comment Normal [facility] Comment on above: Result Comment: NEGA TIVE FOR INTRAEPITHELIAL LESION OR MALIGNANCY. THIS SPECIMEN WAS RESCREENED PART OF OUR ASSEM[employer]ER HYDRAULIC BACKHOE PROGRAM. Performed at: WB Performed By: #### [id number] #### [facility] [address] [place] [address] Dr. Lilly Varner HPV Aptima Positive Abnormal Negative [facility] Comment on above: Result Comment: This nucleic acid amplification test detects fourteen high-risk HPV types (16,18,31,33,35,39,45,51,52,56,58,59,66,68) without differentiation. Performed at: =G Performed By: #### [id number] #### [facility] [address] [place] [address] Dr. Lilly Varner HPV Genotype 16 Negative Normal Negative [facility] Comment on above: Result Comment: Perf ormed at: =G Performed By: #### [id number] #### [facility] [address] [place] [address] Dr. Lilly Varner HPV Genotype 18,45 Positive Abnormal Negative [facility] Comment on above: Result Comment: Perf ormed at: =G Performed By: #### [id number] #### [facility] [address] [place] [address] Dr. Lilly Varner Methodology: Comment Normal [facility] Comment on above: Result Comment: This liquid based ThinPrep(R) pap test was screened with the use of an image guided system. Performed at: WB Performed By: #### [id number] #### [facility] [address] [place] [address] Dr. Lilly Varner Note: Comment Normal [facility] Comment on above: Result Comment: The Pap smear is a screening test designed to aid in the detection of premalignant and malignant conditions of the uterine cervix. It is not a diagnostic procedure and should not be used as the sole means of detecting cervical cancer. Both false-positive and false-negative reports do occur. . Performed at: WB Performed By: #### [id number] #### [facility] [address] [place] [address] Dr. Lilly Varner Performed by: Comment Normal [facility] Comment on above: Result Comment: Nickie Ford, Real Estate Listing Consultant (ASCP) Performed at: WB Performed By: #### [id number] #### [facility] [address] [place] [address] Dr. Lilly Varner QC reviewed by: Comment Normal [facility] Comment on above: Result Comment: Dequan Plaza, Supervisory Real Estate Listing Consultant (ASCP) Performed at: WB Performed By: #### [id number] #### [facility] [address] [place] [address] Dr. Lilly Varner Specimen adequacy: Comment Normal [facility] Comment on above: Result Comment: Sati sfactory for evaluation. Endocervical and/or squamous metaplastic cells (endocervical component) are present. Performed at: WB Performed By: #### [id number] #### [facility] [address] [place] [address] Dr. Lilly Varner XR DEXA BONE DENSITYon [...] by: KRISTA ROBERTSON Date: 2022-04-14 17:25 Normal [facility] VIT D 25-OH LABCORPon 2021 Vitamin D, 25-Hydroxy 19.5 ng/mL Critically low 30.0-100.0 [facility] Comment on above: Result Comment: [place] min D deficiency has been defined by the [place] of Medicine and an Endocrine Society practice guideline as a level of serum 25-OH vitamin D less than 20 ng/mL (1,2). The Endocrine Society went on to further define vitamin D insufficiency as a level between 21 and 29 ng/mL (2). 1. IOM ([place] of Medicine). 2010. Dietary reference intakes for calcium and D. [place]: The National Academies Press. 2. Lorena MF, Art MEADOWS, Eleazar SPENCE, et al. Evaluation, treatment, and prevention of vitamin D deficiency: an Endocrine Society clinical practice guideline. JCEM. 2010; 96(7):1911-30. Performed By: #### V ITADLC #### [facility] [address] [address] [address] Lilly Varner CBC AUTO DIFFon 2022 BASO # 0.0 103/ul Normal 0.0-0.1 [facility] Comment on above: Performed By: #### C BC #### [facility] [address] [address] [address] Lilly Varner Basophils/100 WBC (Bld) 0.5 % Normal 0.2-2.0 [facility] Comment on above: Performed By: #### C BC #### [facility] [address] [address] [address] Lilly Varner EO # 0.5 103/ul Normal 0.0-0.7 [facility] Comment on above: Performed By: #### C BC #### [facility] [address] [place] [address] Dr. Lilly Varner Eosinophils/100 WBC (Bld) 6.4 % Normal 0.9-7.0 [facility] Comment on above: Performed By: #### C BC #### [facility] [address] [place] [address] Dr. Lilly Varner Erythrocyte distribution width (RBC) [Ratio] 13.0 % Normal 11.0-15.0 [facility] Comment on above: Performed By: #### C BC #### [facility] [address] [place] [address] Dr. Lilly Varner Hematocrit (Bld) [Volume fraction] 40.1 % Normal 36.0-48.0 [facility] Comment on above: Performed By: #### C BC #### [facility] [address] [place] [address] Dr. Lilly Varner Hemoglobin (Bld) [Mass/Vol] 12.7 g/dL Normal 12.0-16.0 [facility] Comment on above: Performed By: #### C BC #### [facility] [address] [place] [address] Dr. Lilly Varner IG # 0.04 10e3/ul Critically high 0.00-0.03 [facility] Comment on above: Performed By: #### C BC #### [facility] [address] [place] [address] Dr. Lilly Varner IG % 0.5 % Normal 0.0-0.5 [facility] Comment on above: Performed By: #### C BC #### [facility] [address] [place] [address] Dr. Lilly Varner LYMPH # 2.0 103/ul Normal 1.2-3.8 [facility] Comment on above: Performed By: #### C BC #### [facility] [address] [place] [address] Dr. Lilly Varner Lymphocytes/100 WBC (Bld) 24.3 % Normal 20.5-60.0 [facility] Comment on above: Performed By: #### C BC #### [facility] [address] [place] [address] Dr. Lilly Varner MANUAL DIFF REQ NO Normal [facility] Comment on above: Performed By: #### C BC #### [facility] [address] [place] [address] Dr. Lilly Varner MCH (RBC) [Entitic mass] 30.3 pg Normal 26.7-34.0 [facility] Comment on above: Performed By: #### C BC #### [facility] [address] [place] [address] Dr. Lilly Varner MCHC (RBC) [Mass/Vol] 31.7 g/dL Normal 29.9-35.2 [facility] Comment on above: Performed By: #### C BC #### [facility] [address] [place] [address] Dr. Lilly Varner MCV (RBC) [Entitic vol] 95.7 fL Normal 81.0-99.0 [facility] Comment on above: Performed By: #### C BC #### [facility] [address] [place] [address] Dr. Lilly Varner MONO # 0.5 103/ul Normal 0.3-0.8 [facility] Comment on above: Performed By: #### C BC #### [facility] [address] [address] [address] Lilly Varner Monocytes/100 WBC (Bld) 5.7 % Normal 1.7-12.0 [facility] Comment on above: Performed By: #### C BC #### [facility] [address] [place] [address] Dr. Lilly Varner NEUT # 5.1 103/ul Normal 1.4-6.5 [facility] Comment on above: Performed By: #### C BC #### [facility] [address] [place] [address] Dr. Lilly Varner Neutrophils/100 WBC (Bld) 62.6 % Normal 43.0-75.0 [facility] Comment on above: Performed By: #### C BC #### [facility] [address] [place] [address] Dr. Lilly Varner Platelet mean volume (Bld) [Entitic vol] 8.6 fL Critically low 9.5-13.5 [facility] Comment on above: Performed By: #### C BC #### [facility] [address] [place] [address] Dr. Lilly Varner PLT 279 103/ul Normal 150-450 [facility] Comment on above: Performed By: #### C BC #### [facility] [address] [place] [address] Dr. Lilly Varner RBC 4.19 106/ul Critically low 4.20-5.40 [facility] Comment on above: Performed By: #### C BC #### [facility] [address] [place] [address] Dr. Lilly Varnre WBC 8.2 103/ul Normal 4.0-11.0 [facility] Comment on above: Performed By: #### C BC #### [facility] [address] [place] [address] Dr. Lilly Varner GLYCOHEMOGLOBIN A1Con 2021 ADA RECOMMENDATION SEE BELOW Normal [facility] Comment on above: Result Comment: ADA RECOMMENDED LIMIT 4.0 - 6.0 ADA THERAPEUTIC TARGET < 7.0 ACTION SUGGESTED > 7.0 Performed By: #### A 1C ####[facility] [address] [place], [place] [address]XeDr. Lilly Varner Glucose [Mass/Vol] 128 mg/dL Normal [facility] Comment on above: Performed By: #### A 1C ####[facility] [address] [place], [place] [address]NrDr. Lilly Varner HbA1c (Bld) [Mass fraction] 6.1 % Normal 4.5-6.2 [facility] Comment on above: Performed By: #### A 1C ####[facility] [address] [place], [place] [address]GwDr. Lilly Varner LIPID PROFILEon 2022 CHOL-HDL RATIO NORM SEE BELOW Normal [facility] Comment on above: Result Comment: 3.3 - 4.4 LOW RISK 4.4 - 7.1 AVERAGE RISK 7.1 - 11.0 MODERATE RISK >11.0 HIGH RISK Performed By: #### C MP, TSH, LIPID #### [facility] [address] [address] [address] Lilly Varner Cholesterol [Mass/Vol] 291 mg/dL Critically high <=200 [facility] Comment on above: Performed By: #### C MP, TSH, LIPID #### [facility] [address] [address] [address] Lilly Varner Cholesterol in HDL [Mass/Vol] 60 mg/dL Normal 40-60 [facility] Comment on above: Performed By: #### C MP, TSH, LIPID #### [facility] [address] [address] [address] Lilly Varner Cholesterol in LDL [Mass/Vol] 209.6 mg/dL Normal [facility] Comment on above: Performed By: #### C MP, TSH, LIPID #### [facility] [address] [address] [address] Lilly Varner Cholesterol.total/Cholest caro in HDL [Mass ratio] 4.9 {ratio} Normal [facility] Comment on above: Performed By: #### C MP, TSH, LIPID #### [facility] [address] [address] [address] Lilly Varner HDL NORMAL > or = 60 mg/dl - LO W CARDIOVASCULAR RISK <40 mg/dl - HIGH CARDIOVASCULAR RISK Normal [facility] Comment on above: Performed By: #### C MP, TSH, LIPID #### [facility] [address] [address] [address] Lilly Varner LDL CALC NORMAL SEE BELOW Normal [facility] Comment on above: Result Comment: <100 mg/dl OPTIMAL 100 - 129 mg/dl NEAR OR ABOVE OPTIMAL 130 - 159 mg/dl BORDERLINE HIGH 160 - 189 mg/dl HIGH >190 mg/dl VERY HIGH Performed By: #### C MP, TSH, LIPID #### [facility] [address] [address] [address] Lilly Varner Triglyceride [Mass/Vol] 107 mg/dL Normal <=150 [facility] Comment on above: Performed By: #### C MP, TSH, LIPID #### [facility] [address] [address] [address] Lilly Varner VLDL CALC 21.4 mg/dL Normal [facility] Comment on above: Performed By: #### C MP, TSH, LIPID #### [facility] [address] [address] [address] Lilly Varner PROF 14(COMP METB)on 022 Albumin [Mass/Vol] 3.9 g/dL Normal 3.4-5.0 [facility] Comment on above: Performed By: #### C MP, TSH, LIPID #### [facility] [address] [address] [address] Lilly Varner Albumin/Globulin [Mass ratio] 1.1 {ratio} Normal [facility] Comment on above: Performed By: #### C MP, TSH, LIPID #### [facility] [address] [address] [address] Lilly Varner ALP [Catalytic activity/Vol] 103 U/L Normal 46-116 [facility] Comment on above: Performed By: #### C MP, TSH, LIPID #### [facility] [address] [address] [address] Lilly Varner ALT [Catalytic activity/Vol] 44 U/L Normal 14-59 [facility] Comment on above: Performed By: #### C MP, TSH, LIPID #### [facility] [address] [place] [address] Dr. Lilly Varner Anion gap [Moles/Vol] 12.7 mmol/L Normal [facility] Comment on above: Performed By: #### C MP, TSH, LIPID #### [facility] [address] [place] [address] Dr. Lilly Varner AST [Catalytic activity/Vol] 24 U/L Normal 15-37 [facility] Comment on above: Performed By: #### C MP, TSH, LIPID #### [facility] [address] [place] [address] Dr. Lilly Varner Bilirubin [Mass/Vol] 0.4 mg/dL Normal 0.2-1.0 [facility] Comment on above: Performed By: #### C MP, TSH, LIPID #### [facility] [address] [place] [address] Dr. Lilly Varner Calcium [Mass/Vol] 9.1 mg/dL Normal 8.5-10.1 [facility] Comment on above: Performed By: #### C MP, TSH, LIPID #### [facility] [address] [place] [address] Dr. Lilly Varner Chloride [Moles/Vol] 104 mmol/L Normal 98-107 [facility] Comment on above: Performed By: #### C MP, TSH, LIPID #### [facility] [address] [place] [address] Dr. Lilly Varner CO2 [Moles/Vol] 28.4 mmol/L Normal 21.0-32.0 [facility] Comment on above: Performed By: #### C MP, TSH, LIPID #### [facility] [address] [place] [address] Dr. Lilly Varner Creatinine [Mass/Vol] 0.75 mg/dL Normal 0.55-1.02 [facility] Comment on above: Performed By: #### C MP, TSH, LIPID #### [facility] [address] [place], [place] [id number] Dr. Lilly Varner EGFR-AF ETHIOPIAN >60 Normal >=60 [facility] Comment on above: Performed By: #### C MP, TSH, LIPID #### [facility] [address] [place] [address] Dr. Lilly Varner EGFR-NON AF ETHIOPIAN >60 Normal >=60 [facility] Comment on above: Performed By: #### C MP, TSH, LIPID #### [facility] [address] [place] [address] Dr. Lilly Varner Globulin (S) [Mass/Vol] 3.7 g/dL Normal [facility] Comment on above: Performed By: #### C MP, TSH, LIPID #### [facility] [address] [place] [address] Dr. Lilly Varner Glucose [Mass/Vol] 98 mg/dL Normal 74-106 [facility] Comment on above: Performed By: #### C MP, TSH, LIPID #### [facility] [address] [place] [address] Dr. Lilly Varner Potassium [Moles/Vol] 4.1 mmol/L Normal 3.5-5.1 [facility] Comment on above: Performed By: #### C MP, TSH, LIPID #### [facility] [address] [place] [address] Dr. Lilly Varner Protein [Mass/Vol] 7.6 g/dL Normal 6.4-8.2 [facility] Comment on above: Performed By: #### C MP, TSH, LIPID #### [facility] [address] [place] [address] Dr. Lilly Varner Sodium [Moles/Vol] 141 mmol/L Normal 136-145 [facility] Comment on above: Performed By: #### C MP, TSH, LIPID #### [facility] [address] [place] [address] Dr. Lilly Varner Urea nitrogen [Mass/Vol] 16.0 mg/dL Normal 7.0-18.0 [facility] Comment on above: Performed By: #### C MP, TSH, LIPID #### [facility] [address] [place], [place] [address] Dr. Lilly Varner Urea nitrogen/Creatinine [Mass ratio] 21.3 mg/mg Normal [facility] Comment on above: Performed By: #### C MP, TSH, LIPID #### [facility] [address] [place], [place] [address] Dr. Lilly Varner TSHon 2022 TSH 1.280 uIU/mL Normal 0.358-3.74 0 [facility] Comment on above: Performed By: #### C MP, TSH, LIPID #### [facility] [address] [place], [place] [address] Dr. Lilly Varner Covid-19 PCR (CVDTBH)on 02-17 SARS-CoV-2 (COVID-19) RNA SHILPI+probe Ql (Unsp spec) Detected Critically abnormal NOT DETECTED [facility] Comment on above: Result Comment: This test is not yet approved or cleared by the [place] FDA. When there are no FDA-approved or cleared tests available, and other criteria are met, FDA can make tests available under an emergency access mechanism called an Emergency Use Authorization (EUA). The EUA for this test is supported by the Morale Officer of Health and Human Service's declaration that [...] longer be used). Performed By: #### C VDTBH #### [facility] [address] [place], [place] [address] Dr. Lilly Varner Surgical Pathologyon 022 Surgical Pathology (NOTE) -- Diagnosis -- RIGHT BREAST, 6:00, ULTRASOUND-GUIDED BIOPSY: -INVASIVE CARCINOMA OF NO SPECIAL TYPE (DUCTAL), POORLY DIFFERENTIATED, ER NEGATIVE, IN NEGATIVE. SEE COMMENT. -- Diagnosis Comment -- By report HER2 IHC is negative (1+). Krista Coto M.D. Electronically Signed Out 02/19/2022 Clinical Information Operative Findings: RIGHT BREAST 6:00 MASS AND CALCIFICATIONS Operation Performed: US GUIDED CORE BIOPSY OF BREAST Source of Specimen A: OUTSIDE SLIDES Gross Description Received from [facility] Department of Pathology are 6 slides labelled, [id number], WALLACEALICIA TENISHA, for consultation at the request of Dr. [...] 1410 OUTSIDE CONSULTATION Patient Name: TENISHA HANCOCK [facility] Rec: [id number] Path Number: [id number] [facility] [place] CONSULTING PATHOLOGISTS [facility] ANATOMIC PATHOLOGY [address] [place] [address]. [place], [place] [address] Normal [facility] Comment on above: Performed By: #### P PPVOC #### [facility] Andela [address] [id number] Machinist Mate: Rico Melo MD [facility] BREAST SPECIMENon 2021 [facility] BREAST SPECIMEN EXAMINATION: SPECIMEN RADIOGRAPH 02/17/2022 TECHNIQUE: [...] Gage Eng MD 02/17/22 Final result Normal [facility] Specimen radiograph demonstrates inclusion of the targeted microcalcifications and biopsy clip Findings discussed with Dr. Murguia in person at 12:55pm on 02/17/2022 [facility] RIS CONSOLIDATED EXAMINATION: SPECIMEN RADIOGRAPH 02/17/2022 TECHNIQUE: Single [...] coordinates are A3. Wire tip is intact. [facility] RIS CONSOLIDATED CORKY WELCH [email or web address] Work Phone: Radiology Study observation (narrative) [employer] Phone: WILLIE NEEDLE BREAST LOCALIZATI ON RIGHTon [...] Gage Eng MD 02/17/22 Final result Normal [facility] WILLIE NEEDLE LOCALIZATION [facility] 02-17-2022 Mammographic wire localization of biopsy clip and associated microcalcifications, as described. No residual mammographic mass. [facility] RIS CONSOLIDATED EXAMINATION: MAMMOGRAPHIC GUIDED NEEDLE LOCALIZATION [...] the wire. No significant residual mammographic mass. [facility] CONSOLIDATED Radiology Study observation (narrative) [email or web address] Work Phone: WILLIE NEEDLE LOCALIZATION RIGH TOrdered By: Gage Eng on 02-17-2022 [facility] Phone: NM LYMPHOSCINTIGRAMon 2021 NM LYMPHOSCINTIGRAM EXAMINATION: [...] Gage Eng MD 02/17/22 Final result Normal [facility] Prompt identificatio n of sentinel lymph node in the right axilla. [facility] CONSOLIDATED EXAMINATION: LYMPHOSCINTIGRAPHY (INJECTION AND IMAGES) 02/17/2022 9:24 [...] ?->No Reason for Exam: Right Breast CA [facility] Gage Eng MD - 02/17/2022 EXAMINATION: LYMPHOSCINTIGRAPHY [...] sentinel lymph node in the right axilla. [employer] Phone: Radiology Study observation (narrative) [employer] Phone: NM LYMPHOSCINTIGRAMOrdered B y: Gage Eng on 02-17-2022 [employer] Phone: Surgical Pathologyon 022 Surgical Pathology (NOTE) -- Diagnosis -- A. RIGHT AXILLARY SENTINEL LYMPH NODES, EXCISIONAL BIOPSIES: - NEGATIVE FOR MALIGNANCY (0/5). B. 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 ([facility], 02/17/22) Microscopic Description A, B. [...] sentinel lymp (more content not included)... Normal [facility] Comment on above: Performed By: #### P PPVS #### [facility] Andela [address] [place] [address] Machinist Mate: Rico Melo MD MRI BREAST BILATERAL W [...] right mammogram of 22 April 2021 from [facility]. Other right mammogram of June 2021 at an outside facility is not available. HISTORY: ORDERING SYSTEM PROVIDED HISTORY: Malignant neoplasm of right female breast, unspecified estrogen receptor status, unspecified site of breast (HCC) TECHNOLOGIST PROVIDED HISTORY: STAT Creatinine as needed:->Yes Last MRI done at [facility] in [place]. Result scanned in Media Reason for Exam: Last MRI done at [facility] in [place]. Result scanned in Media , Malign Additional signs and symptoms: Last MRI done at [facility] in [place]. Result scanned in Media , Malignant neoplasm [...] - KNOWN BIOPSY PROVEN MALIGNANCY. Interpreted by: Heber Fofana MD Signed by: Heber Fofana MD 02/04/22 Final result Normal [facility] 1. Area of 9 x 6 mm [...] OVERALL ASSESSMENT - KNOWN BIOPSY PROVEN MALIGNANCY. [facility] RIS CONSOLIDATED EXAMINATION: MRI OF THE BILATERAL [...] right mammogram of 22 April 2021 from [facility]. Other right mammogram of June 2021 at an outside facility is not available. HISTORY: ORDERING SYSTEM PROVIDED HISTORY: Malignant neoplasm of right female breast, unspecified estrogen receptor status, unspecified site of breast (HCC) TECHNOLOGIST PROVIDED HISTORY: STAT Creatinine as needed:->Yes Last MRI done at [facility] in [place]. Result scanned in Media Reason for Exam: Last MRI done at [facility] in [place]. Result scanned in Media , Malign Additional signs and symptoms: Last MRI done at [facility] in [place]. Result scanned in Media , Malignant neoplasm [...] abnormal signal intensity or contrast enhancement noted. [facility] CONSOLIDATED Radiology Study observation (narrative) [employer] Phone: MRI BREAST BILATERAL W WO CO NTRASTOrdered By: Heber Fofana on 02-04-2022 Interpretation and review of laboratory results Abnormal [employer] Phone: [employer] Phone: Aamir 01-29-2022 CNPN Telephone (BRSocialChorusAV) TENISHA HANCOCK ([id number]) 1975 F DEF Date Time Provider Department [...] Encounter Status:Closed by NAT RICKETTS on 02/02/22 Normal [facility] CNOVon 01-15-2022 CNOV Office Visit (PLASMN ) TENISHA HANCOCK ([id number]) 1975 F DEF Date Time Provider Department 01/15/22 4:00 PM FAHAD RUSSELL PLASMN During your visit today, we recorded the [...] breast in May 2021. Dr. Reza in [place] is her breast surgeon. 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 Tenisha Hancock was given supplemental information on [...] Past Histories independently gathered by the clinical technical support professional and the remaining scribed note accurately describes my personal service to the patient. patient's condition reviewed and examined ? plan and options of management, complexity, risk benefit limitation potential complication, success /failure of management, expected result and recovery discussed ? I spent 30 minutes in the visit, with more than 50% of the total [id number] time of the visit in counseling / [...] Problem Li (more content not included)... Normal [facility] Aamir 01-15-2022 CNPN Telephone (BRCRAV) TENISHA HANCOCK ([id number]) 1975 F DEF Date Time Provider Department 01/15/22 XIOMARA LEA During your visit today, we recorded the following information about you: Nat Ricketts, [place] 01/15/2022 4:43 PM Signed Patient was seen [...] been, she has had studies at both [facility] and [facility]. I was able to have patient get a release and will also fax to [facility] what she has thus far. Our office will continue to work on getting all outside records to be submitted for a second review. Alvin Alexis 01/16/2022 1:25 PM Signed Pt calling regarding faxed info she had sent to [employer]. Pt asking if fax was received by office or if she needs to do anything else. Pt requesting call back to discuss. Lucinda Alvarez Dorothy 01/16/2022 3:53 PM Signed Noted I will check when in [place] on Wednesday. Marybel Watson 01/22/2022 9:54 AM [...] 1:20 PM Signed Imaging reports rec'd reviewed: Leigh 04/2021 - [...] I see a teaching note 06/23/21 at [facility] but limited documentation since then as to her treatments, etc. I need path to be reviewed, pt will likely need updated imaging, can start with bilat diagnostic mammogram, perhaps can see me with same day imaging at ? Perhaps combine slots for her at 2:00 Tuesday 01/30? Thanks, MD Nat Louis, [place] 01/22/2022 2:07 PM Signed Left message on answering machine with my name and number and to call back to offer appointment Tuesday 01/30 at 1:[address] Lea. She will need imaging prior to that appt and we will call with arrival time for that 01/23 Sarah Lima 01/22/2022 3:14 PM Signed Patient called back, she left detailed message on voicemail to return her call at [phone]. Thank you. Nat Ricketts RN 01/22/2022 3:49 [...] for 60 min new cancer consult at [facility] Patient Cell Operation Supervisor 01/23/2022 9:57 AM Signed Pt scheduled Lucinda Alvarez Ma 01/23/2022 10:40 AM Signed Still have not received all records, I spoke to patient today and asked that she help expedite getting her pathology reports and slides from [place] along with all her images and reports, we also need all the workup done at [facility] and [place]. I provided [place] fax number and patient advised she will help me gather all her records. Lucinda Alvarez Ma 01/27/2022 10:00 AM Signed We still have not received path slides as of today. I called and LMOM for Jillian whom is the director of [facility] lab department to get an [...] 01/27/2022 10:34 AM Signed Jillian called from [place] she advised she will work on getting all slides sent to [facility]. Lucinda Alvarez Ma 01/28/2022 9:41 AM Signed Addended by: LUCINDA RED MA on: 01/28/2022 09:41 AM Modules accepted: Orders Allergies As of Date: 01/15/2022 (No Known Allergies) Date Reviewed: 01/15/2022 Reviewed by: Diamond Gibson - Fully Assessed Reason for Visit: Appointment [186] Order(s):OUTSIDE SURG PATH SLIDE REVIEW [[id number]] Order #: [id number] Prescriptions as of 01/28/2022 - citalopram (CELEXA) 20 mg tablet Take 20 mg (more content not included)... Normal [facility] Basophils Auto (Bld) [#/Vol] Ordered By: Kallie Chang on 12-24-2021 Basophils (Bld) [#/Vol] 0.0 10*3/uL 0.0-0.2 [facility] Basophils/100 WBC Auto (Bld) Ordered By: Kallie Chang on 12-24-2021 Basophils/100 WBC (Bld) 0.3 % . [facility] Blood hemoglobin measurement (mass/volume)Ordered By: Kallie Chang on 12-24-2021 Hemoglobin (Bld) [Mass/Vol] 10.3 g/dL 11.8-15.4 [facility] Blood leukocytes automated c ount (number/volume)Ordered By: Kallie Chang on 12-24-2021 WBC (Bld) [#/Vol] 5.8 10*3/uL 4.5-11.0 [facility] Body fluid albumin measureme nt (mass/volume)Ordered By: Kallie Chang on 12-24-2021 Albumin (Body fld) [Mass/Vol] 3.8 g/dL 3.2-5.5 [facility] Creatinine and Glomerular fi ltration rate.predicted panel (S/P/Bld)Ordered By: Kallie Chang on 12-24-2021 Creatinine [Mass/Vol] 0.66 mg/dL 0.44-1.03 [facility] Eosinophils Auto (Bld) [#/Vo l]Ordered By: Kallie Chang on 12-24-2021 Eosinophils (Bld) [#/Vol] 0.1 10*3/uL 0.0-0.45 [facility] Eosinophils/100 WBC Auto (Bl d)Ordered By: Kallie Chang on 12-24-2021 Eosinophils/100 WBC (Bld) 0.9 % . [facility] Erythrocyte distribution wid th Auto (RBC) [Ratio]Ordered By: Kallie Chang on 12-24-2021 Erythrocyte distribution width (RBC) [Ratio] 13.9 % 11.9-15.3 [facility] Estimated glomerular filtrat ion rate (GFR) non- AmericanOrdered By: Kallie Chang on 12-24-2021 GFR/1.73 sq M.predicted among non-blacks MDRD (S/P/Bld) [Vol rate/Area] > 60 mL/Min [facility] Globulin Calc (S) [Mass/Vol] Ordered By: Kallie Chang on 12-24-2021 Globulin (S) [Mass/Vol] 3.0 g/dL [facility] Hematocrit Auto (Bld) [Volum e fraction]Ordered By: Kallie Chang on 12-24-2021 Hematocrit (Bld) [Volume fraction] 30.4 % 34.0-46.4 [facility] Laboratory - Hematology and Cell countsOrdered By: Kallie Chang on 12-24-2021 Nucleated RBC/100 WBC (Bld) [Ratio] 0.0 % 0-0.5 [facility] Lymphocytes Auto (Bld) [#/Vo l]Ordered By: Kallie Chang on 12-24-2021 Lymphocytes (Bld) [#/Vol] 1.2 10*3/uL 1.00-4.8 [facility] Lymphocytes/100 WBC Auto (Bl d)Ordered By: Kallie Chang on 12-24-2021 Lymphocytes/100 WBC (Bld) 21.5 % . [facility] MCH Auto (RBC) [Entitic mass ]Ordered By: Kallie Chang on 12-24-2021 MCH (RBC) [Entitic mass] 34.6 pg 24.7-34.3 [facility] MCHC Auto (RBC) [Mass/Vol]Or dered By: Kallie Chang on 12-24-2021 MCHC (RBC) [Mass/Vol] 33.9 g/dL 32.0-35.0 [facility] MCV Auto (RBC) [Entitic vol] Ordered By: Kallie Chang on 12-24-2021 MCV (RBC) [Entitic vol] 102.2 fL 80-100 [facility] Macrocytes detectionOrdered By: Kallie Chang on 12-24-2021 Macrocytes Ql (Bld) Slight [facility] Monocytes Auto (Bld) [#/Vol] Ordered By: Kallie Chang on 12-24-2021 Monocytes (Bld) [#/Vol] 0.3 10*3/uL 0.0-0.8 [facility] Monocytes/100 WBC Auto (Bld) Ordered By: Kallie Chang on 12-24-2021 Monocytes/100 WBC (Bld) 5.5 % . [facility] Neutrophils Auto (Bld) [#/Vo l]Ordered By: Kallie Chang on 12-24-2021 Neutrophils (Bld) [#/Vol] 4.1 10*3/uL 1.8-7.7 [facility] Neutrophils/100 WBC Auto (Bl d)Ordered By: Kallie Chang on 12-24-2021 Neutrophils/100 WBC (Bld) 71.8 % . [facility] No Panel InformationOrdered By: Kallie Chang on 12-24-2021 Estimated GFR () > 60 mL/Min [facility] Comment on above: GFR estimated refere nce range: According to KDOQI guidelines, <60 ml/min/1.73m2 is sufficient to diagnose a patient with chronic kidney disease. Pharmacy Creatinine Clearance (Chem 115.02 [facility] Platelet Estimate Normal Normal [facility] Platelet Morphology Comment Normal Normal [facility] Poikilocytosis Slight [facility] Ovalocyte detectionOrdered B y: Kallie Chang on 12-24-2021 Ovalocytes LM Ql (Bld) Slight [facility] Plate[facility] mean volume Auto (B ld) [Entitic vol]Ordered By: Kallie Chang on 12-24-2021 Platelet mean volume (Bld) [Entitic vol] 8.0 fL 6.3-10.7 [facility] Platelets Auto (Bld) [#/Vol] Ordered By: Kallie Chang on 12-24-2021 Platelets (Bld) [#/Vol] 207 10*3/uL 150-450 [facility] Protein [Mass/volume] in Ser um or PlasmaOrdered By: Kallie Chang on 12-24-2021 Protein [Mass/Vol] 6.8 g/dL 6.1-7.9 [facility] RBC Auto (Bld) [#/Vol]Ordere d By: Kallie Chang on 12-24-2021 RBC (Bld) [#/Vol] 2.98 10*6/uL 3.60-5.00 [facility] RBC morphologyOrdered By: Precious coty Bernardo on 12-24-2021 RBC morphology finding Nom (Bld) N/A [facility] Serum or plasma alanine napoles otransferase measurement without P-5'-P (enzymatic activiOrdered By: Kallie Chang on 12-24-2021 ALT No additional P-5'-P [Catalytic activity/Vol] 20 U/L 10-60 [facility] Serum or plasma albumin/glob ulin mass ratioOrdered By: Kallie Chang on 12-24-2021 Albumin/Globulin [Mass ratio] 1.3 {ratio} [facility] Serum or plasma alkaline zo sphatase measurement (enzymatic activity/volume)Ordered By: Kallie Chang on 12-24-2021 ALP [Catalytic activity/Vol] 112 U/L 32-92 [facility] Serum or plasma aspartate am inotransferase measurement (enzymatic activity/volume)Ordered By: Kallie Chang on 12-24-2021 AST [Catalytic activity/Vol] 17 U/L 10-42 [facility] Serum or plasma calcium daiana urement (mass/volume)Ordered By: Kallie Chang on 12-24-2021 Calcium [Mass/Vol] 9.6 mg/dL 8.2-10.2 [facility] Serum or plasma chloride lizett surement (moles/volume)Ordered By: Kallie Chang on 12-24-2021 Chloride [Moles/Vol] 98 mmol/L 95-114 [facility] Serum or plasma glucose daiana urement (mass/volume)Ordered By: Kallie Chang on 12-24-2021 Glucose [Mass/Vol] 119 mg/dL 70-100 [facility] Comment on above: ADA recommended refe [...] on 12-24-2021 Potassium [Moles/Vol] 4.0 mmol/L 3.5-5.1 [facility] Serum or plasma sodium measu rement (moles/volume)Ordered By: Kallie Chang on 12-24-2021 Sodium [Moles/Vol] 134 mmol/L 136-146 [facility] Serum or plasma total biliru bin measurement (mass/volume)Ordered By: Kallie Chang on 12-24-2021 Bilirubin [Mass/Vol] 0.5 mg/dL 0.3-1.2 [facility] Serum or plasma total carbon dioxide measurement (moles/volume)Ordered By: Kallie Chang on 12-24-2021 CO2 [Moles/Vol] 23.2 mmol/L 22.0-30.0 [facility] Serum or plasma urea nitroge n measurement (mass/volume)Ordered By: Kallie Chang on 12-24-2021 Urea nitrogen [Mass/Vol] 7 mg/dL 9-23 [facility] CNPNon 12-19-2021 CNPN Telephone (DPQ) TENISHA HANCOCK ([id number]) 1975 F Date Time Provider Department 12/19/21 FAHAD RUSSELL DPQ During your visit today, we recorded the following information about you: Alfredo Teague Pss 12/19/2021 10:46 AM Signed I was unable [...] Status:Closed by ALFREDO ORTEGA on 12/19/21 Normal [facility] No Panel InformationOrdered By: Kallie Chang on 12-16-2021 Adrenocorticotropic Hormone 31.0 pg/mL 7.2-63.3 [facility] Comment on above: ACTH reference inter ervin for samples collected between 7 and 10 AM. Performed at: [facility] [employer] [id number] Machinist Mate: Red Sena PhD, Phone: [phone] ACTH reference inter ervin for samples collected between 7 and10 AM.Performed at: [employer] [id number] Director: Red Sena PhD, Phone: [phone] Random cortisol measurementO rdered By: Kallie Chang on 12-16-2021 Cortisol [Mass/Vol] 7.2 ug/dL [facility] Comment on above: Reference range: AM 6 - 24 ug/dl PM <10 ug/dl Reference range: AM 6 - 24 ug/dl PM <10 ug/dl TSH DL <= 0.005 mIU/L QnOrde red By: Kallie Chang on 12-16-2021 TSH Qn 0.08 m[IU]/L 0.45-5.33 [facility] Thyroxine (T4) free [Mass/vo lume] in Serum or PlasmaOrdered By: Kallie Chang on 12-16-2021 Free T4 [Mass/Vol] 0.74 ng/dL 0.61-1.12 [facility] No Panel InformationOrdered By: Kallie Chang on 12-02-2021 Dohle Bodies Slight [facility] Teardrop cell detectionOrder ed By: Kallie Chang on 12-02-2021 Dacrocytes LM Ql (Bld) Slight [facility] Toxic leukocyte granulation detectionOrdered By: Kallie Chang on 12-02-2021 Toxic granules LM Ql (Bld) [facility] Basophils/100 WBC Auto (Bld) Ordered By: Kallie Chang on 11-04-2021 Basophils/100 WBC (Bld) 1 % 0-2 [facility] Blood anisocytosis detection Ordered By: Kallie Chang on 11-04-2021 Anisocytosis Ql (Bld) Moderate [facility] Blood polychromasia detectio n by light microscopyOrdered By: Kallie Chang on 11-04-2021 Polychromasia LM Ql (Bld) Slight [facility] Erythrocyte basophilic stipp ling detectionOrdered By: Kallie Chagn on 11-04-2021 Basophilic stippling LM Ql (Bld) Rare [facility] Laboratory - Hematology and Cell countsOrdered By: Kallie Chang on 11-04-2021 Band form neutrophils/100 WBC (Bld) 1 % 0-5 [facility] Lymphocytes/100 WBC Auto (Bl d)Ordered By: Kallie Chang on 11-04-2021 Lymphocytes/100 WBC (Bld) 25 % 18-42 [facility] Monocytes/100 WBC Manual cnt (Bld)Ordered By: Kallie Chang on 11-04-2021 Monocytes/100 WBC (Bld) 6 % 2-11 [facility] Myelocytes/100 WBC Manual cn t (Bld)Ordered By: Kallie Chang on 11-04-2021 Myelocytes/100 WBC (Bld) 3 % 0-0 [facility] No Panel InformationOrdered By: Kallie Chang on 11-04-2021 Rouleau Slight [facility] Segmented neutrophils/100 WB C Manual cnt (Bld)Ordered By: Kallie Chang on 11-04-2021 Segmented neutrophils/100 WBC (Bld) 64 % 50-70 [facility] Otheron 06-06-1998 CONVERTED ELECTRONIC SIGNATURE PATI CARTAGENA, SUPERVISORY STAFF DESIGN ENGINEER (Electronic signature on file) Final Signed Out: 06/06/1998 15:39 [facility] CONVERTED FINAL DIAGNOSIS SPECIMEN ADEQU ACY SATISFACTORY FOR EVALUATION GENERAL CATEGORIZATION BENIGN CELLULAR CHANGES DESCRIPTIVE DIAGNOSIS FUNGAL ORGANISMS MORPHOLOGICALLY CONSISTENT WITH JUAN CARLOS SPECIES. INFLAMMATORY CELL CHANGES. HORMONAL EVALUATION HORMONAL PATTERN COMPATIBLE WITH AGE AND HISTORY [facility] CONVERTED ORDERING PROVIDER Ordering Provider: JAMARI HOYT [facility] CONVERTED PAP DISCLAIMER The Pap test se rves as a screening tool for early detection of cervical cancer. The Pap test does not represent a final diagnostic test for cervical cancer. Furthermore, the Pap test was not designed to screen for other malignancies (endometrial, ovarian cancer, etc....). False negatives and false positives have occurred. If clinically indicated, further patient evaluation is recommended. [facility] Vital Signs Date Time Vital Sign Value Performing Clinician Facility 11-03-2023 15:43-0400 Blood Pressure Location [facility] 11-03-2023 15:43-0400 Diastolic blood pressure 66 mm[Hg] [facility] 11-03-2023 15:43-0400 Heart rate 70 /min [facility] 11-03-2023 15:43-0400 Respiratory rate 16 /min [facility] 11-03-2023 15:43-0400 Systolic blood pressure 112 mm[Hg] [facility] 11-25-2022 14:42-0400 Body temperature 97.8 [degF] MD Eliel Hurd Work Phone: [facility] 11-25-2022 14:42-0400 Body weight 79.83 kg MD Eliel Hurd Work Phone: [facility] 11-25-2022 14:42-0400 Diastolic blood pressure 73 mm[Hg] MD Eliel Hurd Work Phone: [facility] 11-25-2022 14:42-0400 Heart rate 75 /min MD Eliel Hurd Work Phone: [facility] 11-25-2022 14:42-0400 Respiratory rate 16 /min MD Eliel Hurd Work Phone: [facility] 11-25-2022 14:42-0400 SaO2% (BldA) [Mass fraction] 97 % MD Eliel Hurd Work Phone: [facility] 11-25-2022 14:42-0400 Systolic blood pressure 109 mm[Hg] MD Eliel Hurd Work Phone: [facility] 09-18-2022 13:38-0500 Body temperature 98 [degF] MD Eliel Hurd Work Phone: [facility] 09-18-2022 13:38-0500 Body weight 80.4 kg MD Eliel Hurd Work Phone: [facility] 09-18-2022 13:38-0500 Diastolic blood pressure 78 mm[Hg] MD Eliel Hurd Work Phone: [facility] 09-18-2022 13:38-0500 Heart rate 77 /min MD Eliel Hurd Work Phone: [facility] 09-18-2022 13:38-0500 Respiratory rate 16 /min MD Eliel Hurd Work Phone: [facility] 09-18-2022 13:38-0500 SaO2% (BldA) [Mass fraction] 99 % MD Eliel Hurd Work Phone: [facility] 09-18-2022 13:38-0500 Systolic blood pressure 115 mm[Hg] MD Eliel Hurd Work Phone: [facility] 08-14-2022 14:08-0500 Body weight 79.6 kg MD Eliel Hurd Work Phone: [facility] 08-14-2022 14:08-0500 Diastolic blood pressure 68 mm[Hg] MD Eliel Hurd Work Phone: [facility] 08-14-2022 14:08-0500 Heart rate 72 /min MD Eliel Hurd Work Phone: [facility] 08-14-2022 14:08-0500 Respiratory rate 18 /min MD Eliel Hurd Work Phone: [facility] 08-14-2022 14:08-0500 SaO2% (BldA) [Mass fraction] 99 % MD Eliel Hurd Work Phone: [facility] 08-14-2022 14:08-0500 Systolic blood pressure 103 mm[Hg] MD Eliel Hurd Work Phone: [facility] 08-07-2022 13:06-0500 Body temperature 98 [degF] MD Eliel Hurd Work Phone: [facility] 08-06-2022 13:31-0500 Body temperature 97.8 [degF] MD Eliel Hurd Work Phone: [facility] 08-06-2022 13:31-0500 Body weight 76.1 kg MD Eliel Hurd Work Phone: [facility] 08-06-2022 13:31-0500 Diastolic blood pressure 78 mm[Hg] MD Eliel Hurd Work Phone: [facility] 08-06-2022 13:31-0500 Heart rate 60 /min MD Eliel Hurd Work Phone: [facility] 08-06-2022 13:31-0500 Respiratory rate 16 /min MD Eliel Hurd Work Phone: [facility] 08-06-2022 13:31-0500 SaO2% (BldA) [Mass fraction] 95 % MD Eliel Hurd Work Phone: [facility] 08-06-2022 13:31-0500 Systolic blood pressure 115 mm[Hg] MD Eliel Hurd Work Phone: [facility] 07-15-2022 13:06-0500 Body height 160.02 cm MD Eliel Hurd Work Phone: [facility] 07-15-2022 13:06-0500 Body temperature 97.5 [degF] MD Eliel Hurd Work Phone: [facility] 07-15-2022 13:06-0500 Body weight 75.3 kg MD Eliel Hurd Work Phone: [facility] 07-15-2022 13:06-0500 Diastolic blood pressure 61 mm[Hg] MD Eliel Hurd Work Phone: [facility] 07-15-2022 13:06-0500 Heart rate 80 /min MD Eliel Hurd Work Phone: [facility] 07-15-2022 13:06-0500 Respiratory rate 18 /min MD Eliel Hurd Work Phone: [facility] 07-15-2022 13:06-0500 SaO2% (BldA) [Mass fraction] 98 % MD Eliel Hurd Work Phone: [facility] 07-15-2022 13:06-0500 Systolic blood pressure 102 mm[Hg] MD Eliel Hurd Work Phone: [facility] 06-18-2022 10:07-0500 Body height 160.02 cm MD Eliel Hurd Work Phone: [facility] 06-18-2022 10:07-0500 Body temperature 98.4 [degF] MD Eliel Hurd Work Phone: [facility] 06-18-2022 10:07-0500 Body weight 78.9 kg MD Eliel Hurd Work Phone: [facility] 06-18-2022 10:07-0500 Diastolic blood pressure 80 mm[Hg] MD Eliel Hurd Work Phone: [facility] 06-18-2022 10:07-0500 Heart rate 84 /min MD Eliel Hurd Work Phone: [facility] 06-18-2022 10:07-0500 Respiratory rate 20 /min MD Eliel Hurd Work Phone: [facility] 06-18-2022 10:07-0500 SaO2% (BldA) [Mass fraction] 100 % MD Eliel Hurd Work Phone: [facility] 06-18-2022 10:07-0500 Systolic blood pressure 117 mm[Hg] MD Eliel Hurd Work Phone: [facility] 03-19-2022 10:00-0400 Body temperature 98.8 [degF] MD Eliel Hurd Work Phone: [facility] 03-19-2022 10:00-0400 Body weight 90.26 kg MD Eliel Hurd Work Phone: [facility] 03-19-2022 10:00-0400 Diastolic blood pressure 86 mm[Hg] MD Eliel Hurd Work Phone: [facility] 03-19-2022 10:00-0400 Heart rate 68 /min MD Eliel Hurd Work Phone: [facility] 03-19-2022 10:00-0400 Respiratory rate 18 /min MD Eliel Hrud Work Phone: [facility] 03-19-2022 10:00-0400 SaO2% (BldA) [Mass fraction] 98 % MD Eliel Hurd Work Phone: [facility] 03-19-2022 10:00-0400 Systolic blood pressure 125 mm[Hg] MD Eliel Hurd Work Phone: [facility] 02-17-2022 16:00-0400 Body temperature 97.5 [degF] Diana Cashen DO Work Phone: [facility] [employer] 02-17-2022 16:00-0400 Diastolic blood pressure 71 mm[Hg] Diana Cashen DO Work Phone: [facility] [employer] 02-17-2022 16:00-0400 Heart rate 101 /min Diana Cashen DO Work Phone: [facility] [employer] 02-17-2022 16:00-0400 Respiratory rate 23 /min Diana Cashen DO Work Phone: [facility] [employer] 02-17-2022 16:00-0400 SaO2% (BldA) [Mass fraction] 95 % Diana Cashen DO Work Phone: [facility] [employer] 02-17-2022 16:00-0400 Systolic blood pressure 134 mm[Hg] [facility]hen DO [facility] 02-17-2022 07:21-0400 Body height 160 cm Diana Murguia DO Work Phone: [facility] 02-17-2022 07:21-0400 Body mass index (BMI) [Ratio] 34.05 kg/m2 Diana Murguia DO Work Phone: [facility] 02-17-2022 07:21-0400 Body weight 87.18 kg Diana Murguia DO Work Phone[facility] 01-15-2022 15:34-0400 Body height 160 cm Fahad Russell MD Work Phone: [facility] 01-15-2022 15:34-0400 Body temperature 98.1 [degF] Fahad Russell MD Work Phone: [facility] 01-15-2022 15:34-0400 Body weight 87.59 kg Fahad Russell MD Work Phone: [facility] 01-15-2022 15:34-0400 Diastolic blood pressure 86 mm[Hg] Fahad Russell MD Work Phone: [facility] 01-15-2022 15:34-0400 Heart rate 72 /min Fahad Russell MD Work Phone: [facility] 01-15-2022 15:34-0400 Systolic blood pressure 149 mm[Hg] Fahad Russell MD Work Phone: [facility] 09-15-2021 15:45-0500 Body height 160.02 cm Franco Stokes Other [employer] Other 09-15-2021 15:45-0500 Body mass index (BMI) [Ratio] 34.36 kg/m2 Franco Stokes Other [employer] Other 09-15-2021 15:45-0500 Body weight 88 kg Franco Stokes Other [facility] [employer] Other 07-08-2021 14:14-0500 Body height 160.02 cm MD Eliel Hurd Work Phone: [facility] Encounters Encounter Date Encounter Type Care Provider Facility Start: 03-09-2024 End: 03-09-2024 ambulatory AWA Coty [facility] Start: 03-09-2024 End: 03-09-2024 ambulatory AWA Fabby [facility] Start: 02-03-2024 End: 02-03-2024 ambulatory JESUS NGUYỄN Not Available Start: 01-18-2024 End: 01-18-2024 ambulatory JESUS NGUYỄN Not Available Start: 01-13-2024 End: 01-13-2024 ambulatory SHAIKH PATRIA Not Available Start: 01-10-2024 End: 01-10-2024 Patient encounter procedure MD Shaikh España Work Phone: [facility] [place] Work Phone: Start: 01-10-2024 End: 01-10-2024 ambulatory MD Shaikh España Work Phone: [facility] Work Phone: Start: 01-03-2024 End: 01-03-2024 ambulatory JESUS NGUYỄN Not Available Start: 12-14-2023 End: 12-14-2023 ambulatory SHAIKH PATRIA Not Available Start: 11-03-2023 End: 11-03-2023 ambulatory Ismael BERMAN Facility:[facility] [place] Start: 11-03-2023 End: 11-03-2023 Patient encounter procedure Ismael BERMAN General Surgery [facility] Start: 11-01-2023 End: 11-01-2023 ambulatory SHAIKH PATRIA Not Available Start: 10-28-2023 End: 10-28-2023 ambulatory CASTILLO GONSALEZ Not Available Start: 10-11-2023 End: 10-11-2023 ambulatory CASTILLO GONSALEZ Not Available Start: 08-25-2023 Orders Only Shaikh Patria POZO Work Phone: [facility] Comment on above: Left wrist pain (Kesha heber Dx); Pain of left thumb Start: 06-23-2023 ambulatory SYDNIE ANABEL Facility : [place] Start: 05-04-2023 ambulatory SYDNIE ANABEL Facility : [place] Start: 04-07-2023 End: 04-07-2023 Patient encounter procedure MD Eliel Hurd Work Phone: [facility] [address] Work Phone: Start: 04-07-2023 End: 04-07-2023 ambulatory MD Eliel Hurd Work Phone: [facility] Work Phone: Start: 02-15-2023 End: 02-16-2023 ambulatory Booker Lizarraga MD Facility:[facility] [place] Start: 01-22-2023 ambulatory SYDNIE ANABEL Facility :[facility] [place] Start: 01-11-2023 End: 01-12-2023 ambulatory Booker Lizarraga MD Facility: [place] Start: 12-28-2022 ambulatory ANDRIUS GIEDRAGRETCHEN Faci lity:[facility] Start: 12-01-2022 ambulatory BRIEN B APLING Facility :[facility] Start: 11-25-2022 End: 11-25-2022 ambulatory MD Eliel Hurd Work Phone: [facility] Work Phone: Start: 11-25-2022 End: 11-25-2022 Registered Recurring MD Eliel Hurd Work Phone: [facility] Work Phone: Start: 09-18-2022 End: 09-18-2022 ambulatory MD Eliel Hurd Work Phone: [facility] Work Phone: Start: 09-18-2022 End: 09-18-2022 Registered Recurring MD Eliel Hurd Work Phone: [facility] Work Phone: Start: 08-14-2022 End: 08-14-2022 ambulatory MD Eliel Hurd Work Phone: [facility] Work Phone: Start: 08-14-2022 End: 08-14-2022 Registered Recurring MD Eliel Hurd Work Phone: [facility] Work Phone: Start: 08-06-2022 End: 08-06-2022 ambulatory MD Eliel Hurd Work Phone: [facility] Work Phone: Start: 08-06-2022 End: 08-06-2022 Registered Recurring MD Eliel Hurd Work Phone: [facility] Work Phone: Start: 07-23-[address] DOCTOR STRINGER Facility : Start: 07-22-2022 End: 07-22-2022 ambulatory MD Eliel Hurd Work Phone: [facility] Work Phone: Start: 07-22-2022 End: 07-22-2022 Registered Recurring MD Eliel Hurd Work Phone: [facility] Work Phone: Start: 06-19-2022 End: 06-19-2022 Patient encounter procedure MD Eliel Hurd Work Phone: [facility] [place] Work Phone: Start: 06-18-2022 End: 06-18-2022 ambulatory MD Eliel Hurd Work Phone: [facility] Work Phone: Start: 06-18-2022 End: 06-18-2022 Registered Recurring MD Eliel Hurd Work Phone: [facility] Start: 04-16-2022 End: 04-16-2022 ambulatory MD Eliel Hurd Work Phone: [facility] Work Phone: Start: 04-16-2022 End: 04-16-2022 Registered Recurring MD [facility] Start: 04-16-2022 End: 04-16-2022 Discharged Recurring MD Eliel Hurd Work Phone: [facility] Start: 04-14-2022 End: 04-15-[address] KRISTA ROBERTSON Facility:[facility] Start: 04-07-2022 End: 04-07-[address] CHIDI RINCON . Facility:[facility] Start: 04-05-2022 Encounter for genera l adult medical examination without abnormal findings DR ELIEL HURD . [facility] Start: 2022 End: 04-01-2022 Encounter for general adult medical examination without abnormal findings DR ELIEL HURD . Facility:[facility] Start: 2022 End: 04-01-[address] ELIEL HURD . Facility:[facility] Start: 03-20-2022 Registered Recurring MD Eliel rogers Work Phone: [facility] Start: 03-19-2022 End: 03-19-2022 Registered Recurring MD Eliel Hurd Work Phone: [facility] Start: 03-14-2022 End: 03-14-2022 ambulatory EARNEST HDZ Facility:[facility] Start: 03-12-2022 End: 03-12-2022 Registered Recurring MD Eliel Hurd [facility] Start: 02-18-2022 End: 02-19-2022 ambulatory [facility] Start: 02-17-2022 End: 02-20-2022 ambulatory DIANA [facility] Start: 02-17-2022 End: 02-17-2022 ambulatory DIANA MURGUIA [facility] Start: 02-17-2022 End: 02-19-2022 Subsequent hospital visit by physician Jackie Everett Room 1 [facility] Nuclear Medicine Comment on above: Malignant neoplasm o f right female breast, unspecified estrogen receptor status, unspecified site of breast (HCC) Start: 02-17-2022 End: 02-17-2022 Subsequent hospital visit by physician Diana Murguia DO Work Phone: [facility] Comment on above: Status post breast r econstruction (Primary Dx); Status post breast lumpectomy; Abnormal mammogram; Malignant neoplasm of right female breast, unspecified estrogen receptor status, unspecified site of breast (HCC) Start: 02-04-2022 End: 02-07-2022 ambulatory ELIEL Rouse HURD [facility] Start: 02-04-2022 End: 02-06-2022 Subsequent hospital visit by physician Lesly Su Mri [facility] MRI Comment on above: Malignant neoplasm o f right female breast, unspecified estrogen receptor status, unspecified site of breast (HCC) Start: 01-29-2022 Telephone encounter Xiomara tolliver MD Work Phone: [facility] Comment on above: Appointment Start: 01-15-2022 End: 01-15-2022 Patient encounter procedure Fahad Russell MD Work Phone: Plastic Surgery Comment on above: History of breast ca ncer (Primary Dx); Breast asymmetry following reconstructive surgery Start: 01-15-2022 Telephone encounter Xiomara tolliver MD Work Phone: [facility] Comment on above: Appointment Start: 09-15-2021 End: 09-15-2021 ambulatory Franco Stokes Other [facility] [employer] Other Start: 09-15-2021 Office outpatient ne w 30 minutes Franco Stokes [facility] Neurosurgery Start: 05-27-1998 End: 05-27-1998 Patient encounter procedure Conversion José Meyer [facility] Start: 05-27-1998 Results Only Conversion Beaker Ap [facility] Procedures Date Procedure Procedure Detail Performing Clinician Start: 06-19-2022 MRI of cervical spine without contrast MD Eliel Hurd Work Phone: Start: 04-07-2022 Microscopic observation [Identifier] in Cervix by Cyto stain Shaikh Patria POZO Work Phone: Start: 02-17-2022 Radiological examination surgical specimen Diana P Cashen DO Work Phone: Start: 02-17-2022 Lymphatics & lymph nodes imaging Diana P Cashen DO Work Phone: Start: 02-17-2022 Perq device placement breast loc 1st les w/gdnce Diana P Cashen DO Work Phone: Start: 02-04-2022 MRI w/o fol w/cont, breast, Diana P Cashen DO Work Phone: Start: 10-07-2021 MRI of bilateral breasts with contrast MD Eliel Hurd Work Phone: Start: 08-18-2021 MRI of lumbar spine with contrast MD Eliel Hurd Work Phone: Start: 08-18-2021 Plain X-ray of left hip MD Eliel Hurd Work Phone: Start: 07-16-2021 Computed tomography of abdomen and pelvis with contrast MD Eliel Hurd Work Phone: Start: 07-16-2021 CT of thorax with contrast MD Eliel Hurd Work Phone: Start: 04-22-2021 Mammography Xiomara Lea MD Work Phone: Start: 05-27-1998 CONVERTED CYTOLOGY LAPIDARIST Conversion José Ap Biopsy of breast Ismael MCGOWAN L Cholecystectomy Ismael MCGOWANL Decompression of med misael nerve Ismael BERMAN Endometrial ablation Ismael MCGOWANL Fasciotomy of foot Ismael GILES Hemorrhoidectomy Ismael Orellana History of mastectomy Status pos t breast lumpectomy Diana Murguia DO Work Phone: History of surgical procedure on cervical spine Ismael BERMAN Insertion of implant able venous access port Ismael BERMAN Ligation of fallopian tube Trish BERMAN Loop electrosurgical excision procedure Ismael BERMAN Lumpectomy of right breast M lisa BERMAN Mammoplasty Ismael BERMAN Plan of Treatment Date Care Activity Detail Author Start: 04-27-2028 Screening for malignant neoplasm of cervix [facility] Start: 04-07-2027 Screening for malignant neoplasm of cervix Pap Smear [facility] Start: 04-17-2024 End: 04-17-2024 Patient encounter procedure 04/17/2024 3:00 PM EDT Office Visit [facility] [address] [place] [id number] Chidi Rincon, DO [address] [place] [address] [facility] Start: 01-10-2024 MR Breast - bilateral [facility] Start: 01-10-2024 MRI of bilateral breasts with contrast MR breast BI wo/w con CAD [facility] Start: 08-25-2023 End: 08-25-2024 XR Hand - left 3 Views XR hand 3+ views left Imaging Routine Left wrist pain Pain of left thumb Expected: 08/25/2023, Expires: 08/25/2024 [facility] Comment on above: Expected: 08/25/2023, Expires: Start: 08-25-2023 End: 08-25-2024 XR Wrist - left 3 Views XR wrist 3+ views left Imaging Routine Left wrist pain Pain of left thumb Expected: 08/25/2023, Expires: 08/25/2024 [facility] Work Phone: Comment on above: Expected: 08/25/2023, Expires: Start: 04-07-2023 [facility] Start: 03-19-2023 Influenza vaccination Influenza Vaccine (#1) [facility] Start: 09-04-2022 End: 09-04-2022 [facility] Start: 09-03-2022 [facility] Start: 08-07-2022 [facility] Start: 08-05-2022 [facility] Start: 07-22-2022 Adrenocorticotropic hormone measurement [facility] Start: 07-22-2022 [facility] Start: 07-09-2022 [facility] Start: 06-19-2022 [facility] Start: 06-18-2022 [facility] Start: 06-17-2022 Adrenocorticotropic hormone measurement [facility] Start: 05-28-2022 [facility] Start: 04-22-2022 Mammography MAMMOGRAM [facility] Start: 03-20-2022 Registered Recurring Registered Recurring [facility] Start: 03-19-2022 Influenza vaccination [facility] Start: 03-04-2022 End: 03-04-2022 Patient encounter procedure 03/04/2022 Office Visit [place] [id number] [id number] [facility] Start: 03-04-2022 End: 03-04-2022 Patient encounter procedure 03/04/2022 Office Visit General Surgery Diana Murguia P, DO [address] [place] [address] [facility] Start: 02-17-2022 End: 02-17-2022 Mast modf rad w/ax lymph nod w/wo pect/gonzalo min BREAST MASTECTOMY RECONSTRUCTION Malignant neoplasm of right female breast, unspecified estrogen receptor status, unspecified site of breast (HCC) 02/17/2022 10:22 AM [facility] Start: 02-17-2022 End: 02-17-2022 Mastectomy partial BREAST LUMPECTOMY PARTIAL MASTECTOMY Malignant neoplasm of right female breast, unspecified estrogen receptor status, unspecified site of breast (HCC) 02/17/2022 10:22 AM [facility] Start: 02-09-2022 End: 02-09-2022 Patient encounter procedure 02/09/2022 Office Visit General Surgery Diana Murguia, DO [address] [place] [address] [facility] Start: 12-17-2021 [facility] Start: 11-26-2021 [facility] Start: 11-05-2021 [facility] Start: 10-15-2021 [facility] Start: 09-30-2021 [facility] Start: 09-24-2021 [facility] Start: 09-24-2021 [facility] Start: 09-17-2021 End: 09-17-2021 [facility] Start: 09-16-2021 End: 09-16-2021 [facility] Start: 09-11-2021 End: 09-11-2021 [facility] Start: 09-04-2021 [facility] Start: 08-27-2021 [facility] Start: 08-20-2021 [facility] Start: 08-14-2021 [facility] Start: 08-13-2021 End: 08-14-2021 [facility] Start: 07-30-2021 [facility] Start: 07-28-2021 [facility] Start: 07-21-2021 End: 07-22-2021 [facility] Start: 01-18-2021 COVID-19 VACCINE (3 - Booster for Moderna series) COVID-19 VACCINE (3 - Booster for Moderna series) [facility] Start: 2017 Lipid panel Lipids [facility] Start: 2012 Diabetes screen Diabetes screen [facility] Start: 2007 HPV TESTING HPV TESTING [facility] Start: 2007 Screening for malignant neoplasm of cervix [facility] Start: 1998 PAP TESTING PAP TESTING [facility] Start: 1998 Screening for malignant neoplasm of cervix Pap smear [facility] Start: 1996 DTaP/Tdap/Td vaccine (1 - Tdap) DTaP/Tdap/Td vaccine (1 - Tdap) [facility] [employer] Start: 1996 Urine microalbumin profile DTAP,TDAP,TD (1 - Tdap) [facility] Start: 1995 HEPATITIS C SCREENING HEPATITIS C SCREENING [facility] Start: 1995 Hepatitis C screening Hepatitis C screen [facility] [employer] [facility] Start: 1995 HIV SCREENING HIV SCREENING [facility] Start: 1992 HIV screening HIV [facility] Start: 1989 Adult depression screening assessment [facility] Start: 1989 Depression Screen Depression Screen [facility] Start: 1977 COVID-19 Vaccine (#1) COVID-19 Vaccine (#1) [facility] Start: 1977 Screening for malignant neoplasm of colon [facility] Adrenocorticotropic hormone measurement [facility] Work Phone: Adrenocorticotropic hormone measurement [facility] Adrenocorticotropic hormone measurement [facility] Adrenocorticotropic hormone measurement [facility] Adrenocorticotropic hormone measurement [facility] Adrenocorticotropic hormone measurement [facility] Basophils [#/volume] in Blood by Automated count [facility] Basophils/100 leukoc ytes in Blood by Automated count [facility] Comprehensive metabo lic 1999 panel - Serum or Plasma [facility] Work Phone: Comprehensive metabo lic 1999 panel - Serum or Plasma [facility] Comprehensive metabo lic 1999 panel - Serum or Plasma [facility] Comprehensive metabo lic 1999 panel - Serum or Plasma [facility] Comprehensive metabo lic 1999 panel - Serum or Plasma [facility] Comprehensive metabo lic 1999 panel - Serum or Plasma [facility] Comprehensive metabo lic 1999 panel - Serum or Plasma [facility] Comprehensive metabo lic 1999 panel - Serum or Plasma [facility] Comprehensive metabo lic 1999 panel - Serum or Plasma [facility] Cortisol [Mass/volum e] in Serum or Plasma [facility] Work Phone: Cortisol [Mass/volum e] in Serum or Plasma [facility] Cortisol [Mass/volum e] in Serum or Plasma [facility] Cortisol [Mass/volum e] in Serum or Plasma [facility] Cortisol [Mass/volum e] in Serum or Plasma [facility] Cortisol [Mass/volum e] in Serum or Plasma [facility] CT Head WO and W contrast IV [facility] Work Phone: CT Head WO and W contrast IV [facility] Eosinophils [#/volum e] in Blood [facility] Eosinophils/100 leuk ocytes in Blood by Automated count [facility] Erythrocyte distribu tion width [Ratio] by Automated count [facility] Erythrocytes [#/volu me] in Blood [facility] Hematocrit [Volume F raction] of Blood [facility] Hemoglobin [Mass/vol ume] in Blood [facility] End: 02-17-2022 INITIATE PACU OXYGEN THERAPY PROTOCOL Initiate PACU Oxygen Therapy Protocol Respiratory Care Routine Continuous until discontinued starting 02/17/2022 [employer] Work Phone: Comment on above: Continuous until discontinued starting 0 02/17/2022 Leukocytes [#/volume ] corrected for nucleated erythrocytes in Blood by Automated coun [facility] Leukocytes [#/volume ] in Blood [facility] Lymphocytes [#/volum e] in Blood by Automated count [facility] Lymphocytes/100 leuk ocytes in Blood by Automated count [facility] End: 02-17-2022 WILLIE NEEDLE LOCALIZATION RIGHT [employer]IE [employer] RIGHT Imaging Routine Abnormal mammogram Once for 1 Occurrences starting 02/17/2022 until 02/17/2022 [employer] Work Phone: Comment on above: Once for 1 Occurrences starting 02/18/20 until 02/17/2022 MCH [Entitic mass] b y Automated count [facility] MCHC [Mass/volume] b y Automated count [facility] MCV [Entitic volume] by Automated count [facility] MG Breast - bilatera l Diagnostic [facility] Monocytes [#/volume] in Blood by Automated count [facility] Monocytes/100 leukoc ytes in Blood by Automated count [facility] Neutrophils [#/volum e] in Blood by Automated count [facility] Neutrophils/100 leuk ocytes in Blood by Automated count [facility] Nucleated erythrocyt es [Presence] in Blood by Automated count [facility] Oxygen therapy [Mini mum Data Set] Initiate Oxygen Therapy Protocol Respiratory Care Routine Daily until discontinued starting 02/17/2022 [employer] Work Phone: Comment on above: Daily until discontinued starting 2021 Platelet mean volume [Entitic volume] in Blood by Automated count [facility] Platelets [#/volume] in Blood [facility] Surgical Pathology Surgical Path ology Lab Routine Malignant neoplasm of right female breast, unspecified estrogen receptor status, unspecified site of breast (HCC) Release Upon Ordering for 1 Occurrences starting 02/17/2022 [employer] Phone: Comment on above: Release Upon Ordering for 1 Occurrences starting 02/17/2022 End: 02-17-2022 SURGICAL PATHOLOGY REPORT SURGICAL PATHOLOGY REPORT Lab Routine Once for 1 Occurrences starting 02/17/2022 until 02/17/2022 [employer] Phone: Comment on above: Once for 1 Occurrences starting 02/18/20 until 02/17/2022 Thyrotropin [Units/v olume] in Serum or Plasma [facility] Work Phone: Thyrotropin [Units/v olume] in Serum or Plasma [facility] Thyrotropin [Units/v olume] in Serum or Plasma [facility] Thyrotropin [Units/v olume] in Serum or Plasma [facility] Thyrotropin [Units/v olume] in Serum or Plasma [facility] Thyrotropin [Units/v olume] in Serum or Plasma [facility] Thyroxine (T4) free [Mass/volume] in Serum or Plasma [facility] Work Phone: Thyroxine (T4) free [Mass/volume] in Serum or Plasma [facility] Thyroxine (T4) free [Mass/volume] in Serum or Plasma [facility] Thyroxine (T4) free [Mass/volume] in Serum or Plasma [facility] Thyroxine (T4) free [Mass/volume] in Serum or Plasma [facility] Thyroxine (T4) free [Mass/volume] in Serum or Plasma [facility] Immunizations Immunization Date Immunization Notes Care Provider Fa cility 08-21-2020 Moderna SARS-CoV-2 Vaccination Shaikh Patria POZO Work Phone: [facility] 07-25-2020 Moderna SARS-CoV-2 Vaccination Shaikh Patria POZO Work Phone: [facility] 04-26-2018 influenza, injectabl e, quadrivalent, preservative free Shaikh Patria POZO Work Phone: [facility] 04-26-2018 influenza virus vacc ine, unspecified formulation Shaikh Patria POZO Work Phone: [facility] Payers Date Payer Category Payer Self-pay [id number] 2022 Unknown 2022 Unknown [id number] 2021 Unknown MMO MMO [employer] [id number] 2021-Present [phone] [address] [place] [address] PPO [id number] [id number] 2019 Unknown [id number] 2.16.840.1.026599.19 1977 Unknown [id number] 2.16.840.1.174196.3.579.2.177 1977 Unknown [id number] 2.16.840.1.155213.3.579.2.177 1977 Unknown [id number] 2.16.840.1.605811.3.579.2.175 1977 Unknown [id number] 2.16.840.1.563742.3.579.2.175 1977 Unknown [id number] 2.16.840.1.715260.3.579.2.593 1977 Unknown [id number] 2.16.840.1.707147.3.579.2.593 1977 Unknown [id number] 2.16.840.1.965726.3.579.2.593 1977 Unknown [id number] 2.16.840.1.715336.3.579.2.593 1977 Unknown [id number] 2.16.840.1.738485.3.579.2.593 1977 Unknown [id number] 2.16.840.1.162133.3.579.2.593 1977 Unknown [id number] 2.16.840.1.297996.3.579.2.593 1977 Unknown [id number] 2.16.840.1.426832.3.579.2.593 1977 Unknown [id number] 2.16.840.1.610619.3.579.2.196 1977 Unknown [id number] 2.16.840.1.029543.3.579.2.196 1977 Unknown [id number] 2.16.840.1.259640.3.579.2.727 1977 Unknown [id number] 2.16.840.1.887998.3.579.2.727 1977 Unknown [id number] 2.16.840.1.286802.3.579.2.9 1977 Unknown [id number] 2.16.840.1.402327.3.579.2.9 1977 Unknown [id number] 2.16.840.1.858330.3.579.2.1258 1977 Unknown [id number] 2.16.840.1.964924.3.579.2.9 1977 Unknown [id number] 2.16.840.1.041584.3.579.2.1258 1977 Unknown [id number] 2.16.840.1.287529.3.579.2.9 1977 Unknown [id number] 2.16.840.1.091630.3.579.2.1258 1977 Unknown [id number] 2.16.840.1.207643.3.579.2.1258 1977 Unknown [id number] 2.16.840.1.168909.3.579.2.9 Unknown [id number] Unknown HCAP/HFA/FAP Active [id number] Unknown [id number] 2.16.840.1.827470.3.579.2.531 Unknown [id number] 2.16.840.1.393144.3.579.2.531 Social History Date Type Detail [facility] Start: 1975 Sex Assigned At Not on file [facility] Start: 04-12-2023 Sex Assigned At F [facility] Start: 01-15-2022 End: 11-25-2022 Tobacco smoking status NHIS Ex-smoker [facility] Start: 01-15-2022 End: 02-01-2023 Tobacco use and exposure Smokeless tobacco non-user [facility] Start: 1975 Sex Assigned At Female [facility] Start: 01-13-2022 End: 02-17-2022 Exposure to SARS-CoV-2 (event) Not sure [facility] History of tobacco use Current smoker [employer] Phone: Start: 02-04-2022 Tobacco use and exposure Former smokeless tobacco user [employer] Phone: Start: 02-17-2022 End: 08-25-2023 Alcohol intake Lifetime non-drinker (finding) [employer] Phone: Start: 02-01-2023 End: 11-03-2023 Tobacco smoking status NHIS Never smoked tobacco [facility] Start: 04-12-2023 History of Social function [facility] Start: 03-01-2023 Alcohol Comment caffeine: 1-2 cups per day coffee [facility] Tobacco smoking status Never [facility] [place] Functional Status Date Assessment Result Facility 11-03-2023 Functional Status N/A [facility] Clinical Notes 07-08-2021 to 03-09-2024 Shaikh Patria MD - 08/25/2023 4:51 PM EST Note Date & Type Note Facility 03-09-2024 Note Attestation signed by Awa Maradiaga at 03/09/2024 12:58 PM By using the attestations below, the signing clinician agrees that I have read and verify that the documentation has been personally reviewed by me and ensure that the documentation accurately reflects the encounter. Office Visit Attestation GC: I personally saw this patient on the day of the encounter, performed the wagoner portion(s) of the service and participated in the management and confirm the fellow or resident's documentation. Please note there may be an additional personal documentation from me. Subjective Patient ID: Tenisha Hancock is a 48 y.o. female who presents for New Patient. HPI She has history of breast cancer for which she received immunotherapy with Keytruda from [id number]. She developed severe fatigue and weakness after starting this and was found to have very low serum cortisol level. She was started on hydrocortisone 10 mg daily in February 2023 and noticed significant improvement in her symptoms. There was attempt to taper and discontinue hydrocortisone, but she could not tolerate this due to extreme fatigue and also vomiting. She is currently taking hydrocortisone 10 mg once daily in the morning. She was recently recommended to add 5 mg in the afternoon but often forgets to take this. She was also started on levothyroxine around the same time, after Keytruda. She is currently taking 50 mcg daily. She reports intermittent dizziness upon standing, occurs once a week and lasts 30 seconds. Can be triggered by not eating well that day. Adrenal related symptoms Symptom Yes No Comment Exposure to synthetic glucocorticoid. [] [x] What kind?: How long?: Proximal muscle weakness [x] [] in the last year Easy-bruising [] [x] Centripetal obesity [] [] Violaceous stretch davison [] [x] Previous fragility fracture in adult life If yes, site(s): [] [x] Weight gain [x] [] during chemo Weight loss [x] [] 40 lbs since stopping chemo, has been dieting Irritability [] [] Change in personality [] [] Insomnia [] [x] Fatigue [] [x] Weakness [] [x] Salt-craving [] [] Dizziness [x] [] Swelling [] [] Decreased appetite [] [] Nausea [x] [] Vomiting [] [x] Heartburn [] [] Abdominal discomfort/pain [] [x] Diarrhea [] [x] Constipation [x] [] intermittent Increasing thirst [] [] Increasing drinking [] [] Frequent urination [] [] Frequent infection [] [] Skin hyperpigmentation [] [x] Terminal hair growth (only for female) [] [x] Infrequent or lack of menstrual cycles (only for female) [x] [] LMP 4 years ago Review of Systems See above Objective Visit Vitals BP 120/68 (BP Location: Right arm, Patient Position: Sitting, BP Cuff Size: Adult) Pulse 68 Physical Exam Vitals reviewed. Constitutional: General: She is not in acute distress. Appearance: She is not ill-appearing. HENT: Head: Normocephalic and atraumatic. Eyes: General: No scleral icterus. Extraocular Movements: Extraocular movements intact. Neck: Thyroid: No thyroid mass, thyromegaly or thyroid tenderness. Cardiovascular: Rate and Rhythm: Normal rate. Pulmonary: Effort: Pulmonary effort is normal. No respiratory distress. Skin: Coloration: Skin is not jaundiced. Neurological: General: No focal deficit present. Mental Status: She is alert and oriented to person, place, and time. Comments: Normal visual haas to confrontation Psychiatric: Mood and Affect: Mood normal. Behavior: Behavior normal. LABS: Recent Data from [facility] Related to ALL THYROID STIM HORMONE Component 10/29/23 07/30/23 THYROID STIMULATING HORMONE 2.988 2.141 Component 10/29/23 07/30/23 FREE T4 0.88 1.05 Component 10/29/23 07/30/23 CORTISOL - AM 0.2 Abnormal 0.2 Abnormal Assessment/Plan [x] The above LAB and/or imaging results were reviewed during this visit. ADRENAL INSUFFICIENCY -Due to immunotherapy (pembrolizumab) -Check morning cortisol and ACTH now. She last took hydrocortisone yesterday morning -Increase hydrocortisone to 10 mg in AM and 5 mg in afternoon -Will also check FSH/estradiol/prolactin to evaluate pituitary function -She had DXA scan performed in last 1-2 years, she will fax record to us [x] Physiology and diurnal changes of adrenal hormone were discussed with the patient. [x] Information of adrenal insufficiency was discussed and brochure was given to the patient. [x] Importance of hydrocortisone adjustment during acute illness was discussed and written instruction was given to the patient. [x] Patient was instructed to obtain a medical alert with diagnosis of adrenal insufficiency. [x] Patient was instructed to use hydrocortisone (Solu-Cortef) emergency kit during presumable adrenal crisis or when patient is not able t (more content not included)... [facility] 11-03-2023 Note Chief Complaint consultation for colonoscopy and lipoma HPI Staff 48 year old female presents on consultation from Dr. [place] for screening colonoscopy and possible lipoma. Denies abdominal or rectal pain. No rectal bleeding or change in bowel habits. Reports chronic nausea and GERD; taking Protonix 20mg daily which has been somewhat effective. Denies vomiting or unexplained weight loss. Never had EGD or colonoscopy in the past. Reports several year history of small soft mass to left upper back. Denies change in size since first noted. History of Present Illness 48 yo female with h/o triple negative breast cancer, hyperlipidemia, hypothyroidism, adrenal cortical hypofunction, migraines, lumbar radiculopathy, referred for neck lipoma and screening colonoscopy. patient reports some mild soreness of lipoma left upper back, no increase in size; no h/o similar lesions; also complains of worsening nausea and GERD, primarily after eating; some improvement with PPI, but has been on for many years, only 20 mg; no emesis, no change in bms or blood in stools; abdominal operations significant for cholecystectomy and tubal ligation; no asa or NSAID use; no tobacco use. no fmhx of GI malignancy or IBD. Review of Systems PHQ Score Initial Depression Screen Score: 0 SCORE ROS - Provider Constitutional: no fever, no sweats, no weight loss. Eyes: no glasses, no blurred vision, no visual loss. ENMT: no dentures, no hoarseness, no swallowing difficulties, no hearing loss, no ear infection(s), no nose bleeds. Cardiovascular: normal blood pressure, no chest pain, regular heartbeat, no heart murmur. Respiratory: no shortness of breath, no cough, no asthma, no wheezing. Gastrointestinal: yes nausea, no vomiting, no diarrhea, no constipation, no blood in stool, no change in bowel habits, no abdominal pain, no hepatitis. Genitourinary: no kidney stones, no urine infection, no dysuria. Musculoskeletal: no pain, no weakness. Skin: no changing moles, no rash, yes skin lumps. Neurologic: no seizures, no epilepsy, no headache. Psychiatric: no emotional or psychiatric problem. Heme/Lymph: no bleeding problems, no anemia, no blood clots, no transfusions. Allergy/Immunologic: no swollen lymph nodes/glands, no IV drug abuse. Other: Additional ROS info: Except as noted in the above Review of Systems and in the History of Present Illness, all other systems have been reviewed and are negative or noncontributory. Physical Exam Vitals & Measurements HR: 70(Peripheral) RR: 16 BP: 112/66 HT: 63 in HT: 160 cm WT: 77.7 kg WT: 170.94 lb BMI: 30.35 HEENT: normal conjunctiva, sclera clear, no scleral icterus, EOM intact, PERRLA, oral mucosa moist without lesions. Neck: trachea midline, no mass, symmetric, no thyromegaly or nodules, no adenopathy Respiratory: lungs CTA, respirations non labored. Cardiovascular: regular rate and rhythm, no murmur, no pedal edema or varicosities. Gastrointestinal: soft, non distended, mild tenderness, epigastrium no masses, no palpable hernias, diastasis recti no, no hepatosplenomegaly; normal bs Lymphatic: no cervical adenopathy, no axillary adenopathy, no inguinal adenopathy. Musculoskeletal: normal gait, digits and nails without infection, nodes, cyanosis, clubbing. Skin: no rashes, no lesions, no ulcers, 2 cm lipoma left upper back, nontender, no skin changes Psychiatric/Neuro: oriented to time, place, person, judgement normal, affect appropriate for age, insight intact, no focal deficits. Tests: review of old records completed , Discussed surgical options, risks, and possible complications with patient. Assessment/Plan 1. GERD (gastroesophageal reflux disease) (K21.9: Gastro-esophageal reflux disease without esophagitis) plan EGD and colonoscopy under anesthesia, informed consent obtained. 2. Epigastric pain (R10.13: Epigastric pain) see # 1 3. Screening for malignant neoplasm of colon (Z12.11: Encounter for screening for malignant neoplasm of colon) see # 1 4. Lipoma of back (D17.1: Benign lipomatous neoplasm of skin and subcutaneous tissue of trunk) monitor for now, plan excisional bx if increases in size, or becomes symptomatic; call with problems/questions. Follow-up No qualifying data available Problem List/Past Medical History Ongoing Adrenal cortical hypofunction Anxiety and depression BMI 30.0-30.9,adult Epigastric pain GERD (gastroesophageal reflux disease) Hyperlipidemia Hypopituitarism Hypothyroidism Lipoma of back Lumbar radiculopathy Migraines Obesity Screening for malignant neoplasm of colon Triple-negative breast cancer Historical Cervical spondylosis Procedure/Surgical History Biopsy of breast, Breast reconstruction, Carpal tunnel release, Cholecystectomy, Endometrial ablation, Hemorrhoidectomy, History of cervical spine surgery, Insertion of implantable venous access port, LEEP, Lumpectomy of right breast, Plantar fasciotomy, Tubal ligation. Medications buPR (more content not included)... [facility] Comment on above: Result Comment: Elec tronically Signed By: ANTONELLA POZO, Ismael Christianson\radha\Date and Time Signed: 11/03/23 16:46 EDT 08-25-2023 History of Present illness Narrative Xr wrist documented in this encounter [facility] 09-19-2022 Progress note Note Date/Time September 18, 2022 1:44pm [facility] [place] [address] Hem/Onc Follow Up Note - OP Signed Patient: Tenisha Hancock MR#: [id number] : 1975 Acct:[id number] Age/Sex: 47 / F Type: REG RCR [...] hydrocortisone 20mg am/10mg pm. Will f/u with [employer] next week to review symptoms. We may [...] right mastopexy on 02/17/2022 by Drs. Saunders/Drew ([facility]). Her pathology returned with no evidence of [...] Simons and has an appointment scheduled at [facility] to discuss josep flap surgery as [...] overall good. BRCA testing was done through [employer] and is negative. She does have left [...] I willdefer to his impression and recommendations. 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 This is a 46-year-old female who works at [employer] with triple negative breast cancer, referred for neoadjuvant chemotherapy. Mammogramon on April 22, 2021 showed 3 new focal masses with the largest measuring 2 cm in size in the right breast. 2 additional lesions measuring 1 cm and a second 0.9 cm were also seen. The patient was referred for biopsy. Needle biopsy showed triple negative breast cancer, ER negative, IN negative, and H ER 2 -. The patient was referred to Dr. Ismael Red for Spuqtg-v-Wmsu which she has had placed. She has seen my colleague Dr. Smith at the [facility] recommended neoadjuvant chemotherapy and immunotherapy. Because of insurance reasons, she will be getting her treatment here at [facility]. She has had echocardiography as well. According the patient an MRI was obtained prior to neoadjuvant therapy while she was at [facility] we are requesting this prior study. [...] showed triple negative breast cancer, ER negative, IN negative, and HER 2 -. The patient was referred to Dr. Ismael Red for Pccmgy-t-Eael which she has had placed. [facility] and [facility]. Because of insurance reasons, she will be getting her treatment here at [facility]. She has had echocardiography as well. [...] cycles --Original breast MRI obtained from [facility] from May 2021, follow-up breast MRI [...] preoperatively in late December. 2. 02/17/2022 at [facility], Drs. Saunders/Shantal: needle localized lumpectomy with oncoplastic [...] Allergies Allergy (Verified 09/18/22 13:38) Home Medications grnkpln-jafspstaobfie-cfqxhluk 250 mg-250 mg-65 mg tablet (Excedrin Migraine) [...] % (Auto) 91.1, Lymph % (Auto) 6.2, [place] % (Auto) 2.3, Eos % (Auto) 0.1, Baso % (Auto) 0.3, Nucleat RBC Rel Count 0.1, Neut # (Auto) 10.4 H, Lymph # (Auto) 0.7 L, [place] # (Auto) 0.3, Eos # (Auto) 0.0, [...] see in consultation by Dr. Smith at [facility] in [place], [place]; however, due to insurance reasons the patient transferredcare to [facility]. In reviewing notes from her prior physician [...] do not have records from this from [facility] in [place]. I am requesting this to evaluate her [...] testing returned negative from prior physicians at [facility]. BRCA testing negative Follow-up September is cycle [...] will review her prior MRI from [facility] in May 2021 in comparison to [...] toxicities. MRI was reviewed and [facility] tumor board with Dr. 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 Completed adjuvant radiation then we resumed [...] with sentinel lymph node biopsy 02/17/2022 in [place]. Adjuvant radiation completed 05/04-06/16/2022. Total of 30 [...] for coordination of care (as documented) and lyqd-gx-yuzn counseling of patient and/or family. Dictated By: Kallie Chang MD DD/ [id number] Signed By: <Electronically signed by MD Kallie Chang> 09/18/22 [address] [facility] Work Phone: 1(269) 123-750602-18-2023 Progress note Author Kallie Chang [facility] September 04, 2022 10:35pm Note Date/Time September 04, 2022 1:11pm [facility] at [address] [address] Hem/Onc Follow Up Note - OP Signed Patient: Tenisha Hancock MR#: [id number] : 1975 Acct:[id number] Age/Sex: 47 / F Type: REG RCR [...] hydrocortisone 20mg am/10mg pm. Will f/u with [employer] [facility] next week to review symptoms. We may [...] right mastopexy on 02/17/[address]rs[address] Saunders/Drew ([facility]). Her pathology returned with no evidence of [...] Simons and has an appointment scheduled at [facility] to discuss josep flap surgery as [...] overall good. BRCA testing was done through [employer] and is negative. She does have left [...] I willdefer to his impression and recommendations. 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 This is a 46-year-old female who works at [employer] with triple negative breast cancer, referred for neoadjuvant chemotherapy. Mammogramon on April 22, 2021 showed 3 new focal masses with the largest measuring 2 cm in size in the right breast. 2 additional lesions measuring 1 cm and a second 0.9 cm were also seen. The patient was referred for biopsy. Needle biopsy showed triple negative breast cancer, ER negative, IN negative, and H ER 2 -. The patient was referred to Dr. Ismael Red for Duxudm-h-Plwb which she has had placed. [facility]. Because of insurance reasons, she will be getting her treatment here at [facility]. She has had echocardiography as well. According the patient an MRI was obtained prior to neoadjuvant therapy while she was at [facility] we are requesting this prior study. [...] showed triple negative breast cancer, ER negative, IN negative, and HER 2 -. The patient was referred to Dr. Ismael Red for Wlcfmj-u-Btxx which she has had placed. She has seen my colleague Dr. Smith at the [facility] recommended neoadjuvant chemotherapy and immunotherapy. Because of insurance reasons, she will be getting her treatment here at [facility]. She has had echocardiography as well. [...] cycles --Original breast MRI obtained from [facility] from May 2021, follow-up breast MRI [...] preoperatively in late December. 2. 02/17/2022 at [facility], Drs. Saunders/Shantal: needle localized lumpectomy with oncoplastic [...] Allergies Allergy (Verified 09/04/22 13:03) Home Medications xxmcjij-yqkcsjttsidiq-josvnupj 250 mg-250 mg-65 mg tablet (Excedrin Migraine) [...] see in consultation by Dr. Smith at [facility] in [place], [place]; however, due to insurance reasons the patient transferredcare to [facility]. In reviewing notes from her prior [...] do not have records from this from [facility] in [place]. I am requesting this to evaluate her [...] testing returned negative from prior physicians at [facility] clinic. BRCA testing negative Follow-up September [...] will review her prior MRI from [facility] in May 2021 in comparison to [...] toxicities. MRI was reviewed and [facility] tumor board with Dr. 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 Completed adjuvant radiation then we resumed [...] for coordination of care (as documented) and pjar-sl-vocp counseling of patient and/or family. Dictated By: Kallie Chang MD DD/ [id number] Signed By: <Electronically signed by MD Kallie Chang> 09/04/[address] [facility] Work Phone: 1(713) 745-133702-03-2023 Progress note Author Heber Arriaga [facility] August 21, 2022 1:13pm Note Date/Time August 14, 2022 2 :16pm [facility] [place] [id number] Hem/Onc Follow Up Note - OP Signed Patient: Tenisha Hancock MR#: [id number] : 1975 Acct:[id number] Age/Sex: 47 / F Type: REG RCR [...] hydrocortisone 20mg am/10mg pm. Will f/u with [employer] next week to review symptoms. We may [...] right mastopexy on 02/17/[address]rs. Saunders/Drew ([facility]). Her pathology returned with no evidence of [...] Simons and has an appointment scheduled at [facility] to discuss josep flap surgery as [...] overall good. BRCA testing was done through [employer] and is negative. She does have left [...] I willdefer to his impression and recommendations. 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 This is a 46-year-old female who works at [employer] with triple negative breast cancer, referred for neoadjuvant chemotherapy. Mammogramon on April 22, 2021 showed 3 new focal masses with the largest measuring 2 cm in size in the right breast. 2 additional lesions measuring 1 cm and a second 0.9 cm were also seen. The patient was referred for biopsy. Needle biopsy showed triple negative breast cancer, ER negative, IN negative, and H ER 2 -. The patient was referred to Dr. Ismael Red for Zaygib-t-Twix which she has had placed. [facility]. Because of insurance reasons, she will be getting her treatment here at [facility]. She has had echocardiography as well. According the patient an MRI was obtained prior to neoadjuvant therapy while she was at [employer] we are requesting this prior study. She [...] showed triple negative breast cancer, ER negative, IN negative, and HER 2 -. The patient was referred to Dr. Ismael Red for Tmhxao-x-Cfor which she has had placed. She [facility]. Because of insurance reasons, she will be getting her treatment here at [facility]. She has had echocardiography as well. [...] cycles --Original breast MRI obtained from [facility] from May 2021, follow-up breast MRI [...] preoperatively in late December. 2. 02/17/2022 at [facility], Drs. Saunders/Shantal: needle localized lumpectomy with oncoplastic [...] Allergies Allergy (Verified 08/06/22 13:31) Home Medications yaqowez-xnzrvqjqwpynd-nfkhgsch 250 mg-250 mg-65 mg tablet (Excedrin Migraine) [...] see in consultation by Dr. Smith at [facility] in [place], [place]; however, due to insurance reasons the patient transferredcare to [facility] [place] [facility]. In reviewing notes from her prior physician [...] do not have records from this from [facility] in [place]. I am requesting this to evaluate her [...] testing returned negative from prior physicians at [facility]. BRCA testing negative Follow-up September is cycle [...] will review her prior MRI from [facility] in May 2021 in comparison to [...] toxicities. MRI was reviewed and [facility] tumor board with Dr. Reza and he [...] immunotherapy labs adjuvant cycle 2-day 1 Pembrolizumab orsrobinson if new issues arise. High complexity visit [...] small focus of residual DCIS, ER 5%, IN 0%. Completed adjuvant radiation then we resumed [...] for coordination of care (as documented) and qqjv-pd-xnnf counseling of patient and/or family. Dictated By: Heber Arriaga APRN DD/ 1416 Signed By: <Electronically signed by PETE Arriaga> 08/21/22 [address] [facility] Work Phone: 1(792) 323-151301-20-2023 Progress note Author Kallie Chang [facility] August 07, 2022 1:00pm Note Date/Time August 06, 2022 1 :39pm [facility] [place] [address] Hem/Onc Follow Up Note - OP Signed Patient: Tenisha Hancock MR#: [id number] : 1975 Acct:[id number] Age/Sex: 47 / F Type: REG RCR [...] hydrocortisone 20mg am/10mg pm. Will f/u with [employer] next week to review symptoms. We may [...] right mastopexy on 02/17/[address] Saunders/Drew ([facility]). Her pathology returned with no evidence of [...] Simons and has an appointment scheduled at [facility] to discuss josep flap surgery as [...] overall good. BRCA testing was done through [employer] and is negative. She does have left [...] I willdefer to his impression and recommendations. 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 This is a 46-year-old female who works at [employer] with triple negative breast cancer, referred for neoadjuvant chemotherapy. Mammogramon on April 22, 2021 showed 3 new focal masses with the largest measuring 2 cm in size in the right breast. 2 additional lesions measuring 1 cm and a second 0.9 cm were also seen. The patient was referred for biopsy. Needle biopsy showed triple negative breast cancer, ER negative, IN negative, and H ER 2 -. The patient was referred to Dr. Ismael Red for Dgfdcr-x-Bzxf which she has had placed. She has [facility]. Because of insurance reasons, she will be getting her treatment here at [facility]. She has had echocardiography as well. According the patient an MRI was obtained prior to neoadjuvant therapy while she was at [facility] we are requesting this prior study. [...] showed triple negative breast cancer, ER negative, IN negative, and HER 2 -. The patient was referred to Dr. Ismael Red for Upvfjg-u-Kigx which she has had placed. She has [facility]. Because of insurance reasons, she will be getting her treatment here at [facility]. She has had echocardiography as well. [...] cycles --Original breast MRI obtained from [facility] from May 2021, follow-up breast MRI [...] preoperatively in late December. 2. 02/17/2022 at [facility], Drs. Saunders/Shantal: needle localized lumpectomy with oncoplastic [...] Allergies Allergy (Verified 08/06/22 13:31) Home Medications mmozmhh-wgkmizoenmmrm-xqnbmnun 250 mg-250 mg-65 mg tablet (Excedrin Migraine) [...] % (Auto) 92.9, Lymph % (Auto) 5.5, [place] % (Auto) 1.4, Eos % (Auto) 0.0, Baso % (Auto) 0.2, Nucleat RBC Rel Count 0.0, Neut # (Auto) 8.7 H, Lymph # (Auto) 0.5 L, [place] # (Auto) 0.1, Eos # (Auto) 0.0, [...] see in consultation by Dr. Smith at [facility] in [place], [place]; however, due to insurance reasons the patient transferredcare to [facility]. In reviewing notes from her prior physician [...] do not have records from this from [facility] in [place]. I am requesting this to evaluate her [...] testing returned negative from prior physicians at [facility]. BRCA testing negative Follow-up September is cycle [...] will review her prior MRI from [facility] in May 2021 in comparison to [...] toxicities. MRI was reviewed and [facility] tumor board with Dr. 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 Completed adjuvant radiation then we resumed [...] with sentinel lymph node biopsy 02/17/2022 in [place]. Adjuvant radiation completed 05/04-06/16/2022. Total of 30 [...] for coordination of care (as documented) and cetq-ee-miaz counseling of patient and/or family. Dictated By: Kallie Chang MD DD/ 1338 Signed By: <Electronically signed by MD Kallie Chang> 08/07/22 [address] [facility] Work Phone: 1(246) 591-125501-06-2023 Progress note Author Kallie Chang [facility] July 24, 2022 11:26am Note Date/Time July 23, 2022 1: 43pm [facility] [place] [address] Hem/Onc Follow Up Note - OP Signed Patient: Tenisha Hancock MR#: [id number] : 1975 Acct:[id number] Age/Sex: 47 / F Type: REG RCR [...] hydrocortisone 20mg am/10mg pm. Will f/u with [employer] next week to review symptoms. We may [...] right mastopexy on 02/17/[address] Saunders/Drew ([facility]). Her pathology returned with no evidence of [...] Simons and has an appointment scheduled at [facility] to discuss josep flap surgery as [...] overall good. BRCA testing was done through [employer] and is negative. She does have left [...] I willdefer to his impression and recommendations. 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 This is a 46-year-old female who works at [employer] with triple negative breast cancer, referred for neoadjuvant chemotherapy. Mammogram onon April 22, 2021 showed 3 new focal masses with the largest measuring 2 cm in size in the right breast. 2 additional lesions measuring 1 cm and a second 0.9 cm were also seen. The patient was referred for biopsy. Needle biopsy showed triple negative breast cancer, ER negative, IN negative, and H ER 2 -. The patient was referred to Dr. Ismael Red for Nptvla-t-Dhgs which she has had placed. She has seen my colleague Dr. [facility] whorecommended neoadjuvant chemotherapy and immunotherapy. Because of insurance reasons, she will be getting her treatment here at [facility]. She has had echocardiography as well. According the patient an MRI was obtained prior to neoadjuvant therapy while shewas at [facility] we are requesting this prior study. [...] showed triple negative breast cancer, ER negative, IN negative, and HER 2 -. The patient was referred to Dr. Ismael Red for Eyzlus-v-Vukc which she has had placed. She has [facility] my [facility]. Because of insurance reasons, she will be getting her treatment here at [facility]. She has had echocardiography as well. [...] cycles --Original breast MRI obtained from [facility] from May 2021, follow-up breast MRI [...] preoperatively in late December. 2. 02/17/2022 at [facility], Drs. Saunders/Drew: needle localized lumpectomy with oncoplastic [...] Allergies Allergy (Verified 07/23/22 13:29) Home Medications bbctzvy-hahyoncoecovq-vxhmpcuc 250 mg-250 mg-65 mg tablet (Excedrin Migraine) [...] of Most Recent CBC and CMP 07/22/22 15:07/22/22 15:05 Labs - Last 7 Days 07/22/22 15:05: Corrected WBC 6.5, Uncorrected WBC Count 6.5, RBC 3.65, Hgb 11.0L, Hct 32.7 L, MCV 89.6, MCH 30.1, MCHC 33.6, RDW 13.7, Plt Count 361, MPV 6.9, Neut % (Auto) 71.8, Lymph % (Auto) 19.9, [place] % (Auto) 6.3, Eos % (Auto) 1.3, Baso % (Auto) 0.7, Nucleat RBC Rel Count 0.2, Neut # (Auto) 4.6, Lymph # (Auto) 1.3, [place] # (Auto) 0.4, Eos # (Auto) 0.1, [...] see in consultation by Dr. Smith at [facility] in [place], [place]; however, due to insurance reasons the patient transferredcare to [facility]. In reviewing notes from her prior physician [...] do not have records from this from [facility] in [place]. I am requesting this to evaluate her [...] testing returned negative from prior physicians at [facility]. BRCA testing negative Follow-up September is cycle [...] will review her prior MRI from [facility] in May 2021 in comparison to [...] toxicities. MRI was reviewed and [facility] tumor board with Dr. Reza and he [...] with sentinel lymph node biopsy 02/17/2022 in [place]. Adjuvant radiation completed 05/04-06/16/2022. Total of 30 [...] for coordination of care (as documented) and ekig-hs-cfxm counseling of patient and/or family. Dictated By: Kallie Chang MD DD/ 1342 Signed By: <Electronically signed by MD Kallie Chang> 07/24/[address] [facility] Work Phone: 1([phone]) 123-331412-28-2022 Progress note Author Stacie Thomas [facility] July 15, 2022 1:57pm Note Date/Time July 15, 2022 9:31am [facility] [place] [address] Rad Onc Follow Up Note - OP Signed Patient: Tenisha Hancock MR#: [id number] : 1975 Acct:[id number] Age/Sex: 47 / F Type: REG RCR [...] 0 out of 5 lymph nodes involved. [id number]. 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 Per the available notes her BRCA testing was done through [employer] and was negative. Also appears the right breast mass was palpable in the lower mid quadrant of the breast. [facility]. Due to insurance reasons she received her systemic therapy here at [facility]. PET/CT was denied by insurance. CT scan of the chest abdomen pelvis on July 16, 2021 was negative for metastatic disease. Her clinical stage at presentation was cT2N0. June 11, 2021 patient did undergo an MRI in [place]. I do not have that report available [...] 0 out of 5 lymph nodes negative. [id number]. Pathology was negative for LVSI. Of note [...] <Electronically signed by Stacie Thomas MD> 07/15/22 [address] [facility] Work Phone: 1(752) 499-561312-02-2022 Progress note Author Kallie Chang [facility] June 19, 2022 9:06am Note Date/Time June 18, 2022 1 0:26am [facility] [place] [address] Hem/Onc Follow Up Note - OP Signed Patient: Tenisha Hancock MR#: [id number] : 1975 Acct:[id number] Age/Sex: 47 / F Type: REG RCR [...] hydrocortisone 20mg am/10mg pm. Will f/u with [employer] next week to review symptoms. We may [...] right mastopexy on 02/17/[address] Saunders/Drew ([facility]). Her pathology returned with no evidence of [...] Simons and has an appointment scheduled at [facility] to discuss josep flap surgery as [...] overall good. BRCA testing was done through [employer] and is negative. She does have left [...] I willdefer to his impression and recommendations. 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 This is a 46-year-old female who works at [employer] with triple negative breast cancer, referred for neoadjuvant chemotherapy. Mammogramon on April 22, 2021 showed 3 new focal masses with the largest measuring 2 cm in size in the right breast. 2 additional lesions measuring 1 cm and a second 0.9 cm were also seen. The patient was referred for biopsy. Needle biopsy showed triple negative breast cancer, ER negative, IN negative, and H ER 2 -. The patient was referred to Dr. Ismael Red for Iyxkfh-s-Xgqm which she has had placed. She has seen my colleague Dr. Smith at the [facility] recommended neoadjuvant chemotherapy and immunotherapy. Because of insurance reasons, she will be getting her treatment here at [facility]. She has had echocardiography as well. According the patient an MRI was obtained prior to neoadjuvant therapy while she was at [facility] we are requesting this prior study. [...] showed triple negative breast cancer, ER negative, IN negative, and HER 2 -. The patient was referred to Dr. Ismael Red for Babodx-q-Jvxb which she has had placed. She has seen my colleague Dr. Smith at the [facility] recommended neoadjuvant chemotherapy and immunotherapy. Because of insurance reasons, she will be getting her treatment here at [facility]. She has had echocardiography as well. [...] cycles --Original breast MRI obtained from [facility] from May 2021, follow-up breast MRI [...] preoperatively in late December. 2. 02/17/2022 at [facility], Drs. Saunders/Drew: needle localized lumpectomy with oncoplastic [...] Allergies Allergy (Verified 03/12/22 08:56) Home Medications soqyitv-dgkfdtiffbjvx-ahbkrjyf 250 mg-250 mg-65 mg tablet (Excedrin Migraine) [...] % (Auto) 69.1, Lymph % (Auto) 17.2, [place] % (Auto) 10.3, Eos % (Auto) 2.7, Baso % (Auto) 0.7, Nucleat RBC Rel Count 0.0, Neut # (Auto) 3.5, Lymph # (Auto) 0.9 L, [place] # (Auto) 0.5, Eos # (Auto) 0.1, [...] see in consultation by Dr. Smith at [facility] in [place], [place]; however, due to insurance reasons the patient transferredcare to [facility]. In reviewing notes from her prior physician [...] do not have records from this from [facility] in [place]. I am requesting this to evaluate her [...] testing returned negative from prior physicians at [facility]. BRCA testing negative Follow-up September is cycle [...] will review her prior MRI from [facility] in May 2021 in comparison to [...] other significant toxicities. MRI was reviewed and [facility] tumor board with Dr. Reza and [...] with sentinel lymph node biopsy 02/17/2022 in [place]. Adjuvant radiation completed 05/04-06/16/2022. Total of 30 [...] giving hydrocortisone for symptom management. Reassess by [employer] for tolerance of therapy in 1 week. 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 Dictated By: Kallie Chang MD DD/ 1026 Signed By: <Electronically signed by MD Kallie Chang> 06/19/[address] [facility] Work Phone: 1(367) 791-592609-30-2022 Progress note Author Stacie Thomas [facility] April 17, 2022 9:21am Note Date/Time April 16, 2022 9:02am [facility] [place] [address] Rad Onc Follow Up Note - OP Signed with Addenda Patient: Tenisha Hancock MR#: [id number] : 1975 Acct:[id number] Age/Sex: 47 / F Type: REG RCR [...] 0 out of 5 lymph nodes involved. [id number]. 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 Per the available notes her BRCA testing was done through [employer] and was negative. Also appears the right breast mass was palpable in the lower mid quadrant of the breast. [facility]. Due to insurance reasons she received her systemic therapy here at [facility]. PET/CT was denied by insurance. CT scan of the chest abdomen pelvis on July 16, 2021 was negative for metastatic disease. Her clinical stage at presentation was cT2N0. June 11, 2021 patient did undergo an MRI in [place]. I do not have that report available [...] 0 out of 5 lymph nodes negative. [id number]. Pathology was negative for LVSI. Of note [...] limits Dictated By: Stacie Thomas MD DD/ 0 Signed By: <Electronically signed by Stacie Thomas MD> 04/16/[address] [facility] Work Phone: 1(232) 644-120409-13-2022 NotePROCEDURE: XR GI UPPER AIR KUB DUAL [...] Electronically authenticated by: BARBER VASQUEZ Date: 2022 14:36[facility]09-13-2022 NotePROCEDURE: XR GI UPPER AIR KUB [...] Electronically authenticated by: BARBER VASQUEZ Date: 2022 14:36[facility]09-01-2022 Consult note Author Stacie Thomas [facility] March 19, 2022 10:56am Note Date/Time March 18, 2022 3: [address] [place] [address] [place] [address] Rad Onc Consult Note - OP Signed Patient: Tenisha Hancock MR#: [id number] : 1975 Acct:[id number] Age/Sex: 46 / F Type: REG RCR [...] 0 out of 5 lymph nodes involved. [id number]. 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 Per the available notes her BRCA testing was done through [employer] and was negative. Also appears the right breast mass was palpable in the lower mid quadrant of the breast. [facility]. Due to insurance reasons she received her systemic therapy here at [facility]. PET/CT was denied by insurance. CT scan of the chest abdomen pelvis on July 16, 2021 was negative for metastatic disease. Her clinical stage at presentation was cT2N0. June 11, 2021 patient did undergo an MRI in [place]. I do not have that report available [...] 0 out of 5 lymph nodes negative. [id number]. Pathology was negative for LVSI. Of note [...] work. Has no other breast related complaints. [facility] - Medical History Medical History: Medical History [...] Allergies Allergy (Verified 03/12/22 08:56) Home Medications lackukh-djtejkhxrueaa-pkcmucmq 250 mg-250 mg-65 mg tablet (Excedrin Migraine) [...] signed by Stacie Thomas MD> 03/19/[address] [facility] Work Phone: [phone]) [phone] Consult note Author Stacie Thomas [facility] March 19, 2022 10:56am Note Date/Time March 18, 2022 3: 31pm [facility] [place] [address] Rad Onc Consult Note - OP Signed Patient: Tenisha Hancock MR#: [id number] : 1975 Acct:[id number] Age/Sex: 46 / F Type: REG RCR [...] 0 out of 5 lymph nodes involved. [id number]. 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 Per the available notes her BRCA testing was done through [employer] and was negative. Also appears the right breast mass was palpable in the lower mid quadrant of the breast. [facility]. Due to insurance reasons she received her systemic therapy here at [facility]. PET/CT was denied by insurance. CT scan of the chest abdomen pelvis on July 16, 2021 was negative for metastatic disease. Her clinical stage at presentation was cT2N0. June 11, 2021 patient did undergo an MRI in [place]. I do not have that report available [...] 0 out of 5 lymph nodes negative. [id number]. Pathology was negative for LVSI. Of note [...] work. Has no other breast related complaints. [facility] - Medical History Medical History: Medical History [...] Allergies Allergy (Verified 03/12/22 08:56) Home Medications effpjdp-mzjdgfonmxapa-zlwvjwtv 250 mg-250 mg-65 mg tablet (Excedrin Migraine) [...] signed by Stacie Thomas MD> 03/19/[address] [facility] Work Phone: 1([phone]) 979-647708-25-2022 Progress note Author Kallie Chang [facility] March 12, 2022 4:36pm Note Date/Time March 12, 2022 9: 49am [facility] at [address] [address] Hem/Onc Follow Up Note - OP Signed Patient: Tenisha Hancock MR#: [id number] : 1975 Acct:[id number] Age/Sex: 46 / F Type: REG RCR [...] right mastopexy on 02/17/[address] Drs. Saunders/Drew ([facility]). Her pathology returned with no evidence of [...] Simons and has an appointment scheduled at [facility] to discuss josep flap surgery as [...] overall good. BRCA testing was done through [employer] and is negative. She does have left [...] I willdefer to his impression and recommendations. 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 This is a 46-year-old female who works at [employer] with triple negative breast cancer, referred for neoadjuvant chemotherapy. Mammogramon on April 22, 2021 showed 3 new focal masses with the largest measuring 2 cm in size in the right breast. 2 additional lesions measuring 1 cm and a second 0.9 cm were also seen. The patient was referred for biopsy. Needle biopsy showed triple negative breast cancer, ER negative, IN negative, and H ER 2 -. The patient was referred to Dr. Ismael Red for Jijozi-q-Jnsq which she has had placed. [facility]. Because of insurance reasons, she will be getting her treatment here at [facility]. She has had echocardiography as well. According the patient an MRI was obtained prior to neoadjuvant therapy while she was at [facility] we are requesting this prior study. [...] showed triple negative breast cancer, ER negative, IN negative, and HER 2 -. The patient was referred to Dr. Ismael Red for Taxtbc-o-Bafe which she has had placed. She [facility]. Because of insurance reasons, she will be getting her treatment here at [facility]. She has had echocardiography as well. [...] cycles --Original breast MRI obtained from [facility] from May 2021, follow-up breast MRI [...] preoperatively in late December. 2. 02/17/2022 at [facility], Drs. Saunders/Drew: needle localized lumpectomy with oncoplastic [...] Allergies Allergy (Verified 03/12/22 08:56) Home Medications lutyllt-tdxzxbleqqqtr-xmaxcokj 250 mg-250 mg-65 mg tablet (Excedrin Migraine) [...] see in consultation by Dr. Smith at [facility] in [place], [place]; however, due to insurance reasons the patient transferredcare to [facility]. In reviewing notes from her prior physician [...] do not have records from this from [facility] in [place]. I am requesting this to evaluate her [...] testing returned negative from prior physicians at [facility]. BRCA testing negative Follow-up September is cycle [...] will review her prior MRI from [facility] in May 2021 in comparison to [...] toxicities. MRI was reviewed and [facility] tumor board with Dr. 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 Referring for adjuvant radiation then we [...] for coordination of care (as documented) and ukbj-fz-hzss counseling of patient and/or family. Dictated By: Kallie Chang MD DD/ [id number] Signed By: <Electronically signed by MD Kallie Chang> 03/12/22 [address] [facility] Work Phone: 1(312) 643-113408-02-2022 Hospital Discharge instructions* Discharge Instructions* Nader Alicia [...] permanent changes in scar color to darker, player development manager or discolored. At times you may have [...] drainage Our office numbers are as follows: [place] office: documented in this encounterSTAFFORD [facility]OSPITALNanda [facility] Phone: [phone]) 135-688807-14-2022 Miscellaneous Notes* Telephone Encounter - Nat Ricketts RN - 01/29/2022 5:25 PM EDT Noticed that patient's appointment for 01/[address] Lea was cancelled Called and lmom with my name and number for her to call back if this was cancelled accidentally somehow and we would be happy to put her back on the schedule documented in this encounterMadison Health07-07-2022 Miscellaneous Notes* Telephone Encounter - Nat Ricketts [...] on voicemail to return her call at [phone]. Thank you. * Telephone Encounter - Nat [...] I see a teaching note 06/23/21 at [facility] but limited documentation since then as [...] EDT Noted I will check when in [place] on Wednesday. * Telephone Encounter - Alvin Alexis - 01/16/2022 1:23 PM EDT Pt calling regarding faxed info she had sent to [employer]. Pt asking if fax was received by office or if she needs to do anything else. Pt requesting call back to discuss. * Telephone Encounter - Lucinda Alvarez Ma - 01/16/2022 9:13 AM EDT I called pt to discuss where all outside workup has been, she has had studies at both [facility] and [facility]. I was able to have patient get a release and will also fax to [employer] what she hasthus far. Our office will [...] slides and reports SHANNAN documented in this encounterMadison Health06-30-2022 NoteHNO ID: [id number] Author: Yasemin Bernal Service: ? Author Type: ? Type: Progress Notes Filed: 01/15/2022 4:35 PM Note Text: DATE OF PHOTOS: 01/15/2022 Body Part: Breasts and Abdomen Yasemin Bernal January 15, 2022 4:35 [facility]06-29-2022 NoteHNO ID: [id number] Author: Fahad Russell MD Service: ? Author Type: Physician Type: Progress Notes Filed: 01/27/2022 4:45 PM Note Text: BREAST RECONSTRUCTION EVALUATION CC: Tenisha Hancock is a 46 year old female that presents today for breast reconstruction evaluation. 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 Dr. Reza in [place] is her breast surgeon. She saw a plastic surgeon in [place] but he was not a microsurgeon and [...] STATUS: Single EMPLOYMENT: Patient is employed at [employer] staff EXAM: There is no height or weight on file to calculate BMI. 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 Tenisha Hancock was given supplemental information on [...] Past Histories independently gathered by the clinical technical support professional and the remaining scribed note accurately describes my personal service to the patient. patient's condition reviewed and examined ? plan and options of management, complexity, risk benefit limitation potential complication, success /failure of management, expected result and recovery discussed ? I spent 30 minutes in the visit, with more than 50% of the total ekgi-ow-bpkt time of the visit in counseling / coordination of care. ? Fahad Russell [facility]06-29-2022 History of Present illness Narrative* Fahad Russell MD - 01/14/2022 4:48 PM EDT BREAST RECONSTRUCTION EVALUATION CC: Tenisha Hancock is a 46 year old female that presents today for breast reconstruction evaluation. 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 in [place] is her breast surgeon. 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 Tenisha Hancock was given supplemental information on [...] Past Histories independently gathered by the clinical technical support professional and the remaining scribed note accurately describes my personal service to the patient. patient's condition reviewed and examined plan and options of management, complexity, risk benefit limitation potential complication, success/failure of management, expected result and recovery discussed I spent 30 minutes in the visit, with more than 50% of the total bkij-ms-ypsy time of the visit in counseling / coordination of care. Fahad Russell MD documented in this encounterMadison Health06-08-2022 Progress note Author Heber Whipplechoctaw general hospitalamanda [facility] December 24, 2021 8:46pm Note Date/Time December 24, 2021 3:07p [facility] [place] [address] Hem/Onc Follow Up Note - OP Signed Patient: Tenisha Hancock MR#: [id number] : 1975 Acct:[id number] Age/Sex: 46 / F Type: REG RCR Copies to: MD Uriel Wilson DO Kim E Knight, MD~ Subjective Date/Time of Service: Date of Service: 12/24/2021 Time of Service: 15:07 Chief Complaint: Patient is here for a 3 week follow up [facility] labs for review. Has multiple questions today. [...] Simons and has an appointment scheduled at [facility] to discuss josep flap surgery as [...] overall good. BRCA testing was done through [facility] and is negative. She does have left [...] I willdefer to his impression and recommendations. 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 This is a 46-year-old female who works at [employer] with triple negative breast cancer, referred for neoadjuvant chemotherapy. Mammogramon on April 22, 2021 showed 3 new focal masses with the largest measuring 2 cm in size in the right breast. 2 additional lesions measuring 1 cm and a second 0.9 cm were also seen. The patient was referred for biopsy. Needle biopsy showed triple negative breast cancer, ER negative, IN negative, and H ER 2 -. The patient was referred to Dr. Ismael Red for Gplcwx-r-Mybi which she has had placed. She [facility]. Because of insurance reasons, she will be getting her treatment here at [facility]. She has had echocardiography as well. According the patient an MRI was obtained prior to neoadjuvant therapy while she was at [facility] we are requesting this prior study. [...] showed triple negative breast cancer, ER negative, IN negative, and HER 2 -. The patient was referred to Dr. Ismael Red for Uhkkdw-c-Trsa which she has had placed. She has [facility]. Because of insurance reasons, she will be getting her treatment here at [facility]. She has had echocardiography as well. [...] cycles --Original breast MRI obtained from [facility] from May 2021, follow-up breast MRI [...] Allergies Allergy (Verified 12/03/21 13:51) Home Medications safyuui-equzxveixytae-bvgweshx 250 mg-250 mg-65 mg tablet (Excedrin Migraine) [...] see in consultation by Dr. Smith at [facility] in [place], [place]; however, due to insurance reasons the patient transferredcare to [facility]. In reviewing notes from her prior [...] do not have records from this from [facility] in [place]. I am requesting this to evaluate her [...] testing returned negative from prior physicians at [facility]. BRCA testing negative Follow-up September is cycle [...] will review her prior MRI from [facility] in May 2021 in comparison to [...] toxicities. MRI was reviewed and [facility] tumor board with Dr. Reza and he [...] for coordination of care (as documented) and vovv-sk-mzch counseling of patient and/or family. Dictated By: Heber Arriaga APRN DD/ 1507 Signed By: <Electronically signed by PETE Arriaga> 12/24/212045 [facility] Work Phone: [phone]) 207-146905-18-2022 Progress note Author Kallie Chang [facility] December 03, 2021 2:19pm Note Date/Time December 03, 2021 2:02p m [facility] [place] [address] Hem/Onc Follow Up Note - OP Signed Patient: Tenisha Hancock MR#: [id number] : 1975 Acct:[id number] Age/Sex: 46 / F Type: REG RCR [...] overall good. BRCA testing was done through [employer] and is negative. She does have left [...] I willdefer to his impression and recommendations. 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 This is a 46-year-old female who works at [employer] with triple negative breast cancer, referred for neoadjuvant chemotherapy. Mammogramon on April 22, 2021 showed 3 new focal masses with the largest measuring 2 cm in size in the right breast. 2 additional lesions measuring 1 cm and a second 0.9 cm were also seen. The patient was referred for biopsy. Needle biopsy showed triple negative breast cancer, ER negative, IN negative, and H ER 2 -. The patient was referred to Dr. Ismael Red for Htzzzj-d-Mgdc which she has had placed. She has seen my colleague Dr. Smith at the [facility] recommended neoadjuvant chemotherapy and immunotherapy. Because of insurance reasons, she will be getting her treatment here at [facility]. She has had echocardiography as well. According the patient an MRI was obtained prior to neoadjuvant therapy while she was at [facility] we are requesting this prior study. [...] showed triple negative breast cancer, ER negative, IN negative, and HER 2 -. The patient was referred to Dr. Ismael Red for Lejlfb-v-Cxpu which she has had placed. She has [facility]. Because of insurance reasons, she will be getting her treatment here at [facility]. She has had echocardiography as well. [...] cycles --Original breast MRI obtained from [facility] from May 2021, follow-up breast MRI [...] Allergies Allergy (Verified 12/03/21 13:51) Home Medications tmtdgpu-trdumgtsozyqz-nzzsknus 250 mg-250 mg-65 mg tablet (Excedrin Migraine) [...] Left breast without masses, left upper chest Ouyksm-b-Mdlw in place and nontender. No axillary fullness [...] % (Auto) 80.1, Lymph % (Auto) 16.3, [place] % (Auto) 2.6, Eos % (Auto) 0.5, Baso % (Auto) 0.5, Neut # (Auto) 6.9, Lymph # (Auto) 1.4, [place] # (Auto) 0.2, Eos # (Auto) 0.0, Baso # (Auto) 0.0, Nucleated RBC % (auto) 0.1, Toxic Granulation Slight, Dohle Bodies Slight, Platelet Estimate Normal, Plt Morphology Comment Normal, RBC Morphology N/A, Macrocytosis Slight, Tear Drop Cells Slight 11/25/21 14:45: PHA Creatinine Clear 105.09, Sodium 137, Potassium 4.2, Vmvxvsqj721, Carbon Dioxide 22.6, BUN 14, Creatinine 0.73, [...] % (Auto) 71.5, Lymph % (Auto) 19.6, [place] % (Auto) 7.6, Eos % (Auto) 0.4, Baso % (Auto) 0.9, Neut # (Auto) 6.2, Lymph # (Auto) 1.7, [place] # (Auto) 0.7, Eos # (Auto) 0.0, [...] see in consultation by Dr. Smith at [facility] in [place], [place]; however, due to insurance reasons the patient transferredcare to [facility]. In reviewing notes from her prior physician [...] do not have records from this from [facility] in [place]. I am requesting this to evaluate her [...] testing returned negative from prior physicians at [facility]. BRCA testing negative Follow-up September is cycle [...] will review her prior MRI from [facility] in May 2021 in comparison to [...] toxicities. MRI was reviewed and [facility] tumor board with Dr. Reza and he [...] for coordination of care (as documented) and nxuk-iy-urvi counseling of patient and/or family. Dictated By: Kallie Chang MD DD/ 1401 Signed By: <Electronically signed by MD Kallie Chang> 12/03/21 [address] [facility] Work Phone: 1(145) 142-577004-28-2022 Progress note Author Kallie Chang [facility] November 13, 2021 3:34pm Note Date/Time November 12, 2021 3:0 7pm [facility] [place] [address] Hem/Onc Follow Up Note - OP Signed Patient: Tenisha Hancock MR#: [id number] : 1975 Acct:[id number] Age/Sex: 46 / F Type: REG RCR [...] overall good. BRCA testing was done through [employer] and is negative. She does have left [...] I willdefer to his impression and recommendations. 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 This is a 46-year-old female who works at [employer] with triple negative breast cancer, referred for neoadjuvant chemotherapy. Mammogramon on April 22, 2021 showed 3 new focal masses with the largest measuring 2 cm in size in the right breast. 2 additional lesions measuring 1 cm and a second 0.9 cm were also seen. The patient was referred for biopsy. Needle biopsy showed triple negative breast cancer, ER negative, IN negative, and H ER 2 -. The patient was referred to Dr. Ismael Red for Jedhoy-b-Xpjx which she has had placed. She has [facility]. Because of insurance reasons, she will be getting her treatment here at [facility]. She has had echocardiography as well. According the patient an MRI was obtained prior to neoadjuvant therapy while she was at [facility] we are requesting this prior study. [...] showed triple negative breast cancer, ER negative, IN negative, and HER 2 -. The patient was referred to Dr. Ismael Red for Qhlqqo-c-Kcxi which she has had placed. She has seen my [facility]. Because of insurance reasons, she will be getting her treatment here at [facility]. She has had echocardiography as well. [...] cycles --Original breast MRI obtained from [facility] from May 2021, follow-up breast MRI [...] Allergies Allergy (Verified 10/22/21 10:19) Home Medications osckkpm-tlagvlxtqfqor-ozestxur 250 mg-250 mg-65 mg tablet (Excedrin Migraine) [...] Left breast without masses, left upper chest Xzyggr-r-Mjxd in place and nontender. No axillary fullness [...] Creatinine Clear 145.60, Sodium 136, Potassium 3.6, Jsjyuvec755, Carbon Dioxide 23.3, BUN 7 L, Creatinine [...] see in consultation by Dr. Smith at [facility] in [place], [place]; however, due to insurance reasons the patient transferredcare to [facility]. In reviewing notes from her prior [...] do not have records from this from [facility] in [place]. I am requesting this to evaluate her [...] testing returned negative from prior physicians at [facility]. BRCA testing negative Follow-up September is cycle [...] will review her prior MRI from [facility] in May 2021 in comparison to [...] toxicities. MRI was reviewed and [facility] tumor board with Dr. Reza and he [...] for coordination of care (as documented) and aukg-tm-ocuf counseling of patient and/or family. Dictated By: Kallie Chang MD DD/ [id number] Signed By: <Electronically signed by MD Kallie Chang> 11/13/21 [address] [facility] Work Phone: 1(461) 473-134904-06-2022 Progress note Author Kallie Chang [facility] October 22, 2021 4:22pm Note Date/Time October 22, 2021 10:2 8am [facility] [place] [address] Hem/Onc Follow Up Note - OP Signed Patient: Tenisha Hancock MR#: [id number] : 1975 Acct:[id number] Age/Sex: 46 / F Type: REG RCR [...] overall good. BRCA testing was done through [employer] and is negative. She does have left [...] I willdefer to his impression and recommendations. 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 This is a 46-year-old female who works at [employer] with triple negative breast cancer, referred for neoadjuvant chemotherapy. Mammogramon on April 22, 2021 showed 3 new focal masses with the largest measuring 2 cm in size in the right breast. 2 additional lesions measuring 1 cm and a second 0.9 cm were also seen. The patient was referred for biopsy. Needle biopsy showed triple negative breast cancer, ER negative, IN negative, and H ER 2 -. The patient was referred to Dr. Ismael Red for Anzzod-e-Krjd which she has had placed. She has [facility]. Because of insurance reasons, she will be getting her treatment here at [facility]. She has had echocardiography as well. According the patient an MRI was obtained prior to neoadjuvant therapy while she was at [facility] we are requesting this prior study. [...] showed triple negative breast cancer, ER negative, IN negative, and HER 2 -. The patient was referred to Dr. Ismael Red for Rbsrds-t-Ngad which she has had placed. She has seen my [facility]. Because of insurance reasons, she will be getting her treatment here at [facility]. She has had echocardiography as well. [...] cycles --Original breast MRI obtained from [facility] from May 2021, follow-up breast MRI [...] Allergies Allergy (Verified 10/22/21 10:19) Home Medications ovxdtpj-ytichwubcwhri-gmdbuapy 250 mg-250 mg-65 mg tablet (Excedrin Migraine) [...] lymphadenopathy. Left breast withoutmasses, left upper chest Xcsrii-k-Ryml in place and nontender. No axillary fullness [...] H, MCHC 33.7, RDW 16.7 H, Plt Turqk250 L, MPV 7.1, Nucleated RBC % (auto) [...] 2 FOLLOW UP: IMM Impression dictated by: Dave Morataya Jr.OSavanah10/13/2021 3:12 PM - Other Results Results/Comments: Date of Service: 10/14/21 [facility] echo transthoracic: monitoring for chemotherapy Interpretation [...] see in consultation by Dr. Smith at [facility] in [place], [place]; however, due to insurance reasons the patient transferredcare to [facility]. In reviewing notes from her prior physician [...] do not have records from this from [facility] in [place]. I am requesting this to evaluate her [...] testing returned negative from prior physicians at [facility]. BRCA testing negative Follow-up September is cycle [...] will review her prior MRI from [facility] in May 2021 in comparison to [...] toxicities. MRI was reviewed and [facility] tumor board with Dr. Reza and he [...] management Moderate complexity visit for discussion and [facility] tumor board, review of MRI and [...] for coordination of care (as documented) and mzoo-qx-idvu counseling of patient and/or family. Dictated By: Kallie Chang MD DD/ [id number] Signed By: <Electronically signed by MD Kallie Chang> 10/22/[address] [facility] Work Phone: 1(480) 228-459703-24-2022 Progress note Author Kallie Chang [facility] [facility] October 09, 2021 2:48pm Note Date/Time October 08, 2021 11: 37am [facility] at [address] [address] Hem/Onc Follow Up Note - OP Signed Patient: Tenisha Hancock MR#: [id number] : 1975 Acct:[id number] Age/Sex: 46 / F Type: REG RCR [...] overall good. BRCA testing was done through [employer] and is negative. She does have left [...] I willdefer to his impression and recommendations. 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 This is a 46-year-old female who works at [employer] with triple negative breast cancer, referred for neoadjuvant chemotherapy. Mammogramon on April 22, 2021 showed 3 new focal masses with the largest measuring 2 cm in size in the right breast. 2 additional lesions measuring 1 cm and a second 0.9 cm were also seen. The patient was referred for biopsy. Needle biopsy showed triple negative breast cancer, ER negative, IN negative, and H ER 2 -. The patient was referred to Dr. Ismael Red for Tvuynf-n-Rohv which she has had placed. She has seen my colleague Dr. Smith at the [facility] recommended neoadjuvant chemotherapy and immunotherapy. Because of insurance reasons, she will be getting her treatment here at [facility]. She has had echocardiography as well. According the patient an MRI was obtained prior to neoadjuvant therapy while she was at [facility] we are requesting this prior study. [...] showed triple negative breast cancer, ER negative, IN negative, and HER 2 -. The patient was referred to Dr. Ismael Red for Jkbtwy-p-Sgho which she has had placed. She has seen my colleague Dr. Smith at the [facility] recommended neoadjuvant chemotherapy and immunotherapy. Because of insurance reasons, she will be getting her treatment here at [facility]. She has had echocardiography as well. [...] cycles --Original breast MRI obtained from [facility] from May 2021, follow-up breast MRI [...] PO Q6H PRN 07/03/21 [History Confirmed 10/08/21] fmjmwum-ppqhljjnhqcra-oohgpbkd 250 mg-250 mg-65 mg tablet (Excedrin Migraine) [...] Left breast without masses, left upper chest Hgglcg-u-Rdrw in place and nontender. No axillary fullness [...] Creatinine Clear 110.24, Sodium 136, Potassium 3.7, Risafsya849, Carbon Dioxide 22.8, BUN 7 L, Creatinine [...] % (Auto) 65.5, Lymph % (Auto) 30.1, [place] % (Auto) 3.7, Eos % (Auto) 0.4, Baso % (Auto) 0.3, Neut # (Auto) 4.0, Lymph # (Auto) 1.8, [place] # (Auto) 0.2, Eos # (Auto) 0.0, [...] see in consultation by Dr. Smith at [facility] in [place], [place]; however, due to insurance reasons the patient [facility]care [facility]. In reviewing notes from her prior [...] do not have records from this from [facility] in [place]. I am requesting this to evaluate her [...] testing returned negative from prior physicians at [facility]. BRCA testing negative Follow-up September is cycle [...] will review her prior MRI from [facility] in May 2021 in comparison to [...] for coordination of care (as documented) and efnm-kv-tdbj counseling of patient and/or family. Dictated By: Kallie Chang MD DD/ [id number] Signed By: <Electronically signed by MD Kallie Chang> 10/09/[address] [facility] Work Phone: 1([phone]) 947-151303-09-2022 Progress note Author Kallie Chang [facility] September 24, 2021 11:25am Note Date/Time September 24, 2021 8:11 am [facility] at [place] [id number] Hem/Onc Follow Up Note - OP Signed Patient: Tenisha Hancock MR#: [id number] : 1975 Acct:[id number] Age/Sex: 46 / F Type: REG RCR [...] overall good. BRCA testing was done through [employer] and is negative. She does have left [...] I willdefer to his impression and recommendations. 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 This is a 46-year-old female who works at [employer] with triple negative breast cancer, referred for neoadjuvant chemotherapy. Mammogramon on April 22, 2021 showed 3 new focal masses with the largest measuring 2 cm in size in the right breast. 2 additional lesions measuring 1 cm and a second 0.9 cm were also seen. The patient was referred for biopsy. Needle biopsy showed triple negative breast cancer, ER negative, IN negative, and H ER 2 -. The patient was referred to Dr. Ismael Red for Axgnnz-a-Msay which she has had placed. [facility]. Because of insurance reasons, she will be getting her treatment here at [facility]. She has had echocardiography as well. According the patient an MRI was obtained prior to neoadjuvant therapy while she was at [facility] we are requesting this prior study. [...] showed triple negative breast cancer, ER negative, IN negative, and HER 2 -. The patient was referred to Dr. Ismael Red for Rejfkr-n-Tggy which she has had placed. She has [facility]. Because of insurance reasons, she will be getting her treatment here at [facility]. She has had echocardiography as well. [...] PO Q6H PRN 07/03/21 [History Confirmed 09/24/21] nitanvr-jrlsmhonkqokx-uavpniwh 250 mg-250 mg-65 mg tablet (Excedrin Migraine) [...] Left breast without masses, left upper chest Vbbgoh-c-Dvzy in place and nontender. No axillary fullness [...] Impressions We will request outside MRI from [facility] from baseline. - Other Results Results/Comments: Prior notes from [facility] CT scan showed echocardiogram 06/19/2021 [...] see in consultation by Dr. Smith at [facility] in [place], [place]; however, due to insurance reasons the patient transferredcare [facility]. In reviewing notes from her prior physician [...] do not have records from this from [facility] in [place]. I am requesting this to evaluate her [...] testing returned negative from prior physicians at [facility]. BRCA testing negative Today in follow-up September [...] for coordination of care (as documented) and frwf-xv-loic counseling of patient and/or family. Dictated By: Kallie Chang MD DD/ 0810 Signed By: <Electronically signed by MD Kallie Chang> 09/24/21 [address] [facility] Work Phone: 1(380) 683-262802-28-2022 Evaluation note* Encounter Date Diagnosis Assessment Notes [...] Aug, 2021 Cervical spondylosis (ICD-10 - M47.812) [employer] Other 02-02-2022 Progress note Author Salbador Phoenix [facility] August 20, 2021 2:47pm Note Date/Time August 20, 2021 2 :45pm [facility] [place] [address] Hem/Onc Follow Up Note - OP Signed Patient: Tenisha Hancock MR#: [id number] : 1975 Acct:[id number] Age/Sex: 46 / F Type: REG RCR [...] overall good. BRCA testing was done through [employer] and is negative. She does have left [...] I willdefer to his impression and recommendations. [place]: This is a 46 year old female, [...] showed triple negative breast cancer, ER negative, IN negative, and HER 2-. The patient was referred to Dr. Ismael Red for Oiufhg-m-Sydf which she has had placed. She has [facility]. Because of insurance reasons, she will be getting her treatment here at [facility]. She has had echocardiography as well. [...] 10 point review of systems is negative. [facility] - Medical History Medical History: Medical History [...] PO Q6H PRN 07/03/21 [History Confirmed 08/20/21] jgnckcc-kdiwyauxljsha-qdsiioey 250 mg-250 mg-65 mg tablet (Excedrin Migraine) [...] % (Auto) 58.0, Lymph % (Auto) 36.6, [place] % (Auto) 3.9, Eos % (Auto) 1.0, Baso % (Auto) 0.5, Neut # (Auto) 3.2, Lymph # (Auto) 2.0, [place] # (Auto) 0.2, Eos # (Auto) 0.1, [...] see in consultation by Dr. Smith at [facility] in [place], [place]; however, due to insurance reasons the patient transferredcare to [facility]. She commenced neoadjuvant Carboplatin/Paclitaxel/Pembrolizumab therapy on 07/22/2021; [...] for coordination of care (as documented) and mrfx-rm-jftq counseling of patient and/or family. Dictated By: Salbador Phoenix MD DD/ 40 Signed By: <Electronically signed by MD Salbador Phoenix> 08/20/211446 [facility] Work Phone: 1([phone]) 418-909201-13-2022 Progress note Author Jazmin Monsivais [facility] July 31, 2021 3:54pm Note Date/Time July 31, 2021 3 :07pm [facility] at [place] [id number] Hem/Onc Follow Up Note - OP Signed Patient: Tenisha Hancock MR#: [id number] : 1975 Acct:[id number] Age/Sex: 46 / F Type: REG RCR [...] showed triple negative breast cancer, ER negative, IN negative, and HER 2 -. The patient was referred to Dr. Ismael Red for Ededki-l-Lblq which she has had placed. She has [facility]. Because of insurance reasons, she will be getting her treatment here at [facility]. She has had echocardiography as well. [...] 10 point review of systems is negative. [facility] - Medical History Medical History: Medical History [...] PO Q6H PRN 07/03/21 [History Confirmed 07/31/21] ckmtgis-aqgnduvoaijwf-cihhzsqj 250 mg-250 mg-65 mg tablet (Excedrin Migraine) [...] 8 mg PO Q8H PRN #30 tab 12/21/21 [Rx Confirmed 07/31/21] prochlorperazine maleate 10 mg [...] 07/16/21 12:50 Outside Labs: Outside labs from [facility] scanned in chart; no significant cytopenias or abnormalities (WBC- 8.0; Hgb 12.0; normal platelets; Normal electrolytes; renal/hepatic fxn) Assessment and Plan (1) Breast cancer Patient is a 46-year-old female presenting with 3 discernible masses by mammography (04/22/2021) with needle biopsy confirming triple negative breast cancer. She was initially see in consultation by Dr. Smith at [facility] in [place], [place]; however, due to insurance reasons the patient transferredcare to [facility]. She commenced neoadjuvant Carboplatin/Paclitaxel/Pembrolizumab therapy on 07/22/2021; [...] chest/abdomen/pelvis on 07/16/2021 here at [facility]. There was no obvious evidence of distant [...] [facility] She has ongoing issues with [...] for coordination of care (as documented) and xwmr-an-wanr counseling of patient and/or family. Dictated By: Jazmin Monsivais APRN DD/ 1454 Signed By: <Electronically signed by PETE Monsivais> 07/31/21 1554 [facility] Work Phone: 1([phone]) 989-493701-13-2022 Hospital Discharge instructionsAmbulatory Orders* Imaging on Disk Time Frame: 1 Day, Location: Determined By Patient * RISE Order Time Frame: 07/31/21, Location: Determined By Patient [facility] Work Phone: 1([phone]) 371-973212-28-2021 Progress note Author Salbadro Phoenix [facility] July 15, 2021 1:32pm Note Date/Time July 15, 2021 1:28pm [facility] [place] [address] Hem/Onc Follow Up Note - OP Signed Patient: Tenisha Hancock MR#: [id number] : 1975 Acct:[id number] Age/Sex: 46 / F Type: REG RCR [...] is a 46-year-old female who works at [employer] who was referred here with [...] showed triple negative breast cancer, ER negative, IN negative, and H ER 2 -. The patient was referred to Dr. Ismael Red for Wjghzj-d-Scas which she has had placed. She has seen my colleague Dr. Smith at the [facility] who recommended neoadjuvant chemotherapy and immunotherapy. Because of insurance reasons, she will be getting her treatment here at [facility]. She has had echocardiography as well. [...] PO Q6H PRN 07/03/21 [History Confirmed 07/15/21] cosmbsn-smpybgevmctpm-izticcjw 250 mg-250 mg-65 mg tablet (Excedrin Migraine) [...] % (Auto) 68.7, Lymph % (Auto) 25.5, [place] % (Auto) 3.9, Eos % (Auto) 1.0, Baso % (Auto) 0.9, Neut # (Auto) 6.9, Lymph # (Auto) 2.6, [place] # (Auto) 0.4, Eos# (Auto) 0.1, Baso [...] July 29, 2021. The patient has her Cdoonh-g-Riim and and has had echocardiography. We will [...] for coordination of care (as documented) and hcfg-ek-qllj counseling of patient and/or family. Dictated By: Salbador Phoenix MD DD/ 1327 Signed By: <Electronically signed by MD Salbador Phoenix> 07/15/[address] [facility] Work Phone: 1(261) 182-834612-21-2021 Consult note Author Salbador Phoenix [facility] July 08, 2021 3:14pm Note Date/Time July 08, 2021 2:58pm [facility] [place] [address] Hem/Onc Consult Note - OP Signed Patient: Tenisha Hancock MR#: [id number] : 1975 Acct:[id number] Age/Sex: 46 / F Type: REG RCR [...] is a 46-year-old female who works at [employer] who is referred here with [...] showed triple negative breast cancer, ER negative, IN negative, and H ER 2 -. The patient was referred to Dr. Ismael Red for Ypyfmu-f-Gyti which she has had placed. She has seen my colleague Dr. Smith at the [facility] who recommended neoadjuvant chemotherapy and immunotherapy. Because of insurance reasons, she will be getting her treatment here at [facility]. She has had echocardiography as well. She does have a palpable breast mass. It is in the lower mid quadrant of the right breast. [facility] - Medical History Medical History: Medical History [...] PO Q6H PRN 07/03/21 [History Confirmed 07/08/21] ojupwyt-gphpednpxukqn-jwommwfm 250 mg-250 mg-65 mg tablet (Excedrin Migraine) [...] cancer. She has seen medical oncology at [facility] who has recommended neoadjuvant chemotherapy and [...] at this time. The patient has her Nwttjd-e-Cysu and and has had echocardiography. We will refer her for chemotherapy education and literature. She was requesting PET scan which is reasonable. I will also recommend genetic testing which can be done through [employer]. Our treatment plan will be pembrolizumab every [...] for coordination of care (as documented) and uuwu-ug-hlqm counseling of patient and/or family. Dictated By: Salbador Phoenix MD DD/ 1457 Signed By: <Electronically signed by MD Salbador Phoenix> 07/08/[address] [facility] Work Phone: Consult note Author [facility] March 19, 2022 10:56am Note Date/Time March 18, 2022 3: 31pm [facility] [place] [address] Rad Onc Consult Note - OP Signed Patient: Tenisha Hancock MR#: [id number] : 1975 Acct:[id number] Age/Sex: 46 / F Type: REG RCR [...] 0 out of 5 lymph nodes involved. [id number]. 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 Per the available notes her BRCA testing was done through [employer] and was negative. Also appears the right breast mass was palpable in the lower mid quadrant of the breast. [facility]. Due to insurance reasons she received her systemic therapy here at [facility]. PET/CT was denied by insurance. CT scan of the chest abdomen pelvis on July 16, 2021 was negative for metastatic disease. Her clinical stage at presentation was cT2N0. June 11, 2021 patient did undergo an MRI in [place]. I do not have that report available [...] 0 out of 5 lymph nodes negative. [id number]. Pathology was negative for LVSI. Of note [...] work. Has no other breast related complaints. [facility] - Medical History Medical History: Medical History [...] Allergies Allergy (Verified 03/12/22 08:56) Home Medications omlrpix-bliifhebftfhi-gypjwsqv 250 mg-250 mg-65 mg tablet (Excedrin Migraine) [...] 13:31 Dictated By: Stacie Thomas MD DD/ 5102 Signed By: <Electronically signed by Stacie Thomas MD> 03/19/22 1056 [facility] Work Phone: Evaluation + Plan note No data available for this section General Surgery [place] Evaluation note* Diagnosis History of breast cancer- Primary Personal history of malignant neoplasm of breast Breast asymmetry following reconstructive surgery Disproportion of reconstructed breast Malignant neoplasm of right female breast, unspecified estrogen receptor status, unspecified site of breast (HCC)- [facility] Diagnosis Malignant neoplasm of right female breast, unspecified estrogen receptor status, unspecified site of breast (HCC) documented in this encounter [employer] Phone: evaluation note* Diagnosis Status post breast reconstruction- Primary Breast replaced by other means Status post breast lumpectomy Other postprocedural status Abnormal mammogram Abnormal mammogram, unspecified Malignant neoplasm of right female breast, unspecified estrogen receptor status, unspecified site of breast (HCC) documented in this encounter [employer] Phone: evalkglxlo note* Diagnosis Malignant neoplasm of right female breast, unspecified estrogen receptor status, unspecified site of breast (HCC) documented in this encounter [employer] Phone: evalwrfwns note* Diagnosis Onset Date Resolution Status Breast cancer chronic Encounter for antineoplastic immunotherapy chronic Encounter for chemotherapy management chronic 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 Chemotherapy-induced neutropenia resolved [facility] [employer] Work Phone: Evaluation note* Diagnosis Onset Date Resolution Status 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 acute Arthralgia of multiple sites, bilateral acute Encounter for coordination of complex care acute Breast cancer chronic Encounter for antineoplastic immunotherapy chronic Encounter for chemotherapy management chronic 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 Chemotherapy-induced neutropenia resolved [facility] [employer] Work Phone: Evaluation note* Diagnosis Onset Date Resolution Status 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 chronic Arthralgia of multiple sites, bilateral chronic Breast cancer chronic Encounter for antineoplastic immunotherapy chronic Encounter for chemotherapy management chronic Encounter for coordination of complex care chronic 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 Chemotherapy-induced neutropenia resolved [facility] Work Phone: Evaluation note* Diagnosis Onset Date Resolution Status 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 chronic Breast cancer chronic Encounter for antineoplastic immunotherapy chronic Encounter for chemotherapy management chronic Encounter for coordination of complex care chronic 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 Arthralgia of multiple sites, bilateral resolved Chemotherapy-induced neutropenia resolved [facility] Work Phone: Evaluation note* Diagnosis Onset Date Resolution Status Hypothyroidism (acquired) ac nikolski 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 chronic Breast cancer chronic Encounter for antineoplastic immunotherapy chronic Encounter for chemotherapy management chronic Encounter for coordination of complex care chronic 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 Arthralgia of multiple sites, bilateral resolved Chemotherapy-induced neutropenia resolved [facility] Work Phone: Evaluation noteNo assessment information available [facility] Work Phone: evaluation note* Diagnosis Left wrist pain- Primary Pain in joint, forearm Pain of left thumb documented [facility] N[facility] - Reported* Type Description Date Medical History GERD (gastroesophageal reflux di sease) Medical History Depression Medical History Breast Cancer Surgical History gallbladder Surgical History Foot Surgery Hospitalization History gallbladder [employer] [facility] Work Phone[facility] Work Phone: Hospital Discharge instructionsAmbulatory Orders* RISE Order Time Frame: 1 Day, Location: Determined By Patient [facility] Work Phone: Hospital Discharge instructions No data available for this section General Surgery [place] Progress note Author Kallie Chang [facility] March 12, 2022 4:36pm Note Date/Time March 12, 2022 9: 49am [facility] at [address] [address] Hem/Onc Follow Up Note - OP Signed Patient: Tenisha Hancock MR#: [id number] : 1975 Acct:[id number] Age/Sex: 46 / F Type: REG RCR [...] right mastopexy on 02/17/2022 [address] Drs. Saunders/Drew ([facility]). Her pathology returned with no evidence of [...] Simons and has an appointment scheduled at [facility] to discuss josep flap surgery as [...] overall good. BRCA testing was done through [employer] and is negative. She does have left [...] I willdefer to his impression and recommendations. 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 This is a 46-year-old female who works at [employer] with triple negative breast cancer, referred for neoadjuvant chemotherapy. Mammogramon on April 22, 2021 showed 3 new focal masses with the largest measuring 2 cm in size in the right breast. 2 additional lesions measuring 1 cm and a second 0.9 cm were also seen. The patient was referred for biopsy. Needle biopsy showed triple negative breast cancer, ER negative, IN negative, and H ER 2 -. The patient was referred to Dr. Ismael Red for Tlagoj-p-Agkg which she has had placed. [facility]. Because of insurance reasons, she will be getting her treatment here at [facility]. She has had echocardiography as well. According the patient an MRI was obtained prior to neoadjuvant therapy while she was at [facility] we are requesting this prior study. [...] showed triple negative breast cancer, ER negative, IN negative, and HER 2 -. The patient was referred to Dr. Ismael Red for Bbvweg-z-Acpu which she has had placed. She has seen my colleague Dr. Smith at the [facility] recommended neoadjuvant chemotherapy and immunotherapy. Because of insurance reasons, she will be getting her treatment here at [facility]. She has had echocardiography as well. [...] cycles --Original breast MRI obtained from [facility] from May 2021, follow-up breast MRI [...] preoperatively in late December. 2. 02/17/2022 at [facility], Drs. Saunders/Drew: needle localized lumpectomy with oncoplastic [...] History (Last Reviewed 03/12/22 @ 16:28 by Klalie Chang MD) Arthritis COVID-19 Headache High blood [...] Allergies Allergy (Verified 03/12/22 08:56) Home Medications jobxlqw-lrgtzfjoouxch-tvijayqv 250 mg-250 mg-65 mg tablet (Excedrin Migraine) [...] therapy Copies to: MD Meghana Wilson MD, [facility]~ Weight: 196 lb Performed By: ARNOLD [...] see in consultation by Dr. Smith at [facility] in [place], [place]; however, due to insurance reasons the patient transferredcare to [facility]. In reviewing notes from her prior physician [...] do not have records from this from [facility] in [place]. I am requesting this to evaluate her [...] testing returned negative from prior physicians at [facility]. BRCA testing negative Follow-up September is cycle [...] will review her prior MRI from [facility] in May 2021 in comparison to [...] toxicities. MRI was reviewed and [facility] tumor board with Dr. 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 Referring for adjuvant radiation then we [...] for coordination of care (as documented) and azhj-jw-egfl counseling of patient and/or family. Dictated By: Kallie Chang MD DD/ [id number] Signed By: <Electronically signed by MD Kallie Chang> 03/12/[address] [facility] Work Phone: Progress note Author Kallie Chang [facility] September 18, 2022 10:28pm Note Date/Time September 18, 2022 1:44 pm [facility] [place] [address] Hem/Onc Follow Up Note - OP Signed Patient: Tenisha Hancock MR#: [id number] : 1975 Acct:[id number] Age/Sex: 47 / F Type: REG RCR [...] hydrocortisone 20mg am/10mg pm. Will f/u with SEMI CONDUCTOR ASSEMBLER next week to review symptoms. We may [...] right mastopexy on 02/17/2022 by Drs. Saunders/Drew ([facility]). Her pathology returned with no evidence of [...] Simons and has an appointment scheduled at [facility] to discuss josep flap surgery as [...] overall good. BRCA testing was done through [employer] and is negative. She does have left [...] I willdefer to his impression and recommendations. 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 This is a 46-year-old female who works at [employer] with triple negative breast cancer, referred for neoadjuvant chemotherapy. Mammogramon on April 22, 2021 showed 3 new focal masses with the largest measuring 2 cm in size in the right breast. 2 additional lesions measuring 1 cm and a second 0.9 cm were also seen. The patient was referred for biopsy. Needle biopsy showed triple negative breast cancer, ER negative, IN negative, and H ER 2 -. The patient was referred to Dr. Ismael Red for Mfhdlh-h-Cykz which she has had placed. She has seen my colleague Dr. Smith at the [facility] recommended neoadjuvant chemotherapy and immunotherapy. Because of insurance reasons, she will be getting her treatment here at [facility]. She has had echocardiography as well. According the patient an MRI was obtained prior to neoadjuvant therapy while she was at [facility] we are requesting this prior study. [...] showed triple negative breast cancer, ER negative, IN negative, and HER 2 -. The patient was referred to Dr. Ismael Red for Ceereu-t-Vstu which she has had placed. She has seen my colleague Dr. Smith at the [facility] recommended neoadjuvant chemotherapy and immunotherapy. Because of insurance reasons, she will be getting her treatment here at [facility]. She has had echocardiography as well. [...] cycles --Original breast MRI obtained from [facility] from May 2021, follow-up breast MRI [...] preoperatively in late December. 2. 02/17/2022 at [facility], Drs. Saunders/Shantal: needle localized lumpectomy with oncoplastic [...] Allergies Allergy (Verified 09/18/22 13:38) Home Medications jixfmke-dqzrdkeumenyr-rrubflca 250 mg-250 mg-65 mg tablet (Excedrin Migraine) [...] % (Auto) 91.1, Lymph % (Auto) 6.2, [place] % (Auto) 2.3, Eos % (Auto) 0.1, Baso % (Auto) 0.3, Nucleat RBC Rel Count 0.1, Neut # (Auto) 10.4 H, Lymph # (Auto) 0.7 L, [place] # (Auto) 0.3, Eos # (Auto) 0.0, [...] see in consultation by Dr. Smith at [facility] in [place], [place]; however, due to insurance reasons the patient transferredcare to [facility]. In reviewing notes from her prior [...] do not have records from this from [facility] in [place]. I am requesting this to evaluate her [...] testing returned negative from prior physicians at [facility]. BRCA testing negative Follow-up September is cycle [...] will review her prior MRI from [facility] in May 2021 in comparison to [...] toxicities. MRI was reviewed and [facility] tumor board with Dr. 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 Completed adjuvant radiation then we resumed [...] with sentinel lymph node biopsy 02/17/2022 in [place]. Adjuvant radiation completed 05/04-06/16/2022. Total of 30 [...] for coordination of care (as documented) and negb-en-uxbf counseling of patient and/or family. Dictated By: Kallie Chang MD DD/ [id number] Signed By: <Electronically signed by MD Kallie Chang> 09/18/[address] [facility] Work Phone: Progress note No data available for this section General Surgery [place] Reason for visit NarrativeReferral Dr. [place] T12 [facility] [employer] Other Summary Purpose Family History No Family History Records Found Relationship Condition Age at Onset Recorded Date/T vanessa brother Malignant neoplasm of lung Unknown father Malignant neoplasm Unknown Not Specified Chronic obstructive pulmonary disease Un known Relationship Condition Age at Onset Recorded Date/T vanessa brother Malignant neoplasm of lung Unknown father Malignant neoplasm Unknown Not Specified Chronic obstructive pulmonary disease Un known Unknown Advance Directives No Advanced Directives Records Found Advance Directive Response Recorded Date/ Time Advance Directives No July 24, 2020 3:25pm Advance Directive Response Recorded Date/ Time Advance Directives No July 24, 2020 2:25pm Reason for Referral Specialty Diagnoses / Procedures Referred By Contabel t Referred To Contact Radiology Diagnoses Malignant neoplasm of right female breast, unspecified estrogen receptor status, unspecified site of breast (HCC) Procedures MRI BREAST BILATERAL W WO CONTRAST Diana Murguia P, DO [address] [place] [address] Referral ID Status Reason Start Date Expiration Date Visits Re quested Visits Authorized [id number] Closed 02/03/2022 01/28/2023 1 1 Chief Complaint [...] multiple sites, bilateral Chemotherapy-induced neutropenia Chief Complaint r92.8 Additional Source Comments Source Comments (unrecognize d section and content) In the event this informatio n is protected by the Federal Confidentiality of Alcohol and Drug Abuse Patient Records regulations: The Federal rules restrict any use of the information to criminally investigate or prosecute any alcohol or drug abuse patient.[facility] HealthIn the event this information is protected by the Federal Confidentiality of Alcohol and Drug Abuse Patient Records regulations: The Federal rules restrict any use of the information to criminally investigate or prosecute any alcohol or drug abuse patient.[facility] HealthIn the event this information is protected by the Federal Confidentiality of Alcohol and Drug Abuse Patient Records regulations: The Federal rules restrict any use of the information to criminally investigate or prosecute any alcohol or drug abuse patient.[facility] HealthIn the event this information is protected by the Federal Confidentiality of Alcohol and Drug Abuse Patient Records regulations: The Federal rules restrict any use of the information to criminally investigate or prosecute any alcohol or drug abuse patient.[facility] Reason for Visit (unrecogniz ed section and content) Reason Comments Appointment Reason Comments Consult Specialty Diagnoses / Procedures Referred By Ramirez t Referred To Contact Radiology Diagnoses Malignant neoplasm of right female breast, unspecified estrogen receptor status, unspecified site of breast (HCC) Procedures MRI BREAST BILATERAL W WO CONTRAST Diana Murguia P, DO [address] [place] [address] Referral ID Status Reason Start Date Expiration Date Visits Re quested Visits Authorized [id number] Closed 02/03/2022 01/28/2023 1 1 Specialty Diagnoses / Procedures Referred By Ramirez t Referred To Contact Diagnoses Malignant neoplasm of right female breast, unspecified estrogen receptor status, unspecified site of breast (HCC) Malignant neoplasm of right female breast, unspecified estrogen receptor status, unspecified site of breast (HCC) [C50.911] Procedures IN MASTECTOMY, PARTIAL IN OFFICE/OUTPT VISIT,PROCEDURE ONLY IN BREAST REDUCTION NEEDLE DIRECTED @ 800 RIGHT BREAST LUMPECTOMY WITH SENTINEL NODE BIOPSY @ 830 WITH FROZEN SECTION AND POSSIBLE AXILLARY LYMPH NODE DISSECTION ONCOPLASTIC RECONSTRUCTION RIGHT BREAST WITH JOSE R INCISIONAL VAC AND PEC BLOCK Diana Murguia P, DO [address] [place] [address] [facility] [employer] [address] [place] [address] Referral ID Status Reason Start Date Expiration Date Visits Re quested Visits Authorized [id number] 1 1 Specialty Diagnoses / Procedures Referred By Ramirez t Referred To Contact Diagnoses Malignant neoplasm of unspecified site of right female breast Procedures HC NM LYMPHATICS,LYMPH GLAND IMAGING [facility] [address] [place] [address] [employer] [address] [place] [address] Referral ID Status Reason Start Date Expiration Date Visits Re quested Visits Authorized [id number] 1 1 Care Teams (unrecognized sec tion [...] Active Kallie Chang MD Attending Provider Active Heating And Ventilation Engineer Relationship Specialty Start Date End Date Jasbir Limon MD [address] [place] [address] (Fax) PCP - General 10/28/00 Heating And Ventilation Engineer Relationship Specialty Start Date End Date Jasbir Limon MD [address] [place] [address] PCP - General 10/28/00 Heating And Ventilation Engineer Relationship Specialty Start Date End Date Jasbir Limon MD [address] [place] [address] (Fax) PCP - General 10/28/00 Heating And Ventilation Engineer Relationship Specialty Start Date End Date Eliel Hurd [address] [id number] PCP - General Specialist 02/04/22 Heating And Ventilation Engineer Relationship Specialty Start Date End Date Eliel Hurd [address] [id number] PCP - General Specialist 02/04/22 Heating And Ventilation Engineer Relationship Specialty Start Date End Date Eliel Hurd [address] [id number] PCP - General Specialist 02/04/22 Team Status: [...] Active Adam Vickers DO Attending Provider Active Heating And Ventilation Engineer Relationship Specialty Start Date End Date Shaikh España MD PCP - General Internal Medicine 11/24/22 Team Status: Active Member Role Status Dates Shaikh Patria MD Primary Care Provider Active Team Status: Inactive Member Role Status Chidi Rincon Attending Provider Active Start: 2023 End: January 10, 2024 Shaikh Patria MD Primary Care Provider Active Start: January 10, 2024 End: January 10, 2024 INFORMATION SOURCE (unrecogn ized section and content) DATE CREATED AUTHOR 02/03/2022 [facility] DATE CREATED AUTHOR AUTHOR'S ORGANIZ ATION 02/21/2022 [facility] DATE CREATED AUTHOR AUTHOR'S ORGANIZ ATION 03/24/2022 [facility] DATE CREATED AUTHOR AUTHOR'S ORGANIZ ATION 12/02/2022 [facility] DATE CREATED AUTHOR AUTHOR'S ORGANIZ ATION 03/09/2023 [facility] DATE CREATED AUTHOR AUTHOR'S ORGANIZ ATION 12/24/2023 [facility] DATE CREATED AUTHOR AUTHOR'S ORGANIZ ATION 01/16/2024 [facility] DATE CREATED AUTHOR AUTHOR'S ORGANIZ ATION 02/06/2024 [facility] DATE CREATED AUTHOR AUTHOR'S ORGANIZ ATION 03/11/2024 [facility] DATE CREATED AUTHOR AUTHOR'S ORGANIZ ATION 03/18/2024 [facility] Ordered Prescriptions (unrec ognized section and [...] surgery) 1047 (Given - Provid er: Valerie Davila, [employer] - HEALTH CAREERS INSTRUCTOR) diphenhydrAMINE (BENADRYL) injection 12.5 mg (COMPLETED) 12.5 [...] ider: Deloris Alejandra RN)1022 (NoRateChange - Provider: PETE Pereira CRNA)1148 (Paused - Provider: PETE Pereira CRNA - Comment: Switch to gravity)1149 (New Bag - Provider: PETE Pereira CRNA)1318 (Anesthesia Volume Adjustment - Provider: PETE Periera CRNA)1615 (Stopped - Provider: Heber Baron RN) PRN Medication Order 02/15/2022 02/16/2022 [...] PACU only 1453 (Given - Provid er: Heber Baron RN) HYDROmorphone HCl PF (DILAUDID) injection [...] PACU only 1624 (Given - Provid er: Heber Baron RN) sodium chloride flush 0.9 % [...] BE BASED ON THE PRIMARY CLINICAL RECORDS. [facility] [employer] [facility]. provides no warranty or guarantee of the accuracy or completeness of information in this document.
[2024-03-23 14:10] LABS: ACTH, Plasma 6.9 pg/mL (7.2-63.3)
== END 2024-03-22 07:25 | disposition home or self-care (01) ==
LOC: LAB 07:24
PROVIDERS: PCP Internal Medicine
DX: E27.40 Unspecified adrenocortical insufficiency (principal)
CPT/HCPCS: 82024; 82533

== ENCOUNTER 2024-04-17 22:02 | Outpatient (REF) | payer BC, SELFPAY ==
--- OUTSIDE RECORDS SUMMARY | 2024-04-17 22:06 | XMS_ITS | CCD ---
Author Organization [facility] Care Team Providers Care Photographer Lithographic Name Role Phone Jasbir Limon Primary Care Provider [phone] Franco Stokes Unavailable Jasbir Limon MD Primary Care Provider Eliel Hurd Primary Care Provider [phone] CASHEN, DIANA P Admitting Unavailable CASHEN, DIANA P Attending Unavailable ELIEL HURD Primary Care Unavailable SHANTAL, DIANA P Referring Unavailable ELIEL HURD Primary Care Unavailable MD Eliel Hurd Primary Care Provider MD Eliel Hurd Referring Provider MD Kallie Chang Attending Provider NON STAFF Attending Provider Unavailable MD Eliel Hurd Primary Care Provider MD Eliel Hurd Referring Provider [phone] MD Kallie Chang Attending Provider SHANTAL, DIANA P Referring Unavailable ELIEL HURD Primary Care Unavailable ELIEL HURD Primary Care Unavailable SHANTAL, DIANA P Referring Unavailable MD Eliel Hurd Primary Care Provider MD Larissa Saunders Attending Provider MD Eliel Hurd Referring Provider MD Kallie Chang Attending Provider MD Eliel Hurd Primary Care Provider MD Larissa Saunders Attending Provider MD Eliel Hurd Referring Provider [phone] MD Kallie Chang Attending Provider [phone] MD Eliel Hurd Primary Care Provider DO Adam Vickers Attending Provider [phone] MD Eliel Hurd Referring Provider MD Kallie Chang Attending Provider MD Eliel Hurd Referring Provider MD Kallie Chang Attending Provider MD Eliel Hurd Referring Provider MD Kallie Chang Attending Provider MD Eliel Hurd Primary Care Provider MD Eliel Hurd Referring Provider MD Kallie Chang Attending Provider [phone] MD Eliel Hurd Primary Care Provider [phone] MD Eliel Hurd Referring Provider MD Kallie Chang Attending Provider EARNEST HDZ [...] Unavailable VERNELL ., DR FREITAS Attending Unavailable ANGEL FIRE, DR KRISTA Delgado Consulting Unavailable HURD ., DR ELIEL Rouse Primary Care Unavailable VERNELL ., DR FREITAS Admitting Unavailable VERNELL ., DR FREITAS Attending Unavailable VERNELL ., DR FREITAS Consulting Unavailable APLING, BRIEN B Admitting Unavailable SHAIKH Jun ESPAÑA Primary Care Unavailable APLING BRIEN B Attending Unavailable [facility] [place] [place] POTTER Consulting Unavailable HURD ., DR ELIEL Rouse Primary Care Unavailable MONIQUE ., DR KAITLIN Norton Admitting Unavailable MONIQUE ., DR KAITLIN Norton Attending Unavailable GIEDRAITIS, ANDRIUS Admitting Unavailable JUAN RICE Referring Unavailable SHAIKH ESPAÑA Primary Care Unavailable GIEDRAITIS, ANDRIUS Attending Unavailable Gimaximus POZO, Andri Vytautzena Attending Unavailable Elham POZO, Booker Briones Attending Unavailable MD Eliel Hurd Primary Care Provider [phone] MD Eliazar Gibson Attending Provider [phone] Shaikh España MD Primary Care Provider SHAIKH ESPAÑA Primary Care Physician ANABEL SYDNIE Primary Care Unavailable Ismael BERMAN Attending Unavailable Ismael BERMAN Attending Unavailable ANABEL, SYDNIE Primary Care Unavailable Chidi Rincon Attending Provider MD To Españaikh Primary Care Provider [phone] Eliazar Gibson Admitting Unavailable Eliazar Gibson Attending [...] Medication Allergies] Propensity to adverse reactions (disorder) [facility] Repository Medications Current Medications Medication [...] every six hours as needed for headache hqdnwbm-tykboxwgtinqw-jgnvuzrr (EXCEDRIN MIGRAINE) 250-250-65 MG per tablet Take [...] Prolactin normal. No further testing needed. Normal [facility] Telephoneon 03-15-2024 Telephone [id number] Tenisha Hancock 1975 F Date Provider Department [place] 03/15/2024 [id number] BASSETT [facility] ENDOCR [facility] No family history on file Reason for Visit and Comments: Labs [[id number]] Normal [facility] 37on 03-09-2024 37 Please take your [...] intramuscular injection (Solu-Cortef Act-O-Vial): Solu-Cortef Emergency Injection [email or web address] Normal [facility] E2 [Mass/Vol]on 03-09-2024 ESTRADIOL 67.8 pg/mL Normal [facility] Comment on above: Result Comment: NON- FEMALES [...] assay. Performed By: #### 2 842-3, 2243-4, 72941-6 #### [facility] ([id number]) [address], [address] [place] [address] Follitropin Qnon 03-09-2024 FOLLICLE STIM HORMONE 58.1 mIU/mL Normal Pr [facility] Comment on above: Result Comment: NORMAL FEMALE Luteal 1.8-5.1 mIU/mL Follicular 3.8-8.8 mIU/mL Mid Cycle 4.5-22.5 mIU/mL Post Romy 16.7-113.6 mIU/mL Performed By: #### 2 842-3, 2243-4, 11491-3 #### [facility] ([id number]) [address] [place] [address], [address] [place] [address] Office Visiton 03-09-2024 Follow-up visit [id number] Tenisha Hancock 1975 F Date Provider Department Center 03/09/2024 316-JUANCHO, AWA Sequeira [facility] ENDOCR [facility] No family history on file Level of Service:19462 GA OFFICE/OUTPATIENT NEW MODERATE MDM 45 MINUTES Reason for Visit and Comments: New Patient [632] Normal [facility] Prolactin [Mass/Vol]on 03-09 PROLACTIN 4.8 ng/mL Normal 3.3-26.7 [facility] Comment on above: Performed By: #### 2 842-3, 2243-4, 64620-8 #### [facility] ([id number]) [address], [address] [place] [address] MR breast BI wo/w con CADon 01-11-2024 MR breast BI wo/w con CAD [facility] Main [address] [address] MRI Report Signed Patient: Tenisha Hancock MR#: [id number] : 1975 Acct:[id number] Age/Sex: 48 / F ADM Date: 01/10/24 Loc: MR Room: Type: [facility] Attending Dr: Chidi Rincon Copies to: Chidi [...] All imaged data was reviewed using the [employer] system. The postcontrast images were subtracted and [...] Guzman Jr., D.O.01/11/2024 10:59 AM Dictation Location: [place] [address] Transcribed By: [facility] 01/11/24 1059 Dictated By: Jamari Guzman Jr, DO 01/11/24 1047 Signed By: 01/11/24 1059 Normal [facility] Outside Colonoscopyon 2023 Outside Colonoscopy [id number]#1. 00TIFF [facility] Lab Reportson 12-23-2023 Lab Reports [id number]#1. 00TIFF [facility] Reminderson 12-23-2023 Reminders - From: Andie Hodge LPN To: N - Clinical; Sent: 12/23/2023 12:00:00 EDT Show up: 11/20/2033 07:00:00 EDT Subject: colonoscopy recall Due Date/Time: 12/21/2033 07:00:00 EDT Reminder/Recall Patient due for screening colonoscopy 12/21/2033. [facility] Insurance Correspondenceon 0 12-08-2023 Insurance Correspondence [id number]# 1.00TIFF [facility] Consent for Procedure/Surger yon 11-04-2023 Consent for Procedure/Surgery [id number]#1 .00TIFF [facility] Facesheeton 11-04-2023 Facesheet [id number]# 1.00TIFF [facility] Ambulatory Visit Summaryon 0 11-03-2023 Ambulatory Visit [...] for choosing us for your care. Normal [facility] Physician Referralon 024 Physician Referral [id number]#1 .00TIFF Normal [facility] Physician Referralon 024 Physician Referral [id number]#1. 00TIFF Normal [facility] Physician Referralon 023 Physician Referral [id number]#1 .00TIFF Normal [facility] Physician Referralon 023 Physician Referral [id number]#1 .00TIFF Normal [facility] LEONARD Antinuclear Antibodieson 04-07-2023 Antinuclear Abs, IFA Positive Critically abnormal . [facility] Comment on above: Result Comment: Nega tive <1:80 Borderline 1:80 Positive >1:80 Performed By: #### C RP, ESR #### [facility] [address] [place] [address] [place] #### LEONARD #### [facility] , Homogeneous Pattern 1:80 Normal . [facility] Comment on above: Result Comment: ICAP nomenclature: AC-1 Performed By: #### C RP, ESR #### [facility] [address] [place] [address] [place] #### LEONARD #### [facility] , Note 1 Normal . [facility] Comment on above: Result Comment: [...] titers Nucleosomes, Histones Drug-induced SLE Speckled Sm, PROCESS ENVIRONMENTAL TECHNICIAN, SCL-70, SLE,MCTD,PSS (diffuse form), SS-A/SS-B Sjogrens Nucleolar SCL-70, PM-1/SCL High titers Scleroderma, PM/DM Centromere Centromere PSS (limited form) w/Crest syndrome variable Nuclear Dot Sp100,q82-xwbsoq Primary Biliary Cirrhosis Nuclear GP210, Primary Biliary Cirrhosis Membrane scarlett A,B,C Performed at: [address] [id number] Medical Insurance Coder: Red Sena PhD, Phone: [phone] PERFORMED BY: [facility] [place] [address] PATHOLOGIST PST SPECIALIST CHITO HENDRICKS M.D. Performed By: #### C RP, ESR #### [place] [address] [place] #### LEONARD #### [facility] , Speckled Pattern 1:160 High . [facility] Comment on above: Result Comment: ICAP nomenclature: AC-2,4,5,29 Performed By: #### C RP, ESR #### [place] [address] [place] #### LEONARD #### [facility] , C reactive protein [Mass/vol ume] in Serum or PlasmaOrdered By: Eliazar Gibson on 04-07-2023 CRP [Mass/Vol] < 0.5 mg/dL 0.0-0.5 [facility] C-Reactive Proteinon 023 CRP [Mass/Vol] mg/L Normal 0.0-0.5 [facility] Comment on above: Result Comment: PERF ORMED BY: [place] [address] PATHOLOGIST PST SPECIALIST CHITO HENDRICKS M.D. Performed By: #### C RP, ESR #### [address] #### LEONARD #### [facility] , Erythrocyte Sedimentation Ra logan 04-07-2023 ESR (Bld) [Velocity] 22 mm/h High 0-19 [facility] Comment on above: Result Comment: PERF ORMED BY: [place] [address] PATHOLOGIST PST SPECIALIST CHITO HENDRICKS M.D. Performed By: #### C RP, ESR #### [place] [address] [place] #### LEONARD #### [facility] , Erythrocyte sedimentation ra te by Photometric methodOrdered By: Eliazar Gibson on 04-07-2023 ESR Photometric method (Bld) [Velocity] 22 mm/hr 0-19 [facility] Retail - Clinical Noteon Retail - Clinical Note [id number]#1. 00CD:127 Normal [facility] Serum or plasma thyroperoxid ase antibody assay (units/volume)Ordered By: Elizabeth Pérez on 11-16-2022 TPO Ab Qn 13 [IU]/mL 0-34 [facility] Comment on above: Performed at: [facility] [address] [place] [id number] Director: Red Sena PhD, Phone: [phone] Thyrotropin [Units/volume] i n Serum or PlasmaOrdered By: Elizabeth Pérez on 11-16-2022 TSH Qn 1.03 m[IU]/L 0.45-5.33 [facility] Thyroxine (T4) free [Mass/vo lume] in Serum or PlasmaOrdered By: Elizabeth Pérez on 11-16-2022 Free T4 [Mass/Vol] 1.03 ng/dL 0.61-1.12 [facility] Triiodothyronine (T3) Free [ Mass/volume] in Serum or PlasmaOrdered By: Elizabeth Pérez on 11-16-2022 Free T3 [Mass/Vol] 4.39 pg/mL 2.50-3.90 [facility] Albumin [Mass/volume] in Bod y fluidOrdered By: Kallie Chang on 09-16-2022 Albumin (Body fld) [Mass/Vol] 3.7 g/dL 3.2-5.5 [facility] Alkaline phosphatase [Enzyma tic activity/volume] in Serum or PlasmaOrdered By: Kallie Chang on 09-16-2022 ALP [Catalytic activity/Vol] 85 U/L 32-92 [facility] Aspartate aminotransferase [ Enzymatic activity/volume] in Serum or PlasmaOrdered By: Kallie Chang on 09-16-2022 AST [Catalytic activity/Vol] 20 U/L 10-42 [facility] Basophils Auto (Bld) [#/Vol] Ordered By: Kallie Chang on 09-16-2022 Basophils (Bld) [#/Vol] 0.0 10*3/uL 0.0-0.2 [facility] Basophils/100 WBC Auto (Bld) Ordered By: Kallie Chang on 09-16-2022 Basophils/100 WBC (Bld) 0.3 % . [facility] Bilirubin.total [Mass/volume ] in Serum or PlasmaOrdered By: Kallie Chang on 09-16-2022 Bilirubin [Mass/Vol] 0.6 mg/dL 0.3-1.[address] [facility] Calcium [Mass/volume] in Ser um or PlasmaOrdered By: Kallie Chang on 09-16-2022 Calcium [Mass/Vol] 9.2 mg/dL 8.2-10.2 [facility] Carbon dioxide, total [Moles /volume] in Serum or PlasmaOrdered By: Kallie Chang on 09-16-2022 CO2 [Moles/Vol] 23.1 mmol/L 22.0-30.0 [facility] Chloride [Moles/volume] in S nathaly or PlasmaOrdered By: Kallie Chang on 09-16-2022 Chloride [Moles/Vol] 102 mmol/L 95-[address] [facility] Creatinine and Glomerular fi ltration rate.predicted panel (S/P/Bld)Ordered By: Kallie Chang on 09-16-2022 Creatinine [Mass/Vol] 0.98 mg/dL 0.44-1.03 [facility] Eosinophils Auto (Bld) [#/Vo l]Ordered By: Kallie Chang on 09-16-2022 Eosinophils (Bld) [#/Vol] 0.0 10*3/uL 0.0-0.45 [facility] Eosinophils/100 WBC Auto (Bl d)Ordered By: Kallie Chang on 09-16-2022 Eosinophils/100 WBC (Bld) 0.1 % . [facility] Erythrocyte distribution wid th Auto (RBC) [Ratio]Ordered By: Kallie Chang on 09-16-2022 Erythrocyte distribution width (RBC) [Ratio] 15.1 % 11.9-15.3 [facility] Estimated glomerular filtrat ion rate (GFR) non- AmericanOrdered By: Kallie Chang on 09-16-2022 GFR/1.73 sq M.predicted among non-blacks MDRD (S/P/Bld) [Vol rate/Area] > 60 mL/Min [facility] Globulin Calc (S) [Mass/Vol] Ordered By: Kallie Chang on 09-16-2022 Globulin (S) [Mass/Vol] 2.8 g/dL [facility] Glucose [Mass/volume] in Ser um or PlasmaOrdered By: Kallie Chang on 09-16-2022 Glucose [Mass/Vol] 176 mg/dL 70-100 [facility] Comment on above: ADA recommended refe rence rangeRandom Glucose Reference Range is dependent on time and content of last meal. Glucose of more than 200 mg/dL in a nonstressed, ambulatory subject supports the diagnosis of Diabetes Mellitus. Hematocrit Auto (Bld) [Volum e fraction]Ordered By: Kallie Chang on 09-16-2022 Hematocrit (Bld) [Volume fraction] 38.3 % 34.0-46.4 [facility] Hemoglobin [Mass/volume] in BloodOrdered By: Kallie Chang on 09-16-2022 Hemoglobin (Bld) [Mass/Vol] 12.5 g/dL 11.8-15.4 [facility] Leukocytes [#/volume] correc annie for nucleated erythrocytes in Blood by Automated counOrdered By: Kallie Chang on 09-16-2022 WBC corrected for nucl RBC Auto (Bld) [#/Vol] 11.5 10*3/uL 3.8-11.6 [facility] Lymphocytes Auto (Bld) [#/Vo l]Ordered By: Kallie Chang on 09-16-2022 Lymphocytes (Bld) [#/Vol] 0.7 10*3/uL 1.00-4.8 [facility] Lymphocytes/100 WBC Auto (Bl d)Ordered By: Kallie Chang on 09-16-2022 Lymphocytes/100 WBC (Bld) 6.2 % . [facility] MCH Auto (RBC) [Entitic mass ]Ordered By: Kallie Chang on 09-16-2022 MCH (RBC) [Entitic mass] 30.2 pg 24.7-34.3 [facility] MCHC Auto (RBC) [Mass/Vol]Or dered By: Kallie Chang on 09-16-2022 MCHC (RBC) [Mass/Vol] 32.7 g/dL 32.0-35.0 [facility] MCV Auto (RBC) [Entitic vol] Ordered By: Kallie Chang on 09-16-2022 MCV (RBC) [Entitic vol] 92.4 fL 80-100 [facility] Monocytes Auto (Bld) [#/Vol] Ordered By: Kallie Chang on 09-16-2022 Monocytes (Bld) [#/Vol] 0.3 10*3/uL 0.0-0.8 [facility] Monocytes/100 WBC Auto (Bld) Ordered By: Kallie Chang on 09-16-2022 Monocytes/100 WBC (Bld) 2.3 % . [facility] Neutrophils Auto (Bld) [#/Vo l]Ordered By: Kallie Chang on 09-16-2022 Neutrophils (Bld) [#/Vol] 10.4 10*3/uL 1.8-7.7 [facility] Neutrophils/100 WBC Auto (Bl d)Ordered By: Kallie Chang on 09-16-2022 Neutrophils/100 WBC (Bld) 91.1 % . [facility] No Panel InformationOrdered By: Kallie Chang on 09-16-2022 Adrenocorticotropic Hormone <1.5 pg/mL 7.2-63.3 [facility] Comment on above: ACTH reference inter ervin for samples collected between 7 and10 AM.Performed at: [facility] [id number] Director: Red Sena PhD, Phone: [phone] Estimated GFR () > 60 mL/Min [facility] Comment on above: GFR estimated refere nce range: According to KDOQI guidelines, <60 ml/min/1.73m2 is sufficient to diagnose a patient with chronic kidney disease. Pharmacy Creatinine Clearance (Chem 72.74 [facility] Nucleated erythrocytes [Pres ence] in Blood by Automated countOrdered By: Kallie Chang on 09-16-2022 Nucleated RBC Auto Ql (Bld) 0.1 /100{WBC} 0-0.5 [facility] Platelet mean volume Auto (B ld) [Entitic vol]Ordered By: Kallie Chang on 09-16-2022 Platelet mean volume (Bld) [Entitic vol] 6.9 fL 6.3-10.7 [facility] Platelets Auto (Bld) [#/Vol] Ordered By: Kallie Chang on 09-16-2022 Platelets (Bld) [#/Vol] 287 10*3/uL 150-450 [facility] Potassium [Moles/volume] in Serum or PlasmaOrdered By: Kallie Chang on 09-16-2022 Potassium [Moles/Vol] 4.3 mmol/L 3.5-5.1 [facility] Protein [Mass/volume] in Ser um or PlasmaOrdered By: Kallie Chang on 09-16-2022 Protein [Mass/Vol] 6.5 g/dL 6.1-7.9 [facility] RBC Auto (Bld) [#/Vol]Ordere d By: Kallie Chang on 09-16-2022 RBC (Bld) [#/Vol] 4.14 10*6/uL 3.60-5.00 [facility] Random cortisol measurementO rdered By: Kallie Chang on 09-16-2022 Cortisol [Mass/Vol] 3.7 ug/dL [facility] Comment on above: Reference range: AM 6 - 24 ug/dl PM <10 ug/dl Serum or plasma alanine napoles otransferase measurement without P-5'-P (enzymatic activiOrdered By: Kallie Chang on 09-16-2022 ALT No additional P-5'-P [Catalytic activity/Vol] 16 U/L 10-60 [facility] Serum or plasma albumin/glob ulin mass ratioOrdered By: Kallie Chang on 09-16-2022 Albumin/Globulin [Mass ratio] 1.3 {ratio} [facility] Serum or plasma anion gap de terminationOrdered By: Kallie Chang on 09-16-2022 Anion gap [Moles/Vol] 13.2 mmol/L 6.0-15.0 [facility] Sodium [Moles/volume] in Ser um or PlasmaOrdered By: Kallie Chang on 09-16-2022 Sodium [Moles/Vol] 134 mmol/L 136-146 [facility] TSH DL <= 0.005 mIU/L QnOrde red By: Kallie Chang on 09-16-2022 TSH Qn 0.51 m[IU]/L 0.45-5.33 [facility] Thyroxine (T4) free [Mass/vo lume] in Serum or PlasmaOrdered By: Kallie Chang on 09-16-2022 Free T4 [Mass/Vol] 0.84 ng/dL 0.61-1.12 [facility] Urea nitrogen [Mass/volume] in Serum or PlasmaOrdered By: Kallie Chang on 09-16-2022 Urea nitrogen [Mass/Vol] 15 mg/dL 9-23 [facility] WBC Auto (Bld) [#/Vol]Ordere d By: Kallie Chang on 09-16-2022 WBC (Bld) [#/Vol] 11.5 10*3/uL 3.8-11.6 [facility] Albumin [Mass/volume] in Ser um or PlasmaOrdered By: Kallie Chang on 08-05-2022 Albumin [Mass/Vol] 3.8 g/dL 3.2-5.5 [facility] Basophils Auto (Bld) [#/Vol] Ordered By: Kallie Chang on 08-05-2022 Basophils (Bld) [#/Vol] 0.0 10*3/uL 0.0-0.2 [facility] Basophils/100 WBC Auto (Bld) Ordered By: Kallie Chang on 08-05-2022 Basophils/100 WBC (Bld) 0.2 % . [facility] Creatinine and Glomerular fi ltration rate.predicted panel (S/P/Bld)Ordered By: Kallie Chang on 08-05-2022 Creatinine [Mass/Vol] 1.03 mg/dL 0.44-1.03 [facility] Eosinophils Auto (Bld) [#/Vo l]Ordered By: Kallie Chang on 08-05-2022 Eosinophils (Bld) [#/Vol] 0.0 10*3/uL 0.0-0.45 [facility] Eosinophils/100 WBC Auto (Bl d)Ordered By: Kallie Chang on 08-05-2022 Eosinophils/100 WBC (Bld) 0.0 % . [facility] Erythrocyte distribution wid th Auto (RBC) [Ratio]Ordered By: Kallie Chang on 08-05-2022 Erythrocyte distribution width (RBC) [Ratio] 14.9 % 11.9-15.3 [facility] Estimated glomerular filtrat ion rate (GFR) non- AmericanOrdered By: Kallie Chang on 08-05-2022 GFR/1.73 sq M.predicted among non-blacks MDRD (S/P/Bld) [Vol rate/Area] 58 mL/Min [facility] Globulin Calc (S) [Mass/Vol] Ordered By: Kallie Chang on 08-05-2022 Globulin (S) [Mass/Vol] 2.9 g/dL [facility] Hematocrit Auto (Bld) [Volum e fraction]Ordered By: Kallie Chang on 08-05-2022 Hematocrit (Bld) [Volume fraction] 37.2 % 34.0-46.4 [facility] Hemoglobin [Mass/volume] in BloodOrdered By: Kallie Chang on 08-05-2022 Hemoglobin (Bld) [Mass/Vol] 12.2 g/dL 11.8-15.4 [facility] Lactate dehydrogenase measur ement (enzymatic activity/volume)Ordered By: Kallie Chang on 08-05-2022 LDH (Unsp spec) [Catalytic activity/Vol] 169 U/L 45-190 [facility] Leukocytes [#/volume] correc annie for nucleated erythrocytes in Blood by Automated counOrdered By: Kallie Chang on 08-05-2022 WBC corrected for nucl RBC Auto (Bld) [#/Vol] 9.3 10*3/uL 3.8-11.6 [facility] Lymphocytes Auto (Bld) [#/Vo l]Ordered By: Kallie Chang on 08-05-2022 Lymphocytes (Bld) [#/Vol] 0.5 10*3/uL 1.00-4.8 [facility] Lymphocytes/100 WBC Auto (Bl d)Ordered By: Kallie Chang on 08-05-2022 Lymphocytes/100 WBC (Bld) 5.5 % . [facility] MCH Auto (RBC) [Entitic mass ]Ordered By: Kallie Chang on 08-05-2022 MCH (RBC) [Entitic mass] 29.8 pg 24.7-34.3 [facility] MCHC Auto (RBC) [Mass/Vol]Or dered By: Kallie Chang on 08-05-2022 MCHC (RBC) [Mass/Vol] 32.8 g/dL 32.0-35.0 [facility] MCV Auto (RBC) [Entitic vol] Ordered By: Kallie Chang on 08-05-2022 MCV (RBC) [Entitic vol] 90.9 fL 80-100 [facility] Monocytes Auto (Bld) [#/Vol] Ordered By: Kallie Chang on 08-05-2022 Monocytes (Bld) [#/Vol] 0.1 10*3/uL 0.0-0.8 [facility] Monocytes/100 WBC Auto (Bld) Ordered By: Kallie Chang on 08-05-2022 Monocytes/100 WBC (Bld) 1.4 % . [facility] Neutrophils Auto (Bld) [#/Vo l]Ordered By: Kallie Chang on 08-05-2022 Neutrophils (Bld) [#/Vol] 8.7 10*3/uL 1.8-7.7 [facility] Neutrophils/100 WBC Auto (Bl d)Ordered By: Kallie Chang on 08-05-2022 Neutrophils/100 WBC (Bld) 92.9 % . [facility] No Panel InformationOrdered By: Kallie Chang on 08-05-2022 Adrenocorticotropic Hormone <1.5 pg/mL 7.2-63.3 [facility] Comment on above: ACTH reference inter ervin for samples collected between 7 and10 AM.Performed at: [facility] [id number] Director: Red Sena PhD, Phone: [phone] Estimated GFR () > 60 mL/Min [facility] Comment on above: GFR estimated refere nce range: According to KDOQI guidelines, <60 ml/min/1.73m2 is sufficient to diagnose a patient with chronic kidney disease. Pharmacy Creatinine Clearance (Chem 67.73 [facility] Nucleated erythrocytes [Pres ence] in Blood by Automated countOrdered By: Kallie Chang on 08-05-2022 Nucleated RBC Auto Ql (Bld) 0.0 /100{WBC} 0-0.5 [facility] Platelet mean volume Auto (B ld) [Entitic vol]Ordered By: Kallie Chang on 08-05-2022 Platelet mean volume (Bld) [Entitic vol] 7.1 fL 6.3-10.7 [facility] Platelets Auto (Bld) [#/Vol] Ordered By: Kallie Chang on 08-05-2022 Platelets (Bld) [#/Vol] 263 10*3/uL 150-450 [facility] Protein [Mass/volume] in Ser um or PlasmaOrdered By: Kallie Chang on 08-05-2022 Protein [Mass/Vol] 6.7 g/dL 6.1-7.9 [facility] RBC Auto (Bld) [#/Vol]Ordere d By: Kallie Chang on 08-05-2022 RBC (Bld) [#/Vol] 4.09 10*6/uL 3.60-5.00 [facility] Serum or plasma alanine napoles otransferase measurement without P-5'-P (enzymatic activiOrdered By: Kallie Chang on 08-05-2022 ALT No additional P-5'-P [Catalytic activity/Vol] 16 U/L 10-60 [facility] Serum or plasma albumin/glob ulin mass ratioOrdered By: Kallie Chang on 08-05-2022 Albumin/Globulin [Mass ratio] 1.3 {ratio} [facility] Serum or plasma alkaline zo sphatase measurement (enzymatic activity/volume)Ordered By: Kallie Chang on 08-05-2022 ALP [Catalytic activity/Vol] 89 U/L 32-92 [facility] Serum or plasma anion gap de terminationOrdered By: Kallie Chang on 08-05-2022 Anion gap [Moles/Vol] 16.6 mmol/L 6.0-15.0 [facility] Serum or plasma aspartate am inotransferase measurement (enzymatic activity/volume)Ordered By: Kallie Chang on 08-05-2022 AST [Catalytic activity/Vol] 18 U/L 10-42 [facility] Serum or plasma calcium daiana urement (mass/volume)Ordered By: Kallie Chang on 08-05-2022 Calcium [Mass/Vol] 9.1 mg/dL 8.2-10.2 [facility] Serum or plasma chloride lizett surement (moles/volume)Ordered By: Kallie Chang on 08-05-2022 Chloride [Moles/Vol] 99 mmol/L 95-[address] [facility] Serum or plasma glucose daiana urement (mass/volume)Ordered By: Kallie Chang on 08-05-2022 Glucose [Mass/Vol] 164 mg/dL 70-100 [facility] Comment on above: ADA recommended refe rence rangeRandom Glucose Reference Range is dependent on time and content of last meal. Glucose of more than 200 mg/dL in a nonstressed, ambulatory subject supports the diagnosis of Diabetes Mellitus. Serum or plasma potassium me asurement (moles/volume)Ordered By: Kallie Chang on 08-05-2022 Potassium [Moles/Vol] 4.6 mmol/L 3.5-5.1 [facility] Serum or plasma sodium measu rement (moles/volume)Ordered By: Kallie Chang on 08-05-2022 Sodium [Moles/Vol] 135 mmol/L 136-146 [facility] Serum or plasma total biliru bin measurement (mass/volume)Ordered By: Kallie Chang on 08-05-2022 Bilirubin [Mass/Vol] 0.7 mg/dL 0.3-1.[address] [facility] Serum or plasma total carbon dioxide measurement (moles/volume)Ordered By: Kallie Chang on 08-05-2022 CO2 [Moles/Vol] 24.0 mmol/L 22.0-30.0 [facility] Serum or plasma urea nitroge n measurement (mass/volume)Ordered By: Kallie Chang on 08-05-2022 Urea nitrogen [Mass/Vol] 15 mg/dL 9- [facility] TSH DL <= 0.005 mIU/L QnOrde red By: Kallie Chang on 08-05-2022 TSH Qn 0.70 m[IU]/L 0.45-5.33 [facility] Thyroxine (T4) free [Mass/vo lume] in Serum or PlasmaOrdered By: Kallie Chang on 08-05-2022 Free T4 [Mass/Vol] 0.71 ng/dL 0.61-1.12 [facility] WBC Auto (Bld) [#/Vol]Ordere d By: Kallie Chang on 08-05-2022 WBC (Bld) [#/Vol] 9.3 10*3/uL 3.8-11.6 [facility] Random cortisol measurementO rdered By: Kallie Chang on 07-22-2022 Cortisol [Mass/Vol] 2.6 ug/dL [facility] Comment on above: Reference range: AM 6 - 24 ug/dl PM <10 ug/dl Albumin [Mass/volume] in Ser um or PlasmaOrdered By: Kallie Chang on 06-17-2022 Albumin [Mass/Vol] 3.6 g/dL 3.2-5.5 [facility] Basophils Auto (Bld) [#/Vol] Ordered By: Kallie Chang on 06-17-2022 Basophils (Bld) [#/Vol] 0.0 10*3/uL 0.0-0.2 [facility] Basophils/100 WBC Auto (Bld) Ordered By: Kallie Chang on 06-17-2022 Basophils/100 WBC (Bld) 0.7 % . [facility] Creatinine and Glomerular fi ltration rate.predicted panel (S/P/Bld)Ordered By: Kallie Chang on 06-17-2022 Creatinine [Mass/Vol] 0.66 mg/dL 0.44-1.03 [facility] Eosinophils Auto (Bld) [#/Vo l]Ordered By: Kallie Chang on 06-17-2022 Eosinophils (Bld) [#/Vol] 0.1 10*3/uL 0.0-0.45 [facility] Eosinophils/100 WBC Auto (Bl d)Ordered By: Kallie Chang on 06-17-2022 Eosinophils/100 WBC (Bld) 2.7 % . [facility] Erythrocyte distribution wid th Auto (RBC) [Ratio]Ordered By: Kallie Chang on 06-17-2022 Erythrocyte distribution width (RBC) [Ratio] 13.2 % 11.9-15.3 [facility] Estimated glomerular filtrat ion rate (GFR) non- AmericanOrdered By: Kallie Chang on 06-17-2022 GFR/1.73 sq M.predicted among non-blacks MDRD (S/P/Bld) [Vol rate/Area] > 60 mL/Min [facility] Globulin Calc (S) [Mass/Vol] Ordered By: Kallie Chang on 06-17-2022 Globulin (S) [Mass/Vol] 2.6 g/dL [facility] Hematocrit Auto (Bld) [Volum e fraction]Ordered By: Kallie Chang on 06-17-2022 Hematocrit (Bld) [Volume fraction] 32.8 % 34.0-46.4 [facility] Hemoglobin [Mass/volume] in BloodOrdered By: Kallie Chang on 06-17-2022 Hemoglobin (Bld) [Mass/Vol] 10.7 g/dL 11.8-15.4 [facility] Leukocytes [#/volume] correc annie for nucleated erythrocytes in Blood by Automated counOrdered By: Kallie Chang on 06-17-2022 WBC corrected for nucl RBC Auto (Bld) [#/Vol] 5.1 10*3/uL 3.8-11.6 [facility] Lymphocytes Auto (Bld) [#/Vo l]Ordered By: Kallie Chang on 06-17-2022 Lymphocytes (Bld) [#/Vol] 0.9 10*3/uL 1.00-4.8 [facility] Lymphocytes/100 WBC Auto (Bl d)Ordered By: Kallie Chang on 06-17-2022 Lymphocytes/100 WBC (Bld) 17.2 % . [facility] MCH Auto (RBC) [Entitic mass ]Ordered By: Kallie Chang on 06-17-2022 MCH (RBC) [Entitic mass] 29.5 pg 24.7-34.3 [facility] MCHC Auto (RBC) [Mass/Vol]Or dered By: Kallie Chang on 06-17-2022 MCHC (RBC) [Mass/Vol] 32.8 g/dL 32.0-35.0 [facility] MCV Auto (RBC) [Entitic vol] Ordered By: Kallie Chang on 06-17-2022 MCV (RBC) [Entitic vol] 90.0 fL 80-100 [facility] Monocytes Auto (Bld) [#/Vol] Ordered By: Kallie Chang on 06-17-2022 Monocytes (Bld) [#/Vol] 0.5 10*3/uL 0.0-0.8 [facility] Monocytes/100 WBC Auto (Bld) Ordered By: Kallie Chang on 06-17-2022 Monocytes/100 WBC (Bld) 10.3 % . [facility] Neutrophils Auto (Bld) [#/Vo l]Ordered By: Kallie Chang on 06-17-2022 Neutrophils (Bld) [#/Vol] 3.5 10*3/uL 1.8-7.7 [facility] Neutrophils/100 WBC Auto (Bl d)Ordered By: Kallie Chang on 06-17-2022 Neutrophils/100 WBC (Bld) 69.1 % . [facility] No Panel InformationOrdered By: Kallie Chang on 06-17-2022 Adrenocorticotropic Hormone 8.2 pg/mL 7.2-63.3 [facility] Comment on above: ACTH reference inter ervin for samples collected between 7 and10 AM.Performed at: [facility] [address] [id number] Director: Red Sena PhD, Phone: [phone] Estimated GFR () > 60 mL/Min [facility] Comment on above: GFR estimated refere nce range: According to KDOQI guidelines, <60 ml/min/1.73m2 is sufficient to diagnose a patient with chronic kidney disease. Pharmacy Creatinine Clearance (Chem 110.52 [facility] Nucleated erythrocytes [Pres ence] in Blood by Automated countOrdered By: Kallie Chang on 06-17-2022 Nucleated RBC Auto Ql (Bld) 0.0 /100{WBC} 0-0.5 [facility] Platelet mean volume Auto (B ld) [Entitic vol]Ordered By: Kallie Chang on 06-17-2022 Platelet mean volume (Bld) [Entitic vol] 7.2 fL 6.3-10.7 [facility] Platelets Auto (Bld) [#/Vol] Ordered By: Kallie Chang on 06-17-2022 Platelets (Bld) [#/Vol] 241 10*3/uL 150-450 [facility] Protein [Mass/volume] in Ser um or PlasmaOrdered By: Kallie Chang on 06-17-2022 Protein [Mass/Vol] 6.2 g/dL 6.1-7.9 [facility] RBC Auto (Bld) [#/Vol]Ordere d By: Kallie Chang on 06-17-2022 RBC (Bld) [#/Vol] 3.64 10*6/uL 3.60-5.00 [facility] Random cortisol measurementO rdered By: Kallie Chang on 06-17-2022 Cortisol [Mass/Vol] 0.4 ug/dL [facility] Comment on above: Reference range: AM 6 - 24 ug/dl PM <10 ug/dl Serum or plasma alanine napoles otransferase measurement without P-5'-P (enzymatic activiOrdered By: Kallie Chang on 06-17-2022 ALT No additional P-5'-P [Catalytic activity/Vol] 34 U/L 1060 [facility] Serum or plasma albumin/glob ulin mass ratioOrdered By: Kallie Chang on 06-17-2022 Albumin/Globulin [Mass ratio] 1.4 {ratio} [facility] Serum or plasma alkaline zo sphatase measurement (enzymatic activity/volume)Ordered By: Kallie Chang on 06-17-2022 ALP [Catalytic activity/Vol] 82 U/L 32-92 [facility] Serum or plasma anion gap de terminationOrdered By: Kallie Chang on 06-17-2022 Anion gap [Moles/Vol] 11.1 mmol/L 6.0-15.0 [facility] Serum or plasma aspartate am inotransferase measurement (enzymatic activity/volume)Ordered By: Kallie Chang on 06-17-2022 AST [Catalytic activity/Vol] 36 U/L 10-42 [facility] Serum or plasma calcium daiana urement (mass/volume)Ordered By: Kallie Chang on 06-17-2022 Calcium [Mass/Vol] 9.5 mg/dL 8.2-10.2 [facility] Serum or plasma chloride lizett surement (moles/volume)Ordered By: Kallie Chang on 06-17-2022 Chloride [Moles/Vol] 101 mmol/L 95-[address] [facility] Serum or plasma glucose daiana urement (mass/volume)Ordered By: Kallie Chang on 06-17-2022 Glucose [Mass/Vol] 94 mg/dL 70-100 [facility] Comment on above: ADA recommended refe rence rangeRandom Glucose Reference Range is dependent on time and content of last meal. Glucose of more than 200 mg/dL in a nonstressed, ambulatory subject supports the diagnosis of Diabetes Mellitus. Serum or plasma potassium me asurement (moles/volume)Ordered By: Kallie Chang on 06-17-2022 Potassium [Moles/Vol] 3.6 mmol/L 3.5-5.1 [facility] Serum or plasma sodium measu rement (moles/volume)Ordered By: Kallie Chang on 06-17-2022 Sodium [Moles/Vol] 133 mmol/L 136-146 [facility] Serum or plasma total biliru bin measurement (mass/volume)Ordered By: Kallie Chang on 06-17-2022 Bilirubin [Mass/Vol] 0.8 mg/dL 0.3-1.[address] [facility] Serum or plasma total carbon dioxide measurement (moles/volume)Ordered By: Kallie Chang on 06-17-2022 CO2 [Moles/Vol] 24.5 mmol/L 22.0-30.0 [facility] Serum or plasma urea nitroge n measurement (mass/volume)Ordered By: Kallie Chang on 06-17-2022 Urea nitrogen [Mass/Vol] 7 mg/dL 9-23 [facility] TSH DL <= 0.005 mIU/L QnOrde red By: Kallie Chang on 06-17-2022 TSH Qn 2.66 m[IU]/L 0.45-5.33 [facility] Thyroxine (T4) free [Mass/vo lume] in Serum or PlasmaOrdered By: Kallie Chang on 06-17-2022 Free T4 [Mass/Vol] 0.43 ng/dL 0.61-1.12 [facility] WBC Auto (Bld) [#/Vol]Ordere d By: Kallie Chang on 06-17-2022 WBC (Bld) [#/Vol] 5.1 10*3/uL 3.8-11.6 [facility] Laboratory - Hematology and Cell countsOrdered By: Kallie Bernardo on 05-27-2022 Nucleated RBC/100 WBC (Bld) [Ratio] 0.1 % 0-0.5 [facility] No Panel InformationOrdered By: Kallie Bernardo on 05-27-2022 Adrenocorticotropic Hormone 14.9 pg/mL 7.2-63.3 [facility] Comment on above: ACTH reference inter ervin for samples collected between 7 and10 AM.Performed at: [email or web address] [id number] Director: Red Sena PhD, Phone: [phone] HCG ( test) Cheryl bryan Ql (U)Ordered By: Stacie Thomas on 04-16-2022 HCG ( test) Ql (U) Negative [facility] PAP ACOG PANEL 2: 30 to 65on 04-16-2022 . . Normal [facility] Comment on above: Result Comment: Perf ormed at: WB Performed By: #### [id number] #### [facility] [address] [place] [address] Dr. Lilly Varner Age Gdln ACOG Testing 30-65 Normal [facility] Comment on above: Performed By: #### [id number] #### [facility] [address] [address] [address] Lilly Varner DIAGNOSIS: Comment Normal [facility] Comment on above: Result Comment: NEGA TIVE FOR INTRAEPITHELIAL LESION OR MALIGNANCY. THIS SPECIMEN WAS RESCREENED PART OF OUR [employer] PROGRAM. Performed at: WB Performed By: #### [id number] #### [facility] [address] [place] [address] Dr. Lilly Varner HPV Aptima Positive Abnormal Negative [facility] Comment on above: Result Comment: This nucleic acid amplification test detects fourteen high-risk HPV types (16,18,31,33,35,39,45,51,52,56,58,59,66,68) without differentiation. Performed at: =G Performed By: #### [id number] #### [facility] [address] [place] [address] Dr. Lilly Varner HPV Genotype 16 Negative Normal Negative [facility] Comment on above: Result Comment: Perf ormed at: =G Performed By: #### [id number] #### [facility] [address] [place] [address] Dr. Lilly Varner HPV Genotype 18,45 Positive Abnormal Negative [facility] Comment on above: Result Comment: Perf ormed at: =G Performed By: #### [id number] #### [facility] [address] [place] [address] Dr. Lilly Varner Methodology: Comment Normal [facility] Comment on above: Result Comment: This liquid based ThinPrep(R) pap test was screened with the use of an image guided system. Performed at: WB Performed By: #### [id number] #### [facility] [address] [place] [address] Dr. Lilly Varner Note: Comment Normal [facility] Comment on above: Result Comment: The Pap smear is a screening test designed to aid in the detection of premalignant and malignant conditions of the uterine cervix. It is not a diagnostic procedure and should not be used as the sole means of detecting cervical cancer. Both false-positive and false-negative reports do occur. . Performed at: WB Performed By: #### [id number] #### [facility] [address] [place] [address] Dr. Lilly Varner Performed by: Comment Normal [facility] Comment on above: Result Comment: Nickie Ford, Halftone Operator (ASCP) Performed at: WB Performed By: #### [id number] #### [facility] [address] [place] [address] Dr. Lilly Varner QC reviewed by: Comment Normal [facility] Comment on above: Result Comment: Dequan Plaza, Supervisory Halftone Operator (ASCP) Performed at: WB Performed By: #### [id number] #### [facility] [address] [place] [address] Dr. Lilly Varner Specimen adequacy: Comment Normal [facility] Comment on above: Result Comment: Sati sfactory for evaluation. Endocervical and/or squamous metaplastic cells (endocervical component) are present. Performed at: WB Performed By: #### [id number] #### [facility] [address] [place] [address] Dr. Lilly Varner XR DEXA BONE DENSITYon [...] by: KRISTA ROBERTSON Date: 2022-04-14 17:25 Normal [facility] VIT D 25-OH LABCORPon 2021 Vitamin D, 25-Hydroxy 19.5 ng/mL Critically low 30.0-100.0 [facility] Comment on above: Result Comment: [place] min D deficiency has been defined by the [place] [employer] and an Endocrine Society practice guideline as a level of serum 25-OH vitamin D less than 20 ng/mL (1,2). The Endocrine Society went on to further define vitamin D insufficiency as a level between 21 and 29 ng/mL (2). 1. IOM ([place] [employer]). 2010. Dietary reference intakes for calcium and D. [place]: The National Academies Press. 2. Lorena MF, Art MEADOWS, Eleazar SPENCE, et al. Evaluation, treatment, and prevention of vitamin D deficiency: an Endocrine Society clinical practice guideline. JCEM. 2010; 96(7):1911-30. Performed By: #### V ITADLC #### [facility] [address] [address] [address] Lilly Varner CBC AUTO DIFFon 2022 BASO # 0.0 103/ul Normal 0.0-0.1 [facility] Comment on above: Performed By: #### C BC #### [facility] [address] [address] [address] Lilly Varner Basophils/100 WBC (Bld) 0.5 % Normal 0.2-2.0 [facility] Comment on above: Performed By: #### C BC #### [facility] [address] [address] [address] Lilly Varner EO # 0.5 103/ul Normal 0.0-0.7 [facility] Comment on above: Performed By: #### C BC #### [facility] [address] [place] [address] Dr. Lilly Varner Eosinophils/100 WBC (Bld) 6.4 % Normal 0.9-7.0 [facility] Comment on above: Performed By: #### C BC #### [facility] [address] [place] [address] Dr. Lilly Varner Erythrocyte distribution width (RBC) [Ratio] 13.0 % Normal 11.0-15.0 [facility] Comment on above: Performed By: #### C BC #### [facility] [address] [place] [address] Dr. Lilly Varner Hematocrit (Bld) [Volume fraction] 40.1 % Normal 36.0-48.0 [facility] Comment on above: Performed By: #### C BC #### [facility] [address] [place] [address] Dr. Lilly Varner Hemoglobin (Bld) [Mass/Vol] 12.7 g/dL Normal 12.0-16.0 [facility] Comment on above: Performed By: #### C BC #### [facility] [address] [place] [address] Dr. Lilly Varner IG # 0.04 10e3/ul Critically high 0.00-0.03 [facility] [place] [facility] Comment on above: Performed By: #### C BC #### [facility] [address] [place] [address] Dr. Lilly Varner IG % 0.5 % Normal 0.0-0.5 [facility] Comment on above: Performed By: #### C BC #### [facility] [address] [place] [address] Dr. Lilly Varner LYMPH # 2.0 103/ul Normal 1.2-3.8 [facility] Comment on above: Performed By: #### C BC #### [facility] [address] [place] [address] Dr. Lilly Varner Lymphocytes/100 WBC (Bld) 24.3 % Normal 20.5-60.0 [facility] Comment on above: Performed By: #### C BC #### [facility] [address] [place] [address] Dr. Lilly Varner MANUAL DIFF REQ NO Normal [facility] Comment on above: Performed By: #### C BC #### [facility] [address] [place] [address] Dr. Lilly Varner MCH (RBC) [Entitic mass] 30.3 pg Normal 26.7-34.0 [facility] Comment on above: Performed By: #### C BC #### [facility] [address] [place] [address] Dr. Lilly Varner MCHC (RBC) [Mass/Vol] 31.7 g/dL Normal 29.9-35.2 [facility] Comment on above: Performed By: #### C BC #### [facility] [address] [place] [address] Dr. Lilly Varner MCV (RBC) [Entitic vol] 95.7 fL Normal 81.0-99.0 [facility] Comment on above: Performed By: #### C BC #### [facility] [address] [place] [address] Dr. Lilly Varner MONO # 0.5 103/ul Normal 0.3-0.8 [facility] Comment on above: Performed By: #### C BC #### [facility] [address] [address] [address] Lilly Varner Monocytes/100 WBC (Bld) 5.7 % Normal 1.7-12.0 [facility] Comment on above: Performed By: #### C BC #### [facility] [address] [place] [address] Dr. Lilly Varner NEUT # 5.1 103/ul Normal 1.4-6.5 [facility] Comment on above: Performed By: #### C BC #### [facility] [address] [place] [address] Dr. Lilly Varner Neutrophils/100 WBC (Bld) 62.6 % Normal 43.0-75.0 [facility] Comment on above: Performed By: #### C BC #### [facility] [address] [place] [address] Dr. Lilly Varner Platelet mean volume (Bld) [Entitic vol] 8.6 fL Critically low 9.5-13.5 [facility] Comment on above: Performed By: #### C BC #### [facility] [address] [place] [address] Dr. Lilly Varner PLT 279 103/ul Normal 150-450 [facility] Comment on above: Performed By: #### C BC #### [facility] [address] [place] [address] Dr. Lilly Varner RBC 4.19 106/ul Critically low 4.20-5.40 [facility] Comment on above: Performed By: #### C BC #### [facility] [address] [place] [address] Dr. Lilly Varner WBC 8.2 103/ul Normal 4.0-11.0 [facility] Comment on above: Performed By: #### C BC #### [facility] [address] [place] [address] Dr. Lilly Varner GLYCOHEMOGLOBIN A1Con 2021 ADA RECOMMENDATION SEE BELOW Normal [facility] Comment on above: Result Comment: ADA RECOMMENDED LIMIT 4.0 - 6.0 ADA THERAPEUTIC TARGET < 7.0 ACTION SUGGESTED > 7.0 Performed By: #### A 1C ####[facility] [id number] [place], [place] [address]PfDr. Lilly Varner Glucose [Mass/Vol] 128 mg/dL Normal [facility] Comment on above: Performed By: #### A 1C ####[facility] [id number] [place], [place] [address]TzDr. Lilly Varner HbA1c (Bld) [Mass fraction] 6.1 % Normal 4.5-6.2 [facility] Comment on above: Performed By: #### A 1C ####[facility] [id number] [place], [place] [address]XxDr. Lilly Varner LIPID PROFILEon 2022 CHOL-HDL RATIO NORM SEE BELOW Normal [facility] Comment on above: Result Comment: 3.3 - 4.4 LOW RISK 4.4 - 7.1 AVERAGE RISK 7.1 - 11.0 MODERATE RISK >11.0 HIGH RISK Performed By: #### C MP, TSH, LIPID #### [facility] [address] [address] [address] Lilly Varner Cholesterol [Mass/Vol] 291 mg/dL Critically high <=200 [facility] Comment on above: Performed By: #### C MP, TSH, LIPID #### [facility] [address] [address] [address] Lilly Varner Cholesterol in HDL [Mass/Vol] 60 mg/dL Normal 40-60 [facility] Comment on above: Performed By: #### C MP, TSH, LIPID #### [facility] [address] [address] [address] Lilly Varner Cholesterol in LDL [Mass/Vol] 209.6 mg/dL Normal [facility] Comment on above: Performed By: #### C MP, TSH, LIPID #### [facility] [address] [address] [address] Lilly Varner Cholesterol.total/Cholest caro in HDL [Mass ratio] 4.9 {ratio} Normal [facility] [place] [facility] Comment on above: Performed By: #### C MP, TSH, LIPID #### [facility] [address] [address] [address] Lilly Varner HDL NORMAL > or = 60 mg/dl - LO W CARDIOVASCULAR RISK <40 mg/dl - HIGH CARDIOVASCULAR RISK Normal [facility] Comment on above: Performed By: #### C MP, TSH, LIPID #### [facility] [address] [address] [address] Lilly Varner LDL CALC NORMAL SEE BELOW Normal [facility] Comment on above: Result Comment: <100 mg/dl OPTIMAL 100 - 129 mg/dl NEAR OR ABOVE OPTIMAL 130 - 159 mg/dl BORDERLINE HIGH 160 - 189 mg/dl HIGH >190 mg/dl VERY HIGH Performed By: #### C MP, TSH, LIPID #### [facility] [address] [address] [address] Lilly Varner Triglyceride [Mass/Vol] 107 mg/dL Normal <=150 T [facility] Comment on above: Performed By: #### C MP, TSH, LIPID #### [facility] [address] [place] [address] Dr[address] Lilly Varner VLDL CALC 21.4 mg/dL Normal [facility] Comment on above: Performed By: #### C MP, TSH, LIPID #### [facility] [address] [address] [address] Lilly Varner PROF 14(COMP METB)on 022 Albumin [Mass/Vol] 3.9 g/dL Normal 3.4-5.0 [facility] Comment on above: Performed By: #### C MP, TSH, LIPID #### [facility] [address] [address] [address] Lilly Varner Albumin/Globulin [Mass ratio] 1.1 {ratio} Normal [facility] Comment on above: Performed By: #### C MP, TSH, LIPID #### [facility] [address] [place] [address] [address] Lilly Varenr ALP [Catalytic activity/Vol] 103 U/L Normal 46-116 [facility] Comment on above: Performed By: #### C MP, TSH, LIPID #### [facility] [address] [address] [address] Lilly Varner ALT [Catalytic activity/Vol] 44 U/L Normal 14-59 [facility] Comment on above: Performed By: #### C MP, TSH, LIPID #### [facility] [address] [place] [address] Dr. Lilly Varner Anion gap [Moles/Vol] 12.7 mmol/L Normal [facility] Comment on above: Performed By: #### C MP, TSH, LIPID #### [facility] [address] [place] [address] Dr. Lilly Varner AST [Catalytic activity/Vol] 24 U/L Normal 15-37 [facility] Comment on above: Performed By: #### C MP, TSH, LIPID #### [facility] [address] [place] [address] Dr. Lilly Varner Bilirubin [Mass/Vol] 0.4 mg/dL Normal 0.2-1.0 [facility] Comment on above: Performed By: #### C MP, TSH, LIPID #### [facility] [address] [place] [address] Dr. Lilly Varner Calcium [Mass/Vol] 9.1 mg/dL Normal 8.5-10.1 [facility] Comment on above: Performed By: #### C MP, TSH, LIPID #### [facility] [address] [place] [address] Dr. Lilly Varner Chloride [Moles/Vol] 104 mmol/L Normal 98-107 [facility] Comment on above: Performed By: #### C MP, TSH, LIPID #### [facility] [address] [place] [address] Dr. Lilly Varner CO2 [Moles/Vol] 28.4 mmol/L Normal 21.0-32.0 [facility] Comment on above: Performed By: #### C MP, TSH, LIPID #### [facility] [address] [place] [address] Dr. Lilly Varner Creatinine [Mass/Vol] 0.75 mg/dL Normal 0.55-1.02 [facility] Comment on above: Performed By: #### C MP, TSH, LIPID #### [facility] [address] [place], [place] [address] Dr. Lilly Varner EGFR-AF GHANAIAN >60 Normal >=60 [facility] Comment on above: Performed By: #### C MP, TSH, LIPID #### [facility] [address] [place] [address] Dr. Lilly Varner EGFR-NON AF GHANAIAN >60 Normal >=60 [facility] Comment on above: Performed By: #### C MP, TSH, LIPID #### [facility] [address] [place] [address] Dr. Lilly Varner Globulin (S) [Mass/Vol] 3.7 g/dL Normal T [facility] Comment on above: Performed By: #### C MP, TSH, LIPID #### [facility] [address] [place] [address] Dr. Lilly Varner Glucose [Mass/Vol] 98 mg/dL Normal 74-106 [facility] Comment on above: Performed By: #### C MP, TSH, LIPID #### [facility] [address] [place] [address] Dr. Lilly Varner Potassium [Moles/Vol] 4.1 mmol/L Normal 3.5-5.1 [facility] Comment on above: Performed By: #### C MP, TSH, LIPID #### [facility] [address] [place] [address] Dr. Lilly Varner Protein [Mass/Vol] 7.6 g/dL Normal 6.4-8.2 [facility] Comment on above: Performed By: #### C MP, TSH, LIPID #### [facility] [address] [place] [address] Dr. Lilly Varner Sodium [Moles/Vol] 141 mmol/L Normal 136-145 [facility] Comment on above: Performed By: #### C MP, TSH, LIPID #### [facility] [address] [place] [address] Dr. Lilly Varner Urea nitrogen [Mass/Vol] 16.0 mg/dL Normal 7.0-18.0 [facility] Comment on above: Performed By: #### C MP, TSH, LIPID #### [facility] [address] [place], [place] [address] Dr. Lilly Varner Urea nitrogen/Creatinine [Mass ratio] 21.3 mg/mg Normal [facility] Comment on above: Performed By: #### C MP, TSH, LIPID #### [facility] [address] [place], [place] [address] Dr. Lilly Varner TSHon 2022 TSH 1.280 uIU/mL Normal 0.358-3.74 0 [facility] Comment on above: Performed By: #### C MP, TSH, LIPID #### [facility] [address] [place], [place] [address] Dr. Lilly Varner Covid-19 PCR (CVDTBH)on 02-17 SARS-CoV-2 (COVID-19) RNA SHILPI+probe Ql (Unsp spec) Detected Critically abnormal NOT DETECTED [facility] Comment on above: Result Comment: This test is not yet approved or cleared by the [place] FDA. When there are no FDA-approved or cleared tests available, and other criteria are met, FDA can make tests available under an emergency access mechanism called an Emergency Use Authorization (EUA). The EUA for this test is supported by the [place] of Health and Human Service's declaration that [...] used). Performed By: #### C VDTBH #### [facility] [address] [place], [place] [address] Dr. 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 SEE COMMENT. -- Diagnosis Comment -- By report HER2 IHC is negative (1+). Krista Coto M.D. Electronically Signed Out 02/19/2022 Clinical Information Operative Findings: RIGHT BREAST 6:00 MASS AND CALCIFICATIONS Operation Performed: US GUIDED CORE BIOPSY OF BREAST Source of Specimen A: OUTSIDE SLIDES Gross Description Received from [facility] Department of Pathology are 6 slides labelled, [id number], WALLACEALICIA TENISHA, for consultation at the request [...] 1410 OUTSIDE CONSULTATION Patient Name: TENISHA HANCOCK [facility] Rec: [id number] Path Number: [id number] [facility] [employer] CONSULTING PATHOLOGISTS [facility] ANATOMIC PATHOLOGY [address] [place] [address]. [place], [place] [address] [facility] Comment on above: Performed By: #### P PPVOC #### [facility] [employer] [address] [id number] Medical Insurance Coder: Rico Melo MD [facility] BREAST SPECIMENon 2021 [facility] BREAST SPECIMEN EXAMINATION: SPECIMEN RADIOGRAPH [...] Gage Eng MD 02/17/22 Final result Normal [facility] Specimen radiograph demonstrates inclusion of the targeted microcalcifications and biopsy clip Findings discussed with Dr. Murguia in person at 12:55pm on 02/17/2022 [facility] EXAMINATION: SPECIMEN RADIOGRAPH 02/17/2022 TECHNIQUE: [...] coordinates are A3. Wire tip is intact. [facility] [employer] WELCH [employer] Work Phone: Radiology Study observation (narrative) CORKY RUIZ [employer] Phone: WILLIE NEEDLE BREAST LOCALIZATI ON RIGHTon [...] Gage Eng MD 02/17/22 Final result Normal [facility] WILLIE NEEDLE LOCALIZATION [facility] 02-17-2022 Mammographic wire localization of biopsy clip and associated microcalcifications, as described. No residual mammographic mass. [facility] EXAMINATION: MAMMOGRAPHIC GUIDED NEEDLE [...] the wire. No significant residual mammographic mass. [facility] Radiology Study observation (narrative) [employer] Work Phone: WILLIE NEEDLE LOCALIZATION RIGH TOrdered By: Gage Eng on 02-17-2022 [facility] Phone: NM LYMPHOSCINTIGRAMon 2021 NM LYMPHOSCINTIGRAM EXAMINATION: [...] Gage Eng MD 02/17/22 Final result Normal [facility] Prompt identificatio n of sentinel lymph node in the right axilla. [facility] EXAMINATION: LYMPHOSCINTIGRAPHY (INJECTION AND IMAGES) 02/17/2022 [...] ?->No Reason for Exam: Right Breast CA [facility] Gage Eng MD - 02/17/2022 EXAMINATION: LYMPHOSCINTIGRAPHY [...] sentinel lymph node in the right axilla. [employer] Phone: Radiology Study observation (narrative) [employer] Phone: NM LYMPHOSCINTIGRAMOrdered B y: Gage Eng on 02-17-2022 [employer] Phone: Surgical Pathologyon 022 Surgical Pathology (NOTE) -- Diagnosis -- A. RIGHT AXILLARY SENTINEL LYMPH NODES, EXCISIONAL BIOPSIES: - NEGATIVE FOR MALIGNANCY (0/5). B. 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 Cassette summary: 1- component 1 assistance representative submitted from lateral to medial with [...] DX: Negative for malignancy on frozen sections. ([facility], 02/17/22) Microscopic Description A, B. PROCEDURE: [...] sentinel lymp (more content not included)... Normal [facility] Comment on above: Performed By: #### P PPVS #### [facility] [employer] [address] [place] [address] Medical Insurance Coder: Rico Melo MD MRI BREAST BILATERAL W [...] 2021 from [facility] Other right mammogram of June 2021 at an outside facility is not available. HISTORY: ORDERING SYSTEM PROVIDED HISTORY: Malignant neoplasm of right female breast, unspecified estrogen receptor status, unspecified site of breast (HCC) TECHNOLOGIST PROVIDED HISTORY: STAT Creatinine as needed:->Yes Last MRI done at [facility] in [place]. Result scanned in Media Reason for Exam: Last MRI done at [facility] in [place]. Result scanned in Media , Malign Additional signs and symptoms: Last MRI done at [facility] in [place]. Result scanned in Media , Malignant neoplasm [...] Heber Fofana MD 02/04/22 Final result Normal [facility] 1. Area of 9 x 6 [...] OVERALL ASSESSMENT - KNOWN BIOPSY PROVEN MALIGNANCY. [facility] EXAMINATION: MRI OF THE [...] 2021 from [facility] Other right mammogram of June 2021 at an outside facility is not available. HISTORY: ORDERING SYSTEM PROVIDED HISTORY: Malignant neoplasm of right female breast, unspecified estrogen receptor status, unspecified site of breast (HCC) TECHNOLOGIST PROVIDED HISTORY: STAT Creatinine as needed:->Yes Last MRI done at [facility] in [place]. Result scanned in Media Reason for Exam: Last MRI done at [facility] in [place]. Result scanned in Media , Malign Additional signs and symptoms: Last MRI done at [facility] in [place]. Result scanned in Media , Malignant neoplasm [...] abnormal signal intensity or contrast enhancement noted. [facility] Radiology Study observation (narrative) [employer] Phone: MRI BREAST BILATERAL W WO CO NTRASTOrdered By: Heber Fofana on 02-04-2022 Interpretation and review of laboratory results Abnormal [employer] Phone: [facility] Phone: Aamir 01-29-2022 CNPN Telephone (BRComcastAV) TENISHA HANCOCK ([id number]) 1975 F DEF Date Time Provider Department [...] Status:Closed by NAT RICKETTS on 02/02/22 Normal [facility] CNOVon 01-15-2022 CNOV Office Visit (PLASMN ) TENISHA HANCOCK ([id number]) 1975 F DEF Date Time Provider Department [...] breast in May 2021. Dr. Reza in [place] is her breast surgeon. 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 Back Exam: no scar; latissimus dorsi muscle function appears to be intact Abdominal Exam: soft, non-tender, obese and protuberant, BS+, non-distended, lap samreen Breast Exam: Asymmetry: Minimal Axillary Lymphadenopathy: no Scars: None Ptosis: R: Grade III L: Grade III Medially displaced nipple: None Assessment: Patient is a candidate for tissue clinical operations specialist Photos taken today Plan: An extensive discussion was undertaken with the patient detailing the risks, benefits and alternatives to tissue clinical operations specialist. Tenisha Hancock was given supplemental information [...] Past Histories independently gathered by the clinical operations support coordinator and the remaining scribed note accurately describes my personal service to the patient. patient's condition reviewed and examined ? plan and options of management, complexity, risk benefit limitation potential complication, success /failure of management, expected result and recovery discussed ? I spent 30 minutes in the visit, with more than 50% of the total [id number] time of the visit in counseling / [...] Problem Li (more content not included)... Normal [facility] Aamir 01-15-2022 CNPN Telephone (BRCRAV) TENISHA HANCOCK ([id number]) 1975 F DEF Date Time Provider Department [...] been, she has had studies at both [facility] and [place]. I was able to have patient get a release and will also fax to [place] what she has thus far. Our office [...] I see a teaching note 06/23/21 at [facility] but limited documentation since then as to [...] on voicemail to return her call at [phone]. Thank you. Nat Ricketts RN 01/22/2022 3:49 [...] for 60 min new cancer consult at [facility] Patient Pacu Rn 01/23/2022 9:57 AM Signed Pt scheduled Lucinda Alvarez Ma 01/23/2022 10:40 AM Signed Still have not received all records, I spoke to patient today and asked that she help expedite getting her pathology reports and slides from [facility] along with all her images and reports, we also need all the workup done at [facility] and [facility]. I provided [place] fax number and patient advised she will help me gather all her records. Lucinda Alvarez Ma 01/27/2022 10:00 AM Signed We still have not received path slides as of today. I called and LMOM for Jillian whom is the director of [facility] lab department to get an update. I [...] 01/27/2022 10:34 AM Signed Jillian called from [facility] she advised she will work on getting all slides sent to [facility]. Lucinda Alvarez Ma 01/28/2022 9:41 AM Signed Addended by: LUCINDA RED MA on: 01/28/2022 09:41 AM Modules accepted: Orders Allergies As of Date: 01/15/2022 (No Known Allergies) Date Reviewed: 01/15/2022 Reviewed by: Diamond Gibson - Fully Assessed Reason for Visit: Appointment [186] Order(s):OUTSIDE SURG PATH SLIDE REVIEW [SPN5400] Order #: [id number] Prescriptions as of 01/28/2022 - citalopram (CELEXA) 20 mg tablet Take 20 mg (more content not included)... Normal [facility] Basophils Auto (Bld) [#/Vol] Ordered By: Kallie Chang on 12-24-2021 Basophils (Bld) [#/Vol] 0.0 10*3/uL 0.0-0.2 [facility] Basophils/100 WBC Auto (Bld) Ordered By: Kallie Chang on 12-24-2021 Basophils/100 WBC (Bld) 0.3 % . [facility] Blood hemoglobin measurement (mass/volume)Ordered By: Kallie Chang on 12-24-2021 Hemoglobin (Bld) [Mass/Vol] 10.3 g/dL 11.8-15.4 [facility] Blood leukocytes automated c ount (number/volume)Ordered By: Kallie Chang on 12-24-2021 WBC (Bld) [#/Vol] 5.8 10*3/uL 4.5-11.0 [facility] Body fluid albumin measureme nt (mass/volume)Ordered By: Kallie Chang on 12-24-2021 Albumin (Body fld) [Mass/Vol] 3.8 g/dL 3.2-5.5 [facility] Creatinine and Glomerular fi ltration rate.predicted panel (S/P/Bld)Ordered By: Kallie Chang on 12-24-2021 Creatinine [Mass/Vol] 0.66 mg/dL 0.44-1.03 [facility] Eosinophils Auto (Bld) [#/Vo l]Ordered By: Kallie Chang on 12-24-2021 Eosinophils (Bld) [#/Vol] 0.1 10*3/uL 0.0-0.45 [facility] Eosinophils/100 WBC Auto (Bl d)Ordered By: Kallie Chang on 12-24-2021 Eosinophils/100 WBC (Bld) 0.9 % . [facility] Erythrocyte distribution wid th Auto (RBC) [Ratio]Ordered By: Kallie Chang on 12-24-2021 Erythrocyte distribution width (RBC) [Ratio] 13.9 % 11.9-15.3 [facility] Estimated glomerular filtrat ion rate (GFR) non- AmericanOrdered By: Kallie Chang on 12-24-2021 GFR/1.73 sq M.predicted among non-blacks MDRD (S/P/Bld) [Vol rate/Area] > 60 mL/Min [facility] Globulin Calc (S) [Mass/Vol] Ordered By: Kallie Chang on 12-24-2021 Globulin (S) [Mass/Vol] 3.0 g/dL [facility] Hematocrit Auto (Bld) [Volum e fraction]Ordered By: Kallie Chang on 12-24-2021 Hematocrit (Bld) [Volume fraction] 30.4 % 34.0-46.4 [facility] Laboratory - Hematology and Cell countsOrdered By: Kallie Chang on 12-24-2021 Nucleated RBC/100 WBC (Bld) [Ratio] 0.0 % 0-0.5 [facility] Lymphocytes Auto (Bld) [#/Vo l]Ordered By: Kallie Chang on 12-24-2021 Lymphocytes (Bld) [#/Vol] 1.2 10*3/uL 1.00-4.8 [facility] Lymphocytes/100 WBC Auto (Bl d)Ordered By: Kallie Chang on 12-24-2021 Lymphocytes/100 WBC (Bld) 21.5 % . [facility] MCH Auto (RBC) [Entitic mass ]Ordered By: Kallie Chang on 12-24-2021 MCH (RBC) [Entitic mass] 34.6 pg 24.7-34.3 [facility] MCHC Auto (RBC) [Mass/Vol]Or dered By: Kallie Chang on 12-24-2021 MCHC (RBC) [Mass/Vol] 33.9 g/dL 32.0-35.0 [facility] MCV Auto (RBC) [Entitic vol] Ordered By: Kallie Chang on 12-24-2021 MCV (RBC) [Entitic vol] 102.2 fL 80-100 [facility] Macrocytes detectionOrdered By: Kallie Chang on 12-24-2021 Macrocytes Ql (Bld) Slight [facility] Monocytes Auto (Bld) [#/Vol] Ordered By: Kallie hCang on 12-24-2021 Monocytes (Bld) [#/Vol] 0.3 10*3/uL 0.0-0.8 [facility] Monocytes/100 WBC Auto (Bld) Ordered By: Kallie Chang on 12-24-2021 Monocytes/100 WBC (Bld) 5.5 % . [facility] Neutrophils Auto (Bld) [#/Vo l]Ordered By: Kallie Chang on 12-24-2021 Neutrophils (Bld) [#/Vol] 4.1 10*3/uL 1.8-7.7 [facility] Neutrophils/100 WBC Auto (Bl d)Ordered By: Kallie Chang on 12-24-2021 Neutrophils/100 WBC (Bld) 71.8 % . [facility] No Panel InformationOrdered By: Kallie Chang on 12-24-2021 Estimated GFR () > 60 mL/Min [facility] Comment on above: GFR estimated refere nce range: According to KDOQI guidelines, <60 ml/min/1.73m2 is sufficient to diagnose a patient with chronic kidney disease. Pharmacy Creatinine Clearance (Chem 115.02 [facility] Platelet Estimate Normal Normal [facility] Platelet Morphology Comment Normal Normal [facility] Poikilocytosis Slight [facility] Ovalocyte detectionOrdered B y: Kallie Chang on 12-24-2021 Ovalocytes LM Ql (Bld) [facility] Plate[facility] mean volume Auto (B ld) [Entitic vol]Ordered By: Kallie Chang on 12-24-2021 Platelet mean volume (Bld) [Entitic vol] 8.0 fL 6.3-10.7 [facility] Platelets Auto (Bld) [#/Vol] Ordered By: Kallie Chang on 12-24-2021 Platelets (Bld) [#/Vol] 207 10*3/uL 150-450 [facility] Protein [Mass/volume] in Ser um or PlasmaOrdered By: Kallie Chang on 12-24-2021 Protein [Mass/Vol] 6.8 g/dL 6.1-7.9 [facility] RBC Auto (Bld) [#/Vol]Ordere d By: Kallie Chang on 12-24-2021 RBC (Bld) [#/Vol] 2.98 10*6/uL 3.60-5.00 [facility] RBC morphologyOrdered By: Precious coty Bernardo on 12-24-2021 RBC morphology finding Nom (Bld) N/A [facility] Serum or plasma alanine napoles otransferase measurement without P-5'-P (enzymatic activiOrdered By: Kallie Chang on 12-24-2021 ALT No additional P-5'-P [Catalytic activity/Vol] 20 U/L 10-60 [facility] Serum or plasma albumin/glob ulin mass ratioOrdered By: Kallie Chang on 12-24-2021 Albumin/Globulin [Mass ratio] 1.3 {ratio} [facility] Serum or plasma alkaline zo sphatase measurement (enzymatic activity/volume)Ordered By: Kallie Chang on 12-24-2021 ALP [Catalytic activity/Vol] 112 U/L 32-92 [facility] Serum or plasma aspartate am inotransferase measurement (enzymatic activity/volume)Ordered By: Kallie Chang on 12-24-2021 AST [Catalytic activity/Vol] 17 U/L 10-42 [facility] Serum or plasma calcium daiana urement (mass/volume)Ordered By: Kallie Chang on 12-24-2021 Calcium [Mass/Vol] 9.6 mg/dL 8.2-10.2 [facility] Serum or plasma chloride lizett surement (moles/volume)Ordered By: Kallie Chang on 12-24-2021 Chloride [Moles/Vol] 98 mmol/L 95-[address] [facility] Serum or plasma glucose daiana urement (mass/volume)Ordered By: Kallie Chang on 12-24-2021 Glucose [Mass/Vol] 119 mg/dL 70-100 [facility] Comment on above: ADA recommended [...] on 12-24-2021 Potassium [Moles/Vol] 4.0 mmol/L 3.5-5.1 [facility] Serum or plasma sodium measu rement (moles/volume)Ordered By: Kallie Chang on 12-24-2021 Sodium [Moles/Vol] 134 mmol/L 136-146 [facility] Serum or plasma total biliru bin measurement (mass/volume)Ordered By: Kallie Chang on 12-24-2021 Bilirubin [Mass/Vol] 0.5 mg/dL 0.3-1.[address] [facility] Serum or plasma total carbon dioxide measurement (moles/volume)Ordered By: Kallie Chang on 12-24-2021 CO2 [Moles/Vol] 23.2 mmol/L 22.0-30.0 [facility] Serum or plasma urea nitroge n measurement (mass/volume)Ordered By: Kallie Chang on 12-24-2021 Urea nitrogen [Mass/Vol] 7 mg/dL 9-23 [facility] CNPNon 12-19-2021 CNPN Telephone (DPQ) TENISHA HANCOCK ([id number]) 1975 F Date Time Provider Department 12/19/21 [...] Status:Closed by ALFREDO ORTEGA on 12/19/21 Normal [facility] No Panel InformationOrdered By: Kallie Chang on 12-16-2021 Adrenocorticotropic Hormone 31.0 pg/mL 7.2-63.3 [facility] Comment on above: ACTH reference inter ervin for samples collected between 7 and 10 AM. Performed at: [facility] [email or web address] [id number] Medical Insurance Coder: Red Sena PhD, Phone: [phone] ACTH reference inter ervin for samples collected between 7 and10 AM.Performed at: [employer] [id number] Director: Red Sena PhD, Phone: [phone] Random cortisol measurementO rdered By: Kallie Chang on 12-16-2021 Cortisol [Mass/Vol] 7.2 ug/dL [facility] Comment on above: Reference range: AM 6 - 24 ug/dl PM <10 ug/dl Reference range: AM 6 - 24 ug/dl PM <10 ug/dl TSH DL <= 0.005 mIU/L QnOrde red By: Kallie Chang on 12-16-2021 TSH Qn 0.08 m[IU]/L 0.45-5.33 [facility] Thyroxine (T4) free [Mass/vo lume] in Serum or PlasmaOrdered By: Kallie Chang on 12-16-2021 Free T4 [Mass/Vol] 0.74 ng/dL 0.61-1.12 [facility] No Panel InformationOrdered By: Kallie Chang on 12-02-2021 Dohle Bodies Slight [facility] Teardrop cell detectionOrder ed By: Kallie Chang on 12-02-2021 Dacrocytes LM Ql (Bld) Slight [facility] Toxic leukocyte granulation detectionOrdered By: Kallie Chang on 12-02-2021 Toxic granules LM Ql (Bld) [facility] Basophils/100 WBC Auto (Bld) Ordered By: Kallie Chang on 11-04-2021 Basophils/100 WBC (Bld) 1 % 0-2 [facility] Blood anisocytosis detection Ordered By: Kallie Chang on 11-04-2021 Anisocytosis Ql (Bld) Moderate Fir [facility] Blood polychromasia detectio n by light microscopyOrdered By: Kallie Chang on 11-04-2021 Polychromasia LM Ql (Bld) Slight [facility] Erythrocyte basophilic stipp ling detectionOrdered By: Kallie Chang on 11-04-2021 Basophilic stippling LM Ql (Bld) Rare [facility] Laboratory - Hematology and Cell countsOrdered By: Kallie Chang on 11-04-2021 Band form neutrophils/100 WBC (Bld) 1 % 0-5 [facility] Lymphocytes/100 WBC Auto (Bl d)Ordered By: Kallie Chang on 11-04-2021 Lymphocytes/100 WBC (Bld) 25 % 18-42 [facility] Monocytes/100 WBC Manual cnt (Bld)Ordered By: Kallie Chang on 11-04-2021 Monocytes/100 WBC (Bld) 6 % 2-11 [facility] Myelocytes/100 WBC Manual cn t (Bld)Ordered By: Kallie Chang on 11-04-2021 Myelocytes/100 WBC (Bld) 3 % 0-0 [facility] No Panel InformationOrdered By: Kallie Chang on 11-04-2021 Rouleau Slight [facility] Segmented neutrophils/100 WB C Manual cnt (Bld)Ordered By: Kallie Chang on 11-04-2021 Segmented neutrophils/100 WBC (Bld) 64 % 50-70 [facility] Otheron 06-06-1998 CONVERTED ELECTRONIC SIGNATURE PATI CARTAGENA, 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 INFLAMMATORY CELL CHANGES. HORMONAL EVALUATION HORMONAL PATTERN COMPATIBLE WITH AGE AND HISTORY [facility] CONVERTED ORDERING PROVIDER Ordering Provider: JAMARI HOYT [facility] CONVERTED PAP DISCLAIMER The Pap [...] clinically indicated, further patient evaluation is recommended. [facility] Vital Signs Date Time Vital Sign Value Performing Clinician Facility 11-03-2023 15:43-0400 Blood Pressure Location Ismael Scoreloop [facility] 11-03-2023 15:43-0400 Diastolic blood pressure 66 mm[Hg] Ismael Aspire [facility] 11-03-2023 15:43-0400 Heart rate 70 /min Sensorin [facility] 11-03-2023 15:43-0400 Respiratory rate 16 /min Ismael Aspire [facility] 11-03-2023 15:43-0400 Systolic blood pressure 112 mm[Hg] Ismael Aspire [facility] 11-25-2022 14:42-0400 Body temperature 97.8 [degF] MD Eliel Hurd Work Phone: [facility] 11-25-2022 14:42-0400 Body weight 79.83 kg MD Eliel Hurd Work Phone: [facility] 11-25-2022 14:42-0400 Diastolic blood pressure 73 mm[Hg] MD Eliel Hurd Work Phone: [facility] 11-25-2022 14:42-0400 Heart rate 75 /min MD Eliel Hurd Work Phone: [facility] 11-25-2022 14:42-0400 Respiratory rate 16 /min MD Eliel Hurd Work Phone: [facility] 11-25-2022 14:42-0400 SaO2% (BldA) [Mass fraction] 97 % MD Eliel Hurd Work Phone: [facility] 11-25-2022 14:42-0400 Systolic blood pressure 109 mm[Hg] MD Eliel Hurd Work Phone: [facility] 09-18-2022 13:38-0500 Body temperature 98 [degF] MD Eliel Hurd Work Phone: [facility] 09-18-2022 13:38-0500 Body weight 80.4 kg MD Eliel Hurd Work Phone: [facility] 09-18-2022 13:38-0500 Diastolic blood pressure 78 mm[Hg] MD Eliel Hurd Work Phone: [facility] 09-18-2022 13:38-0500 Heart rate 77 /min MD Eliel Hurd Work Phone: [facility] 09-18-2022 13:38-0500 Respiratory rate 16 /min MD Eliel Hurd Work Phone: [facility] 09-18-2022 13:38-0500 SaO2% (BldA) [Mass fraction] 99 % MD Eliel Hurd Work Phone: [facility] 09-18-2022 13:38-0500 Systolic blood pressure 115 mm[Hg] MD Eliel Hurd Work Phone: [facility] 08-14-2022 14:08-0500 Body weight 79.6 kg MD Eliel Hurd Work Phone: [facility] 08-14-2022 14:08-0500 Diastolic blood pressure 68 mm[Hg] MD Eliel Hurd Work Phone: [facility] 08-14-2022 14:08-0500 Heart rate 72 /min MD Eliel Hurd Work Phone: [facility] 08-14-2022 14:08-0500 Respiratory rate 18 /min MD Eliel Hurd Work Phone: [facility] 08-14-2022 14:08-0500 SaO2% (BldA) [Mass fraction] 99 % MD Eliel Hurd Work Phone: [facility] 08-14-2022 14:08-0500 Systolic blood pressure 103 mm[Hg] MD Eliel Hurd Work Phone: [facility] 08-07-2022 13:06-0500 Body temperature 98 [degF] MD Eliel Hurd Work Phone: [facility] 08-06-2022 13:31-0500 Body temperature 97.8 [degF] MD Eliel Hurd Work Phone: [facility] 08-06-2022 13:31-0500 Body weight 76.1 kg MD Eliel Hurd Work Phone: [facility] 08-06-2022 13:31-0500 Diastolic blood pressure 78 mm[Hg] MD Eliel Hurd Work Phone: [facility] 08-06-2022 13:31-0500 Heart rate 60 /min MD Eliel Hurd Work Phone: [facility] 08-06-2022 13:31-0500 Respiratory rate 16 /min MD Eliel Hurd Work Phone: [facility] 08-06-2022 13:31-0500 SaO2% (BldA) [Mass fraction] 95 % MD Eliel Hurd Work Phone: [facility] 08-06-2022 13:31-0500 Systolic blood pressure 115 mm[Hg] MD Eliel Hurd Work Phone: [facility] 07-15-2022 13:06-0500 Body height 160.02 cm MD Eliel Hurd Work Phone: [facility] 07-15-2022 13:06-0500 Body temperature 97.5 [degF] MD Eliel Hurd Work Phone: [facility] 07-15-2022 13:06-0500 Body weight 75.3 kg MD Eliel Hurd Work Phone: [facility] 07-15-2022 13:06-0500 Diastolic blood pressure 61 mm[Hg] MD Eliel Hurd Work Phone: [facility] 07-15-2022 13:06-0500 Heart rate 80 /min MD Eliel Hurd Work Phone: [facility] 07-15-2022 13:06-0500 Respiratory rate 18 /min MD Eliel Hurd Work Phone: [facility] 07-15-2022 13:06-0500 SaO2% (BldA) [Mass fraction] 98 % MD Eliel Hurd Work Phone: [facility] 07-15-2022 13:06-0500 Systolic blood pressure 102 mm[Hg] MD Eliel Hurd Work Phone: [facility] 06-18-2022 10:07-0500 Body height 160.02 cm MD Eliel Hurd Work Phone: [facility] 06-18-2022 10:07-0500 Body temperature 98.4 [degF] MD Eliel Hurd Work Phone: [facility] 06-18-2022 10:07-0500 Body weight 78.9 kg MD Eliel Hurd Work Phone: [facility] 06-18-2022 10:07-0500 Diastolic blood pressure 80 mm[Hg] MD Eliel Hurd Work Phone: [facility] 06-18-2022 10:07-0500 Heart rate 84 /min MD Eliel Hurd Work Phone: [facility] 06-18-2022 10:07-0500 Respiratory rate 20 /min MD Eliel Hurd Work Phone: [facility] 06-18-2022 10:07-0500 SaO2% (BldA) [Mass fraction] 100 % MD Eliel Hurd Work Phone: [facility] 06-18-2022 10:07-0500 Systolic blood pressure 117 mm[Hg] MD Eliel Hurd Work Phone: [facility] 03-19-2022 10:00-0400 Body temperature 98.8 [degF] MD Eliel Hurd Work Phone: [facility] 03-19-2022 10:00-0400 Body weight 90.26 kg MD Eliel Hurd Work Phone: [facility] 03-19-2022 10:00-0400 Diastolic blood pressure 86 mm[Hg] MD Eliel Hurd Work Phone: [facility] 03-19-2022 10:00-0400 Heart rate 68 /min MD Eliel Hurd Work Phone: [facility] 03-19-2022 10:00-0400 Respiratory rate 18 /min MD Eliel Hurd Work Phone: [facility] 03-19-2022 10:00-0400 SaO2% (BldA) [Mass fraction] 98 % MD Eliel Hurd Work Phone: [facility] 03-19-2022 10:00-0400 Systolic blood pressure 125 mm[Hg] MD Eliel Hurd Work Phone: [facility] 02-17-2022 16:00-0400 Body temperature 97.5 [degF] Diana Cashen DO Work Phone: [facility] [employer] 02-17-2022 16:00-0400 Diastolic blood pressure 71 mm[Hg] Diana Cashen DO Work Phone: [facility] [employer] 02-17-2022 16:00-0400 Heart rate 101 /min Diana Cashen DO Work Phone: [facility] [employer] 02-17-2022 16:00-0400 Respiratory rate 23 /min Diana Cashen DO Work Phone: [facility] [employer] 02-17-2022 16:00-0400 SaO2% (BldA) [Mass fraction] 95 % Diana Cashen DO Work Phone: [facility] [employer] 02-17-2022 16:00-0400 Systolic blood pressure 134 mm[Hg] Diana Cashen DO Work Phone: [facility] 02-17-2022 07:21-0400 Body height 160 cm Diana Murguia DO Work Phone: [facility] 02-17-2022 07:21-0400 Body mass index (BMI) [Ratio] 34.05 kg/m2 Diana Murguia DO Work Phone: [facility] 02-17-2022 07:21-0400 Body weight 87.18 kg Diana Murguia DO Work Phone: [facility] 01-15-2022 15:34-0400 Body height 160 cm Fahad Russell MD Work Phone: [facility] 01-15-2022 15:34-0400 Body temperature 98.1 [degF] Fahad Russell MD Work Phone: [facility] 01-15-2022 15:34-0400 Body weight 87.59 kg Fahad Russell MD Work Phone: [facility] 01-15-2022 15:34-0400 Diastolic blood pressure 86 mm[Hg] Fahad Russell MD Work Phone: [facility] 01-15-2022 15:34-0400 Heart rate 72 /min Fahad Russell MD Work Phone: [facility] 01-15-2022 15:34-0400 Systolic blood pressure 149 mm[Hg] Fahad Russell MD Work Phone: [facility] 09-15-2021 15:45-0500 Body height 160.02 cm Franco Stokes Other [email or web address] Other 09-15-2021 15:45-0500 Body mass index (BMI) [Ratio] 34.36 kg/m2 Franco Stokes Other [email or web address] Other 09-15-2021 15:45-0500 Body weight 88 kg Franco Stokes Other [facility] [employer] Other 07-08-2021 14:14-0500 Body height 160.02 cm MD Eliel Hurd Work Phone: [facility] Encounters Encounter Date Encounter Type Care Provider Facility Start: 03-09-2024 End: 03-09-2024 ambulatory AWA [facility] Start: 03-09-2024 End: 03-09-2024 ambulatory AWA [facility] Start: 02-03-2024 End: 02-03-2024 ambulatory JESUS NGUYỄN Not Available Start: 01-18-2024 End: 01-18-2024 ambulatory JESUS NGUYỄN Not Available Start: 01-13-2024 End: 01-13-2024 ambulatory SHAIKH PATRIA Not Available Start: 01-10-2024 End: 01-10-2024 Patient encounter procedure MD Shaikh España Work Phone: [facility] [place] Work Phone: Start: 01-10-2024 End: 01-10-2024 ambulatory MD Shaikh España Work Phone: [facility] Work Phone: Start: 01-03-2024 End: [...] Start: 06-23-2023 ambulatory SYDNIE ANABEL Facility : [facility] Start: 05-04-2023 ambulatory SYDNIE ANABEL Facility : [facility] Start: 04-07-2023 End: 04-07-2023 Patient encounter procedure MD Eliel Hurd Work Phone: [facility] [address] Work Phone: Start: 04-07-2023 End: 04-07-2023 ambulatory MD Eliel Hurd Work Phone: [facility] Work Phone: Start: 02-15-2023 End: 02-16-2023 ambulatory Booker Lizarraga MD Facility:[facility] Start: 01-22-2023 ambulatory SYDNIE ANABEL Facility :[facility] Start: 01-11-2023 End: 01-12-2023 ambulatory Booker Lizarraga MD Facility: [facility] Start: 12-28-2022 ambulatory ANDRIUS GIEDRAGRETCHEN Faci lity:[facility] Start: 12-01-2022 ambulatory BRIEN B APLING Facility :[facility] Start: 11-25-2022 End: 11-25-2022 ambulatory MD Eliel Hurd Work Phone: [facility] Work Phone: Start: 11-25-2022 End: 11-25-2022 Registered Recurring MD Eliel Hurd Work Phone: [facility] Work Phone: Start: 09-18-2022 End: 09-18-2022 ambulatory MD Eliel Hurd Work Phone: [facility] Work Phone: Start: 09-18-2022 End: 09-18-2022 Registered Recurring MD Eliel Hurd Work Phone: [facility] Work Phone: Start: 08-14-2022 End: 08-14-2022 ambulatory MD Eliel Hurd Work Phone: [facility] Work Phone: Start: 08-14-2022 End: 08-14-2022 Registered Recurring MD Eliel Hurd Work Phone: [facility] Work Phone: Start: 08-06-2022 End: 08-06-2022 ambulatory MD Eliel Hurd Work Phone: [facility] Work Phone: Start: 08-06-2022 End: 08-06-2022 Registered Recurring MD Eliel Hurd Work Phone: [facility] Work Phone: Start: 07-23-[address] DOCTOR STRINGER Facility : Start: 07-22-2022 End: 07-22-2022 ambulatory MD Eliel Hurd Work Phone: [facility] Work Phone: Start: 07-22-2022 End: 07-22-2022 Registered Recurring MD Eliel Hurd Work Phone: [facility] Work Phone: Start: 06-19-2022 End: 06-19-2022 Patient encounter procedure MD Eliel Hurd Work Phone: [facility] [place] Work Phone: Start: 06-18-2022 End: 06-18-2022 ambulatory MD Eliel Hurd Work Phone: [facility] Work Phone: Start: 06-18-2022 End: 06-18-2022 Registered Recurring MD Eliel Hurd Work Phone: [facility] Start: 04-16-2022 End: 04-16-2022 ambulatory MD Eliel Hurd Work Phone: [facility] Work Phone: Start: 04-16-2022 End: 04-16-2022 Registered Recurring MD [facility] Start: 04-16-2022 End: 04-16-2022 Discharged Recurring MD Eliel Hurd Work Phone: [facility] Start: 04-14-2022 End: 04-15-[address] KRISTA ROBERTSON Facility:[facility] Start: 04-07-2022 End: 04-07-[address] CHIDI RINCON . Facility:[facility] Start: 04-05-2022 Encounter for genera l adult medical examination without abnormal findings DR ELIEL HURD . [facility] Start: 2022 End: 04-01-2022 Encounter for general adult medical examination without abnormal findings DR ELIEL HURD . Facility:[facility] Start: 2022 End: 04-01-[address] ELIEL HURD . Facility:[facility] Start: 03-20-2022 Registered Recurring MD Eliel rogers Work Phone: [facility] Start: 03-19-2022 End: 03-19-2022 Registered Recurring MD Eliel Hurd Work Phone: [facility] Start: 03-14-2022 End: 03-14-2022 ambulatory EARNEST HDZ Facility:[facility] Start: 03-12-2022 End: 03-12-2022 Registered Recurring MD [facility]urd [facility] Start: 02-18-2022 End: 02-19-2022 ambulatory [facility] Start: 02-17-2022 End: 02-20-[address] [facility] Start: 02-17-2022 End: 02-17-2022 ambulatory DIANA MURGUIA [facility] Start: 02-17-2022 End: 02-19-2022 Subsequent hospital visit by physician Jackie Everett Room 1 [facility] Nuclear Medicine Comment on above: [...] 02-04-2022 End: 02-07-2022 ambulatory ELIEL Rouse HURD [facility] Start: 02-04-2022 End: 02-06-2022 Subsequent hospital visit by physician Lesly Su Mri [facility] MRI Comment on above: Malignant neoplasm o f right female breast, unspecified estrogen receptor status, unspecified site of breast (HCC) Start: 01-29-2022 Telephone encounter Xiomara tolliver MD Work Phone: [facility] Comment on above: Appointment Start: 01-15-2022 End: 01-15-2022 Patient encounter procedure Fahad Russell MD Work Phone: Plastic Surgery Comment on above: History of breast ca ncer (Primary Dx); Breast asymmetry following reconstructive surgery Start: 01-15-2022 Telephone encounter Xiomara tolliver MD Work Phone: [facility] Comment on above: Appointment Start: 09-15-2021 End: 09-15-2021 ambulatory Franco Stokes Other [facility] [employer] Other Start: 09-15-2021 Office outpatient ne w 30 minutes Franco Stokes [facility] Neurosurgery Start: 05-27-1998 End: 05-27-1998 Patient encounter procedure Conversion José Meyer [facility] Start: 05-27-1998 Results Only Conversion Beaker Ap [facility] Procedures Date Procedure Procedure Detail Performing Clinician [...] MD Work Phone: Start: 05-27-1998 CONVERTED CYTOLOGY 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 Conversion José Ap Biopsy of breast Ismael [...] 04-27-2028 Screening for malignant neoplasm of cervix [facility] Start: 04-07-2027 Screening for malignant neoplasm of cervix Pap Smear [facility] Start: 04-17-2024 End: 04-17-2024 Patient encounter procedure 04/17/2024 3:00 PM EDT Office Visit [facility] [address] [place] [id number] Chidi Rincon, DO [address] [place] [address] [facility] Start: 01-10-2024 MR Breast - bilateral [facility] Start: 01-10-2024 MRI of bilateral breasts with contrast MR breast BI wo/w con CAD [facility] Start: 08-25-2023 End: 08-25-2024 XR Hand - left 3 Views XR hand 3+ views left Imaging Routine Left wrist pain Pain of left thumb Expected: 08/25/2023, Expires: 08/25/2024 [facility] Comment on above: Expected: 08/25/2023, Expires: Start: 08-25-2023 End: 08-25-2024 XR Wrist - left 3 Views XR wrist 3+ views left Imaging Routine Left wrist pain Pain of left thumb Expected: 08/25/2023, Expires: 08/25/2024 [facility] Work Phone: Comment on above: Expected: 08/25/2023, Expires: Start: 04-07-2023 [facility] Start: 03-19-2023 Influenza vaccination Influenza Vaccine (#1) [facility] Start: 09-04-2022 End: 09-04-2022 [facility] Start: 09-03-2022 [facility] Start: 08-07-2022 [facility] Start: 08-05-2022 [facility] Start: 07-22-2022 Adrenocorticotropic hormone measurement [facility] Start: 07-22-2022 [facility] Start: 07-09-2022 [facility] Start: 06-19-2022 [facility] Start: 06-18-2022 [facility] Start: 06-17-2022 Adrenocorticotropic hormone measurement [facility] Start: 05-28-2022 [facility] Start: 04-22-2022 Mammography MAMMOGRAM [facility] Start: 03-20-2022 Registered Recurring Registered Recurring [facility] - [facility] Start: 03-19-2022 Influenza vaccination [facility] Start: 03-04-2022 End: 03-04-2022 Patient encounter procedure 03/04/2022 Office Visit [place] [id number] [id number] [facility] Start: 03-04-2022 End: 03-04-2022 Patient encounter procedure 03/04/2022 Office Visit General Surgery Diana Murguia P, DO [address] [facility] [address] [place] [address] [facility] Start: 02-17-2022 End: 02-17-2022 Mast modf rad w/ax lymph nod w/wo pect/gonzalo min BREAST MASTECTOMY RECONSTRUCTION Malignant neoplasm of right female breast, unspecified estrogen receptor status, unspecified site of breast (HCC) 02/17/2022 10:22 AM [facility] Start: 02-17-2022 End: 02-17-2022 Mastectomy partial BREAST LUMPECTOMY PARTIAL MASTECTOMY Malignant neoplasm of right female breast, unspecified estrogen receptor status, unspecified site of breast (HCC) 02/17/2022 10:22 AM [facility] Start: 02-09-2022 End: 02-09-2022 Patient encounter procedure 02/09/2022 Office Visit General Surgery Diana Murguia, DO [address] [facility] [address] [place] [address] [facility] Start: 12-17-2021 [facility] Start: 11-26-2021 [facility] Start: 11-05-2021 [facility] Start: 10-15-2021 [facility] Start: 09-30-2021 [facility] Start: 09-24-2021 [facility] Start: 09-24-2021 [facility] Start: 09-17-2021 End: 09-17-2021 [facility] Start: 09-16-2021 End: 09-16-2021 [facility] Start: 09-11-2021 End: 09-11-2021 [facility] Start: 09-04-2021 [facility] Start: 08-27-2021 [facility] Start: 08-20-2021 [facility] Start: 08-14-2021 [facility] Start: 08-13-2021 End: 08-14-2021 [facility] Start: 07-30-2021 [facility] Start: 07-28-2021 [facility] Start: 07-21-2021 End: 07-22-2021 [facility] Start: 01-18-2021 COVID-19 VACCINE (3 - Booster for Moderna series) COVID-19 VACCINE (3 - Booster for Moderna series) [facility] Start: 2017 Lipid panel Lipids [facility] Start: 2012 Diabetes screen Diabetes screen [facility] Start: 2007 HPV TESTING HPV TESTING [facility] Start: 2007 Screening for malignant neoplasm of cervix [facility] [place] [facility] Start: 1998 PAP TESTING PAP TESTING [facility] Start: 1998 Screening for malignant neoplasm of cervix Pap smear [facility] [place] [facility] Start: 1996 DTaP/Tdap/Td vaccine (1 - Tdap) DTaP/Tdap/Td vaccine (1 - Tdap) [facility] [employer] Start: 1996 Urine microalbumin profile DTAP,TDAP,TD (1 - Tdap) [facility] Start: 1995 HEPATITIS C SCREENING HEPATITIS C SCREENING [facility] Start: 1995 Hepatitis C screening Hepatitis C screen [facility] Start: 1995 HIV SCREENING HIV SCREENING [facility] Start: 1992 HIV screening HIV screen [email or web address] Start: 1989 Adult depression screening assessment [facility] Start: 1989 Depression Screen Depression Screen [facility] Start: 1977 COVID-19 Vaccine (#1) COVID-19 Vaccine (#1) [facility] [employer] Start: 1977 Screening for malignant neoplasm of colon [facility] Adrenocorticotropic hormone measurement [facility] Work Phone: Adrenocorticotropic hormone measurement [facility] Adrenocorticotropic hormone measurement [facility] Adrenocorticotropic hormone measurement [facility] Adrenocorticotropic hormone measurement [facility] Adrenocorticotropic hormone measurement [facility] Basophils [#/volume] in Blood by Automated count [facility] Basophils/100 leukoc ytes in Blood by Automated count [facility] Comprehensive metabo lic 1999 panel - Serum or Plasma [facility] Work Phone: Comprehensive metabo lic 1999 panel - Serum or Plasma [facility] Comprehensive metabo lic 1999 panel - Serum or Plasma [facility] Comprehensive metabo lic 1999 panel - Serum or Plasma [facility] Comprehensive metabo lic 1999 panel - Serum or Plasma [facility] Comprehensive metabo lic 1999 panel - Serum or Plasma [facility] Comprehensive metabo lic 1999 panel - Serum or Plasma [facility] Comprehensive metabo lic 1999 panel - Serum or Plasma [facility] Comprehensive metabo lic 1999 panel - Serum or Plasma [facility] Cortisol [Mass/volum e] in Serum or Plasma [facility] Work Phone: Cortisol [Mass/volum e] in Serum or Plasma [facility] Cortisol [Mass/volum e] in Serum or Plasma [facility] Cortisol [Mass/volum e] in Serum or Plasma [facility] Cortisol [Mass/volum e] in Serum or Plasma [facility] Cortisol [Mass/volum e] in Serum or Plasma [facility] CT Head WO and W contrast IV [facility] Work Phone: CT Head WO and W contrast IV [facility] Eosinophils [#/volum e] in Blood [facility] Eosinophils/100 leuk ocytes in Blood by Automated count [facility] Erythrocyte distribu tion width [Ratio] by Automated count [facility] Erythrocytes [#/volu me] in Blood [facility] Hematocrit [Volume F raction] of Blood [facility] Hemoglobin [Mass/vol ume] in Blood [facility] End: 02-17-2022 INITIATE PACU OXYGEN THERAPY PROTOCOL Initiate PACU Oxygen Therapy Protocol Respiratory Care Routine Continuous until discontinued starting 02/17/2022 [facility] [employer] Work Phone: Comment on above: Continuous until discontinued starting 0 02/17/2022 Leukocytes [#/volume ] corrected for nucleated erythrocytes in Blood by Automated coun [facility] Leukocytes [#/volume ] in Blood [facility] Lymphocytes [#/volum e] in Blood by Automated count [facility] Lymphocytes/100 leuk ocytes in Blood by Automated count [facility] End: 02-17-2022 WILLIE NEEDLE LOCALIZATION RIGHT WILLIE NEEDLE LOCALIZATION RIGHT Imaging Routine Abnormal mammogram Once for 1 Occurrences starting 02/17/2022 until 02/17/2022 [facility] [employer] Work Phone: Comment on above: Once for 1 Occurrences starting 02/18/20 until 02/17/2022 MCH [Entitic mass] b y Automated count [facility] MCHC [Mass/volume] b y Automated count [facility] MCV [Entitic volume] by Automated count [facility] MG Breast - bilatera l Diagnostic [facility] Monocytes [#/volume] in Blood by Automated count [facility] Monocytes/100 leukoc ytes in Blood by Automated count [facility] Neutrophils [#/volum e] in Blood by Automated count [facility] Neutrophils/100 leuk ocytes in Blood by Automated count [facility] Nucleated erythrocyt es [Presence] in Blood by Automated count [facility] Oxygen therapy [Mini mum Data Set] Initiate Oxygen Therapy Protocol Respiratory Care Routine Daily until discontinued starting 02/17/2022 [employer] Work Phone: Comment on above: Daily until discontinued starting 2021 Platelet mean volume [Entitic volume] in Blood by Automated count [facility] Platelets [#/volume] in Blood [facility] Surgical Pathology Surgical Path ology Lab Routine Malignant neoplasm of right female breast, unspecified estrogen receptor status, unspecified site of breast (HCC) Release Upon Ordering for 1 Occurrences starting 02/17/2022 [facility] Phone: Comment on above: Release Upon Ordering for 1 Occurrences starting 02/17/2022 End: 02-17-2022 SURGICAL PATHOLOGY REPORT SURGICAL PATHOLOGY REPORT Lab Routine Once for 1 Occurrences starting 02/17/2022 until 02/17/2022 [facility] Phone: Comment on above: Once for 1 Occurrences starting 02/18/20 until 02/17/2022 Thyrotropin [Units/v olume] in Serum or Plasma [facility] Work Phone: Thyrotropin [Units/v olume] in Serum or Plasma [facility] Thyrotropin [Units/v olume] in Serum or Plasma [facility] Thyrotropin [Units/v olume] in Serum or Plasma [facility] Thyrotropin [Units/v olume] in Serum or Plasma [facility] Thyrotropin [Units/v olume] in Serum or Plasma [facility] Thyroxine (T4) free [Mass/volume] in Serum or Plasma [facility] Work Phone: Thyroxine (T4) free [Mass/volume] in Serum or Plasma [facility] Thyroxine (T4) free [Mass/volume] in Serum or Plasma [facility] Thyroxine (T4) free [Mass/volume] in Serum or Plasma [facility] Thyroxine (T4) free [Mass/volume] in Serum or Plasma [facility] Thyroxine (T4) free [Mass/volume] in Serum or Plasma [facility] Immunizations Immunization Date Immunization Notes Care Provider Fa cility 08-21-2020 Moderna SARS-CoV-2 Vaccination Shaikh Patria POZO Work Phone: [facility] 07-25-2020 Moderna SARS-CoV-2 Vaccination Shaikh Patria POZO Work Phone: [facility] 04-26-2018 influenza, injectabl e, quadrivalent, preservative free Shaikh Patria POZO Work Phone: [facility] 04-26-2018 influenza virus vacc ine, unspecified formulation Shaikh Patria POZO Work Phone: [facility] Payers Date Payer Category Payer Self-pay [id number] 2022 Unknown 2022 Unknown [id number] 2021 Unknown MMO MMO [employer] [id number] 2021-Present [phone] [address] [place] [address] PPO [id number] 2019 Unknown [id number] 2.16.840.1.435259.19 1977 Unknown [id number] 2.16.840.1.339856.3.579.2.177 1977 Unknown [id number] 2.16.840.1.028930.3.579.2.177 1977 Unknown [id number] 2.16.840.1.609264.3.579.2.175 1977 Unknown [id number] 2.16.840.1.087930.3.579.2.175 1977 Unknown [id number] 2.16.840.1.165054.3.579.2.593 1977 Unknown [id number] 2.16.840.1.152898.3.579.2.593 1977 Unknown [id number] 2.16.840.1.336722.3.579.2.593 1977 Unknown [id number] 2.16.840.1.009465.3.579.2.593 1977 Unknown [id number] 2.16.840.1.170883.3.579.2.593 1977 Unknown [id number] 2.16.840.1.369268.3.579.2.593 1977 Unknown [id number] 2.16.840.1.712638.3.579.2.593 1977 Unknown [id number] 2.16.840.1.664664.3.579.2.593 1977 Unknown [id number] 2.16.840.1.729695.3.579.2.196 1977 Unknown [id number] 2.16.840.1.670855.3.579.2.196 1977 Unknown [id number] 2.16.840.1.776094.3.579.2.727 1977 Unknown [id number] 2.16.840.1.639312.3.579.2.727 1977 Unknown [id number] 2.16.840.1.312801.3.579.2.9 1977 Unknown [id number] 2.16.840.1.155662.3.579.2.9 1977 Unknown [id number] 2.16.840.1.321693.3.579.2.1258 1977 Unknown [id number] 2.16.840.1.716804.3.579.2.9 1977 Unknown [id number] 2.16.840.1.871706.3.579.2.1258 1977 Unknown [id number] 2.16.840.1.000946.3.579.2.9 1977 Unknown [id number] 2.16.840.1.006655.3.579.2.1258 1977 Unknown [id number] 2.16.840.1.630141.3.579.2.1258 1977 Unknown [id number] 2.16.840.1.147743.3.579.2.9 Unknown [id number] Unknown HCAP/HFA/FAP Active [id number] Unknown [id number] 2.16.840.1.849237.3.579.2.531 Unknown [id number] 2.16.840.1.429923.3.579.2.531 Social History Date Type Detail Facility [facility] Start: 1975 Sex Assigned At Not on file [facility] Start: 04-12-2023 Sex Assigned At F [facility] Start: 01-15-2022 End: 11-25-2022 Tobacco smoking status NHIS Ex-smoker [facility] Start: 01-15-2022 End: 02-01-2023 Tobacco use and exposure Smokeless tobacco non-user [facility] Start: 1975 Sex Assigned At Female [facility] Start: 01-13-2022 End: 02-17-2022 Exposure to SARS-CoV-2 (event) Not sure [facility] History of tobacco use Current smoker [facility]: Start: 02-04-2022 Tobacco use and exposure Former smokeless tobacco user [facility] Phone: Start: 02-17-2022 End: 08-25-2023 Alcohol intake Lifetime non-drinker (finding) [facility] Phone: Start: 02-01-2023 End: 11-03-2023 Tobacco smoking status NHIS Never smoked tobacco [facility] Start: 04-12-2023 History of Social function [facility] Start: 03-01-2023 Alcohol Comment caffeine: 1-2 cups per day coffee [facility] Tobacco smoking status Never Gener al [facility] Functional Status Date Assessment Result Facility 11-03-2023 Functional Status N/A [facility] Clinical Notes 07-08-2021 to 03-09-2024 Shaikh [...] which she received immunotherapy with Keytruda from [id number]. She developed severe fatigue and weakness after [...] Behavior: Behavior normal. LABS: Recent Data from [facility] Related to ALL THYROID STIM HORMONE Component [...] not able t (more content not included)... [facility] 11-03-2023 Note Chief Complaint consultation for [...] ligation. Medications buPR (more content not included)... [facility] Comment on above: Result Comment: Elec tronically Signed By: ANTONELLA POZO, Ismael Christianson\radha\Date and Time Signed: 11/03/23 16:46 EDT 08-25-2023 History of Present illness Narrative Xr wrist documented in this encounter [facility] 09-19-2022 Progress note Note Date/Time September 18, 2022 1:44pm [facility] [place] [address] Hem/Onc Follow Up Note - OP Signed Patient: Tenisha Hancock MR#: [id number] : 1975 Acct:[id number] Age/Sex: 47 / F Type: REG RCR [...] hydrocortisone 20mg am/10mg pm. Will f/u with PRIMARY CLASS TEACHER next week to review symptoms. We may [...] right mastopexy on 02/17/2022 by Drs. Saunders/Drew ([facility]). Her pathology returned with no [...] Simons and has an appointment scheduled at [facility] to discuss josep flap surgery as well. [...] overall good. BRCA testing was done through [facility] and is negative. She does have left [...] I willdefer to his impression and recommendations. 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 This is a 46-year-old female who works at [employer] with triple negative breast cancer, referred for neoadjuvant chemotherapy. Mammogramon on April 22, 2021 showed 3 new focal masses with the largest measuring 2 cm in size in the right breast. 2 additional lesions measuring 1 cm and a second 0.9 cm were also seen. The patient was referred for biopsy. Needle biopsy showed triple negative breast cancer, ER negative, GA negative, and H ER 2 -. The patient was referred to Dr. Ismael Red for Fuassv-b-Uxnx which she has had placed. She has seen my colleague Dr. Smith at the [facility] recommended neoadjuvant chemotherapy and immunotherapy. Because of insurance reasons, she will be getting her treatment here at [facility]. She has had echocardiography as well. According the patient an MRI was obtained prior to neoadjuvant therapy while she was at [facility] we are requesting this prior [...] showed triple negative breast cancer, ER negative, GA negative, and HER 2 -. The patient was referred to Dr. Ismael Red for Fgouhu-t-Krjw which she has had placed. [facility]. Because of insurance reasons, she will be getting her treatment here at [facility]. She has had echocardiography as well. PET/CT [...] 9 cycles --Original breast MRI obtained from [facility] from May 2021, follow-up breast [...] preoperatively in late December. 2. 02/17/2022 at [facility], Drs. Saunders/Shantal: needle localized lumpectomy [...] Allergies Allergy (Verified 09/18/22 13:38) Home Medications cmudtod-dheaqpnefbwhm-xzqtapzb 250 mg-250 mg-65 mg tablet (Excedrin Migraine) [...] % (Auto) 91.1, Lymph % (Auto) 6.2, [place] % (Auto) 2.3, Eos % (Auto) 0.1, Baso % (Auto) 0.3, Nucleat RBC Rel Count 0.1, Neut # (Auto) 10.4 H, Lymph # (Auto) 0.7 L, [place] # (Auto) 0.3, Eos # (Auto) 0.0, [...] see in consultation by Dr. Smith at [facility] in [place], [place]; however, due to insurance reasons the patient transferredcare to [facility]. In reviewing notes from her prior physician [...] do not have records from this from [facility] in [place]. I am requesting this to evaluate her [...] testing returned negative from prior physicians at [facility]. BRCA testing negative Follow-up September is [...] We will review her prior MRI from [facility] in May 2021 in comparison [...] other significant toxicities. MRI was reviewed and [facility] tumor board with Dr. 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 Completed adjuvant radiation then we resumed [...] with sentinel lymph node biopsy 02/17/2022 in [place]. Adjuvant radiation completed 05/04-06/16/2022. Total of 30 [...] for coordination of care (as documented) and uxyr-kt-jpli counseling of patient and/or family. Dictated By: Kallie Chang MD DD/ [id number] Signed By: <Electronically signed by MD Kallie Chang> 09/18/22 7633 [facility] Work Phone: 1(936) 343-780402-18-2023 Progress note Author Kallie Chang [facility] September 04, 2022 10:35pm Note Date/Time September 04, 2022 1:11pm [facility] at [address] [address] Hem/Onc Follow Up Note - OP Signed Patient: Tenisha Hancock MR#: [id number] : 1975 Acct:[id number] Age/Sex: 47 / F Type: REG RCR [...] hydrocortisone 20mg am/10mg pm. Will f/u with PRIMARY CLASS TEACHER next week to review symptoms. We may [...] right mastopexy on 02/17/[address] Saunders/Drew ([facility]). Her pathology returned with no [...] Simons and has an appointment scheduled at [facility] to discuss josep flap surgery as well. [...] overall good. BRCA testing was done through [facility] and is negative. She does have left [...] I willdefer to his impression and recommendations. 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 This is a 46-year-old female who works at [employer] with triple negative breast cancer, referred for neoadjuvant chemotherapy. Mammogramon on April 22, 2021 showed 3 new focal masses with the largest measuring 2 cm in size in the right breast. 2 additional lesions measuring 1 cm and a second 0.9 cm were also seen. The patient was referred for biopsy. Needle biopsy showed triple negative breast cancer, ER negative, GA negative, and H ER 2 -. The patient was referred to Dr. Ismael Red for Dvgnpq-v-Loei which she has had placed. She [facility]. Because of insurance reasons, she will be getting her treatment here at [facility]. She has had echocardiography as well. According the patient an MRI was obtained prior to neoadjuvant therapy while she was at [facility] we are requesting this prior [...] showed triple negative breast cancer, ER negative, GA negative, and HER 2 -. The patient was referred to Dr. Ismael Red for Teqtkk-k-Qsof which she has had placed. She has seen my colleague Dr. Smith at the [facility] recommended neoadjuvant chemotherapy and immunotherapy. Because of insurance reasons, she will be getting her treatment here at [facility]. She has had echocardiography as well. PET/CT [...] 9 cycles --Original breast MRI obtained from [facility] from May 2021, follow-up breast [...] preoperatively in late December. 2. 02/17/2022 at [facility], Drs. Saunders/hSantal: needle localized lumpectomy with oncoplastic reconstruction of [...] Allergies Allergy (Verified 09/04/22 13:03) Home Medications sjwunpd-vvgvfumsmubky-hciyceux 250 mg-250 mg-65 mg tablet (Excedrin Migraine) [...] see in consultation by Dr. Smith at [facility] in [place], [place]; however, due to insurance reasons the patient transferredcare to [facility]. In reviewing notes from her prior [...] do not have records from this from [facility] in [place]. I am requesting this to evaluate her [...] testing returned negative from prior physicians at [facility] clinic. BRCA testing negative Follow-up September is [...] We will review her prior MRI from [facility] in May 2021 in comparison [...] other significant toxicities. MRI was reviewed and [facility] tumor board with Dr. 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 Completed adjuvant radiation then we resumed [...] for coordination of care (as documented) and yhox-gb-clfw counseling of patient and/or family. Dictated By: Kallie Chang MD DD/ [id number] Signed By: <Electronically signed by MD Kallie Chang> 09/04/22 0629 [facility] Work Phone: 1(184) 320-577502-03-2023 Progress note Author Heber Arriaga [facility] August 21, 2022 1:13pm Note Date/Time August 14, 2022 2 :16pm [facility] [place] [id number] Hem/Onc Follow Up Note - OP Signed Patient: Tenisha Hancock MR#: [id number] : 1975 Acct:[id number] Age/Sex: 47 / F Type: REG RCR [...] hydrocortisone 20mg am/10mg pm. Will f/u with PRIMARY CLASS TEACHER next week to review symptoms. We may [...] right mastopexy on 02/17/[address] Saunders/Drew ([facility]). Her pathology returned with no [...] Simons and has an appointment scheduled at [facility] to discuss josep flap surgery as well. [...] overall good. BRCA testing was done through [facility] and is negative. She does have left [...] I willdefer to his impression and recommendations. 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 This is a 46-year-old female who works at [employer] with triple negative breast cancer, referred for neoadjuvant chemotherapy. Mammogramon on April 22, 2021 showed 3 new focal masses with the largest measuring 2 cm in size in the right breast. 2 additional lesions measuring 1 cm and a second 0.9 cm were also seen. The patient was referred for biopsy. Needle biopsy showed triple negative breast cancer, ER negative, GA negative, and H ER 2 -. The patient was referred to Dr. Ismael Red for Hbdtdd-j-Lkks which she has had placed. [facility]. Because of insurance reasons, she will be getting her treatment here at [facility]. She has had echocardiography as well. According [...] showed triple negative breast cancer, ER negative, GA negative, and HER 2 -. The patient was referred to Dr. Ismael Red for Usjnwg-x-Yrtw which she has had placed. She [facility]. Because of insurance reasons, she will be getting her treatment here at [facility]. She has had echocardiography as well. PET/CT [...] 9 cycles --Original breast MRI obtained from [facility] from May 2021, follow-up breast [...] preoperatively in late December. 2. 02/17/2022 at [facility], Drs. Saunders/Shantal: needle localized lumpectomy [...] Allergies Allergy (Verified 08/06/22 13:31) Home Medications chuyupg-tggpzktjxqhbl-kfzbftdy 250 mg-250 mg-65 mg tablet (Excedrin Migraine) [...] see in consultation by Dr. Smith at [facility] in [place], [place]; however, due to insurance reasons the patient transferredcare to [facility]. In reviewing notes from her prior physician [...] do not have records from this from [facility] in [place]. I am requesting this to evaluate her [...] testing returned negative from prior physicians at [facility]. BRCA testing negative Follow-up September is [...] We will review her prior MRI from [facility] in May 2021 in comparison [...] other significant toxicities. MRI was reviewed and [facility] tumor board with Dr. 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 Completed adjuvant radiation then we resumed [...] for coordination of care (as documented) and ntsq-tn-ulvx counseling of patient and/or family. Dictated By: Heber Arriaga APRN DD/ [id number] Signed By: <Electronically signed by PETE Arriaga> 08/21/22 1313 [facility] Work Phone: 1(316) 259-824001-20-2023 Progress note Author Kallie Chang [facility] August 07, 2022 1:00pm Note Date/Time August 06, 2022 1 :39pm [facility] [place] [address] Hem/Onc Follow Up Note - OP Signed Patient: Tenisha Hancock MR#: [id number] : 1975 Acct:[id number] Age/Sex: 47 / F Type: REG RCR [...] hydrocortisone 20mg am/10mg pm. Will f/u with PRIMARY CLASS TEACHER next week to review symptoms. We may [...] right mastopexy on 02/17/[address] Saunders/Drew ([facility]). Her pathology returned with no [...] Simons and has an appointment scheduled at [facility] to discuss josep flap surgery as well. [...] overall good. BRCA testing was done through [facility] and is negative. She does have left [...] I willdefer to his impression and recommendations. 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 This is a 46-year-old female who works at [employer] with triple negative breast cancer, referred for neoadjuvant chemotherapy. Mammogramon on April 22, 2021 showed 3 new focal masses with the largest measuring 2 cm in size in the right breast. 2 additional lesions measuring 1 cm and a second 0.9 cm were also seen. The patient was referred for biopsy. Needle biopsy showed triple negative breast cancer, ER negative, GA negative, and H ER 2 -. The patient was referred to Dr. Ismael Red for Lcngfo-d-Evit which she has had placed. [facility]. Because of insurance reasons, she will be getting her treatment here at [facility]. She has had echocardiography as well. According the patient an MRI was obtained prior to neoadjuvant therapy while she was at [facility] we are requesting this prior [...] showed triple negative breast cancer, ER negative, GA negative, and HER 2 -. The patient was referred to Dr. Ismael Red for Zdgzzn-e-Ekqm which she has had placed. She has [facility]. Because of insurance reasons, she will be getting her treatment here at [facility]. She has had echocardiography as well. PET/CT [...] 9 cycles --Original breast MRI obtained from [facility] from May 2021, follow-up breast [...] preoperatively in late December. 2. 02/17/2022 at [facility], Drs. Saunders/Shantal: needle localized lumpectomy [...] Allergies Allergy (Verified 08/06/22 13:31) Home Medications sjlgtsh-ucthbywpvjetz-utccsayv 250 mg-250 mg-65 mg tablet (Excedrin Migraine) [...] % (Auto) 92.9, Lymph % (Auto) 5.5, Lagrange % (Auto) 1.4, Eos % (Auto) 0.0, Baso % (Auto) 0.2, Nucleat RBC Rel Count 0.0, Neut # (Auto) 8.7 H, Lymph # (Auto) 0.5 L, Lagrange # (Auto) 0.1, Eos # (Auto) 0.0, [...] see in consultation by Dr. Smith at [facility] in [place], [place]; however, due to insurance reasons the patient transferredcare to [facility]. In reviewing notes from her prior physician [...] do not have records from this from [facility] in [place]. I am requesting this to evaluate her [...] testing returned negative from prior physicians at [facility]. BRCA testing negative Follow-up September is [...] We will review her prior MRI from [facility] in May 2021 in comparison [...] other significant toxicities. MRI was reviewed and [facility] tumor board with Dr. Reza and [...] symptom review on chemotherapy, coordination with Dr. Simosn and Dr. Reza of breast surgery for [...] small focus of residual DCIS, ER 5%, GA 0%. Completed adjuvant radiation then we resumed [...] with sentinel lymph node biopsy 02/17/2022 in [place]. Adjuvant radiation completed 05/04-06/16/2022. Total of 30 [...] for coordination of care (as documented) and tquu-sc-gbly counseling of patient and/or family. Dictated By: Kallie Chang MD DD/ 1338 Signed By: <Electronically signed by MD Kallie Chang> 08/07/22 [address] [facility] Work Phone: 1(269) 724-233801-06-2023 Progress note Author Kallie Chang [facility] July 24, 2022 11:26am Note Date/Time July 23, 2022 1: 43pm [facility] [place] [address] Hem/Onc Follow Up Note - OP Signed Patient: Tenisha Hancock MR#: [id number] : 1975 Acct:[id number] Age/Sex: 47 / F Type: REG RCR [...] hydrocortisone 20mg am/10mg pm. Will f/u with PRIMARY CLASS TEACHER next week to review symptoms. We may [...] right mastopexy on 02/17/2022 [address] Drs. Saunders/Drew ([facility]). Her pathology returned with no [...] Simons and has an appointment scheduled at [facility] to discuss josep flap surgery as well. [...] overall good. BRCA testing was done through [facility] and is negative. She does have left [...] I willdefer to his impression and recommendations. 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 This is a 46-year-old female who works at [employer] with triple negative breast cancer, referred for neoadjuvant chemotherapy. Mammogram onon April 22, 2021 showed 3 new focal masses with the largest measuring 2 cm in size in the right breast. 2 additional lesions measuring 1 cm and a second 0.9 cm were also seen. The patient was referred for biopsy. Needle biopsy showed triple negative breast cancer, ER negative, GA negative, and H ER 2 -. The patient was referred to Dr. Ismael Red for Gjbktw-x-Ylvd which she has had placed. She has seen my [facility]. [facility] whorecommended neoadjuvant chemotherapy and immunotherapy. Because of insurance reasons, she will be getting her treatment here at [facility]. She has had echocardiography as well. According the patient an MRI was obtained prior to neoadjuvant therapy while shewas at [facility] we are requesting this prior [...] showed triple negative breast cancer, ER negative, GA negative, and HER 2 -. The patient was referred to Dr. Ismael Red for Otpnpi-k-Mqpz which she has had placed. She has [facility]. Because of insurance reasons, she will be getting her treatment here at [facility]. She has had echocardiography as well. PET/CT [...] 9 cycles --Original breast MRI obtained from [facility] from May 2021, follow-up breast [...] preoperatively in late December. 2. 02/17/2022 at [facility], Drs. Saunders/Drew: needle localized lumpectomy [...] Allergies Allergy (Verified 07/23/22 13:29) Home Medications wyziamw-tdnxhslwxrcrp-lgicqilo 250 mg-250 mg-65 mg tablet (Excedrin Migraine) [...] % (Auto) 71.8, Lymph % (Auto) 19.9, Lagrange % (Auto) 6.3, Eos % (Auto) 1.3, Baso % (Auto) 0.7, Nucleat RBC Rel Count 0.2, Neut # (Auto) 4.6, Lymph # (Auto) 1.3, Lagrange # (Auto) 0.4, Eos # (Auto) 0.1, [...] see in consultation by Dr. Smith at [facility] in [place], [place]; however, due to insurance reasons the patient transferredcare to [facility]. In reviewing notes from her prior physician [...] do not have records from this from [facility] in [place]. I am requesting this to evaluate her [...] testing returned negative from prior physicians at [facility]. BRCA testing negative Follow-up September is [...] We will review her prior MRI from [facility] in May 2021 in comparison [...] other significant toxicities. MRI was reviewed and [facility] tumor board with Dr. Reza and [...] with sentinel lymph node biopsy 02/17/2022 in [place]. Adjuvant radiation completed 05/04-06/16/2022. Total of 30 [...] for coordination of care (as documented) and pwyy-ew-oyma counseling of patient and/or family. Dictated By: Kallie Chang MD DD/ 1342 Signed By: <Electronically signed by MD Kallie Chang> 07/24/22 [address] [facility] Work Phone: 1([phone]) 748-970412-28-2022 Progress note Author Stacie Thomas [facility] July 15, 2022 1:57pm Note Date/Time July 15, 2022 9:31am [facility] [place] [address] Rad Onc Follow Up Note - OP Signed Patient: Tenisha Hancock MR#: [id number] : 1975 Acct:[id number] Age/Sex: 47 / F Type: REG RCR [...] 0 out of 5 lymph nodes involved. [id number]. In review of her operative note as [...] advanced disease. She received total of 50 Benaviedz in 25 fractions followed by a 10 [...] ductal carcinoma, 9 mm, provisional grade 3, ER/GA negative and HER2 negative. Per the available notes her BRCA testing was done through [facility] and was negative. Also appears the right breast mass was palpable in the lower mid quadrant of the breast. [facility]. Due to insurance reasons she received her systemic therapy here at [facility]. PET/CT was denied by insurance. CT scan of the chest abdomen pelvis on July 16, 2021 was negative for metastatic disease. Her clinical stage at presentation was cT2N0. June 11, 2021 patient did undergo an MRI in [place]. I do not have that report available [...] 0 out of 5 lymph nodes negative. [id number]. Pathology was negative for LVSI. Of note [...] signed by Stacie Thomas MD> 07/15/22 [address] [facility] Work Phone: 1(500) 411-201312-02-2022 Progress note Author Kallie Chang [facility] June 19, 2022 9:06am Note Date/Time June 18, 2022 1 0:26am [facility] [place] [address] Hem/Onc Follow Up Note - OP Signed Patient: Tenisha Hancock MR#: [id number] : 1975 Acct:[id number] Age/Sex: 47 / F Type: REG RCR [...] hydrocortisone 20mg am/10mg pm. Will f/u with PRIMARY CLASS TEACHER next week to review symptoms. We may [...] right mastopexy on 02/17/2022 [address] Drs. Saunders/Drew ([facility]). Her pathology returned with no [...] Simons and has an appointment scheduled at [facility] to discuss josep flap surgery as well. [...] overall good. BRCA testing was done through [facility] and is negative. She does have left [...] I willdefer to his impression and recommendations. 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 This is a 46-year-old female who works at [employer] with triple negative breast cancer, referred for neoadjuvant chemotherapy. Mammogramon on April 22, 2021 showed 3 new focal masses with the largest measuring 2 cm in size in the right breast. 2 additional lesions measuring 1 cm and a second 0.9 cm were also seen. The patient was referred for biopsy. Needle biopsy showed triple negative breast cancer, ER negative, GA negative, and H ER 2 -. The patient was referred to Dr. Ismael Red for Icwmsp-p-Vtgj which she has had placed. She has seen my colleague Dr. Smith at the [facility] recommended neoadjuvant chemotherapy and immunotherapy. Because of insurance reasons, she will be getting her treatment here at [facility]. She has had echocardiography as well. According the patient an MRI was obtained prior to neoadjuvant therapy while she was at [facility] we are requesting this prior [...] showed triple negative breast cancer, ER negative, GA negative, and HER 2 -. The patient was referred to Dr. Ismael Red for Ntnefm-f-Wawd which she has had placed. She has seen my colleague Dr. Smith at the [facility] recommended neoadjuvant chemotherapy and immunotherapy. Because of insurance reasons, she will be getting her treatment here at [facility]. She has had echocardiography as well. PET/CT [...] 9 cycles --Original breast MRI obtained from [facility] from May 2021, follow-up breast [...] preoperatively in late December. 2. 02/17/2022 at [facility], Drs. Saunders/Drew: needle localized lumpectomy [...] Allergies Allergy (Verified 03/12/22 08:56) Home Medications mxuqtms-cesvvpbalzajp-xojizjxe 250 mg-250 mg-65 mg tablet (Excedrin Migraine) [...] % (Auto) 69.1, Lymph % (Auto) 17.2, Lagrange % (Auto) 10.3, Eos % (Auto) 2.7, Baso % (Auto) 0.7, Nucleat RBC Rel Count 0.0, Neut # (Auto) 3.5, Lymph # (Auto) 0.9 L, Lagrange # (Auto) 0.5, Eos # (Auto) 0.1, [...] see in consultation by Dr. Smith at [facility] in [place], [place]; however, due to insurance reasons the patient transferredcare to [facility]. In reviewing notes from her prior physician [...] do not have records from this from [facility] in [place]. I am requesting this to evaluate her [...] testing returned negative from prior physicians at [facility]. BRCA testing negative Follow-up September is [...] We will review her prior MRI from [facility] in May 2021 in comparison [...] other significant toxicities. MRI was reviewed and [facility] tumor board with Dr. Reza [...] with sentinel lymph node biopsy 02/17/2022 in [place]. Adjuvant radiation completed 05/04-06/16/2022. Total of 30 [...] giving hydrocortisone for symptom management. Reassess by PRIMARY CLASS TEACHER for tolerance of therapy in 1 week. Good pathologicresponse with DCIS only on pathology Coordination of Care & Counseling Time: Greater than 50% of time spent with patient was for coordination of care (as documented) and cpfi-hg-otwl counseling of patient and/or family. Dictated By: Kallie Chang MD DD/ 1026 Signed By: <Electronically signed by MD Kallie Chang> 06/19/[address] [facility] Work Phone: 1(454) 589-175509-30-2022 Progress note Author Stacie Thomas [facility] April 17, 2022 9:21am Note Date/Time April 16, 2022 9:02am [facility] [place] [address] Rad Onc Follow Up Note - OP Signed with Addenda Patient: Tenisha Hancock MR#: [id number] : 1975 Acct:[id number] Age/Sex: 47 / F Type: REG RCR [...] 0 out of 5 lymph nodes involved. [id number]. In review of her operative note as [...] ductal carcinoma, 9 mm, provisional grade 3, ER/GA negative and HER2 negative. Per the available notes her BRCA testing was done through [facility] and was negative. Also appears the right breast mass was palpable in the lower mid quadrant of the breast. [facility]. Due to insurance reasons she received her systemic therapy here at [facility]. PET/CT was denied by insurance. CT scan of the chest abdomen pelvis on July 16, 2021 was negative for metastatic disease. Her clinical stage at presentation was cT2N0. June 11, 2021 patient did undergo an MRI in [place]. I do not have that report available [...] 0 out of 5 lymph nodes negative. [id number]. Pathology was negative for LVSI. Of note [...] <Electronically signed by Stacie Thomas MD> 04/16/22 [address] [facility] Work Phone: [phone]) [phone] NotePROCEDURE: XR GI UPPER AIR KUB DUAL [...] Electronically authenticated by: BARBER VASQUEZ Date: 2022 14:36[facility]09-13-2022 NotePROCEDURE: XR GI UPPER AIR KUB [...] Electronically authenticated by: BARBER VASQUEZ Date: 2022 14:36[facility]09-01-2022 Consult note Author Stacie Thomas [facility] March 19, 2022 10:56am Note Date/Time March 18, 2022 3: [address] [place] [address] [place] [address] Rad Onc Consult Note - OP Signed Patient: Tenisha Hancock MR#: [id number] : 1975 Acct:[id number] Age/Sex: 46 / F Type: REG RCR [...] 0 out of 5 lymph nodes involved. [id number]. In review of her operative note as [...] ductal carcinoma, 9 mm, provisional grade 3, ER/GA negative and HER2 negative. Per the available notes her BRCA testing was done through [facility] and was negative. Also appears the right breast mass was palpable in the lower mid quadrant of the breast. [facility]. Due to insurance reasons she received her systemic therapy here at [facility]. PET/CT was denied by insurance. CT scan of the chest abdomen pelvis on July 16, 2021 was negative for metastatic disease. Her clinical stage at presentation was cT2N0. June 11, 2021 patient did undergo an MRI in [place]. I do not have that report available [...] 0 out of 5 lymph nodes negative. [id number]. Pathology was negative for LVSI. Of note [...] work. Has no other breast related complaints. [facility] - Medical History Medical History: [...] Allergies Allergy (Verified 03/12/22 08:56) Home Medications uwaiihe-ylewuatnqmcwu-knxbpwxv 250 mg-250 mg-65 mg tablet (Excedrin Migraine) [...] Stacie Thomas MD> 03/19/22 10[address] [facility] Work Phone: [phone]) [phone] Consult note Author Stacie Thomas [facility] March 19, 2022 10:56am Note Date/Time March 18, 2022 3: 31pm [facility] [place] [address] Rad Onc Consult Note - OP Signed Patient: Tenisha Hancock MR#: [id number] : 1975 Acct:[id number] Age/Sex: 46 / F Type: REG RCR Copies to: MD Eliel Wislon MD~ Assessment & Plan (1) Breast cancer [...] 0 out of 5 lymph nodes involved. vPlcU6Vp. In review of her operative note as [...] ductal carcinoma, 9 mm, provisional grade 3, ER/GA negative and HER2 negative. Per the available notes her BRCA testing was done through [facility] and was negative. Also appears the right breast mass was palpable in the lower mid quadrant of the breast. [facility]. Due to insurance reasons she received her systemic therapy here at [facility]. PET/CT was denied by insurance. CT scan of the chest abdomen pelvis on July 16, 2021 was negative for metastatic disease. Her clinical stage at presentation was cT2N0. June 11, 2021 patient did undergo an MRI in [place]. I do not have that report available [...] 0 out of 5 lymph nodes negative. fzTojY5Ks. Pathology was negative for LVSI. Of note [...] work. Has no other breast related complaints. [facility] - Medical History Medical History: [...] Allergies Allergy (Verified 03/12/22 08:56) Home Medications sdjxkwv-ggufmpkwxziiv-tuzhfmkt 250 mg-250 mg-65 mg tablet (Excedrin Migraine) [...] Stacie Thomas MD> 03/19/22 10[address] [facility] Work Phone: 1([phone]) 377-901608-25-2022 Progress note Author Kallie Chang [facility] March 12, 2022 4:36pm Note Date/Time March 12, 2022 9: 49am [facility] at [address] [address] Hem/Onc Follow Up Note - OP Signed Patient: Tenisha Hancock MR#: [id number] : 1975 Acct:[id number] Age/Sex: 46 / F Type: REG RCR [...] right mastopexy on 02/17/2022 [address] Drs. Saunders/Drew ([facility]). Her pathology returned with no [...] Simons and has an appointment scheduled at [facility] to discuss josep flap surgery as well. [...] overall good. BRCA testing was done through [facility] and is negative. She does have left [...] I willdefer to his impression and recommendations. [place]: This is a 46 year old female, recently diagnosed with triple negative right breast cancer; currently undergoing neoadjuvant pembrolizumab, carboplatin AUC 4 and weekly paclitaxel x6 cycles, which commenced: 07/22/2021. This is a 46-year-old female who works at [employer] with triple negative breast cancer, referred for neoadjuvant chemotherapy. Mammogramon on April 22, 2021 showed 3 new focal masses with the largest measuring 2 cm in size in the right breast. 2 additional lesions measuring 1 cm and a second 0.9 cm were also seen. The patient was referred for biopsy. Needle biopsy showed triple negative breast cancer, ER negative, GA negative, and H ER 2 -. The patient was referred to Dr. Ismael Red for Ypmuij-y-Kcqx which she has had placed. She [facility]. Because of insurance reasons, she will be getting her treatment here at [facility]. She has had echocardiography as well. According the patient an MRI was obtained prior to neoadjuvant therapy while she was at [facility] we are requesting this prior [...] showed triple negative breast cancer, ER negative, GA negative, and HER 2 -. The patient was referred to Dr. Ismael Red for Qkrzbm-m-Mzpm which she has had placed. She has [facility]. Because of insurance reasons, she will be getting her treatment here at [facility]. She has had echocardiography as well. PET/CT [...] 9 cycles --Original breast MRI obtained from [facility] from May 2021, follow-up breast [...] preoperatively in late December. 2. 02/17/2022 at [facility], Drs. Saunders/Drew: needle localized lumpectomy [...] Allergies Allergy (Verified 03/12/22 08:56) Home Medications ahupqlt-ztbqcichbhvvi-ujlzahyw 250 mg-250 mg-65 mg tablet (Excedrin Migraine) [...] see in consultation by Dr. Smith at [facility] in [place], [place]; however, due to insurance reasons the patient transferredcare to [facility]. In reviewing notes from her prior physician [...] do not have records from this from [facility] in [place]. I am requesting this to evaluate her [...] testing returned negative from prior physicians at [facility]. BRCA testing negative Follow-up September is [...] We will review her prior MRI from [facility] in May 2021 in comparison [...] other significant toxicities. MRI was reviewed and [facility] tumor board with Dr. 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 Referring for adjuvant radiation then we [...] for coordination of care (as documented) and dbio-yg-nqdm counseling of patient and/or family. Dictated By: Kallie Chang MD DD/ 0948 Signed By: <Electronically signed by MD Kallie Chang> 03/12/22 [address] [facility] Work Phone: 1(355) 907-290208-02-2022 Hospital Discharge instructions* Discharge Instructions* Nader Alicia [...] permanent changes in scar color to darker, desktop support technician or discolored. At times you may have [...] drainage Our office numbers are as follows: [place] office: documented in this encounterFAUQUIER HEALTH SYSTEMSezWho Phone: 1(778) 815-227907-14-2022 Miscellaneous Notes* Telephone Encounter - Nat Ricketts RN - 01/29/2022 5:25 PM EDT Noticed that patient's appointment for 01/[address] Lea was cancelled Called and lmom with my name and number for her to call back if this was cancelled accidentally somehow and we would be happy to put her back on the schedule [facility] Miscellaneous Notes* Telephone Encounter - [...] on voicemail to return her call at [phone]. Thank you. * Telephone Encounter - Nat [...] I see a teaching note 06/23/21 at [facility] but limited documentation since then as to [...] EDT Noted I will check when in [place] on Wednesday. * Telephone Encounter - Alvin Alexis - 01/16/2022 1:23 PM EDT Pt calling regarding faxed info she had sent to [facility]. Pt asking if fax was received by office or if she needs to do anything else. Pt requesting call back to discuss. * Telephone Encounter - Lucinda Alvarez Ma - 01/16/2022 9:13 AM EDT I called pt to discuss where all outside workup has been, she has had studies at both [facility] and [facility]. I was able to have patient get a release and will also fax to [facility] what she hasthus far. Our office will [...] slides and reports SHANNAN documented in this encounterCincinnati [facility]22 NoteHNO ID: [id number] Author: Yasemin Bernal Service: ? Author Type: ? Type: Progress Notes Filed: 01/15/2022 4:35 PM Note Text: DATE OF PHOTOS: 01/15/2022 Body Part: Breasts and Abdomen Yasemin Bernal January 15, 2022 4:35 [facility]06-29-2022 NoteHNO ID: [id number] Author: Fahad Russell MD Service: ? Author Type: Physician Type: Progress Notes Filed: 01/27/2022 4:45 PM Note Text: BREAST RECONSTRUCTION EVALUATION CC: Tenisha Hancock is a 46 year old female that presents today for breast reconstruction evaluation. 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 Dr. Reza in [place] is her breast surgeon. 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 Back Exam: no scar; latissimus dorsi muscle function appears to be intact Abdominal Exam: soft, non-tender, obese and protuberant, BS+, non-distended, lap samreen Breast Exam: Asymmetry: Minimal Axillary Lymphadenopathy: no Scars: None Ptosis: R: Grade III L: Grade III Medially displaced nipple: None Assessment: Patient is a candidate for tissue clinical operations specialist Photos taken today Plan: An extensive discussion was undertaken with the patient detailing the risks, benefits and alternatives to tissue clinical operations specialist. Tenisha Hancock was given supplemental information [...] Past Histories independently gathered by the clinical operations support coordinator and the remaining scribed note accurately describes my personal service to the patient. patient's condition reviewed and examined ? plan and options of management, complexity, risk benefit limitation potential complication, success /failure of management, expected result and recovery discussed ? I spent 30 minutes in the visit, with more than 50% of the total iofx-xb-ttkj time of the visit in counseling / coordination of care. ? Fahad Russell [facility]06-29-2022 History of Present illness Narrative* Fahad Russell MD - 01/14/2022 4:48 PM EDT BREAST RECONSTRUCTION EVALUATION CC: Tenisha Hancock is a 46 year old female that presents today for breast reconstruction evaluation. 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 in [place] is her breast surgeon. 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 Back Exam: no scar; latissimus dorsi muscle function appears to be intact Abdominal Exam: soft, non-tender, obese and protuberant, BS+, non-distended, lap samreen Breast Exam: Asymmetry: Minimal Axillary Lymphadenopathy: no Scars: None Ptosis: R: Grade III L: Grade III Medially displaced nipple: None Assessment: Patient is a candidate for tissue clinical operations specialist Photos taken today Plan: An extensive discussion was undertaken with the patient detailing the risks, benefits and alternatives to tissue clinical operations specialist. Tenisha Hancock was given supplemental information [...] Past Histories independently gathered by the clinical operations support coordinator and the remaining scribed note accurately describes my personal service to the patient. patient's condition reviewed and examined plan and options of management, complexity, risk benefit limitation potential complication, success/failure of management, expected result and recovery discussed I spent 30 minutes in the visit, with more than 50% of the total ewey-vd-wnqe time of the visit in counseling / coordination of care. Fahad Russell MD documented in this encounterCincinnati [facility]06-08-2022 Progress note Author Heber [facility]legads[facility] centeram[facility] December 24, 2021 8:46pm Note Date/Time December 24, 2021 3:07p [facility] [place] [address] Hem/Onc Follow Up Note - OP Signed Patient: Tenisha Hancock MR#: [id number] : 1975 Acct:[id number] Age/Sex: 46 / F Type: REG RCR [...] Simons and has an appointment scheduled at [facility] to discuss josep flap surgery as well. [...] any oral mucositis and met with Dr. Rzea but he was unable to review her [...] I willdefer to his impression and recommendations. 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 This is a 46-year-old female who works at [employer] with triple negative breast cancer, referred for neoadjuvant chemotherapy. Mammogramon on April 22, 2021 showed 3 new focal masses with the largest measuring 2 cm in size in the right breast. 2 additional lesions measuring 1 cm and a second 0.9 cm were also seen. The patient was referred for biopsy. Needle biopsy showed triple negative breast cancer, ER negative, GA negative, and H ER 2 -. The patient was referred to Dr. Ismael Red for Swwovv-k-Jwtc which she has had placed. [facility]. Because of insurance reasons, she will be getting her treatment here at [facility]. She has had echocardiography as well. According the patient an MRI was obtained prior to neoadjuvant therapy while she was at [facility] we are requesting this prior [...] showed triple negative breast cancer, ER negative, GA negative, and HER 2 -. The patient was referred to Dr. Ismael Red for Afrvdg-x-Nqtg which she has had placed. She has [facility]. Because of insurance reasons, she will be getting her treatment here at [facility]. She has had echocardiography as well. PET/CT [...] 9 cycles --Original breast MRI obtained from [facility] from May 2021, follow-up breast [...] Allergies Allergy (Verified 12/03/21 13:51) Home Medications iptrtna-rrgatmcjnraha-shiozxfu 250 mg-250 mg-65 mg tablet (Excedrin Migraine) [...] see in consultation by Dr. Smith at [facility] in [place], [place]; however, due to insurance reasons the patient transferredcare to [facility]. In reviewing notes from her prior [...] do not have records from this from [facility] in [place]. I am requesting this to evaluate her [...] testing returned negative from prior physicians at [facility]. BRCA testing negative Follow-up September is [...] We will review her prior MRI from [facility] in May 2021 in comparison [...] other significant toxicities. MRI was reviewed and [facility] tumor board with Dr. Reza and [...] for coordination of care (as documented) and wdhb-tn-pzjz counseling of patient and/or family. Dictated By: Heber Arriaga APRN DD/ [id number] Signed By: <Electronically signed by PETE Arriaga> 12/24/212045 [facility] Work Phone: [phone]) 725-738905-18-2022 Progress note Author Kallie Chang [facility] December 03, 2021 2:19pm Note Date/Time December 03, 2021 2:02p m [facility] [place] [address] Hem/Onc Follow Up Note - OP Signed Patient: Tenisha Hancock MR#: [id number] : 1975 Acct:[id number] Age/Sex: 46 / F Type: REG RCR [...] overall good. BRCA testing was done through [facility] and is negative. She does have left [...] I willdefer to his impression and recommendations. 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 This is a 46-year-old female who works at [employer] with triple negative breast cancer, referred for neoadjuvant chemotherapy. Mammogramon on April 22, 2021 showed 3 new focal masses with the largest measuring 2 cm in size in the right breast. 2 additional lesions measuring 1 cm and a second 0.9 cm were also seen. The patient was referred for biopsy. Needle biopsy showed triple negative breast cancer, ER negative, GA negative, and H ER 2 -. The patient was referred to Dr. Ismael Red for Syocar-e-Vwma which she has had placed. She has seen my colleague Dr. Smith at the [facility] recommended neoadjuvant chemotherapy and immunotherapy. Because of insurance reasons, she will be getting her treatment here at [facility]. She has had echocardiography as well. According the patient an MRI was obtained prior to neoadjuvant therapy while she was at [facility] we are requesting this prior [...] showed triple negative breast cancer, ER negative, GA negative, and HER 2 -. The patient was referred to Dr. Ismael Red for Scogla-b-Klvn which she has had placed. She [facility]. Because of insurance reasons, she will be getting her treatment here at [facility]. She has had echocardiography as well. PET/CT [...] 9 cycles --Original breast MRI obtained from [facility] from May 2021, follow-up breast [...] Allergies Allergy (Verified 12/03/21 13:51) Home Medications bawfucq-tdvhllmtohgbk-vwvtcftn 250 mg-250 mg-65 mg tablet (Excedrin Migraine) [...] Left breast without masses, left upper chest Ruyxno-c-Zizr in place and nontender. No axillary fullness [...] % (Auto) 80.1, Lymph % (Auto) 16.3, Lagrange % (Auto) 2.6, Eos % (Auto) 0.5, Baso % (Auto) 0.5, Neut # (Auto) 6.9, Lymph # (Auto) 1.4, Lagrange # (Auto) 0.2, Eos # (Auto) 0.0, Baso # (Auto) 0.0, Nucleated RBC % (auto) 0.1, Toxic Granulation Slight, Dohle Bodies Slight, Platelet Estimate Normal, Plt Morphology Comment Normal, RBC Morphology N/A, Macrocytosis Slight, Tear Drop Cells Slight 11/25/21 14:45: PHA Creatinine Clear 105.09, Sodium 137, Potassium 4.2, Uttbyycj733, Carbon Dioxide 22.6, BUN 14, Creatinine 0.73, [...] % (Auto) 71.5, Lymph % (Auto) 19.6, Lagrange % (Auto) 7.6, Eos % (Auto) 0.4, Baso % (Auto) 0.9, Neut # (Auto) 6.2, Lymph # (Auto) 1.7, Lagrange # (Auto) 0.7, Eos # (Auto) 0.0, [...] see in consultation by Dr. Smith at [facility] in [place], [place]; however, due to insurance reasons the patient transferredcare to [facility]. In reviewing notes from her prior physician [...] do not have records from this from [facility] in [place]. I am requesting this to evaluate her [...] testing returned negative from prior physicians at [facility]. BRCA testing negative Follow-up September is [...] We will review her prior MRI from [facility] in May 2021 in comparison [...] other significant toxicities. MRI was reviewed and [facility] tumor board with Dr. Reza and [...] for coordination of care (as documented) and mtzf-co-blrx counseling of patient and/or family. Dictated By: Kallie Chang MD DD/ [id number] Signed By: <Electronically signed by MD Kallie Chang> 12/03/21 141 [facility] Work Phone: [phone] 498-803604-28-2022 Progress note Author Kallie Chang [facility] November 13, 2021 3:34pm Note Date/Time November 12, 2021 3:0 7pm [facility] [place] [address] Hem/Onc Follow Up Note - OP Signed Patient: Tenisha Hancock MR#: [id number] : 1975 Acct:[id number] Age/Sex: 46 / F Type: REG RCR [...] overall good. BRCA testing was done through [facility] and is negative. She does have left [...] I willdefer to his impression and recommendations. 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 This is a 46-year-old female who works at [employer] with triple negative breast cancer, referred for neoadjuvant chemotherapy. Mammogramon on April 22, 2021 showed 3 new focal masses with the largest measuring 2 cm in size in the right breast. 2 additional lesions measuring 1 cm and a second 0.9 cm were also seen. The patient was referred for biopsy. Needle biopsy showed triple negative breast cancer, ER negative, GA negative, and H ER 2 -. The patient was referred to Dr. Ismael Red for Mbapfq-q-Gpde which she has had placed. She [facility]. Because of insurance reasons, she will be getting her treatment here at [facility]. She has had echocardiography as well. According the patient an MRI was obtained prior to neoadjuvant therapy while she was at [facility] we are requesting this prior [...] showed triple negative breast cancer, ER negative, GA negative, and HER 2 -. The patient was referred to Dr. Ismael Red for Pylxrj-n-Kkgn which she has had placed. She has [facility]. Because of insurance reasons, she will be getting her treatment here at [facility]. She has had echocardiography as well. PET/CT [...] 9 cycles --Original breast MRI obtained from [facility] from May 2021, follow-up breast [...] Allergies Allergy (Verified 10/22/21 10:19) Home Medications zfkpslm-vgbzioynuryol-phbpxxly 250 mg-250 mg-65 mg tablet (Excedrin Migraine) [...] Left breast without masses, left upper chest Fsofmw-z-Sssj in place and nontender. No axillary fullness [...] Creatinine Clear 145.60, Sodium 136, Potassium 3.6, Jgbepjjk023, Carbon Dioxide 23.3, BUN 7 L, Creatinine [...] see in consultation by Dr. Smith at [facility] in [place], [place]; however, due to insurance reasons the patient transferredcare to [facility]. In reviewing notes from her prior [...] do not have records from this from [facility] in [place]. I am requesting this to evaluate her [...] testing returned negative from prior physicians at [facility]. BRCA testing negative Follow-up September is [...] We will review her prior MRI from [facility] in May 2021 in comparison [...] other significant toxicities. MRI was reviewed and [facility] tumor board with Dr. Reza and [...] for coordination of care (as documented) and rnzd-bx-zono counseling of patient and/or family. Dictated By: Kallie Chang MD DD/ [id number] Signed By: <Electronically signed by MD Kallie Chang> 11/13/21 1534 [facility] Work Phone: [phone]) 544-493704-06-2022 Progress note Author Kallie Chang [facility] October 22, 2021 4:22pm Note Date/Time October 22, 2021 10:2 8am [facility] [place] [address] Hem/Onc Follow Up Note - OP Signed Patient: Tenisha Hancock MR#: [id number] : 1975 Acct:[id number] Age/Sex: 46 / F Type: REG RCR [...] overall good. BRCA testing was done through [facility] and is negative. She does have left [...] I willdefer to his impression and recommendations. 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 This is a 46-year-old female who works at [employer] with triple negative breast cancer, referred for neoadjuvant chemotherapy. Mammogramon on April 22, 2021 showed 3 new focal masses with the largest measuring 2 cm in size in the right breast. 2 additional lesions measuring 1 cm and a second 0.9 cm were also seen. The patient was referred for biopsy. Needle biopsy showed triple negative breast cancer, ER negative, GA negative, and H ER 2 -. The patient was referred to Dr. Ismael Red for Judeab-q-Svpu which she has had placed. She [facility]. Because of insurance reasons, she will be getting her treatment here at [facility]. She has had echocardiography as well. According the patient an MRI was obtained prior to neoadjuvant therapy while she was at [facility] we are requesting this prior [...] showed triple negative breast cancer, ER negative, GA negative, and HER 2 -. The patient was referred to Dr. Ismael Red for Dvghis-g-Bjed which she has had placed. She has [facility]. Because of insurance reasons, she will be getting her treatment here at [facility]. She has had echocardiography as well. PET/CT [...] 9 cycles --Original breast MRI obtained from [facility] from May 2021, follow-up breast [...] Allergies Allergy (Verified 10/22/21 10:19) Home Medications ircpvxs-dgamhntaxtupn-urbpyjpq 250 mg-250 mg-65 mg tablet (Excedrin Migraine) [...] lymphadenopathy. Left breast withoutmasses, left upper chest Apekao-g-Iuyp in place and nontender. No axillary fullness [...] H, MCHC 33.7, RDW 16.7 H, Plt Vixve242 L, MPV 7.1, Nucleated RBC % (auto) [...] Other Results Results/Comments: Date of Service: 10/14/21 [facility] transthoracic: monitoring for chemotherapy Interpretation [...] see in consultation by Dr. Smith at [facility] in [place], [place]; however, due to insurance reasons the patient transferredcare to [facility]. In reviewing notes from her prior physician [...] do not have records from this from [facility] in [place]. I am requesting this to evaluate her [...] testing returned negative from prior physicians at [facility]. BRCA testing negative Follow-up September is [...] We will review her prior MRI from [facility] in May 2021 in comparison [...] other significant toxicities. MRI was reviewed and [facility] tumor board with Dr. Reza and [...] management Moderate complexity visit for discussion and [facility] tumor board, review of MRI [...] for coordination of care (as documented) and pgag-sh-wmsg counseling of patient and/or family. Dictated By: Kallie Chang MD DD/ [id number] Signed By: <Electronically signed by MD Kallie Chang> 10/22/21 1628 [facility] Work Phone: [phone]) 550-856303-24-2022 Progress note Author Kallie Chang [facility] October 09, 2021 2:48pm Note Date/Time October 08, 2021 11: 37am [facility] at [address] [address] Hem/Onc Follow Up Note - OP Signed Patient: Tenisha Hancock MR#: [id number] : 1975 Acct:[id number] Age/Sex: 46 / F Type: REG RCR [...] overall good. BRCA testing was done through [facility] and is negative. She does have left [...] I willdefer to his impression and recommendations. 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 This is a 46-year-old female who works at [employer] with triple negative breast cancer, referred for neoadjuvant chemotherapy. Mammogramon on April 22, 2021 showed 3 new focal masses with the largest measuring 2 cm in size in the right breast. 2 additional lesions measuring 1 cm and a second 0.9 cm were also seen. The patient was referred for biopsy. Needle biopsy showed triple negative breast cancer, ER negative, GA negative, and H ER 2 -. The patient was referred to Dr. Ismael Red for Fwxuth-g-Aoqd which she has had placed. She has seen my colleague Dr. Smith at the [facility] recommended neoadjuvant chemotherapy and immunotherapy. Because of insurance reasons, she will be getting her treatment here at [facility]. She has had echocardiography as well. According the patient an MRI was obtained prior to neoadjuvant therapy while she was at [facility] we are requesting this prior [...] showed triple negative breast cancer, ER negative, GA negative, and HER 2 -. The patient was referred to Dr. Ismael Red for Qpfork-f-Rrra which she has had placed. She has seen my colleague Dr. Smith at the [facility] recommended neoadjuvant chemotherapy and immunotherapy. Because of insurance reasons, she will be getting her treatment here at [facility]. She has had echocardiography as well. PET/CT [...] 9 cycles --Original breast MRI obtained from [facility] from May 2021, follow-up breast [...] PO Q6H PRN 07/03/21 [History Confirmed 10/08/21] lzzrrqs-ycpkpisuxcevb-hezjptbi 250 mg-250 mg-65 mg tablet (Excedrin Migraine) [...] Left breast without masses, left upper chest Xqjytl-q-Lpps in place and nontender. No axillary fullness [...] Creatinine Clear 110.24, Sodium 136, Potassium 3.7, Ytmnkhft160, Carbon Dioxide 22.8, BUN 7 L, Creatinine [...] % (Auto) 65.5, Lymph % (Auto) 30.1, Lagrange % (Auto) 3.7, Eos % (Auto) 0.4, Baso % (Auto) 0.3, Neut # (Auto) 4.0, Lymph # (Auto) 1.8, Lagrange # (Auto) 0.2, Eos # (Auto) 0.0, [...] see in consultation by Dr. Smith at [facility] in [place], [place]; however, due to insurance reasons the patient transferredcare to [facility]. In reviewing notes from her prior [...] do not have records from this from [facility] in [place]. I am requesting this to evaluate her baseline study since transfer of care from Dr. Pheonix to myself. She also had reported normal [...] testing returned negative from prior physicians at [facility]. BRCA testing negative Follow-up September is [...] We will review her prior MRI from [facility] in May 2021 in comparison [...] for coordination of care (as documented) and dtdt-de-xjcw counseling of patient and/or family. Dictated By: Kallie Chang MD DD/ [id number] Signed By: <Electronically signed by MD Kallie Chang> 10/09/21 7198 [facility] Work Phone: 1(950) 538-319403-09-2022 Progress note Author Kallie Chang [facility] September 24, 2021 11:25am Note Date/Time September 24, 2021 8:11 am [facility] [place] [id number] Hem/Onc Follow Up Note - OP Signed Patient: Tenisha Hancock MR#: [id number] : 1975 Acct:[id number] Age/Sex: 46 / F Type: REG RCR [...] overall good. BRCA testing was done through [facility] and is negative. She does have left [...] I willdefer to his impression and recommendations. 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 This is a 46-year-old female who works at [employer] with triple negative breast cancer, referred for neoadjuvant chemotherapy. Mammogramon on April 22, 2021 showed 3 new focal masses with the largest measuring 2 cm in size in the right breast. 2 additional lesions measuring 1 cm and a second 0.9 cm were also seen. The patient was referred for biopsy. Needle biopsy showed triple negative breast cancer, ER negative, GA negative, and H ER 2 -. The patient was referred to Dr. Ismael Red for Vqvqmx-e-Zpgb which she has had placed. [facility]. Because of insurance reasons, she will be getting her treatment here at [facility]. She has had echocardiography as well. According the patient an MRI was obtained prior to neoadjuvant therapy while she was at [facility] we are requesting this prior [...] showed triple negative breast cancer, ER negative, GA negative, and HER 2 -. The patient was referred to Dr. Ismael Red for Dofrui-d-Lfcn which she has had placed. She has [facility]. Because of insurance reasons, she will be getting her treatment here at [facility]. She has had echocardiography as well. PET/CT [...] PO Q6H PRN 07/03/21 [History Confirmed 09/24/21] hbsgqqj-lberuwkaxgxur-vndndkio 250 mg-250 mg-65 mg tablet (Excedrin Migraine) [...] Left breast without masses, left upper chest Mwgphl-h-Grft in place and nontender. No axillary fullness [...] Impressions We will request outside MRI from [facility] from baseline. - Other Results Results/Comments: Prior notes from [facility] CT scan showed echocardiogram 06/19/2021 with [...] see in consultation by Dr. Smith at [facility] in [place], [place]; however, due to insurance reasons the patient transferredcare to [facility]. In reviewing notes from her prior [...] do not have records from this from [facility] in [place]. I am requesting this to evaluate her [...] testing returned negative from prior physicians at [facility]. BRCA testing negative Today in follow-up [...] for coordination of care (as documented) and bkju-ib-kzqc counseling of patient and/or family. Dictated By: Kallie Chang MD DD/ 0810 Signed By: <Electronically signed by MD Kallie Chang> 09/24/21 1[address] [facility] Work Phone: 1([phone]) 202-738002-28-2022 Evaluation note* Encounter Date Diagnosis Assessment Notes [...] Aug, 2021 Cervical spondylosis (ICD-10 - M47.812) LOYAL3 Other 02-02-2022 Progress note Author Salbador Phoenix [facility] August 20, 2021 2:47pm Note Date/Time August 20, 2021 2 :45pm [facility] [place] [address] Hem/Onc Follow Up Note - OP Signed Patient: Tenisha Hancock MR#: [id number] : 1975 Acct:[id number] Age/Sex: 46 / F Type: REG RCR [...] overall good. BRCA testing was done through [facility] and is negative. She does have left [...] I willdefer to his impression and recommendations. [place]: This is a 46 year old female, [...] showed triple negative breast cancer, ER negative, GA negative, and HER 2-. The patient was referred to Dr. Ismael Red for Mttyeg-f-Uizk which she has had placed. She [facility]. Because of insurance reasons, she will be getting her treatment here at [facility]. She has had echocardiography as well. PET/CT [...] 10 point review of systems is negative. [facility] - Medical History Medical History: [...] (Last Reviewed 07/08/21 @ 15:06 by Salbador hPoenix MD) Brother Lung cancer Father Cancer Mother COPD (chronic obstructive pulmonary disease) - Social History Smoking Status: Former smoker Tobacco Type: cigarettes Substance Use Type: None Home Medications & Allergies Allergies No Known Allergies Allergy (Verified 08/14/21 09:20) Home Medications prochlorperazine maleate 10 mg tablet 10 mg PO Q6H PRN 07/03/21 [History Confirmed 08/20/21] tginufo-mhvqzgpyrjsca-zqngjsdv 250 mg-250 mg-65 mg tablet (Excedrin Migraine) [...] % (Auto) 58.0, Lymph % (Auto) 36.6, Lagrange % (Auto) 3.9, Eos % (Auto) 1.0, Baso % (Auto) 0.5, Neut # (Auto) 3.2, Lymph # (Auto) 2.0, Lagrange # (Auto) 0.2, Eos # (Auto) 0.1, [...] see in consultation by Dr. Smith at [facility] in [place], [place]; however, due to insurance reasons the patient transferredcare to [facility]. She commenced neoadjuvant Carboplatin/Paclitaxel/Pembrolizumab therapy on 07/22/2021; [...] for coordination of care (as documented) and ygqt-jl-kjvq counseling of patient and/or family. Dictated By: Salbador Phoenix MD DD/ 40 Signed By: <Electronically signed by MD Salbador Phoenix> 08/20/211446 [facility] Work Phone: 1(372) 420-801501-13-2022 Progress note Author Jazmin Monsivais [facility] July 31, 2021 3:54pm Note Date/Time July 31, 2021 3 :07pm [facility] [place] [id number] Hem/Onc Follow Up Note - OP Signed Patient: Tenisha Hancock MR#: [id number] : 1975 Acct:[id number] Age/Sex: 46 / F Type: REG RCR [...] showed triple negative breast cancer, ER negative, GA negative, and HER 2 -. The patient was referred to Dr. Ismael Red for Lzjxjj-e-Rllt which she has had placed. She has [facility]. Because of insurance reasons, she will be getting her treatment here at [facility]. She has had echocardiography as well. PET/CT [...] 10 point review of systems is negative. [facility] - Medical History Medical History: [...] PO Q6H PRN 07/03/21 [History Confirmed 07/31/21] pkscghj-gmidicbpawxyq-xbrgaxwo 250 mg-250 mg-65 mg tablet (Excedrin Migraine) [...] labs from [facility] scanned in chart; no significant cytopenias or abnormalities (WBC- 8.0; Hgb 12.0; normal platelets; Normal electrolytes; renal/hepatic fxn) Assessment and Plan (1) Breast cancer Patient is a 46-year-old female presenting with 3 discernible masses by mammography (04/22/2021) with needle biopsy confirming triple negative breast cancer. She was initially see in consultation by Dr. Smith at [facility] in [place], [place]; however, due to insurance reasons the patient transferredcare to [facility]. She commenced neoadjuvant Carboplatin/Paclitaxel/Pembrolizumab therapy on 07/22/2021; [...] scans ofthe chest/abdomen/pelvis on 07/16/2021 here at [facility]. There was no obvious evidence of distant [...] [facility] She has ongoing issues with low back [...] for coordination of care (as documented) and rxyd-fz-tddr counseling of patient and/or family. Dictated By: Jazmin Monsivais APRN DD/ 1454 Signed By: <Electronically signed by PETE Monsivais> 07/31/21 1554 [facility] Work Phone: [phone]) 888-449601-13-2022 Hospital Discharge instructionsAmbulatory Orders* Imaging on Disk Time Frame: 1 Day, Location: Determined By Patient * RISE Order Time Frame: 07/31/21, Location: Determined By Patient [facility] Work Phone: 1(188) 694-211112-28-2021 Progress note Author Salbador Phoenix [facility] July 15, 2021 1:32pm Note Date/Time July 15, 2021 1:28pm [facility] [place] [address] Hem/Onc Follow Up Note - OP Signed Patient: Tenisha Hancock MR#: [id number] : 1975 Acct:[id number] Age/Sex: 46 / F Type: REG RCR [...] works at [employer] who was referred here with triple negative [...] showed triple negative breast cancer, ER negative, GA negative, and H ER 2 -. The patient was referred to Dr. Ismael Red for Amerai-c-Sgds which she has had placed. She has seen my colleague Dr. Smith at the [facility] who recommended neoadjuvant chemotherapy and immunotherapy. Because of insurance reasons, she will be getting her treatment here at [facility]. She has had echocardiography as well. She does have a palpable breast mass. It is in the lower mid quadrant of the right breast. Subjective/ROS - Narrative: No acute complaints PMFSH - Medical History Medical History: Medical History (Last Reviewed 07/08/21 @ 15:06 by Slabador Phoenix MD) Arthritis Headache High blood cholesterol [...] PO Q6H PRN 07/03/21 [History Confirmed 07/15/21] ujxmzge-bpmibjcygsmvl-nzuoyefn 250 mg-250 mg-65 mg tablet (Excedrin Migraine) [...] % (Auto) 68.7, Lymph % (Auto) 25.5, Lagrange % (Auto) 3.9, Eos % (Auto) 1.0, Baso % (Auto) 0.9, Neut # (Auto) 6.9, Lymph # (Auto) 2.6, Lagrange # (Auto) 0.4, Eos# (Auto) 0.1, Baso [...] July 29, 2021. The patient has her Iptwef-m-Uwaj and and has had echocardiography. We will [...] for coordination of care (as documented) and gpdc-or-qhsp counseling of patient and/or family. Dictated By: Salbador Phoenix MD DD/ 1327 Signed By: <Electronically signed by MD Salbador Phoenix> 07/15/21 1332 [facility] Work Phone: [phone]) 878-665512-21-2021 Consult note Author Salbador Phoenix [facility] July 08, 2021 3:14pm Note Date/Time July 08, 2021 2:58pm [facility] [place] [address] Hem/Onc Consult Note - OP Signed Patient: Tenisha Hancock MR#: [id number] : 1975 Acct:[id number] Age/Sex: 46 / F Type: REG RCR [...] works at [employer] who is referred here with triple negative [...] showed triple negative breast cancer, ER negative, GA negative, and H ER 2 -. The patient was referred to Dr. Ismael Red for Lagjcv-t-Zzpc which she has had placed. She has seen my colleague Dr. Smith at the [facility] who recommended neoadjuvant chemotherapy and immunotherapy. Because of insurance reasons, she will be getting her treatment here at [facility]. She has had echocardiography as well. She does have a palpable breast mass. It is in the lower mid quadrant of the right breast. [facility] - Medical History Medical History: [...] PO Q6H PRN 07/03/21 [History Confirmed 07/08/21] ccsjhds-drpfggblnylwn-aymbnhud 250 mg-250 mg-65 mg tablet (Excedrin Migraine) [...] cancer. She has seen medical oncology at [facility] who has recommended neoadjuvant chemotherapy and immunotherapy. [...] at this time. The patient has her Actswh-e-Lpdk and and has had echocardiography. We will refer her for chemotherapy education and literature. She was requesting PET scan which is reasonable. I will also recommend genetic testing which can be done through [facility]. Our treatment plan will be pembrolizumab every [...] for coordination of care (as documented) and umtw-xz-xdfb counseling of patient and/or family. Dictated By: Salbador Phoenix MD DD/ 1457 Signed By: <Electronically signed by MD Salbador Phoenix> 07/08/21 2883 [facility] Work Phone: Consult note [facility] March 19, 2022 10:56am Note Date/Time March 18, 2022 3: 31pm [facility] [place] [address] Rad Onc Consult Note - OP Signed Patient: Tenisha Hancock MR#: [id number] : 1975 Acct:[id number] Age/Sex: 46 / F Type: REG RCR [...] 0 out of 5 lymph nodes involved. [id number]. In review of her operative note as [...] ductal carcinoma, 9 mm, provisional grade 3, ER/GA negative and HER2 negative. Per the available notes her BRCA testing was done through [facility] and was negative. Also appears the right breast mass was palpable in the lower mid quadrant of the breast. [facility]. Due to insurance reasons she received her systemic therapy here at [facility]. PET/CT was denied by insurance. CT scan of the chest abdomen pelvis on July 16, 2021 was negative for metastatic disease. Her clinical stage at presentation was cT2N0. June 11, 2021 patient did undergo an MRI in [place]. I do not have that report available [...] 0 out of 5 lymph nodes negative. [id number]. Pathology was negative for LVSI. Of note [...] work. Has no other breast related complaints. [facility] - Medical History Medical History: [...] Allergies Allergy (Verified 03/12/22 08:56) Home Medications qzqhgvt-vnobkjsscejos-nrukowhh 250 mg-250 mg-65 mg tablet (Excedrin Migraine) [...] 13:31 Dictated By: Stacie Thomas MD DD/ [id number] Signed By: <Electronically signed by Stacie Thomas MD> 03/19/22 1056 [facility] Work Phone: Evaluation + Plan note No data available for this section General Surgery [place] Evaluation note* Diagnosis History of breast cancer- Primary Personal history of malignant neoplasm of breast Breast asymmetry following reconstructive surgery Disproportion of reconstructed breast Malignant neoplasm of right female breast, unspecified estrogen receptor status, unspecified site of breast (HCC)- Primary [facility] Diagnosis Malignant neoplasm of right female breast, unspecified estrogen receptor status, unspecified site of breast (HCC) documented in this encounter [facility] Phone: evaluation note* Diagnosis Status post breast reconstruction- Primary Breast replaced by other means Status post breast lumpectomy Other postprocedural status Abnormal mammogram Abnormal mammogram, unspecified Malignant neoplasm of right female breast, unspecified estrogen receptor status, unspecified site of breast (HCC) documented in this encounter [facility] Phone: evalhbubof note* Diagnosis Malignant neoplasm of right female breast, unspecified estrogen receptor status, unspecified site of breast (HCC) documented in this encounter [facility] Phone: evaldwryew note* Diagnosis Onset Date Resolution Status Breast cancer chronic Encounter for antineoplastic immunotherapy chronic Encounter for chemotherapy management chronic 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 Chemotherapy-induced neutropenia resolved [facility] Work Phone: Evaluation note* Diagnosis Onset Date Resolution Status 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 acute Arthralgia of multiple sites, bilateral acute Encounter for coordination of complex care acute Breast cancer chronic Encounter for antineoplastic immunotherapy chronic Encounter for chemotherapy management chronic 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 Chemotherapy-induced neutropenia resolved [facility] Work Phone: Evaluation note* Diagnosis Onset Date Resolution Status 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 chronic Arthralgia of multiple sites, bilateral chronic Breast cancer chronic Encounter for antineoplastic immunotherapy chronic Encounter for chemotherapy management chronic Encounter for coordination of complex care chronic 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 Chemotherapy-induced neutropenia resolved [facility] Work Phone: Evaluation note* Diagnosis Onset Date Resolution Status 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 chronic Breast cancer chronic Encounter for antineoplastic immunotherapy chronic Encounter for chemotherapy management chronic Encounter for coordination of complex care chronic 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 Arthralgia of multiple sites, bilateral resolved Chemotherapy-induced neutropenia resolved [facility] Work Phone: Evaluation note* Diagnosis Onset Date Resolution Status Hypothyroidism (acquired) ac jania 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 chronic Breast cancer chronic Encounter for antineoplastic immunotherapy chronic Encounter for chemotherapy management chronic Encounter for coordination of complex care chronic 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 Arthralgia of multiple sites, bilateral resolved Chemotherapy-induced neutropenia resolved [facility] Work Phone: Evaluation noteNo assessment information available [facility] Work Phone: evaluation note* Diagnosis Left wrist pain- Primary Pain in joint, forearm Pain of left thumb [facility] N[facility] - Reported* Type Description Date Medical History GERD (gastroesophageal reflux di sease) Medical History Depression Medical History Breast Cancer Surgical History gallbladder Surgical History Foot Surgery Hospitalization History gallbladder LOYAL3 [facility] Work Phone: Hospital Discharge instructionsAmbulatory Orders* RISE Order Time Frame: 1 Day, Location: Determined By Patient [facility] Work Phone: Hospital Discharge instructions No data available for this section General Surgery [place] Progress note Author Kallie Chang [facility] March 12, 2022 4:36pm Note Date/Time March 12, 2022 9: 49am [facility] at [address] [address] Hem/Onc Follow Up Note - OP Signed Patient: Tenisha Hancock MR#: [id number] : 1975 Acct:[id number] Age/Sex: 46 / F Type: REG RCR [...] right mastopexy on 02/17/2022 by Drs. Saunders/Drew ([facility]). Her pathology returned with no [...] Simons and has an appointment scheduled at [facility] to discuss josep flap surgery as well. [...] overall good. BRCA testing was done through [facility] and is negative. She does have left [...] I willdefer to his impression and recommendations. [place]: This is a 46 year old female, recently diagnosed with triple negative right breast cancer; currently undergoing neoadjuvant pembrolizumab, carboplatin AUC 4 and weekly paclitaxel x6 cycles, which commenced: 07/22/2021. This is a 46-year-old female who works at [employer] with triple negative breast cancer, referred for neoadjuvant chemotherapy. Mammogramon on April 22, 2021 showed 3 new focal masses with the largest measuring 2 cm in size in the right breast. 2 additional lesions measuring 1 cm and a second 0.9 cm were also seen. The patient was referred for biopsy. Needle biopsy showed triple negative breast cancer, ER negative, GA negative, and H ER 2 -. The patient was referred to Dr. Ismael Red for Wngfit-u-Svnf which she has had placed. [facility]. Because of insurance reasons, she will be getting her treatment here at [facility]. She has had echocardiography as well. According the patient an MRI was obtained prior to neoadjuvant therapy while she was at [facility] we are requesting this prior [...] showed triple negative breast cancer, ER negative, GA negative, and HER 2 -. The patient was referred to Dr. Ismael Red for Zifdri-t-Crbp which she has had placed. She has seen my colleague Dr. Smith at the [facility] recommended neoadjuvant chemotherapy and immunotherapy. Because of insurance reasons, she will be getting her treatment here at [facility]. She has had echocardiography as well. PET/CT [...] 9 cycles --Original breast MRI obtained from [facility] from May 2021, follow-up breast [...] preoperatively in late December. 2. 02/17/2022 at [facility], Drs. Saunders/Drew: needle localized lumpectomy [...] Allergies Allergy (Verified 03/12/22 08:56) Home Medications reyfnkx-pbyxmnfnmiuuf-gogjedyt 250 mg-250 mg-65 mg tablet (Excedrin Migraine) [...] therapy Copies to: MD Meghana Wilson MD, [facility]~ Weight: 196 lb Performed By: ARNOLD [...] see in consultation by Dr. Smith at [facility] in [place], [place]; however, due to insurance reasons the patient transferredcare to [facility]. In reviewing notes from her prior physician [...] do not have records from this from [facility] in [place]. I am requesting this to evaluate her [...] testing returned negative from prior physicians at [facility]. BRCA testing negative Follow-up September is [...] We will review her prior MRI from [facility] in May 2021 in comparison [...] other significant toxicities. MRI was reviewed and [facility] tumor board with Dr. 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 Referring for adjuvant radiation then we [...] for coordination of care (as documented) and npul-ri-luke counseling of patient and/or family. Dictated By: Kallie Chang MD DD/ 0948 Signed By: <Electronically signed by MD Kallie Chang> 03/12/22 5887 [facility] Work Phone: Progress note Author Kallie Chang [facility] September 18, 2022 10:28pm Note Date/Time September 18, 2022 1:44 pm [facility] [place] [address] Hem/Onc Follow Up Note - OP Signed Patient: Tenisha Hancock MR#: [id number] : 1975 Acct:[id number] Age/Sex: 47 / F Type: REG RCR [...] hydrocortisone 20mg am/10mg pm. Will f/u with [employer] next week to review symptoms. We may [...] right mastopexy on 02/17/[address]22 [address]rs[address] Saunders/Drew ([facility]). Her pathology returned with no [...] Simons and has an appointment scheduled at [facility] to discuss josep flap surgery as well. [...] overall good. BRCA testing was done through [facility] and is negative. She does have left [...] I willdefer to his impression and recommendations. 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 This is a 46-year-old female who works at [employer] with triple negative breast cancer, referred for neoadjuvant chemotherapy. Mammogramon on April 22, 2021 showed 3 new focal masses with the largest measuring 2 cm in size in the right breast. 2 additional lesions measuring 1 cm and a second 0.9 cm were also seen. The patient was referred for biopsy. Needle biopsy showed triple negative breast cancer, ER negative, GA negative, and H ER 2 -. The patient was referred to Dr. Ismael Red for Noukpk-q-Dzfb which she has had placed. She has seen my colleague Dr. Smith at the [facility] recommended neoadjuvant chemotherapy and immunotherapy. Because of insurance reasons, she will be getting her treatment here at [facility]. She has had echocardiography as well. According the patient an MRI was obtained prior to neoadjuvant therapy while she was at [facility] we are requesting this prior [...] showed triple negative breast cancer, ER negative, GA negative, and HER 2 -. The patient was referred to Dr. Ismael Red for Jjzlyx-d-Quxk which she has had placed. She has seen my colleague Dr. Smith at the [facility] recommended neoadjuvant chemotherapy and immunotherapy. Because of insurance reasons, she will be getting her treatment here at [facility]. She has had echocardiography as well. PET/CT [...] 9 cycles --Original breast MRI obtained from [facility] from May 2021, follow-up breast [...] preoperatively in late December. 2. 02/17/2022 at [facility], Drs. Saunders/Shantal: needle localized lumpectomy [...] Allergies Allergy (Verified 09/18/22 13:38) Home Medications snduhqx-pvqvyvvvdwlza-hajyxmey 250 mg-250 mg-65 mg tablet (Excedrin Migraine) [...] % (Auto) 91.1, Lymph % (Auto) 6.2, Lagrange % (Auto) 2.3, Eos % (Auto) 0.1, Baso % (Auto) 0.3, Nucleat RBC Rel Count 0.1, Neut # (Auto) 10.4 H, Lymph # (Auto) 0.7 L, Lagrange # (Auto) 0.3, Eos # (Auto) 0.0, [...] see in consultation by Dr. Smith at [facility] in [place], [place]; however, due to insurance reasons the patient transferredcare to [facility]. In reviewing notes from her prior [...] do not have records from this from [facility] in [place]. I am requesting this to evaluate her [...] testing returned negative from prior physicians at [facility]. BRCA testing negative Follow-up September is [...] We will review her prior MRI from [facility] in May 2021 in comparison [...] other significant toxicities. MRI was reviewed and [facility] tumor board with Dr. 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 Completed adjuvant radiation then we resumed [...] with sentinel lymph node biopsy 02/17/2022 in [place]. Adjuvant radiation completed 05/04-06/16/2022. Total of 30 [...] for coordination of care (as documented) and [id number] counseling of patient and/or family. Dictated By: Kallie Chang MD DD/ 1343 Signed By: <Electronically signed by MD Kallie Chang> 09/18/22 2224 [facility] Work Phone: Progress note No data available for this section General Surgery Antonito Reason for visit NarrativeReferral Dr. Phoenix T12 [facility] ER [employer] Other Summary Purpose Family History No Family [...] WO CONTRAST Diana Murguia P, DO [address] [facility] [address] [place] [address] Referral ID Status Reason Start Date Expiration Date Visits Re quested Visits Authorized [id number] Closed 02/03/2022 01/28/2023 1 1 Chief Complaint [...] or prosecute any alcohol or drug abuse patient.[facility] Center[facility] the event this information is protected by the Federal Confidentiality of Alcohol and Drug Abuse Patient Records regulations: The Federal rules restrict any use of the information to criminally investigate or prosecute any alcohol or drug abuse patient.[facility] CenterIn the event this information is protected by the Federal Confidentiality of Alcohol and Drug Abuse Patient Records regulations: The Federal rules restrict any use of the information to criminally investigate or prosecute any alcohol or drug abuse patient.[facility] CenterIn the event this information is protected by the Federal Confidentiality of Alcohol and Drug Abuse Patient Records regulations: The Federal rules restrict any use of the information to criminally investigate or prosecute any alcohol or drug abuse patient.[facility] Reason for Visit (unrecogniz ed section and content) Reason Comments Appointment Reason Comments Consult Specialty Diagnoses / Procedures Referred By Ramirez t Referred To Contact Radiology Diagnoses Malignant neoplasm of right female breast, unspecified estrogen receptor status, unspecified site of breast (HCC) Procedures MRI BREAST BILATERAL W WO CONTRAST Diana Murguia P, DO [address] [facility] [address] [place] [address] Referral ID Status Reason Start Date Expiration Date Visits Re quested Visits Authorized [id number] Closed 02/03/2022 01/28/2023 1 1 Specialty Diagnoses / Procedures Referred By Ramirez t Referred To Contact Diagnoses Malignant neoplasm of right female breast, unspecified estrogen receptor status, unspecified site of breast (HCC) Malignant neoplasm of right female breast, unspecified estrogen receptor status, unspecified site of breast (HCC) [C50.911] Procedures GA MASTECTOMY, PARTIAL GA OFFICE/OUTPT VISIT,PROCEDURE ONLY GA BREAST REDUCTION NEEDLE DIRECTED @ 800 RIGHT BREAST LUMPECTOMY WITH SENTINEL NODE BIOPSY @ 830 WITH FROZEN SECTION AND POSSIBLE AXILLARY LYMPH NODE DISSECTION ONCOPLASTIC RECONSTRUCTION RIGHT BREAST WITH JOSE R INCISIONAL VAC AND PEC BLOCK Diana Murguia P, DO [address] [facility] [address] [place] [address] [facility] [employer] [address] [place] [address] Referral ID Status Reason Start Date Expiration Date Visits Re quested Visits Authorized [id number] 1 1 Specialty Diagnoses / Procedures Referred By Ramirez t Referred To Contact Diagnoses Malignant neoplasm of unspecified site of right female breast Procedures [facility] LYMPHATICS,LYMPH GLAND IMAGING [facility] [address] [place] [address] [address] [employer] [address] [place] [address] Referral ID Status Reason Start Date Expiration Date Visits Re quested Visits Authorized [id number] 1 1 Care Teams (unrecognized sec tion [...] Active Kallie Chang MD Attending Provider Active Photographer Lithographic Relationship Specialty Start Date End Date Jasbir Limon MD [address] [place] [address] (Fax) PCP - General 10/28/00 Photographer Lithographic Relationship Specialty Start Date End Date Jasbir Limon MD [address] [place] [address] PCP - General 10/28/00 Photographer Lithographic Relationship Specialty Start Date End Date Jasbir Limon MD [address] [place] [address] (Fax) PCP - General 10/28/00 Photographer Lithographic Relationship Specialty Start Date End Date Eliel Hurd [address] [id number] PCP - General Specialist 02/04/22 Photographer Lithographic Relationship Specialty Start Date End Date Eliel Hurd [address] [phone] PCP - General Specialist 02/04/22 Photographer Lithographic Relationship Specialty Start Date End Date Eliel Hurd [address] [id number] PCP - General Specialist 02/04/22 Team Status: [...] Active Adam Vickers DO Attending Provider Active Photographer Lithographic Relationship Specialty Start Date End Date Shaikh [...] section and content) DATE CREATED AUTHOR 02/03/2022 [facility] DATE CREATED AUTHOR AUTHOR'S ORGANIZ ATION 02/21/2022 [facility] DATE CREATED AUTHOR AUTHOR'S ORGANIZ ATION 03/24/2022 [facility] DATE CREATED AUTHOR AUTHOR'S ORGANIZ ATION 12/02/2022 [facility] DATE CREATED AUTHOR AUTHOR'S ORGANIZ ATION 03/09/2023 [facility] DATE CREATED AUTHOR AUTHOR'S ORGANIZ ATION 12/24/2023 [facility] DATE CREATED AUTHOR AUTHOR'S ORGANIZ ATION 01/16/2024 [facility] DATE CREATED AUTHOR AUTHOR'S ORGANIZ ATION 02/06/2024 [facility] DATE CREATED AUTHOR AUTHOR'S ORGANIZ ATION 03/11/2024 [facility] DATE CREATED AUTHOR AUTHOR'S ORGANIZ ATION 03/18/2024 [facility] Ordered Prescriptions (unrec ognized section and [...] 1047 (Given - Provid er: Valerie Davila, [employer]) diphenhydrAMINE (BENADRYL) injection 12.5 mg (COMPLETED) 12.5 [...] CRNA)1318 (Anesthesia Volume Adjustment - Provider: PETE Pereiar CRNA)1615 (Stopped - Provider: Heber Baron RN) [...] BE BASED ON THE PRIMARY CLINICAL RECORDS. [facility]. provides no warranty or guarantee of the accuracy or completeness of information in this document.
== END 2024-04-17 22:03 | disposition home or self-care (01) ==
LOC: LAB 22:02
PROVIDERS: Visit Provider Obstetrics & Gynecology
DX: Z01.419 Encounter for gynecological examination (general) (routine) without abnormal findings (principal)
CPT/HCPCS: 87624; 88175

== ENCOUNTER 2024-06-01 08:08 | Outpatient (RCR) | payer BC, SELFPAY | END 2024-06-08 09:14 | disposition home or self-care (01) | LOC: HEMC 08:08 | PROVIDERS: Visit Provider Internal Medicine Hematology & Oncology | DX: C50.911 Malignant neoplasm of unspecified site of right female breast (principal); M25.50 Pain in unspecified joint; M13.0 Polyarthritis, unspecified | CPT/HCPCS: 36415; 80053; 82306; 84439; 84443; 85025; G0463 ==

== ENCOUNTER 2024-06-01 12:29 | Outpatient (OUT) | payer BC, SELFPAY ==
[2024-06-01 14:07] LABS: Basophils Percent Auto 0.7 % (0.2-2.0); Eosinophils Absolute Auto 0.2 10^3/uL (0.0-0.7); Hematocrit 39.4 % (36.0-48.0); Hemoglobin 12.9 g/dL (12.0-16.0); Immature Granulocytes Abs Auto 0.04 10^3/uL (0.00-0.03); Immature Granulocytes Pct Auto 0.7 % (0.0-0.5); Lymphocytes Absolute Auto 2.1 10^3/uL (1.2-3.8); Lymphocytes Percent Auto 37.9 % (20.5-60.0); Mean Corpuscular HGB Conc 32.7 g/dL (29.9-35.2); Mean Corpuscular Hemoglobin 30.9 pg (26.7-34.0); Mean Corpuscular Volume 94.3 fL (81.0-99.0); Mean Platelet Volume 9.5 fL (9.5-13.5); Monocytes Absolute Auto 0.5 10^3/uL (0.3-0.8); Monocytes Percent Auto 8.3 % (1.7-12.0); Neutrophils Absolute Auto 2.8 10^3/uL (1.4-6.5); Neutrophils Percent Auto 49.4 % (43.0-75.0); Platelet Count 270 10^3/uL (150-450); Red Blood Count 4.18 10^6/uL (4.20-5.40); Red Cell Distribution Width 11.9 % (11.0-15.0); White Blood Count 5.7 10^3/uL (4.0-11.0)
[2024-06-01 15:17] LABS: Alanine Aminotransferase 37 U/L (14-59); Albumin Globulin Ratio 1.1; Albumin Level 3.6 g/dL (3.4-5.0); Alkaline Phosphatase 138 U/L (46-116); Anion Gap 15.7; Aspartate Amino Transferase 26 U/L (15-37); BUN Creatinine Ratio 20.3; Bilirubin Total 0.3 mg/dL (0.2-1.0); Calcium 8.7 mg/dL (8.5-10.1); Carbon Dioxide 25.7 mmol/L (21.0-32.0); Chloride 105 mmol/L (98-107); Estimated GFR (African America >60 (>=60 mL/min/1.73m^2); Estimated GFR (Non-African Ame >60 (>=60 mL/min/1.73m^2); Globulin 3.4 g/dL; Glucose 81 mg/dL (74-106); Potassium 4.4 mmol/L (3.5-5.1); Sodium 142 mmol/L (136-145); Thyroid Stimulating Hormone 1.918 uIU/mL (0.358-3.740)
[2024-06-01 16:10] LABS: Free T4 0.78 ng/dL (0.76-1.46)
== END 2024-06-01 12:30 | disposition home or self-care (01) ==
LOC: LAB 12:34
PROVIDERS: Visit Provider Internal Medicine Hematology & Oncology
DX: C50.911 Malignant neoplasm of unspecified site of right female breast (principal); M25.50 Pain in unspecified joint; M13.0 Polyarthritis, unspecified
CPT/HCPCS: 36415; 80053; 82306; 84439; 84443; 85025

== ENCOUNTER 2024-06-06 08:53 | Outpatient (OUT) | payer BC, SELFPAY ==
--- NOTE | 2024-06-06 08:59 | XR_ITS ---
[address] [address] Patient Name: ALLYSON HANCOCK MRN: [id number] date: 1975 Sex: F Assigned Patient Location: [facility] Current Patient Location: Accession/Order Number: [id number] Exam Date: 06/06/2024 09:05 Report Date: 06/07/2024 03:54 At the request of: SYDNIE LITTLE Procedure: XR DEXA axial skeleton EXAMINATION: XR DEXA axial skeleton HISTORY: Malignant Neoplasm Right Breast COMPARISON: DEXA bone densitometry 04/14/2022 TECHNIQUE: Dual-energy X-ray absorptiometry (DXA) was performed. FINDINGS: SPINE ANALYSIS: Average bone mineral density is 1.506 g/cm2. T-score (standard deviation relative to young adult mean): 2.7 . +11.1% change since prior study. HIP ANALYSIS: Lowest bone mineral density is within the right femoral neck, 1.042 g/cm2. T-score (standard deviation relative to young adult mean): 0.0 . -11.1% change since prior study. XR/XR DEXA axial skeleton IMPRESSION: World Health Organization Classification: Normal - Low Fracture Risk FRAX: Cannot be calculated. Pharmacologic treatment recommendations * No uniform recommendation applies to all patients. Management plans must be individualized. * Consider initiating pharmacologic treatment in postmenopausal women and men >= 50 years of age who have the following: Primary fracture prevention: * T-score <= - 2.5 at the femoral neck, total hip, lumbar spine, 33% radius (some uncertainty with existing data) by DXA. * Low bone mass (osteopenia: T-score between - 1.0 and - 2.5) at the femoral neck or total hip by DXA with a 10-year hip fracture risk >= 3% or a 10-year major osteoporosis-related fracture risk >= 20% (i.e., clinical vertebral, hip, forearm, or proximal humerus) based on the [place]-adapted FRAXregistered model. Secondary fracture prevention: * Fracture of the hip or vertebra regardless of BMD [4, 5]. * Fracture of proximal humerus, pelvis, or distal forearm in persons with low bone mass (osteopenia: T-score between - 1.0 and - 2.5). The decision to treat should be individualized in persons with a fracture of the proximal humerus, pelvis, or distal forearm who do not have osteopenia or low BMD [12, 13]. Hilton MS, Jose R SL, Helen KL, Melody EM, Talita KG, AJ, Aminata ES. The clinician's guide to prevention and treatment of osteoporosis. Osteoporos Int. 2021;33(10):3888-5219. doi: 10.1007/z02930-933-72521-z. Epub 2021Nov 13. Erratum in: Osteoporos Int. 2021Feb 12;: PMID: [id number]; PMCID: [id number]. Electronically authenticated by: BARBER VASQUEZ Date: 06/07/2024 03:54
== END 2024-06-06 08:54 | disposition home or self-care (01) ==
LOC: RAD 08:53
PROVIDERS: Visit Provider Internal Medicine Hematology & Oncology
DX: C50.911 Malignant neoplasm of unspecified site of right female breast (principal)
CPT/HCPCS: 77080

== ENCOUNTER 2024-09-22 14:08 | Outpatient (OUT) | payer BC, SELFPAY ==
--- OUTSIDE RECORDS SUMMARY | 2024-09-22 14:15 | XMS_ITS | CCD ---
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 Name Role Phone Jasbir Limon Primary Care Provider Franco Stokes Unavailable Jasbir Limon MD Primary Care Provider Eliel Hurd Primary Care Provider [phone] CASHEN, DIANA P Admitting Unavailable CASHEN, DIANA P Attending Unavailable ELIEL HURD Primary Care Unavailable SHANTAL, DIANA P Referring Unavailable ELIEL HURD Primary Care Unavailable MD Eliel Hurd Primary Care Provider MD Eliel Hurd Referring Provider MD Kallie Chang Attending Provider [phone] NON STAFF Attending Provider Unavailable MD Eliel Hurd Primary Care Provider MD Eliel Hurd Referring Provider MD Kallie Chang Attending Provider [phone] CASHCHIOMA, DIANA P Referring Unavailable ELIEL HURD Primary Care Unavailable ELIEL HURD Primary Care Unavailable CASHEN, DIANA P Referring Unavailable MD Eliel Hurd Primary Care Provider MD Larissa Saunders Attending Provider MD Eliel Hurd Referring Provider [phone] MD Kallie Chang Attending Provider MD Eliel Hurd Primary Care Provider MD Larissa Saunders Attending Provider [phone] MD Eliel Hurd Referring Provider [phone] MD Kallie Chang Attending Provider MD Eliel Hurd Primary Care Provider DO Adam Vickers Attending Provider [phone] MD Eliel Hurd Referring Provider MD Kallie Chang Attending Provider MD Eliel Hurd Referring Provider MD Kallie Chang Attending Provider MD Eliel Hurd Referring Provider [phone] MD Kallie Chang Attending Provider [phone] MD Eliel Hurd Primary Care Provider [phone] MD Eliel Hurd Referring Provider MD Kallie Chang Attending Provider [phone] MD Eliel Hurd Primary Care Provider [phone] MD Eliel Hurd Referring Provider [phone] MD Kallie Chang Attending Provider EARNEST HDZ [...] ., DR ELIEL Rouse Primary Care Unavailable SERGEY ., DR FREITAS Consulting Unavailable SERGEY ., DR FREITAS Admitting Unavailable HURD ., DR ELIEL Rouse Primary Care Unavailable SERGEY ., DR FREITAS Attending Unavailable [place], DR KRISTA Delgado Consulting Unavailable HURD ., DR ELIEL Rouse Primary Care Unavailable SERGEY ., DR FREITAS Admitting Unavailable SERGEY ., DR FREITAS Attending Unavailable SERGEY ., DR FREITAS Consulting Unavailable BRIEN KOEHLER Admitting Unavailable PATRIA, H Primary Care Unavailable BRIEN KOEHLER Attending Unavailable MISC, DR POTTER Consulting Unavailable HURD ., DR ELIEL Rouse Primary Care Unavailable MONIQUE ., DR KAITLIN Norton Admitting Unavailable FRANK ., DR KAITLIN Norton Attending Unavailable GIEDRAGRETCHEN, ANDRIUS Admitting Unavailable JUAN RICE Referring Unavailable SHAIKH ESPAÑA Primary Care Unavailable GIEDRAITIS, ANDRIUS Attending Unavailable Elham POZO, Andri Vytautas Attending Unavailable Elham POZO, Booker Briones Attending Unavailable MD Eliel Hurd Primary Care Provider MD Eliazar Gibson Attending Provider [phone] Patria POZO, Primary Care Provider SHAIKH ESPAÑA Primary Care Physician SYDNIE COLORADO Primary Care Unavailable Ismael BERMAN Attending Unavailable Ismael BEMRAN Attending Unavailable SYDNIE COLORADO Primary Care Unavailable Chidi Rincon Attending Provider [phone] MD To Españaikh Primary Care Provider AWA MARADIAGA Referring Unavailable ELIEL HURD Primary Care Unavailable AWA MARADIAGA Attending Unavailable To España MDikh Primary Care Provider Chinmay Muñoz MD Primary Care Provider Demetra Sparrow NP Unavailable CASTILLO GONSALEZ Attending Unavailable CASTILLO GONSALEZ Attending Unavailable SHAIKH ESPAÑA Attending Unavailable SHAIKH ESPAÑA Attending Unavailable HI NGUYỄN Attending Unavailable SHAIKH ESPAÑA Attending Unavailable HI NGUYỄN Attending Unavailable HI NGUYỄN Attending Unavailable HI NGUYỄN Referring Unavailable HI NGUYỄN Referring Unavailable CHIDI RINCON Attending Unavailable JACQUELINE CHAVEZ Attending Unavailable JACQUELINE CHAVEZ Referring Unavailable HI NGUYỄN Attending Unavailable DEMETRA SPARROW Attending UnavailShaikh Ross Primary Care Unavailable Chidi Rincon Attending Unavailable Chidi Rincon Admitting Unavailable Allergies Allergy Classification Reported Allergen(s) Allergy Type Date of Onset Reaction(s) Facility (1 source) No Known Medication Allergies; Translations: [No Known Medication Allergies] Propensity to adverse reactions (disorder) [facility] Repository Medications Current Medications Medication Drug [...] every six hours as needed for headache jzgmqvw-ojltxqavzgigm-klhcowxi (EXCEDRIN MIGRAINE) 250-250-65 MG per tablet Take [...] 02/22/2022 Active baclofen 10 mg oral tablet (18 sources) gamma-Aminobuty carlos Acid-ergic Agonist Start: 02-17-2022 End: 02-27-2022 baclofen (LIORESAL) 10 MG tablet Take 1 tablet by mouth in the morning and 1 tablet at noon and 1 tablet before bedtime. Do all this for 10 days. 30 tablet 0 02/17/2022 02/27/2022 Active 24 hr buPROPion hydrochloride 150 mg extended release oral tablet (19 sources) Aminoketone Start: 12-14-2023 End: 12-23-2024 take 1 tablet by mouth once daily buPROPion XL (Wellbutrin XL) 150 MG 24 hr tablet Indications: Moderate episode of recurrent major depressive disorder (CMS/HCC) Take 1 tablet (150 mg) by mouth Daily Do not crush, chew, or split. 90 tablet 1 06/26/2024 12/23/2024 Active Start: 11-03-2023 take 1 tablet by adair th once daily buPROPion 150 mg ER Tab 150 mg = 1 tab(s), Oral, Daily, Refills(s) 0 Start Date: 11/03/23 Status: Ordered calcium chloride 0.0014 meq/ ml / potassium chloride 0.004 meq/ml / sodium chloride 0.103 meq/ml / sodium lactate 0.028 meq/ml injectable solution (1 source) Start: 02-18-2022 lactated ringe rs infusion Start: 02-18-2022 lactated ringe rs infusion cholecalciferol 0.125 mg oral tablet (15 sources) Vitamin D Start: 01-19-2024 End: 06-26-2024 take 1 tablet by mouth once daily cholecalciferol (Natural Vitamin D-3) 5,000 Units tablet Indications: Other hyperlipidemia (CMS/HCC) Take 1 tablet (5,000 Units) by mouth Daily 30 tablet 2 06/26/2024 Active citalopram 20 mg oral tablet (20 sources) Serotonin Reuptake Inhibitor Start: 02-27-2021 End: 12-23-2024 take 1 tablet by mouth once daily citalopram (CeleXA) 20 MG tablet Indications: Moderate episode of recurrent major depressive disorder (CMS/HCC) Take 1 tablet (20 mg) by mouth Daily 90 tablet 1 06/26/2024 12/23/2024 Active Comment on above: Take 20 mg by mouth once daily. 2 ml fentaNYL 0.05 mg/ml injection (1 source) Opioid Agonist Start: 02-17-2022 fentaNYL (SUBLIMAZE) injection 25 mcg fluticasone propionate 0.05 mg/actuat metered dose nasal spray (4 sources) Corticosteroid Start: 07-19-2024 fluticasone (Flonase) 50 MCG/ACT nasal spray Indications: Seasonal allergic rhinitis, unspecified trigger USE 2 SPRAYS IN EACH NOSTRIL DAILY*SHAKE GENTLY* 48 mL 1 07/19/2024 Active Start: 06-26-2024 End: 06-26-2025 take 2 spray(s) nasal route once daily fluticasone (Flonase) 50 MCG/ACT nasal spray Indications: Seasonal allergic rhinitis, unspecified trigger Administer 2 sprays into each nostril Daily Shake gently. Before first use, prime pump. After use, clean tip and replace cap. 16 g 2 06/26/2024 07/19/2024 Discontinued gabapentin 300 mg oral capsule (1 source) Anti-epileptic Agent Start: 02-17-2022 End: 03-03-2022 gabapentin (NEURONTIN) 300 MG capsule Take 1 capsule by mouth in the morning and 1 capsule at noon and 1 capsule before bedtime. Do all this for 14 days. Intended supply: 90 days. 42 capsule 0 02/17/2022 03/03/2022 Active hydrocortisone 20 mg oral tablet (20 sources) Corticosteroid Start: 09-18-2022 Hydrocortisone Active 20 MG PO Daily September 18, 2022 1:00am 20mg and 10mg in the afternoon Start: 06-18-2022 End: 08-06-2022 Hydrocortisone Discontinued 0 .ROUTE .COMPLEX 90 June 18, 2022 1:00am August 06, 2022 2:31pm take 2 tabs in am and 1 tab in pm hydrocortisone ( Cortef) 10 MG tablet Take by mouth Daily. Active 0.5 ml HYDROmorphone hydrochloride 1 mg/ml prefilled syringe (1 source) Opioid Agonist Start: 02-17-2022 HYDROmorphone HCl PF (DILAUDID) injection 0.25 mg levothyroxine sodium 0.05 mg oral tablet (20 sources) l-Thyroxine Start: 04-19-2024 take 1 tablet by mouth once daily in the morning levothyroxine (Synthroid, Levoxyl) 50 MCG tablet Indications: Hypothyroidism, unspecified (CMS/HCC) TAKE 1 TABLET BY MOUTH EVERY DAY IN THE MORNING ON EMPTY STOMACH 90 tablet 1 04/19/2024 Active Start: 06-11-2023 take 1 tablet by adair th once daily Synthroid 50 mcg Tab 50 [...] 2021 1:00am August 14, 2021 10:21am pantoprazole 40 mg delayed release oral tablet (20 sources) Proton Pump Inhibitor Start: 06-26-2024 End: 06-26-2024 take 1 tablet by mouth before mealtime pantoprazole (ProtoNix) 40 MG EC tablet Indications: Gastroesophageal reflux disease, unspecified whether esophagitis present Take 1 tablet (40 mg) by mouth in the morning. Take before meals. Do not crush, chew, or split.. 90 tablet 06/26/2024 Active Start: 06-11-2023 take 1 tablet by adair th once daily Protonix 20 mg Tab-DR 20 mg = 1 tab(s), Oral, Daily, Refills(s) 0 Start Date: 06/11/23 Status: Ordered Start: 02-17-2022 End: 02-17-2022 pantoprazole (PROTONIX) inje ction 40 mg take 1 tablet by adair th before mealtime pantoprazole (ProtoNix) 40 MG EC tablet Take 40 mg by mouth in the morning. Take before meals. Do not crush, chew, or split. . Active rosuvastatin calcium 20 mg oral tablet (19 sources) HMG-CoA Reductase Inhibitor Start: 11-01-2023 End: 12-23-2024 take 1 tablet by mouth once daily rosuvastatin (Crestor) 20 MG tablet Indications: Other hyperlipidemia (CMS/HCC) Take 1 tablet (20 mg) by mouth Daily 90 tablet 1 06/26/2024 12/23/2024 Active Start: 06-11-2023 take 1 tablet by adair once daily rosuvastatin 5 mg Tab 5 [...] End: 02-04-2022 gadoteridol (PROHANCE) injection 18 mL ibuprofen 800 mg oral tablet (17 sources) Nonsteroidal Anti-inflammatory Drug Start: 05-12-2022 End: 06-26-2024 ibuprofen 800 MG tablet TAKE 1 TABLET BY MOUTH EVERY 6-8 HOURS NEEDED FOR PAIN 05/12/2022 06/26/2024 Discontinued Ibuprofen Active LORazepam 1 mg oral tablet (20 sources) [...] Take 20 mg by mouth twice daily. phentermine hydrochloride 37.5 mg oral tablet (13 sources) Sympathomimetic Amine Anorectic Start: End: take 1 tablet by mouth before mealtime phentermine (Adipex-P) 37.5 MG tablet Indications: Overweight with body mass index (BMI) of 28 to 28.9 in adult Take 1 tablet (37.5 mg) by mouth in the morning. Take before meals. 30 tablet 01/13/2024 06/26/2024 Discontinued (Med list cleanup) predniSONE 20 mg oral tablet (20 sources) Start: End: take 10 mg by mouth once daily [...] pain; Translations: [Epigastric pain] Onset: 2022 Episodic Acquired foot deformities (2 sources) Acquired deformity of toe of left foot; Translations: [Acquired deformities of toe(s), unspecified, left foot] 06-01-2024 Episodic Acquired foot deformities (2 sources) Acquired deformity of toe of right foot; Translations: [Acquired deformities of toe(s), unspecified, right foot] 06-01-2024 Episodic Anxiety disorders (19 sources) Mixed anxiety and depressive disorder; Translations: [Anxiety disorder, unspecified] Onset: 12-14-2023 06-11-2023 Chronic Cancer of breast (20 sources) Malignant neoplasm of female breast; Translations: [Malignant neoplasm of unspecified site of right female breast] Onset: 06-05-2021 Chronic Diseases of white blood cells (20 sources) Neutropenia due to and following chemotherapy; Translations: [Agranulocytosis secondary to cancer chemotherapy] 11-13-2021 Chronic Disorders of lipid metabolism (20 sources) Hyperlipidemia; Translations: [Hyperlipidemia, unspecified] Onset: 01-23-2022 01-23-2022 Chronic Esophageal disorders (20 sources) Gastro-esophageal reflux disease without esophagitis; Translations: [Gastroesophageal reflux disease without esophagitis] Onset: 04-05-2022 Chronic Headache; including migraine (18 sources) Migraine; Translations: [Migraine, unspecified, not intractable, without status migrainosus] Onset: 04-20-2011 11-30-2022 Chronic Maintenance chemotherapy; radiotherapy (20 sources) Patient encounter status; Translations: [Encounter for antineoplastic chemotherapy] 09-24-2021 Chronic Mood disorders (18 sources) Moderate recurrent major depression; Translations: [Major depressive disorder, recurrent, moderate] Onset: 11-01-2023 11-01-2023 Chronic Nonmalignant breast conditions (1 source) Breasts asymmetrical; Translations: [Disproportion of reconstructed breast] Episodic Osteoarthritis (20 sources) Arthritis of left hip; Translations: [Unilateral [...] left finger(s)] 08-25-2023 Episodic Other endocrine disorders (20 sources) Adrenal cortical hypofunction; 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] Onset: 01-14-2023 06-19-2022 Chronic Other endocrine disorders (5 sources) Drug-induced adrenocortical insufficiency; Translations: [Glucocorticoid deficiency] 07-22-2022 Chronic Other endocrine disorders (17 sources) Drug-induced adrenocortical insufficiency; 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] Onset: 11-30-2022 11-30-2022 Chronic Other endocrine disorders (17 sources) Hypopituitarism; Translations: [Hypopituitarism] Onset: 12-14-2023 11-01-2023 Chronic Other endocrine disorders (3 sources) Unspecified adrenocortical insufficiency; Translations: [Unspecified adrenocortical insufficiency] Onset: 03-09-2024 Chronic Other nervous system disorders (1 source) Carpal tunnel syndrome; Translations: [Carpal tunnel syndrome, left upper limb] 11-25-2022 Chronic Other nervous system disorders (17 sources) Carpal tunnel syndrome of right wrist; Translations: [Carpal tunnel syndrome, right upper limb] Onset: 11-30-2022 11-30-2022 Chronic Other nervous system disorders (18 sources) Carpal tunnel syndrome of left wrist; Translations: [Carpal tunnel syndrome, left upper limb] Onset: 11-01-2023 11-25-2022 Chronic Other nervous system disorders (2 sources) Mortons neuroma of left foot; Translations: [Lesion of plantar nerve, left lower limb] 06-01-2024 Chronic Other non-traumatic joint disorders (5 sources) Pain in unspecified joint; Translations: [Pain in joint, multiple sites] 07-22-2022 Episodic Other non-traumatic joint disorders (3 sources) Pain of left wrist; Translations: [Pain in left wrist] 08-25-2023 Episodic Other nutritional; endocrine; and metabolic disorders (18 sources) Body mass index 30+ - obesity; Translations: [Obesity, unspecified] Onset: 11-30-2022 11-30-2022 Chronic Other nutritional; endocrine; and metabolic disorders (1 source) Obesity 11-03-2023 Chronic Other nutritional; endocrine; and metabolic disorders (18 sources) Obesity caused by energy imbalance; Translations: [Class 1 obesity due to excess calories without serious comorbidity with body mass index (BMI) of 30.0 to 30.9 in adult] Onset: 01-13-2024 01-13-2024 Chronic Other upper respiratory disease (3 sources) Seasonal allergic rhinitis; Translations: [Other seasonal allergic rhinitis] 06-26-2024 Chronic Residual codes; unclassified (3 sources) H/O: artificial organ/tissue; Translations: [Other specified postprocedural states] Onset: 02-17-2022 Episodic Spondylosis; intervertebral disc disorders; other back problems (20 sources) Cervical spondylosis; Translations: [Spondylosis without myelopathy or radiculopathy, cervical region] Onset: 09-15-2021 Resolved: 06-11-2023 Chronic Thyroid disorders (20 sources) Acquired hypothyroidism; Translations: [Hypothyroidism, unspecified] Onset: 11-01-2023 09-04-2022 Chronic Unclassified (2 sources) CONTACT W/AND (SUSP) EXPOS COVID-19; Translations: [CONTACT W/AND (SUSP) EXPOS COVID-19] Onset: 04-01-2022 Unclassified (1 source) Patient encounter status 11-03-2023 Unclassified (1 source) Triple-negative breast cancer Onset: 06-05-2021 06-11-2023 Viral infection (1 source) COVID-19; Translations: [COVID-19] Onset: 04-01-2022 Past or Other Problems Problem Classification Problem Date Documented Date Episodic/Chronic Administrative/social admission (20 sources) Patient encounter status; Translations: [Other specified counseling] Onset: 03-02-2023 06-19-2022 Episodic Cancer of breast (18 sources) History of malignant neoplasm of breast; Translations: [Personal history of malignant neoplasm of breast] Onset: 03-02-2023 Episodic Disorders of teeth and jaw (16 sources) Infection of tooth; Translations: [Periapical abscess without sinus] Onset: 01-13-2024 01-13-2024 Episodic Immunizations and screening for infectious disease (1 source) Encounter for screening for human papillomavirus (HPV); Translations: [ENC SCREENING HUMAN PAPILLOMAVIRUS] Onset: 04-08-2022 Episodic Other non-traumatic joint disorders (20 sources) Multiple joint pain; Translations: [Pain in unspecified joint] Onset: 11-01-2023 06-19-2022 Episodic Other non-traumatic joint disorders (16 sources) Pain in left knee; Translations: [Pain in joint, lower leg] Onset: 12-14-2023 12-14-2023 Episodic Other non-traumatic joint disorders (16 sources) Hip pain; Translations: [Pain in left hip] Onset: 12-14-2023 12-14-2023 Episodic Other nutritional; endocrine; and metabolic disorders (16 sources) Overweight in adulthood with body mass index of 25 or more but less than 30; Translations: [Overweight] Onset: 12-14-2023 01-13-2024 Episodic Other screening for suspected conditions (not mental disorders or infectious disease) (7 sources) Mammography abnormal; Translations: [Other abnormal and inconclusive findings on diagnostic imaging of breast] Onset: 04-07-2022 Episodic Residual codes; unclassified (4 sources) Personal history of antineoplastic chemotherapy; Translations: [PERSONAL HX ANTINEOPLASTIC CHEMO] Onset: 04-14-2022 Episodic Residual codes; unclassified (17 sources) History of breast reconstruction; Translations: [Other specified postprocedural states] Onset: 02-17-2022 03-02-2023 Episodic Residual codes; unclassified (16 sources) H/O: breast problem; Translations: [Personal history of other specified conditions] Onset: 11-04-2023 11-04-2023 Episodic Residual codes; unclassified (16 sources) Family history of cancer; Translations: [Family history of malignant neoplasm, unspecified] Onset: 11-04-2023 11-04-2023 Episodic Spondylosis; intervertebral disc disorders; other back problems (20 sources) Neck pain; Translations: [Cervical pain (neck)] Onset: 06-18-2021 09-24-2021 Episodic Unclassified (1 source) CONTACT W/AND (SUSP) EXPOS COVID-19; Translations: [CONTACT W/AND (SUSP) EXPOS COVID-19] Onset: 03-14-2022 Results Test Name Value Interpretation Reference Range Facility XR Wrist - left 2 [facility] Result: 05/02/2024: Multiple views of left wrist showed no acute bony process including but not limited to fracture and/or dislocation. Proximal and distal carpal rows appeared to be anatomic. Impression: No acute bony process, left wrist. Jacqueline Chavez SCREW [employer]AR [facility] XR Wrist - left 2 [facility] Study observation (narrative) [facility] IGP,APTIMA HPV,AGE GDLNon AGE GDLN ACOG TESTING Note . [facility] Comment on above: TESTS RESULT FLAG UN ITS REF RANGE LAB Clinician Provided Cytology Information Source.............Cervix;Endocervix No. of containers..01 ThinPrep Vial Age Algo ACOG Beata... 3065 01 FLAG LEGEND: L-Low Normal,H-High Normal,LL-Alert Low,HH-Alert High <-Panic Low,>-Panic High,A-Abnormal,AA-Critical Abnormal Performed at: 01 =[address] [address] Radha Guillen MD, HPV APTIMA Negative Negative [facility] Comment on above: This nucleic acid am plification test detects fourteen high- risk HPV types (16,18,31,33,35,39,45,51,52,56,58,59,66,68) without differentiation. Performed at: =[address] [id number] [employer] Storage Clerk: Radha Guillen MD, Phone: [phone] Performed at: [address] [id number] Space [employer] Storage Clerk: Radha Guillen MD, Phone: [phone] IGP, APTIMA HPV, RFX 16/18,45 Note . [facility] Comment on above: TESTS RESULT FLAG UN ITS REF RANGE LAB DIAGNOSIS: 02 NEGATIVE FOR INTRAEPITHELIAL LESION OR MALIGNANCY. Specimen adequacy: 02 Satisfactory for evaluation. Endocervical and/or squamous metaplastic cells (endocervical component) are present. Performed by: 02 Josephine Cazares, Desk Editor (ASCP) . 02 Note: Note 02 The Pap smear is a screening test designed to aid in the detection of premalignant and malignant conditions of the uterine cervix. It is not a diagnostic procedure and should not be used as the sole means of detecting cervical cancer. Both false-positive and false-negative reports do occur. Test Methodology: Note 02 This liquid based ThinPrep(R) pap test was screened with the use of an image guided system. HPV Genotype Reflex Note 02 Criteria not met, HPV Genotype not performed. FLAG LEGEND: L-Low Normal,H-High Normal,LL-Alert Low,HH-Alert High <-Panic Low,>-Panic High,A-Abnormal,AA-Critical Abnormal Performed at: [facility] [address] [address] Radha Guillen MD, BRUSH-SPATULA CERVIX ENDOCERVIX [facility] CORTISOLon 03-23-2024 Interpretation and review of laboratory results Abnormal [facility] CORTISOL 0.9 ug/dL Abnormal 6.2 - 19.4 ug/dL [facility] Comment on above: Please Note: The ref erence interval and flagging for this test is for an AM collection. If this is a PM collection please use: Cortisol PM: 2.3-11.9 Performed at: [facility] [address] [id number] Space And Storage Clerk: Red Sena PhD, Phone: [phone] [facility] [place] 36on 03-15-2024 36 Called patient to inform regarding lab results. Left voice message. FSH is elevated consistent with menopause. Prolactin normal. No further testing needed. Normal [facility] Telephoneon 03-15-2024 Telephone [id number] Tenisha Hancock 1975 F Date Provider Department Center 03/15/2024 ERIKA CABRERA [facility] ENDOCR [facility] No family history on file Reason for Visit and Comments: Labs [[id number]] Normal [facility] 37on 03-09-2024 37 Please take your thyroid [...] intramuscular injection (Solu-Cortef Act-O-Vial): Solu-Cortef Emergency Injection [email or web address] Normal [facility] E2 [Mass/Vol]on 03-09-2024 ESTRADIOL 67.8 pg/mL [facility] Comment on above: Result Comment: NON- [...] assay. Performed By: #### 2 842-3, 2243-4, 32760-9 #### [facility] ([id number]) [address] [place] [address] Follitropin Qnon 03-09-2024 FOLLICLE STIM HORMONE 58.1 mIU/mL Normal Pr [facility] Comment on above: Result Comment: NORMAL FEMALE Luteal 1.8-5.1 mIU/mL Follicular 3.8-8.8 mIU/mL Mid Cycle 4.5-22.5 mIU/mL Post Romy 16.7-113.6 mIU/mL Performed By: #### 2 842-3, 2243-4, 79816-2 #### [facility] ([id number]) [address] [place] [address] Office Visiton 03-09-2024 Follow-up visit [id number] Tenisha Hancock 1975 F Date Provider Department Center 03/09/2024 [id number] [facility] ENDOCR [facility] No family history on file Level of Service:38257 [place] OFFICE/OUTPATIENT NEW MODERATE MDM 45 MINUTES Reason for Visit and Comments: New Patient [632] Normal [facility] Prolactin [Mass/Vol]on 03-09 PROLACTIN 4.8 ng/mL Normal 3.3-26.7 [facility] Comment on above: Performed By: #### 2 842-3, 2243-4, 30563-8 #### [facility] ([id number]) [address] [place] [address] MR breast BI wo/w con CADon 01-11-2024 MR breast BI wo/w con CAD [facility] [place] [address] MRI Report Signed Patient: Tenisha Hancock MR#: [id number] : 1975 Acct:[id number] Age/Sex: 48 / F ADM Date: 01/10/24 Loc: MR Room: Type: [facility] Attending Dr: Chidi Rincon Copies to: Chidi [...] All imaged data was reviewed using the [employer] system. The postcontrast images were subtracted and [...] 6M Impression dictated by: Jamari Guzman Jr., D.OSavanah01/11/2024 10:59 AM Dictation Location: [id number]-[id number] Transcribed By: JOLIE 01/11/24 1059 Dictated By: Jamari Guzman Jr, 01/11/24 1047 Signed By: 01/11/24 1059 Normal [facility] Outside Colonoscopyon 2023 Outside Colonoscopy [id number]#1. 00TIFF Normal [facility] Lab Reportson 12-23-2023 Lab Reports [id number]#1. 00TIFF Normal [facility] Reminderson 12-23-2023 Reminders - From: Andie Hodge LPN To: Jose - Clinical; Sent: 12/23/2023 12:00:00 EDT Show up: 11/20/2033 07:00:00 EDT Subject: colonoscopy recall Due Date/Time: 12/21/2033 07:00:00 EDT Reminder/Recall Patient due for screening colonoscopy 12/21/2033. Normal [facility] Insurance Correspondenceon 0 12-08-2023 Insurance Correspondence [id number]# 1.00TIFF [facility] Consent for Procedure/Surger yon 11-04-2023 Consent for Procedure/Surgery [id number]#1 .00TIFF [facility] Facesheeton 11-04-2023 Facesheet [id number]# 1.00TIFF [facility] Ambulatory Visit Summaryon 0 11-03-2023 Ambulatory [...] for choosing us for your care. Normal [facility] Physician Referralon 024 Physician Referral [id number]#1 .00TIFF Normal [facility] Physician Referralon 024 Physician Referral [id number]#1. 00TIFF Normal [facility] Physician Referralon 023 Physician Referral [id number]#1 .00TIFF Normal [facility] Physician Referralon 023 Physician Referral [id number]#1 .00TIFF Normal [facility] C reactive protein [Mass/vol ume] in Serum or PlasmaOrdered By: Eliazar Gibson on 04-07-2023 CRP [Mass/Vol] < 0.5 mg/dL 0.0-0.5 [facility] Erythrocyte sedimentation ra te by Photometric methodOrdered By: Eliazar Gibson on 04-07-2023 ESR Photometric method (Bld) [Velocity] 22 mm/hr 0-19 [facility] Retail - Clinical Noteon Retail - Clinical Note [id number]#1. 00CD:127 Normal [facility] Serum or plasma thyroperoxid ase antibody assay (units/volume)Ordered By: Elizabeth Pérez on 11-16-2022 TPO Ab Qn 13 [IU]/mL 0-34 [facility] Comment on above: Performed at: [place] [id number] Director: Red Sena PhD, Phone: [phone] Thyrotropin [Units/volume] i n Serum or PlasmaOrdered By: Elizabeth Pérez on 11-16-2022 TSH Qn 1.03 m[IU]/L 0.45-5.33 [facility] Thyroxine (T4) free [Mass/vo lume] in Serum or PlasmaOrdered By: Elizabeth Pérez on 11-16-2022 Free T4 [Mass/Vol] 1.03 ng/dL 0.61-1.12 [facility] Triiodothyronine (T3) Free [ Mass/volume] in Serum or PlasmaOrdered By: Elizabeth Pérez on 11-16-2022 Free T3 [Mass/Vol] 4.39 pg/mL 2.50-3.90 [facility] Albumin [Mass/volume] in Bod y fluidOrdered By: Kallie Chang on 09-16-2022 Albumin (Body fld) [Mass/Vol] 3.7 g/dL 3.2-5.5 [facility] Alkaline phosphatase [Enzyma tic activity/volume] in Serum or PlasmaOrdered By: Kallie Chang on 09-16-2022 ALP [Catalytic activity/Vol] 85 U/L 32-92 [facility] Aspartate aminotransferase [ Enzymatic activity/volume] in Serum or PlasmaOrdered By: Kallie Chang on 09-16-2022 AST [Catalytic activity/Vol] 20 U/L 10-42 [facility] Basophils Auto (Bld) [#/Vol] Ordered By: Kallie Chang on 09-16-2022 Basophils (Bld) [#/Vol] 0.0 10*3/uL 0.0-0.2 [facility] Basophils/100 WBC Auto (Bld) Ordered By: Kallie Chang on 09-16-2022 Basophils/100 WBC (Bld) 0.3 % . [facility] Bilirubin.total [Mass/volume ] in Serum or PlasmaOrdered By: Kallie Chang on 09-16-2022 Bilirubin [Mass/Vol] 0.6 mg/dL 0.3-1.2 [facility] Calcium [Mass/volume] in Ser um or PlasmaOrdered By: Kallie Chang on 09-16-2022 Calcium [Mass/Vol] 9.2 mg/dL 8.2-10.2 [facility] Carbon dioxide, total [Moles /volume] in Serum or PlasmaOrdered By: Kallie Chang on 09-16-2022 CO2 [Moles/Vol] 23.1 mmol/L 22.0-30.0 [facility] Chloride [Moles/volume] in S nathaly or PlasmaOrdered By: Kallie Chang on 09-16-2022 Chloride [Moles/Vol] 102 mmol/L 95-114 [facility] Creatinine and Glomerular fi ltration rate.predicted panel (S/P/Bld)Ordered By: Kallie Chang on 09-16-2022 Creatinine [Mass/Vol] 0.98 mg/dL 0.44-1.03 [facility] Eosinophils Auto (Bld) [#/Vo l]Ordered By: Kallie Chang on 09-16-2022 Eosinophils (Bld) [#/Vol] 0.0 10*3/uL 0.0-0.45 [facility] Eosinophils/100 WBC Auto (Bl d)Ordered By: Kallie Chang on 09-16-2022 Eosinophils/100 WBC (Bld) 0.1 % . [facility] Erythrocyte distribution wid th Auto (RBC) [Ratio]Ordered By: Kallie Chang on 09-16-2022 Erythrocyte distribution width (RBC) [Ratio] 15.1 % 11.9-15.3 [facility] Estimated glomerular filtrat ion rate (GFR) non- AmericanOrdered By: Kallie Chang on 09-16-2022 GFR/1.73 sq M.predicted among non-blacks MDRD (S/P/Bld) [Vol rate/Area] > 60 mL/Min [facility] Globulin Calc (S) [Mass/Vol] Ordered By: Kallie Chang on 09-16-2022 Globulin (S) [Mass/Vol] 2.8 g/dL [facility] Glucose [Mass/volume] in Ser um or PlasmaOrdered By: Kallie Chang on 09-16-2022 Glucose [Mass/Vol] 176 mg/dL 70-100 [facility] Comment on above: ADA recommended refe rence rangeRandom Glucose Reference Range is dependent on time and content of last meal. Glucose of more than 200 mg/dL in a nonstressed, ambulatory subject supports the diagnosis of Diabetes Mellitus. Hematocrit Auto (Bld) [Volum e fraction]Ordered By: Kallie Chang on 09-16-2022 Hematocrit (Bld) [Volume fraction] 38.3 % 34.0-46.4 [facility] Hemoglobin [Mass/volume] in BloodOrdered By: Kallie Chang on 09-16-2022 Hemoglobin (Bld) [Mass/Vol] 12.5 g/dL 11.8-15.4 [facility] Leukocytes [#/volume] correc annie for nucleated erythrocytes in Blood by Automated counOrdered By: Kallie Chang on 09-16-2022 WBC corrected for nucl RBC Auto (Bld) [#/Vol] 11.5 10*3/uL 3.8-11.6 [facility] Lymphocytes Auto (Bld) [#/Vo l]Ordered By: Kallie Chang on 09-16-2022 Lymphocytes (Bld) [#/Vol] 0.7 10*3/uL 1.00-4.8 [facility] Lymphocytes/100 WBC Auto (Bl d)Ordered By: Kallie Chang on 09-16-2022 Lymphocytes/100 WBC (Bld) 6.2 % . [facility] MCH Auto (RBC) [Entitic mass ]Ordered By: Kallie Chang on 09-16-2022 MCH (RBC) [Entitic mass] 30.2 pg 24.7-34.3 [facility] MCHC Auto (RBC) [Mass/Vol]Or dered By: Kallie Chang on 09-16-2022 MCHC (RBC) [Mass/Vol] 32.7 g/dL 32.0-35.[address] [facility] MCV Auto (RBC) [Entitic vol] Ordered By: Kallie Chang on 09-16-2022 MCV (RBC) [Entitic vol] 92.4 fL 80-100 [facility] Monocytes Auto (Bld) [#/Vol] Ordered By: Kallie Chang on 09-16-2022 Monocytes (Bld) [#/Vol] 0.3 10*3/uL 0.0-0.8 [facility] Monocytes/100 WBC Auto (Bld) Ordered By: Kallie Chang on 09-16-2022 Monocytes/100 WBC (Bld) 2.3 % . [facility] Neutrophils Auto (Bld) [#/Vo l]Ordered By: Kallie Chang on 09-16-2022 Neutrophils (Bld) [#/Vol] 10.4 10*3/uL 1.8-7.7 [facility] Neutrophils/100 WBC Auto (Bl d)Ordered By: Kallie Chang on 09-16-2022 Neutrophils/100 WBC (Bld) 91.1 % . [facility] No Panel InformationOrdered By: Kallie Chang on 09-16-2022 Adrenocorticotropic Hormone <1.5 pg/mL 7.2-63.3 [facility] Comment on above: ACTH reference inter ervin for samples collected between 7 and10 AM.Performed at: [facility] [id number] Director: Red Sena PhD, Phone: [phone] Estimated GFR () > 60 mL/Min [facility] Comment on above: GFR estimated refere nce range: According to KDOQI guidelines, <60 ml/min/1.73m2 is sufficient to diagnose a patient with chronic kidney disease. Pharmacy Creatinine Clearance (Chem 72.74 [facility] Nucleated erythrocytes [Pres ence] in Blood by Automated countOrdered By: Kallie Chang on 09-16-2022 Nucleated RBC Auto Ql (Bld) 0.1 /100{WBC} 0-0.5 [facility] Platelet mean volume Auto (B ld) [Entitic vol]Ordered By: Kallie Chang on 09-16-2022 Platelet mean volume (Bld) [Entitic vol] 6.9 fL 6.3-10.7 [facility] Platelets Auto (Bld) [#/Vol] Ordered By: Kallie Chang on 09-16-2022 Platelets (Bld) [#/Vol] 287 10*3/uL 150-450 [facility] Potassium [Moles/volume] in Serum or PlasmaOrdered By: Kallie Chang on 09-16-2022 Potassium [Moles/Vol] 4.3 mmol/L 3.5-5.1 [facility] Protein [Mass/volume] in Ser um or PlasmaOrdered By: Kallie Chang on 09-16-2022 Protein [Mass/Vol] 6.5 g/dL 6.1-7.9 [facility] RBC Auto (Bld) [#/Vol]Ordere d By: Kallie Chang on 09-16-2022 RBC (Bld) [#/Vol] 4.14 10*6/uL 3.60-5.00 [facility] Random cortisol measurementO rdered By: Kallie Chang on 09-16-2022 Cortisol [Mass/Vol] 3.7 ug/dL [facility] Comment on above: Reference range: AM 6 - 24 ug/dl PM <10 ug/dl Serum or plasma alanine napoles otransferase measurement without P-5'-P (enzymatic activiOrdered By: Kallie Chang on 09-16-2022 ALT No additional P-5'-P [Catalytic activity/Vol] 16 U/L 10-60 [facility] Serum or plasma albumin/glob ulin mass ratioOrdered By: Kallie Chang on 09-16-2022 Albumin/Globulin [Mass ratio] 1.3 {ratio} [facility] Serum or plasma anion gap de terminationOrdered By: Kallie Chang on 09-16-2022 Anion gap [Moles/Vol] 13.2 mmol/L 6.0-15.0 [facility] Sodium [Moles/volume] in Ser um or PlasmaOrdered By: Kallie Chang on 09-16-2022 Sodium [Moles/Vol] 134 mmol/L 136-146 [facility] TSH DL <= 0.005 mIU/L QnOrde red By: Kallie Chang on 09-16-2022 TSH Qn 0.51 m[IU]/L 0.45-5.33 [facility] Thyroxine (T4) free [Mass/vo lume] in Serum or PlasmaOrdered By: Kallie Chang on 09-16-2022 Free T4 [Mass/Vol] 0.84 ng/dL 0.61-1.12 [facility] Urea nitrogen [Mass/volume] in Serum or PlasmaOrdered By: Kallie Chang on 09-16-2022 Urea nitrogen [Mass/Vol] 15 mg/dL 9-23 [facility] WBC Auto (Bld) [#/Vol]Ordere d By: Kallie Chang on 09-16-2022 WBC (Bld) [#/Vol] 11.5 10*3/uL 3.8-11.6 [facility] Albumin [Mass/volume] in Ser um or PlasmaOrdered By: Kallie Chang on 08-05-2022 Albumin [Mass/Vol] 3.8 g/dL 3.2-5.5 [facility] Basophils Auto (Bld) [#/Vol] Ordered By: Kallie Chang on 08-05-2022 Basophils (Bld) [#/Vol] 0.0 10*3/uL 0.0-0.2 [facility] Basophils/100 WBC Auto (Bld) Ordered By: Kallie Chang on 08-05-2022 Basophils/100 WBC (Bld) 0.2 % . [facility] Creatinine and Glomerular fi ltration rate.predicted panel (S/P/Bld)Ordered By: Kallie Chang on 08-05-2022 Creatinine [Mass/Vol] 1.03 mg/dL 0.44-1.03 [facility] Eosinophils Auto (Bld) [#/Vo l]Ordered By: Kallie Chang on 08-05-2022 Eosinophils (Bld) [#/Vol] 0.0 10*3/uL 0.0-0.45 [facility] Eosinophils/100 WBC Auto (Bl d)Ordered By: Kallie Chang on 08-05-2022 Eosinophils/100 WBC (Bld) 0.0 % . [facility] Erythrocyte distribution wid th Auto (RBC) [Ratio]Ordered By: Kallie Chang on 08-05-2022 Erythrocyte distribution width (RBC) [Ratio] 14.9 % 11.9-15.3 [facility] Estimated glomerular filtrat ion rate (GFR) non- AmericanOrdered By: Kallie Chang on 08-05-2022 GFR/1.73 sq M.predicted among non-blacks MDRD (S/P/Bld) [Vol rate/Area] 58 mL/Min [facility] Globulin Calc (S) [Mass/Vol] Ordered By: Kallie Chang on 08-05-2022 Globulin (S) [Mass/Vol] 2.9 g/dL [facility] Hematocrit Auto (Bld) [Volum e fraction]Ordered By: Kallie Chang on 08-05-2022 Hematocrit (Bld) [Volume fraction] 37.2 % 34.0-46.4 [facility] Hemoglobin [Mass/volume] in BloodOrdered By: Kallie Chang on 08-05-2022 Hemoglobin (Bld) [Mass/Vol] 12.2 g/dL 11.8-15.4 [facility] Lactate dehydrogenase measur ement (enzymatic activity/volume)Ordered By: Kallie Chang on 08-05-2022 LDH (Unsp spec) [Catalytic activity/Vol] 169 U/L 45-190 [facility] Leukocytes [#/volume] correc annie for nucleated erythrocytes in Blood by Automated counOrdered By: Kallie Chang on 08-05-2022 WBC corrected for nucl RBC Auto (Bld) [#/Vol] 9.3 10*3/uL 3.8-11.6 [facility] Lymphocytes Auto (Bld) [#/Vo l]Ordered By: Kallie Chang on 08-05-2022 Lymphocytes (Bld) [#/Vol] 0.5 10*3/uL 1.00-4.8 [facility] Lymphocytes/100 WBC Auto (Bl d)Ordered By: Kallie Chang on 08-05-2022 Lymphocytes/100 WBC (Bld) 5.5 % . [facility] MCH Auto (RBC) [Entitic mass ]Ordered By: Kallie Chang on 08-05-2022 MCH (RBC) [Entitic mass] 29.8 pg 24.7-34.3 [facility] MCHC Auto (RBC) [Mass/Vol]Or dered By: Kallie Chang on 08-05-2022 MCHC (RBC) [Mass/Vol] 32.8 g/dL 32.0-35.[address] [facility] MCV Auto (RBC) [Entitic vol] Ordered By: Kallie Chang on 08-05-2022 MCV (RBC) [Entitic vol] 90.9 fL 80-100 [facility] Monocytes Auto (Bld) [#/Vol] Ordered By: Kallie Chang on 08-05-2022 Monocytes (Bld) [#/Vol] 0.1 10*3/uL 0.0-0.8 [facility] Monocytes/100 WBC Auto (Bld) Ordered By: Kallie Chang on 08-05-2022 Monocytes/100 WBC (Bld) 1.4 % . [facility] Neutrophils Auto (Bld) [#/Vo l]Ordered By: Kallie Chang on 08-05-2022 Neutrophils (Bld) [#/Vol] 8.7 10*3/uL 1.8-7.7 [facility] Neutrophils/100 WBC Auto (Bl d)Ordered By: Kallie Chang on 08-05-2022 Neutrophils/100 WBC (Bld) 92.9 % . [facility] No Panel InformationOrdered By: Kallie Chang on 08-05-2022 Adrenocorticotropic Hormone <1.5 pg/mL 7.2-63.3 [facility] Comment on above: ACTH reference inter ervin for samples collected between 7 and10 AM.Performed at: [facility] [address] [id number] Director: Red Sena PhD, Phone: [phone] Estimated GFR () > 60 mL/Min [facility] Comment on above: GFR estimated refere nce range: According to KDOQI guidelines, <60 ml/min/1.73m2 is sufficient to diagnose a patient with chronic kidney disease. Pharmacy Creatinine Clearance (Chem 67.73 [facility] Nucleated erythrocytes [Pres ence] in Blood by Automated countOrdered By: Kallie Chang on 08-05-2022 Nucleated RBC Auto Ql (Bld) 0.0 /100{WBC} 0-0.5 [facility] Platelet mean volume Auto (B ld) [Entitic vol]Ordered By: Kallie Chang on 08-05-2022 Platelet mean volume (Bld) [Entitic vol] 7.1 fL 6.3-10.7 [facility] Platelets Auto (Bld) [#/Vol] Ordered By: Kallie Chang on 08-05-2022 Platelets (Bld) [#/Vol] 263 10*3/uL 150-450 [facility] Protein [Mass/volume] in Ser um or PlasmaOrdered By: Kallie Chang on 08-05-2022 Protein [Mass/Vol] 6.7 g/dL 6.1-7.9 [facility] RBC Auto (Bld) [#/Vol]Ordere d By: Kallie Chang on 08-05-2022 RBC (Bld) [#/Vol] 4.09 10*6/uL 3.60-5.00 [facility] Serum or plasma alanine napoles otransferase measurement without P-5'-P (enzymatic activiOrdered By: Kallie Chang on 08-05-2022 ALT No additional P-5'-P [Catalytic activity/Vol] 16 U/L 10-60 [facility] Serum or plasma albumin/glob ulin mass ratioOrdered By: Kallie Chang on 08-05-2022 Albumin/Globulin [Mass ratio] 1.3 {ratio} [facility] Serum or plasma alkaline zo sphatase measurement (enzymatic activity/volume)Ordered By: Kallie Chang on 08-05-2022 ALP [Catalytic activity/Vol] 89 U/L 32-92 [facility] Serum or plasma anion gap de terminationOrdered By: Kallie Chang on 08-05-2022 Anion gap [Moles/Vol] 16.6 mmol/L 6.0-15.0 [facility] Serum or plasma aspartate am inotransferase measurement (enzymatic activity/volume)Ordered By: Kallie Chang on 08-05-2022 AST [Catalytic activity/Vol] 18 U/L 10-42 [facility] Serum or plasma calcium daiana urement (mass/volume)Ordered By: Kallie Chang on 08-05-2022 Calcium [Mass/Vol] 9.1 mg/dL 8.2-10.2 [facility] Serum or plasma chloride lizett surement (moles/volume)Ordered By: Kallie Chang on 08-05-2022 Chloride [Moles/Vol] 99 mmol/L 95-114 [facility] Serum or plasma glucose daiana urement (mass/volume)Ordered By: Kallie Chang on 08-05-2022 Glucose [Mass/Vol] 164 mg/dL 70-100 [facility] Comment on above: ADA recommended refe rence rangeRandom Glucose Reference Range is dependent on time and content of last meal. Glucose of more than 200 mg/dL in a nonstressed, ambulatory subject supports the diagnosis of Diabetes Mellitus. Serum or plasma potassium me asurement (moles/volume)Ordered By: Kallie Chang on 08-05-2022 Potassium [Moles/Vol] 4.6 mmol/L 3.5-5.1 [facility] Serum or plasma sodium measu rement (moles/volume)Ordered By: Kallie Chang on 08-05-2022 Sodium [Moles/Vol] 135 mmol/L 136-146 [facility] Serum or plasma total biliru bin measurement (mass/volume)Ordered By: Kallie Chang on 08-05-2022 Bilirubin [Mass/Vol] 0.7 mg/dL 0.3-1.2 [facility] Serum or plasma total carbon dioxide measurement (moles/volume)Ordered By: Kallie Chang on 08-05-2022 CO2 [Moles/Vol] 24.0 mmol/L 22.0-30.0 [facility] Serum or plasma urea nitroge n measurement (mass/volume)Ordered By: Kallie Chang on 08-05-2022 Urea nitrogen [Mass/Vol] 15 mg/dL 9-23 [facility] TSH DL <= 0.005 mIU/L QnOrde red By: Kallie Chang on 08-05-2022 TSH Qn 0.70 m[IU]/L 0.45-5.33 [facility] Thyroxine (T4) free [Mass/vo lume] in Serum or PlasmaOrdered By: Kallie Chang on 08-05-2022 Free T4 [Mass/Vol] 0.71 ng/dL 0.61-1.12 [facility] WBC Auto (Bld) [#/Vol]Ordere d By: Kallie Chang on 08-05-2022 WBC (Bld) [#/Vol] 9.3 10*3/uL 3.8-11.6 [facility] Random cortisol measurementO rdered By: Kallie Chang on 07-22-2022 Cortisol [Mass/Vol] 2.6 ug/dL [facility] Comment on above: Reference range: AM 6 - 24 ug/dl PM <10 ug/dl Albumin [Mass/volume] in Ser um or PlasmaOrdered By: Kallie Chang on 06-17-2022 Albumin [Mass/Vol] 3.6 g/dL 3.2-5.5 [facility] Basophils Auto (Bld) [#/Vol] Ordered By: Kallie Chang on 06-17-2022 Basophils (Bld) [#/Vol] 0.0 10*3/uL 0.0-0.2 [facility] Basophils/100 WBC Auto (Bld) Ordered By: Kallie Chang on 06-17-2022 Basophils/100 WBC (Bld) 0.7 % . [facility] Creatinine and Glomerular fi ltration rate.predicted panel (S/P/Bld)Ordered By: Kallie Chang on 06-17-2022 Creatinine [Mass/Vol] 0.66 mg/dL 0.44-1.03 [facility] Eosinophils Auto (Bld) [#/Vo l]Ordered By: Kallie Chang on 06-17-2022 Eosinophils (Bld) [#/Vol] 0.1 10*3/uL 0.0-0.45 [facility] Eosinophils/100 WBC Auto (Bl d)Ordered By: Kallie Chang on 06-17-2022 Eosinophils/100 WBC (Bld) 2.7 % . [facility] Erythrocyte distribution wid th Auto (RBC) [Ratio]Ordered By: Kallie Chang on 06-17-2022 Erythrocyte distribution width (RBC) [Ratio] 13.2 % 11.9-15.3 [facility] Estimated glomerular filtrat ion rate (GFR) non- AmericanOrdered By: Kallie Chang on 06-17-2022 GFR/1.73 sq M.predicted among non-blacks MDRD (S/P/Bld) [Vol rate/Area] > 60 mL/Min [facility] Globulin Calc (S) [Mass/Vol] Ordered By: Kallie Chang on 06-17-2022 Globulin (S) [Mass/Vol] 2.6 g/dL [facility] Hematocrit Auto (Bld) [Volum e fraction]Ordered By: Kallie Chang on 06-17-2022 Hematocrit (Bld) [Volume fraction] 32.8 % 34.0-46.4 [facility] Hemoglobin [Mass/volume] in BloodOrdered By: Kallie Chang on 06-17-2022 Hemoglobin (Bld) [Mass/Vol] 10.7 g/dL 11.8-15.4 [facility] Leukocytes [#/volume] correc annie for nucleated erythrocytes in Blood by Automated counOrdered By: Kallie Chang on 06-17-2022 WBC corrected for nucl RBC Auto (Bld) [#/Vol] 5.1 10*3/uL 3.8-11.6 [facility] Lymphocytes Auto (Bld) [#/Vo l]Ordered By: Kallie Chang on 06-17-2022 Lymphocytes (Bld) [#/Vol] 0.9 10*3/uL 1.00-4.8 [facility] Lymphocytes/100 WBC Auto (Bl d)Ordered By: Kallie Chang on 06-17-2022 Lymphocytes/100 WBC (Bld) 17.2 % . [facility] MCH Auto (RBC) [Entitic mass ]Ordered By: Kallie Chang on 06-17-2022 MCH (RBC) [Entitic mass] 29.5 pg 24.7-34.3 [facility] MCHC Auto (RBC) [Mass/Vol]Or dered By: Kallie Chang on 06-17-2022 MCHC (RBC) [Mass/Vol] 32.8 g/dL 32.0-35.[address] [facility] MCV Auto (RBC) [Entitic vol] Ordered By: Kallie Chang on 06-17-2022 MCV (RBC) [Entitic vol] 90.0 fL 80-100 [facility] Monocytes Auto (Bld) [#/Vol] Ordered By: Kallie Chang on 06-17-2022 Monocytes (Bld) [#/Vol] 0.5 10*3/uL 0.0-0.8 [facility] Monocytes/100 WBC Auto (Bld) Ordered By: Kallie Chang on 06-17-2022 Monocytes/100 WBC (Bld) 10.3 % . [facility] Neutrophils Auto (Bld) [#/Vo l]Ordered By: Kallie Chang on 06-17-2022 Neutrophils (Bld) [#/Vol] 3.5 10*3/uL 1.8-7.7 [facility] Neutrophils/100 WBC Auto (Bl d)Ordered By: Kallie Chang on 06-17-2022 Neutrophils/100 WBC (Bld) 69.1 % . [facility] No Panel InformationOrdered By: Kallie Chang on 06-17-2022 Adrenocorticotropic Hormone 8.2 pg/mL 7.2-63.3 [facility] Comment on above: ACTH reference inter ervin for samples collected between 7 and10 AM.Performed at: [employer] [id number] Director: Red Sena PhD, Phone: [phone] Estimated GFR () > 60 mL/Min [facility] Comment on above: GFR estimated refere nce range: According to KDOQI guidelines, <60 ml/min/1.73m2 is sufficient to diagnose a patient with chronic kidney disease. Pharmacy Creatinine Clearance (Chem 110.52 [facility] Nucleated erythrocytes [Pres ence] in Blood by Automated countOrdered By: Kallie Chang on 06-17-2022 Nucleated RBC Auto Ql (Bld) 0.0 /100{WBC} 0-0.5 [facility] Platelet mean volume Auto (B ld) [Entitic vol]Ordered By: Kallie Chang on 06-17-2022 Platelet mean volume (Bld) [Entitic vol] 7.2 fL 6.3-10.7 [facility] Platelets Auto (Bld) [#/Vol] Ordered By: Kallie Chang on 06-17-2022 Platelets (Bld) [#/Vol] 241 10*3/uL 150-450 [facility] Protein [Mass/volume] in Ser um or PlasmaOrdered By: Kallie Chang on 06-17-2022 Protein [Mass/Vol] 6.2 g/dL 6.1-7.9 [facility] RBC Auto (Bld) [#/Vol]Ordere d By: Kallie Chang on 06-17-2022 RBC (Bld) [#/Vol] 3.64 10*6/uL 3.60-5.00 [facility] Random cortisol measurementO rdered By: Kallie Chang on 06-17-2022 Cortisol [Mass/Vol] 0.4 ug/dL [facility] Comment on above: Reference range: AM 6 - 24 ug/dl PM <10 ug/dl Serum or plasma alanine napoles otransferase measurement without P-5'-P (enzymatic activiOrdered By: Kallie Chang on 06-17-2022 ALT No additional P-5'-P [Catalytic activity/Vol] 34 U/L 10-60 [facility] Serum or plasma albumin/glob ulin mass ratioOrdered By: Kallie Chang on 06-17-2022 Albumin/Globulin [Mass ratio] 1.4 {ratio} [facility] Serum or plasma alkaline zo sphatase measurement (enzymatic activity/volume)Ordered By: Kallie Chang on 06-17-2022 ALP [Catalytic activity/Vol] 82 U/L 32-92 [facility] Serum or plasma anion gap de terminationOrdered By: Kallie Chang on 06-17-2022 Anion gap [Moles/Vol] 11.1 mmol/L 6.0-15.0 [facility] Serum or plasma aspartate am inotransferase measurement (enzymatic activity/volume)Ordered By: Kallie Chang on 06-17-2022 AST [Catalytic activity/Vol] 36 U/L 10-42 [facility] [facility] Serum or plasma calcium daiana urement (mass/volume)Ordered By: Kallie Chang on 06-17-2022 Calcium [Mass/Vol] 9.5 mg/dL 8.2-10.2 [facility] Serum or plasma chloride lizett surement (moles/volume)Ordered By: Kallie Chang on 06-17-2022 Chloride [Moles/Vol] 101 mmol/L 95-114 [facility] Serum or plasma glucose daiana urement (mass/volume)Ordered By: Kallie Chang on 06-17-2022 Glucose [Mass/Vol] 94 mg/dL 70-100 [facility] Comment on above: ADA recommended refe rence rangeRandom Glucose Reference Range is dependent on time and content of last meal. Glucose of more than 200 mg/dL in a nonstressed, ambulatory subject supports the diagnosis of Diabetes Mellitus. Serum or plasma potassium me asurement (moles/volume)Ordered By: Kallie Chang on 06-17-2022 Potassium [Moles/Vol] 3.6 mmol/L 3.5-5.1 [facility] Serum or plasma sodium measu rement (moles/volume)Ordered By: Kallie Chang on 06-17-2022 Sodium [Moles/Vol] 133 mmol/L 136-146 [facility] Serum or plasma total biliru bin measurement (mass/volume)Ordered By: Kallie Chang on 06-17-2022 Bilirubin [Mass/Vol] 0.8 mg/dL 0.3-1.2 [facility] Serum or plasma total carbon dioxide measurement (moles/volume)Ordered By: Kallie Chang on 06-17-2022 CO2 [Moles/Vol] 24.5 mmol/L 22.0-30.0 [facility] Serum or plasma urea nitroge n measurement (mass/volume)Ordered By: Kallie Chang on 06-17-2022 Urea nitrogen [Mass/Vol] 7 mg/dL - [facility] TSH DL <= 0.005 mIU/L QnOrde red By: Kallie Chang on 06-17-2022 TSH Qn 2.66 m[IU]/L 0.45-5.33 [facility] Thyroxine (T4) free [Mass/vo lume] in Serum or PlasmaOrdered By: Kallie Chang on 06-17-2022 Free T4 [Mass/Vol] 0.43 ng/dL 0.61-1.12 [facility] WBC Auto (Bld) [#/Vol]Ordere d By: Kallie Chang on 06-17-2022 WBC (Bld) [#/Vol] 5.1 10*3/uL 3.8-11.6 [facility] Laboratory - Hematology and Cell countsOrdered By: Kallie Chang on 05-27-2022 Nucleated RBC/100 WBC (Bld) [Ratio] 0.1 % 0-0.5 [facility] No Panel InformationOrdered By: Kallie Chang on 05-27-2022 Adrenocorticotropic Hormone 14.9 pg/mL 7.2-63.3 [facility] Comment on above: ACTH reference inter ervin for samples collected between 7 and10 AM.Performed at: [facility] [id number] Director: Red Sena PhD, Phone: [phone] HCG ( test) Cheryl d Ql (U)Ordered By: Stacie Thomas on 04-16-2022 HCG ( test) Ql (U) Negative [facility] PAP ACOG PANEL 2: 30 to 65on 04-16-[address] [facility] Comment on above: Result Comment: Perf ormed at: WB Performed By: #### [id number] #### [facility] [address] [place] [address] Dr. Lilly Varner Age Gdln ACOG Testing 30-[address] [facility] Comment on above: Performed By: #### 4 [id number] #### [facility] [address] [address] [address] Lilly Varner DIAGNOSIS: Comment Normal [facility] Comment on above: Result Comment: NEGA TIVE FOR INTRAEPITHELIAL LESION OR MALIGNANCY. THIS SPECIMEN WAS RESCREENED PART OF OUR CLERICAL ASSOCIATE PROGRAM. Performed at: WB Performed By: #### [id number] #### [facility] [address] [place] [address] Dr. Lilly Varner HPV Aptima Positive Abnormal Negative [facility] Comment on above: Result Comment: This nucleic acid amplification test detects fourteen high-risk HPV types (16,18,31,33,35,39,45,51,52,56,58,59,66,68) without differentiation. Performed at: =G Performed By: #### 4 [id number] #### [facility] [address] [place] [address] Dr. Lilly Varner HPV Genotype 16 Negative Normal Negative [facility] Comment on above: Result Comment: Perf ormed at: =G Performed By: #### 4 [id number] #### [facility] [address] [place] [address] Dr. Lilly Varner HPV Genotype 18,45 Positive Abnormal Negative [facility] Comment on above: Result Comment: Perf ormed at: =G Performed By: #### 4 [id number] #### [facility] [address] [place] [address] Dr. Lilly Varner Methodology: Comment Normal [facility] Comment on above: Result Comment: This liquid based ThinPrep(R) pap test was screened with the use of an image guided system. Performed at: WB Performed By: #### 4 [id number] #### [facility] [address] [address] [address] Lilly Varner Note: Comment [facility] Comment on above: Result Comment: The Pap smear is a screening test designed to aid in the detection of premalignant and malignant conditions of the uterine cervix. It is not a diagnostic procedure and should not be used as the sole means of detecting cervical cancer. Both false-positive and false-negative reports do occur. . Performed at: WB Performed By: #### 4 [id number] #### [facility] [address] [address] [address] Lilly Varner Performed by: Comment Normal [facility] Comment on above: Result Comment: Nickie Ford, Desk Editor (ASCP) Performed at: WB Performed By: #### 4 [id number] #### [facility] [address] [place] [address] Dr. Lilly Varner QC reviewed by: Comment Normal [facility] Comment on above: Result Comment: Dequan Plaza, Supervisory Desk Editor (ASCP) Performed at: WB Performed By: #### 4 [id number] #### [facility] [address] [place] [address] Dr. Lilly Varner Specimen adequacy: Comment Normal [facility] Comment on above: Result Comment: Sati sfactory for evaluation. Endocervical and/or squamous metaplastic cells (endocervical component) are present. Performed at: WB Performed By: #### 4 [id number] #### [facility] [address] [place] [address] Dr. Lilly Varner XR DEXA BONE DENSITYon [...] by: KRISTA ROBERTSON Date: 2022-04-14 17:25 Normal [facility] VIT D 25-OH LABCORPon 2021 Vitamin D, 25-Hydroxy 19.5 ng/mL Critically low 30.0-100.0 [facility] Comment on above: Result Comment: [place] min D deficiency has been defined by the [place] of [employer] and an Endocrine Society practice guideline as a level of serum 25-OH vitamin D less than 20 ng/mL (1,2). The Endocrine Society went on to further define vitamin D insufficiency as a level between 21 and 29 ng/mL (2). 1. IOM ([place] of [employer]). 2010. Dietary reference intakes for calcium and D. [place]: The National Academies Press. 2. Lorena SANTIAGO, Art MEADOWS, Eleazar SPENCE, et al. Evaluation, treatment, and prevention of vitamin D deficiency: an Endocrine Society clinical practice guideline. JCEM. 2010; 96(7):1911-30. Performed By: #### V ITADLC #### [facility] [address] [place] [address] Dr. Lilly Varner CBC AUTO DIFFon 2022 BASO # 0.0 103/ul Normal 0.0-0.1 [facility] Comment on above: Performed By: #### C BC #### [facility] [address] [place] [address] Dr. Lilly Varner Basophils/100 WBC (Bld) 0.5 % Normal 0.2-2.0 [facility] Comment on above: Performed By: #### C BC #### [facility] [address] [place] [address] Dr. Lilly Varner EO # 0.5 103/ul Normal 0.0-0.7 [facility] Comment on above: Performed By: #### C BC #### [facility] [address] [place] [address] Dr. Lilly Varner Eosinophils/100 WBC (Bld) 6.4 % Normal 0.9-7.0 [facility] Comment on above: Performed By: #### C BC #### [facility] [address] [place] [address] Dr. Lilly Varner Erythrocyte distribution width (RBC) [Ratio] 13.0 % Normal 11.0-15.0 [facility] Comment on above: Performed By: #### C BC #### [facility] [address] [place] [address] Dr. Lilly Varner Hematocrit (Bld) [Volume fraction] 40.1 % Normal 36.0-48.0 [facility] Comment on above: Performed By: #### C BC #### [facility] [address] [place] [address] Dr. Lilly Varner Hemoglobin (Bld) [Mass/Vol] 12.7 g/dL Normal 12.0-16.0 [facility] Comment on above: Performed By: #### C BC #### [facility] [address] [place] [address] Dr. Lilly Varner IG # 0.04 10e3/ul Critically high 0.00-0.03 [facility] Comment on above: Performed By: #### C BC #### [facility] [address] [place] [address] Dr. Lilly Varner IG % 0.5 % Normal 0.0-0.5 [facility] Comment on above: Performed By: #### C BC #### [facility] [address] [place] [address] Dr. Lilly Varner LYMPH # 2.0 103/ul Normal 1.2-3.8 [facility] Comment on above: Performed By: #### C BC #### [facility] [address] [place] [address] Dr. Lilly Varner Lymphocytes/100 WBC (Bld) 24.3 % Normal 20.5-60.0 [facility] Comment on above: Performed By: #### C BC #### [facility] [address] [place] [address] Dr. Lilly Varner MANUAL DIFF REQ NO Normal [facility] Comment on above: Performed By: #### C BC #### [facility] [address] [place] [address] Dr. Lilly Varner MCH (RBC) [Entitic mass] 30.3 pg Normal 26.7-34.0 [facility] Comment on above: Performed By: #### C BC #### [facility] [address] [place] [address] Dr. Lilly Varner MCHC (RBC) [Mass/Vol] 31.7 g/dL Normal 29.9-35.2 [facility] Comment on above: Performed By: #### C BC #### [facility] [address] [place] [address] Dr. Lilly Varner MCV (RBC) [Entitic vol] 95.7 fL Normal 81.0-99.0 [facility] Comment on above: Performed By: #### C BC #### [facility] [address] [place] [address] Dr. Lilly Varner MONO # 0.5 103/ul Normal 0.3-0.8 [facility] Comment on above: Performed By: #### C BC #### [facility] [address] [place] [address] Dr. Lilly Varner Monocytes/100 WBC (Bld) 5.7 % Normal 1.7-12.0 [facility] Comment on above: Performed By: #### C BC #### [facility] [address] [place] [address] Dr. Lilly Varner NEUT # 5.1 103/ul Normal 1.4-6.5 [facility] Comment on above: Performed By: #### C BC #### [facility] [address] [place] [address] Dr. Lilly Varner Neutrophils/100 WBC (Bld) 62.6 % Normal 43.0-75.0 [facility] Comment on above: Performed By: #### C BC #### [facility] [address] [place] [address] Dr. Lilly Varner Platelet mean volume (Bld) [Entitic vol] 8.6 fL Critically low 9.5-13.5 [facility] Comment on above: Performed By: #### C BC #### [facility] [address] [address] [address] Lilly Varner PLT 279 103/ul Normal 150-450 [facility] Comment on above: Performed By: #### C BC #### [facility] [address] [address] [address] Lilly Varner RBC 4.19 106/ul Critically low 4.20-5.40 [facility] Comment on above: Performed By: #### C BC #### [facility] [address] [address] [address] Lilly Varner WBC 8.2 103/ul Normal 4.0-11.0 [facility] Comment on above: Performed By: #### C BC #### [facility] [address] [address] [address] Lilly Varner GLYCOHEMOGLOBIN A1Con 2021 ADA RECOMMENDATION SEE BELOW Normal [facility] Comment on above: Result Comment: ADA RECOMMENDED LIMIT 4.0 - 6.0 ADA THERAPEUTIC TARGET < 7.0 ACTION SUGGESTED > 7.0 Performed By: #### A 1C ####[facility] [address] [address]Dr[address] Lilly Varner Glucose [Mass/Vol] 128 mg/dL Normal [facility] Comment on above: Performed By: #### A 1C ####[facility] [address] [id number] Lilly Varner HbA1c (Bld) [Mass fraction] 6.1 % Normal 4.5-6.2 [facility] Comment on above: Performed By: #### A 1C ####[facility] [address] [id number] Lilly Varner LIPID PROFILEon 2022 CHOL-HDL RATIO NORM SEE BELOW Normal [facility] Comment on above: Result Comment: 3.3 - 4.4 LOW RISK 4.4 - 7.1 AVERAGE RISK 7.1 - 11.0 MODERATE RISK >11.0 HIGH RISK Performed By: #### C MP, TSH, LIPID #### [facility] [address] [address] [address] Lilly Varner Cholesterol [Mass/Vol] 291 mg/dL Critically high <=200 [facility] Comment on above: Performed By: #### C MP, TSH, LIPID #### [facility] [address] [address] [address] Lilly Varner Cholesterol in HDL [Mass/Vol] 60 mg/dL Normal 40-60 [facility] Comment on above: Performed By: #### C MP, TSH, LIPID #### [facility] [address] [address] [address] Lilly Varner Cholesterol in LDL [Mass/Vol] 209.6 mg/dL Normal [facility] Comment on above: Performed By: #### C MP, TSH, LIPID #### [facility] [address] [address] [address] Lilly Varner Cholesterol.total/Cholest caro in HDL [Mass ratio] 4.9 {ratio} Normal [facility] Comment on above: Performed By: #### C MP, TSH, LIPID #### [facility] [address] [address] [address] Lilly Varner HDL NORMAL > or = 60 mg/dl - LO W CARDIOVASCULAR RISK <40 mg/dl - HIGH CARDIOVASCULAR RISK Normal [facility] Comment on above: Performed By: #### C MP, TSH, LIPID #### [facility] [address] [address] [address] Lilly Varner LDL CALC NORMAL SEE BELOW Normal [facility] Comment on above: Result Comment: <100 mg/dl OPTIMAL 100 - 129 mg/dl NEAR OR ABOVE OPTIMAL 130 - 159 mg/dl BORDERLINE HIGH 160 - 189 mg/dl HIGH >190 mg/dl VERY HIGH Performed By: #### C MP, TSH, LIPID #### [facility] [address] [address] [address] Lilly Varner Triglyceride [Mass/Vol] 107 mg/dL Normal <=150 [facility] Comment on above: Performed By: #### C MP, TSH, LIPID #### [facility] [address] [address] [address] Lilly Varner VLDL CALC 21.4 mg/dL Normal [facility] Comment on above: Performed By: #### C MP, TSH, LIPID #### [facility] [address] [address] [address] Lilly Varner PROF 14(COMP METB)on 022 Albumin [Mass/Vol] 3.9 g/dL Normal 3.4-5.0 [facility] Comment on above: Performed By: #### C MP, TSH, LIPID #### [facility] [address] [address] [address] Lilly Varner Albumin/Globulin [Mass ratio] 1.1 {ratio} Normal [facility] Comment on above: Performed By: #### C MP, TSH, LIPID #### [facility] [address] [address] [address] Lilly Varner ALP [Catalytic activity/Vol] 103 U/L Normal 46-116 [facility] Comment on above: Performed By: #### C MP, TSH, LIPID #### [facility] [address] [place] [address] Dr. Lilly Varner ALT [Catalytic activity/Vol] 44 U/L Normal 14-59 [facility] Comment on above: Performed By: #### C MP, TSH, LIPID #### [facility] [address] [place] [address] Dr. Lilly Varner Anion gap [Moles/Vol] 12.7 mmol/L Normal [facility] Comment on above: Performed By: #### C MP, TSH, LIPID #### [facility] [address] [address] [address] Lilly Varner AST [Catalytic activity/Vol] 24 U/L Normal 15-37 [facility] Comment on above: Performed By: #### C MP, TSH, LIPID #### [facility] [address] [address] [address] Lilly Varner Bilirubin [Mass/Vol] 0.4 mg/dL Normal 0.2-1.0 [facility] Comment on above: Performed By: #### C MP, TSH, LIPID #### [facility] [address] [address] [address] Lilly Varner Calcium [Mass/Vol] 9.1 mg/dL Normal 8.5-10.1 [facility] Comment on above: Performed By: #### C MP, TSH, LIPID #### [facility] [address] [place] [address] Dr. Lilly Varner Chloride [Moles/Vol] 104 mmol/L Normal 98-107 [facility] Comment on above: Performed By: #### C MP, TSH, LIPID #### [facility] [address] [place] [address] Dr. Lilly Varner CO2 [Moles/Vol] 28.4 mmol/L Normal 21.0-32.0 [facility] Comment on above: Performed By: #### C MP, TSH, LIPID #### [facility] [address] [place] [address] Dr. Lilly Varner Creatinine [Mass/Vol] 0.75 mg/dL Normal 0.55-1.02 [facility] Comment on above: Performed By: #### C MP, TSH, LIPID #### [facility] [address] [place] [address] Dr. Lilly Varner EGFR-AF MONTSERRATIAN >60 Normal >=60 [facility] Comment on above: Performed By: #### C MP, TSH, LIPID #### [facility] [address] [place] [address] Dr. Lilly Varner EGFR-NON AF MONTSERRATIAN >60 Normal >=60 [facility] Comment on above: Performed By: #### C MP, TSH, LIPID #### [facility] [address] [place] [address] Dr. Lilly Varner Globulin (S) [Mass/Vol] 3.7 g/dL Normal [facility] Comment on above: Performed By: #### C MP, TSH, LIPID #### [facility] [address] [place] [address] Dr. Lilly Varner Glucose [Mass/Vol] 98 mg/dL Normal 74-106 [facility] Comment on above: Performed By: #### C MP, TSH, LIPID #### [facility] [address] [place] [address] Dr. Lilly Varner Potassium [Moles/Vol] 4.1 mmol/L Normal 3.5-5.1 [facility] Comment on above: Performed By: #### C MP, TSH, LIPID #### [facility] [address] [place] [address] Dr. Lilly Varner Protein [Mass/Vol] 7.6 g/dL Normal 6.4-8.2 [facility] Comment on above: Performed By: #### C MP, TSH, LIPID #### [facility] [address] [address] [address] Lilly Varner Sodium [Moles/Vol] 141 mmol/L Normal 136-[address] [facility] Comment on above: Performed By: #### C MP, TSH, LIPID #### [facility] [address] [place] [address] Dr. Lilly Varner Urea nitrogen [Mass/Vol] 16.0 mg/dL Normal 7.0-18.0 [facility] Comment on above: Performed By: #### C MP, TSH, LIPID #### [facility] [address] [place] [address] Dr. Lilly Varner Urea nitrogen/Creatinine [Mass ratio] 21.3 mg/mg Normal [facility] Comment on above: Performed By: #### C MP, TSH, LIPID #### [facility] [address] [place] [address] Dr. Lilly Varner TSHon 2022 TSH 1.280 uIU/mL Normal 0.358-3.[address] [facility] Comment on above: Performed By: #### C MP, TSH, LIPID #### [facility] [address] [place] [address] Dr. Lilly Varner [facility] 02-17 SARS-CoV-2 (COVID-19) RNA SHILPI+probe Ql (Unsp spec) Detected Critically abnormal NOT DETECTED [facility] Comment on above: Result Comment: This test is not yet approved or cleared by the [place] FDA. When there are no FDA-approved or cleared tests available, and other criteria are met, FDA can make tests available under an emergency access mechanism called an Emergency Use Authorization (EUA). The EUA for this test is supported by the [employer] of Health and Human Service's declaration that [...] longer be used). Performed By: #### C [facility] #### [facility] [address] [address] [address] 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 SEE COMMENT. -- Diagnosis Comment -- By report HER2 IHC is negative (1+). Krista Coto M.D. Electronically Signed Out 02/19/2022 Clinical Information Operative Findings: RIGHT BREAST 6:00 MASS AND CALCIFICATIONS Operation Performed: US GUIDED CORE BIOPSY OF BREAST Source of Specimen A: OUTSIDE SLIDES Gross Description Received from [facility] Department of Pathology are 6 slides labelled, [id number], TENISHA HANCOCK, for consultation at the request [...] 1410 OUTSIDE CONSULTATION Patient Name: TENISHA HANCOCK [facility] Rec: [id number] Path Number: [id number] [facility] ANATOM[facility] PATHOLOG[facility] [address] [place] [id number] Normal [facility] Comment on above: Performed By: #### P PPVOC #### [address] [address] Space [employer] Storage Clerk: Rico Melo MD [facility] BREAST SPECIMENon 2021 [facility] BREAST SPECIMEN EXAMINATION: SPECIMEN RADIOGRAPH 02/17/2022 [...] Eng MD 02/17/22 Final result Normal [facility] Specimen radiograph demonstrates inclusion of the targeted microcalcifications and biopsy clip Findings discussed with Dr. Murguia in person at 12:55pm on 02/17/2022 [facility] EXAMINATION: SPECIMEN RADIOGRAPH 02/17/2022 [...] coordinates are A3. Wire tip is intact. [facility] CORKY [employer] Work Phone: Radiology Study observation (narrative) CORKY LOPEZ [employer] Phone: WILLIE NEEDLE BREAST LOCALIZATI ON RIGHTon [...] Final result Normal [facility] NEEDLE LOCALIZATION [facility] 02-17-2022 Mammographic wire localization of biopsy clip and associated microcalcifications, as described. No residual mammographic mass. [facility] EXAMINATION: MAMMOGRAPHIC GUIDED NEEDLE LOCALIZATION OF [...] the wire. No significant residual mammographic mass. [facility] Radiology Study observation (narrative) CORKY RUIZ [facility] Work Phone: WILLIE NEEDLE LOCALIZATION RIG TOrdered By: Gage Eng on 02-17-2022 CORKY WELCH [facility] Work Phone: [place] LYMPHOSCINTIGRAMon 2021 [place] LYMPHOSCINTIGRAM [...] Eng MD 02/17/22 Final result Normal [facility] Prompt identificatio n of sentinel lymph node in the right axilla. [facility] CON[facility] EXAMINATION: LYMPHOSCINTIGRAPHY (INJECTION AND IMAGES) 02/17/2022 [...] ?->No Reason for Exam: Right Breast CA [facility] Gage Eng MD - 02/17/2022 EXAMINATION: LYMPHOSCINTIGRAPHY [...] sentinel lymph node in the right axilla. [employer] Phone: Radiology Study observation (narrative) [employer] Phone: [place] LYMPHOSCINTIGRAMOrdered B y: Gage Eng on 02-17-2022 [employer] Phone: Surgical Pathologyon 022 Surgical Pathology (NOTE) -- Diagnosis -- A. RIGHT AXILLARY SENTINEL LYMPH NODES, EXCISIONAL BIOPSIES: - NEGATIVE FOR MALIGNANCY (0/5). B. 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 Cassette summary: 1-26 component 1 artist representative submitted from lateral to medial with [...] DX: Negative for malignancy on frozen sections. ([facility], 02/17/22) Microscopic Description A, B. PROCEDURE: Excisional [...] lymp (more content not included)... Normal [facility] Comment on above: Performed By: #### P PPVS #### [id number] [place], [place] [id number] [employer] Clerk: Rico Melo MD MRI BREAST BILATERAL W [...] right mammogram of 22 April 2021 from [facility]. Other right mammogram of June 2021 at an outside facility is not available. HISTORY: ORDERING SYSTEM PROVIDED HISTORY: Malignant neoplasm of right female breast, unspecified estrogen receptor status, unspecified site of breast (HCC) TECHNOLOGIST PROVIDED HISTORY: STAT Creatinine as needed:->Yes Last MRI done at [facility] in [place]. Result scanned in Media Reason for Exam: Last MRI done at [facility] in [place]. Result scanned in Media , Malign Additional signs and symptoms: Last MRI done at [facility] in [place]. Result scanned in Media , Malignant neoplasm [...] Heber Fofana MD 02/04/22 Final result Normal [facility] 1. Area of 9 x 6 mm [...] ASSESSMENT - KNOWN BIOPSY PROVEN MALIGNANCY. [facility] RIS CONSOLIDATED EXAMINATION: MRI OF THE BILATERAL BREASTS WITHOUT AND WITH CONTRAST 02/04/2022 12:46 pm: TECHNIQUE: Multiplanar multisequence MRI of the bilateral breasts were performed without and with the administration of intravenous contrast. Data analysis was performed with color parametric mapping, image subtraction, and 3D reconstructions. COMPARISON: Comparison November 2 prior right breast ultrasound of 13 May 2021 and right mammogram of 22 April 2021 from [facility]. Other right mammogram of June 2021 at an outside facility is not available. HISTORY: ORDERING SYSTEM PROVIDED HISTORY: Malignant neoplasm of right female breast, unspecified estrogen receptor status, unspecified site of breast (HCC) TECHNOLOGIST PROVIDED HISTORY: STAT Creatinine as needed:->Yes Last MRI done at [facility] in [place]. Result scanned in Media Reason for Exam: Last MRI done at [facility] in [place]. Result scanned in Media , Malign Additional signs and symptoms: Last MRI done at [facility] in [place]. Result scanned in Media , Malignant neoplasm [...] signal intensity or contrast enhancement noted. [facility] RIS CONSOLIDATED Radiology Study observation (narrative) CORKY RUIZ [employer] Work Phone: MRI BREAST BILATERAL W WO CO NTRASTOrdered By: Heber Fofana on 02-04-2022 Interpretation and review of laboratory results Abnormal CORKY Norton [employer] Work Phone: CORKY [employer] Work Phone: Aamir 01-29-2022 CELINEN Telephone (BRCRAV) TENISHA HANCOCK ([id number]) 1975 DEF Date Time Provider Department 01/29/22 XIOMARA [...] Encounter Status:Closed by NAT RICKETTS on 02/02/22 [facility] DANIELAon 01-15-2022 CNOV Office Visit (PLASMN ) TENISHA HANCOCK ([id number]) 1975 F DEF Date Time Provider Department [...] breast in May 2021. Dr. Reza in [place] is her breast surgeon. 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 Tenisha Hancock was given supplemental information on [...] Past Histories independently gathered by the clinical client support professional and the remaining scribed note accurately describes my personal service to the patient. patient's condition reviewed and examined ? plan and options of management, complexity, risk benefit limitation potential complication, success /failure of management, expected result and recovery discussed ? I spent 30 minutes in the visit, with more than 50% of the total [id number] time of the visit in counseling / [...] Problem Li (more content not included)... Normal [facility] Aamir 01-15-2022 CELINEN [facility] TENISHA HANCOCK ([id number]) 1975 F DEF Date Time Provider Department [...] been, she has had studies at both [facility] and [facility]. I was able to have patient get a release and will also fax to [employer] what she has thus far. Our office will continue to work on getting all outside records to be submitted for a second review. Alvin Alexis 01/16/2022 1:25 PM Signed Pt calling regarding faxed info she had sent to [employer]. Pt asking if fax was received by [...] 1:20 PM Signed Imaging reports rec'd reviewed: Kenna 04/2021 - R screening abnl 2.4 cm [...] I see a teaching note 06/23/21 at [facility] but limited documentation since then [...] call with arrival time for that 01/23 [facility] 01/22/2022 3:14 PM Signed Patient called back, she left detailed message on voicemail to return her call at [phone]. Thank you. Nat Ricketts RN 01/22/2022 3:49 [...] for 60 min new cancer consult at [facility] Patient Sales & Service Associate 01/23/2022 9:57 AM Signed Pt scheduled Lucinda Alvarez Ma 01/23/2022 10:40 AM Signed Still have not received all records, I spoke to patient today and asked that she help expedite getting her pathology reports and slides from [place] along with all her images and reports, we also need all the workup done at [facility] and [place]. I provided Brandon fax number and patient advised she will help me gather all her records. Lucindaandres Edouard Kim De La Cruz 01/27/2022 10:00 AM Signed We still have not received path slides as of today. I called and LMOM for Jillian whom is the director of [employer] [facility] lab department to get an update. I will f/u once I receive a call from this office. Lucindaandres Edouard Kim De La Cruz 01/27/2022 10:07 AM Signed Please note patient's imaging and biopsies were from 04/2021 to 06/2021 due to being over 6 months old radiology will not review, images and reports are available for Dr. Lea to review. Lucinda Fadiajose Alvarez Ma 01/27/2022 10:34 AM Signed Jillian called from [place] she advised she will work on getting all slides sent to [facility]. Lucinda Tejadavi Alvarez Ma 01/28/2022 9:41 AM Signed Addended by: LUCINDA RED MA on: 01/28/2022 09:41 AM Modules accepted: Orders Allergies As of Date: 01/15/2022 (No Known Allergies) Date Reviewed: 01/15/2022 Reviewed by: Diamond Gibson - Fully Assessed Reason for Visit: Appointment [[id number]] Order(s):OUTSIDE SURG PATH SLIDE REVIEW [[id number]] Order #: [id number] Prescriptions as of 01/28/2022 - citalopram (CELEXA) 20 mg tablet Take 20 mg (more content not included)... Normal [facility] Basophils Auto (Bld) [#/Vol] Ordered By: Kallie Chang on 12-24-2021 Basophils (Bld) [#/Vol] 0.0 10*3/uL 0.0-0.2 [facility] Basophils/100 WBC Auto (Bld) Ordered By: Kallie Chang on 12-24-2021 Basophils/100 WBC (Bld) 0.3 % . F [facility] Blood hemoglobin measurement (mass/volume)Ordered By: Kallie Chang on 12-24-2021 Hemoglobin (Bld) [Mass/Vol] 10.3 g/dL 11.8-15.4 [facility] Blood leukocytes automated c ount (number/volume)Ordered By: Kallie Chang on 12-24-2021 WBC (Bld) [#/Vol] 5.8 10*3/uL 4.5-11.0 [facility] Body fluid albumin measureme nt (mass/volume)Ordered By: Kallie Chang on 12-24-2021 Albumin (Body fld) [Mass/Vol] 3.8 g/dL 3.2-5.5 [facility] Creatinine and Glomerular fi ltration rate.predicted panel (S/P/Bld)Ordered By: Kallie Chang on 12-24-2021 Creatinine [Mass/Vol] 0.66 mg/dL 0.44-1.03 [facility] Eosinophils Auto (Bld) [#/Vo l]Ordered By: Kallie Chang on 12-24-2021 Eosinophils (Bld) [#/Vol] 0.1 10*3/uL 0.0-0.45 [facility] Eosinophils/100 WBC Auto (Bl d)Ordered By: Kallie Cahng on 12-24-2021 Eosinophils/100 WBC (Bld) 0.9 % . [facility] Erythrocyte distribution wid th Auto (RBC) [Ratio]Ordered By: Kallie Chang on 12-24-2021 Erythrocyte distribution width (RBC) [Ratio] 13.9 % 11.9-15.3 [facility] Estimated glomerular filtrat ion rate (GFR) non- AmericanOrdered By: Kallie Chang on 12-24-2021 GFR/1.73 sq M.predicted among non-blacks MDRD (S/P/Bld) [Vol rate/Area] > 60 mL/Min [facility] Globulin Calc (S) [Mass/Vol] Ordered By: Kallie Chang on 12-24-2021 Globulin (S) [Mass/Vol] 3.0 g/dL [facility] Hematocrit Auto (Bld) [Volum e fraction]Ordered By: Kallie Chang on 12-24-2021 Hematocrit (Bld) [Volume fraction] 30.4 % 34.0-46.4 [facility] Laboratory - Hematology and Cell countsOrdered By: Kallie Chang on 12-24-2021 Nucleated RBC/100 WBC (Bld) [Ratio] 0.0 % 0-0.5 [facility] Lymphocytes Auto (Bld) [#/Vo l]Ordered By: Kallie Chang on 12-24-2021 Lymphocytes (Bld) [#/Vol] 1.2 10*3/uL 1.00-4.8 [facility] Lymphocytes/100 WBC Auto (Bl d)Ordered By: Kallie Chang on 12-24-2021 Lymphocytes/100 WBC (Bld) 21.5 % . [facility] MCH Auto (RBC) [Entitic mass ]Ordered By: Kallie Chang on 12-24-2021 MCH (RBC) [Entitic mass] 34.6 pg 24.7-34.3 [facility] MCHC Auto (RBC) [Mass/Vol]Or dered By: Kallie Chang on 12-24-2021 MCHC (RBC) [Mass/Vol] 33.9 g/dL 32.0-35.[address] [facility] MCV Auto (RBC) [Entitic vol] Ordered By: Kallie Chang on 12-24-2021 MCV (RBC) [Entitic vol] 102.2 fL 80-100 [facility] Macrocytes detectionOrdered By: Kallie Chang on 12-24-2021 Macrocytes Ql (Bld) Slight [facility] Monocytes Auto (Bld) [#/Vol] Ordered By: Kallie Chang on 12-24-2021 Monocytes (Bld) [#/Vol] 0.3 10*3/uL 0.0-0.8 [facility] Monocytes/100 WBC Auto (Bld) Ordered By: Kallie Chang on 12-24-2021 Monocytes/100 WBC (Bld) 5.5 % . [facility] Neutrophils Auto (Bld) [#/Vo l]Ordered By: Kallie Chang on 12-24-2021 Neutrophils (Bld) [#/Vol] 4.1 10*3/uL 1.8-7.7 [facility] Neutrophils/100 WBC Auto (Bl d)Ordered By: Kallie Chang on 12-24-2021 Neutrophils/100 WBC (Bld) 71.8 % . [facility] No Panel InformationOrdered By: Kallie Chang on 12-24-2021 Estimated GFR () > 60 mL/Min [facility] Comment on above: GFR estimated refere nce range: According to KDOQI guidelines, <60 ml/min/1.73m2 is sufficient to diagnose a patient with chronic kidney disease. Pharmacy Creatinine Clearance (Chem 115.02 [facility] Platelet Estimate Normal Normal [facility] Platelet Morphology Comment Normal Normal [facility] Poikilocytosis Slight [facility] Ovalocyte detectionOrdered B y: Kallie Chang on 12-24-2021 Ovalocytes LM Ql (Bld) [facility] mean volume Auto (B ld) [Entitic vol]Ordered By: Kallie Chang on 12-24-2021 Platelet mean volume (Bld) [Entitic vol] 8.0 fL 6.3-10.7 [facility] Platelets Auto (Bld) [#/Vol] Ordered By: Kallie Chang on 12-24-2021 Platelets (Bld) [#/Vol] 207 10*3/uL 150-450 [facility] Protein [Mass/volume] in Ser um or PlasmaOrdered By: Kallie Chang on 12-24-2021 Protein [Mass/Vol] 6.8 g/dL 6.1-7.9 [facility] RBC Auto (Bld) [#/Vol]Ordere d By: Kallie Chang on 12-24-2021 RBC (Bld) [#/Vol] 2.98 10*6/uL 3.60-5.00 [facility] RBC morphologyOrdered By: Precious Chang on 12-24-2021 RBC morphology finding Nom (Bld) N/A [facility] Serum or plasma alanine napoles otransferase measurement without P-5'-P (enzymatic activiOrdered By: Kallie Chang on 12-24-2021 ALT No additional P-5'-P [Catalytic activity/Vol] 20 U/L 10-60 [facility] Serum or plasma albumin/glob ulin mass ratioOrdered By: Kallie Chang on 12-24-2021 Albumin/Globulin [Mass ratio] 1.3 {ratio} [facility] Serum or plasma alkaline zo sphatase measurement (enzymatic activity/volume)Ordered By: Kallie Chang on 12-24-2021 ALP [Catalytic activity/Vol] 112 U/L 32-92 [facility] Serum or plasma aspartate am inotransferase measurement (enzymatic activity/volume)Ordered By: Kallie Chang on 12-24-2021 AST [Catalytic activity/Vol] 17 U/L 10-42 [facility] Serum or plasma calcium daiana urement (mass/volume)Ordered By: Kallie Chang on 12-24-2021 Calcium [Mass/Vol] 9.6 mg/dL 8.2-10.2 [facility] Serum or plasma chloride lizett surement (moles/volume)Ordered By: Kallie Chang on 12-24-2021 Chloride [Moles/Vol] 98 mmol/L 95-114 [facility] Serum or plasma glucose daiana urement (mass/volume)Ordered By: Kallie Chang on 12-24-2021 Glucose [Mass/Vol] 119 mg/dL 70-100 [facility] Comment on above: ADA recommended refe rence [...] on 12-24-2021 Potassium [Moles/Vol] 4.0 mmol/L 3.5-5.1 [facility] Serum or plasma sodium measu rement (moles/volume)Ordered By: Kallie Chang on 12-24-2021 Sodium [Moles/Vol] 134 mmol/L 136-146 [facility] Serum or plasma total biliru bin measurement (mass/volume)Ordered By: Kallie Chang on 12-24-2021 Bilirubin [Mass/Vol] 0.5 mg/dL 0.3-1.2 [facility] Serum or plasma total carbon dioxide measurement (moles/volume)Ordered By: Kallie Chang on 12-24-2021 CO2 [Moles/Vol] 23.2 mmol/L 22.0-30.0 [facility] Serum or plasma urea nitroge n measurement (mass/volume)Ordered By: Kallie Chang on 12-24-2021 Urea nitrogen [Mass/Vol] 7 mg/dL 9 [facility] CNPNon 12-19-2021 CNPN Telephone (DPQ) TENISHA HANCOCK ([id number]) 1975 F Date Time Provider Department 12/19/21 [...] Status:Closed by ALFREDO ORTEGA on 12/19/21 Normal [facility] No Panel InformationOrdered By: Kallie Chang on 12-16-2021 Adrenocorticotropic Hormone 31.0 pg/mL 7.2-63.3 [facility] Comment on above: ACTH reference inter ervin for samples collected between 7 and 10 AM. Performed at: [employer] [id number] [employer] Clerk: Red Sena PhD, Phone: [phone] ACTH reference inter ervin for samples collected between 7 and10 AM.Performed at: [employer] [id number] Director: Red Sena PhD, Phone: [phone] Random cortisol measurementO rdered By: Kallie Chang on 12-16-2021 Cortisol [Mass/Vol] 7.2 ug/dL [facility] Comment on above: Reference range: AM 6 - 24 ug/dl PM <10 ug/dl Reference range: AM 6 - 24 ug/dl PM <10 ug/dl TSH DL <= 0.005 mIU/L QnOrde red By: Kallie Chang on 12-16-2021 TSH Qn 0.08 m[IU]/L 0.45-5.33 [facility] Thyroxine (T4) free [Mass/vo lume] in Serum or PlasmaOrdered By: Kallie Chang on 12-16-2021 Free T4 [Mass/Vol] 0.74 ng/dL 0.61-1.12 [facility] No Panel InformationOrdered By: Kallie Chang on 12-02-2021 Dohle Bodies Slight [facility] Teardrop cell detectionOrder ed By: Kallie Chang on 12-02-2021 Dacrocytes LM Ql (Bld) Slight [facility] Toxic leukocyte granulation detectionOrdered By: Kallie Chang on 12-02-2021 Toxic granules LM Ql (Bld) Slight [facility] Basophils/100 WBC Auto (Bld) Ordered By: Kallie Chang on 11-04-2021 Basophils/100 WBC (Bld) 1 % 0-2 [facility] Blood anisocytosis detection Ordered By: Kallie Chang on 11-04-2021 Anisocytosis Ql (Bld) Moderate [facility] Blood polychromasia detectio n by light microscopyOrdered By: Kallie Chang on 11-04-2021 Polychromasia LM Ql (Bld) Slight [facility] Erythrocyte basophilic stipp ling detectionOrdered By: Kallie Chang on 11-04-2021 Basophilic stippling LM Ql (Bld) Rare [facility] Laboratory - Hematology and Cell countsOrdered By: Kallie Chang on 11-04-2021 Band form neutrophils/100 WBC (Bld) 1 % 0-5 [facility] Lymphocytes/100 WBC Auto (Bl d)Ordered By: Kallie Chang on 11-04-2021 Lymphocytes/100 WBC (Bld) 25 % 18-42 [facility] Monocytes/100 WBC Manual cnt (Bld)Ordered By: Kallie Chang on 11-04-2021 Monocytes/100 WBC (Bld) 6 % 2-11 [facility] Myelocytes/100 WBC Manual cn t (Bld)Ordered By: Kallie Chang on 11-04-2021 Myelocytes/100 WBC (Bld) 3 % 0-0 [facility] No Panel InformationOrdered By: Kallie Chang on 11-04-2021 Rouleau Slight [facility] Segmented neutrophils/100 WB C Manual cnt (Bld)Ordered By: Kallie Chang on 11-04-2021 Segmented neutrophils/100 WBC (Bld) 64 % 50-70 [facility] Otheron 06-06-1998 CONVERTED ELECTRONIC SIGNATURE PATI CARTAGENA, SUPERVISORY PER DIEM (Electronic signature on file) Final Signed Out: 06/06/1998 15:39 [facility] CONVERTED FINAL DIAGNOSIS SPECIMEN ADEQU ACY SATISFACTORY FOR EVALUATION GENERAL CATEGORIZATION BENIGN CELLULAR CHANGES DESCRIPTIVE DIAGNOSIS FUNGAL ORGANISMS MORPHOLOGICALLY CONSISTENT WITH JUAN CARLOS SPECIES. INFLAMMATORY CELL CHANGES. HORMONAL EVALUATION HORMONAL PATTERN COMPATIBLE WITH AGE AND HISTORY [facility] CONVERTED ORDERING PROVIDER Ordering Provider: JAMARI HOYT [facility] CONVERTED PAP DISCLAIMER The Pap test se rves as a screening tool for early detection of cervical cancer. The Pap test does not represent a final diagnostic test for cervical cancer. Furthermore, the Pap test was not designed to screen for other malignancies (endometrial, ovarian cancer, etc....). False negatives and false positives have occurred. If clinically indicated, further patient evaluation is recommended. [facility] Vital Signs Date Time Vital Sign Value Performing Clinician Gianluca parkinson 06-26-2024 14:290500 Body height 160 cm Demetra Sparrow SUPPLY SERVICE WORKER Work Phone: [facility] 06-26-2024 14:29-0500 Body mass index (BMI) [Ratio] 28.61 kg/m2 Demetra Sparrow SUPPLY SERVICE WORKER Work Phone: [facility] 06-26-2024 14:29-0500 Body temperature 96.8 [degF] Demetra Sparrow SUPPLY SERVICE WORKER Work Phone: [facility] 06-26-2024 14:290500 Body weight 73.26 kg Demetra Sparrow SUPPLY SERVICE WORKER Work Phone: [facility] 06-26-2024 14:29-0500 Diastolic blood pressure 68 mm[Hg] Demetra Sparrow SUPPLY SERVICE WORKER Work Phone: [facility] 06-26-2024 14:29-0500 Heart rate 85 /min Demetra Sparrow SUPPLY SERVICE WORKER Work Phone: [facility] 06-26-2024 14:29-0500 Respiratory rate 16 /min Demetra Sparrow SUPPLY SERVICE WORKER Work Phone: [facility] 06-26-2024 14:29-0500 SaO2% (BldA) [Mass fraction] 98 % Demetra Sparrow SUPPLY SERVICE WORKER Work Phone: [facility] 06-26-2024 14:29-0500 Systolic blood pressure 110 mm[Hg] Demetra Sparrow SUPPLY SERVICE WORKER Work Phone: [facility] 06-01-2024 10:32-0500 Body height 160 cm Hi Nguyễn DPM Work Phone: [facility] 06-01-2024 10:32-0500 Body mass index (BMI) [Ratio] 28.52 kg/m2 Hi Nguyễn DPM Work Phone: [facility] 06-01-2024 10:32-0500 Body weight 73.03 kg Hi Nguyễn DPM Work Phone: [facility] 06-01-2024 10:32-0500 Diastolic blood pressure 79 mm[Hg] Hi Nguyễn DPM Work Phone: [facility] 06-01-2024 10:32-0500 Heart rate 83 /min Hi Nguyễn DPM Work Phone: [facility] 06-01-2024 10:32-0500 Systolic blood pressure 128 mm[Hg] iH Nguyễn DPM Work Phone: [facility] 04-17-2024 15:36-0400 Body mass index (BMI) [Ratio] 28.34 kg/m2 Chidi Sergey DO Work Phone: [facility] 04-17-2024 15:36-0400 Body weight 72.58 kg Chidi Sergey DO Work Phone: [facility] 04-17-2024 15:36-0400 Diastolic blood pressure 70 mm[Hg] Chidi Sergey DO Work Phone: [facility] 04-17-2024 15:36-0400 Systolic blood pressure 114 mm[Hg] Chidi Sergey DO Work Phone: [facility] 11-03-2023 15:43-0400 Blood Pressure Location Ismael MCGOWANL [facility] [place] 11-03-2023 15:43-0400 Diastolic blood pressure 66 mm[Hg] Ismael NILL [facility] [place] 11-03-2023 15:43-0400 Heart rate 70 /min Ismael NILL [facility] [place] 11-03-2023 15:43-0400 Respiratory rate 16 /min Ismael NILL [facility] [place] 11-03-2023 15:43-0400 Systolic blood pressure 112 mm[Hg] Ismael NILL [facility] [place] 11-25-2022 14:42-0400 Body temperature 97.8 [degF] MD Eliel Hurd Work Phone: [facility] 11-25-2022 14:42-0400 Body weight 79.83 kg MD Eliel Hurd Work Phone: [facility] 11-25-2022 14:42-0400 Diastolic blood pressure 73 mm[Hg] MD Eliel Hurd Work Phone: [facility] 11-25-2022 14:42-0400 Heart rate 75 /min MD Eliel Hurd Work Phone: [facility] 11-25-2022 14:42-0400 Respiratory rate 16 /min MD Eliel Hurd Work Phone: [facility] 11-25-2022 14:42-0400 SaO2% (BldA) [Mass fraction] 97 % MD Eliel Hurd Work Phone: [facility] 11-25-2022 14:42-0400 Systolic blood pressure 109 mm[Hg] MD Eliel Hurd Work Phone: [facility] 09-18-2022 13:38-0500 Body temperature 98 [degF] MD Eliel Hurd Work Phone: [facility] 09-18-2022 13:38-0500 Body weight 80.4 kg MD Eliel Hurd Work Phone: [facility] 09-18-2022 13:38-0500 Diastolic blood pressure 78 mm[Hg] MD Eliel Hurd Work Phone: [facility] 09-18-2022 13:38-0500 Heart rate 77 /min MD Eliel Hurd Work Phone: [facility] 09-18-2022 13:38-0500 Respiratory rate 16 /min MD Eliel Hurd Work Phone: [facility] 09-18-2022 13:38-0500 SaO2% (BldA) [Mass fraction] 99 % MD Eliel Hurd Work Phone: [facility] 09-18-2022 13:38-0500 Systolic blood pressure 115 mm[Hg] MD Eliel Hurd Work Phone: [facility] 08-14-2022 14:08-0500 Body weight 79.6 kg MD Eliel Hurd Work Phone: [facility] 08-14-2022 14:08-0500 Diastolic blood pressure 68 mm[Hg] MD Eliel Hurd Work Phone: [facility] 08-14-2022 14:08-0500 Heart rate 72 /min MD Eliel Hurd Work Phone: [facility] 08-14-2022 14:08-0500 Respiratory rate 18 /min MD Eliel Hurd Work Phone: [facility] 08-14-2022 14:08-0500 SaO2% (BldA) [Mass fraction] 99 % MD Eliel Hurd Work Phone: [facility] 08-14-2022 14:08-0500 Systolic blood pressure 103 mm[Hg] MD Eliel Hurd Work Phone: [facility] 08-07-2022 13:06-0500 Body temperature 98 [degF] MD Eliel Hurd Work Phone: [facility] 08-06-2022 13:31-0500 Body temperature 97.8 [degF] MD Eliel Hurd Work Phone: [facility] 08-06-2022 13:31-0500 Body weight 76.1 kg MD Eliel Hurd Work Phone: [facility] 08-06-2022 13:31-0500 Diastolic blood pressure 78 mm[Hg] MD Eliel Hurd Work Phone: [facility] 08-06-2022 13:31-0500 Heart rate 60 /min MD Eliel Hurd Work Phone: [facility] 08-06-2022 13:31-0500 Respiratory rate 16 /min MD Eliel Hurd Work Phone: [facility] 08-06-2022 13:31-0500 SaO2% (BldA) [Mass fraction] 95 % MD Eliel Hurd Work Phone: [facility] 08-06-2022 13:31-0500 Systolic blood pressure 115 mm[Hg] MD Eliel Hurd Work Phone: [facility] 07-15-2022 13:06-0500 Body height 160.02 cm MD Eliel Hurd Work Phone: [facility] 07-15-2022 13:06-0500 Body temperature 97.5 [degF] MD Eliel Hurd Work Phone: [facility] 07-15-2022 13:06-0500 Body weight 75.3 kg MD Eliel Hurd Work Phone: [facility] 07-15-2022 13:06-0500 Diastolic blood pressure 61 mm[Hg] MD Eliel Hurd Work Phone: [facility] 07-15-2022 13:06-0500 Heart rate 80 /min MD Eliel Hurd Work Phone: [facility] 07-15-2022 13:06-0500 Respiratory rate 18 /min MD Eliel Hurd Work Phone: [facility] 07-15-2022 13:06-0500 SaO2% (BldA) [Mass fraction] 98 % MD Eliel Hurd Work Phone: [facility] 07-15-2022 13:06-0500 Systolic blood pressure 102 mm[Hg] MD Eliel Hurd Work Phone: [facility] 06-18-2022 10:07-0500 Body height 160.02 cm MD Eliel Hurd Work Phone: [facility] 06-18-2022 10:07-0500 Body temperature 98.4 [degF] MD Eliel Hurd Work Phone: [facility] 06-18-2022 10:07-0500 Body weight 78.9 kg MD Eliel Hurd Work Phone: [facility] 06-18-2022 10:07-0500 Diastolic blood pressure 80 mm[Hg] MD Eliel Hurd Work Phone: [facility] 06-18-2022 10:07-0500 Heart rate 84 /min MD Eliel Hurd Work Phone: [facility] 06-18-2022 10:07-0500 Respiratory rate 20 /min MD Eliel Hurd Work Phone: [facility] 06-18-2022 10:07-0500 SaO2% (BldA) [Mass fraction] 100 % MD Eliel Hurd Work Phone: [facility] 06-18-2022 10:07-0500 Systolic blood pressure 117 mm[Hg] MD Eliel Hurd Work Phone: [facility] 03-19-2022 10:00-0400 Body temperature 98.8 [degF] MD Eliel Hurd Work Phone: [facility] 03-19-2022 10:00-0400 Body weight 90.26 kg MD Eliel Hurd Work Phone: [facility] 03-19-2022 10:00-0400 Diastolic blood pressure 86 mm[Hg] MD Eliel Hurd Work Phone: [facility] 03-19-2022 10:00-0400 Heart rate 68 /min MD Eliel Hurd Work Phone: [facility] 03-19-2022 10:00-0400 Respiratory rate 18 /min MD Eliel Hurd Work Phone: [facility] 03-19-2022 10:00-0400 SaO2% (BldA) [Mass fraction] 98 % MD Eliel Hurd Work Phone: [facility] 03-19-2022 10:00-0400 Systolic blood pressure 125 mm[Hg] MD Eliel Hurd Work Phone: [facility] 02-17-2022 16:00-0400 Body temperature 97.5 [degF] Diana Cashen DO Work Phone: [facility] 02-17-2022 16:00-0400 Diastolic blood pressure 71 mm[Hg] Diana Cashen DO Work Phone: [facility] 02-17-2022 16:00-0400 Heart rate 101 /min Diana Cashen DO Work Phone: [facility] 02-17-2022 16:00-0400 Respiratory rate 23 /min Diana Cashen DO Work Phone: [facility] 02-17-2022 16:00-0400 SaO2% (BldA) [Mass fraction] 95 % Diana Cashen DO Work Phone: [facility] [employer] 02-17-2022 16:00-0400 Systolic blood pressure 134 mm[Hg] Diana Cashen DO Work Phone: [facility] [employer] 02-17-2022 07:21-0400 Body height 160 cm Diana Cashen DO Work Phone: [facility] [employer] 02-17-2022 07:21-0400 Body mass index (BMI) [Ratio] 34.05 kg/m2 Diana Cashen DO Work Phone: [facility] [employer] 02-17-2022 07:21-0400 Body weight 87.18 kg Diana Cashen DO Work Phone: [facility] [employer] 01-15-2022 15:34-0400 Body height 160 cm Fahad Russell MD Work Phone: [facility] 01-15-2022 15:34-0400 Body temperature 98.1 [degF] Fahad Russell MD Work Phone: [facility] 01-15-2022 15:34-0400 Body weight 87.59 kg Fahad Russell MD Work Phone: [facility] 01-15-2022 15:34-0400 Diastolic blood pressure 86 mm[Hg] Fahad Russell MD Work Phone: [facility] 01-15-2022 15:34-0400 Heart rate 72 /min Fahad Russell MD Work Phone: [facility] 01-15-2022 15:34-0400 Systolic blood pressure 149 mm[Hg] Fahad Russell MD Work Phone: [facility] 09-15-2021 15:45-0500 Body height 160.02 cm Franco Stokes Other [email or web address] Other 09-15-2021 15:45-0500 Body mass index (BMI) [Ratio] 34.36 kg/m2 Franco Stokes Other [email or web address] Other 09-15-2021 15:45-0500 Body weight 88 kg Franco Stokes Other [email or web address] Other 07-08-2021 14:14-0500 Body height 160.02 cm MD Eliel Hurd Work Phone: [facility] Encounters Encounter Date Encounter Type Care Provider Facility Start: 07-18-2024 End: 07-19-2024 Refill Demetra Georgek [employer] WORK[employer] Work Phone: [facility] Comment on above: Seasonal allergic rh initis, unspecified trigger Start: 06-26-2024 End: 06-26-2024 Office outpatient visit 15 minutes Demetra Sparrow [employer] WORKER Work Phone: [facility] Comment on above: Gastroesophageal ref lux disease, unspecified whether esophagitis present (Primary Dx); Other hyperlipidemia (CMS/HCC); Class 1 obesity due to excess calories without serious comorbidity with body mass index (BMI) of 30.0 to 30.9 in adult; Moderate episode of recurrent major depressive disorder (CMS/HCC); Seasonal allergic rhinitis, unspecified trigger; Anxiety and depression (CMS/HCC) Start: 06-26-2024 End: 06-26-2024 ambulatory DEMETRA GEORGEK Not Available Start: 06-26-2024 End: 06-26-2024 Bamboo flowsheet Demetra Georgek [employer]Y SERVICE WORKER Work Phone: [facility] Start: 06-26-2024 End: 06-26-2024 Bamboo flowsheet Demetra Stephentrick SUPPLY SERVICE WORKER Work Phone: [facility] Start: 06-01-2024 End: 06-01-2024 Bamboo flowsheet Hi Nguyễn DPM Work Phone: [facility] Start: 06-01-2024 End: 06-01-2024 Bamboo flowsheet Hi Nguyễn DPM Work Phone: [facility] Start: 06-01-2024 End: 06-01-2024 Office outpatient visit 15 minutes Hi Nguyễn DPM Work Phone: [facility] Comment on above: Krishna's neuroma, le ft (Primary Dx); Acquired deformity of left toe; Acquired deformity of right toe Start: 06-01-2024 End: 06-01-2024 ambulatory HI NGUYỄN Not Available Start: 05-02-2024 End: 05-02-2024 Office outpatient visit 10 minutes Jacqueline Chavez NP Work Phone: [facility] Comment on above: Left wrist pain Start: 05-02-2024 End: 05-02-2024 ambulatory JACQUELINE CHAVEZ Not Available Start: 05-02-2024 End: 05-02-2024 Bamboo flowsheet Jacqueline Chavez [employer]Y SERVICE WORKER Work Phone: [facility] Start: 05-02-2024 End: 05-02-2024 Bamboo flowsheet Jacqueline Chavez SUPPLY SERVICE WORKER Work Phone: [facility] Start: 04-17-2024 End: 04-17-2024 Patient encounter procedure Chidi Sergey DO Work Phone: [facility] Start: 04-17-2024 End: 04-17-2024 Periodic preventive med est patient 40-64yrs Chidi Sergey DO Work Phone: [facility] Comment on above: Well woman exam with routine gynecological exam Start: 04-17-2024 End: 04-17-2024 ambulatory CHIDI SERGEY Not Available Start: 04-17-2024 End: 04-17-2024 Bamboo flowsheet Chidi Sergey DO Work Phone: [facility] Start: 04-17-2024 End: 04-24-2024 Clinisync Result Encounter Chidi Sergey DO Work Phone: [facility] Unsolicited Start: 04-17-2024 End: 04-24-2024 Clinisync Result Encounter Chidi Rincon DO Work Phone: [facility] Unsolicited Start: 03-22-2024 End: 03-23-2024 Clinisync Result Encounter Generic External Data Provider [facility] Unsolicited Start: 03-22-2024 End: 03-23-2024 Clinisync Result Encounter Generic External Data Provider [facility] Unsolicited Start: 03-22-2024 End: 03-22-2024 Orders Only Demetra Sparrow [employer] SERVICE WORKER Work Phone: [facility] Comment on above: Encounter for wellne ss examination in adult (Primary Dx) Start: 03-22-2024 End: 03-22-2024 Patient encounter status Demetra Andrews [employer]Y SERVICE WORKER Work Phone: [facility] Work Phone: Start: 03-09-2024 End: 03-09-2024 ambulatory [facility] Start: 03-09-2024 End: 03-09-2024 ambulatory [facility] Start: 02-03-2024 End: 02-03-2024 ambulatory HI NGUYỄN Not Available Start: 01-18-2024 End: 01-18-2024 ambulatory HI NGUYỄN Not Available Start: 01-13-2024 End: 01-13-2024 ambulatory SHAIKH PATRIA Not Available Start: 01-10-2024 End: 01-10-2024 Patient encounter procedure MD Shaikh España Work Phone: [facility] [address] [place] Work Phone: Start: 01-10-2024 End: 01-10-2024 ambulatory MD Shaikh España Work Phone: [facility] Work Phone: Start: 01-03-2024 End: 01-03-2024 ambulatory HI NGUYỄN Not Available Start: 12-14-2023 End: 12-14-2023 ambulatory SHAIKH PATRIA Not Available Start: 11-03-2023 End: 11-03-2023 ambulatory Ismael BERMAN Facility: [facility] Start: 11-03-2023 End: 11-03-2023 Patient encounter procedure Ismael BERMAN General Surgery Nill[facility] Start: 11-01-2023 End: 11-01-2023 ambulatory SHAIKH PATRIA Not Available Start: 10-28-2023 End: 10-28-2023 ambulatory CASTILLO GONSALEZ Not Available Start: 10-11-2023 End: 10-11-2023 ambulatory CASTILLO Bejarano [employer]SH[employer] Not Available Start: 08-25-2023 Orders Only Shaikh Patria POZO Work Phone: [facility] Comment on above: Left wrist pain (Kesha heber Dx); Pain of left thumb Start: 06-23-2023 ambulatory SYDNIE ANABEL Facility : [facility] Start: 05-04-2023 ambulatory SYDNIE ANABEL Facility : [place] Start: 04-07-2023 End: 04-07-2023 ambulatory MD Eliel Hurd Work Phone: [facility] Work Phone: Start: 04-07-2023 End: 04-07-2023 Patient encounter procedure MD Eliel Hurd Work Phone: [facility] [address] Work Phone: Start: 02-15-2023 End: 02-16-2023 ambulatory Booker Lizarraga MD Facility:[facility] Start: 01-22-2023 ambulatory SYDNIE ANABEL Facility :[facility] Start: 01-11-2023 End: 01-12-2023 ambulatory Booker Lizarraga MD Facility:[facility] Start: 12-28-2022 ambulatory ANDYELITZAUS ELHAM Faci lity:[facility] Start: 12-01-2022 ambulatory BRIEN KOEHLER Facility :[facility] Start: 11-25-2022 End: 11-25-2022 ambulatory MD Eliel Hurd Work Phone: [facility] Work Phone: Start: 11-25-2022 End: 11-25-2022 Registered Recurring MD Eliel Hurd Work Phone: [facility] Work Phone: Start: 09-18-2022 End: 09-18-2022 ambulatory MD Eliel Hurd Work Phone: [facility] Work Phone: Start: 09-18-2022 End: 09-18-2022 Registered Recurring MD Eliel Hurd Work Phone: [facility] Work Phone: Start: 08-14-2022 End: 08-14-2022 ambulatory MD Eliel Hurd Work Phone: [facility] Work Phone: Start: 08-14-2022 End: 08-14-2022 Registered Recurring MD Eliel Hurd Work Phone: [facility] Work Phone: Start: 08-06-2022 End: 08-06-2022 ambulatory MD Eliel Hurd Work Phone: [facility] Work Phone: Start: 08-06-2022 End: 08-06-2022 Registered Recurring MD Eliel Hurd Work Phone: [facility] Work Phone: Start: 07-23-[address] DOCTOR STRINGER Facility :[facility] Start: 07-22-2022 End: 07-22-2022 ambulatory MD Eliel Hurd Work Phone: [facility] Work Phone: Start: 07-22-2022 End: 07-22-2022 Registered Recurring MD Eliel Hurd Work Phone: [facility] Work Phone: Start: 06-19-2022 End: 06-19-2022 Patient encounter procedure MD Eliel Hurd Work Phone: [facility] [place] Work Phone: Start: 06-18-2022 End: 06-18-2022 ambulatory MD Eliel Hurd Work Phone: [facility] Work Phone: Start: 06-18-2022 End: 06-18-2022 Registered Recurring MD Eliel Hurd Work Phone: [facility] Start: 04-16-2022 End: 04-16-2022 ambulatory MD Eliel Hurd Work Phone: [facility] Work Phone: Start: 04-16-2022 End: 04-16-2022 Registered Recurring MD Eliel Hurd Work Phone: [facility] Start: 04-16-2022 End: 04-16-2022 Discharged Recurring MD Eliel Hurd Work Phone: [facility] - [facility] Start: 04-14-2022 End: 04-15-[address] KRISTA ROBERTSON Facility:[facility] Start: 04-07-2022 End: 04-07-[address] CHIDI RINCON . Facility:[facility] Start: 04-05-2022 Encounter for genera l adult medical examination without abnormal findings DR ELIEL HURD . [facility] Start: 2022 End: 04-01-2022 Encounter for general adult medical examination without abnormal findings DR ELIEL HURD . Facility:[facility] Start: 2022 End: 04-01-[address] ELIEL HURD . Facility:[facility] Start: 03-20-2022 Registered Recurring MD Eliel rogers Work Phone: [facility] Start: 03-19-2022 End: 03-19-2022 Registered Recurring MD Eliel Hurd [facility] Start: 03-14-2022 End: 03-14-2022 ambulatory EARNEST HDZ Facility:[facility] Start: 03-12-2022 End: 03-12-2022 Registered Recurring MD Eliel Hurd Work [facility]: [facility] Start: 02-18-2022 End: 02-19-[address] [facility] Start: 02-17-2022 End: 02-20-2022 ambulatory [facility] Start: 02-17-2022 End: 02-17-2022 ambulatory [facility] Start: 02-17-2022 End: 02-19-2022 Subsequent hospital visit by physician Jackie Everett Room 1 [facility] Nuclear Medicine Comment on above: Malignant neoplasm o f right female breast, unspecified estrogen receptor status, unspecified site of breast (HCC) Start: 02-17-2022 End: 02-17-2022 Subsequent hospital visit by physician Diana Murguia DO Work Phone: [facility] Comment on above: Status post breast r econstruction (Primary Dx); Status post breast lumpectomy; Abnormal mammogram; Malignant neoplasm of right female breast, unspecified estrogen receptor status, unspecified site of breast (HCC) Start: 02-04-2022 End: 02-07-2022 ambulatory ELIEL HURD [facility] Start: 02-04-2022 End: 02-06-2022 Subsequent hospital visit by physician Lesly OchoaCortez [facility] MRI Comment on above: Malignant neoplasm o f right female breast, unspecified estrogen receptor status, unspecified site of breast (HCC) Start: 01-29-2022 Telephone encounter Xiomara tolliver MD Work Phone: [facility] Comment on above: Appointment Start: 01-15-2022 End: 01-15-2022 Patient encounter procedure Fahad Russell MD Work Phone: Plastic Surgery Comment on above: History of breast ca ncer (Primary Dx); Breast asymmetry following reconstructive surgery Start: 01-15-2022 Telephone encounter Xiomara tolliver MD Work Phone: [facility] Comment on above: Appointment Start: 09-15-2021 End: 09-15-2021 ambulatory Franco Stokes Other [facility] [employer] Other Start: 09-15-2021 Office outpatient ne w 30 minutes Franco Stokes [facility] Neurosurgery Start: 05-27-1998 End: 05-27-1998 Patient encounter procedure Conversion José Meyer [facility] Start: 05-27-1998 Results Only Conversion José Meyer [facility] Procedures Date Procedure Procedure Detail Performing Clinician Start: 05-02-2024 Radex wrist 2 views Jacqueline Chavez [employer]Y SERVICE WORKER Work Phone: Start: 04-17-2024 IGP,APTIMA HPV,AGE GDLN Chidi Sergey DO Work Phone: Start: 04-17-2024 Microscopic observation [Identifier] in Cervix by Cyto stain Jacqueline Chavez NP Work Phone: Start: 03-22-2024 [facility] CORTISOL Generic External Armando a Provider Start: 06-19-2022 MRI of cervical spine without [...] MD Work Phone: Start: 05-27-1998 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 Conversion Fransiscoaker Ap Biopsy of breast Ismael MCGOWAN L Cholecystectomy Ismael MCGOWANL Decompression of med misael nerve Ismael MCGOWANL Endometrial ablation Ismael MCGOWANL Fasciotomy of foot Ismael Jose GILES Hemorrhoidectomy Ismael MCGOWAN L History of mastectomy Status pos t breast lumpectomy Diana P Shantal DO Work Phone: History of surgical procedure on cervical spine Ismael MCGOWANL Insertion of implant able venous access port Ismael MCGOWANReyna Ligation of fallopian tube M lisa MCGOWANL Loop electrosurgical excision procedure Ismael MCGOWANL Lumpectomy of right breast M lisa MCGOWANL Mammoplasty Ismael MCGOWANReyna Plan of Treatment Date Care Activity Detail Author Start: 04-27-2028 Screening for malignant neoplasm of cervix [facility] Start: 04-17-2027 Screening for malignant neoplasm of cervix Pap Smear [facility] Start: 04-07-2027 Screening for malignant neoplasm of cervix Pap Smear [facility] Start: 04-18-2025 End: 04-18-2025 Patient encounter procedure 04/18/2025 3:00 PM EDT Office Visit [facility] [address] [place] [address] Chidi Rincon DO [address] [place] [address] [facility] Start: 09-27-2024 End: 09-27-2024 Patient encounter procedure 09/27/2024 2:30 PM EDT Office Visit [facility] [address] [place] [phone] Demetra Sparrow, SAVITA [address] [place] [phone] [facility] Start: 06-26-2024 End: 06-26-2024 Patient encounter procedure [facility] Comment on above: Arrived Start: 06-22-2024 End: 06-22-2024 Patient encounter procedure 06/22/2024 2:20 PM EST Office Visit [facility] [address] [facility] [address] [place] [phone] Hi Nguyễn DPM [address] [facility] [address] [place] [address] [facility] Start: 05-30-2024 End: 05-30-2024 Patient encounter procedure 05/30/2024 2:15 PM EST Office Visit [facility] [address] [facility] [address] [place] [address] Jacqueline Chavez, SUPPLY SERVICE WORKER [address] [place] [address] [facility] Start: 05-02-2024 End: 05-02-2024 Patient encounter procedure 05/02/2024 2:30 PM EDT Office Visit [facility] [address] [facility] [address] [place] [address] Jacqueline Chavez, SUPPLY SERVICE WORKER [address] [place] [address] Arrived [facility] Comment on above: Arrived Start: 04-17-2024 End: 04-17-2024 Patient encounter procedure [facility] Comment on above: Arrived Start: 03-22-2024 End: 03-22-2025 CBC W Auto Differential panel - Blood CBC and differential Lab Routine Encounter for wellness examination in adult Expected: 03/22/2024 (Approximate), Expires: 03/22/2025 [facility] Comment on above: Expected: 03/22/2024 (Approximate), Expi res: 03/22/2025 Start: 03-22-2024 End: 03-22-2025 Comprehensive metabolic 2000 panel - Serum or Plasma Comprehensive metabolic panel Lab Routine Encounter for wellness examination in adult Expected: 03/22/2024 (Approximate), Expires: 03/22/2025 [facility] Comment on above: Expected: 03/22/2024 (Approximate), Expi res: 03/22/2025 Start: 03-22-2024 End: 03-22-2025 Hemoglobin A1c/Hemoglobin.total in Blood Hemoglobin A1c Lab Routine Encounter for wellness examination in adult Expected: 03/22/2024 (Approximate), Expires: 03/22/2025 [facility] Comment on above: Expected: 03/22/2024 (Approximate), Expi res: 03/22/2025 Start: 03-22-2024 End: 03-22-2025 Lipid 1996 panel - Serum or Plasma Lipid panel Lab Routine Encounter for wellness examination in adult Expected: 03/22/2024 (Approximate), Expires: 03/22/2025 [facility] Comment on above: Expected: 03/22/2024 (Approximate), Expi res: 03/22/2025 Start: 03-22-2024 End: 03-22-2025 TSH W/REFLEX TO FT4 TSH W/REFLEX TO FT4 Lab Routine Encounter for wellness examination in adult Expected: 03/22/2024 (Approximate), Expires: 03/22/2025 [facility] Work Phone: Comment on above: Expected: 03/22/2024 (Approximate), Expi res: 03/22/2025 Start: 03-19-2024 Influenza vaccination Influenza Vaccine (#1) [facility] Start: 01-10-2024 MR Breast - bilateral [facility] Start: 01-10-2024 MRI of bilateral breasts with contrast MR breast BI wo/w con CAD [facility] Start: 08-25-2023 End: 08-25-2024 XR Hand - left 3 Views XR hand 3+ views left Imaging Routine Left wrist pain Pain of left thumb Expected: 08/25/2023, Expires: 08/25/2024 [facility] Comment on above: Expected: 08/25/2023, Expires: Start: 08-25-2023 End: 08-25-2024 XR Wrist - left 3 Views XR wrist 3+ views left Imaging Routine Left wrist pain Pain of left thumb Expected: 08/25/2023, Expires: 08/25/2024 [facility] Work Phone: Comment on above: Expected: 08/25/2023, Expires: Start: 04-07-2023 [facility] Start: 03-19-2023 Influenza vaccination Influenza Vaccine (#1) [facility] Start: 09-04-2022 End: 09-04-2022 [facility] Start: 09-03-2022 [facility] Start: 08-07-2022 [facility] Start: 08-05-2022 [facility] Start: 07-22-2022 Adrenocorticotropic hormone measurement [facility] Start: 07-22-2022 [facility] Start: 07-09-2022 [facility] Start: 06-19-2022 [facility] Start: 06-18-2022 [facility] Start: 06-17-2022 Adrenocorticotropic hormone measurement [facility] Start: 05-28-2022 [facility] Start: 04-22-2022 Mammography MAMMOGRAM [facility] Start: 03-20-2022 Registered Recurring Registered Recurring [facility] Therapy - O/P Start: 03-19-2022 Influenza vaccination [facility] Start: 03-04-2022 End: 03-04-2022 Patient encounter procedure 03/04/2022 Office Visit [place] [address] [facility] [address] [place] [address] [facility] Start: 03-04-2022 End: 03-04-2022 Patient encounter procedure 03/04/2022 Office Visit General Surgery Diana Murguia, DO [address] [facility] [address] [place] [address] [facility] Start: 02-17-2022 End: 02-17-2022 Mast modf rad w/ax lymph nod w/wo pect/gonzalo min BREAST MASTECTOMY RECONSTRUCTION Malignant neoplasm of right female breast, unspecified estrogen receptor status, unspecified site of breast (HCC) 02/17/2022 10:22 AM [facility] Start: 02-17-2022 End: 02-17-2022 Mastectomy partial BREAST LUMPECTOMY PARTIAL MASTECTOMY Malignant neoplasm of right female breast, unspecified estrogen receptor status, unspecified site of breast (HCC) 02/17/2022 10:22 AM [facility] Start: 02-09-2022 End: 02-09-2022 Patient encounter procedure 02/09/2022 Office Visit General Surgery Diana Murguia DO [address] [facility] [address] [place] [address] [facility] Start: 12-17-2021 [facility] Start: 11-26-2021 [facility] Start: 11-05-2021 [facility] Start: 10-15-2021 [facility] Start: 09-30-2021 [facility] Start: 09-24-2021 [facility] Start: 09-24-2021 [facility] Start: 09-17-2021 End: 09-17-2021 [facility] Start: 09-16-2021 End: 09-16-2021 [facility] Start: 09-11-2021 End: 09-11-2021 [facility] Start: 09-04-2021 [facility] Start: 08-27-2021 [facility] Start: 08-20-2021 [facility] Start: 08-14-2021 [facility] Start: 08-13-2021 End: 08-14-2021 [facility] Start: 07-30-2021 [facility] Start: 07-28-2021 [facility] Start: 07-21-2021 End: 07-22-2021 [facility] Start: 01-18-2021 COVID-19 VACCINE (3 - Booster for Moderna series) COVID-19 VACCINE (3 - Booster for Moderna series) [facility] Start: 2017 Lipid panel Lipids [facility] [employer] Start: 2012 Diabetes screen [facility] Start: 2007 HPV TESTING HPV TESTING [facility] Start: 2007 Screening for malignant neoplasm of cervix [facility] [employer] Start: 1998 PAP TESTING PAP TESTING [facility] Start: 1998 Screening for malignant neoplasm of cervix Pap smear [facility] [employer] Start: 1996 DTaP/Tdap/Td vaccine (1 - Tdap) DTaP/Tdap/Td vaccine (1 - Tdap) [facility] [employer] Start: 1996 Urine microalbumin profile DTAP,TDAP,TD (1 - Tdap) [facility] Start: 1995 HEPATITIS C SCREENING HEPATITIS C SCREENING [facility] Start: 1995 Hepatitis C screening Hepatitis C screen [facility] Start: 1995 HIV SCREENING HIV SCREENING [facility] Start: 1992 HIV screening HIV screen [facility] [employer] Start: 1989 Adult depression screening assessment [facility] Start: 1989 Depression Screen [facility] Screen [facility] Start: 1977 COVID-19 Vaccine (#1) COVID-19 Vaccine (#1) [facility] [employer] Start: 1977 Screening for malignant neoplasm of colon [facility] Adrenocorticotropic hormone measurement [facility] Work Phone: Adrenocorticotropic hormone measurement [facility] Adrenocorticotropic hormone measurement [facility] Adrenocorticotropic hormone measurement [facility] Adrenocorticotropic hormone measurement [facility] Adrenocorticotropic hormone measurement [facility] Basophils [#/volume] in Blood by Automated count [facility] Basophils/100 leukoc ytes in Blood by Automated count [facility] Comprehensive metabo lic 1999 panel - Serum or Plasma [facility] Work Phone: Comprehensive metabo lic 1999 panel - Serum or Plasma [facility] Comprehensive metabo lic 1999 panel - Serum or Plasma [facility] Comprehensive metabo lic 1999 panel - Serum or Plasma [facility] Comprehensive metabo lic 1999 panel - Serum or Plasma [facility] Comprehensive metabo lic 1999 panel - Serum or Plasma [facility] Comprehensive metabo lic 1999 panel - Serum or Plasma [facility] Comprehensive metabo lic 1999 panel - Serum or Plasma [facility] Comprehensive metabo lic 1999 panel - Serum or Plasma [facility] Cortisol [Mass/volum e] in Serum or Plasma [facility] Work Phone: Cortisol [Mass/volum e] in Serum or Plasma [facility] Cortisol [Mass/volum e] in Serum or Plasma [facility] Cortisol [Mass/volum e] in Serum or Plasma [facility] Cortisol [Mass/volum e] in Serum or Plasma [facility] Cortisol [Mass/volum e] in Serum or Plasma [facility] CT Head WO and W con trast IV [facility] Work Phone: CT Head WO and W con trast IV [facility] Eosinophils [#/volum e] in Blood [facility] Eosinophils/100 leuk ocytes in Blood by Automated count [facility] Erythrocyte distribu tion width [Ratio] by Automated count [facility] Erythrocytes [#/volu me] in Blood [facility] Hematocrit [Volume Fraction] of Blood [facility] Hemoglobin [Mass/vol ume] in Blood [facility] End: 02-17-2022 INITIATE PACU OXYGEN THERAPY PROTOCOL Initiate PACU Oxygen Therapy Protocol Respiratory Care Routine Continuous until discontinued starting 02/17/2022 [employer] Phone: Comment on above: Continuous until discontinued starting 0 02/17/2022 Leukocytes [#/volume ] corrected for nucleated erythrocytes in Blood by Automated coun [facility] Leukocytes [#/volume ] in Blood [facility] Lymphocytes [#/volum e] in Blood by Automated count [facility] Lymphocytes/100 leuk ocytes in Blood by Automated count [facility] End: 02-17-2022 WILLIE NEEDLE LOCALIZATION RIGHT WILLIE NEEDLE LOCALIZATION RIGHT Imaging Routine Abnormal mammogram Once for 1 Occurrences starting 02/17/2022 until 02/17/2022 [employer] Phone: Comment on above: Once for 1 Occurrences starting 02/18/20 until 02/17/2022 MCH [Entitic mass] b y Automated count [facility] MCHC [Mass/volume] b y Automated count [facility] MCV [Entitic volume] by Automated count [facility] MG Breast - bilatera l Diagnostic [facility] Monocytes [#/volume] in Blood by Automated count [facility] Monocytes/100 leukoc ytes in Blood by Automated count [facility] Neutrophils [#/volum e] in Blood by Automated count [facility] Neutrophils/100 leuk ocytes in Blood by Automated count [facility] Nucleated erythrocyt es [Presence] in Blood by Automated count [facility] Oxygen therapy [[facility] Data Set] Initiate Oxygen Therapy Protocol Respiratory Care Routine Daily until discontinued starting 02/17/2022 [employer] Phone: Comment on above: Daily until discontinued starting 2021 Platelet mean volume [Entitic volume] in Blood by Automated count [facility] Platelets [#/volume] in Blood [facility] Surgical Pathology Surgical Path ology Lab Routine Malignant neoplasm of right female breast, unspecified estrogen receptor status, unspecified site of breast (HCC) Release Upon Ordering for 1 Occurrences starting 02/17/2022 [employer] Phone: Comment on above: Release Upon Ordering for 1 Occurrences starting 02/17/2022 End: 02-17-2022 SURGICAL PATHOLOGY REPORT SURGICAL PATHOLOGY REPORT Lab Routine Once for 1 Occurrences starting 02/17/2022 until 02/17/2022 [facility] Work Phone: Comment on above: Once for 1 Occurrences starting 02/18/20 until 02/17/2022 THIN PREP TIS PAP AN D HR HPV DNA THIN PREP TIS PAP AND HR HPV DNA Pathology and Cytology Routine Well woman exam with routine gynecological exam Ordered: 04/17/2024 [facility] Work Phone: Comment on above: Ordered: 04/17/2024 Thyrotropin [Units/v olume] in Serum or Plasma [facility] Work Phone: Thyrotropin [Units/v olume] in Serum or Plasma [facility] Thyrotropin [Units/v olume] in Serum or Plasma [facility] Thyrotropin [Units/v olume] in Serum or Plasma [facility] Thyrotropin [Units/v olume] in Serum or Plasma [facility] Thyrotropin [Units/v olume] in Serum or Plasma [facility] Thyroxine (T4) free [Mass/volume] in Serum or Plasma [facility] Work Phone: Thyroxine (T4) free [Mass/volume] in Serum or Plasma [facility] Thyroxine (T4) free [Mass/volume] in Serum or Plasma [facility] Thyroxine (T4) free [Mass/volume] in Serum or Plasma [facility] Thyroxine (T4) free [Mass/volume] in Serum or Plasma [facility] Thyroxine (T4) free [Mass/volume] in Serum or [facility] Immunizations Immunization Date Immunization Notes Care Provider [facility] 08-21-2020 Moderna SARS-CoV-2 Vaccination Shaikh Patria POZO Work Phone: [facility] 07-25-2020 Moderna SARS-CoV-2 Vaccination Shaikh Patria POZO Work Phone: [facility] 04-26-2018 influenza, injectabl e, quadrivalent, preservative free Shaikh Patria POZO Work Phone: [facility] 04-26-2018 influenza virus vacc ine, unspecified formulation Shaikh Patria POZO Work Phone: [facility] Healthcare Payers Date Payer Category Payer Self-pay [id number] 2022 [facility] er [id number] 2022 Unknown 2022 Unknown [id number] 2021 Unknown MMO MMO [employer] [id number] 2021-Present [phone] [address] [place] [address] PPO [id number]. [id number] 2019 Unknown [id number] 2..840.1.907740.19 1977 Unknown [id number] 2..840.1.189775.3.579.2. 177 1977 Unknown [id number] 2.840.1.014968.3.579.2. 177 1977 Unknown [id number] 2.16.840.1.408930.3.579.2. 175 1977 Unknown [id number] 2.16.840.1.399998.3.579.2. 175 1977 Unknown [id number] 2.16.840.1.417725.3.579.2. 593 1977 Unknown [id number] 2.16.840.1.319545.3.579.2. 593 1977 Unknown [id number] 2.16.840.1.489166.3.579.2. 593 1977 Unknown [id number] 2.16.840.1.310808.3.579.2. 593 1977 Unknown [id number] 2.16.840.1.640696.3.579.2. 593 1977 Unknown [id number] 2.16.840.1.542687.3.579.2. 593 1977 Unknown [id number] 2.16.840.1.633749.3.579.2. 593 1977 Unknown [id number] 2.16.840.1.541674.3.579.2. 593 1977 Unknown [id number] 2.16.840.1.328001.3.579.2. 196 1977 Unknown [id number] 2.16.840.1.313619.3.579.2. 196 1977 Unknown [id number] 2.16.840.1.848697.3.579.2. 727 1977 Unknown [id number] 2.16.840.1.458140.3.579.2. 727 1977 Unknown [id number] 2.16.840.1.533348.3.579.2. 1259 1977 Unknown [id number] 2.16.840.1.527112.3.579.2. 9 1977 Unknown [id number] 2.16.840.1.591963.3.579.2. 1258 1977 Unknown [id number] 2.16.840.1.303087.3.579.2. 1258 1977 Unknown [id number] 2.16.840.1.950265.3.579.2. 1258 1977 Unknown [id number] 2.16.840.1.274023.3.579.2. 1258 1977 Unknown [id number] 2..840.1.388097.3.579.2. 1258 1977 Unknown [id number] 2.840.1.960486.3.579.2. 1258 1977 Unknown [id number] 2.0.1.100298.3.579.2. 1258 1977 Unknown [id number] 2.0.1.908899.3.579.2. 1258 1977 Unknown [id number] 2.0.1.579447.3.579.2. 1258 1977 Unknown [id number] 2.16840.1.711911.3.579.2. 1258 1977 Unknown [id number] 2.840.1.711142.3.579.2. 1258 1977 Unknown [id number] 2.840.1.095348.3.579.2. 1258 Unknown [id number] Unknown HCAP/HFA/FAP Active [id number] Unknown [id number] 2840.1.743102.3.579.2. 531 Social History Date Type Detail Facility Tobacco smoking status [facility] Unknown if ever smoked [facility] Start: 1975 Sex Assigned At Not on file [facility] Start: 04-12-2023 End: 01-13-2024 Sex Assigned At [facility] Start: 01-15-2022 End: 11-25-2022 Tobacco smoking status NHIS Ex-smoker [facility] Start: 01-15-2022 End: 11-01-2023 Tobacco use and exposure Smokeless tobacco non-user [facility] Start: 1975 Sex Assigned At Female [facility] Start: 01-13-2022 End: 02-17-2022 Exposure to SARS-CoV-2 (event) Not sure [facility] History of tobacco use Current smoker [employer] Phone: Start: 02-04-2022 Tobacco use and exposure Former smokeless tobacco user [employer] Phone: Start: 02-17-2022 End: 06-26-2024 Alcohol intake Lifetime non-drinker (finding) [employer] Phone: Start: 02-01-2023 End: 11-01-2023 Tobacco smoking status OKIS Never smoked tobacco [facility] Start: 04-12-2023 End: 01-13-2024 History of [address] function [facility] Start: 03-01-2023 Alcohol Comment caffeine: 1-2 cups per day coffee [facility] Tobacco smoking status Never General Surgery Kenna NEGATED: Highlighted rowStart: NINF History of tobacco use Passive smoker [facility] Functional Status Date Assessment Result Facility 11-03-2023 Functional Status N/A General [facility] Clinical Notes 07-08-2021 to 06-26-2024 Demetra Sparrow, SAVITA - 06/26/2024 4:29 PM Denis Sparrow, SAVITA - 06/26/2024 2:46 PM Denis Sparrow, SAVITA - 06/26/2024 2:30 PM Echo Nguyễn DPM - 06/01/2024 10:20 AM EST Note Date & Type Note Facility 06-26-2024 History of Present illness Narrative Associated Problem(s): Anxiety and depression (CMS/HCC) Reports she has increased anxiety and stressors at home. 28 year old daughter moved in with her, along with her 2 school aged children. Pt reports her daughter is a recovered drug addict and an active alcoholic. She states her daughter often does not wake up to get her children ready for school, fee them, or do homework with them. She states she has taken on the role of being a mother rather than being their grandmother. She is worried about her grandchildren's future and wellbeing. 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 Pt reports she had stopped taking her wellbutrin and celexa for a few weeks because she felt angry a lot, but now does not believe it was the medication causing her anger, but rather her home life stressors. She states she recently utilized the workplace EPA program and has started attending therapy weekly. Is unsure if it is helping at this time. Denies SI/HI. Encouraged patient to continue taking Celexa and Wellbutrin for her anxiety and depression and to continue with therapy. Associated Problem(s): Class 1 obesity due to excess calories without serious comorbidity with body mass index (BMI) of 30.0 to 30.9 in adult Discussed with patient their BMI (actual, verses recommended). We have also discussed lifestyle modifications: attempts to perform physical activity as chronic conditions allow, also to monitor dietary intake: increasing protein/fruits/veggies and lowering carb intake (unless contraindicated). Limit sodas, juices, and sugary drinks. Also discussed oral medications that can be utilized for weight loss, as well as surgical options for weight loss. Images from the original note were not included. Subjective Patient ID: Tenisha Hanccok is a 49 y.o. female who presents for Follow-up. HPI Reports she has increased anxiety and stressors at home. 28 year old daughter moved in with her, along with her 2 school aged children. Pt reports her daughter is a recovered drug addict and an active alcoholic. She states her daughter often does not wake up to get her children ready for school, fee them, or do homework with them. She states she has taken on the role of being a mother rather than being their grandmother. She is worried about her grandchildren's future and wellbeing. 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 Pt reports she had stopped taking her wellbutrin and celexa for a few weeks because she felt angry a lot, but now does not believe it was the medication causing her anger, but rather her home life stressors. She states she recently utilized the workplace EPA program and has started attending therapy weekly. Is unsure if it is helping at this time. Denies SI/HI. Encouraged patient to continue taking Celexa and Wellbutrin for her anxiety and depression. Review of Systems Constitutional: Negative for activity change, appetite change, chills, diaphoresis, fatigue, fever and unexpected weight change. HENT: Positive for rhinorrhea. Negative for congestion, ear pain, sinus pressure, sinus pain, sneezing, sore throat, trouble swallowing and voice change. Eyes: Negative for visual disturbance. Respiratory: Negative for cough, chest tightness, shortness of breath and wheezing. Cardiovascular: Negative for chest pain, palpitations and leg swelling. Gastrointestinal: Negative for abdominal distention, abdominal pain, blood in stool, constipation, diarrhea and vomiting. Genitourinary: Negative for decreased urine volume, dysuria, flank pain, frequency, hematuria and urgency. Musculoskeletal: Negative for arthralgias, gait problem, joint swelling and myalgias. Skin: Negative for rash. Neurological: Negative for dizziness, tremors, syncope, weakness, light-headedness and headaches. Psychiatric/Behavioral: Negative for decreased concentration and suicidal ideas. The patient is not nervous/anxious. Hematological: Does not bruise/bleed easily. Endocrine: Negative for cold intolerance, heat intolerance, polydipsia, polyphagia and polyuria. Objective Physical Exam Vitals reviewed. Constitutional: Appearance: Normal appearance. HENT: Head: Normocephalic and atraumatic. Right Ear: Tympanic membrane normal. Left Ear: Tympanic membrane normal. Nose: Nose normal. Mouth/Throat: Mouth: Mucous membranes are moist. Pharynx: Oropharynx is clear. Eyes: Pupils: Pupils are equal, round, and reactive to light. Cardiovascular: Rate and Rhythm: Normal rate and regular rhythm. Pulses: Normal pulses. Heart sounds: Normal heart sounds. Pulmonary: Effort: Pulmonary effort is normal. Breath sounds: Normal breath sounds. Abdominal: General: Abdomen is flat. Bowel sounds are normal. Palpations: Abdomen is soft. Musculoskeletal: General: Normal range of motion. Cervical back: Normal range of motion. Skin: General: Skin is warm and dry. Capillary Refill: Capillary refill takes less than 2 seconds. Neurological: General: No focal deficit present. Mental Status: She is alert and oriented to person, place, and time. Psychiatric: Mood and Affect: Mood normal. Behavior: Behavior normal. Assessment/Plan Problem List Items Addressed This Visit Moderate episode of recurrent major depressive disorder (CMS/HCC) Relevant Medications buPROPion XL (Wellbutrin XL) 150 MG 24 hr tablet citalopram (CeleXA) 20 MG tablet Other hyperlipidemia (CMS/HCC) Relevant Medications rosuvastatin (Crestor) 20 MG tablet cholecalciferol (Natural Vitamin D-3) 5,000 Units tablet Anxiety and depression (CMS/HCC) Reports she has increased anxiety and stressors at home. 28 year old daughter moved in with her, along with her 2 school aged children. Pt reports her daughter is a recovered drug addict and an active alcoholic. She states her daughter often does not wake up to get her children ready for school, fee them, or do homework with them. She states she has taken on the role of being a mother rather than being their grandmother. She is worried about her grandchildren's future and wellbeing. 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 Pt reports she had stopped taking her wellbutrin and celexa for a few weeks because she felt angry a lot, but now does not believe it was the medication causing her anger, but rather her home life stressors. She states she recently utilized the workplace EPA program and has started attending therapy weekly. Is unsure if it is helping at this time. Denies SI/HI. Encouraged patient to continue taking Celexa and Wellbutrin for her anxiety and depression and to continue with therapy. GERD (gastroesophageal reflux disease) - Primary Relevant Medications pantoprazole (ProtoNix) 40 MG EC tablet Class 1 obesity due to excess calories without serious comorbidity with body mass index (BMI) of 30.0 to 30.9 in adult Discussed with patient their BMI (actual, verses recommended). We have also discussed lifestyle modifications: attempts to perform physical activity as chronic conditions allow, also to monitor dietary intake: increasing protein/fruits/veggies and lowering carb intake (unless contraindicated). Limit sodas, juices, and sugary drinks. Also discussed oral medications that can be utilized for weight loss, as well as surgical options for weight loss. Other Visit Diagnoses Seasonal allergic rhinitis, unspecified trigger Relevant Medications fluticasone (Flonase) 50 MCG/ACT nasal spray documented in this encounter [facility] 06-01-2024 History of Present illness Narrative Patient: Tenisha Chambers Christinekeith : 1975 PCP: Shaikh Patria MD SUBJECTIVE This is a 49 y.o. female that presents today for follow-up of left Krishna's neuroma with 2 steroid injections in 2022 and 1 steroid injection this year with positive improvement Currently rates pain a 0-1/10 and has had a cummulative total of 3 injections. Patient Has history of left 5th digital pain irritated by shoe gear Allergies: No Known Allergies Past Medical History: Past Medical History: Diagnosis Date Cameron's disease (CMS/HCC) Arthritis Breast cancer screening by mammogram 05/26/2021 RIGHT BX DUE TO MASS. CALCIFICATION SLIGHTNESS Breast lump Cancer (CMS/HCC) right breast Chicken pox Family history of cancer Genetic testing negative History of breast cancer History of breast problem Right Breast ER/NV/Her3 neg History of right breast cancer Hypercholesterolemia (CMS/HCC) Migraine headache (CMS/HCC) Negative genetic testing for ARVC Pap smear for cervical cancer screening 04/07/2022 NEG x1 Right carpal tunnel syndrome Medications: Current Outpatient Medications: levothyroxine (Synthroid, Levoxyl) 50 MCG tablet, TAKE 1 TABLET BY MOUTH EVERY DAY IN THE MORNING ON EMPTY STOMACH, Disp: 90 tablet, Rfl: 1 baclofen (Lioresal) 10 MG tablet, Take by mouth 3 (three) times a day., Disp: , Rfl: buPROPion XL (Wellbutrin XL) 150 MG 24 hr tablet, Take 1 tablet (150 mg) by mouth Daily Do not crush, chew, or split., Disp: 90 tablet, Rfl: 1 citalopram (CeleXA) 20 MG tablet, Take 1 tablet (20 mg) by mouth Daily, Disp: 90 tablet, Rfl: 1 hydrocortisone (Cortef) 10 MG tablet, Take by mouth Daily., Disp: , Rfl: ibuprofen 800 MG tablet, TAKE 1 TABLET BY MOUTH EVERY 6-8 HOURS NEEDED FOR PAIN, Disp: , Rfl: Natural Vitamin D-3 125 MCG (5000 UT) tablet, Take 5,000 Units by mouth Daily, Disp: , Rfl: pantoprazole (ProtoNix) 40 MG EC tablet, Take 40 mg by mouth in the morning. Take before meals. Do not crush, chew, or split. ., Disp: , Rfl: phentermine (Adipex-P) 37.5 MG tablet, Take 1 tablet (37.5 mg) by mouth in the morning. 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 [employer] Tobacco Use Smoking status: Never Passive exposure: Never Smokeless tobacco: Never Vaping Use Vaping status: Never Used Substance and Sexual Activity Alcohol use: Never Comment: caffeine: 1-2 cups per day coffee Drug use: Never Sexual activity: Defer Partners: Decline to Answer Other Topics Concern Not on file Social History Narrative Not on file Social Drivers of Health Financial Resource Strain: Not on file Food Insecurity: Not on file Transportation Needs: Not on file Physical Activity: Not on file Stress: Not on file Social Connections: Not on file Intimate Partner Violence: Unknown (09/09/2023) [facility] [place] Safety & Environment Fear of Current or Ex-Partner: Not on file Emotionally Abused: Not on file Physically Abused: Not on file Sexually Abused: Not on file Physically or Sexually Abused: Not on file Housing Stability: Not on file ROS: Gastrointestinal: denies abdominal pain, ulcers, or changes in appetite or bowel habits Musculoskeletal: positive hx of arthritis, loss of strength, with positive history of back pain. Positive history degenerative disc disease and had ablation by pain management OBJECTIVE LE EXAM: DERM: Positive hair growth to b/l feet with good skin turgor noted. Negative openings in skin. Slight edema to the left 5th digit PIPJ region VASC: Palpable pedal pulsed b/l with warm to cool tibia to toes b/l NEURO: Gross sensation intact digits 1-10 and b/l feet ORTHO: +5/5 DF/PF/IN/EV right, +5/5 DF/PF/IN/EV left. 20 degrees inversion and 10 degrees eversion STJ b/l. Ankle ROM less than 10 degrees b/l. Negative pain on palpation to left 3rd intermetatarsal space with positive Tono sign Positive palpation left 5th digit PIPJ region ASSESSMENT 1. Krishna's neuroma, left 2. Acquired deformity of left toe 3. Acquired deformity of right toe PLAN Patient continue with anti-inflammatories and ibuprofen and discussed wider shoe gear as well for neuralgia type pain to her feet Pt was fitted for custom made orthotics today. Orthotics were deemed to fit appropriately and patient was informed of proper break in of devices. Patient education on break in of device. ABN signed and in chart if warranted. Hi Nguyễn DPM documented in this encounter [facility] 05-02-2024 History of Present illness Narrative Images from the original note were not included. Chief Complaint Patient presents with Left Wrist - Pain HISTORY OF PRESENT ILLNESS: Tenisha Hancock is an 49 y.o. @ female. (EST PT W/KIERAN) (L) WRIST DISCOMFORT. LAST TX 10/28/23 WITH KIERAN, REFERRED TO DR RIOS. HAS NOT SEEN ANYONE ELSE. XRAY TODAY EPIC 05/02/24 XRAYS, 08/27/23 @ [facility] (PUSHED THROUGH PACS) MRI 10/22/23 @ [facility] (PUSHED THROUGH PACS) HYDROCORTISONE 10MG DAILY S/P VELCRO THUMB SPICA 10/11/23 PAIN ANTERIOR WRIST. DENIES RADIATION. TAKING IBU PRN. TRIED ICE, BIOFREEZE AND TIGER BALM. DROPPING THINGS. DIFFICULTY GRIPPING. ADMITS N/T IN THUMB, IF, MF AND RF, TIPS OF FINGERS. LIMITED ROM. UNABLE TO PUT MUCH PRESSURE ON IT. INTERMITTENT SWELLING. WAKES PT AT HS. 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 citalopram (CELEXA) 20 mg, Oral, Daily hydrocortisone (Cortef) 10 MG tablet Oral, Daily ibuprofen 800 MG tablet TAKE 1 TABLET BY MOUTH EVERY 6-8 HOURS NEEDED FOR PAIN levothyroxine (Synthroid, Levoxyl) 50 MCG tablet TAKE 1 TABLET BY MOUTH EVERY DAY IN THE MORNING ON EMPTY STOMACH Natural Vitamin D-3 5,000 Units, Oral, Daily pantoprazole (PROTONIX) 40 mg, Oral, Daily before breakfast, Do not crush, chew, or split. phentermine (ADIPEX-P) 37.5 mg, Oral, Daily before breakfast rosuvastatin (CRESTOR) 20 mg, Oral, Daily REVIEW OF SYSTEMS: General: Denies fever, fatigue or weight loss Skin: Denies rash, sores or skin changes Eyes: Denies visual disturbance or pain GI: Denies indigestion or abdominal pain Neuro: Denies numbness or tingling, denies new onset paralysis Musculoskeletal: ( see note) PHYSICAL EXAM: Left Hand Exam Tenderness The patient is experiencing tenderness in the palmar area (pain over ulnocarpal joint). Range of Motion Wrist Extension: normal Flexion: normal Other Scars: present (previous CTR scar) Sensation: decreased Pulse: present Comments: Pain with tinnels, states she will get numbness in index, middle and ring finger. Exacerbated with Phalen's. No pain over TFCC with ulnar deviation Vitals: There is no height or weight on file to calculate BMI. IMAGING: XR wrist 1 or 2 views left Imaging Result: 05/02/2024 AP and LAT of left wrist demonstrate no acute fracture or dislocation. Joint spaces preserved. Impression: no acute findings of left wrist. Jacqueline Chavez SCREW CUTTER-UNIVERSITY REGISTRAR ASSESSMENT: ICD-10-CM 1. Left wrist pain M25.532 XR wrist 1 or 2 views left Procedures PLAN: I reviewed xray findings with the patient and discussed treatment options, answered questions. I recommend patient try wrist immobilizer at night as she uses wrist heavily at work. Follow up in 1 month. If still painful consider EMG. I again recommended patient see hand specialist for tear of APL of left thumb. Questions answered in laymen terms at the bedside. The diagnosis, home exercise plan and any ongoing restrictions/ recommendations reviewed. If unable to be reached in office, I recommend evaluation at nearest Emergency Room if any symptoms worsened or new symptoms develop for requiring urgent evaluation. Jacqueline Chavez APRN-UNIVERSITY REGISTRAR documented in this encounter [facility] 04-17-2024 History of Present illness Narrative Reason for Appointment: Patient ID: Tenisha Hancock is a 49 y.o. female who presents for Gynecologic Exam Patient presents today for Annual Exam. MEDICATIONS Current Outpatient Medications Medication Instructions baclofen (Lioresal) 10 MG tablet Oral, 3 times daily buPROPion XL (WELLBUTRIN XL) 150 mg, Oral, Daily, Do not crush, chew, or split. citalopram (CELEXA) 20 mg, Oral, Daily hydrocortisone (Cortef) 10 MG tablet Oral, Daily ibuprofen 800 MG tablet TAKE 1 TABLET BY MOUTH EVERY 6-8 HOURS NEEDED FOR PAIN levothyroxine (Synthroid, Levoxyl) 50 MCG tablet Oral, Daily before breakfast Natural Vitamin D-3 5,000 Units, Oral, Daily pantoprazole (PROTONIX) 40 mg, Oral, Daily before breakfast, Do not crush, chew, or split. phentermine (ADIPEX-P) 37.5 mg, Oral, Daily before breakfast rosuvastatin (CRESTOR) 20 mg, Oral, Daily ALLERGIES No Known Allergies PROBLEMS Active Ambulatory Problems Diagnosis Date Noted Arthritis of left hip 11/30/2022 Breast cancer (CMS/HCC) 11/30/2022 Drug-induced adrenocortical insufficiency (CMS/HCC) 11/30/2022 Malignant neoplasm of central portion of right female breast (CMS/HCC) 11/30/2022 Migraine (CMS/HCC) 04/20/2011 Obesity (BMI 30-39.9) 11/30/2022 Right carpal tunnel syndrome 11/30/2022 Arthritis 11/30/2022 Hypercholesteremia (CMS/HCC) 11/30/2022 Carcinoma of lower outer quadrant of right breast (CMS/HCC) 06/05/2021 Status post breast reconstruction 02/17/2022 Triple negative malignant neoplasm of breast (CMS/HCC) 06/05/2021 Adjustment and management of vascular access device 03/02/2023 History of breast cancer 03/02/2023 Arthralgia of multiple sites, bilateral 11/01/2023 Hypothyroidism (acquired) (CMS/HCC) 11/01/2023 Cervical radiculopathy due to degenerative joint disease of spine 11/01/2023 Lumbar back pain with radiculopathy affecting left lower extremity 11/01/2023 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 (CMS/HCC) 11/01/2023 Carpal tunnel syndrome, left upper limb 11/01/2023 Moderate episode of recurrent major depressive disorder (HCC) (CMS/HCC) 11/01/2023 Other hyperlipidemia (CMS/HCC) 11/01/2023 History of breast problem 11/04/2023 Family history of cancer 11/04/2023 Anxiety and depression (CMS/HCC) 12/14/2023 GERD (gastroesophageal reflux disease) 12/14/2023 Hypopituitarism (CMS/HCC) 12/14/2023 Chronic pain of left knee 12/14/2023 Left hip pain 12/14/2023 Chronic left-sided low back pain without sciatica 12/14/2023 Overweight with body mass index (BMI) of 28 to 28.9 in adult 12/14/2023 Class 1 obesity due to excess calories without serious comorbidity with body mass index (BMI) of 30.0 to 30.9 in adult 01/13/2024 Dental infection 01/13/2024 Encounter for wellness examination in adult 03/22/2024 Resolved Ambulatory Problems Diagnosis Date Noted No Resolved Ambulatory Problems Past Medical History: Diagnosis Date Cameron's disease (CMS/HCC) Breast cancer screening by mammogram 05/26/2021 Breast lump Cancer (CMS/HCC) Chicken pox Genetic testing negative History of right breast cancer Hypercholesterolemia (CMS/HCC) Migraine headache (CMS/HCC) Negative genetic testing for ARVC Pap smear for cervical cancer screening 04/07/2022 HISTORY PAST MEDICAL HISTORY SOCIAL HISTORY Past Medical History: Diagnosis Date Maxie's disease (CMS/HCC) Arthritis Breast cancer screening by mammogram 05/26/2021 RIGHT BX DUE TO MASS. CALCIFICATION SLIGHTNESS Breast lump Cancer (CMS/HCC) right breast Chicken pox Family history of cancer Genetic testing negative History of breast cancer History of breast problem Right Breast ER/NV/Her3 neg History of right breast cancer Hypercholesterolemia (CMS/HCC) Migraine headache (CMS/HCC) Negative genetic testing for ARVC Pap smear for cervical cancer screening 04/07/2022 NEG x1 Right carpal tunnel syndrome Social History Tobacco Use Smoking status: Never Passive exposure: Never Smokeless tobacco: Never Vaping Use Vaping status: Never Used Substance Use Topics Alcohol use: Never Comment: caffeine: 1-2 cups per day coffee Drug use: Never FAMILY HISTORY Family History Problem Relation Name Age of Onset Peripheral vascular disease Mother COPD Mother Heart disease Mother Cancer Father Lung cancer Brother Breast cancer Neg Hx Colon cancer Neg Hx Ovarian cancer Neg Hx SURGICAL HISTORY Past Surgical History: Procedure Laterality Date BI US GUIDED BREAST LOCALIZATION AND BIOPSY LEFT Left 06/19/2021 BI US GUIDED BREAST LOCALIZATION AND BIOPSY LEFT 06/19/2021 BREAST BIOPSY Right 02/17/2022 BREAST LUMPECTOMY R followed by XRT CARPAL TUNNEL RELEASE Right 03/11/2015 CHOLECYSTECTOMY 2008 ENDOMETRIAL ABLATION 1999 FOOT SURGERY 2014 HEMORRHOID SURGERY 2016 IR CVC PORT PLACEMENT TUBAL LIGATION REVIEW OF SYSTEMS Review of Systems: Review of Systems All other systems reviewed and are negative. OBJECTIVE Objective: OBGyn Exam Vitals: Estimated body mass index is 28.34 kg/m as calculated from the following: Height as of 02/03/24: 5' 3 . Weight as of this encounter: 160 lb. BP: 114/70 No LMP recorded. Patient has had an ablation. ASSESSMENT & PLAN ICD-10-CM 1. Well woman exam with routine gynecological exam Z01.419 THIN PREP TIS PAP AND HR HPV DNA Annual: Patient presents today for an annual exam. Patient states she is doing well and has no complaints. Pap was obtained without difficulty and patient given mammogram order to have scheduled/obtained. Patient has history of breast cancer and was given follow up diagnostic mammogram to be done in 2023 Follow Up: Patient is to return in one year for annual unless needed otherwise. Documented by Summer Bhat LPN on behalf of: Chidi Rincon DO documented in this encounter [facility] 03-09-2024 Note Attestation signed by Awa Maradiaga [...] which she received immunotherapy with Keytruda from [id number]. She developed severe fatigue and weakness after [...] normal. LABS: Recent Data from [facility] Related to ALL THYROID STIM HORMONE Component [...] not able t (more content not included)... [facility] 11-03-2023 Note Chief Complaint consultation for colonoscopy [...] ligation. Medications buPR (more content not included)... [facility] Comment on above: Result Comment: Elec tronically Signed By: ANTONELLA POZO, Ismael Kelly\Date and Time Signed: 11/03/23 16:46 EDT 08-25-2023 History of Present illness Narrative Xr wrist documented in this encounter [facility] 09-19-2022 Progress note Note Date/Time September 18, 2022 1:44pm [facility] [place] [address] Hem/Onc Follow Up Note - OP Signed Patient: Tenisha Hancock MR#: [id number] : 1975 Acct:[id number] Age/Sex: 47 / F Type: REG RCR [...] hydrocortisone 20mg am/10mg pm. 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 We may [...] right mastopexy on 02/17/[address] Drs. Saunders/Drew ([facility]). Her pathology returned with no evidence of [...] Simons and has an appointment scheduled at [facility] to discuss josep flap surgery [...] overall good. BRCA testing was done through [facility] and is negative. She does have left [...] I willdefer to his impression and recommendations. CREEK: This is a now 47 year old female, recently diagnosed with triple negative right breast cancer; currently undergoing neoadjuvant pembrolizumab, carboplatin AUC 4and weekly paclitaxel x6 cycles, which commenced: 07/22/2021. This is a 46-year-old female who works at [employer] with triple negative breast cancer, referred for neoadjuvant chemotherapy. Mammogramon on April 22, 2021 showed 3 new focal masses with the largest measuring 2 cm in size in the right breast. 2 additional lesions measuring 1 cm and a second 0.9 cm were also seen. The patient was referred for biopsy. Needle biopsy showed triple negative breast cancer, ER negative, NV negative, and H ER 2 -. The patient was referred to Dr. Ismael Red for Ymctyg-v-Qssb which she has had placed. She [facility] and immunotherapy. Because of insurance reasons, she will be getting her treatment here at [facility]. She has had echocardiography as well. According the patient an MRI was obtained prior to neoadjuvant therapy while she was at [facility] we are requesting this prior [...] showed triple negative breast cancer, ER negative, NV negative, and HER 2 -. The patient was referred to Dr. Ismael Red for Kwmign-u-Ghow which she has had placed. She has seen my [facility] immunotherapy. Because of insurance reasons, she will be getting her treatment here at [facility]. She has had echocardiography as well. PET/CT [...] 9 cycles --Original breast MRI obtained from [facility] from May 2021, follow-up breast [...] preoperatively in late December. 2. 02/17/2022 at [facility], Drs. Saunders/Shantal: needle localized lumpectomy with oncoplastic [...] Allergies Allergy (Verified 09/18/22 13:38) Home Medications ljusklx-ilqtcgnkgqevc-fwptbuik 250 mg-250 mg-65 mg tablet (Excedrin Migraine) [...] % (Auto) 91.1, Lymph % (Auto) 6.2, Mineral % (Auto) 2.3, Eos % (Auto) 0.1, Baso % (Auto) 0.3, Nucleat RBC Rel Count 0.1, Neut # (Auto) 10.4 H, Lymph # (Auto) 0.7 L, Mineral # (Auto) 0.3, Eos # (Auto) 0.0, [...] see in consultation by Dr. Smith at [facility] in [place], [place]; however, due to insurance reasons the patient transferredcare to [facility]. In reviewing notes from her [...] do not have records from this from [facility] in [place]. I am requesting this to evaluate her baseline study since transfer of care from Dr. Fanning to myself. She also had reported normal [...] testing returned negative from prior physicians at [facility]. BRCA testing negative Follow-up September is cycle [...] We will review her prior MRI from [facility] in May 2021 in comparison [...] toxicities. MRI was reviewed and [facility] tumor board with Dr. 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 Completed adjuvant radiation then we resumed [...] with sentinel lymph node biopsy 02/17/2022 in [place]. Adjuvant radiation completed 05/04-06/16/2022. Total of 30 [...] for coordination of care (as documented) and xufu-kj-ybdl counseling of patient and/or family. Dictated By: Kallie Chang MD DD/ [id number] Signed By: <Electronically signed by MD Kallie Chang> 09/18/[address] [facility] Work Phone: 1(513) 950-741402-18-2023 Progress note Author Kallie Chang [facility] September 04, 2022 10:35pm Note Date/Time September 04, 2022 1:11pm [facility] [place] [address] Hem/Onc Follow Up Note - OP Signed Patient: Tenisha Hancock MR#: [id number] : 1975 Acct:[id number] Age/Sex: 47 / F Type: REG RCR [...] hydrocortisone 20mg am/10mg pm. 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 We may [...] right mastopexy on 02/17/[address] Saunders/Drew ([facility]). Her pathology returned with no evidence of [...] Simons and has an appointment scheduled at [facility] to discuss josep flap surgery [...] overall good. BRCA testing was done through [facility] and is negative. She does have left [...] I willdefer to his impression and recommendations. CREEK: This is a now 47 year old female, recently diagnosed with triple negative right breast cancer; currently undergoing neoadjuvant pembrolizumab, carboplatin AUC 4and weekly paclitaxel x6 cycles, which commenced: 07/22/2021. This is a 46-year-old female who works at [employer] with triple negative breast cancer, referred for neoadjuvant chemotherapy. Mammogramon on April 22, 2021 showed 3 new focal masses with the largest measuring 2 cm in size in the right breast. 2 additional lesions measuring 1 cm and a second 0.9 cm were also seen. The patient was referred for biopsy. Needle biopsy showed triple negative breast cancer, ER negative, NV negative, and H ER 2 -. The patient was referred to Dr. Ismael Red for Lnwpqi-i-Uudi which she has had placed. She has seen my [facility] and immunotherapy. Because of insurance reasons, she will be getting her treatment here at [facility]. She has had echocardiography as well. According the patient an MRI was obtained prior to neoadjuvant therapy while she was at [facility] we are requesting this prior [...] showed triple negative breast cancer, ER negative, NV negative, and HER 2 -. The patient was referred to Dr. Ismael Red for Cmknyv-t-Iprc which she has had placed. She has seen my [facility] immunotherapy. Because of insurance reasons, she will be getting her treatment here at [facility]. She has had echocardiography as well. PET/CT [...] 9 cycles --Original breast MRI obtained from [facility] from May 2021, follow-up breast [...] preoperatively in late December. 2. 02/17/2022 at [facility], Drs. Saunders/Shantal: needle localized lumpectomy with oncoplastic [...] Allergies Allergy (Verified 09/04/22 13:03) Home Medications fjtvlom-mdxxnzxazxppy-nifrvfla 250 mg-250 mg-65 mg tablet (Excedrin Migraine) [...] see in consultation by Dr. Smith at [facility] in [place], [place]; however, due to insurance reasons the patient transferredcare to [facility]. In reviewing notes from her prior physician [...] do not have records from this from [facility] in [place]. I am requesting this to evaluate her [...] testing returned negative from prior physicians at [facility]. BRCA testing negative Follow-up September is cycle [...] We will review her prior MRI from [facility] in May 2021 in comparison [...] toxicities. MRI was reviewed and [facility] tumor board with Dr. 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 Completed adjuvant radiation then we resumed [...] for coordination of care (as documented) and sktm-ce-mxyt counseling of patient and/or family. Dictated By: Kallie Chang MD DD/ [id number] Signed By: <Electronically signed by MD Kallie Chang> 09/04/[address] [facility] Work Phone: 1(404) 172-898502-03-2023 Progress note Author Heber Arriaga [facility] August 21, 2022 1:13pm Note Date/Time August 14, 2022 2 :16pm [facility] [place] [address] Hem/Onc Follow Up Note - OP Signed Patient: Tenisha Hancock MR#: [id number] : 1975 Acct:[id number] Age/Sex: 47 / F Type: REG RCR [...] hydrocortisone 20mg am/10mg pm. 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 We may [...] right mastopexy on 02/17/[address] Saunders/Drew ([facility]). Her pathology returned with no evidence of [...] Simons and has an appointment scheduled at [facility] to discuss josep flap surgery [...] overall good. BRCA testing was done through [facility] and is negative. She does have left [...] I willdefer to his impression and recommendations. 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 This is a 46-year-old female who works at [employer] with triple negative breast cancer, referred for neoadjuvant chemotherapy. Mammogramon on April 22, 2021 showed 3 new focal masses with the largest measuring 2 cm in size in the right breast. 2 additional lesions measuring 1 cm and a second 0.9 cm were also seen. The patient was referred for biopsy. Needle biopsy showed triple negative breast cancer, ER negative, NV negative, and H ER 2 -. The patient was referred to Dr. Ismael Red for Ohrxca-g-Skuo which she has had placed. She has [facility]. Because of insurance reasons, she will be getting her treatment here at [facility]. She has had echocardiography as well. According the patient an MRI was obtained prior to neoadjuvant therapy while she was at [facility] we are requesting this prior [...] showed triple negative breast cancer, ER negative, NV negative, and HER 2 -. The patient was referred to Dr. Ismael Red for Xhsazm-k-Tiud which she has had placed. She has [facility] immunotherapy. Because of insurance reasons, she will be getting her treatment here at [facility]. She has had echocardiography as well. PET/CT [...] 9 cycles --Original breast MRI obtained from [facility] from May 2021, follow-up breast [...] preoperatively in late December. 2. 02/17/2022 at [facility], Drs. Saunders/Shantal: needle localized lumpectomy with oncoplastic [...] Allergies Allergy (Verified 08/06/22 13:31) Home Medications fomvrxn-rnbeiiwuqryzb-dewtkdip 250 mg-250 mg-65 mg tablet (Excedrin Migraine) [...] then AC plus pembrolizumab Postoperative pathologic staging: Jean-Paul yN0 postoperative pathologic stage 0. Right lumpectomy/breast [...] see in consultation by Dr. Smith at [facility] in [place], [place]; however, due to insurance reasons the patient transferredcare to [facility]. In reviewing notes from her prior physician [...] do not have records from this from [facility] in [place]. I am requesting this to evaluate her [...] testing returned negative from prior physicians at [facility]. BRCA testing negative Follow-up September is cycle [...] We will review her prior MRI from [facility] in May 2021 in comparison [...] toxicities. MRI was reviewed and [facility] tumor board with Dr. 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 Completed adjuvant radiation then we resumed [...] for coordination of care (as documented) and iedc-vm-sxok counseling of patient and/or family. Dictated By: Heber Arriaga APRN DD/ [id number] Signed By: <Electronically signed by PETE Arriaga> 08/21/[address] [facility] Work Phone: 1(950) 938-366301-20-2023 Progress note Author Kallie Chang [facility] August 07, 2022 1:00pm Note Date/Time August 06, 2022 1 :39pm [facility] [place] [address] Hem/Onc Follow Up Note - OP Signed Patient: Tenisha Hancock MR#: [id number] : 1975 Acct:[id number] Age/Sex: 47 / F Type: REG RCR [...] hydrocortisone 20mg am/10mg pm. 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 We may [...] right mastopexy on 02/17/[address] Saunders/Drew ([facility]). Her pathology returned with no evidence of [...] Simons and has an appointment scheduled at [facility] to discuss josep flap surgery [...] overall good. BRCA testing was done through [facility] and is negative. She does have left [...] I willdefer to his impression and recommendations. 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 This is a 46-year-old female who works at [employer] with triple negative breast cancer, referred for neoadjuvant chemotherapy. Mammogramon on April 22, 2021 showed 3 new focal masses with the largest measuring 2 cm in size in the right breast. 2 additional lesions measuring 1 cm and a second 0.9 cm were also seen. The patient was referred for biopsy. Needle biopsy showed triple negative breast cancer, ER negative, NV negative, and H ER 2 -. The patient was referred to Dr. Ismael Red for Ydgmbv-f-Kecc which she has had placed. She has seen my colleague Dr. mSith at the [facility] recommended neoadjuvant chemotherapy and immunotherapy. Because of insurance reasons, she will be getting her treatment here at [facility]. She has had echocardiography as well. According the patient an MRI was obtained prior to neoadjuvant therapy while she was at [facility] we are requesting this prior [...] showed triple negative breast cancer, ER negative, NV negative, and HER 2 -. The patient was referred to Dr. Ismael Red for Wvotbd-j-Drxy which she has had placed. She has seen my colleague Dr. Smith at the [facility] recommended neoadjuvant chemotherapy and immunotherapy. Because of insurance reasons, she will be getting her treatment here at [facility]. She has had echocardiography as well. PET/CT [...] 9 cycles --Original breast MRI obtained from [facility] from May 2021, follow-up breast [...] preoperatively in late December. 2. 02/17/2022 at [facility], Drs. Saunders/Shantal: needle localized lumpectomy with oncoplastic [...] Allergies Allergy (Verified 08/06/22 13:31) Home Medications cgrztdj-ovkshiyytmibf-cssuwewb 250 mg-250 mg-65 mg tablet (Excedrin Migraine) [...] % (Auto) 92.9, Lymph % (Auto) 5.5, Mineral % (Auto) 1.4, Eos % (Auto) 0.0, Baso % (Auto) 0.2, Nucleat RBC Rel Count 0.0, Neut # (Auto) 8.7 H, Lymph # (Auto) 0.5 L, Mineral # (Auto) 0.1, Eos # (Auto) 0.0, [...] see in consultation by Dr. Smith at [facility] in [place], [place]; however, due to insurance reasons the patient transferredcare [facility]. In reviewing notes from her prior physician [...] do not have records from this from [facility] in [place]. I am requesting this to evaluate her [...] testing returned negative from prior physicians at [facility]. BRCA testing negative Follow-up September is cycle [...] We will review her prior MRI from [facility] in May 2021 in comparison [...] toxicities. MRI was reviewed and [facility] tumor board with Dr. 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 Completed adjuvant radiation then we resumed [...] with sentinel lymph node biopsy 02/17/2022 in [place]. Adjuvant radiation completed 05/04-06/16/2022. Total of 30 [...] for coordination of care (as documented) and fvuq-ze-yngl counseling of patient and/or family. Dictated By: Kallie Chang MD DD/ 1338 Signed By: <Electronically signed by MD Kallie Chang> 08/07/22 [address] [facility] Work Phone: 1(318) 924-776001-06-2023 Progress note Author Kallie Chang [facility] July 24, 2022 11:26am Note Date/Time July 23, 2022 1: 43pm [facility] at [address] [address] Hem/Onc Follow Up Note - OP Signed Patient: Tenisha Hancock MR#: [id number] : 1975 Acct:[id number] Age/Sex: 47 / F Type: REG RCR [...] hydrocortisone 20mg am/10mg pm. 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 We may [...] right mastopexy on 02/17/2022 [address] Drs. Saunders/Drew ([facility]). Her pathology returned with no evidence of [...] Simons and has an appointment scheduled at [facility] to discuss josep flap surgery [...] overall good. BRCA testing was done through [facility] and is negative. She does have left [...] I willdefer to his impression and recommendations. 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 This is a 46-year-old female who works at [employer] with triple negative breast cancer, referred for neoadjuvant chemotherapy. Mammogram onon April 22, 2021 showed 3 new focal masses with the largest measuring 2 cm in size in the right breast. 2 additional lesions measuring 1 cm and a second 0.9 cm were also seen. The patient was referred for biopsy. Needle biopsy showed triple negative breast cancer, ER negative, NV negative, and H ER 2 -. The patient was referred to Dr. Ismael Red for Sfuwrd-v-Cali which she has had placed. She has seen my colleague Dr. Smith at [facility] whorecommended neoadjuvant chemotherapy and immunotherapy. Because of insurance reasons, she will be getting her treatment here at [facility]. She has had echocardiography as well. According the patient an MRI was obtained prior to neoadjuvant therapy while shewas at [facility] we are requesting this prior [...] showed triple negative breast cancer, ER negative, NV negative, and HER 2 -. The patient was referred to Dr. Ismael Red for Pgbndk-r-Wllc which she has had placed. She has [facility]. Because of insurance reasons, she will be getting her treatment here at [facility]. She has had echocardiography as well. PET/CT [...] 9 cycles --Original breast MRI obtained from [facility] from May 2021, follow-up breast [...] preoperatively in late December. 2. 02/17/2022 at [facility], Drs. Saunders/Drew: needle localized lumpectomy with oncoplastic [...] Allergies Allergy (Verified 07/23/22 13:29) Home Medications zbaeeus-taqhxiamcotdh-xztjjhrg 250 mg-250 mg-65 mg tablet (Excedrin Migraine) [...] % (Auto) 71.8, Lymph % (Auto) 19.9, Mineral % (Auto) 6.3, Eos % (Auto) 1.3, Baso % (Auto) 0.7, Nucleat RBC Rel Count 0.2, Neut # (Auto) 4.6, Lymph # (Auto) 1.3, Mineral # (Auto) 0.4, Eos # (Auto) 0.1, [...] DISEASE C4-C7. Impression dictated by: Jamari Guzman Jr. DSavanahOSavanah06/19/2022 7:04 PM Assessment and Plan - TNM [...] see in consultation by Dr. Smith at [facility] in [place], [place]; however, due to insurance reasons the patient transferredcare to [facility]. In reviewing notes from her prior physician [...] do not have records from this from [facility] in [place]. I am requesting this to evaluate her [...] testing returned negative from prior physicians at [facility]. BRCA testing negative Follow-up September is cycle [...] We will review her prior MRI from [facility] in May 2021 in comparison [...] toxicities. MRI was reviewed and [facility] tumor board with Dr. Reza and [...] with sentinel lymph node biopsy 02/17/2022 in [place]. Adjuvant radiation completed 05/04-06/16/2022. Total of 30 [...] for coordination of care (as documented) and mhph-qb-oxio counseling of patient and/or family. Dictated By: Kallie Chang MD DD/ 1342 Signed By: <Electronically signed by MD Kallie Chang> 07/24/[address] [facility] Work Phone: 1(326) 937-121012-28-2022 Progress note Author Stacie Thomas [facility] July 15, 2022 1:57pm Note Date/Time July 15, 2022 9:31am [facility] [place] [address] Rad Onc Follow Up Note - OP Signed Patient: Tenisha Hancock MR#: [id number] : 1975 Acct:[id number] Age/Sex: 47 / F Type: REG RCR [...] 0 out of 5 lymph nodes involved. [id number]. In review of her operative note as [...] ductal carcinoma, 9 mm, provisional grade 3, ER/NV negative and HER2 negative. Per the available notes her BRCA testing was done through [facility] and was negative. Also appears the right breast mass was palpable in the lower mid quadrant of the breast. [facility]. Due to insurance reasons she received her systemic therapy here at [facility]. PET/CT was denied by insurance. CT scan of the chest abdomen pelvis on July 16, 2021 was negative for metastatic disease. Her clinical stage at presentation was cT2N0. June 11, 2021 patient did undergo an MRI in [place]. I do not have that report available [...] 0 out of 5 lymph nodes negative. djVggZ7Vq. Pathology was negative for LVSI. Of note [...] limits Dictated By: Stacie Thomas MD DD/ 0929 Signed By: <Electronically signed by Stacie Thomas MD> 07/15/22 [address] [facility] Work Phone: 1(902) 438-435212-02-2022 Progress note Author Kallie Chang [facility] June 19, 2022 9:06am Note Date/Time June 18, 2022 1 0:26am [facility] [place] [address] Hem/Onc Follow Up Note - OP Signed Patient: Tenisha Hancock MR#: [id number] : 1975 Acct:[id number] Age/Sex: 47 / F Type: REG RCR [...] hydrocortisone 20mg am/10mg pm. 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 We may [...] right mastopexy on 02/17/2022 [address] Drs. Saunders/Drew ([facility]). Her pathology returned with no evidence of [...] Simons and has an appointment scheduled at [facility] to discuss josep flap surgery [...] overall good. BRCA testing was done through [facility] and is negative. She does have left [...] I willdefer to his impression and recommendations. 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 This is a 46-year-old female who works at [employer] with triple negative breast cancer, referred for neoadjuvant chemotherapy. Mammogramon on April 22, 2021 showed 3 new focal masses with the largest measuring 2 cm in size in the right breast. 2 additional lesions measuring 1 cm and a second 0.9 cm were also seen. The patient was referred for biopsy. Needle biopsy showed triple negative breast cancer, ER negative, NV negative, and H ER 2 -. The patient was referred to Dr. Ismael Red for Eannur-w-Jifd which she has had placed. She has [facility]. Because of insurance reasons, she will be getting her treatment here at [facility]. She has had echocardiography as well. According the patient an MRI was obtained prior to neoadjuvant therapy while she was at [facility] we are requesting this prior [...] showed triple negative breast cancer, ER negative, NV negative, and HER 2 -. The patient was referred to Dr. Ismael Red for Knziwy-b-Fsyw which she has had placed. She has [facility] my [facility]. Because of insurance reasons, she will be getting her treatment here at [facility]. She has had echocardiography as well. PET/CT [...] 9 cycles --Original breast MRI obtained from [facility] from May 2021, follow-up breast [...] preoperatively in late December. 2. 02/17/2022 at [facility], Drs. Saunders/Drew: needle localized lumpectomy with oncoplastic [...] Allergies Allergy (Verified 03/12/22 08:56) Home Medications lvtloyp-ntywgdcoqdnwa-wzutokuu 250 mg-250 mg-65 mg tablet (Excedrin Migraine) [...] % (Auto) 69.1, Lymph % (Auto) 17.2, Mineral % (Auto) 10.3, Eos % (Auto) 2.7, Baso % (Auto) 0.7, Nucleat RBC Rel Count 0.0, Neut # (Auto) 3.5, Lymph # (Auto) 0.9 L, Mineral # (Auto) 0.5, Eos # (Auto) 0.1, [...] see in consultation by Dr. Smith at [facility] in [place], [place]; however, due to insurance reasons the patient transferredcare to [facility]. In reviewing notes from her prior physician [...] do not have records from this from [facility] in [place]. I am requesting this to evaluate her [...] testing returned negative from prior physicians at [facility]. BRCA testing negative Follow-up September is cycle [...] We will review her prior MRI from [facility] in May 2021 in comparison [...] other significant toxicities. MRI was reviewed and [facility] tumor board with Dr. Reza and he [...] with sentinel lymph node biopsy 02/17/2022 in [place]. Adjuvant radiation completed 05/04-06/16/2022. Total of 30 [...] giving hydrocortisone for symptom management. Reassess by SUPPLY SERVICE WORKER for tolerance of therapy in 1 week. Good pathologicresponse with DCIS only on pathology Coordination of Care & Counseling Time: Greater than 50% of time spent with patient was for coordination of care (as documented) and avio-ot-vixh counseling of patient and/or family. Dictated By: Kallie Chang MD DD/ 1026 Signed By: <Electronically signed by MD Kallie Chang> 06/19/22 [address] [facility] Work Phone: 1([phone]) 617-578809-30-2022 Progress note Author Stacie Thomas [facility] April 17, 2022 9:21am Note Date/Time April 16, 2022 9:02am [facility] at [place] [id number] Rad Onc Follow Up Note - OP Signed with Ezra Patient: Tenisha Hancock MR#: [id number] : 1975 Acct:[id number] Age/Sex: 47 / F Type: REG RCR [...] 0 out of 5 lymph nodes involved. [id number]. In review of her operative note as [...] ductal carcinoma, 9 mm, provisional grade 3, ER/NV negative and HER2 negative. Per the available notes her BRCA testing was done through [facility] and was negative. Also appears the right breast mass was palpable in the lower mid quadrant of the breast. [facility]. Due to insurance reasons she received her systemic therapy here at [facility]. PET/CT was denied by insurance. CT scan of the chest abdomen pelvis on July 16, 2021 was negative for metastatic disease. Her clinical stage at presentation was cT2N0. June 11, 2021 patient did undergo an MRI in [place]. I do not have that report available [...] 0 out of 5 lymph nodes negative. rlAlaK6Yv. Pathology was negative for LVSI. Of note [...] signed by Stacie Thomas MD> 04/16/22 [address] [facility] Work Phone: [phone]) 264-769709-13-2022 NotePROCEDURE: XR GI UPPER AIR KUB DUAL [...] Electronically authenticated by: BARBER VASQUEZ Date: 2022 14:36[facility]09-13-2022 NotePROCEDURE: XR GI UPPER AIR KUB [...] Electronically authenticated by: BARBER VASQUEZ Date: 2022 14:36[facility]09-01-2022 Consult note Author Stacie Thomas [facility] March 19, 2022 10:56am Note Date/Time March 18, 2022 3: [address] [place] [address] [place] [address] Rad Onc Consult Note - OP Signed Patient: Tenisha Hancock MR#: [id number] : 1975 Acct:[id number] Age/Sex: 46 / F Type: REG RCR [...] 0 out of 5 lymph nodes involved. [id number]. In review of her operative note as [...] ductal carcinoma, 9 mm, provisional grade 3, ER/NV negative and HER2 negative. Per the available notes her BRCA testing was done through [facility] and was negative. Also appears the right breast mass was palpable in the lower mid quadrant of the breast. [facility] and immunotherapy. Due to insurance reasons she received her systemic therapy here at [facility]. PET/CT was denied by insurance. CT scan of the chest abdomen pelvis on July 16, 2021 was negative for metastatic disease. Her clinical stage at presentation was cT2N0. June 11, 2021 patient did undergo an MRI in [place]. I do not have that report available [...] 0 out of 5 lymph nodes negative. [id number]. Pathology was negative for LVSI. Of note [...] work. Has no other breast related complaints. [facility] - Medical History Medical History: [...] Allergies Allergy (Verified 03/12/22 08:56) Home Medications yedoesk-gmwnefzsejoxt-ajwfisbd 250 mg-250 mg-65 mg tablet (Excedrin Migraine) [...] signed by Stacie Thomas MD> 03/19/22 [address] [facility] Work Phone: [phone]) 574-755308-31-2022 Consult note Author Stacie Thomas [facility] March 19, 2022 10:56am Note Date/Time March 18, 2022 3: 31pm [facility] [place] [address] Rad Onc Consult Note - OP Signed Patient: FeglTenisha parker MR#: [id number] : 1975 Acct:[id number] Age/Sex: 46 / F Type: REG RCR [...] 0 out of 5 lymph nodes involved. xTrwX5Pf. In review of her operative note as [...] ductal carcinoma, 9 mm, provisional grade 3, ER/NV negative and HER2 negative. Per the available notes her BRCA testing was done through [facility] and was negative. Also appears the right breast mass was palpable in the lower mid quadrant of the breast. [facility]. Due to insurance reasons she received her systemic therapy here at [facility]. PET/CT was denied by insurance. CT scan of the chest abdomen pelvis on July 16, 2021 was negative for metastatic disease. Her clinical stage at presentation was cT2N0. June 11, 2021 patient did undergo an MRI in [place]. I do not have that report available [...] 0 out of 5 lymph nodes negative. hmLafS0Gu. Pathology was negative for LVSI. Of note [...] work. Has no other breast related complaints. [facility] - Medical History Medical History: [...] Allergies Allergy (Verified 03/12/22 08:56) Home Medications oynjwzj-nbaeizohihzis-dklnuhny 250 mg-250 mg-65 mg tablet (Excedrin Migraine) [...] <Electronically signed by Stacie Thomas MD> 03/19/[address] [facility] Work Phone: 1(212) 638-919808-25-2022 Progress note Author Kallie Chang [facility] March 12, 2022 4:36pm Note Date/Time March 12, 2022 9: 49am [facility] [place] [address] Hem/Onc Follow Up Note - OP Signed Patient: Tenisha Hancock MR#: [id number] : 1975 Acct:[id number] Age/Sex: 46 / F Type: REG RCR [...] right mastopexy on 02/17/2022 [address] Drs. Saunders/Drew ([facility]). Her pathology returned with no evidence of [...] Simons and has an appointment scheduled at [facility] to discuss josep flap surgery [...] overall good. BRCA testing was done through [facility] and is negative. She does have left [...] I willdefer to his impression and recommendations. CREEK: This is a 46 year old female, recently diagnosed with triple negative right breast cancer; currently undergoing neoadjuvant pembrolizumab, carboplatin AUC 4 and weekly paclitaxel x6 cycles, which commenced: 07/22/2021. This is a 46-year-old female who works at [employer] with triple negative breast cancer, referred for neoadjuvant chemotherapy. Mammogramon on April 22, 2021 showed 3 new focal masses with the largest measuring 2 cm in size in the right breast. 2 additional lesions measuring 1 cm and a second 0.9 cm were also seen. The patient was referred for biopsy. Needle biopsy showed triple negative breast cancer, ER negative, NV negative, and H ER 2 -. The patient was referred to Dr. Ismale Red for Csvvqd-s-Jkek which she has had placed. She has seen my colleague Dr. Smith at the [facility] recommended neoadjuvant chemotherapy and immunotherapy. Because of insurance reasons, she will be getting her treatment here at [facility]. She has had echocardiography as well. According the patient an MRI was obtained prior to neoadjuvant therapy while she was at [facility] we are requesting this prior [...] showed triple negative breast cancer, ER negative, NV negative, and HER 2 -. The patient was referred to Dr. Ismael Red for Zvcodi-z-Fjin which she has had placed. She has seen my colleague Dr. Smith at the [facility] recommended neoadjuvant chemotherapy and immunotherapy. Because of insurance reasons, she will be getting her treatment here at [facility]. She has had echocardiography as well. PET/CT [...] 9 cycles --Original breast MRI obtained from [facility] from May 2021, follow-up breast [...] preoperatively in late December. 2. 02/17/2022 at [facility], Drs. Saunders/Drew: needle localized lumpectomy with oncoplastic [...] Allergies Allergy (Verified 03/12/22 08:56) Home Medications vhcehfu-ftomjetsmtwek-zcgaebhj 250 mg-250 mg-65 mg tablet (Excedrin Migraine) [...] Copies to: MD Meghana Wilson MD, [facility]~ Weight: 196 lb Performed By: ARNOLD [...] see in consultation by Dr. Smith at [facility] in [place], [place]; however, due to insurance reasons the patient transferredcare to [facility]. In reviewing notes from her [...] do not have records from this from [facility] in [place]. I am requesting this to evaluate her [...] testing returned negative from prior physicians at [facility]. BRCA testing negative Follow-up September is cycle [...] We will review her prior MRI from [facility] in May 2021 in comparison [...] toxicities. MRI was reviewed and [facility] tumor board with Dr. Reza and [...] immunotherapy labs adjuvant cycle 2-day 1 Pembroluzumab timothy if new issues arise. High complexity [...] small focus of residual DCIS, ER 5%, NV 0%. Referring for adjuvant radiation then we [...] for coordination of care (as documented) and fvzh-em-ddns counseling of patient and/or family. Dictated By: Kallie Chang MD DD/ 0948 Signed By: <Electronically signed by MD Kallie Chang> 03/12/22 07[address] [facility] Work Phone: 1(574) 541-298108-02-2022 Hospital Discharge instructions* Discharge Instructions* Nader Alicia [...] permanent changes in scar color to darker, furniture servicer or discolored. At times you may have [...] drainage Our office numbers are as follows: [place] office: [facility] Work Phone: 1([phone]) 477-308807-14-2022 Miscellaneous Notes* Telephone Encounter - Nat Ricketts RN - 01/29/2022 5:25 PM EDT Noticed that patient's appointment for 01/[address] Lea was cancelled Called and lmom with my name and number for her to call back if this was cancelled accidentally somehow and we would be happy to put her back on the schedule documented in this encounterTr[facility] System07-07-2022 Miscellaneous Notes* Telephone Encounter - Nat [...] on voicemail to return her call at [phone]. Thank you. * Telephone Encounter - Nat [...] 12:46 PM EDT Imaging reports rec'd reviewed: Kenna 04/2021 - R screening abnl 2.4 cm [...] I see a teaching note 06/23/21 at [facility] but limited documentation since then [...] EDT Noted I will check when in [place] on Wednesday. * Telephone Encounter - Alvin Alexis - 01/16/2022 1:23 PM EDT Pt calling regarding faxed info she had sent to [employer]. Pt asking if fax was received by office or if she needs to do anything else. Pt requesting call back to discuss. * Telephone Encounter - Lucinda Alvarez Ma - 01/16/2022 9:13 AM EDT I called pt to discuss where all outside workup has been, she has had studies at both [facility] and [facility]. I was able to have patient get a release and will also fax to [facility] what she hasthus far. Our office will [...] slides and reports SHANNAN documented in this encounterTrinity Health System06-30-2022 NoteHNO ID: [id number] Author: Yasemin Bernal Service: ? Author Type: ? Type: Progress Notes Filed: 01/15/2022 4:35 PM Note Text: DATE OF PHOTOS: 01/15/2022 Body Part: Breasts and Abdomen Yasemin Bernal January 15, 2022 4:35 [facility]06-29-2022 NoteHNO ID: [id number] Author: Fahad Russell MD Service: ? Author Type: Physician Type: Progress Notes Filed: 01/27/2022 4:45 PM Note Text: BREAST RECONSTRUCTION EVALUATION CC: Tenisha Hancock is a 46 year old female that presents today for breast reconstruction evaluation. 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 Dr. Reza in [place] is her breast surgeon. 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 Tenisha Hancock was given supplemental information on [...] Past Histories independently gathered by the clinical client support professional and the remaining scribed note accurately describes my personal service to the patient. patient's condition reviewed and examined ? plan and options of management, complexity, risk benefit limitation potential complication, success /failure of management, expected result and recovery discussed ? I spent 30 minutes in the visit, with more than 50% of the total aczo-sn-dmmg time of the visit in counseling / coordination of care. ? Fahad Russell [facility]06-29-2022 History of Present illness Narrative* Fahad Russell MD - 01/14/2022 4:48 PM EDT BREAST RECONSTRUCTION EVALUATION CC: Tenisha Hancock is a 46 year old female that presents today for breast reconstruction evaluation. 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 in [place] is her breast surgeon. 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 Tenisha Hancokc was given supplemental information on breast reconstruction. [...] Past Histories independently gathered by the clinical client support professional and the remaining scribed note accurately describes my personal service to the patient. patient's condition reviewed and examined plan and options of management, complexity, risk benefit limitation potential complication, success/failure of management, expected result and recovery discussed I spent 30 minutes in the visit, with more than 50% of the total vlwz-bs-lphf time of the visit in counseling / coordination of care. Fahad Russell [facility] Progress note Author Heber Arriaga [facility] December 24, 2021 8:46pm Note Date/Time December 24, 2021 3:07p [facility] [place] [address] Hem/Onc Follow Up Note - OP Signed Patient: Tenisha Hancock MR#: [id number] : 1975 Acct:[id number] Age/Sex: 46 / F Type: REG RCR Copies to: MD Uriel Wilson DO Kim E Knight, MD~ Subjective Date/Time of Service: Date of Service: 12/24/2021 Time of Service: 15:07 Chief Complaint: Patient is here for a [address] [facility] labs for review. Has multiple questions [...] Simons and has an appointment scheduled at [facility] to discuss josep flap surgery [...] overall good. BRCA testing was done through [facility] and is negative. She does have left [...] I willdefer to his impression and recommendations. 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 This is a 46-year-old female who works at [employer] with triple negative breast cancer, referred for neoadjuvant chemotherapy. Mammogramon on April 22, 2021 showed 3 new focal masses with the largest measuring 2 cm in size in the right breast. 2 additional lesions measuring 1 cm and a second 0.9 cm were also seen. The patient was referred for biopsy. Needle biopsy showed triple negative breast cancer, ER negative, NV negative, and H ER 2 -. The patient was referred to Dr. Ismael Red for Cyjpgi-g-Bpkv which she has had placed. She has seen my colleague Dr. Smith at the [facility] recommended neoadjuvant chemotherapy and immunotherapy. Because of insurance reasons, she will be getting her treatment here at [facility]. She has had echocardiography as well. According the patient an MRI was obtained prior to neoadjuvant therapy while she was at [facility] we are requesting this prior [...] showed triple negative breast cancer, ER negative, NV negative, and HER 2 -. The patient was referred to Dr. Ismael Red for Zbshbf-s-Fgvk which she has had placed. She has seen my colleague Dr. Smith at the [facility] recommended neoadjuvant chemotherapy and immunotherapy. Because of insurance reasons, she will be getting her treatment here at [facility]. She has had echocardiography as well. PET/CT [...] 9 cycles --Original breast MRI obtained from [facility] from May 2021, follow-up breast [...] Allergies Allergy (Verified 12/03/21 13:51) Home Medications xztqtxx-wyyngxanecwch-dxxinvye 250 mg-250 mg-65 mg tablet (Excedrin Migraine) [...] see in consultation by Dr. Smith at [facility] in [place], [place]; however, due to insurance reasons the patient transferredcare to [facility]. In reviewing notes from her [...] do not have records from this from [facility] in [place]. I am requesting this to evaluate her [...] testing returned negative from prior physicians at [facility] clinic. BRCA testing negative Follow-up [...] We will review her prior MRI from [facility] in May 2021 in comparison [...] toxicities. MRI was reviewed and [facility] tumor board with Dr. Reza and [...] for coordination of care (as documented) and fvyd-ck-tzjq counseling of patient and/or family. Dictated By: Heber Arriaga APRN DD/ 1507 Signed By: <Electronically signed by PETE Arriaga> 12/24/212045 [facility] Work Phone: [phone]) 978-930505-18-2022 Progress note Author Kallie Chang [facility] December 03, 2021 2:19pm Note Date/Time December 03, 2021 2:02p m [facility] [place] [address] Hem/Onc Follow Up Note - OP Signed Patient: Tenisha Hancock MR#: [id number] : 1975 Acct:[id number] Age/Sex: 46 / F Type: REG RCR [...] overall good. BRCA testing was done through [facility] and is negative. She does have left [...] I willdefer to his impression and recommendations. 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 This is a 46-year-old female who works at [employer] with triple negative breast cancer, referred for neoadjuvant chemotherapy. Mammogramon on April 22, 2021 showed 3 new focal masses with the largest measuring 2 cm in size in the right breast. 2 additional lesions measuring 1 cm and a second 0.9 cm were also seen. The patient was referred for biopsy. Needle biopsy showed triple negative breast cancer, ER negative, NV negative, and H ER 2 -. The patient was referred to Dr. Ismael Red for Qlcwlc-n-Gvyp which she has had placed. She [facility]. Because of insurance reasons, she will be getting her treatment here at [facility]. She has had echocardiography as well. According the patient an MRI was obtained prior to neoadjuvant therapy while she was at [facility] we are requesting this prior [...] showed triple negative breast cancer, ER negative, NV negative, and HER 2 -. The patient was referred to Dr. Ismael Red for Ufyfcx-z-Cjzd which she has had placed. She has [facility] my [facility]. Because of insurance reasons, she will be getting her treatment here at [facility]. She has had echocardiography as well. PET/CT [...] 9 cycles --Original breast MRI obtained from [facility] from May 2021, follow-up breast [...] Allergies Allergy (Verified 12/03/21 13:51) Home Medications wolaaca-yptmvigmkrwnz-idzjzgca 250 mg-250 mg-65 mg tablet (Excedrin Migraine) [...] Left breast without masses, left upper chest Icwqqo-z-Cjki in place and nontender. No axillary fullness [...] % (Auto) 80.1, Lymph % (Auto) 16.3, Mineral % (Auto) 2.6, Eos % (Auto) 0.5, Baso % (Auto) 0.5, Neut # (Auto) 6.9, Lymph # (Auto) 1.4, Mineral # (Auto) 0.2, Eos # (Auto) 0.0, Baso # (Auto) 0.0, Nucleated RBC % (auto) 0.1, Toxic Granulation Slight, Dohle Bodies Slight, Platelet Estimate Normal, Plt Morphology Comment Normal, RBC Morphology N/A, Macrocytosis Slight, Tear Drop Cells Slight 11/25/21 14:45: PHA Creatinine Clear 105.09, Sodium 137, Potassium 4.2, Gxdzwsdz874, Carbon Dioxide 22.6, BUN 14, Creatinine 0.73, [...] % (Auto) 71.5, Lymph % (Auto) 19.6, Mineral % (Auto) 7.6, Eos % (Auto) 0.4, Baso % (Auto) 0.9, Neut # (Auto) 6.2, Lymph # (Auto) 1.7, Mineral # (Auto) 0.7, Eos # (Auto) 0.0, [...] see in consultation by Dr. Smith at [facility] in [place], [place]; however, due to insurance reasons the patient transferredcare to [facility]. In reviewing notes from her [...] do not have records from this from [facility] in [place]. I am requesting this to evaluate her [...] testing returned negative from prior physicians at [facility]. BRCA testing negative Follow-up September is cycle [...] We will review her prior MRI from [facility] in May 2021 in comparison [...] toxicities. MRI was reviewed and [facility] tumor board with Dr. Reza and [...] for coordination of care (as documented) and esae-mg-olwm counseling of patient and/or family. Dictated By: Kallie Chang MD DD/ [id number] Signed By: <Electronically signed by MD Kallie Chang> 12/03/[address] [facility] Work Phone: [phone]) 164-779304-28-2022 Progress note Author Kallie Chang [facility] November 13, 2021 3:34pm Note Date/Time November 12, 2021 3:0 7pm [facility] [place] [address] Hem/Onc Follow Up Note - OP Signed Patient: Tenisha Hancock MR#: [id number] : 1975 Acct:[id number] Age/Sex: 46 / F Type: REG RCR [...] overall good. BRCA testing was done through [facility] and is negative. She does have left [...] I willdefer to his impression and recommendations. 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 This is a 46-year-old female who works at [employer] with triple negative breast cancer, referred for neoadjuvant chemotherapy. Mammogramon on April 22, 2021 showed 3 new focal masses with the largest measuring 2 cm in size in the right breast. 2 additional lesions measuring 1 cm and a second 0.9 cm were also seen. The patient was referred for biopsy. Needle biopsy showed triple negative breast cancer, ER negative, NV negative, and H ER 2 -. The patient was referred to Dr. Ismael Red for Vsxcgf-e-Oypx which she has had placed. She has [facility]. Because of insurance reasons, she will be getting her treatment here at [facility]. She has had echocardiography as well. According the patient an MRI was obtained prior to neoadjuvant therapy while she was at [facility] we are requesting this prior [...] showed triple negative breast cancer, ER negative, NV negative, and HER 2 -. The patient was referred to Dr. Ismael Red for Bocjdx-o-Idhj which she has had placed. She has [facility] my [facility] immunotherapy. Because of insurance reasons, she will be getting her treatment here at [facility]. She has had echocardiography as well. PET/CT [...] 9 cycles --Original breast MRI obtained from [facility] from May 2021, follow-up breast [...] Allergies Allergy (Verified 10/22/21 10:19) Home Medications uarxywr-zolpkydjciwwk-zysjxxvj 250 mg-250 mg-65 mg tablet (Excedrin Migraine) [...] Left breast without masses, left upper chest Xzgoff-b-Uadu in place and nontender. No axillary fullness [...] Creatinine Clear 145.60, Sodium 136, Potassium 3.6, Oslbwufw419, Carbon Dioxide 23.3, BUN 7 L, Creatinine [...] see in consultation by Dr. Smith at [facility] in [place], [place]; however, due to insurance reasons the patient transferredcare to [facility]. In reviewing notes from her [...] do not have records from this from [facility] in [place]. I am requesting this to evaluate her [...] testing returned negative from prior physicians at [facility] clinic. BRCA testing negative Follow-up [...] We will review her prior MRI from [facility] in May 2021 in comparison [...] toxicities. MRI was reviewed and [facility] tumor board with Dr. Reza and [...] for coordination of care (as documented) and ewlx-ht-qgth counseling of patient and/or family. Dictated By: Kallie Chang MD DD/ 1507 Signed By: <Electronically signed by MD Kallie Chang> 11/13/[address] [facility] Work Phone: [phone]) 760-801304-06-2022 Progress note Author Kallie Chang [facility] October 22, 2021 4:22pm Note Date/Time October 22, 2021 10:2 8am [facility] at [address] [address] Hem/Onc Follow Up Note - OP Signed Patient: Tenisha Hancock MR#: [id number] : 1975 Acct:[id number] Age/Sex: 46 / F Type: REG RCR Copies to: UrielDO Eliel Rosen MD~ Subjective Date/Time of Service: Date of [...] overall good. BRCA testing was done through [facility] and is negative. She does have left [...] I willdefer to his impression and recommendations. 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 This is a 46-year-old female who works at [employer] with triple negative breast cancer, referred for neoadjuvant chemotherapy. Mammogramon on April 22, 2021 showed 3 new focal masses with the largest measuring 2 cm in size in the right breast. 2 additional lesions measuring 1 cm and a second 0.9 cm were also seen. The patient was referred for biopsy. Needle biopsy showed triple negative breast cancer, ER negative, NV negative, and H ER 2 -. The patient was referred to Dr. Ismael Red for Zsffee-k-Japh which she has had placed. She has [facility] my [facility] immunotherapy. Because of insurance reasons, she will be getting her treatment here at [facility]. She has had echocardiography as well. According the patient an MRI was obtained prior to neoadjuvant therapy while she was at [facility] we are requesting this prior [...] showed triple negative breast cancer, ER negative, NV negative, and HER 2 -. The patient was referred to Dr. Ismael Red for Yzzpyp-p-Hppc which she has had placed. She has seen my [facility] immunotherapy. Because of insurance reasons, she will be getting her treatment here at [facility]. She has had echocardiography as well. PET/CT [...] 9 cycles --Original breast MRI obtained from [facility] from May 2021, follow-up breast [...] Negative for environmental allergies and food allergies. [facility] - History Attestation statement: The following information [...] Allergies Allergy (Verified 10/22/21 10:19) Home Medications tjfeifx-qxqgukdfbinuo-kgnicozt 250 mg-250 mg-65 mg tablet (Excedrin Migraine) [...] lymphadenopathy. Left breast withoutmasses, left upper chest Fdddiy-g-Eduj in place and nontender. No axillary fullness [...] H, MCHC 33.7, RDW 16.7 H, Plt Tsttj442 L, MPV 7.1, Nucleated RBC % (auto) [...] IMM Impression dictated by: Jamari Guzman Jr., D.O.10/13/2021 3:12 PM - Other Results Results/Comments: Date of Service: 10/14/21 [facility] transthoracic: monitoring for chemotherapy Interpretation Summary [...] see in consultation by Dr. Smith at [facility] in [place], [place]; however, due to insurance reasons the patient transferredcare [facility]. In reviewing notes from her prior physician [...] do not have records from this from [facility] in [place]. I am requesting this to evaluate her [...] testing returned negative from prior physicians at [facility] clinic. BRCA testing negative Follow-up [...] We will review her prior MRI from [facility] in May 2021 in comparison [...] toxicities. MRI was reviewed and [facility] tumor board with Dr. Reza and [...] management Moderate complexity visit for discussion and [facility] tumor board, review of MRI and echocardiogram, [...] for coordination of care (as documented) and hjfg-sv-tdnb counseling of patient and/or family. Dictated By: Kallie Chang MD DD/ 1028 Signed By: <Electronically signed by MD Kallie Chang> 10/22/[address] [facility] Work Phone: [phone]) [phone] Progress note Author Kallie Chang [facility] October 09, 2021 2:48pm Note Date/Time October 08, 2021 11: 37am [facility] [place] [address] Hem/Onc Follow Up Note - OP Signed Patient: Tenisha Hancock MR#: [id number] : 1975 Acct:[id number] Age/Sex: 46 / F Type: REG RCR [...] overall good. BRCA testing was done through [facility] and is negative. She does have left [...] I willdefer to his impression and recommendations. 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 This is a 46-year-old female who works at [employer] with triple negative breast cancer, referred for neoadjuvant chemotherapy. Mammogramon on April 22, 2021 showed 3 new focal masses with the largest measuring 2 cm in size in the right breast. 2 additional lesions measuring 1 cm and a second 0.9 cm were also seen. The patient was referred for biopsy. Needle biopsy showed triple negative breast cancer, ER negative, NV negative, and H ER 2 -. The patient was referred to Dr. Ismael Red for Cfcpaq-j-Wdwf which she has had placed. She has seen my [facility]. Because of insurance reasons, she will be getting her treatment here at [facility]. She has had echocardiography as well. According the patient an MRI was obtained prior to neoadjuvant therapy while she was at [facility] we are requesting this prior [...] showed triple negative breast cancer, ER negative, NV negative, and HER 2 -. The patient was referred to Dr. Ismael Red for Fluiam-o-Qpdu which she has had placed. She has seen my colleague [facility] Smtih [facility]. Because of insurance reasons, she will be getting her treatment here at [facility]. She has had echocardiography as well. PET/CT [...] 9 cycles --Original breast MRI obtained from [facility] from May 2021, follow-up breast [...] PO Q6H PRN 07/03/21 [History Confirmed 10/08/21] estulmp-yfwfvgxxojvdj-qfsiskxn 250 mg-250 mg-65 mg tablet (Excedrin Migraine) [...] Left breast without masses, left upper chest Bxjsmj-m-Vegq in place and nontender. No axillary fullness [...] Creatinine Clear 110.24, Sodium 136, Potassium 3.7, Qlkzqapv927, Carbon Dioxide 22.8, BUN 7 L, Creatinine [...] % (Auto) 65.5, Lymph % (Auto) 30.1, Mineral % (Auto) 3.7, Eos % (Auto) 0.4, Baso % (Auto) 0.3, Neut # (Auto) 4.0, Lymph # (Auto) 1.8, Mineral # (Auto) 0.2, Eos # (Auto) 0.0, [...] see in consultation by Dr. Smith at [facility] in [place], [place]; however, due to insurance reasons the patient transferredcare to [facility]. In reviewing notes from her [...] do not have records from this from [facility] in [place]. I am requesting this to evaluate her [...] testing returned negative from prior physicians at [facility]. BRCA testing negative Follow-up September is cycle [...] We will review her prior MRI from [facility] in May 2021 in comparison [...] for coordination of care (as documented) and ypzc-kl-iwvx counseling of patient and/or family. Dictated By: Kallie Chang MD DD/ 1136 Signed By: <Electronically signed by MD Kallie Chang> 10/09/[address] [facility] Work Phone: [phone]) 459-859703-09-2022 Progress note Author Kallie Chang [facility] September 24, 2021 11:25am Note Date/Time September 24, 2021 8:11 am [facility] [place] [address] Hem/Onc Follow Up Note - OP Signed Patient: Tenisha Hancock MR#: [id number] : 1975 Acct:[id number] Age/Sex: 46 / F Type: REG RCR [...] overall good. BRCA testing was done through [facility] and is negative. She does have left [...] I willdefer to his impression and recommendations. 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 This is a 46-year-old female who works at [employer] with triple negative breast cancer, referred for neoadjuvant chemotherapy. Mammogramon on April 22, 2021 showed 3 new focal masses with the largest measuring 2 cm in size in the right breast. 2 additional lesions measuring 1 cm and a second 0.9 cm were also seen. The patient was referred for biopsy. Needle biopsy showed triple negative breast cancer, ER negative, NV negative, and H ER 2 -. The patient was referred to Dr. Ismael Red for Lzzhhn-s-Rcwn which she has had placed. She has [facility] my [facility]. Because of insurance reasons, she will be getting her treatment here at [facility]. She has had echocardiography as well. According the patient an MRI was obtained prior to neoadjuvant therapy while she was at [facility] we are requesting this prior [...] showed triple negative breast cancer, ER negative, NV negative, and HER 2 -. The patient was referred to Dr. Ismael Red for Xxeurp-u-Iwff which she has had placed. She has seen my colleague [facility] [facility] recommended neoadjuvant chemotherapy and immunotherapy. Because of insurance reasons, she will be getting her treatment here at [facility]. She has had echocardiography as well. PET/CT [...] Negative for environmental allergies and food allergies. [facility] - History Attestation statement: The following information [...] PO Q6H PRN 07/03/21 [History Confirmed 09/24/21] ytcvmkh-jqgsxwoneddza-wlhuweys 250 mg-250 mg-65 mg tablet (Excedrin Migraine) [...] Left breast without masses, left upper chest Sxyexg-t-Vlbg in place and nontender. No axillary fullness [...] Impressions We will request outside MRI from [facility] from baseline. - Other Results Results/Comments: Prior notes from [facility] CT scan showed echocardiogram 06/19/2021 with [...] see in consultation by Dr. Smith at [facility] in [place], [place]; however, due to insurance reasons the patient transferredcare to [facility]. In reviewing notes from her [...] do not have records from this from [facility] in [place]. I am requesting this to evaluate her [...] testing returned negative from prior physicians at [facility]. BRCA testing negative Today in follow-up September [...] for coordination of care (as documented) and myow-ab-qszh counseling of patient and/or family. Dictated By: Kallie Chang MD DD/ 9 Signed By: <Electronically signed by MD Kallie Chang> 09/24/[address] [facility] Work Phone: 1(202) 540-938302-28-2022 Evaluation note* Encounter Date Diagnosis Assessment Notes [...] investigation. Aug, Cervical spondylosis (ICD-10 - M47.812) [email or web address] Other 02-02-2022 Progress note Author Salbador Phoenix [facility] August 20, 2021 2:47pm Note Date/Time August 20, 2021 2 :45pm [facility] at [place] [id number] Hem/Onc Follow Up Note - OP Signed Patient: Tenisha Hancock MR#: [id number] : 1975 Acct:[id number] Age/Sex: 46 / F Type: REG RCR [...] overall good. BRCA testing was done through [facility] and is negative. She does have left [...] I willdefer to his impression and recommendations. CREEK: This is a 46 year old female, [...] showed triple negative breast cancer, ER negative, NV negative, and HER 2-. The patient was referred to Dr. Ismael Red for Yegwqf-q-Wkpo which she has had placed. She has [facility]. Because of insurance reasons, she will be getting her treatment here at [facility]. She has had echocardiography as well. PET/CT [...] 10 point review of systems is negative. [facility] - Medical History Medical History: [...] PO Q6H PRN 07/03/21 [History Confirmed 08/20/21] dfzddxw-fomixxfafpaaq-ixgzxxnn 250 mg-250 mg-65 mg tablet (Excedrin Migraine) [...] % (Auto) 58.0, Lymph % (Auto) 36.6, Mineral % (Auto) 3.9, Eos % (Auto) 1.0, Baso % (Auto) 0.5, Neut # (Auto) 3.2, Lymph # (Auto) 2.0, Mineral # (Auto) 0.2, Eos # (Auto) 0.1, [...] see in consultation by Dr. Smith at [facility] in [place], [place]; however, due to insurance reasons the patient transferredcare [facility]. She commenced neoadjuvant Carboplatin/Paclitaxel/Pembrolizumab therapy on 07/22/2021; [...] for coordination of care (as documented) and pmbd-ao-rwgt counseling of patient and/or family. Dictated By: Salbador Phoenix MD DD/ 40 Signed By: <Electronically signed by MD Salbador Phoenix> 08/20/211446 [facility] Work Phone: 1([phone]) 488-570701-13-2022 Progress note Author Jazmin [facility] July 31, 2021 3:54pm Note Date/Time July 31, 2021 3 :07pm [facility] [place] [address] Hem/Onc Follow Up Note - OP Signed Patient: Tenisha Hanccok MR#: [id number] : 1975 Acct:[id number] Age/Sex: 46 / F Type: REG RCR [...] showed triple negative breast cancer, ER negative, NV negative, and HER 2 -. The patient was referred to Dr. Ismael Red for Ekatow-j-Zlkq which she has had placed. She has [facility]. Because of insurance reasons, she will be getting her treatment here at [facility]. She has had echocardiography as well. PET/CT [...] PO Q6H PRN 07/03/21 [History Confirmed 07/31/21] ckobsxo-lsznklpzsvruy-unbirsoq 250 mg-250 mg-65 mg tablet (Excedrin Migraine) [...] 07/16/21 12:50 Outside Labs: Outside labs from [facility] scanned in chart; no significant cytopenias or abnormalities (WBC- 8.0; Hgb 12.0; normal platelets; Normal electrolytes; renal/hepatic fxn) Assessment and Plan (1) Breast cancer Patient is a 46-year-old female presenting with 3 discernible masses by mammography (04/22/2021) with needle biopsy confirming triple negative breast cancer. She was initially see in consultation by Dr. Smith at [facility] in [place], [place]; however, due to insurance reasons the patient transferredcare to [facility]. She commenced neoadjuvant Carboplatin/Paclitaxel/Pembrolizumab therapy [...] scans ofthe chest/abdomen/pelvis on 07/16/2021 here at [facility]. There was no obvious evidence of distant [...] [facility] She has ongoing issues with low [...] for coordination of care (as documented) and qmby-og-ffyc counseling of patient and/or family. Dictated By: Jazmin Monsivais APRN DD/ 1454 Signed By: <Electronically signed by PETE Monsivais> 07/31/21 1554 [facility] Work Phone: 1([phone]) 374-245901-13-2022 Hospital Discharge instructionsAmbulatory Orders* Imaging on Disk Time Frame: 1 Day, Location: Determined By Patient * RISE Order Time Frame: 07/31/21, Location: Determined By Patient [facility] Work Phone: 1(291) 297-565812-28-2021 Progress note Author Salbador Phoenix [facility] July 15, 2021 1:32pm Note Date/Time July 15, 2021 1:28pm [facility] [place] [address] Hem/Onc Follow Up Note - OP Signed Patient: Tenisha Hancock MR#: [id number] : 1975 Acct:[id number] Age/Sex: 46 / F Type: REG RCR [...] is a 46-year-old female who works at [employer] who was referred here with triple [...] showed triple negative breast cancer, ER negative, NV negative, and H ER 2 -. The patient was referred to Dr. Ismael Red for Xcpeqe-q-Cmzw which she has had placed. She has seen my colleague Dr. Smith at the [facility] who recommended neoadjuvant chemotherapy and immunotherapy. Because of insurance reasons, she will be getting her treatment here at [facility]. She has had echocardiography as well. She [...] PO Q6H PRN 07/03/21 [History Confirmed 07/15/21] dyrdsyn-dlyduanxhymba-fvudsqur 250 mg-250 mg-65 mg tablet (Excedrin Migraine) [...] % (Auto) 68.7, Lymph % (Auto) 25.5, Mineral % (Auto) 3.9, Eos % (Auto) 1.0, Baso % (Auto) 0.9, Neut # (Auto) 6.9, Lymph # (Auto) 2.6, Mineral # (Auto) 0.4, Eos# (Auto) 0.1, Baso [...] July 29, 2021. The patient has her Vxctqu-q-Utcc and and has had echocardiography. We will [...] for coordination of care (as documented) and qhcf-un-alwm counseling of patient and/or family. Dictated By: Salbador Phoenix MD DD/ 1327 Signed By: <Electronically signed by MD Salbador Phoenix> 07/15/[address] [facility] Work Phone: 1(281) 642-801012-21-2021 Consult note Author Salbador Phoenix [facility] July 08, 2021 3:14pm Note Date/Time July 08, 2021 2:58pm [facility] [place] [address] Hem/Onc Consult Note - OP Signed Patient: Tenisha Hancock MR#: [id number] : 1975 Acct:[id number] Age/Sex: 46 / F Type: REG RCR [...] is a 46-year-old female who works at [employer] who is referred here with triple [...] showed triple negative breast cancer, ER negative, NV negative, and H ER 2 -. The patient was referred to Dr. Ismael Red for Qetczy-q-Rpvv which she has had placed. She has seen my colleague Dr. Smith at the [facility] who recommended neoadjuvant chemotherapy and immunotherapy. Because of insurance reasons, she will be getting her treatment here at [facility]. She has had echocardiography as well. She does have a palpable breast mass. It is in the lower mid quadrant of the right breast. [facility] - Medical History Medical History: [...] PO Q6H PRN 07/03/21 [History Confirmed 07/08/21] fjzkoyt-erkhgqwuhlffy-ysdhwoil 250 mg-250 mg-65 mg tablet (Excedrin Migraine) [...] cancer. She has seen medical oncology at [facility] who has recommended neoadjuvant chemotherapy [...] at this time. The patient has her Jrxsok-k-Fusk and and has had echocardiography. We will refer her for chemotherapy education and literature. She was requesting PET scan which is reasonable. I will also recommend genetic testing which can be done through [facility]. Our treatment plan will be pembrolizumab every [...] for coordination of care (as documented) and gpyi-fn-wwwk counseling of patient and/or family. Dictated By: Salbador Phoenix MD DD/ 1457 Signed By: <Electronically signed by MD Salbador Phoenix> 07/08/21 1124 [facility] Work Phone: Consult note Author Stacie Thomas [facility] March 19, 2022 10:56am Note Date/Time March 18, 2022 3: [address] [place] [address] [place] [address] Rad Onc Consult Note - OP Signed Patient: Tenisha Hancock MR#: [id number] : 1975 Acct:[id number] Age/Sex: 46 / F Type: REG RCR [...] 0 out of 5 lymph nodes involved. [id number]. In review of her operative note as [...] ductal carcinoma, 9 mm, provisional grade 3, ER/NV negative and HER2 negative. Per the available notes her BRCA testing was done through [facility] and was negative. Also appears the right breast mass was palpable in the lower mid quadrant of the breast. [facility]. Due to insurance reasons she received her systemic therapy here at [facility]. PET/CT was denied by insurance. CT scan of the chest abdomen pelvis on July 16, 2021 was negative for metastatic disease. Her clinical stage at presentation was cT2N0. June 11, 2021 patient did undergo an MRI in [place]. I do not have that report available [...] 0 out of 5 lymph nodes negative. [id number]. Pathology was negative for LVSI. Of note [...] work. Has no other breast related complaints. [facility] - Medical History Medical History: [...] Allergies Allergy (Verified 03/12/22 08:56) Home Medications rnjtrlv-wukmptatxsnom-lzeozzmf 250 mg-250 mg-65 mg tablet (Excedrin Migraine) [...] Thomas MD> 03/19/[address] [facility] Work Phone: Evaluation + Plan note No data available for this section General Surgery [place] Evaluation note* Diagnosis History of breast cancer- Primary Personal history of malignant neoplasm of breast Breast asymmetry following reconstructive surgery Disproportion of reconstructed breast Malignant neoplasm of right female breast, unspecified estrogen receptor status, unspecified site of breast (HCC)- [facility] Malignant neoplasm of right female breast, unspecified estrogen receptor status, unspecified site of breast (HCC) documented in this encounter [facility] Work Phone: evaluation note* Diagnosis Status post breast reconstruction- Primary Breast replaced by other means Status post breast lumpectomy Other postprocedural status Abnormal mammogram Abnormal mammogram, unspecified Malignant neoplasm of right female breast, unspecified estrogen receptor status, unspecified site of breast (HCC) documented in this encounter [facility] Work Phone: evalxzybts note* Diagnosis Malignant neoplasm of right female breast, unspecified estrogen receptor status, unspecified site of breast (HCC) documented in this encounter [employer] Phone: evaluation note* Diagnosis Onset Date Resolution Status Breast cancer chronic Encounter for antineoplastic immunotherapy chronic Encounter for chemotherapy management chronic 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 Chemotherapy-induced neutropenia resolved [facility] [employer] Work Phone: Evaluation note* Diagnosis Onset Date Resolution Status 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 acute Arthralgia of multiple sites, bilateral acute Encounter for coordination of complex care acute Breast cancer chronic Encounter for antineoplastic immunotherapy chronic Encounter for chemotherapy management chronic 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 Chemotherapy-induced neutropenia resolved [facility] [employer] Work Phone: Evaluation note* Diagnosis Onset Date Resolution Status 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 chronic Arthralgia of multiple sites, bilateral chronic Breast cancer chronic Encounter for antineoplastic immunotherapy chronic Encounter for chemotherapy management chronic Encounter for coordination of complex care chronic 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 Chemotherapy-induced neutropenia resolved [facility] [employer] Work Phone: Evaluation note* Diagnosis Onset Date Resolution Status 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 chronic Breast cancer chronic Encounter for antineoplastic immunotherapy chronic Encounter for chemotherapy management chronic Encounter for coordination of complex care chronic 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 Arthralgia of multiple sites, bilateral resolved Chemotherapy-induced neutropenia resolved [facility] [employer] Work Phone: Evaluation note* Diagnosis Onset Date Resolution Status Hypothyroidism (acquired) ac jania 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 chronic Breast cancer chronic Encounter for antineoplastic immunotherapy chronic Encounter for chemotherapy management chronic Encounter for coordination of complex care chronic 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 Arthralgia of multiple sites, bilateral resolved Chemotherapy-induced neutropenia resolved [facility] Work Phone: Evaluation noteNo assessment information available [facility] Work Phone: Evaluation note* Diagnosis Left wrist pain- Primary Pain in joint, forearm Pain of left thumb documented in this encounter [facility]* Diagnosis Moderate episode of recurrent major depressive disorder (CMS/HCC)- Primary 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 (CMS/HCC) Glucocorticoid deficiency Other hyperlipidemia (CMS/HCC) Chronic left-sided low back pain without sciatica- Primary Moderate episode of recurrent major depressive disorder (CMS/HCC) Chronic pain of left knee Left hip pain Pain in joint, pelvic region and thigh Class 1 obesity due to excess calories without serious comorbidity with body mass index (BMI) of 30.0 to 30.9 in adult 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 (CMS/HCC)- Primary Glucocorticoid deficiency Drug-induced adrenocortical insufficiency (CMS/HCC) Moderate episode of recurrent major depressive disorder (CMS/HCC) Overweight with body mass index (BMI) of 28 to 28.9 in adult Dental infection Left wrist pain Pain in joint, forearm documented in this encounter [facility] HealthcareEvaluation note* Diagnosis Moderate episode of recurrent major depressive disorder (CMS/HCC)- Primary 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 (CMS/HCC) Glucocorticoid deficiency Other hyperlipidemia (CMS/HCC) Chronic left-sided low back pain without sciatica- Primary Moderate episode of recurrent major depressive disorder (CMS/HCC) Chronic pain of left knee Left hip pain Pain in joint, pelvic region and thigh Class 1 obesity due to excess calories without serious comorbidity with body mass index (BMI) of 30.0 to 30.9 in adult 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 (CMS/HCC)- Primary Glucocorticoid deficiency Drug-induced adrenocortical insufficiency (CMS/HCC) Moderate episode of recurrent major depressive disorder (CMS/HCC) Overweight with body mass index (BMI) of 28 to 28.9 in adult Dental infection Krishna's neuroma, left- Primary Acquired deformity of left toe Acquired deformity of right toe documented in this encounter [facility] HealthcareEvaluation note* Diagnosis Moderate episode of recurrent major depressive disorder (CMS/HCC)- Primary 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 (CMS/HCC) Glucocorticoid deficiency Other hyperlipidemia (CMS/HCC) Chronic left-sided low back pain without sciatica- Primary Moderate episode of recurrent major depressive disorder (CMS/HCC) Chronic pain of left knee Left hip pain Pain in joint, pelvic region and thigh Class 1 obesity due to excess calories without serious comorbidity with body mass index (BMI) of 30.0 to 30.9 in adult 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 (CMS/HCC)- Primary Glucocorticoid deficiency Drug-induced adrenocortical insufficiency (CMS/HCC) Moderate episode of recurrent major depressive disorder (CMS/HCC) Overweight with body mass index (BMI) of 28 to 28.9 in adult Dental infection Gastroesophageal reflux disease, unspecified whether esophagitis present- Primary Other hyperlipidemia (CMS/HCC) Class 1 obesity due to excess calories without serious comorbidity with body mass index (BMI) of 30.0 to 30.9 in adult Moderate episode of recurrent major depressive disorder (CMS/HCC) Seasonal allergic rhinitis, unspecified trigger Anxiety and depression (CMS/HCC) documented [facility]* Diagnosis Encounter for wellness examination in adult- Primary documented in this [facility]* Diagnosis Well woman exam with routine gynecological exam Routine gynecological examination documented in this [facility]* Diagnosis Moderate episode of recurrent major depressive disorder (CMS/HCC)- Primary 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 (CMS/HCC) Glucocorticoid deficiency Other hyperlipidemia (CMS/HCC) Chronic left-sided low back pain without sciatica- Primary Moderate episode of recurrent major depressive disorder (CMS/HCC) Chronic pain of left knee Left hip pain Pain in joint, pelvic region and thigh Class 1 obesity due to excess calories without serious comorbidity with body mass index (BMI) of 30.0 to 30.9 in adult 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 (CMS/HCC)- Primary Glucocorticoid deficiency Drug-induced adrenocortical insufficiency (CMS/HCC) Moderate episode of recurrent major depressive disorder (CMS/HCC) Overweight with body mass index (BMI) of 28 to 28.9 in adult Dental infection Gastroesophageal reflux disease, unspecified whether esophagitis present- Primary Other hyperlipidemia (CMS/HCC) Class 1 obesity due to excess calories without serious comorbidity with body mass index (BMI) of 30.0 to 30.9 in adult Moderate episode of recurrent major depressive disorder (CMS/HCC) Seasonal allergic rhinitis, unspecified trigger Anxiety and depression (CMS/HCC) Seasonal allergic rhinitis, unspecified trigger documented [facility] Narrative - Reported* Type Description Date Medical History GERD (gastroesophageal reflux di sease) Medical History Depression Medical History Breast Cancer Surgical History gallbladder Surgical History Foot Surgery Hospitalization History gallbladder [email or web address] [facility] Work [facility] Work Phone: Hospital Discharge instructionsAmbulatory Orders* RISE Order Time Frame: 1 Day, Location: Determined By Patient [facility] Work Phone: Hospital Discharge instructions No data available for this section General Surgery [place] Progress note Author Kallie Chang [facility] March 12, 2022 4:36pm Note Date/Time March 12, 2022 9: 49am [facility] at [address] [address] Hem/Onc Follow Up Note - OP Signed Patient: Tenisha Hancock MR#: [id number] : 1975 Acct:[id number] Age/Sex: 46 / F Type: REG RCR [...] right mastopexy on 02/17/[address] Saunders/Drew ([facility]). Her pathology returned with no evidence of [...] Simons and has an appointment scheduled at [facility] to discuss josep flap surgery [...] overall good. BRCA testing was done through [facility] and is negative. She does have left [...] I willdefer to his impression and recommendations. CREEK: This is a 46 year old female, recently diagnosed with triple negative right breast cancer; currently undergoing neoadjuvant pembrolizumab, carboplatin AUC 4 and weekly paclitaxel x6 cycles, which commenced: 07/22/2021. This is a 46-year-old female who works at [employer] with triple negative breast cancer, referred for neoadjuvant chemotherapy. Mammogramon on April 22, 2021 showed 3 new focal masses with the largest measuring 2 cm in size in the right breast. 2 additional lesions measuring 1 cm and a second 0.9 cm were also seen. The patient was referred for biopsy. Needle biopsy showed triple negative breast cancer, ER negative, NV negative, and H ER 2 -. The patient was referred to Dr. Ismael Red for Ejovtt-a-Msnq which she has had placed. She has [facility] immunotherapy. Because of insurance reasons, she will be getting her treatment here at [facility]. She has had echocardiography as well. According the patient an MRI was obtained prior to neoadjuvant therapy while she was at [facility] we are requesting this prior [...] showed triple negative breast cancer, ER negative, NV negative, and HER 2 -. The patient was referred to Dr. Ismael Red for Sjfhfv-s-Wels which she has had placed. She has seen my [facility] immunotherapy. Because of insurance reasons, she will be getting her treatment here at [facility]. She has had echocardiography as well. PET/CT [...] 9 cycles --Original breast MRI obtained from [facility] from May 2021, follow-up breast [...] preoperatively in late December. 2. 02/17/2022 at [facility], Drs. Saunders/Drew: needle localized lumpectomy with oncoplastic [...] Negative for environmental allergies and food allergies. [facility] - History Attestation statement: The following information [...] Allergies Allergy (Verified 03/12/22 08:56) Home Medications vhxbukr-ibtuxfughsqoc-ldhmqkrt 250 mg-250 mg-65 mg tablet (Excedrin Migraine) [...] see in consultation by Dr. Smith at [facility] in [place], [place]; however, due to insurance reasons the patient [facility]. In reviewing notes from her prior physician [...] do not have records from this from [facility] in [place]. I am requesting this to evaluate her [...] testing returned negative from prior physicians at [facility]. BRCA testing negative Follow-up September is cycle 4 -day 1. Tolerance is overall good-- Proceed with cycle 4 with breast MRI prior to 2-week follow-up in comparison to baseline MRI. This will be useful in surgical planning. I am discussing her case with tertiary breast oncology Dr. Vinh Bucoi to see if he concurs withthis plan. [...] We will review her prior MRI from [facility] in May 2021 in comparison [...] toxicities. MRI was reviewed and [facility] tumor board with Dr. 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 Referring for adjuvant radiation then we [...] for coordination of care (as documented) and axwg-pe-vukl counseling of patient and/or family. Dictated By: Kallie Chang MD DD/ [id number] Signed By: <Electronically signed by MD Kallie Chang> 03/12/[address] [facility] Work Phone: Progress note Author Kallie Chang [facility] September 18, 2022 10:28pm Note Date/Time September 18, 2022 1:44 pm [facility] at [address] [address] Hem/Onc Follow Up Note - OP Signed Patient: Tenisha Hancock MR#: [id number] : 1975 Acct:[id number] Age/Sex: 47 / F Type: REG RCR [...] hydrocortisone 20mg am/10mg pm. 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 We may [...] right mastopexy on 02/17/2022 by Drs. Saunders/Drew ([facility]). Her pathology returned with no evidence of [...] Simons and has an appointment scheduled at [facility] to discuss josep flap surgery [...] overall good. BRCA testing was done through [facility] and is negative. She does have left [...] I willdefer to his impression and recommendations. CREEK: This is a now 47 year old female, recently diagnosed with triple negative right breast cancer; currently undergoing neoadjuvant pembrolizumab, carboplatin AUC 4and weekly paclitaxel x6 cycles, which commenced: 07/22/2021. This is a 46-year-old female who works at [employer] with triple negative breast cancer, referred for neoadjuvant chemotherapy. Mammogramon on April 22, 2021 showed 3 new focal masses with the largest measuring 2 cm in size in the right breast. 2 additional lesions measuring 1 cm and a second 0.9 cm were also seen. The patient was referred for biopsy. Needle biopsy showed triple negative breast cancer, ER negative, NV negative, and H ER 2 -. The patient was referred to Dr. Ismael Red for Wlypgl-s-Gose which she has had placed. [facility]. Because of insurance reasons, she will be getting her treatment here at [facility]. She has had echocardiography as well. According the patient an MRI was obtained prior to neoadjuvant therapy while she was at [facility] we are requesting this prior [...] showed triple negative breast cancer, ER negative, NV negative, and HER 2 -. The patient was referred to Dr. Ismael Red for Wioikw-i-Gjce which she has had placed. She has seen my colleague Dr. Smith at the [facility] recommended neoadjuvant chemotherapy and immunotherapy. Because of insurance reasons, she will be getting her treatment here at [facility]. She has had echocardiography as well. PET/CT [...] 9 cycles --Original breast MRI obtained from [facility] from May 2021, follow-up breast [...] preoperatively in late December. 2. 02/17/2022 at [facility], Drs. Saunders/Shantal: needle localized lumpectomy with oncoplastic [...] Allergies Allergy (Verified 09/18/22 13:38) Home Medications igpnsab-wmmgfhlmaivlp-dgtkjarq 250 mg-250 mg-65 mg tablet (Excedrin Migraine) [...] % (Auto) 91.1, Lymph % (Auto) 6.2, Mineral % (Auto) 2.3, Eos % (Auto) 0.1, Baso % (Auto) 0.3, Nucleat RBC Rel Count 0.1, Neut # (Auto) 10.4 H, Lymph # (Auto) 0.7 L, Mineral # (Auto) 0.3, Eos # (Auto) 0.0, [...] see in consultation by Dr. Smith at [facility] in [place], [place]; however, due to insurance reasons the [facility]. In reviewing notes from her [...] do not have records from this from [facility] in [place]. I am requesting this to evaluate her [...] testing returned negative from prior physicians at [facility]. BRCA testing negative Follow-up September is cycle [...] We will review her prior MRI from [facility] in May 2021 in comparison [...] toxicities. MRI was reviewed and [facility] tumor board with Dr. 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 Completed adjuvant radiation then we resumed [...] with sentinel lymph node biopsy 02/17/2022 in [place]. Adjuvant radiation completed 05/04-06/16/2022. Total of 30 [...] for coordination of care (as documented) and bacv-uc-bczy counseling of patient and/or family. Dictated By: Kallie Chang MD DD/ [id number] Signed By: <Electronically signed by MD Kallie Chang> 09/18/[address] [facility] Work Phone: Progress note No data available for this section General Surgery Kenna Reason for visit NarrativeReferral Dr. Phoenix T12 [facility] [employer] Other Summary Purpose Family History Relationship Condition Age at Onset Recorded Date/T vanessa brother Malignant neoplasm of lung Unknown father Malignant neoplasm Unknown Not Specified Chronic obstructive pulmonary disease Un known Relationship Condition Age at Onset Recorded Date/T vanessa brother Malignant neoplasm of lung Unknown father Malignant neoplasm Unknown Not Specified Chronic obstructive pulmonary disease Un known Unknown Advance Directives Advance Directive Response Recorded Date/ Time Advance [...] WO CONTRAST Diana Murguia P, DO [address] [place] [address] Referral ID Status Reason Start Date Expiration Date Visits Re quested Visits Authorized [id number] Closed 02/03/2022 01/28/2023 1 1 Chief Complaint [...] or prosecute any alcohol or drug abuse patient.[facility] System[facility] the event this information is protected by the Federal Confidentiality of Alcohol and Drug Abuse Patient Records regulations: The Federal rules restrict any use of the information to criminally investigate or prosecute any alcohol or drug abuse patient.[facility] SystemIn the event this information is protected by the Federal Confidentiality of Alcohol and Drug Abuse Patient Records regulations: The Federal rules restrict any use of the information to criminally investigate or prosecute any alcohol or drug abuse patient.[facility] SystemIn the event this information is protected by the Federal Confidentiality of Alcohol and Drug Abuse Patient Records regulations: The Federal rules restrict any use of the information to criminally investigate or prosecute any alcohol or drug abuse patient.[facility] Reason for Visit (unrecogniz ed section and content) Reason Comments Appointment Reason Comments Consult Specialty Diagnoses / Procedures Referred By Ramirez flores Referred To Contact Radiology Diagnoses Malignant neoplasm of right female breast, unspecified estrogen receptor status, unspecified site of breast (HCC) Procedures MRI BREAST BILATERAL W WO CONTRAST Diana Murguia DO 1952 [address] [address] Referral ID Status Reason Start Date Expiration Date Visits Re quested Visits Authorized [id number] Closed 02/03/2022 01/28/2023 1 1 Specialty Diagnoses / Procedures Referred By Ramirez flores Referred To Contact Diagnoses Malignant neoplasm of right female breast, unspecified estrogen receptor status, unspecified site of breast (HCC) Malignant neoplasm of right female breast, unspecified estrogen receptor status, unspecified site of breast (HCC) [C50.911] Procedures NV MASTECTOMY, PARTIAL NV OFFICE/OUTPT VISIT,PROCEDURE ONLY NV BREAST REDUCTION NEEDLE DIRECTED @ 800 RIGHT BREAST LUMPECTOMY WITH SENTINEL NODE BIOPSY @ 830 WITH FROZEN SECTION AND POSSIBLE AXILLARY LYMPH NODE DISSECTION ONCOPLASTIC RECONSTRUCTION RIGHT BREAST WITH JOSE R INCISIONAL VAC AND PEC BLOCK Diana Murguia DO [address] [facility] [address] [place] [address] [facility] [address] [place] [address] Referral ID Status Reason Start Date Expiration Date Visits Re quested Visits Authorized 1 1 Specialty Diagnoses / Procedures Referred By Ramirez flores Referred To Contact Diagnoses Malignant neoplasm of unspecified site of right female breast Procedures HC NM LYMPHATICS,LYMPH GLAND IMAGING [facility] Nuclear Medicine [address] [place] [address] [facility]ALLif[facility] Technology[facility] [address] [place] [address] Referral ID Status Reason Start Date Expiration Date Visits Re quested Visits Authorized [id number] 1 1 Reason Comments Pain Reason Comments Foot Orthotics Orthotics P/U Reason Comments Follow-up Reason Comments Gynecologic Exam Reason Comments Med Change Request Care Teams (unrecognized sec tion and content) [...] Active Kallie Chang MD Attending Provider Active Bobcat Driver/Labor Relationship Specialty Start Date End Date Jasbir Limon MD [address] [place] [phone] (Fax) PCP - General 10/28/00 Bobcat Driver/Labor Relationship Specialty Start Date End Date Jasbir Limon MD [address] [place] [address] (Fax) PCP - General 10/28/00 Bobcat Driver/Labor Relationship Specialty Start Date End Date Jasbir Limon MD [address] [place] [address] (Fax) PCP - General 10/28/00 Bobcat Driver/Labor Relationship Specialty Start Date End Date Eliel Hurd [address] [id number] PCP - General Specialist 02/04/22 Bobcat Driver/Labor Relationship Specialty Start Date End Date Eliel Hurd [address] [place] [address] PCP - General Specialist 02/04/22 Bobcat Driver/Labor Relationship Specialty Start Date End Date Eliel Hurd [address] [place] [address] PCP - General Specialist 02/04/22 Team Status: [...] Active Adam Vickers DO Attending Provider Active Bobcat Driver/Labor Relationship Specialty Start Date End Date Shaikh España MD PCP - General Internal Medicine 11/24/22 Team Status: Active Member Role Status Dates Shaikh Patria MD Primary Care Provider Active Team Status: Inactive Member Role Status Dates Chidi Rincon Attending Provider Active Start: 2023 End: January 10, 2024 Shaikh Patria MD Primary Care Provider Active Start: January 10, 2024 End: January 10, 2024 Bobcat Driver/Labor Relationship Specialty Start Date End Date Shaikh España MD [facility] [place] [address] PCP - General Internal Medicine 10/07/23 Bobcat Driver/Labor Relationship Specialty Start Date End Date Shaikh España MD [address] [place] [address] PCP - General Internal Medicine 10/07/23 Bobcat Driver/Labor Relationship Specialty Start Date End Date Shaikh España MD [address] [place] [address] PCP - General Internal Medicine 10/07/23 Bobcat Driver/Labor Relationship Specialty Start Date End Date Chinmay Muñoz MD [address] [place] [address] PCP - General Family Medicine 06/01/24 Demetra Sparrow NP [address] [place] [address] Nurse Practitioner Family Medicine 06/01/24 Bobcat Driver/Labor Relationship Specialty Start Date End Date Chinmay Muñoz MD [address] [place] [address] PCP - General Family Medicine 06/01/24 Demetra Sparrow NP [address] [place] [address] Nurse Practitioner Family Medicine 06/01/24 Bobcat Driver/Labor Relationship Specialty Start Date End Date Chinmay Muñoz MD [address] [place] [address] PCP - General Family Medicine 06/01/24 Demetra Sparrow NP [address] [place] [address] Nurse Practitioner Family Medicine 06/01/24 Bobcat Driver/Labor Relationship Specialty Start Date End Date Chinmay Muñoz MD [address] [place] [address] PCP - General Family Medicine 06/01/24 Demetra Sparrow NP [address] [place] [address] Nurse Practitioner Family Medicine 06/01/24 Bobcat Driver/Labor Relationship Specialty Start Date End Date Shaikh España MD [address] [place] [address] PCP - General Internal Medicine 10/07/23 Bobcat Driver/Labor Relationship Specialty Start Date End Date Shaikh España MD [address] [place] [address] PCP - General Internal Medicine 10/07/23 Bobcat Driver/Labor Relationship Specialty Start Date End Date Shaikh España MD [address] [place] [address] PCP - General Internal Medicine 10/07/23 Bobcat Driver/Labor Relationship Specialty Start Date End Date Chinmay Muñoz MD [address] [place] [address] PCP - General Family Medicine 06/01/24 Demetra Sparrow NP [address] [place] [address] Nurse Practitioner Family Medicine 06/01/24 INFORMATION SOURCE (unrecogn ized section and content) DATE CREATED AUTHOR 02/03/2022 [facility] DATE CREATED AUTHOR AUTHOR'S ORGANIZ ATION 02/21/2022 [facility] DATE CREATED AUTHOR AUTHOR'S ORGANIZ ATION 03/24/2022 [facility] DATE CREATED AUTHOR AUTHOR'S ORGANIZ ATION 12/02/2022 [facility] DATE CREATED AUTHOR AUTHOR'S ORGANIZ ATION 03/09/2023 [facility] DATE CREATED AUTHOR AUTHOR'S ORGANIZ ATION 12/24/2023 [facility] DATE CREATED AUTHOR AUTHOR'S ORGANIZ ATION 03/11/2024 [facility] DATE CREATED AUTHOR AUTHOR'S ORGANIZ ATION 03/18/2024 [facility] DATE CREATED AUTHOR AUTHOR'S ORGANIZ ATION 06/29/2024 [facility] DATE CREATED AUTHOR AUTHOR'S ORGANIZ ATION 07/10/2024 [facility] Ordered Prescriptions (unrec ognized section and content) [...] 1047 (Given - Provid er: Valerie Davila, SCREW CUTTER - WEATHER STRIP MECHANIC) diphenhydrAMINE (BENADRYL) injection 12.5 mg (COMPLETED) 12.5 [...] Provider: PETE Pereira CRNA)1615 (Stopped - Provider: Heber Baron RN) [...] BE BASED ON THE PRIMARY CLINICAL RECORDS. [employer] provides no warranty or guarantee of the accuracy or completeness of information in this document.
[2024-09-22 14:26] LABS: Basophils Percent Auto 0.7 % (0.2-2.0); Eosinophils Absolute Auto 0.2 10^3/uL (0.0-0.7); Eosinophils Percent Auto 2.8 % (0.9-7.0); Hematocrit 37.4 % (36.0-48.0); Hemoglobin 12.6 g/dL (12.0-16.0); Immature Granulocytes Abs Auto 0.01 10^3/uL (0.00-0.03); Immature Granulocytes Pct Auto 0.2 % (0.0-0.5); Lymphocytes Absolute Auto 2.4 10^3/uL (1.2-3.8); Lymphocytes Percent Auto 40.3 % (20.5-60.0); Mean Corpuscular HGB Conc 33.7 g/dL (29.9-35.2); Mean Corpuscular Hemoglobin 30.4 pg (26.7-34.0); Mean Corpuscular Volume 90.3 fL (81.0-99.0); Mean Platelet Volume 9.3 fL (9.5-13.5); Monocytes Absolute Auto 0.5 10^3/uL (0.3-0.8); Neutrophils Absolute Auto 2.9 10^3/uL (1.4-6.5); Platelet Count 231 10^3/uL (150-450); Red Blood Count 4.14 10^6/uL (4.20-5.40)
[2024-09-22 14:44] LABS: Alanine Aminotransferase 8 U/L (14-59); Albumin Level 3.5 g/dL (3.4-5.0); Alkaline Phosphatase 101 U/L (46-116); Anion Gap 12.5; Aspartate Amino Transferase 27 U/L (15-37); BUN Creatinine Ratio 18.6; Bilirubin Total 0.4 mg/dL (0.2-1.0); Carbon Dioxide 26.5 mmol/L (21.0-32.0); Chloride 104 mmol/L (98-107); Estimated GFR (African America >60 (>=60 mL/min/1.73m^2); Estimated GFR (Non-African Ame >60 (>=60 mL/min/1.73m^2); Globulin 3.4 g/dL; Glucose 108 mg/dL (74-106); Sodium 139 mmol/L (136-145); Total Protein 6.9 g/dL (6.4-8.2)
== END 2024-09-22 14:09 | disposition home or self-care (01) ==
LOC: LAB 14:09
PROVIDERS: Visit Provider Internal Medicine Hematology & Oncology
DX: C50.911 Malignant neoplasm of unspecified site of right female breast (principal); M25.50 Pain in unspecified joint; M13.0 Polyarthritis, unspecified
CPT/HCPCS: 36415; 80053; 82306; 85025

== ENCOUNTER 2024-09-28 07:33 | Outpatient (RCR) | payer BC, SELFPAY ==
--- OUTSIDE RECORDS SUMMARY | 2024-09-28 07:37 | XMS_ITS | CCD ---
Author Organization [facility] Care Team Providers Care Carbonizer Tester Name Role Phone Jasbir Limon Primary Care Provider [phone] Franco Stokes Unavailable Jasbir Limon MD Primary Care Provider Eliel Hurd Primary Care Provider CASHEN, DIANA P Admitting Unavailable CASHEN, DIANA P Attending Unavailable ELIEL HURD Primary Care Unavailable SHANTAL, DIANA P Referring Unavailable ELIEL HURD Primary Care Unavailable MD Eliel Hurd Primary Care Provider [phone] MD Eliel Hurd Referring Provider [phone] MD Kallie Chang Attending Provider NON STAFF Attending Provider Unavailable MD Eliel Hurd Primary Care Provider MD Eliel Hurd Referring Provider MD Kallie Chang Attending Provider CASHCHIOMA, DIANA P Referring Unavailable ELIEL HURD Primary Care Unavailable ELIEL HURD Primary Care Unavailable CASHEN, DIANA P Referring Unavailable MD Eliel Hurd Primary Care Provider MD Larissa Saunders Attending Provider MD Eliel Hurd Referring Provider MD Kallie Chang Attending Provider MD Eliel Hurd Primary Care Provider [phone] MD Larissa Saunders Attending Provider MD Eliel Hurd Referring Provider MD Kallie Chang Attending Provider MD Eliel Hurd Primary Care Provider DO Adam Vickers Attending Provider MD Eliel Hurd Referring Provider MD Kallie Chang Attending Provider MD Eliel Hurd Referring Provider [phone] MD Kallie Chang Attending Provider MD Eliel Hurd Referring Provider MD Kallie Chang Attending Provider MD Eliel Hurd Primary Care Provider [phone] MD Eliel Hurd Referring Provider MD Kallie Chang Attending Provider [phone] MD Eliel Hurd Primary Care Provider [...] Unavailable SERGEY ., DR FREITAS Attending Unavailable BROOKHAVEN, DR KRISTA Delgado Consulting Unavailable HURD ., [...] Care Provider MD Eliazar Gibson Attending Provider Patria POZO, Primary Care Provider SHAIKH ESPAÑA Primary Care Physician SYDNIE COLORADO Primary Care Unavailable Ismael BERMAN Attending Unavailable Ismael BERMAN Attending Unavailable SYDNIE COLORADO Primary Care Unavailable Chidi Rincon Attending Provider MD To Españaikh Primary Care Provider AWA [...] NGUYỄN Attending Unavailable DEMETRA SPARROW Attending UnavailShaikh Rsos Primary Care Unavailable Chidi Rincon Attending Unavailable Chidi Rincon Admitting Unavailable Allergies Allergy Classification Reported Allergen(s) Allergy Type Date of Onset Reaction(s) Facility (1 source) No Known Medication Allergies; Translations: [No Known Medication Allergies] Propensity to adverse reactions (disorder) [facility] Repository Medications Current Medications Medication Drug Class(es) [...] every six hours as needed for headache xtifrdw-rhnekfohhyuwc-wfwcjtka (EXCEDRIN MIGRAINE) 250-250-65 MG per tablet Take [...] Facility XR Wrist - left 2 [facility] Result: 05/02/2024: Multiple views of left wrist showed no acute bony process including but not limited to fracture and/or dislocation. Proximal and distal carpal rows appeared to be anatomic. Impression: No acute bony process, left wrist. Jacqueline Chavez FISH CULTURIST-CHANGE CONTROL ANALYST [facility] XR Wrist - left 2 [facility] Radiology Study observation (narrative) [facility] IGP,APTIMA HPV,AGE GDLNon AGE GDLN ACOG TESTING Note . [facility] Comment on above: TESTS RESULT FLAG UN ITS REF RANGE LAB Clinician Provided Cytology Information Source.............Cervix;Endocervix No. of containers..01 ThinPrep Vial Age Algo ACOG Beata... 3065 01 FLAG LEGEND: L-Low Normal,H-High Normal,LL-Alert Low,HH-Alert High <-Panic Low,>-Panic High,A-Abnormal,AA-Critical Abnormal Performed at: 01 =[address] [address] Radha Guillen MD, HPV APTIMA Negative Negative [facility] Comment on above: This nucleic acid am plification test detects fourteen high- risk HPV types (16,18,31,33,35,39,45,51,52,56,58,59,66,68) without differentiation. Performed at: =[address] [id number] Workers Compensation Attorney: Radha Guillen MD, Phone: [phone] Performed at: [address] [id number] Workers Compensation Attorney: Radha Guillen MD, Phone: [phone] IGP, APTIMA HPV, RFX 16/18,45 Note . [facility] Comment on above: TESTS RESULT FLAG UN ITS REF RANGE LAB DIAGNOSIS: 02 NEGATIVE FOR INTRAEPITHELIAL LESION OR MALIGNANCY. Specimen adequacy: 02 Satisfactory for evaluation. Endocervical and/or squamous metaplastic cells (endocervical component) are present. Performed by: 02 Josephine Cazares, Outside Energy Sales Representatives (ASCP) . 02 Note: Note 02 The [...] High <-Panic Low,>-Panic High,A-Abnormal,AA-Critical Abnormal Performed at: [facility] [address] [address] Radha Guillen MD, BRUSH-SPATULA CERVIX ENDOCERVIX [facility] CORTISOLon 03-23-2024 Interpretation and review of laboratory results Abnormal [facility] CORTISOL 0.9 ug/dL Abnormal 6.2 - 19.4 ug/dL [facility] Comment on above: Please Note: The ref erence interval and flagging for this test is for an AM collection. If this is a PM collection please use: Cortisol PM: 2.3-11.9 Performed at: [facility] [address] [id number] Workers Compensation Attorney: Red Sena PhD, Phone: [phone] [facility] 36on 03-15-2024 36 Called patient to inform regarding lab results. Left voice message. FSH is elevated consistent with menopause. Prolactin normal. No further testing needed. Normal [facility] Telephoneon 03-15-2024 Telephone [id number] Tenisha Hancock 1975 F Date Provider Department Center 03/15/2024 ERIKA CABRERA [facility] ENDOCR [facility] No family history on file Reason for Visit and Comments: Labs [[id number]] Normal [facility] 37on 03-09-2024 37 Please take your [...] intramuscular injection (Solu-Cortef Act-O-Vial): Solu-Cortef Emergency Injection [email or web address] Normal [facility] E2 [Mass/Vol]on 03-09-2024 ESTRADIOL 67.8 pg/mL [facility] Comment on above: Result Comment: NON- [...] assay. Performed By: #### 2 842-3, 2243-4, 64168-2 #### [facility] ([id number]) [address], [address] [place] [address] Follitropin Qnon 03-09-2024 FOLLICLE STIM HORMONE 58.1 mIU/mL Normal Pr [facility] Comment on above: Result Comment: NORMAL FEMALE Luteal 1.8-5.1 mIU/mL Follicular 3.8-8.8 mIU/mL Mid Cycle 4.5-22.5 mIU/mL Post [place] 16.7-113.6 mIU/mL Performed By: #### 2 842-3, 2243-4, 04100-5 #### [facility] ([id number]) [address], [address] [place] [address] Office Visiton 03-09-2024 Follow-up visit [id number] Tenisha Hancock 1975 F Date Provider Department Center 03/09/2024 [id number] [facility] ENDOCR [facility] No family history on file Level of Service:33138 IN OFFICE/OUTPATIENT NEW MODERATE MDM 45 MINUTES Reason for Visit and Comments: New Patient [632] Normal [facility] Prolactin [Mass/Vol]on 03-09 PROLACTIN 4.8 ng/mL Normal 3.3-26.7 [facility] Comment on above: Performed By: #### 2 842-3, 2243-4, 11571-6 #### [facility] ([id number]) [address], [address] [place] [address] MR breast BI wo/w con CADon 01-11-2024 MR breast BI wo/w con CAD [facility] [place] [address] MRI Report Signed Patient: Tenisha Hancock MR#: [id number] : 1975 Acct:[id number] Age/Sex: 48 / F ADM Date: 01/10/24 Loc: MR Room: Type: [facility] Attending Dr: Chidi Rincon Copies [...] All imaged data was reviewed using the [employer] system. The postcontrast images were subtracted and [...] 1047 Signed By: 01/11/24 1059 Normal [facility] Outside Colonoscopyon 2023 Outside Colonoscopy [id number]#1. 00TIFF Normal [facility] Reportson 12-23-2023 Lab Reports [id number]#1. 00TIFF Normal [facility] Reminderson 12-23-2023 Reminders - From: Andie Hodge LPN To: Jose - Clinical; Sent: 12/23/2023 12:00:00 EDT Show up: 11/20/2033 07:00:00 EDT Subject: colonoscopy recall Due Date/Time: 12/21/2033 07:00:00 EDT Reminder/Recall Patient due for screening colonoscopy 12/21/2033. Normal [facility] Insurance Correspondenceon 0 12-08-2023 Insurance Correspondence [id number]# 1.00TIFF [facility] Consent for Procedure/Surger yon 11-04-2023 Consent for Procedure/Surgery [id number]#1 .00TIFF [facility] Facesheeton 11-04-2023 Facesheet [id number]# 1.00TIFF [facility] Ambulatory Visit Summaryon 0 11-03-2023 Ambulatory [...] choosing us for your care. Normal [facility] Physician Referralon 024 Physician Referral [id number]#1 .00TIFF Normal [facility] Physician Referralon 024 Physician Referral [id number]#1. 00TIFF Normal [facility] Physician Referralon 023 Physician Referral [id number]#1 .00TIFF Normal [facility] Physician Referralon 023 Physician Referral [id number]#1 .00TIFF Normal [facility] C reactive protein [Mass/vol ume] in Serum or PlasmaOrdered By: Eliazar Gibson on 04-07-2023 CRP [Mass/Vol] < 0.5 mg/dL 0.0-0.5 [facility] Erythrocyte sedimentation ra te by Photometric methodOrdered By: Eliazar Gibson on 04-07-2023 ESR Photometric method (Bld) [Velocity] 22 mm/hr 0-19 [facility] Retail - Clinical Noteon Retail - Clinical Note [id number]#1. 00CD:127 Normal [facility] Serum or plasma thyroperoxid ase antibody assay (units/volume)Ordered By: Elizabeth Pérez on 11-16-2022 TPO Ab Qn 13 [IU]/mL 0-34 [facility] Comment on above: Performed at: [place] [id number] Director: Red Sena PhD, Phone: [phone] Thyrotropin [Units/volume] i n Serum or PlasmaOrdered By: Elizabeth Pérez on 11-16-2022 TSH Qn 1.03 m[IU]/L 0.45-5.33 [facility] Thyroxine (T4) free [Mass/vo lume] in Serum or PlasmaOrdered By: Elizabeth Pérez on 11-16-2022 Free T4 [Mass/Vol] 1.03 ng/dL 0.61-1.12 [facility] Triiodothyronine (T3) Free [ Mass/volume] in Serum or PlasmaOrdered By: Elizabeth Pérez on 11-16-2022 Free T3 [Mass/Vol] 4.39 pg/mL 2.50-3.90 [facility] Albumin [Mass/volume] in Bod y fluidOrdered By: Kallie Chang on 09-16-2022 Albumin (Body fld) [Mass/Vol] 3.7 g/dL 3.2-5.5 [facility] Alkaline phosphatase [Enzyma tic activity/volume] in Serum or PlasmaOrdered By: Kallie Chang on 09-16-2022 ALP [Catalytic activity/Vol] 85 U/L 32-92 [facility] Aspartate aminotransferase [ Enzymatic activity/volume] in Serum or PlasmaOrdered By: Kallie Chang on 09-16-2022 AST [Catalytic activity/Vol] 20 U/L 10-42 [facility] Basophils Auto (Bld) [#/Vol] Ordered By: Kallie Chang on 09-16-2022 Basophils (Bld) [#/Vol] 0.0 10*3/uL 0.0-0.2 [facility] Basophils/100 WBC Auto (Bld) Ordered By: Kallie Chang on 09-16-2022 Basophils/100 WBC (Bld) 0.3 % . [facility] Bilirubin.total [Mass/volume ] in Serum or PlasmaOrdered By: Kallie Chang on 09-16-2022 Bilirubin [Mass/Vol] 0.6 mg/dL 0.3-1.2 [facility] Calcium [Mass/volume] in Ser um or PlasmaOrdered By: Kallie Chang on 09-16-2022 Calcium [Mass/Vol] 9.2 mg/dL 8.2-10.2 [facility] Carbon dioxide, total [Moles /volume] in Serum or PlasmaOrdered By: Kallie Chang on 09-16-2022 CO2 [Moles/Vol] 23.1 mmol/L 22.0-30.0 [facility] Chloride [Moles/volume] in S nathaly or PlasmaOrdered By: Kallie Chang on 09-16-2022 Chloride [Moles/Vol] 102 mmol/L 95-114 [facility] Creatinine and Glomerular fi ltration rate.predicted panel (S/P/Bld)Ordered By: Kallie Chang on 09-16-2022 Creatinine [Mass/Vol] 0.98 mg/dL 0.44-1.03 [facility] Eosinophils Auto (Bld) [#/Vo l]Ordered By: Kallie Chang on 09-16-2022 Eosinophils (Bld) [#/Vol] 0.0 10*3/uL 0.0-0.45 [facility] Eosinophils/100 WBC Auto (Bl d)Ordered By: Kallie Chang on 09-16-2022 Eosinophils/100 WBC (Bld) 0.1 % . [facility] Erythrocyte distribution wid th Auto (RBC) [Ratio]Ordered By: Kallie Chang on 09-16-2022 Erythrocyte distribution width (RBC) [Ratio] 15.1 % 11.9-15.3 [facility] Estimated glomerular filtrat ion rate (GFR) non- AmericanOrdered By: Kallie Chang on 09-16-2022 GFR/1.73 sq M.predicted among non-blacks MDRD (S/P/Bld) [Vol rate/Area] > 60 mL/Min [facility] Globulin Calc (S) [Mass/Vol] Ordered By: Kallie Chang on 09-16-2022 Globulin (S) [Mass/Vol] 2.8 g/dL [facility] Glucose [Mass/volume] in Ser um or PlasmaOrdered By: Kallie Chang on 09-16-2022 Glucose [Mass/Vol] 176 mg/dL 70-100 [facility] Comment on above: ADA recommended refe rence rangeRandom Glucose Reference Range is dependent on time and content of last meal. Glucose of more than 200 mg/dL in a nonstressed, ambulatory subject supports the diagnosis of Diabetes Mellitus. Hematocrit Auto (Bld) [Volum e fraction]Ordered By: Kallie Chang on 09-16-2022 Hematocrit (Bld) [Volume fraction] 38.3 % 34.0-46.4 [facility] Hemoglobin [Mass/volume] in BloodOrdered By: Kallie Chang on 09-16-2022 Hemoglobin (Bld) [Mass/Vol] 12.5 g/dL 11.8-15.4 [facility] Leukocytes [#/volume] correc annie for nucleated erythrocytes in Blood by Automated counOrdered By: Kallie Chang on 09-16-2022 WBC corrected for nucl RBC Auto (Bld) [#/Vol] 11.5 10*3/uL 3.8-11.6 [facility] Lymphocytes Auto (Bld) [#/Vo l]Ordered By: Kallie Chang on 09-16-2022 Lymphocytes (Bld) [#/Vol] 0.7 10*3/uL 1.00-4.8 [facility] Lymphocytes/100 WBC Auto (Bl d)Ordered By: Kallie Chang on 09-16-2022 Lymphocytes/100 WBC (Bld) 6.2 % . [facility] MCH Auto (RBC) [Entitic mass ]Ordered By: Kallie Chang on 09-16-2022 MCH (RBC) [Entitic mass] 30.2 pg 24.7-34.3 [facility] MCHC Auto (RBC) [Mass/Vol]Or dered By: Kallie Chang on 09-16-2022 MCHC (RBC) [Mass/Vol] 32.7 g/dL 32.0-35.0 [facility] MCV Auto (RBC) [Entitic vol] Ordered By: Kallie Chang on 09-16-2022 MCV (RBC) [Entitic vol] 92.4 fL 80-100 [facility] Monocytes Auto (Bld) [#/Vol] Ordered By: Kallie Chang on 09-16-2022 Monocytes (Bld) [#/Vol] 0.3 10*3/uL 0.0-0.8 [facility] Monocytes/100 WBC Auto (Bld) Ordered By: Kallie Chang on 09-16-2022 Monocytes/100 WBC (Bld) 2.3 % . F [facility] Neutrophils Auto (Bld) [#/Vo l]Ordered By: Kallie Chang on 09-16-2022 Neutrophils (Bld) [#/Vol] 10.4 10*3/uL 1.8-7.7 [facility] Neutrophils/100 WBC Auto (Bl d)Ordered By: Kallie Chang on 09-16-2022 Neutrophils/100 WBC (Bld) 91.1 % . [facility] No Panel InformationOrdered By: Kallie Chang on 09-16-2022 Adrenocorticotropic Hormone <1.5 pg/mL 7.2-63.3 [facility] Comment on above: ACTH reference inter ervin for samples collected between 7 and10 AM.Performed at: [facility] [id number] Director: Red Sena PhD, Phone: [phone] Estimated GFR () > 60 mL/Min [facility] Comment on above: GFR estimated refere nce range: According to KDOQI guidelines, <60 ml/min/1.73m2 is sufficient to diagnose a patient with chronic kidney disease. Pharmacy Creatinine Clearance (Chem 72.74 [facility] Nucleated erythrocytes [Pres ence] in Blood by Automated countOrdered By: Kallie Chang on 09-16-2022 Nucleated RBC Auto Ql (Bld) 0.1 /100{WBC} 0-0.5 [facility] Platelet mean volume Auto (B ld) [Entitic vol]Ordered By: Kallie Chang on 09-16-2022 Platelet mean volume (Bld) [Entitic vol] 6.9 fL 6.3-10.7 [facility] Platelets Auto (Bld) [#/Vol] Ordered By: Kallie Chang on 09-16-2022 Platelets (Bld) [#/Vol] 287 10*3/uL 150-450 [facility] Potassium [Moles/volume] in Serum or PlasmaOrdered By: Kallie Chang on 09-16-2022 Potassium [Moles/Vol] 4.3 mmol/L 3.5-5.1 [facility] Protein [Mass/volume] in Ser um or PlasmaOrdered By: Kallie Chang on 09-16-2022 Protein [Mass/Vol] 6.5 g/dL 6.1-7.9 [facility] RBC Auto (Bld) [#/Vol]Ordere d By: Kallie Chang on 09-16-2022 RBC (Bld) [#/Vol] 4.14 10*6/uL 3.60-5.00 [facility] Random cortisol measurementO rdered By: Kallie Chang on 09-16-2022 Cortisol [Mass/Vol] 3.7 ug/dL [facility] Comment on above: Reference range: AM 6 - 24 ug/dl PM <10 ug/dl Serum or plasma alanine napoles otransferase measurement without P-5'-P (enzymatic activiOrdered By: Kallie Chang on 09-16-2022 ALT No additional P-5'-P [Catalytic activity/Vol] 16 U/L 10-60 [facility] Serum or plasma albumin/glob ulin mass ratioOrdered By: Kallie Chang on 09-16-2022 Albumin/Globulin [Mass ratio] 1.3 {ratio} [facility] Serum or plasma anion gap de terminationOrdered By: Kallie Chang on 09-16-2022 Anion gap [Moles/Vol] 13.2 mmol/L 6.0-15.0 [facility] Sodium [Moles/volume] in Ser um or PlasmaOrdered By: Kallie Chang on 09-16-2022 Sodium [Moles/Vol] 134 mmol/L 136-146 [facility] TSH DL <= 0.005 mIU/L QnOrde red By: Kallie Chang on 09-16-2022 TSH Qn 0.51 m[IU]/L 0.45-5.33 [facility] Thyroxine (T4) free [Mass/vo lume] in Serum or PlasmaOrdered By: Kallie Chang on 09-16-2022 Free T4 [Mass/Vol] 0.84 ng/dL 0.61-1.12 [facility] Urea nitrogen [Mass/volume] in Serum or PlasmaOrdered By: Kallie Chang on 09-16-2022 Urea nitrogen [Mass/Vol] 15 mg/dL 9-23 [facility] WBC Auto (Bld) [#/Vol]Ordere d By: Kallie Chang on 09-16-2022 WBC (Bld) [#/Vol] 11.5 10*3/uL 3.8-11.6 [facility] Albumin [Mass/volume] in Ser um or PlasmaOrdered By: Kallie Chang on 08-05-2022 Albumin [Mass/Vol] 3.8 g/dL 3.2-5.5 [facility] Basophils Auto (Bld) [#/Vol] Ordered By: Kallie Chang on 08-05-2022 Basophils (Bld) [#/Vol] 0.0 10*3/uL 0.0-0.2 [facility] Basophils/100 WBC Auto (Bld) Ordered By: Kallie Chang on 08-05-2022 Basophils/100 WBC (Bld) 0.2 % . F [facility] Creatinine and Glomerular fi ltration rate.predicted panel (S/P/Bld)Ordered By: Kallie Chang on 08-05-2022 Creatinine [Mass/Vol] 1.03 mg/dL 0.44-1.03 [facility] Eosinophils Auto (Bld) [#/Vo l]Ordered By: Kallie Chang on 08-05-2022 Eosinophils (Bld) [#/Vol] 0.0 10*3/uL 0.0-0.45 [facility] Eosinophils/100 WBC Auto (Bl d)Ordered By: Kallie Chang on 08-05-2022 Eosinophils/100 WBC (Bld) 0.0 % . [facility] Erythrocyte distribution wid th Auto (RBC) [Ratio]Ordered By: Kallie Chang on 08-05-2022 Erythrocyte distribution width (RBC) [Ratio] 14.9 % 11.9-15.3 [facility] Estimated glomerular filtrat ion rate (GFR) non- AmericanOrdered By: Kallie Chang on 08-05-2022 GFR/1.73 sq M.predicted among non-blacks MDRD (S/P/Bld) [Vol rate/Area] 58 mL/Min [facility] Globulin Calc (S) [Mass/Vol] Ordered By: Kallie Chang on 08-05-2022 Globulin (S) [Mass/Vol] 2.9 g/dL [facility] Hematocrit Auto (Bld) [Volum e fraction]Ordered By: Kallie Chang on 08-05-2022 Hematocrit (Bld) [Volume fraction] 37.2 % 34.0-46.4 [facility] Hemoglobin [Mass/volume] in BloodOrdered By: Kallie Chang on 08-05-2022 Hemoglobin (Bld) [Mass/Vol] 12.2 g/dL 11.8-15.4 [facility] Lactate dehydrogenase measur ement (enzymatic activity/volume)Ordered By: Kallie Chang on 08-05-2022 LDH (Unsp spec) [Catalytic activity/Vol] 169 U/L 45-190 [facility] Leukocytes [#/volume] correc annie for nucleated erythrocytes in Blood by Automated counOrdered By: Kallie Chang on 08-05-2022 WBC corrected for nucl RBC Auto (Bld) [#/Vol] 9.3 10*3/uL 3.8-11.6 [facility] Lymphocytes Auto (Bld) [#/Vo l]Ordered By: Kallie Chang on 08-05-2022 Lymphocytes (Bld) [#/Vol] 0.5 10*3/uL 1.00-4.8 [facility] Lymphocytes/100 WBC Auto (Bl d)Ordered By: Kallie Chang on 08-05-2022 Lymphocytes/100 WBC (Bld) 5.5 % . [facility] MCH Auto (RBC) [Entitic mass ]Ordered By: Kallie Chang on 08-05-2022 MCH (RBC) [Entitic mass] 29.8 pg 24.7-34.3 [facility] MCHC Auto (RBC) [Mass/Vol]Or dered By: Kallie Chang on 08-05-2022 MCHC (RBC) [Mass/Vol] 32.8 g/dL 32.0-35.0 [facility] MCV Auto (RBC) [Entitic vol] Ordered By: Kallie Chang on 08-05-2022 MCV (RBC) [Entitic vol] 90.9 fL 80-100 [facility] Monocytes Auto (Bld) [#/Vol] Ordered By: Kallie Chang on 08-05-2022 Monocytes (Bld) [#/Vol] 0.1 10*3/uL 0.0-0.8 [facility] Monocytes/100 WBC Auto (Bld) Ordered By: Kallie Chang on 08-05-2022 Monocytes/100 WBC (Bld) 1.4 % . [facility] Neutrophils Auto (Bld) [#/Vo l]Ordered By: Kallie Chang on 08-05-2022 Neutrophils (Bld) [#/Vol] 8.7 10*3/uL 1.8-7.7 [facility] Neutrophils/100 WBC Auto (Bl d)Ordered By: Kallie Chang on 08-05-2022 Neutrophils/100 WBC (Bld) 92.9 % . [facility] No Panel InformationOrdered By: Kallie Chang on 08-05-2022 Adrenocorticotropic Hormone <1.5 pg/mL 7.2-63.3 [facility] Comment on above: ACTH reference inter ervin for samples collected between 7 and10 AM.Performed at: [facility] [address] [id number] Director: Red Sena PhD, Phone: [phone] Estimated GFR () > 60 mL/Min [facility] Comment on above: GFR estimated refere nce range: According to KDOQI guidelines, <60 ml/min/1.73m2 is sufficient to diagnose a patient with chronic kidney disease. Pharmacy Creatinine Clearance (Chem 67.73 [facility] Nucleated erythrocytes [Pres ence] in Blood by Automated countOrdered By: Kallie Chang on 08-05-2022 Nucleated RBC Auto Ql (Bld) 0.0 /100{WBC} 0-0.5 [facility] Platelet mean volume Auto (B ld) [Entitic vol]Ordered By: Kallie Chang on 08-05-2022 Platelet mean volume (Bld) [Entitic vol] 7.1 fL 6.3-10.7 [facility] Platelets Auto (Bld) [#/Vol] Ordered By: Kallie Chang on 08-05-2022 Platelets (Bld) [#/Vol] 263 10*3/uL 150-450 [facility] Protein [Mass/volume] in Ser um or PlasmaOrdered By: Kallie Chang on 08-05-2022 Protein [Mass/Vol] 6.7 g/dL 6.1-7.9 [facility] RBC Auto (Bld) [#/Vol]Ordere d By: Kallie Chang on 08-05-2022 RBC (Bld) [#/Vol] 4.09 10*6/uL 3.60-5.00 [facility] Serum or plasma alanine napoles otransferase measurement without P-5'-P (enzymatic activiOrdered By: Kallie Chang on 08-05-2022 ALT No additional P-5'-P [Catalytic activity/Vol] 16 U/L 10-60 [facility] Serum or plasma albumin/glob ulin mass ratioOrdered By: Kallie Chang on 08-05-2022 Albumin/Globulin [Mass ratio] 1.3 {ratio} [facility] Serum or plasma alkaline zo sphatase measurement (enzymatic activity/volume)Ordered By: Kallie Chang on 08-05-2022 ALP [Catalytic activity/Vol] 89 U/L 32-92 [facility] Serum or plasma anion gap de terminationOrdered By: Kallie Chang on 08-05-2022 Anion gap [Moles/Vol] 16.6 mmol/L 6.0-15.0 [facility] Serum or plasma aspartate am inotransferase measurement (enzymatic activity/volume)Ordered By: Kallie Chang on 08-05-2022 AST [Catalytic activity/Vol] 18 U/L 10-42 [facility] Serum or plasma calcium daiana urement (mass/volume)Ordered By: Kallei Chang on 08-05-2022 Calcium [Mass/Vol] 9.1 mg/dL 8.2-10.2 [facility] Serum or plasma chloride lizett surement (moles/volume)Ordered By: Kallie Chang on 08-05-2022 Chloride [Moles/Vol] 99 mmol/L 95-114 [facility] Serum or plasma glucose daiana urement (mass/volume)Ordered By: Kallie Chang on 08-05-2022 Glucose [Mass/Vol] 164 mg/dL 70-100 [facility] Comment on above: ADA recommended refe rence rangeRandom Glucose Reference Range is dependent on time and content of last meal. Glucose of more than 200 mg/dL in a nonstressed, ambulatory subject supports the diagnosis of Diabetes Mellitus. Serum or plasma potassium me asurement (moles/volume)Ordered By: Kallie Chang on 08-05-2022 Potassium [Moles/Vol] 4.6 mmol/L 3.5-5.1 [facility] Serum or plasma sodium measu rement (moles/volume)Ordered By: Kallie Chang on 08-05-2022 Sodium [Moles/Vol] 135 mmol/L 136-146 [facility] Serum or plasma total biliru bin measurement (mass/volume)Ordered By: Kallie Chang on 08-05-2022 Bilirubin [Mass/Vol] 0.7 mg/dL 0.3-1.2 [facility] Serum or plasma total carbon dioxide measurement (moles/volume)Ordered By: Kallie Chang on 08-05-2022 CO2 [Moles/Vol] 24.0 mmol/L 22.0-30.0 [facility] Serum or plasma urea nitroge n measurement (mass/volume)Ordered By: Kallie Chang on 08-05-2022 Urea nitrogen [Mass/Vol] 15 mg/dL 9-23 [facility] TSH DL <= 0.005 mIU/L QnOrde red By: Kallie Chang on 08-05-2022 TSH Qn 0.70 m[IU]/L 0.45-5.33 [facility] Thyroxine (T4) free [Mass/vo lume] in Serum or PlasmaOrdered By: Kallie Chang on 08-05-2022 Free T4 [Mass/Vol] 0.71 ng/dL 0.61-1.12 [facility] WBC Auto (Bld) [#/Vol]Ordere d By: Kallie Chang on 08-05-2022 WBC (Bld) [#/Vol] 9.3 10*3/uL 3.8-11.6 [facility] Random cortisol measurementO rdered By: Kallie Chang on 07-22-2022 Cortisol [Mass/Vol] 2.6 ug/dL [facility] Comment on above: Reference range: AM 6 - 24 ug/dl PM <10 ug/dl Albumin [Mass/volume] in Ser um or PlasmaOrdered By: Kallie Chang on 06-17-2022 Albumin [Mass/Vol] 3.6 g/dL 3.2-5.5 [facility] Basophils Auto (Bld) [#/Vol] Ordered By: Kallie Chang on 06-17-2022 Basophils (Bld) [#/Vol] 0.0 10*3/uL 0.0-0.2 [facility] Basophils/100 WBC Auto (Bld) Ordered By: Kallie Chang on 06-17-2022 Basophils/100 WBC (Bld) 0.7 % . [facility] Creatinine and Glomerular fi ltration rate.predicted panel (S/P/Bld)Ordered By: Kallie Chang on 06-17-2022 Creatinine [Mass/Vol] 0.66 mg/dL 0.44-1.03 [facility] Eosinophils Auto (Bld) [#/Vo l]Ordered By: Kallie Chang on 06-17-2022 Eosinophils (Bld) [#/Vol] 0.1 10*3/uL 0.0-0.45 [facility] Eosinophils/100 WBC Auto (Bl d)Ordered By: Kallie Chang on 06-17-2022 Eosinophils/100 WBC (Bld) 2.7 % . [facility] Erythrocyte distribution wid th Auto (RBC) [Ratio]Ordered By: Kallie Chang on 06-17-2022 Erythrocyte distribution width (RBC) [Ratio] 13.2 % 11.9-15.3 [facility] Estimated glomerular filtrat ion rate (GFR) non- AmericanOrdered By: Kallie Chang on 06-17-2022 GFR/1.73 sq M.predicted among non-blacks MDRD (S/P/Bld) [Vol rate/Area] > 60 mL/Min [facility] Globulin Calc (S) [Mass/Vol] Ordered By: Kallie Chang on 06-17-2022 Globulin (S) [Mass/Vol] 2.6 g/dL [facility] Hematocrit Auto (Bld) [Volum e fraction]Ordered By: Kallie Chang on 06-17-2022 Hematocrit (Bld) [Volume fraction] 32.8 % 34.0-46.4 [facility] Hemoglobin [Mass/volume] in BloodOrdered By: Kallie Chang on 06-17-2022 Hemoglobin (Bld) [Mass/Vol] 10.7 g/dL 11.8-15.4 [facility] Leukocytes [#/volume] correc annie for nucleated erythrocytes in Blood by Automated counOrdered By: Kallie Chang on 06-17-2022 WBC corrected for nucl RBC Auto (Bld) [#/Vol] 5.1 10*3/uL 3.8-11.6 [facility] Lymphocytes Auto (Bld) [#/Vo l]Ordered By: Kallie Chang on 06-17-2022 Lymphocytes (Bld) [#/Vol] 0.9 10*3/uL 1.00-4.8 [facility] Lymphocytes/100 WBC Auto (Bl d)Ordered By: Kallie Chang on 06-17-2022 Lymphocytes/100 WBC (Bld) 17.2 % . [facility] MCH Auto (RBC) [Entitic mass ]Ordered By: Kallie Chang on 06-17-2022 MCH (RBC) [Entitic mass] 29.5 pg 24.7-34.3 [facility] MCHC Auto (RBC) [Mass/Vol]Or dered By: Kallie Chang on 06-17-2022 MCHC (RBC) [Mass/Vol] 32.8 g/dL 32.0-35.0 [facility] MCV Auto (RBC) [Entitic vol] Ordered By: Kallie Chang on 06-17-2022 MCV (RBC) [Entitic vol] 90.0 fL 80-100 [facility] Monocytes Auto (Bld) [#/Vol] Ordered By: Kallie Chang on 06-17-2022 Monocytes (Bld) [#/Vol] 0.5 10*3/uL 0.0-0.8 [facility] Monocytes/100 WBC Auto (Bld) Ordered By: Kallie Chang on 06-17-2022 Monocytes/100 WBC (Bld) 10.3 % . [facility] Neutrophils Auto (Bld) [#/Vo l]Ordered By: Kallie Chang on 06-17-2022 Neutrophils (Bld) [#/Vol] 3.5 10*3/uL 1.8-7.7 [facility] Neutrophils/100 WBC Auto (Bl d)Ordered By: Kallie Chang on 06-17-2022 Neutrophils/100 WBC (Bld) 69.1 % . [facility] No Panel InformationOrdered By: Kallie Chang on 06-17-2022 Adrenocorticotropic Hormone 8.2 pg/mL 7.2-63.3 [facility] Comment on above: ACTH reference inter ervin for samples collected between 7 and10 AM.Performed at: [employer] [id number] Director: Red Sena PhD, Phone: [phone] Estimated GFR () > 60 mL/Min [facility] Comment on above: GFR estimated refere nce range: According to KDOQI guidelines, <60 ml/min/1.73m2 is sufficient to diagnose a patient with chronic kidney disease. Pharmacy Creatinine Clearance (Chem 110.52 [facility] Nucleated erythrocytes [Pres ence] in Blood by Automated countOrdered By: Kallie Chang on 06-17-2022 Nucleated RBC Auto Ql (Bld) 0.0 /100{WBC} 0-0.5 [facility] Platelet mean volume Auto (B ld) [Entitic vol]Ordered By: Kallie Chang on 06-17-2022 Platelet mean volume (Bld) [Entitic vol] 7.2 fL 6.3-10.7 [facility] Platelets Auto (Bld) [#/Vol] Ordered By: Kallie Chang on 06-17-2022 Platelets (Bld) [#/Vol] 241 10*3/uL 150-450 [facility] Protein [Mass/volume] in Ser um or PlasmaOrdered By: Kallie Chang on 06-17-2022 Protein [Mass/Vol] 6.2 g/dL 6.1-7.9 [facility] RBC Auto (Bld) [#/Vol]Ordere d By: Kallie Chang on 06-17-2022 RBC (Bld) [#/Vol] 3.64 10*6/uL 3.60-5.00 [facility] Random cortisol measurementO rdered By: Kallie Chang on 06-17-2022 Cortisol [Mass/Vol] 0.4 ug/dL [facility] Comment on above: Reference range: AM 6 - 24 ug/dl PM <10 ug/dl Serum or plasma alanine napoles otransferase measurement without P-5'-P (enzymatic activiOrdered By: Kallie Chang on 06-17-2022 ALT No additional P-5'-P [Catalytic activity/Vol] 34 U/L 10-60 [facility] Serum or plasma albumin/glob ulin mass ratioOrdered By: Kallie Chang on 06-17-2022 Albumin/Globulin [Mass ratio] 1.4 {ratio} [facility] Serum or plasma alkaline zo sphatase measurement (enzymatic activity/volume)Ordered By: Kallie Chang on 06-17-2022 ALP [Catalytic activity/Vol] 82 U/L 32-92 [facility] Serum or plasma anion gap de terminationOrdered By: Kallie Chang on 06-17-2022 Anion gap [Moles/Vol] 11.1 mmol/L 6.0-15.0 [facility] Serum or plasma aspartate am inotransferase measurement (enzymatic activity/volume)Ordered By: Kallei Chang on 06-17-2022 AST [Catalytic activity/Vol] 36 U/L 10-42 [facility] Serum or plasma calcium daiana urement (mass/volume)Ordered By: Kallie Chang on 06-17-2022 Calcium [Mass/Vol] 9.5 mg/dL 8.2-10.2 [facility] Serum or plasma chloride lizett surement (moles/volume)Ordered By: Kallie Chang on 06-17-2022 Chloride [Moles/Vol] 101 mmol/L 95-114 [facility] Serum or plasma glucose daiana urement (mass/volume)Ordered By: Kallie Chang on 06-17-2022 Glucose [Mass/Vol] 94 mg/dL 70-100 [facility] Comment on above: ADA recommended refe rence rangeRandom Glucose Reference Range is dependent on time and content of last meal. Glucose of more than 200 mg/dL in a nonstressed, ambulatory subject supports the diagnosis of Diabetes Mellitus. Serum or plasma potassium me asurement (moles/volume)Ordered By: Kallie Chang on 06-17-2022 Potassium [Moles/Vol] 3.6 mmol/L 3.5-5.1 [facility] Serum or plasma sodium measu rement (moles/volume)Ordered By: Kallie Chang on 06-17-2022 Sodium [Moles/Vol] 133 mmol/L 136-146 [facility] Serum or plasma total biliru bin measurement (mass/volume)Ordered By: Kallie Chang on 06-17-2022 Bilirubin [Mass/Vol] 0.8 mg/dL 0.3-1.2 [facility] Serum or plasma total carbon dioxide measurement (moles/volume)Ordered By: Kallie Chang on 06-17-2022 CO2 [Moles/Vol] 24.5 mmol/L 22.0-30.0 [facility] Serum or plasma urea nitroge n measurement (mass/volume)Ordered By: Kallie Chang on 06-17-2022 Urea nitrogen [Mass/Vol] 7 mg/dL - [facility] TSH DL <= 0.005 mIU/L QnOrde red By: Kallie Chang on 06-17-2022 TSH Qn 2.66 m[IU]/L 0.45-5.33 [facility] Thyroxine (T4) free [Mass/vo lume] in Serum or PlasmaOrdered By: Kallie Chang on 06-17-2022 Free T4 [Mass/Vol] 0.43 ng/dL 0.61-1.12 [facility] WBC Auto (Bld) [#/Vol]Ordere d By: Kallie Chang on 06-17-2022 WBC (Bld) [#/Vol] 5.1 10*3/uL 3.8-11.6 [facility] Laboratory - Hematology and Cell countsOrdered By: Kallie Chang on 05-27-2022 Nucleated RBC/100 WBC (Bld) [Ratio] 0.1 % 0-0.5 [facility] No Panel InformationOrdered By: Kallie Chang on 05-27-2022 Adrenocorticotropic Hormone 14.9 pg/mL 7.2-63.3 [facility] Comment on above: ACTH reference inter ervin for samples collected between 7 and10 AM.Performed at: [facility] [id number] Director: Red Sena PhD, Phone: [phone] HCG ( test) Cheryl d Ql (U)Ordered By: Satcie Thomas on 04-16-2022 HCG ( test) Ql (U) Negative [facility] PAP ACOG PANEL 2: 30 to 65on 04-16-2022 . . Normal [facility] Comment on above: Result Comment: Perf ormed at: WB Performed By: #### [id number] #### [facility] [address] [place] [address] Dr. Lilly Varner Age Gdln ACOG Testing 30-65 Normal [facility] Comment on above: Performed By: #### [id number] #### [facility] [address] [address] [address] Lilly Varner DIAGNOSIS: Comment Normal [facility] Comment on above: Result Comment: NEGA TIVE FOR INTRAEPITHELIAL LESION OR MALIGNANCY. THIS SPECIMEN WAS RESCREENED PART OF OUR HAND SPRAY OPERATOR PROGRAM. Performed at: WB Performed By: #### [id number] #### [facility] [address] [place] [address] Dr. Lilly Varner HPV Aptima Positive Abnormal Negative [facility] Comment on above: Result Comment: This nucleic acid amplification test detects fourteen high-risk HPV types (16,18,31,33,35,39,45,51,52,56,58,59,66,68) without differentiation. Performed at: =G Performed By: #### [id number] #### [facility] [address] [place] [address] Dr. Lilly Varner HPV Genotype 16 Negative Normal Negative [facility] Comment on above: Result Comment: Perf ormed at: =G Performed By: #### [id number] #### [facility] [address] [place] [address] Dr. Lilly Varner HPV Genotype 18,45 Positive Abnormal Negative [facility] Comment on above: Result Comment: Perf ormed at: =G Performed By: #### [id number] #### [facility] [address] [place] [address] Dr. Lilly Varner Methodology: Comment Normal [facility] Comment on above: Result Comment: This liquid based ThinPrep(R) pap test was screened with the use of an image guided system. Performed at: WB Performed By: #### [id number] #### [facility] [address] [address] [address] Lilly Varner Note: Comment [facility] Comment on above: Result Comment: The Pap smear is a screening test designed to aid in the detection of premalignant and malignant conditions of the uterine cervix. It is not a diagnostic procedure and should not be used as the sole means of detecting cervical cancer. Both false-positive and false-negative reports do occur. . Performed at: WB Performed By: #### [id number] #### [facility] [address] [address] [address] Lilly Varner Performed by: Comment Normal [facility] Comment on above: Result Comment: Nickie Ford, [employer] (ASCP) Performed at: WB Performed By: #### [id number] #### [facility] [address] [place] [address] Dr. Lilly Varner QC reviewed by: Comment Normal [facility] Comment on above: Result Comment: Dequan Plaza, Supervisory [employer] (ASCP) Performed at: WB Performed By: #### [id number] #### [facility] [address] [place] [address] Dr. Lilly Varner Specimen adequacy: Comment Normal [facility] Comment on above: Result Comment: Sati sfactory for evaluation. Endocervical and/or squamous metaplastic cells (endocervical component) are present. Performed at: WB Performed By: #### [id number] #### [facility] [address] [place] [address] Dr. Lilly Varner XR DEXA BONE DENSITYon [...] KRISTA ROBERTSON Date: 2022-04-14 17:25 Normal [facility] VIT D 25-OH LABCORPon 2021 Vitamin D, 25-Hydroxy 19.5 ng/mL Critically low 30.0-100.0 [facility] Comment on above: Result Comment: [place] min D deficiency has been defined by the [place] of Medicine and an Endocrine Society practice guideline as a level of serum 25-OH vitamin D less than 20 ng/mL (1,2). The Endocrine Society went on to further define vitamin D insufficiency as a level between 21 and 29 ng/mL (2). 1. IOM ([place] of Medicine). 2010. Dietary reference intakes for calcium and D. [place]: The National Academies Press. 2. Lorena SANTIAGO, Art MEADOWS, Eleazar SPENCE, et al. Evaluation, treatment, and prevention of vitamin D deficiency: an Endocrine Society clinical practice guideline. JCEM. 2010; 96(7):1911-30. Performed By: #### V ITADLC #### [facility] [address] [place] [address] Dr. Lilly Varner CBC AUTO DIFFon 2022 BASO # 0.0 103/ul Normal 0.0-0.1 [facility] Comment on above: Performed By: #### C BC #### [facility] [address] [place] [address] Dr. Lilly Varner Basophils/100 WBC (Bld) 0.5 % Normal 0.2-2.0 [facility] Comment on above: Performed By: #### C BC #### [facility] [address] [place] [address] Dr. Lilly Varner EO # 0.5 103/ul Normal 0.0-0.7 [facility] Comment on above: Performed By: #### C BC #### [facility] [address] [place] [address] Dr. Lilly Varner Eosinophils/100 WBC (Bld) 6.4 % Normal 0.9-7.0 [facility] Comment on above: Performed By: #### C BC #### [facility] [address] [place] [address] Dr. Lilly Varner Erythrocyte distribution width (RBC) [Ratio] 13.0 % Normal 11.0-15.0 [facility] Comment on above: Performed By: #### C BC #### [facility] [address] [place] [address] Dr. Lilly Varner Hematocrit (Bld) [Volume fraction] 40.1 % Normal 36.0-48.0 [facility] Comment on above: Performed By: #### C BC #### [facility] [address] [place] [address] Dr. Lilly Varner Hemoglobin (Bld) [Mass/Vol] 12.7 g/dL Normal 12.0-16.0 [facility] Comment on above: Performed By: #### C BC #### [facility] [address] [place] [address] Dr. Lilly Varner IG # 0.04 10e3/ul Critically high 0.00-0.03 [facility] Comment on above: Performed By: #### C BC #### [facility] [address] [place] [address] Dr. Lilly Varner IG % 0.5 % Normal 0.0-0.5 [facility] Comment on above: Performed By: #### C BC #### [facility] [address] [place] [address] Dr. Lilly Varner LYMPH # 2.0 103/ul Normal 1.2-3.8 [facility] Comment on above: Performed By: #### C BC #### [facility] [address] [place] [address] Dr. Lilly Varner Lymphocytes/100 WBC (Bld) 24.3 % Normal 20.5-60.0 [facility] Comment on above: Performed By: #### C BC #### [facility] [address] [place] [address] Dr. Lilly Varner MANUAL DIFF REQ NO Normal [facility] Comment on above: Performed By: #### C BC #### [facility] [address] [place] [address] Dr. Lilly Varner MCH (RBC) [Entitic mass] 30.3 pg Normal 26.7-34.0 [facility] Comment on above: Performed By: #### C BC #### [facility] [address] [place] [address] Dr. Lilly Varner MCHC (RBC) [Mass/Vol] 31.7 g/dL Normal 29.9-35.2 [facility] Comment on above: Performed By: #### C BC #### [facility] [address] [place] [address] Dr. Lilly Varner MCV (RBC) [Entitic vol] 95.7 fL Normal 81.0-99.0 [facility] Comment on above: Performed By: #### C BC #### [facility] [address] [place] [address] Dr. Lilly Varner MONO # 0.5 103/ul Normal 0.3-0.8 [facility] Comment on above: Performed By: #### C BC #### [facility] [address] [place] [address] Dr. Lilly Varner Monocytes/100 WBC (Bld) 5.7 % Normal 1.7-12.0 [facility] Comment on above: Performed By: #### C BC #### [facility] [address] [place] [address] Dr. Lilly Varner NEUT # 5.1 103/ul Normal 1.4-6.5 [facility] Comment on above: Performed By: #### C BC #### [facility] [address] [place] [address] Dr. Lilly Varner Neutrophils/100 WBC (Bld) 62.6 % Normal 43.0-75.0 [facility] Comment on above: Performed By: #### C BC #### [facility] [address] [place] [address] Dr. Lilly Varner Platelet mean volume (Bld) [Entitic vol] 8.6 fL Critically low 9.5-13.5 [facility] Comment on above: Performed By: #### C BC #### [facility] [address] [address] [address] Lilly Varner PLT 279 103/ul Normal 150-450 [facility] Comment on above: Performed By: #### C BC #### [facility] [address] [address] [address] Lilly Varner RBC 4.19 106/ul Critically low 4.20-5.40 [facility] Comment on above: Performed By: #### C BC #### [facility] [address] [address] [address] Lilly Varner WBC 8.2 103/ul Normal 4.0-11.0 [facility] Comment on above: Performed By: #### C BC #### [facility] [address] [address] [address] Lilly Varner GLYCOHEMOGLOBIN A1Con 2021 ADA RECOMMENDATION SEE BELOW Normal [facility] Comment on above: Result Comment: ADA RECOMMENDED LIMIT 4.0 - 6.0 ADA THERAPEUTIC TARGET < 7.0 ACTION SUGGESTED > 7.0 Performed By: #### A 1C ####[facility] [id number] [address]Dr[address] Lilly Varner Glucose [Mass/Vol] 128 mg/dL Normal [facility] Comment on above: Performed By: #### A 1C ####[facility] [id number] [id number][address] Lilly Varner HbA1c (Bld) [Mass fraction] 6.1 % Normal 4.5-6.2 [facility] Comment on above: Performed By: #### A 1C ####[facility] [id number] [id number]. Lilly Varner LIPID PROFILEon 2022 CHOL-HDL RATIO NORM SEE BELOW Normal [facility] Comment on above: Result Comment: 3.3 - 4.4 LOW RISK 4.4 - 7.1 AVERAGE RISK 7.1 - 11.0 MODERATE RISK >11.0 HIGH RISK Performed By: #### C MP, TSH, LIPID #### [facility] [address] [address] [address] Lilly Varner Cholesterol [Mass/Vol] 291 mg/dL Critically high <=200 [facility] Comment on above: Performed By: #### C MP, TSH, LIPID #### [facility] [address] [address] [address] Lilly Varner Cholesterol in HDL [Mass/Vol] 60 mg/dL Normal 40-60 [facility] Comment on above: Performed By: #### C MP, TSH, LIPID #### [facility] [address] [address] [address] Lilly Varner Cholesterol in LDL [Mass/Vol] 209.6 mg/dL Normal [facility] Comment on above: Performed By: #### C MP, TSH, LIPID #### [facility] [address] [address] [address] Lilly Varner Cholesterol.total/Cholest caro in HDL [Mass ratio] 4.9 {ratio} Normal [facility] Comment on above: Performed By: #### C MP, TSH, LIPID #### [facility] [address] [address] [address] Lilly Varner HDL NORMAL > or = 60 mg/dl - LO W CARDIOVASCULAR RISK <40 mg/dl - HIGH CARDIOVASCULAR RISK Normal [facility] Comment on above: Performed By: #### C MP, TSH, LIPID #### [facility] [address] [address] [address] Lilly Varner LDL CALC NORMAL SEE BELOW Normal [facility] Comment on above: Result Comment: <100 mg/dl OPTIMAL 100 - 129 mg/dl NEAR OR ABOVE OPTIMAL 130 - 159 mg/dl BORDERLINE HIGH 160 - 189 mg/dl HIGH >190 mg/dl VERY HIGH Performed By: #### C MP, TSH, LIPID #### [facility] [address] [address] [address] Lilly Varner Triglyceride [Mass/Vol] 107 mg/dL Normal <=150 [facility] Comment on above: Performed By: #### C MP, TSH, LIPID #### [facility] [address] [address] [address] Lilly Varner VLDL CALC 21.4 mg/dL Normal [facility] Comment on above: Performed By: #### C MP, TSH, LIPID #### [facility] [address] [address] [address] Lilly Varner PROF 14(COMP METB)on 022 Albumin [Mass/Vol] 3.9 g/dL Normal 3.4-5.0 [facility] Comment on above: Performed By: #### C MP, TSH, LIPID #### [facility] [facility] [address] [address] [address] Lilly Varner Albumin/Globulin [Mass ratio] 1.1 {ratio} Normal [facility] Comment on above: Performed By: #### C MP, TSH, LIPID #### [facility] [address] [address] [address] Lilly Varner ALP [Catalytic activity/Vol] 103 U/L Normal 46-116 [facility] Comment on above: Performed By: #### C MP, TSH, LIPID #### [facility] [address] [place] [address] Dr. Lilly Varner ALT [Catalytic activity/Vol] 44 U/L Normal 14-59 [facility] Comment on above: Performed By: #### C MP, TSH, LIPID #### [facility] [address] [place] [address] Dr. Lilly Varner Anion gap [Moles/Vol] 12.7 mmol/L Normal [facility] Comment on above: Performed By: #### C MP, TSH, LIPID #### [facility] [address] [address] [address] Lilly Varner AST [Catalytic activity/Vol] 24 U/L Normal 15-37 [facility] Comment on above: Performed By: #### C MP, TSH, LIPID #### [facility] [address] [address] [address] Lilly Varner Bilirubin [Mass/Vol] 0.4 mg/dL Normal 0.2-1.0 [facility] Comment on above: Performed By: #### C MP, TSH, LIPID #### [facility] [address] [address] [address] Lilly Varner Calcium [Mass/Vol] 9.1 mg/dL Normal 8.5-10.1 [facility] Comment on above: Performed By: #### C MP, TSH, LIPID #### [facility] [address] [place] [address] Dr. Lilly Varner Chloride [Moles/Vol] 104 mmol/L Normal 98-107 [facility] Comment on above: Performed By: #### C MP, TSH, LIPID #### [facility] [address] [place] [address] Dr. Lilly Varner CO2 [Moles/Vol] 28.4 mmol/L Normal 21.0-32.0 [facility] Comment on above: Performed By: #### C MP, TSH, LIPID #### [facility] [address] [place] [address] Dr. Lilly Varner Creatinine [Mass/Vol] 0.75 mg/dL Normal 0.55-1.02 [facility] Comment on above: Performed By: #### C MP, TSH, LIPID #### [facility] [address] [place] [address] Dr. Lilly Varner EGFR-AF [place] >60 Normal >=60 [facility] Comment on above: Performed By: #### C MP, TSH, LIPID #### [facility] [address] [place] [address] Dr. Lilly Varner EGFR-NON AF [place] >60 Normal >=60 [facility] Comment on above: Performed By: #### C MP, TSH, LIPID #### [facility] [address] [place] [address] Dr. Lilly Varner Globulin (S) [Mass/Vol] 3.7 g/dL Normal T [facility] Comment on above: Performed By: #### C MP, TSH, LIPID #### [facility] [address] [place] [address] Dr. Lilly Varner Glucose [Mass/Vol] 98 mg/dL Normal 74-106 [facility] Comment on above: Performed By: #### C MP, TSH, LIPID #### [facility] [address] [place] [address] Dr. Lilly Varner Potassium [Moles/Vol] 4.1 mmol/L Normal 3.5-5.1 [facility] Comment on above: Performed By: #### C MP, TSH, LIPID #### [facility] [address] [place] [address] Dr. Lilly Varner Protein [Mass/Vol] 7.6 g/dL Normal 6.4-8.2 [facility] Comment on above: Performed By: #### C MP, TSH, LIPID #### [facility] [address] [address] [address] Lilly Varner Sodium [Moles/Vol] 141 mmol/L Normal 136-145 [facility] Comment on above: Performed By: #### C MP, TSH, LIPID #### [facility] [address] [place] [address] Dr. Lilly Varner Urea nitrogen [Mass/Vol] 16.0 mg/dL Normal 7.0-18.0 [facility] Comment on above: Performed By: #### C MP, TSH, LIPID #### [facility] [address] [place] [address] Dr. Lilly Varner Urea nitrogen/Creatinine [Mass ratio] 21.3 mg/mg Normal [facility] Comment on above: Performed By: #### C MP, TSH, LIPID #### [facility] [address] [place] [address] Dr. Lilly Varner TSHon 2022 TSH 1.280 uIU/mL Normal 0.358-3.74 0 [facility] Comment on above: Performed By: #### C MP, TSH, LIPID #### [facility] [address] [place] [address] Dr. Lilly Varner Cov[facility]-19 [facility]17 SARS-CoV-2 (COVID-19) RNA SHILPI+probe Ql (Unsp spec) Detected Critically abnormal NOT DETECTED [facility] Comment on above: Result Comment: This test is not yet approved or cleared by the [place] FDA. When there are no FDA-approved or cleared tests available, and other criteria are met, FDA can make tests available under an emergency access mechanism called an Emergency Use Authorization (EUA). The EUA for this test is supported by the [place] of Health and Human Service's declaration that [...] longer be used). Performed By: #### C [facility] #### [facility] [address] [address] [address] Lilly Varner Surgical Pathologyon 022 Surgical [...] A: OUTSIDE SLIDES Gross Description Received from [facility] Department of Pathology are 6 slides labelled, [id number], TENISHA HANCOCK, for consultation at the request [...] CONSULTATION Patient Name: TENISHA HANCOCK [facility] Rec: [id number] Path Number: [id number] [facility] ANATOMIC PATHOLOGY [address] [place] [id number] Normal [facility] Comment on above: Performed By: #### P PPVOC #### [address] [address] Workers Compensation Attorney: Rico Melo MD [facility] BREAST SPECIMENon 2021 [facility] BREAST SPECIMEN EXAMINATION: SPECIMEN RADIOGRAPH [...] MD 02/17/22 Final result Normal [facility] Specimen radiograph demonstrates inclusion of the targeted microcalcifications and biopsy clip Findings discussed with Dr. Murguia in person at 12:55pm on 02/17/2022 [facility] CONSOLIDATED EXAMINATION: SPECIMEN RADIOGRAPH 02/17/2022 [...] coordinates are A3. Wire tip is intact. [facility] CONSOLIDATED [employer] Work Phone: Radiology Study observation (narrative) CORKY LOPEZ [employer] Phone: WILLIE NEEDLE BREAST LOCALIZATI ON RIGHTon [...] Gage Eng MD 02/17/[address] [facility] NEEDLE LOCALIZATION [facility] 02-17-2022 Mammographic wire localization of biopsy clip and associated microcalcifications, as described. No residual mammographic mass. [facility] CONSOLIDATED EXAMINATION: MAMMOGRAPHIC GUIDED NEEDLE [...] the wire. No significant residual mammographic mass. [facility] Radiology Study observation (narrative) [employer]ORKY RUIZ [facility] Work Phone: WILLIE NEEDLE LOCALIZATION RIG TOrdered By: Gage Eng on 02-17-2022 CORKY WELCH [facility] Work Phone: NM LYMPHOSCINTIGRAMon 2021 NM [...] MD 02/17/22 Final result Normal [facility] Prompt identificatio n of sentinel lymph node in the right axilla. [facility] RIS CONSOLIDATED EXAMINATION: LYMPHOSCINTIGRAPHY (INJECTION AND IMAGES) [...] ?->No Reason for Exam: Right Breast CA [facility] CONSOLID[facility] Gage Eng MD - [...] sentinel lymph node in the right axilla. [employer] Phone: Radiology Study observation (narrative) [employer] Phone: NM LYMPHOSCINTIGRAMOrdered B y: Gage Eng on 02-17-2022 [employer] Phone: Surgical Pathologyon 022 Surgical Pathology (NOTE) [...] new margin. 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 ([facility], 02/17/22) Microscopic Description A, B. [...] (more content not included)... Normal [facility] Comment on above: Performed By: #### P PPVS #### [address] [place], [place] [id number] Workers Compensation Attorney: Rico Melo MD MRI BREAST BILATERAL W [...] right mammogram of 22 April 2021 from [facility]. Other right mammogram of June 2021 at an outside facility is not available. HISTORY: ORDERING SYSTEM PROVIDED HISTORY: Malignant neoplasm of right female breast, unspecified estrogen receptor status, unspecified site of breast (HCC) TECHNOLOGIST PROVIDED HISTORY: STAT Creatinine as needed:->Yes Last MRI done at [facility] in [place]. Result scanned in Media Reason for Exam: Last MRI done at [facility] in [place]. Result scanned in Media , Malign Additional signs and symptoms: Last MRI done at [facility] in [place]. Result scanned in Media , Malignant neoplasm [...] Heber Fofana MD 02/04/22 Final result Normal [facility] 1. Area of 9 x [...] OVERALL ASSESSMENT - KNOWN BIOPSY PROVEN MALIGNANCY. [facility] RIS CONSOLIDATED EXAMINATION: MRI OF THE BILATERAL [...] right mammogram of 22 April 2021 from [facility]. Other right mammogram of June 2021 at an outside facility is not available. HISTORY: ORDERING SYSTEM PROVIDED HISTORY: Malignant neoplasm of right female breast, unspecified estrogen receptor status, unspecified site of breast (HCC) TECHNOLOGIST PROVIDED HISTORY: STAT Creatinine as needed:->Yes Last MRI done at [facility] in [place]. Result scanned in Media Reason for Exam: Last MRI done at [facility] in [place]. Result scanned in Media , Malign Additional signs and symptoms: Last MRI done at [facility] in [place]. Result scanned in Media , Malignant neoplasm [...] abnormal signal intensity or contrast enhancement noted. [facility] RIS CONSOLIDATED Radiology Study observation (narrative) [employer] R[employer]Z [employer] Work Phone: MRI BREAST BILATERAL W WO CO NTRASTOrdered By: Heber Fofana on 02-04-2022 Interpretation and review of laboratory results Abnormal [employer] Work Phone: [employer] Work Phone: Aamir 01-29-2022 CELINEN Telephone (BRCRAV) TENISHA HANCOCK ([id number]) 1975 DEF Date Time Provider Department 01/29/22 [...] Encounter Status:Closed by NAT RICKETTS on 02/02/22 [facility] DANEILAon 01-15-2022 CNOV Office Visit (PLASMN ) TENISHA HANCOCK ([id number]) 1975 F DEF Date Time Provider Department [...] breast in May 2021. Dr. Reza in [place] is her breast surgeon. 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 Back Exam: no scar; latissimus dorsi muscle function appears to be intact Abdominal Exam: soft, non-tender, obese and protuberant, BS+, non-distended, lap samreen Breast Exam: Asymmetry: Minimal Axillary Lymphadenopathy: no Scars: None Ptosis: R: Grade III L: Grade III Medially displaced nipple: None Assessment: Patient is a candidate for tissue news production assistant Photos taken today Plan: An extensive discussion was undertaken with the patient detailing the risks, benefits and alternatives to tissue news production assistant. Tenisha Hancock was given supplemental information on [...] Past Histories independently gathered by the clinical customer support executive and the remaining scribed note accurately describes my personal service to the patient. patient's condition reviewed and examined ? plan and options of management, complexity, risk benefit limitation potential complication, success /failure of management, expected result and recovery discussed ? I spent 30 minutes in the visit, with more than 50% of the total [id number] time of the visit in counseling / [...] Problem Li (more content not included)... Normal [facility] Aamir 01-15-2022 [facility] TENISHA HANCOCK ([id number]) 1975 F DEF Date Time Provider Department [...] been, she has had studies at both [facility] and [place]. I was able to have patient get a release and will also fax to [employer] what she has thus far. Our office will continue to work on getting all outside records to be submitted for a second review. Alvin Alexis 01/16/2022 1:25 PM Signed Pt calling regarding faxed info she had sent to [employer]. Pt asking if fax was received by [...] I see a teaching note 06/23/21 at [facility] but limited documentation since then as [...] call with arrival time for that 01/23 [facility] 01/22/2022 3:14 PM Signed Patient called back, she left detailed message on voicemail to return her call at [phone]. Thank you. Nat Ricketts RN 01/22/2022 3:49 [...] for 60 min new cancer consult at [facility] Patient Creative Project Manager 01/23/2022 9:57 AM Signed Pt scheduled Lucinda Alvarez Ma 01/23/2022 10:40 AM Signed Still have not received all records, I spoke to patient today and asked that she help expedite getting her pathology reports and slides from [place] along with all her images and reports, we also need all the workup done at [facility] and [place]. I provided [place] fax number and patient advised she will help me gather all her records. Lucindaandres Edouard Kim De La Cruz 01/27/2022 10:00 AM Signed We still have not received path slides as of today. I called and LMOM for Jillian whom is the director of [facility] lab department to get an update. I [...] 01/27/2022 10:34 AM Signed Jillian called from [place] she advised she will work on getting all slides sent to [facility]. Lucinda Tejadavi Alvarez Ma 01/28/2022 9:41 AM Signed Addended by: LUCINDA RED MA on: 01/28/2022 09:41 AM Modules accepted: Orders Allergies As of Date: 01/15/2022 (No Known Allergies) Date Reviewed: 01/15/2022 Reviewed by: Diamond Gibson - Fully Assessed Reason for Visit: Appointment [[id number]] Order(s):OUTSIDE SURG PATH SLIDE REVIEW [[id number]] Order #: [id number] Prescriptions as of 01/28/2022 - citalopram (CELEXA) 20 mg tablet Take 20 mg (more content not included)... Normal [facility] Basophils Auto (Bld) [#/Vol] Ordered By: Kallie Chang on 12-24-2021 Basophils (Bld) [#/Vol] 0.0 10*3/uL 0.0-0.2 [facility] Basophils/100 WBC Auto (Bld) Ordered By: Kallie Chang on 12-24-2021 Basophils/100 WBC (Bld) 0.3 % . F [facility] Blood hemoglobin measurement (mass/volume)Ordered By: Kallie Chang on 12-24-2021 Hemoglobin (Bld) [Mass/Vol] 10.3 g/dL 11.8-15.4 [facility] Blood leukocytes automated c ount (number/volume)Ordered By: Kallie Chang on 12-24-2021 WBC (Bld) [#/Vol] 5.8 10*3/uL 4.5-11.0 [facility] Body fluid albumin measureme nt (mass/volume)Ordered By: Kallie Chang on 12-24-2021 Albumin (Body fld) [Mass/Vol] 3.8 g/dL 3.2-5.5 [facility] Creatinine and Glomerular fi ltration rate.predicted panel (S/P/Bld)Ordered By: Kallie Chang on 12-24-2021 Creatinine [Mass/Vol] 0.66 mg/dL 0.44-1.03 [facility] Eosinophils Auto (Bld) [#/Vo l]Ordered By: Kallie Chang on 12-24-2021 Eosinophils (Bld) [#/Vol] 0.1 10*3/uL 0.0-0.45 [facility] Eosinophils/100 WBC Auto (Bl d)Ordered By: Kallie Chang on 12-24-2021 Eosinophils/100 WBC (Bld) 0.9 % . [facility] Erythrocyte distribution wid th Auto (RBC) [Ratio]Ordered By: Kallie Chang on 12-24-2021 Erythrocyte distribution width (RBC) [Ratio] 13.9 % 11.9-15.3 [facility] Estimated glomerular filtrat ion rate (GFR) non- AmericanOrdered By: Kallie Chang on 12-24-2021 GFR/1.73 sq M.predicted among non-blacks MDRD (S/P/Bld) [Vol rate/Area] > 60 mL/Min [facility] Globulin Calc (S) [Mass/Vol] Ordered By: Kallie Chang on 12-24-2021 Globulin (S) [Mass/Vol] 3.0 g/dL F [facility] Hematocrit Auto (Bld) [Volum e fraction]Ordered By: Kallie Chang on 12-24-2021 Hematocrit (Bld) [Volume fraction] 30.4 % 34.0-46.4 [facility] Laboratory - Hematology and Cell countsOrdered By: Kallie Chang on 12-24-2021 Nucleated RBC/100 WBC (Bld) [Ratio] 0.0 % 0-0.5 [facility] Lymphocytes Auto (Bld) [#/Vo l]Ordered By: Kallie Chang on 12-24-2021 Lymphocytes (Bld) [#/Vol] 1.2 10*3/uL 1.00-4.8 [facility] Lymphocytes/100 WBC Auto (Bl d)Ordered By: Kallie Chang on 12-24-2021 Lymphocytes/100 WBC (Bld) 21.5 % . [facility] MCH Auto (RBC) [Entitic mass ]Ordered By: Kallie Chang on 12-24-2021 MCH (RBC) [Entitic mass] 34.6 pg 24.7-34.3 [facility] MCHC Auto (RBC) [Mass/Vol]Or dered By: Kallie Chang on 12-24-2021 MCHC (RBC) [Mass/Vol] 33.9 g/dL 32.0-35.0 [facility] MCV Auto (RBC) [Entitic vol] Ordered By: Kallie Chang on 12-24-2021 MCV (RBC) [Entitic vol] 102.2 fL 80-100 F [facility] Macrocytes detectionOrdered By: Kallie Chang on 12-24-2021 Macrocytes Ql (Bld) Slight [facility] Monocytes Auto (Bld) [#/Vol] Ordered By: Kallie Chang on 12-24-2021 Monocytes (Bld) [#/Vol] 0.3 10*3/uL 0.0-0.8 [facility] Monocytes/100 WBC Auto (Bld) Ordered By: Kallie Chang on 12-24-2021 Monocytes/100 WBC (Bld) 5.5 % . F [facility] Neutrophils Auto (Bld) [#/Vo l]Ordered By: Kallie Chang on 12-24-2021 Neutrophils (Bld) [#/Vol] 4.1 10*3/uL 1.8-7.7 [facility] Neutrophils/100 WBC Auto (Bl d)Ordered By: Kallie Chang on 12-24-2021 Neutrophils/100 WBC (Bld) 71.8 % . [facility] No Panel InformationOrdered By: Kallie Chang on 12-24-2021 Estimated GFR () > 60 mL/Min [facility] Comment on above: GFR estimated refere nce range: According to KDOQI guidelines, <60 ml/min/1.73m2 is sufficient to diagnose a patient with chronic kidney disease. Pharmacy Creatinine Clearance (Chem 115.02 [facility] Platelet Estimate Normal Normal [facility] Platelet Morphology Comment Normal Normal [facility] Poikilocytosis Slight [facility] Ovalocyte detectionOrdered B y: Kallie Chang on 12-24-2021 Ovalocytes LM Ql (Bld) Slight [facility] Platelet mean volume Auto (B ld) [Entitic vol]Ordered By: Kallie Chang on 12-24-2021 Platelet mean volume (Bld) [Entitic vol] 8.0 fL 6.3-10.7 [facility] Platelets Auto (Bld) [#/Vol] Ordered By: Kallie Chang on 12-24-2021 Platelets (Bld) [#/Vol] 207 10*3/uL 150-450 [facility] Protein [Mass/volume] in Ser um or PlasmaOrdered By: Kallie Chang on 12-24-2021 Protein [Mass/Vol] 6.8 g/dL 6.1-7.9 [facility] RBC Auto (Bld) [#/Vol]Ordere d By: Kallie Chang on 12-24-2021 RBC (Bld) [#/Vol] 2.98 10*6/uL 3.60-5.00 [facility] RBC morphologyOrdered By: Precious Chang on 12-24-2021 RBC morphology finding Nom (Bld) N/A [facility] Serum or plasma alanine napoles otransferase measurement without P-5'-P (enzymatic activiOrdered By: Kallie Chang on 12-24-2021 ALT No additional P-5'-P [Catalytic activity/Vol] 20 U/L 10-60 [facility] Serum or plasma albumin/glob ulin mass ratioOrdered By: Kallie Chang on 12-24-2021 Albumin/Globulin [Mass ratio] 1.3 {ratio} [facility] Serum or plasma alkaline zo sphatase measurement (enzymatic activity/volume)Ordered By: Kallie Chang on 12-24-2021 ALP [Catalytic activity/Vol] 112 U/L 32-92 [facility] Serum or plasma aspartate am inotransferase measurement (enzymatic activity/volume)Ordered By: Kallie Chang on 12-24-2021 AST [Catalytic activity/Vol] 17 U/L 10-42 [facility] Serum or plasma calcium daiana urement (mass/volume)Ordered By: Kallie Chang on 12-24-2021 Calcium [Mass/Vol] 9.6 mg/dL 8.2-10.2 [facility] Serum or plasma chloride lizett surement (moles/volume)Ordered By: Kallie Chang on 12-24-2021 Chloride [Moles/Vol] 98 mmol/L 95-114 [facility] Serum or plasma glucose daiana urement (mass/volume)Ordered By: Kallie Chang on 12-24-2021 Glucose [Mass/Vol] 119 mg/dL 70-100 [facility] Comment on above: ADA recommended refe [...] on 12-24-2021 Potassium [Moles/Vol] 4.0 mmol/L 3.5-5.1 [facility] Serum or plasma sodium measu rement (moles/volume)Ordered By: Kallie Chang on 12-24-2021 Sodium [Moles/Vol] 134 mmol/L 136-146 [facility] Serum or plasma total biliru bin measurement (mass/volume)Ordered By: Kallie Chang on 12-24-2021 Bilirubin [Mass/Vol] 0.5 mg/dL 0.3-1.2 [facility] Serum or plasma total carbon dioxide measurement (moles/volume)Ordered By: Kallie Chang on 12-24-2021 CO2 [Moles/Vol] 23.2 mmol/L 22.0-30.0 [facility] Serum or plasma urea nitroge n measurement (mass/volume)Ordered By: Kallie Chang on 12-24-2021 Urea nitrogen [Mass/Vol] 7 mg/dL 9 [facility] CNPNon 12-19-2021 CNPN Telephone (DPQ) TENISHA HANCOCK ([id number]) 1975 F Date Time Provider Department 12/19/21 [...] Status:Closed by ALFREDO ORTEGA on 12/19/21 Normal [facility] No Panel InformationOrdered By: Kallie Chang on 12-16-2021 Adrenocorticotropic Hormone 31.0 pg/mL 7.2-63.3 [facility] Comment on above: ACTH reference inter ervin for samples collected between 7 and 10 AM. Performed at: [employer] [id number] Workers Compensation Attorney: Red Sena PhD, Phone: [phone] ACTH reference inter ervin for samples collected between 7 and10 AM.Performed at: [employer] [id number] Director: Red Sena PhD, Phone: [phone] Random cortisol measurementO rdered By: Kallie Chang on 12-16-2021 Cortisol [Mass/Vol] 7.2 ug/dL [facility] Comment on above: Reference range: AM 6 - 24 ug/dl PM <10 ug/dl Reference range: AM 6 - 24 ug/dl PM <10 ug/dl TSH DL <= 0.005 mIU/L QnOrde red By: Kallie Chang on 12-16-2021 TSH Qn 0.08 m[IU]/L 0.45-5.33 [facility] Thyroxine (T4) free [Mass/vo lume] in Serum or PlasmaOrdered By: Kallie Chang on 12-16-2021 Free T4 [Mass/Vol] 0.74 ng/dL 0.61-1.12 [facility] No Panel InformationOrdered By: Kallie Chang on 12-02-2021 Dohle Bodies Slight [facility] Teardrop cell detectionOrder ed By: Kallie Chang on 12-02-2021 Dacrocytes LM Ql (Bld) Slight [facility] Toxic leukocyte granulation detectionOrdered By: Kallie Chang on 12-02-2021 Toxic granules LM Ql (Bld) Slight [facility] Basophils/100 WBC Auto (Bld) Ordered By: Kallie Chang on 11-04-2021 Basophils/100 WBC (Bld) 1 % 0-2 [facility] Blood anisocytosis detection Ordered By: Kallie Chang on 11-04-2021 Anisocytosis Ql (Bld) Moderate [facility] Blood polychromasia detectio n by light microscopyOrdered By: Kallie Chang on 11-04-2021 Polychromasia LM Ql (Bld) Slight [facility] [facility] Erythrocyte basophilic stipp ling detectionOrdered By: Kallie Chang on 11-04-2021 Basophilic stippling LM Ql (Bld) Rare [facility] Laboratory - Hematology and Cell countsOrdered By: Kallie Chang on 11-04-2021 Band form neutrophils/100 WBC (Bld) 1 % 0-5 [facility] Lymphocytes/100 WBC Auto (Bl d)Ordered By: Kallie Chang on 11-04-2021 Lymphocytes/100 WBC (Bld) 25 % 18-42 [facility] Monocytes/100 WBC Manual cnt (Bld)Ordered By: Kallie Chang on 11-04-2021 Monocytes/100 WBC (Bld) 6 % 2-11 F [facility] Myelocytes/100 WBC Manual cn t (Bld)Ordered By: Kallie Chang on 11-04-2021 Myelocytes/100 WBC (Bld) 3 % 0-0 [facility] No Panel InformationOrdered By: Kallie Chang on 11-04-2021 Rouleau Slight [facility] Segmented neutrophils/100 WB C Manual cnt (Bld)Ordered By: Kallie Chang on 11-04-2021 Segmented neutrophils/100 WBC (Bld) 64 % 50-70 [facility] Otheron 06-06-1998 CONVERTED ELECTRONIC SIGNATURE PATI CARTAGENA, SUPERVISORY SEARCH ENGINE OPTIMIZATION MANAGER (Electronic signature on file) Final Signed Out: 06/06/1998 15:39 [facility] CONVERTED FINAL DIAGNOSIS SPECIMEN ADEQU ACY SATISFACTORY FOR EVALUATION GENERAL CATEGORIZATION BENIGN CELLULAR CHANGES DESCRIPTIVE DIAGNOSIS FUNGAL ORGANISMS MORPHOLOGICALLY CONSISTENT WITH JUAN CARLOS SPECIES. INFLAMMATORY CELL CHANGES. HORMONAL EVALUATION HORMONAL PATTERN COMPATIBLE WITH AGE AND HISTORY [facility] CONVERTED ORDERING PROVIDER Ordering Provider: JAMARI HOYT [facility] CONVERTED PAP DISCLAIMER The Pap test se rves as a screening tool for early detection of cervical cancer. The Pap test does not represent a final diagnostic test for cervical cancer. Furthermore, the Pap test was not designed to screen for other malignancies (endometrial, ovarian cancer, etc....). False negatives and false positives have occurred. If clinically indicated, further patient evaluation is recommended. [facility] Vital Signs Date Time Vital Sign Value Performing Clinician Gianluca parkinson 06-26-2024 14:290500 Body height 160 cm Demetra Sparrow [employer] SAL[employer] Work Phone: [facility] 06-26-2024 14:29-0500 Body mass index (BMI) [Ratio] 28.61 kg/m2 Demetra Sparrow [employer] SAL[employer] Work Phone: [facility] 06-26-2024 14:29-0500 Body temperature 96.8 [degF] Demetra Sparrow [employer] SAL[employer] Work Phone: [facility] 06-26-2024 14:290500 Body weight 73.26 kg Demetra Sparrow [employer] Work Phone: [facility] 06-26-2024 14:29-0500 Diastolic blood pressure 68 mm[Hg] Demetra Sparrow [employer] Work Phone: [facility] 06-26-2024 14:29-0500 Heart rate 85 /min Demetra Sparrow [employer] Work Phone: [facility] 06-26-2024 14:29-0500 Respiratory rate 16 /min Demetra Sparrow [employer] SAL[employer] Work Phone: [facility] 06-26-2024 14:29-0500 SaO2% (BldA) [Mass fraction] 98 % Demetra Sparrow [employer] SAL[employer] Work Phone: [facility] 06-26-2024 14:29-0500 Systolic blood pressure 110 mm[Hg] Demetra Sparrow [employer] SAL[employer] Work Phone: [facility] 06-01-2024 10:32-0500 Body height 160 cm Hi Nguyễn DPM Work Phone: [facility] 06-01-2024 10:32-0500 Body mass index (BMI) [Ratio] 28.52 kg/m2 Hi Nguyễn DPM Work Phone: [facility] 06-01-2024 10:32-0500 Body weight 73.03 kg Hi Nguyễn DPM Work Phone: [facility] 06-01-2024 10:32-0500 Diastolic blood pressure 79 mm[Hg] Hi Nguyễn DPM Work Phone: [facility] 06-01-2024 10:32-0500 Heart rate 83 /min iH Nguyễn DPM Work Phone: [facility] 06-01-2024 10:32-0500 Systolic blood pressure 128 mm[Hg] Hi Nguyễn DPM Work Phone: [facility] 04-17-2024 15:36-0400 Body mass index (BMI) [Ratio] 28.34 kg/m2 Chidi Sergey DO Work Phone: [facility] 04-17-2024 15:36-0400 Body weight 72.58 kg Chidi Sergey DO Work Phone: [facility] 04-17-2024 15:36-0400 Diastolic blood pressure 70 mm[Hg] Chidi Sergey DO Work Phone: [facility] 04-17-2024 15:36-0400 Systolic blood pressure 114 mm[Hg] Chidi Sergey DO Work Phone: [facility] 11-03-2023 15:43-0400 Blood Pressure Location Ismael MCGOWANL [facility] [place] 11-03-2023 15:43-0400 Diastolic blood pressure 66 mm[Hg] Ismael NILL [facility] [place] 11-03-2023 15:43-0400 Heart rate 70 /min Ismael NILL [facility] Surgery [place] 11-03-2023 15:43-0400 Respiratory rate 16 /min Ismael NILL [facility] Surgery [place] 11-03-2023 15:43-0400 Systolic blood pressure 112 mm[Hg] Ismael NILL [facility] Surgery [place] 11-25-2022 14:42-0400 Body temperature 97.8 [degF] MD Eliel Hurd Work Phone: [facility] 11-25-2022 14:42-0400 Body weight 79.83 kg MD Eliel Hurd Work Phone: [facility] 11-25-2022 14:42-0400 Diastolic blood pressure 73 mm[Hg] MD Eliel Hurd Work Phone: [facility] 11-25-2022 14:42-0400 Heart rate 75 /min MD Eliel Hurd Work Phone: [facility] 11-25-2022 14:42-0400 Respiratory rate 16 /min MD Eliel Hurd Work Phone: [facility] 11-25-2022 14:42-0400 SaO2% (BldA) [Mass fraction] 97 % MD Eliel Hurd Work Phone: [facility] 11-25-2022 14:42-0400 Systolic blood pressure 109 mm[Hg] MD Eliel Hurd Work Phone: [facility] 09-18-2022 13:38-0500 Body temperature 98 [degF] MD Eliel Hurd Work Phone: [facility] 09-18-2022 13:38-0500 Body weight 80.4 kg MD Eliel Hurd Work Phone: [facility] 09-18-2022 13:38-0500 Diastolic blood pressure 78 mm[Hg] MD Eliel Hurd Work Phone: [facility] 09-18-2022 13:38-0500 Heart rate 77 /min MD Eliel Hurd Work Phone: [facility] 09-18-2022 13:38-0500 Respiratory rate 16 /min MD Eliel Hurd Work Phone: [facility] 09-18-2022 13:38-0500 SaO2% (BldA) [Mass fraction] 99 % MD Eliel Hurd Work Phone: [facility] 09-18-2022 13:38-0500 Systolic blood pressure 115 mm[Hg] MD Eliel Hurd Work Phone: [facility] 08-14-2022 14:08-0500 Body weight 79.6 kg MD Eliel Hurd Work Phone: [facility] 08-14-2022 14:08-0500 Diastolic blood pressure 68 mm[Hg] MD Eliel Hurd Work Phone: [facility] 08-14-2022 14:08-0500 Heart rate 72 /min MD Eliel Hurd Work Phone: [facility] 08-14-2022 14:08-0500 Respiratory rate 18 /min MD Eliel Hurd Work Phone: [facility] 08-14-2022 14:08-0500 SaO2% (BldA) [Mass fraction] 99 % MD Eliel Hurd Work Phone: [facility] 08-14-2022 14:08-0500 Systolic blood pressure 103 mm[Hg] MD Eliel Hurd Work Phone: [facility] 08-07-2022 13:06-0500 Body temperature 98 [degF] MD Eliel Hurd Work Phone: [facility] 08-06-2022 13:31-0500 Body temperature 97.8 [degF] MD Eliel Hurd Work Phone: [facility] 08-06-2022 13:31-0500 Body weight 76.1 kg MD Eliel Hurd Work Phone: [facility] 08-06-2022 13:31-0500 Diastolic blood pressure 78 mm[Hg] MD Eliel Hurd Work Phone: [facility] 08-06-2022 13:31-0500 Heart rate 60 /min MD Eliel Hurd Work Phone: [facility] 08-06-2022 13:31-0500 Respiratory rate 16 /min MD Eliel Hurd Work Phone: [facility] 08-06-2022 13:31-0500 SaO2% (BldA) [Mass fraction] 95 % MD Eliel Hurd Work Phone: [facility] 08-06-2022 13:31-0500 Systolic blood pressure 115 mm[Hg] MD Eliel Hurd Work Phone: [facility] 07-15-2022 13:06-0500 Body height 160.02 cm MD Eliel Hurd Work Phone: [facility] 07-15-2022 13:06-0500 Body temperature 97.5 [degF] MD Eliel Hurd Work Phone: [facility] 07-15-2022 13:06-0500 Body weight 75.3 kg MD Eliel Hurd Work Phone: [facility] 07-15-2022 13:06-0500 Diastolic blood pressure 61 mm[Hg] MD Eliel Hurd Work Phone: [facility] 07-15-2022 13:06-0500 Heart rate 80 /min MD Eliel Hurd Work Phone: [facility] 07-15-2022 13:06-0500 Respiratory rate 18 /min MD Eliel Hurd Work Phone: [facility] 07-15-2022 13:06-0500 SaO2% (BldA) [Mass fraction] 98 % MD Eliel Hurd Work Phone: [facility] 07-15-2022 13:06-0500 Systolic blood pressure 102 mm[Hg] MD Eliel Hurd Work Phone: [facility] 06-18-2022 10:07-0500 Body height 160.02 cm MD Eliel Hurd Work Phone: [facility] 06-18-2022 10:07-0500 Body temperature 98.4 [degF] MD Eliel Hurd Work Phone: [facility] 06-18-2022 10:07-0500 Body weight 78.9 kg MD Eliel Hurd Work Phone: [facility] 06-18-2022 10:07-0500 Diastolic blood pressure 80 mm[Hg] MD Eliel Hurd Work Phone: [facility] 06-18-2022 10:07-0500 Heart rate 84 /min MD Eliel Hurd Work Phone: [facility] 06-18-2022 10:07-0500 Respiratory rate 20 /min MD Eliel Hurd Work Phone: [facility] 06-18-2022 10:07-0500 SaO2% (BldA) [Mass fraction] 100 % MD Eliel Hurd Work Phone: [facility] 06-18-2022 10:07-0500 Systolic blood pressure 117 mm[Hg] MD Eliel Hurd Work Phone: [facility] 03-19-2022 10:00-0400 Body temperature 98.8 [degF] MD Eliel Hurd Work Phone: [facility] 03-19-2022 10:00-0400 Body weight 90.26 kg MD Eliel Hurd Work Phone: [facility] 03-19-2022 10:00-0400 Diastolic blood pressure 86 mm[Hg] MD Eliel Hurd Work Phone: [facility] 03-19-2022 10:00-0400 Heart rate 68 /min MD Eliel Hurd Work Phone: [facility] 03-19-2022 10:00-0400 Respiratory rate 18 /min MD Eliel Hurd Work Phone: [facility] 03-19-2022 10:00-0400 SaO2% (BldA) [Mass fraction] 98 % MD Eliel Hurd Work Phone: [facility] 03-19-2022 10:00-0400 Systolic blood pressure 125 mm[Hg] MD Eliel Hurd Work Phone: [facility] 02-17-2022 16:00-0400 Body temperature 97.5 [degF] Diana Cashen DO Work Phone: [employer] 02-17-2022 16:00-0400 Diastolic blood pressure 71 mm[Hg] Diana Cashen DO Work Phone: [employer] 02-17-2022 16:00-0400 Heart rate 101 /min Diana Cashen DO Work Phone: [employer] 02-17-2022 16:00-0400 Respiratory rate 23 /min Diana Cashen DO Work Phone: [employer] 02-17-2022 16:00-0400 SaO2% (BldA) [Mass fraction] 95 % Diana Cashen DO Work Phone: [facility] [employer] 02-17-2022 16:00-0400 Systolic blood pressure 134 mm[Hg] Diana Cashen DO Work Phone: [facility] [employer] 02-17-2022 07:21-0400 Body height 160 cm Diana Cashen DO Work Phone: [facility] [employer] 02-17-2022 07:21-0400 Body mass index (BMI) [Ratio] 34.05 kg/m2 Diana Cashen DO Work Phone: [facility] [employer] 02-17-2022 07:21-0400 Body weight 87.18 kg Diana Cashen DO Work Phone: [facility] [employer] 01-15-2022 15:34-0400 Body height 160 cm Fahad Russell MD Work Phone: [facility] 01-15-2022 15:34-0400 Body temperature 98.1 [degF] Fahad Russell MD Work Phone: [facility] 01-15-2022 15:34-0400 Body weight 87.59 kg Fahad Russell MD Work Phone: [facility] 01-15-2022 15:34-0400 Diastolic blood pressure 86 mm[Hg] Fahad Russell MD Work Phone: [facility] 01-15-2022 15:34-0400 Heart rate 72 /min Fahad Russell MD Work Phone: [facility] 01-15-2022 15:34-0400 Systolic blood pressure 149 mm[Hg] Fahad Russell MD Work Phone: [facility] 09-15-2021 15:45-0500 Body height 160.02 cm Franco Stokes Other [employer] Other 09-15-2021 15:45-0500 Body mass index (BMI) [Ratio] 34.36 kg/m2 Franco Stokes Other [employer] Other 09-15-2021 15:45-0500 Body weight 88 kg Franco Stokes Other [employer] Other 07-08-2021 14:14-0500 Body height 160.02 cm MD Eliel Hurd Work Phone: [facility] Encounters Encounter Date Encounter Type Care Provider Facility Start: 07-18-2024 End: 07-19-2024 Refill Demetra Georgek [employer] SAL[employer] Work Phone: [facility] Comment on above: Seasonal allergic rh initis, unspecified trigger Start: 06-26-2024 End: 06-26-2024 Office outpatient visit 15 minutes Demetra Sparrow [employer] Work Phone: [facility] Comment on [...] 06-26-2024 End: 06-26-2024 Bamboo flowsheet Demetra Georgek [employer] SAL[employer] Work Phone: [facility] Start: 06-26-2024 End: 06-26-2024 Bamboo flowsheet Demetra Stephentrick [employer] SAL[employer] Work Phone: [facility] Start: 06-01-2024 [...] 05-02-2024 End: 05-02-2024 Bamboo flowsheet Jacqueline Chavez [employer] EQU[employer]MENT SALES Work Phone: [facility] Start: 05-02-2024 End: 05-02-2024 Bamboo flowsheet Jacqueline Chavez [employer] EQU[employer]MENT SALES Work Phone: [facility] Start: 04-17-2024 [...] 03-22-2024 End: 03-22-2024 Orders Only Demetra Sparrow [employer] Work Phone: [facility] Comment on above: Encounter for wellne ss examination in adult (Primary Dx) Start: 03-22-2024 End: 03-22-2024 Patient encounter status Demetra Andrews [employer] SAL[employer] Work Phone: [facility] Work Phone: Start: 03-09-2024 End: 03-09-2024 ambulatory [facility] Start: 03-09-2024 End: 03-09-2024 ambulatory [facility] Start: 02-03-2024 End: 02-03-2024 ambulatory HI NGUYỄN Not Available Start: 01-18-2024 End: 01-18-2024 ambulatory HI NGUYỄN Not Available Start: 01-13-2024 End: 01-13-2024 ambulatory SHAIKH PATRIA Not Available Start: 01-10-2024 End: 01-10-2024 Patient encounter procedure MD Shaikh España Work Phone: [facility] [place] Work Phone: Start: 01-10-2024 End: 01-10-2024 ambulatory MD Shaikh España Work Phone: [facility] Work Phone: Start: 01-03-2024 End: 01-03-2024 ambulatory HI NGUYỄN Not Available Start: 12-14-2023 End: 12-14-2023 ambulatory SHAIKH PATRIA Not Available Start: 11-03-2023 End: 11-03-2023 ambulatory Ismael BERMAN Facility: [facility] Start: 11-03-2023 End: 11-03-2023 Patient encounter procedure Ismael BERMAN General Surgery [facility] [place] Start: 11-01-2023 End: 11-01-2023 ambulatory SHAIKH PATRIA Not Available Start: 10-28-2023 End: 10-28-2023 ambulatory CASTILLO GONSALEZ Not Available Start: 10-11-2023 End: 10-11-2023 ambulatory CASTILLO Bejarano [employer] Not Available Start: 08-25-2023 Orders Only Shaikh Patria POZO Work Phone: [facility] Comment on above: Left wrist pain (Kesha heber Dx); Pain of left thumb Start: 06-23-2023 ambulatory SYDNIE ANABEL Facility : [facility] Start: 05-04-2023 ambulatory SYDNIE ANABEL Facility : [place] Start: 04-07-2023 End: 04-07-2023 ambulatory MD Eliel Hurd Work Phone: [facility] Work Phone: Start: 04-07-2023 End: 04-07-2023 Patient encounter procedure MD Eliel Hurd Work Phone: [facility] [address] Work Phone: Start: 02-15-2023 End: 02-16-2023 ambulatory Booker Lizarraga MD Facility:[facility] [place] Start: 01-22-2023 ambulatory SYDNIE ANABEL Facility [facility] [place] Start: 01-11-2023 End: 01-12-2023 ambulatory Booker Lizarraga MD Facility:[facility] [place] Start: 12-28-2022 ambulatory ANDYELITZAUS ELHAM Faci lity:[facility] Start: 12-01-2022 ambulatory BRIEN KOEHLER Facility :[facility] Start: 11-25-2022 End: 11-25-2022 ambulatory MD Eliel Hurd Work Phone: [facility] Work Phone: Start: 11-25-2022 End: 11-25-2022 Registered Recurring MD Eliel Hurd Work Phone: [facility] Work Phone: Start: 09-18-2022 End: 09-18-2022 ambulatory MD Eliel Hurd Work Phone: [facility] Work Phone: Start: 09-18-2022 End: 09-18-2022 Registered Recurring MD Eliel Hurd Work Phone: [facility] Work Phone: Start: 08-14-2022 End: 08-14-2022 ambulatory MD Eliel Hurd Work Phone: [facility] Work Phone: Start: 08-14-2022 End: 08-14-2022 Registered Recurring MD Eliel Hurd Work Phone: [facility] Work Phone: Start: 08-06-2022 End: 08-06-2022 ambulatory MD Eliel Hurd Work Phone: [facility] Work Phone: Start: 08-06-2022 End: 08-06-2022 Registered Recurring MD Eliel Hurd Work Phone: [facility] Work Phone: Start: 07-23-[address] DOCTOR STRINGER Facility :[facility] Start: 07-22-2022 End: 07-22-2022 ambulatory MD Eliel Hurd Work Phone: [facility] Work Phone: Start: 07-22-2022 End: 07-22-2022 Registered Recurring MD Eliel Hurd Work Phone: [facility] Work Phone: Start: 06-19-2022 End: 06-19-2022 Patient encounter procedure MD Eliel Hurd Work Phone: [facility] [place] Work Phone: Start: 06-18-2022 End: 06-18-2022 ambulatory MD Eliel Hurd Work Phone: [facility] Work Phone: Start: 06-18-2022 End: 06-18-2022 Registered Recurring MD Eliel Hurd Work Phone: [facility] Start: 04-16-2022 End: 04-16-2022 ambulatory MD Eliel Hurd Work Phone: [facility] Work Phone: Start: 04-16-2022 End: 04-16-2022 Registered Recurring MD Eliel Hurd Work Phone: [facility] Start: 04-16-2022 End: 04-16-2022 Discharged Recurring MD Eliel Hurd Work Phone: [facility] Start: 04-14-2022 End: 04-15-[address] KRISTA ROBERTSON Facility:[facility] Start: 04-07-2022 End: 04-07-[address] CHIDI RINCON . Facility:[facility] Start: 04-05-2022 Encounter for genera l adult medical examination without abnormal findings DR ELIEL HURD . [facility] Start: 2022 End: 04-01-2022 Encounter for general adult medical examination without abnormal findings DR ELIEL HURD . Facility:[facility] Start: 2022 End: 04-01-[address] ELIEL HURD . Facility:[facility] Start: 03-20-2022 Registered Recurring MD Eliel rogers Work Phone: [facility] Start: 03-19-2022 End: 03-19-2022 Registered Recurring MD Eliel Hurd [facility] Start: 03-14-2022 End: 03-14-2022 ambulatory EARNEST HDZ Facility:[facility] Start: 03-12-2022 End: 03-12-2022 Registered Recurring MD Eliel Hurd [facility] Start: 02-18-2022 End: 02-19-2022 ambulatory [facility] Start: 02-17-2022 End: 02-20-2022 ambulatory [facility] Start: 02-17-2022 End: 02-17-2022 ambulatory [facility] Start: 02-17-2022 End: 02-19-2022 Subsequent hospital visit by physician Jackie Everett Room 1 [facility] Comment on above: Malignant neoplasm [...] Start: 02-04-2022 End: 02-07-2022 ambulatory ELIEL HURD [facility] Start: 02-04-2022 End: 02-06-2022 Subsequent hospital visit by physician Lesly OchoaBunch [facility] Comment on above: Malignant neoplasm o f right female breast, unspecified estrogen receptor status, unspecified site of breast (HCC) Start: 01-29-2022 Telephone encounter Xiomara tolliver MD Work Phone: [facility] Comment on above: Appointment Start: 01-15-2022 End: 01-15-2022 Patient encounter procedure Fahad Russell MD Work Phone: Plastic Surgery Comment on above: History of breast ca ncer (Primary Dx); Breast asymmetry following reconstructive surgery Start: 01-15-2022 Telephone encounter Xiomara tolliver MD Work Phone: [facility] Comment on above: Appointment Start: 09-15-2021 End: 09-15-2021 ambulatory Franco Stokes Other [facility] [employer] Other Start: 09-15-2021 Office outpatient ne w 30 minutes Franco Stokes [facility] Neuro[facility] Start: 05-27-1998 End: 05-27-1998 Patient encounter procedure Conversion José Meyer [facility] Start: 05-27-1998 Results Only Conversion José Meyer [facility] Procedures Date Procedure Procedure Detail Performing Clinician Start: 05-02-2024 Radex wrist 2 views Jacqueline Chavez [employer] Work Phone: Start: 04-17-2024 IGP,APTIMA HPV,AGE GDLN [...] MD Work Phone: Start: 05-27-1998 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 Conversion Fransiscoaker Ap Biopsy of breast Ismael [...] 04-27-2028 Screening for malignant neoplasm of cervix [facility] Start: 04-17-2027 Screening for malignant neoplasm of cervix Pap Smear [facility] Start: 04-07-2027 Screening for malignant neoplasm of cervix Pap Smear [facility] Start: 04-18-2025 End: 04-18-2025 Patient encounter procedure 04/18/2025 3:00 PM EDT Office Visit [facility] [address] [place] [address] Chidi Rincon DO [address] [place] [address] [facility] Start: 09-27-2024 End: 09-27-2024 Patient encounter procedure 09/27/2024 2:30 PM EDT Office Visit [facility] [address] [place] [id number] Demetra Sparrow, SAVITA [address] [place] [id number] [facility] Start: 06-26-2024 End: 06-26-2024 Patient encounter procedure [facility] Comment on above: Arrived Start: 06-22-2024 End: 06-22-2024 Patient encounter procedure 06/22/2024 2:20 PM EST Office Visit [facility] [address] [facility] [address] [place] [id number] Hi Nguyễn DPM [address] [facility] [address] [place] [address] [facility] Start: 05-30-2024 End: 05-30-2024 Patient encounter procedure 05/30/2024 2:15 PM EST Office Visit [facility] [address] [facility] [address] [place] [address] Jacqueline Chavez, [employer] [address] [place] [address] [facility] Start: 05-02-2024 End: 05-02-2024 Patient encounter procedure 05/02/2024 2:30 PM EDT Office Visit [facility] [address] [facility] [address] [place] [address] Jacqueline Chavez, [employer]ES [address] [place] [address] Arrived [facility] Comment on above: Arrived [...] Start: 03-19-2024 Influenza vaccination Influenza Vaccine (#1) [facility] Start: 01-10-2024 MR Breast - bilateral [facility] Start: 01-10-2024 MRI of bilateral breasts with contrast MR breast BI wo/w con CAD [facility] Start: 08-25-2023 End: 08-25-2024 XR Hand - left 3 Views XR hand 3+ views left Imaging Routine Left wrist pain Pain of left thumb Expected: 08/25/2023, Expires: 08/25/2024 [facility] Comment on above: Expected: 08/25/2023, Expires: Start: 08-25-2023 End: 08-25-2024 XR Wrist - left 3 Views XR wrist 3+ views left Imaging Routine Left wrist pain Pain of left thumb Expected: 08/25/2023, Expires: 08/25/2024 [facility] Work Phone: Comment on above: Expected: 08/25/2023, Expires: Start: 04-07-2023 [facility] Start: 03-19-2023 Influenza vaccination Influenza Vaccine (#1) [facility] Start: 09-04-2022 End: 09-04-2022 [facility] Start: 09-03-2022 [facility] Start: 08-07-2022 [facility] Start: 08-05-2022 [facility] Start: 07-22-2022 Adrenocorticotropic hormone measurement [facility] Start: 07-22-2022 [facility] Start: 07-09-2022 [facility] Start: 06-19-2022 [facility] Start: 06-18-2022 [facility] Start: 06-17-2022 Adrenocorticotropic hormone measurement [facility] Start: 05-28-2022 [facility] Start: 04-22-2022 Mammography MAMMOGRAM [facility] Start: 03-20-2022 Registered Recurring Registered Recurring [facility] - O/P Start: 03-19-2022 Influenza vaccination [facility] Start: 03-04-2022 End: 03-04-2022 Patient encounter procedure 03/04/2022 Office Visit [place] [address] [facility] [address] [place] [address] [facility] Start: 03-04-2022 End: 03-04-2022 Patient encounter procedure 03/04/2022 Office Visit General Surgery Diana Murguia, DO [address] [facility] [address] [place] [address] [facility] Start: 02-17-2022 End: 02-17-2022 Mast modf rad w/ax lymph nod w/wo pect/gonzalo min BREAST MASTECTOMY RECONSTRUCTION Malignant neoplasm of right female breast, unspecified estrogen receptor status, unspecified site of breast (HCC) 02/17/2022 10:22 [facility] Start: 02-17-2022 End: 02-17-2022 Mastectomy partial BREAST LUMPECTOMY PARTIAL MASTECTOMY Malignant neoplasm of right female breast, unspecified estrogen receptor status, unspecified site of breast (HCC) 02/17/2022 10:22 [facility] Start: 02-09-2022 End: 02-09-2022 Patient encounter procedure 02/09/2022 Office Visit General Surgery Diana Murguia DO [address] [facility] [address] [place] [address] [facility] Start: 12-17-2021 [facility] Start: 11-26-2021 [facility] Start: 11-05-2021 [facility] Start: 10-15-2021 [facility] Start: 09-30-2021 [facility] Start: 09-24-2021 [facility] Start: 09-24-2021 [facility] Start: 09-17-2021 End: 09-17-2021 [facility] Start: 09-16-2021 End: 09-16-2021 [facility] Start: 09-11-2021 End: 09-11-2021 [facility] Start: 09-04-2021 [facility] Start: 08-27-2021 [facility] Start: 08-20-2021 [facility] Start: 08-14-2021 [facility] Start: 08-13-2021 End: 08-14-2021 [facility] Start: 07-30-2021 [facility] Start: 07-28-2021 [facility] Start: 07-21-2021 End: 07-22-2021 [facility] Start: 01-18-2021 COVID-19 VACCINE (3 - Booster for Moderna series) COVID-19 VACCINE (3 - Booster for Moderna series) [facility] Start: 2017 Lipid panel Lipids [facility] [employer] Start: 2012 Diabetes screen [facility] Start: 2007 HPV TESTING HPV TESTING [facility] Start: 2007 Screening for malignant neoplasm of cervix [facility] [employer] Start: 1998 PAP TESTING PAP TESTING [facility] Start: 1998 Screening for malignant neoplasm of cervix Pap smear [facility] [employer] Start: 1996 DTaP/Tdap/Td vaccine (1 - Tdap) DTaP/Tdap/Td vaccine (1 - Tdap) [facility] [employer] Start: 1996 Urine microalbumin profile DTAP,TDAP,TD (1 - Tdap) [facility] Start: 1995 HEPATITIS C SCREENING HEPATITIS C SCREENING [facility] Start: 1995 Hepatitis C screening Hepatitis C screen [facility] Start: 1995 HIV SCREENING HIV SCREENING [facility] Start: 1992 HIV screening HIV screen [facility] [employer] Start: 1989 Adult depression screening assessment [facility] Start: 1989 Depression Screen Depression Screen [facility] Start: 1977 COVID-19 Vaccine (#1) COVID-19 Vaccine (#1) [facility] [employer] Start: 1977 Screening for malignant neoplasm of colon [facility] Adrenocorticotropic hormone measurement [facility] Work Phone: Adrenocorticotropic hormone measurement [facility] Adrenocorticotropic hormone measurement [facility] Adrenocorticotropic hormone measurement [facility] Adrenocorticotropic hormone measurement [facility] Adrenocorticotropic hormone measurement [facility] Basophils [#/volume] in Blood by Automated count [facility] Basophils/100 leukoc ytes in Blood by Automated count [facility] Comprehensive metabo lic 1999 panel - Serum or Plasma [facility] Work Phone: Comprehensive metabo lic 1999 panel - Serum or Plasma [facility] Comprehensive metabo lic 1999 panel - Serum or Plasma [facility] Comprehensive metabo lic 1999 panel - Serum or Plasma [facility] Comprehensive metabo lic 1999 panel - Serum or Plasma [facility] Comprehensive metabo lic 1999 panel - Serum or Plasma [facility] Comprehensive metabo lic 1999 panel - Serum or Plasma [facility] Comprehensive metabo lic 1999 panel - Serum or Plasma [facility] Comprehensive metabo lic 1999 panel - Serum or Plasma [facility] Cortisol [Mass/volum e] in Serum or Plasma [facility] Work Phone: Cortisol [Mass/volum e] in Serum or Plasma [facility] Cortisol [Mass/volum e] in Serum or Plasma [facility] Cortisol [Mass/volum e] in Serum or Plasma [facility] Cortisol [Mass/volum e] in Serum or Plasma [facility] Cortisol [Mass/volum e] in Serum or Plasma [facility] CT Head WO and W con trast IV [facility] Work Phone: CT Head WO and W con trast IV [facility] Eosinophils [#/volum e] in Blood [facility] Eosinophils/100 leuk ocytes in Blood by Automated count [facility] Erythrocyte distribu tion width [Ratio] by Automated count [facility] Erythrocytes [#/volu me] in Blood [facility] Hematocrit [Volume Fraction] of Blood [facility] Hemoglobin [Mass/vol ume] in Blood [facility] End: 02-17-2022 INITIATE PACU OXYGEN THERAPY PROTOCOL Initiate PACU Oxygen Therapy Protocol Respiratory Care Routine Continuous until discontinued starting 02/17/2022 [employer] Phone: Comment on above: Continuous until discontinued starting 0 02/17/2022 Leukocytes [#/volume ] corrected for nucleated erythrocytes in Blood by Automated coun [facility] Leukocytes [#/volume ] in Blood [facility] Lymphocytes [#/volum e] in Blood by Automated count [facility] Lymphocytes/100 leuk ocytes in Blood by Automated count [facility] End: 02-17-2022 [employer]IE [employer] LOCALIZATION RIGHT [employer] RIGHT Imaging Routine Abnormal mammogram Once for 1 Occurrences starting 02/17/2022 until 02/17/2022 [employer] Phone: Comment on above: Once for 1 Occurrences starting 02/18/20 until 02/17/2022 MCH [Entitic mass] b y Automated count [facility] MCHC [Mass/volume] b y Automated count [facility] MCV [Entitic volume] by Automated count [facility] MG Breast - bilatera l Diagnostic [facility] Monocytes [#/volume] in Blood by Automated count [facility] Monocytes/100 leukoc ytes in Blood by Automated count [facility] Neutrophils [#/volum e] in Blood by Automated count [facility] Neutrophils/100 leuk ocytes in Blood by Automated count [facility] Nucleated erythrocyt es [Presence] in Blood by Automated count [facility] Oxygen therapy [Mini [facility] Data Set] Initiate Oxygen Therapy Protocol Respiratory Care Routine Daily until discontinued starting 02/17/2022 [employer] Phone: Comment on above: Daily until discontinued starting 2021 Platelet mean volume [Entitic volume] in Blood by Automated count [facility] Platelets [#/volume] in Blood [facility] Surgical Pathology Surgical Path ology Lab Routine Malignant neoplasm of right female breast, unspecified estrogen receptor status, unspecified site of breast (HCC) Release Upon Ordering for 1 Occurrences starting 02/17/2022 [employer] Phone: Comment on above: Release Upon Ordering for 1 Occurrences starting 02/17/2022 End: 02-17-2022 SURGICAL PATHOLOGY REPORT SURGICAL PATHOLOGY REPORT Lab Routine Once for 1 Occurrences starting 02/17/2022 until 02/17/2022 [facility] Work Phone: Comment on above: Once for 1 Occurrences starting 02/18/20 until 02/17/2022 THIN PREP TIS PAP AN D HR HPV DNA THIN PREP TIS PAP AND HR HPV DNA Pathology and Cytology Routine Well woman exam with routine gynecological exam Ordered: 04/17/2024 [facility] Work Phone: Comment on above: Ordered: 04/17/2024 Thyrotropin [Units/v olume] in Serum or Plasma [facility] Work Phone: Thyrotropin [Units/v olume] in Serum or Plasma [facility] Thyrotropin [Units/v olume] in Serum or Plasma [facility] Thyrotropin [Units/v olume] in Serum or Plasma [facility] Thyrotropin [Units/v olume] in Serum or Plasma [facility] Thyrotropin [Units/v olume] in Serum or Plasma [facility] Thyroxine (T4) free [Mass/volume] in Serum or Plasma [facility] Work Phone: Thyroxine (T4) free [Mass/volume] in Serum or Plasma [facility] Thyroxine (T4) free [Mass/volume] in Serum or Plasma [facility] Thyroxine (T4) free [Mass/volume] in Serum or Plasma [facility] Thyroxine (T4) free [Mass/volume] in Serum or Plasma [facility] Thyroxine (T4) free [Mass/volume] in Serum or Plasma [facility] [place] Immunizations Immunization Date Immunization Notes Care Provider [facility] 08-21-2020 Moderna SARS-CoV-2 Vaccination Shaikh Patria POZO Work Phone: [facility] 07-25-2020 Moderna SARS-CoV-2 Vaccination Shaikh Patria POZO Work Phone: [facility] 04-26-2018 influenza, injectabl e, quadrivalent, preservative free Shaikh Patria POZO Work Phone: [facility] 04-26-2018 influenza virus vacc ine, unspecified formulation Shaikh Patria POZO Work Phone: [facility] Healthcare Payers Date Payer Category Payer Self-pay [id number] 2022 [facility] [id number] 2022 Unknown 2022 Unknown [id number] 2021 Unknown MMO MMO [employer]PER[employer] PLUS [id number] 2021-Present [phone] [address] [place] [address] PPO [id number]. [id number] 2019 Unknown [id number] 2..840.1.062441.19 1977 Unknown [id number] 2..840.1.430670.3.579.2. 177 1977 Unknown [id number] 2.840.1.104443.3.579.2. 177 1977 Unknown [id number] 2.16.840.1.183123.3.579.2. 175 1977 Unknown [id number] 2.16.840.1.067320.3.579.2. 175 1977 Unknown [id number] 2.16.840.1.909945.3.579.2. 593 1977 Unknown [id number] 2.16.840.1.390577.3.579.2. 593 1977 Unknown [id number] 2.16.840.1.932851.3.579.2. 593 1977 Unknown [id number] 2.16.840.1.705308.3.579.2. 593 1977 Unknown [id number] 2.16.840.1.185454.3.579.2. 593 1977 Unknown [id number] 2.16.840.1.691029.3.579.2. 593 1977 Unknown [id number] 2.16.840.1.760329.3.579.2. 593 1977 Unknown [id number] 2.16.840.1.308423.3.579.2. 593 1977 Unknown [id number] 2.16.840.1.327144.3.579.2. 196 1977 Unknown [id number] 2.16.840.1.815527.3.579.2. 196 1977 Unknown [id number] 2.16.840.1.896044.3.579.2. 727 1977 Unknown [id number] 2.16.840.1.168867.3.579.2. 727 1977 Unknown [id number] 2.16.840.1.936076.3.579.2. 1259 1977 Unknown [id number] 2.16.840.1.966619.3.579.2. 9 1977 Unknown [id number] 2.16.840.1.235438.3.579.2. 1258 1977 Unknown [id number] 2.16.840.1.112388.3.579.2. 1258 1977 Unknown [id number] 2.16.840.1.161988.3.579.2. 1258 1977 Unknown [id number] 2.16.840.1.736507.3.579.2. 1258 1977 Unknown [id number] 2..840.1.464665.3.579.2. 1258 1977 Unknown [id number] 2.840.1.984790.3.579.2. 1258 1977 Unknown [id number] 2.0.1.599127.3.579.2. 1258 1977 Unknown [id number] 2.0.1.139236.3.579.2. 1258 1977 Unknown [id number] 2.0.1.845653.3.579.2. 1258 1977 Unknown [id number] 2.16840.1.172735.3.579.2. 1258 1977 Unknown [id number] 2.840.1.355154.3.579.2. 1258 1977 Unknown [id number] 2.840.1.248209.3.579.2. 1258 Unknown [id number] Unknown HCAP/HFA/FAP Active [id number] Unknown [id number] 2840.1.450154.3.579.2. 531 Social History Date Type Detail Facility Tobacco smoking status [facility] Unknown if ever smoked [facility] Start: 1975 Sex Assigned At Not on file [facility] Start: 04-12-2023 End: 01-13-2024 Sex Assigned At [facility] Start: 01-15-2022 End: 11-25-2022 Tobacco smoking status NHIS Ex-smoker [facility] Start: 01-15-2022 End: 11-01-2023 Tobacco use and exposure Smokeless tobacco non-user [facility] Start: 1975 Sex Assigned At Female [facility] Start: 01-13-2022 End: 02-17-2022 Exposure to SARS-CoV-2 (event) Not sure [facility] History of tobacco use Current smoker [employer] Phone: Start: 02-04-2022 Tobacco use and exposure Former smokeless tobacco user [employer] Phone: Start: 02-17-2022 End: 06-26-2024 Alcohol intake Lifetime non-drinker (finding) [employer] Phone: Start: 02-01-2023 End: 11-01-2023 Tobacco smoking status KYIS Never smoked tobacco [facility] Start: 04-12-2023 End: 01-13-[address] [facility] Start: 03-01-2023 Alcohol Comment caffeine: 1-2 cups per day coffee [facility] Tobacco smoking status Never General Surgery Kenna NEGATED: Highlighted rowStart: NINF History of tobacco use Passive smoker [facility] Functional Status Date Assessment Result Facility 11-03-2023 Functional Status N/A [facility] Clinical Notes 07-08-2021 to 06-26-2024 Demetra Sparrow, [...] were not included. 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 Jacqueline Chavez FISH CULTURIST-CHANGE CONTROL ANALYST ASSESSMENT: ICD-10-CM 1. Left wrist pain M25.532 [...] develop for requiring urgent evaluation. Jacqueline Chavez APRN-CHANGE CONTROL ANALYST documented in this encounter [facility] 04-17-2024 History of Present illness Narrative Reason [...] SOCIAL HISTORY Past Medical History: Diagnosis Date Cameron's disease (CMS/HCC) Arthritis Breast cancer screening by mammogram 05/26/2021 RIGHT BX DUE TO MASS. CALCIFICATION SLIGHTNESS Breast lump Cancer (CMS/HCC) right breast Chicken pox Family history of cancer Genetic testing negative History of breast cancer History of breast problem Right Breast ER/IN/Her3 neg History of right breast cancer Hypercholesterolemia [...] Chidi Rincon DO documented in this encounter [facility] 03-09-2024 Note Attestation signed by Awa Maradiaga [...] which she received immunotherapy with Keytruda from [id number]. She developed severe fatigue and weakness after [...] Behavior: Behavior normal. LABS: Recent Data from [facility] Related to ALL THYROID STIM HORMONE Component [...] not able t (more content not included)... [facility] 11-03-2023 Note Chief Complaint consultation for [...] Medications buPR (more content not included)... [facility] Comment on above: Result Comment: Elec tronically Signed By: ANTONELLA POZO, Ismael Kelly\Date and Time Signed: 11/03/23 16:46 EDT 08-25-2023 History of Present illness Narrative Xr wrist documented in this encounter [facility] 09-19-2022 Progress note Note Date/Time September 18, 2022 1:44pm [facility] [place] [address] Hem/Onc Follow Up Note - OP Signed Patient: Tenisha Hancock MR#: [id number] : 1975 Acct:[id number] Age/Sex: 47 / F Type: REG RCR [...] hydrocortisone 20mg am/10mg pm. Will f/u with [employer] next week to review symptoms. We may [...] right mastopexy on 02/17/2022 by Drs. Saunders/Drew ([facility]). Her pathology returned with no evidence [...] Simons and has an appointment scheduled at [facility] to discuss josep flap surgery as well. [...] overall good. BRCA testing was done through [employer] and is negative. She does have left [...] I willdefer to his impression and recommendations. 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 This is a 46-year-old female who works at [employer] with triple negative breast cancer, referred for [...] was referred to Dr. Ismael Red for Vssgok-q-Noop which she has had placed. [facility]. Because of insurance reasons, she will be getting her treatment here at [facility]. She has had echocardiography as well. According the patient an MRI was obtained prior to neoadjuvant therapy while she was at [facility] we are requesting this prior study. [...] was referred to Dr. Ismael Red for Olcleg-m-Hbho which she has had placed. [facility]. Because of insurance reasons, she will be getting her treatment here at [facility]. She has had echocardiography as well. PET/CT [...] 9 cycles --Original breast MRI obtained from [facility] from May 2021, follow-up breast MRI [...] preoperatively in late December. 2. 02/17/2022 at [facility], Drs. Saunders/Shantal: needle localized lumpectomy with [...] Allergies Allergy (Verified 09/18/22 13:38) Home Medications iwkbrht-vczcskykldvci-zhlbzjcm 250 mg-250 mg-65 mg tablet (Excedrin Migraine) [...] % (Auto) 91.1, Lymph % (Auto) 6.2, Prentiss % (Auto) 2.3, Eos % (Auto) 0.1, Baso % (Auto) 0.3, Nucleat RBC Rel Count 0.1, Neut # (Auto) 10.4 H, Lymph # (Auto) 0.7 L, Prentiss # (Auto) 0.3, Eos # (Auto) 0.0, [...] see in consultation by Dr. Smith at [facility] in [place], [place]; however, due to insurance reasons [facility]. In reviewing notes from her prior physician [...] do not have records from this from [facility] in [place]. I am requesting this to evaluate her [...] testing returned negative from prior physicians at [facility]. BRCA testing negative Follow-up September is [...] We will review her prior MRI from [facility] in May 2021 in comparison to [...] MRI was reviewed and [facility] tumor board with Dr. Reza and [...] with sentinel lymph node biopsy 02/17/2022 in [place]. Adjuvant radiation completed 05/04-06/16/2022. Total of 30 [...] for coordination of care (as documented) and huzn-hv-gthc counseling of patient and/or family. Dictated By: Kallie Chang MD DD/ [id number] Signed By: <Electronically signed by MD Kallie Chang> 09/18/221 [facility] Work Phone: 1(616) 934-872302-18-2023 Progress note Author Kallie Chang [facility] September 04, 2022 10:35pm Note Date/Time September 04, 2022 1:11pm [facility] [place] [address] Hem/Onc Follow Up Note - OP Signed Patient: Tenisha Hancock MR#: [id number] : 1975 Acct:[id number] Age/Sex: 47 / F Type: REG RCR [...] hydrocortisone 20mg am/10mg pm. Will f/u with [employer] next week to review symptoms. We may [...] right mastopexy on 02/17/[address] Saunders/Drew ([facility]). Her pathology returned with no evidence [...] Simons and has an appointment scheduled at [facility] to discuss josep flap surgery as well. [...] overall good. BRCA testing was done through [employer] and is negative. She does have left [...] I willdefer to his impression and recommendations. 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 This is a 46-year-old female who works at [employer] with triple negative breast cancer, referred for [...] was referred to Dr. Ismael Red for Xmoxht-g-Sbcu which she has had placed. [facility]. Because of insurance reasons, she will be getting her treatment here at [facility]. She has had echocardiography as well. According the patient an MRI was obtained prior to neoadjuvant therapy while she was at [facility] we are requesting this prior study. [...] was referred to Dr. Ismael Red for Gzevlj-b-Pkjx which she has had placed. [facility]. Because of insurance reasons, she will be getting her treatment here at [facility]. She has had echocardiography as well. PET/CT [...] 9 cycles --Original breast MRI obtained from [facility] from May 2021, follow-up breast MRI [...] preoperatively in late December. 2. 02/17/2022 at [facility], Drs. Saunders/Shantal: needle localized lumpectomy with [...] Allergies Allergy (Verified 09/04/22 13:03) Home Medications xzpjotr-uylzwutglbfoy-hsbwuqvk 250 mg-250 mg-65 mg tablet (Excedrin Migraine) [...] see in consultation by Dr. Smith at [facility] in [place], [place]; however, due to insurance reasons the patient transferredcare to [facility]. In reviewing notes from her prior physician [...] do not have records from this from [facility] in [place]. I am requesting this to evaluate her [...] testing returned negative from prior physicians at [facility]. BRCA testing negative Follow-up September is [...] We will review her prior MRI from [facility] in May 2021 in comparison to [...] MRI was reviewed and [facility] tumor board with Dr. Reza and [...] for coordination of care (as documented) and mqup-pj-ulsi counseling of patient and/or family. Dictated By: Kallie Chang MD DD/ 1308 Signed By: <Electronically signed by MD Kallie Chang> 09/04/22 5[address] [facility] Work Phone: 1([phone]) 551-238102-03-2023 Progress note Author Heber Arriaga [facility] August 21, 2022 1:13pm Note Date/Time August 14, 2022 2 :16pm [facility] [place] [address] Hem/Onc Follow Up Note - OP Signed Patient: Tenisha Hancock MR#: [id number] : 1975 Acct:[id number] Age/Sex: 47 / F Type: REG RCR [...] hydrocortisone 20mg am/10mg pm. Will f/u with [employer] next week to review symptoms. We may [...] right mastopexy on 02/17/2022 by Drs. Saunders/Drew ([facility]). Her pathology returned with no evidence [...] Simons and has an appointment scheduled at [facility] to discuss josep flap surgery as well. [...] overall good. BRCA testing was done through [employer] and is negative. She does have left [...] I willdefer to his impression and recommendations. [place]: This is a 46 year old female, recently diagnosed with triple negative right breast cancer; currently undergoing neoadjuvant pembrolizumab, carboplatin AUC 4and weekly paclitaxel x6 cycles, which commenced: 07/22/2021. This is a 46-year-old female who works at [employer] with triple negative breast cancer, referred for [...] was referred to Dr. Ismael Red for Stosdk-o-Tecs which she has had placed. [facility]. Because of insurance reasons, she will be getting her treatment here at [facility]. She has had echocardiography as well. According the patient an MRI was obtained prior to neoadjuvant therapy while she was at [facility] we are requesting this prior study. [...] was referred to Dr. Ismael Red for Qolfnd-a-Gyxw which she has had placed. [facility]. Because of insurance reasons, she will be getting her treatment here at [facility]. She has had echocardiography as well. PET/CT [...] 9 cycles --Original breast MRI obtained from [facility] from May 2021, follow-up breast MRI [...] preoperatively in late December. 2. 02/17/2022 at [facility], Drs. Saunders/Shantal: needle localized lumpectomy with [...] Allergies Allergy (Verified 08/06/22 13:31) Home Medications emubfoz-odgrhnkqacpwe-zstlyhag 250 mg-250 mg-65 mg tablet (Excedrin Migraine) [...] see in consultation by Dr. Smith at [facility] in [place], [place]; however, due to insurance reasons the patient transferredcare to [facility]. In reviewing notes from her prior physician [...] do not have records from this from [facility] in [place]. I am requesting this to evaluate her [...] testing returned negative from prior physicians at [facility]. BRCA testing negative Follow-up September is [...] We will review her prior MRI from [facility] in May 2021 in comparison to [...] MRI was reviewed and [facility] tumor board with Dr. Reza and [...] for coordination of care (as documented) and cihd-pr-dfzn counseling of patient and/or family. Dictated By: Heber Arriaga APRN DD/ 1416 Signed By: <Electronically signed by PETE Arriaga> 08/21/22 [address] [facility] Work Phone: 1(755) 277-818001-20-2023 Progress note Author Kallie Chang [facility] August 07, 2022 1:00pm Note Date/Time August 06, 2022 1 :39pm [facility] [place] [address] Hem/Onc Follow Up Note - OP Signed Patient: Tenisha Hancock MR#: [id number] : 1975 Acct:[id number] Age/Sex: 47 / F Type: REG RCR [...] hydrocortisone 20mg am/10mg pm. Will f/u with [employer] next week to review symptoms. We may [...] right mastopexy on 02/17/[address] Saunders/Drew ([facility]). Her pathology returned with no evidence [...] Simons and has an appointment scheduled at [facility] to discuss josep flap surgery as well. [...] overall good. BRCA testing was done through [employer] and is negative. She does have left [...] I willdefer to his impression and recommendations. [place]: This is a 46 year old female, recently diagnosed with triple negative right breast cancer; currently undergoing neoadjuvant pembrolizumab, carboplatin AUC 4and weekly paclitaxel x6 cycles, which commenced: 07/22/2021. This is a 46-year-old female who works at [employer] with triple negative breast cancer, referred for [...] was referred to Dr. Ismael Red for Vpmcxl-n-Wsgq which she has had placed. She has seen my colleague Dr. Smith at the [facility] recommended neoadjuvant chemotherapy and immunotherapy. Because of insurance reasons, she will be getting her treatment here at [facility]. She has had echocardiography as well. According the patient an MRI was obtained prior to neoadjuvant therapy while she was at [facility] we are requesting this prior study. [...] was referred to Dr. Ismael Red for Advftk-s-Vdcg which she has had placed. She has seen my colleague Dr. Smith at the [facility] recommended neoadjuvant chemotherapy and immunotherapy. Because of insurance reasons, she will be getting her treatment here at [facility]. She has had echocardiography as well. PET/CT [...] 9 cycles --Original breast MRI obtained from [facility] from May 2021, follow-up breast MRI [...] preoperatively in late December. 2. 02/17/2022 at [facility], Drs. Saunders/Shantal: needle localized lumpectomy with [...] Allergies Allergy (Verified 08/06/22 13:31) Home Medications wetbtrz-jfuiofrvcssry-tdjdmvrl 250 mg-250 mg-65 mg tablet (Excedrin Migraine) [...] % (Auto) 92.9, Lymph % (Auto) 5.5, Prentiss % (Auto) 1.4, Eos % (Auto) 0.0, Baso % (Auto) 0.2, Nucleat RBC Rel Count 0.0, Neut # (Auto) 8.7 H, Lymph # (Auto) 0.5 L, Prentiss # (Auto) 0.1, Eos # (Auto) 0.0, [...] see in consultation by Dr. Smith at [facility] in [place], [place]; however, due to insurance reasons the patient transferredcare to [facility]. In reviewing notes from her prior physician [...] do not have records from this from [facility] in [place]. I am requesting this to evaluate her [...] testing returned negative from prior physicians at [facility]. BRCA testing negative Follow-up September is [...] We will review her prior MRI from [facility] in May 2021 in comparison to [...] MRI was reviewed and [facility] tumor board with Dr. Reza and [...] with sentinel lymph node biopsy 02/17/2022 in [place]. Adjuvant radiation completed 05/04-06/16/2022. Total of 30 [...] for coordination of care (as documented) and vfam-uf-hqrm counseling of patient and/or family. Dictated By: Kallie Chang MD DD/ 1338 Signed By: <Electronically signed by MD Kallie Chang> 08/07/22 [address] [facility] Work Phone: 1([phone]) 211-182001-06-2023 Progress note Author Kallie Chang [facility] July 24, 2022 11:26am Note Date/Time July 23, 2022 1: 43pm [facility] at [address] [address] Hem/Onc Follow Up Note - OP Signed Patient: Tenisha Hancock MR#: [id number] : 1975 Acct:[id number] Age/Sex: 47 / F Type: REG RCR [...] hydrocortisone 20mg am/10mg pm. Will f/u with [employer] next week to review symptoms. We may [...] right mastopexy on 02/17/20[address] Drs[address] Saunders/Drew ([facility]). Her pathology returned with no evidence [...] Simons and has an appointment scheduled at [facility] to discuss josep flap surgery as well. [...] overall good. BRCA testing was done through [employer] and is negative. She does have left [...] I willdefer to his impression and recommendations. [place]: This is a 46 year old female, recently diagnosed with triple negative right breast cancer; currently undergoing neoadjuvant pembrolizumab, carboplatin AUC 4and weekly paclitaxel x6 cycles, which commenced: 07/22/2021. This is a 46-year-old female who works at [employer] with triple negative breast cancer, referred for [...] was referred to Dr. Ismael Red for Hajzpu-h-Qswz which she has had placed. She has [facility] my [facility] neoad[facility] and immunotherapy. Because of insurance reasons, she will be getting her treatment here at [facility]. She has had echocardiography as well. According the patient an MRI was obtained prior to neoadjuvant therapy while shewas at [facility] we are requesting this prior study. [...] was referred to Dr. Ismael Red for Xgdlwf-m-Tleh which she has had placed. [facility]. Because of insurance reasons, she will be getting her treatment here at [facility]. She has had echocardiography as well. PET/CT [...] 9 cycles --Original breast MRI obtained from [facility] from May 2021, follow-up breast MRI [...] preoperatively in late December. 2. 02/17/2022 at [facility], Drs. Saunders/Drew: needle localized lumpectomy with [...] Allergies Allergy (Verified 07/23/22 13:29) Home Medications xftekgm-pxlrsibhrusxf-jvyteiun 250 mg-250 mg-65 mg tablet (Excedrin Migraine) [...] % (Auto) 71.8, Lymph % (Auto) 19.9, Prentiss % (Auto) 6.3, Eos % (Auto) 1.3, Baso % (Auto) 0.7, Nucleat RBC Rel Count 0.2, Neut # (Auto) 4.6, Lymph # (Auto) 1.3, Prentiss # (Auto) 0.4, Eos # (Auto) 0.1, [...] see in consultation by Dr. Smith at [facility] in [place], [place]; however, due to insurance reasons the patient transferredcare to [facility]. In reviewing notes from her prior physician [...] do not have records from this from [facility] in [place]. I am requesting this to evaluate her [...] testing returned negative from prior physicians at [facility]. BRCA testing negative Follow-up September is [...] We will review her prior MRI from [facility] in May 2021 in comparison to [...] MRI was reviewed and [facility] tumor board with Dr. Reza and [...] with sentinel lymph node biopsy 02/17/2022 in [place]. Adjuvant radiation completed 05/04-06/16/2022. Total of 30 [...] for coordination of care (as documented) and jvxe-qf-yafj counseling of patient and/or family. Dictated By: Kallie Chang MD DD/ 1342 Signed By: <Electronically signed by MD Kallie Chang> 07/24/22 [address] [facility] Work Phone: [phone]) 132-430912-28-2022 Progress note Author Stacie Thomas [facility] July 15, 2022 1:57pm Note Date/Time July 15, 2022 9:31am [facility] [place] [address] Rad Onc Follow Up Note - OP Signed Patient: Tenisha Hancock MR#: [id number] : 1975 Acct:[id number] Age/Sex: 47 / F Type: REG RCR [...] 0 out of 5 lymph nodes involved. [id number]. In review of her operative note as [...] notes her BRCA testing was done through [employer] and was negative. Also appears the right breast mass was palpable in the lower mid quadrant of the breast. [facility]. Due to insurance reasons she received her systemic therapy here at [facility]. PET/CT was denied by insurance. CT scan of the chest abdomen pelvis on July 16, 2021 was negative for metastatic disease. Her clinical stage at presentation was cT2N0. June 11, 2021 patient did undergo an MRI in [place]. I do not have that report available [...] 0 out of 5 lymph nodes negative. [id number]. Pathology was negative for LVSI. Of note [...] <Electronically signed by Stacie Thomas MD> 07/15/22 [address] [facility] Work Phone: 1([phone]) 131-330712-02-2022 Progress note Author Kallie Chang [facility] June 19, 2022 9:06am Note Date/Time June 18, 2022 1 0:26am [facility] [place] [address] Hem/Onc Follow Up Note - OP Signed Patient: Tenisha Hancock MR#: [id number] : 1975 Acct:[id number] Age/Sex: 47 / F Type: REG RCR [...] hydrocortisone 20mg am/10mg pm. Will f/u with [employer] next week to review symptoms. We may [...] right mastopexy on 02/17/2022 [address] Drs. Saunders/Drew ([facility]). Her pathology returned with no evidence [...] Simons and has an appointment scheduled at [facility] to discuss josep flap surgery as well. [...] plan of therapy. Previous notes from Dr. Pohenix, last seen 08/18/2021: Tenisha presents August 20, [...] overall good. BRCA testing was done through [employer] and is negative. She does have left [...] I willdefer to his impression and recommendations. [place]: This is a 46 year old female, recently diagnosed with triple negative right breast cancer; currently undergoing neoadjuvant pembrolizumab, carboplatin AUC 4and weekly paclitaxel x6 cycles, which commenced: 07/22/2021. This is a 46-year-old female who works at [employer] with triple negative breast cancer, referred for [...] was referred to Dr. Ismael Red for Smgmpi-i-Rvru which she has had placed. [facility]. Because of insurance reasons, she will be getting her treatment here at [facility]. She has had echocardiography as well. According the patient an MRI was obtained prior to neoadjuvant therapy while she was at [facility] we are requesting this prior study. [...] was referred to Dr. Ismael Red for Nnyvne-s-Rugq which she has had placed. She [facility]. Because of insurance reasons, she will be getting her treatment here at [facility]. She has had echocardiography as well. PET/CT [...] 9 cycles --Original breast MRI obtained from [facility] from May 2021, follow-up breast MRI [...] preoperatively in late December. 2. 02/17/2022 at [facility], Drs. Saunders/Drew: needle localized lumpectomy with [...] Allergies Allergy (Verified 03/12/22 08:56) Home Medications cyvtump-ostksuighztah-jdspzwht 250 mg-250 mg-65 mg tablet (Excedrin Migraine) [...] % (Auto) 69.1, Lymph % (Auto) 17.2, Prentiss % (Auto) 10.3, Eos % (Auto) 2.7, Baso % (Auto) 0.7, Nucleat RBC Rel Count 0.0, Neut # (Auto) 3.5, Lymph # (Auto) 0.9 L, Prentiss # (Auto) 0.5, Eos # (Auto) 0.1, [...] see in consultation by Dr. Smith at [facility] in [place], [place]; however, due to insurance reasons the patient transferredcare to [facility]. In reviewing notes from her prior physician [...] do not have records from this from [facility] in [place]. I am requesting this to evaluate her [...] testing returned negative from prior physicians at [facility]. BRCA testing negative Follow-up September is [...] We will review her prior MRI from [facility] in May 2021 in comparison to [...] toxicities. MRI was reviewed and [facility] tumor board with Dr. Reza [...] with sentinel lymph node biopsy 02/17/2022 in [place]. Adjuvant radiation completed 05/04-06/16/2022. Total of 30 [...] giving hydrocortisone for symptom management. Reassess by [employer] for tolerance of therapy in 1 week. 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 Dictated By: Kallie Chang MD DD/ 1026 Signed By: <Electronically signed by MD Kallie Chang> 06/19/22 [address] [facility] Work Phone: [phone]) 805-917509-30-2022 Progress note Author Stacie Thomas [facility] April 17, 2022 9:21am Note Date/Time April 16, 2022 9:02am [facility] [place] [id number] Rad Onc Follow Up Note - OP Signed with Ezra Patient: Tenisha Hancock MR#: [id number] : 1975 Acct:[id number] Age/Sex: 47 / F Type: REG RCR [...] 0 out of 5 lymph nodes involved. [id number]. In review of her operative note as [...] notes her BRCA testing was done through [employer] and was negative. Also appears the right breast mass was palpable in the lower mid quadrant of the breast. [facility]. Due to insurance reasons she received her systemic therapy here at [facility]. PET/CT was denied by insurance. CT scan of the chest abdomen pelvis on July 16, 2021 was negative for metastatic disease. Her clinical stage at presentation was cT2N0. June 11, 2021 patient did undergo an MRI in [place]. I do not have that report available [...] 0 out of 5 lymph nodes negative. [id number]. Pathology was negative for LVSI. Of note [...] signed by Stacie Thomas MD> 04/16/22 [address] [facility] Work Phone: [phone]) 286-894809-13-2022 NotePROCEDURE: XR GI UPPER AIR KUB DUAL [...] Electronically authenticated by: BARBER VASQUEZ Date: 2022 14:36[facility]09-13-2022 NotePROCEDURE: XR GI UPPER AIR KUB [...] Electronically authenticated by: BARBER VASQUEZ Date: 2022 14:36[facility]09-01-2022 Consult note Author Stacie Thomas [facility] March 19, 2022 10:56am Note Date/Time March 18, 2022 3: [address] [place] [address] [place] [address] Rad Onc Consult Note - OP Signed Patient: Tenisha Hancock MR#: [id number] : 1975 Acct:[id number] Age/Sex: 46 / F Type: REG RCR [...] 0 out of 5 lymph nodes involved. [id number]. In review of her operative note as [...] notes her BRCA testing was done through [employer] and was negative. Also appears the right breast mass was palpable in the lower mid quadrant of the breast. [facility]. Due to insurance reasons she received her systemic therapy here at [facility]. PET/CT was denied by insurance. CT scan of the chest abdomen pelvis on July 16, 2021 was negative for metastatic disease. Her clinical stage at presentation was cT2N0. June 11, 2021 patient did undergo an MRI in [place]. I do not have that report available [...] 0 out of 5 lymph nodes negative. [id number]. Pathology was negative for LVSI. Of note [...] no other breast related complaints. [facility] - Medical History Medical History: [...] Allergies Allergy (Verified 03/12/22 08:56) Home Medications zxhtyvj-oteyfadmjeqhc-yzidyinf 250 mg-250 mg-65 mg tablet (Excedrin Migraine) [...] signed by Stacie Thomas MD> 03/19/22 10[address] [facility] Work Phone: 1([phone]) 290-193908-31-2022 Consult note Author Stacie Thomas [facility] March 19, 2022 10:56am Note Date/Time March 18, 2022 3: 31pm [facility] [place] [address] Rad Onc Consult Note - OP Signed Patient: FeglTenisha parker MR#: [id number] : 1975 Acct:[id number] Age/Sex: 46 / F Type: REG RCR [...] 0 out of 5 lymph nodes involved. [id number]. In review of her operative note as [...] notes her BRCA testing was done through [employer] and was negative. Also appears the right breast mass was palpable in the lower mid quadrant of the breast. [facility]. Due to insurance reasons she received her systemic therapy here at [facility]. PET/CT was denied by insurance. CT scan of the chest abdomen pelvis on July 16, 2021 was negative for metastatic disease. Her clinical stage at presentation was cT2N0. June 11, 2021 patient did undergo an MRI in [place]. I do not have that report available [...] 0 out of 5 lymph nodes negative. [id number]. Pathology was negative for LVSI. Of note [...] no other breast related complaints. [facility] - Medical History Medical History: [...] Allergies Allergy (Verified 03/12/22 08:56) Home Medications qaahepc-ctigpvppihsjs-jauoijpv 250 mg-250 mg-65 mg tablet (Excedrin Migraine) [...] <Electronically signed by Stacie Thomas MD> 03/19/22 1057 [facility] Work Phone: 1([phone]) 806-709108-25-2022 Progress note Author Kallie Chang [facility] March 12, 2022 4:36pm Note Date/Time March 12, 2022 9: 49am [facility] [place] [address] Hem/Onc Follow Up Note - OP Signed Patient: Tenisha Hancock MR#: [id number] : 1975 Acct:[id number] Age/Sex: 46 / F Type: REG RCR [...] right mastopexy on 02/17/2022 [address] Drs. Saunders/Drew ([facility]). Her pathology returned with no evidence [...] Simons and has an appointment scheduled at [facility] to discuss josep flap surgery as well. [...] overall good. BRCA testing was done through [employer] and is negative. She does have left [...] I willdefer to his impression and recommendations. [place]: This is a 46 year old female, recently diagnosed with triple negative right breast cancer; currently undergoing neoadjuvant pembrolizumab, carboplatin AUC 4 and weekly paclitaxel x6 cycles, which commenced: 07/22/2021. This is a 46-year-old female who works at [employer] with triple negative breast cancer, referred for [...] was referred to Dr. Ismael Red for Znjbpp-q-Rfdq which she has had placed. She has seen my colleague Dr. Smith at the [facility] recommended neoadjuvant chemotherapy and immunotherapy. Because of insurance reasons, she will be getting her treatment here at [facility]. She has had echocardiography as well. According the patient an MRI was obtained prior to neoadjuvant therapy while she was at [facility] we are requesting this prior study. [...] was referred to Dr. Ismael Red for Dzungg-n-Weuu which she has had placed. She has seen my colleague Dr. Smith at the [facility] recommended neoadjuvant chemotherapy and immunotherapy. Because of insurance reasons, she will be getting her treatment here at [facility]. She has had echocardiography as well. PET/CT [...] 9 cycles --Original breast MRI obtained from [facility] from May 2021, follow-up breast MRI [...] preoperatively in late December. 2. 02/17/2022 at [facility], Drs. Saunders/Drew: needle localized lumpectomy with [...] Allergies Allergy (Verified 03/12/22 08:56) Home Medications xcocrsq-tmhzdsacjalng-vgzkmyhd 250 mg-250 mg-65 mg tablet (Excedrin Migraine) [...] therapy Copies to: MD Meghana Wilson MD, [facility]~ Weight: 196 lb Performed By: ARNOLD [...] see in consultation by Dr. Smith at [facility] in [place], [place]; however, due to insurance reasons the patient transferredcare to [facility]. In reviewing notes from her prior physician [...] do not have records from this from [facility] in [place]. I am requesting this to evaluate her [...] testing returned negative from prior physicians at [facility]. BRCA testing negative Follow-up September is [...] We will review her prior MRI from [facility] in May 2021 in comparison to [...] MRI was reviewed and [facility] tumor board with Dr. Reza and [...] for coordination of care (as documented) and cnsj-yw-wvgt counseling of patient and/or family. Dictated By: Kallie Chang MD DD/ [id number] Signed By: <Electronically signed by MD Kallie Chang> 03/12/22 [address] [facility] Work Phone: 1(610) 541-359808-02-2022 Hospital Discharge instructions* Discharge Instructions* Nader Alicia [...] permanent changes in scar color to darker, color mixer or discolored. At times you may have [...] drainage Our office numbers are as follows: [place] office: [facility] Work Phone: 1(370) 564-367407-14-2022 Miscellaneous Notes* Telephone Encounter - Nat Ricketts RN - 01/29/2022 5:25 PM EDT Noticed that patient's appointment for 01/[address] Lea was cancelled Called and lmom with my name and number for her to call back if this was cancelled accidentally somehow and we would be happy to put her back on the schedule documented in this encounterGal[facility]07-[facility] Miscellaneous Notes* Telephone Encounter - Nat Ricketts [...] on voicemail to return her call at [phone]. Thank you. * Telephone Encounter - Nat [...] I see a teaching note 06/23/21 at [facility] but limited documentation since then as [...] on Wednesday. * Telephone Encounter - Alvin lAexis - 01/16/2022 1:23 PM EDT Pt calling regarding faxed info she had sent to [employer]. Pt asking if fax was received by office or if she needs to do anything else. Pt requesting call back to discuss. * Telephone Encounter - Lucinda Alvarez Ma - 01/16/2022 9:13 AM EDT I called pt to discuss where all outside workup has been, she has had studies at both [facility] and [facility]. I was able to have patient get [...] slides and reports SHANNAN documented in this encounterGalion Community Hospital06-30-2022 NoteHNO ID: [id number] Author: Yasemin Bernal Service: ? Author Type: ? Type: Progress Notes Filed: 01/15/2022 4:35 PM Note Text: DATE OF PHOTOS: 01/15/2022 Body Part: Breasts and Abdomen Yasemin Bernal January 15, 2022 4:35 [facility]06-29-2022 NoteHNO ID: [id number] Author: Fahad Russell MD Service: ? Author Type: Physician Type: Progress Notes Filed: 01/27/2022 4:45 PM Note Text: BREAST RECONSTRUCTION EVALUATION CC: Tenisha Hancock is a 46 year old female that presents today for breast reconstruction evaluation. 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 Dr. Reza in [place] is her breast surgeon. 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 Back Exam: no scar; latissimus dorsi muscle function appears to be intact Abdominal Exam: soft, non-tender, obese and protuberant, BS+, non-distended, lap samreen Breast Exam: Asymmetry: Minimal Axillary Lymphadenopathy: no Scars: None Ptosis: R: Grade III L: Grade III Medially displaced nipple: None Assessment: Patient is a candidate for tissue news production assistant Photos taken today Plan: An extensive discussion was undertaken with the patient detailing the risks, benefits and alternatives to tissue news production assistant. Tenisha Hancock was given supplemental information on [...] Past Histories independently gathered by the clinical customer support executive and the remaining scribed note accurately describes my personal service to the patient. patient's condition reviewed and examined ? plan and options of management, complexity, risk benefit limitation potential complication, success /failure of management, expected result and recovery discussed ? I spent 30 minutes in the visit, with more than 50% of the total nhxv-qb-sppy time of the visit in counseling / coordination of care. ? Fahad Russell [facility]06-29-2022 History of Present illness Narrative* Fahad Russell MD - 01/14/2022 4:48 PM EDT BREAST RECONSTRUCTION EVALUATION CC: Tenisha Hancock is a 46 year old female that presents today for breast reconstruction evaluation. 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 in [place] is her breast surgeon. She saw a plastic surgeon in [place] but he was not amicrosurgeon and she [...] STATUS: Single EMPLOYMENT: Patient is employed at [employer] staff EXAM: There is no height or weight on file to calculate BMI. Back Exam: no scar; latissimus dorsi muscle function appears to be intact Abdominal Exam: soft, non-tender, obese and protuberant, BS+, non-distended, lap samreen Breast Exam: Asymmetry: Minimal Axillary Lymphadenopathy: no Scars: None Ptosis: R: Grade III L: Grade III Medially displaced nipple: None Assessment: Patient is a candidate for tissue news production assistant Photos taken today Plan: An extensive discussion was undertaken with the patient detailing the risks, benefits and alternatives to tissue news production assistant. Tenisha Hancock was given supplemental information on [...] Past Histories independently gathered by the clinical customer support executive and the remaining scribed note accurately describes my personal service to the patient. patient's condition reviewed and examined plan and options of management, complexity, risk benefit limitation potential complication, success/failure of management, expected result and recovery discussed I spent 30 minutes in the visit, with more than 50% of the total vsef-uq-uzym time of the visit in counseling / coordination of care. Fahad Russell MD documented in this encounterGalion Community Hospital06-08-2022 Progress note Author Heber Arriaga [facility] December 24, 2021 8:46pm Note Date/Time December 24, 2021 3:07p [place] [address] Hem/Onc Follow Up Note - OP Signed Patient: Tenisha Hancock MR#: [id number] : 1975 Acct:[id number] Age/Sex: 46 / F Type: REG RCR Copies to: MD Uriel Wilson DO Kim E Knight, MD~ Subjective Date/Time of Service: Date of Service: 12/24/2021 Time of Service: 15:07 Chief Complaint: Patient is here for a [address] [facility] labs for review. Has multiple questions today. [...] Simons and has an appointment scheduled at [facility] to discuss josep flap surgery as well. [...] overall good. BRCA testing was done through [employer] and is negative. She does have left [...] I willdefer to his impression and recommendations. [place]: This is a 46 year old female, recently diagnosed with triple negative right breast cancer; currently undergoing neoadjuvant pembrolizumab, carboplatin AUC 4and weekly paclitaxel x6 cycles, which commenced: 07/22/2021. This is a 46-year-old female who works at [employer] with triple negative breast cancer, referred for [...] was referred to Dr. Ismael Red for Mqqlgl-d-Vzqt which she has had placed. She has seen my colleague Dr. Smith at the [facility] recommended neoadjuvant chemotherapy and immunotherapy. Because of insurance reasons, she will be getting her treatment here at [facility]. She has had echocardiography as well. According the patient an MRI was obtained prior to neoadjuvant therapy while she was at [facility] we are requesting this prior study. [...] was referred to Dr. Ismael Red for Akmubq-p-Jndu which she has had placed. She has seen my colleague Dr. Smith at the [facility] recommended neoadjuvant chemotherapy and immunotherapy. Because of insurance reasons, she will be getting her treatment here at [facility]. She has had echocardiography as well. PET/CT [...] 9 cycles --Original breast MRI obtained from [facility] from May 2021, follow-up breast MRI [...] Allergies Allergy (Verified 12/03/21 13:51) Home Medications lrzlbjk-inchsxzeueosw-texcniqp 250 mg-250 mg-65 mg tablet (Excedrin Migraine) [...] see in consultation by Dr. Smith at [facility] in [place], [place]; however, due to insurance reasons the patient transferredcare to [facility]. In reviewing notes from her prior physician [...] do not have records from this from [facility] in [place]. I am requesting this to evaluate her [...] testing returned negative from prior physicians at [facility] clinic. BRCA testing negative Follow-up September is [...] We will review her prior MRI from [facility] in May 2021 in comparison to [...] MRI was reviewed and [facility] tumor board with Dr. Reza and [...] for coordination of care (as documented) and cetm-xl-obpq counseling of patient and/or family. Dictated By: Heber Arriaga APRN DD/ 1507 Signed By: <Electronically signed by PETE Arriaga> 12/24/212045 [facility] Work Phone: [phone]) 570-351205-18-2022 Progress note Author Kallie Chang [facility] December 03, 2021 2:19pm Note Date/Time December 03, 2021 2:02p m [facility] [place] [address] Hem/Onc Follow Up Note - OP Signed Patient: Tenisha Hancock MR#: [id number] : 1975 Acct:[id number] Age/Sex: 46 / F Type: REG RCR [...] overall good. BRCA testing was done through [employer] and is negative. She does have left [...] I willdefer to his impression and recommendations. [place]: This is a 46 year old female, recently diagnosed with triple negative right breast cancer; currently undergoing neoadjuvant pembrolizumab, carboplatin AUC 4and weekly paclitaxel x6 cycles, which commenced: 07/22/2021. This is a 46-year-old female who works at [employer] with triple negative breast cancer, referred for [...] was referred to Dr. Ismael Red for Ptrshw-q-Uile which she has had placed. [facility]. Because of insurance reasons, she will be getting her treatment here at [facility]. She has had echocardiography as well. According the patient an MRI was obtained prior to neoadjuvant therapy while she was at [facility] we are requesting this prior study. [...] was referred to Dr. Ismael Red for Snkixi-f-Yxcy which she has had placed. [facility]. Because of insurance reasons, she will be getting her treatment here at [facility]. She has had echocardiography as well. PET/CT [...] 9 cycles --Original breast MRI obtained from [facility] from May 2021, follow-up breast MRI [...] Allergies Allergy (Verified 12/03/21 13:51) Home Medications sccadne-xdzdvketmgpsc-nxbioafe 250 mg-250 mg-65 mg tablet (Excedrin Migraine) [...] Left breast without masses, left upper chest Izlkic-y-Ijpo in place and nontender. No axillary fullness [...] % (Auto) 80.1, Lymph % (Auto) 16.3, Prentiss % (Auto) 2.6, Eos % (Auto) 0.5, Baso % (Auto) 0.5, Neut # (Auto) 6.9, Lymph # (Auto) 1.4, Prentiss # (Auto) 0.2, Eos # (Auto) 0.0, Baso # (Auto) 0.0, Nucleated RBC % (auto) 0.1, Toxic Granulation Slight, Dohle Bodies Slight, Platelet Estimate Normal, Plt Morphology Comment Normal, RBC Morphology N/A, Macrocytosis Slight, Tear Drop Cells Slight 11/25/21 14:45: PHA Creatinine Clear 105.09, Sodium 137, Potassium 4.2, Mdlwqrvf013, Carbon Dioxide 22.6, BUN 14, Creatinine 0.73, [...] % (Auto) 71.5, Lymph % (Auto) 19.6, Prentiss % (Auto) 7.6, Eos % (Auto) 0.4, Baso % (Auto) 0.9, Neut # (Auto) 6.2, Lymph # (Auto) 1.7, Prentiss # (Auto) 0.7, Eos # (Auto) 0.0, [...] see in consultation by Dr. Smith at [facility] in [place], [place]; however, due to insurance reasons the patient transferredcare to [facility]. In reviewing notes from her prior physician [...] do not have records from this from [facility] in [place]. I am requesting this to evaluate her [...] testing returned negative from prior physicians at [facility]. BRCA testing negative Follow-up September is [...] We will review her prior MRI from [facility] in May 2021 in comparison to [...] MRI was reviewed and [facility] tumor board with Dr. Reza and [...] for coordination of care (as documented) and qjji-mj-yswd counseling of patient and/or family. Dictated By: Kallie Chang MD DD/ 1401 Signed By: <Electronically signed by MD Kallie Chang> 12/03/21 [address] [facility] Work Phone: [phone]) [phone] Progress note Author Kallie Chang [facility] November 13, 2021 3:34pm Note Date/Time November 12, 2021 3:0 7pm [facility] [place] [address] Hem/Onc Follow Up Note - OP Signed Patient: Tenisha Hancock MR#: [id number] : 1975 Acct:[id number] Age/Sex: 46 / F Type: REG RCR [...] with tertiary breast medical oncologist Dr. Vinh Buico to determine whether she should proceed with [...] overall good. BRCA testing was done through [employer] and is negative. She does have left [...] I willdefer to his impression and recommendations. [place]: This is a 46 year old female, recently diagnosed with triple negative right breast cancer; currently undergoing neoadjuvant pembrolizumab, carboplatin AUC 4and weekly paclitaxel x6 cycles, which commenced: 07/22/2021. This is a 46-year-old female who works at [employer] with triple negative breast cancer, referred for [...] was referred to Dr. Ismael Red for Oayotn-p-Gsfw which she has had placed. [facility]. Because of insurance reasons, she will be getting her treatment here at [facility]. She has had echocardiography as well. According the patient an MRI was obtained prior to neoadjuvant therapy while she was at [facility] we are requesting this prior study. [...] was referred to Dr. Ismael Red for Rnmcfw-e-Smta which she has had placed. She [facility]. Because of insurance reasons, she will be getting her treatment here at [facility]. She has had echocardiography as well. PET/CT [...] 9 cycles --Original breast MRI obtained from [facility] from May 2021, follow-up breast MRI [...] History (Last Reviewed 11/13/21 @ 15:24 by Kallei Chang MD) History of breast biopsy right [...] Allergies Allergy (Verified 10/22/21 10:19) Home Medications mnfxgug-gebhsarvpzpsi-tajxnxss 250 mg-250 mg-65 mg tablet (Excedrin Migraine) [...] Left breast without masses, left upper chest Xiprpg-u-Wyar in place and nontender. No axillary fullness [...] Creatinine Clear 145.60, Sodium 136, Potassium 3.6, Nnydhhsp765, Carbon Dioxide 23.3, BUN 7 L, Creatinine [...] see in consultation by Dr. Smith at [facility] in [place], [place]; however, due to insurance reasons the patient transferredcare to [facility]. In reviewing notes from her prior physician [...] do not have records from this from [facility] in [place]. I am requesting this to evaluate her [...] testing returned negative from prior physicians at [facility] clinic. BRCA testing negative Follow-up September is [...] We will review her prior MRI from [facility] in May 2021 in comparison to [...] MRI was reviewed and [facility] tumor board with Dr. Reza and [...] for coordination of care (as documented) and kefc-vg-eorh counseling of patient and/or family. Dictated By: Kallie Chang MD DD/ 1507 Signed By: <Electronically signed by MD Kallie Chang> 11/13/21 [address] [facility] Work Phone: [phone]) [phone] Progress note Author Kallie Chang [facility] October 22, 2021 4:22pm Note Date/Time October 22, 2021 10:2 8am [facility] at [address] [address] Hem/Onc Follow Up Note - OP Signed Patient: Tenisha Hancock MR#: [id number] : 1975 Acct:[id number] Age/Sex: 46 / F Type: REG RCR [...] overall good. BRCA testing was done through [employer] and is negative. She does have left [...] I willdefer to his impression and recommendations. [place]: This is a 46 year old female, recently diagnosed with triple negative right breast cancer; currently undergoing neoadjuvant pembrolizumab, carboplatin AUC 4and weekly paclitaxel x6 cycles, which commenced: 07/22/2021. This is a 46-year-old female who works at [employer] with triple negative breast cancer, referred for [...] was referred to Dr. Ismael Red for Zxzpty-q-Lpnm which she has had placed. She [facility]. Because of insurance reasons, she will be getting her treatment here at [facility]. She has had echocardiography as well. According the patient an MRI was obtained prior to neoadjuvant therapy while she was at [facility] we are requesting this prior study. [...] was referred to Dr. Ismael Red for Rdathi-u-Zvuc which she has had placed. She [facility]. Because of insurance reasons, she will be getting her treatment here at [facility]. She has had echocardiography as well. PET/CT [...] 9 cycles --Original breast MRI obtained from [facility] from May 2021, follow-up breast MRI [...] Negative for environmental allergies and food allergies. [facility] - History Attestation statement: The [...] Allergies Allergy (Verified 10/22/21 10:19) Home Medications ukiphjp-yicssadmfxwhc-fskjsrvz 250 mg-250 mg-65 mg tablet (Excedrin Migraine) [...] lymphadenopathy. Left breast withoutmasses, left upper chest Gijque-h-Nhkb in place and nontender. No axillary fullness [...] H, MCHC 33.7, RDW 16.7 H, Plt Hnsym576 L, MPV 7.1, Nucleated RBC % (auto) [...] Other Results Results/Comments: Date of Service: 10/14/21 [facility] echo transthoracic: monitoring for chemotherapy Interpretation Summary [...] see in consultation by Dr. Smith at [facility] in [place], [place]; however, due to insurance reasons the patient transferredcare [facility]. In reviewing notes from her [...] do not have records from this from [facility] in [place]. I am requesting this to evaluate her [...] testing returned negative from prior physicians at [facility] clinic. BRCA testing negative Follow-up September is [...] We will review her prior MRI from [facility] in May 2021 in comparison to [...] MRI was reviewed and [facility] tumor board with Dr. Reza and [...] complexity visit for discussion and [facility] tumor board, review of MRI and echocardiogram, [...] for coordination of care (as documented) and obuh-ix-rhfr counseling of patient and/or family. Dictated By: Kallie Chang MD DD/ [id number] Signed By: <Electronically signed by MD Kallie Chang> 10/22/21 1622 [facility] Work Phone: 1([phone]) 781-686803-24-2022 Progress note Author Kallie Chang [facility] October 09, 2021 2:48pm Note Date/Time October 08, 2021 11: 37am [facility] [place] [address] Hem/Onc Follow Up Note - OP Signed Patient: Tenisha Hancock MR#: [id number] : 1975 Acct:[id number] Age/Sex: 46 / F Type: REG RCR [...] overall good. BRCA testing was done through [employer] and is negative. She does have left [...] I willdefer to his impression and recommendations. [place]: This is a 46 year old female, recently diagnosed with triple negative right breast cancer; currently undergoing neoadjuvant pembrolizumab, carboplatin AUC 4and weekly paclitaxel x6 cycles, which commenced: 07/22/2021. This is a 46-year-old female who works at [employer] with triple negative breast cancer, referred for [...] was referred to Dr. Ismael Red for Clqjyh-f-Eqfc which she has had placed. [facility]. Because of insurance reasons, she will be getting her treatment here at [facility]. She has had echocardiography as well. According the patient an MRI was obtained prior to neoadjuvant therapy while she was at [facility] we are requesting this prior study. [...] was referred to Dr. Ismael Red for Zezope-y-Aghq which she has had placed. She [facility] chemotherapy and immunotherapy. Because of insurance reasons, she will be getting her treatment here at [facility]. She has had echocardiography as well. PET/CT [...] 9 cycles --Original breast MRI obtained from [facility] from May 2021, follow-up breast MRI [...] PO Q6H PRN 07/03/21 [History Confirmed 10/08/21] zqwmunk-ynceimgmiwrep-vdzmegdd 250 mg-250 mg-65 mg tablet (Excedrin Migraine) [...] Left breast without masses, left upper chest Fyayms-d-Tkix in place and nontender. No axillary fullness [...] Creatinine Clear 110.24, Sodium 136, Potassium 3.7, Tufmnzij140, Carbon Dioxide 22.8, BUN 7 L, Creatinine [...] % (Auto) 65.5, Lymph % (Auto) 30.1, Prentiss % (Auto) 3.7, Eos % (Auto) 0.4, Baso % (Auto) 0.3, Neut # (Auto) 4.0, Lymph # (Auto) 1.8, Prentiss # (Auto) 0.2, Eos # (Auto) 0.0, [...] see in consultation by Dr. Smith at [facility] in [place], [place]; however, due to insurance reasons the patient transferred[facility]. In reviewing notes from her prior physician [...] do not have records from this from [facility] in [place]. I am requesting this to evaluate her [...] testing returned negative from prior physicians at [facility]. BRCA testing negative Follow-up September is [...] We will review her prior MRI from [facility] in May 2021 in comparison to [...] for coordination of care (as documented) and emkb-az-bgnh counseling of patient and/or family. Dictated By: Kallie Chang MD DD/ 1136 Signed By: <Electronically signed by MD Kallie Chang> 10/09/21 8847 [facility] Work Phone: 1(319) 236-551203-09-2022 Progress note Author Kallie Chang [facility] September 24, 2021 11:25am Note Date/Time September 24, 2021 8:11 am [facility] [place] [address] Hem/Onc Follow Up Note - OP Signed Patient: Tenisha Hancock MR#: [id number] : 1975 Acct:[id number] Age/Sex: 46 / F Type: REG RCR [...] overall good. BRCA testing was done through [employer] and is negative. She does have left [...] I willdefer to his impression and recommendations. [place]: This is a 46 year old female, recently diagnosed with triple negative right breast cancer; currently undergoing neoadjuvant pembrolizumab, carboplatin AUC 4and weekly paclitaxel x6 cycles, which commenced: 07/22/2021. This is a 46-year-old female who works at [employer] with triple negative breast cancer, referred for [...] was referred to Dr. Ismael Red for Qrrwzp-s-Lnvp which she has had placed. [facility]. Because of insurance reasons, she will be getting her treatment here at [facility]. She has had echocardiography as well. According the patient an MRI was obtained prior to neoadjuvant therapy while she was at [facility] we are requesting this prior study. [...] was referred to Dr. Ismael Red for Ppkosx-a-Wjng which she has had placed. She has seen my colleague Dr. Smith at the [facility] recommended neoadjuvant chemotherapy and immunotherapy. Because of insurance reasons, she will be getting her treatment here at [facility]. She has had echocardiography as well. PET/CT [...] Negative for environmental allergies and food allergies. [facility] - History Attestation statement: The [...] PO Q6H PRN 07/03/21 [History Confirmed 09/24/21] jkmhtll-ojudjssqxtisq-zulrpsgf 250 mg-250 mg-65 mg tablet (Excedrin Migraine) [...] Left breast without masses, left upper chest Bwqiuw-w-Yzks in place and nontender. No axillary fullness [...] Impressions We will request outside MRI from [facility] from baseline. - Other Results Results/Comments: Prior notes from [facility] CT scan showed echocardiogram 06/19/2021 with [...] see in consultation by Dr. Smith at [facility] in [place], [place]; however, due to insurance reasons the patient transferredcare to [facility]. In reviewing notes from her prior physician [...] do not have records from this from [facility] in [place]. I am requesting this to evaluate her [...] testing returned negative from prior physicians at [facility]. BRCA testing negative Today in follow-up [...] for coordination of care (as documented) and pfou-za-oocb counseling of patient and/or family. Dictated By: Kallie Chang MD DD/ 9 Signed By: <Electronically signed by MD Kallie Chang> 09/24/21 1125 [facility] Work Phone: 1(335) 825-285002-28-2022 Evaluation note* Encounter Date Diagnosis Assessment Notes [...] investigation. Aug, Cervical spondylosis (ICD-10 - M47.812) [facility] Other 02-02-2022 Progress note Author Salbador Phoenix [facility] August 20, 2021 2:47pm Note Date/Time August 20, 2021 2 :45pm [facility] [place] [id number] Hem/Onc Follow Up Note - OP Signed Patient: Tenisha Hancock MR#: [id number] : 1975 Acct:[id number] Age/Sex: 46 / F Type: REG RCR [...] overall good. BRCA testing was done through [employer] and is negative. She does have left [...] I willdefer to his impression and recommendations. [place]: This is a 46 year old female, [...] was referred to Dr. Ismael Red for Oypkmc-h-Iqhg which she has had placed. [facility]. Because of insurance reasons, she will be getting her treatment here at [facility]. She has had echocardiography as well. PET/CT [...] review of systems is negative. [facility] - Medical History Medical History: [...] PO Q6H PRN 07/03/21 [History Confirmed 08/20/21] vwrsyhu-suthmrcvepigo-zgdnfzlw 250 mg-250 mg-65 mg tablet (Excedrin Migraine) [...] % (Auto) 58.0, Lymph % (Auto) 36.6, Prentiss % (Auto) 3.9, Eos % (Auto) 1.0, Baso % (Auto) 0.5, Neut # (Auto) 3.2, Lymph # (Auto) 2.0, Prentiss # (Auto) 0.2, Eos # (Auto) 0.1, [...] see in consultation by Dr. Smith at [facility] in [place], [place]; however, due to insurance reasons the patient transferredcare [facility]. She commenced neoadjuvant Carboplatin/Paclitaxel/Pembrolizumab therapy [...] for coordination of care (as documented) and gdcu-yt-gqlj counseling of patient and/or family. Dictated By: Salbador Phoenix MD DD/ 40 Signed By: <Electronically signed by MD Salbador Phoenix> 08/20/211446 [facility] Work Phone: 1([phone]) 960-504401-13-2022 Progress note Author Jazmin Reddyowatonna clinicevita [facility] July 31, 2021 3:54pm Note Date/Time July 31, 2021 3 :07pm [facility] [place] [address] Hem/Onc Follow Up Note - OP Signed Patient: Tenisha Hancock MR#: [id number] : 1975 Acct:[id number] Age/Sex: 46 / F Type: REG RCR [...] was referred to Dr. Ismael Red for Bsvcgw-m-Aedw which she has had placed. [facility]. Because of insurance reasons, she will be getting her treatment here at [facility]. She has had echocardiography as well. PET/CT [...] PO Q6H PRN 07/03/21 [History Confirmed 07/31/21] xufftzq-gtzvgalzosdsz-wnlbbxgq 250 mg-250 mg-65 mg tablet (Excedrin Migraine) [...] 07/16/21 12:50 Outside Labs: Outside labs from [facility] scanned in chart; no significant cytopenias or abnormalities (WBC- 8.0; Hgb 12.0; normal platelets; Normal electrolytes; renal/hepatic fxn) Assessment and Plan (1) Breast cancer Patient is a 46-year-old female presenting with 3 discernible masses by mammography (04/22/2021) with needle biopsy confirming triple negative breast cancer. She was initially see in consultation by Dr. Smith at [facility] in [place], [place]; however, due to insurance reasons the patient transferredcare to [facility]. She commenced neoadjuvant Carboplatin/Paclitaxel/Pembrolizumab therapy on 07/22/2021; [...] scans ofthe chest/abdomen/pelvis on 07/16/2021 here at [facility]. There was no obvious evidence of distant [...] [facility] She has ongoing issues with low back [...] for coordination of care (as documented) and pwsh-os-bixn counseling of patient and/or family. Dictated By: Jazmin Monsivais APRN DD/ 1454 Signed By: <Electronically signed by PETE Monsivais> 07/31/21 1554 [facility] Work Phone: 1([phone]) 715-693901-13-2022 Hospital Discharge instructionsAmbulatory Orders* Imaging on Disk Time Frame: 1 Day, Location: Determined By Patient * RISE Order Time Frame: 07/31/21, Location: Determined By Patient [facility] Work Phone: 1(204) 268-309912-28-2021 Progress note Author Salbador Phoenix [facility] July 15, 2021 1:32pm Note Date/Time July 15, 2021 1:28pm [facility] [place] [address] Hem/Onc Follow Up Note - OP Signed Patient: Tenisha Hancock MR#: [id number] : 1975 Acct:[id number] Age/Sex: 46 / F Type: REG RCR [...] is a 46-year-old female who works at [employer] who was referred here with triple negative [...] was referred to Dr. Ismael Red for Bkznzx-p-Jnym which she has had placed. She has seen my colleague Dr. Smith at the [facility] who recommended neoadjuvant chemotherapy and immunotherapy. Because of insurance reasons, she will be getting her treatment here at [facility]. She has had echocardiography as well. She [...] PO Q6H PRN 07/03/21 [History Confirmed 07/15/21] fuqokep-kwspsyxufuouo-reiujxtx 250 mg-250 mg-65 mg tablet (Excedrin Migraine) [...] % (Auto) 68.7, Lymph % (Auto) 25.5, Prentiss % (Auto) 3.9, Eos % (Auto) 1.0, Baso % (Auto) 0.9, Neut # (Auto) 6.9, Lymph # (Auto) 2.6, Prentiss # (Auto) 0.4, Eos# (Auto) 0.1, Baso [...] July 29, 2021. The patient has her Zmebgd-c-Mmht and and has had echocardiography. We will [...] for coordination of care (as documented) and mzxr-iy-knrq counseling of patient and/or family. Dictated By: Salbador Phoenix MD DD/ 1327 Signed By: <Electronically signed by MD Salbador Phoenix> 07/15/21 1332 [facility] Work Phone: 1([phone]) 157-373812-21-2021 Consult note Author Salbador Phoenix [facility] July 08, 2021 3:14pm Note Date/Time July 08, 2021 2:58pm [facility] [place] [address] Hem/Onc Consult Note - OP Signed Patient: Tenisha Hancock MR#: [id number] : 1975 Acct:[id number] Age/Sex: 46 / F Type: REG RCR [...] is a 46-year-old female who works at [employer] who is referred here with triple negative [...] was referred to Dr. Ismael Red for Pvcvgy-s-Tzsy which she has had placed. She has seen my colleague Dr. Smith at the [facility] who recommended neoadjuvant chemotherapy and immunotherapy. Because of insurance reasons, she will be getting her treatment here at [facility]. She has had echocardiography as well. She does have a palpable breast mass. It is in the lower mid quadrant of the right breast. [facility] - Medical History Medical History: [...] PO Q6H PRN 07/03/21 [History Confirmed 07/08/21] onsujey-bwroxtcnolgkd-eknvruie 250 mg-250 mg-65 mg tablet (Excedrin Migraine) [...] cancer. She has seen medical oncology at [facility] who has recommended neoadjuvant chemotherapy and [...] at this time. The patient has her Avdbno-r-Jytl and and has had echocardiography. We will refer her for chemotherapy education and literature. She was requesting PET scan which is reasonable. I will also recommend genetic testing which can be done through [employer]. Our treatment plan will be pembrolizumab every [...] for coordination of care (as documented) and gehn-tx-ibqj counseling of patient and/or family. Dictated By: Salbador Phoenix MD DD/ 1457 Signed By: <Electronically signed by MD Salbador Phoenix> 07/08/21 9290 [facility] Work Phone: Consult note Author Stacie Thomas [facility] March 19, 2022 10:56am Note Date/Time March 18, 2022 3: [address] [place] [address] [place] [address] Rad Onc Consult Note - OP Signed Patient: Tenisha Hancock MR#: [id number] : 1975 Acct:[id number] Age/Sex: 46 / F Type: REG RCR [...] 0 out of 5 lymph nodes involved. [id number]. In review of her operative note as [...] notes her BRCA testing was done through [employer] and was negative. Also appears the right breast mass was palpable in the lower mid quadrant of the breast. [facility]. Due to insurance reasons she received her systemic therapy here at [facility]. PET/CT was denied by insurance. CT scan of the chest abdomen pelvis on July 16, 2021 was negative for metastatic disease. Her clinical stage at presentation was cT2N0. June 11, 2021 patient did undergo an MRI in [place]. I do not have that report available [...] 0 out of 5 lymph nodes negative. [id number]. Pathology was negative for LVSI. Of note [...] no other breast related complaints. [facility] - Medical History Medical History: [...] Allergies Allergy (Verified 03/12/22 08:56) Home Medications euxmult-syrhsxuqbfkgi-uigraemn 250 mg-250 mg-65 mg tablet (Excedrin Migraine) [...] signed by Stacie Thomas MD> 03/19/22 1056 [facility] Work Phone: Evaluation + Plan note No data available for this section General Surgery [place] Evaluation note* Diagnosis History of breast cancer- Primary Personal history of malignant neoplasm of breast Breast asymmetry following reconstructive surgery Disproportion of reconstructed breast Malignant neoplasm of right female breast, unspecified estrogen receptor status, unspecified site of breast (HCC)- [facility] Malignant neoplasm of right female breast, unspecified estrogen receptor status, unspecified site of breast (HCC) documented in this encounter [facility] Work Phone: evaluation note* Diagnosis Status post breast reconstruction- Primary Breast replaced by other means Status post breast lumpectomy Other postprocedural status Abnormal mammogram Abnormal mammogram, unspecified Malignant neoplasm of right female breast, unspecified estrogen receptor status, unspecified site of breast (HCC) documented in this encounter [employer] Work Phone: evalfdquoa note* Diagnosis Malignant neoplasm of right female breast, unspecified estrogen receptor status, unspecified site of breast (HCC) documented in this encounter [employer] Phone: evaluation note* Diagnosis Onset Date Resolution Status Breast cancer chronic Encounter for antineoplastic immunotherapy chronic Encounter for chemotherapy management chronic 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 Chemotherapy-induced neutropenia resolved [facility] [employer] Work Phone: Evaluation note* Diagnosis Onset Date Resolution Status 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 acute Arthralgia of multiple sites, bilateral acute Encounter for coordination of complex care acute Breast cancer chronic Encounter for antineoplastic immunotherapy chronic Encounter for chemotherapy management chronic 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 Chemotherapy-induced neutropenia resolved [facility] [employer] Work Phone: Evaluation note* Diagnosis Onset Date Resolution Status 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 chronic Arthralgia of multiple sites, bilateral chronic Breast cancer chronic Encounter for antineoplastic immunotherapy chronic Encounter for chemotherapy management chronic Encounter for coordination of complex care chronic 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 Chemotherapy-induced neutropenia resolved [facility] [employer] Work Phone: Evaluation note* Diagnosis Onset Date Resolution Status 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 chronic Breast cancer chronic Encounter for antineoplastic immunotherapy chronic Encounter for chemotherapy management chronic Encounter for coordination of complex care chronic 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 Arthralgia of multiple sites, bilateral resolved Chemotherapy-induced neutropenia resolved [facility] [employer] Work Phone: Evaluation note* Diagnosis Onset Date Resolution Status Hypothyroidism (acquired) ac jania 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 chronic Breast cancer chronic Encounter for antineoplastic immunotherapy chronic Encounter for chemotherapy management chronic Encounter for coordination of complex care chronic 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 Arthralgia of multiple sites, bilateral resolved Chemotherapy-induced neutropenia resolved [facility] Work Phone: Evaluation noteNo assessment information available [facility] Work Phone: Evaluation note* Diagnosis Left wrist pain- Primary Pain in joint, forearm Pain of left thumb documented in this encounter [facility]* Diagnosis Moderate episode of [...] in joint, forearm documented in this encounter [facility]* Diagnosis Moderate episode of [...] of right toe documented in this encounter [facility]* Diagnosis Moderate episode of [...] Surgical History Foot Surgery Hospitalization History gallbladder [facility] Work Phone: Hospital Discharge instructionsAmbulatory Orders* [facility] Order Time Frame: 1 Day, Location: Determined By Patient [facility] Work Phone: Hospital Discharge instructions No data available for this section General Surgery [place] Progress note Author Kallie Chang [facility] March 12, 2022 4:36pm Note Date/Time March 12, 2022 9: 49am [facility] at [address] [address] Hem/Onc Follow Up Note - OP Signed Patient: Tenisha Hancock MR#: [id number] : 1975 Acct:[id number] Age/Sex: 46 / F Type: REG RCR [...] right mastopexy on 02/17/2022 by Drs. Saunders/Drew ([facility]). Her pathology returned with no evidence [...] Simons and has an appointment scheduled at [facility] to discuss josep flap surgery as well. [...] overall good. BRCA testing was done through [employer] and is negative. She does have left [...] I willdefer to his impression and recommendations. [place]: This is a 46 year old female, recently diagnosed with triple negative right breast cancer; currently undergoing neoadjuvant pembrolizumab, carboplatin AUC 4 and weekly paclitaxel x6 cycles, which commenced: 07/22/2021. This is a 46-year-old female who works at [employer] with triple negative breast cancer, referred for [...] was referred to Dr. Ismael Red for Oepron-r-Sueo which she has had placed. [facility]. Because of insurance reasons, she will be getting her treatment here at [facility]. She has had echocardiography as well. According the patient an MRI was obtained prior to neoadjuvant therapy while she was at [facility] we are requesting this prior study. [...] was referred to Dr. Ismael Red for Mreifn-g-Aogv which she has had placed. She [facility]. Because of insurance reasons, she will be getting her treatment here at [facility]. She has had echocardiography as well. PET/CT [...] 9 cycles --Original breast MRI obtained from [facility] from May 2021, follow-up breast MRI [...] preoperatively in late December. 2. 02/17/2022 at [facility], Drs. Saunders/Drew: needle localized lumpectomy with [...] Negative for environmental allergies and food allergies. [facility] - History Attestation statement: The [...] Allergies Allergy (Verified 03/12/22 08:56) Home Medications qjbaoba-badlqhavjjohq-eftzsimq 250 mg-250 mg-65 mg tablet (Excedrin Migraine) [...] see in consultation by Dr. Smith at [facility] in [place], [place]; however, due to insurance reasons the patient [facility]. In reviewing notes from her prior physician [...] do not have records from this from [facility] in [place]. I am requesting this to evaluate her [...] testing returned negative from prior physicians at [facility]. BRCA testing negative Follow-up September is [...] We will review her prior MRI from [facility] in May 2021 in comparison to [...] MRI was reviewed and [facility] tumor board with Dr. Reza and [...] for coordination of care (as documented) and qwdb-jy-uvaw counseling of patient and/or family. Dictated By: Kallie Chang MD DD/ 0948 Signed By: <Electronically signed by MD Kallie Chang> 03/12/22 0991 [facility] Work Phone: Progress note Author Kallie Chang [facility] September 18, 2022 10:28pm Note Date/Time September 18, 2022 1:44 pm [facility] at [address] [address] Hem/Onc Follow Up Note - OP Signed Patient: Tenisha Hancock MR#: [id number] : 1975 Acct:[id number] Age/Sex: 47 / F Type: REG RCR [...] hydrocortisone 20mg am/10mg pm. Will f/u with [employer] next week to review symptoms. We may [...] right mastopexy on 02/17/[address] Saunders/Drew ([facility]). Her pathology returned with no evidence [...] Simons and has an appointment scheduled at [facility] to discuss josep flap surgery as well. [...] overall good. BRCA testing was done through [employer] and is negative. She does have left [...] I willdefer to his impression and recommendations. 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 This is a 46-year-old female who works at [employer] with triple negative breast cancer, referred for [...] was referred to Dr. Ismael Red for Qrbdjf-g-Pbkl which she has had placed. [facility]. Because of insurance reasons, she will be getting her treatment here at [facility]. She has had echocardiography as well. According the patient an MRI was obtained prior to neoadjuvant therapy while she was at [facility] we are requesting this prior study. [...] was referred to Dr. Ismael Red for Swkwmy-c-Idtn which she has had placed. She has seen my colleague Dr. Smith at the [facility] recommended neoadjuvant chemotherapy and immunotherapy. Because of insurance reasons, she will be getting her treatment here at [facility]. She has had echocardiography as well. PET/CT [...] 9 cycles --Original breast MRI obtained from [facility] from May 2021, follow-up breast MRI [...] preoperatively in late December. 2. 02/17/2022 at [facility], Drs. Saunders/Shantal: needle localized lumpectomy with [...] Allergies Allergy (Verified 09/18/22 13:38) Home Medications tshyqkl-ehcjeqxhjbohx-rdfglzxa 250 mg-250 mg-65 mg tablet (Excedrin Migraine) [...] % (Auto) 91.1, Lymph % (Auto) 6.2, Prentiss % (Auto) 2.3, Eos % (Auto) 0.1, Baso % (Auto) 0.3, Nucleat RBC Rel Count 0.1, Neut # (Auto) 10.4 H, Lymph # (Auto) 0.7 L, Prentiss # (Auto) 0.3, Eos # (Auto) 0.0, [...] see in consultation by Dr. Smith at [facility] in [place], [place]; however, due to insurance reasons the patient transferred[facility]. In reviewing notes from her prior physician [...] do not have records from this from [facility] in [place]. I am requesting this to evaluate her [...] testing returned negative from prior physicians at [facility]. BRCA testing negative Follow-up September is [...] We will review her prior MRI from [facility] in May 2021 in comparison to [...] MRI was reviewed and [facility] tumor board with Dr. Reza and [...] with sentinel lymph node biopsy 02/17/2022 in [place]. Adjuvant radiation completed 05/04-06/16/2022. Total of 30 [...] for coordination of care (as documented) and mufc-xf-bhct counseling of patient and/or family. Dictated By: Kallie Chang MD DD/ [id number] Signed By: <Electronically signed by MD Kallie Chang> 09/18/22 2228 [facility] Work Phone: Progress note No data available for this section General Surgery Kenna Reason for visit NarrativeReferral Dr. Phoenix T12 [facility] Other Summary Purpose Family History Relationship Condition [...] WO CONTRAST Diana Murguia P, DO [address] [place] [address] Referral ID Status Reason Start Date Expiration Date Visits Re quested Visits Authorized [id number] Closed 02/03/2022 01/28/2023 1 1 Chief Complaint [...] or prosecute any alcohol or drug abuse patient.[facility] the event this information is protected by the Federal Confidentiality of Alcohol and Drug Abuse Patient Records regulations: The Federal rules restrict any use of the information to criminally investigate or prosecute any alcohol or drug abuse patient.[facility] Hospital[facility] the event this information is protected by the Federal Confidentiality of Alcohol and Drug Abuse Patient Records regulations: The Federal rules restrict any use of the information to criminally investigate or prosecute any alcohol or drug abuse patient.[facility] the event this information is protected by the Federal Confidentiality of Alcohol and Drug Abuse Patient Records regulations: The Federal rules restrict any use of the information to criminally investigate or prosecute any alcohol or drug abuse patient.[facility] Reason for Visit (unrecogniz ed section and content) Reason Comments Appointment Reason Comments Consult Specialty Diagnoses / Procedures Referred By Ramirez flores Referred To Contact Radiology Diagnoses Malignant neoplasm of right female breast, unspecified estrogen receptor status, unspecified site of breast (HCC) Procedures MRI BREAST BILATERAL W WO CONTRAST Diana Murguia DO [address] [address] Referral ID Status Reason Start Date Expiration Date Visits Re quested Visits Authorized [id number] Closed 02/03/2022 01/28/2023 1 1 Specialty Diagnoses [...] VAC AND PEC BLOCK Diana Murguia DO [address] [facility] [address] [place] [address] [facility] [id number] [place] [address] Referral ID Status Reason Start Date Expiration Date Visits Re quested Visits Authorized 1 1 Specialty Diagnoses / Procedures Referred By Ramirez flores Referred To Contact Diagnoses Malignant neoplasm of unspecified site of right female breast Procedures HC NM LYMPHATICS,LYMPH GLAND IMAGING [facility] Nuclear Medicine [address] [place] [address] [facility] [address] [place] [address] Referral ID Status Reason Start Date Expiration Date Visits Re quested Visits Authorized [id number] 1 1 Reason Comments Pain Reason Comments [...] Active Kallie Chang MD Attending Provider Active Carbonizer Tester Relationship Specialty Start Date End Date Jasbir Limon MD [address] [place] [phone] (Fax) PCP - General 10/28/00 Carbonizer Tester Relationship Specialty Start Date End Date Jasbir Limon MD [address] [place] [address] (Fax) PCP - General 10/28/00 Carbonizer Tester Relationship Specialty Start Date End Date Jasbir Limon MD [address] [facility] [address] (Fax) PCP - General 10/28/00 Carbonizer Tester Relationship Specialty Start Date End Date Eliel Hurd [id number] PCP - General Specialist 02/04/22 Carbonizer Tester Relationship Specialty Start Date End Date Eliel Hurd [address] [place] [address] PCP - General Specialist 02/04/22 Carbonizer Tester Relationship Specialty Start Date End Date Eliel Hurd [address] [place] [address] PCP - General Specialist 02/04/22 Team Status: [...] Active Adam Vickers DO Attending Provider Active Carbonizer Tester Relationship Specialty Start Date End Date Shaikh España MD PCP - General Internal Medicine 11/24/22 Team Status: Active Member Role Status Dates Shaikh Patria MD Primary Care Provider Active Team Status: Inactive Member Role Status Dates Chidi Rincon Attending Provider Active Start: 2023 End: January 10, 2024 Shaikh Patria MD Primary Care Provider Active Start: January 10, 2024 End: January 10, 2024 Carbonizer Tester Relationship Specialty Start Date End Date Shaikh España MD [facility] [place] [address] PCP - General Internal Medicine 10/07/23 Carbonizer Tester Relationship Specialty Start Date End Date Shaikh España MD [address] [place] [phone] PCP - General Internal Medicine 10/07/23 Carbonizer Tester Relationship Specialty Start Date End Date Shaikh España MD [address] [place] [phone] PCP - General Internal Medicine 10/07/23 Carbonizer Tester Relationship Specialty Start Date End Date Chinmay Muñoz MD [address] [place] [phone] PCP - General Family Medicine 06/01/24 Demetra Sparrow NP [address] [place] [address] Nurse Practitioner Family Medicine 06/01/24 Carbonizer Tester Relationship Specialty Start Date End Date Chinmay Muñoz MD [address] [place] [phone] PCP - General Family Medicine 06/01/24 Demetra Sparrow NP [address] [place] [address] Nurse Practitioner Family Medicine 06/01/24 Carbonizer Tester Relationship Specialty Start Date End Date Chinmay Muñoz MD [address] [place] [phone] PCP - General Family Medicine 06/01/24 Demetra Sparrow NP [address] [place] [phone] Nurse Practitioner Family Medicine 06/01/24 Carbonizer Tester Relationship Specialty Start Date End Date Chinmay Muñoz MD [address] [place] [address] PCP - General Family Medicine 06/01/24 Demetra Sparrow NP [address] [place] [address] Nurse Practitioner Family Medicine 06/01/24 Carbonizer Tester Relationship Specialty Start Date End Date Shaikh España MD [address] [place] [phone] PCP - General Internal Medicine 10/07/23 Carbonizer Tester Relationship Specialty Start Date End Date Shaikh España MD [address] [place] [phone] PCP - General Internal Medicine 10/07/23 Carbonizer Tester Relationship Specialty Start Date End Date Shaikh España MD [address] [place] [phone] PCP - General Internal Medicine 10/07/23 Carbonizer Tester Relationship Specialty Start Date End Date Chinmay Muñoz MD [address] [place] [phone] PCP - General Family Medicine 06/01/24 Demetra Sparrow NP [address] [place] [address] Nurse Practitioner Family Medicine 06/01/24 INFORMATION SOURCE (unrecogn ized section and content) DATE CREATED AUTHOR 02/03/2022 [facility] DATE CREATED AUTHOR AUTHOR'S ORGANIZ ATION 02/21/2022 [facility] DATE CREATED AUTHOR AUTHOR'S ORGANIZ ATION 03/24/[address] [facility] DATE CREATED AUTHOR AUTHOR'S ORGANIZ ATION 12/02/2022 [facility] DATE CREATED AUTHOR AUTHOR'S ORGANIZ ATION 03/09/2023 [facility] DATE CREATED AUTHOR AUTHOR'S ORGANIZ ATION 12/24/2023 [facility] DATE CREATED AUTHOR AUTHOR'S ORGANIZ ATION 03/11/2024 [facility] DATE CREATED AUTHOR AUTHOR'S ORGANIZ ATION 03/18/2024 [facility] DATE CREATED AUTHOR AUTHOR'S ORGANIZ ATION 06/29/2024 [facility] DATE CREATED AUTHOR AUTHOR'S ORGANIZ ATION 07/10/2024 [facility] Ordered Prescriptions (unrec ognized section [...] 1047 (Given - Provid er: Valerie Davila, FISH CULTURIST - INTERNET MARKETING COORDINATOR) diphenhydrAMINE (BENADRYL) injection 12.5 mg (COMPLETED) 12.5 [...] BE BASED ON THE PRIMARY CLINICAL RECORDS. [employer] provides no warranty or guarantee of the accuracy or completeness of information in this document.
== END 2024-10-16 23:59 | disposition home or self-care (01) ==
LOC: HEMC 07:33
PROVIDERS: Visit Provider Internal Medicine Hematology & Oncology
DX: C50.911 Malignant neoplasm of unspecified site of right female breast (principal); M25.50 Pain in unspecified joint; M13.0 Polyarthritis, unspecified; Z17.1 Estrogen receptor negative status [ER-]; Z17.22 Progesterone receptor negative status; Z17.32 Human epidermal growth factor receptor 2 negative status; E27.40 Unspecified adrenocortical insufficiency; E03.9 Hypothyroidism, unspecified; Z90.49 Acquired absence of other specified parts of digestive tract
CPT/HCPCS: G0463

== ENCOUNTER 2024-10-16 14:22 | Outpatient (OUT) | payer BC, SELFPAY ==
[2024-10-16 15:20] LABS: Thyroid Stimulating Hormone 2.211 uIU/mL (0.358-3.740)
[2024-10-16 15:40] LABS: Free T4 0.72 ng/dL (0.76-1.46)
== END 2024-10-16 14:23 | disposition home or self-care (01) ==
LOC: LAB 14:23
PROVIDERS: Visit Provider Internal Medicine Hematology & Oncology
DX: C50.911 Malignant neoplasm of unspecified site of right female breast (principal); M25.50 Pain in unspecified joint; M13.0 Polyarthritis, unspecified
CPT/HCPCS: 36415; 84439; 84443

== ENCOUNTER 2024-12-15 11:39 | Emergency (ER) | payer BC, SELFPAY ==
[2024-12-15 11:49] VITALS: BP 106/71; PULSE 85; TEMP 37.1; O2SAT 98; BMI 22.7
--- OUTSIDE RECORDS SUMMARY | 2024-12-15 12:07 | XMS_ITS | CCD ---
Author Organization [facility] ion Partnership [facility] Care Team Providers Care White Kid Buffer Name Role Phone Jasbir Limon Primary Care [...] Referring Provider MD Kallie Chang Attending Provider SHANTAL, DIANA P Referring Unavailable ELIEL HURD Primary Care Unavailable ELIEL HURD Primary Care Unavailable SHANTAL, DIANA P Referring Unavailable MD Eliel Hurd Primary Care Provider MD Larissa Saunders Attending Provider MD Eliel Hurd Referring Provider MD Kallie Chang Attending Provider [phone] MD Eliel Hurd Primary Care Provider MD Larissa Saunders Attending Provider MD Eliel Hurd Referring Provider MD Kallie Chang Attending Provider [phone] MD Eliel Hurd Primary Care Provider [phone] DO Alee Adam Chambers Attending Provider [phone] MD Eliel Hurd Referring Provider MD Kallie Chang Attending Provider MD Eliel Hurd Referring Provider [phone] MD Kallie Chang Attending Provider [phone] MD Eliel Hurd Referring Provider MD Kallie Chang Attending Provider MD Eliel Hurd Primary Care Provider MD Eliel Hurd Referring Provider MD Kallie Chang Attending Provider MD Eliel Hurd Primary Care Provider [phone] MD Eliel Hurd Referring Provider [phone] MD Kallie Chang Attending Provider [phone] EARNEST HDZ Admitting Unavailable HURD ., [...] Unavailable SERGEY ., DR FREITAS Attending Unavailable WHEELER, DR KRISTA Delgado Consulting Unavailable HURD ., DR ELIEL Rouse Primary Care Unavailable SERGEY ., DR FREITAS Admitting Unavailable SERGEY ., DR FREITAS Attending Unavailable SERGEY ., DR FREITAS Consulting Unavailable APLBRIEN PIERCE Admitting Unavailable SHAIKH Jun ESPAÑA Primary Care Unavailable APLING BRIEN B Attending Unavailable [facility], DR DOCTOR Consulting Unavailable HURD ., DR ELIEL Rouse Primary Care Unavailable MONIQUE ., DR KAITLIN Norton Admitting Unavailable MONIQUE ., DR KAITLIN Norton Attending Unavailable GIEDRAITIS, ANDRIUS Admitting Unavailable JUAN RICE Referring Unavailable SHAIKH ESPAÑA Primary Care Unavailable GIEDRAITIS, ANDRIUS Attending Unavailable Giedraitis , Andri Vhannahautzena Attending Unavailable Elham POZO, Booker Briones Attending Unavailable MD Eliel Hurd Primary Care Provider MD Eliazar Gibson Attending Provider [phone] Shaikh España MD Primary Care Provider SHAIKH ESPAÑA Primary Care Physician ANABEL, SYDNIE Primary Care Unavailable Ismael BERMAN Attending Unavailable Ismael BERMAN Attending Unavailable ANABEL, SYDNIE Primary Care Unavailable Sergey, Chidi Attending Provider MD Alexus España Primary Care Provider AWA MARADIAGA Referring Unavailable ELIEL HURD Primary Care Unavailable AWA MARADIAGA Attending Unavailable Shaikh España MD Primary Care Provider Chinmay Muñoz MD Primary Care Provider Andrews [employer], Demetra Unavailable Chidi Rincon DO Attending Provider NO FAMILY, PHYSICIAN Primary Care Provider Unava ilable Sergey, Chidi Attending Unavailable Shaikh España Primary Care Unavailable Sergey, Chidi Admitting Unavailable NO FAMILY, PHYSICIAN Primary Care Unavailable Sergey, Chidi Admitting Unavailable Sergey, Chidi Attending Unavailable Sparrow [employer], Demetra Unavailable [phone] Shaikh España MD Unavailable CASTILLO GONSALEZ Attending Unavailable SHAIKH ESPAÑA Attending Unavailable SHAIKH ESPAÑA Attending Unavailable HI NGUYỄN Attending Unavailable SHAIKH ESPAÑA Attending Unavailable HI NGUYỄN Attending Unavailable HI NGUYỄN Attending Unavailable HI NGUYỄN Referring Unavailable HI NGUYỄN Referring Unavailable CHIDI RINCON Attending Unavailable JACQUELINE CHAVEZ Attending Unavailable JACQUELINE CHAVEZ Referring Unavailable HI NGUYỄN Attending Unavailable DEMETRA SPARROW Attending Unavailabl e CHIDI RINCNO Attending Unavailable Allergies Allergy Classification Reported Allergen(s) Allergy Type Date of Onset Reaction(s) Facility (1 source) No Known Medication Allergies; Translations: [No Known Medication Allergies] Propensity to adverse reactions (disorder) [facility] Rep[facility] Medications Current Medications Medication Drug Class(es) Dates Sig (Normalized) Sig (Original) acetaminophen 250 mg / aspirin 250 mg / caffeine 65 mg oral tablet (17 sources) Platelet Aggregation Inhibitor, Nonsteroidal Anti-inflammatory Drug, Central Nervous System Stimulant, Methylxanthine Start: 07-08-2021 take 1 tablet by mouth every four to six hours as needed for headache Aspirin-Acetamin ophen-Caffeine (Excedrin Migraine) 250-250-65 mg Tablet Active 1 TAB PO EVERY 4-6 HOURS as needed for Headache July 08, 2021 1:00am take 1 tablet by adair th every six hours as needed for headache dhfjini-jircpbggfftvd-flpfqjxq (EXCEDRIN MIGRAINE) 250-250-65 MG per tablet Take [...] 02/22/2022 Active baclofen 10 mg oral tablet (20 sources) gamma-Aminobut yric Acid-ergic Agonist Start: 02-17-2022 End: [...] rs infusion cholecalciferol 0.125 mg oral tablet (18 sources) Vitamin D Start: 09-20-2024 take 1 tablet by mouth once daily cholecalciferol (Natural Vitamin D-3) 5,000 Units tablet Indications: Other hyperlipidemia Take 1 tablet (5,000 Units) by mouth Daily 30 tablet 2 09/20/2024 Active Start: 01-19-2024 End: 06-26-2024 take 1 tablet [...] propionate 0.05 mg/actuat metered dose nasal spray (7 sources) Corticosteroid Start: 07-19-2024 fluticasone (Flonase) 50 [...] 42 capsule 0 02/17/2022 03/03/2022 Active hydrocortisone 10 mg oral tablet (20 sources) Corticosteroid Start: 10-03-2024 take 1 tablet by mouth once daily hydrocortisone (Cortef) 10 MG tablet Indications: Drug-induced adrenocortical insufficiency (CMS/HCC) Take 1 tablet (10 mg) by mouth Daily 30 tablet 5 10/03/2024 Active Start: 09-18-2022 Hydrocortisone 20 mg Tablet Active 20 MG PO Daily September 18, 2022 1:00am 20mg and 10mg in the afternoon Start: 06-18-2022 End: 08-06-2022 Hydrocortisone 10 mg Tablet Discontinued 0 .ROUTE .COMPLEX 90 June 18, 2022 1:00am August 06, 2022 2:31pm take 2 tabs in am and 1 tab in pm Start: 06-18-2022 End: 08-06-2022 Hydrocortisone Discontinued 0 [...] mg oral tablet (20 sources) l-Thyroxine Start: 09-20-2024 take 1 tablet by mouth once daily in the morning levothyroxine (Synthroid, Levoxyl) 50 MCG tablet Indications: Hypothyroidism, unspecified TAKE 1 TABLET BY MOUTH EVERY DAY IN THE MORNING ON EMPTY STOMACH 90 tablet 1 09/20/2024 Active Start: 06-11-2023 take 1 tablet by [...] sources) Serotonin-3 Receptor Antagonist Start: 06-02-2022 take 1 tablet by mouth every eight hours Ondansetron 8 mg Tablet,Disintegrating Active 8 MG PO Q8H June 02, 2022 1:00am Start: 02-17-2022 End: 02-17-2022 ondansetron (ZOFRAN) injecti on 4 mg Start: 07-08-2021 End: 03-12-2022 take 1 tablet by mouth every eight hours as needed for nausea Ondansetron Hcl 8 mg Tablet Discontinued 8 MG PO Q8H as needed for Nausea July 08, 2021 1:00am March 12, 2022 8:55am Start: 07-03-2021 End: 08-14-2021 take 1 tablet by mouth twice daily as needed for nausea and vomiting Ondansetron 8 mg Tablet,Disintegrating Discontinued 8 MG PO Twice daily as needed for severe nausea and vomiting July 03, 2021 1:00am August 14, 2021 10:21am pantoprazole 40 mg delayed release oral tablet (20 sources) Proton Pump Inhibitor Start: 09-21-2024 take 1 tablet by mouth before mealtime pantoprazole (ProtoNix) 40 MG EC tablet Indications: Gastroesophageal reflux disease, unspecified whether esophagitis present Take 1 tablet (40 mg) by mouth in the morning. Take before meals. Do not crush, chew, or split.. 90 tablet 09/21/2024 Active Start: 06-26-2024 End: 06-26-2024 take 1 tablet [...] Active rosuvastatin calcium 20 mg oral tablet (20 sources) HMG-CoA Reductase Inhibitor Start: 11-01-2023 End: 12-23-2024 take 1 tablet by mouth once daily rosuvastatin (Crestor) 20 MG tablet Indications: Other hyperlipidemia Take 1 tablet (20 mg) by mouth Daily 90 tablet 1 06/26/2024 12/23/2024 Active Start: 06-11-2023 take 1 tablet by adair th once daily rosuvastatin 5 mg Tab 5 [...] 03-18-2023 triamcinolone acetonide (Kenalog) injection 10 mg 24 hr venlafaxine 37.5 mg extended release oral capsule (2 sources) Serotonin and Norepinephrine Reuptake Inhibitor Start: 10-25-2024 End: 10-25-2025 take 1 capsule by mouth once daily venlafaxine XR (Effexor XR) 37.5 MG 24 hr capsule Indications: Hot flashes Take 1 capsule (37.5 mg) by mouth Daily Do not crush or chew. 30 capsule 10/25/2024 10/25/2025 Active Completed/Discontinued Medications Medication Drug Class(es) Dates Sig (Normalized) Sig (Original) 24 hr buPROPion hydrochloride 150 mg extended release oral tablet (20 sources) Aminoketone Start: 12-14-2023 End: 12-23-2024 take 1 tablet by mouth once daily buPROPion XL (Wellbutrin XL) 150 MG 24 hr tablet Indications: Moderate episode of recurrent major depressive disorder (CMS/HCC) Take 1 tablet (150 mg) by mouth Daily Do not crush, chew, or split. 90 tablet 1 06/26/2024 10/25/2024 Discontinued Start: 11-03-2023 take 1 tablet by adair th once daily buPROPion 150 mg ER Tab 150 mg = 1 tab(s), Oral, Daily, Refills(s) 0 Start Date: 11/03/23 Status: Ordered cephalexin 500 mg oral capsule (14 sources) Cephalosporin Antibacterial Start: 07-03-2021 End: 07-08-2021 take 1 capsule by mouth three times daily Cephalexin 500 mg Capsule Discontinued 500 MG PO Three times daily July 03, 2021 1:00am July 08, 2021 3:07pm dexamethasone 4 mg oral tablet (20 sources) Corticosteroid Start: 09-17-2021 End: 03-12-2022 take 2 tablets by mouth twice daily Dexamethasone 4 mg Tablet Discontinued 8 MG PO Twice daily September 17, 2021 1:00am March 12, 2022 8:55am for 3 days after treatment Start: 09-17-2021 End: 03-12-2022 take 8 mg by mouth twice daily Dexamethasone Discontin ued 8 MG PO Twice daily September 17, 2021 1:00am March 12, 2022 8:55am for 3 days after treatment Start: 07-03-2021 End: 07-22-2021 take 1 tablet by mouth once daily Dexamethasone 4 mg Tablet Discontinued 4 MG PO Daily July 03, 2021 1:00am July 22, 2021 3:49pm diclofenac sodium 50 mg delayed release oral tablet (17 sources) Nonsteroidal Anti-inflammatory Drug Start: 07-08-2021 End: 03-12-2022 take 1 tablet by mouth three times daily Diclofenac Sodium 50 mg Tablet,Delayed Release (Dr/Ec) Discontinued 50 MG PO Three times daily [...] Benzodiazepine Start: 07-03-2021 End: 03-12-2022 take 1 tablet by mouth every six hours as needed for nausea and vomiting Lorazepam 1 mg Tablet Discontinued 1 MG PO Q6H as needed for Nausea And Vomiting 56 September 04, 2021 12:48pm March 12, 2022 8:55am mometasone furoate 1 mg/ml topical cream (20 sources) Corticosteroid Start: 04-16-2022 End: 08-06-2022 Mometasone 0.1 % Cream Discontinued 1 APPLIC TOPICAL Daily 45 June 09, 2022 1:12pm August 06, 2022 2:31pm omeprazole 20 mg delayed release oral capsule (18 sources) Proton Pump Inhibitor Start: 11-29-2021 take 1 capsule by mouth twice daily omeprazole (PRILOSEC) 20 mg capsule Take 20 mg by mouth twice daily. 0 11/29/2021 Active Start: 07-08-20[address] take [address] [facility] once daily Omeprazole 20 mg Capsule,Delayed Release(Dr/Ec) Active 20 MG PO Daily July 08, [...] 20 mg oral tablet (20 sources) Start: 023 End: take 2 tablets by mouth once daily Prednisone 5 mg Tablet Discontinued 10 MG PO Daily 60 August 17, 2022 1:01pm September 04, 2022 3:10pm Start: 08-17-2022 End: 09-04-2022 take 10 mg by mouth once daily Prednisone Discontinued 10 MG PO Daily 60 August 17, 2022 1:01pm September 04, 2022 3:10pm Start: 08-14-2022 End: 09-18-2022 Prednisone 20 mg Tablet Disc ontinued 20 MG PO As Directed September 04, 2022 3:09pm September 18, 2022 2:35pm take 40mg po daily for 7d then 30mg po daily for 7d then 20mg po daily Start: 08-14-2022 End: 09-18-2022 take 40 mg [...] tab daily Start: 07-23-2022 End: 08-06-2022 take 0.5 mg by mouth once daily Prednisone 20 mg Table t Discontinued 0 .ROUTE .COMPLEX 42 July 23, 2022 1:00am August 06, 2022 2:31pm 20 mg orally--take 3 tabs daily x 1 week, then 2 tabs daily x 1 week, then 1 tab daily x 1 week, then 0.5mg daily x 1 week Start: 07-23-2022 End: 08-06-2022 take 1 tablet [...] sources) Phenothiazine Start: 07-03-2021 End: 03-12-2022 take 1 tablet by mouth every six hours as needed for nausea and vomiting Prochlorperazine Maleate 10 mg Tablet Discontinued 10 MG PO Q6H as needed for mild nausea and vomiting October 13, 2021 8:26am October 22, 2021 8:35am silver sulfADIAZINE 10 mg/ml topical cream (10 sources) Sulfonamide Antibacterial Start: 06-09-2022 End: 08-06-2022 Silver Sulfadiazine (Silvadene) 1 % Cream Discontinued 1 APPLIC TOPICAL Daily June 09, 2022 1:00am August 06, 2022 [...] of toe(s), unspecified, right foot] 06-01-2024 Episodic Administrative/social admission (20 sources) Patient encounter status; Translations: [Other specified counseling] Onset: 03-02-2023 06-19-2022 Episodic Anxiety disorders (20 sources) Mixed anxiety and depressive disorder; Translations: [...] esophagitis] Onset: 04-05-2022 Chronic Headache; including migraine (20 sources) Migraine; Translations: [Migraine, unspecified, not intractable, without status migrainosus] Onset: 04-20-2011 11-30-2022 Chronic Maintenance chemotherapy; radiotherapy (20 sources) Patient encounter status; Translations: [Encounter for antineoplastic chemotherapy] 09-24-2021 Chronic Mood disorders (20 sources) Moderate recurrent major depression; Translations: [Major [...] [Glucocorticoid deficiency] 07-22-2022 Chronic Other endocrine disorders (20 sources) Drug-induced adrenocortical insufficiency; 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] Onset: 11-30-2022 11-30-2022 Chronic Other endocrine disorders (20 sources) Hypopituitarism; Translations: [Hypopituitarism] Onset: 12-14-2023 11-01-2023 Chronic Other endocrine disorders (3 sources) Unspecified adrenocortical insufficiency; Translations: [Unspecified adrenocortical insufficiency] Onset: 03-09-2024 Chronic Other nervous system disorders (1 source) Carpal tunnel syndrome; Translations: [Carpal tunnel syndrome, left upper limb] 11-25-2022 Chronic Other nervous system disorders (20 sources) Carpal tunnel syndrome of right wrist; Translations: [Carpal tunnel syndrome, right upper limb] Onset: 11-30-2022 11-30-2022 Chronic Other nervous system disorders (20 sources) Carpal tunnel syndrome of left wrist; [...] Episodic Other nutritional; endocrine; and metabolic disorders (20 sources) Body mass index 30+ - obesity; Translations: [Obesity, unspecified] Onset: 11-30-2022 11-30-2022 Chronic Other nutritional; endocrine; and metabolic disorders (1 source) Obesity 11-03-2023 Chronic Other nutritional; endocrine; and metabolic disorders (20 sources) Obesity caused by energy imbalance; Translations: [...] [Other specified postprocedural states] Onset: 02-17-2022 Episodic Residual codes; unclassified (2 sources) Flushing; Translations: [Flushing] 10-25-2024 Episodic Spondylosis; intervertebral disc disorders; other back [...] Date Documented Date Episodic/Chronic Cancer of breast (20 sources) History of malignant neoplasm of breast; Translations: [Personal history of malignant neoplasm of breast] Onset: 03-02-2023 Episodic Disorders of teeth and jaw (19 sources) Infection of tooth; Translations: [Periapical abscess without sinus] Onset: 01-13-2024 01-13-2024 Episodic Immunizations and screening for infectious disease (1 source) Encounter for screening for human papillomavirus (HPV); Translations: [ENC SCREENING HUMAN PAPILLOMAVIRUS] Onset: 04-08-2022 Episodic Other non-traumatic joint disorders (20 sources) Multiple joint pain; Translations: [Pain in unspecified joint] Onset: 11-01-2023 06-19-2022 Episodic Other non-traumatic joint disorders (19 sources) Pain in left knee; Translations: [Pain in joint, lower leg] Onset: 12-14-2023 12-14-2023 Episodic Other non-traumatic joint disorders (19 sources) Hip pain; Translations: [Pain in left hip] Onset: 12-14-2023 12-14-2023 Episodic Other nutritional; endocrine; and metabolic disorders (19 sources) Overweight in adulthood with body mass [...] CHEMO] Onset: 04-14-2022 Episodic Residual codes; unclassified (20 sources) History of breast reconstruction; Translations: [Other specified postprocedural states] Onset: 02-17-2022 03-02-2023 Episodic Residual codes; unclassified (19 sources) H/O: breast problem; Translations: [Personal history of other specified conditions] Onset: 11-04-2023 11-04-2023 Episodic Residual codes; unclassified (19 sources) Family history of cancer; Translations: [Family history of malignant neoplasm, unspecified] Onset: 11-04-2023 11-04-2023 Episodic Spondylosis; intervertebral disc disorders; other back problems (20 sources) Neck pain; Translations: [Cervical pain (neck)] Onset: 06-18-2021 09-24-2021 Episodic Unclassified (1 source) CONTACT W/AND (SUSP) EXPOS COVID-19; Translations: [CONTACT W/AND (SUSP) EXPOS COVID-19] Onset: 03-14-2022 Results Test Name Value Interpretation Reference Range Facility MM diagnostic mammo BI w/CAD on 10-05-2024 MM diagnostic mammo BI w/CAD [facility] [address] [place], [place] [id number] Mammography Report Signed Patient: Tenisha Hancock MR#: [id number] : 1975 Acct:[id number] Age/Sex: 49 / F Adm Date: 10/05/24 [facility]: [facility] Room: Type: [facility] Attending Dr: Chidi Rincon DO Ordering Provider: Chidi Rincon Date of Service: 10/05/24 Procedure(s): MM diagnostic mammo BI w/CAD Accession Number(s): ([id number]) MM/MM diagnostic mammo BI w/CAD: Z87.898 Copies to: Chidi [facility] CLINICAL DATA: History of right breast cancer. BILATERAL DIAGNOSTIC MAMMOGRAMS - FULL FIELD DIGITAL WITH TOMOSYNTHESIS AND CAD Tomosynthesis craniocaudal and mediolateral oblique views of both breasts were obtained using low- dose digital technique. Comparison is made to prior studies from April 22, 2021 through November 04, 2023. This examination was reviewed with the aid of CAD. There are scattered fibroglandular densities. There are postoperative changes on the right with areas of fat necrosis and also a calcified oil cyst. Additional benign calcifications are present on that side. On the left, there is a biopsy marking clip at the inferior central breast. There are no developing masses, typically malignant calcifications or architectural distortion. There has been no significant interval change. MM/MM diagnostic mammo BI w/CAD IMPRESSION: NO MAMMOGRAPHIC EVIDENCE OF MALIGNANCY. ROUTINE FOLLOW-UP IS RECOMMENDED IN ONE YEAR. RESULT CODE: 2 Benign Findings(s) DENSITY CODE: 2 (approximately 25-50% glandular) FOLLOW UP: 1YR The false-negative rate of mammography is approximately 10-percent. Management of a palpable abnormality must be based on clinical grounds. Patient was entered into a reminder system with a target due date for the next mammogram. Impression dictated by: Cielo Rojo M.D.10/05/2024 10:20 AM Dictation Location: [id number] Dictated By: Cielo Rojo MD 10/05/24 1005 Signed By: 10/05/24 1020 Normal [facility] Mammography reportOrdered By : Cielo Rojo on 10-05-2024 Diagnostic imaging study [facility] [address] [place] [address] Mammography Report Signed Patient: Tenisha Hancock MR#: [id number] : 1975 Acct:[id number] Age/Sex: 49 / F Adm Date: 5 Loc: [facility] Room: Type: [facility] Attending Dr: Chidi Rincon DO Ordering Provider: Chidi Rincon Date of Service: 10/05/24 Procedure(s): MM diagnostic mammo BI w/CAD Accession Number(s): ([id number]) MM/MM diagnostic mammo BI w/CAD: Z87.898 Copies to: Chidi [facility] FAMILY PHYSICIAN~ CLINICAL DATA: History of right breast cancer. BILATERAL DIAGNOSTIC MAMMOGRAMS - FULL FIELD DIGITAL WITH TOMOSYNTHESIS AND CAD Tomosynthesis craniocaudal and mediolateral oblique views of both breasts were obtained using low-dose digital technique. Comparison is made to prior studies from April 22, 2021 through November 04, 2023. This examination was reviewed withthe aid of CAD. There are scattered fibroglandular densities. There are postoperative changes on the right with areas of fat necrosis and also a calcified oil cyst. Additional benign calcifications are present on that side. On the left, there mayra biopsy marking clip at the inferior central breast. There are no developing masses, typically malignant calcifications or architectural distortion. There has been no significant interval change. MM/MM diagnostic mammo BI w/CAD IMPRESSION: NO MAMMOGRAPHIC EVIDENCE OF MALIGNANCY. ROUTINE FOLLOW-UP IS RECOMMENDED IN ONE YEAR. RESULT CODE: 2 Benign Findings(s) DENSITY CODE: 2 (approximately 25-50% glandular) FOLLOW UP: 1YR The false-negative rate of mammography is approximately 10-percent. Management of a palpable abnormality must be based on clinical grounds. Patient was entered into a reminder system with a target due date for the next mammogram. Impression dictated by: Cielo Rojo M.D.10/05/2024 10:20 AM Dictation Location: [facility] Dictated By: Cielo Rojo MD 10/05/24 1001 Signed By: 10/05/24 1020 [facility] Work Phone: XR Wrist - left 2 [facility] Imaging Result: 05/02/2024: Multiple views of left wrist showed no acute bony process including but not limited to fracture and/or dislocation. Proximal and distal carpal rows appeared to be anatomic. Impression: No acute bony process, left wrist. Jacqueline Chavez DOOR TRIMMER-OBSTETRICIAN AND GYNAECOLOGIST [facility] XR Wrist - left 2 [facility] Study observation (narrative) [facility] IGP,APTIMA HPV,AGE GDLNon AGE GDLN ACOG TESTING Note . [facility] Comment on above: TESTS RESULT FLAG UN ITS REF RANGE LAB Clinician Provided Cytology Information Source.............Cervix;Endocervix No. of containers..01 ThinPrep Vial Age Algo ACOG Beata... 30-65 01 FLAG LEGEND: L-Low Normal,H-High Normal,LL-Alert Low,HH-Alert High <-Panic Low,>-Panic High,A-Abnormal,AA-Critical Abnormal Performed at: 01 =G [facility] [place] [address] Radha Guillen MD, HPV APTIMA Negative Negative [facility] Comment on above: This nucleic acid am plification test detects fourteen high- risk HPV types (16,18,31,33,35,39,45,51,52,56,58,59,66,68) without differentiation. Performed at: = - [facility] [id number] [employer] Manager: Radha Guillen MD, Phone: [phone] Performed at: - [facility] [id number] [employer] [facility] Manager: Radha Guillen MD, Phone: [phone] IGP, APTIMA HPV, RFX 16/18,45 Note . [facility] Comment on above: TESTS RESULT FLAG UN ITS REF RANGE LAB DIAGNOSIS: 02 NEGATIVE FOR INTRAEPITHELIAL LESION OR MALIGNANCY. Specimen adequacy: 02 Satisfactory for evaluation. Endocervical and/or squamous metaplastic cells (endocervical component) are present. Performed by: Gregoria Cazares, Cement Paver ([facility]) . 02 Note: Note 02 The Pap [...] High <-Panic Low,>-Panic High,A-Abnormal,AA-Critical Abnormal Performed at: [address] [facility] [address] [address] Radha Guillen MD, BRUSH-SPATULA CERVIX ENDOCERVIX [facility] CORTISOLon 03-23-2024 Interpretation and review of laboratory results Abnormal [facility] CORTISOL 0.9 ug/dL Abnormal 6.2 - 19.4 ug/dL [facility] Comment on above: Please Note: The ref erence interval and flagging for this test is for an AM collection. If this is a PM collection please use: Cortisol PM: 2.3-11.9 Performed at: [facility] [id number] [employer] Manager: Red Sena PhD, Phone: [phone] [facility] 36on 03-15-2024 36 Called patient to inform regarding lab results. Left voice message. FSH is elevated consistent with menopause. Prolactin normal. No further testing needed. Normal [facility] Telephoneon 03-15-2024 Telephone [phone] Tenisha Hancock 1975 F Date Provider Department Center 03/15/2024 ERIKA CABRERA [facility] ENDOCR [facility] No family history on file Reason for Visit and Comments: Labs [[id number]] Normal [facility] 37on 03-09-2024 37 Please take your [...] intramuscular injection (Solu-Cortef Act-O-Vial): Solu-Cortef Emergency Injection [email or web address] Normal [facility] E2 [Mass/Vol]on 03-09-2024 ESTRADIOL 67.8 pg/mL Normal [facility] Comment on above: Result Comment: NON- FEMALES [...] assay. Performed By: #### 2 842-3, 2243-4, 80661-4 #### [facility] ([id number]) [address] [place] [address], [address] [place] [address] Follitropin Qnon 03-09-2024 FOLLICLE STIM HORMONE 58.1 mIU/mL Normal [facility] Comment on above: Result Comment: NORMAL FEMALE Luteal 1.8-5.1 mIU/mL Follicular 3.8-8.8 mIU/mL Mid Cycle 4.5-22.5 mIU/mL Post Romy 16.7-113.6 mIU/mL Performed By: #### 2 842-3, 2243-4, 18752-2 #### [facility] ([id number]) [address] [place] [address], [address] [place] [address] Office Visiton 03-09-2024 Follow-up visit [id number] Tenisha Hancock 1975 F Date Provider Department Center 03/09/2024 [facility]AWA MARADIAGA [facility] ENDOCR [facility] No family history on file Level of Service:25558 SC OFFICE/OUTPATIENT NEW MODERATE MDM 45 MINUTES Reason for Visit and Comments: New Patient [632] Normal [facility] Prolactin [Mass/Vol]on 03-09 PROLACTIN 4.8 ng/mL Normal 3.3-26.7 [facility] Comment on above: Performed By: #### 2 842-3, 2243-4, 99067-0 #### [facility] ([id number]) [address] [place] [address], [address] [place] [address] MR breast BI wo/w con CADon 01-11-2024 MR breast BI wo/w con CAD [facility] [place] [address] MRI Report Signed Patient: Tenisha Hancock MR#: [id number] : 1975 Acct:[id number] Age/Sex: 48 / F ADM Date: 01/10/24 Loc: MR Room: Type: [facility] Attending Dr: Chidi Rincon [...] All imaged data was reviewed using the avox system. The postcontrast images were subtracted and [...] Guzman Jr., D.OSavanah01/11/2024 10:59 AM Dictation Location: [place] [address] Transcribed By: [facility] 01/11/24 1059 Dictated By: Jamari Guzman Jr, DO 01/11/24 1047 Signed By: 01/11/24 1059 Normal [facility] Outside Colonoscopyon 2023 Outside Colonoscopy [id number]#1. 00TIFF Normal [facility] Lab Reportson 12-23-2023 Lab Reports [id number]#1. 00TIFF [facility] Reminderson 12-23-2023 Reminders - From: Andie Hodge LPN To: [facility] - Clinical; Sent: 12/23/2023 12:00:00 EDT Show up: 11/20/2033 07:00:00 EDT Subject: colonoscopy recall Due Date/Time: 12/21/2033 07:00:00 EDT Reminder/Recall Patient due for screening colonoscopy 12/21/2033. [facility] Insurance Correspondenceon 0 12-08-2023 Insurance Correspondence [id number]# 1.00TIFF [facility] Consent for Procedure/Surger yon 11-04-2023 Consent for Procedure/Surgery [id number]#1 .00TIFF [facility] Facesheeton 11-04-2023 Facesheet [id number]# 1.00TIFF [facility] Ambulatory Visit Summaryon 0 11-03-2023 Ambulatory Visit Summary WALLACEKEITH TENISHA Chambers :1975 Visit Date:11/03/2023 Ambulatory Visit Instructions Your [...] for choosing us for your care. Normal [facility] Physician Referralon 024 Physician Referral [id number]#1 .00TIFF Normal [facility] Physician Referralon 024 Physician Referral [id number]#1. 00TIFF Normal [facility] Physician Referralon 023 Physician Referral [id number]#1 .00TIFF Normal [facility] Physician Referralon 023 Physician Referral [id number]#1 .00TIFF [facility] C reactive protein [Mass/vol ume] in Serum or PlasmaOrdered By: Eliazar Gibson on 04-07-2023 CRP [Mass/Vol] < 0.5 mg/dL 0.0-0.5 [facility] Erythrocyte sedimentation ra te by Photometric methodOrdered By: Eliazar Gibson on 04-07-2023 ESR Photometric method (Bld) [Velocity] 22 mm/hr 0-19 [facility] Retail - Clinical Noteon Retail - Clinical Note [id number]#1. 00CD:127 Normal [facility] Serum or plasma thyroperoxid ase antibody assay (units/volume)Ordered By: Elizabeth Pérez on 11-16-2022 TPO Ab Qn 13 [IU]/mL 0-34 [facility] Comment on above: Performed at: [address] Director: Red Sena PhD, Phone: [phone] Thyrotropin [Units/volume] i n Serum or PlasmaOrdered By: Elizabeth Pérez on 11-16-2022 TSH Qn 1.03 m[IU]/L 0.45-5.33 [facility] Thyroxine (T4) free [Mass/vo lume] in Serum or PlasmaOrdered By: Elizabeth Pérez on 11-16-2022 Free T4 [Mass/Vol] 1.03 ng/dL 0.61-1.12 [facility] Triiodothyronine (T3) Free [ Mass/volume] in Serum or PlasmaOrdered By: Elizabeth Pérez on 11-16-2022 Free T3 [Mass/Vol] 4.39 pg/mL 2.50-3.90 [facility] Albumin [Mass/volume] in Bod y fluidOrdered By: Kallie Chang on 09-16-2022 Albumin (Body fld) [Mass/Vol] 3.7 g/dL 3.2-5.5 [facility] Alkaline phosphatase [Enzyma tic activity/volume] in Serum or PlasmaOrdered By: Kallie Chang on 09-16-2022 ALP [Catalytic activity/Vol] 85 U/L 32-92 [facility] Aspartate aminotransferase [ Enzymatic activity/volume] in Serum or PlasmaOrdered By: Kallie Chang on 09-16-2022 AST [Catalytic activity/Vol] 20 U/L 10-42 [facility] Basophils Auto (Bld) [#/Vol] Ordered By: Kallie Chang on 09-16-2022 Basophils (Bld) [#/Vol] 0.0 10*3/uL 0.0-0.2 [facility] Basophils/100 WBC Auto (Bld) Ordered By: Kallie Chang on 09-16-2022 Basophils/100 WBC (Bld) 0.3 % . [facility] Bilirubin.total [Mass/volume ] in Serum or PlasmaOrdered By: Kallie Chang on 09-16-2022 Bilirubin [Mass/Vol] 0.6 mg/dL 0.3-1.2 [facility] Calcium [Mass/volume] in Ser um or PlasmaOrdered By: Kallie Chang on 09-16-2022 Calcium [Mass/Vol] 9.2 mg/dL 8.2-10.2 [facility] Carbon dioxide, total [Moles /volume] in Serum or PlasmaOrdered By: Kallie Chang on 09-16-2022 CO2 [Moles/Vol] 23.1 mmol/L 22.0-30.0 [facility] Chloride [Moles/volume] in S nathaly or PlasmaOrdered By: Kallie Chang on 09-16-2022 Chloride [Moles/Vol] 102 mmol/L 95-114 [facility] Creatinine and Glomerular fi ltration rate.predicted panel (S/P/Bld)Ordered By: Kallie Chang on 09-16-2022 Creatinine [Mass/Vol] 0.98 mg/dL 0.44-1.03 [facility] Eosinophils Auto (Bld) [#/Vo l]Ordered By: Kallie Chang on 09-16-2022 Eosinophils (Bld) [#/Vol] 0.0 10*3/uL 0.0-0.45 [facility] Eosinophils/100 WBC Auto (Bl d)Ordered By: Kallie Chang on 09-16-2022 Eosinophils/100 WBC (Bld) 0.1 % . [facility] Erythrocyte distribution wid th Auto (RBC) [Ratio]Ordered By: Kallie Chang on 09-16-2022 Erythrocyte distribution width (RBC) [Ratio] 15.1 % 11.9-15.3 [facility] Estimated glomerular filtrat ion rate (GFR) non- AmericanOrdered By: Kallie Chang on 09-16-2022 GFR/1.73 sq M.predicted among non-blacks MDRD (S/P/Bld) [Vol rate/Area] > 60 mL/Min [facility] Globulin Calc (S) [Mass/Vol] Ordered By: Kallie Chang on 09-16-2022 Globulin (S) [Mass/Vol] 2.8 g/dL [facility] Glucose [Mass/volume] in Ser um or PlasmaOrdered By: Kallie Chang on 09-16-2022 Glucose [Mass/Vol] 176 mg/dL 70-100 [facility] Comment on above: ADA recommended refe rence rangeRandom Glucose Reference Range is dependent on time and content of last meal. Glucose of more than 200 mg/dL in a nonstressed, ambulatory subject supports the diagnosis of Diabetes Mellitus. Hematocrit Auto (Bld) [Volum e fraction]Ordered By: Kallie Chang on 09-16-2022 Hematocrit (Bld) [Volume fraction] 38.3 % 34.0-46.4 [facility] Hemoglobin [Mass/volume] in BloodOrdered By: Kallie Chang on 09-16-2022 Hemoglobin (Bld) [Mass/Vol] 12.5 g/dL 11.8-15.4 [facility] Leukocytes [#/volume] correc annie for nucleated erythrocytes in Blood by Automated counOrdered By: Kallie Chang on 09-16-2022 WBC corrected for nucl RBC Auto (Bld) [#/Vol] 11.5 10*3/uL 3.8-11.6 [facility] Lymphocytes Auto (Bld) [#/Vo l]Ordered By: Kallie Chang on 09-16-2022 Lymphocytes (Bld) [#/Vol] 0.7 10*3/uL 1.00-4.8 [facility] Lymphocytes/100 WBC Auto (Bl d)Ordered By: Kallie Chang on 09-16-2022 Lymphocytes/100 WBC (Bld) 6.2 % . [facility] MCH Auto (RBC) [Entitic mass ]Ordered By: Kallie Chang on 09-16-2022 MCH (RBC) [Entitic mass] 30.2 pg 24.7-34.3 [facility] MCHC Auto (RBC) [Mass/Vol]Or dered By: Kallie Chang on 09-16-2022 MCHC (RBC) [Mass/Vol] 32.7 g/dL 32.0-35.0 Fir [facility] MCV Auto (RBC) [Entitic vol] Ordered By: Kallie Chang on 09-16-2022 MCV (RBC) [Entitic vol] 92.4 fL 80-100 [facility] Monocytes Auto (Bld) [#/Vol] Ordered By: Kallie Chang on 09-16-2022 Monocytes (Bld) [#/Vol] 0.3 10*3/uL 0.0-0.8 [facility] Monocytes/100 WBC Auto (Bld) Ordered By: Kallie Chang on 09-16-2022 Monocytes/100 WBC (Bld) 2.3 % . [facility] Neutrophils Auto (Bld) [#/Vo l]Ordered By: Kallie Chang on 09-16-2022 Neutrophils (Bld) [#/Vol] 10.4 10*3/uL 1.8-7.7 [facility] Neutrophils/100 WBC Auto (Bl d)Ordered By: Kallie Chang on 09-16-2022 Neutrophils/100 WBC (Bld) 91.1 % . [facility] No Panel InformationOrdered By: Kallie Chang on 09-16-2022 Adrenocorticotropic Hormone <1.5 pg/mL 7.2-63.3 [facility] Comment on above: ACTH reference inter ervin for samples collected between 7 and10 AM.Performed at: [address], [place], [place] [id number] Director: Red Sena PhD, Phone: [phone] Estimated GFR () > 60 mL/Min [facility] Comment on above: GFR estimated refere nce range: According to KDOQI guidelines, <60 ml/min/1.73m2 is sufficient to diagnose a patient with chronic kidney disease. Pharmacy Creatinine Clearance (Chem 72.74 [facility] Nucleated erythrocytes [Pres ence] in Blood by Automated countOrdered By: Kallie Chang on 09-16-2022 Nucleated RBC Auto Ql (Bld) 0.1 /100{WBC} 0-0.5 [facility] Platelet mean volume Auto (B ld) [Entitic vol]Ordered By: Kallie Chang on 09-16-2022 Platelet mean volume (Bld) [Entitic vol] 6.9 fL 6.3-10.7 [facility] Platelets Auto (Bld) [#/Vol] Ordered By: Kallie Chang on 09-16-2022 Platelets (Bld) [#/Vol] 287 10*3/uL 150-450 [facility] Potassium [Moles/volume] in Serum or PlasmaOrdered By: Kallie Chang on 09-16-2022 Potassium [Moles/Vol] 4.3 mmol/L 3.5-5.1 [facility] Protein [Mass/volume] in Ser um or PlasmaOrdered By: Kallie Chang on 09-16-2022 Protein [Mass/Vol] 6.5 g/dL 6.1-7.9 [facility] RBC Auto (Bld) [#/Vol]Ordere d By: Kallie Chang on 09-16-2022 RBC (Bld) [#/Vol] 4.14 10*6/uL 3.60-5.00 [facility] Random cortisol measurementO rdered By: Kallie Chang on 09-16-2022 Cortisol [Mass/Vol] 3.7 ug/dL [facility] Comment on above: Reference range: AM 6 - 24 ug/dl PM <10 ug/dl Serum or plasma alanine napoles otransferase measurement without P-5'-P (enzymatic activiOrdered By: Kallie Chang on 09-16-2022 ALT No additional P-5'-P [Catalytic activity/Vol] 16 U/L 10-60 [facility] Serum or plasma albumin/glob ulin mass ratioOrdered By: Kallie Chang on 09-16-2022 Albumin/Globulin [Mass ratio] 1.3 {ratio} [facility] Serum or plasma anion gap de terminationOrdered By: Kallie Chang on 09-16-2022 Anion gap [Moles/Vol] 13.2 mmol/L 6.0-15.0 [facility] Sodium [Moles/volume] in Ser um or PlasmaOrdered By: Kallie Chang on 09-16-2022 Sodium [Moles/Vol] 134 mmol/L 136-146 [facility] TSH DL <= 0.005 mIU/L QnOrde red By: Kallie Chang on 09-16-2022 TSH Qn 0.51 m[IU]/L 0.45-5.33 [facility] Thyroxine (T4) free [Mass/vo lume] in Serum or PlasmaOrdered By: Kallie Chang on 09-16-2022 Free T4 [Mass/Vol] 0.84 ng/dL 0.61-1.12 [facility] Urea nitrogen [Mass/volume] in Serum or PlasmaOrdered By: Kallie Chang on 09-16-2022 Urea nitrogen [Mass/Vol] 15 mg/dL 9-23 [facility] WBC Auto (Bld) [#/Vol]Ordere d By: Kallie Chang on 09-16-2022 WBC (Bld) [#/Vol] 11.5 10*3/uL 3.8-11.6 [facility] Albumin [Mass/volume] in Ser um or PlasmaOrdered By: Kallie Chang on 08-05-2022 Albumin [Mass/Vol] 3.8 g/dL 3.2-5.5 [facility] Basophils Auto (Bld) [#/Vol] Ordered By: Kallie Chang on 08-05-2022 Basophils (Bld) [#/Vol] 0.0 10*3/uL 0.0-0.2 [facility] Basophils/100 WBC Auto (Bld) Ordered By: Kallie Chang on 08-05-2022 Basophils/100 WBC (Bld) 0.2 % . F [facility] Creatinine and Glomerular fi ltration rate.predicted panel (S/P/Bld)Ordered By: Kallie Chang on 08-05-2022 Creatinine [Mass/Vol] 1.03 mg/dL 0.44-1.03 [facility] Eosinophils Auto (Bld) [#/Vo l]Ordered By: Kallie Chang on 08-05-2022 Eosinophils (Bld) [#/Vol] 0.0 10*3/uL 0.0-0.45 [facility] Eosinophils/100 WBC Auto (Bl d)Ordered By: Kallie Chang on 08-05-2022 Eosinophils/100 WBC (Bld) 0.0 % . [facility] Erythrocyte distribution wid th Auto (RBC) [Ratio]Ordered By: Kallie Chang on 08-05-2022 Erythrocyte distribution width (RBC) [Ratio] 14.9 % 11.9-15.3 [facility] Estimated glomerular filtrat ion rate (GFR) non- AmericanOrdered By: Kallie Chang on 08-05-2022 GFR/1.73 sq M.predicted among non-blacks MDRD (S/P/Bld) [Vol rate/Area] 58 mL/Min [facility] Globulin Calc (S) [Mass/Vol] Ordered By: Kallie Chang on 08-05-2022 Globulin (S) [Mass/Vol] 2.9 g/dL F [facility] Hematocrit Auto (Bld) [Volum e fraction]Ordered By: Kallie Chang on 08-05-2022 Hematocrit (Bld) [Volume fraction] 37.2 % 34.0-46.4 [facility] Hemoglobin [Mass/volume] in BloodOrdered By: aKllie Chang on 08-05-2022 Hemoglobin (Bld) [Mass/Vol] 12.2 g/dL 11.8-15.4 [facility] Lactate dehydrogenase measur ement (enzymatic activity/volume)Ordered By: Kallie Chang on 08-05-2022 LDH (Unsp spec) [Catalytic activity/Vol] 169 U/L 45-190 [facility] Leukocytes [#/volume] correc annie for nucleated erythrocytes in Blood by Automated counOrdered By: Kallie Chang on 08-05-2022 WBC corrected for nucl RBC Auto (Bld) [#/Vol] 9.3 10*3/uL 3.8-11.6 [facility] Lymphocytes Auto (Bld) [#/Vo l]Ordered By: Kallie Chang on 08-05-2022 Lymphocytes (Bld) [#/Vol] 0.5 10*3/uL 1.00-4.8 [facility] Lymphocytes/100 WBC Auto (Bl d)Ordered By: Kallie Chang on 08-05-2022 Lymphocytes/100 WBC (Bld) 5.5 % . [facility] MCH Auto (RBC) [Entitic mass ]Ordered By: Kallie Chang on 08-05-2022 MCH (RBC) [Entitic mass] 29.8 pg 24.7-34.3 [facility] MCHC Auto (RBC) [Mass/Vol]Or dered By: Kallie Chang on 08-05-2022 MCHC (RBC) [Mass/Vol] 32.8 g/dL 32.0-35.0 [facility] MCV Auto (RBC) [Entitic vol] Ordered By: Kallie Chang on 08-05-2022 MCV (RBC) [Entitic vol] 90.9 fL 80-100 [facility] Monocytes Auto (Bld) [#/Vol] Ordered By: Kallie Chang on 08-05-2022 Monocytes (Bld) [#/Vol] 0.1 10*3/uL 0.0-0.8 [facility] Monocytes/100 WBC Auto (Bld) Ordered By: Kallie Chang on 08-05-2022 Monocytes/100 WBC (Bld) 1.4 % . [facility] Neutrophils Auto (Bld) [#/Vo l]Ordered By: Kallie Chang on 08-05-2022 Neutrophils (Bld) [#/Vol] 8.7 10*3/uL 1.8-7.7 [facility] Neutrophils/100 WBC Auto (Bl d)Ordered By: Kallie Chang on 08-05-2022 Neutrophils/100 WBC (Bld) 92.9 % . [facility] No Panel InformationOrdered By: Kallie Chang on 08-05-2022 Adrenocorticotropic Hormone <1.5 pg/mL 7.2-63.3 [facility] Comment on above: ACTH reference inter ervin for samples collected between 7 and10 AM.Performed at: [employer] [id number] Director: Red Sena PhD, Phone: [phone] Estimated GFR () > 60 mL/Min [facility] Comment on above: GFR estimated refere nce range: According to KDOQI guidelines, <60 ml/min/1.73m2 is sufficient to diagnose a patient with chronic kidney disease. Pharmacy Creatinine Clearance (Chem 67.73 [facility] Nucleated erythrocytes [Pres ence] in Blood by Automated countOrdered By: Kallie Chang on 08-05-2022 Nucleated RBC Auto Ql (Bld) 0.0 /100{WBC} 0-0.5 [facility] Platelet mean volume Auto (B ld) [Entitic vol]Ordered By: Kallie Chang on 08-05-2022 Platelet mean volume (Bld) [Entitic vol] 7.1 fL 6.3-10.7 [facility] Platelets Auto (Bld) [#/Vol] Ordered By: Kallie Chang on 08-05-2022 Platelets (Bld) [#/Vol] 263 10*3/uL 150-450 [facility] Protein [Mass/volume] in Ser um or PlasmaOrdered By: Kallie Chang on 08-05-2022 Protein [Mass/Vol] 6.7 g/dL 6.1-7.9 [facility] RBC Auto (Bld) [#/Vol]Ordere d By: Kallie Chang on 08-05-2022 RBC (Bld) [#/Vol] 4.09 10*6/uL 3.60-5.00 [facility] Serum or plasma alanine napoles otransferase measurement without P-5'-P (enzymatic activiOrdered By: Kallie Chang on 08-05-2022 ALT No additional P-5'-P [Catalytic activity/Vol] 16 U/L 10-60 [facility] Serum or plasma albumin/glob ulin mass ratioOrdered By: Kallie Chang on 08-05-2022 Albumin/Globulin [Mass ratio] 1.3 {ratio} [facility] Serum or plasma alkaline zo sphatase measurement (enzymatic activity/volume)Ordered By: Kallie Chang on 08-05-2022 ALP [Catalytic activity/Vol] 89 U/L 32-92 [facility] Serum or plasma anion gap de terminationOrdered By: Kallie Chang on 08-05-2022 Anion gap [Moles/Vol] 16.6 mmol/L 6.0-15.0 [facility] Serum or plasma aspartate am inotransferase measurement (enzymatic activity/volume)Ordered By: Kallie Chang on 08-05-2022 AST [Catalytic activity/Vol] 18 U/L 10-42 [facility] Serum or plasma calcium daiana urement (mass/volume)Ordered By: Kallie Chang on 08-05-2022 Calcium [Mass/Vol] 9.1 mg/dL 8.2-10.2 [facility] Serum or plasma chloride lizett surement (moles/volume)Ordered By: Kallie Chang on 08-05-2022 Chloride [Moles/Vol] 99 mmol/L 95-114 [facility] Serum or plasma glucose daiana urement (mass/volume)Ordered By: Kallie Chang on 08-05-2022 Glucose [Mass/Vol] 164 mg/dL 70-100 [facility] Comment on above: ADA recommended refe rence rangeRandom Glucose Reference Range is dependent on time and content of last meal. Glucose of more than 200 mg/dL in a nonstressed, ambulatory subject supports the diagnosis of Diabetes Mellitus. Serum or plasma potassium me asurement (moles/volume)Ordered By: Kallie Chang on 08-05-2022 Potassium [Moles/Vol] 4.6 mmol/L 3.5-5.1 [facility] Serum or plasma sodium measu rement (moles/volume)Ordered By: Kallie Chang on 08-05-2022 Sodium [Moles/Vol] 135 mmol/L 136-146 [facility] Serum or plasma total biliru bin measurement (mass/volume)Ordered By: Kallie Chang on 08-05-2022 Bilirubin [Mass/Vol] 0.7 mg/dL 0.3-1.2 [facility] Serum or plasma total carbon dioxide measurement (moles/volume)Ordered By: Kallie Chang on 08-05-2022 CO2 [Moles/Vol] 24.0 mmol/L 22.0-30.0 [facility] Serum or plasma urea nitroge n measurement (mass/volume)Ordered By: Kallie Chang on 08-05-2022 Urea nitrogen [Mass/Vol] 15 mg/dL 9-23 [facility] TSH DL <= 0.005 mIU/L QnOrde red By: Kallie Chang on 08-05-2022 TSH Qn 0.70 m[IU]/L 0.45-5.33 [facility] Thyroxine (T4) free [Mass/vo lume] in Serum or PlasmaOrdered By: Kallie Chang on 08-05-2022 Free T4 [Mass/Vol] 0.71 ng/dL 0.61-1.12 [facility] WBC Auto (Bld) [#/Vol]Ordere d By: Kallie Chang on 08-05-2022 WBC (Bld) [#/Vol] 9.3 10*3/uL 3.8-11.6 [facility] Random cortisol measurementO rdered By: Kallie Chang on 07-22-2022 Cortisol [Mass/Vol] 2.6 ug/dL [facility] Comment on above: Reference range: AM 6 - 24 ug/dl PM <10 ug/dl Albumin [Mass/volume] in Ser um or PlasmaOrdered By: Kallie Chang on 06-17-2022 Albumin [Mass/Vol] 3.6 g/dL 3.2-5.5 [facility] Basophils Auto (Bld) [#/Vol] Ordered By: Kallie Chang on 06-17-2022 Basophils (Bld) [#/Vol] 0.0 10*3/uL 0.0-0.2 [facility] Basophils/100 WBC Auto (Bld) Ordered By: Kallie Chang on 06-17-2022 Basophils/100 WBC (Bld) 0.7 % . F [facility] Creatinine and Glomerular fi ltration rate.predicted panel (S/P/Bld)Ordered By: Kallie Chang on 06-17-2022 Creatinine [Mass/Vol] 0.66 mg/dL 0.44-1.03 [facility] Eosinophils Auto (Bld) [#/Vo l]Ordered By: Kallie Chang on 06-17-2022 Eosinophils (Bld) [#/Vol] 0.1 10*3/uL 0.0-0.45 [facility] Eosinophils/100 WBC Auto (Bl d)Ordered By: Kallie Chang on 06-17-2022 Eosinophils/100 WBC (Bld) 2.7 % . [facility] Erythrocyte distribution wid th Auto (RBC) [Ratio]Ordered By: Kallie Chang on 06-17-2022 Erythrocyte distribution width (RBC) [Ratio] 13.2 % 11.9-15.3 [facility] Estimated glomerular filtrat ion rate (GFR) non- AmericanOrdered By: Kallie Chang on 06-17-2022 GFR/1.73 sq M.predicted among non-blacks MDRD (S/P/Bld) [Vol rate/Area] > 60 mL/Min [facility] Globulin Calc (S) [Mass/Vol] Ordered By: Kallie Chang on 06-17-2022 Globulin (S) [Mass/Vol] 2.6 g/dL [facility] Hematocrit Auto (Bld) [Volum e fraction]Ordered By: Kallie Chang on 06-17-2022 Hematocrit (Bld) [Volume fraction] 32.8 % 34.0-46.4 [facility] Hemoglobin [Mass/volume] in BloodOrdered By: Kallie Chang on 06-17-2022 Hemoglobin (Bld) [Mass/Vol] 10.7 g/dL 11.8-15.4 [facility] Leukocytes [#/volume] correc annie for nucleated erythrocytes in Blood by Automated counOrdered By: Kallie Chang on 06-17-2022 WBC corrected for nucl RBC Auto (Bld) [#/Vol] 5.1 10*3/uL 3.8-11.6 [facility] Lymphocytes Auto (Bld) [#/Vo l]Ordered By: Kallie Chang on 06-17-2022 Lymphocytes (Bld) [#/Vol] 0.9 10*3/uL 1.00-4.8 [facility] [facility] Lymphocytes/100 WBC Auto (Bl d)Ordered By: Kallie Chang on 06-17-2022 Lymphocytes/100 WBC (Bld) 17.2 % . [facility] MCH Auto (RBC) [Entitic mass ]Ordered By: Kallie Chang on 06-17-2022 MCH (RBC) [Entitic mass] 29.5 pg 24.7-34.3 [facility] MCHC Auto (RBC) [Mass/Vol]Or dered By: Kallie Chang on 06-17-2022 MCHC (RBC) [Mass/Vol] 32.8 g/dL 32.0-35.0 [facility] MCV Auto (RBC) [Entitic vol] Ordered By: Kallie Chang on 06-17-2022 MCV (RBC) [Entitic vol] 90.0 fL 80-100 F [facility] Monocytes Auto (Bld) [#/Vol] Ordered By: Kallie Chang on 06-17-2022 Monocytes (Bld) [#/Vol] 0.5 10*3/uL 0.0-0.8 [facility] Monocytes/100 WBC Auto (Bld) Ordered By: Kallie Chang on 06-17-2022 Monocytes/100 WBC (Bld) 10.3 % . F [facility] Neutrophils Auto (Bld) [#/Vo l]Ordered By: Kallie Chang on 06-17-2022 Neutrophils (Bld) [#/Vol] 3.5 10*3/uL 1.8-7.7 [facility] Neutrophils/100 WBC Auto (Bl d)Ordered By: Kallie Chang on 06-17-2022 Neutrophils/100 WBC (Bld) 69.1 % . [facility] No Panel InformationOrdered By: Kallie Chang on 06-17-2022 Adrenocorticotropic Hormone 8.2 pg/mL 7.2-63.3 [facility] Comment on above: ACTH reference inter ervin for samples collected between 7 and10 AM.Performed at: [facility] [id number] Director: Red Sena PhD, Phone: [phone] Estimated GFR () > 60 mL/Min [facility] Comment on above: GFR estimated refere nce range: According to KDOQI guidelines, <60 ml/min/1.73m2 is sufficient to diagnose a patient with chronic kidney disease. Pharmacy Creatinine Clearance (Chem 110.52 [facility] Nucleated erythrocytes [Pres ence] in Blood by Automated countOrdered By: Kallie Chang on 06-17-2022 Nucleated RBC Auto Ql (Bld) 0.0 /100{WBC} 0-0.5 [facility] Platelet mean volume Auto (B ld) [Entitic vol]Ordered By: Kallie Chang on 06-17-2022 Platelet mean volume (Bld) [Entitic vol] 7.2 fL 6.3-10.7 [facility] Platelets Auto (Bld) [#/Vol] Ordered By: Kallie Chang on 06-17-2022 Platelets (Bld) [#/Vol] 241 10*3/uL 150-450 [facility] Protein [Mass/volume] in Ser um or PlasmaOrdered By: Kallie Chang on 06-17-2022 Protein [Mass/Vol] 6.2 g/dL 6.1-7.9 [facility] RBC Auto (Bld) [#/Vol]Ordere d By: Kallie Chang on 06-17-2022 RBC (Bld) [#/Vol] 3.64 10*6/uL 3.60-5.00 [facility] Random cortisol measurementO rdered By: Kallie Chang on 06-17-2022 Cortisol [Mass/Vol] 0.4 ug/dL [facility] Comment on above: Reference range: AM 6 - 24 ug/dl PM <10 ug/dl Serum or plasma alanine napoles otransferase measurement without P-5'-P (enzymatic activiOrdered By: Kallie Chang on 06-17-2022 ALT No additional P-5'-P [Catalytic activity/Vol] 34 U/L 10-60 [facility] Serum or plasma albumin/glob ulin mass ratioOrdered By: Kallie Chang on 06-17-2022 Albumin/Globulin [Mass ratio] 1.4 {ratio} [facility] Serum or plasma alkaline zo sphatase measurement (enzymatic activity/volume)Ordered By: Kallie Chang on 06-17-2022 ALP [Catalytic activity/Vol] 82 U/L 32-92 [facility] Serum or plasma anion gap de terminationOrdered By: Kallie Chang on 06-17-2022 Anion gap [Moles/Vol] 11.1 mmol/L 6.0-15.0 [facility] Serum or plasma aspartate am inotransferase measurement (enzymatic activity/volume)Ordered By: Kallie Chang on 06-17-2022 AST [Catalytic activity/Vol] 36 U/L 10-42 [facility] Serum or plasma calcium daiana urement (mass/volume)Ordered By: Kallie Chang on 06-17-2022 Calcium [Mass/Vol] 9.5 mg/dL 8.2-10.2 [facility] Serum or plasma chloride lizett surement (moles/volume)Ordered By: Kallie Chang on 06-17-2022 Chloride [Moles/Vol] 101 mmol/L 95-114 [facility] Serum or plasma glucose daiana urement (mass/volume)Ordered By: Kallie Chang on 06-17-2022 Glucose [Mass/Vol] 94 mg/dL 70-100 [facility] Comment on above: ADA recommended refe rence rangeRandom Glucose Reference Range is dependent on time and content of last meal. Glucose of more than 200 mg/dL in a nonstressed, ambulatory subject supports the diagnosis of Diabetes Mellitus. Serum or plasma potassium me asurement (moles/volume)Ordered By: Kallie Chang on 06-17-2022 Potassium [Moles/Vol] 3.6 mmol/L 3.5-5.1 [facility] Serum or plasma sodium measu rement (moles/volume)Ordered By: Kallie Chang on 06-17-2022 Sodium [Moles/Vol] 133 mmol/L 136-146 [facility] Serum or plasma total biliru bin measurement (mass/volume)Ordered By: Kallie Chang on 06-17-2022 Bilirubin [Mass/Vol] 0.8 mg/dL 0.3-1.2 [facility] Serum or plasma total carbon dioxide measurement (moles/volume)Ordered By: Kallie Chang on 06-17-2022 CO2 [Moles/Vol] 24.5 mmol/L 22.0-30.0 [facility] Serum or plasma urea nitroge n measurement (mass/volume)Ordered By: Kallie Chang on 06-17-2022 Urea nitrogen [Mass/Vol] 7 mg/dL 9- [facility] TSH DL <= 0.005 mIU/L QnOrde red By: Kallie Chang on 06-17-2022 TSH Qn 2.66 m[IU]/L 0.45-5.33 [facility] Thyroxine (T4) free [Mass/vo lume] in Serum or PlasmaOrdered By: Kallie Chang on 06-17-2022 Free T4 [Mass/Vol] 0.43 ng/dL 0.61-1.12 [facility] WBC Auto (Bld) [#/Vol]Ordere d By: Kallie Chang on 06-17-2022 WBC (Bld) [#/Vol] 5.1 10*3/uL 3.8-11.6 [facility] Laboratory - Hematology and Cell countsOrdered By: Kallie Chang on 05-27-2022 Nucleated RBC/100 WBC (Bld) [Ratio] 0.1 % 0-0.5 [facility] No Panel InformationOrdered By: Kallie Chang on 05-27-2022 Adrenocorticotropic Hormone 14.9 pg/mL 7.2-63.3 [facility] Comment on above: ACTH reference inter ervin for samples collected between 7 and10 AM.Performed at: - [address] [id number] Director: Red Sena PhD, Phone: [phone] HCG ( test) Cheryl bryan Ql (U)Ordered By: Stacie Thomas on 04-16-2022 HCG ( test) Ql (U) Negative [facility] PAP ACOG PANEL 2: 30 to 65on 04-16-2022 . . Normal [facility] Comment on above: Result Comment: Perf ormed at: WB Performed By: #### [id number] #### [facility] [address] [place] [address] Dr. Lilly Varner Age Gdln ACOG Testing 30-65 Normal [facility] Comment on above: Performed By: #### [id number] #### [facility] [address] [address] [address] Lilly Varner DIAGNOSIS: Comment Normal [facility] Comment on above: Result Comment: NEGA TIVE FOR INTRAEPITHELIAL LESION OR MALIGNANCY. THIS SPECIMEN WAS RESCREENED PART OF OUR [employer]GRAM. Performed at: WB Performed By: #### [id number] #### [facility] [address] [address] [address] Lilly Varner HPV Aptima Positive Abnormal Negative [facility] Comment on above: Result Comment: This nucleic acid amplification test detects fourteen high-risk HPV types (16,18,31,33,35,39,45,51,52,56,58,59,66,68) without differentiation. Performed at: =G Performed By: #### [id number] #### [facility] [address] [address] [address] Lilly Varner HPV Genotype 16 Negative Normal Negative [facility] Comment on above: Result Comment: Perf ormed at: =G Performed By: #### [id number] #### [facility] [address] [address] [address] Lilly Varner HPV Genotype 18,45 Positive Abnormal Negative [facility] Comment on above: Result Comment: Perf ormed at: =G Performed By: #### [id number] #### [facility] [address] [address] [address] Lilly Varner Methodology: Comment Normal [facility] Comment on above: Result Comment: This liquid based ThinPrep(R) pap test was screened with the use of an image guided system. Performed at: WB Performed By: #### [id number] #### [facility] [address] [place] [address] Dr. Lilly Varner Note: Comment Normal [facility] Comment on above: Result Comment: The Pap smear is a screening test designed to aid in the detection of premalignant and malignant conditions of the uterine cervix. It is not a diagnostic procedure and should not be used as the sole means of detecting cervical cancer. Both false-positive and false-negative reports do occur. . Performed at: WB Performed By: #### [id number] #### [facility] [address] [address] [address] Lilly Varner Performed by: Comment Normal [facility] Comment on above: Result Comment: Nickie Ford, Cement Paver (ASCP) Performed at: WB Performed By: #### [id number] #### [facility] [address] [address] [address] Lilly Varner QC reviewed by: Comment Normal [facility] Comment on above: Result Comment: Dequan Plaza, Supervisory Cement Paver (ASCP) Performed at: WB Performed By: #### [id number] #### [facility] [address] [place] [address] Dr. Lilly Varner Specimen adequacy: Comment Normal [facility] Comment on above: Result Comment: Sati sfactory for evaluation. Endocervical and/or squamous metaplastic cells (endocervical component) are present. Performed at: WB Performed By: #### [id number] #### [facility] [address] [place] [address] Dr. Lilly Varner XR DEXA BONE DENSITYon [...] by: KRISTA ROBERTSON Date: 2022-04-14 17:25 Normal [facility] VIT D 25-OH LABCORPon 2021 Vitamin D, 25-Hydroxy 19.5 ng/mL Critically low 30.0-100.0 [facility] Comment on above: Result Comment: [place] min D deficiency has been defined by the [place] of [employer] and an Endocrine Society practice guideline as a level of serum 25-OH vitamin D less than 20 ng/mL (1,2). The Endocrine Society went on to further define vitamin D insufficiency as a level between 21 and 29 ng/mL (2). 1. IOM ([place] of [employer]). 2010. Dietary reference intakes for calcium and D. [place]: The National Academies Press. 2. Lorena MF, Art [place], Eleazar SPENCE, et al. Evaluation, treatment, and prevention of vitamin D deficiency: an Endocrine Society clinical practice guideline. JCEM. 2010; 96(7):1911-30. Performed By: #### V ITADLC #### [facility] [address] [place] [address] Dr. Lilly Varner CBC AUTO DIFFon 2022 BASO # 0.0 103/ul Normal 0.0-0.1 [facility] Comment on above: Performed By: #### C BC #### [facility] [address] [place] [address] Dr. Lilly Varner Basophils/100 WBC (Bld) 0.5 % Normal 0.2-2.0 [facility] Comment on above: Performed By: #### C BC #### [facility] [address] [place] [address] Dr. Lilly Varner EO # 0.5 103/ul Normal 0.0-0.7 [facility] Comment on above: Performed By: #### C BC #### [facility] [address] [place] [address] Dr. Lilly Varner Eosinophils/100 WBC (Bld) 6.4 % Normal 0.9-7.0 [facility] Comment on above: Performed By: #### C BC #### [facility] [address] [place] [address] Dr. Lilly Varner Erythrocyte distribution width (RBC) [Ratio] 13.0 % Normal 11.0-15.0 [facility] Comment on above: Performed By: #### C BC #### [facility] [address] [place] [address] Dr. Lilly Varner Hematocrit (Bld) [Volume fraction] 40.1 % Normal 36.0-48.0 [facility] Comment on above: Performed By: #### C BC #### [facility] [address] [place] [address] Dr. Lilly Varner Hemoglobin (Bld) [Mass/Vol] 12.7 g/dL Normal 12.0-16.0 [facility] Comment on above: Performed By: #### C BC #### [facility] [address] [place] [address] Dr. Lilly Varner IG # 0.04 10e3/ul Critically high 0.00-0.03 [facility] Comment on above: Performed By: #### C BC #### [facility] [address] [place] [address] Dr. Lilly Varner IG % 0.5 % Normal 0.0-0.5 [facility] Comment on above: Performed By: #### C BC #### [facility] [address] [place] [address] Dr. Lilly Varner LYMPH # 2.0 103/ul Normal 1.2-3.8 [facility] Comment on above: Performed By: #### C BC #### [facility] [address] [place] [address] Dr. Lilly Varner Lymphocytes/100 WBC (Bld) 24.3 % Normal 20.5-60.0 [facility] Comment on above: Performed By: #### C BC #### [facility] [address] [place] [address] Dr. Lilly Varner MANUAL DIFF REQ NO Normal [facility] Comment on above: Performed By: #### C BC #### [facility] [address] [place] [address] Dr. Lilly Varner MCH (RBC) [Entitic mass] 30.3 pg Normal 26.7-34.0 [facility] Comment on above: Performed By: #### C BC #### [facility] [address] [place] [address] Dr. Lilly Varner MCHC (RBC) [Mass/Vol] 31.7 g/dL Normal 29.9-35.2 [facility] Comment on above: Performed By: #### C BC #### [facility] [address] [address] [address] Lilly Varner MCV (RBC) [Entitic vol] 95.7 fL Normal 81.0-99.0 [facility] Comment on above: Performed By: #### C BC #### [facility] [address] [address] [address] Lilly Varner MONO # 0.5 103/ul Normal 0.3-0.8 [facility] Comment on above: Performed By: #### C BC #### [facility] [address] [address] [address] Lilly Varner Monocytes/100 WBC (Bld) 5.7 % Normal 1.7-12.0 [facility] Comment on above: Performed By: #### C BC #### [facility] [address] [place] [address] Dr. Lilly Varner NEUT # 5.1 103/ul Normal 1.4-6.5 [facility] Comment on above: Performed By: #### C BC #### [facility] [address] [place] [address] Dr. Lilly Varner Neutrophils/100 WBC (Bld) 62.6 % Normal 43.0-75.0 [facility] Comment on above: Performed By: #### C BC #### [facility] [address] [address] [address] Lilly Varner Platelet mean volume (Bld) [Entitic vol] 8.6 fL Critically low 9.5-13.5 [facility] Comment on above: Performed By: #### C BC #### [facility] [address] [address] [address] Lilly Varner PLT 279 103/ul Normal 150-450 [facility] Comment on above: Performed By: #### C BC #### [facility] [address] [address] [address] Lilly Varner RBC 4.19 106/ul Critically low 4.20-5.40 [facility] Comment on above: Performed By: #### C BC #### [facility] [address] [address] [address] Lilly Varner WBC 8.2 103/ul Normal 4.0-11.0 [facility] Comment on above: Performed By: #### C BC #### [facility] [address] [address] [address] Lilly Varner GLYCOHEMOGLOBIN A1Con 2021 ADA RECOMMENDATION SEE BELOW Normal [facility] Comment on above: Result Comment: ADA RECOMMENDED LIMIT 4.0 - 6.0 ADA THERAPEUTIC TARGET < 7.0 ACTION SUGGESTED > 7.0 Performed By: #### A 1C ####[facility] [id number] [address] Lilly Varner Glucose [Mass/Vol] 128 mg/dL Normal [facility] Comment on above: Performed By: #### A 1C ####[facility] [id number] [address]Dr. Lilly Varner HbA1c (Bld) [Mass fraction] 6.1 % Normal 4.5-6.2 [facility] Comment on above: Performed By: #### A 1C ####[facility] [id number] [address]Dr. Lilly Varner LIPID PROFILEon 2022 CHOL-HDL RATIO NORM SEE BELOW Normal [facility] Comment on above: Result Comment: 3.3 - 4.4 LOW RISK 4.4 - 7.1 AVERAGE RISK 7.1 - 11.0 MODERATE RISK >11.0 HIGH RISK Performed By: #### C MP, TSH, LIPID #### [facility] [address] [address] [address] Lilly Varner Cholesterol [Mass/Vol] 291 mg/dL Critically high <=200 [facility] Comment on above: Performed By: #### C MP, TSH, LIPID #### [facility] [address] [address] [address] Lilly Varner Cholesterol in HDL [Mass/Vol] 60 mg/dL Normal 40-60 [facility] Comment on above: Performed By: #### C MP, TSH, LIPID #### [facility] [address] [address] [address] Lilly Varner Cholesterol in LDL [Mass/Vol] 209.6 mg/dL Normal [facility] Comment on above: Performed By: #### C MP, TSH, LIPID #### [facility] [address] [address] [address] Lilly Varner Cholesterol.total/Cholest caro in HDL [Mass ratio] 4.9 {ratio} Normal [facility] Comment on above: Performed By: #### C MP, TSH, LIPID #### [facility] [address] [address] [address] Lilly Varner HDL NORMAL > or = 60 mg/dl - LO W CARDIOVASCULAR RISK <40 mg/dl - HIGH CARDIOVASCULAR RISK Normal [facility] Comment on above: Performed By: #### C MP, TSH, LIPID #### [facility] [address] [address] [address] Lilly Varner LDL CALC NORMAL SEE BELOW Normal [facility] Comment on above: Result Comment: <100 mg/dl OPTIMAL 100 - 129 mg/dl NEAR OR ABOVE OPTIMAL 130 - 159 mg/dl BORDERLINE HIGH 160 - 189 mg/dl HIGH >190 mg/dl VERY HIGH Performed By: #### C MP, TSH, LIPID #### [facility] [address] [address] [address] Lilly Varner Triglyceride [Mass/Vol] 107 mg/dL Normal <=150 [facility] Comment on above: Performed By: #### C MP, TSH, LIPID #### [facility] [address] [address] [address] Lilly Varner VLDL CALC 21.4 mg/dL Normal [facility] Comment on above: Performed By: #### C MP, TSH, LIPID #### [facility] [address] [address] [address] Lilly Varner PROF 14(COMP METB)on 022 Albumin [Mass/Vol] 3.9 g/dL Normal 3.4-5.0 [facility] Comment on above: Performed By: #### C MP, TSH, LIPID #### [facility] [address] [address] [address] Lilly Varner Albumin/Globulin [Mass ratio] 1.1 {ratio} Normal [facility] Comment on above: Performed By: #### C MP, TSH, LIPID #### [facility] [address] [address] [address] Lilly Varner ALP [Catalytic activity/Vol] 103 U/L Normal 46-116 [facility] Comment on above: Performed By: #### C MP, TSH, LIPID #### [facility] [address] [address] [address] Lilly Varner ALT [Catalytic activity/Vol] 44 U/L Normal 14-59 [facility] Comment on above: Performed By: #### C MP, TSH, LIPID #### [facility] [address] [address] [address] Lilly Varner Anion gap [Moles/Vol] 12.7 mmol/L Normal [facility] Comment on above: Performed By: #### C MP, TSH, LIPID #### [facility] [address] [address] [address] Lilly Varner AST [Catalytic activity/Vol] 24 U/L Normal 15-37 [facility] Comment on above: Performed By: #### C MP, TSH, LIPID #### [facility] [address] [address] [address] Lilly Varner Bilirubin [Mass/Vol] 0.4 mg/dL Normal 0.2-1.0 [facility] Comment on above: Performed By: #### C MP, TSH, LIPID #### [facility] [address] [address] [address] Lilly Varner Calcium [Mass/Vol] 9.1 mg/dL Normal 8.5-10.1 [facility] Comment on above: Performed By: #### C MP, TSH, LIPID #### [facility] [address] [address] [address] Lilly Varner Chloride [Moles/Vol] 104 mmol/L Normal 98-107 [facility] Comment on above: Performed By: #### C MP, TSH, LIPID #### [facility] [address] [address] [address] Lilly Varner CO2 [Moles/Vol] 28.4 mmol/L Normal 21.0-32.0 [facility] Comment on above: Performed By: #### C MP, TSH, LIPID #### [facility] [address] [address] [address] Lilly Vanrer Creatinine [Mass/Vol] 0.75 mg/dL Normal 0.55-1.02 [facility] Comment on above: Performed By: #### C MP, TSH, LIPID #### [facility] [address] [address] [address] Lilly Varner EGFR-AF SWISS >60 Normal >=60 [facility] Comment on above: Performed By: #### C MP, TSH, LIPID #### [facility] [address] [address] [address] Lilly Varner EGFR-NON AF SWISS >60 Normal >=60 [facility] Comment on above: Performed By: #### C MP, TSH, LIPID #### [facility] [address] [address] [address] Lilly Varner Globulin (S) [Mass/Vol] 3.7 g/dL Normal [facility] Comment on above: Performed By: #### C MP, TSH, LIPID #### [facility] [address] [address] [address] Lilly Varner Glucose [Mass/Vol] 98 mg/dL Normal 74-106 [facility] Comment on above: Performed By: #### C MP, TSH, LIPID #### [facility] [address] [address] [address] Lilly Varner Potassium [Moles/Vol] 4.1 mmol/L Normal 3.5-5.1 [facility] Comment on above: Performed By: #### C MP, TSH, LIPID #### [facility] [address] [address] [address] Lilly Varner Protein [Mass/Vol] 7.6 g/dL Normal 6.4-8.2 [facility] Comment on above: Performed By: #### C MP, TSH, LIPID #### [facility] [address] [address] [address] Lilly Varner Sodium [Moles/Vol] 141 mmol/L Normal 136-[address] [facility] Comment on above: Performed By: #### C MP, TSH, LIPID #### [facility] [address] [address] [address] Lilly Varner Urea nitrogen [Mass/Vol] 16.0 mg/dL Normal 7.0-18.0 [facility] Comment on above: Performed By: #### C MP, TSH, LIPID #### [facility] [address] [address] [address] Lilly Varner Urea nitrogen/Creatinine [Mass ratio] 21.3 mg/mg Normal [facility] Comment on above: Performed By: #### C MP, TSH, LIPID #### [facility] [address] [address] [address] Lilly Varner TSHon 2022 TSH 1.280 uIU/mL Normal 0.358-3.74 0 [facility] Comment on above: Performed By: #### C MP, TSH, LIPID #### [facility] [address] [place] [address] Dr. Lilly Varner [facility] SARS-CoV-2 (COVID-19) RNA SHILPI+probe Ql (Unsp spec) Detected Critically abnormal NOT DETECTED [facility] Comment on above: Result Comment: This test is not yet approved or cleared by the [place] FDA. When there are no FDA-approved or cleared tests available, and other criteria are met, FDA can make tests available under an emergency access mechanism called an Emergency Use Authorization (EUA). The EUA for this test is supported by the Stress Analyst of Health and Human Service's declaration that [...] #### C [facility] #### [facility] [address] [address] [address] 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 SEE COMMENT. -- Diagnosis Comment -- By report HER2 IHC is negative (1+). Krista Coto M.D. Electronically Signed Out magda02/19/2022 Clinical Information Operative Findings: RIGHT BREAST 6:00 MASS AND CALCIFICATIONS Operation Performed: US GUIDED CORE BIOPSY OF BREAST Source of Specimen A: OUTSIDE SLIDES Gross Description Received from [facility] Department of Pathology are 6 slides labelled, [id number], TENISHA HANCOCK, for consultation at the request [...] CONSULTATION Patient Name: TENISHA HANCOCK [facility] Rec: [id number] Path Number: [id number] [email or web address] [facility] ANATOMIC PATHOLOGY [address] [place] [phone] Normal [facility] Comment on above: Performed By: #### P PPVOC #### [address] [id number] [employer] Manager: Rico Melo MD [facility] BREAST SPECIMENon 2021 [facility] BREAST SPECIMEN EXAMINATION: SPECIMEN RADIOGRAPH 02/17/2022 [...] Gage Eng MD 02/17/22 Final result Normal [facility] Specimen radiograph demonstrates inclusion of the targeted microcalcifications and biopsy clip Findings discussed with Dr. Murguia in person at 12:55pm on 02/17/2022 [facility] RIS CONSOLIDATED EXAMINATION: SPECIMEN RADIOGRAPH 02/17/2022 TECHNIQUE: [...] coordinates are A3. Wire tip is intact. [facility] RIS CONSOLIDATED CORKY WELCH [employer] Work Phone: Radiology Study observation (narrative) CORKY RUIZ [employer] Work Phone: WILLIE NEEDLE BREAST LOCALIZATI ON [...] Eng MD Signed by: Gage Eng MD 8/2/22 Final result Normal [facility] NEEDLE LOCALIZATION RIGJun Ton 02-17-2022 Mammographic wire localization of biopsy clip and associated microcalcifications, as described. No residual mammographic mass. [facility] CONSOLIDATED EXAMINATION: MAMMOGRAPHIC GUIDED NEEDLE LOCALIZATION OF [...] the wire. No significant residual mammographic mass. [facility] CONSOL[facility] Radiology Study observation (narrative) [facility]: [facility] NEEDLE LOCALIZATION [facility] TOrdered By: Gage Eng on 02-17-2022 CORKY WELCH [facility] [employer] Work Phone: NM LYMPHOSCINTIGRAMon 2021 NM LYMPHOSCINTIGRAM [...] Gage Eng MD 02/17/22 Final result Normal [facility] Prompt identificatio n of sentinel lymph node in the right axilla. [facility] CONSOLIDATED EXAMINATION: LYMPHOSCINTIGRAPHY (INJECTION AND IMAGES) 02/17/2022 [...] for Exam: Right Breast CA [facility] CONSOLIDATED Gage Eng MD - 02/17/2022 EXAMINATION: [...] sentinel lymph node in the right axilla. [employer] Work Phone: Radiology Study observation (narrative) [facility] [employer] [employer] Phone: NM LYMPHOSCINTIGRAMOrdered B y: Gage Eng on 02-17-2022 CORKY WELCH [employer] Work Phone: Surgical Pathologyon 022 Surgical Pathology (NOTE) -- Diagnosis -- A. RIGHT AXILLARY SENTINEL LYMPH NODES, EXCISIONAL BIOPSIES: - NEGATIVE FOR MALIGNANCY (0/5). B. 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 Cassette summary: 1-26 component 1 senior human resources representative submitted from lateral to medial with [...] DX: Negative for malignancy on frozen sections. ([facility], 02/17/22) Microscopic Description A, B. [...] sentinel lymp (more content not included)... Normal [facility] Comment on above: Performed By: #### P PPVS #### [employer] [address] [place] [address] [employer] Manager: Rico Melo MD MRI BREAST BILATERAL [...] right mammogram of 22 April 2021 from [facility]. Other right mammogram of June 2021 at an outside facility is not available. HISTORY: ORDERING SYSTEM PROVIDED HISTORY: Malignant neoplasm of right female breast, unspecified estrogen receptor status, unspecified site of breast (HCC) TECHNOLOGIST PROVIDED HISTORY: STAT Creatinine as needed:->Yes Last MRI done at [facility] in [place]. Result scanned in Media Reason for Exam: Last MRI done at [facility] in [place]. Result scanned in Media , Malign Additional signs and symptoms: Last MRI done at [facility] in [place]. Result scanned in Media , Malignant neoplasm [...] Heber Fofana MD 02/04/22 Final result Normal [facility] 1. Area of 9 x 6 [...] OVERALL ASSESSMENT - KNOWN BIOPSY PROVEN MALIGNANCY. [facility] RIS CONSOLIDATED EXAMINATION: MRI OF [...] right mammogram of 22 April 2021 from [facility]. Other right mammogram of June 2021 at an outside facility is not available. HISTORY: ORDERING SYSTEM PROVIDED HISTORY: Malignant neoplasm of right female breast, unspecified estrogen receptor status, unspecified site of breast (HCC) TECHNOLOGIST PROVIDED HISTORY: STAT Creatinine as needed:->Yes Last MRI done at [facility] in [place]. Result scanned in Media Reason for Exam: Last MRI done at [facility] in [place]. Result scanned in Media , Malign Additional signs and symptoms: Last MRI done at [facility] in [place]. Result scanned in Media , Malignant neoplasm [...] abnormal signal intensity or contrast enhancement noted. [facility] Radiology Study observation (narrative) CORKY RUIZ [employer] Phone: MRI BREAST BILATERAL W WO CO NTRASTOrdered By: Heber Fofana on 02-04-2022 Interpretation and review of laboratory results Abnormal CORKY Norton [employer] Phone: CORKY [employer] Phone: Aamir 01-29-2022 SELMA Telephone (SKYLER) TENISHA HANCOCK ([id number]) 1975 F DEF Date Time Provider Department [...] Encounter Status:Closed by NAT RICKETTS on 02/02/22 [facility] CNOVon 01-15-2022 CNOV Office Visit (PLASMN ) TENISHA HANCOCK ([id number]) 1975 F DEF Date Time Provider Department [...] breast in May 2021. Dr. Reza in [place] is her breast surgeon. 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 Tenihsa Hancock was given supplemental information on breast [...] Past Histories independently gathered by the clinical administrative support specialist and the remaining scribed note accurately describes my personal service to the patient. patient's condition reviewed and examined ? plan and options of management, complexity, risk benefit limitation potential complication, success /failure of management, expected result and recovery discussed ? I spent 30 minutes in the visit, with more than 50% of the total acje-si-wvep time of the visit in counseling / [...] Problem Li (more content not included)... Normal [facility] Aamir 01-15-2022 CELINEN Telephone ([employer]) TENISHA HANCOCK ([id number]) 1975 F DEF Date Time Provider Department 01/15/22 XIOMARA LEA During your visit today, we recorded the following information about you: Nat Ricketst, RN 01/15/2022 4:43 PM Signed Patient was [...] been, she has had studies at both [facility] and [place]. I was able to have patient get a release and will also fax to [employer] what she has thus far. Our office will continue to work on getting all outside records to be submitted for a second review. Alvin Alexis 01/16/2022 1:25 PM Signed Pt calling regarding faxed info she had sent to [employer]. Pt asking if fax was received by office or if she needs to do anything else. Pt requesting call back to discuss. Lucinda Alvarez Ma 01/16/2022 3:53 PM Signed Noted I will check when in [place] on Wednesday. Marybel Shirley 01/22/2022 9:54 AM Signed Patient is calling [...] 1:20 PM Signed Imaging reports rec'd reviewed: [place] 04/2021 - R screening abnl 2.4 cm [...] I see a teaching note 06/23/21 at [facility] but limited documentation since then as [...] call with arrival time for that 01/23 [facility] 01/22/2022 3:14 PM Signed Patient called back, she left detailed message on voicemail to return her call at [phone]. Thank you. Nat Ricketts RN 01/22/2022 3:49 [...] for 60 min new cancer consult at [facility] Patient Assistant Designer 01/23/2022 9:57 AM Signed Pt scheduled Lucinda Alvarez Ma 01/23/2022 10:40 AM Signed Still have not received all records, I spoke to patient today and asked that she help expedite getting her pathology reports and slides from [place] along with all her images and reports, we also need all the workup done at [facility] and [place]. I provided [place] fax number and patient advised she will help me gather all her records. Lucinda Alvarez Ma 01/27/2022 10:00 AM Signed We still have not received path slides as of today. I called and LMOM for Jillian whom is the director of [facility] lab department to get an [...] 01/27/2022 10:34 AM Signed Jillian called from [place] she advised she will work on getting all slides sent to [facility]. Lucinda Alvarez Ma 01/28/2022 9:41 AM Signed Addended by: LUCINDA RED MA on: 01/28/2022 09:41 AM Modules accepted: Orders Allergies As of Date: 01/15/2022 (No Known Allergies) Date Reviewed: 01/15/2022 Reviewed by: Diamond Gibson - Fully Assessed Reason for Visit: Appointment [[id number]] Order(s):OUTSIDE SURG PATH SLIDE REVIEW [[id number]] Order #: [id number] Prescriptions as of 01/28/2022 - citalopram (CELEXA) 20 mg tablet Take 20 mg (more content not included)... Normal [facility] Basophils Auto (Bld) [#/Vol] Ordered By: Kallie Chang on 12-24-2021 Basophils (Bld) [#/Vol] 0.0 10*3/uL 0.0-0.2 [facility] Basophils/100 WBC Auto (Bld) Ordered By: Kallie Chang on 12-24-2021 Basophils/100 WBC (Bld) 0.3 % . F [facility] Blood hemoglobin measurement (mass/volume)Ordered By: Kallie Chang on 12-24-2021 Hemoglobin (Bld) [Mass/Vol] 10.3 g/dL 11.8-15.4 [facility] Blood leukocytes automated c ount (number/volume)Ordered By: Kallie Chang on 12-24-2021 WBC (Bld) [#/Vol] 5.8 10*3/uL 4.5-11.0 [facility] Body fluid albumin measureme nt (mass/volume)Ordered By: Kallie Chang on 12-24-2021 Albumin (Body fld) [Mass/Vol] 3.8 g/dL 3.2-5.5 [facility] Creatinine and Glomerular fi ltration rate.predicted panel (S/P/Bld)Ordered By: Kallie Chang on 12-24-2021 Creatinine [Mass/Vol] 0.66 mg/dL 0.44-1.03 [facility] Eosinophils Auto (Bld) [#/Vo l]Ordered By: Kallie Chang on 12-24-2021 Eosinophils (Bld) [#/Vol] 0.1 10*3/uL 0.0-0.45 [facility] Eosinophils/100 WBC Auto (Bl d)Ordered By: Kallie Chang on 12-24-2021 Eosinophils/100 WBC (Bld) 0.9 % . [facility] Erythrocyte distribution wid th Auto (RBC) [Ratio]Ordered By: Kallie Chang on 12-24-2021 Erythrocyte distribution width (RBC) [Ratio] 13.9 % 11.9-15.3 [facility] Estimated glomerular filtrat ion rate (GFR) non- AmericanOrdered By: Kallie Chang on 12-24-2021 GFR/1.73 sq M.predicted among non-blacks MDRD (S/P/Bld) [Vol rate/Area] > 60 mL/Min [facility] Globulin Calc (S) [Mass/Vol] Ordered By: Kallie Chang on 12-24-2021 Globulin (S) [Mass/Vol] 3.0 g/dL [facility] Hematocrit Auto (Bld) [Volum e fraction]Ordered By: Kallie Chang on 12-24-2021 Hematocrit (Bld) [Volume fraction] 30.4 % 34.0-46.4 [facility] Laboratory - Hematology and Cell countsOrdered By: Kallie Chang on 12-24-2021 Nucleated RBC/100 WBC (Bld) [Ratio] 0.0 % 0-0.5 [facility] Lymphocytes Auto (Bld) [#/Vo l]Ordered By: Kallie Chang on 12-24-2021 Lymphocytes (Bld) [#/Vol] 1.2 10*3/uL 1.00-4.8 [facility] Lymphocytes/100 WBC Auto (Bl d)Ordered By: Kallie Chang on 12-24-2021 Lymphocytes/100 WBC (Bld) 21.5 % . [facility] MCH Auto (RBC) [Entitic mass ]Ordered By: Kallie Chang on 12-24-2021 MCH (RBC) [Entitic mass] 34.6 pg 24.7-34.3 [facility] MCHC Auto (RBC) [Mass/Vol]Or dered By: Kallie Chang on 12-24-2021 MCHC (RBC) [Mass/Vol] 33.9 g/dL 32.0-35.0 [facility] MCV Auto (RBC) [Entitic vol] Ordered By: Kallie Chang on 12-24-2021 MCV (RBC) [Entitic vol] 102.2 fL 80-100 F [facility] Macrocytes detectionOrdered By: Kallie Chang on 12-24-2021 Macrocytes Ql (Bld) Slight [facility] Monocytes Auto (Bld) [#/Vol] Ordered By: Kallie Chang on 12-24-2021 Monocytes (Bld) [#/Vol] 0.3 10*3/uL 0.0-0.8 [facility] Monocytes/100 WBC Auto (Bld) Ordered By: Kallie Chang on 12-24-2021 Monocytes/100 WBC (Bld) 5.5 % . F [facility] Neutrophils Auto (Bld) [#/Vo l]Ordered By: Kallie Chang on 12-24-2021 Neutrophils (Bld) [#/Vol] 4.1 10*3/uL 1.8-7.7 [facility] Neutrophils/100 WBC Auto (Bl d)Ordered By: Kallie Chang on 12-24-2021 Neutrophils/100 WBC (Bld) 71.8 % . [facility] No Panel InformationOrdered By: Kallie Chang on 12-24-2021 Estimated GFR () > 60 mL/Min [facility] Comment on above: GFR estimated refere nce range: According to KDOQI guidelines, <60 ml/min/1.73m2 is sufficient to diagnose a patient with chronic kidney disease. Pharmacy Creatinine Clearance (Chem 115.02 [facility] Platelet Estimate Normal Normal [facility] Platelet Morphology Comment Normal Normal [facility] Poikilocytosis Slight [facility] Ovalocyte detectionOrdered B y: Kallie Chang on 12-24-2021 Ovalocytes LM Ql (Bld) Slight [facility] Platelet mean volume Auto (B ld) [Entitic vol]Ordered By: Kallie Chang on 12-24-2021 Platelet mean volume (Bld) [Entitic vol] 8.0 fL 6.3-10.7 [facility] Platelets Auto (Bld) [#/Vol] Ordered By: Kallie Chang on 12-24-2021 Platelets (Bld) [#/Vol] 207 10*3/uL 150-450 [facility] Protein [Mass/volume] in Ser um or PlasmaOrdered By: Kallie Chang on 12-24-2021 Protein [Mass/Vol] 6.8 g/dL 6.1-7.9 [facility] RBC Auto (Bld) [#/Vol]Ordere d By: Kallie Chang on 12-24-2021 RBC (Bld) [#/Vol] 2.98 10*6/uL 3.60-5.00 [facility] RBC morphologyOrdered By: Precious Chang on 12-24-2021 RBC morphology finding Nom (Bld) N/A [facility] Serum or plasma alanine napoles otransferase measurement without P-5'-P (enzymatic activiOrdered By: Kallie Chang on 12-24-2021 ALT No additional P-5'-P [Catalytic activity/Vol] 20 U/L 10-60 [facility] Serum or plasma albumin/glob ulin mass ratioOrdered By: Kallie Chang on 12-24-2021 Albumin/Globulin [Mass ratio] 1.3 {ratio} [facility] Serum or plasma alkaline zo sphatase measurement (enzymatic activity/volume)Ordered By: Kallie Chang on 12-24-2021 ALP [Catalytic activity/Vol] 112 U/L 32-92 [facility] Serum or plasma aspartate am inotransferase measurement (enzymatic activity/volume)Ordered By: Kallie Chang on 12-24-2021 AST [Catalytic activity/Vol] 17 U/L 10-42 [facility] Serum or plasma calcium daiana urement (mass/volume)Ordered By: Kallie Chang on 12-24-2021 Calcium [Mass/Vol] 9.6 mg/dL 8.2-10.2 [facility] Serum or plasma chloride lizett surement (moles/volume)Ordered By: Kallie Chang on 12-24-2021 Chloride [Moles/Vol] 98 mmol/L 95-114 [facility] Serum or plasma glucose daiana urement (mass/volume)Ordered By: Kallie Chang on 12-24-2021 Glucose [Mass/Vol] 119 mg/dL 70-100 [facility] Comment on above: ADA recommended [...] 12-24-2021 Potassium [Moles/Vol] 4.0 mmol/L 3.5-5.1 [facility] Serum or plasma sodium measu rement (moles/volume)Ordered By: Kallie Chang on 12-24-2021 Sodium [Moles/Vol] 134 mmol/L 136-146 [facility] Serum or plasma total biliru bin measurement (mass/volume)Ordered By: Kallie Chang on 12-24-2021 Bilirubin [Mass/Vol] 0.5 mg/dL 0.3-1.2 [facility] Serum or plasma total carbon dioxide measurement (moles/volume)Ordered By: Kallie Chang on 12-24-2021 CO2 [Moles/Vol] 23.2 mmol/L 22.0-30.0 [facility] Serum or plasma urea nitroge n measurement (mass/volume)Ordered By: Kallie Chang on 12-24-2021 Urea nitrogen [Mass/Vol] 7 mg/dL 9-23 [facility] CNPNon 12-19-2021 SELMA Telephone (DPSadia) TENISHA HANCOCK ([id number]) 1975 F Date Time Provider Department 12/19/21 [...] Encounter Status:Closed by ALFREDO ORTEGA on 12/19/21 [facility] No Panel InformationOrdered By: Kallie Chang on 12-16-2021 Adrenocorticotropic Hormone 31.0 pg/mL 7.2-63.3 [facility] Comment on above: ACTH reference inter ervin for samples collected between 7 and 10 AM. Performed at: [facility] [employer] [id number] [employer] Manager: Red Sena PhD, Phone: [phone] ACTH reference inter ervin for samples collected between 7 and10 AM.Performed at: [facility] [employer] [id number] Director: Red Sena PhD, Phone: [phone] Random cortisol measurementO rdered By: Kallie Chang on 12-16-2021 Cortisol [Mass/Vol] 7.2 ug/dL [facility] Comment on above: Reference range: AM 6 - 24 ug/dl PM <10 ug/dl Reference range: AM 6 - 24 ug/dl PM <10 ug/dl TSH DL <= 0.005 mIU/L QnOrde red By: Kallie hCang on 12-16-2021 TSH Qn 0.08 m[IU]/L 0.45-5.33 [facility] Thyroxine (T4) free [Mass/vo lume] in Serum or PlasmaOrdered By: Kallie Chang on 12-16-2021 Free T4 [Mass/Vol] 0.74 ng/dL 0.61-1.12 [facility] No Panel InformationOrdered By: Kallie Chang on 12-02-2021 Dohle Bodies Slight [facility] Teardrop cell detectionOrder ed By: Kallie Chang on 12-02-2021 Dacrocytes LM Ql (Bld) Slight [facility] Toxic leukocyte granulation detectionOrdered By: Kallie Chang on 12-02-2021 Toxic granules LM Ql (Bld) Slight [facility] Basophils/100 WBC Auto (Bld) Ordered By: Kallie Chang on 11-04-2021 Basophils/100 WBC (Bld) 1 % 0-2 F [facility] Blood anisocytosis detection Ordered By: Kallie Chang on 11-04-2021 Anisocytosis Ql (Bld) Moderate [facility] Blood polychromasia detectio n by light microscopyOrdered By: Kallie Chang on 11-04-2021 Polychromasia LM Ql (Bld) [facility] Erythrocyte basophilic stipp ling detectionOrdered By: Kallie Chang on 11-04-2021 Basophilic stippling LM Ql (Bld) Rare [facility] Laboratory - Hematology and Cell countsOrdered By: Kallie Chang on 11-04-2021 Band form neutrophils/100 WBC (Bld) 1 % 0-5 [facility] Lymphocytes/100 WBC Auto (Bl d)Ordered By: Kallie Chang on 11-04-2021 Lymphocytes/100 WBC (Bld) 25 % 18-42 [facility] Monocytes/100 WBC Manual cnt (Bld)Ordered By: Kallie Chang on 11-04-2021 Monocytes/100 WBC (Bld) 6 % 2-11 F [facility] Myelocytes/100 WBC Manual cn t (Bld)Ordered By: Kallie Chang on 11-04-2021 Myelocytes/100 WBC (Bld) 3 % 0-0 [facility] No Panel InformationOrdered By: Kallie Chang on 11-04-2021 Rouleau Slight [facility] Segmented neutrophils/100 WB C Manual cnt (Bld)Ordered By: Kallie Chang on 11-04-2021 Segmented neutrophils/100 WBC (Bld) 64 % 50-70 [facility] Otheron 06-06-1998 CONVERTED ELECTRONIC SIGNATURE PATI CARTAGENA, SUPERVISORY MOLD CAPPER HELPER (Electronic signature on file) Final Signed Out: 06/06/1998 15:39 [facility] CONVERTED FINAL DIAGNOSIS SPECIMEN ADEQU ACY SATISFACTORY FOR EVALUATION GENERAL CATEGORIZATION BENIGN CELLULAR CHANGES DESCRIPTIVE DIAGNOSIS FUNGAL ORGANISMS MORPHOLOGICALLY CONSISTENT WITH JUAN CARLOS SPECIES. INFLAMMATORY CELL CHANGES. HORMONAL EVALUATION HORMONAL PATTERN COMPATIBLE WITH AGE AND HISTORY [facility] CONVERTED ORDERING PROVIDER Ordering Provider: JAMARI HOYT [facility] CONVERTED PAP DISCLAIMER The Pap test se rves as a screening tool for early detection of cervical cancer. The Pap test does not represent a final diagnostic test for cervical cancer. Furthermore, the Pap test was not designed to screen for other malignancies (endometrial, ovarian cancer, etc....). False negatives and false positives have occurred. If clinically indicated, further patient evaluation is recommended. [facility] Vital Signs Date Time Vital Sign Value Performing Clinician Faci lity 10-25-2024 14:37-0400 Body mass index (BMI) [Ratio] 29.72 kg/m2 Chidi Sergey DO Work Phone: [facility] 10-25-2024 14:37-0400 Body weight 76.09 kg Chidi Sergey DO Work Phone: [facility] 10-25-2024 14:37-0400 Diastolic blood pressure 70 mm[Hg] Chidi Sergey DO Work Phone: [facility] 10-25-2024 14:37-0400 Systolic blood pressure 102 mm[Hg] Chidi Sergey DO Work Phone: [facility] 06-26-2024 14:29-0500 Body height 160 cm Demetra Sparrow SU[employer] Work Phone: [facility] 06-26-2024 14:29-0500 Body mass index (BMI) [Ratio] 28.61 kg/m2 Demetra Sparrow [employer] Work Phone: [facility] 06-26-2024 14:29-0500 Body temperature 96.8 [degF] Demetra Sparrow [employer] Work Phone: [facility] 06-26-2024 14:29-0500 Body weight 73.26 kg Demetra Sparrow SU[employer] Work Phone: [facility] 06-26-2024 14:29-0500 Diastolic blood pressure 68 mm[Hg] Demetra Sparrow [employer] Work Phone: [facility] 06-26-2024 14:29-0500 Heart rate 85 /min Demetra Sparrow [employer] Work Phone: [facility] 06-26-2024 14:29-0500 Respiratory rate 16 /min Demetra Sparrow [employer] Work Phone: [facility] 06-26-2024 14:29-0500 SaO2% (BldA) [Mass fraction] 98 % Demetra Sparrow [employer] Work Phone: [facility] 06-26-2024 14:29-0500 Systolic blood pressure 110 mm[Hg] Demetra Sparrow [employer] Work Phone: [facility] 06-01-2024 10:32-0500 Body height 160 cm Hi Nguyễn DPM Work Phone: [facility] 06-01-2024 10:32-0500 Body mass index (BMI) [Ratio] 28.52 kg/m2 Hi Nguyễn DPM Work Phone: [facility] 06-01-2024 10:32-0500 Body weight 73.03 kg Hi Nguyễn DPM Work Phone: [facility] 06-01-2024 10:32-0500 Diastolic blood pressure 79 mm[Hg] Hi Nguyễn DPM Work Phone: [facility] 06-01-2024 10:32-0500 Heart rate 83 /min Hi Nguyễn DPM Work Phone: [facility] [facility] 06-01-2024 10:32-0500 Systolic blood pressure 128 mm[Hg] Hi Nguyễn DPM Work Phone: [facility] 04-17-2024 15:36-0400 Body mass index (BMI) [Ratio] 28.34 kg/m2 Chidi Sergey DO Work Phone: [facility] 04-17-2024 15:36-0400 Body weight 72.58 kg Chidi Sergey DO Work Phone: [facility] 04-17-2024 15:36-0400 Diastolic blood pressure 70 mm[Hg] Chidi Sergey DO Work Phone: [facility] 04-17-2024 15:36-0400 Systolic blood pressure 114 mm[Hg] Chidi Sergey DO Work Phone: [facility] 11-03-2023 15:43-0400 Blood Pressure Location Ismael MCGOWANL [facility] [place] 11-03-2023 15:43-0400 Diastolic blood pressure 66 mm[Hg] Ismael MCGOWANL [facility] [place] 11-03-2023 15:43-0400 Heart rate 70 /min Ismael MCGOWANL [facility] [place] 11-03-2023 15:43-0400 Respiratory rate 16 /min Ismael NILL [facility] [place] 11-03-2023 15:43-0400 Systolic blood pressure 112 mm[Hg] Ismael NILL [facility] [place] 11-25-2022 14:42-0400 Body temperature 97.8 [degF] MD Eliel Hurd Work Phone: [facility] 11-25-2022 14:42-0400 Body weight 79.83 kg MD Eliel Hurd Work Phone: [facility] 11-25-2022 14:42-0400 Diastolic blood pressure 73 mm[Hg] MD Eliel Hurd Work Phone: [facility] 11-25-2022 14:42-0400 Heart rate 75 /min MD Eliel Hurd Work Phone: [facility] 11-25-2022 14:42-0400 Respiratory rate 16 /min MD Eliel Hurd Work Phone: [facility] 11-25-2022 14:42-0400 SaO2% (BldA) [Mass fraction] 97 % MD Eliel Hurd Work Phone: [facility] 11-25-2022 14:42-0400 Systolic blood pressure 109 mm[Hg] MD Eliel Hurd Work Phone: [facility] 09-18-2022 13:38-0500 Body temperature 98 [degF] MD Eliel Hurd Work Phone: [facility] 09-18-2022 13:38-0500 Body weight 80.4 kg MD Eliel Hurd Work Phone: [facility] 09-18-2022 13:38-0500 Diastolic blood pressure 78 mm[Hg] MD Eliel Hurd Work Phone: [facility] 09-18-2022 13:38-0500 Heart rate 77 /min MD Eliel Hurd Work Phone: [facility] 09-18-2022 13:38-0500 Respiratory rate 16 /min MD Eliel Hurd Work Phone: [facility] 09-18-2022 13:38-0500 SaO2% (BldA) [Mass fraction] 99 % MD Eliel Hurd Work Phone: [facility] 09-18-2022 13:38-0500 Systolic blood pressure 115 mm[Hg] MD Eliel Hurd Work Phone: [facility] 08-14-2022 14:08-0500 Body weight 79.6 kg MD Eliel Hurd Work Phone: [facility] 08-14-2022 14:08-0500 Diastolic blood pressure 68 mm[Hg] MD Eliel Hurd Work Phone: [facility] 08-14-2022 14:08-0500 Heart rate 72 /min MD Eliel Hurd Work Phone: [facility] 08-14-2022 14:08-0500 Respiratory rate 18 /min MD Eliel Hurd Work Phone: [facility] 08-14-2022 14:08-0500 SaO2% (BldA) [Mass fraction] 99 % MD Eliel Hurd Work Phone: [facility] 08-14-2022 14:08-0500 Systolic blood pressure 103 mm[Hg] MD Eliel Hurd Work Phone: [facility] 08-07-2022 13:06-0500 Body temperature 98 [degF] MD Eliel Hurd Work Phone: [facility] 08-06-2022 13:31-0500 Body temperature 97.8 [degF] MD Eliel Hurd Work Phone: [facility] 08-06-2022 13:31-0500 Body weight 76.1 kg MD Eliel Hurd Work Phone: [facility] 08-06-2022 13:31-0500 Diastolic blood pressure 78 mm[Hg] MD Eliel Hurd Work Phone: [facility] 08-06-2022 13:31-0500 Heart rate 60 /min MD Eliel Hurd Work Phone: [facility] 08-06-2022 13:31-0500 Respiratory rate 16 /min MD Eliel Hurd Work Phone: [facility] 08-06-2022 13:31-0500 SaO2% (BldA) [Mass fraction] 95 % MD Eliel Hurd Work Phone: [facility] 08-06-2022 13:31-0500 Systolic blood pressure 115 mm[Hg] MD Eliel Hurd Work Phone: [facility] 07-15-2022 13:06-0500 Body height 160.02 cm MD Eliel Hurd Work Phone: [facility] 07-15-2022 13:06-0500 Body temperature 97.5 [degF] MD Eliel Hurd Work Phone: [facility] 07-15-2022 13:06-0500 Body weight 75.3 kg MD Eliel Hurd Work Phone: [facility] 07-15-2022 13:06-0500 Diastolic blood pressure 61 mm[Hg] MD Eliel Hurd Work Phone: [facility] 07-15-2022 13:06-0500 Heart rate 80 /min MD Eliel Hurd Work Phone: [facility] 07-15-2022 13:06-0500 Respiratory rate 18 /min MD Eliel Hurd Work Phone: [facility] 07-15-2022 13:06-0500 SaO2% (BldA) [Mass fraction] 98 % MD Eliel Hurd Work Phone: [facility] 07-15-2022 13:06-0500 Systolic blood pressure 102 mm[Hg] MD Eliel Hurd Work Phone: [facility] 06-18-2022 10:07-0500 Body height 160.02 cm MD Eliel Hurd Work Phone: [facility] 06-18-2022 10:07-0500 Body temperature 98.4 [degF] MD Eliel Hurd Work Phone: [facility] 06-18-2022 10:07-0500 Body weight 78.9 kg MD Eliel Hurd Work Phone: [facility] 06-18-2022 10:07-0500 Diastolic blood pressure 80 mm[Hg] MD Eliel Hurd Work Phone: [facility] 06-18-2022 10:07-0500 Heart rate 84 /min MD Eliel Hurd Work Phone: [facility] 06-18-2022 10:07-0500 Respiratory rate 20 /min MD Eliel Hurd Work Phone: [facility] 06-18-2022 10:07-0500 SaO2% (BldA) [Mass fraction] 100 % MD Eliel Hurd Work Phone: [facility] 06-18-2022 10:07-0500 Systolic blood pressure 117 mm[Hg] MD Eliel Hurd Work Phone: [facility] 03-19-2022 10:00-0400 Body temperature 98.8 [degF] MD Eliel Hurd Work Phone: [facility] 03-19-2022 10:00-0400 Body weight 90.26 kg MD Eliel Hurd Work Phone: [facility] 03-19-2022 10:00-0400 Diastolic blood pressure 86 mm[Hg] MD Eliel Hurd Work Phone: [facility] 03-19-2022 10:00-0400 Heart rate 68 /min MD Eliel Hurd Work Phone: [facility] 03-19-2022 10:00-0400 Respiratory rate 18 /min MD Eliel Hurd Work Phone: [facility] 03-19-2022 10:00-0400 SaO2% (BldA) [Mass fraction] 98 % MD Eliel Hurd Work Phone: [facility] 03-19-2022 10:00-0400 Systolic blood pressure 125 mm[Hg] MD Eliel Hurd Work Phone: [facility] 02-17-2022 16:00-0400 Body temperature 97.5 [degF] Diana Cashen DO Work Phone: [facility] 02-17-2022 16:00-0400 Diastolic blood pressure 71 mm[Hg] Diana Cashen DO Work Phone: [facility] 02-17-2022 16:00-0400 Heart rate 101 /min Diana Cashen DO Work Phone: [facility] [employer] 02-17-2022 16:00-0400 Respiratory rate 23 /min Dianasadie Murguia DO Work Phone: [facility] [employer] 02-17-2022 16:00-0400 SaO2% (BldA) [Mass fraction] 95 % Dianasadie Murguia DO Work Phone: [facility] [employer] 02-17-2022 16:00-0400 Systolic blood pressure 134 mm[Hg] Diana Shantal DO Work Phone: [facility] [employer] 02-17-2022 07:21-0400 Body height 160 cm Dianasadie Murguia DO Work Phone: [facility] [employer] 02-17-2022 07:21-0400 Body mass index (BMI) [Ratio] 34.05 kg/m2 Dianasadie Murguia DO Work Phone: [facility] [employer] 02-17-2022 07:21-0400 Body weight 87.18 kg Dianasadie Murguia DO Work Phone: [facility] 01-15-2022 15:34-0400 Body height 160 cm Fahad Russell MD Work Phone: [facility] 01-15-2022 15:34-0400 Body temperature 98.1 [degF] Fahad Russell MD Work Phone: [facility] 01-15-2022 15:34-0400 Body weight 87.59 kg Fahad Russell MD Work Phone: [facility] 01-15-2022 15:34-0400 Diastolic blood pressure 86 mm[Hg] Fahad Russell MD Work Phone: [facility] 01-15-2022 15:34-0400 Heart rate 72 /min Fahad Russell MD Work Phone: [facility] 01-15-2022 15:34-0400 Systolic blood pressure 149 mm[Hg] Fahad Russell MD Work Phone: [facility] 09-15-2021 15:45-0500 Body height 160.02 cm Franco Stokes Other [employer] Other 09-15-2021 15:45-0500 Body mass index (BMI) [Ratio] 34.36 kg/m2 Franco Stokes Other [employer] Other 09-15-2021 15:45-0500 Body weight 88 kg Franco Stokes Other [employer] Other 07-08-2021 14:14-0500 Body height 160.02 cm MD Eliel Hurd Work Phone: [facility] Encounters Encounter Date Encounter Type Care Provider Facility Start: 10-25-2024 End: 10-25-2024 ambulatory CHIDI SERGEY Not Available Start: 10-25-2024 End: 10-25-2024 Office outpatient visit 15 minutes Chidi Sergey DO Work Phone: [facility] Comment on above: Counseling for estro gen replacement therapy; Hot flashes Start: 10-25-2024 End: 10-25-2024 Bamboo flowsheet Chidi Sergey DO Work Phone: [facility] Start: 10-25-2024 End: 10-25-2024 Bamboo flowsheet Chidi Sergey DO Work Phone: [facility] Start: 10-05-2024 End: 10-05-2024 Patient encounter procedure PHYSICIAN [facility] Work Phone: Start: 10-05-2024 End: 10-05-2024 ambulatory PHYSICIAN [facility] Work Phone: Start: 07-18-2024 End: 07-19-2024 Refill Demetra Sparrow [employer] Work Phone: [facility] Comment on above: Seasonal allergic rh initis, unspecified trigger Start: 06-26-2024 End: 06-26-2024 Office outpatient visit 15 minutes Demetra Sparrow [employer] Work Phone: [facility] Comment on above: Gastroesophageal ref lux disease, unspecified whether esophagitis present (Primary Dx); Other hyperlipidemia ([facility]); Class 1 obesity due to excess calories without serious comorbidity with body mass index (BMI) of 30.0 to 30.9 in adult; Moderate episode of recurrent major depressive disorder ([facility]); Seasonal allergic rhinitis, unspecified trigger; Anxiety and depression ([facility]) Start: 06-26-2024 End: 06-26-2024 ambulatory DEMETRA SPARROW Not Available Start: 06-26-2024 End: 06-26-2024 Bamboo flowsheet Demetra Sparrow [employer] Work Phone: [facility] Start: 06-26-2024 End: 06-26-2024 Bamboo flowsheet Demetra Sparrow [employer] Work Phone: [facility] Start: 06-01-2024 [...] Office outpatient visit 10 minutes Jacqueline Chavez [employer] Work Phone: [facility] Comment on above: Left wrist pain Start: 05-02-2024 End: 05-02-2024 ambulatory JACQUELINE CHAVEZ Not Available Start: 05-02-2024 End: 05-02-2024 Bamboo flowsheet Jacqueline Chavez [employer] Work Phone: [facility] Start: 05-02-2024 End: 05-02-2024 Bamboo flowsheet Jacqueline Chavez [employer] Work Phone: [facility] Start: 04-17-2024 [...] 03-22-2024 End: 03-22-2024 Orders Only Demetra Sparrow [employer] Work Phone: [facility] Comment on above: Encounter for wellne ss examination in adult (Primary Dx) Start: 03-22-2024 End: 03-22-2024 Patient encounter status Demetra Sparrow [employer] Work Phone: [facility] Work Phone: Start: 03-09-2024 End: 03-09-2024 ambulatory AWA MARADIAGA [facility] Start: 03-09-2024 End: 03-09-2024 ambulatory AWA MARADIAGA [facility] Start: 02-03-2024 End: 02-03-2024 ambulatory HI NGUYỄN Not Available Start: 01-18-2024 End: 01-18-2024 ambulatory HI NGUYỄN Not Available Start: 01-13-2024 End: 01-13-2024 ambulatory SHAIKH PATRIA Not Available Start: 01-10-2024 End: 01-10-2024 Patient encounter procedure MD Shaikh España Work Phone: [facility] [place] Work Phone: Start: 01-10-2024 End: 01-10-2024 ambulatory MD Shaikh España Work Phone: [facility] Work Phone: Start: 01-03-2024 End: 01-03-2024 ambulatory HI NGUYỄN Not Available Start: 12-14-2023 End: 12-14-2023 ambulatory SHAIKH PATRIA Not Available Start: 11-03-2023 End: 11-03-2023 ambulatory Ismael BERMAN Facility:[facility] [place] Start: 11-03-2023 End: 11-03-2023 Patient encounter procedure Ismael BERMAN General [facility] Start: 11-01-2023 End: 11-01-2023 ambulatory SHAIKH PATRIA Not Available Start: 10-28-2023 End: 10-28-2023 ambulatory CASTILLO GONSALEZ Not Available Start: 08-25-2023 Orders Only Shaikh Patria POZO Work Phone: [facility] Comment on above: Left wrist pain (Kesha heber Dx); Pain of left thumb Start: 06-23-2023 ambulatory SYDNIE ANABEL Facility : [facility] Start: 05-04-2023 ambulatory SYDNIE ANABEL Facility :[facility] Start: 04-07-2023 End: 04-07-2023 ambulatory MD Eliel Hurd Work Phone: [facility] Work Phone: Start: 04-07-2023 End: 04-07-2023 Patient encounter procedure MD Eliel Hurd Work Phone: [facility] [address] Work Phone: Start: 02-15-2023 End: 02-16-2023 ambulatory Booker Lizarraga MD Facility: [facility] Start: 01-22-2023 ambulatory SYDNIE ANABEL Facility :[facility] [place] Start: 01-11-2023 End: 01-12-2023 ambulatory Booker Lizarraga MD Facility: [place] Start: 12-28-2022 ambulatory ANDRIUS GIEDRAITIS Faci lity:[facility] Start: 12-01-2022 ambulatory BRIEN B APLING Facility :[facility] Start: 11-25-2022 End: 11-25-2022 ambulatory MD Eliel Hurd Work Phone: [facility] Work Phone: Start: 11-25-2022 End: 11-25-2022 Registered Recurring MD Eliel Hurd Work Phone: [facility] Work Phone: Start: 09-18-2022 End: 09-18-2022 ambulatory MD Eliel Hurd Work Phone: [facility] Work Phone: Start: 09-18-2022 End: 09-18-2022 Registered Recurring MD Eliel Hurd Work Phone: [facility] Work Phone: Start: 08-14-2022 End: 08-14-2022 ambulatory MD Eliel Hurd Work Phone: [facility] Work Phone: Start: 08-14-2022 End: 08-14-2022 Registered Recurring MD Eliel Hurd Work Phone: [facility] Work Phone: Start: 08-06-2022 End: 08-06-2022 ambulatory MD Eliel Hurd Work Phone: [facility] Work Phone: Start: 08-06-2022 End: 08-06-2022 Registered Recurring MD Eliel Hurd Work Phone: [facility] Work Phone: Start: 07-23-[address] DOCTOR STRINGER Facility : Start: 07-22-2022 End: 07-22-2022 ambulatory MD Eliel Hurd Work Phone: [facility] Work Phone: Start: 07-22-2022 End: 07-22-2022 Registered Recurring MD Eliel Hurd Work Phone: [facility] Work Phone: Start: 06-19-2022 End: 06-19-2022 Patient encounter procedure MD Eliel Hurd Work Phone: [facility] [place] Work Phone: Start: 06-18-2022 End: 06-18-2022 ambulatory MD Eliel Hurd Work Phone: [facility] Work Phone: Start: 06-18-2022 End: 06-18-2022 Registered Recurring MD Eliel Hurd Work Phone: [facility] Start: 04-16-2022 End: 04-16-2022 ambulatory MD Eliel Hurd Work Phone: [facility] Work Phone: Start: 04-16-2022 End: 04-16-2022 Registered Recurring MD Eliel Hurd Work Phone: [facility] Start: 04-16-2022 End: 04-16-2022 Discharged Recurring MD Eliel Hurd Work Phone: [facility] - [facility] Start: 04-14-2022 End: 04-15-[address] KRISTA ROBERTSON Facility:[facility] Start: 04-07-2022 End: 04-07-[address] CHIDI RINCON . Facility:[facility] Start: 04-05-2022 Encounter for genera l adult medical examination without abnormal findings DR ELIEL HURD . [facility] Start: 2022 End: 04-01-2022 Encounter for general adult medical examination without abnormal findings DR ELIEL HURD . Facility:[facility] Start: 2022 End: 04-01-[address] ELIEL HURD . Facility:[facility] Start: 03-20-2022 Registered Recurring MD Eliel rogers Work Phone: [facility] Start: 03-19-2022 End: 03-19-2022 Registered Recurring MD Eliel Hurd Work Phone: [facility] Start: 03-14-2022 End: 03-14-2022 ambulatory EARNEST HDZ Facility:[facility] Start: 03-12-2022 End: 03-12-2022 Registered Recurring MD Eliel Hurd Work Phone: [facility] Start: 02-18-2022 End: 02-19-2022 ambulatory DIANA [facility] Start: 02-17-2022 End: 02-20-2022 ambulatory DAINA P [facility] Start: 02-17-2022 End: 02-17-[address] [facility] Start: 02-17-2022 End: 02-19-2022 Subsequent hospital visit by physician Jackie Everett Room 1 [facility] Comment on above: Malignant [...] Start: 02-04-2022 End: 02-07-2022 ambulatory ELIEL HURD [facility] Start: 02-04-2022 End: 02-06-2022 Subsequent hospital visit by physician Lesly Su [facility] Comment on above: Malignant neoplasm o f right female breast, unspecified estrogen receptor status, unspecified site of breast (HCC) Start: 01-29-2022 Telephone encounter Xiomara tolliver MD Work Phone: [facility] Comment on above: Appointment Start: 01-15-2022 End: 01-15-2022 Patient encounter procedure Fahad Russell MD Work Phone: Plastic Surgery Comment on above: History of breast ca ncer (Primary Dx); Breast asymmetry following reconstructive surgery Start: 01-15-2022 Telephone encounter Xiomara tolliver MD Work Phone: [facility] Comment on above: Appointment Start: 09-15-2021 End: 09-15-2021 ambulatory Franco Stokes Other [facility] [employer] Other Start: 09-15-2021 Office outpatient ne w 30 minutes Franco Stokes [facility] Neuro[facility] Start: 05-27-1998 End: 05-27-1998 Patient encounter procedure Conversion José Meyer [facility] Start: 05-27-1998 Results Only Conversion José Meyer [facility] Procedures Date Procedure Procedure Detail Performing Clinician Start: 10-05-2024 Bilateral mammography PHYSICIAN NO FAMIL Y Start: 05-02-2024 Radex wrist 2 views Jacqueline Chavez NP Work Phone: Start: 04-17-2024 IGP,APTIMA HPV,AGE GDLN Chidicoty Sernao DO Work Phone: Start: 04-17-2024 Microscopic observation [...] MD Work Phone: Start: 05-27-1998 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 Conversion Fransiscoaker Ap Biopsy of breast Ismael Orellana Cholecystectomy Ismael NILL Decompression of med misael nerve Ismael MCGOWANL Endometrial ablation Ismael MCGOWANL Fasciotomy of foot Ismael GILES Hemorrhoidectomy Ismael MCGOWAN L History of mastectomy Status pos t breast lumpectomy Diana Murguia DO Work Phone: History of surgical procedure on cervical spine Ismael MCGOWANL Insertion of implant able venous access port Ismael MCGOWANL Ligation of fallopian tube Trish ichjono MCGOWANL Loop electrosurgical excision procedure Ismael MCGOWANL Lumpectomy of right breast Trish MCGOWANL Mammoplasty Ismael BERMAN Plan of Treatment Date Care Activity Detail Author Start: 04-27-2028 Screening for malignant neoplasm of cervix [facility] Start: 04-17-2027 Screening for malignant neoplasm of cervix Pap Smear [facility] Start: 04-07-2027 Screening for malignant neoplasm of cervix Pap Smear [facility] Start: 05-02-2025 End: 05-02-2025 Patient encounter procedure 05/02/2025 3:00 PM EDT Office Visit [facility] [address] [place] [address] Chidi Rincon, DO [address], [facility] Start: 04-18-2025 End: 04-18-2025 Patient encounter procedure 04/18/2025 3:00 PM EDT Office Visit [facility] [address] [place] [address] Chidi Rincon, DO [address] [place] [address] [facility] Start: 09-27-2024 End: 09-27-2024 Patient encounter procedure 09/27/2024 2:30 PM EDT Office Visit [facility] [address] [place] [address] Demetra Sparrow NP [address] [place] [phone] [facility] Start: 06-26-2024 End: 06-26-2024 Patient encounter procedure [facility] Comment on above: Arrived Start: 06-22-2024 End: 06-22-2024 Patient encounter procedure 06/22/2024 2:20 PM EST Office Visit [facility] [address] [facility] [address] [place] [address] Hi Nguyễn DPM [address] [facility] [address] [place] [address] [facility] Start: 05-30-2024 End: 05-30-2024 Patient encounter procedure 05/30/2024 2:15 PM EST Office Visit [facility] [address] [facility] [address] [place] [address] Jacqueline Chavez, [employer] [address] [place] [address] [facility] Start: 05-02-2024 End: 05-02-2024 Patient encounter procedure 05/02/2024 2:30 PM EDT Office Visit [facility] [address] [facility] [address] [place] [address] Jacqueline Chavez, [employer] [address] [place] [address] Arrived [facility] Comment on above: Arrived Start: 04-17-2024 End: 04-17-2024 Patient encounter procedure [facility] Comment on above: Arrived Start: 03-22-2024 End: 03-22-2025 CBC W Auto Differential panel - Blood CBC and differential Lab Routine Encounter for wellness examination in adult Expected: 03/22/2024 (Approximate), Expires: 03/22/2025 [facility] Comment on above: Expected: 03/22/2024 (Approximate), Expi res: 03/22/2025 Start: 03-22-2024 End: 03-22-2025 Comprehensive metabolic 2000 panel - Serum or Plasma Comprehensive metabolic panel Lab Routine Encounter for wellness examination in adult Expected: 03/22/2024 (Approximate), Expires: 03/22/2025 [facility] Comment on above: Expected: 03/22/2024 (Approximate), Expi res: 03/22/2025 Start: 03-22-2024 End: 03-22-2025 Hemoglobin A1c/Hemoglobin.total in Blood Hemoglobin A1c Lab Routine Encounter for wellness examination in adult Expected: 03/22/2024 (Approximate), Expires: 03/22/2025 [facility] Comment on above: Expected: 03/22/2024 (Approximate), Expi res: 03/22/2025 Start: 03-22-2024 End: 03-22-2025 Lipid 1996 panel - Serum or Plasma Lipid panel Lab Routine Encounter for wellness examination in adult Expected: 03/22/2024 (Approximate), Expires: 03/22/2025 [facility] Comment on above: Expected: 03/22/2024 (Approximate), Expi res: 03/22/2025 Start: 03-22-2024 End: 03-22-2025 TSH W/REFLEX TO FT4 TSH W/REFLEX TO FT4 Lab Routine Encounter for wellness examination in adult Expected: 03/22/2024 (Approximate), Expires: 03/22/2025 [facility] Work Phone: Comment on above: Expected: 03/22/2024 (Approximate), Expi res: 03/22/2025 Start: 03-19-2024 Influenza vaccination Influenza Vaccine (#1) [facility] Start: 01-10-2024 MR Breast - bilateral [facility] Start: 01-10-2024 MRI of bilateral breasts with contrast MR breast BI wo/w con CAD [facility] Start: 08-25-2023 End: 08-25-2024 XR Hand - left 3 Views XR hand 3+ views left Imaging Routine Left wrist pain Pain of left thumb Expected: 08/25/2023, Expires: 08/25/2024 [facility] Healthcare Comment on above: Expected: 08/25/2023, Expires: Start: 08-25-2023 End: 08-25-2024 XR Wrist - left 3 Views XR wrist 3+ views left Imaging Routine Left wrist pain Pain of left thumb Expected: 08/25/2023, Expires: 08/25/2024 [facility] Work Phone: Comment on above: Expected: 08/25/2023, Expires: Start: 04-07-2023 [facility] Start: 03-19-2023 Influenza vaccination Influenza Vaccine (#1) [facility] Start: 09-04-2022 End: 09-04-2022 [facility] Start: 09-03-2022 [facility] Start: 08-07-2022 [facility] Start: 08-05-2022 [facility] Start: 07-22-2022 Adrenocorticotropic hormone measurement [facility] Start: 07-22-2022 [facility] Start: 07-09-2022 [facility] Start: 06-19-2022 [facility] Start: 06-18-2022 [facility] Start: 06-17-2022 Adrenocorticotropic hormone measurement [facility] Start: 05-28-2022 [facility] Start: 04-22-2022 Mammography MAMMOGRAM [facility] Start: 03-20-2022 Registered Recurring Registered Recurring [facility]Infusion Therapy - O/P Start: 03-19-2022 Influenza vaccination [facility] Start: 03-04-2022 End: 03-04-2022 Patient encounter procedure 03/04/2022 Office Visit [place] [id number] [id number] [facility] Start: 03-04-2022 End: 03-04-2022 Patient encounter procedure 03/04/2022 Office Visit General Surgery Diana Murguia, DO [address] [place] [address] [facility] Start: 02-17-2022 End: 02-17-2022 Mast modf rad w/ax lymph nod w/wo pect/gonzalo min BREAST MASTECTOMY RECONSTRUCTION Malignant neoplasm of right female breast, unspecified estrogen receptor status, unspecified site of breast (HCC) 02/17/2022 10:22 AM [facility] Start: 02-17-2022 End: 02-17-2022 Mastectomy partial BREAST LUMPECTOMY PARTIAL MASTECTOMY Malignant neoplasm of right female breast, unspecified estrogen receptor status, unspecified site of breast (HCC) 02/17/2022 10:22 AM [facility] Start: 02-09-2022 End: 02-09-2022 Patient encounter procedure 02/09/2022 Office Visit General Surgery Diana Murguia, DO [address] [place] [address] [facility] Start: 12-17-2021 [facility] Start: 11-26-2021 [facility] Start: 11-05-2021 [facility] Start: 10-15-2021 [facility] Start: 09-30-2021 [facility] Start: 09-24-2021 [facility] Start: 09-24-2021 [facility] Start: 09-17-2021 End: 09-17-2021 [facility] Start: 09-16-2021 End: 09-16-2021 [facility] Start: 09-11-2021 End: 09-11-2021 [facility] Start: 09-04-2021 [facility] Start: 08-27-2021 [facility] Start: 08-20-2021 [facility] Start: 08-14-2021 [facility] Start: 08-13-2021 End: 08-14-2021 [facility] Start: 07-30-2021 [facility] Start: 07-28-2021 [facility] Start: 07-21-2021 End: 07-22-2021 [facility] Start: 01-18-2021 COVID-19 VACCINE (3 - Booster for Moderna series) COVID-19 VACCINE (3 - Booster for Moderna series) [facility] Start: 2017 Lipid panel Lipids [facility] Start: 2012 Diabetes screen Diabetes screen [facility] Start: 2007 HPV TESTING HPV TESTING [facility] Start: 2007 Screening for malignant neoplasm of cervix [facility] Start: 1998 PAP TESTING PAP TESTING [facility] Start: 1998 Screening for malignant neoplasm of cervix Pap smear [facility] Start: 1996 DTaP/Tdap/Td vaccine (1 - Tdap) DTaP/Tdap/Td vaccine (1 - Tdap) [facility] Start: 1996 Urine microalbumin profile DTAP,TDAP,TD (1 - Tdap) [facility] Start: 1995 HEPATITIS C SCREENING HEPATITIS C SCREENING [facility] Start: 1995 Hepatitis C screening Hepatitis C screen [facility] Start: 1995 HIV SCREENING HIV SCREENING [facility] Start: 1992 HIV screening HIV screen [facility] Start: 1989 Adult depression screening assessment [facility] Start: 1989 Depression Screen Depression Screen [facility] Start: 1977 COVID-19 Vaccine (#1) COVID-19 Vaccine (#1) [facility] Start: 1977 Screening for malignant neoplasm of colon [facility] Adrenocorticotropic hormone measurement [facility] Work Phone: Adrenocorticotropic hormone measurement [facility] Adrenocorticotropic hormone measurement [facility] Adrenocorticotropic hormone measurement [facility] Adrenocorticotropic hormone measurement [facility] Adrenocorticotropic hormone measurement [facility] Basophils [#/volume] in Blood by Automated count [facility] Basophils/100 leukoc ytes in Blood by Automated count [facility] Comprehensive metabo lic 1999 panel - Serum or Plasma [facility] Work Phone: Comprehensive metabo lic 1999 panel - Serum or Plasma [facility] Comprehensive metabo lic 1999 panel - Serum or Plasma [facility] Comprehensive metabo lic 1999 panel - Serum or Plasma [facility] Comprehensive metabo lic 1999 panel - Serum or Plasma [facility] Comprehensive metabo lic 1999 panel - Serum or Plasma [facility] Comprehensive metabo lic 1999 panel - Serum or Plasma [facility] Comprehensive metabo lic 1999 panel - Serum or Plasma [facility] Comprehensive metabo lic 1999 panel - Serum or Plasma [facility] Cortisol [Mass/volum e] in Serum or Plasma [facility] Work Phone: Cortisol [Mass/volum e] in Serum or Plasma [facility] Cortisol [Mass/volum e] in Serum or Plasma [facility] Cortisol [Mass/volum e] in Serum or Plasma [facility] Cortisol [Mass/volum e] in Serum or Plasma [facility] Cortisol [Mass/volum e] in Serum or Plasma [facility] CT Head WO and W con trast IV [facility] Work Phone: CT Head WO and W con trast IV [facility] Eosinophils [#/volum e] in Blood [facility] Eosinophils/100 leuk ocytes in Blood by Automated count [facility] Erythrocyte distribu tion width [Ratio] by Automated count [facility] Erythrocytes [#/volu me] in Blood [facility] Hematocrit [Volume Fraction] of Blood [facility] Hemoglobin [Mass/vol ume] in Blood [facility] End: 02-17-2022 INITIATE PACU OXYGEN THERAPY PROTOCOL Initiate PACU Oxygen Therapy Protocol Respiratory Care Routine Continuous until discontinued starting 02/17/2022 [employer] Work Phone: Comment on above: Continuous until discontinued starting 0 02/17/2022 Leukocytes [#/volume ] corrected for nucleated erythrocytes in Blood by Automated coun [facility] Leukocytes [#/volume ] in Blood [facility] Lymphocytes [#/volum e] in Blood by Automated count [facility] Lymphocytes/100 leuk ocytes in Blood by Automated count [facility] End: 02-17-2022 WILLIE NEEDLE LOCALIZATION RIGHT WILLIE NEEDLE LOCALIZATION RIGHT Imaging Routine Abnormal mammogram Once for 1 Occurrences starting 02/17/2022 until 02/17/2022 [employer] Phone: Comment on above: Once for 1 Occurrences starting 02/18/20 until 02/17/2022 MCH [Entitic mass] b y Automated count [facility] MCHC [Mass/volume] b y Automated count [facility] MCV [Entitic volume] by Automated count [facility] MG Breast - bilatera l Diagnostic [facility] Monocytes [#/volume] in Blood by Automated count [facility] Monocytes/100 leukoc ytes in Blood by Automated count [facility] Neutrophils [#/volum e] in Blood by Automated count [facility] Neutrophils/100 leuk ocytes in Blood by Automated count [facility] Nucleated erythrocyt es [Presence] in Blood by Automated count [facility] Oxygen therapy [Mini mum Data Set] Initiate Oxygen Therapy Protocol Respiratory Care Routine Daily until discontinued starting 02/17/2022 [employer] Phone: Comment on above: Daily until discontinued starting 2021 Platelet mean volume [Entitic volume] in Blood by Automated count [facility] Platelets [#/volume] in Blood [facility] Surgical Pathology Surgical Path ology Lab Routine Malignant neoplasm of right female breast, unspecified estrogen receptor status, unspecified site of breast (HCC) Release Upon Ordering for 1 Occurrences starting 02/17/2022 [employer] Phone: Comment on above: Release Upon Ordering for 1 Occurrences starting 02/17/2022 End: 02-17-2022 SURGICAL PATHOLOGY REPORT SURGICAL PATHOLOGY REPORT Lab Routine Once for 1 Occurrences starting 02/17/2022 until 02/17/2022 [employer] Phone: Comment on above: Once for 1 Occurrences starting 02/18/20 until 02/17/2022 THIN PREP TIS PAP AN D HR HPV DNA THIN PREP TIS PAP AND HR HPV DNA Pathology and Cytology Routine Well woman exam with routine gynecological exam Ordered: 04/17/2024 [facility] Work Phone: Comment on above: Ordered: 04/17/2024 Thyrotropin [Units/v olume] in Serum or Plasma [facility] Work Phone: Thyrotropin [Units/v olume] in Serum or Plasma [facility] Thyrotropin [Units/v olume] in Serum or Plasma [facility] Thyrotropin [Units/v olume] in Serum or Plasma [facility] Thyrotropin [Units/v olume] in Serum or Plasma [facility] Thyrotropin [Units/v olume] in Serum or Plasma [facility] Thyroxine (T4) free [Mass/volume] in Serum or Plasma [facility] Work Phone: Thyroxine (T4) free [Mass/volume] in Serum or Plasma [facility] Thyroxine (T4) free [Mass/volume] in Serum or Plasma [facility] Thyroxine (T4) free [Mass/volume] in Serum or Plasma [facility] Thyroxine (T4) free [Mass/volume] in Serum or Plasma [facility] Thyroxine (T4) free [Mass/volume] in Serum or Plasma [facility] Immunizations Immunization Date Immunization Notes Care Provider [facility] 08-21-2020 Moderna SARS-CoV-2 Vaccination Shaikh Patria POZO Work Phone: [facility] 07-25-2020 Moderna SARS-CoV-2 Vaccination Shaikh Patria POZO Work Phone: [facility] 04-26-2018 influenza, injectabl e, quadrivalent, preservative free Shaikh Patria POZO Work Phone: [facility] 04-26-2018 influenza virus vacc ine, unspecified formulation Shaikh Patria POZO Work Phone: [facility] Payers Date Payer Category Payer Self-pay [id number] 2022 [facility] BCBS [id number] 2022 Unknown 2022 Unknown [id number] 2021 Unknown MMO MMO [employer] [id number] 2021-Present [phone] [address] [place] [address] PPO [id number] 2019 Unknown [id number] 2.840.1.696462.19 1977 Unknown [id number] 2.840.1.486371.3.579.2. 177 1977 Unknown [id number] 2.840.1.017918.3.579.2. 177 1977 Unknown [id number] 2.840.1.899660.3.579.2. 175 1977 Unknown [id number] 2.840.1.867687.3.579.2. 175 1977 Unknown [id number] 2.16.840.1.884032.3.579.2. 593 1977 Unknown [id number] 2.16.840.1.374951.3.579.2. 593 1977 Unknown [id number] 2.16.840.1.509650.3.579.2. 593 1977 Unknown [id number] 2.16.840.1.450822.3.579.2. 593 1977 Unknown [id number] 2.16.840.1.419529.3.579.2. 593 1977 Unknown [id number] 2.16.840.1.389337.3.579.2. 593 1977 Unknown [id number] 2.16.840.1.580745.3.579.2. 593 1977 Unknown [id number] 2.16.840.1.979564.3.579.2. 593 1977 Unknown [id number] 2.16.840.1.247186.3.579.2. 196 1977 Unknown [id number] 2.16.840.1.010565.3.579.2. 196 1977 Unknown [id number] 2.16.840.1.206798.3.579.2. 727 1977 Unknown [id number] 2.16.840.1.400524.3.579.2. 727 1977 Unknown [id number] 2.16.840.1.779488.3.579.2. 1259 1977 Unknown [id number] 2.16.840.1.219331.3.579.2. 9 1977 Unknown [id number] 2.16.840.1.780185.3.579.2. 1259 1977 Unknown [id number] 2.16.840.1.688385.3.579.2. 1259 1977 Unknown [id number] 2.16.840.1.650829.3.579.2. 1258 1977 Unknown [id number] 2.16.840.1.961228.3.579.2. 1258 1977 Unknown [id number] 2.16.840.1.525988.3.579.2. 1258 1977 Unknown [id number] 2.16.840.1.478819.3.579.2. 1258 1977 Unknown [id number] 2.16.840.1.365904.3.579.2. 1258 1977 Unknown [id number] 2.16.840.1.399534.3.579.2. 1258 1977 Unknown [id number] 2.16.840.1.668786.3.579.2. 1258 1977 Unknown [id number] 2.16.840.1.399070.3.579.2. 1258 1977 Unknown [id number] 2.16.840.1.798141.3.579.2. 1258 1977 Unknown [id number] 2.16.840.1.770403.3.579.2. 1258 Unknown [id number] Unknown HCAP/HFA/FAP Active [id number] Unknown [id number] 2.16.840.1.440731.3.579.2. 531 Unknown [id number] 2.16840.1.016755.3.579.2. 531 Social History Date Type Detail Facility Tobacco smoking status TXIS Unknown if ever smoked [facility] Start: 1975 Sex Assigned At Not on file [facility] Start: 04-12-2023 End: 01-13-2024 Sex Assigned At [facility] Start: 01-15-2022 End: 05-10-2023 Tobacco smoking status NHIS Ex-smoker [facility] Start: 01-15-2022 End: 11-01-2023 Tobacco use and exposure Smokeless tobacco non-user [facility] Start: 1975 Sex Assigned At Female [facility] Start: 01-13-2022 End: 02-17-2022 Exposure to SARS-CoV-2 (event) Not sure [facility] History of tobacco use Current smoker [employer] Phone: Start: 02-04-2022 Tobacco use and exposure Former smokeless tobacco user [employer] Phone: Start: 02-17-2022 End: 10-19-2024 Alcohol intake Lifetime non-drinker (finding) [employer] Phone: Start: 02-01-2023 End: 11-01-2023 Tobacco smoking status [facility] Never smoked tobacco [facility] Start: 04-12-2023 End: 01-13-2024 History of Social function [facility] Start: 03-01-2023 Alcohol Comment caffeine: 1-2 cups per day coffee [facility] Tobacco smoking status Never [facility] [place] Start: 10-06-2024 Sex Female (finding) [facility] NEGATED: Highlighted rowStart: NINF History of tobacco use Passive smoker [facility] Functional Status Date Assessment Result Facility 11-03-2023 Functional Status N/A [facility] Clinical Notes 07-08-2021 to 10-25-2024 Cielo Jean LPN - 10/25/2024 2:20 PM Omid Sparrow, SAVITA - 06/26/2024 4:29 PM Denis Sparrow, SAVITA - 06/26/2024 2:46 PM Denis Sparrow, SAVITA - 06/26/2024 2:30 PM EST Note Date & Type Note Facility 10-25-2024 History of Present illness Narrative Reason for Appointment: Patient ID: Tenisha Hancock is a 49 y.o. female who presents for Discus ERT Patient presents today for Acute Visit. MEDICATIONS Current Outpatient Medications Medication Instructions baclofen (Lioresal) 10 MG tablet 3 times daily cholecalciferol (NATURAL VITAMIN D-3) 5,000 Units, Oral, Daily citalopram (CELEXA) 20 mg, Oral, Daily fluticasone (Flonase) 50 MCG/ACT nasal spray USE 2 SPRAYS IN EACH NOSTRIL DAILY*SHAKE GENTLY* hydrocortisone (CORTEF) 10 mg, Oral, Daily levothyroxine (Synthroid, Levoxyl) 50 MCG tablet TAKE 1 TABLET BY MOUTH EVERY DAY IN THE MORNING ON EMPTY STOMACH pantoprazole (PROTONIX) 40 mg, Oral, Daily before breakfast, Do not crush, chew, or split. rosuvastatin (CRESTOR) 20 mg, Oral, Daily ALLERGIES No Known Allergies PROBLEMS Active Ambulatory Problems Diagnosis Date Noted Arthritis of left hip 11/30/2022 Breast cancer ([facility]) 11/30/2022 Drug-induced adrenocortical insufficiency ([facility]) 11/30/2022 Malignant neoplasm of central portion of right female breast ([facility]) 11/30/2022 Migraine 04/20/2011 Obesity (BMI 30-39.9) 11/30/2022 Right carpal tunnel syndrome 11/30/2022 Arthritis 11/30/2022 Hypercholesteremia ([facility]) 11/30/2022 Carcinoma of lower outer quadrant of right breast ([facility]) 06/05/2021 Status post breast reconstruction 02/17/2022 Triple negative malignant neoplasm of breast ([facility]) 06/05/2021 Adjustment and management of vascular access device 03/02/2023 History of breast cancer 03/02/2023 Arthralgia of multiple sites, bilateral 11/01/2023 Hypothyroidism (acquired) ([facility]) 11/01/2023 Cervical radiculopathy due to degenerative joint disease of spine 11/01/2023 Lumbar back pain with radiculopathy affecting left lower extremity 11/01/2023 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 ([facility]) 11/01/2023 Carpal tunnel syndrome, left upper limb 11/01/2023 Moderate episode of recurrent major depressive disorder ([facility]) 11/01/2023 Other hyperlipidemia 11/01/2023 History of breast problem 11/04/2023 Family history of cancer 11/04/2023 Anxiety and depression ([facility]) 12/14/2023 GERD (gastroesophageal reflux disease) 12/14/2023 Hypopituitarism [...] by mammogram 05/26/2021 Breast lump Cancer (CMS/HCC) Carpal tunnel syndrome Chicken pox Genetic testing negative History of right breast cancer Hypercholesterolemia (CMS/HCC) Hypertension (CMS/HCC) Hypothyroidism (CMS/HCC) Migraine headache (CMS/HCC) Negative genetic testing for ARVC Pap smear for cervical cancer screening 04/07/2022 HISTORY PAST MEDICAL HISTORY SOCIAL HISTORY Past Medical History: Diagnosis Date Branchland's disease (CMS/HCC) Arthritis Breast cancer screening by mammogram 05/26/2021 RIGHT BX DUE TO MASS. CALCIFICATION SLIGHTNESS Breast lump Cancer (CMS/HCC) right breast Carpal tunnel syndrome Chicken pox Drug-induced adrenocortical insufficiency (CMS/HCC) Family history of cancer Genetic testing negative History of breast cancer History of breast problem Right Breast ER/SC/Her3 neg History of right breast cancer Hypercholesterolemia (CMS/HCC) Hypertension (CMS/HCC) Hypothyroidism (CMS/HCC) Migraine headache (CMS/HCC) Negative genetic testing [...] SYSTEMS Review of Systems: Review of Systems Constitutional: Negative. HENT: Negative. Eyes: Negative. Respiratory: Negative. Cardiovascular: Negative. Gastrointestinal: Negative. Genitourinary: Negative. Musculoskeletal: Negative. Skin: Negative. Neurological: Negative. All other systems reviewed and are negative. Hematological: Negative. Endocrine: Negative. Allergic/Immunologic: Negative. OBJECTIVE Objective: Physical Exam Constitutional: Appearance: Normal appearance. She is well-developed. Cardiovascular: Rate and Rhythm: Normal rate and regular rhythm. Pulmonary: Effort: Pulmonary effort is normal. Breath sounds: Normal breath sounds. Abdominal: General: Bowel sounds are normal. There is no distension. Palpations: Abdomen is soft. Tenderness: There is no abdominal tenderness. There is no guarding or rebound. Musculoskeletal: General: No swelling. Normal range of motion. Right lower leg: No edema. Left lower leg: No edema. Neurological: Mental Status: She is alert and oriented to person, place, and time. Skin: General: Skin is warm and dry. Psychiatric: Mood and Affect: Mood normal. Behavior: Behavior normal. Vitals and nursing note reviewed. Exam conducted with a glue spreading machine operator present. Vitals: Estimated body mass index is 29.72 kg/m as calculated from the following: Height as of 06/26/24: 5' 3 . Weight as of this encounter: 167 lb 12 oz. BP: 102/70 No LMP recorded. Patient has had an ablation. ASSESSMENT & PLAN ICD-10-CM 1. Counseling for estrogen replacement therapy Z71.89 Pt has complaints of hot flashes and menopausal symptoms, pt has a h/o breast cancer. Discussed estrogen vs celexa for vasomotor symptoms. Pt advised to take estroven OTC- rx for effexor faxed to pharmacy. In four weeks pt will be called and decrease celexa to 10 for 2 weeks and then every other day for two weeks. Pt to return as needed. Documented by Cielo Jean LPN on behalf of: Chidi Rincon DO documented in this encounter [facility] 06-26-2024 History of Present illness Narrative Associated [...] MCG/ACT nasal spray documented in this encounter [facility] 06-01-2024 History of Present illness Narrative Patient: Tenisha Hancock : 1975 PCP: Shaikh Patria MD SUBJECTIVE [...] Medical History: Past Medical History: Diagnosis Date Branchland's disease (CMS/HCC) Arthritis Breast cancer screening by mammogram 05/26/2021 RIGHT BX DUE TO MASS. 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 Jacqueline Chavez DOOR TRIMMER-OBSTETRICIAN AND GYNAECOLOGIST ASSESSMENT: ICD-10-CM 1. Left wrist pain M25.532 [...] develop for requiring urgent evaluation. Jacqueline Chavez APRN-OBSTETRICIAN AND GYNAECOLOGIST documented in this encounter [facility] 04-17-2024 History of Present illness Narrative Reason [...] Arthritis of left hip 11/30/2022 Breast cancer ([facility]) 11/30/2022 Drug-induced adrenocortical insufficiency ([facility]) 11/30/2022 Malignant neoplasm of central portion of right female breast ([facility]/HCC) 11/30/2022 Migraine ([facility]) 04/20/2011 Obesity (BMI 30-39.9) 11/30/2022 Right carpal tunnel syndrome 11/30/2022 Arthritis 11/30/2022 Hypercholesteremia ([facility]) 11/30/2022 Carcinoma of lower outer quadrant of right breast ([facility]) 06/05/2021 Status post breast reconstruction 02/17/2022 Triple negative malignant neoplasm of breast ([facility]) 06/05/2021 Adjustment and management of vascular access device 03/02/2023 History of breast cancer 03/02/2023 Arthralgia of multiple sites, bilateral 11/01/2023 Hypothyroidism (acquired) ([facility]) 11/01/2023 Cervical radiculopathy due to degenerative joint disease of spine 11/01/2023 Lumbar back pain with radiculopathy affecting left lower extremity 11/01/2023 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 ([facility]) 11/01/2023 Carpal tunnel syndrome, left upper limb 11/01/2023 Moderate episode of recurrent major depressive disorder (HCC) ([facility]) 11/01/2023 Other hyperlipidemia (CMS/HCC) 11/01/2023 History of [...] Ambulatory Problems Past Medical History: Diagnosis Date Branchland's disease (CMS/HCC) Breast cancer screening by mammogram [...] cancer History of breast problem Right Breast ER/SC/Her3 neg History of right breast cancer Hypercholesterolemia [...] Chidi Rincon DO documented in this encounter [facility] 03-09-2024 Note Attestation signed by Awa Maradiaga [...] which she received immunotherapy with Keytruda from [id number]. She developed severe fatigue and weakness after [...] Behavior: Behavior normal. LABS: Recent Data from [facility] Related to ALL THYROID STIM HORMONE Component [...] not able t (more content not included)... [facility] 11-03-2023 Note Chief Complaint consultation for [...] ligation. Medications buPR (more content not included)... [facility] Comment on above: Result Comment: Elec tronically Signed By: ANTONELLA POZO, Ismael Kelly\Date and Time Signed: 11/03/23 16:46 EDT 08-25-2023 History of Present illness Narrative Xr wrist documented in this encounter [facility] 09-19-2022 Progress note Note Date/Time September 18, 2022 1:44pm [facility] [place] [address] Hem/Onc Follow Up Note - OP Signed Patient: Tenisha Hancock MR#: [id number] : 1975 Acct:[id number] Age/Sex: 47 / F Type: REG RCR [...] hydrocortisone 20mg am/10mg pm. Will f/u with [employer] next week to review symptoms. We may [...] right mastopexy on 02/17/20[address] Drs. Saunders/Drew ([facility]). Her pathology returned with no evidence [...] Simons and has an appointment scheduled at [facility] to discuss josep flap surgery as [...] overall good. BRCA testing was done through [employer] and is negative. She does have left [...] I willdefer to his impression and recommendations. YAKUTAT: This is a now 47 year old female, recently diagnosed with triple negative right breast cancer; currently undergoing neoadjuvant pembrolizumab, carboplatin AUC 4and weekly paclitaxel x6 cycles, which commenced: 07/22/2021. This is a 46-year-old female who works at [employer] with triple negative breast cancer, referred for neoadjuvant chemotherapy. Mammogramon on April 22, 2021 showed 3 new focal masses with the largest measuring 2 cm in size in the right breast. 2 additional lesions measuring 1 cm and a second 0.9 cm were also seen. The patient was referred for biopsy. Needle biopsy showed triple negative breast cancer, ER negative, SC negative, and H ER 2 -. The patient was referred to Dr. Ismael Red for Ofjtei-r-Loxq which she has had placed. [facility]. Because of insurance reasons, she will be getting her treatment here at [facility]. She has had echocardiography as well. According the patient an MRI was obtained prior to neoadjuvant therapy while she was at [facility] we are requesting this prior study. She [...] showed triple negative breast cancer, ER negative, SC negative, and HER 2 -. The patient was referred to Dr. Ismael Red for Wbqjje-r-Vawg which she has had placed. She has [facility]. Because of insurance reasons, she will be getting her treatment here at [facility]. She has had echocardiography as [...] 9 cycles --Original breast MRI obtained from [facility] from May 2021, follow-up breast MRI performed [...] preoperatively in late December. 2. 02/17/[address] [facility], Drs. Saunders/Shantal: needle localized lumpectomy with [...] Allergies Allergy (Verified 09/18/22 13:38) Home Medications fkrkggm-bfdqixiezbslq-qgwcqxpq 250 mg-250 mg-65 mg tablet (Excedrin Migraine) [...] % (Auto) 91.1, Lymph % (Auto) 6.2, Brewster % (Auto) 2.3, Eos % (Auto) 0.1, Baso % (Auto) 0.3, Nucleat RBC Rel Count 0.1, Neut # (Auto) 10.4 H, Lymph # (Auto) 0.7 L, Brewster # (Auto) 0.3, Eos # (Auto) 0.0, [...] at [facility] in [place], [place]; however, due to insurance reasons the patient transferredcare to [facility]. In reviewing notes from her prior [...] do not have records from this from [facility] in [place]. I am requesting this to evaluate her [...] testing returned negative from prior physicians at [facility]. BRCA testing negative Follow-up September is [...] We will review her prior MRI from [facility] in May 2021 in comparison to most [...] significant toxicities. MRI was reviewed and [facility] tumor board with Dr. Reza and [...] small focus of residual DCIS, ER 5%, SC 0%. Completed adjuvant radiation then we resumed [...] with sentinel lymph node biopsy 02/17/2022 in [place]. Adjuvant radiation completed 05/04-06/16/2022. Total of 30 [...] for coordination of care (as documented) and cqfa-oa-qxco counseling of patient and/or family. Dictated By: Kallie Chang MD DD/ 1343 Signed By: <Electronically signed by MD Kallie Chang> 09/18/22 [address] [facility] Work Phone: 1(657) 844-243602-18-2023 Progress note Author Kallie Chang [facility] September 04, 2022 10:35pm Note Date/Time September 04, 2022 1:11pm [facility] [place] [id number] Hem/Onc Follow Up Note - OP Signed Patient: Tenisha Hancock MR#: [id number] : 1975 Acct:[id number] Age/Sex: 47 / F Type: REG RCR [...] hydrocortisone 20mg am/10mg pm. Will f/u with [employer] next week to review symptoms. We may [...] right mastopexy on 02/17/[address] Saunders/Drew ([facility]). Her pathology returned with no evidence [...] Simons and has an appointment scheduled at [facility] to discuss josep flap surgery as [...] overall good. BRCA testing was done through [employer] and is negative. She does have left [...] I willdefer to his impression and recommendations. YAKUTAT: This is a now 47 year old female, recently diagnosed with triple negative right breast cancer; currently undergoing neoadjuvant pembrolizumab, carboplatin AUC 4and weekly paclitaxel x6 cycles, which commenced: 07/22/2021. This is a 46-year-old female who works at [employer] with triple negative breast cancer, referred for neoadjuvant chemotherapy. Mammogramon on April 22, 2021 showed 3 new focal masses with the largest measuring 2 cm in size in the right breast. 2 additional lesions measuring 1 cm and a second 0.9 cm were also seen. The patient was referred for biopsy. Needle biopsy showed triple negative breast cancer, ER negative, SC negative, and H ER 2 -. The patient was referred to Dr. Ismael Red for Wkfhvl-l-Wxtz which she has had placed. She has [facility]. Because of insurance reasons, she will be getting her treatment here at [facility]. She has had echocardiography as well. According the patient an MRI was obtained prior to neoadjuvant therapy while she was at [facility] we are requesting this prior study. She [...] showed triple negative breast cancer, ER negative, SC negative, and HER 2 -. The patient was referred to Dr. Ismael Red for Qtrfdn-n-Aifm which she has had placed. She has seen my [facility]. Because of insurance reasons, she will be getting her treatment here at [facility]. She has had echocardiography as [...] 9 cycles --Original breast MRI obtained from [facility] from May 2021, follow-up breast MRI performed [...] preoperatively in late December. 2. 02/17/[address] [facility], Drs. Saunders/Shantal: needle localized lumpectomy with [...] Allergies Allergy (Verified 09/04/22 13:03) Home Medications ikcwvle-izkidmbdrjmjt-cbgxgjjt 250 mg-250 mg-65 mg tablet (Excedrin Migraine) [...] at [facility] in [place], [place]; however, due to insurance reasons the patient transferredcare to [facility]. In reviewing notes from her prior [...] do not have records from this from [facility] in [place]. I am requesting this to evaluate her [...] testing returned negative from prior physicians at [facility]. BRCA testing negative Follow-up September is [...] We will review her prior MRI from [facility] in May 2021 in comparison to most [...] significant toxicities. MRI was reviewed and [facility] tumor board with Dr. Reza and [...] small focus of residual DCIS, ER 5%, SC 0%. Completed adjuvant radiation then we resumed [...] for coordination of care (as documented) and ncgk-wi-iqdv counseling of patient and/or family. Dictated By: Kallie Chang MD DD/ 1308 Signed By: <Electronically signed by MD Kallie Chang> 09/04/22 [address] [facility] Work Phone: 1(137) 202-294702-03-2023 Progress note Author Heber Arriaga [facility] August 21, 2022 1:13pm Note Date/Time August 14, 2022 2 :16pm [facility] [place] [id number] Hem/Onc Follow Up Note - OP Signed Patient: Tenisha Hancock MR#: [id number] : 1975 Acct:[id number] Age/Sex: 47 / F Type: REG RCR [...] hydrocortisone 20mg am/10mg pm. Will f/u with [employer] next week to review symptoms. We may [...] right mastopexy on 02/17/[address] Saunders/Drew ([facility]). Her pathology returned with no evidence [...] Simons and has an appointment scheduled at [facility] to discuss josep flap surgery as [...] overall good. BRCA testing was done through [employer] and is negative. She does have left [...] I willdefer to his impression and recommendations. 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 This is a 46-year-old female who works at [employer] with triple negative breast cancer, referred for neoadjuvant chemotherapy. Mammogramon on April 22, 2021 showed 3 new focal masses with the largest measuring 2 cm in size in the right breast. 2 additional lesions measuring 1 cm and a second 0.9 cm were also seen. The patient was referred for biopsy. Needle biopsy showed triple negative breast cancer, ER negative, SC negative, and H ER 2 -. The patient was referred to Dr. Ismael Red for Irfoxa-q-Uann which she has had placed. She has seen my [facility]. Because of insurance reasons, she will be getting her treatment here at [facility]. She has had echocardiography as well. According the patient an MRI was obtained prior to neoadjuvant therapy while she was at [facility] we are requesting this prior study. She [...] showed triple negative breast cancer, ER negative, SC negative, and HER 2 -. The patient was referred to Dr. Ismael Red for Cjefqg-g-Owag which she has had placed. She has seen my [facility]. Because of insurance reasons, she will be getting her treatment here at [facility]. She has had echocardiography as [...] 9 cycles --Original breast MRI obtained from [facility] from May 2021, follow-up breast MRI performed [...] preoperatively in late December. 2. 02/17/[address] [facility], Drs. Saunders/Shantal: needle localized lumpectomy with [...] Allergies Allergy (Verified 08/06/22 13:31) Home Medications omsuonk-evhnjvoxooere-oersppxu 250 mg-250 mg-65 mg tablet (Excedrin Migraine) [...] then AC plus pembrolizumab Postoperative pathologic staging: yTbrown yN0 postoperative pathologic stage 0. Right lumpectomy/breast [...] at [facility] in [place], [place]; however, due to insurance reasons the patient transferredcare to [facility]. In reviewing notes from her prior [...] do not have records from this from [facility] in [place]. I am requesting this to evaluate her [...] testing returned negative from prior physicians at [facility]. BRCA testing negative Follow-up September is [...] We will review her prior MRI from [facility] in May 2021 in comparison to most [...] significant toxicities. MRI was reviewed and [facility] tumor board with Dr. Reza and [...] small focus of residual DCIS, ER 5%, SC 0%. Completed adjuvant radiation then we resumed [...] for coordination of care (as documented) and nhsy-kx-bzcm counseling of patient and/or family. Dictated By: Heber Arriaga APRN DD/ 1416 Signed By: <Electronically signed by PETE Arriaga> 08/21/22 13[address] [facility] Work Phone: 1(131) 648-201201-20-2023 Progress note Author Kallie Chang [facility] August 07, 2022 1:00pm Note Date/Time August 06, 2022 1 :39pm [facility] [place] [address] Hem/Onc Follow Up Note - OP Signed Patient: OpalTenisha carrasco MR#: [id number] : 1975 Acct:[id number] Age/Sex: 47 / F Type: REG RCR [...] hydrocortisone 20mg am/10mg pm. Will f/u with [employer] next week to review symptoms. We may [...] right mastopexy on 02/17/[address] Saunders/Drew ([facility]). Her pathology returned with no evidence [...] Simons and has an appointment scheduled at [facility] to discuss josep flap surgery as [...] overall good. BRCA testing was done through [employer] and is negative. She does have left [...] I willdefer to his impression and recommendations. 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 This is a 46-year-old female who works at [employer] with triple negative breast cancer, referred for neoadjuvant chemotherapy. Mammogramon on April 22, 2021 showed 3 new focal masses with the largest measuring 2 cm in size in the right breast. 2 additional lesions measuring 1 cm and a second 0.9 cm were also seen. The patient was referred for biopsy. Needle biopsy showed triple negative breast cancer, ER negative, SC negative, and H ER 2 -. The patient was referred to Dr. Ismael Red for Aqrftz-t-Avzl which she has had placed. She has [facility]. Because of insurance reasons, she will be getting her treatment here at [facility]. She has had echocardiography as well. According the patient an MRI was obtained prior to neoadjuvant therapy while she was at [facility] we are requesting this prior study. She [...] showed triple negative breast cancer, ER negative, SC negative, and HER 2 -. The patient was referred to Dr. Ismael Red for Njqozj-y-Jgay which she has had placed. She has [facility]. Because of insurance reasons, she will be getting her treatment here at [facility]. She has had echocardiography as [...] 9 cycles --Original breast MRI obtained from [facility] from May 2021, follow-up breast MRI performed [...] preoperatively in late December. 2. 02/17/[address] [facility], Drs. Saunders/Shantal: needle localized lumpectomy with [...] Allergies Allergy (Verified 08/06/22 13:31) Home Medications gyrjfud-vwolrkyocjfdz-xuaydmmh 250 mg-250 mg-65 mg tablet (Excedrin Migraine) [...] % (Auto) 92.9, Lymph % (Auto) 5.5, Brewster % (Auto) 1.4, Eos % (Auto) 0.0, Baso % (Auto) 0.2, Nucleat RBC Rel Count 0.0, Neut # (Auto) 8.7 H, Lymph # (Auto) 0.5 L, Brewster # (Auto) 0.1, Eos # (Auto) 0.0, [...] at [facility] in [place], [place]; however, due to insurance reasons the patient transferredcare to [facility]. In reviewing notes from [...] do not have records from this from [facility] in [place]. I am requesting this to evaluate her [...] testing returned negative from prior physicians at [facility]. BRCA testing negative Follow-up September is [...] We will review her prior MRI from [facility] in May 2021 in comparison to most [...] significant toxicities. MRI was reviewed and [facility] tumor board with Dr. Reza and [...] small focus of residual DCIS, ER 5%, SC 0%. Completed adjuvant radiation then we resumed [...] with sentinel lymph node biopsy 02/17/2022 in [place]. Adjuvant radiation completed 05/04-06/16/2022. Total of 30 [...] for coordination of care (as documented) and oqlu-to-frco counseling of patient and/or family. Dictated By: Kallie Chang MD DD/ 1338 Signed By: <Electronically signed by MD Kallie Chang> 08/07/22 1300 [facility] Work Phone: 1(239) 998-489201-06-2023 Progress note Author Kallie Chang [facility] July 24, 2022 11:26am Note Date/Time July 23, 2022 1: 43pm [facility] at [address] [address] Hem/Onc Follow Up Note - OP Signed Patient: Tenisha Hancock MR#: [id number] : 1975 Acct:[id number] Age/Sex: 47 / F Type: REG RCR [...] hydrocortisone 20mg am/10mg pm. Will f/u with [employer] next week to review symptoms. We may [...] right mastopexy on 02/17/[address] Saunders/Drew ([facility]). Her pathology returned with no evidence [...] Simons and has an appointment scheduled at [facility] to discuss josep flap surgery as [...] overall good. BRCA testing was done through [employer] and is negative. She does have left [...] I willdefer to his impression and recommendations. 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 This is a 46-year-old female who works at [employer] with triple negative breast cancer, referred for neoadjuvant chemotherapy. Mammogram onon April 22, 2021 showed 3 new focal masses with the largest measuring 2 cm in size in the right breast. 2 additional lesions measuring 1 cm and a second 0.9 cm were also seen. The patient was referred for biopsy. Needle biopsy showed triple negative breast cancer, ER negative, SC negative, and H ER 2 -. The patient was referred to Dr. Ismael Red for Hkmirl-v-Hxkj which she has had placed. She has seen my colleague Dr. Smith at the [facility] whorecommended neoadjuvant chemotherapy and immunotherapy. Because of insurance reasons, she will be getting her treatment here at [facility]. She has had echocardiography as well. According the patient an MRI was obtained prior to neoadjuvant therapy while shewas at [facility] we are requesting this prior study. She [...] showed triple negative breast cancer, ER negative, SC negative, and HER 2 -. The patient was referred to Dr. Ismael Red for Fsozzi-y-Gdyf which she has had placed. She has [facility]. Because of insurance reasons, she will be getting her treatment here at [facility]. She has had echocardiography as [...] 9 cycles --Original breast MRI obtained from [facility] from May 2021, follow-up breast MRI performed [...] preoperatively in late December. 2. 02/17/[address] [facility], Drs. Saunders/Drew: needle localized lumpectomy with [...] Allergies Allergy (Verified 07/23/22 13:29) Home Medications gufstsl-gqntlycxlrcus-amndmnlo 250 mg-250 mg-65 mg tablet (Excedrin Migraine) [...] % (Auto) 71.8, Lymph % (Auto) 19.9, Brewster % (Auto) 6.3, Eos % (Auto) 1.3, Baso % (Auto) 0.7, Nucleat RBC Rel Count 0.2, Neut # (Auto) 4.6, Lymph # (Auto) 1.3, Brewster # (Auto) 0.4, Eos # (Auto) 0.1, [...] IMPRESSION: DEGENERATIVE DISEASE C4-C7. Impression dictated by: Dave Morataya Jr.OSavanah06/19/2022 7:04 PM Assessment and Plan - TNM [...] at [facility] in [place], [place]; however, due to insurance reasons the patient transferredcare to [facility] at [facility]. In reviewing notes from [...] do not have records from this from [facility] in [place]. I am requesting this to evaluate her [...] testing returned negative from prior physicians at [facility]. BRCA testing negative Follow-up September is [...] We will review her prior MRI from [facility] in May 2021 in comparison to most [...] significant toxicities. MRI was reviewed and [facility] tumor board with Dr. Reza and [...] with sentinel lymph node biopsy 02/17/2022 in [place]. Adjuvant radiation completed 05/04-06/16/2022. Total of 30 [...] for coordination of care (as documented) and xtfe-jr-gppd counseling of patient and/or family. Dictated By: Kallie Chang MD DD/ 1342 Signed By: <Electronically signed by MD Kallie Chang> 07/24/22 [address] [facility] Work Phone: 1(600) 755-564812-28-2022 Progress note Author Stacie Thomas [facility] July 15, 2022 1:57pm Note Date/Time July 15, 2022 9:31am [facility] [place] [address] Rad Onc Follow Up Note - OP Signed Patient: Tenisha Hancock MR#: [id number] : 1975 Acct:[id number] Age/Sex: 47 / F Type: REG RCR [...] 0 out of 5 lymph nodes involved. [id number]. In review of her operative note as [...] ductal carcinoma, 9 mm, provisional grade 3, ER/SC negative and HER2 negative. Per the available notes her BRCA testing was done through [employer] and was negative. Also appears the right breast mass was palpable in the lower mid quadrant of the breast. [facility]. Due to insurance reasons she received her systemic therapy here at [facility]. PET/CT was denied by insurance. CT scan of the chest abdomen pelvis on July 16, 2021 was negative for metastatic disease. Her clinical stage at presentation was cT2N0. June 11, 2021 patient did undergo an MRI in [place]. I do not have that report available [...] 0 out of 5 lymph nodes negative. [id number]. Pathology was negative for LVSI. Of note [...] <Electronically signed by Stacie Thomas MD> 07/15/22 6180 [facility] Work Phone: 1(477) 735-613312-02-2022 Progress note Author Kallie Chang [facility] June 19, 2022 9:06am Note Date/Time June 18, 2022 1 0:26am [facility] [place] [address] Hem/Onc Follow Up Note - OP Signed Patient: Tenisha Hancock MR#: [id number] : 1975 Acct:[id number] Age/Sex: 47 / F Type: REG RCR [...] hydrocortisone 20mg am/10mg pm. Will f/u with [employer] next week to review symptoms. We may [...] right mastopexy on 02/17/2022 by Drs. Saunders/Drew ([facility]). Her pathology returned with no evidence [...] Simons and has an appointment scheduled at [facility] to discuss josep flap surgery as [...] overall good. BRCA testing was done through [employer] and is negative. She does have left [...] I willdefer to his impression and recommendations. 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 This is a 46-year-old female who works at [employer] with triple negative breast cancer, referred for neoadjuvant chemotherapy. Mammogramon on April 22, 2021 showed 3 new focal masses with the largest measuring 2 cm in size in the right breast. 2 additional lesions measuring 1 cm and a second 0.9 cm were also seen. The patient was referred for biopsy. Needle biopsy showed triple negative breast cancer, ER negative, SC negative, and H ER 2 -. The patient was referred to Dr. Ismael Red for Gsiwai-f-Ciyl which she has had placed. She has [facility]. Because of insurance reasons, she will be getting her treatment here at [facility]. She has had echocardiography as well. According the patient an MRI was obtained prior to neoadjuvant therapy while she was at [facility] we are requesting this prior study. She [...] showed triple negative breast cancer, ER negative, SC negative, and HER 2 -. The patient was referred to Dr. Ismael Red for Ueifdv-j-Uzfd which she has had placed. She has [facility]. Because of insurance reasons, she will be getting her treatment here at [facility]. She has had echocardiography as [...] 9 cycles --Original breast MRI obtained from [facility] from May 2021, follow-up breast MRI performed [...] preoperatively in late December. 2. 02/17/[address] [facility], Drs. Saunders/Drew: needle localized lumpectomy with [...] Allergies Allergy (Verified 03/12/22 08:56) Home Medications nlbyjrz-ayyhnltrgcurp-tduutnqe 250 mg-250 mg-65 mg tablet (Excedrin Migraine) [...] % (Auto) 69.1, Lymph % (Auto) 17.2, Brewster % (Auto) 10.3, Eos % (Auto) 2.7, Baso % (Auto) 0.7, Nucleat RBC Rel Count 0.0, Neut # (Auto) 3.5, Lymph # (Auto) 0.9 L, Brewster # (Auto) 0.5, Eos # (Auto) 0.1, [...] at [facility] in [place], [place]; however, due to insurance reasons the patient transferredcare [facility] at [facility]. In reviewing notes from [...] do not have records from this from [facility] in [place]. I am requesting this to evaluate her [...] testing returned negative from prior physicians at [facility]. BRCA testing negative Follow-up September is [...] We will review her prior MRI from [facility] in May 2021 in comparison to most [...] other significant toxicities. MRI was reviewed and [facility] tumor board with Dr. Reza [...] with sentinel lymph node biopsy 02/17/2022 in [place]. Adjuvant radiation completed 05/04-06/16/2022. Total of 30 [...] giving hydrocortisone for symptom management. Reassess by [employer] for tolerance of therapy in 1 week. 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 Dictated By: Kallie Chang MD DD/ 1026 Signed By: <Electronically signed by MD Kallie Chang> 06/19/22 0906 [facility] Work Phone: 1(392) 403-369009-30-2022 Progress note Author Stacie Thomas [facility] April 17, 2022 9:21am Note Date/Time April 16, 2022 9:02am [facility] [place] [address] Rad Onc Follow Up Note - OP Signed with Addenda Patient: Tenisha Hancock MR#: [id number] : 1975 Acct:[id number] Age/Sex: 47 / F Type: REG RCR [...] 0 out of 5 lymph nodes involved. [id number]. In review of her operative note as [...] ductal carcinoma, 9 mm, provisional grade 3, ER/SC negative and HER2 negative. Per the available notes her BRCA testing was done through [employer] and was negative. Also appears the right breast mass was palpable in the lower mid quadrant of the breast. [facility]. Due to insurance reasons she received her systemic therapy here at [facility]. PET/CT was denied by insurance. CT scan of the chest abdomen pelvis on July 16, 2021 was negative for metastatic disease. Her clinical stage at presentation was cT2N0. June 11, 2021 patient did undergo an MRI in [place]. I do not have that report available [...] 0 out of 5 lymph nodes negative. [id number]. Pathology was negative for LVSI. Of note [...] signed by Stacie Thomas MD> 04/16/22 1256 [facility] Work Phone: 1(244) 160-538209-13-2022 NotePROCEDURE: XR GI UPPER AIR KUB DUAL [...] Electronically authenticated by: BARBER VASQUEZ Date: 2022 14:36[facility]09-13-2022 NotePROCEDURE: XR GI UPPER AIR KUB [...] Electronically authenticated by: BARBER VASQUEZ Date: 2022 14:36[facility]09-01-2022 Consult note Author Stacie Thomas [facility] March 19, 2022 10:56am Note Date/Time March 18, 2022 3: [address] [place] [address] [place] [address] Rad Onc Consult Note - OP Signed Patient: Tenisha Hancock MR#: [id number] : 1975 Acct:[id number] Age/Sex: 46 / F Type: REG RCR [...] 0 out of 5 lymph nodes involved. [id number]. In review of her operative note as [...] ductal carcinoma, 9 mm, provisional grade 3, ER/SC negative and HER2 negative. Per the available notes her BRCA testing was done through [employer] and was negative. Also appears the right breast mass was palpable in the lower mid quadrant of the breast. [facility]. Due to insurance reasons she received her systemic therapy here at [facility]. PET/CT was denied by insurance. CT scan of the chest abdomen pelvis on July 16, 2021 was negative for metastatic disease. Her clinical stage at presentation was cT2N0. June 11, 2021 patient did undergo an MRI in [place]. I do not have that report available [...] 0 out of 5 lymph nodes negative. [id number]. Pathology was negative for LVSI. Of note [...] work. Has no other breast related complaints. [facility] - Medical History Medical History: Medical [...] Allergies Allergy (Verified 03/12/22 08:56) Home Medications fwgujqz-mpmeajbuhjqdb-qsolhjrh 250 mg-250 mg-65 mg tablet (Excedrin Migraine) [...] 13:31 Dictated By: Stacie Thomas MD DD/ 1958 Signed By: <Electronically signed by Stacie Thomas MD> 03/19/22 1058 [facility] Work Phone: 1(417) 872-154108-31-2022 Consult note Author Stacie Thomas [facility] March 19, 2022 10:56am Note Date/Time March 18, 2022 3: 31pm [facility] [place] [address] Rad Onc Consult Note - OP Signed Patient: Tenisha Hancock MR#: [id number] : 1975 Acct:[id number] Age/Sex: 46 / F Type: REG RCR [...] 0 out of 5 lymph nodes involved. [id number]. In review of her operative note as [...] ductal carcinoma, 9 mm, provisional grade 3, ER/SC negative and HER2 negative. Per the available notes her BRCA testing was done through [employer] and was negative. Also appears the right breast mass was palpable in the lower mid quadrant of the breast. [facility]. Due to insurance reasons she received her systemic therapy here at [facility]. PET/CT was denied by insurance. CT scan of the chest abdomen pelvis on July 16, 2021 was negative for metastatic disease. Her clinical stage at presentation was cT2N0. June 11, 2021 patient did undergo an MRI in [place]. I do not have that report available [...] 0 out of 5 lymph nodes negative. [id number]. Pathology was negative for LVSI. Of note [...] work. Has no other breast related complaints. [facility] - Medical History Medical History: Medical [...] Allergies Allergy (Verified 03/12/22 08:56) Home Medications pyioyel-nwcehetbdkoqd-qitcdcxn 250 mg-250 mg-65 mg tablet (Excedrin Migraine) [...] <Electronically signed by Stacie Thomas MD> 03/19/22 1055 [facility] Work Phone: 1(431) 585-336108-25-2022 Progress note Author Kallie Chang [facility] March 12, 2022 4:36pm Note Date/Time March 12, 2022 9: 49am [facility] [place] [address] Hem/Onc Follow Up Note - OP Signed Patient: Tenisha Hancock MR#: [id number] : 1975 Acct:[id number] Age/Sex: 46 / F Type: REG RCR [...] right mastopexy on 02/17/2022 by Drs. Saunders/Drew ([facility]). Her pathology returned with no evidence [...] Simons and has an appointment scheduled at [facility] to discuss josep flap surgery as [...] overall good. BRCA testing was done through [employer] and is negative. She does have left [...] I willdefer to his impression and recommendations. 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 This is a 46-year-old female who works at [employer] with triple negative breast cancer, referred for neoadjuvant chemotherapy. Mammogramon on April 22, 2021 showed 3 new focal masses with the largest measuring 2 cm in size in the right breast. 2 additional lesions measuring 1 cm and a second 0.9 cm were also seen. The patient was referred for biopsy. Needle biopsy showed triple negative breast cancer, ER negative, SC negative, and H ER 2 -. The patient was referred to Dr. Ismael Red for Xdhclm-n-Hjem which she has had placed. She has seen my colleague Dr. Smith at the [facility] recommended neoadjuvant chemotherapy and immunotherapy. Because of insurance reasons, she will be getting her treatment here at [facility]. She has had echocardiography as well. According the patient an MRI was obtained prior to neoadjuvant therapy while she was at [facility] we are requesting this prior study. She [...] showed triple negative breast cancer, ER negative, SC negative, and HER 2 -. The patient was referred to Dr. Ismael Red for Qywuwi-c-Pina which she has had placed. She has seen my colleague Dr. Smith at the [facility] recommended neoadjuvant chemotherapy and immunotherapy. Because of insurance reasons, she will be getting her treatment here at [facility]. She has had echocardiography as [...] 9 cycles --Original breast MRI obtained from [facility] from May 2021, follow-up breast MRI performed [...] preoperatively in late December. 2. 02/17/[address] [facility], Drs. Saunders/Drew: needle localized lumpectomy with [...] Allergies Allergy (Verified 03/12/22 08:56) Home Medications tfxzfyq-jopeflfyppkih-vjvnrkqs 250 mg-250 mg-65 mg tablet (Excedrin Migraine) [...] therapy Copies to: MD Meghana Wilson MD, [facility]~ Weight: 196 lb Performed By: ARNOLD [...] at [facility] in [place], [place]; however, due to insurance reasons the patient transferredcare to [facility] at [facility]. In reviewing notes from [...] do not have records from this from [facility] in [place]. I am requesting this to evaluate her [...] testing returned negative from prior physicians at [facility]. BRCA testing negative Follow-up September is [...] We will review her prior MRI from [facility] in May 2021 in comparison to most [...] significant toxicities. MRI was reviewed and [facility] tumor board with Dr. Reza and [...] immunotherapy labs adjuvant cycle 2-day 1 Pembroluzumab maryer if new issues arise. High complexity visit [...] small focus of residual DCIS, ER 5%, SC 0%. Referring for adjuvant radiation then we [...] for coordination of care (as documented) and qeig-tg-ovia counseling of patient and/or family. Dictated By: Kallie Chang MD DD/ 0948 Signed By: <Electronically signed by MD Kallie Chang> 03/12/22 1416 [facility] Work Phone: 1([phone]) 456-264708-02-2022 Hospital Discharge instructions* Discharge Instructions* Nader Alicia [...] permanent changes in scar color to darker, radiology interventional physician or discolored. At times you may have [...] drainage Our office numbers are as follows: [place] office: [facility] Svbtle Phone: 1(390) 516-811007-14-2022 Miscellaneous Notes* Telephone Encounter - Nat Ricketts RN - 01/29/2022 5:25 PM EDT Noticed that patient's appointment for 01/[address] Lea was cancelled Called and lmom with my name and number for her to call back if this was cancelled accidentally somehow and we would be happy to put her back on the schedule documented in this encounterOhiohealth Doctors Hospital07-07-2022 Miscellaneous Notes* Telephone Encounter - Nat [...] on voicemail to return her call at [phone]. Thank you. * Telephone Encounter - Nat [...] I see a teaching note 06/23/21 at [facility] but limited documentation since then as [...] been, she has had studies at both [facility] and [place]. I was able to have patient get [...] slides and reports SHANNAN documented in this encounterOhiohealth Doctors Hospital06-30-2022 NoteHNO ID: [id number] Author: Yasemin Bernal Service: ? Author Type: ? Type: Progress Notes Filed: 01/15/2022 4:35 PM Note Text: DATE OF PHOTOS: 01/15/2022 Body Part: Breasts and Abdomen Yasemin Bernal January 15, 2022 4:35 [facility]06-29-2022 NoteHNO ID: [id number] Author: Fahad Russell MD Service: ? Author Type: Physician Type: Progress Notes Filed: 01/27/2022 4:45 PM Note Text: BREAST RECONSTRUCTION EVALUATION CC: Tenisha Hancock is a 46 year old female that presents today for breast reconstruction evaluation. 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 Dr. Reza in [place] is her breast surgeon. 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 Tenisha Hancock was given supplemental information on [...] Past Histories independently gathered by the clinical administrative support specialist and the remaining scribed note accurately describes my personal service to the patient. patient's condition reviewed and examined ? plan and options of management, complexity, risk benefit limitation potential complication, success /failure of management, expected result and recovery discussed ? I spent 30 minutes in the visit, with more than 50% of the total vtwe-yt-oizy time of the visit in counseling / coordination of care. ? Fahad Russell [facility]06-29-2022 History of Present illness Narrative* Fahad Russell MD - 01/14/2022 4:48 PM EDT BREAST RECONSTRUCTION EVALUATION CC: Tenisha Hancock is a 46 year old female that presents today for breast reconstruction evaluation. 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 in [place] is her breast surgeon. 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 Tenisha Hancock was given supplemental information on [...] Past Histories independently gathered by the clinical administrative support specialist and the remaining scribed note accurately describes my personal service to the patient. patient's condition reviewed and examined plan and options of management, complexity, risk benefit limitation potential complication, success/failure of management, expected result and recovery discussed I spent 30 minutes in the visit, with more than 50% of the total lula-qe-vrzi time of the visit in counseling / coordination of care. Fahad Russell MD documented in this encounterOhiohealth Doctors Hospital06-08-2022 Progress note Author Heber Arriaga [facility] December 24, 2021 8:46pm Note Date/Time December 24, 2021 3:07p [facility] [place] [address] Hem/Onc Follow Up Note - OP Signed Patient: Tenisha Hancock MR#: [id number] : 1975 Acct:[id number] Age/Sex: 46 / F Type: REG RCR Copies to: MD Uriel Wilson DO Kim E Knight, MD~ Subjective Date/Time of Service: Date of Service: 12/24/2021 Time of Service: 15:07 Chief Complaint: Patient is here for a 3 week follow up [facility] labs for review. Has multiple [...] Simons and has an appointment scheduled at [facility] to discuss josep flap surgery as [...] overall good. BRCA testing was done through [employer] and is negative. She does have left [...] I willdefer to his impression and recommendations. 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 This is a 46-year-old female who works at [employer] with triple negative breast cancer, referred for neoadjuvant chemotherapy. Mammogramon on April 22, 2021 showed 3 new focal masses with the largest measuring 2 cm in size in the right breast. 2 additional lesions measuring 1 cm and a second 0.9 cm were also seen. The patient was referred for biopsy. Needle biopsy showed triple negative breast cancer, ER negative, SC negative, and H ER 2 -. The patient was referred to Dr. Ismael Red for Niyema-l-Eglh which she has had placed. She has seen my colleague Dr. Smith at the [facility] recommended neoadjuvant chemotherapy and immunotherapy. Because of insurance reasons, she will be getting her treatment here at [facility]. She has had echocardiography as well. According the patient an MRI was obtained prior to neoadjuvant therapy while she was at [facility] we are requesting this prior study. She [...] showed triple negative breast cancer, ER negative, SC negative, and HER 2 -. The patient was referred to Dr. Ismael Red for Gwuujy-h-Rlxc which she has had placed. She has seen my colleague Dr. Smith at the [facility] recommended neoadjuvant chemotherapy and immunotherapy. Because of insurance reasons, she will be getting her treatment here at [facility]. She has had echocardiography as [...] 9 cycles --Original breast MRI obtained from [facility] from May 2021, follow-up breast MRI performed [...] Allergies Allergy (Verified 12/03/21 13:51) Home Medications vpazjuw-crudneubfnmmq-qniuhwaa 250 mg-250 mg-65 mg tablet (Excedrin Migraine) [...] at [facility] in [place], [place]; however, due to insurance reasons the patient transferredcare to [facility]. In reviewing notes from her prior [...] do not have records from this from [facility] in [place]. I am requesting this to evaluate her [...] testing returned negative from prior physicians at [facility] clinic. BRCA testing negative Follow-up September [...] We will review her prior MRI from [facility] in May 2021 in comparison to most [...] significant toxicities. MRI was reviewed and [facility] tumor board with Dr. Reza and [...] for coordination of care (as documented) and xmzt-tg-ezoe counseling of patient and/or family. Dictated By: Heber Arriaga APRN DD/ 1507 Signed By: <Electronically signed by PETE Arriaga> 12/24/212045 [facility] Work Phone: 1(651) 664-734505-18-2022 Progress note Author Kallie Chang [facility] December 03, 2021 2:19pm Note Date/Time December 03, 2021 2:02p m [facility] [place] [address] Hem/Onc Follow Up Note - OP Signed Patient: Tenisha Hancock MR#: [id number] : 1975 Acct:[id number] Age/Sex: 46 / F Type: REG RCR Copies to: Uriel Reza, MD Eliel Schuster MD~ Subjective Date/Time of Service: Date of [...] overall good. BRCA testing was done through [employer] and is negative. She does have left [...] I willdefer to his impression and recommendations. 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 This is a 46-year-old female who works at [employer] with triple negative breast cancer, referred for neoadjuvant chemotherapy. Mammogramon on April 22, 2021 showed 3 new focal masses with the largest measuring 2 cm in size in the right breast. 2 additional lesions measuring 1 cm and a second 0.9 cm were also seen. The patient was referred for biopsy. Needle biopsy showed triple negative breast cancer, ER negative, SC negative, and H ER 2 -. The patient was referred to Dr. Ismael Red for Gnfibg-t-Srso which she has had placed. She has [facility] [place] and immunotherapy. Because of insurance reasons, she will be getting her treatment here at [facility]. She has had echocardiography as well. According the patient an MRI was obtained prior to neoadjuvant therapy while she was at [facility] we are requesting this prior study. She [...] showed triple negative breast cancer, ER negative, SC negative, and HER 2 -. The patient was referred to Dr. Ismael Red for Hpaowx-g-Sieo which she has had placed. [facility]. Because of insurance reasons, she will be getting her treatment here at [facility]. She has had echocardiography as [...] 9 cycles --Original breast MRI obtained from [facility] from May 2021, follow-up breast MRI performed [...] (Last Reviewed 12/03/21 @ 14:14 by Kallie Chnag MD) Brother Lung cancer Father Cancer Mother COPD (chronic obstructive pulmonary disease) - Social History Smoking Status: Former smoker Tobacco Type: cigarettes Substance Use Type: None Home Medications & Allergies Allergies No Known Allergies Allergy (Verified 12/03/21 13:51) Home Medications cpffxvj-tugcalpzhlphf-fgkkhzam 250 mg-250 mg-65 mg tablet (Excedrin Migraine) [...] Left breast without masses, left upper chest Szzewd-v-Wyba in place and nontender. No axillary fullness [...] % (Auto) 80.1, Lymph % (Auto) 16.3, Brewster % (Auto) 2.6, Eos % (Auto) 0.5, Baso % (Auto) 0.5, Neut # (Auto) 6.9, Lymph # (Auto) 1.4, Brewster # (Auto) 0.2, Eos # (Auto) 0.0, Baso # (Auto) 0.0, Nucleated RBC % (auto) 0.1, Toxic Granulation Slight, Dohle Bodies Slight, Platelet Estimate Normal, Plt Morphology Comment Normal, RBC Morphology N/A, Macrocytosis Slight, Tear Drop Cells Slight 11/25/21 14:45: PHA Creatinine Clear 105.09, Sodium 137, Potassium 4.2, Hbfdbqeu568, Carbon Dioxide 22.6, BUN 14, Creatinine 0.73, [...] % (Auto) 71.5, Lymph % (Auto) 19.6, Brewster % (Auto) 7.6, Eos % (Auto) 0.4, Baso % (Auto) 0.9, Neut # (Auto) 6.2, Lymph # (Auto) 1.7, Brewster # (Auto) 0.7, Eos # (Auto) 0.0, [...] at [facility] in [place], [place]; however, due to insurance reasons the patient transferredcare to [facility]. In reviewing notes from her prior [...] do not have records from this from [facility] in [place]. I am requesting this to evaluate her [...] testing returned negative from prior physicians at [facility]. BRCA testing negative Follow-up September is [...] We will review her prior MRI from [facility] in May 2021 in comparison to most [...] significant toxicities. MRI was reviewed and [facility] tumor board with Dr. Reza and [...] for coordination of care (as documented) and ewyj-vp-dhek counseling of patient and/or family. Dictated By: Kallie Chang MD DD/ 1401 Signed By: <Electronically signed by MD Kallie Chang> 12/03/21 1414 [facility] Work Phone: 1([phone]) 426-556604-28-2022 Progress note Author Kallie Chang [facility] November 13, 2021 3:34pm Note Date/Time November 12, 2021 3:0 7pm [facility] [place] [id number] Hem/Onc Follow Up Note - OP Signed Patient: Tenisha Hancock MR#: [id number] : 1975 Acct:[id number] Age/Sex: 46 / F Type: REG RCR [...] overall good. BRCA testing was done through [employer] and is negative. She does have left [...] I willdefer to his impression and recommendations. 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 This is a 46-year-old female who works at [employer] with triple negative breast cancer, referred for neoadjuvant chemotherapy. Mammogramon on April 22, 2021 showed 3 new focal masses with the largest measuring 2 cm in size in the right breast. 2 additional lesions measuring 1 cm and a second 0.9 cm were also seen. The patient was referred for biopsy. Needle biopsy showed triple negative breast cancer, ER negative, SC negative, and H ER 2 -. The patient was referred to Dr. Ismael Red for Coxvic-z-Jton which she has had placed. She [facility]. Because of insurance reasons, she will be getting her treatment here at [facility]. She has had echocardiography as well. According the patient an MRI was obtained prior to neoadjuvant therapy while she was at [facility] we are requesting this prior study. She [...] showed triple negative breast cancer, ER negative, SC negative, and HER 2 -. The patient was referred to Dr. Ismael Red for Upafts-u-Uiuh which she has had placed. She has [facility]. Because of insurance reasons, she will be getting her treatment here at [facility]. She has had echocardiography as [...] 9 cycles --Original breast MRI obtained from [facility] from May 2021, follow-up breast MRI performed [...] Allergies Allergy (Verified 10/22/21 10:19) Home Medications phuwcyq-lukwzraqkqppc-kfediyfi 250 mg-250 mg-65 mg tablet (Excedrin Migraine) [...] Left breast without masses, left upper chest Ddbwbk-o-Ewbb in place and nontender. No axillary fullness [...] Creatinine Clear 145.60, Sodium 136, Potassium 3.6, Qwsxggaf795, Carbon Dioxide 23.3, BUN 7 L, Creatinine [...] at [facility] in [place], [place]; however, due to insurance reasons the patient transferredcare to [facility] at [facility]. In reviewing notes from [...] do not have records from this from [facility] in [place]. I am requesting this to evaluate her [...] testing returned negative from prior physicians at [facility]. BRCA testing negative Follow-up September is [...] We will review her prior MRI from [facility] in May 2021 in comparison to most [...] significant toxicities. MRI was reviewed and [facility] tumor board with Dr. Reza and [...] for coordination of care (as documented) and emua-yn-upfd counseling of patient and/or family. Dictated By: Kallie Chang MD DD/ 1507 Signed By: <Electronically signed by MD Kallie Chang> 11/13/21 7789 [facility] Work Phone: 1([phone]) 597-468504-06-2022 Progress note Author Kallie Chang [facility] October 22, 2021 4:22pm Note Date/Time October 22, 2021 10:[address] [facility] [place] [address] Hem/Onc Follow Up Note - OP Signed Patient: Tenisha Hancock MR#: [id number] : 1975 Acct:[id number] Age/Sex: 46 / F Type: REG RCR [...] her care for surgical evaluation by Dr. Rzea and I will place consult for him [...] overall good. BRCA testing was done through [employer] and is negative. She does have left [...] I willdefer to his impression and recommendations. 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 This is a 46-year-old female who works at [employer] with triple negative breast cancer, referred for neoadjuvant chemotherapy. Mammogramon on April 22, 2021 showed 3 new focal masses with the largest measuring 2 cm in size in the right breast. 2 additional lesions measuring 1 cm and a second 0.9 cm were also seen. The patient was referred for biopsy. Needle biopsy showed triple negative breast cancer, ER negative, SC negative, and H ER 2 -. The patient was referred to Dr. Ismael Red for Kzjuum-w-Ihml which she has had placed. She has [facility]. Because of insurance reasons, she will be getting her treatment here at [facility]. She has had echocardiography as well. According the patient an MRI was obtained prior to neoadjuvant therapy while she was at [facility] we are requesting this prior study. She [...] showed triple negative breast cancer, ER negative, SC negative, and HER 2 -. The patient was referred to Dr. Ismael Red for Dxjdex-j-Kjos which she has had placed. She has [facility]. Because of insurance reasons, she will be getting her treatment here at [facility]. She has had echocardiography as [...] 9 cycles --Original breast MRI obtained from [facility] from May 2021, follow-up breast MRI performed [...] Allergies Allergy (Verified 10/22/21 10:19) Home Medications dsnuxsj-tzbekaoysaqda-pqdwuavi 250 mg-250 mg-65 mg tablet (Excedrin Migraine) [...] lymphadenopathy. Left breast withoutmasses, left upper chest Pqgeqj-s-Euaj in place and nontender. No axillary fullness [...] H, MCHC 33.7, RDW 16.7 H, Plt Cdccm161 L, MPV 7.1, Nucleated RBC % (auto) [...] at [facility] in [place], [place]; however, due to insurance reasons the patient transferredcare to [facility] at [facility]. In reviewing notes from [...] do not have records from this from [facility] in [place]. I am requesting this to evaluate her [...] testing returned negative from prior physicians at [facility]. BRCA testing negative Follow-up September is [...] We will review her prior MRI from [facility] in May 2021 in comparison to most [...] significant toxicities. MRI was reviewed and [facility] tumor board with Dr. Reza and [...] management Moderate complexity visit for discussion and [facility] tumor board, review of MRI [...] for coordination of care (as documented) and dozv-kd-pefi counseling of patient and/or family. Dictated By: Kallie Chang MD DD/ 1028 Signed By: <Electronically signed by MD Kallie Chang> 10/22/21 1628 [facility] Work Phone: 1([phone]) [phone] Progress note Author Kallie Chang [facility] October 09, 2021 2:48pm Note Date/Time October 08, 2021 11: 37am [facility] [place] [address] Hem/Onc Follow Up Note - OP Signed Patient: Tenisha Hancock MR#: [id number] : 1975 Acct:[id number] Age/Sex: 46 / F Type: REG RCR [...] overall good. BRCA testing was done through [employer] and is negative. She does have left [...] I willdefer to his impression and recommendations. 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 This is a 46-year-old female who works at [employer] with triple negative breast cancer, referred for neoadjuvant chemotherapy. Mammogramon on April 22, 2021 showed 3 new focal masses with the largest measuring 2 cm in size in the right breast. 2 additional lesions measuring 1 cm and a second 0.9 cm were also seen. The patient was referred for biopsy. Needle biopsy showed triple negative breast cancer, ER negative, SC negative, and H ER 2 -. The patient was referred to Dr. Ismael Red for Cejizf-a-Ndnb which she has had placed. She has [facility]. Because of insurance reasons, she will be getting her treatment here at [facility]. She has had echocardiography as well. According the patient an MRI was obtained prior to neoadjuvant therapy while she was at [facility] we are requesting this prior study. She [...] showed triple negative breast cancer, ER negative, SC negative, and HER 2 -. The patient was referred to Dr. Ismael Red for Sxscfq-q-Elnk which she has had placed. She has [facility]. Because of insurance reasons, she will be getting her treatment here at [facility]. She has had echocardiography as [...] 9 cycles --Original breast MRI obtained from [facility] from May 2021, follow-up breast MRI performed [...] PO Q6H PRN 07/03/21 [History Confirmed 10/08/21] nquuien-ifpettqanhhds-uahdxdpe 250 mg-250 mg-65 mg tablet (Excedrin Migraine) [...] Left breast without masses, left upper chest Xtwjld-h-Dcio in place and nontender. No axillary fullness [...] Creatinine Clear 110.24, Sodium 136, Potassium 3.7, Drghmqem242, Carbon Dioxide 22.8, BUN 7 L, Creatinine [...] % (Auto) 65.5, Lymph % (Auto) 30.1, Brewster % (Auto) 3.7, Eos % (Auto) 0.4, Baso % (Auto) 0.3, Neut # (Auto) 4.0, Lymph # (Auto) 1.8, Brewster # (Auto) 0.2, Eos # (Auto) 0.0, [...] at [facility] in [place], [place]; however, due to insurance reasons the patient transferredcare to [facility]. In reviewing notes from her prior [...] do not have records from this from [facility] in [place]. I am requesting this to evaluate her [...] testing returned negative from prior physicians at [facility]. BRCA testing negative Follow-up September is [...] We will review her prior MRI from [facility] in May 2021 in comparison to most [...] for coordination of care (as documented) and naqh-hl-ykln counseling of patient and/or family. Dictated By: Kallie Chang MD DD/ 1136 Signed By: <Electronically signed by MD Kallie Chang> 10/09/21 1448 [facility] Work Phone: [phone]) 282-803403-09-2022 Progress note Author Kallie Chang [facility] September 24, 2021 11:25am Note Date/Time September 24, 2021 8:11 am [facility] [address] [address] Hem/Onc Follow Up Note - OP Signed Patient: Tenisha Hancock MR#: [id number] : 1975 Acct:[id number] Age/Sex: 46 / F Type: REG RCR [...] overall good. BRCA testing was done through [employer] and is negative. She does have left [...] I willdefer to his impression and recommendations. 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 This is a 46-year-old female who works at [employer] with triple negative breast cancer, referred for neoadjuvant chemotherapy. Mammogramon on April 22, 2021 showed 3 new focal masses with the largest measuring 2 cm in size in the right breast. 2 additional lesions measuring 1 cm and a second 0.9 cm were also seen. The patient was referred for biopsy. Needle biopsy showed triple negative breast cancer, ER negative, SC negative, and H ER 2 -. The patient was referred to Dr. Ismael Red for Yvsevm-p-Klgx which she has had placed. She has [facility]. Because of insurance reasons, she will be getting her treatment here at [facility]. She has had echocardiography as well. According the patient an MRI was obtained prior to neoadjuvant therapy while she was at [facility] we are requesting this prior study. She [...] showed triple negative breast cancer, ER negative, SC negative, and HER 2 -. The patient was referred to Dr. Ismael Red for Qclhyi-p-Ijum which she has had placed. She has [facility]. Because of insurance reasons, she will be getting her treatment here at [facility]. She has had echocardiography as [...] PO Q6H PRN 07/03/21 [History Confirmed 09/24/21] fadanfl-yxmqhiyyrqyow-cqeespqu 250 mg-250 mg-65 mg tablet (Excedrin Migraine) [...] Left breast without masses, left upper chest Ruetlq-a-Ptgu in place and nontender. No axillary fullness [...] Impressions We will request outside MRI from [facility] from baseline. - Other Results Results/Comments: Prior notes from [facility] CT scan showed echocardiogram 06/19/2021 [...] at [facility] in [place], [place]; however, due to insurance reasons the patient transferredcare to [facility]. In reviewing notes from her prior [...] do not have records from this from [facility] in [place]. I am requesting this to evaluate her [...] testing returned negative from prior physicians at [facility]. BRCA testing negative Today in follow-up [...] for coordination of care (as documented) and gnog-yu-gxgw counseling of patient and/or family. Dictated By: Kallie Chang MD DD/ Signed By: <Electronically signed by MD Kallie Chang> 09/24/21 1125 [facility] Work Phone: 1([phone]) 292-274302-28-2022 Evaluation note* Encounter Date Diagnosis Assessment Notes [...] investigation. Aug, Cervical spondylosis (ICD-10 - M47.812) [employer] Other 02-02-2022 Progress note Author Salbador Phoenix [facility] August 20, 2021 2:47pm Note Date/Time August 20, 2021 2 :45pm [facility] [place] [id number] Hem/Onc Follow Up Note - OP Signed Patient: Tenisha Hancock MR#: [id number] : 1975 Acct:[id number] Age/Sex: 46 / F Type: REG RCR [...] overall good. BRCA testing was done through [employer] and is negative. She does have left [...] I willdefer to his impression and recommendations. YAKUTAT: This is a 46 year old female, [...] showed triple negative breast cancer, ER negative, SC negative, and HER 2-. The patient was referred to Dr. Ismael Red for Qeqpnt-v-Wlxq which she has had placed. She [facility]. Because of insurance reasons, she will be getting her treatment here at [facility]. She has had echocardiography as [...] 10 point review of systems is negative. [facility] - Medical History Medical History: Medical [...] PO Q6H PRN 07/03/21 [History Confirmed 08/20/21] ournjev-pmyqbufgetjbn-nktrtkdw 250 mg-250 mg-65 mg tablet (Excedrin Migraine) [...] % (Auto) 58.0, Lymph % (Auto) 36.6, Brewster % (Auto) 3.9, Eos % (Auto) 1.0, Baso % (Auto) 0.5, Neut # (Auto) 3.2, Lymph # (Auto) 2.0, Brewster # (Auto) 0.2, Eos # (Auto) 0.1, [...] at [facility] in [place], [place]; however, due to insurance reasons the patient transferredcare to [facility]. She commenced neoadjuvant Carboplatin/Paclitaxel/Pembrolizumab therapy on [...] for coordination of care (as documented) and cloy-mq-pddp counseling of patient and/or family. Dictated By: Salbador Phoenix MD DD/ 40 Signed By: <Electronically signed by MD Salbador Phoenix> 08/20/21 144 [facility] Work Phone: 1(160) 420-201001-13-2022 Progress note Author Jazmin [facility] July 31, 2021 3:54pm Note Date/Time July 31, 2021 3 :07pm [facility] [place] [address] Hem/Onc Follow Up Note - OP Signed Patient: Tenisha Hancock MR#: [id number] : 1975 Acct:[id number] Age/Sex: 46 / F Type: REG RCR [...] showed triple negative breast cancer, ER negative, SC negative, and HER 2 -. The patient was referred to Dr. Ismael Red for Dbwbcy-q-Smto which she has had placed. She [facility]. Because of insurance reasons, she will be getting her treatment here at [facility]. She has had echocardiography as [...] 10 point review of systems is negative. [facility] - Medical History Medical History: Medical [...] PO Q6H PRN 07/03/21 [History Confirmed 07/31/21] rsuovoz-dcsqrhozotlxx-duejadoi 250 mg-250 mg-65 mg tablet (Excedrin Migraine) [...] 07/16/21 12:50 Outside Labs: Outside labs from [facility] scanned in chart; no significant cytopenias or abnormalities (WBC- 8.0; Hgb 12.0; normal platelets; Normal electrolytes; renal/hepatic fxn) Assessment and Plan (1) Breast cancer Patient is a 46-year-old female presenting with 3 discernible masses by mammography (04/22/2021) with needle biopsy confirming triple negative breast cancer. She was initially see in consultation by Dr. Smith at [facility] in [place], [place]; however, due to insurance reasons the patient transferredcare to [facility]. She commenced neoadjuvant Carboplatin/Paclitaxel/Pembrolizumab therapy on [...] scans ofthe chest/abdomen/pelvis on 07/16/2021 here at [facility]. There was no obvious [...] [facility] [...] for coordination of care (as documented) and tiko-qy-qjti counseling of patient and/or family. Dictated By: Jazmin Monsivais APRN DD/ 1454 Signed By: <Electronically signed by PETE Monsivais> 07/31/21 1554 [facility] Work Phone: 1([phone]) 511-448801-13-2022 Hospital Discharge instructionsAmbulatory Orders* Imaging on Disk Time Frame: 1 Day, Location: Determined By Patient * RISE Order Time Frame: 07/31/21, Location: Determined By Patient [facility] Work Phone: 1(321) 811-267312-28-2021 Progress note Author Salbador Phoenix [facility] July 15, 2021 1:32pm Note Date/Time July 15, 2021 1:28pm [facility] [place] [address] Hem/Onc Follow Up Note - OP Signed Patient: Tenisha Hancock MR#: [id number] : 1975 Acct:[id number] Age/Sex: 46 / F Type: REG RCR [...] is a 46-year-old female who works at [employer] who was referred here with [...] showed triple negative breast cancer, ER negative, SC negative, and H ER 2 -. The patient was referred to Dr. Ismael Red for Nnzmow-o-Mzwz which she has had placed. She has seen my colleague Dr. Smith at the [facility] who recommended neoadjuvant chemotherapy and immunotherapy. Because of insurance reasons, she will be getting her treatment here at [facility]. She has had echocardiography as [...] PO Q6H PRN 07/03/21 [History Confirmed 07/15/21] egkfrka-ryyhhiwqrkufh-qzmunbcc 250 mg-250 mg-65 mg tablet (Excedrin Migraine) [...] % (Auto) 68.7, Lymph % (Auto) 25.5, Brewster % (Auto) 3.9, Eos % (Auto) 1.0, Baso % (Auto) 0.9, Neut # (Auto) 6.9, Lymph # (Auto) 2.6, Brewster # (Auto) 0.4, Eos# (Auto) 0.1, Baso [...] July 29, 2021. The patient has her Jyluad-u-Zngj and and has had echocardiography. We will [...] for coordination of care (as documented) and twyn-kv-ffdv counseling of patient and/or family. Dictated By: Salbador Phoenix MD DD/ 1327 Signed By: <Electronically signed by MD Salbador Phoenix> 07/15/21 1332 [facility] Work Phone: 1(764) 671-837812-21-2021 Consult note Author Salbador Phoenix [facility] July 08, 2021 3:14pm Note Date/Time July 08, 2021 2:58pm [facility] [place] [address] Hem/Onc Consult Note - OP Signed Patient: Tenisha Hancokc MR#: [id number] : 1975 Acct:[id number] Age/Sex: 46 / F Type: REG RCR [...] is a 46-year-old female who works at [employer] who is referred here with [...] showed triple negative breast cancer, ER negative, SC negative, and H ER 2 -. The patient was referred to Dr. Ismael Red for Irkxzx-s-Npez which she has had placed. She has seen my colleague Dr. Smith at the [facility] who recommended neoadjuvant chemotherapy and immunotherapy. Because of insurance reasons, she will be getting her treatment here at [facility]. She has had echocardiography as well. She does have a palpable breast mass. It is in the lower mid quadrant of the right breast. [facility] - Medical History Medical History: Medical [...] PO Q6H PRN 07/03/21 [History Confirmed 07/08/21] bpuqdgx-jkxatnjferlyi-fgwnytcv 250 mg-250 mg-65 mg tablet (Excedrin Migraine) [...] cancer. She has seen medical oncology at [facility] who has recommended neoadjuvant chemotherapy and [...] at this time. The patient has her Khvwnn-v-Vtmp and and has had echocardiography. We will refer her for chemotherapy education and literature. She was requesting PET scan which is reasonable. I will also recommend genetic testing which can be done through [employer]. Our treatment plan will be pembrolizumab every [...] for coordination of care (as documented) and gpxw-hg-bnzk counseling of patient and/or family. Dictated By: Salbador Phoenix MD DD/ 1457 Signed By: <Electronically signed by MD Salbador Phoenix> 07/08/21 4880 [facility] Work Phone: Consult note Author Stacie Thomas [facility] March 19, 2022 10:56am Note Date/Time March 18, 2022 3: [address] [place] [address] [place] [address] Rad Onc Consult Note - OP Signed Patient: Tenisha Hancock MR#: [id number] : 1975 Acct:[id number] Age/Sex: 46 / F Type: REG RCR [...] 0 out of 5 lymph nodes involved. [id number]. In review of her operative note as [...] ductal carcinoma, 9 mm, provisional grade 3, ER/SC negative and HER2 negative. Per the available notes her BRCA testing was done through [employer] and was negative. Also appears the right breast mass was palpable in the lower mid quadrant of the breast. [facility]. Due to insurance reasons she received her systemic therapy here at [facility]. PET/CT was denied by insurance. CT scan of the chest abdomen pelvis on July 16, 2021 was negative for metastatic disease. Her clinical stage at presentation was cT2N0. June 11, 2021 patient did undergo an MRI in [place]. I do not have that report available [...] 0 out of 5 lymph nodes negative. [id number]. Pathology was negative for LVSI. Of note [...] work. Has no other breast related complaints. [facility] - Medical History Medical History: Medical [...] Allergies Allergy (Verified 03/12/22 08:56) Home Medications uyyuotk-shuvirzyrzjgf-kplgnzqj 250 mg-250 mg-65 mg tablet (Excedrin Migraine) [...] Stacie Thomas MD> 03/19/22 1056 [facility] Work Phone: Evaluation + Plan note No data available for this section General Surgery [place] Evaluation note* Diagnosis History of breast cancer- Primary Personal history of malignant neoplasm of breast Breast asymmetry following reconstructive surgery Disproportion of reconstructed breast Malignant neoplasm of right female breast, unspecified estrogen receptor status, unspecified site of breast (HCC)- [facility] Malignant neoplasm of right female breast, unspecified estrogen receptor status, unspecified site of breast (HCC) documented in this encounter [employer] Phone: evaluation note* Diagnosis Status post breast reconstruction- Primary Breast replaced by other means Status post breast lumpectomy Other postprocedural status Abnormal mammogram Abnormal mammogram, unspecified Malignant neoplasm of right female breast, unspecified estrogen receptor status, unspecified site of breast (HCC) documented in this encounter [employer] Phone: evaluation note* Diagnosis Malignant neoplasm of right female breast, unspecified estrogen receptor status, unspecified site of breast (HCC) documented in this encounter [employer] Phone: evalocyicu note* Diagnosis Onset Date Resolution Status Breast cancer chronic Encounter for antineoplastic immunotherapy chronic Encounter for chemotherapy management chronic 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 Chemotherapy-induced neutropenia resolved [facility] [employer] [facility] [employer] Work Phone: Evaluation note* Diagnosis Onset Date Resolution Status 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 acute Arthralgia of multiple sites, bilateral acute Encounter for coordination of complex care acute Breast cancer chronic Encounter for antineoplastic immunotherapy chronic Encounter for chemotherapy management chronic 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 Chemotherapy-induced neutropenia resolved [facility] [employer] Work Phone: Evaluation note* Diagnosis Onset Date Resolution Status 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 chronic Arthralgia of multiple sites, bilateral chronic Breast cancer chronic Encounter for antineoplastic immunotherapy chronic Encounter for chemotherapy management chronic Encounter for coordination of complex care chronic 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 Chemotherapy-induced neutropenia resolved [facility] [employer] Work Phone: Evaluation note* Diagnosis Onset Date Resolution Status 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 chronic Breast cancer chronic Encounter for antineoplastic immunotherapy chronic Encounter for chemotherapy management chronic Encounter for coordination of complex care chronic 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 Arthralgia of multiple sites, bilateral resolved Chemotherapy-induced neutropenia resolved [facility] [employer] Work Phone: Evaluation note* Diagnosis Onset Date Resolution Status Hypothyroidism (acquired) ac jania 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 chronic Breast cancer chronic Encounter for antineoplastic immunotherapy chronic Encounter for chemotherapy management chronic Encounter for coordination of complex care chronic 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 Arthralgia of multiple sites, bilateral resolved Chemotherapy-induced neutropenia resolved [facility] Work Phone: Evaluation noteNo assessment information available [facility] Work Phone: Evaluation note* Diagnosis Left wrist pain- Primary Pain in joint, forearm Pain of left thumb [facility] [...] in joint, forearm [facility] [...] of right toe [facility] [...] unspecified trigger [facility] Diagnosis Moderate episode of recurrent major depressive disorder (CMS/HCC)- Primary 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 (CMS/HCC) Glucocorticoid deficiency Other hyperlipidemia Chronic left-sided low back pain without sciatica- [...] unspecified whether esophagitis present- Primary Other hyperlipidemia Class 1 obesity due to excess calories without serious comorbidity with body mass index (BMI) of 30.0 to 30.9 in adult Moderate episode of recurrent major depressive disorder (CMS/HCC) Seasonal allergic rhinitis, unspecified trigger Anxiety and depression (CMS/HCC) Counseling for estrogen replacement therapy Need for prophylactic hormone replacement therapy (postmenopausal) Hot flashes [facility] N[facility]ative - Reported* Type Description Date Medical History GERD (gastroesophageal reflux di sease) Medical History Depression Medical History Breast Cancer Surgical History gallbladder Surgical History Foot Surgery Hospitalization History gallbladder [employer] [facility] Phone: [facility] Work Phone: [facility] Work Phone: Hospital Discharge instructionsAmbulatory Orders* RISE Order Time Frame: 1 Day, Location: Determined By Patient [facility] Work Phone: Hospital Discharge instructions No data available for this section General Surgery [place] Progress note Author Kallie Chang [facility] March 12, 2022 4:36pm Note Date/Time March 12, 2022 9: 49[facility] at [address] [address] Hem/Onc Follow Up Note - OP Signed Patient: Tenisha Hancock MR#: [id number] : 1975 Acct:[id number] Age/Sex: 46 / F Type: REG RCR [...] right mastopexy on 02/17/2022 [address] Drs. Saunders/Drew ([facility]). Her pathology returned with no evidence [...] Simons and has an appointment scheduled at [facility] to discuss josep flap surgery as [...] overall good. BRCA testing was done through [employer] and is negative. She does have left [...] I willdefer to his impression and recommendations. 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 This is a 46-year-old female who works at [employer] with triple negative breast cancer, referred for neoadjuvant chemotherapy. Mammogramon on April 22, 2021 showed 3 new focal masses with the largest measuring 2 cm in size in the right breast. 2 additional lesions measuring 1 cm and a second 0.9 cm were also seen. The patient was referred for biopsy. Needle biopsy showed triple negative breast cancer, ER negative, SC negative, and H ER 2 -. The patient was referred to Dr. Ismael Red for Qrhyow-p-Bigc which she has had placed. She has seen my colleague Dr. Smith at the [facility] recommended neoadjuvant chemotherapy and immunotherapy. Because of insurance reasons, she will be getting her treatment here at [facility]. She has had echocardiography as well. According the patient an MRI was obtained prior to neoadjuvant therapy while she was at [facility] we are requesting this prior study. She [...] showed triple negative breast cancer, ER negative, SC negative, and HER 2 -. The patient was referred to Dr. Ismael Red for Jbihnz-a-Nhli which she has had placed. She has seen my colleague Dr. Smith at the [facility] recommended neoadjuvant chemotherapy and immunotherapy. Because of insurance reasons, she will be getting her treatment here at [facility]. She has had echocardiography as [...] 9 cycles --Original breast MRI obtained from [facility] from May 2021, follow-up breast MRI performed [...] preoperatively in late December. 2. 02/17/[address] [facility], Drs. Suanders/Drew: needle localized lumpectomy with oncoplastic reconstruction of [...] Allergies Allergy (Verified 03/12/22 08:56) Home Medications uwzivau-qtpgynptamsdx-gqhqwmqp 250 mg-250 mg-65 mg tablet (Excedrin Migraine) [...] therapy Copies to: MD Meghana Wilson MD, FAC~ Weight: 196 lb Performed By: ARNOLD Alexis [...] at [facility] in [place], [place]; however, due to insurance reasons the patient transferredcare to [facility]. In reviewing notes from her prior [...] do not have records from this from [facility] in [place]. I am requesting this to evaluate her [...] testing returned negative from prior physicians at [facility]. BRCA testing negative Follow-up September is [...] We will review her prior MRI from [facility] in May 2021 in comparison to most [...] significant toxicities. MRI was reviewed and [facility] tumor board with Dr. Reza and [...] small focus of residual DCIS, ER 5%, SC 0%. Referring for adjuvant radiation then we [...] for coordination of care (as documented) and viap-ap-eabb counseling of patient and/or family. Dictated By: Kallie Chang MD DD/ 0948 Signed By: <Electronically signed by MD Kallie Chang> 03/12/22 1636 [facility] Work Phone: Progress note Author Kallie Chang [facility] September 18, 2022 10:28pm Note Date/Time September 18, 2022 1:44 pm [facility] [place] [address] Hem/Onc Follow Up Note - OP Signed Patient: Tenisha Hancock MR#: [id number] : 1975 Acct:[id number] Age/Sex: 47 / F Type: REG RCR [...] hydrocortisone 20mg am/10mg pm. Will f/u with [employer] next week to review symptoms. We may [...] right mastopexy on 02/17/[address] Saunders/Drew ([facility]). Her pathology returned with no evidence [...] Simons and has an appointment scheduled at [facility] to discuss josep flap surgery as [...] overall good. BRCA testing was done through [employer] and is negative. She does have left [...] I willdefer to his impression and recommendations. YAKUTAT: This is a now 47 year old female, recently diagnosed with triple negative right breast cancer; currently undergoing neoadjuvant pembrolizumab, carboplatin AUC 4and weekly paclitaxel x6 cycles, which commenced: 07/22/2021. This is a 46-year-old female who works at [employer] with triple negative breast cancer, referred for neoadjuvant chemotherapy. Mammogramon on April 22, 2021 showed 3 new focal masses with the largest measuring 2 cm in size in the right breast. 2 additional lesions measuring 1 cm and a second 0.9 cm were also seen. The patient was referred for biopsy. Needle biopsy showed triple negative breast cancer, ER negative, SC negative, and H ER 2 -. The patient was referred to Dr. Ismael Red for Lldjya-a-Yybl which she has had placed. She has seen my colleague Dr. Smith at the [facility] recommended neoadjuvant chemotherapy and immunotherapy. Because of insurance reasons, she will be getting her treatment here at [facility]. She has had echocardiography as well. According the patient an MRI was obtained prior to neoadjuvant therapy while she was at [facility] we are requesting this prior study. She [...] showed triple negative breast cancer, ER negative, SC negative, and HER 2 -. The patient was referred to Dr. Ismael Red for Xsqudz-s-Hqey which she has had placed. She has seen my colleague Dr. Smith at the [facility] recommended neoadjuvant chemotherapy and immunotherapy. Because of insurance reasons, she will be getting her treatment here at [facility]. She has had echocardiography as [...] 9 cycles --Original breast MRI obtained from [facility] from May 2021, follow-up breast MRI performed [...] preoperatively in late December. 2. 02/17/[address] [facility], Drs. Saunders/Shantal: needle localized lumpectomy with [...] Allergies Allergy (Verified 09/18/22 13:38) Home Medications fjzsvld-xxekpbbboltlo-exmvtrie 250 mg-250 mg-65 mg tablet (Excedrin Migraine) [...] % (Auto) 91.1, Lymph % (Auto) 6.2, Brewster % (Auto) 2.3, Eos % (Auto) 0.1, Baso % (Auto) 0.3, Nucleat RBC Rel Count 0.1, Neut # (Auto) 10.4 H, Lymph # (Auto) 0.7 L, Brewster # (Auto) 0.3, Eos # (Auto) 0.0, [...] at [facility] in [place], [place]; however, due to insurance reasons the patient transferredcare to [facility] at [facility]. In reviewing notes from [...] do not have records from this from [facility] in [place]. I am requesting this to evaluate her [...] testing returned negative from prior physicians at [facility]. BRCA testing negative Follow-up September is [...] We will review her prior MRI from [facility] in May 2021 in comparison to most [...] significant toxicities. MRI was reviewed and [facility] tumor board with Dr. Reza and [...] small focus of residual DCIS, ER 5%, SC 0%. Completed adjuvant radiation then we resumed [...] with sentinel lymph node biopsy 02/17/2022 in [place]. Adjuvant radiation completed 05/04-06/16/2022. Total of 30 [...] for coordination of care (as documented) and hyhw-su-ilnc counseling of patient and/or family. Dictated By: Kallie Chang MD DD/ 1343 Signed By: <Electronically signed by MD Kallie Chang> 09/18/22 2220 [facility] Work Phone: Progress note No data available for this section General Surgery [place] Reason for visit NarrativeReferral Dr. Phoenix T12 [facility] [employer] Other Summary Purpose Family History No Family History Records Found Relationship Condition Age at Onset Recorded Date/T vanessa brother Malignant neoplasm of lung Unknown father Malignant neoplasm Unknown Not Specified Chronic obstructive pulmonary disease Un known Relationship Condition Age at Onset Recorded Date/T vanessa brother Malignant neoplasm of lung Unknown father Malignant neoplasm Unknown Not Specified Chronic obstructive pulmonary disease Un known Unknown Relationship Condition Age at Onset Recorded Date/T vanessa brother Malignant neoplasm of lung Unknown father Malignant neoplasm Unknown mother Chronic obstructive pulmonary disease Unk nown Unknown Advance Directives No Advanced Directives Records Found Advance Directive Response Recorded Date/ Time Advance Directives No July 24, 2020 3:25pm Advance Directive Response Recorded Date/ Time Advance Directives No July 24, 2020 2:25pm Reason for Referral Specialty Diagnoses / Procedures Referred By Contac t Referred To Contact Radiology Diagnoses Malignant neoplasm of right female breast, unspecified estrogen receptor status, unspecified site of breast (HCC) Procedures MRI BREAST BILATERAL W WO CONTRAST Diana Murguia P, DO [address] [facility] [address] [place] [address] Referral ID Status Reason Start Date Expiration Date Visits Re quested Visits Authorized [id number] Closed 02/03/2022 01/28/2023 1 1 Chief Complaint [...] sites, bilateral Chemotherapy-induced neutropenia Chief Complaint r92.8 Chief Complaint Admit Date Z87.898 Z85.3 Z80.9 October 05, 2024 9:3 5am Additional Source Comments Source Comments (unrecognize d section and content) In the event this informatio n is protected by the Federal Confidentiality of Alcohol and Drug Abuse Patient Records regulations: The Federal rules restrict any use of the information to criminally investigate or prosecute any alcohol or drug abuse patient.[facility] Hospital[facility] the event this information is protected by the Federal Confidentiality of Alcohol and Drug Abuse Patient Records regulations: The Federal rules restrict any use of the information to criminally investigate or prosecute any alcohol or drug abuse patient.[facility] HospitalIn the event this information is protected by the Federal Confidentiality of Alcohol and Drug Abuse Patient Records regulations: The Federal rules restrict any use of the information to criminally investigate or prosecute any alcohol or drug abuse patient.[facility] HospitalIn the event this information is protected by the Federal Confidentiality of Alcohol and Drug Abuse Patient Records regulations: The Federal rules restrict any use of the information to criminally investigate or prosecute any alcohol or drug abuse patient.[facility] Reason for Visit (unrecogniz ed section and content) Reason Comments Appointment Reason Comments Consult Specialty Diagnoses / Procedures Referred By Ramirez t Referred To Contact Radiology Diagnoses Malignant neoplasm of right female breast, unspecified estrogen receptor status, unspecified site of breast (HCC) Procedures MRI BREAST BILATERAL W WO CONTRAST Diana Murguia, DO [address] [address] Referral ID Status Reason Start Date Expiration Date Visits Re quested Visits Authorized [id number] Closed 02/03/2022 01/28/2023 1 1 Specialty Diagnoses / Procedures Referred By Ramirez t Referred To Contact Diagnoses Malignant neoplasm of right female breast, unspecified estrogen receptor status, unspecified site of breast (HCC) Malignant neoplasm of right female breast, unspecified estrogen receptor status, unspecified site of breast (HCC) [C50.911] Procedures SC MASTECTOMY, PARTIAL SC OFFICE/OUTPT VISIT,PROCEDURE ONLY SC BREAST REDUCTION NEEDLE DIRECTED @ 800 RIGHT BREAST LUMPECTOMY WITH SENTINEL NODE BIOPSY @ 830 WITH FROZEN SECTION AND POSSIBLE AXILLARY LYMPH NODE DISSECTION ONCOPLASTIC RECONSTRUCTION RIGHT BREAST WITH JOSE R INCISIONAL VAC AND PEC BLOCK Diana Murguia, DO [address] [address] [facility] [employer] [facility] [address] [place] [address] Referral ID Status Reason Start Date Expiration Date Visits Re quested Visits Authorized [id number] 1 1 Specialty Diagnoses / Procedures Referred By Contac t Referred To Contact Diagnoses Malignant neoplasm of unspecified site of right female breast Procedures HC NM LYMPHATICS,LYMPH GLAND IMAGING [facility] [address] [place] [address] [facility] [address] [place] [address] Referral ID Status Reason Start Date Expiration Date Visits Re quested Visits Authorized [id number] 1 1 Reason Comments Pain Reason Comments Foot Orthotics Orthotics P/U Reason Comments Follow-up Reason Comments Gynecologic Exam Reason Comments Med Change Request Reason Comments Discus ERT Care Teams (unrecognized sec tion and content) [...] Active Kallie Chang MD Attending Provider Active White Kid Buffer Relationship Specialty Start Date End Date Jasbir Limon MD [address] [place] [place] [address] (Fax) PCP - General 10/28/00 White Kid Buffer Relationship Specialty Start Date End Date Jasbir Limon MD [address] [place] [address] (Fax) PCP - General 10/28/00 White Kid Buffer Relationship Specialty Start Date End Date Jasbir Limon MD [address] [place] [place] [address] (Fax) PCP - General 10/28/00 White Kid Buffer Relationship Specialty Start Date End Date Eliel Hurd [address] [facility], [facility] PCP - General Specialist 02/04/22 White Kid Buffer Relationship Specialty Start Date End Date Eliel Hurd [address] [facility] [place] [address] PCP - General Specialist 02/04/22 White Kid Buffer Relationship Specialty Start Date End Date Eliel Hurd [address] [facility] PCP - General Specialist 02/04/22 Team Status: [...] Active Adam Vickers DO Attending Provider Active White Kid Buffer Relationship Specialty Start Date End Date Shaikh España MD PCP - General Internal Medicine 11/24/22 Team Status: Active Member Role Status Dates Shaikh Patria MD Primary Care Provider Active Team Status: Inactive Member Role Status Chidi Rincon Attending Provider Active Start: 2023 End: January 10, 2024 Shaikh Patria MD Primary Care Provider Active Start: January 10, 2024 End: January 10, 2024 White Kid Buffer Relationship Specialty Start Date End Date Shaikh España MD [address] [place] [address] PCP - General Internal Medicine 10/07/23 White Kid Buffer Relationship Specialty Start Date End Date Shaikh España MD [address] [place] [address] PCP - General Internal Medicine 10/07/23 White Kid Buffer Relationship Specialty Start Date End Date Shaikh España MD [address] [place] [address] PCP - General Internal Medicine 10/07/23 White Kid Buffer Relationship Specialty Start Date End Date Chinmay Muñoz MD [address] [place] [address] PCP - General Family Medicine 06/01/24 Demetra Sparrow NP [address] [place] [address] Nurse Practitioner Family Medicine 06/01/24 White Kid Buffer Relationship Specialty Start Date End Date Chinmay Muñoz MD [address] [place] [address] PCP - General Family Medicine 06/01/24 Demetra Sparrow NP [address] [place] [address] Nurse Practitioner Family Medicine 06/01/24 White Kid Buffer Relationship Specialty Start Date End Date Chinmay Muñoz MD [address] [place] [address] PCP - General Family Medicine 06/01/24 Demetra Sparrow NP [address] [place] [address] Nurse Practitioner Family Medicine 06/01/24 White Kid Buffer Relationship Specialty Start Date End Date Chinmay Muñoz MD [address] [place] [address] PCP - General Family Medicine 06/01/24 Demetra Sparrow NP [address] [place] [address] Nurse Practitioner Family Medicine 06/01/24 White Kid Buffer Relationship Specialty Start Date End Date Shaikh España MD [address] [place] [address] PCP - General Internal Medicine 10/07/23 White Kid Buffer Relationship Specialty Start Date End Date Shaikh España MD [address] [place] [phone] PCP - General Internal Medicine 10/07/23 White Kid Buffer Relationship Specialty Start Date End Date Shaikh España MD [address] [place] [address] PCP - General Internal Medicine 10/07/23 White Kid Buffer Relationship Specialty Start Date End Date Chinmay Muñoz MD [address] [place] [address] PCP - General Family Medicine 06/01/24 Demetra Sparrow NP [address] [place] [address] Nurse Practitioner Family Medicine 06/01/24 Team Status: Active Member Role Status Dates PHYSICIAN NO FAMILY Primary Care Provider Active Team Status: Inactive Member Role Status Dates Chidi Rincon DO Attending Provider Active Start : October 05, 2024 End: October 05, 2024 PHYSICIAN NO FAMILY Primary Care Provider Active Start: October 05, 2024 End: October 05, 2024 White Kid Buffer Relationship Specialty Start Date End Date Chinmay Muñoz MD [address] [place] [address] PCP - General Family Medicine 06/01/24 Shaikh España MD [address] [place] [address] PCP - [employer] 06/18/24 Demetra Sparrow NP [address] [place] [address] Nurse Practitioner Family Medicine 06/01/24 White Kid Buffer Relationship Specialty Start Date End Date Chinmay Muñoz MD [address] [place] [address] PCP - General Family Medicine 06/01/24 Shaikh España MD [address] [place] [address] PCP - [employer] 06/18/24 Demetra Sparrow NP [address] [place] [phone] Nurse Practitioner Family Medicine 06/01/24 INFORMATION SOURCE (unrecogn ized section and content) DATE CREATED AUTHOR 02/03/2022 [facility] DATE CREATED AUTHOR AUTHOR'S ORGANIZ ATION 02/21/2022 [facility] DATE CREATED AUTHOR AUTHOR'S ORGANIZ ATION 03/24/2022 [facility] DATE CREATED AUTHOR AUTHOR'S ORGANIZ ATION 12/02/2022 [facility] DATE CREATED AUTHOR AUTHOR'S ORGANIZ ATION 03/09/2023 [facility] DATE CREATED AUTHOR AUTHOR'S ORGANIZ ATION 12/24/2023 [facility] DATE CREATED AUTHOR AUTHOR'S ORGANIZ ATION 03/11/2024 [facility] DATE CREATED AUTHOR AUTHOR'S ORGANIZ ATION 03/18/2024 [facility] DATE CREATED AUTHOR AUTHOR'S ORGANIZ ATION 10/08/2024 [facility] DATE CREATED AUTHOR AUTHOR'S ORGANIZ ATION 10/27/2024 [facility] EPIC Ordered Prescriptions (unrec ognized section and content) [...] 1047 (Given - Provid er: Valerie Davila APRN - SENIOR ADVISOR) diphenhydrAMINE (BENADRYL) injection 12.5 mg (COMPLETED) 12.5 [...] (NoRateChange - Provider: Valerie Davila APRN - SENIOR ADVISOR)1148 (Paused - Provider: Valerie Davila APRN - SENIOR ADVISOR - Comment: Switch to gravity)1149 (New Bag - Provider: Valerie Davila APRN - SENIOR ADVISOR)1318 (Anesthesia Volume Adjustment - Provider: Valerie Davila APRN - SENIOR ADVISOR)1615 (Stopped - Provider: Heber Baron RN) PRN [...] BE BASED ON THE PRIMARY CLINICAL RECORDS. [facility]. provides no warranty or guarantee of the accuracy or completeness of information in this document.
--- NOTE | 2024-12-15 12:11 | ED_ITS ---
HPI HPI - General Adult General Chief complaint: Urogenital-Female Stated complaint: HEMATURIA, PAINFUL URINATION, VOMITING, DIZZINESS Time Seen by Provider: 12/15/24 12:04 Source: patient Mode of arrival: walk-in Limitations: no limitations History of Present Illness HPI narrative: Patient is a 49-year-old female who is presenting to the ER today for 2 days of dysuria, bilateral lower back pain left slightly worse than the right. Mild nausea no vomiting. Patient works in the [employer] department at [employer]. Patient went to urgent care today and was diagnosed with UTI. Aditi mcfadden is having hematuria. Patient called Dr. Rincon office to follow-up. Patient has not taken any antibiotics yet that were prescribed. Patient has symptoms for 2 days. No fever. No significant pain out of proportion left lower back pain. No vomiting. However somebody in Dr. Rincon office recommended patient come to the ER if symptoms are not improved. However, patient just went to the urgent care earlier this morning and just had a prescription for antibiotic prescribed that she has not taken yet. No other acute complaints or concerns. All systems are negative except as noted/marked. All systems reviewed and otherwise negative. Nurses note and vital signs reviewed and patient is not hypoxic. General: The patient appears well and in no apparent distress. Patient is resting comfortably on cart. Patient is not toxic, lethargic, or listless Skin: Warm, dry, no pallor noted. There is no rash noted. No petechiae, purpura. Head: Normocephalic, atraumatic Eye: Normal conjunctiva, no drainage, EOMI. PERRL Ears, Nose, Mouth, and Throat: oral mucosa is moist. Nares patent. Mouth without vesicles. Cardiovascular: Regular Rate and Rhythm, no murmur, gallop, rub Respiratory: Patient is in no distress, no accessory muscle use, lungs are clear to auscultation, no wheezing, rales or rhonchi Back: Patient currently has no bilateral lumbar tenderness to palpation, non-tender, patient currently has no CVA tenderness bilaterally to percussion. No CT LS midline pain GI: no tenderness to palpation, no masses appreciated. No rebound, guarding, or rigidity noted. No distention. Mild to moderate suprapubic tenderness to palpation.. Musculoskeletal: Patient has full range of motion of all of the extremities, no motor, sensory, or focal neurological deficits Neurological: A&O x4, normal speech Psychiatric: Cooperative Related Data Home Medications ?Medication ?Instructions ?Recorded ?Confirmed citalopram 20 mg tablet 20 mg PO .QD 12/28/22 bupropion HCl 100 mg tablet 100 mg PO DAILY 12/14/23 0 02/01/24 levothyroxine 50 mcg tablet 50 mcg PO DAILY 12/14/23 0 02/01/24 (Synthroid) ondansetron 8 mg disintegrating 8 mg PO Q8H PRN nausea and vomiting 12/14/23 02/01/24 tablet pantoprazole 20 mg tablet,delayed 20 mg PO DAILY 12/1302/01/24 release (Protonix) rosuvastatin 5 mg tablet (Crestor) 5 mg PO DAILY 12/1302/01/24 hydrocortisone 10 mg tablet 10 mg PO DAILY 02/01/24 hydrocortisone 5 mg tablet 5 mg PO .every pm 02/01/24 02/01/24 Previous Rx's ?Medication ?Instructions ?Recorded hydrocodone 5 mg-acetaminophen 325 1 tab PO Q4H PRN pa in #10 tabs 12/15/24 mg tablet ondansetron 4 mg disintegrating 4 mg PO Q4H PRN nausea and 12/15/24 tablet vomiting 3 days #6 tabs Allergies Allergy/AdvReac Type Severity Reaction Status Date / Time No Known Drug Allergies Allergy Verified 03/29/23 07:25 Opioid HPI Opioid Management Most Recent Opioid Data: Last Pain Scale 5 Today, 11:49 [facility] Medical History (Updated 12/15/24 @ 12:11 by Holger Valente MD) Nausea ?R11.0 - Nausea (ICD-10) Lipoma of back ?D17.1 - Benign lipomatous neoplasm of skin and subcutaneous tissue of trunk (ICD-10) Epigastric pain ?R10.13 - Epigastric pain (ICD-10) Anxiety and depression ?F41.9 - Anxiety disorder, unspecified (ICD-10) ?F32.A - Depression, unspecified (ICD-10) Hypopituitarism ?E23.0 - Hypopituitarism (ICD-10) GERD (gastroesophageal reflux disease) ?K21.9 - Gastro-esophageal reflux disease without esophagitis (ICD-10) Hypothyroidism ?E03.9 - Hypothyroidism, unspecified (ICD-10) Migraines ?G43.909 - Migraine, unspecified, not intractable, without status migrainosus (ICD-10) Breast cancer ?C50.919 - Malignant neoplasm of unspecified site of unspecified female breast (ICD-10) Carpal tunnel syndrome ?G56.00 - Carpal tunnel syndrome, unspecified upper limb (ICD-10) TMJ (dislocation of temporomandibular joint) ?S03.00XA - Dislocation of jaw, unspecified side, initial encounter (ICD-10) Upper back pain ?M54.9 - Dorsalgia, unspecified (ICD-10) Neck pain ?M54.2 - Cervicalgia (ICD-10) Low back pain ?M54.50 - Low back pain, unspecified (ICD-10) Osteoarthritis ?M19.90 - Unspecified osteoarthritis, unspecified site (ICD-10) Numbness and tingling ?R20.0 - Anesthesia of skin (ICD-10) ?R20.2 - Paresthesia of skin (ICD-10) High cholesterol ?E78.00 - Pure hypercholesterolemia, unspecified (ICD-10) Surgical History (Updated 12/14/23 @ 13:45 by Sushma Lafleur) History of insertion of central venous access port ?Z95.828 - Presence of other vascular implants and grafts (ICD-10) History of breast biopsy ?Z98.890 - Other specified postprocedural states (ICD-10) History of breast reconstruction ?Z98.890 - Other specified postprocedural states (ICD-10) Hx of cervical spine surgery ?Z98.890 - Other specified postprocedural states (ICD-10) Hx of hemorrhoidectomy ?Z98.890 - Other specified postprocedural states (ICD-10) History of endometrial ablation ?Z98.890 - Other specified postprocedural states (ICD-10) History of carpal tunnel release ?Z98.890 - Other specified postprocedural states (ICD-10) History of loop electrical excision procedure (LEEP) ?Z98.890 - Other specified postprocedural states (ICD-10) S/P lumpectomy of breast ?Z98.890 - Other specified postprocedural states (ICD-10) Hx of tubal ligation ?Z98.51 - Tubal ligation status (ICD-10) H/O foot surgery ?Z98.890 - Other specified postprocedural states (ICD-10) Hx of cholecystectomy ?Z90.49 - Acquired absence of other specified parts of digestive tract (ICD- 10) Family History (Updated 12/14/23 @ 11:58 by Sushma Lafleur) Mother Family history of COPD (chronic obstructive pulmonary disease) Heart disease Cardiac arrhythmia Father Sarcoma Brother Lung cancer Social History (Updated 12/14/23 @ 13:43 by Sushma Lafleur) Within the past year, how often did you have a drink containing alcohol: monthly or less Smoking status: Former smoker Non-prescribed substance use: denies use 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 [employer] Highest level of school completed/degree received: high school graduate Little interest or pleasure in doing things: not at all Feeling down, depressed, or hopeless: not at all Exam Constitutional Vital Signs, click to edit/add: Last Vital Signs Temp 98.7 F 12/15/24 11:49 Pulse 85 12/15/24 11:49 Resp 16 12/15/24 11:49 BP 106/71 12/15/24 11:49 Pulse Ox 98 12/15/24 11:49 O2 Del Method Room Air 12/15/24 11:49 Course Vital Signs Vital signs: Vital Signs Temperature 98.7 F 12/15/24 11:49 Pulse Rate 85 12/15/24 11:49 Respiratory Rate 16 12/15/24 11:49 Blood Pressure 106/71 12/15/24 11:49 Pulse Oximetry 98 12/15/24 11:49 Oxygen Delivery Method Room Air 12/15/24 11:49 Temperature 98.7 F 12/15/24 11:49 Pulse Rate 85 12/15/24 11:49 Respiratory Rate 16 12/15/24 11:49 Blood Pressure 106/71 12/15/24 11:49 Pulse Oximetry 98 12/15/24 11:49 Oxygen Delivery Method Room Air 12/15/24 11:49 Medical Decision Making MDM Narrative Medical decision making narrative: Patient was given the options of treatment in the ER. Patient has not taken any oral antibiotics yet. Patient says that maybe she overreacted, patient came to the ER because her [employer] office recommended she come in because her symptoms were not better and not improved since this morning but she is done nothing to take to help her symptoms. It was recommended the patient have IV, lab work, CT scan of abdomen pelvis to rule out cystitis, UTI, pyelonephritis, kidney stone, or any other acute findings. Patient will be given IV fluids, and IV Rocephin. Ultimately patient did not want to be in the ER for several hours, felt that if she went home and took her antibiotic she probably would be okay. Patient was offered and accepted IM Rocephin injection and she can take her next dose of antibiotic tomorrow. Shared decision making was done. Patient understands she should have IV, lab work, CT scan and treatment. Patient understands she can come back to the ER if she changes her mind. Patient has a functional decision-making capacity to accept IM Rocephin. 2 g were given. Patient was given prescription for Zofran and Buckhannon to use if needed. Patient was prescribed Keflex this morning. Patient very thankful for help, no questions at discharge. Patient's home a several times I feel silly for being here, I probably overreacted I told the patient were happy to perform thorough testing if needed, she declined. Discharge Plan Discharge Chief Complaint: Urogenital-Female Clinical Impression: Hemorrhagic cystitis, Lumbar back pain Patient Disposition: Home, Self-Care Time of Disposition Decision: 12:06 Condition: Fair Prescriptions / Home Meds: New hydrocodone-acetaminophen 5-325 mg tablet 1 tab PO Q4H PRN (Reason: pain) Qty: 10 0RF ondansetron 4 mg tablet,disintegrating 4 mg PO Q4H PRN (Reason: nausea and vomiting) 3 Days Qty: 6 0RF No Action citalopram 20 mg tablet 20 mg PO .QD pantoprazole [Protonix] 20 mg tablet,delayed release (DR/EC) 20 mg PO DAILY levothyroxine [Synthroid] 50 mcg tablet 50 mcg PO DAILY rosuvastatin [Crestor] 5 mg tablet 5 mg PO DAILY ondansetron 8 mg tablet,disintegrating 8 mg PO Q8H PRN (Reason: nausea and vomiting) Rx Instructions: 1st dose 1-2 hr before radiation bupropion HCl 100 mg tablet 100 mg PO DAILY hydrocortisone 10 mg tablet 10 mg PO DAILY hydrocortisone 5 mg tablet 5 mg PO .every pm Print Language: Citizen Of [place] Instructions: Urinary Tract Infection in Women (ED), Acute Low Back Pain (ED) Additional Instructions: Drink water and cranberry juice. Take your next dose of oral antibiotic tomorrow. Use Pyridium to help with burning urination. Use Zofran to help as needed for nausea, use Buckhannon as needed for severe pain. If you are having intractable nausea, vomiting, pain, or any other acute complaints, please return back to the ER. If you change your mind or would like to have IV, IV fluids, lab testing, CAT scan, or any other acute complaints, please return back to the ER Referrals: Physician,Non-Staff, MD [Primary Care Provider] - 1 week Discharge Date/Time: 12/15/24 12:41
[2024-12-15] MEDS: LIDOCAINE HCL IM (12:37)
[2024-12-15] MEDS: CEFTRIAXONE 2000 MG IM (12:37)
== END 2024-12-15 12:41 | disposition home or self-care (01) ==
PROVIDERS: Emergency Provider Emergency Medicine
DX: N30.91 Cystitis, unspecified with hematuria (principal); M54.50 Low back pain, unspecified; R30.0 Dysuria; R11.0 Nausea; R31.9 Hematuria, unspecified
CPT/HCPCS: 99283; J0696

== ENCOUNTER 2025-02-23 12:30 | Outpatient (OUT) | payer BC, SELFPAY ==
[2025-02-23 12:51] LABS: Hematocrit 35.7 % (36.0-48.0); Hemoglobin 12.3 g/dL (12.0-16.0); Immature Granulocytes Abs Auto 0.01 10^3/uL (0.00-0.03); Immature Granulocytes Pct Auto 0.2 % (0.0-0.5); Lymphocytes Absolute Auto 2.4 10^3/uL (1.2-3.8); Mean Corpuscular HGB Conc 34.5 g/dL (29.9-35.2); Mean Corpuscular Hemoglobin 30.6 pg (26.7-34.0); Mean Corpuscular Volume 88.8 fL (81.0-99.0); Platelet Count 228 10^3/uL (150-450); Red Blood Count 4.02 10^6/uL (4.20-5.40); White Blood Count 6.2 10^3/uL (4.0-11.0)
[2025-02-23 13:10] LABS: Alanine Aminotransferase 29 U/L (14-59); Albumin Globulin Ratio 1.0; Albumin Level 3.5 g/dL (3.4-5.0); Alkaline Phosphatase 97 U/L (46-116); Anion Gap 8.6; Aspartate Amino Transferase 21 U/L (15-37); Blood Urea Nitrogen 18.0 mg/dL (7.0-18.0); Calcium 9.0 mg/dL (8.5-10.1); Carbon Dioxide 28.4 mmol/L (21.0-32.0); Chloride 106 mmol/L (98-107); Estimated GFR (African America >60 (>=60 mL/min/1.73m^2); Estimated GFR (Non-African Ame >60 (>=60 mL/min/1.73m^2); Globulin 3.5 g/dL; Glucose 101 mg/dL (74-106); Potassium 4.0 mmol/L (3.5-5.1); Sodium 139 mmol/L (136-145); Thyroid Stimulating Hormone 3.011 uIU/mL (0.358-3.740); Total Protein 7.0 g/dL (6.4-8.2)
== END 2025-02-23 12:31 | disposition home or self-care (01) ==
LOC: LAB 12:31
PROVIDERS: Visit Provider Internal Medicine Hematology & Oncology
DX: M13.0 Polyarthritis, unspecified (principal); C50.911 Malignant neoplasm of unspecified site of right female breast; M25.50 Pain in unspecified joint
CPT/HCPCS: 36415; 80053; 82306; 84439; 84443; 85025

== ENCOUNTER 2025-02-27 07:32 | Outpatient (RCR) | payer BC, SELFPAY | END 2025-03-18 23:59 | disposition home or self-care (01) | LOC: HEMC 07:32 | PROVIDERS: Visit Provider Internal Medicine Hematology & Oncology | DX: C50.911 Malignant neoplasm of unspecified site of right female breast (principal); M25.50 Pain in unspecified joint; M13.0 Polyarthritis, unspecified; E03.9 Hypothyroidism, unspecified; E27.40 Unspecified adrenocortical insufficiency | CPT/HCPCS: G0463 ==

== ENCOUNTER 2025-04-20 10:13 | Outpatient (OUT) | payer BC, SELFPAY ==
--- OUTSIDE RECORDS SUMMARY | 2019-05-02 13:16 | XMS_ITS | Continuity of Care Document ---
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 [address], [place], [id number], [place]. tel:[phone] Family History Family Member Type Diagnosis Age At Onset No Information Payers Payer name Insurance type Covered alliance party ID Authoriza tion(s) No Information Social History Type Description Quantity Date Captured Comments Sex Female Smoking Status No Information Sexual Orientation Don't Know Gender Identity Female Chief Complaint And Reason For Visit No Information Reason For Referral Reason For Referral No Information History Of Present Illness Encounter Date Complaint History Of Prese nt Illness No Information Functional Status Date Functional Assessmen t No Information Instructions Date Instruction Additional Infor mation No Information Assessments Type Assessment Date No Information Patient Care Teams Name Effective Dates (start - stop) Status Members No Information
--- OUTSIDE RECORDS SUMMARY | 2023-11-29 07:00 | XMS_ITS ---
Author Organization [facility] Address [address] [place] [address] Care Team Providers Care It Corporate Recruiter Name Role Phone SHAIKH HEARN Primary Care Provider Ranjan abdulkadir KingBrandt parry Unavailable [phone] Magdiel Shankar Unavailable [phone] REASON FOR VISIT 1 month ck left dequervains Encounters Encounter Location Date Provider Diagnosis [facility] [address] [place] [address] [address] [place] [address] 11/29/2023 Magdiel Shankar Plan Of Treatment No Information Progress Notes * ALLYSON HANCOCK MDOB:[birth year] (50 yo F)Acc No.[id number]:11/29/2023 Patient: Sulma ALLYSON WELLS Provider: Cierra Shankar MD :1975 A ge:48 Y S ex:Female Date:11/29/2023 Address:[address] [place], [place] [id number] Pcp:SHAIKH NADIYA Subjective: * Chief Complaints: * 1 . 1 month ck left dequervains. * Medical History: Objective: * Vitals: Assessment: Plan: * Treatment: Forms: * Images: * Electronic signature of Matthew Shankar MD on 04/20/2025 at 10:17 AM EDT Sign off status: Pending * Provider: Cierra Shankar MD Date: 0 11/29/2023 Generated for Printi ng/Fabrendag/eTransmitting on: 1 10:17 AM EDT
--- OUTSIDE RECORDS SUMMARY | 2024-06-01 07:15 | XMS_ITS ---
Author Organization [facility] in [place] Address [address] [place] [address] Care Team Providers Care Breaker Off Name Role Phone None, Unknown or Primary Care Provider Unavailab Jaci Hyatt [phone] REASON FOR VISIT MD Encounters Encounter Location Date Provider Diagnosis [facility] [address] [place] [address] 06/01/2024 Jaci Colorado Plan Of Treatment Next Appt Details Provider Name:Jaci Colorado , 09/04/2025 02:00:00 PM, [address] [place], [address], Progress Notes * [place]: [birth year] (50 yo F)Acc No.[id number]:06/01/2024 UNLOCKED PROGRESS NOTE Progress Notes Patient: Tenisha MCELROY Provider: Zahida Colorado M.D. :1975 A ge:49 Y S ex:Female Date:06/01/2024 Address:[address] [place], [place] [id number] Pcp:Unknown or None Subjective: * Chief Complaints: * 1 . MD. * Medical History: Objective: * Vitals: Assessment: Plan: * Treatment: * * Electronic signature of Guy Colorado MD, [id number] on 04/20/2025 at 10:17 AM EDT Sign off status: Pending Visit Status: V OISKIPMSG (Voice) * Provider: Zahida Colorado M.D. Date: 08/01/2023 Generated for Piper estrada/Lanette/Juanitting on: 10:17 AM EDT
--- OUTSIDE RECORDS SUMMARY | 2024-06-12 10:40 | XMS_ITS ---
Author Organization [facility] Address [address] [place] [address] Care Team Providers Care Loftsman/Woman Name Role Phone SHAIKH HEARN Primary Care Provider Brandt Blandon Unavailable [phone] REASON FOR VISIT Left knee OA Medications Medication SIG (Take, Route, Fr equency, Duration) Notes Start Date End Date Status buPROPion Active pantoprazole Active citalopram Active levothyroxine Active Vitamin D3 Active hydrocortisone Activ e rosuvastatin Active Encounters Encounter Location Date Provider Diagnosis [facility] Office [address] [place] [address] [place] [address] 06/12/2024 Brandt King Plan Of Treatment No Information Progress Notes * ALLYSON HANCOCK MDOB:[birth year] (50 yo F)Acc No.[id number]:06/12/2024 Patient: ALLYSON MCELROY Provider: Merritt King DO :1975 A ge:49 Y S ex:Female Date:06/12/2024 Address:[address] [place], [place] [id number] Pcp:SHAIKH NADIYA Subjective: * Chief Complaints: * 1 . Left knee OA. * Medical History: * Medications: T aking hydrocortisone , Taking rosuvastatin , Taking levothyroxine , Taking Vitamin D3 , Taking buPROPion , Taking pantoprazole , Taking citalopram Objective: * Vitals: Assessment: Plan: * Treatment: Forms: * Images: * Electronic signature of Jose King DO on 04/20/2025 at 10:18 AM EDT Sign off status: Pending * Provider: Merritt King, Date: 1 08/12/2023 Generated for Piper estrada/Lanette/Soco on: 1 10:18 AM EDT
--- OUTSIDE RECORDS SUMMARY | 2024-09-05 10:30 | XMS_ITS ---
Author Organization [facility] in [place] Address [address] [place] [address] Care Team Providers Care Prepared Foods Associate Name Role Phone None, Unknown or Primary Care Provider Unavailab Jaci Hyatt [phone] REASON FOR VISIT MD Encounters Encounter Location Date Provider Diagnosis [facility] [address] [place] [address] 09/05/2024 Jaci Colorado Plan Of Treatment Next Appt Details Provider Name:Jaci Colorado , 09/04/2025 02:00:00 PM, [address] [place], [address], Progress Notes * [place]INGTON[place]: [birth year] (50 yo F)Acc No.[id number]:09/05/2024 UNLOCKED PROGRESS NOTE Progress Notes Patient: Tenisha MCELROY Provider: Zahida Colorado M.D. :1975 A ge:49 Y S ex:Female Date:09/05/2024 Address:[address] [place], [place] [id number] Pcp:Unknown or None Subjective: * Chief Complaints: * 1 . MD. * Medical History: Objective: * Vitals: Assessment: Plan: * Treatment: * * Electronic signature of Guy Colorado MD, [id number] on 04/20/2025 at 10:18 AM EDT Sign off status: Pending Visit Status: C ANC (Cancelled) * Provider: Zahida Colorado M.D. Date: 0 09/05/2024 Generated for Piper estrada/Lanette/Soco on: 1 10:18 AM EDT
--- OUTSIDE RECORDS SUMMARY | 2024-09-28 06:00 | XMS_ITS ---
Author Organization The [facility] in [place] Address [address] [place] [address] Care Team Providers Care Tile Edger Name Role Phone None, Unknown or Primary Care Provider Unavailab Jaci Hyatt [phone] REASON FOR VISIT MD Encounters Encounter Location Date Provider Diagnosis [facility] Oncology [address] [place] [address] 09/28/2024 Jaci Colorado Plan Of Treatment Next Appt Details Provider Name:Jaci Colorado , 09/04/2025 02:00:00 PM, [address] [place], [address], Progress Notes * [place]: [birth year] (50 yo F)Acc No.[id number]:09/28/2024 UNLOCKED PROGRESS NOTE Progress Notes Patient: Tenisha MCELROY Provider: Zahida Colorado M.D. :1975 A ge:49 Y S ex:Female Date:09/28/2024 Address:[address] [place], [place] [address] Pcp:Unknown or None Subjective: * Chief Complaints: * 1 . MD. * Medical History: Objective: * Vitals: Assessment: Plan: * Treatment: * * Electronic signature of Guy Colorado MD, [id number] on 04/20/2025 at 10:17 AM EDT Sign off status: Pending Visit Status: C ONFPHONE (Voice) * Provider: Zahida Colorado M.D. Date: 0 09/28/2024 Generated for Piper estrada/Lanette/Juanitting on: 1 10:17 AM EDT
--- OUTSIDE RECORDS SUMMARY | 2024-09-28 06:30 | XMS_ITS ---
Author Organization [facility] in [place] Address [address] [place] [address] Care Team Providers Care Banking Representative Name Role Phone None, Unknown or Primary Care Provider Unavailab Jaci Hyatt [phone] REASON FOR VISIT MD Encounters Encounter Location Date Provider Diagnosis [facility] Oncology [address] [place] [address] 09/28/2024 Jaci Colorado Plan Of Treatment Next Appt Details Provider Name:Jaci Colorado , 09/04/2025 02:00:00 PM, [address] [place], [address], Progress Notes * [place]: [birth year] (50 yo F)Acc No.[id number]:09/28/2024 UNLOCKED PROGRESS NOTE Progress Notes Patient: Tenisha MCELROY Provider: Zahida Colorado M.D. :1975 A ge:49 Y S ex:Female Date:09/28/2024 Address:[address] [place], [place] [address] Pcp:Unknown or None Subjective: * Chief Complaints: * 1 . MD. * Medical History: Objective: * Vitals: Assessment: Plan: * Treatment: * * Electronic signature of Guy Colorado MD, [id number] on 04/20/2025 at 10:17 AM EDT Sign off status: Pending Visit Status: C ANC (Cancelled) * Provider: Zahida Colorado M.D. Date: 0 09/28/2024 Generated for Piper estrada/Lanette/Soco on: 1 10:17 AM EDT
--- OUTSIDE RECORDS SUMMARY | 2025-02-27 10:00 | XMS_ITS ---
Author Organization [facility] in [place] Address [address] [place] [address] Care Team Providers Care Manager Style Name Role Phone None, Unknown or Primary Care Provider Unavailab Jaci Hyatt [phone] REASON FOR VISIT MD Encounters Encounter Location Date Provider Diagnosis [facility] [address] [place] [address] 02/27/2025 Jaci Colorado Plan Of Treatment Next Appt Details Provider Name:Jaci Colorado , 09/04/2025 02:00:00 PM, [address] [place], [address], Progress Notes * [place]: [birth year] (50 yo F)Acc No.[id number]:02/27/2025 UNLOCKED PROGRESS NOTE Progress Notes Patient: Tenisha MCELROY Provider: Zahida Colorado M.D. :1975 A ge:49 Y S ex:Female Date:02/27/2025 Address:[address] [place], [place] [id number] Pcp:Unknown or None Subjective: * Chief Complaints: * 1 . MD. * Medical History: Objective: * Vitals: Assessment: Plan: * Treatment: * * Electronic signature of Guy Colorado MD, [id number] on 04/20/2025 at 10:16 AM EDT Sign off status: Pending Visit Status: A [facility] (Voice) * Provider: Zahida Colorado M.D. Date: 0 02/27/2025 Generated for Piper estrada/Lanette/Soco on: 1 10:16 AM EDT
--- OUTSIDE RECORDS SUMMARY | 2025-04-17 06:56 | XMS_ITS | Continuity of Care Document ---
Author Organization [facility] Address [address] [place] [address] Phone Care Team Providers Care Tool Keeper Name Role Phone NON STAFF Primary Care Provider Cinthia Anderson DO Attending Provider [phone] Care Teams Patient Care Team Team Status: Active Member Role Status Dates NON STAFF Primary Care Provider Active Patient Care Team Team Status: Inactive Member Role Status Dates NON STAFF Primary Care Provider Active Start: April 17, 2025 End: April 17, 2025 Cinthia Fields DO Attending Provider Active Star t: April 17, 2025 End: April 17, 2025 Chief Complaint and Reason for Visit Chief Complaint Admit Date Annual Wellness April 17, 2025 10:03am Reason for Visit Admit Date Wellness examination April 17 10:03am Adrenal insufficiency due to cancer ther apy April 17, 2025 10:03am Breast cancer April 17, 2025 10:03am Hypothyroidism (acquired) March 10:03am Allergies, Adverse Reactions, Alerts Allergen Type Severity Reaction Last Updated Verified Status No Known Allergies Allergy Unknown Septem 2024 10:14am Yes Active Social History Smoking Status Status Start Date End Date Date of Observa tion Ex-smoker (finding) November 11:00am Observation Status Observation Response Date of Response Legal Sex Female (finding) Sex Assigned At Female 1975 Family History Relationship Condition Age at Onset Recorded Date/T vanessa brother Malignant neoplasm of lung Unknown father Malignant neoplasm Unknown mother Chronic obstructive pulmonary disease Unk nown Peripheral vascular disease Unknown father Unknown Problems Active Problems Medical Problem Onset Date Status Carpal tunnel syndrome, left upper limb Unknown Active Hypothyroidism (acquired) Unknown Active Arthralgia of multiple sites, bilateral Unknown Active Encounter for coordination of complex care Unkno wn Active Encounter for chemotherapy management Unknown Active Wellness examination Unknown Active Encounter for antineoplastic immunotherapy Unkno wn Active Breast cancer Unknown Active Lumbar back pain with radiculopathy affecting le ft lower extremity Unknown Active Cervical radiculopathy due to degenerative joint disease of spine Unknown Active 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 Unkn own Active Left corneal abrasion Unknown Active Inactive/Resolved Problems Medical Problem Onset Date Status Chemotherapy-induced neutropenia Unknown Resolved Medications Medication Status Dose Units Route Directions Qty Days St art Date Stop Date End Date Instructions Adherence Prochlorper azine Maleate 10 mg Tablet Discont inued 10 MG PO Q6H as needed for mild nausea and vomiting [facility] 2020 1:00am October 13, 2021 8:27a m Ondansetron 8 mg Tablet,Disi ntegrating Discont inued 8 MG PO Twice daily as needed for severe nausea and vomiting [facility] 2020 1:00am Jul 2021 10:21 am Cephalexin 500 mg Capsule Discont inued 500 MG PO Three times daily [facility] 2020 1:00am [facility] 2020 3:07p m Dexamethaso ne 4 mg Tablet Discont inued 4 MG PO Daily [facility] 2020 1:00am [facility] 2021 3:49p m Lorazepam 1 mg Tablet Discont inued 1 MG PO Q6H as needed for Nausea And Vomiting [facility] 2020 1:00am [facility] kim 2020 2:36p m Citalopram 20 mg Tablet Discont inued 20 MG PO Daily [facility] 2020 1:00am December 15, 2024 10:57 am Omeprazole 20 mg Capsule,Del ayed Release(Dr/ Ec) Discont inued 20 MG PO Daily [facility] 2020 1:00am December 15, 2024 10:57 am Diclofenac Sodium 50 mg Tablet,Marisa yed Release (Dr/Ec) Discont inued 50 MG PO Three times daily [facility] 2020 1:00am Augus t 2021 8:55a m Aspirin-Denzel taminophen- Caffeine (Excedrin Migraine) 250-250-65 mg Tablet Active 1 TAB PO EVERY 4-6 HOURS as needed for Headache [facility] er 2020 1:00am Complies with drug therapy Ondansetron Hcl 8 mg Tablet Discont inued 8 MG PO Q8H as needed for Nausea 30 Decemb er 2020 1:00am Augus t 2021 8:55a m Prochlorper azine Maleate (Compazine) 10 mg Tablet Discont inued 10 MG PO Q6H as needed for Nausea 30 Decemb er 2020 1:00am Augus t 2021 8:55a m Lorazepam 1 mg Tablet Discont inued 1 MG PO Q6H as needed for Nausea And Vomiting 56 14 Decemb er 2020 2:36pm Febru jb 2021 12:49 pm Lorazepam 1 mg Tablet Discont inued 1 MG PO Q6H as needed for Nausea And Vomiting 56 14 Februa ry 2021 12:48p m Augus t 2021 8:55a m Dexamethaso ne 4 mg Tablet Discont inued 8 MG PO Twice daily September 17, 2021 1:00am Augus t 2021 8:55a m for 3 days after treatment Prochlorper azine Maleate 10 mg Tablet Discont inued 10 MG PO Q6H as needed for mild nausea and vomiting October 13, 2021 8:26am October 22, 2021 8:35a m Mometasone 0.1 % Cream Discont inued 1 APPLIC TOPICA L Daily 45 Septem kim 2021 12:00a m Novem kim 2021 1:12p m Ondansetron 8 mg Tablet,Disi ntegrating Discont inued 8 MG PO Q8H 90 Novemb er 2021 1:00am Septe mber 2024 10:16 am Silver Sulfadiazin e (Silvadene) 1 % Cream Discont inued 1 APPLIC TOPICA L Daily 60 Novemb er 2021 1:00am Janua ry 2022 2:31p m apply a 1.5 mm thickness to open/blistere d areas only Mometasone 0.1 % Cream Discont inued 1 APPLIC TOPICA L Daily 45 Novemb er 2021 1:12pm 2022 2:31p m Hydrocortis one 10 mg Tablet Discont inued 0 .ROUTE .COMPLEX 90 30 Decemb er 2021 1:00am 2022 2:31p m take 2 tabs in am and 1 tab in pm Prednisone 20 mg Tablet Discont inued 0 .ROUTE .COMPLEX 42 28 2022 1:00am 2022 2:31p m 20 mg orally--take 3 tabs daily x 1 week, then 2 tabs daily x 1 week, then 1 tab daily x 1 week, then 0.5mg daily x 1 week Prednisone 20 mg Tablet Discont inued 20 MG PO As Directed 2022 1:00am 2022 3:09p m take 40mg po daily for 7d then 30mg po daily for 7d then 20mg po daily Prednisone 5 mg Tablet Discont inued 10 MG PO Daily 2022 1:00am 2022 1:01p m Prednisone 5 mg Tablet Discont inued 10 MG PO Daily 60 2022 1:01pm 2022 3:10p m Levothyroxi ne (Synthroid) 50 mcg Tablet Discont inued 50 MCG PO Daily 2022 1:00am 2022 2:26p m Levothyroxi ne (Synthroid) 50 mcg Tablet Discont inued 50 MCG PO Daily 2022 2:26pm October 12, 2022 10:38 am Prednisone 20 mg Tablet Discont inued 20 MG PO As Directed 2022 3:09pm September 18, 2022 2:35p m take 40mg po daily for 7d then 30mg po daily for 7d then 20mg po daily Hydrocortis one 20 mg Tablet Discont inued 20 MG PO Daily September 18, 2022 1:00am December 15, 2024 10:58 am 20mg and 10mg in the afternoon Levothyroxi ne (Synthroid) 50 mcg Tablet Active 50 MCG PO Daily October 12, 2022 10:37a m Complies with drug therapy Erythromyci n 5 mg/gram (0.5 %) ointment Discont inued 1 APPLIC EYE-RI GHT Four times daily 3.5 7 January 15, 2025 12:00a m [facility]2024 10:16 am Venlafaxine 37.5 mg capsule,ext ended release 24hr Discont inued 37.5 MG PO Once December 15, 2024 12:00a m [facility]2024 10:44 am Rosuvastati n 20 mg tablet Active 20 MG PO Daily December 15, 2024 12:00a m Complies with drug therapy Cholecalcif caro (Vitamin D3) 125 mcg (5,000 unit) tablet Active 5000 UNIT PO Daily December 15, 2024 12:00a m Complies with drug therapy Hydrocortis one 10 mg tablet Discont inued 10 MG PO .COMPLEX December 15, 2024 12:00a m January 15, 2025 9:35a m 10 mg orally 1 tablet in am, 1/2 tablet in pm; Cephalexin 500 mg capsule Discont inued 500 MG PO Q8H 21 7 December 15, 2024 12:00a m January 15, 2025 9:36a m Phenazopyri dine (Pyridium) 200 mg tablet Discont inued 200 MG PO Three times daily 6 2 December 15, 2024 12:00a m January 15, 2025 9:34a m Hydrocortis one 10 mg tablet Active 10 MG PO Twice daily 2024 12:00a m Complies with drug therapy Fluoxetine 40 mg capsule Active 40 MG PO Daily 30 2024 12:00a m Complies with drug therapy Immunizations Immunization Event Date Not Given Reason Dose Number Rejoiner Lot Number Vaccine Information Statement (VIS) Detail Administration Location COVID-19 mRNA-1273 (Moderna) July 25, 2020 [id number] COVID-19 mRNA-1273 (Moderna) August 21, 2020 [id number] Influenza, injectable, MDCK, pf April 27, 2024 [id number] Vital Signs Vital Reading Result Reference Range Collection Date/Time Height 63 [in_i] April 17, 2025 10:07am Weight 78.47 kg April 17, 2025 10:07am Heart Rate 72 /min 60-100 April 17, 2025 10:07am Respiratory rate 16 /min 12-24 March 212024 10:07am Oxygen saturation by Pulse oximetry 97 % 95-100 April 17, 2025 10:07am BP Systolic 122 mm[Hg] 100-140 April 17, 2025 10:07am BP Diastolic 66 mm[Hg] 60-100 April 17, 2025 10:07am BMI (Body Mass Index) 30.6 kg/m2 2024 10:07am Advance Directives Advance Directive Response Recorded Date/ Time Advance Directives No July 24, 2020 3:25pm Insurance Providers Guarantor Trish Loredo Address [address] [place] [id number] Contact Info. Home Phone: Payer Policy Id Subscriber's Name Subscriber Id Effective Date Expiration Date [facility] [id number] Trish Loredo [id number] [place] [id number] Trish Loredo [id number] HCAP/HFA/FAP Active [id number] Trish Loredo [id number] 2024 Copay Assistance Program [id number] Trish Loredo [id number] Encounters Encounter Location(s) Arrival/Admit Date Discharge/Depart Date Provider(s) Departed Physician/Prov ider Office Visit -[facility] Family Medicine Tien April 17, 2025 10:03am April 17, 2025 10:55am Cinthia Fields DO Recent Diagnosis Onset Date Admit Date Wellness examination Unknown March 212024 10:03am 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 Unkn own April 17, 2025 10:03am Breast cancer Unknown April 17, 2025 10:03am Hypothyroidism (acquired) Unknown 2024 10:03am Assessments Diagnosis Onset Date Resolution Status Admit Date Wellness examination acute Mar 10:03am 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 chronic April 17, 2025 10:03am Breast cancer chronic March 212024 10:03am Hypothyroidism (acquired) chronic April 17, 2025 10:03am Plan of Treatment Future Tests Future scheduled test information is unavailable Pending Tests Test Name Ordered Date Scheduled Date Comprehensive Metabolic Panel April 17 10:50am Future Visits Future appointment information is unavailable Referrals to Other Providers Referral information is unavailable Future Procedures Procedure Name Ordered Date Scheduled Date A1C with Estimated Average Glu April 17 10:50am Complete Blood Count Auto Diff April 17 10:50am Lipid Panel April 17, 2025 10:50am Thyroid Stimulating Hormone April 17, 2025 10:50am Future Medications Future medication information is unavailable Patient Instructions Patient instructions are unavailable
--- OUTSIDE RECORDS SUMMARY | 2025-04-20 10:17 | XMS_ITS | Encounter Summary ---
Author Organization [facility] Address [address] [place] [address] Care Team Providers Care Ball Rolling Machine Operator Name Role Phone Shaikh SÁNCHEZ España Primary Care Provider [phone] Chinmay Muñoz MD Primary Care Provider [phone] Faby Sparrow NP Unavailable [phone] Shaikh SÁNCHEZ España Unavailable [phone] Encounter Details Date Type Department Care Team (Late st Contact Info) Description 11/04/2023 Orders Only [facility] [address] [place] [address] Chidi Rincon DO [address] [place] [address] [address] [place] [address] Social History Tobacco Use Types Packs/Day Years Used Date Smoking Tobacco: Never Passive Smoke Exposure: Never Smokeless Tobacco: Never Alcohol Use Standard Drinks/Week Comments Never 0 (1 standard drink = 0.6 oz pure alcohol) caffeine: 1-2 cups per day coffee PHQ-2 Answer Date Recorded Patient Health Questionnaire-2 Score 1 11/01/2023 Comments No Sex and Gender Information Value Date Recorded Sex Assigned at Female 12/31/2023 6:22 PM EDT Legal Sex Female 7:23 PM EDT Gender Identity Not on file Sexual Orientation Not on file 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 f ile documented as of this encounter Plan of Treatment Not on file documented as of this encounter Procedures Procedure Name Priority Date/Time Associated Diagnosis Comments MM SCREENING MAMM WITH 3D IKER - US AND ADDITIONAL Routine 11/04/2023 1:26 PM EDT documented in this encounter Results * MM SCREENING MAMM WITH 3D IKER - US AND ADDITIONAL (11/04/2023 1:26 PM EDT) Anatomical Region Laterality Modality Radiographic Elvia ging us Chidi Sergey DO IMG XR PROCEDURES Final Result documented in this encounter Visit Diagnoses Not on filedocumented in this encounter Care Teams Ball Rolling Machine Operator Relationship Specialty Start Date End Date Shaikh España MD PCP - General Internal Medicine 10/07/23 05/31/24 Chinmay Muñoz MD PCP - General Family Medicine 06/01/24 Shaikh España MD [address] [place] [address] [facility] 06/18/24 Faby Sparrow NP Nurse Practitioner Family Medicine 06/01/24 documented as of this encounter
--- OUTSIDE RECORDS SUMMARY | 2025-04-20 10:17 | XMS_ITS ---
Author Organization [employer] Address [id number] [address] [place] [address] Care Team Providers Care Director Industrial Museum Name Role Phone Yoselin Hurd MD Primary Care Provider [phone] Active Problems * This document contains information received from the source organization and may not represent a complete record from that organization. 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 Past Treatment and Therapy Plans ONCOLOGY TREATMENT Plan Name Start Date Discontinue Date Treatment Medications Discontinue Reason Plan Provider Cycles OP breast neoadjuvant PACLitaxel / CARBOplatin/ Keytruda followed by AC 021 07/07/2021 CARBOplatin (PARAPLATIN) chemo IVPB (by AUC) piggybackcycloPHOSphamid e (CYTOXAN) chemo IVPB piggybackDOXOrubicin (ADRIAMYCIN)PACLItaxel (TAXOL) chemo IVPB piggybackpembrolizumab (KEYTRUDA) chemo IVPB piggyback Other Telly Smith MD Treatment not started
--- OUTSIDE RECORDS SUMMARY | 2025-04-20 10:17 | XMS_ITS | Encounter Summary ---
Author Organization [facility] Address [address] [place] [facility] [place] [address] Care Team Providers Care Oracle Manufacturing Consultant Name Role Phone Chinmay Muñoz MD Primary Care Provider [phone] Faby Sparrow SANE RN Unavailable Reason for Visit * Reason Comments Med Refill Encounter Details Date Type Department Care Team (Late st Contact Info) Description 12/28/2024 Refill [facility] [address] [place] [address] Chinmay Muñoz MD [address] [place] [id number] Other hyperlipidemia Social History Tobacco Use Types Packs/Day Years Used Date Smoking Tobacco: Never Passive Smoke Exposure: Never Smokeless Tobacco: Never Alcohol Use Standard Drinks/Week Comments Never 0 (1 standard drink = 0.6 oz pure alcohol) caffeine: 1-2 cups per day coffee PHQ-2 Answer Date Recorded Patient Health Questionnaire-2 Score 0 01/13/2024 Comments No Sex and Gender Information Value Date Recorded Sex Assigned at Female 12/31/2023 6:22 PM EDT Legal Sex Female 7:23 PM EDT Gender Identity Not on file Sexual Orientation Not on file 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
--- OUTSIDE RECORDS SUMMARY | 2025-04-20 10:17 | XMS_ITS | Encounter Summary ---
Author Organization [facility] Address [address] [place] [address] Care Team Providers Care Skilled Nursing Facility Counselor Name Role Phone Shaikh SÁNCHEZ España Primary Care Provider [phone] Chinmay Muñoz MD Primary Care Provider [phone] Faby Sparrow NP Unavailable [phone] Shaikh SÁNCHEZ España Unavailable [phone] Encounter Details Date Type Department Care Team (Late st Contact Info) Description 11/04/2023 Clinisync Result Encounter [facility] External Department Unsolicited Chidi Rincon, DO [address] [place] [address] Social History Tobacco Use Types Packs/Day Years [...] 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 as of this encounter Plan of Treatment Not on file documented as of this encounter Procedures Procedure Name Priority Date/Time Associated Diagnosis Comments BI US BREAST LIMITED RIGHT 11/04/2023 12:57 PM EDT documented in this encounter Results * Right breast US limited (11/04/2023 12:57 PM EDT) Anatomical Region Laterality Modality Breast Right Ultrasound 11/04/2023 12:5 7 PM EDT Narrative 11/04/2023 12:59 [place] [address] Ultrasound Report Signed Patient: ALLYSON HARRINGTON MR#: [id number] : 1975 Acct:[id number] Age/Sex: 48 / F ADM Date: 11/04/23 Loc: MAMMO Attending Dr: Chidi Rincon D.O. Ordering Physician: Chidi Rincon D.O. Date of Service: 11/04/23 Procedure(s): US breast RT limited Accession Number(s): [id number] cc: Shaikh Ollie España; Chidi Rincon D.O. Patient Name: ALLYSON HARRINGTON MR#: [id number] : 1975 Exam Date: 11/04/2023 Ordering Doctor: DR Chidi Rincon . RADIOLOGY REPORT PROCEDURE: MM TOMOSYNTHESIS DIAGNOSTIC BI, 11/04/2023, 10:22 US BREAST RT LIMITED, 11/04/2023, 11:54 COMPARISON: MM TOMOSYNTHESIS DIAGNOSTIC BI, 02/09/2023. MAMMO POST BIOPSY RIGHT, 05/26/2021. MG MAMM RT DIAG FU, 05/13/2021. 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 LOCATION: [facility] BREAST COMPOSITION: The breasts are heterogeneously dense,which may obscure small masses. FINDINGS: DIAGNOSTIC CATEGORY 3--PROBABLY BENIGN FINDING. THE FOLLOWING FINDING(S) HAS A HIGH PROBABILITY OF A BENIGN ETIOLOGY: RIGHT BREAST: Spiculated opacity within posterior outer quadrant adjacent the chest wall on the CC view which was not seen on prior study but is suspected to be visible on today's study due to more of the posterior tissue able to be pulled into view. Opacity within this area on the MLO view is similar to prior study. Ultrasound evaluation demonstrates a slightly heterogeneous and questionable mass like structure within this region, but patient has undergone surgery in this area for prior mass removal. The above findings may represent postsurgical scarring, however, given the patient's history further evaluation is needed. Follow-up mammography and right breast ultrasound in 3-4 months is recommended to document stability. Any increase should prompt biopsy. Alternatively, MRI of the right breast could be performed at this time to evaluate enhancement characteristics. LEFT BREAST: No significant suspicious finding. No significant change has occurred. RECOMMENDATIONS: SHORT TERM FOLLOW-UP DIAGNOSTIC MAMMOGRAM RIGHT IN 3 MONTHS. SHORT TERM FOLLOW-UP ULTRASOUND RIGHT BREAST IN 3 MONTHS. PLEASE NOTE: A NORMAL MAMMOGRAM DOES NOT EXCLUDE THE POSSIBILITY OF BREAST CANCER. A CLINICALLY SUSPICIOUS PALPABLE LUMP SHOULD BE BIOPSIED. Dictated by: Magdiel Leiva M.D. on 11/04/2023 at 12:09 Approved by: Magdiel Leiva M.D. on 11/04/2023 at 12:57 Dictated By: Magdiel Leiva M.D. Signed By: 11/04/23 1259 DD/ 1257 TD/TT: Shearing Machine Operator: Procedure Note Radiology, Radiologist, MD - 11/04/2023 [place] [address] Ultrasound Report Signed Patient: ALLYSON HARRINGTON MMR#: [id number] : 1975Acct:[id number] Age/Sex: 48 / FADM Date: 11/04/23 Loc: MAMMO Attending Dr: Chidi Rincon D.O. Ordering Physician: Chidi Rincon D.O. Date of Service: 11/04/23 Procedure(s): US breast RT limited Accession Number(s): [id number] cc: Shaikh Ollie España; Chidi Rincon D.O. Patient Name: ALLYSON HARRINGTON MR#: [id number] : 1975 Exam Date: 11/04/2023 Ordering Doctor: DR Chidi Rincon . RADIOLOGY REPORT PROCEDURE: MM TOMOSYNTHESIS DIAGNOSTIC BI, 11/04/2023, 10:22 US BREAST RT LIMITED, 11/04/2023, 11:54 COMPARISON: MM TOMOSYNTHESIS DIAGNOSTIC BI, 02/09/2023. MAMMO POSTBIOPSY RIGHT, 05/26/2021. MG MAMM RT DIAG FU, 05/13/2021. 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 LOCATION: [facility] BREAST COMPOSITION: The breasts are heterogeneously dense,which may obscure small masses. FINDINGS: DIAGNOSTIC CATEGORY 3--PROBABLY BENIGN FINDING. THE FOLLOWING FINDING(S)HAS A HIGH PROBABILITY OF A BENIGN ETIOLOGY: RIGHT BREAST: Spiculated opacity within posterior outer quadrant adjacentthe chest wall on the CC view which was not seen on prior study but issuspected to be visible on today's study due to more of the posterior tissue able keith pulled into view. Opacity within this area on the MLO view is similar to prior study. Ultrasound evaluation demonstrates a slightly heterogeneousand questionable mass like structure within this region, but patient hasundergone surgery in this area for prior mass removal. The above findings may represent postsurgical scarring, however, given the patient's history further evaluation is needed. Follow-up mammography and right breast ultrasound in 3-4 months is recommended to documentstability. Any increase should prompt biopsy. Alternatively, MRI of the right breast could be performed at this time to evaluate enhancement characteristics. LEFT BREAST: No significant suspicious finding. No significant changehas occurred. RECOMMENDATIONS: SHORT TERM FOLLOW-UP DIAGNOSTIC MAMMOGRAM RIGHT IN 3 MONTHS. SHORT TERM FOLLOW-UP ULTRASOUND RIGHT BREAST IN 3 MONTHS. PLEASE NOTE: A NORMAL MAMMOGRAM DOES NOT EXCLUDE THE POSSIBILITY OFBREAST CANCER. A CLINICALLY SUSPICIOUS PALPABLE LUMP SHOULD BE BIOPSIED. Dictated by: Magdiel Leiva M.D. on 11/04/2023 at 12:09 Approved by: Magdiel Leiva M.D. on 11/04/2023 at 12:57 Dictated By: Magdiel Leiva M.D. Signed By:11/04/23 1259 DD/ 1257 TD/TT: Shearing Machine Operator: us Chidi Sergey DO IM US PROCEDURES Final Result documented in this encounter Visit Diagnoses Not on filedocumented in this encounter Care Teams Skilled Nursing Facility Counselor Relationship Specialty Start Date End Date Shaikh España MD PCP - General Internal Medicine 10/07/23 05/31/24 Chinmay Muñoz MD PCP - General Family Medicine 06/01/24 Shaikh España MD [address] [place] [address] [facility] 06/18/24 Faby Sparrow NP Nurse Practitioner Family Medicine 06/01/24 documented as of this encounter
--- OUTSIDE RECORDS SUMMARY | 2025-04-20 10:17 | XMS_ITS | Encounter Summary ---
Author Organization [facility] Address [address] [place] [address] Care Team Providers Care Helicopter Repairer Name Role Phone Shaikh SÁNCHEZ España Primary Care Provider [phone] Shaikh SÁNCHEZ España Primary Care Provider [phone] Chinmay Muñoz MD Primary Care Provider [phone] Faby Sparrow NP Unavailable [phone] Shaikh SÁNCHEZ España Unavailable [phone] Encounter Details Date Type Department Care Team (Late st Contact Info) Description 03/11/2023 Abstract [facility] [address] [facility] [address] [place] [id number] Daniel Smalls DO [address] [facility] [address] [place] [address] Social History Tobacco Use Types Packs/Day Years Used Date Smoking Tobacco: Never Smokeless Tobacco: Never Alcohol Use Standard Drinks/Week Comments Never 0 (1 standard drink = 0.6 oz pure alcohol) caffeine: 1-2 cups per day coffee Comments Unknown Sex and Gender Information Value Date Recorded Sex Assigned at Female 12/31/2023 6:22 PM EDT Legal Sex Female 7:23 PM EDT Gender Identity Not on file Sexual Orientation Not on file 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 documented as of this encounter Plan of Treatment Not on file documented as of this encounter Visit Diagnoses Not on filedocumented in this encounter Care Teams Helicopter Repairer Relationship Specialty Start Date End Date Fawwad, Vaughan, MD PCP - General Internal Medicine 11/24/22 10/06/23 Shaikh España MD PCP - General Internal Medicine 10/07/23 05/31/24 Chinmay Muñoz MD PCP - General Family Medicine 06/01/24 Shaikh España MD [address] [place] [address] PCP - [facility] 06/18/24 Faby Sparrow NP Nurse Practitioner Family Medicine 06/01/24 documented as of this encounter
--- OUTSIDE RECORDS SUMMARY | 2025-04-20 10:17 | XMS_ITS | Encounter Summary ---
Author Organization [facility] Address [address] [place] [address] Care Team Providers Care Advance Seal Delivery System Maintainer Name Role Phone Shaikh SÁNCHEZ España Primary Care Provider [phone] Chinmay Muñoz MD Primary Care Provider [phone] Faby Sparrow NP Unavailable [phone] Shaikh SÁNCHEZ España Unavailable [phone] Encounter Details Date Type Department Care Team (Late st Contact Info) Description 10/22/2023 Clinisync Result Encounter [facility] Unsolicited Castillo Valenzuela, [place] [address] [place] [address] Social History Tobacco Use Types Packs/Day Years Used Date Smoking Tobacco: Never Smokeless Tobacco: Never Alcohol Use Standard Drinks/Week Comments Never 0 (1 standard drink = 0.6 oz pure alcohol) caffeine: 1-2 cups per day coffee Comments No Sex and Gender Information Value Date Recorded Sex Assigned at Female 12/31/2023 6:22 PM EDT Legal Sex Female 7:23 PM EDT Gender Identity Not on file Sexual Orientation Not on file 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 as of this encounter Plan of Treatment Not on file documented as of this encounter Procedures Procedure Name Priority Date/Time Associated Diagnosis Comments MR WRIST LEFT WO IV CONTRAST 10/22/2023 12:49 PM EDT documented in this encounter Results * MR wrist left wo IV contrast (10/22/2023 12:49 PM EDT) Anatomical Region Laterality Modality Upper Extremities, Wrist Left Magneti c Resonance 10/22/2023 12:4 9 PM EDT Narrative 10/22/2023 12:52 [place] [address] Magnetic Resonance Report Signed Patient: ALLYSON HARRINGTON MR#: [id number] : 1975 Acct:[id number] Age/Sex: 48 / F ADM Date: 10/21/23 Loc: MRI Attending Dr: Castillo WILLS Ordering Physician: Castillo Valenzuela Date of Service: 10/21/23 Procedure(s): wrist LT wo con Accession Number(s): [id number] cc: Shaikh Ollie España; Castillo Valenzuela [place] [address] Patient Name: ALLYSON HARRINGTON MRN: [id number] date: 1975 Sex: F Assigned Patient Location: MRI Current Patient Location: MRI Accession/Order Number: [id number] Exam Date: 10/21/2023 15:40 Report Date: 10/22/2023 12:49 At the request of: CASTILLO VALENZUELA Procedure: wrist LT wo con HISTORY: Pain in the left wrist after moving heavy objects approximately 3 months ago. MR wrist LT wo con: 10/21/2023 3:40 PM EDT COMPARISON: Radiographs left wrist 08/27/2023. TECHNIQUE: Multiplanar, multisequence MRI images of the wrist were obtained. FINDINGS: LIGAMENTS AND TFCC: The scapholunate ligament complex and lunotriquetral ligament appear intact. The triangular fibrocartilage complex appears grossly intact. BONES AND JOINTS: The bone marrow signal intensity appears age appropriate. There are at least mild degenerative changes of the first carpometacarpal joint. No bone marrow edema-like signal is seen. TENDONS: There is severe tendinopathy and a superimposed short segment longitudinal split tear of the abductor pollicis longus tendon spanning approximately 1.5 cm in length at the level of the carpal bones. There is an adjacent moderate tenosynovitis and there is also a moderate amount of edema-like stranding of the subcutaneous fat in this region. There is ulnar subluxation of the extensor carpi ulnaris tendon from the dorsal groove of the ulna and there appears to be mild focal tendinopathy of the tendon in this region. The other tendons of the wrist appear within normal limits. CARPAL TUNNEL: There appear to be probable postsurgical changes from prior carpal tunnel surgery. No space-occupying mass is seen in the carpal tunnel. MUSCLES AND SOFT TISSUES: The visualized musculature appears grossly within normal limits in signal intensity. MR/MR wrist LT wo con IMPRESSION: 1. Severe tendinopathy and superimposed short segment longitudinal split tear of the abductor pollicis longus tendon spanning 1.5 cm in length at the level of the carpal bones. This is associated with a moderate tenosynovitis and moderate peritendinitis in this region. 2. Ulnar subluxation of the extensor carpi ulnaris tendon from the dorsal groove of the ulna with mild focal tendinopathy of the tendon in this region. 3. No ligament injury or tear of the TFCC. 4. 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 Electronically authenticated by: JAMESON THOMAS Date: 10/22/2023 12:49 Dictated By: Jameson Thomas M.D. Signed By: 10/22/23 1252 DD/ 1249 TD/TT: Educational/Development Assistant: Procedure Note Radiology, Radiologist, MD - 10/22/2023 [place] [address] Magnetic Resonance Report Signed Patient: ALLYSON HARRINGTON [facility]#: [id number] : 1975Acct:[id number] Age/Sex: 48 / FADM Date: 10/21/23 Loc: MRI Attending Dr: Castillo WILLS Ordering Physician: Castillo Valenzuela Date of Service: 10/21/23 Procedure(s): MR wrist LT wo con Accession Number(s): [id number] cc: Shaikh Ollie España; Castillo Valenzuela [address] [address] Patient Name: ALLYSON HARRINGTON MRN: [id number] date: 1975 Sex: F Assigned Patient Location: MRI Current Patient Location: MRI Accession/Order Number: [id number] Exam Date: 10/21/2023 15:40 Report Date: 10/22/2023 12:49 At the request of: CASTILLO VALENZUELA Procedure: MR wrist LT wo con HISTORY: Pain in the left wrist after moving heavy objects approximately 3 months ago. MR wrist LT wo con: 10/21/2023 3:40 PM EDT COMPARISON: Radiographs left wrist 08/27/2023. TECHNIQUE: Multiplanar, multisequence MRI images of the wrist wereobtained. FINDINGS: LIGAMENTS AND TFCC: The scapholunate ligament complex and lunotriquetral ligament appear intact. The triangular fibrocartilage complex appearsgrossly intact. BONES AND JOINTS: The bone marrow signal intensity appears ageappropriate. There are at least mild degenerative changes of the first carpometacarpal joint. No bone marrow edema-like signal is seen. TENDONS: There is severe tendinopathy and a superimposed short segment longitudinal split tear of the abductor pollicis longus tendon spanning approximately 1.5 cm in length at the level of the carpal bones. There isan adjacent moderate tenosynovitis and there is also a moderate amount of edema-like stranding of the subcutaneous fat in this region. There isulnar subluxation of the extensor carpi ulnaris tendon from the dorsal groove ofthe ulna and there appears to be mild focal tendinopathy of the tendon in this region. The other tendons of the wrist appear within normal limits. CARPAL TUNNEL: There appear to be probable postsurgical changes from prior carpal tunnel surgery. No space-occupying mass is seen in the carpaltunnel. MUSCLES AND SOFT TISSUES: The visualized musculature appears grosslywithin normal limits in signal intensity. MR/MR wrist LT wo con IMPRESSION: 1. Severe tendinopathy and superimposed short segment longitudinal splittear of the abductor pollicis longus tendon spanning 1.5 cm in length at thelevel of the carpal bones. This is associated with a moderate tenosynovitis and moderate peritendinitis in this region. 2. Ulnar subluxation of the extensor carpi ulnaris tendon from the dorsal groove of the ulna with mild focal tendinopathy of the tendon in thisregion. 3. No ligament injury or tear of the TFCC. 4. There is at least mild osteoarthritis of the first carpometacarpaljoint. Electronically authenticated by: JAMESON THOMAS Date: 10/22/2023 12:49 Dictated By: Jameson Thomas M.D. Signed By:10/22/23 1252 DD/ 1249 TD/TT: Educational/Development Assistant: us Castilol WILLS IMG MRI PROCEDURES Final Resu lt documented in this encounter Visit Diagnoses Not on filedocumented in this encounter Care Teams Advance Seal Delivery System Maintainer Relationship Specialty Start Date End Date Shaikh España MD PCP - General Internal Medicine 10/07/23 05/31/24 Chinmay Muñoz MD PCP - General Family Medicine 06/01/24 Shaikh España MD [address] [place] [address] PCP - [facility] 06/18/24 Faby Sparrow NP Nurse Practitioner Family Medicine 06/01/24 documented as of this encounter
--- OUTSIDE RECORDS SUMMARY | 2025-04-20 10:17 | XMS_ITS | Clinical Summary ---
Author Organization [facility] Address [address] [place] [address] Phone Care Team Providers Care Reject Opener And Filler Name Role Phone Unavailable Primary Care Provider Unavailabl e Social History Tobacco Use Types Packs/Day Years Used Date Smoking Tobacco: Never Assessed Comments Unknown Sex and Gender Information Value Date Recorded Sex Assigned at Not on file Legal Sex Female 8:55 AM EST Gender Identity Not on file Sexual Orientation Not on file Plan of Treatment Not on file
--- OUTSIDE RECORDS SUMMARY | 2025-04-20 10:17 | XMS_ITS | Clinical Summary ---
Author Organization [facility] Address [address] [place] [address] Care Team Providers Care Vp Scientific Name Role Phone Chinmay Muñoz MD Primary Care Provider [phone] Faby Sparrow NP Unavailable [phone] Allergies No known active allergies Medications baclofen (Lioresal) 10 MG tablet Take by mouth 3 (three) times a day. Active citalopram (CeleXA) 20 MG tabletIndications: Moderate episode of recurrent major depressive disorder (HCC) Take 1 tablet (20 mg) by mouth Daily 90 tablet 1 06/26/20 24 Active fluticasone (Flonase) 50 MCG/ACT nasal sprayIndications:S easonal allergic rhinitis, unspecified trigger USE 2 SPRAYS IN EACH NOSTRIL DAILY*SHAKE GENTLY* 48 mL 1 07/19/19 25 Active pantoprazole (ProtoNix) 40 MG EC tabletIndications: Gastroesophageal reflux disease, unspecified whether esophagitis present Take 1 tablet (40 mg) by mouth in the morning. Take before meals. Do not crush, chew, or split.. 90 tablet 09/22/19 25 Active hydrocortisone (Cortef) 10 MG tabletIndications: Drug-induced adrenocortical insufficiency (HCC) Take 1 tablet (10 mg) by mouth Daily 30 tablet 5 10/04/19 25 Active venlafaxine XR (Effexor XR) 37.5 MG 24 hr capsuleIndications :Hot flashes Take 1 capsule (37.5 mg) by mouth Daily Do not crush or chew. 90 capsule 3 11/18/19 25 Active cholecalciferol (Natural Vitamin D-3) 5,000 Units tabletIndications: Other hyperlipidemia TAKE 1 TABLET BY MOUTH EVERY DAY 90 tablet 2 12/29/19 25 Active rosuvastatin (Crestor) 20 MG tabletIndications: Other hyperlipidemia Take 1 tablet (20 mg) by mouth Daily 90 tablet 1 12/29/19 25 025 Active levothyroxine (Synthroid, Levoxyl) 50 MCG tabletIndications: Hypothyroidism, unspecified TAKE 1 TABLET BY MOUTH EVERY DAY IN THE MORNING ON EMPTY STOMACH 90 tablet 1 03/26/20 25 Active levothyroxine (Synthroid, Levoxyl) 50 MCG tabletIndications: Hypothyroidism, unspecified TAKE 1 TABLET BY MOUTH EVERY DAY IN THE MORNING ON EMPTY STOMACH 90 tablet 1 09/21/19 25 025 Discontinued Active Problems Problem Noted Date Diagnosed Date Encounter for wellness examination in adult 10/2023 Class 1 obesity due to exces s calories without serious comorbidity with body mass index (BMI) of 30.0 to 30.9 in adult 01/13/2024 Assessment & Plan (06/26/2024 2:46 PM EST): Discussed with patient their BMI (actual, verses recommended). We have also discussed lifestyle modifications: attempts to perform physical activity as chronic conditions allow, also to monitor dietary intake: increasing protein/fruits/veggies and lowering carb intake (unless contraindicated). Limit sodas, juices, and sugary drinks. Also discussed oral medications that can be utilized for weight loss, as well as surgical options for weight loss. Dental infection 01/13/2024 Assessment & Plan (01/13/2024 3:41 PM EDT): Will call in oral augmentin. Appt with dentist in January No systemic signs. Anxiety and depression 12/14/2023 Assessment & Plan (06/26/2024 4:30 PM EST): Reports she has increased anxiety and stressors [...] continue with therapy. GERD (gastroesophageal reflux disease) Hypopituitarism 12/14/2023 Chronic pain of left knee 12/14/2023 Assessment & Plan (12/14/2023 3:29 PM EDT): Left knee pain, chronic, worsened from before. Pain is worse when she flexes her Knee. No injury, no prior hx of surgery. Crepitus on exam Order XR. Patient follows Orthopedics - recommended to follow up with orthopedic surgery after XR. Left hip pain 12/14/2023 Assessment & Plan (12/14/2023 3:30 PM EDT): Chronic, worsened from before and Persistent. XR ordered Recommend following up with Orthopedic surgery. Chronic left-sided low back pain without sciatic a 12/14/2023 Assessment & Plan (12/14/2023 3:28 PM EDT): Left sided low back pain. Likely left hip pathology. Will get XR to ensure its not her lumbar spine. Overweight with body mass in dex (BMI) of 28 to 28.9 in adult 12/14/2023 Assessment & Plan (01/13/2024 3:38 PM EDT): Patient started on Adapex last appointment, lost 10 lbs on it. Tolerating it well. No adverse effects. C/w same. Follow up in one month. Assessment & Plan (01/13/2024 3:37 PM EDT): >>ASSESSMENT AND PLAN FOR CLASS 1 OBESITY DUE TO EXCESS CALORIES WITHOUT SERIOUS COMORBIDITY WITH BODY MASS INDEX (BMI) OF 30.0 TO 30.9 IN ADULT WRITTEN ON 12/14/2023 3:30 PM BY SHAIKH NADIYA MD Patient educated on risks of increased cardiovascular morbidity/mortality and poor health outcomes associated with unhealthy bodyweight. Patient counseled on lifestyle modifications, dietary restrictions. Patient encouraged to limit caloric intake and increase physical activity. Therapeutic and surgical options reviewed with patient . Patient was offered opportunity to ask questions and address their concern. Will start on Adapex. Patient counseled and educated on adverse effects, drug interactions and to reach out to office/pharmacy if questions or concerns related to new medications. 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 On Hydrocrotisone 10 mg daily but poorly controlled symptoms and reports nausea, fatigue and low energy. Has an appointment with [facility] endocrine in January Assessment & Plan (11/01/2023 4:24 PM EDT): Due to hypophysitis caused by Pembrolizumab. On Hydrocrotisone 10 mg daily but poorly controlled symptoms and reports nausea, fatigue and low energy. Has an appointment coming up with Endocrine soon. Monitor/defer to endocrine. Carpal tunnel syndrome, left upper limb 11/01/19 Moderate episode of recurrent major depressive d isorder 11/01/2023 Assessment & Plan (01/13/2024 3:40 PM EDT): Doing well. Mood is stable. C/w same Wellbutrin and Celexa. Assessment & Plan (12/14/2023 3:10 PM EDT): Was seen last appointment for Poorly controlled depression. She reported depressive symptoms, irritable mood, fatigue, frequent crying and psychomotor retardation. She had mistakenly stopped using Celexa. She was started on Wellbutrin along with Celexa. She reports she is feeling better. Her mood is stable and currently denies depressive symptoms. C/w same Wellbutrin and Celexa. Assessment & Plan (11/01/2023 4:25 PM EDT): Poorly controlled. Reports depressive symptoms, irritable mood, fatigue, frequent crying and psychomotor retardation. Stopped using Celexa - did not realize that. Resumed Celexa Start on Wellbutrin. Patient counseled and educated on adverse effects, drug interactions and to reach out to office/pharmacy if questions or concerns related to new medications. Other hyperlipidemia 11/01/2023 Assessment & Plan (11/01/2023 4:24 PM EDT): Resumed crestor. Adjustment and management of vascular access dev ice 03/02/2023 History of breast cancer 03/02/2023 Arthritis of left hip 11/30/2022 Breast cancer 11/30/2022 Drug-induced adrenocortical insufficiency 2022 Assessment & Plan (01/13/2024 3:39 PM EDT): Due to immunotherapy resulting in hypophysitis, on chronic hydrocortisone therapy. Appt with Endocrine in January - Malignant neoplasm of centra l portion of right female breast 11/30/2022 Obesity (BMI 30-39.9) 11/30/2022 Right carpal tunnel syndrome 11/30/2022 Arthritis 11/30/2022 Hypercholesteremia 11/30/2022 Status post breast reconstruction 02/17/2022 Carcinoma of lower outer quadrant of right breas t 06/05/2021 Triple negative malignant neoplasm of breast Migraine 04/20/2011 Encounters Date Type Department Care Team Description 04/09/2025 Abstract [facility] [address] [address] Chidi Rincon, DO 04/09/2025 Abstract [facility] [address] [place] [address] Chidi Rincon, DO 04/09/2025 Telephone [facility] [address] [place] [address] Chidi Rincon, DO 03/25/2025 Refill [facility] [address] [place] [id number] Elizabeth Pérez MD Hypothyroidism, unspecified from Last 3 Months Immunizations Immunization Administration Dates Next Due Influenza, injectable, quadrivalent, preservativ e free 04/26/2018 Moderna SARS-CoV-2 Vaccination 08/21/2020,2020 Family History Medical History Relation Name Comments Lung cancer Brother Cancer Father COPD Mother Heart disease Mother Peripheral vascular disease Mother Breast cancer Neg Hx Colon cancer Neg Hx Ovarian cancer Neg Hx Relation Name Status Comments Brother Father Mother Alive Social History Tobacco Use Types Packs/Day Years Used Date Smoking Tobacco: Never Passive Smoke Exposure: Never Smokeless Tobacco: Never Tobacco Cessation:Counseling Given: Not Answered Alcohol Use Standard Drinks/Week Comments Never 0 [...] 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 Filed Vital Signs Vital Sign Reading Time Taken Comments Blood Pressure 102/70 10/25/2024 2:37 PM EDT Pulse 85 06/26/2024 2:29 PM EST Temperature 36 C (96.8 F) 06/26/2024 2:29 PM EST Respiratory Rate 16 06/26/2024 2:29 PM EST Oxygen Saturation 98% 06/26/2024 2:29 PM EST Inhaled Oxygen Concentration - - Weight 76.1 kg (167 lb 12 oz) 10/25/2024 2:37 PM EDT Height 160 cm (5' 3 ) 06/26/2024 2:29 PM EST Body Mass Index 29.72 06/26/2024 2:29 PM EST Plan of Treatment Health Maintenance Due Date Last Done Comments CT Colonography 1975 FIT-DNA 1975 FIT 1975 FOBT 1975 Sigmoidoscopy 1975 Influenza Vaccine (#1) 2025 04/27/2024, 2017 Pap Smear 04/17/2027 04/17/2024, 04/07/2022, 11/0 03/1998 Cervical Cancer Screening 04/27/2028 HPV/Cotest 04/27/2028 04/27/2023 Colonoscopy 12/21/2033 12/22/2023 Colorectal Cancer Screening 12/21/2033 Procedures Procedure Name Priority Date/Time Associated Diagnosis Comments PAP SMEAR Routine 04/17/2024 12:00 AM EDT THINPREP PAP AND HPV MRNA E6/E7 W/RFL HPV 16,18/45 Routine 04/27/2023 4:27 PM EDT Well woman exam with routine gynecological exam from Last 3 Months or Most Recently Relevant to Health Maintenance Results * Pap Smear (04/17/2024 12:00 AM EDT) Swab Cervical swab / Unknown us Chidi Sergey DO LAB CYTOLOGY ORDERABLES Final Re sult EXTERNAL LAB * THINPREP PAP AND HPV MRNA E6/E7 W/RFL HPV 16,18/45 (04/27/2023 4:27 PM EDT) us Chidi Sergey DO LAB BLOOD ORDERABLES Final Resul t EXTERNAL LAB from Last 3 Months or Most Recently Relevant to Health Maintenance Insurance [facility] Care Teams Vp Scientific Relationship Specialty Start Date End Date Chinmay Muñoz MD PCP - General Family Medicine 06/01/24 Faby Sparrow NP Nurse Practitioner Family Medicine 06/01/24
--- OUTSIDE RECORDS SUMMARY | 2025-04-20 10:17 | XMS_ITS | Patient Health Record ---
Author Organization [facility] vices Address [address], [place] [address] Support Name Relationship Address Phone Chinmay Benito Emergency Contact [address] [place], [place] [id number] Tenisha Harrington Guarantor Unknown Allergies No Known Allergies Reason For Referral No Information Problems Problem Type SNOMED Code ICD Code Onset Dates Problem Status W/U Status Risk Notes Problem Venereal disease screening (445557792) Screening for STD (sexually transmitted disease) (Z11.3) Active confirmed Problem Gynecological examination normal (382553402957971 ) Well female exam with routine gynecological exam (Z01.419) Active confirmed Comment:stopp e d ocp, has not had problems with migraines.,Jatin cription:Well woman exam with routine gynecological exam Problem Candidal vulvovaginitis (21318922) Yeast infection of the vagina (112.1) (B37.3) Active confirmed Problem Gynecological examination normal (389805081287094 ) Encounter for routine gynecological examination (Z01.419) Active confirmed Comment:last pap 11/29/2012, Problem Postoperative status (92244068) S/P LEEP of cervix (V45.89) (V45.89) Active confirmed Comment:years ago by Dr. Gray, Problem Breast lump (29716731) Breast mass, left (611.72) (611.72) Active confirmed Comment:small cyst palpated 1-2 oclock near outer ridge of breast, tender to palpation - ultrasound demonstrated a 4 mm cyst, no follow up needed. encouraged self breast exams pt has been having routine mammograms, normal declines to see breast surgeon, Problem Contraception care management (299193747) Contraception management (V25.9) (V25.9) Active confirmed Comment:disc us sed with patient that if migraines worsening with ocp, she should not be taking contraception with estrogen. DIscussed alternative forms. Pt states migraines only occur on day 4 of sugar pills when starts cycles. Discussed with patient may skip sugar pills and start new pack of ocp. If continues to have migraines, will stop ocp and choose progestin only form,Story:pt has history of migraines, states only happens with cycles, associated with nausea., Problem Contraception care education (572046197) Contraceptive education (Z30.09) Active confirmed Comment:pt was using ocp, stopped for over a year, now contemplating sterilization but unsure if done childbearing. Discussed short term and residential contraception options, risks and side effects of each, pt desires to do depo for now until decides, pamphlets given and info printed from [facility] website, Problem Obesity (731078187) Obesity (BMI 35.0-39.9 without comorbidity) (278.00) (278.00) Active confirmed Comment:pt joined weight watchers, doing well. Lost 3 lbs from last visit, Plan Of Treatment No Information Insurance Providers Payer Name Payer Address Payer Phone Subscriber Number Group Number Insured Name Patient Relationship to Insured Coverage Start Date Coverage End Date Medical [place] [address] [place] [address] [id number] Tenisha Harrington Self - patient is the insured 3 Medical (General) History Surgical History Surgery Date(Month/Year) Cholecystectomy, ProblemStatus: Active, LEEP, COMMENTS: Dr. Jones, ProblemS tatus: Active, Foot Surgery - Right, ProblemStatus: Act laci,
--- OUTSIDE RECORDS SUMMARY | 2025-04-20 10:17 | XMS_ITS | Encounter Summary ---
Author Organization [facility] Address [address] [facility] [place] [address] Care Team Providers Care Exhaust And Muffler Repairer Name Role Phone Chinmay Muñoz MD Primary Care Provider [phone] Faby Sparrow HEAT REGULATOR Unavailable [phone] Encounter Details Date Type Department Care Team (Late st Contact Info) Description 04/09/2025 Abstract [facility] [address] [place] [place] [phone] Chidi Rincon DO [address] [place] [address] Social History Tobacco Use Types Packs/Day Years [...] 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
--- OUTSIDE RECORDS SUMMARY | 2025-04-20 10:17 | XMS_ITS | Clinical Summary ---
Author Organization [facility] Address [id number] [address] [place] [address] Care Team Providers Care Sample Color Maker Name Role Phone Yoselin Hurd MD Primary Care Provider Allergies No known active allergies Medications * This document contains information received from the source organization and may not represent a complete record from that organization. citalopram (CeleXA) 20 mg tablet 1 Active diclofenac (VOLTAREN) 50 mg EC tablet 1 Active aspirin/acetami nophen/caffeine (EXCEDRIN MIGRAINE ORAL) Take by mouth as needed. Active dexAMETHasone (DECADRON) 4 mg tabletIndicatio ns:Triple negative malignant neoplasm of breast (CMS-HCC) Take 2 tablets (8 mg) by mouth once daily on days 2, 3 and 4. 60 tablet 2 1 Active ondansetron (ZOFRAN) 8 mg tabletIndicatio ns:Triple negative malignant neoplasm of breast (CMS-HCC) Starting on day 3, take 1 tablet by mouth twice daily as needed for severe nausea or vomiting. 60 tablet 2 1 Active LORazepam (ATIVAN) 1 mg tabletIndicatio ns:Triple negative malignant neoplasm of breast (CMS-HCC) Take 1 tablet by mouth every 6 hours as needed for moderate nausea or vomiting. 30 tablet 1 Active prochlorperazin e (COMPAZINE) 10 mg tabletIndicatio ns:Triple negative malignant neoplasm of breast (CMS-HCC) Take 1 tablet by mouth every 6 hours as needed for mild nausea or vomiting. 60 tablet 2 1 Active lidocaine-prilo aiyana (EMLA) creamIndication s:Triple negative malignant neoplasm of breast (CMS-HCC) Apply 1 application topically as needed for pain. 60 g 3 Active Active Problems Problem Noted Date Diagnosed Date Triple negative malignant neoplasm of breast Carcinoma of lower outer quadrant of right breas t 06/05/2021 Cancer Staging:Clinical stage from 05/26/2021:Stage IIB(cT2, cN0, cM0, G3, ER-, NV-, HER2-) - Signed by Jana Alvarado DO on 06/05/2021 Family History Medical History Relation Name Comments Lung cancer Brother 3 Cancer Father COPD Mother Breast cancer Neg Hx Relation Name Status Comments Brother 1 Alive Brother 2 Alive Brother 3 (Age 57) Father (Age 53) Mother Alive Social History Tobacco Use Types Packs/Day Years Used Date Smoking Tobacco: Former Cigarettes Smokeless Tobacco: Never Alcohol Use Standard Drinks/Week Comments Yes 2 (1 standard drink = 0.6 oz pur e alcohol) once week Childcare Answer Date Recorded Childcare Unknown 12/21/2018 Employment Answer Date Recorded Employment Unknown 12/21/2018 Purpose - Life Answer Date Recorded Purpose and direction in life Unknown Comments Unknown Sex and Gender Information Value Date Recorded Sex Assigned at Not on file Legal Sex Female 2:17 PM EST Gender Identity Not on file Sexual Orientation Not on file Last Filed Vital Signs Vital Sign Reading Time Taken Comments Blood Pressure 126/82 06/30/2021 2:44 PM EST Pulse 72 06/23/2021 8:54 AM EST Temperature 36.1 C (96.9 F) 06/30/2021 2:44 PM EST Respiratory Rate 16 06/20/2021 12:00 PM EST Oxygen Saturation 100% 06/23/2021 8:54 AM EST Inhaled Oxygen Concentration - - Weight 89 kg (196 lb 3.2 oz) 06/30/2021 2:44 PM EST Height 157.5 cm (5' 2 ) 06/30/2021 2:44 PM EST Body Mass Index 35.89 06/30/2021 2:44 PM EST Plan of Treatment Health Maintenance Due Date Last Done Comments Depression Screening 1989 Tobacco Screening 1989 Adult BMI Screening 1995 DTaP,Tdap and Td Vaccines (1 - Tdap) 1996 COVID-19 Vaccine (3 - Moderna risk series) 09/18/2020 08/21/2020, 07/25/2020 Influenza Vaccine 03/19/2025 04/26/2018 Pap Smear 04/07/2025 04/07/2022 Medical Devices Implanted Type Area Admin Assistant Device Identifier Shelf Expiration Date Model / Serial / Lot Marker Brstbio Hydromark Ti Opn Coil 18ga Mamtm Elt Prb Cor Mammotome Stereotactic - [id number] - [id number] Implanted:Qty: 1 on 06/19/2021 at [facility] Other Implant Right: Breast [employer] MAMMOTOME 04/24/2024 [id number] 8-T3 / [id number] / [id number] Insurance Care Teams Sample Color Maker Relationship Specialty Start Date End Date Yoselin Hurd MD PCP - General Family Medicine 05/19/21
--- OUTSIDE RECORDS SUMMARY | 2025-04-20 10:17 | XMS_ITS | Encounter Summary ---
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 Last mammogram states follow up in 1 year.Patient was made aware in detailed voicemail. * Telephone Encounter - Geni Minaya LPN - 04/09/2025 10:29 AM EDT Patient called the office asking the frequency of her mammogram testing. Patient was advised we do not have the latest imaging and will call to get this. Patient states that she does have appointments and would like to verify. Patient advised only appt we have is 05/02 and we will call to get reports from [facility]. Called and spoke with Cielo and she is sending these reports. documented in this encounter Plan of Treatment Not on file documented as of this encounter Visit Diagnoses Not on filedocumented in this encounter Care Teams Field Representative Relationship Specialty Start Date End Date Chinmay Muñoz MD PCP - General Family Medicine 06/01/24 Faby Sparrow NP Nurse Practitioner Family Medicine 06/01/24 documented as of this encounter
--- OUTSIDE RECORDS SUMMARY | 2025-04-20 10:17 | XMS_ITS | Encounter Summary ---
Author Organization [facility] Address [address] [facility] [place] [address] Care Team Providers Care Comp Field Case Manager Name Role Phone Chinmay Muñoz MD Primary Care Provider [phone] Faby Sparrow HOME ENERGY CONSULTANT SUPERVISOR Unavailable Encounter Details Date Type Department Care Team (Late st Contact Info) Description 04/09/2025 Abstract [facility] [address] [facility] [place] [address] Chidi Rincon DO [address] [place] [address] Social History Tobacco Use Types Packs/Day Years [...] 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
--- OUTSIDE RECORDS SUMMARY | 2025-04-20 10:18 | XMS_ITS | Encounter Summary ---
Author Organization [facility] Address [address] [place] [address] Care Team Providers Care Tube Cleaner Name Role Phone Shaikh SÁNCHEZ España Primary Care Provider [phone] Chinmay Muñoz MD Primary Care Provider [phone] Faby Sparrow NP Unavailable [phone] Shaikh SÁNCHEZ España Unavailable [phone] Encounter Details Date Type Department Care Team (Late st Contact Info) Description 11/04/2023 Clinisync Result Encounter [facility] External Department Unsolicited Chidi Rincon, DO [address] [place] [address] Social History Tobacco Use Types Packs/Day Years [...] 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 as of this encounter Plan of Treatment Not on file documented as of this encounter Procedures Procedure Name Priority Date/Time Associated Diagnosis Comments MM TOMOSYNTHESIS DIAGNOSTIC BI 11/04/2023 12:57 PM EDT documented in this encounter Results * MM TOMOSYNTHESIS DIAGNOSTIC BI (11/04/2023 12:57 PM EDT) Anatomical Region Laterality Modality Other 11/04/2023 12:5 7 PM EDT Narrative 11/04/2023 12:59 [place] [address] Mammography Report Signed Patient: ALLYSON HARRINGTON MR#: [id number] : 1975 Acct:[id number] Age/Sex: 48 / F ADM Date: 11/04/23 Loc: MAMMO Attending Dr: Chidi Rincon D.O. Ordering Physician: Chidi Rincon D.O. Results: Date of Service: 11/04/23 Follow Up: Procedure(s): MM tomosynthesis diagnostic BI Accession Number(s): [id number] cc: Shaikh Ollie España; Chidi Rincon D.O. Patient Name: ALLYSON HARRINGTON MR#: [id number] : 1975 Exam Date: 11/04/2023 Ordering Doctor: [...] lung cancer at age 54. LOCATION: [facility] BREAST COMPOSITION: The breasts are heterogeneously dense,which [...] Signed By: 11/04/23 1259 DD/ 1257 TD/TT: Glass Glazier: Procedure Note Radiology, Radiologist, MD - 11/04/2023 [place] [address] Mammography Report Signed Patient: ALLYSON HARRINGTON MMR#: [id number] : 1975Acct:[id number] Age/Sex: 48 / FADM Date: 11/04/23 Loc: MAMMO Attending Dr: Chidi Rincon D.O. Ordering Physician: Chidi Rincon D.O.Results: Date of Service: 11/04/23Follow Up: Procedure(s): MM tomosynthesis diagnostic BI Accession Number(s): [id number] cc: Shaikh Ollie España; Chidi Rincon D.O. Patient Name: ALLYSON HARRINGTON MR#: [id number] : 1975 Exam Date: 11/04/2023 Ordering Doctor: [...] lung cancer at age 54. LOCATION: [facility] BREAST COMPOSITION: The breasts are heterogeneously dense,which [...] on 11/04/2023 at 12:09 Approved by: Magdiel Leiav M.D. on 11/04/2023 at 12:57 Dictated By: Magdiel Leiva M.D. Signed By:11/04/23 1259 DD/ 1257 TD/TT: Glass Glazier: us Chidi Sergey DO [facility] Final Result documented in this encounter Visit Diagnoses Not on filedocumented in this encounter Care Teams Tube Cleaner Relationship Specialty Start Date End Date Shaikh España MD PCP - General Internal Medicine 10/07/23 05/31/24 Chinmay Muñoz MD PCP - General Family Medicine 06/01/24 Shaikh España MD [address] [place] [address] [facility] 06/18/24 Faby Sparrow NP Nurse Practitioner Family Medicine 06/01/24 documented as of this encounter
--- OUTSIDE RECORDS SUMMARY | 2025-04-20 10:18 | XMS_ITS | Encounter Summary ---
Author Organization [facility] Address [address] [place] [address] Care Team Providers Care Bellhop Captain Name Role Phone Shaikh SÁNCHEZ España Primary Care Provider [phone] Chinmay Muñoz MD Primary Care Provider [phone] Faby Sparrow NP Unavailable [phone] Shaikh SÁNCHEZ España Unavailable [phone] Encounter Details Date Type Department Care Team (Late st Contact Info) Description 12/31/2023 Clinisync Result Encounter [facility] External Department Unsolicited Provider, Generic External Data Social History Tobacco Use Types Packs/Day Years Used Date Smoking Tobacco: Never Passive Smoke Exposure: Never Smokeless Tobacco: Never Alcohol Use Standard Drinks/Week Comments Never 0 (1 standard drink = 0.6 oz pure alcohol) caffeine: 1-2 cups per day coffee PHQ-2 Answer Date Recorded Patient Health Questionnaire-2 Score 1 12/14/2023 Comments No Sex and Gender Information Value Date Recorded Sex Assigned at Female 12/31/2023 6:22 PM EDT Legal Sex Female 7:23 PM EDT Gender Identity Not on file Sexual Orientation Not on file 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 documented as of this encounter Plan of Treatment Not on file documented as of this encounter Procedures Procedure Name Priority Date/Time Associated Diagnosis Comments XR CERVICAL SPINE 2-3V 12/31/2023 9:10 AM EDT documented in this encounter Results * XR CERVICAL SPINE 2-3V (12/31/2023 9:10 AM EDT) Anatomical Region Laterality Modality Other 12/31/2023 9:10 AM EDT Narrative 12/31/2023 9:13 AM EDT [address] [address] XRay Report Signed Patient: ALLYSON HARRINGTON MR#: [id number] : 1975 Acct:[id number] Age/Sex: 48 / F ADM Date: 12/30/23 Loc: RAD Attending Dr: Glenna-Staff Physician Ollie Ordering Physician: PhysicianTl M.D. Date of Service: 12/30/23 Procedure(s): XR cervical spine 2-3V Accession Number(s): [id number] cc: Shaikh Ollie España; Tl Valera M.D. [address] [address] Patient Name: ALLYSON HARRINGTON MRN: [id number] date: 1975 Sex: F Assigned Patient Location: [facility] Current Patient Location: [facility] Accession/Order Number: [id number] Exam Date: 12/30/2023 15:30 Report Date: 12/31/2023 09:10 At the request of: NON-STAFF PHYSICIAN Procedure: XR cervical spine 2-3V EXAMINATION: XR cervical spine 2-3V HISTORY: cervical pain COMPARISON: No relevant comparison available. FINDINGS: BONES: Normal alignment with no acute fracture or spondylolisthesis. Reversal of normal lordosis. Moderate spondylosis and facet osteoarthropathy C4-C7 DISC SPACES: Moderate to severe disc space narrowing C4-C7 PARASPINOUS: Negative. No paraspinous abnormality is seen. OTHER: Negative. XR/XR cervical spine 2-3V IMPRESSION: Moderate degenerative changes with reversal of cervical lordosis Electronically authenticated by: KRISTA ROBERTSON Date: 12/31/2023 09:10 Dictated By: Krista Robertson M.D. Signed By: 12/31/23912 DD/ 9 TD/TT: Bobbin Sorter: Procedure Note Radiology, Radiologist, MD - 12/31/[address] [address] XRay Report Signed Patient: ALLYSON HARRINGTON MMR#: [id number] : 1975Acct:[id number] Age/Sex: 48 / FADM Date: 12/30/23 Loc: RAD Attending Dr: Non-Staff Physician Ollie Ordering Physician: PhysicianTl M.D. Date of Service: 12/30/23 Procedure(s): XR cervical spine 2-3V Accession Number(s): [id number] cc: Shaikh Ollie España; Tl Valera M.D. The [place] [id number] Patient Name: ALLYSON HARRINGTON MRN: [id number] date: 1975 Sex: F Assigned Patient Location: [facility] Current Patient Location: [facility] Accession/Order Number: [id number] Exam Date: 12/30/2023 15:30 Report Date: 12/31/2023 09:10 At the request of: NON-STAFF PHYSICIAN Procedure: XR cervical spine 2-3V EXAMINATION: XR cervical spine 2-3V HISTORY: cervical pain COMPARISON: No relevant comparison available. FINDINGS: BONES: Normal alignment with no acute fracture or spondylolisthesis.Reversal of normal lordosis. Moderate spondylosis and facet osteoarthropathy C4-C7 DISC SPACES: Moderate to severe disc space narrowing C4-C7 PARASPINOUS: Negative. No paraspinous abnormality is seen. OTHER: Negative. XR/XR cervical spine 2-3V IMPRESSION: Moderate degenerative changes with reversal of cervical lordosis Electronically authenticated by: KRISTA ROBERTSON Date: 12/31/2023 09:10 Dictated By: Krista Robertson M.D. Signed By:12/31/23912 DD/ 9 TD/TT: Bobbin Sorter: us Generic External Data Provider [facility] Final Result documented in this encounter Visit Diagnoses Not on filedocumented in this encounter Care Teams Bellhop Captain Relationship Specialty Start Date End Date Shaikh España MD PCP - General Internal Medicine 10/07/23 05/31/24 Chinmay Muñoz MD PCP - General Family Medicine 06/01/24 Shaikh España MD [address] [place] [address] [facility] Faby Sparrow NP Nurse Practitioner Family Medicine 06/01/24 documented as of this encounter
--- OUTSIDE RECORDS SUMMARY | 2025-04-20 10:18 | XMS_ITS | Encounter Summary ---
Author Organization [facility] Address [address] [place] [place] [address] Care Team Providers Care Medical Underwriter Name Role Phone Shaikh SÁNCHEZ España Primary Care Provider [phone] Chinmay Muñoz MD Primary Care Provider [phone] Faby Sparrow NP Unavailable [phone] Shaikh SÁNCHEZ España Unavailable [phone] Encounter Details Date Type Department Care Team (Late st Contact Info) Description 11/10/2023 Abstract [facility] [address] [place] [address] Geni Minaya LPN [address] [facility] [place], [place] [address] Social History Tobacco Use Types Packs/Day Years [...] 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
--- OUTSIDE RECORDS SUMMARY | 2025-04-20 10:18 | XMS_ITS | Encounter Summary ---
Author Organization [facility] Address [address] [place] [address] Care Team Providers Care Train Driver Name Role Phone Shaikh SÁNCHEZ España Primary Care Provider [phone] Chinmay Muñoz MD Primary Care Provider [phone] Faby Sparrow NP Unavailable [phone] Shaikh SÁNCHEZ sEpaña Unavailable [phone] Encounter Details Date Type Department Care Team (Late st Contact Info) Description 12/31/2023 Orders Only [facility] [address] [place] [address] Shaikh España MD [address] [place] [address] Social History Tobacco Use Types Packs/Day Years [...] 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 as of this encounter Plan of Treatment Not on file documented as of this encounter Procedures Procedure Name Priority Date/Time Associated Diagnosis Comments XR LUMBAR SPINE 2 OR 3V Routine 12/31/2023 9:19 AM EDT XR HIP 2-3 VIEWS LEFT Routine 12/31/2023 9:18 AM EDT XR CERVICAL SPINE 2-3 VIEWS Routine 12/31/2023 9:16 AM EDT XR KNEE 3 VIEWS LEFT Routine 12/30/2023 8:32 AM EDT documented in this encounter Results * XR LUMBAR SPINE 2 OR 3V (12/31/2023 9:19 AM EDT) Anatomical Region Laterality Modality Radiographic Elvia ging us Shaikh Patria POZO IMG XR PROCEDURES Final Result * XR HIP 2-3 VIEWS LEFT (12/31/2023 9:18 AM EDT) Anatomical Region Laterality Modality Radiographic Elvia ging us Shaikh Patria POZO IMG XR PROCEDURES Final Result * XR cervical spine 2 or 3 views (12/31/2023 9:16 AM EDT) Anatomical Region Laterality Modality Spine, C-spine Radiographic Elvia ging us Shaikh Patria POZO IMG XR PROCEDURES Final Result * XR knee 3 views left (12/30/2023 8:32 AM EDT) Anatomical Region Laterality Modality Lower Extremities, Knee Left Radiogra phic Imaging us Shaikh Patria POZO IMG XR PROCEDURES Final Result documented in this encounter Visit Diagnoses Not on filedocumented in this encounter Care Teams Train Driver Relationship Specialty Start Date End Date Shaikh España MD PCP - General Internal Medicine 10/07/23 05/31/24 Chinmay Muñoz MD PCP - General Family Medicine 06/01/24 Shaikh España MD [address] [place] [address] PCP - Johnny Gibson 06/18/24 Faby Sparrow NP Nurse Practitioner Family Medicine 06/01/24 documented as of this encounter
--- OUTSIDE RECORDS SUMMARY | 2025-04-20 10:18 | XMS_ITS | Encounter Summary ---
Author Organization [facility] Address [address] [facility] [place] [address] Care Team Providers Care Instrument Sterilizer Name Role Phone Shaikh SÁNCHEZ España Primary Care Provider [phone] Chinmay Muñoz MD Primary Care Provider [phone] Faby Sparrow NP Unavailable [phone] Shaikh ÁSNCHEZ España Unavailable [phone] Encounter Details Date Type Department Care Team (Late st Contact Info) Description 11/11/2023 Abstract [facility] [address] [place] [address] Geni Minaya LPN [address] [facility] [place], [place] [id number] Social History Tobacco Use Types Packs/Day Years [...] 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
--- OUTSIDE RECORDS SUMMARY | 2025-04-20 10:18 | XMS_ITS | Encounter Summary ---
Author Organization [facility] Address [address] 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 of this encounter Plan of Treatment Not on file documented as of this encounter Procedures Procedure Name Priority Date/Time Associated Diagnosis Comments XR HIP 2 OR 3 VW LEFT 12/31/2023 9:09 AM EDT documented in this encounter Results * XR hip left 2 or 3 views (12/31/2023 9:09 AM EDT) Anatomical Region Laterality Modality Lower Extremities, Hip Left Radiograp hic Imaging 12/31/2023 9:09 AM EDT Narrative 12/31/2023 9:11 [place] [address] XRay Report Signed Patient: ALLYSON HARRINGTON MR#: [id number] : 1975 Acct:[id number] Age/Sex: 48 / F ADM Date: 12/30/23 Loc: [facility] Attending Dr: Shaikh Patria Levin Ordering Physician: Shaikh Ollie España Date of Service: 12/30/23 Procedure(s): XR hip LT 2V w/ pelvis Accession Number(s): [id number] cc: Shaikh Ollie España [address] [address] Patient Name: ALLYSON HARRINGTON MRN: [id number] date: 1975 Sex: F Assigned Patient Location: [facility] Current Patient Location: [facility] Accession/Order Number: [id number] Exam Date: 12/30/2023 15:30 Report Date: 12/31/2023 09:09 At the request of: SHAIKH PATRIA Procedure: XR hip LT 2V w/ pelvis PROCEDURE: XR hip LT 2V w/ pelvis COMPARISON: None. HISTORY: left hip pain FINDINGS: BONES:No fracture, acute abnormality, or significant arthropathy. Moderate degenerative changes with rotatory dextrocurvature of the lumbar spine SOFT TISSUES:Negative. No visible soft tissue swelling. EFFUSION:None visible. OTHER: Tubal ligation clips. XR/XR hip LT 2V w/ pelvis IMPRESSION: No acute abnormality Electronically authenticated by: KRISTA ROBERTSON Date: 12/31/2023 09:09 Dictated By: Krista Robertson M.D. Signed By: 12/31/23 0911 DD/ 8 TD/TT: Broomcorn Grader: Procedure Note Radiology, Radiologist, - 12/31/[address] [address] XRay Report Signed Patient: ALLYSON HARRINGTON MMR#: [id number] : 1975Acct:[id number] Age/Sex: 48 / FADM Date: 12/30/23 Loc: RAD Attending Dr: Shaikh Patria Levin Ordering Physician: Shaikh Ollie España Date of Service: 12/30/23 Procedure(s): XR hip LT 2V w/ pelvis Accession Number(s): [id number] cc: Shaikh Ollie España [address] [address] Patient Name: ALLYOSN HARRINGTON MRN: [facility]:[id number] date: 1975 Sex: F Assigned Patient Location: [facility] Current Patient Location: [facility] Accession/Order Number: [id number] Exam Date: 12/30/2023 15:30 Report Date: 12/31/2023 09:09 At the request of: SHAIKH PATRIA Procedure: XR hip LT 2V w/ pelvis PROCEDURE: XR hip LT 2V w/ pelvis COMPARISON: None. HISTORY: left hip pain FINDINGS: BONES:No fracture, acute abnormality, or significant arthropathy. Moderate degenerative changes with rotatory dextrocurvature of the lumbar spine SOFT TISSUES:Negative. No visible soft tissue swelling. EFFUSION:None visible. OTHER: Tubal ligation clips. XR/XR hip LT 2V w/ pelvis IMPRESSION: No acute abnormality Electronically authenticated by: KRISTA ROBERTSON Date: 12/31/2023 09:09 Dictated By: Krista Robertson M.D. Signed By:12/31/23910 DD/ 8 TD/TT: Broomcorn Grader: Shaikh Patria POZO IMG XR PROCEDURES Final Result documented in this encounter Visit Diagnoses Not on filedocumented in this encounter Care Teams Panel Instrument Repairer Relationship Specialty Start Date End Date Shaikh España MD PCP - General Internal Medicine 10/07/23 05/31/24 Chinmay Muñoz MD PCP - General Family Medicine 06/01/24 Shaikh España MD [address] [place] [address] [facility] Faby Sparrow NP Nurse Practitioner Family Medicine 06/01/24 documented as of this encounter
--- OUTSIDE RECORDS SUMMARY | 2025-04-20 10:18 | XMS_ITS | Encounter Summary ---
Author Organization [facility] Address [address], [address] [place] [address] Care Team Providers Care Cooking Appliance Repair Technician Name Role Phone Yoselin Hurd MD Primary Care Provider Unavailab le Reason for Visit * Reason Comments Medication Refill Encounter Details Date Type Department Care Team (Late st Contact Info) Description 08/08/2022 Refill [facility] [address] [place] [phone] Nader Alicia MD [address] [place] [address] Medication Refill Social History Tobacco Use Types Packs/Day Years Used Date Smoking Tobacco: Former Smokeless Tobacco: Former Alcohol Use Standard Drinks/Week Comments Never 0 (1 standard drink = 0.6 oz pur e alcohol) Comments No Sex and Gender Information Value Date Recorded Sex Assigned at Not on file Legal Sex Female 10:56 AM EDT Gender Identity Not on file Sexual Orientation Not on file documented as of this encounter Plan of Treatment Not on file documented as of this encounter Visit Diagnoses Not on filedocumented in this encounter Care Teams Cooking Appliance Repair Technician Relationship Specialty Start Date End Date Yoselin Hurd MD [address] [place] [address] PCP - General Specialist 02/04/22 documented as of this encounter
--- OUTSIDE RECORDS SUMMARY | 2025-04-20 10:18 | XMS_ITS | Encounter Summary ---
Author Organization [facility] Address [address] [place] [facility] [place] [address] Care Team Providers Care Teacher Counselor Name Role Phone Shaikh SÁNCHEZ España Primary Care Provider [phone] Chinmay Muñoz MD Primary Care Provider [phone] Faby Sparrow NP Unavailable [phone] Shaikh SÁNCHEZ España Unavailable [phone] Encounter Details Date Type Department Care Team (Late st Contact Info) Description 12/31/2023 Clinisync Result Encounter [facility] External Department Unsolicited Shaikh España MD [address] [facility] [place] [address] Social History Tobacco Use Types Packs/Day Years [...] 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 of this encounter Plan of Treatment Not on file documented as of this encounter Procedures Procedure Name Priority Date/Time Associated Diagnosis Comments XR KNEE 3 VIEWS LEFT 12/31/2023 8:00 AM EDT documented in this encounter Results * XR knee 3 views left (12/31/2023 8:00 AM EDT) Anatomical Region Laterality Modality Lower Extremities, Knee Left [facility] 12/31/2023 8:00 AM EDT Narrative 12/31/2023 8:03 [place] [address] XRay Report Signed Patient: ALLYSON HARRINGTON MR#: [id number] : 1975 Acct:[id number] Age/Sex: 48 / F ADM Date: 12/30/23 Loc: RAD Attending Dr: Shaikh Patria Levin Ordering Physician: Shaikh Ollie España Date of Service: 12/30/23 Procedure(s): XR knee LT 3V Accession Number(s): [id number] cc: Shaikh Ollie España [place] [address] Patient Name: ALLYSON HARRINGTON MRN: [id number] date: 1975 Sex: F Assigned Patient Location: [facility] Current Patient Location: Accession/Order Number: [id number] Exam Date: 12/30/2023 15:30 Report Date: 12/31/2023 08:00 At the request of: SHAIKH PATRIA Procedure: XR knee LT 3V PROCEDURE: XR knee LT 3V COMPARISON: None. HISTORY: LEFT KNEE PAIN FINDINGS: BONES:No acute fracture or dislocation. Fragmented anterior tibial tubercle, chronic. SOFT TISSUES:Negative. No visible soft tissue swelling. EFFUSION:None visible. OTHER: Negative. XR/XR knee LT 3V IMPRESSION: No acute abnormality Electronically authenticated by: KRISTA ROBERTSON Date: 12/31/2023 08:00 Dictated By: Krista Robertson M.D. Signed By: 12/31/23 08 DD/ 0800 TD/TT: Milk Pickup Driver: Procedure Note Radiology, Radiologist, MD - 12/31/[address] [address] XRay Report Signed Patient: ALLYSON HARRINGTON MMR#: [id number] : 1975Acct:[id number] Age/Sex: 48 / FADM Date: 12/30/23 Loc: RAD Attending Dr: Shaikh Patria Levin Ordering Physician: Shaikh Ollie España Date of Service: 12/30/23 Procedure(s): XR knee LT 3V Accession Number(s): [id number] cc: Shaikh Ollie España The [place] [id number] Patient Name: ALLYSON HARRINGTON MRN: [id number] date: 1975 Sex: F Assigned Patient Location: RAD Current Patient Location: Accession/Order Number: [id number] Exam Date: 12/30/2023 15:30 Report Date: 12/31/2023 08:00 At the request of: SHAIKH PATRIA Procedure: XR knee LT 3V PROCEDURE: XR knee LT 3V COMPARISON: None. HISTORY: LEFT KNEE PAIN FINDINGS: BONES:No acute fracture or dislocation. Fragmented anterior tibialtubercle, chronic. SOFT TISSUES:Negative. No visible soft tissue swelling. EFFUSION:None visible. OTHER: Negative. XR/XR knee LT 3V IMPRESSION: No acute abnormality Electronically authenticated by: KRISTA ROBERTSON Date: 12/31/2023 08:00 Dictated By: Krista Robertson M.D. Signed By:12/31/23 0803 DD/ 0800 TD/TT: Milk Pickup Driver: us Shaikh Patria POZO IMG XR PROCEDURES Final Result documented in this encounter Visit Diagnoses Not on filedocumented in this encounter Care Teams Teacher Counselor Relationship Specialty Start Date End Date Shaikh España MD PCP - General Internal Medicine 10/07/23 05/31/24 Chinmay Muñoz MD PCP - General Family Medicine 06/01/24 Shaikh España MD [address] [place] [address] PCP - [facility] 06/18/24 Faby Sparrow NP Nurse Practitioner Family Medicine 06/01/24 documented as of this encounter
--- OUTSIDE RECORDS SUMMARY | 2025-04-20 10:18 | XMS_ITS | Encounter Summary ---
Author Organization [facility] Address [address] [facility] [place] [address] Care Team Providers Care Program Or Project Administrator Name Role Phone Shaikh SÁNCHEZ España Primary Care Provider [phone] Chinmay Muñoz MD Primary Care Provider [phone] Faby Sparrow NP Unavailable [phone] Shaikh SÁNCHEZ España Unavailable [phone] Encounter Details Date Type Department Care Team (Late st Contact Info) Description 11/11/2023 Abstract [facility] [address] 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
--- OUTSIDE RECORDS SUMMARY | 2025-04-20 10:18 | XMS_ITS | Clinical Summary ---
Author Organization [facility] Address [address] [place] [address] Care Team Providers Care Computer Forwarding System Markup Clerk Name Role Phone Jasbir Limon MD Primary Care Provider Allergies No known active allergies Medications citalopram (CELEXA) 20 mg tablet Take 20 mg by mouth once daily. 02/27/2021 Active omeprazole (PRILOSEC) 20 mg capsule Take 20 mg by mouth twice daily. 11/29/2021 Active Social History Tobacco Use Types Packs/Day Years Used Date Smoking Tobacco: Former Smokeless Tobacco: Never Area Deprivation Index Answer Date Francesco rded National Score (1-100), lower number is lower ri sk 65 08/05/2022 State Score (1-10), lower number is lower risk N ot on file 08/05/2022 Data from: https://www.neighborhoodatlas.medicine.[facility].edu/. Last address used for calculation [address] 08/05/2022 Comments Unknown Sex and Gender Information Value Date Recorded Sex Assigned at Female 01/12/2022 9:55 AM EDT Legal Sex Female 9:32 AM EST Gender Identity Female 01/12/2022 9:55 AM EDT Sexual Orientation Straight 01/12/2022 9: 55 AM EDT Last Filed Vital Signs Vital Sign Reading Time Taken Comments Blood Pressure 149/86 01/15/2022 3:34 PM EDT Pulse 72 01/15/2022 3:34 PM EDT Temperature 36.7 C (98.1 F) 01/15/2022 3:34 PM EDT Respiratory Rate - - Oxygen Saturation - - Inhaled Oxygen Concentration - - Weight 87.6 kg (193 lb 1.6 oz) 01/15/2022 3:34 P M EDT Height 160 cm (5' 3 ) 01/15/2022 3:34 PM EDT Body Mass Index 34.21 01/15/2022 3:34 PM EDT Plan of Treatment Health Maintenance Due Date Last Done Comments Anxiety Screening 1995 Depression Screening 1995 HIV Screening 1995 Hepatitis C Screening 1995 DTaP,Tdap,Td Vaccine (1 - Tdap) 1996 Hepatitis B Vaccine (1 of 3 - 19+ 3-dose series) 1996 Cervical Cancer Screening 1998 CT Colonography 2022 Cologuard (FIT-DNA) 2022 Colonoscopy 2022 Colorectal Cancer Screening 2022 Diabetes Screening 2022 Fecal Occult Blood 2022 Lipid Screening 2022 Sigmoidoscopy 2022 Mammogram Screening 04/22/2022 04/22/2021 Covid-19 Vaccine ( season) 03/19/202509/2020, 07/25/2020 Influenza Vaccine (#1) 2025 04/26/2018 Care Teams Computer Forwarding System Markup Clerk Relationship Specialty Start Date End Date Jasbir Limon MD [address] [place] [address] PCP - General 10/28/00
--- OUTSIDE RECORDS SUMMARY | 2025-04-20 10:18 | XMS_ITS | Encounter Summary ---
Author Organization [facility] Address [address] [facility] [place] [address] Care Team Providers Care Invoice Classification Clerk Name Role Phone Shaikh SÁNCHEZ España Primary Care Provider [phone] Chinmay Muñoz MD Primary Care Provider [phone] Faby Sparrow NP Unavailable [phone] Shaikh SÁNCHEZ España Unavailable [phone] Encounter Details Date Type Department Care Team (Late st Contact Info) Description 11/12/2023 Abstract [facility] [address] [place] [phone] Geni Minaya LPN [address] [place], [place] [address] Social History Tobacco Use Types Packs/Day Years [...] 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
--- OUTSIDE RECORDS SUMMARY | 2025-04-20 10:18 | XMS_ITS | Encounter Summary ---
Author Organization [facility] Address [address] [place] [address] Care Team Providers Care Header Machine Operator Name Role Phone Shaikh SÁNCHEZ España Primary Care Provider [phone] Shaikh SÁNCHEZ España Primary Care Provider [phone] Chinmay Muñoz MD Primary Care Provider [phone] Faby Sparrow NP Unavailable [phone] Shaikh SÁNCHEZ España Unavailable [phone] Encounter Details Date Type Department Care Team (Late st Contact Info) Description 08/27/2023 Clinisync Result Encounter [facility] External Department Unsolicited Shaikh España MD [address] [place] [address] Social History Tobacco Use Types Packs/Day Years [...] 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 as of this encounter Plan of Treatment Not on file documented as of this encounter Procedures Procedure Name Priority Date/Time Associated Diagnosis Comments XR WRIST LT MIN 3 V 08/27/2023 3 :48 PM EST documented in this encounter Results * XR WRIST LT MIN 3 V (08/27/2023 3:48 PM EST) Anatomical Region Laterality Modality Radiographic Elvia ging 08/27/2023 3:48 PM EST Narrative 08/27/2023 3:51 [place] [address] XRay Report Signed Patient: ALLYSON HARRINGTON MR#: [id number] : 1975 Acct:[id number] Age/Sex: 48 / F ADM Date: 08/27/23 Loc: RAD Attending Dr: Shaikh Patria Levin Ordering Physician: Shaikh Ollie España Date of Service: 08/27/23 Procedure(s): XR wrist LT min 3V Accession Number(s): [id number] cc: Shaikh Ollie España [place] [address] Patient Name: ALLYSON HARRINGTON MRN: [id number] date: 1975 Sex: F Assigned Patient Location: [facility] Current Patient Location: [facility] Accession/Order Number: [id number] Exam Date: 08/27/2023 15:18 Report Date: 08/27/2023 15:48 At the request of: SHAIKH PATRIA Procedure: XR wrist LT min 3V EXAM: XR wrist LT min 3V HISTORY: Left wrist pain M25.532, pain of left thumb M79.645 COMPARISON: None. TECHNIQUE: 3 views of the right wrist were obtained. FINDINGS: There is no evidence of an acute fracture or dislocation. Ulnar minus variance is present. There is mild narrowing of the first carpometacarpal joint. The remainder the joint spaces are intact throughout the wrist. No abnormal soft tissue calcifications are present. XR/XR wrist LT min 3V IMPRESSION: No acute fracture or dislocation. Mild degenerative changes at the first carpometacarpal joint. The remainder the joint spaces are intact. Electronically authenticated by: MEHDI HILL Date: 08/27/2023 15:48 Dictated By: Mehdi Hill M.D. Signed By: 08/27/23 1551 DD/ 1548 TD/TT: Professional Security Officer: Procedure Note Radiology, Radiologist, - 08/27/2023 [place] [address] XRay Report Signed Patient: ALLYSON HARRINGTON MMR#: [id number] : 1975Acct:[id number] Age/Sex: 48 / FADM Date: 08/27/23 Loc: RAD Attending Dr: Shaikh Patria Levin Ordering Physician: Shaikh Ollie España Date of Service: 08/27/23 Procedure(s): XR wrist LT min 3V Accession Number(s): [id number] cc: Shaikh Ollie España The [place] [address] Patient Name: ALLYSON HARRINGTON MRN: [id number] date: 1975 Sex: F Assigned Patient Location: [facility] Current Patient Location: [facility] Accession/Order Number: [id number] Exam Date: 08/27/2023 15:18 Report Date: 08/27/2023 15:48 At the request of: SHAIKH PATRIA Procedure: XR wrist LT min 3V EXAM: XR wrist LT min 3V HISTORY: Left wrist pain M25.532, pain of left thumb M79.645 COMPARISON: None. TECHNIQUE: 3 views of the right wrist were obtained. FINDINGS: There is no evidence of an acute fracture or dislocation. Ulnar minus variance is present. There is mild narrowing of the first carpometacarpal joint. The remainder the joint spaces are intact throughout the wrist. No abnormal soft tissue calcifications are present. XR/XR wrist LT min 3V IMPRESSION: No acute fracture or dislocation. Mild degenerative changes at the first carpometacarpal joint. The remainder the joint spaces are intact. Electronically authenticated by: MEHDI HILL Date: 08/27/2023 15:48 Dictated By: Mehdi Hill M.D. Signed By:08/27/23 1551 DD/ 1548 TD/TT: Professional Security Officer: Shaikh Patria POZO IMG XR PROCEDURES Final Result documented in this encounter Visit Diagnoses Not on filedocumented in this encounter Care Teams Header Machine Operator Relationship Specialty Start Date End Date Shaikh España MD PCP - General Internal Medicine 11/24/22 10/06/23 Shaikh España MD PCP - General Internal Medicine 10/07/23 05/31/24 Chinmay Muñoz MD PCP - General Family Medicine 06/01/24 Shaikh España MD [address] [place] [address] PCP - [facility] 06/18/24 Faby Sparrow NP Nurse Practitioner Family Medicine 06/01/24 documented as of this encounter
--- OUTSIDE RECORDS SUMMARY | 2025-04-20 10:18 | XMS_ITS | Clinical Summary ---
Author Organization [facility] Address [address], [address] [place] [address] Care Team Providers Care Control Technician Name Role Phone Yoselin Hurd MD Primary Care Provider Unavailab le Allergies No known active allergies Medications aspirin-acetami nophen-caffeine (EXCEDRIN MIGRAINE) 250-250-65 MG per tablet Take 1 tablet by mouth every 6 hours as needed for Headaches Active citalopram (CELEXA) 20 MG tablet Take 20 mg by mouth daily Active DICLOFENAC SODIUM PO Take by mouth Active omeprazole (PRILOSEC) 20 MG delayed release capsule Take 20 mg by mouth in the morning. Active gabapentin (NEURONTIN) 300 MG capsule Take 1 capsule by mouth 3 times daily for 14 days. 42 capsule 2 Active PROMOGRAN AMA WOUND DRESSING MATRIXIndicatio ns:Open wound of right breast, subsequent encounter Apply topically Clean the area and applied the dressing and then cover with a Band-Aid. 20 each 2 2 Active PROMOGRAN AMA WOUND DRESSING MATRIXIndicatio ns:Open wound of right breast, subsequent encounter Apply topically 20 each 2 2 Active Active Problems Problem Noted Date Diagnosed Date Status post breast reconstruction 02/17/2022 Hyperlipidemia 01/23/2022 Family History Medical History Relation Name Comments Lung Cancer Brother Cancer Father COPD Mother Relation Name Status Comments Brother Father Mother Social History Tobacco Use Types Packs/Day Years Used Date Smoking Tobacco: Former Smokeless Tobacco: Former Tobacco Cessation:Counseling Given: No Alcohol Use Standard Drinks/Week Comments Never 0 (1 standard drink = 0.6 oz pur e alcohol) Comments No Sex and Gender Information Value Date Recorded Sex Assigned at Not on file Legal Sex Female 10:56 AM EDT Gender Identity Not on file Sexual Orientation Not on file Last Filed Vital Signs Vital Sign Reading Time Taken Comments Blood Pressure 128/79 03/04/2022 9:15 AM EDT Pulse 59 03/04/2022 9:15 AM EDT Temperature 36.4 C (97.5 F) 02/17/2022 4:00 PM EDT Respiratory Rate 16 03/18/2022 11:21 AM EDT Oxygen Saturation 100% 03/18/2022 11:21 AM EDT Inhaled Oxygen Concentration - - Weight 91.6 kg (202 lb) 03/18/2022 11:21 AM EDT Height 160 cm (5' 3 ) 03/18/2022 11:21 AM EDT Body Mass Index 35.78 03/18/2022 11:21 AM EDT Plan of Treatment Not on file Insurance [employer] Care Teams Control Technician Relationship Specialty Start Date End Date Yoselin Hurd MD [address] [place] [address] PCP - General Specialist 02/04/22
--- OUTSIDE RECORDS SUMMARY | 2025-04-20 10:18 | XMS_ITS | Clinical Summary ---
Author Organization [facility] Address [address] [place] [address] Care Team Providers Care Cotton Breeder Name Role Phone Shaikh SÁNCHEZ España Primary Care Provider [phone] Allergies No known active allergies Medications buPROPion XL (Wellbutrin XL) 150 mg 24 hr tablet Take 150 mg by mouth in the morning. 12/14/2023 Active pantoprazole (ProtoNix) 40 mg EC tablet Take 40 mg by mouth before breakfast. Active hydrocortisone (Cortef) 10 mg tablet Take 10 mg by mouth in the morning. Active citalopram (CeleXA) 20 mg tablet Take 20 mg by mouth in the morning. 02/27/2021 Active rosuvastatin (Crestor) 20 mg tablet Take 20 mg by mouth in the morning. 11/01/2023 Active levothyroxine (Synthroid, Levoxyl) 50 mcg tablet Take 50 mcg by mouth before breakfast. 06/11/2023 Active Social History Tobacco Use Types Packs/Day Years Used Date Smoking Tobacco: Never Smokeless Tobacco: Never Tobacco Cessation:Counseling Given: Not Answered Alcohol Use Standard Drinks/Week Comments Not Currently 0 (1 standard drink = 0.6 oz pur e alcohol) [place] Safety & Environment Answer Date Rec orded Fear of Current or Ex-Partner Not on file Emotionally Abused Not on file 09/09/2023 Physically Abused Not on file 09/09/2023 Sexually Abused Not on file 09/09/2023 Physically or Sexually Abused Not on file Comments Unknown Sex and Gender Information Value Date Recorded Sex Assigned at Not on file Legal Sex Female 9:37 PM EDT Gender Identity Not on file Sexual Orientation Not on file Last Filed Vital Signs Vital Sign Reading Time Taken Comments Blood Pressure 120/68 03/09/2024 9:18 AM EDT Pulse 68 03/09/2024 9:18 AM EDT Temperature - - Respiratory Rate - - Oxygen Saturation 98% 03/09/2024 9:18 AM EDT Inhaled Oxygen Concentration - - Weight 70.9 kg (156 lb 3.2 oz) 03/09/2024 9:18 A M EDT Height 160 cm (5' 3 ) 03/09/2024 9:18 AM EDT Body Mass Index 27.67 03/09/2024 9:18 AM EDT Plan of Treatment Health Maintenance Due Date Last Done Comments CT Colonography 1977 Colonoscopy 1975 Colorectal Cancer Screening 1975 FIT-DNA 1977 FIT 1977 FOBT 1975 Sigmoidoscopy 1977 Depression Screening 1989 Hepatitis B Vaccines (1 of 3 - 19+ 3-dose series) 1996 Adult Tetanus 1999 HPV/Cotest 2007 COVID-19 Vaccine ( season) 2025 08/21/2020, 08/21/2020, 07/25/2020, Additional history exists Influenza Vaccine (#1) 2025 04/27/2024, 2017 Zoster Vaccines (1 of 2) 2027 Cervical Cancer Screening 04/17/2027 Pap Smear 04/17/2027 04/17/2024, 04/07/2022 HIB Vaccines Aged Out No longer eligi ble based on patient's age to complete this topic HPV Vaccines Aged Out No longer eligi ble based on patient's age to complete this topic IPV Vaccines Aged Out No longer eligi ble based on patient's age to complete this topic Meningococcal B Vaccine Aged Out No l onger eligible based on patient's age to complete this topic Meningococcal Vaccine Aged Out No arthur kike eligible based on patient's age to complete this topic Pneumococcal Vaccine: Pediatrics (0 to 5 Years) and At-Risk Patients (6 to 64 Years) Aged Out No longer eligible based on patient's age to complete this topic Rotavirus Vaccines Aged Out No longer eligible based on patient's age to complete this topic Insurance [facility] Care Teams Cotton Breeder Relationship Specialty Start Date End Date Shaikh España MD PCP - General Family Medicine 03/09/24
--- OUTSIDE RECORDS SUMMARY | 2025-04-20 10:18 | XMS_ITS | Encounter Summary ---
Author Organization [facility] Address [address] [place] [address] Care Team Providers Care Offset Machine Operator Name Role Phone Shaikh SÁNCHEZ España Primary Care Provider [phone] Shaikh SÁNCHEZ España Primary Care Provider [phone] Chinmay Muñoz MD Primary Care Provider [phone] Faby Sparrow NP Unavailable [phone] Shaikh SÁNCHEZ España Unavailable [phone] Encounter Details Date Type Department Care Team (Late st Contact Info) Description 08/09/2023 Abstract [facility] IM [address] [place] [address] Shaikh España MD [address] [place] [address] Social History Tobacco Use Types Packs/Day Years [...] 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
--- OUTSIDE RECORDS SUMMARY | 2025-04-20 10:18 | XMS_ITS | Encounter Summary ---
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 encounter Plan of Treatment Not on file documented as of this encounter Procedures Procedure Name Priority Date/Time Associated Diagnosis Comments XR LUMBAR SPINE 2 OR 3V 12/31/2023 9:12 AM EDT documented in this encounter Results * XR LUMBAR SPINE 2 OR 3V (12/31/2023 9:12 AM EDT) Anatomical Region Laterality Modality Radiographic Elvia ging 12/31/2023 9:12 AM EDT Narrative 12/31/2023 9:14 AM EDT [address] [address] XRay Report Signed Patient: ALLYSON HARRINGTON MR#: [id number] : 1975 Acct:[id number] Age/Sex: 48 / F ADM Date: 12/30/23 Loc: RAD Attending Dr: Non-Staff Physician Ollie Ordering Physician: PhysicianTl M.D. Date of Service: 12/30/23 Procedure(s): XR lumbar spine 2-3V Accession Number(s): [id number] cc: Shaikh Ollie España; Tl Valera M.D. [address] [address] Patient Name: ALLYSON HARRINGTON MRN: [id number] date: 1975 Sex: F Assigned Patient Location: [facility] Current Patient Location: [facility] Accession/Order Number: [id number] Exam Date: 12/30/2023 15:30 Report Date: 12/31/2023 09:12 At the request of: NON-STAFF PHYSICIAN Procedure: XR lumbar spine 2-3V EXAMINATION: XR lumbar spine 2-3V HISTORY: lumbar pain COMPARISON: No relevant comparison available. FINDINGS: BONES: Rotatory dextrocurvature centered at L3 no acute fracture or spondylolisthesis. Mild to moderate degenerative spondylosis and facet osteoarthropathy DISC SPACES: Multilevel disc space narrowing most significant at L2-L5 PARASPINOUS: Negative. No paraspinous abnormality is seen. OTHER: Negative. XR/XR lumbar spine 2-3V IMPRESSION: Zoqw-bz-ejvgoone degenerative changes with rotatory dextrocurvature Electronically authenticated by: KRISTA ROBERTSON Date: 12/31/2023 09:12 Dictated By: Krista Robertson M.D. Signed By: 12/31/23913 DD/ 1 TD/TT: Associate Financial Analyst: Procedure Note Radiology, Radiologist, MD - 12/31/[address] [address] XRay Report Signed Patient: ALLYSON HARRINGTON MMR#: [id number] : 1975Acct:[id number] Age/Sex: 48 / FADM Date: 12/30/23 Loc: RAD Attending Dr: Non-Staff Physician Ollie Ordering Physician: PhysicianTl M.D. Date of Service: 12/30/23 Procedure(s): XR lumbar spine 2-3V Accession Number(s): [id number] cc: Shaikh Ollie España; Tl Valera M.D. The [address] [address] Patient Name: ALLYSON HARRINGTON MRN: [id number] date: 1975 Sex: F Assigned Patient Location: [facility] Current Patient Location: [facility] Accession/Order Number: [id number] Exam Date: 12/30/2023 15:30 Report Date: 12/31/2023 09:12 At the request of: NON-STAFF PHYSICIAN Procedure: XR lumbar spine 2-3V EXAMINATION: XR lumbar spine 2-3V HISTORY: lumbar pain COMPARISON: No relevant comparison available. FINDINGS: BONES: Rotatory dextrocurvature centered at L3 no acute fracture or spondylolisthesis. Mild to moderate degenerative spondylosis and facet osteoarthropathy DISC SPACES: Multilevel disc space narrowing most significant at L2-L5 PARASPINOUS: Negative. No paraspinous abnormality is seen. OTHER: Negative. XR/XR lumbar spine 2-3V IMPRESSION: Nnar-me-gwncaloe degenerative changes with rotatory dextrocurvature Electronically authenticated by: KRISTA ROBERTSON Date: 12/31/2023 09:12 Dictated By: Krista Robertson M.D. Signed By:12/31/23913 DD/ 1 TD/TT: Associate Financial Analyst: us Generic External Data Provider IMG XR PROCEDURES Final Result documented in this encounter Visit Diagnoses Not on filedocumented in this encounter Care Teams Sports Marketer Relationship Specialty Start Date End Date Shaikh España MD PCP - General Internal Medicine 10/07/23 05/31/24 Chinmay Muñoz MD PCP - General Family Medicine 06/01/24 Shaikh España MD [address] [place] [address] [facility]CP - [facility] 06/18/24 Faby Sparrow NP Nurse Practitioner Family Medicine 06/01/24 documented as of this encounter
--- OUTSIDE RECORDS SUMMARY | 2025-04-20 10:18 | XMS_ITS | Encounter Summary ---
Author Organization [facility] Address [address] [place] [address] Care Team Providers Care Recessing Machine Operator Name Role Phone Shaikh SÁNCHEZ España Primary Care Provider [phone] Shaikh SÁNCHEZ España Primary Care Provider [phone] Chinmay Muñoz MD Primary Care Provider [phone] Faby Sparrow NP Unavailable [phone] Shaikh SÁNCHEZ España Unavailable [phone] Encounter Details Date Type Department Care Team (Late st Contact Info) Description 08/27/2023 Clinisync Result Encounter [facility] External Department Unsolicited Shaikh España MD [address] [place] [address] Social History Tobacco Use Types Packs/Day Years [...] 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 Not on f ile documented as of this encounter Plan of Treatment Not on file documented as of this encounter Procedures Procedure Name Priority Date/Time Associated Diagnosis Comments XR HAND 3+ VIEWS LEFT 08/27/2023 3:50 PM EST documented in this encounter Results * XR hand 3+ views left (08/27/2023 3:50 PM EST) Anatomical Region Laterality Modality Upper Extremities, Hand Left [facility] 08/27/2023 3:50 PM EST Narrative 08/27/2023 3:52 [place] [address] XRay Report Signed Patient: ALLYSON HARRINGTON MR#: [id number] : 1975 Acct:[id number] Age/Sex: 48 / F ADM Date: 08/27/23 Loc: RAD Attending Dr: Shaikh Patria Levin Ordering Physician: Shaikh Ollie España Date of Service: 08/27/23 Procedure(s): XR hand LT min 3V Accession Number(s): [id number] cc: Shaikh Ollie España [place] [address] Patient Name: ALLYSON HARRINGTON MRN: [id number] date: 1975 Sex: F Assigned Patient Location: [facility] Current Patient Location: [facility] Accession/Order Number: [id number] Exam Date: 08/27/2023 15:18 Report Date: 08/27/2023 15:50 At the request of: SHAIKH PATRIA Procedure: XR hand LT min 3V EXAM: XR hand LT min 3V HISTORY: Left wrist pain M25.532, pain of left thumb M79.645 COMPARISON: None. TECHNIQUE: 3 views of left hand were obtained. FINDINGS: There is no evidence of an acute fracture or dislocation. There is mild narrowing of the first carpometacarpal joint. The remainder the joint spaces are intact. No abnormal soft tissue calcification or radiopaque foreign body is identified. XR/XR hand LT min 3V IMPRESSION: No acute fracture or dislocation. Except for mild degenerative changes at the first carpometacarpal joint, the joint spaces are intact. Electronically authenticated by: MEHDI HILL Date: 08/27/2023 15:50 Dictated By: Mehdi Hill M.D. Signed By: 08/27/23 1552 DD/ 155 TD/TT: Contract Analyst: Procedure Note Radiology, Radiologist, - 08/27/2023 [place] [address] XRay Report Signed Patient: ALYLSON HARRINGTON MMR#: [id number] : 1975Acct:[id number] Age/Sex: 48 / FADM Date: 08/27/23 Loc: RAD Attending Dr: Shaikh Patria Levin Ordering Physician: Shaikh Ollie España Date of Service: 08/27/23 Procedure(s): XR hand LT min 3V Accession Number(s): [id number] cc: Shaikh Ollie España The [place] [address] Patient Name: ALLYSON HARRINGTON MRN: [id number] date: 1975 Sex: F Assigned Patient Location: [facility] Current Patient Location: [facility] Accession/Order Number: [id number] Exam Date: 08/27/2023 15:18 Report Date: 08/27/2023 15:50 At the request of: SHAIKH PATRIA Procedure: XR hand LT min 3V EXAM: XR hand LT min 3V HISTORY: Left wrist pain M25.532, pain of left thumb M79.645 COMPARISON: None. TECHNIQUE: 3 views of left hand were obtained. FINDINGS: There is no evidence of an acute fracture or dislocation. Thereis mild narrowing of the first carpometacarpal joint. The remainder the joint spaces are intact. No abnormal soft tissue calcification or radiopaqueforeign body is identified. XR/XR hand LT min 3V IMPRESSION: No acute fracture or dislocation. Except for mild degenerative changes atthe first carpometacarpal joint, the joint spaces are intact. Electronically authenticated by: MEHDI HILL Date: 08/27/2023 15:50 Dictated By: Mehdi Hill M.D. Signed By:08/27/23 1552 DD/ 1550 TD/TT: Contract Analyst: Shaikh Patria POZO IMG XR PROCEDURES Final Result documented in this encounter Visit Diagnoses Not on filedocumented in this encounter Care Teams Recessing Machine Operator Relationship Specialty Start Date End Date Shaikh España MD PCP - General Internal Medicine 11/24/22 10/06/23 Shaikh España MD PCP - General Internal Medicine 10/07/23 05/31/24 Chinmay Muñoz MD PCP - General Family Medicine 06/01/24 Shaikh España MD [address] [place] [address] PCP - [facility] 06/18/24 Faby Sparrow NP Nurse Practitioner Family Medicine 06/01/24 documented as of this encounter
--- OUTSIDE RECORDS SUMMARY | 2025-04-20 10:18 | XMS_ITS | Encounter Summary ---
Author Organization [facility] Address [address] [place] [address] Care Team Providers Care Gum Machine Operator Name Role Phone Shaikh SÁNCHEZ España Primary Care Provider [phone] Shaikh SÁNCHEZ España Primary Care Provider [phone] Chinmay Muñoz MD Primary Care Provider [phone] Faby Sparrow NP Unavailable [phone] Shaikh SÁNCHEZ España Unavailable [phone] Encounter Details Date Type Department Care Team (Late st Contact Info) Description 07/22/2023 Orders Only [facility] [address] [place] [address] Shaikh España MD [address] [place] [address] Social History Tobacco Use Types Packs/Day Years [...] 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 as of this encounter Plan of Treatment Not on file documented as of this encounter Procedures Procedure Name Priority Date/Time Associated Diagnosis Comments MISCELLANEOUS LAB TEST Routine 07/20/2023 2:34 PM EST documented in this encounter Results * - Miscellaneous Test (07/20/2023 2:34 PM EST) Shaikh Patria POZO LAB BLOOD ORDERABLES Final Resu lt documented in this encounter Visit Diagnoses Not on filedocumented in this encounter Care Teams Gum Machine Operator Relationship Specialty Start Date End Date Shaikh España MD PCP - General Internal Medicine 11/24/22 10/06/23 Shaikh España MD PCP - General Internal Medicine 10/07/23 05/31/24 Chinmay Muñoz MD PCP - General Family Medicine 06/01/24 Shaikh España MD [address] [place] [address] PCP - [facility] [place] 06/18/24 Faby Sparrow NP Nurse Practitioner Family Medicine 06/01/24 documented as of this encounter
--- OUTSIDE RECORDS SUMMARY | 2025-04-20 10:18 | XMS_ITS | Encounter Summary ---
Author Organization [facility] Address [address] [place] [address] Care Team Providers Care Developer Trading Systems Name Role Phone Shaikh SÁNCHEZ España Primary Care Provider [phone] Shaikh SÁNCHEZ España Primary Care Provider [phone] Chinmay Muñoz MD Primary Care Provider [phone] Fayb Sparrow NP Unavailable [phone] Shaikh SÁNCHEZ España Unavailable [phone] Encounter Details Date Type Department Care Team (Late st Contact Info) Description 09/13/2023 Orders Only [facility] [address] [place] [address] Shaikh España MD [address] [place] [address] Social History Tobacco Use Types Packs/Day Years [...] 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 as of this encounter Plan of Treatment Not on file documented as of this encounter Procedures Procedure Name Priority Date/Time Associated Diagnosis Comments XR HAND 3+ VIEWS LEFT Routine 08/27/2023 3:41 PM EST documented in this encounter Results * XR hand 3+ views left (08/27/2023 3:41 PM EST) Anatomical Region Laterality Modality Upper Extremities, Hand Left Radiogra phic Imaging Shaikh Patria POZO IMG XR PROCEDURES Final Result documented in this encounter Visit Diagnoses Not on filedocumented in this encounter Care Teams Developer Trading Systems Relationship Specialty Start Date End Date Shaikh España MD PCP - General Internal Medicine 11/24/22 10/06/23 Shaikh España MD PCP - General Internal Medicine 10/07/23 05/31/24 Chinmay Muñoz MD PCP - General Family Medicine 06/01/24 Shaikh España MD [address] [place] [address] PCP - [facility] 06/18/24 Faby Sparrow NP Nurse Practitioner Family Medicine 06/01/24 documented as of this encounter
--- OUTSIDE RECORDS SUMMARY | 2025-04-20 10:19 | XMS_ITS | Encounter Summary ---
Author Organization [facility] tem Address [id number] [address] [place] [address] Care Team Providers Care Staffing Analyst Name Role Phone Yoselin Hurd MD Primary Care Provider [phone] Reason for Visit * Reason Onset Date Comments GENETICS 06/25/2021 CLERICAL Encounter Details Date Type Department Care Team (Late st Contact Info) Description 06/25/2021 Telephone [facility] - Medical Oncology [address] [place] [address] Licha Tucker, [facility] [address] [place] [address] GENETICS (CLERICAL) Social History Tobacco Use Types Packs/Day Years [...] on file Sexual Orientation Not on file COVID-19 Exposure Response Date Recorded In the last month, have you been in contact with someone who was confirmed or suspected to have Coronavirus / COVID-19? No / Unsure 06/23/2021 8:19 AM EST documented as of this encounter Miscellaneous Notes * Telephone Encounter - Olivia Reed - 06/25/2021 2:32 PM EST LVM on 06/25/2021 at 2:32 PM asking patient to return call to schedule genetics appointment AT [email or web address]. [email or web address] * Telephone Encounter - Josefina Brooks - 06/25/2021 2:32 PM EST 07/02/21 at 3:51 PM Pt left message 07/01/21 cancelling her 07/07/21 appt. Tried calling pt to see if she would like to r/s busy. Will try again djo * Telephone Encounter - Josefina Brooks - 06/25/2021 2:32 PM EST LVM on 10/07/2021 at 10:08 AM asking patient to return call to schedule genetics appointment. Lucy? djo documented in this encounter Plan of Treatment Not on file documented as of this encounter Visit Diagnoses Not on filedocumented in this encounter Care Teams Staffing Analyst Relationship Specialty Start Date End Date Yoselin Hurd MD PCP - General Family Medicine 05/19/21 documented as of this encounter
--- OUTSIDE RECORDS SUMMARY | 2025-04-20 10:19 | XMS_ITS | Encounter Summary ---
Author Organization [employer] tem Address [id number] [address] 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
--- OUTSIDE RECORDS SUMMARY | 2025-04-20 10:19 | XMS_ITS | Encounter Summary ---
Author Organization [employer] [facility] tem Address [id number] [address] [place] [address] Care Team Providers Care Construction Site Crossing Guard Name Role Phone Yoselin Hurd MD Primary Care Provider [phone] Encounter Details Date Type Department Care Team (Late st Contact Info) Description 06/18/2021 Telephone [facility] General Surgery [address] [place] [address] Lizabeth Marte RMA Social History Tobacco Use Types Packs/Day Years [...] have Coronavirus / COVID-19? No / Unsure 06/19/2021 9:06 AM EST documented as of this encounter Plan of Treatment Not on file documented as of this encounter Visit Diagnoses Not on filedocumented in this encounter Care Teams Construction Site Crossing Guard Relationship Specialty Start Date End Date Yoselin Hurd MD PCP - General Family Medicine 05/19/21 documented as of this encounter
--- OUTSIDE RECORDS SUMMARY | 2025-04-20 10:19 | XMS_ITS | Patient Health Record ---
Author Organization [facility] Address [address] [place] [address] Care Team Providers Care Compliance Reviewer Name Role Phone SHAIKH HEARN Primary Care Provider Brandt Blandon Unavailable [phone] Reason For Referral No Information Medications Medication SIG (Take, Route, Fr equency, Duration) Notes Start Date End Date Status buPROPion Active pantoprazole Active citalopram Active hydrocortisone Activ e rosuvastatin Active levothyroxine Active Vitamin D3 Active Social History Tobacco Use: Social History Observation Description Date Details (start date - stop date) Never Smoker NA - NA Smoking History Question Answer Notes Smoking Status NonSmoker AUDIT-C (Standard) Question Answer Notes Did you have a drink contain ing alcohol in the past year? Yes How often did you have six o r more drinks on one occasion in the past year? Never (0 point) How many drinks did you have on a typical day when you were drinking in the past year? 1 or 2 drinks (0 point) How often did you have a dri nk containing alcohol in the past year? 2 to 4 times a month (2 points) Tobacco Control (Standard) Question Answer Notes Tobacco use: Nonsmoker Problems Problem Type SNOMED Code ICD Code Onset Dates Problem Status W/U Status Risk Notes Problem Radial styloid tenosynovitis (80399531) De Quervain's tenosynovitis (M65.4) Active confirmed Problem [id number] Unilateral primary osteoarthritis, right knee (M17.11) Active confirmed Encounters Encounter Location Date Provider Diagnosis [facility] Office [address] [place] [address] [address] [place] [address] 05/01/2024 Brandt King Unilateral primary osteoarthritis, right knee M17.11 Assessments Encounter Date Diagnosis (ICD Code) Assessment Notes Treatment Notes Treatment Clinical Notes Section Notes 05/01/2024 Unilateral primary osteoarthritis, right knee (ICD-10 - M17.11) Left knee OA 05/01/2024 Other I discussed francisca rosas with the patient regarding her left knee pain. Does have some patellofemoral crepitance. Corticosteroid injection as well as therapy. Will see her back for follow-up in 8 weeks. She would also like her lumbar spine eval sent her to spine surgery for consultation. Left knee OA Plan Of Treatment Pending Test Test Name Order Date PT/OT - Eval and Treat 05/01/2024 Insurance Providers Payer Name Payer Address Payer Phone Subscriber Number Group Number Insured Name Patient Relationship to Insured Coverage Start Date Coverage End Date Johnny [address]RI[address] [place] [address] [id number] ALLYSON HANCOCK Self - patient is the insured Medical (General) History Medical History History ICD Code Anxiety: Yes Cancer: Yes Cancer Type: Breast Chronic back pain:: Yes CPAP Machine:: No Depression: Yes Gastric Reflux: Yes Healthcare worker: Yes Latex Allergy: No Have you been in close conta ct with someone who has had MRSA within the last year?: No Have you ever had or presently have MRSA ?: No Have you been seen by a dentist in the l ast year?: Yes Do you have any dental probl ems i.e. Broken, loose, or chipped teeth, absess, gum disease?: No Surgical History Surgery Date(Month/Year) Lumpectomy 11/2022 Carpal tunnel 02/2023
--- OUTSIDE RECORDS SUMMARY | 2025-04-20 10:19 | XMS_ITS | Encounter Summary ---
Author Organization [facility] Address [address] [facility] [address] Care Team Providers Care President Sales And Marketing Name Role Phone Shaikh SÁNCHEZ España Primary Care Provider [phone] Chinmay Muñoz MD Primary Care Provider [phone] Faby Sparrow NP Unavailable [phone] Shaikh SÁNCHEZ España Unavailable [phone] Encounter Details Date Type Department Care Team (Late st Contact Info) Description 01/24/2024 Orders Only [facility] [address] [place] [address] Shaikh España MD [address] [place] [address] Social History Tobacco Use Types Packs/Day Years [...] 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
--- OUTSIDE RECORDS SUMMARY | 2025-04-20 10:19 | XMS_ITS | Patient Health Record ---
Author Organization [facility] [place] Address [address] [place] [address] Care Team Providers Care Bisque Kiln Placer Name Role Phone None, Unknown or Primary Care Provider Unavailab Jaci Hyatt Unavailable [phone] Results Component Value Reference Range Notes PROF 14(COMP METB) (Not yet reviewed by provider) Interpretation: Performing Lab: Notes/Report: [facility] , Sodium 139 136-145 mmol/L Potassium 4.0 3.5-5.1 mmol/L Chloride 104 98-107 mmol/L Carbon Dioxide 26.5 21.0-32.0 mmol/L Anion Gap 12.5 Glucose 108 74-106 mg/dL Blood Urea Nitrogen 16.0 7.0-18.0 mg/dL Creatinine 0.86 0.55-1.02 mg/dL Estimated GFR ( Janis >60 >=60 mL/mi n/1.73m 2 Estimated GFR (Non- Sakina >60 >=60 mL/mi n/1.73m 2 BUN Creatinine Ratio 18.6 Calcium 9.0 8.5-10.1 mg/dL Bilirubin Total 0.4 0.2-1.0 mg/dL Aspartate Amino Transferase 27 15-37 U/L Alanine Aminotransferase 8 14-59 U/L Alkaline Phosphatase 101 46-116 U/L Total Protein 6.9 6.4-8.2 g/dL Albumin Level 3.5 3.4-5.0 g/dL Globulin 3.4 Albumin Globulin Ratio 1.0 Performing Lab: see note ML - [facility] LB VITAMIN D 25 [place] (Not yet rev iewed by provider) Interpretation: Performing Lab: Notes/Report: [facility] , Vitamin D 36.1 <20 ng/mL Vit D deficient 20-<30 ng/mL Vit D insufficient 30-100 ng/mL Vit D sufficient >100 ng/mL Potential Toxicity Performing Lab: see note ML - [facility] LB FREE T4 (Not yet reviewed by provider) Interpretation: Performing Lab: Notes/Report: [facility] , Free T4 0.72 0.76-1.46 ng/dL Performing Lab: see note ML - [facility] LB VITAMIN D 25 [place] (Not yet rev iewed by provider) Interpretation: Performing Lab: Notes/Report: [facility] , Vitamin D 41.8 <20 ng/mL Vit D deficient 20-<30 ng/mL Vit D insufficient 30-100 ng/mL Vit D sufficient >100 ng/mL Potential Toxicity Performing Lab: see note ML - [facility] LB FREE T4 (Not yet reviewed by provider) Interpretation: Performing Lab: Notes/Report: [facility] , Free T4 0.91 0.76-1.46 ng/dL Performing Lab: see note ML - [facility] LB TSH (Not yet reviewed by pro vider) Interpretation: Performing Lab: Notes/Report: [facility] , Thyroid Stimulating Hormone 2.211 0.358-3.740 u IU/mL Performing Lab: see note ML - [facility] LB CBC AUTO DIFF (Not yet revie wed by provider) Interpretation: Performing Lab: Notes/Report: [facility] , White Blood Count 6.0 4.0-11.0 10 3/uL Red Blood Count 4.14 4.20-5.40 10 6/uL Hemoglobin 12.6 12.0-16.0 g/dL Hematocrit 37.4 36.0-48.0 % Mean Corpuscular Volume 90.3 81.0-99.0 fL Mean Corpuscular Hemoglobin 30.4 26.7-34.0 pg Mean Corpuscular HGB Conc 33.7 29.9-35.2 g/dL Red Cell Distribution Width 12.0 11.0-15.0 % Platelet Count 231 150-450 10 3/uL Mean Platelet Volume 9.3 9.5-13.5 fL Neutrophils Percent Auto 48.0 43.0-75.0 % Lymphocytes Percent Auto 40.3 20.5-60.0 % Monocytes Percent Auto 8.0 1.7-12.0 % Eosinophils Percent Auto 2.8 0.9-7.0 % Basophils Percent Auto 0.7 0.2-2.0 % Immature Granulocytes Pct Auto 0.2 0.0-0.5 % Neutrophils Absolute Auto 2.9 1.4-6.5 10 3/uL Lymphocytes Absolute Auto 2.4 1.2-3.8 10 3/uL Monocytes Absolute Auto 0.5 0.3-0.8 10 3/uL Eosinophils Absolute Auto 0.2 0.0-0.7 10 3/uL Basophils Absolute Auto 0.0 0.0-0.1 10 3/uL Immature Granulocytes Abs Auto 0.01 0.00-0.03 10 3/uL Performing Lab: see note ML - [facility] XR DEXA axial skeleton (Not yet reviewed by provider) Interpretation: Performing Lab: Notes/Report: Source Facility: [place] [address] [place] [address] XRay Report Signed Patient: ALLYSON HARRINGTON MR#: [id number] : 1975 Acct:[id number] Age/Sex: 49 / F ADM Date: 06/06/24 Loc: RAD Attending Dr: Jaci Colorado M.D. Ordering Physician: Jaci Colorado M.D. Date of Service: 06/06/24 Procedure(s): XR DEXA axial skeleton Accession Number(s): [id number] cc: Jaci Colorado M.D.; Physician,Non-Staff [facility]uh [facility] [place] [address] Patient Name: ALLYSON HARRINGTON MRN: [id number] date: 1975 Sex: F Assigned Patient Location: [facility] Current Patient Location: Accession/Order Number: [id number] Exam Date: 06/06/2024 09:05 Report Date: 06/07/2024 03:54 At the request of: JACI COLORADO Procedure: XR DEXA axial skeleton EXAMINATION: XR DEXA axial skeleton HISTORY: Malignant Neoplasm Right Breast COMPARISON: DEXA bone densitometry 04/14/2022 TECHNIQUE: Dual-energy X-ray absorptiometry (DXA) was performed. FINDINGS: SPINE ANALYSIS: Average bone mineral density is 1.506 g/cm2. T-score (standard deviation relative to young adult mean): 2.7 . +11.1% change since prior study. HIP ANALYSIS: Lowest bone mineral density is within the right femoral neck, 1.042 g/cm2. T-score (standard deviation relative to young adult mean): 0.0 . -11.1% change since prior study. XR/XR DEXA axial skeleton IMPRESSION: World Health Organization Classification: Normal - Low Fracture Risk FRAX: Cannot be calculated. Pharmacologic treatment recommendations * No uniform recommendation applies to all patients. Management plans must be individualized. * Consider initiating pharmacologic treatment in postmenopausal women and men >= 50 years of age who have the following: Primary fracture prevention: * T-score <= - 2.5 at the femoral neck, total hip, lumbar spine, 33% radius (some uncertainty with existing data) by DXA. * Low bone mass (osteopenia: T-score between - 1.0 and - 2.5) at the femoral neck or total hip by DXA with a 10-year hip fracture risk >= 3% or a 10-year major osteoporosis-related fracture risk >= 20% (i.e., clinical vertebral, hip, forearm, or proximal humerus) based on the US-adapted FRAXregistered model. Secondary fracture prevention: * Fracture of the hip or vertebra regardless of BMD [4, 5]. * Fracture of proximal humerus, pelvis, or distal forearm in persons with low bone mass (osteopenia: T-score between - 1.0 and - 2.5). The decision to treat should be individualized in persons with a fracture of the proximal humerus, pelvis, or distal forearm who do not have osteopenia or low BMD [12, 13]. Hilton MS, Jose R SL, Helen KL, Melody EM, Talita KG, AJ, Aminata ES. The clinician's guide to prevention and treatment of osteoporosis. Osteoporos Int. 2021;33(10):7991-5070. doi: 10.1007/d57527-585-71622-a. Epub 2021Nov 13. Erratum in: Osteoporos Int. 2021Feb 12;: PMID: 09278303; PMCID: [id number]. Electronically authenticated by: MAGDIEL LEIVA Date: 06/07/2024 03:54 Dictated By: Magdiel Leiva M.D. Signed By: 06/07/24356 DD/ 3 TD/TT: Wood Model Maker: VITAMIN D 25 [place] (Not yet rev iewed by provider) Interpretation: Performing Lab: Notes/Report: [facility] , Vitamin D 35.8 <20 ng/mL Vit D deficient 20-<30 ng/mL Vit D insufficient 30-100 ng/mL Vit D sufficient >100 ng/mL Potential Toxicity Performing Lab: see note ML - [facility] LB TSH (Not yet reviewed by pro vider) Interpretation: Performing Lab: Notes/Report: [facility] , Thyroid Stimulating Hormone 1.918 0.358-3.740 u IU/mL Performing Lab: see note ML - [facility] LB PROF 14(COMP METB) (Not yet reviewed by provider) Interpretation: Performing Lab: Notes/Report: [facility] , Sodium 142 136-145 mmol/L Potassium 4.4 3.5-5.1 mmol/L Chloride 105 98-107 mmol/L Carbon Dioxide 25.7 21.0-32.0 mmol/L Anion Gap 15.7 Glucose 81 74-106 mg/dL Blood Urea Nitrogen 16.0 7.0-18.0 mg/dL Creatinine 0.79 0.55-1.02 mg/dL Estimated GFR ( Janis >60 >=60 mL/mi n/1.73m 2 Estimated GFR (Non- Sakina >60 >=60 mL/mi n/1.73m 2 BUN Creatinine Ratio 20.3 Calcium 8.7 8.5-10.1 mg/dL Bilirubin Total 0.3 0.2-1.0 mg/dL Aspartate Amino Transferase 26 15-37 U/L Alanine Aminotransferase 37 14-59 U/L Alkaline Phosphatase 138 46-116 U/L Total Protein 7.0 6.4-8.2 g/dL Albumin Level 3.6 3.4-5.0 g/dL Globulin 3.4 Albumin Globulin Ratio 1.1 Performing Lab: see note ML - [facility] LB FREE T4 (Not yet reviewed by provider) Interpretation: Performing Lab: Notes/Report: [facility] , Free T4 0.78 0.76-1.46 ng/dL Performing Lab: see note ML - [facility] LB CBC AUTO DIFF (Not yet revie wed by provider) Interpretation: Performing Lab: Notes/Report: [facility] , White Blood Count 5.7 4.0-11.0 10 3/uL Red Blood Count 4.18 4.20-5.40 10 6/uL Hemoglobin 12.9 12.0-16.0 g/dL Hematocrit 39.4 36.0-48.0 % Mean Corpuscular Volume 94.3 81.0-99.0 fL Mean Corpuscular Hemoglobin 30.9 26.7-34.0 pg Mean Corpuscular HGB Conc 32.7 29.9-35.2 g/dL Red Cell Distribution Width 11.9 11.0-15.0 % Platelet Count 270 150-450 10 3/uL Mean Platelet Volume 9.5 9.5-13.5 fL Neutrophils Percent Auto 49.4 43.0-75.0 % Lymphocytes Percent Auto 37.9 20.5-60.0 % Monocytes Percent Auto 8.3 1.7-12.0 % Eosinophils Percent Auto 3.0 0.9-7.0 % Basophils Percent Auto 0.7 0.2-2.0 % Immature Granulocytes Pct Auto 0.7 0.0-0.5 % Neutrophils Absolute Auto 2.8 1.4-6.5 10 3/uL Lymphocytes Absolute Auto 2.1 1.2-3.8 10 3/uL Monocytes Absolute Auto 0.5 0.3-0.8 10 3/uL Eosinophils Absolute Auto 0.2 0.0-0.7 10 3/uL Basophils Absolute Auto 0.0 0.0-0.1 10 3/uL Immature Granulocytes Abs Auto 0.04 0.00-0.03 10 3/uL Performing Lab: see note ML - [facility] LB TSH (Not yet reviewed by pro vider) Interpretation: Performing Lab: Notes/Report: [facility] , Thyroid Stimulating Hormone 3.011 0.358-3.740 u IU/mL Performing Lab: see note ML - [facility] LB PROF 14(COMP METB) (Not yet reviewed by provider) Interpretation: Performing Lab: Notes/Report: [facility] , Sodium 139 136-145 mmol/L Potassium 4.0 3.5-5.1 mmol/L Chloride 106 98-107 mmol/L Carbon Dioxide 28.4 21.0-32.0 mmol/L Anion Gap 8.6 Glucose 101 74-106 mg/dL Blood Urea Nitrogen 18.0 7.0-18.0 mg/dL Creatinine 0.87 0.55-1.02 mg/dL Estimated GFR ( Janis >60 >=60 mL/mi n/1.73m 2 Estimated GFR (Non- Sakina >60 >=60 mL/mi n/1.73m 2 BUN Creatinine Ratio 20.7 Calcium 9.0 8.5-10.1 mg/dL Bilirubin Total 0.5 0.2-1.0 mg/dL Aspartate Amino Transferase 21 15-37 U/L Alanine Aminotransferase 29 14-59 U/L Alkaline Phosphatase 97 46-116 U/L Total Protein 7.0 6.4-8.2 g/dL Albumin Level 3.5 3.4-5.0 g/dL Globulin 3.5 Albumin Globulin Ratio 1.0 Performing Lab: see note ML - [facility] LB CBC AUTO DIFF (Not yet revie wed by provider) Interpretation: Performing Lab: Notes/Report: [facility] , White Blood Count 6.2 4.0-11.0 10 3/uL Red Blood Count 4.02 4.20-5.40 10 6/uL Hemoglobin 12.3 12.0-16.0 g/dL Hematocrit 35.7 36.0-48.0 % Mean Corpuscular Volume 88.8 81.0-99.0 fL Mean Corpuscular Hemoglobin 30.6 26.7-34.0 pg Mean Corpuscular HGB Conc 34.5 29.9-35.2 g/dL Red Cell Distribution Width 12.0 11.0-15.0 % Platelet Count 228 150-450 10 3/uL Mean Platelet Volume 9.4 9.5-13.5 fL Neutrophils Percent Auto 51.5 43.0-75.0 % Lymphocytes Percent Auto 38.9 20.5-60.0 % Monocytes Percent Auto 6.9 1.7-12.0 % Eosinophils Percent Auto 2.2 0.9-7.0 % Basophils Percent Auto 0.3 0.2-2.0 % Immature Granulocytes Pct Auto 0.2 0.0-0.5 % Neutrophils Absolute Auto 3.2 1.4-6.5 10 3/uL Lymphocytes Absolute Auto 2.4 1.2-3.8 10 3/uL Monocytes Absolute Auto 0.4 0.3-0.8 10 3/uL Eosinophils Absolute Auto 0.1 0.0-0.7 10 3/uL Basophils Absolute Auto 0.0 0.0-0.1 10 3/uL Immature Granulocytes Abs Auto 0.01 0.00-0.03 10 3/uL Performing Lab: see note ML - [facility] Reason For Referral No Information Encounters Encounter Location Date Provider Diagnosis [facility] [address] [place] [address] 06/01/2024 Jaci [facility] [address] [place] [address] 09/28/2024 Jaci [facility] [address] [place] [address] 02/27/2025 Jaci Colorado Plan Of Treatment Pending Test Test Name Order Date CBC AUTO DIFF 10/29/2023 CBC AUTO DIFF 01/12/2024 CBC AUTO DIFF 06/01/2024 CBC AUTO DIFF 09/22/2024 CBC AUTO DIFF 02/23/2025 CORTISOL AM 10/29/2023 CORTISOL AM 01/12/2024 FREE T4 01/12/2024 FREE T4 10/29/2023 FREE T4 06/01/2024 FREE T4 10/16/2024 FREE T4 02/23/2025 PROF 14(COMP METB) 09/22/2024 PROF 14(COMP METB) 02/23/2025 PROF 14(COMP METB) 06/01/2024 PROF 14(COMP METB) 01/12/2024 PROF 14(COMP METB) 10/29/2023 TSH 10/29/2023 TSH 01/12/2024 TSH 06/01/2024 TSH 02/23/2025 TSH 10/16/2024 VITAMIN D 25 [place] 02/23/2025 VITAMIN D 25 [place] 09/22/2024 VITAMIN D 25 [place] 06/01/2024 VITAMIN D 25 [place] 01/12/2024 VITAMIN D 25 [place] 10/29/2023 XR DEXA axial skeleton 06/07/2024 Next Appt Details Provider Name:Jaci Colorado , 09/04/2025 02:00:00 PM, [address] [place], [address], Insurance Providers Payer Name Payer Address Payer Phone Subscriber Number Group Number Insured Name Patient Relationship to Insured Coverage Start Date Coverage End Date [employer] ACC[employer] PPO PLUS LOCAL PLAN [address] [place] [phone] [id number] Allyson Harrington Self - patient is the insured
--- OUTSIDE RECORDS SUMMARY | 2025-04-20 10:19 | XMS_ITS | Encounter Summary ---
Author Organization [facility] Address [id number] [address] [place] [address] Care Team Providers Care Med Aide Name Role Phone Yoselin Hurd MD Primary Care Provider [phone] Encounter Details Date Type Department Care Team (Late st Contact Info) Description 06/24/2021 Abstract [facility] - Medical Oncology [address] [place] [address] Suzette Bob Social History Tobacco Use Types Packs/Day Years [...] on filedocumented in this encounter Care Teams Med Aide Relationship Specialty Start Date End Date Yoselin Hurd MD PCP - General Family Medicine 05/19/21 documented as of this encounter
--- OUTSIDE RECORDS SUMMARY | 2025-04-20 10:19 | XMS_ITS | Encounter Summary ---
Author Organization [facility] Address [address] [facility] [place] [address] Care Team Providers Care Military Analyst Name Role Phone Shaikh SÁNCHEZ España Primary Care Provider [phone] Chinmay Muñoz MD Primary Care Provider [phone] Faby Sparrow NP Unavailable [phone] Shaikh SÁNCHEZ España Unavailable [phone] Encounter Details Date Type Department Care Team (Late st Contact Info) Description 01/11/2024 Abstract [facility] [place] [facility] [address] [place] [id number] Geni Minaya LPN [address] [facility] [place], [place] [address] Social History Tobacco Use Types Packs/Day Years [...] 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 Question Answer Date of Assessment Author Little interest or pleasure in doing things Not at all 01/13/2024 3:19 PM EDT Izabela Luis M A Feeling down, depressed, or hopeless Not at all 01/13/2024 3:19 PM EDT Izabela Luis M A Patient Health Questionnaire -2 Score 0 01/13/2024 3:19 PM EDT Izabela Luis M A documented as of this encounter Plan of Treatment Not on file documented as of this encounter Visit Diagnoses Not on filedocumented in this encounter Care Teams Military Analyst Relationship Specialty Start Date End Date Shaikh España MD PCP - General Internal Medicine 10/07/23 05/31/24 Chinmay Muñoz MD PCP - General Family Medicine 06/01/24 Shaikh España MD [address] [place] [address] [facility] Faby Sparrow NP Nurse Practitioner Family Medicine 06/01/24 documented as of this encounter
--- OUTSIDE RECORDS SUMMARY | 2025-04-20 10:19 | XMS_ITS | Encounter Summary ---
Author Organization [facility] Address [address] [facility] [place] [address] Care Team Providers Care Boom Cat Operator Name Role Phone Shaikh SÁNCHEZ España Primary Care Provider [phone] Chinmay Muñoz MD Primary Care Provider [phone] Faby Sparrow NP Unavailable [phone] Shaikh SÁNCHEZ España Unavailable [phone] Encounter Details Date Type Department Care Team (Late st Contact Info) Description 04/26/2024 Orders Only [facility] [place] [facility] [address] [place] [address] Lana Clay LPN [address] [place] [address] Social History Tobacco Use Types Packs/Day Years [...] 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 as of this encounter Plan of Treatment Not on file documented as of this encounter Procedures Procedure Name Priority Date/Time Associated Diagnosis Comments PAP SMEAR Routine 04/17/2024 12:00 AM EDT documented in this encounter Results * Pap Smear (04/17/2024 12:00 AM EDT) Swab Cervical swab / Unknown Chidi Rincon DO LAB CYTOLOGY ORDERABLES Final Re sult EXTERNAL LAB documented in this encounter Visit Diagnoses Not on filedocumented in this encounter Care Teams Boom Cat Operator Relationship Specialty Start Date End Date Shaikh España MD PCP - General Internal Medicine 10/07/23 05/31/24 Chinmay Muñoz MD PCP - General Family Medicine 06/01/24 Shaikh España MD [address] [place] [address] [facility] 06/18/24 Faby Sparrow NP Nurse Practitioner Family Medicine 06/01/24 documented as of this encounter
--- OUTSIDE RECORDS SUMMARY | 2025-04-20 10:19 | XMS_ITS | Encounter Summary ---
Author Organization [facility] Address [id number] [address] [place] [address] Care Team Providers Care Coater Slate Name Role Phone Yoselin Hurd MD Primary Care Provider [phone] Encounter Details Date Type Department Care Team (Late st Contact Info) Description 07/07/2021 Orders Only [facility] [address] [place] [address] [place] [address] [place] [address] [address] [place], [place] [id number] Social History Tobacco Use Types Packs/Day Years [...] have Coronavirus / COVID-19? No / Unsure 06/30/2021 2:38 PM EST documented as of this encounter Plan of Treatment Not on file documented as of this encounter Visit Diagnoses Not on filedocumented in this encounter Care Teams Coater Slate Relationship Specialty Start Date End Date Yoselin Hurd MD PCP - General Family Medicine 05/19/21 documented as of this encounter
--- OUTSIDE RECORDS SUMMARY | 2025-04-20 10:19 | XMS_ITS | Encounter Summary ---
Author Organization [facility] tem Address [id number] [address] 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) Carcinoma of lower-outer quadrant of right breast in female, estrogen receptor negative (CMS-HCC) Breast cancer, stage 2, right (CMS-HCC) Telly Smith MD [address] [place] [id number] Phone: tel: fax: [facility] - Medical Oncology [address] [place] [id number] Phone: tel: fax: Referral ID Status Reason Start Date Expiration Date V isits Requested Visits Authorized [id number] Closed Specialty Services Required 06/24/2021 06/24/2022 1 1 Encounter Details Date Type Department Care Team (Late st Contact Info) Description 06/24/2021 Orders Only [facility] - Medical Oncology [facility] [place] [id number] Abigail Addison, [place] Triple negative malignant neoplasm of breast (CMS-HCC) (Primary Dx); Carcinoma of lower-outer quadrant of right breast in female, estrogen receptor negative (CMS-HCC); Breast cancer, stage 2, right (CMS-HCC); Encounter for monitoring cardiotoxic drug therapy Social History Tobacco Use Types Packs/Day Years [...] as of this encounter Plan of Treatment Scheduled Referrals Name Type Priority Associated Diagnoses Order Schedule [facility] Outpatient Referral Routine Triple negative malignant neoplasm of breast (CMS-HCC) Carcinoma of lower-outer quadrant of right breast in female, estrogen receptor negative (CMS-HCC) Breast cancer, stage 2, right (CMS-HCC) 1 Occurrences starting 06/24/2021 until 12/23/2021 documented as of this encounter Procedures Procedure Name Priority Date/Time Associated Diagnosis Comments XR CHEST 1 VW Routine 06/18/2021 documented in this encounter Results * X-ray chest 1 view (06/18/2021) Anatomical Region Laterality Modality Body, Chest N/A Computed Radiogr aphy us Not In System Ref Prov IMG DIAGNOSTIC IMAGING OR DERABLES Final Result documented in this encounter Visit Diagnoses Diagnosis 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
--- OUTSIDE RECORDS SUMMARY | 2025-04-20 10:22 | XMS_ITS | CCD ---
Author Organization [facility] Care Team Providers Care Slp Name Role Phone Jasbir Limon Primary Care Provider [phone] Franco Stokes Unavailable Jasbir Limon MD Primary Care Provider Eliel Hurd Primary Care Provider [phone] CASHEN, DIANA P Admitting Unavailable CASHEN, DIANA P Attending Unavailable ELIEL HURD Primary Care Unavailable SHANTAL, DIANA P Referring Unavailable ELIEL HURD Primary Care Unavailable MD Eliel Hurd Primary Care Provider [phone] MD Eliel Hurd Referring Provider MD Kallie Chang Attending Provider [phone] NON STAFF Attending Provider Unavailable MD Eliel Hurd Primary Care Provider MD Eliel Hurd Referring Provider MD Kallie Chang Attending Provider BRYAN MURGUIAANCE P Referring Unavailable ELIEL HURD Primary Care Unavailable ELIEL HURD Primary Care Unavailable SHANTAL, DIANA P Referring Unavailable MD Eliel Hurd Primary Care Provider MD Larissa Saunders Attending Provider [phone] MD Eliel Hurd Referring Provider MD Kallie Chang Attending Provider MD Eliel Hurd Primary Care Provider MD Larissa Saunders Attending Provider MD Eliel Hurd Referring Provider MD Kallie Chang Attending Provider [phone] MD Eliel Hurd Primary Care Provider DO Adam Vickers Attending Provider [phone] MD Eliel Hurd Referring Provider [phone] MD Kallie Chang Attending Provider [phone] MD Eliel Hurd Referring Provider MD Kallie Chang Attending Provider MD Eliel Hurd Referring Provider [phone] MD Kallie Chang Attending Provider [phone] MD Eliel Hurd Primary Care Provider MD Eliel Hurd Referring Provider [phone] MD Kallie Chang Attending Provider [phone] MD Eliel Hurd Primary Care Provider [phone] MD Eliel Hurd Referring Provider MD Kallie Chang Attending Provider EARNEST HDZ Admitting Unavailable HURD ., DR ELIEL Rouse Primary Care Unavailable EARNEST HDZ Attending Unavailable EARNEST HDZ Consulting Unavailable HURD ., DR ELIEL Rouse Attending Unavailable HURD ., DR ELIEL Rouse Consulting Unavailable HURD ., DR ELIEL Roues Primary Care Unavailable HURD ., DR ELIEL [...] Unavailable SERGEY ., DR FREITAS Attending Unavailable CLARE, DR KRISTA Delgado Consulting Unavailable HURD ., DR ELIEL Rouse Primary Care Unavailable SERGEY ., DR FREITAS Admitting Unavailable SERGEY ., DR FREITAS Attending Unavailable SERGEY ., DR FREITAS Consulting Unavailable APLING, BRIEN B Admitting Unavailable FAWSHAIKH Jun CLINE Primary Care Unavailable APLING, BRIEN B Attending Unavailable MISC, DR POTTER Consulting Unavailable HURD ., DR ELIEL Rouse Primary Care Unavailable MONIQUE ., DR KAITLIN Norton Admitting Unavailable MONIQUE ., DR KAITLIN Norton Attending Unavailable GIEDRAITIS, ANDRIUS Admitting Unavailable DWAYNE, JUAN Referring Unavailable SHAIKH Jun ESPAÑA Primary Care Unavailable GIEDRAITIS, ANDRIUS Attending Unavailable Elham POZO, Andrius Briones Attending Unavailable Elham POZO, Salvatorerius Briones Attending Unavailable MD Eliel Hurd Primary Care Provider [phone] MD Eliazar Gibson Attending Provider Shaikh España MD Primary Care Provider SHAIKH ESPAÑA Primary Care Physician ANABEL, SYDNIE Primary Care Unavailable Ismael BERMAN Attending Unavailable Ismael BERMAN Attending Unavailable ANABEL, SYDNIE Primary Care Unavailable Chidi Rincon Attending Provider MD Alexus España Primary Care Provider AWA MARADIAGA Referring Unavailable ELIEL HURD Primary Care Unavailable AWA MARADIAGA Attending Unavailable Shaikh España MD Primary Care Provider Chinmay Muñoz MD Primary Care Provider Andrews BUILDING INSULATION INSTALLER, Demetra Unavailable Chidi Rincon DO Attending Provider [phone] NO FAMILY, PHYSICIAN Primary Care Provider Unava ilable Sparrow BUILDING INSULATION INSTALLER, Demetra Unavailable [phone] Shaikh España MD Unavailable CASTILLO GONSALEZ Attending Unavailable SHAIKH ESPAÑA Attending Unavailable SHAIKH ESPAÑA Attending Unavailable HI NGUYỄN Attending Unavailable SHAIKH ESPAÑA Attending Unavailable HI NGUYỄN Attending Unavailable HI NGUYỄN Attending Unavailable HI NGUYỄN Referring Unavailable HI NGUYỄN Referring Unavailable CHIDI RINCON Attending Unavailable JACQUELINE CHAVEZ Attending Unavailable JACQUELINE CHAVEZ Referring Unavailable HI NGUYỄN Attending Unavailable DEMETRA SPARROW Attending UnavailCHIDI Adams Attending Unavailable Minda Carrera APRN Attending Provider Minda Carrera Attending Unavailable Minda Carrera Admitting Unavailable Sergey, Chidi Attending Unavailable Sergey, Chidi Admitting Unavailable NO FAMILY, PHYSICIAN Primary Care Unavailable Sergey, Chidi Admitting Unavailable Shaikh España Primary Care Unavailable Joao Rincony Attending Unavailable NO FAMILY, PHYSICIAN Primary Care Provider Unava ilable Minda Carrera APRN Attending Provider [phone] Nayla Leblanc APRN Attending Provider [phone] NON STAFF Primary Care Provider Unavailabl e NON STAFF Primary Care Provider Unavailabl e Diamond Cinthia Attending Provider Allergies Allergy Classification Reported Allergen(s) Allergy Type Date of Onset Reaction(s) Facility (1 source) No Known Medication Allergies; Translations: [No Known Medication Allergies] Propensity to adverse reactions (disorder) [facility] Repository Medications Current Medications Medication Drug Class(es) Dates Sig (Normalized) Sig (Original) acetaminophen 250 mg / aspirin 250 mg / caffeine 65 mg oral tablet (20 sources) Platelet Aggregation Inhibitor, Nonsteroidal Anti-inflammatory Drug, Central Nervous System Stimulant, Methylxanthine Start: 07-08-2021 take 1 tablet by mouth every four to six hours as needed for headache Aspirin-Acetamin ophen-Caffeine (Excedrin Migraine) 250-250-65 mg Tablet Active 1 TAB PO EVERY 4-6 HOURS as needed for Headache July 08, 2021 1:00am Complies with drug therapy take 1 tablet by adair th every six hours as needed for headache bjrrgwi-udyecmdaqnszr-egcmpzuk (EXCEDRIN MIGRAINE) 250-250-65 MG per tablet Take [...] rs infusion cholecalciferol 0.125 mg oral tablet (20 sources) Vitamin D Start: 12-15-2024 take 1 tablet by mouth once daily Cholecalciferol (Vitamin D3) 125 mcg (5,000 unit) tablet Active 5000 UNIT PO Daily December 15, 2024 12:00am Complies with drug therapy Start: 09-20-2024 take 1 tablet by [facility] once daily cholecalciferol (Natural Vitamin D-3) 5,000 Units tablet Indications: Other hyperlipidemia Take 1 tablet (5,000 Units) by mouth Daily 30 tablet 2 09/20/2024 Active Start: 01-19-2024 End: 06-26-2024 take 1 tablet by mouth once daily cholecalciferol (Natural Vitamin D-3) 5,000 Units tablet Indications: Other hyperlipidemia (CMS/HCC) Take 1 tablet (5,000 Units) by mouth Daily 30 tablet 2 06/26/2024 Active 2 ml fentaNYL 0.05 mg/ml injection (1 source) Opioid Agonist Start: 02-17-2022 fentaNYL (SUBLIMAZE) injection 25 mcg FLUoxetine 40 mg oral capsule (1 source) Serotonin Reuptake Inhibitor Start: 04-17-2025 take 1 capsule by mouth once daily Fluoxetine 40 mg capsule Active 40 MG PO Daily April 17, 2025 12:00am Complies with drug therapy fluticasone propionate 0.05 mg/actuat metered dose nasal [...] mg oral tablet (20 sources) Corticosteroid Start: 04-17-2025 take 1 tablet by mouth twice daily Hydrocortisone 10 mg tablet Active 10 MG PO Twice daily April 17, 2025 12:00am Complies with drug therapy Start: 12-15-2024 End: 01-15-2025 take 0.5 tablet by mouth in the evening Hydrocortisone 10 mg tablet Discontinued 10 MG PO .COMPLEX December 15, 2024 12:00am January 15, 2025 9:35am 10 mg orally 1 tablet in am, 1/2 tablet in pm; Start: 10-03-2024 take 1 tablet by adair th once daily hydrocortisone (Cortef) 10 MG tablet Indications: Drug-induced adrenocortical insufficiency (CMS/HCC) Take 1 tablet (10 mg) by mouth Daily 30 tablet 5 10/03/2024 Active Start: 09-18-2022 End: 12-15-2024 Hydrocortisone 20 mg Tablet Discontinued 20 MG PO Daily September 18, 2022 1:00am December 15, 2024 10:58am 20mg and 10mg in the afternoon Start: [...] mg oral tablet (20 sources) l-Thyroxine Start: 06-11-2023 take 1 tablet [...] End: 02-17-2022 lidocaine (LMX) 4 % cream pantoprazole 40 mg delayed release oral tablet [...] take 1 tablet by mouth once daily Rosuvastatin 20 mg tablet Active 20 MG PO Daily December 15, 2024 12:00am Complies with drug therapy Start: 06-11-2023 take 1 tablet by adair [...] Status: Ordered cephalexin 500 mg oral capsule (20 sources) Cephalosporin Antibacterial Start: 12-15-2024 End: 01-15-2025 take 1 capsule by mouth every eight hours Cephalexin 500 mg capsule Discontinued 500 MG PO Q8H 21 December 15, 2024 12:00am January 15, 2025 9:36am Start: 07-03-2021 End: 07-08-2021 take 1 capsule by mouth three times daily Cephalexin 500 mg Capsule Discontinued 500 MG PO Three times daily July 03, 2021 1:00am July 08, 2021 3:07pm citalopram 20 mg oral tablet (20 sources) Serotonin Reuptake Inhibitor Start: 02-27-2021 End: 12-23-2024 take 1 tablet by mouth once daily Citalopram 20 mg Tablet Discontinued 20 MG PO Daily July 08, 2021 1:00am December 15, 2024 10:57am Comment on above: Take 20 mg by mouth once daily. dexamethasone 4 mg oral tablet (20 sources) [...] sodium 50 mg delayed release oral tablet (20 sources) Nonsteroidal Anti-inflammatory Drug Start: 07-08-2021 End: [...] 02-17-2022 diphenhydrAMINE (BENADRYL) i njection 12.5 mg erythromycin 0.005 mg/mg ophthalmic ointment (1 source) Macrolide, Macrolide Antimicrobial Start: 01-15-2025 End: 04-17-2025 Erythromycin 5 mg/gram (0.5 %) ointment Discontinued 1 APPLIC EYE-RIGHT Four times daily 3.5 7 January 15, 2025 12:00am April 17, 2025 10:16am gadoteridol (PROHANCE) injection 18 mL (1 source) [...] needed for Nausea And Vomiting 56 14 September 04, 2021 12:48pm March 12, 2022 8:55am mometasone furoate 1 mg/ml topical cream (20 sources) Corticosteroid Start: 04-16-2022 End: 08-06-2022 Mometasone 0.1 % Cream Discontinued 1 APPLIC TOPICAL Daily June 09, 2022 1:12pm August 06, 2022 2:31pm omeprazole 20 mg delayed release oral capsule (20 sources) Proton Pump Inhibitor Start: 11-29-2021 take 1 capsule by mouth twice daily omeprazole (PRILOSEC) 20 mg capsule Take 20 mg by mouth twice daily. 0 11/29/2021 Active Start: 07-08-2021 End: 12-15-2024 take 1 capsule by mouth once daily Omeprazole 20 mg Capsule,Delayed Release(Dr/Ec) Discontinued 20 MG PO Daily July 08, 2021 1:00am December 15, 2024 10:57am Comment on above: Take 20 mg by mouth twice daily. ondansetron 8 mg disintegrating oral tablet (20 sources) Serotonin-3 Receptor Antagonist Start: End: take 1 tablet by mouth every eight hours Ondansetron 8 mg Tablet,Disintegratin g Discontinued 8 MG PO Q8H June 02, 2022 1:00am April 17, 2025 10:16am Start: 02-17-2022 End: 02-17-2022 ondansetron (ZOFRAN) injecti [...] 03, 2021 1:00am August 14, 2021 10:21am phenazopyridine hydrochloride 200 mg oral tablet (4 sources) Start: 12-15-2024 End: 01-15-2025 take 1 tablet by mouth three times daily Phenazopyridine (Pyridium) 200 mg tablet Discontinued 200 MG PO Three times daily 6 2 December 15, 2024 12:00am January 15, 2025 9:34am phentermine hydrochloride 37.5 mg oral tablet (13 sources) Sympathomimetic Amine Anorectic Start: 01-13-2024 End: 06-26-2024 take 1 tablet by mouth before mealtime phentermine (Adipex-P) 37.5 MG tablet Indications: Overweight with body mass index (BMI) of 28 to 28.9 in adult Take 1 tablet (37.5 mg) by mouth in the morning. Take before meals. 30 tablet 01/13/2024 06/26/2024 Discontinued (Med list cleanup) predniSONE 20 mg oral tablet (20 sources) Start: 08-17-2022 End: 09-04-2022 take 2 tablets by mouth once daily [...] 8:35am silver sulfADIAZINE 10 mg/ml topical cream (14 sources) Sulfonamide Antibacterial Start: 06-09-2022 End: 08-06-2022 Silver Sulfadiazine (Silvadene) 1 % Cream Discontinued 1 APPLIC TOPICAL Daily June 09, 2022 1:00am August 06, 2022 2:31pm apply a 1.5 mm thickness to open/blistered areas only technetium Tc 99m tilmanocept (LYMPHOSEEK) injection 0.6 millicurie (1 source) Start: 02-17-2022 End: 02-17-2022 technetium Tc 99m tilmanocept (LYMPHOSEEK) injection 0.6 millicurie 24 hr venlafaxine 37.5 mg extended release oral capsule (6 sources) Serotonin and Norepinephrine Reuptake Inhibitor Start: 12-15-2024 take 1 capsule by mouth every twenty-four hours Venlafaxine 37.5 mg capsule,extended release 24hr Active 37.5 MG PO Once December 15, 2024 12:00am Start: 12-15-2024 End: 04-17-2025 take 1 capsule by mouth every twenty-four hours Venlafaxine 37.5 mg capsule,extended release 24hr Discontinued 37.5 MG PO Once December 15, 2024 12:00am April 17, 2025 10:44am Start: 10-25-2024 End: 10-25-2025 take 1 capsule by mouth once daily venlafaxine XR (Effexor XR) 37.5 MG 24 hr capsule Indications: Hot flashes Take 1 capsule (37.5 mg) by mouth Daily Do not crush or chew. 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; Translations: [Agranulocytosis secondary to cancer chemotherapy] 11-13-2021 Chronic Disorders of lipid metabolism (20 sources) Hyperlipidemia; Translations: [Hyperlipidemia, unspecified] Onset: 01-23-2022 01-23-2022 Chronic Esophageal disorders (20 sources) Gastro-esophageal reflux disease without esophagitis; Translations: [Gastroesophageal reflux disease without esophagitis] Onset: 04-05-2022 Chronic Genitourinary symptoms and ill-defined conditions (4 sources) Dysuria; Translations: [Dysuria] Onset: 12-15-2024 12-15-2024 Episodic Headache; including migraine (20 sources) Migraine; Translations: [...] limb] 06-01-2024 Chronic Other non-traumatic joint disorders (20 sources) Multiple joint pain; Translations: [Pain in unspecified joint] Onset: 11-01-2023 06-19-2022 Episodic Other non-traumatic joint disorders (5 sources) Pain [...] [Cervical pain (neck)] Onset: 06-18-2021 09-24-2021 Episodic Superficial injury; contusion (1 source) Abrasion of left cornea; Translations: [Injury of conjunctiva and corneal abrasion without foreign body, left eye, initial encounter] 01-15-2025 Episodic Thyroid disorders (20 sources) Acquired hypothyroidism; Translations: [...] Problem Classification Problem Date Documented Date Episodic/Chronic Disorders of teeth and jaw (19 sources) Infection of tooth; Translations: [Periapical abscess without sinus] Onset: 01-13-2024 01-13-2024 Episodic Immunizations and screening for infectious disease (1 source) Encounter for screening for human papillomavirus (HPV); Translations: [ENC SCREENING HUMAN PAPILLOMAVIRUS] Onset: 04-08-2022 Episodic Other non-traumatic joint disorders (19 sources) [...] malignant neoplasm, unspecified] Onset: 11-04-2023 11-04-2023 Episodic Unclassified (1 source) CONTACT W/AND (SUSP) EXPOS COVID-19; Translations: [CONTACT W/AND (SUSP) EXPOS COVID-19] Onset: 03-14-2022 Results Test Name Value Interpretation Reference Range Facility Laboratory - Chemistry and C hemistry - challengeon 12-15-2024 Bilirubin Ql (U) Negative [facility] Glucose (U) [Mass/Vol] [facility] Ketones Ql (U) Negative [facility] pH (U) 5.5 [pH] [facility] Specific gravity (U) [Rel density] >=1.030 [facility] Urobilinogen (U) [Mass/Vol] 0.2 mg/dL [facility] Laboratory - Specimen inform ationon 12-15-2024 Appearance (U) cloudy [facility] Color (U) brown [facility] Laboratory - Urinalysison Leukocyte esterase Test strip Ql (U) Large [facility] Nitrite Ql (U) Positive [facility] Protein Ql (U) >=300 [facility] No Panel Informationon 12-15 Urine Occult Blood [facility] Urine Cultureon 12-15-2024 Bacteria identified Cx Nom (U) ORGANISM: Escherichia coli (O:ESCCOL) [place] Count >100,000 Aerobic ROSINA Charge (NMIC56) ---- SUSCEPTIBILITY --- ORGANISM: O:ESCCOL ANTIBIOTIC INTERPRETATION ROSINA Amikacin S <16 Amoxacillin/K Clavulanate S <8 Ampicillin S <8 Ampicillin/Sulbactam S <4 Aztreonam S <4 Cefazolin S <2 Cefepime S <2 Ceftazidime S <1 Ceftazidime/Avibactam S <4 Ceftolozane/Tazobacta m S <2 Ceftriaxone S <1 Cefuroxime S <4 Ciprofloxacin S <0.25 Ertapenem S <0.5 Gentamicin S <2 Levofloxacin S <0.5 Meropenem S <1 Meropenem/Vaborbactam S <2 Nitrofurantoin S <32 Piperacillin/Tazobact am S <8 Tetracycline S <4 Tigecycline S <2 Tobramycin S <2 Trimethoprim/Sulfamet hoxazole S <0.5 S = SUSCEPTIBLE I = INTERMEDIATE R = RESISTANT BLANK = DATA NOT AVAILABLE, OR DRUG NOT ADVISABLE OR TESTED R* = RESISTANCE DUE TO EXTENDED SPECTRUM BETA-LACTAMASES ESBL = EXTENDED SPECTRUM BETA-LACTAMASE TFG = THYMIDINE-DEPENDENT STRAIN PENNY = BETA-LACTAMASE POSITIVE IB = INDUCIBLE BETA-LACTAMASE. APPEARS IN PLACE OF 'S' WITH SPECIES KNOWN TO POSSESS INDUCIBLE BETA-LACTAMASES. POTENTIALLY THEY MAY BECOME RESISTANT TO ALL B-LACTAM DRUGS. PERFORMED BY: [place] [address] PATHOLOGIST [employer] GEO JARAMILLO M.D. Normal [facility] Comment on above: Performed By: #### C UU #### [address] Urine cultureOrdered By: Karlos Carrera on 12-15-2024 Bacteria identified Cx Nom (U) Escherichia coli Abnormal [facility] MM diagnostic mammo BI w/CAD on 10-05-2024 MM diagnostic mammo BI w/CAD [facility] [address] [place] [address] [address] [place] [address] Mammography Report Signed Patient: Tenisha Hancock MR#: [id number] : 1975 Acct:[id number] Age/Sex: 49 / F Adm Date: 10/05/24 Loc: [place] Room: Type: [facility] Attending Dr: Chidi Rincon DO Ordering Provider: Chidi Rincon Date of Service: 10/05/24 Procedure(s): MM diagnostic mammo BI w/CAD Accession Number(s): ([id number]) MM/MM diagnostic mammo BI w/CAD: Z87.898 Copies to: Chidi Rincon NO FAMILY PHYSICIAN CLINICAL DATA: History of right [...] Cielo Rojo M.D.10/05/2024 10:20 AM Dictation Location: [facility] Dictated By: Cielo Rojo MD 10/05/24 1005 Signed By: 10/05/24 1020 Normal [facility] Mammography reportOrdered By : Cielo Rojo on 10-05-2024 Diagnostic imaging study [facility] [address] [place] [address] Mammography Report Signed Patient: Tenisha Hancock MR#: [id number] : 1975 Acct:[id number] Age/Sex: 49 / F Adm Date: 5 Loc: [place] Room: Type: [facility] Attending Dr: Chidi Rincon DO Ordering Provider: Chidi Rincon Date of Service: 10/05/24 Procedure(s): MM diagnostic mammo BI w/CAD Accession Number(s): ([id number]) MM/MM diagnostic mammo BI w/CAD: Z87.898 Copies to: Chidi Rincon NO FAMILY PHYSICIAN~ CLINICAL DATA: History of right [...] Cielo Rojo M.D.10/05/2024 10:20 AM Dictation Location: [facility] Dictated By: Cielo Rojo MD 10/05/24 1005 Signed By: 10/05/24 1020 [facility] Work Phone: XR Wrist - left 2 [facility] Imaging Result: 05/02/2024: Multiple views of left wrist showed no acute bony process including but not limited to fracture and/or dislocation. Proximal and distal carpal rows appeared to be anatomic. Impression: No acute bony process, left wrist. 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 [facility] Comment on above: TESTS RESULT FLAG UN ITS REF RANGE LAB Clinician Provided Cytology Information Source.............Cervix;Endocervix No. of containers..01 ThinPrep Vial Age Algo ACOG Beata... 30-65 01 FLAG LEGEND: L-Low Normal,H-High Normal,LL-Alert Low,HH-Alert High <-Panic Low,>-Panic High,A-Abnormal,AA-Critical Abnormal Performed at: 01 =G [facility] [place] [address] Radha Guillen MD, HPV APTIMA Negative Negative [facility] Comment on above: This nucleic acid am plification test detects fourteen high- risk HPV types (16,18,31,33,35,39,45,51,52,56,58,59,66,68) without differentiation. Performed at: =[facility] [id number] Balance Assembler: Radha Guillen MD, Phone: [phone] Performed at: WB - [facility] [address], [place] [id number] Balance Assembler: Radha Guillen MD, Phone: [phone] IGP, APTIMA HPV, RFX 16/18,45 Note . [facility] Comment on above: TESTS RESULT FLAG U NITS REF RANGE LAB DIAGNOSIS: 02 NEGATIVE FOR INTRAEPITHELIAL LESION OR MALIGNANCY. Specimen adequacy: 02 Satisfactory for evaluation. Endocervical and/or squamous metaplastic cells (endocervical component) are present. Performed by: Gregoria Cazares, [employer] ([facility]) . 02 Note: Note 02 The Pap [...] <-Panic Low,>-Panic High,A-Abnormal,AA-Critical Abnormal Performed at: 02 WB [facility] [address] [place] [address] Radha Guillen MD, BRUSH-SPATULA CERVIX ENDOCERVIX [facility] CORTISOLon 03-23-2024 Interpretation and review of laboratory results Abnormal [facility] TB CORTISOL 0.9 ug/dL Abnormal 6.2 - 19.4 ug/dL [facility] Comment on above: Please Note: The ref erence interval and flagging for this test is for an AM collection. If this is a PM collection please use: Cortisol PM: 2.3-11.9 Performed at: [address] [id number] Balance Assembler: Red Sena PhD, Phone: [phone] [facility] 36on 03-15-2024 36 Called patient to inform regarding lab results. Left voice message. FSH is elevated consistent with menopause. Prolactin normal. No further testing needed. Normal [facility] Telephoneon 03-15-2024 Telephone [id number] ChristinekeithTenisha 1975 F Date Provider Department Center 03/15/2024 ERIKA CABRERA [facility] No family history on file Reason for Visit and Comments: Labs [[id number]] Normal [facility] 37on 03-09-2024 37 Please take your [...] intramuscular injection (Solu-Cortef Act-O-Vial): Solu-Cortef Emergency Injection [email or web address] Normal [facility] E2 [Mass/Vol]on 03-09-2024 ESTRADIOL 67.8 pg/mL Normal [facility] Comment on above: Result Comment: NON- [...] assay. Performed By: #### 2 842-3, 2243-4, 12158-7 #### [facility] ([id number]) [address] [place] [address], [address] [place] [address] Follitropin Qnon 03-09-2024 FOLLICLE STIM HORMONE 58.1 mIU/mL Normal [facility] Comment on above: Result Comment: NORMAL FEMALE Luteal 1.8-5.1 mIU/mL Follicular 3.8-8.8 mIU/mL Mid Cycle 4.5-22.5 mIU/mL Post Romy 16.7-113.6 mIU/mL Performed By: #### 2 842-3, 2243-4, 27632-0 #### [facility] ([id number]) [address] [place] [address], [address] [place] [address] Office Visiton 03-09-2024 Follow-up visit [id number] Tenisha Hancock 1975 F Date Provider Department Center 03/09/2024 [facility] MARADIAGA [facility] No family history on file Level of Service:79517 NC OFFICE/OUTPATIENT NEW MODERATE MDM 45 MINUTES Reason for Visit and Comments: New Patient [632] Normal [facility] Prolactin [Mass/Vol]on 03-09 PROLACTIN 4.8 ng/mL [facility]26.7 [facility] Comment on above: Performed By: #### 2 842-3, 2243-4, 02001-1 #### [facility] ([id number]) [address] [place] [address], [address] [place] [address] MR breast BI wo/w con CADon 01-11-2024 MR breast BI wo/w con CAD [facility] [place] [address] MRI Report Signed Patient: Tenisha Hancock MR#: [id number] : 1975 Acct:[id number] Age/Sex: 48 / F ADM Date: 01/10/24 Loc: MR Room: Type: [facility] Attending Dr: Chidi Rincon Copies to: Chidi [...] All imaged data was reviewed using the [employer]D system. The postcontrast images were subtracted and [...] Guzman Jr., D.OSavanah01/11/2024 10:59 AM Dictation Location: [place] [address] Transcribed By: [facility] 01/11/24 1059 Dictated By: Jamari Guzman Jr, DO 01/11/24 1047 Signed By: 01/11/24 1059 Normal [facility] Outside Colonoscopyon 2023 Outside Colonoscopy [id number]#1. 00TIFF Normal [facility] Lab Reportson 12-23-2023 Lab Reports [id number]#1. 00TIFF Normal [facility] Reminderson 12-23-2023 Reminders - From: Andie Hodge LPN To: GSN - Clinical; Sent: 12/23/2023 12:00:00 EDT Show up: 11/20/2033 07:00:00 EDT Subject: colonoscopy recall Due Date/Time: 12/21/2033 07:00:00 EDT Reminder/Recall Patient due for screening colonoscopy 12/21/2033. Normal [facility] Insurance Correspondenceon 0 12-08-2023 Insurance Correspondence [id number]# 1.00TIFF [facility] Consent for Procedure/Surger yon 11-04-2023 Consent for Procedure/Surgery [id number]#1 .00TIFF [facility] Facesheeton 11-04-2023 Facesheet [id number]# 1.00TIFF [facility] Ambulatory Visit Summaryon 0 11-03-2023 Ambulatory Visit Summary TENISHA HANCOCK :1975 Visit Date:11/03/2023 Ambulatory Visit Instructions Your Care Team Attending Physician - ANTONELLA POZO, Ismael Christianson Primary Care Physician - PATRIA POZO, MARIN This Is Your Medications List Contact prescribing [...] for choosing us for your care. Normal [facility] Physician Referralon 024 Physician Referral [id number]#1 .00TIFF [facility] Physician Referralon 024 Physician Referral [id number]#1. 00TIFF Normal [facility] Physician Referralon 023 Physician Referral [id number]#1 .00TIFF Normal [facility] Physician Referralon 023 Physician Referral [id number]#1 .00TIFF [facility] C reactive protein [Mass/vol ume] in Serum or PlasmaOrdered By: Eliazar Gibson on 04-07-2023 CRP [Mass/Vol] < 0.5 mg/dL 0.0-0.5 [facility] Erythrocyte sedimentation ra te by Photometric methodOrdered By: Eliazar Gibson on 04-07-2023 ESR Photometric method (Bld) [Velocity] 22 mm/hr 0-19 [facility] Retail - Clinical Noteon Retail - Clinical Note [id number]#1. 00CD:127 Normal [facility] Serum or plasma thyroperoxid ase antibody assay (units/volume)Ordered By: Elizabeth Pérez on 11-16-2022 TPO Ab Qn 13 [IU]/mL 0-34 [facility] Comment on above: Performed at: [place] [id number] Director: Red Sena PhD, Phone: [phone] Thyrotropin [Units/volume] i n Serum or PlasmaOrdered By: Elizabeth Pérez on 11-16-2022 TSH Qn 1.03 m[IU]/L 0.45-5.33 [facility] Thyroxine (T4) free [Mass/vo lume] in Serum or PlasmaOrdered By: Elizabeth Pérez on 11-16-2022 Free T4 [Mass/Vol] 1.03 ng/dL 0.61-1.12 [facility] Triiodothyronine (T3) Free [ Mass/volume] in Serum or PlasmaOrdered By: Elizabeth Pérez on 11-16-2022 Free T3 [Mass/Vol] 4.39 pg/mL 2.50-3.90 [facility] Albumin [Mass/volume] in Bod y fluidOrdered By: Kallie Chang on 09-16-2022 Albumin (Body fld) [Mass/Vol] 3.7 g/dL 3.2-5.5 [facility] Alkaline phosphatase [Enzyma tic activity/volume] in Serum or PlasmaOrdered By: Kallie Chang on 09-16-2022 ALP [Catalytic activity/Vol] 85 U/L 32-92 [facility] Aspartate aminotransferase [ Enzymatic activity/volume] in Serum or PlasmaOrdered By: Kallie Chang on 09-16-2022 AST [Catalytic activity/Vol] 20 U/L 10-42 [facility] Basophils Auto (Bld) [#/Vol] Ordered By: Kallie Chang on 09-16-2022 Basophils (Bld) [#/Vol] 0.0 10*3/uL 0.0-0.2 [facility] Basophils/100 WBC Auto (Bld) Ordered By: Kallie Chang on 09-16-2022 Basophils/100 WBC (Bld) 0.3 % . [facility] Bilirubin.total [Mass/volume ] in Serum or PlasmaOrdered By: Kallie Chang on 09-16-2022 Bilirubin [Mass/Vol] 0.6 mg/dL 0.3-1.2 [facility] Calcium [Mass/volume] in Ser um or PlasmaOrdered By: Kallie Chang on 09-16-2022 Calcium [Mass/Vol] 9.2 mg/dL 8.2-10.2 [facility] Carbon dioxide, total [Moles /volume] in Serum or PlasmaOrdered By: Kallie Chang on 09-16-2022 CO2 [Moles/Vol] 23.1 mmol/L 22.0-30.0 [facility] Chloride [Moles/volume] in S nathaly or PlasmaOrdered By: Kallie Chang on 09-16-2022 Chloride [Moles/Vol] 102 mmol/L 95-114 [facility] Creatinine and Glomerular fi ltration rate.predicted panel (S/P/Bld)Ordered By: Kallie Chang on 09-16-2022 Creatinine [Mass/Vol] 0.98 mg/dL 0.44-1.03 [facility] Eosinophils Auto (Bld) [#/Vo l]Ordered By: Kallie Chang on 09-16-2022 Eosinophils (Bld) [#/Vol] 0.0 10*3/uL 0.0-0.45 [facility] Eosinophils/100 WBC Auto (Bl d)Ordered By: Kallie Chang on 09-16-2022 Eosinophils/100 WBC (Bld) 0.1 % . [facility] Erythrocyte distribution wid th Auto (RBC) [Ratio]Ordered By: Kallie Chang on 09-16-2022 Erythrocyte distribution width (RBC) [Ratio] 15.1 % 11.9-15.3 [facility] Estimated glomerular filtrat ion rate (GFR) non- AmericanOrdered By: Kallie Chang on 09-16-2022 GFR/1.73 sq M.predicted among non-blacks MDRD (S/P/Bld) [Vol rate/Area] > 60 mL/Min [facility] Globulin Calc (S) [Mass/Vol] Ordered By: Kallie Chang on 09-16-2022 Globulin (S) [Mass/Vol] 2.8 g/dL [facility] Glucose [Mass/volume] in Ser um or PlasmaOrdered By: Kallie Chang on 09-16-2022 Glucose [Mass/Vol] 176 mg/dL 70-100 [facility] Comment on above: ADA recommended refe rence rangeRandom Glucose Reference Range is dependent on time and content of last meal. Glucose of more than 200 mg/dL in a nonstressed, ambulatory subject supports the diagnosis of Diabetes Mellitus. Hematocrit Auto (Bld) [Volum e fraction]Ordered By: Kallie Chang on 09-16-2022 Hematocrit (Bld) [Volume fraction] 38.3 % 34.0-46.4 [facility] Hemoglobin [Mass/volume] in BloodOrdered By: Kallie Chang on 09-16-2022 Hemoglobin (Bld) [Mass/Vol] 12.5 g/dL 11.8-15.4 [facility] Leukocytes [#/volume] correc annie for nucleated erythrocytes in Blood by Automated counOrdered By: Kallie Chang on 09-16-2022 WBC corrected for nucl RBC Auto (Bld) [#/Vol] 11.5 10*3/uL 3.8-11.6 [facility] Lymphocytes Auto (Bld) [#/Vo l]Ordered By: Kallie Chang on 09-16-2022 Lymphocytes (Bld) [#/Vol] 0.7 10*3/uL 1.00-4.8 [facility] Lymphocytes/100 WBC Auto (Bl d)Ordered By: Kallie Chang on 09-16-2022 Lymphocytes/100 WBC (Bld) 6.2 % . [facility] MCH Auto (RBC) [Entitic mass ]Ordered By: Kallie Chang on 09-16-2022 MCH (RBC) [Entitic mass] 30.2 pg 24.7-34.3 [facility] MCHC Auto (RBC) [Mass/Vol]Or dered By: Kallie Chang on 09-16-2022 MCHC (RBC) [Mass/Vol] 32.7 g/dL 32.0-35.0 [facility] MCV Auto (RBC) [Entitic vol] Ordered By: Kallie Chang on 09-16-2022 MCV (RBC) [Entitic vol] 92.4 fL 80-100 [facility] Monocytes Auto (Bld) [#/Vol] Ordered By: Kallie Chang on 09-16-2022 Monocytes (Bld) [#/Vol] 0.3 10*3/uL 0.0-0.8 [facility] Monocytes/100 WBC Auto (Bld) Ordered By: Kallie Chang on 09-16-2022 Monocytes/100 WBC (Bld) 2.3 % . [facility] Neutrophils Auto (Bld) [#/Vo l]Ordered By: Kallie Chang on 09-16-2022 Neutrophils (Bld) [#/Vol] 10.4 10*3/uL 1.8-7.7 [facility] Neutrophils/100 WBC Auto (Bl d)Ordered By: Kallie Chang on 09-16-2022 Neutrophils/100 WBC (Bld) 91.1 % . [facility] No Panel InformationOrdered By: Kallie Chang on 09-16-2022 Adrenocorticotropic Hormone <1.5 pg/mL 7.2-63.3 [facility] Comment on above: ACTH reference inter ervin for samples collected between 7 and10 AM.Performed at: [facility] [id number] Director: Red Sena PhD, Phone: [phone] Estimated GFR () > 60 mL/Min [facility] Comment on above: GFR estimated refere nce range: According to KDOQI guidelines, <60 ml/min/1.73m2 is sufficient to diagnose a patient with chronic kidney disease. Pharmacy Creatinine Clearance (Chem 72.74 [facility] Nucleated erythrocytes [Pres ence] in Blood by Automated countOrdered By: Kallie Chang on 09-16-2022 Nucleated RBC Auto Ql (Bld) 0.1 /100{WBC} 0-0.5 [facility] Platelet mean volume Auto (B ld) [Entitic vol]Ordered By: Kallie Chang on 09-16-2022 Platelet mean volume (Bld) [Entitic vol] 6.9 fL 6.3-10.7 [facility] Platelets Auto (Bld) [#/Vol] Ordered By: Kallie Chang on 09-16-2022 Platelets (Bld) [#/Vol] 287 10*3/uL 150-450 [facility] Potassium [Moles/volume] in Serum or PlasmaOrdered By: Kallie Chang on 09-16-2022 Potassium [Moles/Vol] 4.3 mmol/L 3.5-5.1 [facility] Protein [Mass/volume] in Ser um or PlasmaOrdered By: Kallie Chang on 09-16-2022 Protein [Mass/Vol] 6.5 g/dL 6.1-7.9 [facility] RBC Auto (Bld) [#/Vol]Ordere d By: Kallie Chang on 09-16-2022 RBC (Bld) [#/Vol] 4.14 10*6/uL 3.60-5.00 [facility] Random cortisol measurementO rdered By: Kallie Chang on 09-16-2022 Cortisol [Mass/Vol] 3.7 ug/dL [facility] Comment on above: Reference range: AM 6 - 24 ug/dl PM <10 ug/dl Serum or plasma alanine napoles otransferase measurement without P-5'-P (enzymatic activiOrdered By: Kallie Chang on 09-16-2022 ALT No additional P-5'-P [Catalytic activity/Vol] 16 U/L 10-60 [facility] Serum or plasma albumin/glob ulin mass ratioOrdered By: Kallie Chang on 09-16-2022 Albumin/Globulin [Mass ratio] 1.3 {ratio} [facility] Serum or plasma anion gap de terminationOrdered By: Kallie Chang on 09-16-2022 Anion gap [Moles/Vol] 13.2 mmol/L 6.0-15.0 [facility] Sodium [Moles/volume] in Ser um or PlasmaOrdered By: Kallie Chang on 09-16-2022 Sodium [Moles/Vol] 134 mmol/L 136-146 [facility] TSH DL <= 0.005 mIU/L QnOrde red By: Kallie Chang on 09-16-2022 TSH Qn 0.51 m[IU]/L 0.45-5.33 [facility] Thyroxine (T4) free [Mass/vo lume] in Serum or PlasmaOrdered By: Kallie Chang on 09-16-2022 Free T4 [Mass/Vol] 0.84 ng/dL 0.61-1.12 [facility] Urea nitrogen [Mass/volume] in Serum or PlasmaOrdered By: Kallie Chang on 09-16-2022 Urea nitrogen [Mass/Vol] 15 mg/dL 9-23 [facility] WBC Auto (Bld) [#/Vol]Ordere d By: Kallie Chang on 09-16-2022 WBC (Bld) [#/Vol] 11.5 10*3/uL 3.8-11.6 [facility] Albumin [Mass/volume] in Ser um or PlasmaOrdered By: Kallie Chang on 08-05-2022 Albumin [Mass/Vol] 3.8 g/dL 3.2-5.5 [facility] Basophils Auto (Bld) [#/Vol] Ordered By: Kallie Chang on 08-05-2022 Basophils (Bld) [#/Vol] 0.0 10*3/uL 0.0-0.2 [facility] Basophils/100 WBC Auto (Bld) Ordered By: Kallie Chang on 08-05-2022 Basophils/100 WBC (Bld) 0.2 % . [facility] Creatinine and Glomerular fi ltration rate.predicted panel (S/P/Bld)Ordered By: Kallie Chang on 08-05-2022 Creatinine [Mass/Vol] 1.03 mg/dL 0.44-1.03 [facility] Eosinophils Auto (Bld) [#/Vo l]Ordered By: Kallie Chang on 08-05-2022 Eosinophils (Bld) [#/Vol] 0.0 10*3/uL 0.0-0.45 [facility] Eosinophils/100 WBC Auto (Bl d)Ordered By: Kallie Chang on 08-05-2022 Eosinophils/100 WBC (Bld) 0.0 % . [facility] Erythrocyte distribution wid th Auto (RBC) [Ratio]Ordered By: Kallie Chang on 08-05-2022 Erythrocyte distribution width (RBC) [Ratio] 14.9 % 11.9-15.3 [facility] Estimated glomerular filtrat ion rate (GFR) non- AmericanOrdered By: Kallie Chang on 08-05-2022 GFR/1.73 sq M.predicted among non-blacks MDRD (S/P/Bld) [Vol rate/Area] 58 mL/Min [facility] Globulin Calc (S) [Mass/Vol] Ordered By: Kallie Chang on 08-05-2022 Globulin (S) [Mass/Vol] 2.9 g/dL [facility] Hematocrit Auto (Bld) [Volum e fraction]Ordered By: Kallie Chang on 08-05-2022 Hematocrit (Bld) [Volume fraction] 37.2 % 34.0-46.4 [facility] Hemoglobin [Mass/volume] in BloodOrdered By: Kallie Chang on 08-05-2022 Hemoglobin (Bld) [Mass/Vol] 12.2 g/dL 11.8-15.4 [facility] Lactate dehydrogenase measur ement (enzymatic activity/volume)Ordered By: Kallie Chang on 08-05-2022 LDH (Unsp spec) [Catalytic activity/Vol] 169 U/L 45-190 [facility] Leukocytes [#/volume] correc annie for nucleated erythrocytes in Blood by Automated counOrdered By: Kallie Chang on 08-05-2022 WBC corrected for nucl RBC Auto (Bld) [#/Vol] 9.3 10*3/uL 3.8-11.6 [facility] Lymphocytes Auto (Bld) [#/Vo l]Ordered By: Kallie Chang on 08-05-2022 Lymphocytes (Bld) [#/Vol] 0.5 10*3/uL 1.00-4.8 [facility] Lymphocytes/100 WBC Auto (Bl d)Ordered By: Kallie Chang on 08-05-2022 Lymphocytes/100 WBC (Bld) 5.5 % . [facility] MCH Auto (RBC) [Entitic mass ]Ordered By: Kallie Chang on 08-05-2022 MCH (RBC) [Entitic mass] 29.8 pg 24.7-34.3 [facility] MCHC Auto (RBC) [Mass/Vol]Or dered By: Kallie Chang on 08-05-2022 MCHC (RBC) [Mass/Vol] 32.8 g/dL 32.0-35.0 [facility] MCV Auto (RBC) [Entitic vol] Ordered By: Kallie Chang on 08-05-2022 MCV (RBC) [Entitic vol] 90.9 fL 80-100 [facility] Monocytes Auto (Bld) [#/Vol] Ordered By: Kallie Chagn on 08-05-2022 Monocytes (Bld) [#/Vol] 0.1 10*3/uL 0.0-0.8 [facility] Monocytes/100 WBC Auto (Bld) Ordered By: Kallie Chang on 08-05-2022 Monocytes/100 WBC (Bld) 1.4 % . [facility] Neutrophils Auto (Bld) [#/Vo l]Ordered By: Kallie Chang on 08-05-2022 Neutrophils (Bld) [#/Vol] 8.7 10*3/uL 1.8-7.7 [facility] Neutrophils/100 WBC Auto (Bl d)Ordered By: Kallie Chang on 08-05-2022 Neutrophils/100 WBC (Bld) 92.9 % . [facility] No Panel InformationOrdered By: Kallie Chang on 08-05-2022 Adrenocorticotropic Hormone <1.5 pg/mL 7.2-63.3 [facility] Comment on above: ACTH reference inter ervin for samples collected between 7 and10 AM.Performed at: [facility] [address] [id number] Director: Red Sena PhD, Phone: [phone] Estimated GFR () > 60 mL/Min [facility] Comment on above: GFR estimated refere nce range: According to KDOQI guidelines, <60 ml/min/1.73m2 is sufficient to diagnose a patient with chronic kidney disease. Pharmacy Creatinine Clearance (Chem 67.73 [facility] Nucleated erythrocytes [Pres ence] in Blood by Automated countOrdered By: Kallie Chang on 08-05-2022 Nucleated RBC Auto Ql (Bld) 0.0 /100{WBC} 0-0.5 [facility] Platelet mean volume Auto (B ld) [Entitic vol]Ordered By: Kallie Chang on 08-05-2022 Platelet mean volume (Bld) [Entitic vol] 7.1 fL 6.3-10.7 [facility] Platelets Auto (Bld) [#/Vol] Ordered By: Kallie Chang on 08-05-2022 Platelets (Bld) [#/Vol] 263 10*3/uL 150-450 [facility] Protein [Mass/volume] in Ser um or PlasmaOrdered By: Kallie Chang on 08-05-2022 Protein [Mass/Vol] 6.7 g/dL 6.1-7.9 [facility] RBC Auto (Bld) [#/Vol]Ordere d By: Kallie Chang on 08-05-2022 RBC (Bld) [#/Vol] 4.09 10*6/uL 3.60-5.00 [facility] Serum or plasma alanine napoles otransferase measurement without P-5'-P (enzymatic activiOrdered By: Kallie Chang on 08-05-2022 ALT No additional P-5'-P [Catalytic activity/Vol] 16 U/L 10-60 [facility] Serum or plasma albumin/glob ulin mass ratioOrdered By: Kallie Chang on 08-05-2022 Albumin/Globulin [Mass ratio] 1.3 {ratio} [facility] Serum or plasma alkaline zo sphatase measurement (enzymatic activity/volume)Ordered By: Kallie Chang on 08-05-2022 ALP [Catalytic activity/Vol] 89 U/L 32-92 [facility] Serum or plasma anion gap de terminationOrdered By: Kallie Chang on 08-05-2022 Anion gap [Moles/Vol] 16.6 mmol/L 6.0-15.0 [facility] Serum or plasma aspartate am inotransferase measurement (enzymatic activity/volume)Ordered By: Kallie Chang on 08-05-2022 AST [Catalytic activity/Vol] 18 U/L 10-42 [facility] Serum or plasma calcium daiana urement (mass/volume)Ordered By: Kallie Chang on 08-05-2022 Calcium [Mass/Vol] 9.1 mg/dL 8.2-10.2 [facility] Serum or plasma chloride lizett surement (moles/volume)Ordered By: Kallie Chang on 08-05-2022 Chloride [Moles/Vol] 99 mmol/L 95-114 [facility] Serum or plasma glucose daiana urement (mass/volume)Ordered By: Kallie Chang on 08-05-2022 Glucose [Mass/Vol] 164 mg/dL 70-100 [facility] Comment on above: ADA recommended refe rence rangeRandom Glucose Reference Range is dependent on time and content of last meal. Glucose of more than 200 mg/dL in a nonstressed, ambulatory subject supports the diagnosis of Diabetes Mellitus. Serum or plasma potassium me asurement (moles/volume)Ordered By: Kallie Chang on 08-05-2022 Potassium [Moles/Vol] 4.6 mmol/L 3.5-5.1 [facility] Serum or plasma sodium measu rement (moles/volume)Ordered By: Kallie Chang on 08-05-2022 Sodium [Moles/Vol] 135 mmol/L 136-146 [facility] Serum or plasma total biliru bin measurement (mass/volume)Ordered By: Kallie Chang on 08-05-2022 Bilirubin [Mass/Vol] 0.7 mg/dL 0.3-1.2 [facility] Serum or plasma total carbon dioxide measurement (moles/volume)Ordered By: Kallie Chang on 08-05-2022 CO2 [Moles/Vol] 24.0 mmol/L 22.0-30.0 [facility] Serum or plasma urea nitroge n measurement (mass/volume)Ordered By: Kallie Chang on 08-05-2022 Urea nitrogen [Mass/Vol] 15 mg/dL 9-23 [facility] TSH DL <= 0.005 mIU/L QnOrde red By: Kallie Chang on 08-05-2022 TSH Qn 0.70 m[IU]/L 0.45-5.33 [facility] Thyroxine (T4) free [Mass/vo lume] in Serum or PlasmaOrdered By: Kallie Chang on 08-05-2022 Free T4 [Mass/Vol] 0.71 ng/dL 0.61-1.12 [facility] WBC Auto (Bld) [#/Vol]Ordere d By: Kallie Chang on 08-05-2022 WBC (Bld) [#/Vol] 9.3 10*3/uL 3.8-11.6 [facility] Random cortisol measurementO rdered By: Kallie Chang on 07-22-2022 Cortisol [Mass/Vol] 2.6 ug/dL [facility] Comment on above: Reference range: AM 6 - 24 ug/dl PM <10 ug/dl Albumin [Mass/volume] in Ser um or PlasmaOrdered By: Kallie Chang on 06-17-2022 Albumin [Mass/Vol] 3.6 g/dL 3.2-5.5 [facility] Basophils Auto (Bld) [#/Vol] Ordered By: Kallie Chang on 06-17-2022 Basophils (Bld) [#/Vol] 0.0 10*3/uL 0.0-0.2 [facility] Basophils/100 WBC Auto (Bld) Ordered By: Kallie Chang on 06-17-2022 Basophils/100 WBC (Bld) 0.7 % . [facility] Creatinine and Glomerular fi ltration rate.predicted panel (S/P/Bld)Ordered By: Kallie Chang on 06-17-2022 Creatinine [Mass/Vol] 0.66 mg/dL 0.44-1.03 [facility] Eosinophils Auto (Bld) [#/Vo l]Ordered By: Kallie Chang on 06-17-2022 Eosinophils (Bld) [#/Vol] 0.1 10*3/uL 0.0-0.45 [facility] Eosinophils/100 WBC Auto (Bl d)Ordered By: Kallie Chang on 06-17-2022 Eosinophils/100 WBC (Bld) 2.7 % . [facility] Erythrocyte distribution wid th Auto (RBC) [Ratio]Ordered By: Kallie Chang on 06-17-2022 Erythrocyte distribution width (RBC) [Ratio] 13.2 % 11.9-15.3 [facility] Estimated glomerular filtrat ion rate (GFR) non- AmericanOrdered By: Kallie Chang on 06-17-2022 GFR/1.73 sq M.predicted among non-blacks MDRD (S/P/Bld) [Vol rate/Area] > 60 mL/Min [facility] Globulin Calc (S) [Mass/Vol] Ordered By: Kallie Chang on 06-17-2022 Globulin (S) [Mass/Vol] 2.6 g/dL [facility] Hematocrit Auto (Bld) [Volum e fraction]Ordered By: Kallie Chang on 06-17-2022 Hematocrit (Bld) [Volume fraction] 32.8 % 34.0-46.4 [facility] Hemoglobin [Mass/volume] in BloodOrdered By: Kallie Chang on 06-17-2022 Hemoglobin (Bld) [Mass/Vol] 10.7 g/dL 11.8-15.4 [facility] Leukocytes [#/volume] correc annie for nucleated erythrocytes in Blood by Automated counOrdered By: Kallie Chang on 06-17-2022 WBC corrected for nucl RBC Auto (Bld) [#/Vol] 5.1 10*3/uL 3.8-11.6 [facility] Lymphocytes Auto (Bld) [#/Vo l]Ordered By: Kallie Chang on 06-17-2022 Lymphocytes (Bld) [#/Vol] 0.9 10*3/uL 1.00-4.8 [facility] Lymphocytes/100 WBC Auto (Bl d)Ordered By: Kallie Chang on 06-17-2022 Lymphocytes/100 WBC (Bld) 17.2 % . [facility] MCH Auto (RBC) [Entitic mass ]Ordered By: Kallie Chang on 06-17-2022 MCH (RBC) [Entitic mass] 29.5 pg 24.7-34.3 [facility] MCHC Auto (RBC) [Mass/Vol]Or dered By: Kallie Chang on 06-17-2022 MCHC (RBC) [Mass/Vol] 32.8 g/dL 32.0-35.0 [facility] MCV Auto (RBC) [Entitic vol] Ordered By: Kallie Chang on 06-17-2022 MCV (RBC) [Entitic vol] 90.0 fL 80-100 [facility] Monocytes Auto (Bld) [#/Vol] Ordered By: Kallie Chang on 06-17-2022 Monocytes (Bld) [#/Vol] 0.5 10*3/uL 0.0-0.8 [facility] Monocytes/100 WBC Auto (Bld) Ordered By: Kallie Chang on 06-17-2022 Monocytes/100 WBC (Bld) 10.3 % . [facility] Neutrophils Auto (Bld) [#/Vo l]Ordered By: Kallie Chang on 06-17-2022 Neutrophils (Bld) [#/Vol] 3.5 10*3/uL 1.8-7.7 [facility] Neutrophils/100 WBC Auto (Bl d)Ordered By: Kallie Chang on 06-17-2022 Neutrophils/100 WBC (Bld) 69.1 % . [facility] No Panel InformationOrdered By: Kallie Chang on 06-17-2022 Adrenocorticotropic Hormone 8.2 pg/mL 7.2-63.3 [facility] Comment on above: ACTH reference inter ervin for samples collected between 7 and10 AM.Performed at: [facility] [id number] Director: Red Sena PhD, Phone: [phone] Estimated GFR () > 60 mL/Min [facility] Comment on above: GFR estimated refere nce range: According to KDOQI guidelines, <60 ml/min/1.73m2 is sufficient to diagnose a patient with chronic kidney disease. Pharmacy Creatinine Clearance (Chem 110.52 [facility] Nucleated erythrocytes [Pres ence] in Blood by Automated countOrdered By: Kallie Chang on 06-17-2022 Nucleated RBC Auto Ql (Bld) 0.0 /100{WBC} 0-0.5 [facility] Platelet mean volume Auto (B ld) [Entitic vol]Ordered By: Kallie Chang on 06-17-2022 Platelet mean volume (Bld) [Entitic vol] 7.2 fL 6.3-10.7 [facility] Platelets Auto (Bld) [#/Vol] Ordered By: Kallie Chang on 06-17-2022 Platelets (Bld) [#/Vol] 241 10*3/uL 150-450 [facility] Protein [Mass/volume] in Ser um or PlasmaOrdered By: Kallie Chang on 06-17-2022 Protein [Mass/Vol] 6.2 g/dL 6.1-7.9 [facility] RBC Auto (Bld) [#/Vol]Ordere d By: Kallie Chang on 06-17-2022 RBC (Bld) [#/Vol] 3.64 10*6/uL 3.60-5.00 [facility] Random cortisol measurementO rdered By: Kallie Chang on 06-17-2022 Cortisol [Mass/Vol] 0.4 ug/dL [facility] Comment on above: Reference range: AM 6 - 24 ug/dl PM <10 ug/dl Serum or plasma alanine napoles otransferase measurement without P-5'-P (enzymatic activiOrdered By: Kallie Chang on 06-17-2022 ALT No additional P-5'-P [Catalytic activity/Vol] 34 U/L 10 [facility] Serum or plasma albumin/glob ulin mass ratioOrdered By: Kallie Chang on 06-17-2022 Albumin/Globulin [Mass ratio] 1.4 {ratio} [facility] Serum or plasma alkaline zo sphatase measurement (enzymatic activity/volume)Ordered By: Kallie Chang on 06-17-2022 ALP [Catalytic activity/Vol] 82 U/L 32-92 [facility] Serum or plasma anion gap de terminationOrdered By: Kallie Chang on 06-17-2022 Anion gap [Moles/Vol] 11.1 mmol/L 6.0-15.0 [facility] Serum or plasma aspartate am inotransferase measurement (enzymatic activity/volume)Ordered By: Kallie Chang on 06-17-2022 AST [Catalytic activity/Vol] 36 U/L 10- [facility] Serum or plasma calcium daiana urement (mass/volume)Ordered By: Kallie Chang on 06-17-2022 Calcium [Mass/Vol] 9.5 mg/dL 8.2-10.2 [facility] Serum or plasma chloride lizett surement (moles/volume)Ordered By: Kallie Chang on 06-17-2022 Chloride [Moles/Vol] 101 mmol/L 95-114 [facility] Serum or plasma glucose daiana urement (mass/volume)Ordered By: Kallie Chang on 06-17-2022 Glucose [Mass/Vol] 94 mg/dL 70-100 [facility] Comment on above: ADA recommended refe rence rangeRandom Glucose Reference Range is dependent on time and content of last meal. Glucose of more than 200 mg/dL in a nonstressed, ambulatory subject supports the diagnosis of Diabetes Mellitus. Serum or plasma potassium me asurement (moles/volume)Ordered By: Kallie Chang on 06-17-2022 Potassium [Moles/Vol] 3.6 mmol/L 3.5-5.1 [facility] Serum or plasma sodium measu rement (moles/volume)Ordered By: Kallie Chang on 06-17-2022 Sodium [Moles/Vol] 133 mmol/L 136-146 [facility] Serum or plasma total biliru bin measurement (mass/volume)Ordered By: Kallie Chang on 06-17-2022 Bilirubin [Mass/Vol] 0.8 mg/dL 0.3-1.2 [facility] Serum or plasma total carbon dioxide measurement (moles/volume)Ordered By: Kallie Chang on 06-17-2022 CO2 [Moles/Vol] 24.5 mmol/L 22.0-30.0 [facility] Serum or plasma urea nitroge n measurement (mass/volume)Ordered By: Kallie Chang on 06-17-2022 Urea nitrogen [Mass/Vol] 7 mg/dL 04-10 [facility] TSH DL <= 0.005 mIU/L QnOrde red By: Kallie Chang on 06-17-2022 TSH Qn 2.66 m[IU]/L 0.45-5.33 [facility] Thyroxine (T4) free [Mass/vo lume] in Serum or PlasmaOrdered By: Kallie Chang on 06-17-2022 Free T4 [Mass/Vol] 0.43 ng/dL 0.61-1.12 [facility] WBC Auto (Bld) [#/Vol]Ordere d By: Kallie Chang on 06-17-2022 WBC (Bld) [#/Vol] 5.1 10*3/uL 3.8-11.6 [facility] Laboratory - Hematology and Cell countsOrdered By: Kallie Chang on 05-27-2022 Nucleated RBC/100 WBC (Bld) [Ratio] 0.1 % 0-0.5 [facility] No Panel InformationOrdered By: Kallie Chang on 05-27-2022 Adrenocorticotropic Hormone 14.9 pg/mL 7.2-63.3 [facility] Comment on above: ACTH reference inter ervin for samples collected between 7 and10 AM.Performed at: [employer] [address] [id number] Director: Red Sena PhD, Phone: [phone] HCG ( test) IAsita d Ql (U)Ordered By: Stacie Thomas on 04-16-2022 HCG ( test) Ql (U) Negative [facility] PAP ACOG PANEL 2: 30 to 65on 04-16-2022 . . Normal [facility] Comment on above: Result Comment: Perf ormed at: WB Performed By: #### [id number] #### [facility] [address] [place] [address] Dr. Lilly Varner Age Gdln ACOG Testing 30-65 Normal [facility] Comment on above: Performed By: #### [id number] #### [facility] [address] [place] [address] Dr. Lilly Varner DIAGNOSIS: Comment [facility] Comment on above: Result Comment: NEGA TIVE FOR INTRAEPITHELIAL LESION OR MALIGNANCY. THIS SPECIMEN WAS RESCREENED PART OF OUR PAPER RULER PROGRAM. Performed at: WB Performed By: #### [id number] #### [facility] [address] [place] [address] Dr. Lilly Varner HPV Aptima Positive Abnormal Negative [facility] Comment on above: Result Comment: This nucleic acid amplification test detects fourteen high-risk HPV types (16,18,31,33,35,39,45,51,52,56,58,59,66,68) without differentiation. Performed at: =G Performed By: #### [id number] #### [facility] [address] [place] [address] Dr. Lilly Varner HPV Genotype 16 Negative Normal Negative [facility] Comment on above: Result Comment: Perf ormed at: =G Performed By: #### [id number] #### [facility] [address] [place] [address] Dr. Lilly Varner HPV Genotype 18,45 Positive Abnormal Negative [facility] Comment on above: Result Comment: Perf ormed at: =G Performed By: #### [id number] #### [facility] [address] [place] [address] Dr. Lilly Varner Methodology: Comment Normal [facility] Comment on above: Result Comment: This liquid based ThinPrep(R) pap test was screened with the use of an image guided system. Performed at: WB Performed By: #### [id number] #### [facility] [address] [place] [address] Dr. Lilly Varner Note: Comment Normal [facility] Comment on above: Result Comment: The Pap smear is a screening test designed to aid in the detection of premalignant and malignant conditions of the uterine cervix. It is not a diagnostic procedure and should not be used as the sole means of detecting cervical cancer. Both false-positive and false-negative reports do occur. . Performed at: WB Performed By: #### [id number] #### [facility] [address] [place] [address] Dr. Lilly Varner Performed by: Comment Normal [facility] Comment on above: Result Comment: Nickie Ford, Turner Machine (ASCP) Performed at: WB Performed By: #### [id number] #### [facility] [address] [place] [address] Dr. Lilly Varner QC reviewed by: Comment Normal [facility] Comment on above: Result Comment: Dequan Plaza, Supervisory Turner Machine (ASCP) Performed at: WB Performed By: #### [id number] #### [facility] [address] [address] [address] Lilly Varner Specimen adequacy: Comment Normal [facility] Comment on above: Result Comment: Sati sfactory for evaluation. Endocervical and/or squamous metaplastic cells (endocervical component) are present. Performed at: WB Performed By: #### [id number] #### [facility] [address] [address] [address] Lilly Varner XR DEXA BONE DENSITYon [...] by: KRISTA ROBERTSON Date: 2022-04-14 17:25 Normal [facility] VIT D 25-OH LABCORPon 2021 Vitamin D, 25-Hydroxy 19.5 ng/mL Critically low 30.0-100.0 [facility] Comment on above: Result Comment: [place] min D deficiency has been defined by the [place] of [employer] and an Endocrine Society practice guideline as a level of serum 25-OH vitamin D less than 20 ng/mL (1,2). The Endocrine Society went on to further define vitamin D insufficiency as a level between 21 and 29 ng/mL (2). 1. IOM ([place] of [employer]). 2010. Dietary reference intakes for calcium and D. [place]: The National Academies Press. 2. Lorena MF, Art [place], Eleazar SPENCE, et al. Evaluation, treatment, and prevention of vitamin D deficiency: an Endocrine Society clinical practice guideline. JCEM. 2010; 96(7):1911-30. Performed By: #### V ITADLC #### [facility] [address] [place] [address] Dr. Lilly Varner CBC AUTO DIFFon 2022 BASO # 0.0 103/ul Normal 0.0-0.1 [facility] Comment on above: Performed By: #### C BC #### [facility] [address] [place] [address] Dr. Lilly Varner Basophils/100 WBC (Bld) 0.5 % Normal 0.2-2.0 [facility] Comment on above: Performed By: #### C BC #### [facility] [address] [place] [address] Dr. Lilly Varner EO # 0.5 103/ul Normal 0.0-0.7 [facility] Comment on above: Performed By: #### C BC #### [facility] [address] [place] [address] Dr. Lilly Varner Eosinophils/100 WBC (Bld) 6.4 % Normal 0.9-7.0 [facility] Comment on above: Performed By: #### C BC #### [facility] [address] [place] [address] Dr. Lilly Varner Erythrocyte distribution width (RBC) [Ratio] 13.0 % Normal 11.0-15.0 [facility] Comment on above: Performed By: #### C BC #### [facility] [address] [place] [address] Dr. Lilly Varner Hematocrit (Bld) [Volume fraction] 40.1 % Normal 36.0-48.0 [facility] Comment on above: Performed By: #### C BC #### [facility] [address] [place] [address] Dr. Lilly Varner Hemoglobin (Bld) [Mass/Vol] 12.7 g/dL Normal 12.0-16.0 [facility] Comment on above: Performed By: #### C BC #### [facility] [address] [place] [address] Dr. Lilly Varner IG # 0.04 10e3/ul Critically high 0.00-0.03 [facility] Comment on above: Performed By: #### C BC #### [facility] [address] [place] [address] Dr. Lilly Varner IG % 0.5 % Normal 0.0-0.5 [facility] Comment on above: Performed By: #### C BC #### [facility] [address] [place] [address] Dr. Lilly Varner LYMPH # 2.0 103/ul Normal 1.2-3.8 [facility] Comment on above: Performed By: #### C BC #### [facility] [address] [place] [address] Dr. Lilly Varner Lymphocytes/100 WBC (Bld) 24.3 % Normal 20.5-60.0 [facility] Comment on above: Performed By: #### C BC #### [facility] [address] [place] [address] Dr. Lilly Varner MANUAL DIFF REQ NO Normal [facility] Comment on above: Performed By: #### C BC #### [facility] [address] [place] [address] Dr. Lilly Varner MCH (RBC) [Entitic mass] 30.3 pg Normal 26.7-34.0 [facility] Comment on above: Performed By: #### C BC #### [facility] [address] [place] [address] Dr. Lilly Varner MCHC (RBC) [Mass/Vol] 31.7 g/dL Normal 29.9-35.2 [facility] Comment on above: Performed By: #### C BC #### [facility] [address] [place] [address] Dr. Lilly Varner MCV (RBC) [Entitic vol] 95.7 fL Normal 81.0-99.0 [facility] Comment on above: Performed By: #### C BC #### [facility] [address] [place] [address] Dr. Lilly Varner MONO # 0.5 103/ul Normal 0.3-0.8 [facility] Comment on above: Performed By: #### C BC #### [facility] [address] [place] [address] Dr. Lilly Varner Monocytes/100 WBC (Bld) 5.7 % Normal 1.7-12.0 [facility] Comment on above: Performed By: #### C BC #### [facility] [address] [place] [address] Dr. Lilly Varner NEUT # 5.1 103/ul Normal 1.4-6.5 [facility] Comment on above: Performed By: #### C BC #### [facility] [address] [place] [address] Dr. Lilly Varner Neutrophils/100 WBC (Bld) 62.6 % Normal 43.0-75.0 [facility] Comment on above: Performed By: #### C BC #### [facility] [address] [place] [address] Dr. Lilly Varner Platelet mean volume (Bld) [Entitic vol] 8.6 fL Critically low 9.5-13.5 [facility] Comment on above: Performed By: #### C BC #### [facility] [address] [place] [address] Dr. Lilly Varner PLT 279 103/ul Normal 150-450 [facility] Comment on above: Performed By: #### C BC #### [facility] [address] [place] [address] Dr. Lilly Varner RBC 4.19 106/ul Critically low 4.20-5.40 [facility] Comment on above: Performed By: #### C BC #### [facility] [address] [place] [address] Dr. Lilly Varner WBC 8.2 103/ul Normal 4.0-11.0 [facility] Comment on above: Performed By: #### C BC #### [facility] [address] [place] [address] Dr. Lilly Varner GLYCOHEMOGLOBIN A1Con 2021 ADA RECOMMENDATION SEE BELOW Normal [facility] Comment on above: Result Comment: ADA RECOMMENDED LIMIT 4.0 - 6.0 ADA THERAPEUTIC TARGET < 7.0 ACTION SUGGESTED > 7.0 Performed By: #### A 1C ####[facility] [id number] [place], [place] [address]KqSavanah Varner Glucose [Mass/Vol] 128 mg/dL Normal [facility] Comment on above: Performed By: #### A 1C ####[facility] [address] [place], [place] [address]RkSavanah Varner HbA1c (Bld) [Mass fraction] 6.1 % Normal 4.5-6.2 [facility] Comment on above: Performed By: #### A 1C ####[facility] [id number] [id number] Varner LIPID PROFILEon 2022 CHOL-HDL RATIO NORM SEE BELOW Normal [facility] Comment on above: Result Comment: 3.3 - 4.4 LOW RISK 4.4 - 7.1 AVERAGE RISK 7.1 - 11.0 MODERATE RISK >11.0 HIGH RISK Performed By: #### C MP, TSH, LIPID #### [facility] [address] [address] [address] Lilly Varner Cholesterol [Mass/Vol] 291 mg/dL Critically high <=200 [facility] Comment on above: Performed By: #### C MP, TSH, LIPID #### [facility] [address] [address] [address] Lilly Varner Cholesterol in HDL [Mass/Vol] 60 mg/dL Normal 40-60 [facility] Comment on above: Performed By: #### C MP, TSH, LIPID #### [facility] [address] [address] [address] Lilly Varner Cholesterol in LDL [Mass/Vol] 209.6 mg/dL Normal [facility] Comment on above: Performed By: #### C MP, TSH, LIPID #### [facility] [address] [address] [address] Lilly Varner Cholesterol.total/Cholest caro in HDL [Mass ratio] 4.9 {ratio} Normal [facility] Comment on above: Performed By: #### C MP, TSH, LIPID #### [facility] [address] [address] [address] Lilly Varner HDL NORMAL > or = 60 mg/dl - LO W CARDIOVASCULAR RISK <40 mg/dl - HIGH CARDIOVASCULAR RISK Normal [facility] Comment on above: Performed By: #### C MP, TSH, LIPID #### [facility] [address] [address] [address] Lilly Varner LDL CALC NORMAL SEE BELOW Normal [facility] Comment on above: Result Comment: <100 mg/dl OPTIMAL 100 - 129 mg/dl NEAR OR ABOVE OPTIMAL 130 - 159 mg/dl BORDERLINE HIGH 160 - 189 mg/dl HIGH >190 mg/dl VERY HIGH Performed By: #### C MP, TSH, LIPID #### [facility] [address] [address] [address] Lilly Varner Triglyceride [Mass/Vol] 107 mg/dL Normal <=150 [facility] Comment on above: Performed By: #### C MP, TSH, LIPID #### [facility] [address] [address] [address] Lilly Varner VLDL CALC 21.4 mg/dL Normal [facility] Comment on above: Performed By: #### C MP, TSH, LIPID #### [facility] [address] [address] [address] Lilly Varner PROF 14(COMP METB)on 022 Albumin [Mass/Vol] 3.9 g/dL Normal 3.4-5.0 [facility] Comment on above: Performed By: #### C MP, TSH, LIPID #### [facility] [address] [address] [address] Lilly Varner Albumin/Globulin [Mass ratio] 1.1 {ratio} Normal [facility] Comment on above: Performed By: #### C MP, TSH, LIPID #### [facility] [address] [address] [address] Lilly Varner ALP [Catalytic activity/Vol] 103 U/L Normal 46-116 [facility] Comment on above: Performed By: #### C MP, TSH, LIPID #### [facility] [address] [address] [address] Lilly Varner ALT [Catalytic activity/Vol] 44 U/L Normal 14-59 [facility] Comment on above: Performed By: #### C MP, TSH, LIPID #### [facility] [address] [address] [address] Lilly Varner Anion gap [Moles/Vol] 12.7 mmol/L Normal [facility] Comment on above: Performed By: #### C MP, TSH, LIPID #### [facility] [address] [address] [address] Lilly Varner AST [Catalytic activity/Vol] 24 U/L Normal 15-37 [facility] Comment on above: Performed By: #### C MP, TSH, LIPID #### [facility] [address] [address] [address] Lilly Varner Bilirubin [Mass/Vol] 0.4 mg/dL Normal 0.2-1.0 [facility] Comment on above: Performed By: #### C MP, TSH, LIPID #### [facility] [address] [address] [address] Lilly Varner Calcium [Mass/Vol] 9.1 mg/dL Normal 8.5-10.1 [facility] Comment on above: Performed By: #### C MP, TSH, LIPID #### [facility] [address] [address] [address] Lilly Varner Chloride [Moles/Vol] 104 mmol/L Normal 98-107 [facility] Comment on above: Performed By: #### C MP, TSH, LIPID #### [facility] [address] [address] [address] Lilly Varner CO2 [Moles/Vol] 28.4 mmol/L Normal 21.0-32.0 [facility] Comment on above: Performed By: #### C MP, TSH, LIPID #### [facility] [address] [address] [address] Lilly Varner Creatinine [Mass/Vol] 0.75 mg/dL Normal 0.55-1.02 [facility] Comment on above: Performed By: #### C MP, TSH, LIPID #### [facility] [address] [address] [address] Lilly Varner EGFR-AF MOROCCAN >60 Normal >=60 [facility] Comment on above: Performed By: #### C MP, TSH, LIPID #### [facility] [address] [address] [address] Lilly Varner EGFR-NON AF MOROCCAN >60 Normal >=60 [facility] Comment on above: Performed By: #### C MP, TSH, LIPID #### [facility] [address] [address] [address] Lilly Varner Globulin (S) [Mass/Vol] 3.7 g/dL Normal [facility] Comment on above: Performed By: #### C MP, TSH, LIPID #### [facility] [address] [place] [address] Dr. Lilly Varner Glucose [Mass/Vol] 98 mg/dL Normal 74-106 [facility] Comment on above: Performed By: #### C MP, TSH, LIPID #### [facility] [address] [address] [address] Lilly Varner Potassium [Moles/Vol] 4.1 mmol/L Normal 3.5-5.1 [facility] Comment on above: Performed By: #### C MP, TSH, LIPID #### [facility] [address] [address] [address] Lilly Varner Protein [Mass/Vol] 7.6 g/dL Normal 6.4-8.2 [facility] Comment on above: Performed By: #### C MP, TSH, LIPID #### [facility] [address] [place] [address] Dr. Lilly Varner Sodium [Moles/Vol] 141 mmol/L Normal 136-145 [facility] Comment on above: Performed By: #### C MP, TSH, LIPID #### [facility] [address] [address] [address] Lilly Varner Urea nitrogen [Mass/Vol] 16.0 mg/dL Normal 7.0-18.0 [facility] Comment on above: Performed By: #### C MP, TSH, LIPID #### [facility] [address] [address] [address] Lilly Varner Urea nitrogen/Creatinine [Mass ratio] 21.3 mg/mg Normal [facility] Comment on above: Performed By: #### C MP, TSH, LIPID #### [facility] [address] [id number] Lilly Varner TSHon 2022 TSH 1.280 uIU/mL Normal 0.358-3.74 0 [facility] Comment on above: Performed By: #### C MP, TSH, LIPID #### [facility] [address] [address] [address] Lilly Varner [facility]17 SARS-CoV-2 (COVID-19) RNA SHILPI+probe Ql (Unsp spec) Detected Critically abnormal NOT DETECTED [facility] Comment on above: Result Comment: This test is not yet approved or cleared by the [place] FDA. When there are no FDA-approved or cleared tests available, and other criteria are met, FDA can make tests available under an emergency access mechanism called an Emergency Use Authorization (EUA). The EUA for this test is supported by the Bundle Cutter of Health and Human Service's declaration that [...] used). Performed By: #### C VDTBH #### [facility] [id number] 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 SEE COMMENT. -- Diagnosis Comment -- By report HER2 IHC is negative (1+). Krista Coto M.D. Electronically Signed Out 02/19/2022 Clinical Information Operative Findings: RIGHT BREAST 6:00 MASS AND CALCIFICATIONS Operation Performed: US GUIDED CORE BIOPSY OF BREAST Source of Specimen A: OUTSIDE SLIDES Gross Description Received from [facility] Department of Pathology are 6 slides labelled, [id number], ZOILAMIRELLAKEITH TENISHA, for consultation at the request of [...] RATE SCORE: 3. - OVERALL GRADE (FROM LELIOTT TOTAL SCORE): Grade 3 (poorly differentiated). DCIS [...] 1410 OUTSIDE CONSULTATION Patient Name: TENISHA HANCOCK [facility] Rec: [id number] Path Number: [id number] [facility] ANATOMIC PATHOLOGY [address] [facility]. [place], [place] [address] Normal [facility] Comment on above: Performed By: #### P PPVOC #### [facility] [address] [place] [id number] Balance Assembler: Rico Melo MD [facility] BREAST SPECIMENon 2021 [facility] BREAST SPECIMEN EXAMINATION: SPECIMEN RADIOGRAPH 02/17/2022 [...] MD 02/17/22 Final result Normal [facility] Specimen radiograph demonstrates inclusion of the targeted microcalcifications and biopsy clip Findings discussed with Dr. Murguia in person at 12:55pm on 02/17/2022 [facility] CONSOLIDATED EXAMINATION: SPECIMEN RADIOGRAPH 02/17/2022 TECHNIQUE: [...] coordinates are A3. Wire tip is intact. [facility] RIS CONSOLIDATED CORKY WELCH [employer] Work Phone: Radiology Study observation (narrative) [employer] Work Phone: WILLIE NEEDLE BREAST LOCALIZATI ON [...] Eng MD 02/17/22 Final result Normal [facility] NEEDLE LOCALIZATION RIG Ton 02-17-2022 Mammographic wire localization of biopsy clip and associated microcalcifications, as described. No residual mammographic mass. [facility] RIS CONSOLIDATED EXAMINATION: MAMMOGRAPHIC GUIDED NEEDLE LOCALIZATION [...] the wire. No significant residual mammographic mass. [facility] RIS CONSOLIDATED Radiology Study observation (narrative) [employer] Work Phone: WILLIE NEEDLE LOCALIZATION RIGH TOrdered By: Gage Eng on 02-17-2022 [employer] Phone: NM LYMPHOSCINTIGRAMon 2021 NM LYMPHOSCINTIGRAM EXAMINATION: [...] MD 02/17/22 Final result Normal [facility] Prompt identificatio n of sentinel lymph node in the right axilla. [facility] EXAMINATION: LYMPHOSCINTIGRAPHY (INJECTION AND IMAGES) 02/17/2022 9:24 [...] ?->No Reason for Exam: Right Breast CA [facility] Gage Eng MD - 02/17/2022 EXAMINATION: LYMPHOSCINTIGRAPHY [...] sentinel lymph node in the right axilla. [employer] Phone: Radiology Study observation (narrative) [employer] Phone: NM LYMPHOSCINTIGRAMOrdered B y: Gage Eng on 02-17-[address] [employer] Phone: Surgical Pathologyon 022 Surgical Pathology (NOTE) -- Diagnosis -- A. RIGHT AXILLARY SENTINEL LYMPH NODES, EXCISIONAL BIOPSIES: - NEGATIVE FOR MALIGNANCY (0/5). B. 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 Cassette summary: 1-26 component 1 business development representative submitted from lateral to medial with [...] DX: Negative for malignancy on frozen sections. ([facility], 02/17/22) Microscopic Description A, B. PROCEDURE: [...] (more content not included)... Normal [facility] Comment on above: Performed By: #### P PPVS #### [facility] [employer] [address] [id number] Balance Assembler: Rico Melo MD MRI BREAST BILATERAL W [...] right mammogram of 22 April 2021 from [facility]. Other right mammogram of June 2021 at an outside facility is not available. HISTORY: ORDERING SYSTEM PROVIDED HISTORY: Malignant neoplasm of right female breast, unspecified estrogen receptor status, unspecified site of breast (HCC) TECHNOLOGIST PROVIDED HISTORY: STAT Creatinine as needed:->Yes Last MRI done at [facility] in [place]. Result scanned in Media Reason for Exam: Last MRI done at [facility] in [place]. Result scanned in Media , Malign Additional signs and symptoms: Last MRI done at [facility] in [place]. Result scanned in Media , Malignant neoplasm [...] OVERALL ASSESSMENT - KNOWN BIOPSY PROVEN MALIGNANCY. [facility] RIS CONSOLIDATED EXAMINATION: MRI OF THE BILATERAL [...] right mammogram of 22 April 2021 from [facility]. Other right mammogram of June 2021 at an outside facility is not available. HISTORY: ORDERING SYSTEM PROVIDED HISTORY: Malignant neoplasm of right female breast, unspecified estrogen receptor status, unspecified site of breast (HCC) TECHNOLOGIST PROVIDED HISTORY: STAT Creatinine as needed:->Yes Last MRI done at [facility] in [place]. Result scanned in Media Reason for Exam: Last MRI done at [facility] in [place]. Result scanned in Media , Malign Additional signs and symptoms: Last MRI done at [facility] in [place]. Result scanned in Media , Malignant neoplasm [...] abnormal signal intensity or contrast enhancement noted. [facility] CONSOLIDATED Radiology Study observation (narrative) [employer] Phone: MRI BREAST BILATERAL W WO CO NTRASTOrdered By: Heber Fofana on 02-04-2022 Interpretation and review of laboratory results Abnormal [employer] Phone: [employer] Phone: Aamir 01-29-2022 SELMA Telephone (SKYLER) TENISHA HANCOCK ([id number]) 1975 F DEF Date Time Provider Department [...] Status:Closed by NAT RICKETTS on 02/02/22 Normal [facility] CNOVon 01-15-2022 CNOV Office Visit (PLASMN ) TENISHA HANCOCK ([id number]) 1975 F DEF Date Time Provider Department [...] breast in May 2021. Dr. Reza in [place] is her breast surgeon. 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 Tenisha Trish Hancock was given supplemental information on breast [...] Past Histories independently gathered by the clinical software support specialist and the remaining scribed note accurately describes my personal service to the patient. patient's condition reviewed and examined ? plan and options of management, complexity, risk benefit limitation potential complication, success /failure of management, expected result and recovery discussed ? I spent 30 minutes in the visit, with more than 50% of the total [id number] time of the visit in counseling / [...] Problem Li (more content not included)... Normal [facility] Aamir 01-15-2022 CELINEN Telephone (RILEYAV) TENISHA HANCOCK ([id number]) 1975 F DEF Date Time Provider Department [...] been, she has had studies at both [facility] and [place]. I was able to have patient get [...] Signed Noted I will check when in [place] on Wednesday. Marybel Shirley 01/22/2022 9:54 AM [...] 1:20 PM Signed Imaging reports rec'd reviewed: [place] 04/2021 - R screening abnl 2.4 cm [...] I see a teaching note 06/23/21 at [facility] but limited documentation since then as [...] with arrival time for that 01/23 Sarah Chen [facility] 01/22/2022 3:14 PM Signed Patient called back, she left detailed message on voicemail to return her call at [phone]. Thank you. Nat Ricketts RN 01/22/2022 3:49 [...] for 60 min new cancer consult at [facility] Patient News Content Specialist 01/23/2022 9:57 AM Signed Pt scheduled Lucinda Alvarez Ma 01/23/2022 10:40 AM Signed Still have not received all records, I spoke to patient today and asked that she help expedite getting her pathology reports and slides from [place] along with all her images and reports, we also need all the workup done at [facility] and [place]. I provided [place] fax number and patient advised she will help me gather all her records. Lucinda Alvarez Ma 01/27/2022 10:00 AM Signed We still have not received path slides as of today. I called and LMOM for Jillian whom is the director of [facility] lab department to get an update. [...] 01/27/2022 10:34 AM Signed Jillian called from [place] she advised she will work on getting all slides sent to [facility]. Lucinda Alvarez Ma 01/28/2022 9:41 AM Signed Addended by: LUCINDA RED MA on: 01/28/2022 09:41 AM Modules accepted: Orders Allergies As of Date: 01/15/2022 (No Known Allergies) Date Reviewed: 01/15/2022 Reviewed by: Diamond Gibson - Fully Assessed Reason for Visit: Appointment [[id number]] Order(s):OUTSIDE SURG PATH SLIDE REVIEW [[id number]] Order #: [id number] Prescriptions as of 01/28/2022 - citalopram (CELEXA) 20 mg tablet Take 20 mg (more content not included)... Normal [facility] Basophils Auto (Bld) [#/Vol] Ordered By: Kallie Chang on 12-24-2021 Basophils (Bld) [#/Vol] 0.0 10*3/uL 0.0-0.2 [facility] Basophils/100 WBC Auto (Bld) Ordered By: Kallie Chang on 12-24-2021 Basophils/100 WBC (Bld) 0.3 % . [facility] Blood hemoglobin measurement (mass/volume)Ordered By: Kallie Chang on 12-24-2021 Hemoglobin (Bld) [Mass/Vol] 10.3 g/dL 11.8-15.4 [facility] Blood leukocytes automated c ount (number/volume)Ordered By: Kallie Chang on 12-24-2021 WBC (Bld) [#/Vol] 5.8 10*3/uL 4.5-11.0 [facility] Body fluid albumin measureme nt (mass/volume)Ordered By: Kallie Chang on 12-24-2021 Albumin (Body fld) [Mass/Vol] 3.8 g/dL 3.2-5.5 [facility] Creatinine and Glomerular fi ltration rate.predicted panel (S/P/Bld)Ordered By: Kallie Chang on 12-24-2021 Creatinine [Mass/Vol] 0.66 mg/dL 0.44-1.03 [facility] Eosinophils Auto (Bld) [#/Vo l]Ordered By: Kallie Chang on 12-24-2021 Eosinophils (Bld) [#/Vol] 0.1 10*3/uL 0.0-0.45 [facility] Eosinophils/100 WBC Auto (Bl d)Ordered By: Kallie Chang on 12-24-2021 Eosinophils/100 WBC (Bld) 0.9 % . [facility] Erythrocyte distribution wid th Auto (RBC) [Ratio]Ordered By: Kallie Chang on 12-24-2021 Erythrocyte distribution width (RBC) [Ratio] 13.9 % 11.9-15.3 [facility] Estimated glomerular filtrat ion rate (GFR) non- AmericanOrdered By: Kallie Chang on 12-24-2021 GFR/1.73 sq M.predicted among non-blacks MDRD (S/P/Bld) [Vol rate/Area] > 60 mL/Min [facility] Globulin Calc (S) [Mass/Vol] Ordered By: Kallie Chang on 12-24-2021 Globulin (S) [Mass/Vol] 3.0 g/dL [facility] Hematocrit Auto (Bld) [Volum e fraction]Ordered By: Kallie Chang on 12-24-2021 Hematocrit (Bld) [Volume fraction] 30.4 % 34.0-46.4 [facility] Laboratory - Hematology and Cell countsOrdered By: Kallie Chang on 12-24-2021 Nucleated RBC/100 WBC (Bld) [Ratio] 0.0 % 0-0.5 [facility] Lymphocytes Auto (Bld) [#/Vo l]Ordered By: Kallie Chang on 12-24-2021 Lymphocytes (Bld) [#/Vol] 1.2 10*3/uL 1.00-4.8 [facility] Lymphocytes/100 WBC Auto (Bl d)Ordered By: Kallie Chang on 12-24-2021 Lymphocytes/100 WBC (Bld) 21.5 % . [facility] MCH Auto (RBC) [Entitic mass ]Ordered By: Kallie Chang on 12-24-2021 MCH (RBC) [Entitic mass] 34.6 pg 24.7-34.3 [facility] MCHC Auto (RBC) [Mass/Vol]Or dered By: Kallie Chang on 12-24-2021 MCHC (RBC) [Mass/Vol] 33.9 g/dL 32.0-35.0 [facility] MCV Auto (RBC) [Entitic vol] Ordered By: Kallie Chang on 12-24-2021 MCV (RBC) [Entitic vol] 102.2 fL 80-100 [facility] Macrocytes detectionOrdered By: Kallie Chang on 12-24-2021 Macrocytes Ql (Bld) Slight [facility] Monocytes Auto (Bld) [#/Vol] Ordered By: Kallie Chang on 12-24-2021 Monocytes (Bld) [#/Vol] 0.3 10*3/uL 0.0-0.8 [facility] Monocytes/100 WBC Auto (Bld) Ordered By: Kallie Chang on 12-24-2021 Monocytes/100 WBC (Bld) 5.5 % . [facility] Neutrophils Auto (Bld) [#/Vo l]Ordered By: Kallie Chang on 12-24-2021 Neutrophils (Bld) [#/Vol] 4.1 10*3/uL 1.8-7.7 [facility] Neutrophils/100 WBC Auto (Bl d)Ordered By: Kallie Chang on 12-24-2021 Neutrophils/100 WBC (Bld) 71.8 % . [facility] No Panel InformationOrdered By: Kallie Chang on 12-24-2021 Estimated GFR () > 60 mL/Min [facility] Comment on above: GFR estimated refere nce range: According to KDOQI guidelines, <60 ml/min/1.73m2 is sufficient to diagnose a patient with chronic kidney disease. Pharmacy Creatinine Clearance (Chem 115.02 [facility] Platelet Estimate Normal Normal [facility] Platelet Morphology Comment Normal Normal [facility] Poikilocytosis Slight [facility] Ovalocyte detectionOrdered B y: Kallie Chang on 12-24-2021 Ovalocytes LM Ql (Bld) Slight [facility] Platelet mean volume Auto (B ld) [Entitic vol]Ordered By: Kallie Chang on 12-24-2021 Platelet mean volume (Bld) [Entitic vol] 8.0 fL 6.3-10.7 [facility] Platelets Auto (Bld) [#/Vol] Ordered By: Kallie Chang on 12-24-2021 Platelets (Bld) [#/Vol] 207 10*3/uL 150-450 [facility] Protein [Mass/volume] in Ser um or PlasmaOrdered By: Kallie Chang on 12-24-2021 Protein [Mass/Vol] 6.8 g/dL 6.1-7.9 [facility] RBC Auto (Bld) [#/Vol]Ordere d By: Kallie Chang on 12-24-2021 RBC (Bld) [#/Vol] 2.98 10*6/uL 3.60-5.00 [facility] RBC morphologyOrdered By: Precious Chang on 12-24-2021 RBC morphology finding Nom (Bld) N/A [facility] Serum or plasma alanine napoles otransferase measurement without P-5'-P (enzymatic activiOrdered By: Kallie Chang on 12-24-2021 ALT No additional P-5'-P [Catalytic activity/Vol] 20 U/L 10-60 [facility] Serum or plasma albumin/glob ulin mass ratioOrdered By: Kallie Chang on 12-24-2021 Albumin/Globulin [Mass ratio] 1.3 {ratio} [facility] Serum or plasma alkaline zo sphatase measurement (enzymatic activity/volume)Ordered By: Kallie Chang on 12-24-2021 ALP [Catalytic activity/Vol] 112 U/L 32-92 [facility] Serum or plasma aspartate am inotransferase measurement (enzymatic activity/volume)Ordered By: Kallie Chang on 12-24-2021 AST [Catalytic activity/Vol] 17 U/L 10-42 [facility] Serum or plasma calcium daiana urement (mass/volume)Ordered By: Kallie Chang on 12-24-2021 Calcium [Mass/Vol] 9.6 mg/dL 8.2-10.2 [facility] Serum or plasma chloride lizett surement (moles/volume)Ordered By: Kallie Chang on 12-24-2021 Chloride [Moles/Vol] 98 mmol/L 95-114 [facility] Serum or plasma glucose daiana urement (mass/volume)Ordered By: Kallie Chang on 12-24-2021 Glucose [Mass/Vol] 119 mg/dL 70-100 [facility] Comment on above: ADA recommended refe [...] on 12-24-2021 Potassium [Moles/Vol] 4.0 mmol/L 3.5-5.1 [facility] Serum or plasma sodium measu rement (moles/volume)Ordered By: Kallie Chang on 12-24-2021 Sodium [Moles/Vol] 134 mmol/L 136-146 [facility] Serum or plasma total biliru bin measurement (mass/volume)Ordered By: Kallie Chang on 12-24-2021 Bilirubin [Mass/Vol] 0.5 mg/dL 0.3-1.2 [facility] Serum or plasma total carbon dioxide measurement (moles/volume)Ordered By: Kallie Chang on 12-24-2021 CO2 [Moles/Vol] 23.2 mmol/L 22.0-30.0 [facility] Serum or plasma urea nitroge n measurement (mass/volume)Ordered By: Kallie Chang on 12-24-2021 Urea nitrogen [Mass/Vol] 7 mg/dL 9-23 [facility] CNPNon 12-19-2021 CNPN Telephone (DPQ) TENISHA HANCOCK ([id number]) 1975 F Date Time Provider Department 12/19/21 FAHAD RUSSELL DPQ During your visit today, we recorded the following information about you: Alfredo Teague [facility] 12/19/2021 10:46 AM Signed I was unable [...] Status:Closed by ALFREDO ORTEGA on 12/19/21 Normal [facility] No Panel InformationOrdered By: Kallie Chang on 12-16-2021 Adrenocorticotropic Hormone 31.0 pg/mL 7.2-63.3 [facility] Comment on above: ACTH reference inter ervin for samples collected between 7 and 10 AM. Performed at: [employer] [id number] Balance Assembler: Red Sena PhD, Phone: [phone] ACTH reference inter ervin for samples collected between 7 and10 AM.Performed at: [facility] [id number] Director: Red Sena PhD, Phone: [phone] Random cortisol measurementO rdered By: Kallie Chang on 12-16-2021 Cortisol [Mass/Vol] 7.2 ug/dL [facility] Comment on above: Reference range: AM 6 - 24 ug/dl PM <10 ug/dl Reference range: AM 6 - 24 ug/dl PM <10 ug/dl TSH DL <= 0.005 mIU/L QnOrde red By: Kallie Chang on 12-16-2021 TSH Qn 0.08 m[IU]/L 0.45-5.33 [facility] Thyroxine (T4) free [Mass/vo lume] in Serum or PlasmaOrdered By: Kallie Chang on 12-16-2021 Free T4 [Mass/Vol] 0.74 ng/dL 0.61-1.12 [facility] No Panel InformationOrdered By: Kallie Chang on 12-02-2021 Dohle Bodies Slight [facility] Teardrop cell detectionOrder ed By: Kallie Chang on 12-02-2021 Dacrocytes LM Ql (Bld) Slight [facility] Toxic leukocyte granulation detectionOrdered By: Kallie Chang on 12-02-2021 Toxic granules LM Ql (Bld) Slight [facility] Basophils/100 WBC Auto (Bld) Ordered By: Kallie Chang on 11-04-2021 Basophils/100 WBC (Bld) 1 % 0-2 [facility] Blood anisocytosis detection Ordered By: Kallie Chang on 11-04-2021 Anisocytosis Ql (Bld) Moderate Fir [facility] Blood polychromasia detectio n by light microscopyOrdered By: Kallie Chang on 11-04-2021 Polychromasia LM Ql (Bld) Slight [facility] Erythrocyte basophilic stipp ling detectionOrdered By: Kallie Chang on 11-04-2021 Basophilic stippling LM Ql (Bld) Rare [facility] Laboratory - Hematology and Cell countsOrdered By: Kallie Chang on 11-04-2021 Band form neutrophils/100 WBC (Bld) 1 % 0-5 [facility] Lymphocytes/100 WBC Auto (Bl d)Ordered By: Kallie Chang on 11-04-2021 Lymphocytes/100 WBC (Bld) 25 % 18-42 [facility] Monocytes/100 WBC Manual cnt (Bld)Ordered By: Kallie Chang on 11-04-2021 Monocytes/100 WBC (Bld) 6 % 2-11 [facility] Myelocytes/100 WBC Manual cn t (Bld)Ordered By: Kallie Chang on 11-04-2021 Myelocytes/100 WBC (Bld) 3 % 0-0 [facility] No Panel InformationOrdered By: Kallie Chang on 11-04-2021 Rouleau Slight [facility] Segmented neutrophils/100 WB C Manual cnt (Bld)Ordered By: Kallie Chang on 11-04-2021 Segmented neutrophils/100 WBC (Bld) 64 % 50-70 [facility] Otheron 06-06-1998 CONVERTED ELECTRONIC SIGNATURE PATI CARTAGENA, SUPERVISORY FELLING MACHINE OPERATOR (Electronic signature on file) Final Signed Out: 06/06/1998 15:39 [facility] CONVERTED FINAL DIAGNOSIS SPECIMEN ADEQU ACY SATISFACTORY FOR EVALUATION GENERAL CATEGORIZATION BENIGN CELLULAR CHANGES DESCRIPTIVE DIAGNOSIS FUNGAL ORGANISMS MORPHOLOGICALLY CONSISTENT WITH JUAN CARLOS SPECIES. INFLAMMATORY CELL CHANGES. HORMONAL EVALUATION HORMONAL PATTERN COMPATIBLE WITH AGE AND HISTORY [facility] CONVERTED ORDERING PROVIDER Ordering Provider: JAMARI HOYT [facility] CONVERTED PAP DISCLAIMER The Pap test se rves as a screening tool for early detection of cervical cancer. The Pap test does not represent a final diagnostic test for cervical cancer. Furthermore, the Pap test was not designed to screen for other malignancies (endometrial, ovarian cancer, etc....). False negatives and false positives have occurred. If clinically indicated, further patient evaluation is recommended. [facility] Vital Signs Date Time Vital Sign Value Performing Clinician Gianluca parkinson 04-17-2025 10:07-0400 Body height 160.02 cm [facility] 04-17-2025 10:07-0400 Body mass index (BMI) [Ratio] 30.6 kg/m2 [facility] 04-17-2025 10:07-0400 Body weight 78.47 kg [facility] 04-17-2025 10:07-0400 Diastolic blood pressure 66 mm[Hg] [facility] 04-17-2025 10:07-0400 Heart rate 72 /min [facility] 04-17-2025 10:07-0400 Respiratory rate 16 /min [facility] 04-17-2025 10:07-0400 SaO2% (BldA) [Mass fraction] 97 % [facility] 04-17-2025 10:07-0400 Systolic blood pressure 122 mm[Hg] [facility] 01-15-2025 09:46-0400 Body height 160.02 cm PHYSICIAN NO [facility] 01-15-2025 09:46-0400 Body mass index (BMI) [Ratio] 30 kg/m2 PHYSICIAN NO [facility] 01-15-2025 09:46-0400 Body temperature 98 [degF] PHYSICIAN NO [facility] 01-15-2025 09:46-0400 Body weight 76.88 kg PHYSICIAN NO [facility] 01-15-2025 09:46-0400 Diastolic blood pressure 73 mm[Hg] PHYSICIAN NO [facility] 01-15-2025 09:46-0400 Heart rate 67 /min PHYSICIAN NO [facility] 01-15-2025 09:46-0400 Respiratory rate 18 /min PHYSICIAN NO [facility] 01-15-2025 09:46-0400 SaO2% (BldA) [Mass fraction] 98 % PHYSICIAN NO [facility] 01-15-2025 09:46-0400 Systolic blood pressure 125 mm[Hg] PHYSICIAN NO [facility] 12-15-2024 10:53-0400 Body height 160.02 cm PHYSICIAN NO [facility] 12-15-2024 10:53-0400 Body mass index (BMI) [Ratio] 28.8 kg/m2 PHYSICIAN NO [facility] 12-15-2024 10:53-0400 Body temperature 97.6 [degF] PHYSICIAN NO [facility] 12-15-2024 10:53-0400 Body weight 73.93 kg PHYSICIAN NO [facility] 12-15-2024 10:53-0400 Diastolic blood pressure 66 mm[Hg] PHYSICIAN NO [facility] 12-15-2024 10:53-0400 Heart rate 72 /min PHYSICIAN NO [facility] 12-15-2024 10:53-0400 Respiratory rate 16 /min PHYSICIAN NO [facility] 12-15-2024 10:53-0400 SaO2% (BldA) [Mass fraction] 94 % PHYSICIAN NO [facility] 12-15-2024 10:53-0400 Systolic blood pressure 96 mm[Hg] PHYSICIAN NO [facility] 10-25-2024 14:37-0400 Body mass index (BMI) [Ratio] 29.72 kg/m2 Chidi Sergey DO Work Phone: [facility] 10-25-2024 14:37-0400 Body weight 76.09 kg Chidi Sergey DO Work Phone: [facility] 10-25-2024 14:37-0400 Diastolic blood pressure 70 mm[Hg] Chidi Sergey DO Work Phone: [facility] 10-25-2024 14:37-0400 Systolic blood pressure 102 mm[Hg] Chidi Sergey DO Work Phone: [facility] 06-26-2024 14:29-0500 Body height 160 cm Demetra Sparrow BUILDING INSULATION INSTALLER Work Phone: [facility] 06-26-2024 14:29-0500 Body mass index (BMI) [Ratio] 28.61 kg/m2 Demetra Sparrow BUILDING INSULATION INSTALLER Work Phone: [facility] 06-26-2024 14:29-0500 Body temperature 96.8 [degF] Demetra Sparrow BUILDING INSULATION INSTALLER Work Phone: [facility] 06-26-2024 14:29-0500 Body weight 73.26 kg Demetra Sparrow BUILDING INSULATION INSTALLER Work Phone: [facility] 06-26-2024 14:29-0500 Diastolic blood pressure 68 mm[Hg] Demetra Sparrow BUILDING INSULATION INSTALLER Work Phone: [facility] 06-26-2024 14:29-0500 Heart rate 85 /min Demetra Sparrow BUILDING INSULATION INSTALLER Work Phone: [facility] 06-26-2024 14:29-0500 Respiratory rate 16 /min Demetra Sparrow BUILDING INSULATION INSTALLER Work Phone: [facility] 06-26-2024 14:29-0500 SaO2% (BldA) [Mass fraction] 98 % Demetra Sparrow BUILDING INSULATION INSTALLER Work Phone: [facility] 06-26-2024 14:29-0500 Systolic blood pressure 110 mm[Hg] Demetra Sparrow BUILDING INSULATION INSTALLER Work Phone: [facility] 06-01-2024 10:32-0500 Body height 160 cm Hi Nguyễn DPM Work Phone: [facility] 06-01-2024 10:32-0500 Body mass index (BMI) [Ratio] 28.52 kg/m2 Hi Nguyễn DPM Work Phone: [facility] 06-01-2024 10:32-0500 Body weight 73.03 kg Hi Marvin DPM Work Phone: [facility] 06-01-2024 10:32-0500 Diastolic blood pressure 79 mm[Hg] Hi Brown DPM Work Phone: [facility] [facility] 06-01-2024 10:32-0500 Heart rate 83 /min Hi Nguyễn DPM Work Phone: [facility] 06-01-2024 10:32-0500 Systolic blood pressure 128 mm[Hg] Hi Marvin DPM Work Phone: [facility] 04-17-2024 15:36-0400 Body mass index (BMI) [Ratio] 28.34 kg/m2 Chidi Sergey DO Work Phone: [facility] 04-17-2024 15:36-0400 Body weight 72.58 kg Chidi Sergey DO Work Phone: [facility] 04-17-2024 15:36-0400 Diastolic blood pressure 70 mm[Hg] Chidi Sergey DO Work Phone: [facility] 04-17-2024 15:36-0400 Systolic blood pressure 114 mm[Hg] Chidi Sergey DO Work Phone: [facility] 11-03-2023 15:43-0400 Blood Pressure Location Ismael NILL [facility] 11-03-2023 15:43-0400 Diastolic blood pressure 66 mm[Hg] Ismael NILL [facility] 11-03-2023 15:43-0400 Heart rate 70 /min Ismael NILL [facility] [place] 11-03-2023 15:43-0400 Respiratory rate 16 /min Ismael NILL [facility] 11-03-2023 15:43-0400 Systolic blood pressure 112 mm[Hg] Ismael NILL [facility] 11-25-2022 14:42-0400 Body temperature 97.8 [degF] MD Eliel Hurd Work Phone: [facility] 11-25-2022 14:42-0400 Body weight 79.83 kg MD Eliel Hurd Work Phone: [facility] 11-25-2022 14:42-0400 Diastolic blood pressure 73 mm[Hg] MD Eliel Hurd Work Phone: [facility] 11-25-2022 14:42-0400 Heart rate 75 /min MD Eliel Hurd Work Phone: [facility] 11-25-2022 14:42-0400 Respiratory rate 16 /min MD Eliel Hurd Work Phone: [facility] 11-25-2022 14:42-0400 SaO2% (BldA) [Mass fraction] 97 % MD Eliel Hurd Work Phone: [facility] 11-25-2022 14:42-0400 Systolic blood pressure 109 mm[Hg] MD Eliel Hurd Work Phone: [facility] 09-18-2022 13:38-0500 Body temperature 98 [degF] MD Eliel Hurd Work Phone: [facility] 09-18-2022 13:38-0500 Body weight 80.4 kg MD Eliel Hurd Work Phone: [facility] 09-18-2022 13:38-0500 Diastolic blood pressure 78 mm[Hg] MD Eliel Hurd Work Phone: [facility] 09-18-2022 13:38-0500 Heart rate 77 /min MD Eliel Hurd Work Phone: [facility] 09-18-2022 13:38-0500 Respiratory rate 16 /min MD Eliel Hurd Work Phone: [facility] 09-18-2022 13:38-0500 SaO2% (BldA) [Mass fraction] 99 % MD Eliel Hurd Work Phone: [facility] 09-18-2022 13:38-0500 Systolic blood pressure 115 mm[Hg] MD Eliel Hurd Work Phone: [facility] 08-14-2022 14:08-0500 Body weight 79.6 kg MD Eliel Hurd Work Phone: [facility] 08-14-2022 14:08-0500 Diastolic blood pressure 68 mm[Hg] MD Eliel Hurd Work Phone: [facility] 08-14-2022 14:08-0500 Heart rate 72 /min MD Eliel Hurd Work Phone: [facility] 08-14-2022 14:08-0500 Respiratory rate 18 /min MD Eliel Hurd Work Phone: [facility] 08-14-2022 14:08-0500 SaO2% (BldA) [Mass fraction] 99 % MD Eliel Hurd Work Phone: [facility] 08-14-2022 14:08-0500 Systolic blood pressure 103 mm[Hg] MD Eliel Hurd Work Phone: [facility] 08-07-2022 13:06-0500 Body temperature 98 [degF] MD Eliel Hurd Work Phone: [facility] 08-06-2022 13:31-0500 Body temperature 97.8 [degF] MD Eliel Hurd Work Phone: [facility] 08-06-2022 13:31-0500 Body weight 76.1 kg MD Eliel Hurd Work Phone: [facility] 08-06-2022 13:31-0500 Diastolic blood pressure 78 mm[Hg] MD Eliel Hurd Work Phone: [facility] 08-06-2022 13:31-0500 Heart rate 60 /min MD Eliel Hurd Work Phone: [facility] 08-06-2022 13:31-0500 Respiratory rate 16 /min MD Eliel Hurd Work Phone: [facility] 08-06-2022 13:31-0500 SaO2% (BldA) [Mass fraction] 95 % MD Eliel Hurd Work Phone: [facility] 08-06-2022 13:31-0500 Systolic blood pressure 115 mm[Hg] MD Eliel Hurd Work Phone: [facility] 07-15-2022 13:06-0500 Body height 160.02 cm MD Eliel Hurd Work Phone: [facility] 07-15-2022 13:06-0500 Body temperature 97.5 [degF] MD Eliel Hurd Work Phone: [facility] 07-15-2022 13:06-0500 Body weight 75.3 kg MD Eliel uHrd Work Phone: [facility] 07-15-2022 13:06-0500 Diastolic blood pressure 61 mm[Hg] MD Eliel Hurd Work Phone: [facility] 07-15-2022 13:06-0500 Heart rate 80 /min MD Eliel Hurd Work Phone: [facility] 07-15-2022 13:06-0500 Respiratory rate 18 /min MD Eliel Hurd Work Phone: [facility] 07-15-2022 13:06-0500 SaO2% (BldA) [Mass fraction] 98 % MD Eliel Hurd Work Phone: [facility] 07-15-2022 13:06-0500 Systolic blood pressure 102 mm[Hg] MD Eliel Hurd Work Phone: [facility] 06-18-2022 10:07-0500 Body height 160.02 cm MD Eliel Hurd Work Phone: [facility] 06-18-2022 10:07-0500 Body temperature 98.4 [degF] MD Eliel Hurd Work Phone: [facility] 06-18-2022 10:07-0500 Body weight 78.9 kg MD Eliel Hrud Work Phone: [facility] 06-18-2022 10:07-0500 Diastolic blood pressure 80 mm[Hg] MD Eliel Hurd Work Phone: [facility] 06-18-2022 10:07-0500 Heart rate 84 /min MD Eliel Hurd Work Phone: [facility] 06-18-2022 10:07-0500 Respiratory rate 20 /min MD Eliel Hurd Work Phone: [facility] 06-18-2022 10:07-0500 SaO2% (BldA) [Mass fraction] 100 % MD Eliel Hurd Work Phone: [facility] 06-18-2022 10:07-0500 Systolic blood pressure 117 mm[Hg] MD Eliel Hurd Work Phone: [facility] 03-19-2022 10:00-0400 Body temperature 98.8 [degF] MD Eliel Hurd Work Phone: [facility] 03-19-2022 10:00-0400 Body weight 90.26 kg MD Eliel Hurd Work Phone: [facility] 03-19-2022 10:00-0400 Diastolic blood pressure 86 mm[Hg] MD Eliel Hurd Work Phone: [facility] 03-19-2022 10:00-0400 Heart rate 68 /min MD Eliel Hurd Work Phone: [facility] 03-19-2022 10:00-0400 Respiratory rate 18 /min MD Eliel Hurd Work Phone: [facility] 03-19-2022 10:00-0400 SaO2% (BldA) [Mass fraction] 98 % MD Eliel Hurd Work Phone: [facility] 03-19-2022 10:00-0400 Systolic blood pressure 125 mm[Hg] MD Eliel Hurd Work Phone: [facility] 02-17-2022 16:00-0400 Body temperature 97.5 [degF] Diana Cashen DO Work Phone: [facility] [employer] 02-17-2022 16:00-0400 Diastolic blood pressure 71 mm[Hg] Diana Cashen DO Work Phone: [employer] 02-17-2022 16:00-0400 Heart rate 101 /min Diana Cashen DO Work Phone: [facility] [employer] 02-17-2022 16:00-0400 Respiratory rate 23 /min Diana Cashen DO Work Phone: [facility] [employer] 02-17-2022 16:00-0400 SaO2% (BldA) [Mass fraction] 95 % Diana Cashen DO Work Phone: [facility] [employer] 02-17-2022 16:00-0400 Systolic blood pressure 134 mm[Hg] Diana Cashen DO Work Phone: [facility] [employer] 02-17-2022 07:21-0400 Body height 160 cm Diana Cashen DO Work Phone: [facility] [employer] 02-17-2022 07:21-0400 Body mass index (BMI) [Ratio] 34.05 kg/m2 Diana Cashen DO Work Phone: [facility] [employer] 02-17-2022 07:21-0400 Body weight 87.18 kg Diana Cashen DO Work Phone[facility] 01-15-2022 15:34-0400 Body height 160 cm Fahad Russell MD Work Phone: [facility] 01-15-2022 15:34-0400 Body temperature 98.1 [degF] Fahad Russell MD Work Phone: [facility] 01-15-2022 15:34-0400 Body weight 87.59 kg Fahad Russell MD Work Phone: [facility] 01-15-2022 15:34-0400 Diastolic blood pressure 86 mm[Hg] Fahad Russell MD Work Phone: [facility] 01-15-2022 15:34-0400 Heart rate 72 /min Fahad Russell MD Work Phone: [facility] 01-15-2022 15:34-0400 Systolic blood pressure 149 mm[Hg] Fahad Russell MD Work Phone: [facility] 09-15-2021 15:45-0500 Body height 160.02 cm Franco Baronmitchell Other [employer] Other 09-15-2021 15:45-0500 Body mass index (BMI) [Ratio] 34.36 kg/m2 Franco Stokes Other [employer] Other 09-15-2021 15:45-0500 Body weight 88 kg Franco Stokes Other [employer] Other 07-08-2021 14:14-0500 Body height 160.02 cm MD Eliel Hurd Work Phone: [facility] Encounters Encounter Date Encounter Type Care Provider Facility Start: 04-17-2025 End: 04-17-2025 ambulatory NON STAFF [facility] Work Phone: Start: 04-17-2025 End: 04-17-2025 Patient encounter procedure Cinthia Fields DO -[facility] [place] Work Phone: Start: 04-17-2025 End: 04-17-2025 Patient encounter status Cinthia Fields DO [facility] Start: 01-15-2025 End: 01-15-2025 ambulatory PHYSICIAN NO FAMILY [facility] Work Phone: Start: 01-15-2025 End: 01-15-2025 Patient encounter procedure Nayla Chambers APRN -[facility] [place] Work Phone: Start: 12-15-2024 End: 12-15-2024 Departed Referred PHYSICIAN NO [facility] Start: 12-15-2024 End: 12-15-2024 ambulatory PHYSICIAN NO [facility] Work Phone: Start: 12-15-2024 End: 12-15-2024 Patient encounter procedure PHYSICIAN NO [facility] [place] Work Phone: Start: 10-25-2024 End: 10-25-2024 ambulatory CHIDI SERGEY [...] 10-05-2024 End: 10-05-2024 Patient encounter procedure PHYSICIAN NO [facility] Work Phone: Start: 10-05-2024 End: 10-05-2024 ambulatory PHYSICIAN NO [facility] Work Phone: Start: 07-18-2024 End: 07-19-2024 Refill Demetra Sparrow [employer]ILD[employer] Work Phone: [facility] Comment on above: Seasonal allergic rh initis, unspecified trigger Start: 06-26-2024 End: 06-26-2024 Office outpatient visit 15 minutes Demetra Sparrow [employer]ILD[employer]ATION INST[employer]ER Work Phone: [facility] Comment on above: Gastroesophageal ref lux disease, unspecified whether esophagitis present (Primary Dx); Other hyperlipidemia (CMS/HCC); Class 1 obesity due to excess calories without serious comorbidity with body mass index (BMI) of 30.0 to 30.9 in adult; Moderate episode of recurrent major depressive disorder (CMS/[facility]); Seasonal allergic rhinitis, unspecified trigger; Anxiety and depression ([facility]/HCC) Start: 06-26-2024 End: 06-26-2024 ambulatory DEMETRA SPARROW Not Available Start: 06-26-2024 End: 06-26-2024 Bamboo flowsheet Demetra Sparrow BUILDING INSULATION INSTALLER Work Phone: [facility] Start: 06-26-2024 End: 06-26-2024 Bamboo flowsheet Demetra Sparrow BUILDING INSULATION INSTALLER Work Phone: [facility] Start: 06-01-2024 [...] Office outpatient visit 10 minutes Jacqueline Chavez BUILDING INSULATION INSTALLER Work Phone: [facility] Comment on above: Left wrist pain Start: 05-02-2024 End: 05-02-2024 ambulatory JACQUELINE CHAVEZ Not Available Start: 05-02-2024 End: 05-02-2024 Bamboo flowsheet Jacqueline Chavez BUILDING INSULATION INSTALLER Work Phone: [facility] Start: 05-02-2024 End: 05-02-2024 Bamboo flowsheet Jacqueline Chavez BUILDING INSULATION INSTALLER Work Phone: [facility] Start: 04-17-2024 [...] 03-22-2024 End: 03-22-2024 Orders Only Demetra Sparrow BUILDING INSULATION INSTALLER Work Phone: [facility] Comment on above: Encounter for wellne ss examination in adult (Primary Dx) Start: 03-22-2024 End: 03-22-2024 Patient encounter status Demetra Sparrow BUILDING INSULATION INSTALLER Work Phone: [facility] Work Phone: Start: 03-09-2024 End: 03-09-2024 ambulatory [facility] Start: 03-09-2024 End: 03-09-2024 ambulatory AWA Sequeira JUANCHO [facility] Start: 02-03-2024 End: 02-03-2024 ambulatory HI NGUYỄN Not Available Start: 01-18-2024 End: 01-18-2024 ambulatory HI NGUYỄN Not Available Start: 01-13-2024 End: 01-13-2024 ambulatory SHAIKH PATRIA Not Available Start: 01-10-2024 End: 01-10-2024 Patient encounter procedure MD Shaikh España Work Phone: [facility] [place] Work Phone: Start: 01-10-2024 End: 01-10-2024 ambulatory MD Shaikh España Work Phone: [facility] Work Phone: Start: 01-03-2024 End: 01-03-2024 ambulatory HI NGUYỄN Not Available Start: 12-14-2023 End: 12-14-2023 ambulatory SHAIKH PATRIA Not Available Start: 11-03-2023 End: 11-03-2023 ambulatory Ismael BERMAN Facility: [facility] Start: 11-03-2023 End: 11-03-2023 Patient encounter procedure Ismael BERMAN General Surgery N[facility] Start: 11-01-2023 End: 11-01-2023 ambulatory SHAIKH PATRIA Not Available Start: 10-28-2023 End: 10-28-2023 ambulatory CASTILLO GONSALEZ Not Available Start: 08-25-2023 Orders Only Shaikh Patria POZO Work Phone: [facility] Comment on above: Left wrist pain (Kesha heber Dx); Pain of left thumb Start: 06-23-2023 ambulatory SYDNIE ANABEL Facility :[facility] [place] Start: 05-04-2023 ambulatory SYDNIE ANABEL Facility :[facility] [place] Start: 04-07-2023 End: 04-07-2023 ambulatory MD Eliel Hurd Work Phone: [facility] Work Phone: Start: 04-07-2023 End: 04-07-2023 Patient encounter procedure MD Eliel Hurd Work Phone: [facility] [address] Work Phone: Start: 02-15-2023 End: 02-16-2023 ambulatory Lashon Lizarraga MD Facility:[facility] [place] Start: 01-22-2023 ambulatory SYDNIE ANABEL Facility :[facility] [place] Start: 01-11-2023 End: 01-12-2023 ambulatory Lashon Lizarraga MD Facility:[facility] [place] Start: 12-28-2022 ambulatory LASHON LIZARRAGA Faci lity:[facility]1 Start: 12-01-2022 ambulatory BRIEN B APLING Facility :[facility] Start: 11-25-2022 End: 11-25-2022 ambulatory MD Eliel Hurd Work Phone: [facility] Work Phone: Start: 11-25-2022 End: 11-25-2022 Registered Recurring MD Eliel Hurd Work Phone: [facility] Work Phone: Start: 09-18-2022 End: 09-18-2022 ambulatory MD Eliel Hurd Work Phone: [facility] Work Phone: Start: 09-18-2022 End: 09-18-2022 Registered Recurring MD Eliel Hurd Work Phone: [facility] Work Phone: Start: 08-14-2022 End: 08-14-2022 ambulatory MD Eliel Hurd Work Phone: [facility] Work Phone: Start: 08-14-2022 End: 08-14-2022 Registered Recurring MD Eliel Hurd Work Phone: [facility] Work Phone: Start: 08-06-2022 End: 08-06-2022 ambulatory MD Eliel Hurd Work Phone: [facility] Work Phone: Start: 08-06-2022 End: 08-06-2022 Registered Recurring MD Eliel Hurd Work Phone: [facility] Work Phone: Start: 07-23-[address] DOCTOR STRINGER Facility : Start: 07-22-2022 End: 07-22-2022 ambulatory MD Eliel Hurd Work Phone: [facility] Work Phone: Start: 07-22-2022 End: 07-22-2022 Registered Recurring MD Eliel Hurd Work Phone: [facility] Work Phone: Start: 06-19-2022 End: 06-19-2022 Patient encounter procedure MD Eliel Hurd Work Phone: [facility] [place] Work Phone: Start: 06-18-2022 End: 06-18-2022 ambulatory MD Eliel Hurd Work Phone: [facility] Work Phone: Start: 06-18-2022 End: 06-18-2022 Registered Recurring MD Eliel Hurd Work Phone: [facility] Start: 04-16-2022 End: 04-16-2022 ambulatory MD Eliel Hurd Work Phone: [facility] Work Phone: Start: 04-16-2022 End: 04-16-2022 Registered Recurring MD Eliel Hurd Work Phone: [facility] Start: 04-16-2022 End: 04-16-2022 Discharged Recurring MD Eliel Hurd Work Phone: [facility] Ctr-Infusion Therapy - O/P Start: 04-14-2022 End: 04-15-[address] KRISTA ROBERTSON Facility:[facility]1 Start: 04-07-2022 End: 04-07-[address] CHIDI RINCON . Facility:[facility] Start: 04-05-2022 Encounter for genera l adult medical examination without abnormal findings DR ELIEL HURD . [facility] Start: 2022 End: 04-01-2022 Encounter for general adult medical examination without abnormal findings DR ELIEL HURD . Facility:[facility] Start: 2022 End: 04-01-[address] ELIEL HURD . Facility:[facility] Start: 03-20-2022 Registered Recurring MD Eliel rogers Work Phone: [facility]Infusion Therapy - O/[facility] Start: 03-19-2022 End: 03-19-2022 Registered Recurring MD Eliel Hurd Work Phone: [facility] Start: 03-14-2022 End: 03-14-2022 ambulatory EARNEST HDZ Facility:[facility]1 Start: 03-12-2022 End: 03-12-2022 Registered Recurring MD Eliel Hurd [facility] Start: 02-18-2022 End: 02-19-2022 ambulatory DIANA De Los Santos [facility] Start: 02-17-2022 End: 02-20-2022 ambulatory DIANA P [facility] Start: 02-17-2022 End: 02-17-2022 ambulatory DIANA [facility] Start: 02-17-2022 End: 02-19-2022 Subsequent hospital visit by physician Jackie Everett Room 1 [facility] Nuclear Medicine Comment on above: Malignant neoplasm [...] 02-04-2022 End: 02-07-2022 ambulatory ELIEL HURD [facility] Start: 02-04-2022 End: 02-06-2022 Subsequent hospital visit by physician Lesly Chatsworth [facility] MRI Comment on above: Malignant neoplasm o f right female breast, unspecified estrogen receptor status, unspecified site of breast (HCC) Start: 01-29-2022 Telephone encounter Xiomara tolliver MD Work Phone: [facility] Comment on above: Appointment Start: 01-15-2022 End: 01-15-2022 Patient encounter procedure Fahad Russell MD Work Phone: Plastic Surgery Comment on above: History of breast ca ncer (Primary Dx); Breast asymmetry following reconstructive surgery Start: 01-15-2022 Telephone encounter Xiomara tolliver MD Work Phone: [facility] Comment on above: Appointment Start: 09-15-2021 End: 09-15-2021 ambulatory Franco Stokes Other [facility] [employer] Other Start: 09-15-2021 Office outpatient ne w 30 minutes Franco Stokes [facility] Neurosurgery Start: 05-27-1998 End: 05-27-1998 Patient encounter procedure Conversion José Meyer [facility] Start: 05-27-1998 Results Only Conversion José Meyer [facility] Procedures Date Procedure Procedure Detail Performing Clinician Start: 12-15-2024 Urine culture PHYSICIAN NO FAMILY Start: 10-05-2024 Bilateral mammography PHYSICIAN NO FAMIL Y Start: 05-02-2024 Radex wrist 2 views Jacqueline Chavez BUILDING INSULATION INSTALLER Work Phone: Start: 04-17-2024 IGP,APTIMA HPV,AGE GDLN Chidi Sergey DO Work Phone: Start: 04-17-2024 Microscopic observation [Identifier] in Cervix by Cyto stain Jacqueline Chavez NP Work Phone: Start: 03-22-2024 HP CORTISOL Generic External Armando a Provider Start: [...] MD Work Phone: Start: 05-27-1998 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 Conversion José Ap Biopsy of breast Ismael NIL L Cholecystectomy Ismael NILL Decompression of med misael nerve Ismael NILL Endometrial ablation Ismael NILL Fasciotomy of foot Ismael GILES Hemorrhoidectomy Ismael [...] 04-27-2028 Screening for malignant neoplasm of cervix [facility] Start: 04-17-2027 Screening for malignant neoplasm of cervix Pap Smear [facility] Start: 04-07-2027 Screening for malignant neoplasm of cervix Pap Smear [facility] Start: 05-02-2025 End: 05-02-2025 Patient encounter procedure 05/02/2025 3:00 PM EDT Office Visit [facility] [address] [place] [id number] Chidi Rincon, DO [address] [place], [id number] Start: 04-18-2025 End: 04-18-2025 Patient encounter procedure 04/18/2025 3:00 PM EDT Office Visit [facility] OB [address] [place] [phone] Chidi Rincon, DO [address] [place], [place] [id number] [facility] Start: 12-15-2024 Bacteria identified in Urine by Culture Urine Culture [facility] Start: 12-15-2024 Urine culture [facility] Start: 09-27-2024 End: 09-27-2024 Patient encounter procedure 09/27/2024 2:30 PM EDT Office Visit [facility] [address] [place] [address] Demetra Sparrow NP [address] [place] [address] [facility] Start: 06-26-2024 End: 06-26-2024 Patient encounter procedure [facility] Comment on above: Arrived Start: 06-22-2024 End: 06-22-2024 Patient encounter procedure 06/22/2024 2:20 PM EST Office Visit [facility] [address] [place] [address] Hi Nguyễn DPM [address] [facility] [address] [place] [address] [facility] Start: 05-30-2024 End: 05-30-2024 Patient encounter procedure 05/30/2024 2:15 PM EST Office Visit [facility] [address] [facility] [address] [place] [address] Jacqueline Chavez, BUILDING INSULATION INSTALLER [address] [place] [address] [facility] Start: 05-02-2024 End: 05-02-2024 Patient encounter procedure 05/02/2024 2:30 PM EDT Office Visit [facility] [address] [facility] [address] [place] [address] Jacqueline Chavez, BUILDING INSULATION INSTALLER [address] [place] [address] Arrived [facility] Comment on above: Arrived Start: 04-17-2024 End: 04-17-2024 Patient encounter procedure [facility] Comment on above: Arrived Start: 03-22-2024 End: 03-22-2025 CBC W Auto Differential panel - Blood CBC and differential Lab Routine Encounter for wellness examination in adult Expected: 03/22/2024 (Approximate), Expires: 03/22/2025 [facility] Comment on above: Expected: 03/22/2024 (Approximate), Expi res: 03/22/2025 Start: 03-22-2024 End: 03-22-2025 Comprehensive metabolic 2000 panel - Serum or Plasma Comprehensive metabolic panel Lab Routine Encounter for wellness examination in adult Expected: 03/22/2024 (Approximate), Expires: 03/22/2025 [facility] Comment on above: Expected: 03/22/2024 (Approximate), Expi res: 03/22/2025 Start: 03-22-2024 End: 03-22-2025 Hemoglobin A1c/Hemoglobin.total in Blood Hemoglobin A1c Lab Routine Encounter for wellness examination in adult Expected: 03/22/2024 (Approximate), Expires: 03/22/2025 [facility] Comment on above: Expected: 03/22/2024 (Approximate), Expi res: 03/22/2025 Start: 03-22-2024 End: 03-22-2025 Lipid 1996 panel - Serum or Plasma Lipid panel Lab Routine Encounter for wellness examination in adult Expected: 03/22/2024 (Approximate), Expires: 03/22/2025 [facility] Comment on above: Expected: 03/22/2024 (Approximate), Expi res: 03/22/2025 Start: 03-22-2024 End: 03-22-2025 TSH W/REFLEX TO FT4 TSH W/REFLEX TO FT4 Lab Routine Encounter for wellness examination in adult Expected: 03/22/2024 (Approximate), Expires: 03/22/2025 [facility] Work Phone: Comment on above: Expected: 03/22/2024 (Approximate), Expi res: 03/22/2025 Start: 03-19-2024 Influenza vaccination Influenza Vaccine (#1) [facility] Start: 01-10-2024 MR Breast - bilateral [facility] Start: 01-10-2024 MRI of bilateral breasts with contrast MR breast BI wo/w con CAD [facility] Start: 08-25-2023 End: 08-25-2024 XR Hand - left 3 Views XR hand 3+ views left Imaging Routine Left wrist pain Pain of left thumb Expected: 08/25/2023, Expires: 08/25/2024 [facility] Comment on above: Expected: 08/25/2023, Expires: Start: 08-25-2023 End: 08-25-2024 XR Wrist - left 3 Views XR wrist 3+ views left Imaging Routine Left wrist pain Pain of left thumb Expected: 08/25/2023, Expires: 08/25/2024 [facility] Work Phone: Comment on above: Expected: 08/25/2023, Expires: Start: 04-07-2023 [facility] Start: 03-19-2023 Influenza vaccination Influenza Vaccine (#1) [facility] Start: 09-04-2022 End: 09-04-2022 [facility] Start: 09-03-2022 [facility] Start: 08-07-2022 [facility] Start: 08-05-2022 [facility] Start: 07-22-2022 Adrenocorticotropic hormone measurement [facility] Start: 07-22-2022 [facility] Start: 07-09-2022 [facility] Start: 06-19-2022 [facility] Start: 06-18-2022 [facility] Start: 06-17-2022 Adrenocorticotropic hormone measurement [facility] Start: 05-28-2022 [facility] Start: 04-22-2022 Mammography MAMMOGRAM [facility] Start: 03-20-2022 Registered Recurring Registered Recurring [facility] - O/P Start: 03-19-2022 Influenza vaccination [facility] Start: 03-04-2022 End: 03-04-2022 Patient encounter procedure 03/04/2022 Office Visit [place] [id number] [id number] [facility] Start: 03-04-2022 End: 03-04-2022 Patient encounter procedure 03/04/2022 Office Visit General Surgery Diana Murguia, DO [address] [place] [address] [facility] Start: 02-17-2022 End: 02-17-2022 Mast modf rad w/ax lymph nod w/wo pect/gonzalo min BREAST MASTECTOMY RECONSTRUCTION Malignant neoplasm of right female breast, unspecified estrogen receptor status, unspecified site of breast (HCC) 02/17/2022 10:22 AM [facility] Start: 02-17-2022 End: 02-17-2022 Mastectomy partial BREAST LUMPECTOMY PARTIAL MASTECTOMY Malignant neoplasm of right female breast, unspecified estrogen receptor status, unspecified site of breast (HCC) 02/17/2022 10:22 AM [facility] Start: 02-09-2022 End: 02-09-2022 Patient encounter procedure 02/09/2022 Office Visit General Surgery Diana Murguia DO [address] [place] [address] [facility] Start: 12-17-2021 [facility] Start: 11-26-2021 [facility] Start: 11-05-2021 [facility] Start: 10-15-2021 [facility] Start: 09-30-2021 [facility] Start: 09-24-2021 [facility] Start: 09-24-2021 [facility] Start: 09-17-2021 End: 09-17-2021 [facility] Start: 09-16-2021 End: 09-16-2021 [facility] Start: 09-11-2021 End: 09-11-2021 [facility] Start: 09-04-2021 [facility] Start: 08-27-2021 [facility] Start: 08-20-2021 [facility] Start: 08-14-2021 [facility] Start: 08-13-2021 End: 08-14-2021 [facility] Start: 07-30-2021 [facility] Start: 07-28-2021 [facility] Start: 07-21-2021 End: 07-22-2021 [facility] Start: 01-18-2021 COVID-19 VACCINE (3 - Booster for Moderna series) COVID-19 VACCINE (3 - Booster for Moderna series) [facility] Start: 2017 Lipid panel Lipids [facility] Start: 2012 Diabetes screen Diabetes screen [facility] Start: 2007 HPV TESTING HPV TESTING [facility] Start: 2007 Screening for malignant neoplasm of cervix [facility] Start: 1998 PAP TESTING PAP TESTING [facility] Start: 1998 Screening for malignant neoplasm of cervix Pap smear [facility] Start: 1996 DTaP/Tdap/Td vaccine (1 - Tdap) DTaP/Tdap/Td vaccine (1 - Tdap) [facility] Start: 1996 Urine microalbumin profile DTAP,TDAP,TD (1 - Tdap) [facility] Start: 1995 HEPATITIS C SCREENING HEPATITIS C SCREENING [facility] Start: 1995 Hepatitis C screening Hepatitis C screen [facility] Start: 1995 HIV SCREENING HIV SCREENING [facility] Start: 1992 HIV screening HIV screen [facility] Start: 1989 Adult depression screening assessment [facility] Start: 1989 Depression Screen Depression Screen [facility] Start: 1977 COVID-19 Vaccine (#1) COVID-19 Vaccine (#1) [facility] Start: 1977 Screening for malignant neoplasm of colon [facility] Adrenocorticotropic hormone measurement [facility] Work Phone: Adrenocorticotropic hormone measurement [facility] Adrenocorticotropic hormone measurement [facility] Adrenocorticotropic hormone measurement [facility] Adrenocorticotropic hormone measurement [facility] Adrenocorticotropic hormone measurement [facility] Basophils [#/volume] in Blood by Automated count [facility] Basophils/100 leukoc ytes in Blood by Automated count [facility] Comprehensive metabo lic 2000 panel - Serum or Plasma [facility] Work Phone: Comprehensive metabo lic 1999 panel - Serum or Plasma [facility] Comprehensive metabo lic 1999 panel - Serum or Plasma [facility] Comprehensive metabo lic 1999 panel - Serum or Plasma [facility] Comprehensive metabo lic 1999 panel - Serum or Plasma [facility] Comprehensive metabo lic 1999 panel - Serum or Plasma [facility] Comprehensive metabo lic 1999 panel - Serum or Plasma [facility] Comprehensive metabo lic 1999 panel - Serum or Plasma [facility] Comprehensive metabo lic 1999 panel - Serum or Plasma [facility] Comprehensive metabo lic 1999 panel - Serum or Plasma [facility] Cortisol [Mass/volum e] in Serum or Plasma [facility] Work Phone: Cortisol [Mass/volum e] in Serum or Plasma [facility] Cortisol [Mass/volum e] in Serum or Plasma [facility] Cortisol [Mass/volum e] in Serum or Plasma [facility] Cortisol [Mass/volum e] in Serum or Plasma [facility] Cortisol [Mass/volum e] in Serum or Plasma [facility] CT Head WO and W con trast IV [facility] Work Phone: CT Head WO and W con trast IV [facility] Eosinophils [#/volum e] in Blood [facility] Eosinophils/100 leuk ocytes in Blood by Automated count [facility] Erythrocyte distribu tion width [Ratio] by Automated count [facility] Erythrocytes [#/volu me] in Blood [facility] Hematocrit [Volume Fraction] of Blood [facility] Hemoglobin [Mass/vol ume] in Blood [facility] End: 02-17-2022 INITIATE PACU OXYGEN THERAPY PROTOCOL Initiate PACU Oxygen Therapy Protocol Respiratory Care Routine Continuous until discontinued starting 02/17/2022 [facility] [employer] [facility] Work Phone: Comment on above: Continuous until discontinued starting 0 02/17/2022 Leukocytes [#/volume ] corrected for nucleated erythrocytes in Blood by Automated coun [facility] Leukocytes [#/volume ] in Blood [facility] Lymphocytes [#/volum e] in Blood by Automated count [facility] Lymphocytes/100 leuk ocytes in Blood by Automated count [facility] End: 02-17-2022 WILLIE NEEDLE LOCALIZATION RIGHT WILLIE NEEDLE LOCALIZATION RIGHT Imaging Routine Abnormal mammogram Once for 1 Occurrences starting 02/17/2022 until 02/17/[address] [employer] Phone: Comment on above: Once for 1 Occurrences starting 02/18/20 until 02/17/2022 MCH [Entitic mass] b y Automated count [facility] MCHC [Mass/volume] b y Automated count [facility] MCV [Entitic volume] by Automated count [facility] MG Breast - bilatera l Diagnostic [facility] Monocytes [#/volume] in Blood by Automated count [facility] Monocytes/100 leukoc ytes in Blood by Automated count [facility] Neutrophils [#/volum e] in Blood by Automated count [facility] Neutrophils/100 leuk ocytes in Blood by Automated count [facility] Nucleated erythrocyt es [Presence] in Blood by Automated count [facility] Oxygen therapy [Mini mum Data Set] Initiate Oxygen Therapy Protocol Respiratory Care Routine Daily until discontinued starting 02/17/[address] [employer] Phone: Comment on above: Daily until discontinued starting 2021 Platelet mean volume [Entitic volume] in Blood by Automated count [facility] Platelets [#/volume] in Blood [facility] Surgical Pathology Surgical Path ology Lab Routine Malignant neoplasm of right female breast, unspecified estrogen receptor status, unspecified site of breast (HCC) Release Upon Ordering for 1 Occurrences starting 02/17/[address] [employer] Phone: Comment on above: Release Upon Ordering for 1 Occurrences starting 02/17/2022 End: 02-17-2022 SURGICAL PATHOLOGY REPORT SURGICAL PATHOLOGY REPORT Lab Routine Once for 1 Occurrences starting 02/17/2022 until 02/17/[address] [employer] Phone: Comment on above: Once for 1 Occurrences starting 02/18/20 until 02/17/2022 THIN PREP TIS PAP AN D HR HPV DNA THIN PREP TIS PAP AND HR HPV DNA Pathology and Cytology Routine Well woman exam with routine gynecological exam Ordered: 04/17/2024 [facility] Work Phone: Comment on above: Ordered: 04/17/2024 Thyrotropin [Units/v olume] in Serum or Plasma [facility] Work Phone: Thyrotropin [Units/v olume] in Serum or Plasma [facility] Thyrotropin [Units/v olume] in Serum or Plasma [facility] Thyrotropin [Units/v olume] in Serum or Plasma [facility] Thyrotropin [Units/v olume] in Serum or Plasma [facility] Thyrotropin [Units/v olume] in Serum or Plasma [facility] Thyroxine (T4) free [Mass/volume] in Serum or Plasma [facility] Work Phone: Thyroxine (T4) free [Mass/volume] in Serum or Plasma [facility] Thyroxine (T4) free [Mass/volume] in Serum or Plasma [facility] Thyroxine (T4) free [Mass/volume] in Serum or Plasma [facility] Thyroxine (T4) free [Mass/volume] in Serum or Plasma [facility] Thyroxine (T4) free [Mass/volume] in Serum or Plasma [facility] Immunizations Immunization Date Immunization Notes Care Provider [facility] 04-27-2024 influenza, injectabl e, madin kerri canine kidney, preservative free [facility] 08-21-2020 Moderna SARS-CoV-2 Vaccination Shaikh Patria POZO Work Phone: [facility] 07-25-2020 Moderna SARS-CoV-2 Vaccination Shaikh Patria POZO Work Phone: [facility] 04-26-2018 influenza, injectabl e, quadrivalent, preservative free Shaikh Patria POZO Work Phone: [facility] 04-26-2018 influenza virus vaccine, unspecified formulation Shaikh Patria POZO Work Phone: [facility] Payers Date Payer Category Payer Self-pay [id number] 2022 [employer] [facility] BCBS [id number] 2022 Unknown 2022 Unknown [id number] 2021 Unknown MMO MMO [employer] [id number] 2021-Present [phone] [address] [place] [address] PPO [id number]. [id number] 2019 Unknown [id number] 2.16.840.1.082511.19 1977 Unknown [id number] 2.16.840.1.307186.3.579.2. 177 1977 Unknown [id number] 2.16.840.1.818183.3.579.2. 177 1977 Unknown [id number] 2.16.840.1.809231.3.579.2. 175 1977 Unknown [id number] 2.16.840.1.779743.3.579.2. 175 1977 Unknown [id number] 2.16.840.1.605090.3.579.2. 593 1977 Unknown [id number] 2.16.840.1.478013.3.579.2. 593 1977 Unknown [id number] 2.16.840.1.936390.3.579.2. 593 1977 Unknown [id number] 2.16.840.1.816090.3.579.2. 593 1977 Unknown [id number] 2.16.840.1.188711.3.579.2. 593 1977 Unknown [id number] 2.16.840.1.058548.3.579.2. 593 1977 Unknown [id number] 2.16.840.1.069285.3.579.2. 593 1977 Unknown [id number] 2.16.840.1.806883.3.579.2. 593 1977 Unknown [id number] 2.16.840.1.841610.3.579.2. 196 1977 Unknown [id number] 2.16.840.1.438544.3.579.2. 196 1977 Unknown [id number] 2.16.840.1.024430.3.579.2. 727 1977 Unknown [id number] 2.16.840.1.215514.3.579.2. 727 1977 Unknown [id number] 2.16.840.1.569607.3.579.2. 1259 1977 Unknown [id number] 2.16.840.1.872721.3.579.2. 1259 1977 Unknown [id number] 2.16.840.1.238651.3.579.2. 1259 1977 Unknown [id number] 2.16.840.1.897181.3.579.2. 1258 1977 Unknown [id number] 2.16.840.1.029823.3.579.2. 1258 1977 Unknown [id number] 2.16.840.1.918519.3.579.2. 1258 1977 Unknown [id number] 2.16.840.1.230709.3.579.2. 1258 1977 Unknown [id number] 2.16.840.1.779294.3.579.2. 1258 1977 Unknown [id number] 2.16.840.1.826785.3.579.2. 1258 1977 Unknown [id number] 2.16.840.1.419731.3.579.2. 1258 1977 Unknown [id number] 2.16.840.1.668590.3.579.2. 1258 1977 Unknown [id number] 2.16.840.1.222669.3.579.2. 1258 1977 Unknown [id number] 2.16.840.1.356218.3.579.2. 1258 1977 Unknown [id number] 2.16.840.1.479906.3.579.2. 9 Unknown [id number] HCAP/HFA/FAP Active [id number] Unknown [id number] 2.16.840.1.159725.3.579.2. 531 Unknown [id number] 2.16840.1.933925.3.579.2. 531 Unknown [id number] 2.16840.1.050616.3.579.2. 531 Social History Date Type Detail Facility Tobacco smoking status [facility] Unknown if ever smoked [facility] Start: 1975 Sex Assigned At Not on file [facility] Start: 04-12-2023 End: 01-13-2024 Sex Assigned At [facility] Start: 01-15-2022 End: 12-15-2024 Tobacco smoking status NHIS Ex-smoker [facility] Start: 01-15-2022 End: 11-01-2023 Tobacco use and exposure Smokeless tobacco non-user [facility] Start: 1975 Sex Assigned At Female [facility] Start: 01-13-2022 End: 02-17-2022 Exposure to SARS-CoV-2 (event) Not sure [facility] History of tobacco use Current smoker [employer] Phone: Start: 02-04-2022 Tobacco use and exposure Former smokeless tobacco user [employer] Phone: Start: 02-17-2022 End: 10-19-2024 Alcohol intake Lifetime non-drinker (finding) [employer] Phone: Start: 02-01-2023 End: 11-01-2023 Tobacco smoking status INIS Never smoked tobacco [facility] Start: 04-12-2023 End: 01-13-2024 History of Social function [facility] Start: 03-01-2023 Alcohol Comment caffeine: 1-2 cups per day coffee [facility] Tobacco smoking status Never [facility] Start: 10-06-2024 End: 12-16-2024 Sex Female (finding) [facility] NEGATED: Highlighted rowStart: NINF History of tobacco use Passive smoker [facility] Functional Status Date Assessment Result Facility 11-03-2023 [facility] Status N[facility]A [facility] 07-08-2021 to 12-15-2024 Note Date & Type Note Facility 12-15-2024 Evaluation note Diagnosis Onset Date Resolution Dysuria noneactive December 15, 2024 10:38am [facility] Work Phone: [phone] 607-219304-09-2025 History of Present illness Narrative* Cielo Jean LPN - 10/25/2024 2:20 PM EDT Reason for Appointment: Patient ID: Tenisha Hancock [...] BY MOUTH EVERY DAY IN THE MORNING ONEMPTY STOMACH pantoprazole (PROTONIX) 40 mg, Oral, Daily before breakfast, Do not crush, chew, or split. rosuvastatin (CRESTOR) 20 mg, Oral, Daily ALLERGIES No Known Allergies PROBLEMS Active Ambulatory Problems Diagnosis Date Noted Arthritis of left hip 11/30/2022 Breast cancer ([facility]) 11/30/2022 Drug-induced adrenocortical insufficiency ([facility]) 11/30/2022 Malignant neoplasm of central portion of right female breast ([facility]) 11/30/2022 Migraine 04/20/2011 Obesity (BMI 30-39.9) 11/30/2022 Right carpal tunnel syndrome 11/30/2022 Arthritis 11/30/2022 Hypercholesteremia ([facility]/HCC) 11/30/2022 Carcinoma of lower outer quadrant of right breast ([facility]) 06/05/2021 Status post breast reconstruction 02/17/2022 Triple negative malignant neoplasm of breast ([facility]) 06/05/2021 Adjustment and management of vascular access [...] episode of recurrent major depressive disorder (CMS/HCC) 11/01/2023 Other hyperlipidemia 11/01/2023 History of breast [...] Ambulatory Problems Past Medical History: Diagnosis Date Columbia's disease (CMS/HCC) Breast cancer screening by mammogram 05/26/2021 Breast lump Cancer (CMS/HCC) Carpal tunnel syndrome Chicken pox Genetic testing negative History of right breast cancer Hypercholesterolemia (CMS/HCC) Hypertension (CMS/HCC) Hypothyroidism (CMS/HCC) Migraine headache (CMS/HCC) Negative genetic testing for ARVC Pap smear for cervical cancer screening 04/07/2022 HISTORY PAST MEDICAL HISTORY SOCIAL HISTORY Past Medical History: Diagnosis Date Columbia's disease (CMS/HCC) Arthritis Breast cancer screening by mammogram 05/26/2021 RIGHT BX DUE TO MASS. CALCIFICATION SLIGHTNESS Breast lump Cancer (CMS/HCC) right breast Carpal tunnel syndrome Chicken pox Drug-induced adrenocortical insufficiency (CMS/HCC) Family history of cancer Genetic testing negative History of breast cancer History of breast problem Right Breast ER/NC/Her3 neg History of right breast cancer Hypercholesterolemia [...] RELEASE Right 03/11/2015 CHOLECYSTECTOMY 2008 ENDOMETRIAL ABLATION 1998 FOOT SURGERY 2013 HEMORRHOID SURGERY 2016 IR CVC PORT PLACEMENT [...] nursing note reviewed. Exam conducted with a fish bin tender present. Vitals: Estimated body mass index is [...] of: Chidi Rincon DO documented in this encounterBarnes-Jewish [id number] History of Present illness Narrative* Demetra Sparrow NP - 06/26/2024 4:29 PM ESTAssociated Problem(s): Anxiety and depression (CMS/HCC) Reports she [...] and depression and to continue with therapy. * Demetra Sparrow NP - 06/26/2024 2:46 PM ESTAssociated Problem(s): Class 1 obesity due to excess calories without serious comorbidity with bodymass index (BMI) of 30.0 to 30.9 in [...] well as surgical options for weight loss. * Demetra Sparrow NP - 06/26/2024 2:30 PM EST Images from the original note were not [...] Neurological: Negative for dizziness, tremors, syncope, weakness, light- headedness and headaches. Psychiatric/Behavioral: Negative for decreased concentration and suicidal ideas. The patient is notnervous/anxious. Hematological: Does not bruise/bleed easily. Endocrine: Negative [...] 50 MCG/ACT nasal spray documented in this encounterBarnes-Jewish [id number] History of Present illness Narrative* Hi Nguyễn, RIGO - 06/01/2024 10:20 AM EST Patient: Tenisha Hancock : 1975 PCP: Shaikh [...] Medical History: Past Medical History: Diagnosis Date Columbia's disease (CMS/HCC) Arthritis Breast cancer screening by mammogram 05/26/2021 RIGHT BX DUE TO MASS. CALCIFICATION SLIGHTNESS Breast lump Cancer (CMS/HCC) right breast Chicken pox Family history of cancer Genetic testing negative History of breast cancer History of breast problem Right Breast ER/NC/Her3 neg History of right breast cancer Hypercholesterolemia [...] mg) by mouth in the morning. 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 Hi Nguyễn DPM documented in this encounterBarnes-Jewish [id number] History of Present illness Narrative* Jacqueline Chavez, SAVITA - 05/02/2024 2:30 PM EDT Images from the original note were [...] BY MOUTH EVERY DAY IN THE MORNING ONEMPTY STOMACH Natural Vitamin D-3 5,000 Units, Oral, [...] acute findings of left wrist. Jacqueline Chavez BLOW MOLD TECHNICIAN-PICK PULLING MACHINE TENDER ASSESSMENT: ICD-10-CM 1. Left wrist pain M25.532 [...] develop for requiring urgent evaluation. Jacqueline Chavez BLOW MOLD TECHNICIAN-PICK PULLING MACHINE TENDER documented in this encounterBarnes-Jewish [id number] History of Present illness Narrative* Summer [place], GLASSWARE ENGRAVER - 04/17/2024 3:00 PM EDT Reason for Appointment: Patient ID: Tenisha Hancock [...] Arthritis of left hip 11/30/2022 Breast cancer ([facility]/HCC) 11/30/2022 Drug-induced adrenocortical insufficiency ([facility]/HCC) 11/30/2022 Malignant neoplasm of central portion of right female breast ([facility]/HCC) 11/30/2022 Migraine ([facility]/HCC) 04/20/2011 Obesity (BMI 30-39.9) 11/30/2022 Right carpal [...] cancer History of breast problem Right Breast ER/NC/Her3 neg History of right breast cancer Hypercholesterolemia [...] RELEASE Right 03/11/2015 CHOLECYSTECTOMY 2008 ENDOMETRIAL ABLATION 1998 FOOT SURGERY 2013 HEMORRHOID SURGERY 2016 IR CVC PORT PLACEMENT [...] of: Chidi Rincon DO documented in this encounterBarnes-Jewish [id number] Note Attestation signed by Awa Maradiaga at [...] which she received immunotherapy with Keytruda from [id number]. She developed severe fatigue and weakness after [...] Behavior: Behavior normal. LABS: Recent Data from [facility] Healthcare Related to ALL THYROID STIM HORMONE [...] is not able t (more content not included)...[facility]04-17-2024 NoteChief Complaint consultation for colonoscopy and lipoma HPI [...] swallowing difficulties, no hearing loss, no ear infection(s),no nose bleeds. Cardiovascular: normal blood pressure, no [...] mild tenderness, epigastrium no masses, no palpable hernias,diastasis recti no, no hepatosplenomegaly; normal bs Lymphatic: [...] Tubal ligation. Medications buPR (more content not included)...[facility] CenterComment on above: Result Comment: Electronically Signed By: ANTONELLA POZO, Ismael Christianson\radha\Date and Time Signed: 11/03/23 16:46 [id number] History of Present illness Narrative* Shaikh Patria MD - 08/25/2023 4:51 PM EST Xr wrist documented in this encounterBarnes-Jewish [id number] Progress note Author Kallie Chang [facility] September 18, 2022 10:28pm Note Date/Time September 18, 2022 1:44 pm [facility] [place] [address] Hem/Onc Follow Up Note - OP Signed Patient: Tenisha Hancock MR#: [id number] : 1975 Acct:[id number] Age/Sex: 47 / F Type: REG RCR [...] hydrocortisone 20mg am/10mg pm. Will f/u with [facility] [facility] next week to review symptoms. We may [...] on 02/17/2022 [address] Drs. Saunders/Drew ([facility]). Her pathology returned with no [...] Simons and has an appointment scheduled at [facility] to discuss josep flap surgery as [...] overall good. BRCA testing was done through [facility] and is negative. She does have left [...] I willdefer to his impression and recommendations. 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 This is a 46-year-old female who works at [employer] with triple negative breast cancer, referred for neoadjuvant chemotherapy. Mammogramon on April 22, 2021 showed 3 new focal masses with the largest measuring 2 cm in size in the right breast. 2 additional lesions measuring 1 cm and a second 0.9 cm were also seen. The patient was referred for biopsy. Needle biopsy showed triple negative breast cancer, ER negative, NC negative, and H ER 2 -. The patient was referred to Dr. Ismael Red for Butbew-o-Vduk which she has had placed. She has seen my colleague Dr. Smith at the [facility] recommended neoadjuvant chemotherapy and immunotherapy. Because of insurance reasons, she will be getting her treatment here at [facility]. She has had echocardiography as well. According the patient an MRI was obtained prior to neoadjuvant therapy while she was at [facility] we are requesting this prior study. [...] showed triple negative breast cancer, ER negative, NC negative, and HER 2 -. The patient was referred to Dr. Ismael Red for Ygsart-q-Crzr which she has had placed. She has seen my colleague Dr. Smith at the [facility] recommended neoadjuvant chemotherapy and immunotherapy. Because of insurance reasons, she will be getting her treatment here at [facility]. She has had echocardiography as well. [...] 9 cycles --Original breast MRI obtained from [facility] from May 2021, follow-up breast MRI [...] late December. 2. 02/17/2022 at [facility], Drs. Saunders/Shantal: needle localized lumpectomy [...] Allergies Allergy (Verified 09/18/22 13:38) Home Medications dmvqwjq-dtebdyssvnzdc-keejajbd 250 mg-250 mg-65 mg tablet (Excedrin Migraine) [...] % (Auto) 91.1, Lymph % (Auto) 6.2, [place] % (Auto) 2.3, Eos % (Auto) 0.1, Baso % (Auto) 0.3, Nucleat RBC Rel Count 0.1, Neut # (Auto) 10.4 H, Lymph # (Auto) 0.7 L, [place] # (Auto) 0.3, Eos # (Auto) 0.0, [...] [facility] in [place], [place]; however, due to insurance reasons the patient transferredcare to [email or web address] at [facility]. In reviewing notes from her prior physician [...] do not have records from this from [facility] in [place]. I am requesting this to evaluate her [...] testing returned negative from prior physicians at [facility]. BRCA testing negative Follow-up September is [...] We will review her prior MRI from [facility] in May 2021 in comparison to [...] other significant toxicities. MRI was reviewed and [facility] tumor board with Dr. Reza and [...] small focus of residual DCIS, ER 5%, NC 0%. Completed adjuvant radiation then we resumed [...] with sentinel lymph node biopsy 02/17/2022 in [place]. Adjuvant radiation completed 05/04-06/16/2022. Total of 30 [...] for coordination of care (as documented) and tdbw-kf-jzmi counseling of patient and/or family. Dictated By: Kallie Chang MD DD/ [id number] Signed By: <Electronically signed by MD Kallie Chang> 09/18/22 [address] [facility] Work Phone: 1([phone]) 166-469202-18-2023 Progress note Author Kallie Bernardo [facility] September 04, 2022 10:35pm Note Date/Time September 04, 2022 1:11pm [facility] at [address] [address] Hem/Onc Follow Up Note - OP Signed Patient: Tenisha Hancock MR#: [id number] : 1975 Acct:[id number] Age/Sex: 47 / F Type: REG RCR [...] hydrocortisone 20mg am/10mg pm. Will f/u with [facility] [facility] next week to review symptoms. We may [...] on 02/17/[address] Drs. Saunders/Drew ([facility]). Her pathology returned with no [...] Simons and has an appointment scheduled at [facility] to discuss josep flap surgery as [...] overall good. BRCA testing was done through [facility] and is negative. She does have left [...] I willdefer to his impression and recommendations. 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 This is a 46-year-old female who works at [employer] with triple negative breast cancer, referred for neoadjuvant chemotherapy. Mammogramon on April 22, 2021 showed 3 new focal masses with the largest measuring 2 cm in size in the right breast. 2 additional lesions measuring 1 cm and a second 0.9 cm were also seen. The patient was referred for biopsy. Needle biopsy showed triple negative breast cancer, ER negative, NC negative, and H ER 2 -. The patient was referred to Dr. Ismael Red for Fejnce-b-Kfvh which she has had placed. She has seen my colleague Dr. Smith at the [facility] recommended neoadjuvant chemotherapy and immunotherapy. Because of insurance reasons, she will be getting her treatment here at [facility]. She has had echocardiography as well. According the patient an MRI was obtained prior to neoadjuvant therapy while she was at [facility] we are requesting this prior study. [...] showed triple negative breast cancer, ER negative, NC negative, and HER 2 -. The patient was referred to Dr. Ismael Red for Fersbc-y-Hjyl which she has had placed. She has seen my colleague Dr. Smith at the [facility] recommended neoadjuvant chemotherapy and immunotherapy. Because of insurance reasons, she will be getting her treatment here at [facility]. She has had echocardiography as well. [...] 9 cycles --Original breast MRI obtained from [facility] from May 2021, follow-up breast MRI [...] late December. 2. 02/17/2022 at [facility], Drs. Saunders/Shantal: needle localized lumpectomy with oncoplastic reconstruction of right breast with right mastopexy 3. Adjuvant radiation: Right SCV axilla 5000 cGy 10/17-06/07/22 25 fractions over 34 elapsed days. Right [...] Allergies Allergy (Verified 09/04/22 13:03) Home Medications zupjrii-iezgwknvznkfd-hrycwewm 250 mg-250 mg-65 mg tablet (Excedrin Migraine) [...] [facility] in [place], [place]; however, due to insurance reasons the patient transferredcare to [email or web address] at [facility]. In reviewing notes from her prior physician [...] do not have records from this from [facility] in [place]. I am requesting this to evaluate her [...] testing returned negative from prior physicians at [facility]. BRCA testing negative Follow-up September is [...] We will review her prior MRI from [facility] in May 2021 in comparison to [...] other significant toxicities. MRI was reviewed and [facility] tumor board with Dr. Reza and [...] small focus of residual DCIS, ER 5%, NC 0%. Completed adjuvant radiation then we resumed [...] for coordination of care (as documented) and rcip-kz-iwne counseling of patient and/or family. Dictated By: Kallie Chang MD DD/ 0823 Signed By: <Electronically signed by MD Kallie Chang> 09/04/22 39[address] [facility] Work Phone: 1(177) 154-856402-03-2023 Progress note Author Heber Arriaga [facility] August 21, 2022 1:13pm Note Date/Time August 14, 2022 2 :16pm [facility] [place] [id number] Hem/Onc Follow Up Note - OP Signed Patient: Tenisha Hancock MR#: [id number] : 1975 Acct:[id number] Age/Sex: 47 / F Type: REG RCR [...] hydrocortisone 20mg am/10mg pm. Will f/u with [facility] next week to review symptoms. We may [...] on 02/17/[address] Drs[address] Saunders/Drew ([facility]). Her pathology returned with no [...] Simons and has an appointment scheduled at [facility] to discuss josep flap surgery as [...] overall good. BRCA testing was done through [facility] and is negative. She does have left [...] I willdefer to his impression and recommendations. 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 This is a 46-year-old female who works at [employer] with triple negative breast cancer, referred for neoadjuvant chemotherapy. Mammogramon on April 22, 2021 showed 3 new focal masses with the largest measuring 2 cm in size in the right breast. 2 additional lesions measuring 1 cm and a second 0.9 cm were also seen. The patient was referred for biopsy. Needle biopsy showed triple negative breast cancer, ER negative, NC negative, and H ER 2 -. The patient was referred to Dr. Ismael Red for Qgoeef-g-Cefx which she has had placed. She has seen my colleague Dr. Smith at the [facility] recommended neoadjuvant chemotherapy and immunotherapy. Because of insurance reasons, she will be getting her treatment here at [facility]. She has had echocardiography as well. According the patient an MRI was obtained prior to neoadjuvant therapy while she was at [facility] we are requesting this prior study. [...] showed triple negative breast cancer, ER negative, NC negative, and HER 2 -. The patient was referred to Dr. Ismael Red for Iapozu-v-Ucgs which she has had placed. She [facility]. Because of insurance reasons, she will be getting her treatment here at [facility]. She has had echocardiography as well. [...] 9 cycles --Original breast MRI obtained from [facility] from May 2021, follow-up breast MRI [...] late December. 2. 02/17/2022 at [facility], Drs. Saunders/Shantal: needle localized lumpectomy [...] Allergies Allergy (Verified 08/06/22 13:31) Home Medications hshtcnj-muioszxvjurvn-etimnfns 250 mg-250 mg-65 mg tablet (Excedrin Migraine) [...] [facility] in [place], [place]; however, due to insurance reasons the patient transferredcare to [facility]. In reviewing notes from her [...] do not have records from this from [facility] in [place]. I am requesting this to evaluate her [...] testing returned negative from prior physicians at [facility]. BRCA testing negative Follow-up September is cycle 4 -day 1. Tolerance is overall good-- Proceed with cycle 4 with breast MRI prior to 2-week follow-up in comparison to baseline MRI. This will be useful in surgical planning. I am discussing her case with tertiary breast oncology Dr. iVnh Bucio to see if he concurs withthis [...] We will review her prior MRI from [facility] in May 2021 in comparison to [...] other significant toxicities. MRI was reviewed and [facility] tumor board with Dr. Reza and [...] small focus of residual DCIS, ER 5%, NC 0%. Completed adjuvant radiation then we resumed [...] for coordination of care (as documented) and fulx-tb-yhpr counseling of patient and/or family. Dictated By: Heber Arriaga APRN DD/ 1416 Signed By: <Electronically signed by PETE Arriaga> 08/21/22 [address] [facility] Work Phone: 1([phone]) 261-952301-20-2023 Progress note Author Kallie Chang [facility] August 07, 2022 1:00pm Note Date/Time August 06, 2022 1 :39pm [facility] [place] [address] Hem/Onc Follow Up Note - OP Signed Patient: Tenisha Hancock MR#: [id number] : 1975 Acct:[id number] Age/Sex: 47 / F Type: REG RCR [...] hydrocortisone 20mg am/10mg pm. Will f/u with [facility] [facility] next week to review symptoms. We may [...] on 02/17/[address] Drs[address] Saunders/Drew ([facility]). Her pathology returned with no [...] Simons and has an appointment scheduled at [facility] to discuss josep flap surgery as [...] overall good. BRCA testing was done through [facility] and is negative. She does have left [...] I willdefer to his impression and recommendations. 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 This is a 46-year-old female who works at [employer] with triple negative breast cancer, referred for neoadjuvant chemotherapy. Mammogramon on April 22, 2021 showed 3 new focal masses with the largest measuring 2 cm in size in the right breast. 2 additional lesions measuring 1 cm and a second 0.9 cm were also seen. The patient was referred for biopsy. Needle biopsy showed triple negative breast cancer, ER negative, NC negative, and H ER 2 -. The patient was referred to Dr. Ismael Red for Wvjlsa-m-Egur which she has had placed. She has seen my colleague Dr. Smith at the [facility] recommended neoadjuvant chemotherapy and immunotherapy. Because of insurance reasons, she will be getting her treatment here at [facility]. She has had echocardiography as well. According the patient an MRI was obtained prior to neoadjuvant therapy while she was at [facility] we are requesting this prior study. [...] showed triple negative breast cancer, ER negative, NC negative, and HER 2 -. The patient was referred to Dr. Ismael Red for Zkdnzg-c-Vahr which she has had placed. She has seen my colleague Dr. Smith at the [facility] recommended neoadjuvant chemotherapy and immunotherapy. Because of insurance reasons, she will be getting her treatment here at [facility]. She has had echocardiography as well. [...] 9 cycles --Original breast MRI obtained from [facility] from May 2021, follow-up breast MRI [...] late December. 2. 02/17/2022 at [facility], Drs. Saunders/Shantal: needle localized lumpectomy [...] Negative for environmental allergies and food allergies. [facility] - History Attestation statement: The following information [...] Allergies Allergy (Verified 08/06/22 13:31) Home Medications sokwadj-ajqsuilhfhtxg-hisuwgxs 250 mg-250 mg-65 mg tablet (Excedrin Migraine) [...] % (Auto) 92.9, Lymph % (Auto) 5.5, [place] % (Auto) 1.4, Eos % (Auto) 0.0, Baso % (Auto) 0.2, Nucleat RBC Rel Count 0.0, Neut # (Auto) 8.7 H, Lymph # (Auto) 0.5 L, [place] # (Auto) 0.1, Eos # (Auto) 0.0, [...] [facility] [place], [place]; however, due to insurance reasons the patient transferredcare to [facility]. In reviewing notes from her [...] do not have records from this from [facility] in [place]. I am requesting this to evaluate her [...] testing returned negative from prior physicians at [facility]. BRCA testing negative Follow-up September is [...] We will review her prior MRI from [facility] in May 2021 in comparison to [...] other significant toxicities. MRI was reviewed and [facility] tumor board with Dr. Reza and [...] immunotherapy labs adjuvant cycle 2-day 1 [facility]. High complexity visit [...] small focus of residual DCIS, ER 5%, NC 0%. Completed adjuvant radiation then we resumed [...] with sentinel lymph node biopsy 02/17/2022 in [place]. Adjuvant radiation completed 05/04-06/16/2022. Total of 30 [...] for coordination of care (as documented) and aqfu-tq-uacz counseling of patient and/or family. Dictated By: Kallie Chang MD DD/ 1338 Signed By: <Electronically signed by MD Kallie Chang> 08/07/22 [address] [facility] Work Phone: 1(372) 989-404001-06-2023 Progress note Author Kallie Chang [facility] July 24, 2022 11:26am Note Date/Time July 23, 2022 1: 43pm [facility] [place] [address] Hem/Onc Follow Up Note - OP Signed Patient: Tenisha Hancock MR#: [id number] : 1975 Acct:[id number] Age/Sex: 47 / F Type: REG RCR [...] hydrocortisone 20mg am/10mg pm. Will f/u with [facility] [facility] next week to review symptoms. We may [...] on 02/17/[address] Drs[address] Saunders/Drew ([facility]). Her pathology returned with no [...] Simons and has an appointment scheduled at [facility] to discuss josep flap surgery as [...] overall good. BRCA testing was done through [facility] and is negative. She does have left [...] I willdefer to his impression and recommendations. 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 This is a 46-year-old female who works at [employer] with triple negative breast cancer, referred for neoadjuvant chemotherapy. Mammogram onon April 22, 2021 showed 3 new focal masses with the largest measuring 2 cm in size in the right breast. 2 additional lesions measuring 1 cm and a second 0.9 cm were also seen. The patient was referred for biopsy. Needle biopsy showed triple negative breast cancer, ER negative, NC negative, and H ER 2 -. The patient was referred to Dr. Ismael Red for Lgcgog-b-Sklu which she has had placed. She has [facility] and immunotherapy. Because of insurance reasons, she will be getting her treatment here at [facility]. She has had echocardiography as well. According the patient an MRI was obtained prior to neoadjuvant therapy while shewas at [facility] we are requesting this prior study. [...] showed triple negative breast cancer, ER negative, NC negative, and HER 2 -. The patient was referred to Dr. Ismael Red for Kszrmh-h-Dzxm which she has had placed. She has [facility] my [facility] and immunotherapy. Because of insurance reasons, she will be getting her treatment here at [facility]. She has had echocardiography as well. [...] 9 cycles --Original breast MRI obtained from [facility] from May 2021, follow-up breast MRI [...] late December. 2. 02/17/2022 at [facility], Drs. Saunders/Drew: needle localized lumpectomy [...] Allergies Allergy (Verified 07/23/22 13:29) Home Medications czztubk-whoxldejbixmb-muzruick 250 mg-250 mg-65 mg tablet (Excedrin Migraine) [...] % (Auto) 71.8, Lymph % (Auto) 19.9, [place] % (Auto) 6.3, Eos % (Auto) 1.3, Baso % (Auto) 0.7, Nucleat RBC Rel Count 0.2, Neut # (Auto) 4.6, Lymph # (Auto) 1.3, [place] # (Auto) 0.4, Eos # (Auto) 0.1, [...] C4-C7. Impression dictated by: Jamari Guzman Jr., D.OSavanah06/19/2022 7:04 PM Assessment and Plan - TNM [...] see in consultation by Dr. Smith at [facility] in [place], [place]; however, due to insurance reasons the patient transferredcare to [email or web address] at [facility]. In reviewing notes from her prior physician [...] do not have records from this from [facility] in [place]. I am requesting this to evaluate her [...] testing returned negative from prior physicians at [facility]. BRCA testing negative Follow-up September is [...] We will review her prior MRI from [facility] in May 2021 in comparison to [...] other significant toxicities. MRI was reviewed and [facility] tumor board with Dr. Reza and [...] with sentinel lymph node biopsy 02/17/2022 in [place]. Adjuvant radiation completed 05/04-06/16/2022. Total of 30 [...] for coordination of care (as documented) and oepr-sm-votj counseling of patient and/or family. Dictated By: Kallie Chang MD DD/ 1342 Signed By: <Electronically signed by MD Kallie Chang> 07/24/22 [address] [facility] Work Phone: 1(651) 892-474012-28-2022 Progress note Author Stacie Thomas [facility] July 15, 2022 1:57pm Note Date/Time July 15, 2022 9:31am [facility] [place] [address] Rad Onc Follow Up Note - OP Signed Patient: Tenisha Hancock MR#: [id number] : 1975 Acct:[id number] Age/Sex: 47 / F Type: REG RCR [...] 0 out of 5 lymph nodes involved. [id number]. 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 Per the available notes her BRCA testing was done through [facility] and was negative. Also appears the right breast mass was palpable in the lower mid quadrant of the breast. [facility]. Due to insurance reasons she received her systemic therapy here at [facility]. PET/CT was denied by insurance. CT scan of the chest abdomen pelvis on July 16, 2021 was negative for metastatic disease. Her clinical stage at presentation was cT2N0. June 11, 2021 patient did undergo an MRI in [place]. I do not have that report available [...] 0 out of 5 lymph nodes negative. [id number]. Pathology was negative for LVSI. Of note [...] signed by Stacie Thomas MD> 07/15/22 1357 [facility] Work Phone: 1([phone] 706-508512-02-2022 Progress note Author [facility] June 19, 2022 9:06am Note Date/Time June 18, 2022 1 0:26am [facility] [place] [address] Hem/Onc Follow Up Note - OP Signed Patient: Tenisha Hancock MR#: [id number] : 1975 Acct:[id number] Age/Sex: 47 / F Type: REG RCR [...] hydrocortisone 20mg am/10mg pm. Will f/u with BUILDING INSULATION INSTALLER next week to review symptoms. We may [...] on 02/17/2022 by Drs. Saunders/Drew ([facility]). Her pathology returned with no [...] Simons and has an appointment scheduled at [facility] to discuss josep flap surgery as [...] overall good. BRCA testing was done through [facility] and is negative. She does have left [...] I willdefer to his impression and recommendations. 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 This is a 46-year-old female who works at [employer] with triple negative breast cancer, referred for neoadjuvant chemotherapy. Mammogramon on April 22, 2021 showed 3 new focal masses with the largest measuring 2 cm in size in the right breast. 2 additional lesions measuring 1 cm and a second 0.9 cm were also seen. The patient was referred for biopsy. Needle biopsy showed triple negative breast cancer, ER negative, NC negative, and H ER 2 -. The patient was referred to Dr. Ismael Red for Ijgtje-h-Dzks which she has had placed. She has seen my colleague Dr. Smith at the [facility] recommended neoadjuvant chemotherapy and immunotherapy. Because of insurance reasons, she will be getting her treatment here at [facility]. She has had echocardiography as well. According the patient an MRI was obtained prior to neoadjuvant therapy while she was at [facility] we are requesting this prior study. [...] showed triple negative breast cancer, ER negative, NC negative, and HER 2 -. The patient was referred to Dr. Ismael Red for Ezgqkr-j-Kgxm which she has had placed. She has seen my colleague Dr. Smith at the [facility] recommended neoadjuvant chemotherapy and immunotherapy. Because of insurance reasons, she will be getting her treatment here at [facility]. She has had echocardiography as well. [...] 9 cycles --Original breast MRI obtained from [facility] from May 2021, follow-up breast MRI [...] late December. 2. 02/17/2022 at [facility], Drs. Saunders/Djohan: needle localized lumpectomy [...] Allergies Allergy (Verified 03/12/22 08:56) Home Medications exgkqui-syzblsmpytitd-vmxnmmsa 250 mg-250 mg-65 mg tablet (Excedrin Migraine) [...] % (Auto) 69.1, Lymph % (Auto) 17.2, [place] % (Auto) 10.3, Eos % (Auto) 2.7, Baso % (Auto) 0.7, Nucleat RBC Rel Count 0.0, Neut # (Auto) 3.5, Lymph # (Auto) 0.9 L, [place] # (Auto) 0.5, Eos # (Auto) 0.1, [...] [facility] in [place], [place]; however, due to insurance reasons the patient transferredcare to [facility]. In reviewing notes from her [...] do not have records from this from [facility] in [place]. I am requesting this to evaluate her [...] testing returned negative from prior physicians at [facility]. BRCA testing negative Follow-up September is [...] We will review her prior MRI from [facility] in May 2021 in comparison to [...] reviewed and [facility] tumor board with Dr. Reza and he [...] with sentinel lymph node biopsy 02/17/2022 in [place]. Adjuvant radiation completed 05/04-06/16/2022. Total of 30 [...] giving hydrocortisone for symptom management. Reassess by BUILDING INSULATION INSTALLER for tolerance of therapy in 1 week. Good pathologicresponse with DCIS only on pathology Coordination of Care & Counseling Time: Greater than 50% of time spent with patient was for coordination of care (as documented) and dksu-xb-vysk counseling of patient and/or family. Dictated By: Kallie Chang MD DD/ [id number] Signed By: <Electronically signed by MD Kallie Chang> 06/19/22 09 [facility] Work Phone: 1([phone]) 244-812109-30-2022 Progress note Author Stacie Thomas [facility] April 17, 2022 9:21am Note Date/Time April 16, 2022 9:02am [facility] [place] [address] Rad Onc Follow Up Note - OP Signed with Addenda Patient: Tenisha Hancock MR#: [id number] : 1975 Acct:[id number] Age/Sex: 47 / F Type: REG RCR [...] 0 out of 5 lymph nodes involved. mJkzM2Dx. 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 Per the available notes her BRCA testing was done through [facility] and was negative. Also appears the right breast mass was palpable in the lower mid quadrant of the breast. [facility]. Due to insurance reasons she received her systemic therapy here at [facility]. PET/CT was denied by insurance. CT scan of the chest abdomen pelvis on July 16, 2021 was negative for metastatic disease. Her clinical stage at presentation was cT2N0. June 11, 2021 patient did undergo an MRI in [place]. I do not have that report available [...] 0 out of 5 lymph nodes negative. auZzlW3Ew. Pathology was negative for LVSI. Of note [...] signed by Stacie Thomas MD> 04/16/22 1256 [facility] Work Phone: [phone]) 662-303009-13-2022 NotePROCEDURE: XR GI UPPER AIR KUB DUAL [...] Electronically authenticated by: BARBER VASQUEZ Date: 2022 14:36[facility]09-13-2022 NotePROCEDURE: XR GI UPPER AIR KUB DUAL [...] Electronically authenticated by: BARBER VASQUEZ Date: 2022 14:36[facility]09-01-2022 Consult note Author Stacie Thomas [facility] March 19, 2022 10:56am Note Date/Time March 18, 2022 3: [facility] [address] [address] Rad Onc Consult Note - OP Signed Patient: Tenisha Hancock MR#: [id number] : 1975 Acct:[id number] Age/Sex: 46 / F Type: REG RCR [...] 0 out of 5 lymph nodes involved. nUjoL3Bi. 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 Per the available notes her BRCA testing was done through [facility] and was negative. Also appears the right breast mass was palpable in the lower mid quadrant of the breast. [facility] and immunotherapy. Due to insurance reasons she received her systemic therapy here at [facility]. PET/CT was denied by insurance. CT scan of the chest abdomen pelvis on July 16, 2021 was negative for metastatic disease. Her clinical stage at presentation was cT2N0. June 11, 2021 patient did undergo an MRI in [place]. I do not have that report available [...] 0 out of 5 lymph nodes negative. gxZpzY2Kt. Pathology was negative for LVSI. Of note [...] work. Has no other breast related complaints. [facility] - Medical History Medical History: Medical History [...] Allergies Allergy (Verified 03/12/22 08:56) Home Medications haixqdx-txadiaetfzovx-ikymrcnm 250 mg-250 mg-65 mg tablet (Excedrin Migraine) [...] signed by Stacie Thomas MD> 03/19/22 1055 [facility] Work Phone: [phone] 126-602708-31-2022 Consult note Author Stacie Thomas [facility] March 19, 2022 10:56am Note Date/Time March 18, 2022 3: [address] [place] [address] [place] [address] Rad Onc Consult Note - OP Signed Patient: Tenisha Hancock MR#: [id number] : 1975 Acct:[id number] Age/Sex: 46 / F Type: REG RCR [...] 0 out of 5 lymph nodes involved. dNisT7Nc. 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 Per the available notes her BRCA testing was done through [facility] and was negative. Also appears the right breast mass was palpable in the lower mid quadrant of the breast. [facility] and [facility]. Due to insurance reasons she received her systemic therapy here at [facility]. PET/CT was denied by insurance. CT scan of the chest abdomen pelvis on July 16, 2021 was negative for metastatic disease. Her clinical stage at presentation was cT2N0. June 11, 2021 patient did undergo an MRI in [place]. I do not have that report available [...] 0 out of 5 lymph nodes negative. [id number]. Pathology was negative for LVSI. Of note [...] work. Has no other breast related complaints. [facility] - Medical History Medical History: Medical History [...] Allergies Allergy (Verified 03/12/22 08:56) Home Medications feikxnt-gespxmrhdbrrs-cogvcjzg 250 mg-250 mg-65 mg tablet (Excedrin Migraine) [...] 13:31 Dictated By: Stacie Thomas MD DD/ [id number] Signed By: <Electronically signed by Stcaie Thomas MD> 03/19/22 1056 [facility] Work Phone: 1([phone]) [phone] Progress note Author Kallie Chang [facility] March 12, 2022 4:36pm Note Date/Time March 12, 2022 9: 49am [facility] [place] [id number] Hem/Onc Follow Up Note - OP Signed Patient: Tenisha Hancock MR#: [id number] : 1975 Acct:[id number] Age/Sex: 46 / F Type: REG RCR [...] on 02/17/2022 by Drs. Saunders/Drew ([facility]). Her pathology returned with no [...] Simons and has an appointment scheduled at [facility] to discuss josep flap surgery as [...] overall good. BRCA testing was done through [facility] and is negative. She does have left [...] I willdefer to his impression and recommendations. 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 This is a 46-year-old female who works at [employer] with triple negative breast cancer, referred for neoadjuvant chemotherapy. Mammogramon on April 22, 2021 showed 3 new focal masses with the largest measuring 2 cm in size in the right breast. 2 additional lesions measuring 1 cm and a second 0.9 cm were also seen. The patient was referred for biopsy. Needle biopsy showed triple negative breast cancer, ER negative, NC negative, and H ER 2 -. The patient was referred to Dr. Ismael Red for Lmyiwd-t-Sgso which she has had placed. She has [facility] my [facility] and [facility]. Because of insurance reasons, she will be getting her treatment here at [facility]. She has had echocardiography as well. According the patient an MRI was obtained prior to neoadjuvant therapy while she was at [facility] we are requesting this prior study. [...] showed triple negative breast cancer, ER negative, NC negative, and HER 2 -. The patient was referred to Dr. Ismael Red for Qwlfxu-j-Joal which she has had placed. She has seen my colleague Dr. [facility] and immunotherapy. Because of insurance reasons, she will be getting her treatment here at [facility]. She has had echocardiography as well. [...] 9 cycles --Original breast MRI obtained from [facility] from May 2021, follow-up breast MRI [...] late December. 2. 02/17/2022 at [facility], Drs. Saunders/Drew: needle localized lumpectomy with oncoplastic reconstruction of right breast with right mastopexy . 03/12/2022: Referral to radiation oncology, then resume [...] Allergies Allergy (Verified 03/12/22 08:56) Home Medications tnvignc-ndmycccwslsjk-qaugqtmf 250 mg-250 mg-65 mg tablet (Excedrin Migraine) [...] was initially see in consultation by Dr. Smiht at [facility] in [place], [place]; however, due to insurance reasons the patient transferredcare to [facility]. In reviewing notes from her [...] do not have records from this from [facility] in [place]. I am requesting this to evaluate her [...] testing returned negative from prior physicians at [facility]. BRCA testing negative Follow-up September is [...] We will review her prior MRI from [facility] in May 2021 in comparison to [...] other significant toxicities. MRI was reviewed and [facility] tumor board with Dr. Reza and [...] small focus of residual DCIS, ER 5%, NC 0%. Referring for adjuvant radiation then we [...] for coordination of care (as documented) and exvp-ii-svnq counseling of patient and/or family. Dictated By: Kallie Chang MD DD/ 0948 Signed By: <Electronically signed by MD Kallie Chang> 03/12/22 1636 [facility] Work Phone: 1([phone]) 163-824008-02-2022 Hospital Discharge instructions* Discharge Instructions* Nader Alicia [...] permanent changes in scar color to darker, electronic components assembler or discolored. At times you may have [...] drainage Our office numbers are as follows: [place] office: [facility] Phone: 1(170) 472-415707-14-2022 Miscellaneous Notes* Telephone Encounter - Nat Ricketts RN - 01/29/2022 5:25 PM EDT Noticed that patient's appointment for 01/[address] Lea was cancelled Called and lmom with my name and number for her to call back if this was cancelled accidentally somehow and we would be happy to put her back on the schedule documented in this encounterCl[facility]07-07-2022 Miscellaneous Notes* Telephone Encounter - Nat [...] on voicemail to return her call at [phone]. Thank you. * Telephone Encounter - Nat [...] I see a teaching note 06/23/21 at [facility] but limited documentation since then as to her treatments, etc. I need path to be reviewed, pt will likely need updated imaging, can start with bilat diagnostic mammogram, perhaps can see me with same day imaging at ? Perhaps combine slots for her at 2:00 Parvez 7/15? Thanks, Xiomara Lea MD * Telephone Encounter [...] regarding faxed info she had sent to [employer]. Pt asking if fax was received by office or if she needs to do anything else. Pt requesting call back to discuss. * Telephone Encounter - Lucinda Alvarez Ma - 01/16/2022 9:13 AM EDT I called pt to discuss where all outside workup has been, she has had studies at both [facility] and [facility]. I was able to have patient get a release and will also fax to [employer] what she hasthus far. Our office will [...] slides and reports SHANNAN documented in this encounterClinton [facility]06-30-2022 NoteHNO ID: [id number] Author: Yasemin Bernal Service: ? Author Type: ? Type: Progress Notes Filed: 01/15/2022 4:35 PM Note Text: DATE OF PHOTOS: 01/15/2022 Body Part: Breasts and Abdomen Yasemin Bernal January 15, 2022 4:35 [facility]06-29-2022 NoteHNO ID: [id number] Author: Fahad Russell MD Service: ? Author Type: Physician Type: Progress Notes Filed: 01/27/2022 4:45 PM Note Text: BREAST RECONSTRUCTION EVALUATION CC: Tenisha Hancock is a 46 year old female that presents today for breast reconstruction evaluation. 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 Dr. Reza in [place] is her breast surgeon. She saw a plastic surgeon in [place] but he was not a microsurgeon and [...] STATUS: Single EMPLOYMENT: Patient is employed at [employer] staff EXAM: There is no height or weight on file to calculate BMI. Back Exam: no scar; latissimus dorsi muscle function appears to be intact Abdominal Exam: soft, non-tender, obese and protuberant, BS+, non-distended, lap samreen Breast Exam: Asymmetry: Minimal Axillary Lymphadenopathy: no Scars: None Ptosis: R: Grade III L: Grade III Medially displaced nipple: None Assessment: Patient is a candidate for tissue veneer department manager Photos taken today Plan: An extensive discussion was undertaken with the patient detailing the risks, benefits and alternatives to tissue veneer department manager. Tenisha Hancock was given supplemental information on [...] Past Histories independently gathered by the clinical software support specialist and the remaining scribed note accurately describes my personal service to the patient. patient's condition reviewed and examined ? plan and options of management, complexity, risk benefit limitation potential complication, success /failure of management, expected result and recovery discussed ? I spent 30 minutes in the visit, with more than 50% of the total mvhl-wn-sxhf time of the visit in counseling / coordination of care. ? Fahad Russell [facility]06-29-2022 History of Present illness Narrative* Fahad Russell MD - 01/14/2022 4:48 PM EDT BREAST RECONSTRUCTION EVALUATION CC: Tenisha Hancock is a 46 year old female that presents today for breast reconstruction evaluation. 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 in [place] is her breast surgeon. 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 Tenisha Chambers Christinekeith was given supplemental information on breast reconstruction. [...] Past Histories independently gathered by the clinical software support specialist and the remaining scribed note accurately describes my personal service to the patient. patient's condition reviewed and examined plan and options of management, complexity, risk benefit limitation potential complication, success/failure of management, expected result and recovery discussed I spent 30 minutes in the visit, with more than 50% of the total xrra-mp-yyuh time of the visit in counseling / coordination of care. Fahad Russell MD documented in this encounterClinton [facility]06-08-2022 Progress note Author Heber Arriaga [facility] December 24, 2021 8:46pm Note Date/Time December 24, 2021 3:07p [facility] [place] [address] Hem/Onc Follow Up Note - OP Signed Patient: Tenisha Hancock MR#: [id number] : 1975 Acct:[id number] Age/Sex: 46 / F Type: REG RCR Copies to: MD Uriel Wilson DO Kim E Knight, MD~ Subjective Date/Time of Service: Date of Service: 12/24/2021 Time of Service: 15:07 Chief Complaint: Patient is here for a 3 week follow up [facility] labs for review. Has multiple questions [...] Simons and has an appointment scheduled at [facility] to discuss josep flap surgery as [...] overall good. BRCA testing was done through [facility] and is negative. She does have left [...] I willdefer to his impression and recommendations. 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 This is a 46-year-old female who works at [employer] with triple negative breast cancer, referred for neoadjuvant chemotherapy. Mammogramon on April 22, 2021 showed 3 new focal masses with the largest measuring 2 cm in size in the right breast. 2 additional lesions measuring 1 cm and a second 0.9 cm were also seen. The patient was referred for biopsy. Needle biopsy showed triple negative breast cancer, ER negative, NC negative, and H ER 2 -. The patient was referred to Dr. Ismael Red for Mqncdj-f-Eerm which she has had placed. She has seen my [facility] and [facility]. Because of insurance reasons, she will be getting her treatment here at [facility]. She has had echocardiography as well. According the patient an MRI was obtained prior to neoadjuvant therapy while she was at [facility] we are requesting this prior study. [...] showed triple negative breast cancer, ER negative, NC negative, and HER 2 -. The patient was referred to Dr. Ismael Red for Vqmsbw-i-Uxxo which she has had placed. She has seen my colleague Dr. Smith [facility] and immunotherapy. Because of insurance reasons, she will be getting her treatment here at [facility]. She has had echocardiography as well. [...] 9 cycles --Original breast MRI obtained from [facility] from May 2021, follow-up breast MRI [...] Allergies Allergy (Verified 12/03/21 13:51) Home Medications fhpyooj-fygydfmpmejyd-ljkmvknw 250 mg-250 mg-65 mg tablet (Excedrin Migraine) [...] [facility] [place], [place]; however, due to insurance reasons the patient [email or web address] at [facility]. In reviewing notes from her prior physician [...] do not have records from this from [facility] in [place]. I am requesting this to evaluate her [...] testing returned negative from prior physicians at [facility]. BRCA testing negative Follow-up September is [...] We will review her prior MRI from [facility] in May 2021 in comparison to [...] other significant toxicities. MRI was reviewed and [facility] tumor board with Dr. Reza and [...] for coordination of care (as documented) and ortz-ar-otmm counseling of patient and/or family. Dictated By: Heber Arriaga APRN DD/ 1507 Signed By: <Electronically signed by PETE Arriaga> 12/24/212045 [facility] Work Phone: 1(809) 742-624405-18-2022 Progress note Author Kallie Chang [facility] December 03, 2021 2:19pm Note Date/Time December 03, 2021 2:02p m [facility] [address] [address] Hem/Onc Follow Up Note - OP Signed Patient: Tenisha Hancock MR#: [id number] : 1975 Acct:[id number] Age/Sex: 46 / F Type: REG RCR [...] overall good. BRCA testing was done through [facility] and is negative. She does have left [...] I willdefer to his impression and recommendations. 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 This is a 46-year-old female who works at [employer] with triple negative breast cancer, referred for neoadjuvant chemotherapy. Mammogramon on April 22, 2021 showed 3 new focal masses with the largest measuring 2 cm in size in the right breast. 2 additional lesions measuring 1 cm and a second 0.9 cm were also seen. The patient was referred for biopsy. Needle biopsy showed triple negative breast cancer, ER negative, NC negative, and H ER 2 -. The patient was referred to Dr. Ismael Red for Nmhltf-b-Ofzs which she has had placed. She has seen my colleague Dr. Smith at the [facility] recommended neoadjuvant chemotherapy and immunotherapy. Because of insurance reasons, she will be getting her treatment here at [facility]. She has had echocardiography as well. According the patient an MRI was obtained prior to neoadjuvant therapy while she was at [facility] we are requesting this prior study. [...] showed triple negative breast cancer, ER negative, NC negative, and HER 2 -. The patient was referred to Dr. Ismael Red for Tdrrqb-q-Oqbb which she has had placed. She has seen my colleague Dr. Smith at the [facility] recommended neoadjuvant chemotherapy and immunotherapy. Because of insurance reasons, she will be getting her treatment here at [facility]. She has had echocardiography as well. [...] 9 cycles --Original breast MRI obtained from [facility] from May 2021, follow-up breast MRI performed 10/07/2021 for initial response to therapy. Patient requested an opinion from Dr. Rzea for planning breast surgery options based on [...] Allergies Allergy (Verified 12/03/21 13:51) Home Medications nxlazek-dsbhhxlgpvdhg-jvtewmib 250 mg-250 mg-65 mg tablet (Excedrin Migraine) [...] Left breast without masses, left upper chest Ebtztb-w-Oomz in place and nontender. No axillary fullness [...] % (Auto) 80.1, Lymph % (Auto) 16.3, [place]am % (Auto) 2.6, Eos % (Auto) 0.5, Baso % (Auto) 0.5, Neut # (Auto) 6.9, Lymph # (Auto) 1.4, [place] # (Auto) 0.2, Eos # (Auto) 0.0, Baso # (Auto) 0.0, Nucleated RBC % (auto) 0.1, Toxic Granulation Slight, Dohle Bodies Slight, Platelet Estimate Normal, Plt Morphology Comment Normal, RBC Morphology N/A, Macrocytosis Slight, Tear Drop Cells Slight 11/25/21 14:45: PHA Creatinine Clear 105.09, Sodium 137, Potassium 4.2, Ajcbcqvc555, Carbon Dioxide 22.6, BUN 14, Creatinine 0.73, [...] % (Auto) 71.5, Lymph % (Auto) 19.6, [place] % (Auto) 7.6, Eos % (Auto) 0.4, Baso % (Auto) 0.9, Neut # (Auto) 6.2, Lymph # (Auto) 1.7, [place] # (Auto) 0.7, Eos # (Auto) 0.0, [...] [facility] [place], [place]; however, due to insurance reasons the patient transferredcare to [facility]. In reviewing notes from her [...] do not have records from this from [facility] in [place]. I am requesting this to evaluate her [...] testing returned negative from prior physicians at [facility]. BRCA testing negative Follow-up September is [...] We will review her prior MRI from [facility] in May 2021 in comparison to [...] other significant toxicities. MRI was reviewed and [facility] tumor board with Dr. Reza and [...] for coordination of care (as documented) and umxo-sn-zfdp counseling of patient and/or family. Dictated By: Kallie Chang MD DD/ 1401 Signed By: <Electronically signed by MD Kallie Chang> 12/03/21 6163 [facility] Work Phone: [phone] Progress note Author Kallie Chang [facility] November 13, 2021 3:34pm Note Date/Time November 12, 2021 3:0 7pm [facility] [place] [id number] Hem/Onc Follow Up Note - OP Signed Patient: Tenisha Hancock MR#: [id number] : 1975 Acct:[id number] Age/Sex: 46 / F Type: REG RCR [...] overall good. BRCA testing was done through [facility] and is negative. She does have left [...] I willdefer to his impression and recommendations. 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 This is a 46-year-old female who works at [employer] with triple negative breast cancer, referred for neoadjuvant chemotherapy. Mammogramon on April 22, 2021 showed 3 new focal masses with the largest measuring 2 cm in size in the right breast. 2 additional lesions measuring 1 cm and a second 0.9 cm were also seen. The patient was referred for biopsy. Needle biopsy showed triple negative breast cancer, ER negative, NC negative, and H ER 2 -. The patient was referred to Dr. Ismael Red for Zkzhzl-d-Dafs which she has had placed. She has seen my colleague Dr. Smith at the [facility] recommended neoadjuvant chemotherapy and immunotherapy. Because of insurance reasons, she will be getting her treatment here at [facility]. She has had echocardiography as well. According the patient an MRI was obtained prior to neoadjuvant therapy while she was at [facility] we are requesting this prior study. [...] showed triple negative breast cancer, ER negative, NC negative, and HER 2 -. The patient was referred to Dr. Ismael Red for Hmzycb-w-Knud which she has had placed. She has seen my colleague Dr. Smith at the [facility] recommended neoadjuvant chemotherapy and immunotherapy. Because of insurance reasons, she will be getting her treatment here at [facility]. She has had echocardiography as well. [...] 9 cycles --Original breast MRI obtained from [facility] from May 2021, follow-up breast MRI [...] Allergies Allergy (Verified 10/22/21 10:19) Home Medications xlkqjbw-cfodjrtbpxsyp-xsivlzsk 250 mg-250 mg-65 mg tablet (Excedrin Migraine) [...] Left breast without masses, left upper chest Aqmwko-j-Uwch in place and nontender. No axillary fullness [...] Creatinine Clear 145.60, Sodium 136, Potassium 3.6, Thmqzibp203, Carbon Dioxide 23.3, BUN 7 L, Creatinine [...] [facility] [place], [place]; however, due to insurance reasons the patient transferredcare to [facility]. In reviewing notes from her [...] do not have records from this from [facility] in [place]. I am requesting this to evaluate her [...] testing returned negative from prior physicians at [facility]. BRCA testing negative Follow-up September is [...] We will review her prior MRI from [facility] in May 2021 in comparison to [...] other significant toxicities. MRI was reviewed and [facility] tumor board with Dr. Reza and [...] for coordination of care (as documented) and kiix-vg-pxix counseling of patient and/or family. Dictated By: Kallie Chang MD DD/ 1507 Signed By: <Electronically signed by MD Kallie Chang> 11/13/21 1533 [facility] Work Phone: [phone]) [phone] Progress note Author Kallie Chang [facility] October 22, 2021 4:22pm Note Date/Time October 22, 2021 10:2 8am [facility] [place] [address] Hem/Onc Follow Up Note - OP Signed Patient: Tenisha Hancock MR#: [id number] : 1975 Acct:[id number] Age/Sex: 46 / F Type: REG RCR [...] overall good. BRCA testing was done through [facility] and is negative. She does have left [...] I willdefer to his impression and recommendations. 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 This is a 46-year-old female who works at [employer] with triple negative breast cancer, referred for neoadjuvant chemotherapy. Mammogramon on April 22, 2021 showed 3 new focal masses with the largest measuring 2 cm in size in the right breast. 2 additional lesions measuring 1 cm and a second 0.9 cm were also seen. The patient was referred for biopsy. Needle biopsy showed triple negative breast cancer, ER negative, NC negative, and H ER 2 -. The patient was referred to Dr. Ismael Red for Suzajs-z-Qbqn which she has had placed. She has [facility] and immunotherapy. Because of insurance reasons, she will be getting her treatment here at [facility]. She has had echocardiography as well. According the patient an MRI was obtained prior to neoadjuvant therapy while she was at [facility] we are requesting this prior study. [...] showed triple negative breast cancer, ER negative, NC negative, and HER 2 -. The patient was referred to Dr. Ismael Red for Ggedab-z-Ymkl which she has had placed. She has seen my colleague Dr. [facility] neoad[facility] and immunotherapy. Because of insurance reasons, she will be getting her treatment here at [facility]. She has had echocardiography as well. [...] 9 cycles --Original breast MRI obtained from [facility] from May 2021, follow-up breast MRI [...] Allergies Allergy (Verified 10/22/21 10:19) Home Medications cxlnoyo-ylovsulflvucf-blfdolcc 250 mg-250 mg-65 mg tablet (Excedrin Migraine) [...] lymphadenopathy. Left breast withoutmasses, left upper chest Gphkur-i-Bhmj in place and nontender. No axillary fullness [...] H, MCHC 33.7, RDW 16.7 H, Plt Hiuyp998 L, MPV 7.1, Nucleated RBC % (auto) [...] UP: IMM Impression dictated by: Jamari Guzman Jr. D.OSavanah10/13/2021 3:12 PM - Other Results Results/Comments: Date of Service: 10/14/21 [facility] echo transthoracic: monitoring for chemotherapy Interpretation [...] [facility] [place], [place]; however, due to insurance reasons the patient transferredcare to [facility]. In reviewing notes from her prior physician [...] do not have records from this from [facility] in [place]. I am requesting this to evaluate her [...] testing returned negative from prior physicians at [facility]. BRCA testing negative Follow-up September is [...] We will review her prior MRI from [facility] in May 2021 in comparison to [...] other significant toxicities. MRI was reviewed and [facility] tumor board with Dr. Reza and [...] management Moderate complexity visit for discussion and [facility] tumor board, review of MRI and echocardiogram, [...] for coordination of care (as documented) and szlw-tl-wtnj counseling of patient and/or family. Dictated By: Kallie Chang MD DD/ 1028 Signed By: <Electronically signed by MD Kallie Chang> 10/22/21 1622 [facility] Work Phone: [phone]) [phone] Progress note Author Kallie Chang [facility] October 09, 2021 2:48pm Note Date/Time October 08, 2021 11: 37am [facility] [place] [id number] Hem/Onc Follow Up Note - OP Signed Patient: Tenisha Hancock MR#: [id number] : 1975 Acct:[id number] Age/Sex: 46 / F Type: REG RCR [...] overall good. BRCA testing was done through [facility] and is negative. She does have left [...] I willdefer to his impression and recommendations. 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 This is a 46-year-old female who works at [employer] with triple negative breast cancer, referred for neoadjuvant chemotherapy. Mammogramon on April 22, 2021 showed 3 new focal masses with the largest measuring 2 cm in size in the right breast. 2 additional lesions measuring 1 cm and a second 0.9 cm were also seen. The patient was referred for biopsy. Needle biopsy showed triple negative breast cancer, ER negative, NC negative, and H ER 2 -. The patient was referred to Dr. Ismael Red for Spfnnh-m-Lpmt which she has had placed. She has seen my colleague Dr. [facility] neoadjuvant chemotherapy and immunotherapy. Because of insurance reasons, she will be getting her treatment here at [facility]. She has had echocardiography as well. According the patient an MRI was obtained prior to neoadjuvant therapy while she was at [facility] we are requesting this prior study. [...] showed triple negative breast cancer, ER negative, NC negative, and HER 2 -. The patient was referred to Dr. Ismael Red for Dbrywz-t-Nkue which she has had placed. She has seen my colleague Dr. Smith at the [facility] recommended neoadjuvant chemotherapy and immunotherapy. Because of insurance reasons, she will be getting her treatment here at [facility]. She has had echocardiography as well. [...] 9 cycles --Original breast MRI obtained from [facility] from May 2021, follow-up breast MRI [...] Negative for environmental allergies and food allergies. [facility] - History Attestation statement: The following information [...] PO Q6H PRN 07/03/21 [History Confirmed 10/08/21] kspjaci-nuuaphaatitji-vaootjvn 250 mg-250 mg-65 mg tablet (Excedrin Migraine) [...] Q8H PRN #30 tab 12/21/21 [Rx Confirmed 10/08/21] prochlorperazine maleate 10 mg [...] Left breast without masses, left upper chest Xuzupc-p-Otkl in place and nontender. No axillary fullness [...] Creatinine Clear 110.24, Sodium 136, Potassium 3.7, Ngedtyit083, Carbon Dioxide 22.8, BUN 7 L, Creatinine [...] % (Auto) 65.5, Lymph % (Auto) 30.1, [place] % (Auto) 3.7, Eos % (Auto) 0.4, Baso % (Auto) 0.3, Neut # (Auto) 4.0, Lymph # (Auto) 1.8, [place] # (Auto) 0.2, Eos # (Auto) 0.0, [...] [facility] [place], [place]; however, due to insurance reasons the patient transferredcare to [email or web address] at [facility]. In reviewing notes from her prior physician [...] do not have records from this from [facility] in [place]. I am requesting this to evaluate her [...] testing returned negative from prior physicians at [facility]. BRCA testing negative Follow-up September is [...] We will review her prior MRI from [facility] in May 2021 in comparison to [...] for coordination of care (as documented) and bvfa-mq-jesk counseling of patient and/or family. Dictated By: Kallie Chang MD DD/ 1136 Signed By: <Electronically signed by MD Kallie Chang> 10/09/21 1440 [facility] Work Phone: [phone]) 940-391803-09-2022 Progress note Author Kallie Chang [facility] September 24, 2021 11:25am Note Date/Time September 24, 2021 8:11 am [facility] [place] [address] Hem/Onc Follow Up Note - OP Signed Patient: Tenisha Hancock MR#: [id number] : 1975 Acct:[id number] Age/Sex: 46 / F Type: REG RCR [...] overall good. BRCA testing was done through [facility] and is negative. She does have left [...] I willdefer to his impression and recommendations. 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 This is a 46-year-old female who works at [employer] with triple negative breast cancer, referred for neoadjuvant chemotherapy. Mammogramon on April 22, 2021 showed 3 new focal masses with the largest measuring 2 cm in size in the right breast. 2 additional lesions measuring 1 cm and a second 0.9 cm were also seen. The patient was referred for biopsy. Needle biopsy showed triple negative breast cancer, ER negative, NC negative, and H ER 2 -. The patient was referred to Dr. Ismael Red for Tyzggs-r-Tlox which she has had placed. She has seen my colleague Dr. Smith at the [facility] recommended neoadjuvant chemotherapy and immunotherapy. Because of insurance reasons, she will be getting her treatment here at [facility]. She has had echocardiography as well. According the patient an MRI was obtained prior to neoadjuvant therapy while she was at [facility] we are requesting this prior study. [...] showed triple negative breast cancer, ER negative, NC negative, and HER 2 -. The patient was referred to Dr. Ismael Red for Gtchtf-g-Jbvz which she has had placed. She has seen my colleague Dr. Smith at the [facility] recommended neoadjuvant chemotherapy and immunotherapy. Because of insurance reasons, she will be getting her treatment here at [facility]. She has had echocardiography as well. [...] PO Q6H PRN 07/03/21 [History Confirmed 09/24/21] uyaztot-lzpyzhuhypfbb-jppopcnd 250 mg-250 mg-65 mg tablet (Excedrin Migraine) [...] Left breast without masses, left upper chest Pxaxir-c-Ddxm in place and nontender. No axillary fullness [...] Impressions We will request outside MRI from [facility] from baseline. - Other Results Results/Comments: Prior notes from [facility] CT scan showed echocardiogram 06/19/2021 with [...] [facility] [place], [place]; however, due to insurance reasons the patient transferredcare to [facility]. In reviewing notes from her [...] do not have records from this from [facility] in [place]. I am requesting this to evaluate her [...] testing returned negative from prior physicians at [facility]. BRCA testing negative Today in follow-up [...] for coordination of care (as documented) and vzwl-sv-kzfo counseling of patient and/or family. Dictated By: Kallie Chang MD DD/ 0810 Signed By: <Electronically signed by MD Kallie Chang> 09/24/21 1127 [facility] Work Phone: 1([phone]) 121-417202-28-2022 Evaluation note* Encounter Date Diagnosis Assessment Notes [...] investigation. Aug, Cervical spondylosis (ICD-10 - M47.812) Path.To Other 02-02-2022 Progress note Author Salbador Phoenix [facility] August 20, 2021 2:47pm Note Date/Time August 20, 2021 2 :45pm [facility] [place] [address] Hem/Onc Follow Up Note - OP Signed Patient: Tenisha Hancock MR#: [id number] : 1975 Acct:[id number] Age/Sex: 46 / F Type: REG RCR [...] overall good. BRCA testing was done through [facility] and is negative. She does have left [...] I willdefer to his impression and recommendations. UTE: This is a 46 year old female, [...] showed triple negative breast cancer, ER negative, NC negative, and HER 2-. The patient was referred to Dr. Ismael Red for Ajpius-q-Dcpi which she has had placed. She has seen my [facility] and immunotherapy. Because of insurance reasons, she will be getting her treatment here at [facility]. She has had echocardiography as well. [...] 10 point review of systems is negative. [facility] - Medical History Medical History: Medical History [...] PO Q6H PRN 07/03/21 [History Confirmed 08/20/21] fgpolyn-vzrupgdxhqran-pbtmzmmv 250 mg-250 mg-65 mg tablet (Excedrin Migraine) [...] % (Auto) 58.0, Lymph % (Auto) 36.6, [place] % (Auto) 3.9, Eos % (Auto) 1.0, Baso % (Auto) 0.5, Neut # (Auto) 3.2, Lymph # (Auto) 2.0, [place] # (Auto) 0.2, Eos # (Auto) 0.1, [...] [facility] [place], [place]; however, due to insurance reasons the patient transferredcare to [email or web address] at [facility]. She commenced neoadjuvant Carboplatin/Paclitaxel/Pembrolizumab therapy on 07/22/2021; [...] for coordination of care (as documented) and nott-gm-eped counseling of patient and/or family. Dictated By: Salbador Phoenix MD DD/ 40 Signed By: <Electronically signed by MD Salbador Phoenix> 08/20/211446 [facility] Work Phone: [phone]) [phone] Progress note Author Jazmin Monsivais [facility] July 31, 2021 3:54pm Note Date/Time July 31, 2021 3 :07pm [facility] [place] [address] Hem/Onc Follow Up Note - OP Signed Patient: Tenisha Hancock MR#: [id number] : 1975 Acct:[id number] Age/Sex: 46 / F Type: REG RCR [...] showed triple negative breast cancer, ER negative, NC negative, and HER 2 -. The patient was referred to Dr. Ismael Red for Ldgnse-i-Haxx which she has had placed. She has seen my [facility] and immunotherapy. Because of insurance reasons, she will be getting her treatment here at [facility]. She has had echocardiography as well. [...] 10 point review of systems is negative. [facility] - Medical History Medical History: Medical History [...] PO Q6H PRN 07/03/21 [History Confirmed 07/31/21] vqsxpzr-cgfictftplins-wcziffcq 250 mg-250 mg-65 mg tablet (Excedrin Migraine) [...] 07/16/21 12:50 Outside Labs: Outside labs from [facility] scanned in chart; no significant cytopenias or abnormalities (WBC- 8.0; Hgb 12.0; normal platelets; Normal electrolytes; renal/hepatic fxn) Assessment and Plan (1) Breast cancer Patient is a 46-year-old female presenting with 3 discernible masses by mammography (04/22/2021) with needle biopsy confirming triple negative breast cancer. She was initially see in consultation by Dr. Smith at [facility] [place], [place]; however, due to insurance reasons the patient transferredcare to [email or web address] at [facility]. She commenced neoadjuvant Carboplatin/Paclitaxel/Pembrolizumab therapy on 07/22/2021; [...] ofthe chest/abdomen/pelvis on 07/16/2021 here at [facility]. There was no obvious evidence of distant [...] [facility] has [facility] issues with low [...] for coordination of care (as documented) and bbqf-xl-sztc counseling of patient and/or family. Dictated By: Jazmin Monsivais APRN DD/ 1454 Signed By: <Electronically signed by PETE Monsivais> 07/31/21 1554 [facility] Work Phone: 1(773) 188-228001-13-2022 Hospital Discharge instructionsAmbulatory Orders* Imaging on Disk Time Frame: 1 Day, Location: Determined By Patient * [facility] Order Time Frame: 07/31/21, Location: Determined By Patient [facility] Work Phone: 1(762) 180-321912-28-2021 Progress note Author Salbador Phoenix [facility] July 15, 2021 1:32pm Note Date/Time July 15, 2021 1:28pm [facility] [place] [id number] Hem/Onc Follow Up Note - OP Signed Patient: Tenisha Hancock Trish MR#: [id number] : 1975 Acct:[id number] Age/Sex: 46 / F Type: REG RCR [...] is a 46-year-old female who works at [employer] who was referred here with triple [...] showed triple negative breast cancer, ER negative, NC negative, and H ER 2 -. The patient was referred to Dr. Ismael Red for Nniagj-h-Iqpx which she has had placed. She has seen my colleague Dr. Smith at the [facility] who recommended neoadjuvant chemotherapy and immunotherapy. Because of insurance reasons, she will be getting her treatment here at [facility]. She has had echocardiography as well. [...] PO Q6H PRN 07/03/21 [History Confirmed 07/15/21] mrlgtpv-uhehvznjfdlnq-pboqdclm 250 mg-250 mg-65 mg tablet (Excedrin Migraine) [...] % (Auto) 68.7, Lymph % (Auto) 25.5, [place] % (Auto) 3.9, Eos % (Auto) 1.0, Baso % (Auto) 0.9, Neut # (Auto) 6.9, Lymph # (Auto) 2.6, [place] # (Auto) 0.4, Eos# (Auto) 0.1, Baso [...] July 29, 2021. The patient has her Rgcrii-g-Vbge and and has had echocardiography. We will [...] for coordination of care (as documented) and dytt-st-yyke counseling of patient and/or family. Dictated By: Salbador Phoenix MD DD/ 26 Signed By: <Electronically signed by MD Salbador Phoenix> 07/15/21 [address] [facility] Work Phone: 1(110) 973-380412-21-2021 Consult note Author Salbador Phoenix [facility] July 08, 2021 3:14pm Note Date/Time July 08, 2021 2:58pm [facility] [place] [address] Hem/Onc Consult Note - OP Signed Patient: Tenisha Hancock MR#: [id number] : 1975 Acct:[id number] Age/Sex: 46 / F Type: REG RCR [...] is a 46-year-old female who works at [employer] who is referred here with triple [...] showed triple negative breast cancer, ER negative, NC negative, and H ER 2 -. The patient was referred to Dr. Ismael Red for Lcoasf-m-Tgip which she has had placed. She has seen my colleague Dr. Smith at the [facility] who recommended neoadjuvant chemotherapy and immunotherapy. Because of insurance reasons, she will be getting her treatment here at [facility]. She has had echocardiography as well. She does have a palpable breast mass. It is in the lower mid quadrant of the right breast. [facility] - Medical History Medical History: Medical History [...] PO Q6H PRN 07/03/21 [History Confirmed 07/08/21] tbulujb-lwgkorheurqry-qapwrbze 250 mg-250 mg-65 mg tablet (Excedrin Migraine) [...] cancer. She has seen medical oncology at [facility] who has recommended neoadjuvant chemotherapy and [...] at this time. The patient has her Hujqnc-h-Ujzy and and has had echocardiography. We will refer her for chemotherapy education and literature. She was requesting PET scan which is reasonable. I will also recommend genetic testing which can be done through [facility]. Our treatment plan will be pembrolizumab every [...] for coordination of care (as documented) and kxnl-fz-ncpj counseling of patient and/or family. Dictated By: Salbador Phoenix MD DD/ [id number] Signed By: <Electronically signed by MD Salbador Phoenix> 07/08/21 [address] [facility] Work Phone: Consult note Author [facility] March 19, 2022 10:56am Note Date/Time March 18, 2022 3: 31pm [facility] [place] [address] Rad Onc Consult Note - OP Signed Patient: Tenisha Hancock MR#: [id number] : 1975 Acct:[id number] Age/Sex: 46 / F Type: REG RCR [...] 0 out of 5 lymph nodes involved. [id number]. 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 Per the available notes her BRCA testing was done through [facility] and was negative. Also appears the right breast mass was palpable in the lower mid quadrant of the breast. [facility]. Due to insurance reasons she received her systemic therapy here at [facility]. PET/CT was denied by insurance. CT scan of the chest abdomen pelvis on July 16, 2021 was negative for metastatic disease. Her clinical stage at presentation was cT2N0. June 11, 2021 patient did undergo an MRI in [place]. I do not have that report available [...] 0 out of 5 lymph nodes negative. [id number]. Pathology was negative for LVSI. Of note [...] work. Has no other breast related complaints. [facility] - Medical History Medical History: Medical History [...] Allergies Allergy (Verified 03/12/22 08:56) Home Medications lapompm-dfxvgbvbqqdnk-lvrpjyqm 250 mg-250 mg-65 mg tablet (Excedrin Migraine) [...] Stacie Thomas MD> 03/19/22 1056 [facility] [employer] Work Phone: Evaluation + Plan note No data available for this section General Surgery [place] Evaluation note* Diagnosis History of breast cancer- Primary Personal history of malignant neoplasm of breast Breast asymmetry following reconstructive surgery Disproportion of reconstructed breast Malignant neoplasm of right female breast, unspecified estrogen receptor status, unspecified site of breast (HCC)- Primary [facility] Diagnosis Malignant neoplasm of right female breast, unspecified estrogen receptor status, unspecified site of breast (HCC) documented in this encounter [employer] Work Phone: evalaxmrxt note* Diagnosis Status post breast reconstruction- Primary Breast replaced by other means Status post breast lumpectomy Other postprocedural status Abnormal mammogram Abnormal mammogram, unspecified Malignant neoplasm of right female breast, unspecified estrogen receptor status, unspecified site of breast (HCC) documented in this encounter [employer] Phone: evalbejmos note* Diagnosis Malignant neoplasm of right female breast, unspecified estrogen receptor status, unspecified site of breast (HCC) documented in this encounter [employer] Phone: evalufgjel note* Diagnosis Onset Date Resolution Status Breast cancer chronic Encounter for antineoplastic immunotherapy chronic Encounter for chemotherapy management chronic 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 Chemotherapy-induced neutropenia resolved [facility] [employer] Work Phone: Evaluation note* Diagnosis Onset Date Resolution Status 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 acute Arthralgia of multiple sites, bilateral acute Encounter for coordination of complex care acute Breast cancer chronic Encounter for antineoplastic immunotherapy chronic Encounter for chemotherapy management chronic 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 Chemotherapy-induced neutropenia resolved [facility] Work Phone: evaluation note* Diagnosis Onset Date Resolution Status 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 chronic Arthralgia of multiple sites, bilateral chronic Breast cancer chronic Encounter for antineoplastic immunotherapy chronic Encounter for chemotherapy management chronic Encounter for coordination of complex care chronic 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 Chemotherapy-induced neutropenia resolved [facility] Work Phone: Evaluation note* Diagnosis Onset Date Resolution Status 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 chronic Breast cancer chronic Encounter for antineoplastic immunotherapy chronic Encounter for chemotherapy management chronic Encounter for coordination of complex care chronic 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 Arthralgia of multiple sites, bilateral resolved Chemotherapy-induced neutropenia resolved [facility] Work Phone: Evaluation note* Diagnosis Onset Date Resolution Status Hypothyroidism (acquired) ac jania 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 chronic Breast cancer chronic Encounter for antineoplastic immunotherapy chronic Encounter for chemotherapy management chronic Encounter for coordination of complex care chronic 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 Arthralgia of multiple sites, bilateral resolved Chemotherapy-induced neutropenia resolved [facility] Work Phone: evaluation noteNo assessment information available [facility] Work Phone: Evaluation note* Diagnosis Left wrist [...] in joint, forearm documented in this encounter [facility]* Diagnosis Moderate episode of [...] of right toe documented in this encounter [facility]* Diagnosis Moderate episode of [...] and depression (CMS/HCC) documented in this encounter [facility]* Diagnosis Encounter for wellness examination in adult- Primary documented in this encounter [facility]* Diagnosis Well woman exam with routine gynecological exam Routine gynecological examination documented in this encounter [facility] HealthcareEvaluation note* Diagnosis Moderate episode of [...] rhinitis, unspecified trigger documented in this encounter [facility] HealthcareEvaluation note* Diagnosis Moderate episode of recurrent [...] Hot flashes documented in this encounter [facility]* Diagnosis Onset Date Resolution Status Admit Date Dysuria noneactive December 15, 2024 10:38am [facility] Work Phone: Evaluation note* Diagnosis Onset Date Resolution Status Admit Date Wellness examination acute Sept emb2024 10:03am 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 chronic April 17, 2025 10:03am Breast cancer chronic March 212024 10:03am Hypothyroidism (acquired) chronic April 17, 2025 10:03am [facility] Work Phone: History general Narrative - Reported* Type Description Date Medical History GERD (gastroesophageal reflux di sease) Medical History Depression Medical History Breast Cancer Surgical History gallbladder Surgical History Foot Surgery Hospitalization History gallbladder Path.To [facility] Work Phone: [facility] Work Phone: [facility] Work Phone: Hospital Discharge instructionsAmbulatory Orders* RISE Order Time Frame: 1 Day, Location: Determined By Patient [facility] Work Phone: Hospital Discharge instructions No data available for this section General Surgery [place] Progress note Author Kallie Chang [facility] March 12, 2022 4:36pm Note Date/Time March 12, 2022 9: 49am [facility] [place] [id number] Hem/Onc Follow Up Note - OP Signed Patient: Tenisha Hancock MR#: [id number] : 1975 Acct:[id number] Age/Sex: 46 / F Type: REG RCR [...] on 02/17/2022 by Drs. Saunders/Drew ([facility]). Her pathology returned with no [...] Simons and has an appointment scheduled at [facility] to discuss josep flap surgery as [...] overall good. BRCA testing was done through [facility] and is negative. She does have left [...] I willdefer to his impression and recommendations. 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 This is a 46-year-old female who works at [employer] with triple negative breast cancer, referred for neoadjuvant chemotherapy. Mammogramon on April 22, 2021 showed 3 new focal masses with the largest measuring 2 cm in size in the right breast. 2 additional lesions measuring 1 cm and a second 0.9 cm were also seen. The patient was referred for biopsy. Needle biopsy showed triple negative breast cancer, ER negative, NC negative, and H ER 2 -. The patient was referred to Dr. Ismael Red for Ssbmyc-b-Jdgi which she has had placed. She has seen my colleague Dr. Smith at the [facility] recommended neoadjuvant chemotherapy and immunotherapy. Because of insurance reasons, she will be getting her treatment here at [facility]. She has had echocardiography as well. According the patient an MRI was obtained prior to neoadjuvant therapy while she was at [facility] we are requesting this prior study. [...] showed triple negative breast cancer, ER negative, NC negative, and HER 2 -. The patient was referred to Dr. Ismael Red for Svnusz-g-Fobh which she has had placed. She has seen my colleague Dr. Smith at the [facility] recommended neoadjuvant chemotherapy and immunotherapy. Because of insurance reasons, she will be getting her treatment here at [facility]. She has had echocardiography as well. [...] 9 cycles --Original breast MRI obtained from [facility] from May 2021, follow-up breast MRI [...] late December. 2. 02/17/2022 at [facility], Drs. Saunders/Drew: needle localized lumpectomy [...] Allergies Allergy (Verified 03/12/22 08:56) Home Medications nfzlkxp-jlherdrhcoruu-ykrvzmwf 250 mg-250 mg-65 mg tablet (Excedrin Migraine) [...] [facility] in [place], [place]; however, due to insurance reasons the patient [email or web address] at [facility]. In reviewing notes from her prior physician [...] do not have records from this from [facility] in [place]. I am requesting this to evaluate her [...] testing returned negative from prior physicians at [facility]. BRCA testing negative Follow-up September is [...] We will review her prior MRI from [facility] in May 2021 in comparison to [...] other significant toxicities. MRI was reviewed and [facility] tumor board with Dr. Reza and [...] small focus of residual DCIS, ER 5%, NC 0%. Referring for adjuvant radiation then we [...] for coordination of care (as documented) and yvie-bz-xdlo counseling of patient and/or family. Dictated By: Kallie Chang MD DD/ [id number] Signed By: <Electronically signed by MD Kallie Chang> 03/12/22 [address] [facility] Work Phone: Progress note Author Kallie Chang [facility] September 18, 2022 10:28pm Note Date/Time September 18, 2022 1:44 pm [facility] [place] [address] Hem/Onc Follow Up Note - OP Signed Patient: Tenisha Hancock MR#: [id number] : 1975 Acct:[id number] Age/Sex: 47 / F Type: REG RCR [...] hydrocortisone 20mg am/10mg pm. Will f/u with [employer] next week to review symptoms. We may [...] on 02/17/[address] Saunders/Drew ([facility]). Her pathology returned with no [...] Simons and has an appointment scheduled at [facility] to discuss josep flap surgery as [...] overall good. BRCA testing was done through [facility] and is negative. She does have left [...] I willdefer to his impression and recommendations. 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 This is a 46-year-old female who works at [employer] with triple negative breast cancer, referred for neoadjuvant chemotherapy. Mammogramon on April 22, 2021 showed 3 new focal masses with the largest measuring 2 cm in size in the right breast. 2 additional lesions measuring 1 cm and a second 0.9 cm were also seen. The patient was referred for biopsy. Needle biopsy showed triple negative breast cancer, ER negative, NC negative, and H ER 2 -. The patient was referred to Dr. Ismael Red for Yktqai-l-Ivjt which she has had placed. She has [facility]. Because of insurance reasons, she will be getting her treatment here at [facility]. She has had echocardiography as well. According the patient an MRI was obtained prior to neoadjuvant therapy while she was at [facility] we are requesting this prior study. [...] showed triple negative breast cancer, ER negative, NC negative, and HER 2 -. The patient was referred to Dr. Ismael Red for Tfmtmv-z-Sjji which she has had placed. She has seen my colleague Dr. [facility] and immunotherapy. Because of insurance reasons, she will be getting her treatment here at [facility]. She has had echocardiography as well. [...] 9 cycles --Original breast MRI obtained from [facility] from May 2021, follow-up breast MRI [...] late December. 2. 02/17/2022 at [facility], Drs. Saunders/Shantal: needle localized lumpectomy [...] Allergies Allergy (Verified 09/18/22 13:38) Home Medications obyrryr-rhncfwzmzbrpu-krsgpbbs 250 mg-250 mg-65 mg tablet (Excedrin Migraine) [...] % (Auto) 91.1, Lymph % (Auto) 6.2, [place] % (Auto) 2.3, Eos % (Auto) 0.1, Baso % (Auto) 0.3, Nucleat RBC Rel Count 0.1, Neut # (Auto) 10.4 H, Lymph # (Auto) 0.7 L, [place] # (Auto) 0.3, Eos # (Auto) 0.0, [...] [facility] [place], [place]; however, due to insurance reasons the patient [facility]. In reviewing notes from her [...] do not have records from this from [facility] in [place]. I am requesting this to evaluate her [...] testing returned negative from prior physicians at [facility]. BRCA testing negative Follow-up September is [...] We will review her prior MRI from [facility] in May 2021 in comparison to [...] other significant toxicities. MRI was reviewed and [facility] tumor board with Dr. Reza and [...] small focus of residual DCIS, ER 5%, NC 0%. Completed adjuvant radiation then we resumed [...] with sentinel lymph node biopsy 02/17/2022 in [place]. Adjuvant radiation completed 05/04-06/16/2022. Total of 30 [...] for coordination of care (as documented) and ykts-yw-aflw counseling of patient and/or family. Dictated By: Kallie Chang MD DD/ [id number] Signed By: <Electronically signed by MD Kallie Chang> 09/18/22 2[address] [facility] Work Phone: Progress note No data available for this section General Surgery [place] Revqst for referral (narrative)No reason for referral information availableMartin [facility] Hospital Work Phone: Reason for visit NarrativeReferral Dr. Phoenix T12 [facility] [employer] Other Summary Purpose Family History Relationship Condition [...] Chronic obstructive pulmonary disease Unk nown Unknown Relationship Condition Age at Onset Recorded Date/T vanessa brother Malignant neoplasm of lung Unknown father Malignant neoplasm Unknown mother Chronic obstructive pulmonary disease Unk nown Peripheral vascular disease Unknown father Unknown Advance Directives Advance Directive Response Recorded [...] Procedures MRI BREAST BILATERAL W WO CONTRAST JnbhargavDiana, DO [address] [address] Referral ID Status Reason Start Date Expiration Date Visits Re quested Visits Authorized [id number] Closed 02/03/2022 01/28/2023 1 1 Chief Complaint [...] Chief Complaint r92.8 Chief Complaint Admit Date Z898 Z85.3 Z80.9 October 05, 2024 9:3 5am Chief Complaint Admit Date Z Z85.3 Z80.9 October 05, 2024 9:3 5am dizzy, frequency, pain, poss uti November 10:38am Reason for Visit Admit Date Dysuria December 15, 2024 10:38 am Chief Complaint Admit Date dizzy, frequency, pain, poss uti November 10:38am R30. December 15, 2024 10:50 am Left eye redness, painful, crusty, light sensitive January 15, 2025 9:29am Chief Complaint Admit Date Annual Wellness April 17, 2025 10:03am Reason for Visit Admit Date Wellness examination April 17 10:03am Adrenal insufficiency due to cancer ther apy April 17, 2025 10:03am Breast cancer April 17, 2025 10:03am Hypothyroidism (acquired) March 10:03am Additional Source Comments Source Comments (unrecognize d section and content) In the event this informatio n is protected by the Federal Confidentiality of Alcohol and Drug Abuse Patient Records regulations: The Federal rules restrict any use of the information to criminally investigate or prosecute any alcohol or drug abuse patient.[facility] the event this information is protected by the Federal Confidentiality of Alcohol and Drug Abuse Patient Records regulations: The Federal rules restrict any use of the information to criminally investigate or prosecute any alcohol or drug abuse patient.[facility] Hospital[facility] the event this information is protected by the Federal Confidentiality of Alcohol and Drug Abuse Patient Records regulations: The Federal rules restrict any use of the information to criminally investigate or prosecute any alcohol or drug abuse patient.[facility] Hospital[facility] the event this information is protected by the Federal Confidentiality of Alcohol and Drug Abuse Patient Records regulations: The Federal rules restrict any use of the information to criminally investigate or prosecute any alcohol or drug abuse patient.[facility] Reason for Visit (unrecogniz ed section and content) Reason Comments Appointment Reason Comments Consult Specialty Diagnoses / Procedures Referred By Ramirez flores Referred To Contact Radiology Diagnoses Malignant neoplasm of right female breast, unspecified estrogen receptor status, unspecified site of breast (HCC) Procedures MRI BREAST BILATERAL W WO CONTRAST Diana Murguia DO [address] [address] Referral ID Status Reason Start Date Expiration Date Visits Re quested Visits Authorized [id number] Closed 02/03/2022 01/28/2023 1 1 Specialty Diagnoses / Procedures Referred By Contac t Referred To Contact Diagnoses Malignant neoplasm of right female breast, unspecified estrogen receptor status, unspecified site of breast (HCC) Malignant neoplasm of right female breast, unspecified estrogen receptor status, unspecified site of breast (HCC) [C50.911] Procedures NC MASTECTOMY, PARTIAL NC OFFICE/OUTPT VISIT,PROCEDURE ONLY NC BREAST REDUCTION NEEDLE DIRECTED @ 800 RIGHT BREAST LUMPECTOMY WITH SENTINEL NODE BIOPSY @ 830 WITH FROZEN SECTION AND POSSIBLE AXILLARY LYMPH NODE DISSECTION ONCOPLASTIC RECONSTRUCTION RIGHT BREAST WITH JOSE R INCISIONAL VAC AND PEC BLOCK Diana Murguia, DO [address] [facility] [address] [place] [address] [facility] [employer] [address] [place] [address] Referral ID Status Reason Start Date Expiration Date Visits Re quested Visits Authorized [id number] 1 1 Specialty Diagnoses / Procedures Referred By Ramirez t Referred To Contact Diagnoses Malignant neoplasm of unspecified site of right female breast Procedures HC NM LYMPHATICS,LYMPH GLAND IMAGING [facility] Nuclear Medicine [address] [place] [address] [facility] [employer] [address] [place] [address] Referral ID Status Reason Start Date Expiration Date Visits Re quested Visits Authorized [id number] 1 1 Reason Comments Pain Reason Comments [...] Active Kallie Chang MD Attending Provider Active Slp Relationship Specialty Start Date End Date Jasbir Limon MD [address] [place] [address] (Fax) PCP - General 10/28/00 Slp Relationship Specialty Start Date End Date Jasbir Limon MD [address] [place] [address] (Fax) PCP - General 10/28/00 Slp Relationship Specialty Start Date End Date Jasbir Limon MD [address] [place] [address] (Fax) PCP - General 10/28/00 Slp Relationship Specialty Start Date End Date Eliel Hurd [address] [facility] [place] [address] PCP - General Specialist 02/04/22 Slp Relationship Specialty Start Date End Date Eliel Hurd [address] [facility] [place] [address] PCP - General Specialist 02/04/22 Slp Relationship Specialty Start Date End Date Eliel Hurd [address] [facility] [place] [address] PCP - General Specialist 02/04/22 Team Status: [...] Active Adam Vickers DO Attending Provider Active Slp Relationship Specialty Start Date End Date Shaikh España MD PCP - General Internal Medicine 11/24/22 Team Status: Active Member Role Status Dates Shaikh Patria MD Primary Care Provider Active Team Status: Inactive Member Role Status Dates Chidi Rincon Attending Provider Active Start: 2023 End: January 10, 2024 Shaikh Patria MD Primary Care Provider Active Start: January 10, 2024 End: January 10, 2024 Slp Relationship Specialty Start Date End Date Shaikh España MD [address] [place] [address] PCP - General Internal Medicine 10/07/23 Slp Relationship Specialty Start Date End Date Shaikh España MD [address] [place] [id number] PCP - General Internal Medicine 10/07/23 Slp Relationship Specialty Start Date End Date Shaikh España MD [address] [place] [phone] PCP - General Internal Medicine 10/07/23 Slp Relationship Specialty Start Date End Date Chinmay Muñoz MD [address] [place] [phone] PCP - General Family Medicine 06/01/24 Demetra Sparrow NP [address] [place] [address] Nurse Practitioner Family Medicine 06/01/24 Slp Relationship Specialty Start Date End Date Chinmay Muñoz MD [address] [place] [id number] PCP - General Family Medicine 06/01/24 Demetra Sparrow NP [address] [place] [address] Nurse Practitioner Family Medicine 06/01/24 Slp Relationship Specialty Start Date End Date Chinmay Muñoz MD [address] [place] [phone] PCP - General Family Medicine 06/01/24 Demetra Sparrow NP [address] [place] [address] Nurse Practitioner Family Medicine 06/01/24 Slp Relationship Specialty Start Date End Date Chinmay Muñoz MD [address] [place] [address] PCP - General Family Medicine 06/01/24 Demetra Sparrow NP [address] [place] [address] Nurse Practitioner Family Medicine 06/01/24 Slp Relationship Specialty Start Date End Date Shaikh España MD [address] [place] [phone] PCP - General Internal Medicine 10/07/23 Slp Relationship Specialty Start Date End Date Shaikh España MD [address] [place] [phone] PCP - General Internal Medicine 10/07/23 Slp Relationship Specialty Start Date End Date Shaikh España MD [address] [place] [address] PCP - General Internal Medicine 10/07/23 Slp Relationship Specialty Start Date End Date Chinmay Muñoz MD [address] [place] [address] PCP - General Family Medicine 06/01/24 Demetra Sparrow NP [address] [place] [address] Nurse Practitioner Family Medicine 06/01/24 Team Status: Active Member Role Status Dates PHYSICIAN NO FAMILY Primary Care Provider Active Team Status: Inactive Member Role Status Dates Chidi Rincon DO Attending Provider Active Start : October 05, 2024 End: October 05, 2024 PHYSICIAN NO FAMILY Primary Care Provider Active Start: October 05, 2024 End: October 05, 2024 Slp Relationship Specialty Start Date End Date Chinmay Muñoz MD [address] [place] [address] PCP - General Family Medicine 06/01/24 Shaikh España MD [address] [place] [address] PCP - [employer] 06/18/24 Demetra Sparrow NP [address] [place] [address] Nurse Practitioner Family Medicine 06/01/24 Slp Relationship Specialty Start Date End Date Chinmay Muñoz MD [address] [place] [address] PCP - General Family Medicine 06/01/24 Shaikh España MD [address] [place] [address] PCP - [employer] 06/18/24 Demetra Sparrow NP [address] [place] [phone] Nurse Practitioner Family Medicine 06/01/24 Team Status: Inactive Member Role Status Dates PHYSICIAN NO FAMILY Primary Care Provider Active Start: December 15, 2024 End: December 15, 2024 Minda Carrera APRN Attending Provider Active Start: December 15, 2024 End: December 15, 2024 Team Status: Inactive Member Role Status Dates Minda Carrera APRN Attending Provider Active Start: December 15, 2024 End: December 15, 2024 Team Status: Active Member Role Status Dates NON STAFF Primary Care Provider Active Team Status: Inactive Member Role Status Dates Nayla Leblanc APRN Attending Provider Active Start: January 15, 2025 End: January 15, 2025 NON STAFF Primary Care Provider Active Start: January 15, 2025 End: January 15, 2025 Team Status: Inactive Member Role Status Dates NON STAFF Primary Care Provider Active Start: April 17, 2025 End: April 17, 2025 Cinthia Fields DO Attending Provider Active Star t: April 17, 2025 End: April 17, 2025 INFORMATION SOURCE (unrecogn ized section and content) DATE CREATED AUTHOR 02/03/2022 [facility] DATE CREATED AUTHOR AUTHOR'S ORGANIZ ATION 02/21/2022 [facility] DATE CREATED AUTHOR AUTHOR'S ORGANIZ ATION 03/24/2022 [facility] DATE CREATED AUTHOR AUTHOR'S ORGANIZ ATION 12/02/2022 [facility] DATE CREATED AUTHOR AUTHOR'S ORGANIZ ATION 03/09/2023 [facility] DATE CREATED AUTHOR AUTHOR'S ORGANIZ ATION 12/24/2023 [facility] DATE CREATED AUTHOR AUTHOR'S ORGANIZ ATION 03/11/2024 [facility] DATE CREATED AUTHOR AUTHOR'S ORGANIZ ATION 03/18/2024 [facility] DATE CREATED AUTHOR AUTHOR'S ORGANIZ ATION 10/27/2024 [facility] DATE CREATED AUTHOR AUTHOR'S ORGANIZ ATION 12/17/2024 [facility] Ordered Prescriptions (unrec ognized section [...] 1047 (Given - Provid er: Valerie Davila, BLOW MOLD TECHNICIAN - MOTION PICTURE ACTOR) diphenhydrAMINE (BENADRYL) injection 12.5 mg (COMPLETED) 12.5 [...] BE BASED ON THE PRIMARY CLINICAL RECORDS. [employer] provides no warranty or guarantee of the accuracy or completeness of information in this document.
[2025-04-20 11:33] LABS: Thyroid Stimulating Hormone 2.598 uIU/mL (0.358-3.740)
== END 2025-04-20 10:14 | disposition home or self-care (01) ==
LOC: LAB 10:14
PROVIDERS: Visit Provider Family Medicine
DX: Z00.00 Encounter for general adult medical examination without abnormal findings (principal); E03.9 Hypothyroidism, unspecified
CPT/HCPCS: 36415; 83036; 84443